=== PATIENT | male | born 1960 | race Caucasian/White ===

== ENCOUNTER 2017-12-07 15:10 | Emergency (ER) | payer MEDICAID, SELFPAY ==
[2017-12-07 15:11] VITALS: BP 118/90; PULSE 104; PULSE 105; RESP 26; TEMP 36.4; O2SAT 100; BMI 23.2
[2017-12-07 15:25] VITALS: O2SAT 100
--- NOTE | 2017-12-07 15:36 | EKG12_ITS ---
Test Reason : Blood Pressure : / mmHG Vent. Rate : 105 BPM Atrial Rate : 105 BPM P-R Int : 198 ms QRS Dur : 100 ms QT Int : 362 ms P-R-T Axes : 086 -60 105 degrees QTc Int : 478 ms Sinus tachycardia Left anterior fascicular block Septal infarct , age undetermined T wave abnormality, consider lateral ischemia Abnormal ECG Confirmed by PRETTY BARLOW, HIRA ([id number]), publications editor AMADOR EDMONDS ([id number] on 12/10/2017 2:58:57 PM Referred By: KG Confirmed By:HIRA OLSEN MD
--- NOTE | 2017-12-07 15:40 | RAD_ITS ---
STUDY: X-RAY CHEST REASON FOR EXAM: Male, 57 years old. Increasing shortness of breath and weakness. Recent discharge from hospital for pneumonia. Past medical history of atrial fibrillation, hypertension, myocardial infarction and COPD. TECHNIQUE: 1 view COMPARISON: Prior PA and lateral chest of October 17, 2016, portable chest of October 12, 2016 and September 25, 2016. FINDINGS: The lung crews are well-expanded without major consolidation, focal atelectasis or a substantial pleural effusion. Reduced pulmonary venous distention from the prior exam. Normal size heart. Normal mediastinum and alberto. Normal visualized pulmonary arteries. There is atherosclerotic calcification of the aortic arch with tortuosity. Normal visualized thoracic spine. Normal visualized ribs, clavicles, and shoulders. There is no demonstrated abnormality of the visualized soft tissue structures of the upper abdomen. RAD/Chest 1 View (Portable) IMPRESSION: Negative for consolidation, focal atelectasis or a substantial pleural effusion. Reduced cardiac size and venous congestion from the prior exam. Atherosclerotic changes of the thoracic aorta. Electronically Signed: Maria G Díaz MD at 16:12 EST , Service support ,
[2017-12-07 15:44] VITALS: O2SAT 100
--- NOTE | 2017-12-07 15:44 | ED.VISSUMM ---
- ER Visit Summary Date of Service: 12/07/17 Chief Complaint: Shortness of breath History of Present Illness: The patient is a 57 M significant past medical history of CAD with 10-15 cardiac stents prior [place] prior CHF ejection fraction of 15%, COPD normally on 3 L and a history of A. fib. Patient is from [place] and was just released from the hospital air within the last 2 weeks for CHF and pneumonia. He is supposed to get an upcoming defibrillator and has been wearing a LifeVest. Patient states he feels more short of breath. This is been coming the last several days. He denies any fevers. He denies any nausea or vomiting. No melena. He denies any chest pain. He has never had a DVT or PE. No new calf pain or leg swelling. He has chronic pedal edema. And has been increasing his Lasix recently. Physical Examination: Middle-aged male who smells heavily of tobacco. Vital signs are stable afebrile. Currently his pulse ox limb in the room without oxygen is 100%. He is in no distress. HEENT exam unremarkable. Neck nontender no JVD. No lymphadenopathy. Lungs coarse breath sounds bilaterally. Few scattered wheezes. No rales. No rhonchi. Heart regular rhythm rate about 105. No murmur. Abdomen is soft and nontender. Normal bowel sounds. No peritoneal signs. Moving all 4 extremities. He has trace bilateral ankle edema. No calf tenderness. No cords. Neurologically is awake and alert without focal deficits. Skin exam unremarkable. Back exam unremarkable. Test Results: CBC shows a white count of 6 an H&H of 9 and 33. His last hemoglobin here was 12 but that was sometime ago. He denies any melena. Electrolytes unremarkable normal BUN and creatinine and gap. Troponin is slightly elevated 0.09 but he is a history of a cardiomyopathy. His BNP is 807 consistent with mild failure. And his EKG sinus tachycardia rate of 105 with no acute signs of ischemia with T-wave inversion in lead V6. Currently have no old EKG available for comparison. Chest x-ray shows chronic changes with cardiomegaly and no significant acute processes of the mild vascular congestion read by myself the radiologist. Emergency Department Course and Treatment: Undergo a cardiac workup. To be treated with a DuoNeb aerosol Treatment Plan: Repeat exam patient is doing much better at 1850. His wheezing is resolved at the aerosols. I long discussion with the patient and his brother and [id number] at bedside. He absolutely does not want to be admitted. Currently on room air is 99-100%. Her a lot of social issues going on with his move from [place] to [place]. He is on [facility] Medicaid and that has been transferred over yet. Currently he needs a much of his meds refilled which are writing for many of them. There is also need to do a primary care physician in the area. He knows return to ER if worse and I gladly admit him. Disposition: Discharge Impression: Dyspnea secondary to exacerbation of COPD and CHF. Acute on chronic anemia. History of COPD History of the, [place], multiple cardiac stents, history of, history of cardiomyopathy. This note was generated with [employer] dictation software. It may contain incorrect words, spelling, and punctuation that were not noted in review of the chart prior to signing ED Disposition - Plan for ED Patient: Chief Complaint: Shortness of Breath Referrals: Care Physician,No Primary [Primary Care Provider] -
[2017-12-07 15:46] VITALS: PULSE 100; RESP 24
[2017-12-07] MEDS: Ipratropium/Albuterol Sulfate 3 ML AMPUL.NEB INHALATION (15:46)
--- NOTE | 2017-12-07 15:48 | ED.DCSUM_ITS ---
- ER Visit Summary Date of Service: 12/07/17 Chief Complaint: Shortness of breath History of Present Illness: The patient is a 57 M significant past medical history of CAD with 10-15 cardiac stents prior [place] prior CHF ejection fraction of 15%, COPD normally on 3 L and a history of A. fib. Patient is from [place] and was just released from the hospital air within the last 2 weeks for CHF and pneumonia. He is supposed to get an upcoming defibrillator and has been wearing a LifeVest. Patient states he feels more short of breath. This is been coming the last several days. He denies any fevers. He denies any nausea or vomiting. No melena. He denies any chest pain. He has never had a DVT or PE. No new calf pain or leg swelling. He has chronic pedal edema. And has been increasing his Lasix recently. Physical Examination: Middle-aged male who smells heavily of tobacco. Vital signs are stable afebrile. Currently his pulse ox limb in the room without oxygen is 100%. He is in no distress. HEENT exam unremarkable. Neck nontender no JVD. No lymphadenopathy. Lungs coarse breath sounds bilaterally. Few scattered wheezes. No rales. No rhonchi. Heart regular rhythm rate about 105. No murmur. Abdomen is soft and nontender. Normal bowel sounds. No peritoneal signs. Moving all 4 extremities. He has trace bilateral ankle edema. No calf tenderness. No cords. Neurologically is awake and alert without focal deficits. Skin exam unremarkable. Back exam unremarkable. Test Results: CBC shows a white count of 6 an H&H of 9 and 33. His last hemoglobin here was 12 but that was sometime ago. He denies any melena. Electrolytes unremarkable normal BUN and creatinine and gap. Troponin is slightly elevated 0.09 but he is a history of a cardiomyopathy. His BNP is 807 consistent with mild failure. And his EKG sinus tachycardia rate of 105 with no acute signs of ischemia with T-wave inversion in lead V6. Currently have no old EKG available for comparison. Chest x-ray shows chronic changes with cardiomegaly and no significant acute processes of the mild vascular congestion read by myself the radiologist. Emergency Department Course and Treatment: Undergo a cardiac workup. To be treated with a DuoNeb aerosol Treatment Plan: Repeat exam patient is doing much better at 1850. His wheezing is resolved at the aerosols. I long discussion with the patient and his brother and [id number] at bedside. He absolutely does not want to be admitted. Currently on room air is 99-100%. Her a lot of social issues going on with his move from [place] to [place]. He is on [facility] Medicaid and that has been transferred over yet. Currently he needs a much of his meds refilled which are writing for many of them. There is also need to do a primary care physician in the area. He knows return to ER if worse and I gladly admit him. Disposition: Discharge Impression: Dyspnea secondary to exacerbation of COPD and CHF. Acute on chronic anemia. History of COPD History of the, [place], multiple cardiac stents, history of, history of cardiomyopathy. This note was generated with [employer] dictation software. It may contain incorrect words, spelling, and punctuation that were not noted in review of the chart prior to signing ED Disposition - Plan for ED Patient: Chief Complaint: Shortness of Breath Referrals: Care Physician,No Primary [Primary Care Provider] -
--- NOTE | 2017-12-07 15:58 | ED.RN ---
pt from [place] unable to verify medications. does not have a list and family at bedside does not have list. pt just got into town on sunday
[2017-12-07 16:05] LABS: Absolute Lymphocyte Count 1.27 X10^3/ul (0.83-4.51); Absolute Neutrophil Count 3.8 X10^3/uL (2.0-7.7); Basophil# 0.04 X10^3/uL; Basophil% 0.7 % (0-1); Eosinophils% 3.3 % (0-5); Hematocrit 33.4 % (40-54); Hemoglobin 9.7 g/dl (13.0-16.5); Lymphocyte # 1.27 X10^3/ul (4.0); Lymphocyte % 21.2 % (19-41); Mean Corpuscular Hgb 21.7 pg (27.0-32.0); Mean Corpuscular Volume 74.6 fL (80-94); Mean Platelet Vol. 8.5 fl (6.2-12.0); Monocyte# 0.59 X10^3/uL; Monocyte% 9.9 % (0-10); Neutrophil # 3.83 X10^3/uL (2.7-7.7); Neutrophil % 64.1 % (47-70); POSITIVE COUNT NO; POSITIVE DIFFERENTIAL NO; Platelet Count 346 K/mm3 (150-450); RBC Distribution Width CV 20.1 % (11.6-14.6); RBC Distribution Width SD 54.9 fl (35.1-43.9); Red Blood Count 4.48 M/mm3 (4.6-6.2)
[2017-12-07 16:06] LABS: Differential Indicated SCAN CRITERIA MET; POSITIVE MORPHOLOGY YES
[2017-12-07 16:22] LABS: Anion Gap 6 (5-15); BUN 20 mg/dL (7-18); BUN/Creat Ratio 27.3 RATIO (10-20); Calcium,Total 8.3 mg/dL (8.5-10.1); Chloride 101 mmol/L (98-107); Creatinine, Serum 0.73 mg/dL (0.70-1.30); EST Glomerular Filtration Rate 116 mL/min (>60); Est Glom Filt Rate - Afr Amer 141 mL/min (>60); Estimated Creatinine Clearance 105.41 ml/min; Glucose 77 mg/dL (74-106); Potassium 5.1 mmol/L (3.5-5.1); Sodium Level 135 mmol/L (136-145)
[2017-12-07 16:25] LABS: Differential Comment SCANNED
[2017-12-07 16:33] LABS: BNP,B-Type NATRIURETIC PEPTIDE 807.7 pg/mL (0-100)
[2017-12-07 17:35] VITALS: BP 92/74; PULSE 108; RESP 20; O2SAT 98
--- NOTE | 2017-12-07 19:01 | ED.DEP ---
ED Disposition - Plan for ED Patient: Disposition: Home or Assisted Living Chief Complaint: Shortness of Breath Instructions: ED CHF General, ED COPD Flare Prescriptions: Albuterol Sulfate [Proventil Hfa] 6.7 gm IH Q2H PRN PRN #1 hfa.[email or web address] PRN Reason: Wheezing Potassium Chloride [K-Dur] 20 meq PO DAILY #30 tab Prednisone [Deltasone] 40 mg PO DAILY 10 Days tab Furosemide [Lasix] 40 mg PO BIDLX.TCU #60 tab Referrals: Ling Leal [NON-STAFF] - As soon as possible Additional Instructions: Has follow-up with primary care physician locally as soon as possible. Follow [facility] clinic across the street from the hospital in the clinic specifically set up with people financial need they may be of assistance. Also for free to call the hospital on Sunday and discuss with social services assistant any assistance he may be I will give you for getting your insurance transfer to getting her medications filled. Prednisone 40 mg a day for 10 days. Proventil inhaler 1-2 puffs every 2 hours as needed for wheezing. Lasix 40 mg twice a day. Return if feeling worse.
--- NOTE | 2017-12-07 19:06 | DCINST.ED_ITS ---
ED Disposition - Plan for ED Patient: Disposition: Home or Assisted Living Chief Complaint: Shortness of Breath Instructions: ED CHF General, ED COPD Flare Prescriptions: Albuterol Sulfate [Proventil Hfa] 6.7 gm IH Q2H PRN PRN #1 hfa.[email or web address] PRN Reason: Wheezing Potassium Chloride [K-Dur] 20 meq PO DAILY #30 tab Prednisone [Deltasone] 40 mg PO DAILY 10 Days tab Furosemide [Lasix] 40 mg PO BIDLX.TCU #60 tab Referrals: Ling Leal [NON-STAFF] - As soon as possible Additional Instructions: Has follow-up with primary care physician locally as soon as possible. Follow [facility] clinic across the street from the hospital in the clinic specifically set up with people financial need they may be of assistance. Also for free to call the hospital on Sunday and discuss with director of social work any assistance he may be I will give you for getting your insurance transfer to getting her medications filled. Prednisone 40 mg a day for 10 days. Proventil inhaler 1-2 puffs every 2 hours as needed for wheezing. Lasix 40 mg twice a day. Return if feeling worse.
[2017-12-07 19:14] VITALS: BP 116/86; PULSE 104; RESP 18; O2SAT 97
--- NOTE | 2017-12-07 20:37 | ED.RN ---
prior to international first officer verified with dr. day if oxygen was needed tonight, was unaware if pt could get d/t medical insurance. pt wanting to check tomorrow not tonight. dr. day aware
== END 2017-12-07 19:14 | disposition home or self-care (01) ==
PROVIDERS: Emergency Provider Emergency Medicine
DX: R06.00 Dyspnea, unspecified (principal); J44.1 Chronic obstructive pulmonary disease with (acute) exacerbation; I50.9 Heart failure, unspecified; D53.9 Nutritional anemia, unspecified; I25.2 Old myocardial infarction; I42.9 Cardiomyopathy, unspecified; I25.10 Atherosclerotic heart disease of native coronary artery without angina pectoris; I48.91 Unspecified atrial fibrillation; I10 Essential (primary) hypertension; Z95.5 Presence of coronary angioplasty implant and graft; Z87.01 Personal history of pneumonia (recurrent); F17.200 Nicotine dependence, unspecified, uncomplicated; Z79.82 Long term (current) use of aspirin; Z79.02 Long term (current) use of antithrombotics/antiplatelets; Z79.899 Other long term (current) drug therapy
CPT/HCPCS: 71045; 80048; 83880; 84484; 85025; 93005; 94640; 99284; A4216

== ENCOUNTER 2017-12-10 22:56 | Observation (INO) | payer MEDICAID, SELFPAY ==
[2017-12-10 22:57] VITALS: BP 158/95; PULSE 111; RESP 28; TEMP 36.5; O2SAT 100; BMI 26.4
--- NOTE | 2017-12-10 23:02 | EKG12_ITS ---
Test Reason : SHORTNESS OF BREATH Blood Pressure : / mmHG Vent. Rate : 112 BPM Atrial Rate : 112 BPM P-R Int : 182 ms QRS Dur : 100 ms QT Int : 356 ms P-R-T Axes : 075 -55 116 degrees QTc Int : 485 ms Sinus tachycardia Left axis deviation Septal infarct , age undetermined T wave abnormality, consider lateral ischemia Abnormal ECG Confirmed by PRETTY BARLOW, HIRA ([id number]), science editor AMADOR EDMODNS ([id number]) on 12/12/2017 3:36:16 PM Referred By: VASILE Confirmed By:HIRA OLSEN MD
--- NOTE | 2017-12-10 23:05 | RAD_ITS ---
STUDY: X-RAY CHEST REASON FOR EXAM: Male, 57 years old. Respiratory distress. TECHNIQUE: Single AP portable view of the chest. COMPARISON: 07 December 2017 FINDINGS: Chronic interstitial markings are present extending to the bases. No focal consolidation is evident. There is no demonstrated pleural abnormality. There is borderline cardiomegaly. Normal mediastinum and alberto. Normal visualized pulmonary arteries. There is atherosclerotic calcification of the aortic arch with tortuosity. Normal visualized thoracic spine. Normal visualized ribs, clavicles, and shoulders. There is no demonstrated abnormality of the visualized soft tissue structures of the upper abdomen. RAD/Chest 1 View (Portable) IMPRESSION: No evidence of focal consolidation or acute process. Electronically Signed: Noel Saha DO at 23:23 EDT , Service support ,
[2017-12-10 23:14] LABS: Absolute Lymphocyte Count 0.56 X10^3/ul (0.83-4.51); Absolute Neutrophil Count 7.2 X10^3/uL (2.0-7.7); Basophil# 0.04 X10^3/uL; Basophil% 0.5 % (0-1); Eosinophil# 0.02 X10^3/uL; Eosinophils% 0.2 % (0-5); Hematocrit 31.9 % (40-54); Hemoglobin 9.3 g/dl (13.0-16.5); Lymphocyte # 0.56 X10^3/ul (4.0); Lymphocyte % 6.9 % (19-41); Mean Corp Hgb Conc 29.2 g/gl (32-36); Mean Corpuscular Hgb 21.7 pg (27.0-32.0); Mean Corpuscular Volume 74.5 fL (80-94); Mean Platelet Vol. 8.4 fl (6.2-12.0); Monocyte# 0.32 X10^3/uL; Monocyte% 3.9 % (0-10); Neutrophil # 7.17 X10^3/uL (2.7-7.7); Platelet Count 371 K/mm3 (150-450); RBC Distribution Width SD 54.2 fl (35.1-43.9); Red Blood Count 4.28 M/mm3 (4.6-6.2); White Blood Count 8.2 K/mm3 (4.4-11.0)
[2017-12-10 23:16] LABS: International Normalized Ratio 1.2; Prothrombin Time (Protime)PT. 15.2 SECONDS (11.7-14.9)
[2017-12-10 23:18] LABS: Differential Indicated SCAN CRITERIA MET; POSITIVE COUNT NO; POSITIVE DIFFERENTIAL YES; POSITIVE MORPHOLOGY YES
[2017-12-10 23:25] LABS: Anion Gap 9 (5-15); BUN 17 mg/dL (7-18); BUN/Creat Ratio 26.9 RATIO (10-20); Calcium,Total 8.6 mg/dL (8.5-10.1); Chloride 105 mmol/L (98-107); Creatinine, Serum 0.63 mg/dL (0.70-1.30); EST Glomerular Filtration Rate 138 mL/min (>60); Est Glom Filt Rate - Afr Amer 167 mL/min (>60); Estimated Creatinine Clearance 134.46 ml/min; Glucose 117 mg/dL (74-106); Sodium Level 136 mmol/L (136-145)
[2017-12-10 23:30] LABS: Allen Test POS; Base Excess 2 mmol/L (-2 to +2); Bicarbonate 25.6 mmol/L (22-26); Blood Gas Specimen Type ART; EPAP 5; FI02 2317; IPAP 14; PO2 138 mmHG (75-100); RR 12; SITE R Radial; SO2 99 % (95-99); Time Given 2317; Total Carbon Dioxide 27 mmol/L; pCO2 32.7 mmHg (35-45)
[2017-12-10 23:36] LABS: Anisocytosis 2+; Differential Comment SCAN; Hypochromasia 1+; Microcytosis 1+; Polychromasia 1+
[2017-12-10] MEDS: Succinylcholine Chloride 200 MG/10 ML Vial 100 MG IV (23:37)
[2017-12-10] MEDS: Etomidate 20 MG/10 ML Vial IV (23:37)
[2017-12-10 23:47] LABS: BNP,B-Type NATRIURETIC PEPTIDE 1576.8 pg/mL (0-100)
[2017-12-10] MEDS: Propofol 10MG/Ml 1,000 MG/100 ML Bottle 2.585 MG CONT INF (23:47)
[2017-12-10 23:48] LABS: Lactic Acid 1.6 mmol/L (0.4-2.0)
[2017-12-10] MEDS: Midazolam 2 MG/2 ML Syringe IV (23:57)
[2017-12-11] VITALS (56 sets, daily range): BP systolic 91–150; BP diastolic 58–139; PULSE 80–118; RESP 13–33; TEMP 36.2–37.2; O2SAT 99–100; BMI 20.5
--- NOTE | 2017-12-11 00:01 | RAD_ITS ---
STUDY: X-RAY CHEST REASON FOR EXAM: Male, 57 years old. ET and OG tube placement TECHNIQUE: Single AP portable view of the chest. COMPARISON: 12/10 2017 chest x-ray FINDINGS: There is an endotracheal tube present through 0.5 cm above the zoraida and there is an NG tube present just past the gastroesophageal junction. The lungs are clear and expanded. There is no demonstrated pleural abnormality. There is mild cardiac enlargement. Normal mediastinum and alberto. Normal visualized pulmonary arteries. There is atherosclerotic tortuosity of the aortic arch and descending thoracic aorta. There are diffuse degenerative changes of the visualized thoracic spine. Normal visualized ribs, clavicles, and shoulders. There is no demonstrated abnormality of the visualized soft tissue structures of the upper abdomen. RAD/Chest 1 View (Portable) IMPRESSION: The NG tube is just past the gastroesophageal junction and could be advanced 5 to 10 cm. Endotracheal tube in satisfactory position. Cardiomegaly. Electronically Signed: Elizabeth Welsh MD at 1:01 EDT Tel , Service support ,
[2017-12-11] MEDS: Midazolam 2 MG/2 ML Syringe IV (00:15)
[2017-12-11] MEDS: Furosemide 40 MG/4 ML Vial IV ×3 (00:19→17:42)
[2017-12-11] MEDS: MethylPREDNISolone 125 MG/2 ML Vial IV (00:19)
--- NOTE | 2017-12-11 01:25 | PCM.HP.STD ---
Problem List (1) SOB (shortness of breath) Status: Acute (2) CHF (congestive heart failure) Status: Chronic Qualifiers: Heart failure type: unspecified (3) CAD (coronary artery disease) Status: Chronic (4) COPD (chronic obstructive pulmonary disease) Status: Acute Qualifiers: COPD type: COPD with acute exacerbation Qualified Code(s): J44.1 - Chronic obstructive pulmonary disease with (acute) exacerbation (5) Tobacco abuse Status: Chronic (6) Medical non-compliance Status: Chronic History of Present Illness Date of Admission: 12/11/17 Chief Complaint: shortness of breath The patient is a 57 year old male patient with a history of COPD, CHF, CAD and tobacco abuse who presents to the ER by squad. It is reported that his family member found him to be in respiratory distress. The patient had been seen in the ER three days ago and was to have home oxygen setup but apparently this did not happen. The patient is sedated and intubated and all history I have is from medical records. He was working hard to breath and becoming fatigued and the ER physician decided to intubate the patient. He will be admitted to the ICU for acute respiratory failure. Prior to intubation is was reported by nursing staff that the patient had been answering questions appropriately, although he was getting more tired. Past Medical History Past Medical History (Chronic Problems): Chronic Problems CHF (congestive heart failure) (Chronic) CAD (coronary artery disease) (Chronic) Tobacco abuse (Chronic) Medical non-compliance (Chronic) Ischemic cardiomyopathy (Chronic) Allergies No Known Allergies Allergy (Verified 12/10/17 23:03) Home Medications: Ambulatory Orders Medication Instructions Recorded Acetaminophen [Tylenol Tablet] 650 mg PO Q6H PRN PRN #0 tablet 09/26/16 Albuterol Aerosols [Ventolin 2.5 mg INHALATION Q2H PRN PRN #30 09/26/16 Aerosols] vial.neb. Albuterol Sulfate [Ventolin Hfa] 18 gm IH Q4H PRN PRN #1 hfa.aer.ad 09/26/16 Amlodipine [Norvasc] 5 mg PO DAILY #30 tablet 09/26/16 Aspirin [Aspirin, Baby] 81 mg PO DAILY@0800 #30 tab.chew 09/26/16 Atorvastatin Calcium [Lipitor] 80 mg PO QHS #30 tablet 12/27/16 Carvedilol [Coreg (Beta Fletcher)] 6.25 mg PO BID #60 tablet 09/26/16 Clopidogrel Bisulfate [Plavix] 75 mg PO DAILY #30 tablet 09/26/16 Furosemide [Lasix] 40 mg PO DAILY #30 tablet 09/26/16 Gabapentin [Neurontin] 600 mg PO DAILY #30 tablet 09/26/16 Isosorbide Mononitrate [Imdur] 60 mg PO BID #60 tablet 09/26/16 Losartan Potassium [Cozaar] 25 mg PO DAILY #30 tablet 09/26/16 Potassium Chloride [K-Dur] 20 meq PO DAILY #10 tablet 09/26/16 Levofloxacin [Levaquin] 750 mg PO DAILY@0600 #5 tablet 10/20/16 Albuterol Sulfate [Proventil Hfa] 6.7 gm IH Q2H PRN PRN #1 hfa.aer.ad 12/07/17 Furosemide [Lasix] 40 mg PO BIDLX.TCU #60 tab 12/07/17 Potassium Chloride [K-Dur] 20 meq PO DAILY #30 tab 12/07/17 Prednisone [Deltasone] 40 mg PO DAILY 10 Days tab 12/07/17 Surgical History: - - heart stents Smoking Status: Current every day smoker - *Family History Maternal History Items: Heart Disease Paternal History Items: Heart Disease Review of Systems Cardiovascular: Denies: Palpitations Respiratory: Reports: Shortness of breath at rest Gastrointestinal: Denies: Vomiting Unable to obtain accurate/complete ROS d/t: patient is sedated and intubated and unable to give a history VTE Information - Inpt Only VTE Present on Admission: No VTE Mechan Device Prophylaxis: None VTE Pharm Prophylaxis ordered?: Yes - Physical Exam General: - - sedated and intubated HEENT: Atraumatic, Normocephalic Neck: Supple Lungs: No rhonchi, No wheeze, No rales, Diminished Cardiovascular: Regular rate, Regular Rhythm, Normal S1, Normal S2, No murmurs Abdomen: Bowel Sounds Present, Soft Extremities: No edema Skin: No rashes Musculoskeletal: No Tenderness to Palpation of Joints or Extremities Vital Signs Temp Pulse Resp BP Pulse Ox 98.9 F 101 H 23 H 114/74 100 12/11/17 00:46 12/11/17 00:46 12/11/17 00:46 12/11/17 00:46 12/11/17 00:46 Oxygen Delivery Method Mechanical Ventilator Weight: 190 lb Body Mass Index (BMI) 26.4 Microbiology Past 72 Hours 12/11/17 00:54 Influenza Types A,B Direct FA (SHARON) - Final Mucosa - Nasopharyngeal Laboratory Tests Past 24 Hrs 12/10/17 12/10/17 12/10/17 23:00 23:00 23:00 WBC 8.2 RBC 4.28 L Hgb 9.3 L Hct 31.9 L MCV 74.5 L MCH 21.7 L MCHC 29.2 L RDW 20.0 H RDW Differential 54.2 H Plt Count 371 MPV 8.4 Immature Gran % (Auto) 0.500 Neut % (Auto) 88.0 H Lymph % (Auto) 6.9 L Stoddard % (Auto) 3.9 Eos % (Auto) 0.2 Baso % (Auto) 0.5 Absolute Neuts (auto) 7.2 Absolute Lymphs (auto) 0.56 L Total Counted Not Reportable Differential Comment SCAN Polychromasia 1+ Hypochromasia 1+ Anisocytosis 2+ Microcytosis 1+ PT 15.2 H INR 1.2 Specimen Type Sample Site pH Bicarbonate Actual POC Total CO2 Base Excess O2 Saturation O2 % ABG pCO2 ABG pO2 Alexis Test Respiration Rate O2 Delivery Device EPAP IPAP Blood Gas Notified Whom Blood Gas Notified Time Sodium 136 Potassium 5.0 Chloride 105 Carbon Dioxide 22.0 Anion Gap 9 BUN 17 Creatinine 0.63 L Estim Creat Clear Calc 134.46 Est GFR (MDRD) Af Amer 167 Est GFR (MDRD) Non-Af 138 BUN/Creatinine Ratio 26.9 H Glucose 117 H Lactic Acid Calcium 8.6 Troponin I 0.08 H B-Natriuretic Peptide 12/10/17 12/10/17 12/10/17 23:00 23:10 23:28 WBC RBC Hgb Hct MCV MCH MCHC RDW RDW Differential Plt Count MPV Immature Gran % (Auto) Neut % (Auto) Lymph % (Auto) Stoddard % (Auto) Eos % (Auto) Baso % (Auto) Absolute Neuts (auto) Absolute Lymphs (auto) Total Counted Differential Comment Polychromasia Hypochromasia Anisocytosis Microcytosis PT INR Specimen Type ART Sample Site R Radial pH 7.50 H Bicarbonate Actual 25.6 POC Total CO2 27 Base Excess 2 O2 Saturation 99 O2 % 2317 ABG pCO2 32.7 L ABG pO2 138 H Alexis Test POS Respiration Rate 12 O2 Delivery Device Bi / C PAP EPAP 5 IPAP 14 Blood Gas Notified Whom ED Blood Gas Notified Time 231 Sodium Potassium Chloride Carbon Dioxide Anion Gap BUN Creatinine Estim Creat Clear Calc Est GFR (MDRD) Af Amer Est GFR (MDRD) Non-Af BUN/Creatinine Ratio Glucose Lactic Acid 1.6 Calcium Troponin I B-Natriuretic Peptide 1576.8 H Assessment/Plan Acute Respiratory Failure Chronic Problems CHF (congestive heart failure) (Chronic) CAD (coronary artery disease) (Chronic) COPD (chronic obstructive pulmonary disease) (Chronic) Tobacco abuse (Chronic) Medical non-compliance (Chronic) Ischemic cardiomyopathy (Chronic) Plan - admit to ICU - Consult Dr Ahmadi for ICU management - CBC, BMP in am - solumedrol 40mg IV q 8hrs - cxr daily while on vent - IV normal saline at 100 cc/hr - LMWH for DVT prophylaxis Code Visit Inpatient E&M: 51307 Init Hosp L3
--- NOTE | 2017-12-11 02:06 | ED.VISSUMM ---
- ER Visit Summary Date of Service: 12/11/17 Chief Complaint: Shortness of breath History of Present Illness: The patient is a 57 M presenting by EMS for shortness of breath. EMS was called by his brother for respiratory distress. He is supposed to be on home O2 3 L. He states that his insurance has not kicked in he does not have an oxygen tank. He has a history of COPD, CHF, cardiomyopathy, A. fib. He is a smoker. He denies chest pain or fever. Physical Examination: Vitals are stable. Patient is afebrile. Alert moderate acute distress. HEENT exam is unremarkable. Neck is supple. Lungs are diminished bilaterally. Retractions and accessory muscle use. Heart is regular and tachycardic Abdomen is soft nontender nondistended. Extremities are unremarkable. Skin is warm and dry. No focal neurologic deficit. Remainder of exam is unremarkable. Emergency Department Course and Treatment: Patient on arrival was on CPAP per EMS. He was changed to BiPAP. He continues to have increased work of breathing and tachypnea. Chest x-ray shows no acute process. EKG sinus tachycardia rate of 112 with lateral T-wave inversion. CBC normal except hemoglobin 9.3. Chemistries unremarkable. Troponin is 0.08. BNP is 1576.8. Lactic acid is 1.6. Due to respiratory distress with no improvement with noninvasive ventilation, discussed intubation with the patient. He is agreeable with this plan. He was intubated using RSI. He was given succinylcholine and etomidate. 7.5 ET tube was placed through the cords using glidscope. Equal breath sounds bilaterally. Good color change. He was given Lasix IV and Solu-Medrol IV. Discussed with Dr. Ahmadi and Dr. Henry and patient will be admitted to ICU. Disposition: Admission Impression: Respiratory failure, CHF exacerbation, COPD exacerbation This note was generated with [employer] dictation software. It may contain incorrect words, spelling, and punctuation that were not noted in review of the chart prior to signing ED Disposition - Plan for ED Patient: Chief Complaint: Shortness of Breath
[2017-12-11] MEDS: Propofol 10MG/Ml 1,000 MG/100 ML Bottle 2.585 MG CONT INF ×4 (02:43→22:57)
--- NOTE | 2017-12-11 03:07 | ED.RN ---
pt brother called [facility] for pt. name is cheli. phone number is [phone].
--- NOTE | 2017-12-11 04:55 | CON.PCM_ITS ---
Reason for Consult Date of Consultation: 12/11/17 Reason for Consultation: Respiratory failure History of Present Illness: The patient is a 57-year-old male, with a history as outlined below, who presented to the emergency department on December 11 with complaints of shortness of breath. Per documentation, EMS was contacted after the patient was found to be in respiratory distress by his brother. The patient is reportedly prescribed home supplemental oxygen, but is currently noncompliant with its use due to a lack of insurance coverage. The patient was just evaluated in the emergency department on December 07 after presenting there with shortness of breath also. At that time, the patient was treated with aerosols and noted symptom improvement. It was recommended that he be admitted to the hospital. However, the patient refused. The patient was also hospitalized twice in October 2016 with breathing related issues. Surface echocardiogram completed in August 2016 revealed a mildly dilated LV with severe segmental systolic dysfunction and an ejection fraction of 15%. The patient did have evidence of a left to right interatrial shunt and a right ventricular systolic pressure estimated to be 39 mmHg. On presentation to the emergency department, the patient was noted to be afebrile, tachycardic and mildly hypertensive. He was tachypneic and requiring the use of noninvasive positive pressure ventilation. Initial laboratory evaluation revealed no evidence of a leukocytosis. INR was within normal limits. Chemistry profile was largely within normal limits. Serum lactate was normal. Troponin was mildly elevated to 0.08. BNP was elevated to 1576. MRSA screen was positive. Despite the implementation of BiPAP therapy, the patient remained in respiratory distress. Therefore, the decision was made to proceed with intubation. Plain film chest x-ray revealed no acute cardiopulmonary process. The patient did receive IV Lasix and IV Solu-Medrol while in the emergency department. He was subsequently admitted to the medical intensive care unit for ongoing management. Per the patient's brother, the patient has a history of ischemic cardiomyopathy and was following with a campaign consultant in [place], who has since retired. He has not been routinely followed by a campaign consultant recently. He has been traveling back and forth from [place] to [place], where his brother resides. His brother states that he was discharged from a hospital in [place] 10 days ago and then traveled here to [place], where he plans to stay indefinitely. The patient does have a reported history of tobacco abuse, questionable illicit drug use and a history of alcohol dependence. He has been inherently noncompliant previously. Past Medical History Past Medical History (Chronic Problems): Chronic Problems CHF (congestive heart failure) (Chronic) CAD (coronary artery disease) (Chronic) Tobacco abuse (Chronic) Medical non-compliance (Chronic) Ischemic cardiomyopathy (Chronic) Allergies No Known Allergies Allergy (Verified 12/10/17 23:03) Home Medications: Ambulatory Orders Medication Instructions Recorded Acetaminophen [Tylenol Tablet] 650 mg PO Q6H PRN PRN #0 tablet 09/26/16 Albuterol Aerosols [Ventolin 2.5 mg INHALATION Q2H PRN PRN #30 09/26/16 Aerosols] vial.neb. Albuterol Sulfate [Ventolin Hfa] 18 gm IH Q4H PRN PRN #1 hfa.[email or web address] 09/26/16 Amlodipine [Norvasc] 5 mg PO DAILY #30 tablet 09/26/16 Aspirin [Aspirin, Baby] 81 mg PO DAILY@0800 #30 tab.chew 09/26/16 Atorvastatin Calcium [Lipitor] 80 mg PO QHS #30 tablet 09/26/16 Carvedilol [Coreg (Beta Fletcher)] 6.25 mg PO BID #60 tablet 09/26/16 Clopidogrel Bisulfate [Plavix] 75 mg PO DAILY #30 tablet 09/26/16 Furosemide [Lasix] 40 mg PO DAILY #30 tablet 09/26/16 Gabapentin [Neurontin] 600 mg PO DAILY #30 tablet 09/26/16 Isosorbide Mononitrate [Imdur] 60 mg PO BID #60 tablet 09/26/16 Losartan Potassium [Cozaar] 25 mg PO DAILY #30 tablet 09/26/16 Potassium Chloride [K-Dur] 20 meq PO DAILY #10 tablet 09/26/16 Levofloxacin [Levaquin] 750 mg PO DAILY@0600 #5 tablet 10/20/16 Albuterol Sulfate [Proventil Hfa] 6.7 gm IH Q2H PRN PRN #1 hfa.aer.ad 12/07/17 Furosemide [Lasix] 40 mg PO BIDLX.TCU #60 tab 12/07/17 Potassium Chloride [K-Dur] 20 meq PO DAILY #30 tab 12/07/17 Prednisone [Deltasone] 40 mg PO DAILY 10 Days tab 12/07/17 Surgical History: - - heart stents Smoking Status: Current every day smoker - *Family History Maternal History Items: Heart Disease Paternal History Items: Heart Disease Review of Systems Unable to obtain accurate/complete ROS d/t: Due to current intubation and mechanical ventilation status Objective: The patient's most recent lab work, culture data and imaging studies have all been personally reviewed. Rapid influenza screen was negative. - Physical Exam General: - - Currently intubated, sedated and mechanically ventilated. Tolerating assist control mode mechanical ventilation. HEENT: Atraumatic, PERRLA, Normocephalic Oral: No Gingival or Mucosal Lesions/ Ulcerations, - - Endotracheal and OG tubes in place Neck: Supple, No Nodes, Trachea Midline Lungs: - - Mechanical breath sounds. Clear across anterior lung crews without wheezes, rales or rhonchi. Cardiovascular: Regular rate, Regular Rhythm, Normal S1, Normal S2, No murmurs, No rub noted, No Gallop Abdomen: Bowel Sounds Present, Soft, Non Tender, Non-Distended Extremities: No clubbing, No cyanosis, No edema Skin: No rashes, No breakdown Musculoskeletal: No Muscle Wasting Lymphatic: No Cervical, Supraclavicular, or Inguinal Adenopathy Neurological: - - Currently sedated with a RASS of -2. Moves all extremities spontaneously. Not following simple commands at this time. Vital Signs Temp Pulse Resp BP Pulse Ox 97.4 F L 96 20 H 128/85 H 100 12/11/17 04:43 12/11/17 04:43 12/11/17 04:43 12/11/17 04:43 12/11/17 04:43 Oxygen Delivery Method Mechanical Ventilator Weight: 146 lb 2.664 oz Body Mass Index (BMI) 20.5 Intake and Output for Last 24 Hours 12/09/17 12/10/17 12/11/17 23:59 23:59 23:59 Output Total 1900 / 1900 Balance -1900 / -1900 Laboratory Tests Past 24 Hrs 12/11/17 03:35 MRSA (PCR) Pending Labs (Last 48 Hours) 12/10/17 12/10/17 12/10/17 23:00 23:00 23:00 WBC 8.2 RBC 4.28 L Hgb 9.3 L Hct 31.9 L MCV 74.5 L MCH 21.7 L MCHC 29.2 L RDW 20.0 H RDW Differential 54.2 H Plt Count 371 MPV 8.4 Immature Gran % (Auto) 0.500 Neut % (Auto) 88.0 H Lymph % (Auto) 6.9 L Win[place] % (Auto) 3.9 Eos % (Auto) 0.2 Baso % (Auto) 0.5 Absolute Neuts (auto) 7.2 Absolute Lymphs (auto) 0.56 L Total Counted Not Reportable Differential Comment SCAN Polychromasia 1+ Hypochromasia 1+ Anisocytosis 2+ Microcytosis 1+ PT 15.2 H INR 1.2 Specimen Type Sample Site pH Bicarbonate Actual POC Total CO2 Base Excess O2 Saturation O2 % ABG pCO2 ABG pO2 Alexis Test Respiration Rate O2 Delivery Device Minute Volume Vent Mode Tidal Volume POC PEEP EPAP IPAP Blood Gas Notified Whom Blood Gas Notified Time Sodium 136 Potassium 5.0 Chloride 105 Carbon Dioxide 22.0 Anion Gap 9 BUN 17 Creatinine 0.63 L Estim Creat Clear Calc 134.46 Est GFR (MDRD) Af Amer 167 Est GFR (MDRD) Non-Af 138 BUN/Creatinine Ratio 26.9 H Glucose 117 H Lactic Acid Calcium 8.6 Magnesium Total Bilirubin AST ALT Alkaline Phosphatase Troponin I 0.08 H B-Natriuretic Peptide Total Protein Albumin MRSA (PCR) 12/10/17 12/10/17 12/10/17 23:00 23:10 23:28 WBC RBC Hgb Hct MCV MCH MCHC RDW RDW Differential Plt Count MPV Immature Gran % (Auto) Neut % (Auto) Lymph % (Auto) Win[place] % (Auto) Eos % (Auto) Baso % (Auto) Absolute Neuts (auto) Absolute Lymphs (auto) Total Counted Differential Comment Polychromasia Hypochromasia Anisocytosis Microcytosis PT INR Specimen Type ART Sample Site R Radial pH 7.50 H Bicarbonate Actual 25.6 POC Total CO2 27 Base Excess 2 O2 Saturation 99 O2 % 2317 ABG pCO2 32.7 L ABG pO2 138 H Alexis Test POS Respiration Rate 12 O2 Delivery Device Bi / C PAP Minute Volume Vent Mode Tidal Volume POC PEEP EPAP 5 IPAP 14 Blood Gas Notified Whom ED Blood Gas Notified Time 2317 Sodium Potassium Chloride Carbon Dioxide Anion Gap BUN Creatinine Estim Creat Clear Calc Est GFR (MDRD) Af Amer Est GFR (MDRD) Non-Af BUN/Creatinine Ratio Glucose Lactic Acid 1.6 Calcium Magnesium Total Bilirubin AST ALT Alkaline Phosphatase Troponin I B-Natriuretic Peptide 1576.8 H Total Protein Albumin MRSA (PCR) 12/11/17 12/11/17 12/11/17 03:35 05:50 05:50 WBC RBC Hgb Hct MCV MCH MCHC RDW RDW Differential Plt Count MPV Immature Gran % (Auto) Neut % (Auto) Lymph % (Auto) [place] % (Auto) Eos % (Auto) Baso % (Auto) Absolute Neuts (auto) Absolute Lymphs (auto) Total Counted Differential Comment Polychromasia Hypochromasia Anisocytosis Microcytosis PT INR Specimen Type Sample Site pH Bicarbonate Actual POC Total CO2 Base Excess O2 Saturation O2 % ABG pCO2 ABG pO2 Alexis Test Respiration Rate O2 Delivery Device Minute Volume Vent Mode Tidal Volume POC PEEP EPAP IPAP Blood Gas Notified Whom Blood Gas Notified Time Sodium Pending 139 Potassium Pending 4.2 Chloride Pending 103 Carbon Dioxide Pending 26.0 Anion Gap Pending 10 BUN Pending 21 H Creatinine Pending 0.61 L Estim Creat Clear Calc 122.27 Est GFR (MDRD) Af Amer Pending 173 Est GFR (MDRD) Non-Af Pending 143 BUN/Creatinine Ratio Pending 34.3 H Glucose Pending 143 H Lactic Acid Calcium Pending 8.5 Magnesium 2.1 Total Bilirubin Pending AST Pending ALT Pending Alkaline Phosphatase Pending Troponin I Pending B-Natriuretic Peptide Total Protein Pending Albumin Pending MRSA (PCR) POSITIVE H 12/11/17 12/11/17 05:50 06:11 WBC 6.3 RBC 4.17 L Hgb 9.2 L Hct 30.8 L MCV 73.9 L MCH 22.1 L MCHC 29.9 L RDW 20.1 H RDW Differential 52.6 H Plt Count 403 MPV 8.7 Immature Gran % (Auto) 0.500 Neut % (Auto) 91.6 H Lymph % (Auto) 6.7 L Win[place] % (Auto) 1.0 Eos % (Auto) 0.0 Baso % (Auto) 0.2 Absolute Neuts (auto) 5.8 Absolute Lymphs (auto) 0.42 L Total Counted Not Reportable Differential Comment SCAN Polychromasia 1+ Hypochromasia 1+ Anisocytosis 1+ Microcytosis 1+ PT INR Specimen Type ART Sample Site R Radial pH 7.46 H Bicarbonate Actual 28.5 H POC Total CO2 30 Base Excess 5 H O2 Saturation 100 H O2 % 40 ABG pCO2 40.3 ABG pO2 187 H Alxeis Test Respiration Rate 14 O2 Delivery Device Vent Minute Volume 10.00 Vent Mode A-C Tidal Volume 500 POC PEEP 5 EPAP IPAP Blood Gas Notified Whom HOSP Blood Gas Notified Time 605 Sodium Potassium Chloride Carbon Dioxide Anion Gap BUN Creatinine Estim Creat Clear Calc Est GFR (MDRD) Af Amer Est GFR (MDRD) Non-Af BUN/Creatinine Ratio Glucose Lactic Acid Calcium Magnesium Total Bilirubin AST ALT Alkaline Phosphatase Troponin I B-Natriuretic Peptide Total Protein Albumin MRSA (PCR) Microbiology 12/11/17 00:54 Mucosa - Nasopharyngeal Influenza Types A,B Direct FA (SHARON) - Final Clinical Impression(s) from Imaging Studies Chest X-Ray 12/10/17 23:05 IMPRESSION: No evidence of focal consolidation or acute process. Electronically Signed: Noel Saha DO at 23:23 EDT , Service support , Chest X-Ray 12/11/17 00:01 IMPRESSION: The NG tube is just past the gastroesophageal junction and could be advanced 5 to 10 cm. Endotracheal tube in satisfactory position. Cardiomegaly. Electronically Signed: Elizabeth Welsh MD at 1:01 EDT Tel , Service support , Assessment/Plan RECOMMENDATIONS: 1. Continue supportive measures with mechanical ventilation. Plan for daily. Spontaneous awakening and breathing trials. 2. Continue scheduled aerosol treatments and steroids. 3. Discontinue supplemental IV fluids 4. Restart home cardiac medications 5. Trend troponins and obtain echocardiogram. Cardiology consultation is pending. 6. Continue propofol and fentanyl for sedation. Goal RASS of -1 to 1. 7. Obtain sputum culture and respiratory viral panel. 8. Okay to start tube feeds today. 9. Continue appropriate ICU prophylaxis with Pepcid and Lovenox IMPRESSIONS: 1. Acute on chronic hypoxemic respiratory failure likely secondary to decompensated heart failure Continue current supportive measures with mechanical ventilation. Wean FiO2 to maintain oxygen saturations 88-92%. Plan to continue IV diuretics as ordered. Cardiology is following to assist with medical management. Plan for daily paired spontaneous awakening and breathing trials. Continue fentanyl and propofol for sedation. Goal RASS of -1 to 1. Okay to start tube feeds. Continue appropriate ICU prophylaxis. 2. Severe ischemic cardiomyopathy/troponin elevation As above, will continue diuretics, beta-fletcher and ARB. Will attempt to obtain outside cardiac medical records from [place]. Repeat echocardiogram is pending. Cardiology is following accordingly. 3. Questionable COPD of unknown severity/tobacco dependence This is a presumptive diagnosis, as there are no PFTs on file for review. We will plan to continue scheduled aerosol treatments as ordered, along with IV Solu-Medrol. The patient can likely be transitioned to prednisone beginning tomorrow. Outpatient pulmonary follow-up and PFTs are strongly recommended. Smoking cessation is strongly advisable. Nicotine replacement therapy can be offered to the patient while he is admitted to the hospital. 4. Microcytic anemia/history of alcohol abuse/suspected illicit drug use Complicates care, management, recovery and prognosis. Continue supportive measures as noted above. Iron studies are pending. Recommend physical therapy evaluation, once medically stabilized. TIME: 55 minutes of critical care time, independent of procedures, was spent addressing the patient's acute on chronic respiratory failure, decompensated heart failure, severe ischemic cardiomyopathy, troponin elevation, baseline COPD , review of all data and collaboration with the care team. ([id number]) Code Visit 9xxxx: [id number] Critical care first hour
[2017-12-11] MEDS: 0.9% Normal Saline 1,000 ML 100 ML IV (05:08)
[2017-12-11] MEDS: CHLORHEXIDINE GLUC 2% CLOTH 1 EACH TOWELETTE TOPICAL (05:09)
[2017-12-11 05:34] LABS: Probe Check PASS
[2017-12-11 05:35] LABS: M R Staph aureus DNA By PCR POSITIVE (Negative)
[2017-12-11 06:08] LABS: Absolute Lymphocyte Count 0.42 X10^3/ul (0.83-4.51); Absolute Neutrophil Count 5.8 X10^3/uL (2.0-7.7); Basophil# 0.01 X10^3/uL; Basophil% 0.2 % (0-1); Hematocrit 30.8 % (40-54); Hemoglobin 9.2 g/dl (13.0-16.5); Lymphocyte # 0.42 X10^3/ul (4.0); Lymphocyte % 6.7 % (19-41); Mean Corp Hgb Conc 29.9 g/gl (32-36); Mean Corpuscular Hgb 22.1 pg (27.0-32.0); Mean Corpuscular Volume 73.9 fL (80-94); Mean Platelet Vol. 8.7 fl (6.2-12.0); Monocyte# 0.06 X10^3/uL; Neutrophil # 5.77 X10^3/uL (2.7-7.7); Neutrophil % 91.6 % (47-70); Platelet Count 403 K/mm3 (150-450); RBC Distribution Width CV 20.1 % (11.6-14.6); RBC Distribution Width SD 52.6 fl (35.1-43.9); Red Blood Count 4.17 M/mm3 (4.6-6.2); White Blood Count 6.3 K/mm3 (4.4-11.0)
[2017-12-11 06:09] LABS: Differential Indicated SCAN CRITERIA MET; POSITIVE COUNT NO; POSITIVE DIFFERENTIAL YES; POSITIVE MORPHOLOGY YES
[2017-12-11 06:16] LABS: Base Excess 5 mmol/L (-2 to +2); Bicarbonate 28.5 mmol/L (22-26); Blood Gas Specimen Type ART; FI02 40; Mode A-C; O2 Delivery Device Vent; PEEP 5; PO2 187 mmHG (75-100); RR 14; SITE R Radial; SO2 100 % (95-99); Time Given 605; Total Carbon Dioxide 30 mmol/L; Vt 500; pCO2 40.3 mmHg (35-45); pH 7.46 (7.35-7.45)
[2017-12-11 06:17] LABS: Anion Gap 10 (5-15); BUN 21 mg/dL (7-18); BUN/Creat Ratio 34.3 RATIO (10-20); Calcium,Total 8.5 mg/dL (8.5-10.1); Chloride 103 mmol/L (98-107); Creatinine, Serum 0.61 mg/dL (0.70-1.30); EST Glomerular Filtration Rate 143 mL/min (>60); Est Glom Filt Rate - Afr Amer 173 mL/min (>60); Estimated Creatinine Clearance 122.27 ml/min; Glucose 143 mg/dL (74-106); Magnesium 2.1 mg/dL (1.6-2.6); Potassium 4.2 mmol/L (3.5-5.1); Sodium Level 139 mmol/L (136-145)
[2017-12-11 06:50] LABS: Anisocytosis 1+; Differential Comment SCAN; Hypochromasia 1+; Microcytosis 1+; Polychromasia 1+
[2017-12-11] MEDS: Albuterol 2.5 MG/3 ML VIAL.NEB. INHALATION (06:56)
--- NOTE | 2017-12-11 07:05 | PCM.PROGNOTE ---
Subjective: Patient is a 57-year-old male with a past medical history of COPD, congestive heart failure, coronary artery disease and ongoing tobacco abuse who presented to the emergency room at [facility] by squad on 12/11/2017 due to severe respiratory distress. Vital signs at presentation to the emergency room were temp 97.7, pulse rate 111, blood pressure 158/95, respiratory rate 28 and he was 100% saturated on BiPAP. The respiratory rate later increased and the patient was beginning to fatigue and was intubated and placed on mechanical ventilation. Significant lab included a normal white blood cell count of 8.2 with 88% neutrophils. Hemoglobin was 9.3 and the MCV was 74. Platelet count was within normal limits. BMP was unremarkable. BNP was increased at 1577. Troponin was 0.08. X-ray showed no pleural effusions or infiltrates but did show pulmonary vascular congestion. MRSA nasal swab was positive. He was admitted to the intensive care unit with a diagnosis of acute respiratory failure with hypoxemia. Dr. Ahmadi was consulted to participate in ICU management. He was started on high-dose intravenous steroids and aerosolized bronchodilators. Ventilator Day #1 TMAX: Afebrile since admission Vital signs: Current vital signs are temperature 97.9, pulse rate 97, blood pressure 130/85, respiratory rate 18 and he is 100% saturated on a 40% FiO2. Fluid balance: Fluid balance since admission is -2642. Urine output: 2850 Weight: 146 pounds All radiologic testing was reviewed: Postextubation film shows the ET tube to be in good position and there is increased cephalization/pulmonary vascular congestion. All labs were personally reviewed: Persistent microcytic anemia with a stable hemoglobin of 9.2. White blood cell count is again normal at 6.3. ABG on a 40%, AC, PEEP of 5 is pH 7.46, PCO2 40 and PO2 187. BUN is 21 with a creatinine of 0.61. Microbiology: Influenza swab was negative. Sputum for culture has not been collected. Respiratory panel is ordered. Review of progress notes and history and physicals from previous admissions shows reveals the patient to have a severe cardiomyopathy with a 10-15% ejection fraction. Apparently he has had multiple stents and was scheduled for CABG on 10/16/2016 in a hospital in [place]...he was in [place] at the time and so the CABG was not done. He has had a life vest in the past but when he came to the hospital in October of 2016 the batteries were . Batteries were ordered for him BUT, he left AMA before the batteries came in. He does not have a PCP. I spoke with his brother Angel. He has been going back and forth between [place] and [place] but, now states he is going to stay in [place]. He is . He just got back from [place] a week ago and had just gotten released from a hospital in [facility]. He did not have a life vest when he recently arrived from [place]. There is a hx of alcohol abuse and a suspected hx of Drug abuse per his brother Angel. He has not been drinking since he returned recently. He has no hx of mental illness. - Physical Exam General: - - Heavily sedated presently, remains on mechanical ventilation HEENT: Atraumatic, PERRLA, Normocephalic Neck: Supple, Negative Carotid Bruits, No Nodes, No Nuchal Rigidity, JVD, Bilateral Lungs: Clear to auscultation Cardiovascular: Regular rate, Regular Rhythm, Normal S1, Normal S2, No murmurs, No rub noted, No Gallop Abdomen: Bowel Sounds Present, Soft, Non-Distended, - - No guarding with palpation Extremities: No clubbing, No cyanosis, No edema, Diminished Peripheral Pulses, - - Bilateral femoral bruits. Pulses are more diminished on the R than the left Skin: No rashes, No breakdown Musculoskeletal: No Muscle Wasting Neurological: - - no facial asymmetry, moving all extremities, attempted to self extubate today Vital Signs Temp Pulse Resp BP Pulse Ox 97.9 F 97 18 130/85 H 100 12/11/17 06:04 12/11/17 06:04 12/11/17 06:04 12/11/17 06:04 12/11/17 06:04 Oxygen Delivery Method Mechanical Ventilator Weight: 146 lb 2.664 oz Body Mass Index (BMI) 20.5 Intake and Output for Last 24 Hours 12/09/17 12/10/17 12/11/17 23:59 23:59 23:59 Intake Total 208 / 208 Output Total 2850 / 2850 Balance -2642 / -2642 Laboratory Tests Past 24 Hrs 12/11/17 12/11/17 12/11/17 03:35 05:50 05:50 WBC RBC Hgb Hct MCV MCH MCHC RDW RDW Differential Plt Count MPV Immature Gran % (Auto) Neut % (Auto) Lymph % (Auto) Ware % (Auto) Eos % (Auto) Baso % (Auto) Absolute Neuts (auto) Absolute Lymphs (auto) Total Counted Differential Comment Polychromasia Hypochromasia Anisocytosis Microcytosis Specimen Type Sample Site pH Bicarbonate Actual POC Total CO2 Base Excess O2 Saturation O2 % ABG pCO2 ABG pO2 Respiration Rate O2 Delivery Device Minute Volume Vent Mode Tidal Volume POC PEEP Blood Gas Notified Whom Blood Gas Notified Time Sodium Pending 139 Potassium Pending 4.2 Chloride Pending 103 Carbon Dioxide Pending 26.0 Anion Gap Pending 10 BUN Pending 21 H Creatinine Pending 0.61 L Estim Creat Clear Calc 122.27 Est GFR (MDRD) Af Amer Pending 173 Est GFR (MDRD) Non-Af Pending 143 BUN/Creatinine Ratio Pending 34.3 H Glucose Pending 143 H Calcium Pending 8.5 Magnesium 2.1 Total Bilirubin Pending AST Pending ALT Pending Alkaline Phosphatase Pending Troponin I Pending Total Protein Pending Albumin Pending MRSA (PCR) POSITIVE H 12/11/17 12/11/17 05:50 06:11 WBC 6.3 RBC 4.17 L Hgb 9.2 L Hct 30.8 L MCV 73.9 L MCH 22.1 L MCHC 29.9 L RDW 20.1 H RDW Differential 52.6 H Plt Count 403 MPV 8.7 Immature Gran % (Auto) 0.500 Neut % (Auto) 91.6 H Lymph % (Auto) 6.7 L Ware % (Auto) 1.0 Eos % (Auto) 0.0 Baso % (Auto) 0.2 Absolute Neuts (auto) 5.8 Absolute Lymphs (auto) 0.42 L Total Counted Not Reportable Differential Comment SCAN Polychromasia 1+ Hypochromasia 1+ Anisocytosis 1+ Microcytosis 1+ Specimen Type ART Sample Site R Radial pH 7.46 H Bicarbonate Actual 28.5 H POC Total CO2 30 Base Excess 5 H O2 Saturation 100 H O2 % 40 ABG pCO2 40.3 ABG pO2 187 H Respiration Rate 14 O2 Delivery Device Vent Minute Volume 10.00 Vent Mode A-C Tidal Volume 500 POC PEEP 5 Blood Gas Notified Whom HOSP Blood Gas Notified Time 605 Sodium Potassium Chloride Carbon Dioxide Anion Gap BUN Creatinine Estim Creat Clear Calc Est GFR (MDRD) Af Amer Est GFR (MDRD) Non-Af BUN/Creatinine Ratio Glucose Calcium Magnesium Total Bilirubin AST ALT Alkaline Phosphatase Troponin I Total Protein Albumin MRSA (PCR) Assessment/Plan Impressions 1. acute respiratory failure with hypoxemia due to acute on chronic systolic CHF 2. acute on Chronic systolic CHF 3. severe CM with a 10-15% EF in the past 4. CAD with a hx of multiple stents. Was scheduled for a CABG in [place] on October of 2016 and he did not show up 5. External defibrillator in the past.......signed out AMA when we were waiting for new batteries to come in October 2016.....brother states he has not had a life vest since coming back to [place] 1 week ago 6. elevated troponin - not trending 7. COPD 8. Hx of heavy alcohol use and suspected Drug abuse 9. Microcytic anemia 10. ongoing tobacco dependence despite CAD, CHF, COPD and hypoxia 11. Hyperphosphatemia Iron studies Cardiology consult - Dr. Mak was notified by Dr. Ahmadi ECHO Brother is trying to get the name and the number of the hospital he was recently admitted to in [facility] Restart home meds -losartan, Coreg, aspirin, clopidogrel he has a microcytic anemia - may be losing blood from the GI tract......continue the BID H2B Start TF Obtain Records from [facility] in [facility] and [facility] in [place]. 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 Compliance with meds is questionable Recheck lab in the AM Continue diuresis - CXR today still shows PVC. IV fluids discontinued by Dr. Ahmadi. Lasix 40 mg BID IV Discussed findings and update his brother Angel Will need an ambulatory pulse ox on RA prior to DC. Considering adding Aldactone - will discuss with Dr. Mak Code Visit Procedures: [id number] Prolonged InPt Service; first hour
--- NOTE | 2017-12-11 07:09 | ECHOD_ITS ---
Reason For Study: CHF Procedure This was a 2D Doppler, Color Flow transthoracic echocardiogram. Exam performed portable in ICU/CCU. Left Ventricle Moderately dilated left ventricle. The estimated ejection fraction is 15-20 %. Stage 2 diastolic dysfunction. There is severe global hypokinesis of the left ventricle. Right Ventricle Mildly dilated right ventricle. Normal systolic function. Atria Normal left atrium. Normal right atrium. Normal atrial septum. Probable patent foramen ovale. Color flow evidence of L to R shunt. Mitral Valve The mitral valve is structurally normal. No prolapse or stenosis seen. Mild (1+) mitral valve insufficiency. Tricuspid Valve Normal tricuspid valve. Mild (1+) tricuspid valve insufficiency. Right ventricular systolic pressure estimated to be 43 mmHg. Mild pulmonary hypertension. Aortic Valve Normal aortic valve. Trisinus/trileaflet aortic valve. Pulmonic Valve Normal pulmonic valve. Great Vessels Normal aortic root. Normal arch. The inferior vena cava is dilated. No collapse of the inferior vena cava. Pericardium/Pleural No pericardial effusion. MMode/2D Measurements & Calculations LVIDd: 5.6 cm IVSd: 0.75 cm Ao root diam: 3.7 cm LVIDs: 4.8 cm LVPWd: 1.0 cm LA dimension: 3.9 cm RVDd: 3.9 cm FS: 14.9 % LAV(MOD-bp): 62.3 ml LA A4 area: 19.9 cm2 RA A4 area: 18.4 cm2 LAV(MOD-bp) Indexed: 34.1 ml/m2 LAV(MOD-sp2): 62.0 ml LAV(MOD-sp4): 60.4 ml Doppler Measurements & Calculations MV E max fany: 124.8 cm/sec Ao V2 max: 118.2 cm/sec LV V1 max: 80.2 cm/sec MV A max fany: 111.1 cm/sec Ao max P.6 mmHg LV V1 max P.6 mmHg MV E/A: 1.1 Interpretation Summary Moderately dilated left ventricle. The estimated ejection fraction is 15-20 %. There is severe global hypokinesis of the left ventricle. Stage 2 diastolic dysfunction. Mildly dilated right ventricle. Color flow evidence of L to R shunt. Mild (1+) mitral valve insufficiency. Mild (1+) tricuspid valve insufficiency. Right ventricular systolic pressure estimated to be 43 mmHg. Mild pulmonary hypertension. Compared to echo report dated 09/26/2016, no appreciable changes noted. Ordering Physician: Ada Paredes Performed By: Hayde Henriquez, WENDY, RVT
--- NOTE | 2017-12-11 07:09 | RAD_ITS ---
STUDY: X-RAY CHEST REASON FOR EXAM: Male, 57 years old. Shortness of breath. Acute respiratory failure. TECHNIQUE: Single AP portable view of the chest. COMPARISON: Comparison is made with prior study dated December 11, 2017 at 12:32 AM. FINDINGS: An endotracheal tube is in situ. The tip is at 2.6 cm proximal to the zoraida. A nasogastric tube is seen. The tip is below the left hemidiaphragm. EKG electrodes are seen. Minimal increased markings at the left lung base suggestive of early left basilar atelectasis. There is no demonstrated pleural abnormality. Normal size heart. Normal mediastinum and alberto. Normal visualized pulmonary arteries. There is atherosclerotic calcification of the aortic arch with tortuosity. Normal visualized thoracic spine. Normal visualized ribs, clavicles, and shoulders. There is no demonstrated abnormality of the visualized soft tissue structures of the upper abdomen. RAD/Chest 1 View (Portable) IMPRESSION: Mild increased markings at the left lung base suggesting atelectasis. Support tubes are in good position. Electronically Signed: Darrick Coreas MD at 11:05 EDT Tel [phone], Service support ,
--- NOTE | 2017-12-11 07:21 | PN_ITS ---
Subjective: Patient is a 57-year-old male with a past medical history of COPD, congestive heart failure, coronary artery disease and ongoing tobacco abuse who presented to the emergency room at [facility] by squad on 12/11/2017 due to severe respiratory distress. Vital signs at presentation to the emergency room were temp 97.7, pulse rate 111, blood pressure 158/95, respiratory rate 28 and he was 100% saturated on BiPAP. The respiratory rate later increased and the patient was beginning to fatigue and was intubated and placed on mechanical ventilation. Significant lab included a normal white blood cell count of 8.2 with 88% neutrophils. Hemoglobin was 9.3 and the MCV was 74. Platelet count was within normal limits. BMP was unremarkable. BNP was increased at 1577. Troponin was 0.08. X-ray showed no pleural effusions or infiltrates but did show pulmonary vascular congestion. MRSA nasal swab was positive. He was admitted to the intensive care unit with a diagnosis of acute respiratory failure with hypoxemia. Dr. Ahmadi was consulted to participate in ICU management. He was started on high-dose intravenous steroids and aerosolized bronchodilators. Ventilator Day #1 TMAX: Afebrile since admission Vital signs: Current vital signs are temperature 97.9, pulse rate 97, blood pressure 130/85, respiratory rate 18 and he is 100% saturated on a 40% FiO2. Fluid balance: Fluid balance since admission is -2642. Urine output: 2850 Weight: 146 pounds All radiologic testing was reviewed: Postextubation film shows the ET tube to be in good position and there is increased cephalization/pulmonary vascular congestion. All labs were personally reviewed: Persistent microcytic anemia with a stable hemoglobin of 9.2. White blood cell count is again normal at 6.3. ABG on a 40% , AC, PEEP of 5 is pH 7.46, PCO2 40 and PO2 187. BUN is 21 with a creatinine of 0.61. Microbiology: Influenza swab was negative. Sputum for culture has not been collected. Respiratory panel is ordered. Review of progress notes and history and physicals from previous admissions shows reveals the patient to have a severe cardiomyopathy with a 10-15% ejection fraction. Apparently he has had multiple stents and was scheduled for CABG on 10/16/2016 in a hospital in [place]...he was in [place] at the time and so the CABG was not done. He has had a life vest in the past but when he came to the hospital in October of 2016 the batteries were . Batteries were ordered for him BUT, he left AMA before the batteries came in. He does not have a PCP. I spoke with his brother Angel. He has been going back and forth between [place] and [place] but, now states he is going to stay in [place]. He is . He just got back from [place] a week ago and had just gotten released from a hospital in [facility]. He did not have a life vest when he recently arrived from [place]. There is a hx of alcohol abuse and a suspected hx of Drug abuse per his brother Angel. He has not been drinking since he returned recently. He has no hx of mental illness. - Physical Exam General: - - Heavily sedated presently, remains on mechanical ventilation HEENT: Atraumatic, PERRLA, Normocephalic Neck: Supple, Negative Carotid Bruits, No Nodes, No Nuchal Rigidity, JVD, Bilateral Lungs: Clear to auscultation Cardiovascular: Regular rate, Regular Rhythm, Normal S1, Normal S2, No murmurs, No rub noted, No Gallop Abdomen: Bowel Sounds Present, Soft, Non-Distended, - - No guarding with palpation Extremities: No clubbing, No cyanosis, No edema, Diminished Peripheral Pulses, - - Bilateral femoral bruits. Pulses are more diminished on the R than the left Skin: No rashes, No breakdown Musculoskeletal: No Muscle Wasting Neurological: - - no facial asymmetry, moving all extremities, attempted to self extubate today Vital Signs Temp Pulse Resp BP Pulse Ox 97.9 F 97 18 130/85 H 100 12/11/17 06:04 12/11/17 06:04 12/11/17 06:04 12/11/17 06:04 12/11/17 06:04 Oxygen Delivery Method Mechanical Ventilator Weight: 146 lb 2.664 oz Body Mass Index (BMI) 20.5 Intake and Output for Last 24 Hours 12/09/17 12/10/17 12/11/17 23:59 23:59 23:59 Intake Total 208 / 208 Output Total 2850 / 2850 Balance -2642 / -2642 Laboratory Tests Past 24 Hrs 12/11/17 12/11/17 12/11/17 03:35 05:50 05:50 WBC RBC Hgb Hct MCV MCH MCHC RDW RDW Differential Plt Count MPV Immature Gran % (Auto) Neut % (Auto) Lymph % (Auto) [place] % (Auto) Eos % (Auto) Baso % (Auto) Absolute Neuts (auto) Absolute Lymphs (auto) Total Counted Differential Comment Polychromasia Hypochromasia Anisocytosis Microcytosis Specimen Type Sample Site pH Bicarbonate Actual POC Total CO2 Base Excess O2 Saturation O2 % ABG pCO2 ABG pO2 Respiration Rate O2 Delivery Device Minute Volume Vent Mode Tidal Volume POC PEEP Blood Gas Notified Whom Blood Gas Notified Time Sodium Pending 139 Potassium Pending 4.2 Chloride Pending 103 Carbon Dioxide Pending 26.0 Anion Gap Pending 10 BUN Pending 21 H Creatinine Pending 0.61 L Estim Creat Clear Calc 122.27 Est GFR (MDRD) Af Amer Pending 173 Est GFR (MDRD) Non-Af Pending 143 BUN/Creatinine Ratio Pending 34.3 H Glucose Pending 143 H Calcium Pending 8.5 Magnesium 2.1 Total Bilirubin Pending AST Pending ALT Pending Alkaline Phosphatase Pending Troponin I Pending Total Protein Pending Albumin Pending MRSA (PCR) POSITIVE H 12/11/17 12/11/17 05:50 06:11 WBC 6.3 RBC 4.17 L Hgb 9.2 L Hct 30.8 L MCV 73.9 L MCH 22.1 L MCHC 29.9 L RDW 20.1 H RDW Differential 52.6 H Plt Count 403 MPV 8.7 Immature Gran % (Auto) 0.500 Neut % (Auto) 91.6 H Lymph % (Auto) 6.7 L [place] % (Auto) 1.0 Eos % (Auto) 0.0 Baso % (Auto) 0.2 Absolute Neuts (auto) 5.8 Absolute Lymphs (auto) 0.42 L Total Counted Not Reportable Differential Comment SCAN Polychromasia 1+ Hypochromasia 1+ Anisocytosis 1+ Microcytosis 1+ Specimen Type ART Sample Site R Radial pH 7.46 H Bicarbonate Actual 28.5 H POC Total CO2 30 Base Excess 5 H O2 Saturation 100 H O2 % 40 ABG pCO2 40.3 ABG pO2 187 H Respiration Rate 14 O2 Delivery Device Vent Minute Volume 10.00 Vent Mode A-C Tidal Volume 500 POC PEEP 5 Blood Gas Notified Whom HOSP Blood Gas Notified Time 605 Sodium Potassium Chloride Carbon Dioxide Anion Gap BUN Creatinine Estim Creat Clear Calc Est GFR (MDRD) Af Amer Est GFR (MDRD) Non-Af BUN/Creatinine Ratio Glucose Calcium Magnesium Total Bilirubin AST ALT Alkaline Phosphatase Troponin I Total Protein Albumin MRSA (PCR) Assessment/Plan Impressions 1. acute respiratory failure with hypoxemia due to acute on chronic systolic CHF 2. acute on Chronic systolic CHF 3. severe CM with a 10-15% EF in the past 4. CAD with a hx of multiple stents. Was scheduled for a CABG in [place] on October of 2016 and he did not show up 5. External defibrillator in the past.......signed out AMA when we were waiting for new batteries to come in October 2016.....brother states he has not had a life vest since coming back to [place] 1 week ago 6. elevated troponin - not trending 7. COPD 8. Hx of heavy alcohol use and suspected Drug abuse 9. Microcytic anemia 10. ongoing tobacco dependence despite CAD, CHF, COPD and hypoxia 11. Hyperphosphatemia Iron studies Cardiology consult - Dr. Mak was notified by Dr. Ahmadi ECHO Brother is trying to get the name and the number of the hospital he was recently admitted to in [facility] Restart home meds -losartan, Coreg, aspirin, clopidogrel he has a microcytic anemia - may be losing blood from the GI tract......continue the BID H2B Start TF Obtain Records from [facility] in [facility] and [facility] in [place]. 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 Compliance with meds is questionable Recheck lab in the AM Continue diuresis - CXR today still shows PVC. IV fluids discontinued by Dr. Ahmadi. Lasix 40 mg BID IV Discussed findings and update his brother Angel Will need an ambulatory pulse ox on RA prior to DC. Considering adding Aldactone - will discuss with Dr. Mak Code Visit Procedures: [id number] Prolonged InPt Service; first hour
[2017-12-11 07:32] LABS: Immature Platelet Fraction 0.9 % (1.0-7.9); RET-HE 21.3 pg (30-35); Reticulocyte Count 1.43 % (0.5-1.5)
[2017-12-11 07:40] LABS: Phosphorus 5.2 mg/dL (2.5-4.9)
[2017-12-11 07:44] LABS: Ferritin 46 ng/mL (26-388); Iron 27 ug/dL (65-175); Iron Binding Capacity,Total 439 ug/dL (250-450); PERCENT IRON SATURATION 6.2 % (15.0-55.0)
[2017-12-11 07:51] LABS: ALB/GLOB Ratio 0.7 RATIO (0.9-2.4); AST(SGOT) 30 U/L (15-37); Alanine Aminotransfer ALT/SGPT 32 U/L (16-61); Alkaline Phosphatase 92 U/L (45-117); Anion Gap 11 (5-15); BUN 20 mg/dL (7-18); Calcium,Total 8.6 mg/dL (8.5-10.1); Chloride 104 mmol/L (98-107); Creatinine, Serum 0.67 mg/dL (0.70-1.30); EST Glomerular Filtration Rate 130 mL/min (>60); Est Glom Filt Rate - Afr Amer 157 mL/min (>60); Estimated Creatinine Clearance 111.32 ml/min; Globulin 4.4 g/dL (2.2-4.2); Glucose 140 mg/dL (74-106); Potassium 4.2 mmol/L (3.5-5.1); Protein, Total 7.4 g/dL (6.4-8.2); Sodium Level 140 mmol/L (136-145)
--- NOTE | 2017-12-11 08:00 | NURSING ---
unable to assess cam d/t pt sedation
--- NOTE | 2017-12-11 08:30 | NURSING ---
echo in progress
--- NOTE | 2017-12-11 08:33 | EKG12_ITS ---
Test Reason : Blood Pressure : / mmHG Vent. Rate : 091 BPM Atrial Rate : 091 BPM P-R Int : 190 ms QRS Dur : 100 ms QT Int : 420 ms P-R-T Axes : 078 -57 242 degrees QTc Int : 516 ms Normal sinus rhythm Left anterior fascicular block ST & T wave abnormality, consider inferolateral ischemia Prolonged QT Abnormal ECG When compared with ECG of 07-DEC-2017 15:20, T wave inversion now evident in Inferior leads Nonspecific T wave abnormality now evident in Anterior leads Confirmed by ERON TIRADO ([id number]), digital editor AMADOR EDMONDS ([id number] on 12/17/2017 2:23:11 PM Referred By: Confirmed By:ERON TIRADO
[2017-12-11 08:51] LABS: Amphetamine Urine VISTA NEGATIVE (<1000 ng/mL); Barbiturate Urine VISTA NEGATIVE (< 200 ng/mL); Benzodiazepine Urine VISTA POSITIVE (< 200 ng/mL); Cocaine Urine VISTA NEGATIVE (< 300 ng/mL); Ecstacy Urine VISTA NEGATIVE (< 500 ng/mL); Methadone Urine VISTA NEGATIVE (< 300 ng/mL); PCP Urine VISTA NEGATIVE (< 25 ng/mL); THC Urine VISTA NEGATIVE (< 50 ng/mL); Vista UDS pH Range 7
--- NOTE | 2017-12-11 09:30 | NURSING ---
OET tube flores changed per Ping RT and this RN
--- NOTE | 2017-12-11 09:34 | CASEMGMT ---
SW participated in interdisciplinary rounds. Patient is self pay. He just moved here from [place]. He had Medicaid in [place], but has not switched it to [place] yet. Per physician who spoke with patient's brother, patient usually leaves the hospital AMA once he is better. SW will follow and assist with needs. Nicolasa GUILLAUME MSW
[2017-12-11] MEDS: Enoxaparin 40 MG/0.4 ML Syringe SC (10:02)
[2017-12-11] MEDS: Chlorhexidine 15 ML PO ×2 (10:02→22:55)
[2017-12-11] MEDS: Famotidine 20 MG Tablet GT ×2 (10:02→22:45)
[2017-12-11] MEDS: 0.9% NaCl Peripheral Flush Adult/Peds IV ×3 (10:03→22:44)
[2017-12-11] MEDS: Losartan Potassium 25 MG Tablet PO (10:07)
[2017-12-11] MEDS: Clopidogrel Bisulfate 75 MG Tablet PO (10:07)
[2017-12-11] MEDS: Carvedilol 3.125 MG TABLET PO ×2 (10:09→22:46)
[2017-12-11] MEDS: Ipratropium/Albuterol Sulfate 3 ML AMPUL.NEB INHALATION ×4 (10:53→22:44)
--- NOTE | 2017-12-11 11:09 | PCM.CONS.C ---
Problem List (1) Dyspnea Status: Acute (2) CHF (congestive heart failure) Status: Chronic Qualifiers: Heart failure type: unspecified (3) CAD (coronary artery disease) Status: Chronic Reason for Consult Date of Consultation: 12/11/17 Reason for Consultation: CHF, cardiomyopathy, respiratory distress, non-STEMI History of Present Illness: The patient is a 57 year old M, currently intubated, no family members available, recent medical records from [place] reviewed which indicate the patient has a history of what appears to be ischemic cardiomyopathy with an EF around 15-20%, COPD, hypertension, hypercholesterolemia, CHF and tobacco abuse. Patient was apparently found by family member in respiratory distress at home, EMS was called, and the patient was intubated emergently in the field. The patient had previously visited the emergency room on 12/07/17 with complaints of shortness of breath and a chest x-ray was performed which demonstrated a possible right-sided infiltrate. Home O2 was supposed to be set up and apparently did not take place. Patient's condition deteriorated requiring emergent intubation. Overnight the patient has been intubated, sedated on propofol and fentanyl drip, and had a mild troponin release of 0.08 on 3 sets. EKG demonstrated sinus tachycardia with evidence of lateral ST and T-wave changes, consistent with ischemia versus LVH with repolarization abnormality. A 2D echo was performed today which demonstrated severe LV dysfunction with an EF around 15-20%, unchanged from previous echo in 2016. Patient is currently stable. There are no previous catheterization reports here [facility]. [] Past Medical History Allergies/Adverse Reactions: Allergies No Known Allergies Allergy (Verified 12/10/17 23:03) Home Medications: Ambulatory Orders Medication Instructions Recorded Acetaminophen [Tylenol Tablet] 650 mg PO Q6H PRN PRN #0 tablet 09/26/16 Albuterol Aerosols [Ventolin 2.5 mg INHALATION Q2H PRN PRN #30 09/26/16 Aerosols] vial.neb. Albuterol Sulfate [Ventolin Hfa] 18 gm IH Q4H PRN PRN #1 hfa.aer.ad 09/26/16 Amlodipine [Norvasc] 5 mg PO DAILY #30 tablet 09/26/16 Aspirin [Aspirin, Baby] 81 mg PO DAILY@0800 #30 tab.chew 09/26/16 Atorvastatin Calcium [Lipitor] 80 mg PO QHS #30 tablet 09/26/16 Carvedilol [Coreg (Beta Fletcher)] 6.25 mg PO BID #60 tablet 09/26/16 Clopidogrel Bisulfate [Plavix] 75 mg PO DAILY #30 tablet 09/26/16 Furosemide [Lasix] 40 mg PO DAILY #30 tablet 09/26/16 Gabapentin [Neurontin] 600 mg PO DAILY #30 tablet 09/26/16 Isosorbide Mononitrate [Imdur] 60 mg PO BID #60 tablet 09/26/16 Losartan Potassium [Cozaar] 25 mg PO DAILY #30 tablet 09/26/16 Potassium Chloride [K-Dur] 20 meq PO DAILY #10 tablet 09/26/16 Levofloxacin [Levaquin] 750 mg PO DAILY@0600 #5 tablet 10/20/16 Albuterol Sulfate [Proventil Hfa] 6.7 gm IH Q2H PRN PRN #1 hfa.aer.ad 12/07/17 Furosemide [Lasix] 40 mg PO BIDLX.TCU #60 tab 12/07/17 Potassium Chloride [K-Dur] 20 meq PO DAILY #30 tab 12/07/17 Prednisone [Deltasone] 40 mg PO DAILY 10 Days tab 12/07/17 Past Medical History (Chronic Problems): Chronic Problems CHF (congestive heart failure) (Chronic) CAD (coronary artery disease) (Chronic) Tobacco abuse (Chronic) Medical non-compliance (Chronic) Ischemic cardiomyopathy (Chronic) Surgical History: - - heart stents - *Family History Maternal History Items: Heart Disease Paternal History Items: Heart Disease Smoking Status: Current every day smoker Review of Systems - Review of Systems General: Denies: Fever, Night Sweats, Fatigue Cardiovascular: Reports: Shortness of Breath, Shortness of Breath at Rest. Denies: Chest Discomfort, Orthopnea, PND, Peripheral Edema, Palpitations, Lightheadedness, Dizziness, Near Syncope, Syncope Respiratory: Denies: Cough, Sputum Production, Hemoptysis Gastrointestinal: Denies: Hematemesis, Hematochezia, Melena Genitourinary: Denies: Dysuria, Hematuria Skin: Denies: Rash Subjectve: Patient sedated, intubated, on fentanyl and propofol drips. No acute distress. Objective: Vital Signs Temp Pulse Resp BP Pulse Ox 97.9 F 91 18 129/94 H 100 12/11/17 07:00 03/13/18 09:15 12/11/17 09:15 12/11/17 07:00 12/11/17 10:00 Oxygen Delivery Method Mechanical Ventilator Weight: 146 lb 2.664 oz Body Mass Index (BMI) 20.5 Intake and Output for Last 24 Hours 12/09/17 12/10/17 12/11/17 23:59 23:59 23:59 Intake Total 323 / 323 Output Total 2850 / 2850 Balance -2527 / -2527 General: Awake, Alert, Oriented x 3 HEENT: PERRL, EOMI, Sclera Non Icteric Neck: Supple, Good ROM, No Lymph Node Enlargement Lungs: Clear to auscultation Cardiovascular: Regular Rhythm, Normal S1, Normal S2, No Murmurs, No Rubs, No Gallops Vascular: No Carotid Bruits, Normal Femoral Pulses, Normal Radial Pulses, Normal Dorsalis Pedal Pulse, Normal Posterior Tibial Pulses Abdomen: Bowel Sounds Present, Soft, Non Tender, No HSM, No Organomegaly Extremities: No Cyanosis, No Clubbing, No edema Neurological: No Focal Motor or Sensory Deficit 12/11/17 05:50: Sodium 140, Potassium 4.2, Chloride 104, Carbon Dioxide 25.0, Anion Gap 11, BUN 20 H, Creatinine 0.67 L, Est GFR (MDRD) Af Amer 157, Est GFR (MDRD) Non-Af 130, BUN/Creatinine Ratio 30.0 H, Glucose 140 H, Calcium 8.6, Total Bilirubin 0.70, Troponin I 0.08 H 12/11/17 05:50: Sodium 139, Potassium 4.2, Chloride 103, Carbon Dioxide 26.0, Anion Gap 10, BUN 21 H, Creatinine 0.61 L, Est GFR (MDRD) Af Amer 173, Est GFR (MDRD) Non-Af 143, BUN/Creatinine Ratio 34.3 H, Glucose 143 H, Calcium 8.5, Magnesium 2.1 12/11/17 05:50: WBC 6.3, RBC 4.17 L, Hgb 9.2 L, Hct 30.8 L, MCV 73.9 L, MCH 22.1 L, MCHC 29.9 L, RDW 20.1 H, RDW Differential 52.6 H, Plt Count 403, MPV 8.7, Immature Gran % (Auto) 0.500, Neut % (Auto) 91.6 H, Lymph % (Auto) 6.7 L, [place] % (Auto) 1.0, Eos % (Auto) 0.0, Baso % (Auto) 0.2, Absolute Neuts (auto) 5.8, Total Counted Not Reportable 12/11/17 05:50: Iron 27 L, TIBC 439, Iron Saturation 6.2 L, Ferritin 46 12/11/17 05:50: Phosphorus 5.2 H 12/11/17 06:11: pH 7.46 H, Bicarbonate Actual 28.5 H, POC Total CO2 30, Base Excess 5 H, O2 Saturation 100 H, ABG pCO2 40.3, ABG pO2 187 H 12/11/17 09:20: Troponin I 0.08 H Rhythm: Telemetry negative EKG: As above ECHO: As above Stress Test: Cardiac Cath: Pending PCI: CT Surgery: Holter monitor: EPS: PPM: CXR: Chest CT Scan: Assessment/Plan 1. Ischemic cardiomyopathy: The patient presumably has a history of ischemic cardiomyopathy but no specific medical records are in the chart at this time. There are no family members available to discuss, but he apparently has had a known severe LV dysfunction at least since August 2016 at which time he had an echocardiogram indicating his severe LV dysfunction. Do not see that he is ever had a heart catheterization at our hospital, and may have had this done down in [place]. At this point I would recommend judicious use of IV fluids, fluid restriction of 1500 cc per day, max concentration of all IV drips, and matching I's and O's on a daily basis. Patient's troponins have been relatively flat at 0.08?3 sets. His rhythm has remained stable. I would recommend that we attempt to acquire medical records from wherever his primary cardiac care is located to determine the severity of his cardiomyopathy, his last catheterization, and if he has had any stents in the past. Patient may require repeat catheterization to determine if he has had any deterioration of his coronary anatomy which may require either intervention or bypass surgery. I reviewed his chest x-ray which demonstrated a possible infiltrate versus edema over his right lung, no pleural effusions are noted, and appears to have responded from IV diuretic therapy. I agree with IV diuresis with Lasix 40 mg IV twice daily until the patient is reached his dry weight and his weaning parameters have improved to the point where he can be extubated. If efforts to wean the patient off the ventilator unsuccessful, he may require diagnostic coronary angiogram while he is intubated plus/minus intervention, and/or intruding balloon pump to assist with afterload reduction. At this point I would continue Coreg 3.125 mill grams p.o. twice daily, and losartan 25 mg p.o. daily for afterload reduction. 2. COPD: The patient also comes with a diagnosis of COPD which may be superimposed on his LV dysfunction and CHF. Dr. Ahmadi consulted. 3. Tobacco cessation: The patient is apparently an active smoker, and would recommend highly that he discontinue all tobacco products. 4. Thank you very much for the opportunity to precipitate the cardiac care of your patient. Consultation time took place between 1045 and 11:20 AM. Code Visit Inpatient E&M: 39477 Init Hosp L3
--- NOTE | 2017-12-11 11:19 | CON.PCM_ITS ---
Problem List (1) Dyspnea Status: Acute (2) CHF (congestive heart failure) Status: Chronic Qualifiers: Heart failure type: unspecified (3) CAD (coronary artery disease) Status: Chronic Reason for Consult Date of Consultation: 12/11/17 Reason for Consultation: CHF, cardiomyopathy, respiratory distress, non-STEMI History of Present Illness: The patient is a 57 year old M, currently intubated, no family members available , recent medical records from [place] reviewed which indicate the patient has a history of what appears to be ischemic cardiomyopathy with an EF around 15-20% , COPD, hypertension, hypercholesterolemia, CHF and tobacco abuse. Patient was apparently found by family member in respiratory distress at home, EMS was called, and the patient was intubated emergently in the field. The patient had previously visited the emergency room on 12/07/17 with complaints of shortness of breath and a chest x-ray was performed which demonstrated a possible right- sided infiltrate. Home O2 was supposed to be set up and apparently did not take place. Patient's condition deteriorated requiring emergent intubation. Overnight the patient has been intubated, sedated on propofol and fentanyl drip , and had a mild troponin release of 0.08 on 3 sets. EKG demonstrated sinus tachycardia with evidence of lateral ST and T-wave changes, consistent with ischemia versus LVH with repolarization abnormality. A 2D echo was performed today which demonstrated severe LV dysfunction with an EF around 15-20%, unchanged from previous echo in 2016. Patient is currently stable. There are no previous catheterization reports here [facility]. [] Past Medical History Allergies/Adverse Reactions: Allergies No Known Allergies Allergy (Verified 12/10/17 23:03) Home Medications: Ambulatory Orders Medication Instructions Recorded Acetaminophen [Tylenol Tablet] 650 mg PO Q6H PRN PRN #0 tablet 09/26/16 Albuterol Aerosols [Ventolin 2.5 mg INHALATION Q2H PRN PRN #30 09/26/16 Aerosols] vial.neb. Albuterol Sulfate [Ventolin Hfa] 18 gm IH Q4H PRN PRN #1 hfa.aer.ad 09/26/16 Amlodipine [Norvasc] 5 mg PO DAILY #30 tablet 09/26/16 Aspirin [Aspirin, Baby] 81 mg PO DAILY@0800 #30 tab.chew 09/26/16 Atorvastatin Calcium [Lipitor] 80 mg PO QHS #30 tablet 09/26/16 Carvedilol [Coreg (Beta Fletcher)] 6.25 mg PO BID #60 tablet 09/26/16 Clopidogrel Bisulfate [Plavix] 75 mg PO DAILY #30 tablet 09/26/16 Furosemide [Lasix] 40 mg PO DAILY #30 tablet 09/26/16 Gabapentin [Neurontin] 600 mg PO DAILY #30 tablet 09/26/16 Isosorbide Mononitrate [Imdur] 60 mg PO BID #60 tablet 09/26/16 Losartan Potassium [Cozaar] 25 mg PO DAILY #30 tablet 09/26/16 Potassium Chloride [K-Dur] 20 meq PO DAILY #10 tablet 09/26/16 Levofloxacin [Levaquin] 750 mg PO DAILY@0600 #5 tablet 10/20/16 Albuterol Sulfate [Proventil Hfa] 6.7 gm IH Q2H PRN PRN #1 hfa.aer.ad 12/07/17 Furosemide [Lasix] 40 mg PO BIDLX.TCU #60 tab 12/07/17 Potassium Chloride [K-Dur] 20 meq PO DAILY #30 tab 12/07/17 Prednisone [Deltasone] 40 mg PO DAILY 10 Days tab 12/07/17 Past Medical History (Chronic Problems): Chronic Problems CHF (congestive heart failure) (Chronic) CAD (coronary artery disease) (Chronic) Tobacco abuse (Chronic) Medical non-compliance (Chronic) Ischemic cardiomyopathy (Chronic) Surgical History: - - heart stents - *Family History Maternal History Items: Heart Disease Paternal History Items: Heart Disease Smoking Status: Current every day smoker Review of Systems - Review of Systems General: Denies: Fever, Night Sweats, Fatigue Cardiovascular: Reports: Shortness of Breath, Shortness of Breath at Rest. Denies: Chest Discomfort, Orthopnea, PND, Peripheral Edema, Palpitations, Lightheadedness, Dizziness, Near Syncope, Syncope Respiratory: Denies: Cough, Sputum Production, Hemoptysis Gastrointestinal: Denies: Hematemesis, Hematochezia, Melena Genitourinary: Denies: Dysuria, Hematuria Skin: Denies: Rash Subjectve: Patient sedated, intubated, on fentanyl and propofol drips. No acute distress. Objective: Vital Signs Temp Pulse Resp BP Pulse Ox 97.9 F 91 18 129/94 H 100 12/11/17 07:00 03/13/18 09:15 12/11/17 09:15 12/11/17 07:00 12/11/17 10:00 Oxygen Delivery Method Mechanical Ventilator Weight: 146 lb 2.664 oz Body Mass Index (BMI) 20.5 Intake and Output for Last 24 Hours 12/09/17 12/10/17 12/11/17 23:59 23:59 23:59 Intake Total 323 / 323 Output Total 2850 / 2850 Balance -2527 / -2527 General: Awake, Alert, Oriented x 3 HEENT: PERRL, EOMI, Sclera Non Icteric Neck: Supple, Good ROM, No Lymph Node Enlargement Lungs: Clear to auscultation Cardiovascular: Regular Rhythm, Normal S1, Normal S2, No Murmurs, No Rubs, No Gallops Vascular: No Carotid Bruits, Normal Femoral Pulses, Normal Radial Pulses, Normal Dorsalis Pedal Pulse, Normal Posterior Tibial Pulses Abdomen: Bowel Sounds Present, Soft, Non Tender, No HSM, No Organomegaly Extremities: No Cyanosis, No Clubbing, No edema Neurological: No Focal Motor or Sensory Deficit 12/11/17 05:50: Sodium 140, Potassium 4.2, Chloride 104, Carbon Dioxide 25.0, Anion Gap 11, BUN 20 H, Creatinine 0.67 L, Est GFR (MDRD) Af Amer 157, Est GFR ( MDRD) Non-Af 130, BUN/Creatinine Ratio 30.0 H, Glucose 140 H, Calcium 8.6, Total Bilirubin 0.70, Troponin I 0.08 H 12/11/17 05:50: Sodium 139, Potassium 4.2, Chloride 103, Carbon Dioxide 26.0, Anion Gap 10, BUN 21 H, Creatinine 0.61 L, Est GFR (MDRD) Af Amer 173, Est GFR ( MDRD) Non-Af 143, BUN/Creatinine Ratio 34.3 H, Glucose 143 H, Calcium 8.5, Magnesium 2.1 12/11/17 05:50: WBC 6.3, RBC 4.17 L, Hgb 9.2 L, Hct 30.8 L, MCV 73.9 L, MCH 22.1 L, MCHC 29.9 L, RDW 20.1 H, RDW Differential 52.6 H, Plt Count 403, MPV 8.7 , Immature Gran % (Auto) 0.500, Neut % (Auto) 91.6 H, Lymph % (Auto) 6.7 L, [place] % (Auto) 1.0, Eos % (Auto) 0.0, Baso % (Auto) 0.2, Absolute Neuts (auto) 5.8, Total Counted Not Reportable 12/11/17 05:50: Iron 27 L, TIBC 439, Iron Saturation 6.2 L, Ferritin 46 12/11/17 05:50: Phosphorus 5.2 H 12/11/17 06:11: pH 7.46 H, Bicarbonate Actual 28.5 H, POC Total CO2 30, Base Excess 5 H, O2 Saturation 100 H, ABG pCO2 40.3, ABG pO2 187 H 12/11/17 09:20: Troponin I 0.08 H Rhythm: Telemetry negative EKG: As above ECHO: As above Stress Test: Cardiac Cath: Pending PCI: CT Surgery: Holter monitor: EPS: PPM: CXR: Chest CT Scan: Assessment/Plan 1. Ischemic cardiomyopathy: The patient presumably has a history of ischemic cardiomyopathy but no specific medical records are in the chart at this time. There are no family members available to discuss, but he apparently has had a known severe LV dysfunction at least since August 2016 at which time he had an echocardiogram indicating his severe LV dysfunction. Do not see that he is ever had a heart catheterization at our hospital, and may have had this done down in [place]. At this point I would recommend judicious use of IV fluids, fluid restriction of 1500 cc per day, max concentration of all IV drips, and matching I's and O's on a daily basis. Patient's troponins have been relatively flat at 0.08?3 sets. His rhythm has remained stable. I would recommend that we attempt to acquire medical records from wherever his primary cardiac care is located to determine the severity of his cardiomyopathy , his last catheterization, and if he has had any stents in the past. Patient may require repeat catheterization to determine if he has had any deterioration of his coronary anatomy which may require either intervention or bypass surgery. I reviewed his chest x-ray which demonstrated a possible infiltrate versus edema over his right lung, no pleural effusions are noted, and appears to have responded from IV diuretic therapy. I agree with IV diuresis with Lasix 40 mg IV twice daily until the patient is reached his dry weight and his weaning parameters have improved to the point where he can be extubated. If efforts to wean the patient off the ventilator unsuccessful, he may require diagnostic coronary angiogram while he is intubated plus/minus intervention, and/or intruding balloon pump to assist with afterload reduction. At this point I would continue Coreg 3.125 mill grams p.o. twice daily, and losartan 25 mg p.o. daily for afterload reduction. 2. COPD: The patient also comes with a diagnosis of COPD which may be superimposed on his LV dysfunction and CHF. Dr. Ahmadi consulted. 3. Tobacco cessation: The patient is apparently an active smoker, and would recommend highly that he discontinue all tobacco products. 4. Thank you very much for the opportunity to precipitate the cardiac care of your patient. Consultation time took place between 1045 and 11:20 AM. Code Visit Inpatient E&M: 80253 Init Hosp L3
[2017-12-11] MEDS: Vital AF 1.2 Cal Liquid 1,000 ML 20 ML GT (12:45)
[2017-12-11] MEDS: QUEtiapine 25 MG Tablet PO ×2 (14:02→22:46)
[2017-12-11 16:41] LABS: Anion Gap 6 (5-15); BUN 22 mg/dL (7-18); BUN/Creat Ratio 38.9 RATIO (10-20); Calcium,Total 8.3 mg/dL (8.5-10.1); Chloride 106 mmol/L (98-107); Creatinine, Serum 0.56 mg/dL (0.70-1.30); EST Glomerular Filtration Rate 157 mL/min (>60); Est Glom Filt Rate - Afr Amer 190 mL/min (>60); Estimated Creatinine Clearance 133.19 ml/min; Glucose 119 mg/dL (74-106); Potassium 4.3 mmol/L (3.5-5.1); Sodium Level 141 mmol/L (136-145)
[2017-12-11] MEDS: Atorvastatin Calcium 80 MG Tablet PO (22:45)
[2017-12-12] VITALS (40 sets, daily range): BP systolic 87–140; BP diastolic 50–98; PULSE 82–112; RESP 14–27; TEMP 36.4–37.4; O2SAT 97–100
[2017-12-12] MEDS: Ipratropium/Albuterol Sulfate 3 ML AMPUL.NEB INHALATION ×6 (03:04→23:19)
[2017-12-12] MEDS: CHLORHEXIDINE GLUC 2% CLOTH 1 EACH TOWELETTE TOPICAL (04:08)
[2017-12-12] MEDS: 0.9% NaCl Peripheral Flush Adult/Peds IV ×5 (04:13→21:39)
[2017-12-12 04:38] LABS: Anion Gap 8 (5-15); BUN 27 mg/dL (7-18); BUN/Creat Ratio 39.8 RATIO (10-20); Calcium,Total 8.3 mg/dL (8.5-10.1); Chloride 103 mmol/L (98-107); Creatinine, Serum 0.68 mg/dL (0.70-1.30); EST Glomerular Filtration Rate 127 mL/min (>60); Est Glom Filt Rate - Afr Amer 154 mL/min (>60); Estimated Creatinine Clearance 109.69 ml/min; Glucose 127 mg/dL (74-106); Magnesium 2.3 mg/dL (1.6-2.6); Phosphorus 4.4 mg/dL (2.5-4.9); Potassium 4.3 mmol/L (3.5-5.1); Sodium Level 142 mmol/L (136-145)
[2017-12-12 04:52] LABS: Hematocrit 31.7 % (40-54); Hemoglobin 9.4 g/dl (13.0-16.5); Mean Corp Hgb Conc 29.7 g/gl (32-36); Mean Corpuscular Volume 74.2 fL (80-94); Mean Platelet Vol. 8.7 fl (6.2-12.0); Platelet Count 451 K/mm3 (150-450); RBC Distribution Width CV 20.4 % (11.6-14.6); RBC Distribution Width SD 53.5 fl (35.1-43.9); Red Blood Count 4.27 M/mm3 (4.6-6.2); White Blood Count 12.3 K/mm3 (4.4-11.0)
[2017-12-12 04:53] LABS: Scan Indicated on CBC? Y/N YES- FLAGS NOTED
--- NOTE | 2017-12-12 05:04 | NURSING ---
Tube feed placed on hold in anticipation of extubation this AM.
[2017-12-12 05:24] LABS: Differential Comment SCAN
--- NOTE | 2017-12-12 05:55 | RAD_ITS ---
STUDY: X-RAY CHEST REASON FOR EXAM: Male, 57 years old. Shortness of breath, intubated, patient could not hold still. TECHNIQUE: Single AP portable view of the chest. COMPARISON: 12/11/2017 FINDINGS: There are superimposed monitor leads. Endotracheal tube tip approximately 2.5 cm superior to the zoraida. Enteric tube tip over the gastric fundus, distal sidehole at the gastroesophageal junction. There are areas of hyperinflation. There is no focal parenchymal abnormality. Decrease of interstitial prominence seen on prior exam. There is no demonstrated pleural abnormality. There is borderline cardiomegaly. There are coronary artery calcifications. Normal mediastinum and alberto. Normal visualized pulmonary arteries. Normal visualized aortic arch and descending thoracic aorta. Age-appropriate thoracic spine. There are degenerative changes of the acromioclavicular joints. There is no demonstrated abnormality of the visualized soft tissue structures of the upper abdomen. RAD/Chest 1 View (Portable) IMPRESSION: Decrease of previous interstitial prominence likely superimposed component of COPD. There is borderline cardiac size. Other nonacute findings as outlined above. No pulmonary edema, congestive heart failure or confluent pneumonia. Electronically Signed: Ilsa Lobato MD at 6:15 EDT , Service support ,
--- NOTE | 2017-12-12 06:24 | PN_ITS ---
Subjective: The patient was seen and examined at the bedside this morning. Events from the last 24 hours have been reviewed. The patient is currently has a low-grade fever to 99.4?F. He is mildly tachycardic, but remains hemodynamically stable. He is currently on a CPAP trial with minimal FiO2 requirement. He did pass a spontaneous breathing trial, is alert and following commands appropriately. He does appear quite anxious, nonetheless. Previous sedation was discontinued and the patient was started on a low-dose of Precedex for anxiety. Objective: The patient's most recent lab work, culture data and imaging studies have all been personally reviewed. Both the respiratory viral panel and rapid influenza screens were negative. Sputum Gram stain revealed 4+ gram-positive cocci, 3+ gram-positive rods and 2+ gram-negative rods. Culture results are pending. Surface echocardiogram completed in August 2016 revealed a mildly dilated LV with severe segmental systolic dysfunction and an ejection fraction of 15%. The patient did have evidence of a left to right interatrial shunt and a right ventricular systolic pressure estimated to be 39 mmHg. Repeat surface echocardiogram completed December 11 revealed the presence of a moderately dilated LV with an ejection fraction of 15-20%. There is evidence of stage II diastolic dysfunction. There is again evidence of a [id number] shunt. Right ventricular systolic pressure was estimated to be 43 mmHg. General: Alert, Cooperative, - - Remains intubated. Currently on CPAP trial. HEENT: Atraumatic, PERRLA, Normocephalic Oral: Moist Mucosa, - - Endotracheal and OG tubes remain in place. Neck: Supple, No Nodes, Trachea Midline Lungs: No rhonchi, No wheeze, No rales, Diminished Cardiovascular: Normal S1, Normal S2, No murmurs, Tachycardic Abdomen: Bowel Sounds Present, Soft, Non Tender Extremities: No clubbing, No cyanosis, No edema Skin: No rashes, No breakdown Musculoskeletal: No Tenderness to Palpation of Joints or Extremities Lymphatic: No Cervical, Supraclavicular, or Inguinal Adenopathy Neurological: - - No focal neurological deficits. Moves all extremities spontaneously. Follows commands appropriately. Psych/Mental Status: Anxious Vital Signs Temp Pulse Resp BP Pulse Ox 99.4 F H 104 H 14 124/81 H 100 12/12/17 06:00 12/12/17 06:00 12/12/17 06:00 12/12/17 06:00 12/12/17 06:00 Oxygen Delivery Method Mechanical Ventilator Weight: 139 lb 5.314 oz Body Mass Index (BMI) 20.5 Intake and Output for Last 24 Hours 12/10/17 12/11/17 12/12/17 23:59 23:59 23:59 Intake Total 1997 574 / 574 Output Total 7025 / 7025 300 / 300 Balance -5027 / -5027 274 / 274 Labs (Last 48 Hours) 12/11/17 12/11/17 12/11/17 03:35 05:50 05:50 WBC RBC Hgb Hct MCV MCH MCHC RDW RDW Differential Plt Count MPV Immature Gran % (Auto) Neut % (Auto) Lymph % (Auto) Wilkinson % (Auto) Eos % (Auto) Baso % (Auto) Absolute Neuts (auto) Absolute Lymphs (auto) Total Counted Differential Comment Immature Plt Fraction Polychromasia Hypochromasia Anisocytosis Microcytosis Retic Count Immature Retic Fraction Retic Hgb Equivalent Specimen Type Sample Site pH Bicarbonate Actual POC Total CO2 Base Excess O2 Saturation O2 % ABG pCO2 ABG pO2 Respiration Rate O2 Delivery Device Minute Volume Vent Mode Tidal Volume POC PEEP Blood Gas Notified Whom Blood Gas Notified Time Sodium 140 139 Potassium 4.2 4.2 Chloride 104 103 Carbon Dioxide 25.0 26.0 Anion Gap 11 10 BUN 20 H 21 H Creatinine 0.67 L 0.61 L Estim Creat Clear Calc 111.32 122.27 Est GFR (MDRD) Af Amer 157 173 Est GFR (MDRD) Non-Af 130 143 BUN/Creatinine Ratio 30.0 H 34.3 H Glucose 140 H 143 H Calcium 8.6 8.5 Phosphorus Magnesium 2.1 Iron TIBC Iron Saturation Ferritin Total Bilirubin 0.70 AST 30 ALT 32 Alkaline Phosphatase 92 Troponin I 0.08 H Total Protein 7.4 Albumin 3.0 L Globulin 4.4 H Albumin/Globulin Ratio 0.7 L Urine Opiates Screen Urine Methadone Screen Ur Barbiturates Screen Ur Phencyclidine Scrn Ur Amphetamines Screen U Methamphetamin-MDMA U Benzodiazepines Scrn Urine Cocaine Screen U Cannabinoids Screen Ur Drug Screen Comment Ethyl Alcohol MRSA (PCR) POSITIVE H 12/11/17 12/11/17 12/11/17 05:50 05:50 05:50 WBC 6.3 RBC 4.17 L Hgb 9.2 L Hct 30.8 L MCV 73.9 L MCH 22.1 L MCHC 29.9 L RDW 20.1 H RDW Differential 52.6 H Plt Count 403 MPV 8.7 Immature Gran % (Auto) 0.500 Neut % (Auto) 91.6 H Lymph % (Auto) 6.7 L Wilkinson % (Auto) 1.0 Eos % (Auto) 0.0 Baso % (Auto) 0.2 Absolute Neuts (auto) 5.8 Absolute Lymphs (auto) 0.42 L Total Counted Not Reportable Differential Comment SCAN Immature Plt Fraction 0.9 L Polychromasia 1+ Hypochromasia 1+ Anisocytosis 1+ Microcytosis 1+ Retic Count 1.43 Immature Retic Fraction 20.80 H Retic Hgb Equivalent 21.3 L Specimen Type Sample Site pH Bicarbonate Actual POC Total CO2 Base Excess O2 Saturation O2 % ABG pCO2 ABG pO2 Respiration Rate O2 Delivery Device Minute Volume Vent Mode Tidal Volume POC PEEP Blood Gas Notified Whom Blood Gas Notified Time Sodium Potassium Chloride Carbon Dioxide Anion Gap BUN Creatinine Estim Creat Clear Calc Est GFR (MDRD) Af Amer Est GFR (MDRD) Non-Af BUN/Creatinine Ratio Glucose Calcium Phosphorus Magnesium Iron 27 L TIBC 439 Iron Saturation 6.2 L Ferritin 46 Total Bilirubin AST ALT Alkaline Phosphatase Troponin I Total Protein Albumin Globulin Albumin/Globulin Ratio Urine Opiates Screen Urine Methadone Screen Ur Barbiturates Screen Ur Phencyclidine Scrn Ur Amphetamines Screen U Methamphetamin-MDMA U Benzodiazepines Scrn Urine Cocaine Screen U Cannabinoids Screen Ur Drug Screen Comment Ethyl Alcohol MRSA (PCR) 12/11/17 12/11/17 12/11/17 05:50 06:11 08:35 WBC RBC Hgb Hct MCV MCH MCHC RDW RDW Differential Plt Count MPV Immature Gran % (Auto) Neut % (Auto) Lymph % (Auto) Wilkinson % (Auto) Eos % (Auto) Baso % (Auto) Absolute Neuts (auto) Absolute Lymphs (auto) Total Counted Differential Comment Immature Plt Fraction Polychromasia Hypochromasia Anisocytosis Microcytosis Retic Count Immature Retic Fraction Retic Hgb Equivalent Specimen Type ART Sample Site R Radial pH 7.46 H Bicarbonate Actual 28.5 H POC Total CO2 30 Base Excess 5 H O2 Saturation 100 H O2 % 40 ABG pCO2 40.3 ABG pO2 187 H Respiration Rate 14 O2 Delivery Device Vent Minute Volume 10.00 Vent Mode A-C Tidal Volume 500 POC PEEP 5 Blood Gas Notified Whom [facility] Blood Gas Notified Time 605 Sodium Potassium Chloride Carbon Dioxide Anion Gap BUN Creatinine Estim Creat Clear Calc Est GFR (MDRD) Af Amer Est GFR (MDRD) Non-Af BUN/Creatinine Ratio Glucose Calcium Phosphorus 5.2 H Magnesium Iron TIBC Iron Saturation Ferritin Total Bilirubin AST ALT Alkaline Phosphatase Troponin I Total Protein Albumin Globulin Albumin/Globulin Ratio Urine Opiates Screen NEGATIVE Urine Methadone Screen NEGATIVE Ur Barbiturates Screen NEGATIVE Ur Phencyclidine Scrn NEGATIVE Ur Amphetamines Screen NEGATIVE U Methamphetamin-MDMA NEGATIVE U Benzodiazepines Scrn POSITIVE H Urine Cocaine Screen NEGATIVE U Cannabinoids Screen NEGATIVE Ur Drug Screen Comment Ethyl Alcohol MRSA (PCR) 12/11/17 12/11/17 12/11/17 08:55 09:20 13:15 WBC RBC Hgb Hct MCV MCH MCHC RDW RDW Differential Plt Count MPV Immature Gran % (Auto) Neut % (Auto) Lymph % (Auto) Wilkinson % (Auto) Eos % (Auto) Baso % (Auto) Absolute Neuts (auto) Absolute Lymphs (auto) Total Counted Differential Comment Immature Plt Fraction Polychromasia Hypochromasia Anisocytosis Microcytosis Retic Count Immature Retic Fraction Retic Hgb Equivalent Specimen Type Sample Site pH Bicarbonate Actual POC Total CO2 Base Excess O2 Saturation O2 % ABG pCO2 ABG pO2 Respiration Rate O2 Delivery Device Minute Volume Vent Mode Tidal Volume POC PEEP Blood Gas Notified Whom Blood Gas Notified Time Sodium Potassium Chloride Carbon Dioxide Anion Gap BUN Creatinine Estim Creat Clear Calc Est GFR (MDRD) Af Amer Est GFR (MDRD) Non-Af BUN/Creatinine Ratio Glucose Calcium Phosphorus Magnesium Iron TIBC Iron Saturation Ferritin Total Bilirubin AST ALT Alkaline Phosphatase Troponin I 0.08 H 0.08 H Total Protein Albumin Globulin Albumin/Globulin Ratio Urine Opiates Screen Urine Methadone Screen Ur Barbiturates Screen Ur Phencyclidine Scrn Ur Amphetamines Screen U Methamphetamin-MDMA U Benzodiazepines Scrn Urine Cocaine Screen U Cannabinoids Screen Ur Drug Screen Comment Ethyl Alcohol 4.0 MRSA (PCR) 12/11/17 12/11/17 12/12/17 16:15 19:00 04:15 WBC 12.3 H RBC 4.27 L Hgb 9.4 L Hct 31.7 L MCV 74.2 L MCH 22.0 L MCHC 29.7 L RDW 20.4 H RDW Differential 53.5 H Plt Count 451 H MPV 8.7 Immature Gran % (Auto) Neut % (Auto) Lymph % (Auto) Wilkinson % (Auto) Eos % (Auto) Baso % (Auto) Absolute Neuts (auto) Absolute Lymphs (auto) Total Counted Differential Comment SCAN Immature Plt Fraction Polychromasia Hypochromasia Anisocytosis Microcytosis Retic Count Immature Retic Fraction Retic Hgb Equivalent Specimen Type Sample Site pH Bicarbonate Actual POC Total CO2 Base Excess O2 Saturation O2 % ABG pCO2 ABG pO2 Respiration Rate O2 Delivery Device Minute Volume Vent Mode Tidal Volume POC PEEP Blood Gas Notified Whom Blood Gas Notified Time Sodium 141 Potassium 4.3 Chloride 106 Carbon Dioxide 29.0 Anion Gap 6 BUN 22 H Creatinine 0.56 L Estim Creat Clear Calc 133.19 Est GFR (MDRD) Af Amer 190 Est GFR (MDRD) Non-Af 157 BUN/Creatinine Ratio 38.9 H Glucose 119 H Calcium 8.3 L Phosphorus Magnesium Iron TIBC Iron Saturation Ferritin Total Bilirubin AST ALT Alkaline Phosphatase Troponin I 0.09 H Total Protein Albumin Globulin Albumin/Globulin Ratio Urine Opiates Screen Urine Methadone Screen Ur Barbiturates Screen Ur Phencyclidine Scrn Ur Amphetamines Screen U Methamphetamin-MDMA U Benzodiazepines Scrn Urine Cocaine Screen U Cannabinoids Screen Ur Drug Screen Comment Ethyl Alcohol MRSA (PCR) 12/12/17 04:15 WBC RBC Hgb Hct MCV MCH MCHC RDW RDW Differential Plt Count MPV Immature Gran % (Auto) Neut % (Auto) Lymph % (Auto) Wilkinson % (Auto) Eos % (Auto) Baso % (Auto) Absolute Neuts (auto) Absolute Lymphs (auto) Total Counted Differential Comment Immature Plt Fraction Polychromasia Hypochromasia Anisocytosis Microcytosis Retic Count Immature Retic Fraction Retic Hgb Equivalent Specimen Type Sample Site pH Bicarbonate Actual POC Total CO2 Base Excess O2 Saturation O2 % ABG pCO2 ABG pO2 Respiration Rate O2 Delivery Device Minute Volume Vent Mode Tidal Volume POC PEEP Blood Gas Notified Whom Blood Gas Notified Time Sodium 142 Potassium 4.3 Chloride 103 Carbon Dioxide 31.0 Anion Gap 8 BUN 27 H Creatinine 0.68 L Estim Creat Clear Calc 109.69 Est GFR (MDRD) Af Amer 154 Est GFR (MDRD) Non-Af 127 BUN/Creatinine Ratio 39.8 H Glucose 127 H Calcium 8.3 L Phosphorus 4.4 Magnesium 2.3 Iron TIBC Iron Saturation Ferritin Total Bilirubin AST ALT Alkaline Phosphatase Troponin I Total Protein Albumin Globulin Albumin/Globulin Ratio Urine Opiates Screen Urine Methadone Screen Ur Barbiturates Screen Ur Phencyclidine Scrn Ur Amphetamines Screen U Methamphetamin-MDMA U Benzodiazepines Scrn Urine Cocaine Screen U Cannabinoids Screen Ur Drug Screen Comment Ethyl Alcohol MRSA (PCR) Microbiology 12/11/17 11:10 Sputum, Induced/Lukens Gram Stain - Final 12/11/17 07:25 Mucosa - Nose Respiratory Panel (PCR) - Final Clinical Impression(s) from Imaging Studies Chest X-Ray 12/10/17 23:05 IMPRESSION: No evidence of focal consolidation or acute process. Electronically Signed: Noel Saha DO at 23:23 EDT , Service support , Chest X-Ray 12/11/17 00:01 IMPRESSION: The NG tube is just past the gastroesophageal junction and could be advanced 5 to 10 cm. Endotracheal tube in satisfactory position. Cardiomegaly. Electronically Signed: Elizabeth Welsh MD at 1:01 EDT Tel , Service support , Chest X-Ray 12/11/17 07:09 IMPRESSION: Mild increased markings at the left lung base suggesting atelectasis. Support tubes are in good position. Electronically Signed: Darrick Coreas MD at 11:05 EDT Tel [phone], Service support , Chest X-Ray 12/12/17 05:55 IMPRESSION: Decrease of previous interstitial prominence likely superimposed component of COPD. There is borderline cardiac size. Other nonacute findings as outlined above. No pulmonary edema, congestive heart failure or confluent pneumonia. Electronically Signed: Ilsa Lobato MD at 6:15 EDT , Service support , Assessment/Plan RECOMMENDATIONS: 1. The patient is appropriate for a trial of extubation this morning. 2. Once extubated, wean supplemental oxygen as tolerated. Encourage incentive spirometer use. 3. Continue scheduled aerosol treatments and steroids. Prednisone can be started tomorrow. 4. Restart home cardiac medications. Cardiology is following. 5. Perform bedside swallow evaluation and advance diet accordingly. 6. Remove Linn catheter and mobilize patient as tolerated. IMPRESSIONS: 1. Acute on chronic hypoxemic respiratory failure likely secondary to decompensated heart failure The patient has responded well to the use of invasive mechanical ventilation and is currently a candidate to proceed with extubation. Once extubated, wean supplemental oxygen as tolerated. Continue diuretics as ordered. Encourage incentive spirometer use and mobilize patient as tolerated. We will plan to continue scheduled aerosol treatments with plans to transition from IV steroids to prednisone beginning tomorrow. 2. Severe ischemic cardiomyopathy/troponin elevation As above, will continue diuretics, beta-emani and ARB. Cardiology is following accordingly. Appreciate recommendations regarding medical management. 3. Questionable COPD of unknown severity/tobacco dependence This is a presumptive diagnosis, as there are no PFTs on file for review. We will plan to continue scheduled aerosol treatments as ordered, along with IV Solu-Medrol. Steroids can be transitioned to prednisone beginning tomorrow. Outpatient pulmonary follow-up and PFTs are strongly recommended. Smoking cessation is strongly advisable. Nicotine replacement therapy can be offered to the patient while he is admitted to the hospital. 4. Microcytic anemia/history of alcohol abuse/suspected illicit drug use Complicates care, management, recovery and prognosis. Continue supportive measures as noted above. Recommend physical therapy evaluation. TIME: 40 minutes of critical care time, independent of procedures, was spent addressing the patient's acute on chronic respiratory failure, decompensated heart failure, severe ischemic cardiomyopathy, troponin elevation, baseline COPD , review of all data and collaboration with the care team. ([id number]) Code Visit 9xxxx: [id number] Critical care first hour
--- NOTE | 2017-12-12 07:23 | PCM.PROGNOTE ---
Patient Problems: Active and Suspected Problems COPD exacerbation (Acute) Acute respiratory failure with hypoxemia (Acute) Elevated troponin (Acute) Iron deficiency anemia (Acute) NSVT (nonsustained ventricular tachycardia) (Acute) Acute bronchitis (Acute) Systolic CHF, acute on chronic (Acute) Subjective: Ventilator Day #2. Extubated 12/12 in the AM TMAX: has been Afebrile for the duration of his hospital stay Vital signs: He has ST today while on SBT. Blood pressures have ranged from 88/57 to 130/88. Fluid balance: -4753 since admission. Urine output: Urine output on 12/11/2017 was 7025. Weight: Weight today is 139 lbs. 5 oz., down from 146 pounds and 2.6 ounces on 12/11/2017. All radiologic testing was reviewed: Chest x-ray today shows good improvement in the pulmonary vascular congestion. There are no infiltrates. No pleural effusions. All labs were personally reviewed: Hemoglobin is stable at 9.4. Platelets are increased at 451,000 and the white blood cell count is 12.3 but he is on high-dose steroids. Iron studies showed a low serum iron at 27 with a elevated TIBC at 439 and low iron saturation at 6.2%. Ferritin was 46. Troponins are elevated but did not trend. The highest troponin was 0.09. Microbiology: Respiratory panel was negative. Sputum Gram stain shows 2+ white blood cells and the culture is pending. Telemetry - NSR, ST, PAC's and a few brief runs NSVT Objective: - Physical Exam General: Alert, No apparent distress, Well developed, Well nourished HEENT: Atraumatic, PERRLA, EOMI Neck: Supple, No JVD, Trachea Midline Lungs: Clear to auscultation Cardiovascular: Regular rate, Regular Rhythm, Normal S1, Normal S2, No Gallop Abdomen: Bowel Sounds Present, Soft, Non Tender, Non-Distended Extremities: No cyanosis, No edema Skin: No rashes, - - Warm and dry, no diaphoresis Musculoskeletal: No Muscle Wasting Neurological: Cranial nerves II-XII grossly intact, Neuro grossly intact Vital Signs Temp Pulse Resp BP Pulse Ox 99.4 F H 107 H 14 130/88 H 98 12/12/17 06:00 12/12/17 07:10 12/12/17 06:00 12/12/17 07:00 12/12/17 07:00 Oxygen Delivery Method Mechanical Ventilator Weight: 139 lb 5.314 oz Body Mass Index (BMI) 20.5 Intake and Output for Last 24 Hours 12/10/17 12/11/17 12/12/17 23:59 23:59 23:59 Intake Total 1997 574 / 574 Output Total 7025 / 7025 300 / 300 Balance -5027 / -5027 274 / 274 Microbiology Past 72 Hours 12/11/17 11:10 Gram Stain - Final Sputum, Induced/Lukens 12/11/17 07:25 Respiratory Panel (PCR) - Final Mucosa - Nose Laboratory Tests Past 24 Hrs 12/11/17 12/11/17 12/11/17 05:50 05:50 05:50 WBC RBC Hgb Hct MCV MCH MCHC RDW RDW Differential Plt Count MPV Differential Comment Immature Plt Fraction 0.9 L Retic Count 1.43 Immature Retic Fraction 20.80 H Retic Hgb Equivalent 21.3 L Sodium 140 Potassium 4.2 Chloride 104 Carbon Dioxide 25.0 Anion Gap 11 BUN 20 H Creatinine 0.67 L Estim Creat Clear Calc 111.32 Est GFR (MDRD) Af Amer 157 Est GFR (MDRD) Non-Af 130 BUN/Creatinine Ratio 30.0 H Glucose 140 H Calcium 8.6 Phosphorus Magnesium Iron 27 L TIBC 439 Iron Saturation 6.2 L Ferritin 46 Total Bilirubin 0.70 AST 30 ALT 32 Alkaline Phosphatase 92 Troponin I 0.08 H Total Protein 7.4 Albumin 3.0 L Globulin 4.4 H Albumin/Globulin Ratio 0.7 L Urine Opiates Screen Urine Methadone Screen Ur Barbiturates Screen Ur Phencyclidine Scrn Ur Amphetamines Screen U Methamphetamin-MDMA U Benzodiazepines Scrn Urine Cocaine Screen U Cannabinoids Screen Ur Drug Screen Comment Ethyl Alcohol 12/11/17 12/11/17 12/11/17 05:50 08:35 08:55 WBC RBC Hgb Hct MCV MCH MCHC RDW RDW Differential Plt Count MPV Differential Comment Immature Plt Fraction Retic Count Immature Retic Fraction Retic Hgb Equivalent Sodium Potassium Chloride Carbon Dioxide Anion Gap BUN Creatinine Estim Creat Clear Calc Est GFR (MDRD) Af Amer Est GFR (MDRD) Non-Af BUN/Creatinine Ratio Glucose Calcium Phosphorus 5.2 H Magnesium Iron TIBC Iron Saturation Ferritin Total Bilirubin AST ALT Alkaline Phosphatase Troponin I Total Protein Albumin Globulin Albumin/Globulin Ratio Urine Opiates Screen NEGATIVE Urine Methadone Screen NEGATIVE Ur Barbiturates Screen NEGATIVE Ur Phencyclidine Scrn NEGATIVE Ur Amphetamines Screen NEGATIVE U Methamphetamin-MDMA NEGATIVE U Benzodiazepines Scrn POSITIVE H Urine Cocaine Screen NEGATIVE U Cannabinoids Screen NEGATIVE Ur Drug Screen Comment Ethyl Alcohol 4.0 12/11/17 12/11/17 12/11/17 09:20 13:15 16:15 WBC RBC Hgb Hct MCV MCH MCHC RDW RDW Differential Plt Count MPV Differential Comment Immature Plt Fraction Retic Count Immature Retic Fraction Retic Hgb Equivalent Sodium 141 Potassium 4.3 Chloride 106 Carbon Dioxide 29.0 Anion Gap 6 BUN 22 H Creatinine 0.56 L Estim Creat Clear Calc 133.19 Est GFR (MDRD) Af Amer 190 Est GFR (MDRD) Non-Af 157 BUN/Creatinine Ratio 38.9 H Glucose 119 H Calcium 8.3 L Phosphorus Magnesium Iron TIBC Iron Saturation Ferritin Total Bilirubin AST ALT Alkaline Phosphatase Troponin I 0.08 H 0.08 H Total Protein Albumin Globulin Albumin/Globulin Ratio Urine Opiates Screen Urine Methadone Screen Ur Barbiturates Screen Ur Phencyclidine Scrn Ur Amphetamines Screen U Methamphetamin-MDMA U Benzodiazepines Scrn Urine Cocaine Screen U Cannabinoids Screen Ur Drug Screen Comment Ethyl Alcohol 12/11/17 12/12/17 12/12/17 19:00 04:15 04:15 WBC 12.3 H RBC 4.27 L Hgb 9.4 L Hct 31.7 L MCV 74.2 L MCH 22.0 L MCHC 29.7 L RDW 20.4 H RDW Differential 53.5 H Plt Count 451 H MPV 8.7 Differential Comment SCAN Immature Plt Fraction Retic Count Immature Retic Fraction Retic Hgb Equivalent Sodium 142 Potassium 4.3 Chloride 103 Carbon Dioxide 31.0 Anion Gap 8 BUN 27 H Creatinine 0.68 L Estim Creat Clear Calc 109.69 Est GFR (MDRD) Af Amer 154 Est GFR (MDRD) Non-Af 127 BUN/Creatinine Ratio 39.8 H Glucose 127 H Calcium 8.3 L Phosphorus 4.4 Magnesium 2.3 Iron TIBC Iron Saturation Ferritin Total Bilirubin AST ALT Alkaline Phosphatase Troponin I 0.09 H Total Protein Albumin Globulin Albumin/Globulin Ratio Urine Opiates Screen Urine Methadone Screen Ur Barbiturates Screen Ur Phencyclidine Scrn Ur Amphetamines Screen U Methamphetamin-MDMA U Benzodiazepines Scrn Urine Cocaine Screen U Cannabinoids Screen Ur Drug Screen Comment Ethyl Alcohol Assessment/Plan Active and Suspected Problems COPD exacerbation (Acute) Acute respiratory failure with hypoxemia (Acute) Elevated troponin (Acute) Iron deficiency anemia (Acute) NSVT (nonsustained ventricular tachycardia) (Acute) Acute bronchitis (Acute) Systolic CHF, acute on chronic (Acute) Impressions 1. acute respiratory failure with hypoxemia due to acute on chronic systolic CHF - extubated today 2. acute on Chronic systolic CHF 3. severe CM with a 10-15% EF in the past 4. CAD with a hx of multiple stents. Was scheduled for a CABG in [place] on October of 2016 and he did not show up 5. External defibrillator in the past.......signed out AMA when we were waiting for new batteries to come in October 2016.....brother states he has not had a life vest since coming back to [place] 1 week ago 6. elevated troponin - not trending 7. COPD 8. Hx of heavy alcohol use and suspected Drug abuse 9. Microcytic anemia - due to iron deficeincy 10. ongoing tobacco dependence despite CAD, CHF, COPD and hypoxia 11. Hyperphosphatemia 12. MRSA bronchitis...no evidence of PNA on the CXR Plan on cath on Sunday Maintain in the ICU tonight and if stable in the AM Start Vancomycin for MRSA acute bronchitis Recheck the lab in the AM Will need an AICD going forward....Does not know where the life vest is. He has a long hx of non-compliance......He may benefit from [facility] in the future after he gets insurance to help him organize his medications....I suspect he may have some mental Health problems Code Visit Inpatient E&M: 36198 Subs Hosp L3
--- NOTE | 2017-12-12 07:33 | PN_ITS ---
Patient Problems: Active and Suspected Problems COPD exacerbation (Acute) Acute respiratory failure with hypoxemia (Acute) Elevated troponin (Acute) Iron deficiency anemia (Acute) NSVT (nonsustained ventricular tachycardia) (Acute) Acute bronchitis (Acute) Systolic CHF, acute on chronic (Acute) Subjective: Ventilator Day #2. Extubated 12/12 in the AM TMAX: has been Afebrile for the duration of his hospital stay Vital signs: He has ST today while on SBT. Blood pressures have ranged from 88/ 57 to 130/88. Fluid balance: -4753 since admission. Urine output: Urine output on 12/11/2017 was 7025. Weight: Weight today is 139 lbs. 5 oz., down from 146 pounds and 2.6 ounces on . All radiologic testing was reviewed: Chest x-ray today shows good improvement in the pulmonary vascular congestion. There are no infiltrates. No pleural effusions. All labs were personally reviewed: Hemoglobin is stable at 9.4. Platelets are increased at 451,000 and the white blood cell count is 12.3 but he is on high- dose steroids. Iron studies showed a low serum iron at 27 with a elevated TIBC at 439 and low iron saturation at 6.2%. Ferritin was 46. Troponins are elevated but did not trend. The highest troponin was 0.09. Microbiology: Respiratory panel was negative. Sputum Gram stain shows 2+ white blood cells and the culture is pending. Telemetry - NSR, ST, PAC's and a few brief runs NSVT Objective: - Physical Exam General: Alert, No apparent distress, Well developed, Well nourished HEENT: Atraumatic, PERRLA, EOMI Neck: Supple, No JVD, Trachea Midline Lungs: Clear to auscultation Cardiovascular: Regular rate, Regular Rhythm, Normal S1, Normal S2, No Gallop Abdomen: Bowel Sounds Present, Soft, Non Tender, Non-Distended Extremities: No cyanosis, No edema Skin: No rashes, - - Warm and dry, no diaphoresis Musculoskeletal: No Muscle Wasting Neurological: Cranial nerves II-XII grossly intact, Neuro grossly intact Vital Signs Temp Pulse Resp BP Pulse Ox 99.4 F H 107 H 14 130/88 H 98 12/12/17 06:00 12/12/17 07:10 12/12/17 06:00 12/12/17 07:00 12/12/17 07:00 Oxygen Delivery Method Mechanical Ventilator Weight: 139 lb 5.314 oz Body Mass Index (BMI) 20.5 Intake and Output for Last 24 Hours 12/10/17 12/11/17 12/12/17 23:59 23:59 23:59 Intake Total 1997 574 / 574 Output Total 7025 / 7025 300 / 300 Balance -5027 / -5027 274 / 274 Microbiology Past 72 Hours 12/11/17 11:10 Gram Stain - Final Sputum, Induced/Lukens 12/11/17 07:25 Respiratory Panel (PCR) - Final Mucosa - Nose Laboratory Tests Past 24 Hrs 12/11/17 12/11/17 12/11/17 05:50 05:50 05:50 WBC RBC Hgb Hct MCV MCH MCHC RDW RDW Differential Plt Count MPV Differential Comment Immature Plt Fraction 0.9 L Retic Count 1.43 Immature Retic Fraction 20.80 H Retic Hgb Equivalent 21.3 L Sodium 140 Potassium 4.2 Chloride 104 Carbon Dioxide 25.0 Anion Gap 11 BUN 20 H Creatinine 0.67 L Estim Creat Clear Calc 111.32 Est GFR (MDRD) Af Amer 157 Est GFR (MDRD) Non-Af 130 BUN/Creatinine Ratio 30.0 H Glucose 140 H Calcium 8.6 Phosphorus Magnesium Iron 27 L TIBC 439 Iron Saturation 6.2 L Ferritin 46 Total Bilirubin 0.70 AST 30 ALT 32 Alkaline Phosphatase 92 Troponin I 0.08 H Total Protein 7.4 Albumin 3.0 L Globulin 4.4 H Albumin/Globulin Ratio 0.7 L Urine Opiates Screen Urine Methadone Screen Ur Barbiturates Screen Ur Phencyclidine Scrn Ur Amphetamines Screen U Methamphetamin-MDMA U Benzodiazepines Scrn Urine Cocaine Screen U Cannabinoids Screen Ur Drug Screen Comment Ethyl Alcohol 12/11/17 12/11/17 12/11/17 05:50 08:35 08:55 WBC RBC Hgb Hct MCV MCH MCHC RDW RDW Differential Plt Count MPV Differential Comment Immature Plt Fraction Retic Count Immature Retic Fraction Retic Hgb Equivalent Sodium Potassium Chloride Carbon Dioxide Anion Gap BUN Creatinine Estim Creat Clear Calc Est GFR (MDRD) Af Amer Est GFR (MDRD) Non-Af BUN/Creatinine Ratio Glucose Calcium Phosphorus 5.2 H Magnesium Iron TIBC Iron Saturation Ferritin Total Bilirubin AST ALT Alkaline Phosphatase Troponin I Total Protein Albumin Globulin Albumin/Globulin Ratio Urine Opiates Screen NEGATIVE Urine Methadone Screen NEGATIVE Ur Barbiturates Screen NEGATIVE Ur Phencyclidine Scrn NEGATIVE Ur Amphetamines Screen NEGATIVE U Methamphetamin-MDMA NEGATIVE U Benzodiazepines Scrn POSITIVE H Urine Cocaine Screen NEGATIVE U Cannabinoids Screen NEGATIVE Ur Drug Screen Comment Ethyl Alcohol 4.0 12/11/17 12/11/17 12/11/17 09:20 13:15 16:15 WBC RBC Hgb Hct MCV MCH MCHC RDW RDW Differential Plt Count MPV Differential Comment Immature Plt Fraction Retic Count Immature Retic Fraction Retic Hgb Equivalent Sodium 141 Potassium 4.3 Chloride 106 Carbon Dioxide 29.0 Anion Gap 6 BUN 22 H Creatinine 0.56 L Estim Creat Clear Calc 133.19 Est GFR (MDRD) Af Amer 190 Est GFR (MDRD) Non-Af 157 BUN/Creatinine Ratio 38.9 H Glucose 119 H Calcium 8.3 L Phosphorus Magnesium Iron TIBC Iron Saturation Ferritin Total Bilirubin AST ALT Alkaline Phosphatase Troponin I 0.08 H 0.08 H Total Protein Albumin Globulin Albumin/Globulin Ratio Urine Opiates Screen Urine Methadone Screen Ur Barbiturates Screen Ur Phencyclidine Scrn Ur Amphetamines Screen U Methamphetamin-MDMA U Benzodiazepines Scrn Urine Cocaine Screen U Cannabinoids Screen Ur Drug Screen Comment Ethyl Alcohol 12/11/17 12/12/17 12/12/17 19:00 04:15 04:15 WBC 12.3 H RBC 4.27 L Hgb 9.4 L Hct 31.7 L MCV 74.2 L MCH 22.0 L MCHC 29.7 L RDW 20.4 H RDW Differential 53.5 H Plt Count 451 H MPV 8.7 Differential Comment SCAN Immature Plt Fraction Retic Count Immature Retic Fraction Retic Hgb Equivalent Sodium 142 Potassium 4.3 Chloride 103 Carbon Dioxide 31.0 Anion Gap 8 BUN 27 H Creatinine 0.68 L Estim Creat Clear Calc 109.69 Est GFR (MDRD) Af Amer 154 Est GFR (MDRD) Non-Af 127 BUN/Creatinine Ratio 39.8 H Glucose 127 H Calcium 8.3 L Phosphorus 4.4 Magnesium 2.3 Iron TIBC Iron Saturation Ferritin Total Bilirubin AST ALT Alkaline Phosphatase Troponin I 0.09 H Total Protein Albumin Globulin Albumin/Globulin Ratio Urine Opiates Screen Urine Methadone Screen Ur Barbiturates Screen Ur Phencyclidine Scrn Ur Amphetamines Screen U Methamphetamin-MDMA U Benzodiazepines Scrn Urine Cocaine Screen U Cannabinoids Screen Ur Drug Screen Comment Ethyl Alcohol Assessment/Plan Active and Suspected Problems COPD exacerbation (Acute) Acute respiratory failure with hypoxemia (Acute) Elevated troponin (Acute) Iron deficiency anemia (Acute) NSVT (nonsustained ventricular tachycardia) (Acute) Acute bronchitis (Acute) Systolic CHF, acute on chronic (Acute) Impressions 1. acute respiratory failure with hypoxemia due to acute on chronic systolic CHF - extubated today 2. acute on Chronic systolic CHF 3. severe CM with a 10-15% EF in the past 4. CAD with a hx of multiple stents. Was scheduled for a CABG in [place] on October of 2016 and he did not show up 5. External defibrillator in the past.......signed out AMA when we were waiting for new batteries to come in October 2016.....brother states he has not had a life vest since coming back to [place] 1 week ago 6. elevated troponin - not trending 7. COPD 8. Hx of heavy alcohol use and suspected Drug abuse 9. Microcytic anemia - due to iron deficeincy 10. ongoing tobacco dependence despite CAD, CHF, COPD and hypoxia 11. Hyperphosphatemia 12. MRSA bronchitis...no evidence of PNA on the CXR Plan on cath on Sunday Maintain in the ICU tonight and if stable in the AM Start Vancomycin for MRSA acute bronchitis Recheck the lab in the AM Will need an AICD going forward....Does not know where the life vest is. He has a long hx of non-compliance......He may benefit from [facility] in the future after he gets insurance to help him organize his medications....I suspect he may have some mental Health problems Code Visit Inpatient E&M: 69822 Subs Hosp L3
[2017-12-12] MEDS: Aspirin 81 MG TAB.CHEW PO (10:25)
[2017-12-12] MEDS: Carvedilol 3.125 MG TABLET PO (10:25)
[2017-12-12] MEDS: Clopidogrel Bisulfate 75 MG Tablet PO (10:25)
[2017-12-12] MEDS: Enoxaparin 40 MG/0.4 ML Syringe SC (10:26)
[2017-12-12] MEDS: Losartan Potassium 25 MG Tablet PO (10:26)
[2017-12-12] MEDS: Furosemide 40 MG/4 ML Vial IV (10:26)
[2017-12-12] MEDS: Famotidine 20 MG Tablet GT ×2 (10:26→21:38)
--- NOTE | 2017-12-12 11:32 | CASEMGMT ---
Pt is now extubated. SW spoke w/our financial dept, someone will come to see him this afternoon. SW met w/pt in room, pt states is staying w/his brother Angel in [place], but plans to move to [place] permanently, pt is here from [place]. Pt agreeable to complete a Medicaid application. Pt states is normally independent with ADL's, does use a cane to ambulate. Pt has a walker also. Pt explained he cannot get his meds as his Medicaid in [place] does not transfer to [place]. SW gave pt resources on information for both [place] and [facility], including a list of resources for [place], [employer], [facility] assist, 211, [place], food pantries. Pt will need assist w/meds at discharge if he has not yet used the hospital program this year, as he will not be able to use [employer]. Pt states he cannot afford any of the meds, mentioned his pain med in particular. SW explained that the hospital program cannot help w/pain meds. Pt states if he can't get his pain meds, there is no point in getting any of them. Pt states he worked 14-15 hours per year for many years and how he has nothing. SW offered support. SW explained again we can use the hospital program for the other meds and perhaps he can pay for his pain meds. Pt states he might be able to do that, as long as the doctor writes the script for it. SW asked pt if he is truly going to stay here, pt states yes. The only person in [place] is his and they are not together anymore. SW asked pt about drinking, pt states no longer drinks, stopped after a health scare a few years ago. Pt declined any additional information on supportive counseling. SW will continue to follow for med assist at discharge. FRANCIA Vasquez, MOLDED GOODS INSPECTOR TRIMMER
--- NOTE | 2017-12-12 11:58 | PCM.PN.CARD ---
Subjectve: Patient doing remarkably well despite his severe LV dysfunction, extubated this morning and sitting up in a chair. The patient states that he had a left heart catheterization approximately 1 week ago in [place], the of the right radial approach, and reportedly all of his stents were open at that time. The old records that we have gotten so far do not indicate that he had a left heart catheterization as recently as a couple weeks ago, so we will attempt to find that report. We cannot located, the patient may require a repeat catheterization, to make sure his stents are open. Patient is diuresed approximately 5 L since admission. Patient admits to dietary and salt indiscretion at home prior to admission. He had no anginal symptoms consistent with previous coronary ischemia prior to admission, but rather mostly shortness of breath and dyspnea. Objective: Vital Signs Temp Pulse Resp BP Pulse Ox 99.3 F H 83 14 97/74 99 12/12/17 08:00 12/12/17 11:12 12/12/17 11:00 12/12/17 11:00 12/12/17 11:00 Oxygen Flow Rate (L/min) 2 Oxygen Delivery Method Nasal Cannula Weight: 139 lb 5.314 oz Body Mass Index (BMI) 20.5 Intake and Output for Last 24 Hours 12/10/17 12/11/17 12/12/17 23:59 23:59 23:59 Intake Total 1997 1398 / 1398 Output Total 7025 / 7025 1250 / 1250 Balance -5027 / -5027 148 / 148 General: Awake, Alert, Oriented x 3 HEENT: PERRL, EOMI, Sclera Non Icteric Neck: Supple, Good ROM, No Lymph Node Enlargement Lungs: Clear to auscultation Cardiovascular: Regular Rhythm, Normal S1, Normal S2, No Murmurs, No Rubs, No Gallops 12/11/17 13:15: Troponin I 0.08 H 12/11/17 16:15: Sodium 141, Potassium 4.3, Chloride 106, Carbon Dioxide 29.0, Anion Gap 6, BUN 22 H, Creatinine 0.56 L, Est GFR (MDRD) Af Amer 190, Est GFR (MDRD) Non-Af 157, BUN/Creatinine Ratio 38.9 H, Glucose 119 H, Calcium 8.3 L 12/11/17 19:00: Troponin I 0.09 H 12/12/17 04:15: WBC 12.3 H, RBC 4.27 L, Hgb 9.4 L, Hct 31.7 L, MCV 74.2 L, MCH 22.0 L, MCHC 29.7 L, RDW 20.4 H, RDW Differential 53.5 H, Plt Count 451 H, MPV 8.7 12/12/17 04:15: Sodium 142, Potassium 4.3, Chloride 103, Carbon Dioxide 31.0, Anion Gap 8, BUN 27 H, Creatinine 0.68 L, Est GFR (MDRD) Af Amer 154, Est GFR (MDRD) Non-Af 127, BUN/Creatinine Ratio 39.8 H, Glucose 127 H, Calcium 8.3 L, Phosphorus 4.4, Magnesium 2.3 Rhythm: EKG: ECHO: Stress Test: Cardiac Cath: PCI: CT Surgery: Holter monitor: EPS: PPM: CXR: Chest CT Scan: Assessment/Plan 1. Ischemic cardiomyopathy: The patient presumably has a history of ischemic cardiomyopathy,, the most recent catheterization that I can see on his old records occurred in September 22, 2015. At that time patient had patent stents to his LAD, left main was okay, patent distal left circumflex stent, and nonobstructive in-stent restenosis of his distal RCA stent. As best we can tell the patient did not have a repeat catheterization a week or so ago in [place], and reviewing his right radial area it is unclear as he had a art line and that artery during his intubation here at the hospital. At this point I would recommend judicious use of IV fluids, fluid restriction of 1500 cc per day, max concentration of all IV drips, and matching I's and O's on a daily basis. Patient's troponins have been relatively flat at 0.08?3 sets. His rhythm has remained stable. I believe the patient would benefit from repeat catheterization to ensure that his stents are open, particularly since he will require probably a LifeVest followed by an AICD for primary prophylaxis for sudden cardiac . I will have to check and see if the patient could remain in the area for him to undergo AICD placement by Dr. Kruger in 1 week's time. At this point I would recommend increasing his Coreg to 6.25 mill grams p.o. twice daily, and losartan 25 mg p.o. daily for afterload reduction. In addition recommend starting him on Lasix 40 mg p.o. twice daily and Aldactone 25 mg p.o. daily. He will require a BMP in 1 week's time to ensure that his potassium and sodium have remained within nominal limits. I have had a long and thorough discussion with the patient regarding his dietary and salt indiscretion, counseled him on avoiding recurrent CHF exacerbations with strict dietary measures. 2. COPD: The patient also comes with a diagnosis of COPD which may be superimposed on his LV dysfunction and CHF. Dr. Ahmadi consulted. 3. Tobacco cessation: The patient is apparently an active smoker, and would recommend highly that he discontinue all tobacco products. 4. Thank you very much for the opportunity to participate the cardiac care of your patient. Code Visit Inpatient E&M: 10864 Subs Hosp L2
--- NOTE | 2017-12-12 12:05 | PN.CARD_ITS ---
Subjectve: Patient doing remarkably well despite his severe LV dysfunction, extubated this morning and sitting up in a chair. The patient states that he had a left heart catheterization approximately 1 week ago in [place], the of the right radial approach, and reportedly all of his stents were open at that time. The old records that we have gotten so far do not indicate that he had a left heart catheterization as recently as a couple weeks ago, so we will attempt to find that report. We cannot located, the patient may require a repeat catheterization, to make sure his stents are open. Patient is diuresed approximately 5 L since admission. Patient admits to dietary and salt indiscretion at home prior to admission. He had no anginal symptoms consistent with previous coronary ischemia prior to admission, but rather mostly shortness of breath and dyspnea. Objective: Vital Signs Temp Pulse Resp BP Pulse Ox 99.3 F H 83 14 97/74 99 12/12/17 08:00 12/12/17 11:12 12/12/17 11:00 12/12/17 11:00 12/12/17 11:00 Oxygen Flow Rate (L/min) 2 Oxygen Delivery Method Nasal Cannula Weight: 139 lb 5.314 oz Body Mass Index (BMI) 20.5 Intake and Output for Last 24 Hours 12/10/17 12/11/17 12/12/17 23:59 23:59 23:59 Intake Total 1997 1398 / 1398 Output Total 7025 / 7025 1250 / 1250 Balance -5027 / -5027 148 / 148 General: Awake, Alert, Oriented x 3 HEENT: PERRL, EOMI, Sclera Non Icteric Neck: Supple, Good ROM, No Lymph Node Enlargement Lungs: Clear to auscultation Cardiovascular: Regular Rhythm, Normal S1, Normal S2, No Murmurs, No Rubs, No Gallops 12/11/17 13:15: Troponin I 0.08 H 12/11/17 16:15: Sodium 141, Potassium 4.3, Chloride 106, Carbon Dioxide 29.0, Anion Gap 6, BUN 22 H, Creatinine 0.56 L, Est GFR (MDRD) Af Amer 190, Est GFR ( MDRD) Non-Af 157, BUN/Creatinine Ratio 38.9 H, Glucose 119 H, Calcium 8.3 L 12/11/17 19:00: Troponin I 0.09 H 12/12/17 04:15: WBC 12.3 H, RBC 4.27 L, Hgb 9.4 L, Hct 31.7 L, MCV 74.2 L, MCH 22.0 L, MCHC 29.7 L, RDW 20.4 H, RDW Differential 53.5 H, Plt Count 451 H, MPV 8.7 12/12/17 04:15: Sodium 142, Potassium 4.3, Chloride 103, Carbon Dioxide 31.0, Anion Gap 8, BUN 27 H, Creatinine 0.68 L, Est GFR (MDRD) Af Amer 154, Est GFR ( MDRD) Non-Af 127, BUN/Creatinine Ratio 39.8 H, Glucose 127 H, Calcium 8.3 L, Phosphorus 4.4, Magnesium 2.3 Rhythm: EKG: ECHO: Stress Test: Cardiac Cath: PCI: CT Surgery: Holter monitor: EPS: PPM: CXR: Chest CT Scan: Assessment/Plan 1. Ischemic cardiomyopathy: The patient presumably has a history of ischemic cardiomyopathy,, the most recent catheterization that I can see on his old records occurred in September 22, 2015. At that time patient had patent stents to his LAD, left main was okay, patent distal left circumflex stent, and nonobstructive in-stent restenosis of his distal RCA stent. As best we can tell the patient did not have a repeat catheterization a week or so ago in [place], and reviewing his right radial area it is unclear as he had a art line and that artery during his intubation here at the hospital. At this point I would recommend judicious use of IV fluids, fluid restriction of 1500 cc per day, max concentration of all IV drips, and matching I's and O's on a daily basis. Patient's troponins have been relatively flat at 0.08?3 sets. His rhythm has remained stable. I believe the patient would benefit from repeat catheterization to ensure that his stents are open, particularly since he will require probably a LifeVest followed by an AICD for primary prophylaxis for sudden cardiac . I will have to check and see if the patient could remain in the area for him to undergo AICD placement by Dr. Kruger in 1 week's time. At this point I would recommend increasing his Coreg to 6.25 mill grams p.o. twice daily, and losartan 25 mg p.o. daily for afterload reduction. In addition recommend starting him on Lasix 40 mg p.o. twice daily and Aldactone 25 mg p.o. daily. He will require a BMP in 1 week's time to ensure that his potassium and sodium have remained within nominal limits. I have had a long and thorough discussion with the patient regarding his dietary and salt indiscretion, counseled him on avoiding recurrent CHF exacerbations with strict dietary measures. 2. COPD: The patient also comes with a diagnosis of COPD which may be superimposed on his LV dysfunction and CHF. Dr. Ahmadi consulted. 3. Tobacco cessation: The patient is apparently an active smoker, and would recommend highly that he discontinue all tobacco products. 4. Thank you very much for the opportunity to participate the cardiac care of your patient. Code Visit Inpatient E&M: 39546 Subs Hosp L2
--- NOTE | 2017-12-12 15:41 | NURSING ---
Lengthy discussion w/ pt and pt's brother Angel at this time regarding advanced directives and course of treatment. Pt requesting to have brother Angel delegated as Healthcare POA at this time. SHELIA Morgan made aware- having SW come to floor to discuss w/ pt.
--- NOTE | 2017-12-12 15:41 | PCM.RX.CS ---
Consult Type of Consult: New start Suspected Infection: Pneumonia Prior Doses of Antibiotics Received/Current Regimen: 1 GRAM GIVEN 12/12/17 AT 14:10 Labs: Sodium 142 mmol/L (136-145) 12/12/17 04:15 Potassium 4.3 mmol/L (3.5-5.1) 12/12/17 04:15 Chloride 103 mmol/L (98-107) 12/12/17 04:15 Carbon Dioxide 31.0 mmol/L (21.0-32.0) 12/12/17 04:15 Anion Gap 8 (5-15) 12/12/17 04:15 BUN 27 mg/dL (7-18) H 12/12/17 04:15 Creatinine 0.68 mg/dL (0.70-1.30) L 12/12/17 04:15 Est GFR (MDRD) Af Amer 154 mL/min (>60) 12/12/17 04:15 Est GFR (MDRD) Non-Af 127 mL/min (>60) 12/12/17 04:15 BUN/Creatinine Ratio 39.8 RATIO (10-20) H 12/12/17 04:15 Glucose 127 mg/dL (74-106) H 12/12/17 04:15 Microbiology: Microbiology 12/11/17 11:10 Sputum, Induced/Lukens Gram Stain - Final 12/11/17 11:10 Sputum, Induced/Lukens Respiratory Culture - Preliminary Staphylococcus aureus 12/11/17 07:25 Mucosa - Nose Respiratory Panel (PCR) - Final Weight used for dosin kg Estimated Creatinine Clearance: 110 ML/MIN Goal Trough: 15-20 mcg/mL Pharmacy Plan for Drug Dosing: Pharmacy Service will continue to monitor and adjust dosing as required. Will start 1 gram IV q12h with next dose 12/13/17 at 02:00. Follow-Up Labs: Trough Vancomycin Labs to be done on [date and time ordered]: ordered for 12/14/17 at 13:30
--- NOTE | 2017-12-12 16:16 | CASEMGMT ---
Social Work Consult for advanced care planning. This social insurance adviser discussing with patient and patient family advanced care planning and definitions. Patient wanting to complete living will and power of maintenance electrician for health care, documents completed. Power of maintenance electrician for health care and living will documented copied and placed on chart along with originals given to patient. Support given. Social Work to continue to follow. Abril MCCLAIN, FORMING PROCESS WORKER
[2017-12-12] MEDS: Furosemide 40 MG Tablet PO (17:34)
[2017-12-12] MEDS: Albuterol 2.5 MG/3 ML VIAL.NEB. INHALATION (21:21)
[2017-12-12] MEDS: Atorvastatin Calcium 80 MG Tablet PO (21:38)
[2017-12-12] MEDS: Gabapentin 600 MG Tablet PO (21:38)
[2017-12-12] MEDS: Carvedilol 6.25 MG Tablet PO (21:38)
[2017-12-13] VITALS (22 sets, daily range): BP systolic 95–137; BP diastolic 54–99; PULSE 84–103; RESP 12–25; TEMP 36.4–37.1; O2SAT 93–100
[2017-12-13] MEDS: 0.9% NaCl Peripheral Flush Adult/Peds IV ×3 (05:35→23:33)
[2017-12-13 06:03] LABS: Anion Gap 7 (5-15); BUN 32 mg/dL (7-18); BUN/Creat Ratio 50.2 RATIO (10-20); Calcium,Total 8.5 mg/dL (8.5-10.1); Chloride 100 mmol/L (98-107); Creatinine, Serum 0.64 mg/dL (0.70-1.30); EST Glomerular Filtration Rate 137 mL/min (>60); Est Glom Filt Rate - Afr Amer 165 mL/min (>60); Estimated Creatinine Clearance 111.09 ml/min; Glucose 125 mg/dL (74-106); Magnesium 2.2 mg/dL (1.6-2.6); Potassium 4.2 mmol/L (3.5-5.1); Sodium Level 137 mmol/L (136-145)
--- NOTE | 2017-12-13 07:23 | PCM.PN.INT ---
Subjective: The patient was seen and examined at the bedside this morning. Events from the last 24 hours have been reviewed. The patient is currently afebrile, hemodynamically stable and maintaining appropriate oxygen saturations on room air. No overnight events were noted by the nursing staff. The patient feels well without any significant complaints of shortness of breath, chest pain or cough. The patient is overall net -5.3 L for the admission. Objective: The patient's most recent lab work, culture data and imaging studies have all been personally reviewed. Both the respiratory viral panel and rapid influenza screens were negative. Sputum culture dated December 11 was positive for the presence of staph aureus. Surface echocardiogram completed in August 2016 revealed a mildly dilated LV with severe segmental systolic dysfunction and an ejection fraction of 15%. The patient did have evidence of a left to right interatrial shunt and a right ventricular systolic pressure estimated to be 39 mmHg. Repeat surface echocardiogram completed December 11 revealed the presence of a moderately dilated LV with an ejection fraction of 15-20%. There is evidence of stage II diastolic dysfunction. There is again evidence of a [id number] shunt. Right ventricular systolic pressure was estimated to be 43 mmHg. General: Alert, Cooperative, No apparent distress HEENT: Atraumatic, PERRLA, Normocephalic Oral: Moist Mucosa, No Gingival or Mucosal Lesions/ Ulcerations Neck: Supple, No Nodes, Trachea Midline Lungs: No rhonchi, No wheeze, No rales, Diminished Cardiovascular: Regular rate, Regular Rhythm, Normal S1, Normal S2, No murmurs Abdomen: Bowel Sounds Present, Soft, Non Tender, Non-Distended Extremities: No clubbing, No cyanosis, No edema Skin: No rashes, No breakdown Musculoskeletal: No Tenderness to Palpation of Joints or Extremities Lymphatic: No Cervical, Supraclavicular, or Inguinal Adenopathy Neurological: Neuro grossly intact Psych/Mental Status: Alert and oriented to time, place, person, mood and affect Vital Signs Temp Pulse Resp BP Pulse Ox 98.5 F 95 19 H 127/95 H 98 12/13/17 05:00 12/13/17 06:00 12/13/17 06:00 12/13/17 06:00 12/13/17 06:00 Oxygen Flow Rate (L/min) 2 Oxygen Delivery Method Room Air Weight: 139 lb 5.314 oz Body Mass Index (BMI) 20.5 Intake and Output for Last 24 Hours 12/11/17 12/12/17 12/13/17 23:59 23:59 23:59 Intake Total 1997 2468 / 2468 200 / 200 Output Total 7025 / 7025 2550 / 2550 400 / 400 Balance -5027 / -5027 -82 / -82 -200 / -200 Labs (Last 48 Hours) 12/11/17 12/11/17 12/11/17 05:50 05:50 05:50 WBC RBC Hgb Hct MCV MCH MCHC RDW RDW Differential Plt Count MPV Differential Comment Immature Plt Fraction 0.9 L Retic Count 1.43 Immature Retic Fraction 20.80 H Retic Hgb Equivalent 21.3 L Sodium 140 Potassium 4.2 Chloride 104 Carbon Dioxide 25.0 Anion Gap 11 BUN 20 H Creatinine 0.67 L Estim Creat Clear Calc 111.32 Est GFR (MDRD) Af Amer 157 Est GFR (MDRD) Non-Af 130 BUN/Creatinine Ratio 30.0 H Glucose 140 H Calcium 8.6 Phosphorus Magnesium Iron 27 L TIBC 439 Iron Saturation 6.2 L Ferritin 46 Total Bilirubin 0.70 AST 30 ALT 32 Alkaline Phosphatase 92 Troponin I 0.08 H Total Protein 7.4 Albumin 3.0 L Globulin 4.4 H Albumin/Globulin Ratio 0.7 L Urine Opiates Screen Urine Methadone Screen Ur Barbiturates Screen Ur Phencyclidine Scrn Ur Amphetamines Screen U Methamphetamin-MDMA U Benzodiazepines Scrn Urine Cocaine Screen U Cannabinoids Screen Ur Drug Screen Comment Ethyl Alcohol 12/11/17 12/11/17 12/11/17 05:50 08:35 08:55 WBC RBC Hgb Hct MCV MCH MCHC RDW RDW Differential Plt Count MPV Differential Comment Immature Plt Fraction Retic Count Immature Retic Fraction Retic Hgb Equivalent Sodium Potassium Chloride Carbon Dioxide Anion Gap BUN Creatinine Estim Creat Clear Calc Est GFR (MDRD) Af Amer Est GFR (MDRD) Non-Af BUN/Creatinine Ratio Glucose Calcium Phosphorus 5.2 H Magnesium Iron TIBC Iron Saturation Ferritin Total Bilirubin AST ALT Alkaline Phosphatase Troponin I Total Protein Albumin Globulin Albumin/Globulin Ratio Urine Opiates Screen NEGATIVE Urine Methadone Screen NEGATIVE Ur Barbiturates Screen NEGATIVE Ur Phencyclidine Scrn NEGATIVE Ur Amphetamines Screen NEGATIVE U Methamphetamin-MDMA NEGATIVE U Benzodiazepines Scrn POSITIVE H Urine Cocaine Screen NEGATIVE U Cannabinoids Screen NEGATIVE Ur Drug Screen Comment Ethyl Alcohol 4.0 12/11/17 12/11/17 12/11/17 09:20 13:15 16:15 WBC RBC Hgb Hct MCV MCH MCHC RDW RDW Differential Plt Count MPV Differential Comment Immature Plt Fraction Retic Count Immature Retic Fraction Retic Hgb Equivalent Sodium 141 Potassium 4.3 Chloride 106 Carbon Dioxide 29.0 Anion Gap 6 BUN 22 H Creatinine 0.56 L Estim Creat Clear Calc 133.19 Est GFR (MDRD) Af Amer 190 Est GFR (MDRD) Non-Af 157 BUN/Creatinine Ratio 38.9 H Glucose 119 H Calcium 8.3 L Phosphorus Magnesium Iron TIBC Iron Saturation Ferritin Total Bilirubin AST ALT Alkaline Phosphatase Troponin I 0.08 H 0.08 H Total Protein Albumin Globulin Albumin/Globulin Ratio Urine Opiates Screen Urine Methadone Screen Ur Barbiturates Screen Ur Phencyclidine Scrn Ur Amphetamines Screen U Methamphetamin-MDMA U Benzodiazepines Scrn Urine Cocaine Screen U Cannabinoids Screen Ur Drug Screen Comment Ethyl Alcohol 12/11/17 12/12/17 12/12/17 19:00 04:15 04:15 WBC 12.3 H RBC 4.27 L Hgb 9.4 L Hct 31.7 L MCV 74.2 L MCH 22.0 L MCHC 29.7 L RDW 20.4 H RDW Differential 53.5 H Plt Count 451 H MPV 8.7 Differential Comment SCAN Immature Plt Fraction Retic Count Immature Retic Fraction Retic Hgb Equivalent Sodium 142 Potassium 4.3 Chloride 103 Carbon Dioxide 31.0 Anion Gap 8 BUN 27 H Creatinine 0.68 L Estim Creat Clear Calc 109.69 Est GFR (MDRD) Af Amer 154 Est GFR (MDRD) Non-Af 127 BUN/Creatinine Ratio 39.8 H Glucose 127 H Calcium 8.3 L Phosphorus 4.4 Magnesium 2.3 Iron TIBC Iron Saturation Ferritin Total Bilirubin AST ALT Alkaline Phosphatase Troponin I 0.09 H Total Protein Albumin Globulin Albumin/Globulin Ratio Urine Opiates Screen Urine Methadone Screen Ur Barbiturates Screen Ur Phencyclidine Scrn Ur Amphetamines Screen U Methamphetamin-MDMA U Benzodiazepines Scrn Urine Cocaine Screen U Cannabinoids Screen Ur Drug Screen Comment Ethyl Alcohol 12/13/17 05:30 WBC RBC Hgb Hct MCV MCH MCHC RDW RDW Differential Plt Count MPV Differential Comment Immature Plt Fraction Retic Count Immature Retic Fraction Retic Hgb Equivalent Sodium 137 Potassium 4.2 Chloride 100 Carbon Dioxide 30.0 Anion Gap 7 BUN 32 H Creatinine 0.64 L Estim Creat Clear Calc 111.09 Est GFR (MDRD) Af Amer 165 Est GFR (MDRD) Non-Af 137 BUN/Creatinine Ratio 50.2 H Glucose 125 H Calcium 8.5 Phosphorus Magnesium 2.2 Iron TIBC Iron Saturation Ferritin Total Bilirubin AST ALT Alkaline Phosphatase Troponin I Total Protein Albumin Globulin Albumin/Globulin Ratio Urine Opiates Screen Urine Methadone Screen Ur Barbiturates Screen Ur Phencyclidine Scrn Ur Amphetamines Screen U Methamphetamin-MDMA U Benzodiazepines Scrn Urine Cocaine Screen U Cannabinoids Screen Ur Drug Screen Comment Ethyl Alcohol Microbiology 12/11/17 11:10 Sputum, Induced/Lukens Gram Stain - Final 12/11/17 11:10 Sputum, Induced/Lukens Respiratory Culture - Preliminary Staphylococcus aureus 12/11/17 07:25 Mucosa - Nose Respiratory Panel (PCR) - Final Clinical Impression(s) from Imaging Studies Chest X-Ray 12/10/17 23:05 IMPRESSION: No evidence of focal consolidation or acute process. Electronically Signed: Noel Saha DO at 23:23 EDT , Service support , Chest X-Ray 12/11/17 00:01 IMPRESSION: The NG tube is just past the gastroesophageal junction and could be advanced 5 to 10 cm. Endotracheal tube in satisfactory position. Cardiomegaly. Electronically Signed: Elizabeth Welsh MD at 1:01 EDT Tel , Service support , Chest X-Ray 12/11/17 07:09 IMPRESSION: Mild increased markings at the left lung base suggesting atelectasis. Support tubes are in good position. Electronically Signed: Darrick Coreas MD at 11:05 EDT Tel [phone], Service support , Chest X-Ray 12/12/17 05:55 IMPRESSION: Decrease of previous interstitial prominence likely superimposed component of COPD. There is borderline cardiac size. Other nonacute findings as outlined above. No pulmonary edema, congestive heart failure or confluent pneumonia. Electronically Signed: Ilsa Lobato MD at 6:15 EDT , Service support , Assessment/Plan RECOMMENDATIONS: 1. Continue vancomycin until sensitivities are available 2. Continue prednisone at 40 mg daily. Recommend completing a 5 day burst at 40 mg daily. 3. Continue scheduled aerosol treatments while awake 4. Continue current cardiac medication regimen 5. Encourage incentive spirometer use and mobilize patient as tolerated 6. Perform walking oximetry prior to consideration for discharge from the hospital. Outpatient pulmonary follow-up can be offered to the patient, if he remains in the area. IMPRESSIONS: 1. Acute on chronic hypoxemic respiratory failure likely secondary to decompensated heart failure, along with possible staph tracheobronchitis The patient has improved clinically following volume optimization and treatment for his underlying staphylococcal bronchitis. Continue aerosol treatments while awake. The patient is currently receiving 40 mg of prednisone daily, which I would recommend continuing for 5 days. Perform walking oximetry study prior to consideration for discharge from the hospital. Outpatient pulmonary follow-up can be offered, if the patient is agreeable to follow-up. 2. Severe ischemic cardiomyopathy/troponin elevation As above, will continue diuretics, beta-emani and ARB. Cardiology is following accordingly. Appreciate recommendations regarding medical management. 3. Questionable COPD of unknown severity/tobacco dependence This is a presumptive diagnosis, as there are no PFTs on file for review. We will plan to continue scheduled aerosol treatments while awake along with prednisone 40 mg daily by mouth. Outpatient pulmonary follow-up and PFTs are strongly recommended. Smoking cessation is strongly advisable. Nicotine replacement therapy can be offered to the patient while he is admitted to the hospital. 4. Microcytic anemia/history of alcohol abuse/suspected illicit drug use Complicates care, management, recovery and prognosis. Continue supportive measures as noted above. Recommend physical therapy evaluation. This note was generated with [employer] software. It may contain incorrect words, spelling, and punctuation that were not noted in checking the note before signing. DISPOSITION: The patient is medically stable for transfer out of the intensive care unit. Code Visit Inpatient E&M: 84581 Subs Hosp L3
--- NOTE | 2017-12-13 07:31 | PN_ITS ---
Subjective: The patient was seen and examined at the bedside this morning. Events from the last 24 hours have been reviewed. The patient is currently afebrile, hemodynamically stable and maintaining appropriate oxygen saturations on room air. No overnight events were noted by the nursing staff. The patient feels well without any significant complaints of shortness of breath, chest pain or cough. The patient is overall net -5.3 L for the admission. Objective: The patient's most recent lab work, culture data and imaging studies have all been personally reviewed. Both the respiratory viral panel and rapid influenza screens were negative. Sputum culture dated December 11 was positive for the presence of staph aureus. Surface echocardiogram completed in August 2016 revealed a mildly dilated LV with severe segmental systolic dysfunction and an ejection fraction of 15%. The patient did have evidence of a left to right interatrial shunt and a right ventricular systolic pressure estimated to be 39 mmHg. Repeat surface echocardiogram completed December 11 revealed the presence of a moderately dilated LV with an ejection fraction of 15-20%. There is evidence of stage II diastolic dysfunction. There is again evidence of a left- to-right shunt. Right ventricular systolic pressure was estimated to be 43 mmHg. General: Alert, Cooperative, No apparent distress HEENT: Atraumatic, PERRLA, Normocephalic Oral: Moist Mucosa, No Gingival or Mucosal Lesions/ Ulcerations Neck: Supple, No Nodes, Trachea Midline Lungs: No rhonchi, No wheeze, No rales, Diminished Cardiovascular: Regular rate, Regular Rhythm, Normal S1, Normal S2, No murmurs Abdomen: Bowel Sounds Present, Soft, Non Tender, Non-Distended Extremities: No clubbing, No cyanosis, No edema Skin: No rashes, No breakdown Musculoskeletal: No Tenderness to Palpation of Joints or Extremities Lymphatic: No Cervical, Supraclavicular, or Inguinal Adenopathy Neurological: Neuro grossly intact Psych/Mental Status: Alert and oriented to time, place, person, mood and affect Vital Signs Temp Pulse Resp BP Pulse Ox 98.5 F 95 19 H 127/95 H 98 12/13/17 05:00 12/13/17 06:00 12/13/17 06:00 12/13/17 06:00 12/13/17 06:00 Oxygen Flow Rate (L/min) 2 Oxygen Delivery Method Room Air Weight: 139 lb 5.314 oz Body Mass Index (BMI) 20.5 Intake and Output for Last 24 Hours 12/11/17 12/12/17 12/13/17 23:59 23:59 23:59 Intake Total 1997 2468 / 2468 200 / 200 Output Total 7025 / 7025 2550 / 2550 400 / 400 Balance -5027 / -5027 -82 / -82 -200 / -200 Labs (Last 48 Hours) 12/11/17 12/11/17 12/11/17 05:50 05:50 05:50 WBC RBC Hgb Hct MCV MCH MCHC RDW RDW Differential Plt Count MPV Differential Comment Immature Plt Fraction 0.9 L Retic Count 1.43 Immature Retic Fraction 20.80 H Retic Hgb Equivalent 21.3 L Sodium 140 Potassium 4.2 Chloride 104 Carbon Dioxide 25.0 Anion Gap 11 BUN 20 H Creatinine 0.67 L Estim Creat Clear Calc 111.32 Est GFR (MDRD) Af Amer 157 Est GFR (MDRD) Non-Af 130 BUN/Creatinine Ratio 30.0 H Glucose 140 H Calcium 8.6 Phosphorus Magnesium Iron 27 L TIBC 439 Iron Saturation 6.2 L Ferritin 46 Total Bilirubin 0.70 AST 30 ALT 32 Alkaline Phosphatase 92 Troponin I 0.08 H Total Protein 7.4 Albumin 3.0 L Globulin 4.4 H Albumin/Globulin Ratio 0.7 L Urine Opiates Screen Urine Methadone Screen Ur Barbiturates Screen Ur Phencyclidine Scrn Ur Amphetamines Screen U Methamphetamin-MDMA U Benzodiazepines Scrn Urine Cocaine Screen U Cannabinoids Screen Ur Drug Screen Comment Ethyl Alcohol 12/11/17 12/11/17 12/11/17 05:50 08:35 08:55 WBC RBC Hgb Hct MCV MCH MCHC RDW RDW Differential Plt Count MPV Differential Comment Immature Plt Fraction Retic Count Immature Retic Fraction Retic Hgb Equivalent Sodium Potassium Chloride Carbon Dioxide Anion Gap BUN Creatinine Estim Creat Clear Calc Est GFR (MDRD) Af Amer Est GFR (MDRD) Non-Af BUN/Creatinine Ratio Glucose Calcium Phosphorus 5.2 H Magnesium Iron TIBC Iron Saturation Ferritin Total Bilirubin AST ALT Alkaline Phosphatase Troponin I Total Protein Albumin Globulin Albumin/Globulin Ratio Urine Opiates Screen NEGATIVE Urine Methadone Screen NEGATIVE Ur Barbiturates Screen NEGATIVE Ur Phencyclidine Scrn NEGATIVE Ur Amphetamines Screen NEGATIVE U Methamphetamin-MDMA NEGATIVE U Benzodiazepines Scrn POSITIVE H Urine Cocaine Screen NEGATIVE U Cannabinoids Screen NEGATIVE Ur Drug Screen Comment Ethyl Alcohol 4.0 12/11/17 12/11/17 12/11/17 09:20 13:15 16:15 WBC RBC Hgb Hct MCV MCH MCHC RDW RDW Differential Plt Count MPV Differential Comment Immature Plt Fraction Retic Count Immature Retic Fraction Retic Hgb Equivalent Sodium 141 Potassium 4.3 Chloride 106 Carbon Dioxide 29.0 Anion Gap 6 BUN 22 H Creatinine 0.56 L Estim Creat Clear Calc 133.19 Est GFR (MDRD) Af Amer 190 Est GFR (MDRD) Non-Af 157 BUN/Creatinine Ratio 38.9 H Glucose 119 H Calcium 8.3 L Phosphorus Magnesium Iron TIBC Iron Saturation Ferritin Total Bilirubin AST ALT Alkaline Phosphatase Troponin I 0.08 H 0.08 H Total Protein Albumin Globulin Albumin/Globulin Ratio Urine Opiates Screen Urine Methadone Screen Ur Barbiturates Screen Ur Phencyclidine Scrn Ur Amphetamines Screen U Methamphetamin-MDMA U Benzodiazepines Scrn Urine Cocaine Screen U Cannabinoids Screen Ur Drug Screen Comment Ethyl Alcohol 12/11/17 12/12/17 12/12/17 19:00 04:15 04:15 WBC 12.3 H RBC 4.27 L Hgb 9.4 L Hct 31.7 L MCV 74.2 L MCH 22.0 L MCHC 29.7 L RDW 20.4 H RDW Differential 53.5 H Plt Count 451 H MPV 8.7 Differential Comment SCAN Immature Plt Fraction Retic Count Immature Retic Fraction Retic Hgb Equivalent Sodium 142 Potassium 4.3 Chloride 103 Carbon Dioxide 31.0 Anion Gap 8 BUN 27 H Creatinine 0.68 L Estim Creat Clear Calc 109.69 Est GFR (MDRD) Af Amer 154 Est GFR (MDRD) Non-Af 127 BUN/Creatinine Ratio 39.8 H Glucose 127 H Calcium 8.3 L Phosphorus 4.4 Magnesium 2.3 Iron TIBC Iron Saturation Ferritin Total Bilirubin AST ALT Alkaline Phosphatase Troponin I 0.09 H Total Protein Albumin Globulin Albumin/Globulin Ratio Urine Opiates Screen Urine Methadone Screen Ur Barbiturates Screen Ur Phencyclidine Scrn Ur Amphetamines Screen U Methamphetamin-MDMA U Benzodiazepines Scrn Urine Cocaine Screen U Cannabinoids Screen Ur Drug Screen Comment Ethyl Alcohol 12/13/17 05:30 WBC RBC Hgb Hct MCV MCH MCHC RDW RDW Differential Plt Count MPV Differential Comment Immature Plt Fraction Retic Count Immature Retic Fraction Retic Hgb Equivalent Sodium 137 Potassium 4.2 Chloride 100 Carbon Dioxide 30.0 Anion Gap 7 BUN 32 H Creatinine 0.64 L Estim Creat Clear Calc 111.09 Est GFR (MDRD) Af Amer 165 Est GFR (MDRD) Non-Af 137 BUN/Creatinine Ratio 50.2 H Glucose 125 H Calcium 8.5 Phosphorus Magnesium 2.2 Iron TIBC Iron Saturation Ferritin Total Bilirubin AST ALT Alkaline Phosphatase Troponin I Total Protein Albumin Globulin Albumin/Globulin Ratio Urine Opiates Screen Urine Methadone Screen Ur Barbiturates Screen Ur Phencyclidine Scrn Ur Amphetamines Screen U Methamphetamin-MDMA U Benzodiazepines Scrn Urine Cocaine Screen U Cannabinoids Screen Ur Drug Screen Comment Ethyl Alcohol Microbiology 12/11/17 11:10 Sputum, Induced/Lukens Gram Stain - Final 12/11/17 11:10 Sputum, Induced/Lukens Respiratory Culture - Preliminary Staphylococcus aureus 12/11/17 07:25 Mucosa - Nose Respiratory Panel (PCR) - Final Clinical Impression(s) from Imaging Studies Chest X-Ray 12/10/17 23:05 IMPRESSION: No evidence of focal consolidation or acute process. Electronically Signed: Noel Saha DO at 23:23 EDT , Service support , Chest X-Ray 12/11/17 00:01 IMPRESSION: The NG tube is just past the gastroesophageal junction and could be advanced 5 to 10 cm. Endotracheal tube in satisfactory position. Cardiomegaly. Electronically Signed: Elizabeth Welsh MD at 1:01 EDT Tel , Service support , Chest X-Ray 12/11/17 07:09 IMPRESSION: Mild increased markings at the left lung base suggesting atelectasis. Support tubes are in good position. Electronically Signed: Darrick Coreas MD at 11:05 EDT Tel [phone], Service support , Chest X-Ray 12/12/17 05:55 IMPRESSION: Decrease of previous interstitial prominence likely superimposed component of COPD. There is borderline cardiac size. Other nonacute findings as outlined above. No pulmonary edema, congestive heart failure or confluent pneumonia. Electronically Signed: Ilsa Lobato MD at 6:15 EDT , Service support , Assessment/Plan RECOMMENDATIONS: 1. Continue vancomycin until sensitivities are available 2. Continue prednisone at 40 mg daily. Recommend completing a 5 day burst at 40 mg daily. 3. Continue scheduled aerosol treatments while awake 4. Continue current cardiac medication regimen 5. Encourage incentive spirometer use and mobilize patient as tolerated 6. Perform walking oximetry prior to consideration for discharge from the hospital. Outpatient pulmonary follow-up can be offered to the patient, if he remains in the area. IMPRESSIONS: 1. Acute on chronic hypoxemic respiratory failure likely secondary to decompensated heart failure, along with possible staph tracheobronchitis The patient has improved clinically following volume optimization and treatment for his underlying staphylococcal bronchitis. Continue aerosol treatments while awake. The patient is currently receiving 40 mg of prednisone daily, which I would recommend continuing for 5 days. Perform walking oximetry study prior to consideration for discharge from the hospital. Outpatient pulmonary follow-up can be offered, if the patient is agreeable to follow-up. 2. Severe ischemic cardiomyopathy/troponin elevation As above, will continue diuretics, beta-emani and ARB. Cardiology is following accordingly. Appreciate recommendations regarding medical management. 3. Questionable COPD of unknown severity/tobacco dependence This is a presumptive diagnosis, as there are no PFTs on file for review. We will plan to continue scheduled aerosol treatments while awake along with prednisone 40 mg daily by mouth. Outpatient pulmonary follow-up and PFTs are strongly recommended. Smoking cessation is strongly advisable. Nicotine replacement therapy can be offered to the patient while he is admitted to the hospital. 4. Microcytic anemia/history of alcohol abuse/suspected illicit drug use Complicates care, management, recovery and prognosis. Continue supportive measures as noted above. Recommend physical therapy evaluation. This note was generated with [employer] software. It may contain incorrect words, spelling, and punctuation that were not noted in checking the note before signing. DISPOSITION: The patient is medically stable for transfer out of the intensive care unit. Code Visit Inpatient E&M: 94861 Subs Hosp L3
--- NOTE | 2017-12-13 08:13 | PCM.PROGNOTE ---
Subjective: Antibiotic Day #2 Ventilator Day #extubated on 12/12/2017 TMAX: 99.4 Vital signs: Blood pressure overnight ranged from 100/64-130 7/77. Coreg was increased to 6.25 mg p.o. twice daily by Dr. Mak. Spironolactone was also added to the drug regimen. Fluid balance: -5309 since admission Urine output: Output on 12/12/2017 was 2325. He has been transitioned to Lasix 40 mg p.o. twice daily. Weight: No weight has been recorded for today All labs were personally reviewed: Electrolytes are within normal limits. Creatinine is stable at 0.64 with a BUN of 32. Magnesium is 2.2 today. Microbiology: Sputum is growing 3+ MRSA - hospital acquired likely from recent admission to hospital in [place] Telemetry: NSR with occasional PVC's and i 5 beat run NSVT last night Objective: Chest pain, denies shortness of breath, denies palpitations, denies lightheadedness. He is sitting in a chair and has no complaints other than he does not like the fluid restriction. He understands after talking to Dr. Mak yesterday that without an AICD he will experience sudden cardiac at some point. - Physical Exam General: Alert, Oriented x3, Cooperative, No apparent distress HEENT: PERRLA Oral: Moist Mucosa Neck: Supple, No JVD, Trachea Midline Lungs: Clear to auscultation, No rhonchi, No wheeze, No rales Cardiovascular: Regular rate, Regular Rhythm, Normal S1, Normal S2 Abdomen: Bowel Sounds Present, Soft, Non Tender, Non-Distended Extremities: No clubbing, No cyanosis, No edema Skin: No rashes, No breakdown Musculoskeletal: No Muscle Wasting Neurological: Cranial nerves II-XII grossly intact, Neuro grossly intact Psych/Mental Status: Normal Affect, Appropriate Vital Signs Temp Pulse Resp BP Pulse Ox 98.5 F 95 19 H 127/95 H 98 12/13/17 05:00 12/13/17 06:00 12/13/17 06:00 12/13/17 06:00 12/13/17 06:00 Oxygen Flow Rate (L/min) 2 Oxygen Delivery Method Room Air Weight: 139 lb 5.314 oz Body Mass Index (BMI) 20.5 Intake and Output for Last 24 Hours 12/11/17 12/12/1718 23:59 23:59 23:59 Intake Total 1997 2468 / 2468 200 / 200 Output Total 7025 / 7025 2550 / 2550 400 / 400 Balance -5027 / -5027 -82 / -82 -200 / -200 Microbiology Past 72 Hours 12/11/17 11:10 Gram Stain - Final Sputum, Induced/Lukens Respiratory Culture - Preliminary Staphylococcus aureus 12/11/17 07:25 Respiratory Panel (PCR) - Final Mucosa - Nose Laboratory Tests Past 24 Hrs 12/13/17 05:30 Sodium 137 Potassium 4.2 Chloride 100 Carbon Dioxide 30.0 Anion Gap 7 BUN 32 H Creatinine 0.64 L Estim Creat Clear Calc 111.09 Est GFR (MDRD) Af Amer 165 Est GFR (MDRD) Non-Af 137 BUN/Creatinine Ratio 50.2 H Glucose 125 H Calcium 8.5 Magnesium 2.2 Assessment/Plan Impressions 1. acute respiratory failure with hypoxemia due to acute on chronic systolic CHF 2. acute on Chronic systolic CHF 3. severe CM with a 10-15% EF in the past 4. CAD with a hx of multiple stents. Was scheduled for a CABG in [place] on October of 2016 and he did not show up 5. External defibrillator in the past.......signed out AMA when we were waiting for new batteries to come in October 2016.....brother states he has not had a life vest since coming back to [place] 1 week ago 6. elevated troponin - not trending 7. COPD 8. Hx of heavy alcohol use and suspected Drug abuse 9. Microcytic anemia - due to iron deficeincy 10. ongoing tobacco dependence despite CAD, CHF, COPD and hypoxia 11. Hyperphosphatemia 12. S. Aureus bronchitis...no evidence of PNA on the CXR Check a hemoccult stool. Start an iron supplement continue Vanco. He has no insurance and so he will need to go to an SNF to complete 10 day course of Vanco Increase the Losartan for better after load reduction recheck a BMP and a CBC in the AM continue Prednisone and taper over the next 7-10 days [place] to PCU today. I reviewed Dr. Mak's note and he plans on a cath and AICD......if the patient will be in town for the next couple weeks. Would like to clear up the SA prior to any intervention. Will check Blood cultures today. Code Visit Inpatient E&M: 82052 Subs Hosp L3
[2017-12-13] MEDS: Aspirin 81 MG TAB.CHEW PO (08:35)
[2017-12-13] MEDS: Carvedilol 6.25 MG Tablet PO ×2 (08:36→21:09)
[2017-12-13] MEDS: Spironolactone 25 MG Tablet PO (08:36)
[2017-12-13] MEDS: Furosemide 40 MG Tablet PO ×2 (08:41→17:33)
[2017-12-13] MEDS: Enoxaparin 40 MG/0.4 ML Syringe SC (08:42)
[2017-12-13] MEDS: Clopidogrel Bisulfate 75 MG Tablet PO (08:42)
[2017-12-13] MEDS: Losartan Potassium 50 MG Tablet PO (09:34)
[2017-12-13] MEDS: Famotidine 20 MG Tablet PO ×2 (09:34→21:09)
--- NOTE | 2017-12-13 10:19 | NURSING ---
miah called to [facility] for transfer to room 102, transferred per chair with belongings
--- NOTE | 2017-12-13 12:24 | CASEMGMT ---
SW spoke w/pt in room in regard to discharge plan, as physician had stated pt needs SNF short term for IV antibiotics. SW asked pt about going to SNF for IV antibiotics. Pt adamantly refused to go to SNF, he states he would rather go home and . SW asked pt about hospice, pt refused hospice either. Pt states, you people are trying to kill me! SW attempted to explain to pt that it is this SW's understanding he needs a pacemaker and cannot get this until the infection clears up. Pt still adamant about not wanting to go to a care home, states he knows family member who have worked in nursing homes and people just go there and , nobody cares for them. SW attempted to speak w/pt about the importance of getting the antibiotics, and his fears of going to a care home. Pt just continued to state he would not go to a care home, he would go home and first. SW explained will speak w/physician about other options and see if perhaps he can come in to do IV's. Pt states he can do this, can drive himself. YASMEEN spoke w/physician, she states pt could go on oral Xyvox, and asked SW to look into cost. YASMEEN called retail pharmacy, tubed them the script, the generic is $43, the name brand is $2099, so they can fill it as generic. SW can use hospital assist to help pt w/cost. SW let physician know this, also asked her to write the other scripts for pt so we can get the meds for the pt tomorrow(as pt will not be discharged until Sunday), as pt will need to use hospital assist for all meds. She will do so. YASMEEN spoke w/pt again, let him know he will be able to go home on oral antibiotics, will be able to get these meds along with the other meds prescribed for him covered through the hospital assistance program. SW reminded pt that we cannot get him assist for pain meds or over the counter meds. Pt seems frustrated with not being able to get pain meds through the hospital assistance program, was going to try to find another way to get them covered. Pt asked SW to call his brother Angel to let him know what is going on. YASMEEN called our financial dept, they did fax in a Medicaid fidencio to [facility]. SW called pt's brother Angel to let him know the plan for pt, that pt will go home on oral antibiotics. Angel states understanding. Angel asked about pt being contagious and if he is getting a heart cath while here, YASMEEN does not know, asked CM to have pt's RN call brother. SW will continue to follow for assisting with medications to pt has them at discharge. FRANCIA Vasquez, APPAREL DESIGNER
--- NOTE | 2017-12-13 14:56 | EKG12_ITS ---
Test Reason : CP Blood Pressure : / mmHG Vent. Rate : 087 BPM Atrial Rate : 087 BPM P-R Int : 186 ms QRS Dur : 106 ms QT Int : 380 ms P-R-T Axes : 083 -46 186 degrees QTc Int : 457 ms Sinus rhythm with Premature supraventricular complexes Left anterior fascicular block Septal infarct , age undetermined ST & T wave abnormality, consider inferior ischemia ST & T wave abnormality, consider anterolateral ischemia Abnormal ECG When compared with ECG of 11-DEC-2017 08:19, MANUAL COMPARISON REQUIRED, DATA IS UNCONFIRMED Confirmed by ERON TIRADO ([id number]), associate entertainment editor AMADOR EDMONDS ([id number] on 12/17/2017 2:49:58 PM Referred By: Confirmed By:ERON TIRADO
--- NOTE | 2017-12-13 14:58 | NURSING ---
RN CALLED TO ROOM PATIENT YELLING OUT WITH CHEST PAIN, SHARP IN NATURE, BP 129/71, HR 101, 02 96% ON 2LNC. DR NIETO ON FLOOR STATES CAN GIVE NITRO.
--- NOTE | 2017-12-13 15:03 | NURSING ---
NITRO GIVEN SL AT THIS TIME 1505, PER DR NIETO. DR RATLIFF IN ROOM AT THIS TIME. WANTS PATIENT TO HAVE ANOTHER NITRO SL AT THIS TIME. BP 118/[address] RATLIFF LOOKED AT EKG AND IS GOING TO CALL DR TIRADO.
--- NOTE | 2017-12-13 15:15 | NURSING ---
PAIN CAME BACK, DR RATLIFF CALLED BACKED IN ROOM, GIVEN 3 NITRO AT 1515. BP 103/65, HR 90.
[2017-12-13] MEDS: [UNRECOGNIZED DRUG - OTHER] 3 MG IV (15:29)
--- NOTE | 2017-12-13 15:46 | CASEMGMT ---
Pt called SW, pt had some financial questions. SW went to see pt about an hour later, pt is with RN, pt states he is going back to ICU, states he is dying. RN states pt is having chest pain, they started medications, she called pt's brother Chi. SW asked pt if he would like SW to call Angel, pt would like SW to call his brother Angel. SW offered support to pt. SW called Angel, let him know pt is having chest pain and is going back to the ICU. YASMEEN will follow up tomorrow. FRANCIA Vasquez, BATHHOUSE ATTENDANT
--- NOTE | 2017-12-13 15:49 | NURSING ---
PATIENT STARTED ON NITRO DRIP AND BEING MOVED TO ICU. SPOKE TO BROTHER DON UPDATED ABOUT PLAN OF CARE.
--- NOTE | 2017-12-13 16:04 | PN.CARD_ITS ---
Subjectve: Patient continues to do well, sitting in a chair, no 24 hour events. Telemetry last night showed normal sinus rhythm/sinus tachycardia with 3 beats of nonsustained V. tach. As best we can tell the patient has not had a recent heart catheterization as we have exhausted multiple attempts to contact outside hospitals that he have provided to us as to where his catheterization took place. Objective: Vital Signs Temp Pulse Resp BP Pulse Ox 97.8 F 89 16 113/68 96 12/13/17 12:00 12/13/17 15:45 12/13/17 15:45 12/13/17 15:45 12/13/17 15:45 Oxygen Flow Rate (L/min) 2 Oxygen Delivery Method Nasal Cannula Weight: 139 lb 5.314 oz Body Mass Index (BMI) 20.5 Intake and Output for Last 24 Hours 12/11/17 12/12/17 12/13/17 23:59 23:59 23:59 Intake Total 1997 / 1997 2468 / 2468 550 / 550 Output Total 7025 / 7025 2550 / 2550 900 / 900 Balance -5027 / -5027 -82 / -82 -350 / -350 General: Awake, Alert, Oriented x 3 HEENT: PERRL, EOMI, Sclera Non Icteric Neck: Supple, Good ROM, No Lymph Node Enlargement Lungs: Clear to auscultation Cardiovascular: Regular Rhythm, Normal S1, Normal S2, No Murmurs, No Rubs, No Gallops Vascular: No Carotid Bruits, Normal Femoral Pulses, Normal Radial Pulses, Normal Dorsalis Pedal Pulse, Normal Posterior Tibial Pulses Abdomen: Bowel Sounds Present, Soft, Non Tender, No HSM, No Organomegaly Extremities: No Cyanosis, No Clubbing, No edema Neurological: No Focal Motor or Sensory Deficit 12/13/17 05:30: Sodium 137, Potassium 4.2, Chloride 100, Carbon Dioxide 30.0, Anion Gap 7, BUN 32 H, Creatinine 0.64 L, Est GFR (MDRD) Af Amer 165, Est GFR ( MDRD) Non-Af 137, BUN/Creatinine Ratio 50.2 H, Glucose 125 H, Calcium 8.5, Magnesium 2.2 Rhythm: EKG: ECHO: Stress Test: Cardiac Cath: Pending PCI: CT Surgery: Holter monitor: EPS: PPM: CXR: Chest CT Scan: Assessment/Plan 1. Ischemic cardiomyopathy: The patient presumably has a history of ischemic cardiomyopathy,, the most recent catheterization that I can see on his old records occurred in September 22, 2015. At that time patient had patent stents to his LAD, left main was okay, patent distal left circumflex stent, and nonobstructive in-stent restenosis of his distal RCA stent. As best we can tell the patient did not have a repeat catheterization a week or so ago in [place], and reviewing his right radial area it is unclear as he had a art line and that artery during his intubation here at the hospital. At this point I would recommend judicious use of IV fluids, fluid restriction of 1500 cc per day, max concentration of all IV drips, and matching I's and O's on a daily basis. Patient's troponins have been relatively flat at 0.08?3 sets. His rhythm has remained stable. I believe the patient would benefit from repeat catheterization to ensure that his stents are open, particularly since he will require probably a LifeVest followed by an AICD for primary prophylaxis for sudden cardiac . I will have to check and see if the patient could remain in the area for him to undergo AICD placement by Dr. Kruger in 1 week's time. We will make arrangements for the patient undergo a catheterization tomorrow morning. Continue baby aspirin and Plavix. At this point I would recommend increasing his Coreg to 6.25 mill grams p.o. twice daily, and losartan 25 mg p.o. daily for afterload reduction. In addition recommend starting him on Lasix 40 mg p.o. twice daily and Aldactone 25 mg p.o. daily. He will require a BMP in 1 week's time to ensure that his potassium and sodium have remained within nominal limits. I have had a long and thorough discussion with the patient regarding his dietary and salt indiscretion, counseled him on avoiding recurrent CHF exacerbations with strict dietary measures. 2. COPD: The patient also comes with a diagnosis of COPD which may be superimposed on his LV dysfunction and CHF. Dr. Ahmadi consulted. 3. Tobacco cessation: The patient is apparently an active smoker, and would recommend highly that he discontinue all tobacco products. 4. Thank you very much for the opportunity to participate the cardiac care of your patient. Code Visit Inpatient E&M: 76212 Subs Hosp L2
--- NOTE | 2017-12-13 17:12 | NURSING ---
no co chest pain voiced since transfer to icu ntg gtt continues, trop drawn , voices understanding of cardiac cath in am does not wish to see video since he has had previous caths
[2017-12-13] MEDS: Ascorbic Acid 500 MG Tablet PO (20:10)
[2017-12-13] MEDS: Ferrous Gluconate 325 MG Tablet PO (20:10)
[2017-12-13] MEDS: Gabapentin 600 MG Tablet PO (21:09)
[2017-12-13] MEDS: Atorvastatin Calcium 80 MG Tablet PO (21:09)
[2017-12-14] VITALS (20 sets, daily range): BP systolic 91–156; BP diastolic 56–99; PULSE 79–97; RESP 12–22; TEMP 36.7–37; O2SAT 94–100
[2017-12-14] MEDS: 0.9% NaCl Peripheral Flush Adult/Peds IV ×2 (01:07→06:09)
[2017-12-14] MEDS: CHLORHEXIDINE GLUC 2% CLOTH 1 EACH TOWELETTE TOPICAL (01:07)
[2017-12-14] MEDS: Albuterol 2.5 MG/3 ML VIAL.NEB. INHALATION (01:28)
[2017-12-14 05:20] LABS: Hematocrit 32.4 % (40-54); Hemoglobin 9.6 g/dl (13.0-16.5); Mean Corp Hgb Conc 29.6 g/gl (32-36); Mean Corpuscular Hgb 22.1 pg (27.0-32.0); Mean Corpuscular Volume 74.5 fL (80-94); Mean Platelet Vol. 8.3 fl (6.2-12.0); Platelet Count 509 K/mm3 (150-450); RBC Distribution Width CV 20.3 % (11.6-14.6); RBC Distribution Width SD 52.9 fl (35.1-43.9); Red Blood Count 4.35 M/mm3 (4.6-6.2); White Blood Count 11.4 K/mm3 (4.4-11.0)
[2017-12-14 05:21] LABS: Scan Indicated on CBC? Y/N YES- FLAGS NOTED
[2017-12-14 05:31] LABS: International Normalized Ratio 1.2; Partial Thromboplast Time 26.7 Seconds (24.1-36.2); Prothrombin Time (Protime)PT. 15.2 SECONDS (11.7-14.9)
[2017-12-14 05:40] LABS: Differential Comment SCANNED
[2017-12-14 05:41] LABS: Anion Gap 6 (5-15); BUN 34 mg/dL (7-18); BUN/Creat Ratio 56.2 RATIO (10-20); Calcium,Total 8.1 mg/dL (8.5-10.1); Chloride 102 mmol/L (98-107); EST Glomerular Filtration Rate 145 mL/min (>60); Est Glom Filt Rate - Afr Amer 176 mL/min (>60); Glucose 90 mg/dL (74-106); Potassium 3.9 mmol/L (3.5-5.1); Sodium Level 139 mmol/L (136-145)
--- NOTE | 2017-12-14 05:55 | EKG12_ITS ---
Test Reason : MORNING EKG Blood Pressure : / mmHG Vent. Rate : 091 BPM Atrial Rate : 091 BPM P-R Int : 182 ms QRS Dur : 102 ms QT Int : 394 ms P-R-T Axes : 080 -61 103 degrees QTc Int : 484 ms Sinus rhythm with Premature supraventricular complexes Left anterior fascicular block Septal infarct , age undetermined T wave abnormality, consider lateral ischemia Abnormal ECG Confirmed by ERON TIRADO ([id number]), society editor AMADOR EDMONDS ([id number]) on 12/17/2017 2:43:39 PM Referred By: EVY Confirmed By:ERON TIRADO
[2017-12-14] MEDS: Carvedilol 6.25 MG Tablet PO (06:09)
[2017-12-14] MEDS: Clopidogrel Bisulfate 75 MG Tablet PO (06:09)
[2017-12-14] MEDS: Losartan Potassium 50 MG Tablet PO (06:12)
[2017-12-14] MEDS: Aspirin 81 MG TAB.CHEW PO (06:12)
--- NOTE | 2017-12-14 06:44 | PN_ITS ---
Subjective: The patient was seen and examined at the bedside this morning. Events from the last 24 hours have been reviewed. The patient is currently afebrile, hemodynamically stable and maintaining appropriate oxygen saturations on room air. Patient was transferred out of the ICU yesterday to the PCU. Yesterday afternoon, he developed chest pain with EKG changes, for which she was started on a nitro drip and subsequently transferred back to the medical intensive care unit. There are plans to proceed with heart catheterization this morning. The patient is without current complaints of chest pain or dyspnea. Objective: The patient's most recent lab work, culture data and imaging studies have all been personally reviewed. Both the respiratory viral panel and rapid influenza screens were negative. Sputum culture dated December 11 was positive for the presence of staph aureus. Surface echocardiogram completed in August 2016 revealed a mildly dilated LV with severe segmental systolic dysfunction and an ejection fraction of 15%. The patient did have evidence of a left to right interatrial shunt and a right ventricular systolic pressure estimated to be 39 mmHg. Repeat surface echocardiogram completed December 11 revealed the presence of a moderately dilated LV with an ejection fraction of 15-20%. There is evidence of stage II diastolic dysfunction. There is again evidence of a left- to-right shunt. Right ventricular systolic pressure was estimated to be 43 mmHg. General: Alert, Cooperative, No apparent distress HEENT: Atraumatic, PERRLA, Normocephalic Oral: Moist Mucosa, No Gingival or Mucosal Lesions/ Ulcerations Neck: Supple, No Nodes, Trachea Midline Lungs: No rhonchi, No wheeze, No rales, Diminished Cardiovascular: Regular rate, Regular Rhythm, Normal S1, Normal S2, No murmurs, No rub noted, No Gallop Abdomen: Bowel Sounds Present, Soft, Non Tender Extremities: No clubbing, No cyanosis, No edema Skin: No rashes Musculoskeletal: No Tenderness to Palpation of Joints or Extremities Lymphatic: No Cervical, Supraclavicular, or Inguinal Adenopathy Neurological: Neuro grossly intact Psych/Mental Status: Normal Affect, Appropriate Vital Signs Temp Pulse Resp BP Pulse Ox 98.6 F 83 15 156/86 H 100 12/14/17 04:00 12/14/17 06:00 12/14/17 06:00 12/14/17 06:00 12/14/17 06:00 Oxygen Flow Rate (L/min) 2 Oxygen Delivery Method Room Air Weight: 144 lb 6.444 oz Body Mass Index (BMI) 20.5 Intake and Output for Last 24 Hours 12/12/17 12/13/17 12/14/17 23:59 23:59 23:59 Intake Total 2468 / 2468 1166 / 1166 351 / 351 Output Total 2550 / 2550 1200 / 1200 950 / 950 Balance -82 / -82 -34 / -34 -599 / -599 Labs (Last 48 Hours) 12/13/17 12/13/17 12/13/17 05:30 17:00 20:55 WBC RBC Hgb Hct MCV MCH MCHC RDW RDW Differential Plt Count MPV Differential Comment PT INR APTT Sodium 137 Potassium 4.2 Chloride 100 Carbon Dioxide 30.0 Anion Gap 7 BUN 32 H Creatinine 0.64 L Estim Creat Clear Calc 111.09 Est GFR (MDRD) Af Amer 165 Est GFR (MDRD) Non-Af 137 BUN/Creatinine Ratio 50.2 H Glucose 125 H Calcium 8.5 Magnesium 2.2 Troponin I 0.07 H 0.06 12/14/17 12/14/17 12/14/17 00:55 05:00 05:00 WBC 11.4 H RBC 4.35 L Hgb 9.6 L Hct 32.4 L MCV 74.5 L MCH 22.1 L MCHC 29.6 L RDW 20.3 H RDW Differential 52.9 H Plt Count 509 H MPV 8.3 Differential Comment SCANNED PT INR APTT Sodium 139 Potassium 3.9 Chloride 102 Carbon Dioxide 31.0 Anion Gap 6 BUN 34 H Creatinine 0.60 L Estim Creat Clear Calc 118.50 Est GFR (MDRD) Af Amer 176 Est GFR (MDRD) Non-Af 145 BUN/Creatinine Ratio 56.2 H Glucose 90 Calcium 8.1 L Magnesium Troponin I 0.07 H 12/14/17 12/14/17 05:00 05:00 WBC RBC Hgb Hct MCV MCH MCHC RDW RDW Differential Plt Count MPV Differential Comment PT 15.2 H INR 1.2 APTT 26.7 Sodium Potassium Chloride Carbon Dioxide Anion Gap BUN Creatinine Estim Creat Clear Calc Est GFR (MDRD) Af Amer Est GFR (MDRD) Non-Af BUN/Creatinine Ratio Glucose Calcium Magnesium Troponin I 0.07 H Microbiology 12/11/17 11:10 Sputum, Induced/Lukens Gram Stain - Final 12/11/17 11:10 Sputum, Induced/Lukens Respiratory Culture - Final Meth. resistant Staph. aureus Clinical Impression(s) from Imaging Studies Chest X-Ray 12/10/17 23:05 IMPRESSION: No evidence of focal consolidation or acute process. Electronically Signed: Noel Saha DO at 23:23 EDT , Service support , Chest X-Ray 12/11/17 00:01 IMPRESSION: The NG tube is just past the gastroesophageal junction and could be advanced 5 to 10 cm. Endotracheal tube in satisfactory position. Cardiomegaly. Electronically Signed: Elizabeth Welsh MD at 1:01 EDT Tel , Service support , Chest X-Ray 12/11/17 07:09 IMPRESSION: Mild increased markings at the left lung base suggesting atelectasis. Support tubes are in good position. Electronically Signed: Darrick Coreas MD at 11:05 EDT Tel [phone], Service support , Chest X-Ray 12/12/17 05:55 IMPRESSION: Decrease of previous interstitial prominence likely superimposed component of COPD. There is borderline cardiac size. Other nonacute findings as outlined above. No pulmonary edema, congestive heart failure or confluent pneumonia. Electronically Signed: Ilsa Lobato MD at 6:15 EDT , Service support , Assessment/Plan Active and Suspected Problems COPD exacerbation (Acute) Acute respiratory failure with hypoxemia (Acute) Elevated troponin (Acute) Iron deficiency anemia (Acute) NSVT (nonsustained ventricular tachycardia) (Acute) Acute bronchitis (Acute) Systolic CHF, acute on chronic (Acute) RECOMMENDATIONS: 1. Transition from vancomycin to Zyvox to complete treatment course 2. Continue prednisone at 40 mg daily. Recommend completing a 5 day burst at 40 mg daily. 3. Continue scheduled aerosol treatments while awake 4. Continue current cardiac medication regimen 5. Encourage incentive spirometer use and mobilize patient as tolerated 6. Perform walking oximetry prior to consideration for discharge from the hospital. Outpatient pulmonary follow-up can be offered to the patient, if he remains in the area. IMPRESSIONS: 1. Acute on chronic hypoxemic respiratory failure likely secondary to decompensated heart failure, along with staph tracheobronchitis The patient has improved clinically following volume optimization and treatment for his underlying staphylococcal bronchitis. Continue aerosol treatments while awake. The patient is currently receiving 40 mg of prednisone daily, which I would recommend continuing for 5 days. Vancomycin can be transitioned to Zyvox to complete outpatient treatment course. Perform walking oximetry study prior to consideration for discharge from the hospital. Outpatient pulmonary follow-up can be offered, if the patient is agreeable to follow-up. 2. Severe ischemic cardiomyopathy/NSTEMI As above, will continue diuretics, beta-emani and ARB. Cardiology is following accordingly. The patient did undergo left heart catheterization which again demonstrated severe global LV hypokinesis with an ejection fraction of 10-15%. There was evidence of nonobstructive coronary disease without a culprit lesion identified. 3. Questionable COPD of unknown severity/tobacco dependence This is a presumptive diagnosis, as there are no PFTs on file for review. We will plan to continue scheduled aerosol treatments while awake along with prednisone 40 mg daily by mouth. Outpatient pulmonary follow-up and PFTs are strongly recommended. Smoking cessation is strongly advisable. Nicotine replacement therapy can be offered to the patient while he is admitted to the hospital. 4. Microcytic anemia/history of alcohol abuse/suspected illicit drug use Complicates care, management, recovery and prognosis. Continue supportive measures as noted above. This note was generated with [employer] dictation software. It may contain incorrect words, spelling, and punctuation that were not noted in checking the note before signing. Given the lack of ongoing ICU needs, will sign off. Please call with any additional questions. Code Visit Inpatient E&M: 56240 Subs Hosp L2
--- NOTE | 2017-12-14 07:45 | CL.D_ITS ---
Patient Name: ANTHONY BARRON Study Date: 12/14/2017 Performing: Bradford Mak MD Ht: 70.86 inches 180 cm : 1960 Wt: 138.89 lbs 63 kg Age: 57 Gender: male BSA: 1.8 PROCEDURE(S) PERFORMED IL85-CVC/COR/LV CLINICAL PROFILE AND INDICATIONS INDICATIONS: Unstable Angina Stress/Imaging Stress/Image Study Performed: No Angina Classification Anginal Classification w/in 2 Weeks: CCS IV CAD Presentations: Non-STEMI. Symptom onset Date/Time: 12/11/2017 Time Not Available Comorbidities/Risk Factors: Current/Recent Smoker (< 1year) Hypertension Dyslipidemia Prior CHF Prior PCI Chronic Lung Disease CONCLUSIONS Depressed Left Ventricular systolic function - Severe Non obstructive coronary arteries RECOMMENDATIONS Stress/MPI in 2 weeks to eval inferior wall. IF inferior ischemia present, will bring back for PCI o f RCA. IF negative, will proceed with AICD with Dr Duong in 1 month. F/u with Dr Mak DESCRIPTION OF PROCEDURE The patient arrived to the procedure lab. The risks and benefits of the procedure as well as a full d escription of our services here and current unavailability of surgical backup were fully explained to the patient and/or their significant other prior to the catheterization. The Timeout was completed, verifying the correct patient and procedure. The patient's procedural site was prepped and draped in the usual fashion. Local anesthetic was given subcutaneously to right groin region with Lidocaine 2%. Using a modified Seldinger technique, arterial access was obtained via the right femoral artery, a 4 Fr sheath was inserted Left Coronary Artery selective angiography was performed in multiple views us ing a 4 Fr. JL5 catheter. Right Coronary Artery selective angiography was then performed in multiple views using a 4 Fr. 3DRC catheter. Left Ventriculography was performed in NIX projection using a 4 Fr . Pigtail catheter. LV to AO pullback pressures were then recorded.The arterial sheath was pulled and manual compression applied until hemostasis is achieved. CORONARY ANGIOGRAPHY DOMINANCE: Right Dominant LEFT HEART ASSESSMENT Left Ventricular Ejection Fraction: by LV Gram 10-15 % Global Hypokinesis - Severe Depressed Left Ventricular systolic function Normal Left Ventricular End Diastolic Pressure LEFT MAIN: Non-obstructive LEFT ANTERIOR DECENDING ARTERY: Previously placed stent is patent DIAGONAL 1: Ostial - Mild luminal irregularities less than 30% DIAGONAL 2: Proximal - Non-obstructive CIRCUMFLEX ARTERY: MID CIRC: Previously placed stent is patent RIGHT CORONARY ARTERY: MID RCA: Previously placed stent has instent 20 % restenosis with a new at distal edge of stent COMPLICATIONS No Complications PROCEDURE MEDICATIONS Versed 1 mg IV Oxygen: 2 L/min via nasal cannula Nitro glycerin 25mg / 250ml D5W @ 5 mcg/min discontinued 12/14/2017 07:24:22 SUMMARY OF HEMODYNAMIC DATA Time AIR REST ECG 07:12:50 AO 94/62 (76) SA 07:24:42 LV 104/0, 14 07:31:16 LV 98/1, 15 07:31:23 LVp 98/1, 16 07:31:32 AOp 98/56 (72) 07:31:38 Signed By Bradford Mak MD On 12/14/2017 07:44:52 Bradford Mak MD
--- NOTE | 2017-12-14 09:46 | PCM.DC ---
You will use the following diet at home:: Cardiac - no more then 2 grams of sodium, Fluid restricted (specify 2000 mls, 1500 mls) - Limit your fluid intake to 1,500 cc/daily Discharge Activity: - - Avoid exposure to any strong smells such as bleach, cleaning products, strong colognes or perfumes, paint fumes and smoke of any kind. Avoid sudden exposure to cold air because this can cause bronchospasm. You may want to cover your mouth when you go outside in the winter. Avoid exposure to anyone who is sick with a cough or sore throat. Lifting Restrictions: no more than 10 lbs Additional Activity Instructions:: work up to walking for 30 minutes a day. If you get tired, have shortness of breath or chest pain SIT DOWN. Call your doctor if your incision/area has: Continuous Slow Oozing, Sudden Increased Bleeding, Increased Pain/ Swelling, Increased Redness, Foul Smelling Discharge, Swelling at the incision site Call your doctor if you observe: Fever of 101 or Higher, Inability to urinate, Shortness of breath, Dizziness, Fainting spells, Swelling in the ankles, Chest pain Instructions: Fast-Acting Nitroglycerin Additional Instructions: 1. Weigh yourself EVERY morning after you urinate. Keep a record. If your weight goes up by more than 5 pounds in a week call Dr. Mak for instructions and CUT BACK ON SALT AND FLUIDS!!!! Allergies/Adverse Reactions: Allergies No Known Allergies Allergy (Verified 12/10/17 23:03) Medications to take at Discharge Acetaminophen [Tylenol Tablet] 650 mg PO Q6H PRN PRN #0 tablet 09/26/16 Albuterol Aerosols [Ventolin Aerosols] 2.5 mg INHALATION Q2H PRN PRN #30 vial.neb. 09/26/16 Albuterol Sulfate [Ventolin Hfa] 18 gm IH Q4H PRN PRN #1 hfa.aer.ad 09/26/16 Clopidogrel Bisulfate [Plavix] 75 mg PO DAILY #30 tablet 09/26/16 Potassium Chloride [K-Dur] 20 meq PO DAILY #30 tab 12/07/17 Prednisone [Deltasone] 40 mg PO DAILY 10 Days tab 12/07/17 Linezolid [Zyvox] 600 mg PO Q12H #12 tab 12/13/17 Albuterol Sulfate [Proventil Hfa] 6.7 gm IH Q2H PRN PRN #1 hfa.aer.ad 12/14/17 Ascorbic Acid [Vitamin C] 500 mg PO BIDCM #60 tab 12/14/17 Aspirin [Aspirin, Baby] 81 mg PO DAILY@0800 #30 tab.chew 12/14/17 Atorvastatin Calcium [Lipitor] 80 mg PO QHS #30 tab 12/14/17 Carvedilol [Coreg (Beta Fletcher)] 6.25 mg PO BID #60 tab 12/14/17 Clopidogrel Bisulfate [Plavix] 75 mg PO DAILY #30 tab 12/14/17 Ferrous Gluconate 325 mg PO BIDCM #60 tab 12/14/17 Furosemide [Lasix] 40 mg PO BID@1000,1800 #60 tab 12/14/17 Gabapentin [Neurontin] 600 mg PO DAILY #30 tab 12/14/17 Hydrocodone/Acetaminophen [Vicodin 5-300 mg Tablet] 1 tab PO Q4H PRN PRN 7 Days #20 tab 12/14/17 Isosorbide Mononitrate [Imdur] 60 mg PO BID #60 tab 12/14/17 Losartan Potassium [Cozaar] 50 mg PO DAILY #30 tab 12/14/17 Nitroglycerin [Nitrostat] 0.4 mg SUBLINGUAL Q5M PRN #1 bottle 12/14/17 Potassium Chloride [K-Dur] 20 meq PO DAILY #30 tab 12/14/17 Prednisone 40 mg PO DAILY #10 tab 12/14/17 Spironolactone [Aldactone] 25 mg PO DAILY #30 tab 12/14/17 The following prescriptions were given: Albuterol Sulfate [Proventil Hfa] 6.7 gm IH Q2H PRN PRN #1 hfa.aer.ad PRN Reason: Wheezing Hydrocodone/Acetaminophen [Vicodin 5-300 mg Tablet] 1 tab PO Q4H PRN PRN 7 Days #20 tab PRN Reason: pain in the joints Aspirin [Aspirin, Baby] 81 mg PO DAILY@0800 #30 tab.chew Atorvastatin Calcium [Lipitor] 80 mg PO QHS #30 tab Clopidogrel Bisulfate [Plavix] 75 mg PO DAILY #30 tab Furosemide [Lasix] 40 mg PO BID@1000,1800 #60 tab Gabapentin [Neurontin] 600 mg PO DAILY #30 tab Linezolid [Zyvox] 600 mg PO Q12H #12 tab Losartan Potassium [Cozaar] 50 mg PO DAILY #30 tab Nitroglycerin [Nitrostat] 0.4 mg SUBLINGUAL Q5M PRN #1 bottle PRN Reason: Cardiac/Chest Pain Potassium Chloride [K-Dur] 20 meq PO DAILY #30 tab Prednisone 40 mg PO DAILY #10 tab Spironolactone [Aldactone] 25 mg PO DAILY #30 tab Ascorbic Acid [Vitamin C] 500 mg PO BIDCM #60 tab Carvedilol [Coreg (Beta Fletcher)] 6.25 mg PO BID #60 tab Ferrous Gluconate 325 mg PO BIDCM #60 tab Isosorbide Mononitrate [Imdur] 60 mg PO BID #60 tab Primary Care Physician: Care Physician,No Primary [Primary Care Provider] - Please Follow Up With: Bradford Mak MD When: 1 week to set up appt with Dr. Kruger for AICD Please Follow Up With: Ramy Davis MD When: when he gets medicaid established Proposed Discharge Date: 12/14/17
[2017-12-14] MEDS: Spironolactone 25 MG Tablet PO (10:00)
[2017-12-14] MEDS: Famotidine 20 MG Tablet PO (10:01)
[2017-12-14] MEDS: Furosemide 40 MG Tablet PO (10:01)
--- NOTE | 2017-12-14 10:51 | CASEMGMT ---
Pt is ready for discharge today, pt is able to get most of his medications through the hospital assistance program, they will bring his meds to the room. SW let pt know this, explained that the 3 meds the hospital program cannot assist w/are iron, vitamin C, and aspirin. Pt states will fill these on his own. Pt is going to [place] at discharge so SW is not able to set up home care(no insurance) or [facility](they do not cover [place]). No further SW needs at this time, pt thanked SW for the assist. FRANCIA Vasquez, SENIOR CHEMIST
[2017-12-14 12:24] LABS: Hematocrit 35.5 % (40-54); Hemoglobin 10.5 g/dl (13.0-16.5); Mean Corp Hgb Conc 29.6 g/gl (32-36); Mean Corpuscular Hgb 21.9 pg (27.0-32.0); Mean Corpuscular Volume 74.1 fL (80-94); Mean Platelet Vol. 8.5 fl (6.2-12.0); Platelet Count 531 K/mm3 (150-450); RBC Distribution Width CV 20.5 % (11.6-14.6); RBC Distribution Width SD 54.4 fl (35.1-43.9); Red Blood Count 4.79 M/mm3 (4.6-6.2); Scan Indicated on CBC? Y/N YES- FLAGS NOTED; White Blood Count 9.3 K/mm3 (4.4-11.0)
[2017-12-14 12:50] LABS: CPK Total, Creatine Kinase 67 U/L (39-308)
--- NOTE | 2017-12-14 13:29 | PCM.HP.ID ---
Problem List (1) MRSA (methicillin resistant Staphylococcus aureus) infection Status: Acute Reason for Consult: (+) bcx Consulted by: Dr. Paredes History of Present Illness: The patient is a 57 year old M with ischemic cardiomyopathy who presented 12/11 from home via EMS with several days of progressive resp distress. He reports feeling like lungs were filling up with fluid. No fever, no sputum, no abd pain. Some chest pain. He was intubated by EMS, admitted to icu. Sputum cx with MRSA. Now on vanc. Was able to be extubated. Had cath done this AM. No new joint pain, no rash, no back pain. No prior h/o MRSA. Full ROS performed and neg except as noted above. - Medical History Past Medical History (Chronic Problems): Chronic Problems Systolic CHF, chronic (Chronic) CAD (coronary artery disease) (Chronic) COPD (chronic obstructive pulmonary disease) (Chronic) Tobacco abuse (Chronic) Medical non-compliance (Chronic) Ischemic cardiomyopathy (Chronic) Allergies/Adverse Reactions: Allergies No Known Allergies Allergy (Verified 12/10/17 23:03) Home Medications: Ambulatory Orders Medication Instructions Recorded Acetaminophen [Tylenol Tablet] 650 mg PO Q6H PRN PRN #0 tablet 09/26/16 Albuterol Aerosols [Ventolin 2.5 mg INHALATION Q2H PRN PRN #30 09/26/16 Aerosols] vial.neb. Albuterol Sulfate [Ventolin Hfa] 18 gm IH Q4H PRN PRN #1 hfa.aer.ad 09/26/16 Clopidogrel Bisulfate [Plavix] 75 mg PO DAILY #30 tablet 09/26/16 Potassium Chloride [K-Dur] 20 meq PO DAILY #30 tab 12/07/17 Prednisone [Deltasone] 40 mg PO DAILY 10 Days tab 12/07/17 Linezolid [Zyvox] 600 mg PO Q12H #12 tab 12/13/17 Albuterol Sulfate [Proventil Hfa] 6.7 gm IH Q2H PRN PRN #1 hfa.aer.ad 12/14/17 Ascorbic Acid [Vitamin C] 500 mg PO BIDCM #60 tab 12/14/17 Aspirin [Aspirin, Baby] 81 mg PO DAILY@0800 #30 tab.chew 12/14/17 Atorvastatin Calcium [Lipitor] 80 mg PO QHS #30 tab 12/14/17 Carvedilol [Coreg (Beta Fletcher)] 6.25 mg PO BID #60 tab 12/14/17 Clopidogrel Bisulfate [Plavix] 75 mg PO DAILY #30 tab 12/14/17 Ferrous Gluconate 325 mg PO BIDCM #60 tab 12/14/17 Furosemide [Lasix] 40 mg PO BID@1000,1800 #60 tab 12/14/17 Gabapentin [Neurontin] 600 mg PO DAILY #30 tab 12/14/17 Isosorbide Mononitrate [Imdur] 60 mg PO BID #60 tab 12/14/17 Losartan Potassium [Cozaar] 50 mg PO DAILY #30 tab 12/14/17 Nitroglycerin [Nitrostat] 0.4 mg SUBLINGUAL Q5M PRN #1 bottle 12/14/17 Potassium Chloride [K-Dur] 20 meq PO DAILY #30 tab 12/14/17 Prednisone 40 mg PO DAILY #10 tab 12/14/17 Spironolactone [Aldactone] 25 mg PO DAILY #30 tab 12/14/17 - Social History Tobacco Use: cigarettes SMOKING STATUS:: Current every day smoker Vital Signs Temp Pulse Resp BP Pulse Ox 98.1 F 87 18 122/86 H 100 12/14/17 12:00 12/14/17 12:00 12/14/17 12:00 12/14/17 12:00 12/14/17 12:00 Oxygen Flow Rate (L/min) 2 Oxygen Delivery Method Room Air Weight: 65.5 kg Body Mass Index (BMI) 20.5 Microbiology Past 72 Hours 12/13/17 09:45 Blood Culture - Preliminary Blood Culture (Wb) - Anticubital Right 12/11/17 11:10 Gram Stain - Final Sputum, Induced/[place] Respiratory Culture - Final Meth. resistant Staph. aureus 12/11/17 07:25 Respiratory Panel (PCR) - Final Mucosa - Nose Laboratory Tests Past 24 Hrs 12/13/17 12/13/17 12/14/17 17:00 20:55 00:55 WBC RBC Hgb Hct MCV MCH MCHC RDW RDW Differential Plt Count MPV Differential Comment PT INR APTT Sodium Potassium Chloride Carbon Dioxide Anion Gap BUN Creatinine Estim Creat Clear Calc Est GFR (MDRD) Af Amer Est GFR (MDRD) Non-Af BUN/Creatinine Ratio Glucose Calcium Total Creatine Kinase Troponin I 0.07 H 0.06 0.07 H 12/14/17 12/14/17 12/14/17 05:00 05:00 05:00 WBC 11.4 H RBC 4.35 L Hgb 9.6 L Hct 32.4 L MCV 74.5 L MCH 22.1 L MCHC 29.6 L RDW 20.3 H RDW Differential 52.9 H Plt Count 509 H MPV 8.3 Differential Comment SCANNED PT INR APTT Sodium 139 Potassium 3.9 Chloride 102 Carbon Dioxide 31.0 Anion Gap 6 BUN 34 H Creatinine 0.60 L Estim Creat Clear Calc 118.50 Est GFR (MDRD) Af Amer 176 Est GFR (MDRD) Non-Af 145 BUN/Creatinine Ratio 56.2 H Glucose 90 Calcium 8.1 L Total Creatine Kinase Troponin I 0.07 H 12/14/17 12/14/17 12/14/17 05:00 12:00 12:00 WBC 9.3 RBC 4.79 Hgb 10.5 L Hct 35.5 L MCV 74.1 L MCH 21.9 L MCHC 29.6 L RDW 20.5 H RDW Differential 54.4 H Plt Count 531 H MPV 8.5 Differential Comment PT 15.2 H INR 1.2 APTT 26.7 Sodium Potassium Chloride Carbon Dioxide Anion Gap BUN Creatinine Estim Creat Clear Calc Est GFR (MDRD) Af Amer Est GFR (MDRD) Non-Af BUN/Creatinine Ratio Glucose Calcium Total Creatine Kinase 67 Troponin I - Other Studies Radiology: [] reviewed Other Studies: [] Route of nutrition/ use of supplements: [] Nutritional Intake: [] IV Site: [] [place]inn Catheter: [] - Physical Exam General: Alert, Oriented x3, Cooperative, No apparent distress HEENT: Atraumatic, PERRLA, EOMI Neck: Supple, No Nodes Lungs: Clear to auscultation, Diminished Cardiovascular: Regular rate, Regular Rhythm Abdomen: Soft, Non Tender, Non-Distended Extremities: No edema Skin: No rashes IV Site: Peripheral, without redness Musculoskeletal: No Tenderness to Palpation of Joints or Extremities Neurological: Cranial nerves II-XII grossly intact - Assessment/Plan Antibiotics: [] Assessment/Plan: [] Active and Suspected Problems COPD exacerbation (Acute) Acute respiratory failure with hypoxemia (Acute) Elevated troponin (Acute) Iron deficiency anemia (Acute) NSVT (nonsustained ventricular tachycardia) (Acute) Acute bronchitis (Acute) Systolic CHF, acute on chronic (Acute) MRSA pneumonia - improving. Single Bcx now with [facility] in groups. PCR pending. Spoke with micro lab. If this is MRSA, he needs to remain in hospital and continue on iv vanc. If it is not staph aureus, ok for d/c home to complete course of linezolid. No sign of endocarditis on exam. Thank you, will follow, d/w Dr. Paredes.
--- NOTE | 2017-12-14 14:21 | CASEMGMT ---
All medications were brought to pt, including Zyvox. SW spoke w/physician in regard to pt, there is a culture still pending. Pt may be able to go home on Zyvox--and would then still be able to go home when discharged. However, he may still end up needing IV antibiotics. If pt needs IV antibiotics, SW will need to follow up on Sunday to see if pt would now be agreeable to detention placement. SW called [facility] in [place], spoke w/Terese in the detention dept. Pt's Medicaid application has not yet been scanned in. She states they do not issue pending numbers but once it is pending a potential detention can look it up in the system and see it is pending. Terese will let this SW know Sunday if the application is in and pending, she states to call her if SW does not hear back by the afternoon. SW will follow up w/pt on Sunday if he is still here. FRANCIA Vasquez, MACHINE GREASER
--- NOTE | 2017-12-14 15:47 | PCM.DC.SUM ---
Discharge Date and Diagnosis Date of Admission: 12/11/17 Date of Discharge: 12/14/17 - Primary Discharge Diagnosis Active and Suspected Problems MRSA (methicillin resistant Staphylococcus aureus) infection (Acute) - acute bronchitis COPD exacerbation (Acute) Acute respiratory failure with hypoxemia (Acute) - requiring intubation Elevated troponin (Acute) - did not trend Iron deficiency anemia (Acute) NSVT (nonsustained ventricular tachycardia) (Acute) Acute bronchitis (Acute) Systolic CHF, acute on chronic (Acute) - Secondary Discharge Diagnosis Chronic Problems Systolic CHF, chronic (Chronic) CAD (coronary artery disease) (Chronic) COPD (chronic obstructive pulmonary disease) (Chronic) Tobacco abuse (Chronic) Medical non-compliance (Chronic) with follow up, diet, medications and fluid restriction Ischemic cardiomyopathy (Chronic) - 10% EF Multiple cardiac stents in the past Hospital Course and Treatment Imaging Results: Clinical Impression(s) from Imaging Studies Chest X-Ray 12/10/17 23:05 IMPRESSION: No evidence of focal consolidation or acute process. Electronically Signed: Noel Saha DO at 23:23 EDT , Service support , Chest X-Ray 12/11/17 00:01 IMPRESSION: The NG tube is just past the gastroesophageal junction and could be advanced 5 to 10 cm. Endotracheal tube in satisfactory position. Cardiomegaly. Electronically Signed: Elizabeth Welsh MD at 1:01 EDT Tel , Service support , Chest X-Ray 12/11/17 07:09 IMPRESSION: Mild increased markings at the left lung base suggesting atelectasis. Support tubes are in good position. Electronically Signed: Darrick Coreas MD at 11:05 EDT Tel [phone], Service support , Chest X-Ray 12/12/17 05:55 IMPRESSION: Decrease of previous interstitial prominence likely superimposed component of COPD. There is borderline cardiac size. Other nonacute findings as outlined above. No pulmonary edema, congestive heart failure or confluent pneumonia. Electronically Signed: Ilsa Lobato MD at 6:15 EDT , Service support , Laboratory Results - last 24 hr 12/13/17 12/13/17 12/14/17 17:00 20:55 00:55 WBC RBC Hgb Hct MCV MCH MCHC RDW RDW Differential Plt Count MPV Differential Comment PT INR APTT Sodium Potassium Chloride Carbon Dioxide Anion Gap BUN Creatinine Estim Creat Clear Calc Est GFR (MDRD) Af Amer Est GFR (MDRD) Non-Af BUN/Creatinine Ratio Glucose Calcium Total Creatine Kinase Troponin I 0.07 H 0.06 0.07 H 12/14/17 12/14/17 12/14/17 05:00 05:00 05:00 WBC 11.4 H RBC 4.35 L Hgb 9.6 L Hct 32.4 L MCV 74.5 L MCH 22.1 L MCHC 29.6 L RDW 20.3 H RDW Differential 52.9 H Plt Count 509 H MPV 8.3 Differential Comment SCANNED PT INR APTT Sodium 139 Potassium 3.9 Chloride 102 Carbon Dioxide 31.0 Anion Gap 6 BUN 34 H Creatinine 0.60 L Estim Creat Clear Calc 118.50 Est GFR (MDRD) Af Amer 176 Est GFR (MDRD) Non-Af 145 BUN/Creatinine Ratio 56.2 H Glucose 90 Calcium 8.1 L Total Creatine Kinase Troponin I 0.07 H 12/14/17 12/14/17 12/14/17 05:00 12:00 12:00 WBC 9.3 RBC 4.79 Hgb 10.5 L Hct 35.5 L MCV 74.1 L MCH 21.9 L MCHC 29.6 L RDW 20.5 H RDW Differential 54.4 H Plt Count 531 H MPV 8.5 Differential Comment PT 15.2 H INR 1.2 APTT 26.7 Sodium Potassium Chloride Carbon Dioxide Anion Gap BUN Creatinine Estim Creat Clear Calc Est GFR (MDRD) Af Amer Est GFR (MDRD) Non-Af BUN/Creatinine Ratio Glucose Calcium Total Creatine Kinase 67 Troponin I Microbiology 12/13/17 09:45 Blood Culture (Wb) - Anticubital Right Bacteria Detection (PCR) - Final Staphylococcus epidermidis mecA Resistance Marker 12/13/17 09:45 Blood Culture (Wb) - Anticubital Right Blood Culture - Preliminary Staphylococcus epidermidis 12/11/17 11:10 Sputum, Induced/Lukens Gram Stain - Final 12/11/17 11:10 Sputum, Induced/Lukens Respiratory Culture - Final Meth. resistant Staph. aureus 12/11/17 07:25 Mucosa - Nose Respiratory Panel (PCR) - Final 12/11/17 00:54 Mucosa - Nasopharyngeal Influenza Types A,B Direct FA (SHARON) - Final Kia Mak-[facility] Dr. Fco Ahmadi-transfer car operator Dr. Morgan Cerda-infectious disease Operations: None Procedures: 2-D Echocardiogram, Cardiac catheterization Summary of Care Provided: Patient is a 57-year-old male with a past medical history of COPD, congestive heart failure, coronary artery disease, severe cardiomyopathy, former alcohol abuse and ongoing tobacco abuse who presented to the emergency room at [facility] by squad on 12/11/2017 due to severe respiratory distress. Vital signs at presentation to the emergency room were temp 97.7, pulse rate 111, blood pressure 158/95, respiratory rate 28 and he was 100% saturated on BiPAP. The respiratory rate later increased and the patient was beginning to fatigue so he was intubated and placed on mechanical ventilation. Significant lab included a normal white blood cell count of 8.2 with 88% neutrophils. Hemoglobin was 9.3 and the MCV was 74. Platelet count was within normal limits. BMP was unremarkable. BNP was increased at 1577. Troponin was 0.08. X-ray showed no pleural effusions or infiltrates but did show pulmonary vascular congestion. MRSA nasal swab was positive. He was admitted to the intensive care unit with a diagnosis of acute respiratory failure with hypoxemia secondary to acute on chronic systolic congestive heart failure and acute exacerbation of COPD. Dr. Ahmadi was consulted to participate in ICU management. He was started on high-dose intravenous steroids and aerosolized bronchodilators. He was diuresed with furosemide. After he diuresed 5 L the wheezing present at admission completely resolved. He was extubated on 12/12/2017. Serial cardiac enzymes revealed the troponin was not trending. He was seen in consultation by Dr. Bradford Mak from the [facility] who recommended a cardiac catheterization. There were no infiltrates on chest x-ray but the sputum Gram stain had white blood cells and the culture grew 3+ MRSA. He was treated with vancomycin. Cardiac catheterization was done on 12/14/17 and showed an ejection fraction of 10-15% with global hypokinesis. The left main was nonobstructed. The left anterior descending showed a previous stent that was patent. The diagonal 1 showed luminal irregularities with less than 30% stenosis. Circumflex artery showed previous stent to be patent. Diagonal #2 was nonobstructed. There was restenosis of a stent in the mid RCA that was estimated at 20%. 1 of 2 blood cultures grew staph epidermidis. Patient demanded to be discharged within a few hours after catheterization. He stated he would leave AGAINST MEDICAL ADVICE if necessary. He was given prescriptions for Zyvox 600 mg twice daily to complete a 10 day course of antibiotics for MRSA bronchitis. Since he had no insurance the hospital paid for 1 month of medications for this gentleman, please see the discharge instructions for complete list. He was instructed to follow-up with Dr. Bradford Mak in the office in 1 week to arrange AICD placement by Dr. Kruger at [facility]. The medications were filled in the OP pharmacy and given to the pt at [place]. He has been non-compliant with medications and follow up in the past and has had frequent hospital admissions, both in [place] and in [place]. I suspect he does not have the mental capacity to understand how significant the risk for sudden is in a patient with a 10-15% EF with no AICD and no Life vest who does not take his medications and does not follow up for ongoing cardiac care. If he gets insurance in the future he may be a good candidate for the Community Outreach program. This note was generated with [employer] dictation software. It may contain incorrect words, spelling, and punctuation that were not noted in checking the note before signing. Discharge Activity: - - Avoid exposure to any strong smells such as bleach, cleaning products, strong colognes or perfumes, paint fumes and smoke of any kind. Avoid sudden exposure to cold air because this can cause bronchospasm. You may want to cover your mouth when you go outside in the winter. Avoid exposure to anyone who is sick with a cough or sore throat. Additional Activity Instructions:: work up to walking for 30 minutes a day. If you get tired, have shortness of breath or chest pain SIT DOWN. Call your doctor if your incision/area has: Continuous Slow Oozing, Sudden Increased Bleeding, Increased Pain/ Swelling, Increased Redness, Foul Smelling Discharge, Swelling at the incision site Call your doctor if you observe: Fever of 101 or Higher, Inability to urinate, Shortness of breath, Dizziness, Fainting spells, Swelling in the ankles, Chest pain Home Medications: Medications to take at Discharge Acetaminophen [Tylenol Tablet] 650 mg PO Q6H PRN PRN #0 tablet 09/26/16 Albuterol Aerosols [Ventolin Aerosols] 2.5 mg INHALATION Q2H PRN PRN #30 vial.neb. 09/26/16 Albuterol Sulfate [Ventolin Hfa] 18 gm IH Q4H PRN PRN #1 hfa.aer.ad 09/26/16 Clopidogrel Bisulfate [Plavix] 75 mg PO DAILY #30 tablet 09/26/16 Potassium Chloride [K-Dur] 20 meq PO DAILY #30 tab 12/07/17 Linezolid [Zyvox] 600 mg PO Q12H #12 tab 12/13/17 Albuterol Sulfate [Proventil Hfa] 6.7 gm IH Q2H PRN PRN #1 hfa.aer.ad 12/14/17 Ascorbic Acid [Vitamin C] 500 mg PO BIDCM #60 tab 12/14/17 Aspirin [Aspirin, Baby] 81 mg PO DAILY@0800 #30 tab.chew 12/14/17 Atorvastatin Calcium [Lipitor] 80 mg PO QHS #30 tab 12/14/17 Carvedilol [Coreg (Beta Fletcher)] 6.25 mg PO BID #60 tab 12/14/17 Ferrous Gluconate 325 mg PO BIDCM #60 tab 12/14/17 Gabapentin [Neurontin] 600 mg PO DAILY #30 tab 12/14/17 Hydrocodone/Acetaminophen [Vicodin 5-300 mg Tablet] 1 tab PO Q4H PRN PRN 7 Days #20 tab 12/14/17 Nitroglycerin [Nitrostat] 0.4 mg SUBLINGUAL Q5M PRN #1 bottle 12/14/17 Prednisone 40 mg PO DAILY #10 tab 12/14/17 Furosemide [Lasix] 40 mg PO DAILY #30 tab 12/18/17 Isosorbide Mononitrate [Imdur] 30 mg PO DAILY #30 tab 12/18/17 Losartan Potassium [Cozaar] 25 mg PO DAILY #30 tab 12/18/17 Prednisone [Deltasone] 40 mg PO DAILY 10 Days tab 12/18/17 Following Prescrptions Were Given to Patient: Albuterol Sulfate [Proventil Hfa] 6.7 gm IH Q2H PRN PRN #1 hfa.aer.ad PRN Reason: Wheezing Hydrocodone/Acetaminophen [Vicodin 5-300 mg Tablet] 1 tab PO Q4H PRN PRN 7 Days #20 tab PRN Reason: pain in the joints Aspirin [Aspirin, Baby] 81 mg PO DAILY@0800 #30 tab.chew Atorvastatin Calcium [Lipitor] 80 mg PO QHS #30 tab Gabapentin [Neurontin] 600 mg PO DAILY #30 tab Linezolid [Zyvox] 600 mg PO Q12H #12 tab Nitroglycerin [Nitrostat] 0.4 mg SUBLINGUAL Q5M PRN #1 bottle PRN Reason: Cardiac/Chest Pain Prednisone 40 mg PO DAILY #10 tab Ascorbic Acid [Vitamin C] 500 mg PO BIDCM #60 tab Carvedilol [Coreg (Beta Fletcher)] 6.25 mg PO BID #60 tab Ferrous Gluconate 325 mg PO BIDCM #60 tab Primary Care Physician: Care Physician,No Primary [Primary Care Provider] - Please Follow Up With: Bradford Mak MD When: 1 week to set up appt with Dr. Kruger for AICD Please Follow Up With: Ramy Davis MD When: when he gets medicaid established Patient Instructions: Fast-Acting Nitroglycerin Disposition: Home Minutes spent on discharge:: 40 Patient Condition:: Guarded Medical Necessity - Tobacco Use Smoking Status: Current every day smoker Meaningful Use Info Meaningful Use Diagnoses (Choose all that apply): CHF - CHF YUE/ARB ordered at discharge?: Yes Documented LVEF (%): 10 Code Visit Inpatient E&M: 30832 Disch Hosp
--- NOTE | 2017-12-14 15:57 | DS.PCM_ITS ---
Discharge Date and Diagnosis Date of Admission: 12/11/17 Date of Discharge: 12/14/17 - Primary Discharge Diagnosis Active and Suspected Problems MRSA (methicillin resistant Staphylococcus aureus) infection (Acute) - acute bronchitis COPD exacerbation (Acute) Acute respiratory failure with hypoxemia (Acute) - requiring intubation Elevated troponin (Acute) - did not trend Iron deficiency anemia (Acute) NSVT (nonsustained ventricular tachycardia) (Acute) Acute bronchitis (Acute) Systolic CHF, acute on chronic (Acute) - Secondary Discharge Diagnosis Chronic Problems Systolic CHF, chronic (Chronic) CAD (coronary artery disease) (Chronic) COPD (chronic obstructive pulmonary disease) (Chronic) Tobacco abuse (Chronic) Medical non-compliance (Chronic) with follow up, diet, medications and fluid restriction Ischemic cardiomyopathy (Chronic) - 10% EF Multiple cardiac stents in the past Hospital Course and Treatment Imaging Results: Clinical Impression(s) from Imaging Studies Chest X-Ray 12/10/17 23:05 IMPRESSION: No evidence of focal consolidation or acute process. Electronically Signed: Noel Saha DO at 23:23 EDT , Service support , Chest X-Ray 12/11/17 00:01 IMPRESSION: The NG tube is just past the gastroesophageal junction and could be advanced 5 to 10 cm. Endotracheal tube in satisfactory position. Cardiomegaly. Electronically Signed: Elizabeth Welsh MD at 1:01 EDT Tel , Service support , Chest X-Ray 12/11/17 07:09 IMPRESSION: Mild increased markings at the left lung base suggesting atelectasis. Support tubes are in good position. Electronically Signed: Darrick Coreas MD at 11:05 EDT Tel [phone], Service support , Chest X-Ray 12/12/17 05:55 IMPRESSION: Decrease of previous interstitial prominence likely superimposed component of COPD. There is borderline cardiac size. Other nonacute findings as outlined above. No pulmonary edema, congestive heart failure or confluent pneumonia. Electronically Signed: Ilsa Lobato MD at 6:15 EDT , Service support , Laboratory Results - last 24 hr 12/13/17 12/13/17 12/14/17 17:00 20:55 00:55 WBC RBC Hgb Hct MCV MCH MCHC RDW RDW Differential Plt Count MPV Differential Comment PT INR APTT Sodium Potassium Chloride Carbon Dioxide Anion Gap BUN Creatinine Estim Creat Clear Calc Est GFR (MDRD) Af Amer Est GFR (MDRD) Non-Af BUN/Creatinine Ratio Glucose Calcium Total Creatine Kinase Troponin I 0.07 H 0.06 0.07 H 12/14/17 12/14/17 12/14/17 05:00 05:00 05:00 WBC 11.4 H RBC 4.35 L Hgb 9.6 L Hct 32.4 L MCV 74.5 L MCH 22.1 L MCHC 29.6 L RDW 20.3 H RDW Differential 52.9 H Plt Count 509 H MPV 8.3 Differential Comment SCANNED PT INR APTT Sodium 139 Potassium 3.9 Chloride 102 Carbon Dioxide 31.0 Anion Gap 6 BUN 34 H Creatinine 0.60 L Estim Creat Clear Calc 118.50 Est GFR (MDRD) Af Amer 176 Est GFR (MDRD) Non-Af 145 BUN/Creatinine Ratio 56.2 H Glucose 90 Calcium 8.1 L Total Creatine Kinase Troponin I 0.07 H 12/14/17 12/14/17 12/14/17 05:00 12:00 12:00 WBC 9.3 RBC 4.79 Hgb 10.5 L Hct 35.5 L MCV 74.1 L MCH 21.9 L MCHC 29.6 L RDW 20.5 H RDW Differential 54.4 H Plt Count 531 H MPV 8.5 Differential Comment PT 15.2 H INR 1.2 APTT 26.7 Sodium Potassium Chloride Carbon Dioxide Anion Gap BUN Creatinine Estim Creat Clear Calc Est GFR (MDRD) Af Amer Est GFR (MDRD) Non-Af BUN/Creatinine Ratio Glucose Calcium Total Creatine Kinase 67 Troponin I Microbiology 12/13/17 09:45 Blood Culture (Wb) - Anticubital Right Bacteria Detection ( PCR) - Final Staphylococcus epidermidis mecA Resistance Marker 12/13/17 09:45 Blood Culture (Wb) - Anticubital Right Blood Culture - Preliminary Staphylococcus epidermidis 12/11/17 11:10 Sputum, Induced/Lukens Gram Stain - Final 12/11/17 11:10 Sputum, Induced/Lukens Respiratory Culture - Final Meth. resistant Staph. aureus 12/11/17 07:25 Mucosa - Nose Respiratory Panel (PCR) - Final 12/11/17 00:54 Mucosa - Nasopharyngeal Influenza Types A,B Direct FA (SHARON) - Final Kia Mak[facility] Dr. 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 Mogran Cerda-infectious disease Operations: None Procedures: 2-D Echocardiogram, Cardiac catheterization Summary of Care Provided: Patient is a 57-year-old male with a past medical history of COPD, congestive heart failure, coronary artery disease, severe cardiomyopathy, former alcohol abuse and ongoing tobacco abuse who presented to the emergency room at [facility] by squad on 12/11/2017 due to severe respiratory distress. Vital signs at presentation to the emergency room were temp 97.7, pulse rate 111, blood pressure 158/95, respiratory rate 28 and he was 100% saturated on BiPAP. The respiratory rate later increased and the patient was beginning to fatigue so he was intubated and placed on mechanical ventilation. Significant lab included a normal white blood cell count of 8.2 with 88% neutrophils. Hemoglobin was 9.3 and the MCV was 74. Platelet count was within normal limits. BMP was unremarkable. BNP was increased at 1577. Troponin was 0.08. X-ray showed no pleural effusions or infiltrates but did show pulmonary vascular congestion. MRSA nasal swab was positive. He was admitted to the intensive care unit with a diagnosis of acute respiratory failure with hypoxemia secondary to acute on chronic systolic congestive heart failure and acute exacerbation of COPD. Dr. Ahmadi was consulted to participate in ICU management. He was started on high-dose intravenous steroids and aerosolized bronchodilators. He was diuresed with furosemide. After he diuresed 5 L the wheezing present at admission completely resolved. He was extubated on 12/12/2017. Serial cardiac enzymes revealed the troponin was not trending. He was seen in consultation by Dr. Bradford Mak from the [facility] who recommended a cardiac catheterization. There were no infiltrates on chest x-ray but the sputum Gram stain had white blood cells and the culture grew 3+ MRSA. He was treated with vancomycin. Cardiac catheterization was done on 12/14/17 and showed an ejection fraction of 10-15% with global hypokinesis. The left main was nonobstructed. The left anterior descending showed a previous stent that was patent. The diagonal 1 showed luminal irregularities with less than 30% stenosis. Circumflex artery showed previous stent to be patent. Diagonal #2 was nonobstructed. There was restenosis of a stent in the mid RCA that was estimated at 20%. 1 of 2 blood cultures grew staph epidermidis. Patient demanded to be discharged within a few hours after catheterization. He stated he would leave AGAINST MEDICAL ADVICE if necessary. He was given prescriptions for Zyvox 600 mg twice daily to complete a 10 day course of antibiotics for MRSA bronchitis. Since he had no insurance the hospital paid for 1 month of medications for this gentleman, please see the discharge instructions for complete list. He was instructed to follow-up with Dr. Bradford Mak in the office in 1 week to arrange AICD placement by Dr. Kruger at [facility]. The medications were filled in the OP pharmacy and given to the pt at [place]. He has been non-compliant with medications and follow up in the past and has had frequent hospital admissions, both in [place] and in [place]. I suspect he does not have the mental capacity to understand how significant the risk for sudden is in a patient with a 10-15% EF with no AICD and no Life vest who does not take his medications and does not follow up for ongoing cardiac care. If he gets insurance in the future he may be a good candidate for the Community Outreach program. This note was generated with [employer] dictation software. It may contain incorrect words, spelling, and punctuation that were not noted in checking the note before signing. Discharge Activity: - - Avoid exposure to any strong smells such as bleach, cleaning products, strong colognes or perfumes, paint fumes and smoke of any kind. Avoid sudden exposure to cold air because this can cause bronchospasm. You may want to cover your mouth when you go outside in the winter. Avoid exposure to anyone who is sick with a cough or sore throat. Additional Activity Instructions:: work up to walking for 30 minutes a day. If you get tired, have shortness of breath or chest pain SIT DOWN. Call your doctor if your incision/area has: Continuous Slow Oozing, Sudden Increased Bleeding, Increased Pain/ Swelling, Increased Redness, Foul Smelling Discharge, Swelling at the incision site Call your doctor if you observe: Fever of 101 or Higher, Inability to urinate, Shortness of breath, Dizziness, Fainting spells, Swelling in the ankles, Chest pain Home Medications: Medications to take at Discharge Acetaminophen [Tylenol Tablet] 650 mg PO Q6H PRN PRN #0 tablet 09/26/16 Albuterol Aerosols [Ventolin Aerosols] 2.5 mg INHALATION Q2H PRN PRN #30 vial.neb. 09/26/16 Albuterol Sulfate [Ventolin Hfa] 18 gm IH Q4H PRN PRN #1 hfa.aer.ad 09/26/16 Clopidogrel Bisulfate [Plavix] 75 mg PO DAILY #30 tablet 09/26/16 Potassium Chloride [K-Dur] 20 meq PO DAILY #30 tab 12/07/17 Linezolid [Zyvox] 600 mg PO Q12H #12 tab 12/13/17 Albuterol Sulfate [Proventil Hfa] 6.7 gm IH Q2H PRN PRN #1 hfa.aer.ad 12/14/17 Ascorbic Acid [Vitamin C] 500 mg PO BIDCM #60 tab 12/14/17 Aspirin [Aspirin, Baby] 81 mg PO DAILY@0800 #30 tab.chew 12/14/17 Atorvastatin Calcium [Lipitor] 80 mg PO QHS #30 tab 12/14/17 Carvedilol [Coreg (Beta Fletcher)] 6.25 mg PO BID #60 tab 12/14/17 Ferrous Gluconate 325 mg PO BIDCM #60 tab 12/14/17 Gabapentin [Neurontin] 600 mg PO DAILY #30 tab 12/14/17 Hydrocodone/Acetaminophen [Vicodin 5-300 mg Tablet] 1 tab PO Q4H PRN PRN 7 Days #20 tab 12/14/17 Nitroglycerin [Nitrostat] 0.4 mg SUBLINGUAL Q5M PRN #1 bottle 12/14/17 Prednisone 40 mg PO DAILY #10 tab 12/14/17 Furosemide [Lasix] 40 mg PO DAILY #30 tab 12/18/17 Isosorbide Mononitrate [Imdur] 30 mg PO DAILY #30 tab 12/18/17 Losartan Potassium [Cozaar] 25 mg PO DAILY #30 tab 12/18/17 Prednisone [Deltasone] 40 mg PO DAILY 10 Days tab 12/18/17 Following Prescrptions Were Given to Patient: Albuterol Sulfate [Proventil Hfa] 6.7 gm IH Q2H PRN PRN #1 hfa.aer.ad PRN Reason: Wheezing Hydrocodone/Acetaminophen [Vicodin 5-300 mg Tablet] 1 tab PO Q4H PRN PRN 7 Days #20 tab PRN Reason: pain in the joints Aspirin [Aspirin, Baby] 81 mg PO DAILY@0800 #30 tab.chew Atorvastatin Calcium [Lipitor] 80 mg PO QHS #30 tab Gabapentin [Neurontin] 600 mg PO DAILY #30 tab Linezolid [Zyvox] 600 mg PO Q12H #12 tab Nitroglycerin [Nitrostat] 0.4 mg SUBLINGUAL Q5M PRN #1 bottle PRN Reason: Cardiac/Chest Pain Prednisone 40 mg PO DAILY #10 tab Ascorbic Acid [Vitamin C] 500 mg PO BIDCM #60 tab Carvedilol [Coreg (Beta Fletcher)] 6.25 mg PO BID #60 tab Ferrous Gluconate 325 mg PO BIDCM #60 tab Primary Care Physician: Care Physician,No Primary [Primary Care Provider] - Please Follow Up With: Bradford Mak MD When: 1 week to set up appt with Dr. Kruger for AICD Please Follow Up With: Ramy Davis MD When: when he gets medicaid established Patient Instructions: Fast-Acting Nitroglycerin Disposition: Home Minutes spent on discharge:: 40 Patient Condition:: Guarded Medical Necessity - Tobacco Use Smoking Status: Current every day smoker Meaningful Use Info Meaningful Use Diagnoses (Choose all that apply): CHF - CHF YUE/ARB ordered at discharge?: Yes Documented LVEF (%): 10 Code Visit Inpatient E&M: 93676 Disch Hosp
--- NOTE | 2017-12-14 16:22 | CASEMGMT ---
Pt can go home on oral Zyvox, pt will go home today. FRANCIA Vasquez, EXPLOSIVE MAN
--- NOTE | 2017-12-16 23:58 | EKG12_ITS ---
Test Reason : DIZZINESS Blood Pressure : / mmHG Vent. Rate : 080 BPM Atrial Rate : 080 BPM P-R Int : 204 ms QRS Dur : 104 ms QT Int : 426 ms P-R-T Axes : 077 -52 142 degrees QTc Int : 491 ms Normal sinus rhythm Left anterior fascicular block Septal infarct , age undetermined T wave abnormality, consider anterolateral ischemia Abnormal ECG Confirmed by PRETTY BARLOW, HIRA ([id number]), story editor AMADOR EDMONDS ([id number] on 12/18/2017 3:28:07 PM Referred By: BURT Confirmed By:HIRA OLSEN MD
== END 2017-12-14 16:35 | disposition home or self-care (01) | DRG 208 ==
LOC: ED 23:19 → ICU 12-11 06:19 → PCU 09-10 14:37
PROVIDERS: Internal Medicine Cardiovascular Disease; Internal Medicine Critical Care Medicine; Admitting Provider Family Medicine; Emergency Provider Emergency Medicine; Visit Provider Internal Medicine
DX: J96.21 Acute and chronic respiratory failure with hypoxia (principal); I50.23 Acute on chronic systolic (congestive) heart failure; I25.10 Atherosclerotic heart disease of native coronary artery without angina pectoris; I25.2 Old myocardial infarction; J44.0 Chronic obstructive pulmonary disease with (acute) lower respiratory infection; J44.1 Chronic obstructive pulmonary disease with (acute) exacerbation; J20.8 Acute bronchitis due to other specified organisms; B95.62 Methicillin resistant Staphylococcus aureus infection as the cause of diseases classified elsewhere; I25.5 Ischemic cardiomyopathy; D50.9 Iron deficiency anemia, unspecified; I47.2 Ventricular tachycardia; F17.210 Nicotine dependence, cigarettes, uncomplicated; Z99.81 Dependence on supplemental oxygen; Z95.5 Presence of coronary angioplasty implant and graft; Z79.899 Other long term (current) drug therapy; Z79.02 Long term (current) use of antithrombotics/antiplatelets; Z23 Encounter for immunization; Z91.19 Patient's noncompliance with other medical treatment and regimen; Z79.82 Long term (current) use of aspirin; F41.9 Anxiety disorder, unspecified; R94.31 Abnormal electrocardiogram [ECG] [EKG]
CPT/HCPCS: 31500; 31720; 36600; 51702; 71045; 80048; 80053; 80307; 80320; 82550; 82728; 82803; 83540; 83550; 83605; 83735; 83880; 84100; 84484; 85025; 85027; 85045; 85610; 85730; 87040; 87070; 87077; 87149; 87186; 87205; 87633; 87641; 87804; 93005; 93306; 93458; 94003; 94640; 94660; 94799; 95831; 97110; 97116; 97162; 97166; 97530; 97802; 99152; 99153; 99218; 99251; 99285; J7030; A4216; C1769; C1894; G0378; G0463; G0480; J0330; J1940; Q9967

== ENCOUNTER 2017-12-16 23:06 | Observation (INO) | payer MEDICAID, SELFPAY ==
[2017-12-16 23:07] VITALS: BP 75/50; PULSE 80; RESP 22; TEMP 36.9; O2SAT 97; BMI 24.3
--- NOTE | 2017-12-16 23:47 | RAD_ITS ---
STUDY: X-RAY CHEST REASON FOR EXAM: Male, 57 years old. Chest pain. TECHNIQUE: Single AP portable view of the chest. COMPARISON: 12/12/2017. FINDINGS: The lungs are mildly hyper expanded. There are areas of mild chronic interstitial prominence with no demonstrated focal pulmonary infiltrate. there is no demonstrated pleural abnormality. There is mild cardiac enlargement. Normal mediastinum and alberto. Normal visualized pulmonary arteries. There is atherosclerotic calcification of the aortic arch with tortuosity. Normal visualized thoracic spine. There are degenerative changes of the acromioclavicular joints. There is no demonstrated abnormality of the visualized soft tissue structures of the upper abdomen. RAD/Chest 1 View (Portable) IMPRESSION: COPD. Mild cardiomegaly. No evidence for acute cardiopulmonary pathology. Electronically Signed: Trey Roman MD at 0:21 EDT , Service support ,
--- NOTE | 2017-12-16 23:47 | EKG12_ITS ---
Test Reason : CP Blood Pressure : / mmHG Vent. Rate : 085 BPM Atrial Rate : 085 BPM P-R Int : 182 ms QRS Dur : 100 ms QT Int : 398 ms P-R-T Axes : 082 -46 167 degrees QTc Int : 473 ms Normal sinus rhythm with sinus arrhythmia Left anterior fascicular block Septal infarct , age undetermined ST & T wave abnormality, consider anterolateral ischemia Abnormal ECG When compared with ECG of 13-DEC-2017 15:01, MANUAL COMPARISON REQUIRED, DATA IS UNCONFIRMED Confirmed by ERON TIRADO ([id number]), research editor AMADOR EDMONDS ([id number] on 12/17/2017 2:50:32 PM Referred By: EVY Confirmed By:ERON TIRADO
[2017-12-17] VITALS (14 sets, daily range): BP systolic 94–150; BP diastolic 54–87; PULSE 68–108; RESP 12–19; TEMP 36.6–37.4; O2SAT 97–100; BMI 23.0
[2017-12-17 00:30] LABS: Hematocrit 32.1 % (40-54); Hemoglobin 9.7 g/dl (13.0-16.5); Mean Corp Hgb Conc 30.2 g/gl (32-36); Mean Corpuscular Hgb 22.2 pg (27.0-32.0); Mean Corpuscular Volume 73.6 fL (80-94); Mean Platelet Vol. 8.5 fl (6.2-12.0); Platelet Count 483 K/mm3 (150-450); RBC Distribution Width CV 20.1 % (11.6-14.6); RBC Distribution Width SD 52.4 fl (35.1-43.9); Red Blood Count 4.36 M/mm3 (4.6-6.2); White Blood Count 12.7 K/mm3 (4.4-11.0)
[2017-12-17 00:39] LABS: POSITIVE COUNT YES; POSITIVE DIFFERENTIAL NO; POSITIVE MORPHOLOGY YES
[2017-12-17 00:40] LABS: Anion Gap 7 (5-15); BUN 31 mg/dL (7-18); BUN/Creat Ratio 34.8 RATIO (10-20); Chloride 99 mmol/L (98-107); Creatinine, Serum 0.89 mg/dL (0.70-1.30); EST Glomerular Filtration Rate 93 mL/min (>60); Est Glom Filt Rate - Afr Amer 112 mL/min (>60); Estimated Creatinine Clearance 86.46 ml/min; Glucose 93 mg/dL (74-106); Potassium 4.5 mmol/L (3.5-5.1); Sodium Level 137 mmol/L (136-145)
[2017-12-17 00:54] LABS: Lactic Acid 1.1 mmol/L (0.4-2.0)
[2017-12-17 01:03] LABS: Differential Indicated MANUAL DIFF
[2017-12-17 01:04] LABS: Scan Smear per Review Criteria MANUAL DIFF
[2017-12-17 01:08] LABS: Eosinophil 2 % (0-5); Lymphocyte 16 % (19-41); Metamyelocyte 3 % (0-1); Monocyte 7 % (0-10); Neutrophil-Segmented 72 % (47-70); Total Cells Counted 100 (MANUAL DIFF)
[2017-12-17 01:09] LABS: Hypochromasia 3+; Microcytosis 2+; Platelet Estimate ADEQUATE (ADEQ)
[2017-12-17 01:10] LABS: Absolute Lymphocyte Count 2.03 X10^3/ul (0.83-4.51); Absolute Neutrophil Count 9.1 X10^3/uL (2.0-7.7); Lymphocyte # 2.03 X10^3/ul (4.0); Neutrophil # 9.14 X10^3/uL (2.7-7.7); Ovalocyte 1+; Target Cells 2+
--- NOTE | 2017-12-17 01:14 | ED.VISSUMM ---
- ER Visit Summary Date of Service: 12/17/17 Chief Complaint: Blood pressure and near syncope History of Present Illness: The patient is a 57 M 3 of a known cardiomyopathy. He is an EF around 15%. Known CAD with 10-15 cardiac stents. Prior CHF. History of hypertension and chronic anemia. History of A. fib. Patient took his medications tonight about 2 hours prior to arrival felt lightheaded dizzy like he might pass out. He lives with family and they caught him and It from falling. He denies any headache, chest pain, abdominal pain. He denies any nausea vomiting or diarrhea. Denies any melena or fever. Physical Examination: Initial blood pressure 75/50 temperature 94 pulse ox 97% on room air no signs of hypoxia. He is in no distress. Other than his blood pressure being low. HEENT exam unremarkable neck nontender no lymphadenopathy. Heart regular rhythm. Abdomen is soft nontender. Lungs are clear to auscultation bilaterally. Extremities moves all 4. No edema. No deformities. Neurologically is awake and alert without focal motor deficits. Skin unremarkable. Test Results: CBC shows a chronic anemia of 9.7. No bands. White count 12.7. BMP unremarkable other than a BUN of 31 creatinine 0.8 consistent with mild dehydration. Normal gap. His troponin is elevated 0.08 he normally has a elevated troponin. Lactic acid is normal at 1.1. Chest x-ray shows mild cardiomegaly otherwise unremarkable no acute process read both by myself and the radiologist. EKG shows sinus rhythm a rate of 80 with inverted T waves V3 through V6 which is basically chronic from her prior EKG. Emergency Department Course and Treatment: Patient was treated with a liter of normal saline his blood pressure is much improved currently at 111/71. Treatment Plan: Due to his hypotension and near syncope with his known cardiomyopathy I have spoken to the hospitalist and she is done in the ER evaluating for admission. Disposition: Admission Impression: Near syncope Acute hypotension History of cardiomyopathy History of CAD with multiple cardiac stents. History of A. fib History of chronic anemia This note was generated with [employer] software. It may contain incorrect words, spelling, and punctuation that were not noted in review of the chart prior to signing ED Disposition - Plan for ED Patient: Chief Complaint: Dizziness Referrals: Care Physician,No Primary [Primary Care Provider] -
--- NOTE | 2017-12-17 02:07 | HP.PCM_ITS ---
Problem List (1) MRSA (methicillin resistant Staphylococcus aureus) infection Status: Acute Comment: Recent discharge 12/14/17 following treatment for acute on chronic systolic CHF exacerbation, acute COPD exacerbation with acute hypoxic respiratory failure and MRSA HCAP PNA. (2) COPD exacerbation Status: Acute Comment: Recent discharge 12/14/17 following treatment for acute on chronic systolic CHF exacerbation, acute COPD exacerbation with acute hypoxic respiratory failure and MRSA HCAP PNA. (3) Iron deficiency anemia Status: Chronic Qualifiers: Iron deficiency anemia type: unspecified iron deficiency Qualified Code(s) : D50.9 - Iron deficiency anemia, unspecified (4) Systolic CHF, chronic Status: Acute Comment: Recent discharge 12/14/17 following treatment for acute on chronic systolic CHF exacerbation, acute COPD exacerbation with acute hypoxic respiratory failure and MRSA HCAP PNA. (5) HCAP (healthcare-associated pneumonia) Status: Acute Comment: Recent discharge 12/14/17 following treatment for acute on chronic systolic CHF exacerbation, acute COPD exacerbation with acute hypoxic respiratory failure and MRSA HCAP PNA. (6) CAD (coronary artery disease) Status: Chronic Qualifiers: Coronary Disease-Associated Artery/Lesion type: unspecified vessel or lesion type [place] vs. transplanted heart: unspecified whether [place] or transplanted heart Associated angina: angina presence unspecified Qualified Code(s): I25.10 - Atherosclerotic heart disease of [place] coronary artery without angina pectoris (7) COPD (chronic obstructive pulmonary disease) Status: Chronic Qualifiers: COPD type: unspecified COPD Qualified Code(s): J44.9 - Chronic obstructive pulmonary disease, unspecified (8) Tobacco abuse Status: Chronic (9) Ischemic cardiomyopathy Status: Chronic (10) Hypotension Status: Acute Qualifiers: Hypotension type: hypotension due to drug Qualified Code(s): I95.2 - Hypotension due to drugs (11) Near syncope Status: Acute History of Present Illness Date of Admission: 12/17/17 Chief Complaint: Near Syncope, Hypotension The patient is a 57 y/o M w/ PMHx: Chronic COPD w/ Chronic Hypoxic Respiratory Failure (3L NC), HTN, HLD, CAD s/p PCI, Ischemic Cardiomyopathy (EF 10%), Chronic Systolic CHF, Tobacco use recently discharged 12/14/17 following treatment for acute hypoxic respiratory failure requiring intubation secondary to acute on chronic CHF exacerbation, acute on chronic COPD exacerbation and MRSA HCAP who now re-presents to the [facility] ED on 12/17/17 with onset the evening prior ~ 30 minutes prior to taking his blood pressure regimen, near syncopal sensation with lightheadedness, dizziness, debility after dinner. In the ED initial BP 75/50, IVF bolus administered per ED and follow-up VS T 98.4, HR 80s , BP 120/87, RR 18, 98% on RA, CBC w/ WBC 12.7, Hgb 9.7, Plts 483 with L shift, BMP not marked appearing LA 1.1, trop 0.08, EKG with SR without acute evidence of ischemia, CXR with chronic changes. Past Medical History Past Medical History (Chronic Problems): Chronic Problems Iron deficiency anemia (Chronic) CAD (coronary artery disease) (Chronic) COPD (chronic obstructive pulmonary disease) (Chronic) Tobacco abuse (Chronic) Medical non-compliance (Chronic) Ischemic cardiomyopathy (Chronic) Allergies No Known Allergies Allergy (Verified 12/16/17 23:10) Home Medications: Ambulatory Orders Medication Instructions Recorded Acetaminophen [Tylenol Tablet] 650 mg PO Q6H PRN PRN #0 tablet 09/26/16 Albuterol Aerosols [Ventolin 2.5 mg INHALATION Q2H PRN PRN #30 09/26/16 Aerosols] vial.neb. Albuterol Sulfate [Ventolin Hfa] 18 gm IH Q4H PRN PRN #1 hfa.aer.ad 09/26/16 Clopidogrel Bisulfate [Plavix] 75 mg PO DAILY #30 tablet 09/26/16 Potassium Chloride [K-Dur] 20 meq PO DAILY #30 tab 12/07/17 Prednisone [Deltasone] 40 mg PO DAILY 10 Days tab 12/07/17 Linezolid [Zyvox] 600 mg PO Q12H #12 tab 12/13/17 Albuterol Sulfate [Proventil Hfa] 6.7 gm IH Q2H PRN PRN #1 hfa.aer.ad 12/14/17 Ascorbic Acid [Vitamin C] 500 mg PO BIDCM #60 tab 12/14/17 Aspirin [Aspirin, Baby] 81 mg PO DAILY@0800 #30 tab.chew 12/14/17 Atorvastatin Calcium [Lipitor] 80 mg PO QHS #30 tab 12/14/17 Carvedilol [Coreg (Beta Fletcher)] 6.25 mg PO BID #60 tab 12/14/17 Ferrous Gluconate 325 mg PO BIDCM #60 tab 12/14/17 Furosemide [Lasix] 40 mg PO BID@1000,1800 #60 tab 12/14/17 Gabapentin [Neurontin] 600 mg PO DAILY #30 tab 12/14/17 Hydrocodone/Acetaminophen [Vicodin 1 tab PO Q4H PRN PRN 7 Days #20 tab 12/14/17 5-300 mg Tablet] Isosorbide Mononitrate [Imdur] 60 mg PO BID #60 tab 12/14/17 Losartan Potassium [Cozaar] 50 mg PO DAILY #30 tab 12/14/17 Nitroglycerin [Nitrostat] 0.4 mg SUBLINGUAL Q5M PRN #1 bottle 12/14/17 Prednisone 40 mg PO DAILY #10 tab 12/14/17 Spironolactone [Aldactone] 25 mg PO DAILY #30 tab 12/14/17 Surgical History: - - PCI x 10-11. Psychiatric History: No pertinent psych hx Lives: Alone Smoking Status: Current every day smoker - ~ 3 cig/day. Tobacco Use: Cigarettes Alcohol: None Drugs: None - *Family History Maternal History Items: Heart Disease Paternal History Items: Heart Disease Review of Systems Constitutional: Reports: Malaise, Weakness, Fatigue. Denies: Chills, Fever, Weight Change HEENT: Denies: Head Aches, Sinus Congestion, Sinus Drainage Cardiovascular: Reports: Heaviness, Syncope. Denies: Chest Pain, Palpitations Respiratory: Reports: Shortness of breath upon exertion. Denies: Cough, Shortness of breath at rest, Sputum production Gastrointestinal: Denies: Abdominal Pain, Nausea, Vomiting Genitourinary: Denies: Dysuria Musculoskeletal: Denies: Joint Pain, Joint Tenderness Skin: Denies: Rash, Wounds Neurological: Denies: Numbness, Tingling, Focal weakness Psychiatric: Denies: Anxiety, Depression, Homicidal Ideations, Suicidal Ideations Hematologic/ Lymphatic: Reports: Anemia. Denies: Easy Bruising, Easy Bleeding VTE Information - Inpt Only VTE Present on Admission: No VTE Mechan Device Prophylaxis: SCD's VTE Pharm Prophylaxis ordered?: Yes Patient Problems: Active and Suspected Problems Hypotension (Acute) Near syncope (Acute) Subjective: Seated upright in the ED bed, fatigued appearing, notes he is feeling better since IVFs. Objective: Physical Examination: General: awake, alert, oriented x 3 and cooperative, seated upright in the ED bed in no apparent distress. Skin: normal color, turgor, no icterus, cyanosis. HEENT: AT/NC, EOMI, PERRLA, dry MM, no carotid bruits or JVD noted. Lungs: Diminished BS, > BL bases, moderate effort, no wheezing. Heart: Regular rate and rhythm; no gallop, rub audible. Abdomen: soft, NTTP, ND, normal BS, no HSM. Extremities: no cyanosis, clubbing, or edema. Neurological: patient awake, alert, oriented x 3; cognitive function intact; pupils equally reactive to light and accomodation; cranial nerves II-XII grossly normal, moving all 4 extremities, no focal deficits, strength mildly globally decreased secondary to acute presentation. Psychiatric: affect appears normal, no acute evidence of depressive or anxiety feelings. - Physical Exam Vital Signs Temp Pulse Resp BP Pulse Ox 98.4 F 90 18 101/54 L 100 12/16/17 23:07 12/17/17 01:46 12/17/17 01:46 12/17/17 01:46 12/17/17 01:46 Oxygen Flow Rate (L/min) 3 Oxygen Delivery Method Room Air Weight: 160 lb 0.889 oz Body Mass Index (BMI) 24.3 Laboratory Tests Past 24 Hrs 12/16/17 12/16/17 12/17/17 23:10 23:10 00:08 WBC 12.7 H RBC 4.36 L Hgb 9.7 L Hct 32.1 L MCV 73.6 L MCH 22.2 L MCHC 30.2 L RDW 20.1 H RDW Differential 52.4 H Plt Count 483 H MPV 8.5 Immature Gran % (Auto) OPHTHALMIC MEDICAL TECHNICIAN Neut % (Auto) OPHTHALMIC MEDICAL TECHNICIAN Lymph % (Auto) OPHTHALMIC MEDICAL TECHNICIAN [place] % (Auto) OPHTHALMIC MEDICAL TECHNICIAN Eos % (Auto) OPHTHALMIC MEDICAL TECHNICIAN Baso % (Auto) OPHTHALMIC MEDICAL TECHNICIAN Absolute Neuts (auto) 9.1 H Absolute Lymphs (auto) 2.03 Total Counted 100 Neutrophils % (Manual) 72 H Lymphocytes % (Manual) 16 L Monocytes % (Manual) 7 Eosinophils % (Manual) 2 Metamyelocytes % 3 H Diff Path Review May foll Platelet Estimate ADEQUATE Hypochromasia 3+ Microcytosis 2+ Target Cells 2+ Ovalocytes 1+ Sodium 137 Potassium 4.5 Chloride 99 Carbon Dioxide 31.0 Anion Gap 7 BUN 31 H Creatinine 0.89 Estim Creat Clear Calc 86.46 Est GFR (MDRD) Af Amer 112 Est GFR (MDRD) Non-Af 93 BUN/Creatinine Ratio 34.8 H Glucose 93 Lactic Acid 1.1 Calcium 8.0 L Troponin I 0.08 H Assessment/Plan Active and Suspected Problems Hypotension (Acute) Near syncope (Acute) The patient is a 57 y/o M w/ PMHx: Chronic COPD w/ Chronic Hypoxic Respiratory Failure (3L NC), HTN, HLD, CAD s/p PCI, Ischemic Cardiomyopathy (EF 10%), Chronic Systolic CHF, Tobacco use recently discharged 12/14/17 following treatment for acute hypoxic respiratory failure requiring intubation secondary to acute on chronic CHF exacerbation, acute on chronic COPD exacerbation and MRSA HCAP who now re-presents to the [facility] ED on 12/17/17 with onset the evening prior ~ 30 minutes prior to taking his blood pressure regimen, near syncopal sensation with lightheadedness, dizziness, debility after dinner. (1) Near Syncopal Event w/ Hypotension: Suspected secondary to medications, occurred ~ 30 minutes following PM medication HTN regimen. EKG in ED w/ sinus rhythm without evidence of acute ischemia, CXR w/ no acute cardiopulmonary findings, initial trop normal. Will admit to PCU, place on a monitored bed to assure no acute myocardial infarction with serial cardiac enzymes and EKGs. Will maintain on fall precautions, obtain admission orthostatic and AM orthostatic VS, continue to gently hydrate, hold BP regimen with addition back as able. (2) CAD w/ Indeterminant Cardiac Enzymes (Appears Chronic): s/p notable PCI, 10- 11 per patient, following w/ Dr. Mak, maintain on asa, plavix, statin, BB with hold parameters. Will maintain on telemetry, cycle cardiac enzymes. (3) Recent MRSA HCAP: Maintain on contact precautions, continue recent discharge regimen linezolid, continue ATC duonebs, PRN albuterol, prednisone taper HOB, IS parameters. (4) Chronic COPD w/ Chronic Hypoxic Respiratory Failure w/ recent Exacerbation: Will maintain on home oxygen supplementation, continue ATC duonebs, PRN albuterol, prednisone taper HOB, IS parameters. (5) Chronic Systolic CHF, Ischemic Cardiomyopathy w/ Recent Exacerbation: CXR and examination without concern for decompensation, maintain on asa, plavix, statin, BB with hold parameters, given hypotension, holding lasix, isosorbide, losartan, spironolactone, add back regimen as able. (6) Hypertension: As noted, hypotensive upon presentation, improving, will hold regimen upon admission aside BB given NSVT history with hold parameters, add back regimen as able in AM with adjustments. (7) Hyperlipidemia: Maintain on home statin regimen. (8) Tobacco Abuse: Encouraged cessation, inpatient consultation per RT, NR if desired. (9) DVT Prophylaxis: SCDs, lovenox. Code Visit OBSV E&M: 83012 Initial observation care L3
[2017-12-17] MEDS: 0.9% Normal Saline 1,000 ML 75 ML IV ×2 (04:49→21:29)
[2017-12-17] MEDS: 0.9% Normal Saline 1,000 ML 999 ML IV (04:50)
[2017-12-17] MEDS: 0.9% NaCl Peripheral Flush Adult/Peds IV (04:50)
[2017-12-17 05:05] LABS: Hematocrit 32.3 % (40-54); Hemoglobin 9.7 g/dl (13.0-16.5); Mean Corpuscular Hgb 22.1 pg (27.0-32.0); Mean Corpuscular Volume 73.6 fL (80-94); Mean Platelet Vol. 8.3 fl (6.2-12.0); Platelet Count 493 K/mm3 (150-450); RBC Distribution Width CV 20.4 % (11.6-14.6); RBC Distribution Width SD 52.6 fl (35.1-43.9); Red Blood Count 4.39 M/mm3 (4.6-6.2); Scan Indicated on CBC? Y/N YES- FLAGS NOTED; White Blood Count 10.9 K/mm3 (4.4-11.0)
[2017-12-17 05:12] LABS: Anion Gap 8 (5-15); BUN 29 mg/dL (7-18); BUN/Creat Ratio 36.8 RATIO (10-20); Calcium,Total 8.1 mg/dL (8.5-10.1); Chloride 100 mmol/L (98-107); Creatinine, Serum 0.79 mg/dL (0.70-1.30); EST Glomerular Filtration Rate 107 mL/min (>60); Est Glom Filt Rate - Afr Amer 130 mL/min (>60); Estimated Creatinine Clearance 97.41 ml/min; Glucose 78 mg/dL (74-106); Potassium 4.5 mmol/L (3.5-5.1); Sodium Level 138 mmol/L (136-145)
[2017-12-17 05:28] LABS: Differential Comment SCANNED
[2017-12-17] MEDS: Ipratropium/Albuterol Sulfate 3 ML AMPUL.NEB INHALATION ×3 (06:46→19:42)
[2017-12-17] MEDS: Linezolid 600 MG Tablet PO ×2 (09:31→21:30)
[2017-12-17] MEDS: Aspirin 81 MG TAB.CHEW PO (09:32)
[2017-12-17] MEDS: Gabapentin 600 MG Tablet PO (09:32)
[2017-12-17] MEDS: Ferrous Gluconate 325 MG Tablet PO ×2 (09:33→17:33)
[2017-12-17] MEDS: Carvedilol 6.25 MG Tablet PO ×2 (09:35→21:29)
[2017-12-17] MEDS: Ascorbic Acid 500 MG Tablet PO ×2 (09:35→17:33)
[2017-12-17] MEDS: Clopidogrel Bisulfate 75 MG Tablet PO (09:36)
[2017-12-17] MEDS: Famotidine 20 MG Tablet PO ×2 (09:36→21:30)
[2017-12-17] MEDS: Enoxaparin 40 MG/0.4 ML Syringe SC (09:36)
[2017-12-17 12:50] LABS: Pathologist Review Reviewed
--- NOTE | 2017-12-17 14:02 | CASEMGMT ---
SW spoke w/pt, as pt is self pay. Pt familiar to this SW from admission last week. Pt plans to return home to his brother Angel's home at discharge. Pt wants to leave today, SW and RN encouraged pt to stay until tomorrow to get his medication adjusted. SW also asked pt about anxiety and depression. Pt states he does have anxiety, but does not think counseling will help. No further social service needs at this time, SW available should any needs arise. FRANCIA Vasquez, MOLD MAKER HELPER
--- NOTE | 2017-12-17 14:17 | CASEMGMT ---
Pt called SW and asked about pt's Medicaid. SW explained Medicaid is not yet active, SW encouraged pt to call Medicaid, pt states he has the number to call. SW also let pt know that as per financial, he did qualify for hospital assist for the last hospitalization. FRANCIA Vasquez, CONVERSION WORKER
[2017-12-17] MEDS: HYDROcodone Bitartrate/Apap 5/325 Tablet PO (21:31)
[2017-12-17] MEDS: Atorvastatin Calcium 80 MG Tablet PO (21:32)
[2017-12-18] VITALS (8 sets, daily range): BP systolic 125–146; BP diastolic 63–87; PULSE 95–100; RESP 16–22; TEMP 36.8; O2SAT 97–100
[2017-12-18] MEDS: HYDROcodone Bitartrate/Apap 5/325 Tablet PO (03:23)
[2017-12-18] MEDS: Losartan Potassium 25 MG Tablet PO (06:16)
[2017-12-18] MEDS: Furosemide 40 MG Tablet PO (06:16)
[2017-12-18] MEDS: Ipratropium/Albuterol Sulfate 3 ML AMPUL.NEB INHALATION (07:14)
[2017-12-18] MEDS: Aspirin 81 MG TAB.CHEW PO (07:54)
[2017-12-18] MEDS: Gabapentin 600 MG Tablet PO (07:55)
[2017-12-18] MEDS: Ferrous Gluconate 325 MG Tablet PO (07:55)
[2017-12-18] MEDS: Ascorbic Acid 500 MG Tablet PO (07:56)
[2017-12-18] MEDS: Carvedilol 6.25 MG Tablet PO (07:56)
[2017-12-18] MEDS: Famotidine 20 MG Tablet PO (07:57)
[2017-12-18] MEDS: Linezolid 600 MG Tablet PO (07:58)
[2017-12-18] MEDS: Clopidogrel Bisulfate 75 MG Tablet PO (07:58)
--- NOTE | 2017-12-18 09:06 | PCM.DC ---
- Discharge Diagnoses Current Active Problems: Current Active and Chronic Problems Hypotension (Acute) Near syncope (Acute) You will use the following diet at home:: Cardiac Your food should be the consistency of: Regular Discharge Activity: Return to Normal Activity Weight Bearing Status: Weight bearing as tolerated Call your doctor if you observe: Fever of 101 or Higher, Shortness of breath, Dizziness, Fainting spells, Chest pain, Increased palpitations (irregular heartbeat), Uncontrolled pain Allergies/Adverse Reactions: Allergies No Known Allergies Allergy (Verified 12/16/17 23:10) Medications to take at Discharge Acetaminophen [Tylenol Tablet] 650 mg PO Q6H PRN PRN #0 tablet 09/26/16 Albuterol Aerosols [Ventolin Aerosols] 2.5 mg INHALATION Q2H PRN PRN #30 vial.neb. 09/26/16 Albuterol Sulfate [Ventolin Hfa] 18 gm IH Q4H PRN PRN #1 hfa.aer.ad 09/26/16 Clopidogrel Bisulfate [Plavix] 75 mg PO DAILY #30 tablet 09/26/16 Potassium Chloride [K-Dur] 20 meq PO DAILY #30 tab 12/07/17 Linezolid [Zyvox] 600 mg PO Q12H #12 tab 12/13/17 Albuterol Sulfate [Proventil Hfa] 6.7 gm IH Q2H PRN PRN #1 hfa.aer.ad 12/14/17 Ascorbic Acid [Vitamin C] 500 mg PO BIDCM #60 tab 12/14/17 Aspirin [Aspirin, Baby] 81 mg PO DAILY@0800 #30 tab.chew 12/14/17 Atorvastatin Calcium [Lipitor] 80 mg PO QHS #30 tab 12/14/17 Carvedilol [Coreg (Beta Fletcher)] 6.25 mg PO BID #60 tab 12/14/17 Ferrous Gluconate 325 mg PO BIDCM #60 tab 12/14/17 Gabapentin [Neurontin] 600 mg PO DAILY #30 tab 12/14/17 Hydrocodone/Acetaminophen [Vicodin 5-300 mg Tablet] 1 tab PO Q4H PRN PRN 7 Days #20 tab 12/14/17 Nitroglycerin [Nitrostat] 0.4 mg SUBLINGUAL Q5M PRN #1 bottle 12/14/17 Prednisone 40 mg PO DAILY #10 tab 12/14/17 Furosemide [Lasix] 40 mg PO DAILY #30 tab 12/18/17 Isosorbide Mononitrate [Imdur] 30 mg PO DAILY #30 tab 12/18/17 Losartan Potassium [Cozaar] 25 mg PO DAILY #30 tab 12/18/17 Prednisone [Deltasone] 40 mg PO DAILY 10 Days tab 12/18/17 The following prescriptions were given: Furosemide [Lasix] 40 mg PO DAILY #30 tab Isosorbide Mononitrate [Imdur] 30 mg PO DAILY #30 tab Losartan Potassium [Cozaar] 25 mg PO DAILY #30 tab Primary Care Physician: Care Physician,No Primary [Primary Care Provider] - Please follow up with your Primary Care Physician in: 1 week.
--- NOTE | 2017-12-18 09:58 | NURSING ---
pt interupts this RN w/ I understand, my [id number] will have me all straight. any time medication education is attempted. This RN careful to explain which meds are to be given later today, and which ones to start tomorrow 12/19. also disc checking strength of meds he has at home as some will need to be cut in half. He cont to indicate understanding the entire time this RN is talking.
--- NOTE | 2017-12-18 15:29 | DS.PCM_ITS ---
Discharge Date and Diagnosis Date of Admission: 12/17/17 Date of Discharge: 12/18/17 - Primary Discharge Diagnosis #1 near syncopal episode. #2 hypertension, attributed to multiple antihypertensive medications that patient was started on recently. #3 indeterminate troponin, chronic. #4 recent history of MRSA healthcare associated pneumonia, continued on linezolid. - Secondary Discharge Diagnosis Chronic Problems Iron deficiency anemia (Chronic) CAD (coronary artery disease) (Chronic) COPD (chronic obstructive pulmonary disease) (Chronic) Tobacco abuse (Chronic) Medical non-compliance (Chronic) Ischemic cardiomyopathy (Chronic) Hospital Course and Treatment Imaging Results: Clinical Impression(s) from Imaging Studies Chest X-Ray 12/16/17 23:47 IMPRESSION: COPD. Mild cardiomegaly. No evidence for acute cardiopulmonary pathology. Electronically Signed: Trey Roman MD at 0:21 EDT , Service support , Operations: None Procedures: None Summary of Care Provided: Patient seen and examined on the day of discharge and appeared to be stable to be discharged home. He denies any more symptoms, no more dizziness or lightheadedness. Denied chest pain or shortness of breath. This morning, I received 1 dose of Lasix 40 mg and losartan 25 mg. Repeat orthostatic vitals this morning was unremarkable and patient was asymptomatic. - Physical Exam General: Alert, Oriented x3, Cooperative, No apparent distress. HEENT: Atraumatic, PERRLA, EOMI. Neck: Supple, No JVD, Negative Carotid Bruits, Trachea Midline, Thyroid Normal. Lungs: Decreased breath sounds bilateral, No rhonchi, No wheeze, No rales. Cardiovascular: Regular rate, Regular Rhythm, Normal S1, Normal S2, PMI Normal. Abdomen: Bowel Sounds Present, Soft, Non Tender, Non-Distended, No Hepato- splenomegaly. Extremities: No clubbing, No cyanosis, No edema Skin: No rashes, No breakdown Neurological: Neuro grossly intact Vital Signs are stable. Hospital course: The patient is a 57 year old M admitted because of near syncopal episode and hypotension. Patient was discharged from the hospital 2 days before this admission and he was admitted for acute respiratory failure that required intubation and mechanical ventilation which was secondary to acute and chronic CHF, COPD exacerbation and MRSA healthcare associated pneumonia. He was discharged on increased dose of Lasix, increased dose of losartan, discharged on isosorbide mononitrate 60 mg p.o. twice daily and also started on Aldactone. The patient came back 2 days after discharge because of near syncopal episode and hypotension. He was treated with IV fluids and those medications help. His blood pressure did improve. He was found to have indeterminate troponin which was same as the previous admission without any changes. Serial cardiac enzymes done and his troponin came down to normal. His EKG showed no acute ST elevation. On the day of discharge, Lasix and losartan was reintroduced and patient's blood pressure remained stable. His repeat orthostatic vitals today were normal. Patient discharged home in a stable medical condition, dose of Lasix decreased down from 40 mg p.o. twice daily down to 40 mg p.o. daily, dose of losartan decreased down from 50 mg p.o. daily down to 25 mg p.o. daily, isosorbide mononitrate was changed from 60 mg p.o. twice daily down to 30 mg p.o. in the evening, Aldactone discontinued, continued on linezolid for recent history of MRSA healthcare associated pneumonia, continued on prednisone that was discharged on during the last admission to complete 10 days of treatment, continued on other home medications without any changes, recommended to check blood pressure at least twice daily, follow-up with PCP in 1 week. Discharge Activity: Return to Normal Activity Weight Bearing Status: Weight bearing as tolerated Call your doctor if you observe: Fever of 101 or Higher, Shortness of breath, Dizziness, Fainting spells, Chest pain, Increased palpitations (irregular heartbeat), Uncontrolled pain Home Medications: Medications to take at Discharge Acetaminophen [Tylenol Tablet] 650 mg PO Q6H PRN PRN #0 tablet 09/26/16 Albuterol Aerosols [Ventolin Aerosols] 2.5 mg INHALATION Q2H PRN PRN #30 vial.neb. 09/26/16 Albuterol Sulfate [Ventolin Hfa] 18 gm IH Q4H PRN PRN #1 hfa.aer.ad 09/26/16 Clopidogrel Bisulfate [Plavix] 75 mg PO DAILY #30 tablet 09/26/16 Potassium Chloride [K-Dur] 20 meq PO DAILY #30 tab 12/07/17 Linezolid [Zyvox] 600 mg PO Q12H #12 tab 12/13/17 Albuterol Sulfate [Proventil Hfa] 6.7 gm IH Q2H PRN PRN #1 hfa.aer.ad 12/14/17 Ascorbic Acid [Vitamin C] 500 mg PO BIDCM #60 tab 12/14/17 Aspirin [Aspirin, Baby] 81 mg PO DAILY@0800 #30 tab.chew 12/14/17 Atorvastatin Calcium [Lipitor] 80 mg PO QHS #30 tab 12/14/17 Carvedilol [Coreg (Beta Fletcher)] 6.25 mg PO BID #60 tab 12/14/17 Ferrous Gluconate 325 mg PO BIDCM #60 tab 12/14/17 Gabapentin [Neurontin] 600 mg PO DAILY #30 tab 12/14/17 Hydrocodone/Acetaminophen [Vicodin 5-300 mg Tablet] 1 tab PO Q4H PRN PRN 7 Days #20 tab 12/14/17 Nitroglycerin [Nitrostat] 0.4 mg SUBLINGUAL Q5M PRN #1 bottle 12/14/17 Prednisone 40 mg PO DAILY #10 tab 12/14/17 Furosemide [Lasix] 40 mg PO DAILY #30 tab 12/18/17 Isosorbide Mononitrate [Imdur] 30 mg PO DAILY #30 tab 12/18/17 Losartan Potassium [Cozaar] 25 mg PO DAILY #30 tab 12/18/17 Prednisone [Deltasone] 40 mg PO DAILY 10 Days tab 12/18/17 Following Prescrptions Were Given to Patient: Furosemide [Lasix] 40 mg PO DAILY #30 tab Isosorbide Mononitrate [Imdur] 30 mg PO DAILY #30 tab Losartan Potassium [Cozaar] 25 mg PO DAILY #30 tab Primary Care Physician: Care Physician,No Primary [Primary Care Provider] - Please follow up with your Primary Care Physician in: 1 week. Disposition: Home Minutes spent on discharge:: 26 Patient Condition:: Stable Medical Necessity - Tobacco Use Smoking Status: Current every day smoker Tobacco Use: Cigarettes Meaningful Use Info Meaningful Use Diagnoses (Choose all that apply): None applicable Code Visit OBSV E&M: 35093 Observation care discharge
== END 2017-12-18 11:25 | disposition home or self-care (01) ==
LOC: ED 12-17 00:02 → ICU 12-17 02:49
PROVIDERS: Admitting Provider Family Medicine; Emergency Provider Emergency Medicine; Visit Provider Hospitalist
DX: R55 Syncope and collapse (principal); I25.10 Atherosclerotic heart disease of native coronary artery without angina pectoris; J44.9 Chronic obstructive pulmonary disease, unspecified; I11.0 Hypertensive heart disease with heart failure; I50.23 Acute on chronic systolic (congestive) heart failure; D50.9 Iron deficiency anemia, unspecified; I25.5 Ischemic cardiomyopathy; F17.210 Nicotine dependence, cigarettes, uncomplicated; J96.21 Acute and chronic respiratory failure with hypoxia; E78.5 Hyperlipidemia, unspecified; Z79.02 Long term (current) use of antithrombotics/antiplatelets; Z86.14 Personal history of Methicillin resistant Staphylococcus aureus infection; Z87.01 Personal history of pneumonia (recurrent); Z79.899 Other long term (current) drug therapy; Z79.82 Long term (current) use of aspirin; Z79.52 Long term (current) use of systemic steroids; Z91.19 Patient's noncompliance with other medical treatment and regimen; Z99.81 Dependence on supplemental oxygen; Z95.5 Presence of coronary angioplasty implant and graft
CPT/HCPCS: 71045; 80048; 83605; 83735; 84484; 85025; 85027; 93005; 94640; 96360; 96361; 96372; 99218; 99285; J7030; A4216; G0378

== ENCOUNTER → 2017-12-25 05:59 | Outpatient (CLI) | payer MEDICAID, SELFPAY ==
--- NOTE | 2017-12-25 16:29 | STRESSREP_ITS ---
Stress Test Report Pharmacologic myocardial perfusion stress test. 57-year-old man with a history of cardiomyopathy and coronary artery disease. Stress protocol: Resting EKG demonstrates sinus tachycardia with a rate of [address] -T wave changes noted. Resting blood pressure is 132/84 mmHg. 0.4 mg regadenoson was infused per usual protocol followed by Intravenous and flush injection. Continuous EKG monitoring was performed. Patient maintained sinus rhythm throughout the recording. The maximum heart rate attained was 190 bpm was 67% maximum predicted heart rate the maximum workload attained was 1 metabolic equivalent. At rest there were no ST or T-wave changes noted suggest ischemia nonspecific ST changes were noted. At peak infusion nonspecific ST-T wave changes were present. Resting blood pressure is 132/84 final blood pressure of 138/84. Myocardial perfusion protocol. 11.2 mCi of technetium 99m sestamibi was injected at rest. 0.4 mg regadenoson was infused per usual protocol. Peak infusion 32.5 mCi of technetium 99m sestamibi was injected stress images were obtained stress and rest images were reconstructed and compared in the short axis vertical long and horizontal long axis. Gated images were also obtained. Perfusion SPECT analysis: Review of the stress images demonstrated dilated cardiac silhouette size. There is a medium-sized defect noted involving the mid anterior wall to distal anterior wall and apex. There is also a small perfusion defect noted in the mid septum. The lateral wall and inferior wall appeared to be well perfused. This appears to be present on the stress and resting images to a similar extent. The above is suggestive of a previous mid to distal anterior wall infarct and apical infarct and mid septal infarct. No ischemia is noted. Gated SPECT analysis. The left ventricle is dilated the gated ejection fraction is 24% with segmental wall motion abnormalities involving the anterior apex. Conclusion: Cardiomyopathy. No ischemia present. Previous mid to distal anterior infarct Apical infarct Small septal infarct
== END ==
PROVIDERS: Visit Provider Internal Medicine Cardiovascular Disease
DX: I25.10 Atherosclerotic heart disease of native coronary artery without angina pectoris (principal); I25.5 Ischemic cardiomyopathy
CPT/HCPCS: 78452; 93017; A9500; A4216; J2785

== ENCOUNTER → 2018-01-04 14:36 | Outpatient (CLI) | payer MEDICAID, SELFPAY ==
[2018-01-04 14:47] LABS: Bacteria 0 SEEN /hpf (None Seen); Mucous, Urine 0 SEEN /hpf (<or=2+); Red Blood Cells-Urine 0 SEEN /hpf (0-5); Squamous Epithelial Cells - UA 0 SEEN /hpf (0-5); White Blood Cells 0 SEEN /hpf (0-5)
[2018-01-04 16:02] LABS: Color, Urine Yellow (Yellow); Glucose, Dipstick Normal (Normal); Ketone-Dipstick Negative (Negative); Leukocyte Esterase-Dipstick Negative /ul (Negative); Nitrite-Dipstick Negative (Negative); Occult Blood-Urine Negative /ul (Negative); Protein-Dipstick Negative (Negative); Urine Bilirubin Dipstick Negative (Negative); Urine Clarity Sl. Cloudy (Clear); Urine Urobilinogen Normal (Normal)
[2018-01-04 16:17] LABS: International Normalized Ratio 1.2; Prothrombin Time (Protime)PT. 15.2 SECONDS (11.7-14.9)
[2018-01-04 16:19] LABS: Amorphous Sediment 1+
[2018-01-04 16:27] LABS: Hematocrit 31.3 % (40-54); Hemoglobin 9.4 g/dl (13.0-16.5); Mean Corpuscular Hgb 22.8 pg (27.0-32.0); Mean Corpuscular Volume 75.8 fL (80-94); Mean Platelet Vol. 8.4 fl (6.2-12.0); Platelet Count 392 K/mm3 (150-450); RBC Distribution Width CV 20.9 % (11.6-14.6); RBC Distribution Width SD 54.9 fl (35.1-43.9); Red Blood Count 4.13 M/mm3 (4.6-6.2); Scan Indicated on CBC? Y/N YES- FLAGS NOTED
[2018-01-04 16:40] LABS: Anion Gap 8 (5-15); BUN 24 mg/dL (7-18); BUN/Creat Ratio 34.1 RATIO (10-20); Calcium,Total 8.7 mg/dL (8.5-10.1); Chloride 101 mmol/L (98-107); EST Glomerular Filtration Rate 122 mL/min (>60); Est Glom Filt Rate - Afr Amer 147 mL/min (>60); Glucose 73 mg/dL (74-106); Potassium 4.6 mmol/L (3.5-5.1); Sodium Level 138 mmol/L (136-145)
[2018-01-04 16:48] LABS: White Blood Count 8.2 K/mm3 (4.4-11.0)
== END ==
PROVIDERS: Visit Provider Internal Medicine Cardiovascular Disease
DX: I25.5 Ischemic cardiomyopathy (principal); I47.2 Ventricular tachycardia; R55 Syncope and collapse
CPT/HCPCS: 36415; 80048; 81001; 85027; 85610

== ENCOUNTER 2018-01-10 10:28 | Day surgery (SDC) | payer MEDICAID, SELFPAY ==
[2018-01-09 13:10] VITALS: BMI 23.8
[2018-01-10] VITALS (13 sets, daily range): BP systolic 120–141; BP diastolic 71–87; PULSE 86–105; RESP 16–18; TEMP 36.8–37.1; O2SAT 94–98
--- NOTE | 2018-01-10 13:28 | OP.PCM_ITS ---
Operative Report Date of Procedure: 01/10/18 Preoperative diagnosis implantation of [ Primary prevention ICD for nonischemic Cardiomyopathy with EF 20%] Postoperative diagnosis same as above After informed consent and IV antibiotics the patient was brought to the [facility] catheterization laboratory. The left side of the chest was prepped and draped in the usual sterile manner. The patient was sedated with intermittent boluses of IV Versed fentanyl and propofol as well as subcutaneous 1% lidocaine. An incision was made inferior to the clavicle to accommodate the size of the hardware device. The pocket was created using blunt and Bovie dissection. Hemostasis was obtained. Using the Seldinger technique the axillary vein was cannulated once and a guidewire was advanced under fluoroscopic guidance. Over the guidewire a sheath was advanced. Through this sheath, the electrode was positioned under fluoroscopic guidance into the right ventricle and was actively fixated. Once actively fixated, the lead was tested to check for proper sensing, capture threshold, impedance and to exclude diaphragmatic stimulation. Once the lead was implanted and all electrical parameters were confirmed to be functioning normally with appropriate values, the leads was then sutured to the pectoralis muscle with 2-0 silk on the Silastic collar ?2. The sponge and needle count were correct. Hemostasis was obtained. Antibiotic solution was used to flush the pocket. The new device was brought to the field. The lead was placed in the appropriate position of the header of the device and were secured by the setscrews and confirmed by the tug test. The device and the leads were then placed in the pocket. Pocket was closed with a deep layer of running 2-0 Vicryl, superficial layer of running 4-0 Vicryl and skin with Steri- Strips that were covered with a rolled 4 x 4's and Tegaderm. The patient left the lab with the device programmed to chronic parameters. There were no complications. The implanted device is a VVI ICD Alo7 Lead and device serial and model numbers are available in the chart documents provided by the device company customer response representative procedure summary.
[2018-01-10] MEDS: Cefazolin 2 GM in 0.9% Normal Saline 100 ML IV (13:57)
[2018-01-10] MEDS: Acetaminophen 325 MG Tablet PO ×2 (15:19→23:48)
[2018-01-10] MEDS: Acetaminophen/Codeine #3 Tablet 1 TABLET PO (19:37)
[2018-01-10] MEDS: Gabapentin 600 MG Tablet PO (21:29)
[2018-01-10] MEDS: Zolpidem Tartrate 5 MG Tablet PO (21:29)
[2018-01-11 03:45] VITALS: BP 157/97; PULSE 95; RESP 16; TEMP 36.8; O2SAT 98
[2018-01-11 04:09] VITALS: PULSE 86
--- NOTE | 2018-01-11 05:55 | RAD_ITS ---
STUDY: X-RAY CHEST REASON FOR EXAM: Male, 57 years old. Pacemaker insertion. TECHNIQUE: AP and lateral views of the chest. COMPARISON: Comparison is made with prior study dated December 17, 2017. FINDINGS: A left-sided unipolar pacemaker is seen. The tip is in the right ventricle. Mild elevation of the right hemidiaphragm. Increased linear markings at the lung bases slightly more pronounced on the right side suggests above. Bibasilar atelectasis. There is no demonstrated pleural abnormality. There is mild cardiac enlargement. Normal mediastinum and alberto. Normal visualized pulmonary arteries. There is atherosclerotic calcification of the aortic arch with tortuosity. Normal visualized thoracic spine. Normal visualized ribs, clavicles, and shoulders. There is no demonstrated abnormality of the visualized soft tissue structures of the upper abdomen. RAD/Chest PA and Lateral IMPRESSION: Status post left unipolar pacemaker insertion. Findings suggest a mild linear atelectasis at the lung bases. Electronically Signed: Darrick Coreas MD at 8:15 EDT Tel [phone], Service support ,
--- NOTE | 2018-01-11 06:00 | RAD_ITS ---
STUDY: X-RAY CHEST REASON FOR EXAM: Male, 57 years old. Pacemaker placement. TECHNIQUE: Single PA expiration view of the chest. COMPARISON: Comparison is made with prior examination done earlier today. FINDINGS: EKG lead projects are seen. Increased markings at the lung bases worse on the right side suggestive bibasilar atelectasis. There is no evidence of pneumothorax. The patient is status post left sided unipolar pacemaker placement. RAD/Chest 1 View IMPRESSION: No enhancing pneumothorax following placement of the left unipolar pacemaker. Electronically Signed: Darrick Coreas MD at 10:58 EDT Tel [phone], Service support ,
[2018-01-11] MEDS: Acetaminophen/Codeine #3 Tablet 1 TABLET PO (06:15)
[2018-01-11 06:54] VITALS: PULSE 91
[2018-01-11 07:02] LABS: Anion Gap 8 (5-15); BUN 18 mg/dL (7-18); BUN/Creat Ratio 28.6 RATIO (10-20); Calcium,Total 8.4 mg/dL (8.5-10.1); Chloride 106 mmol/L (98-107); Creatinine, Serum 0.63 mg/dL (0.70-1.30); EST Glomerular Filtration Rate 139 mL/min (>60); Est Glom Filt Rate - Afr Amer 168 mL/min (>60); Estimated Creatinine Clearance 122.14 ml/min; Glucose 93 mg/dL (74-106); Potassium 4.3 mmol/L (3.5-5.1); Sodium Level 140 mmol/L (136-145)
[2018-01-11 08:48] VITALS: BP 133/81; PULSE 94; RESP 16; TEMP 36.7; O2SAT 95
[2018-01-11 11:03] VITALS: PULSE 95
--- NOTE | 2018-01-11 11:24 | PCM.PACRNU ---
Pacer Nurse Hospital Visit Notes: Single Chamber ICD Evaluation: 1st day post ICD implant check completed at bedside PCU #[id number]. Interrogation shows no VT/VF episodes since implant. Left pectoral pocket/incision DSD intact w/o drainage or hematoma noted. Presenting rhythm shows NSR @ 97 bpm. 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 Battery longevity approx >8 yrs. Lead fcaajkmay=573 Ohms, R waves=21.2mV, vent. threshold=0.4V/0.4ms. No parameter changes made. Counters cleared. Wound care and left arm restriction instructions given to pt. Wound check appt scheduled for on 01/18/18 @ 2pm. Madai Vee RN - Pacer Check Procedure Procedures: 89834 ICD Eval Single
--- NOTE | 2018-01-11 11:50 | PN.CARD_ITS ---
Subjectve: Patient seen and examined, doing very well, no 24 hour events. Telemetry shows normal sinus rhythm with a 4 beat run of wide-complex tachycardia, self terminating. Chest x-ray shows no evidence of pneumothorax on the left side. Wound is clean/dry/intact, and interrogated by pacer nurse and operating properly. Objective: Vital Signs Temp Pulse Resp BP Pulse Ox 98.1 F 94 16 133/81 H 95 01/11/18 08:48 01/11/18 08:48 01/11/18 08:48 01/11/18 08:48 01/11/18 08:48 Oxygen Delivery Method Room Air Weight: 157 lb Body Mass Index (BMI) 23.8 Intake and Output for Last 24 Hours 01/09/18 01/10/18 01/11/18 23:59 23:59 23:59 Intake Total 360 / 360 360 / 360 Output Total 200 / 200 1875 / 1875 Balance 160 / 160 -1515 / -1515 General: Awake, Alert, Oriented x 3 HEENT: PERRL, EOMI, Sclera Non Icteric Neck: Supple, Good ROM, No Lymph Node Enlargement Lungs: Clear to auscultation Cardiovascular: Regular Rhythm, Normal S1, Normal S2, No Murmurs, No Rubs, No Gallops 01/11/18 06:30: Sodium 140, Potassium 4.3, Chloride 106, Carbon Dioxide 26.0, Anion Gap 8, BUN 18, Creatinine 0.63 L, Est GFR (MDRD) Af Amer 168, Est GFR ( MDRD) Non-Af 139, BUN/Creatinine Ratio 28.6 H, Glucose 93, Calcium 8.4 L Rhythm: EKG: ECHO: Stress Test: Cardiac Cath: PCI: CT Surgery: Holter monitor: EPS: PPM: CXR: Chest CT Scan: Medical Necessity - Tobacco Use Smoking Status: Current every day smoker Assessment/Plan 1. Non-ischemic cardiomyopathy: The patient is status post AICD therapy, for severe LV dysfunction and primary prophylaxis. Patient is doing very well this morning, lungs are clear bilaterally, chest x-ray is negative for pneumothorax, and wound is clean/dry/intact. Patient's 4 beat run of wide-complex tachycardia may be a result of the new implant, and is nonsustained. At this point I would recommend discharge the patient to home and to follow-up in our office as arranged. He will return to his usual medications. He will follow-up with me as scheduled. 2. Patient may be discharged home. Code Visit Inpatient E&M: 60330 Subs Hosp L2
[2018-01-11 12:10] VITALS: BP 141/75; PULSE 98; RESP 24; TEMP 36.7; O2SAT 97
--- NOTE | 2018-01-11 18:12 | NURSING ---
all patient care, medication administration, & charting by David Zuñiga, Student Nurse, done under the supervision of this RN.
== END 2018-01-11 13:24 | disposition home or self-care (01) ==
LOC: CLSP 10:32 → PCU 13:48
PROVIDERS: Internal Medicine Cardiovascular Disease; Visit Provider Internal Medicine Cardiovascular Disease
DX: I25.5 Ischemic cardiomyopathy (principal); I11.0 Hypertensive heart disease with heart failure; I50.23 Acute on chronic systolic (congestive) heart failure; D50.9 Iron deficiency anemia, unspecified; J44.9 Chronic obstructive pulmonary disease, unspecified; I25.10 Atherosclerotic heart disease of native coronary artery without angina pectoris; E78.00 Pure hypercholesterolemia, unspecified; F17.210 Nicotine dependence, cigarettes, uncomplicated; Z79.899 Other long term (current) drug therapy; Z79.82 Long term (current) use of aspirin; Z95.5 Presence of coronary angioplasty implant and graft; Z91.14 Patient's other noncompliance with medication regimen
CPT/HCPCS: 33249; 36415; 71045; 71046; 80048; 93641; 99152; 99153; J3010; J7030; J7050; A4216; C1894

== ENCOUNTER 2018-01-17 23:18 | Emergency (ER) | payer MEDICAID, SELFPAY ==
[2018-01-17 23:19] VITALS: BP 101/57; PULSE 87; RESP 21; TEMP 36.3; O2SAT 97; BMI 26.2
--- NOTE | 2018-01-17 23:35 | EKG12_ITS ---
Test Reason : Blood Pressure : / mmHG Vent. Rate : 087 BPM Atrial Rate : 087 BPM P-R Int : 198 ms QRS Dur : 098 ms QT Int : 400 ms P-R-T Axes : 079 -41 226 degrees QTc Int : 481 ms Normal sinus rhythm Left axis deviation Septal infarct , age undetermined ST & T wave abnormality, consider inferior ischemia ST & T wave abnormality, consider anterolateral ischemia Abnormal ECG Confirmed by ERICA BARLOW, SOFY ([id number]), food expeditor AMADOR EDMONDS ([id number]) on 01/21/2018 3:00:21 PM Referred By: Bradford Mak Confirmed By:SOFY MALDONADO MD
--- NOTE | 2018-01-17 23:38 | ED.DCSUM_ITS ---
- ER Visit Summary Date of Service: 01/17/18 Chief Complaint: [] Near syncope at home after taking blood pressure medicines History of Present Illness: The patient is a 57 M [] history of having a implantable defibrillator placed 1 week ago he was doing fine today he sat down had dinner took his blood pressure medicines this evening and then he felt very dizzy near syncope per medics were called his blood pressure was 70 he was given fluid and improved to 110 arrival to the emergency department about 105. He has no complaints of head neck chest or abdominal pain however he does report the pacemaker insertion site is still slightly sore he has had no fever no cough no anginal chest pain of any kind. He is eating and drinking well. His pacemaker did not fire, his insertion was unremarkable. He is having no vomiting fever or diarrhea, he believes he may have had an NC about 1 year ago he seen by Dr. Mak Physical Examination: [] His current blood pressure is 88 over palp is resting comfortably bed with no complaints his heart rate is 80 afebrile his pacer pocket is slightly tender but there is no signs of drainage or warmth or infection his HEENT exam is unremarkable his lungs are clear his heart tones are unremarkable abdomen soft nontender he is awake alert moving all 4 extremities he has no complaints of delays in the bed. His EKG shows a sinus rhythm there is diffuse T-wave abnormalities in the lateral and anterior leads are present on previous EKG Test Results: [] Emergency Department Course and Treatment: [] He is absolutely sure he was not sick until he took his blood pressure medicines as above he states he feels fine right now he is not dizzy having no symptoms right IV fluids screening labs EKG discuss case with box toe stitcher Did have a nuclear cardiac stress test that showed no ischemia in November 2017 Studies are all generally unremarkable his hemoglobin is 10.5 it is actually improvement, he has a chronic troponin of 0.08 that is not new his EKG shows no new changes on reevaluation after liter of fluid his blood pressure is 120/80 I stood him he walked around the bed he felt fine he discussed inpatient versus outpatient management he does not wish to be admitted he indicates he has an appointment to see Dr. Mak tomorrow morning, we spoke with Dr. Cardozo on- call for cardiology discussed with him in detail no further instructions Treatment Plan: [] Disposition: [] Stable home patient declined admission Impression: [] Hypotension after taking blood pressure medicine, recent implantation of cardiac defibrillator This note was generated with [employer] dictation software. It may contain incorrect words, spelling, and punctuation that were not noted in review of the chart prior to signing ED Disposition - Plan for ED Patient: Chief Complaint: Syncope Referrals: [facility] Doctor,Out of [NON-STAFF] -
--- NOTE | 2018-01-17 23:40 | RAD_ITS ---
XR Chest 1 View INDICATION: NEAR SYNCOPAL EPISODE AT HOME COMPARISON: January 11, 2018 TECHNIQUE: Portable chest x-ray FINDINGS: Cardiac pacemaker/AICD is in stable position with battery pack over the left chest. Heart size remains mildly enlarged. Mild bibasilar atelectasis are seen, lungs are otherwise clear. Osseous structures are grossly unremarkable. RAD/Chest 1 View (Portable) IMPRESSION: Mild bibasilar atelectasis, lungs are otherwise clear. Cardiac pacemaker/AICD in place. at 0025 Reported and signed by: Heide Murphy MD Electronically Signed: Heide Murphy MD at 0:23 EDT Tel , Service support ,
[2018-01-17] MEDS: 0.9% Normal Saline 1,000 ML 1000 ML IV (23:43)
[2018-01-17] MEDS: Aspirin 81 MG TAB.CHEW 324 MG PO (23:48)
[2018-01-18 00:05] LABS: Absolute Lymphocyte Count 1.78 X10^3/ul (0.83-4.51); Absolute Neutrophil Count 6.2 X10^3/uL (2.0-7.7); Basophil# 0.06 X10^3/uL; Basophil% 0.6 % (0-1); Eosinophil# 0.24 X10^3/uL; Eosinophils% 2.5 % (0-5); Hematocrit 33.9 % (40-54); Hemoglobin 10.5 g/dl (13.0-16.5); Lymphocyte # 1.78 X10^3/ul (4.0); Lymphocyte % 18.7 % (19-41); Mean Corpuscular Hgb 23.9 pg (27.0-32.0); Mean Platelet Vol. 8.8 fl (6.2-12.0); Monocyte% 12.6 % (0-10); Neutrophil # 6.15 X10^3/uL (2.7-7.7); Neutrophil % 64.8 % (47-70); Platelet Count 236 K/mm3 (150-450); RBC Distribution Width CV 23.4 % (11.6-14.6); RBC Distribution Width SD 64.5 fl (35.1-43.9); White Blood Count 9.5 K/mm3 (4.4-11.0)
[2018-01-18 00:08] LABS: Differential Indicated SCAN CRITERIA MET; POSITIVE COUNT NO; POSITIVE DIFFERENTIAL NO; POSITIVE MORPHOLOGY YES
[2018-01-18 00:10] LABS: Anion Gap 6 (5-15); BUN 29 mg/dL (7-18); BUN/Creat Ratio 26.9 RATIO (10-20); Calcium,Total 8.9 mg/dL (8.5-10.1); Chloride 102 mmol/L (98-107); Creatinine, Serum 1.08 mg/dL (0.70-1.30); EST Glomerular Filtration Rate 74 mL/min (>60); Est Glom Filt Rate - Afr Amer 90 mL/min (>60); Estimated Creatinine Clearance 71.25 ml/min; Glucose 72 mg/dL (74-106); Potassium 4.5 mmol/L (3.5-5.1); Sodium Level 137 mmol/L (136-145)
[2018-01-18 00:19] VITALS: BP 119/63; PULSE 94; RESP 14; O2SAT 97
[2018-01-18 00:32] LABS: BNP,B-Type NATRIURETIC PEPTIDE 182.2 pg/mL (0-100)
[2018-01-18 00:33] LABS: Anisocytosis 2+; Differential Comment SCANNED; Hypochromasia 1+; Ovalocyte 1+
--- NOTE | 2018-01-18 00:42 | DCINST.ED_ITS ---
ED Disposition - Plan for ED Patient: Chief Complaint: Syncope Instructions: ED Hypotension Orthostatic Referrals: [facility] Doctor,Out of [NON-STAFF] - Bradford Mak MD [STAFF PHYSICIAN] -
[2018-01-18 01:16] VITALS: BP 121/70; PULSE 84; RESP 16; O2SAT 96
--- NOTE | 2018-01-18 01:23 | ED.RN ---
called [employer] per patient request. ETA 1.5 hr
== END 2018-01-18 02:45 | disposition home or self-care (01) ==
PROVIDERS: Emergency Provider Emergency Medicine; Family Provider Nurse Practitioner Family; PCP Nurse Practitioner Family
DX: I95.2 Hypotension due to drugs (principal); T50.905A Adverse effect of unspecified drugs, medicaments and biological substances, initial encounter; Y92.9 Unspecified place or not applicable; Z95.810 Presence of automatic (implantable) cardiac defibrillator; I25.10 Atherosclerotic heart disease of native coronary artery without angina pectoris; I10 Essential (primary) hypertension; Z79.82 Long term (current) use of aspirin; Z79.899 Other long term (current) drug therapy
CPT/HCPCS: 71045; 80048; 83880; 84484; 85025; 93005; 99285; J7030; A4216

== ENCOUNTER 2018-03-23 21:05 | Emergency (ER) | payer MEDICARE, SELFPAY ==
[2018-03-23 21:07] VITALS: BP 82/62; PULSE 77; RESP 14; TEMP 36.4; O2SAT 99; BMI 24.3
--- NOTE | 2018-03-23 21:14 | RAD_ITS ---
STUDY: X-RAY CHEST REASON FOR EXAM: Male, 57 years old. Central chest pain. Shortness of breath weakness and dizziness. History of recent pacemaker insertion one month ago. TECHNIQUE: Single AP portable view of the chest. COMPARISON: January 17, 2018. FINDINGS: The lungs are well expanded. There is persistent density at the right lung base thought to be chronic. There is no demonstrated pleural abnormality. The heart is normal size. Stable cardiac pacemaker. Normal mediastinum and alberto. Normal visualized pulmonary arteries. There is atherosclerotic calcification of the aortic arch with tortuosity. No visualized osseous changes. There is degenerative osteoarthritis of the bilateral shoulders. There is no demonstrated abnormality of the visualized soft tissue structures of the upper abdomen. RAD/Chest 1 View (Portable) IMPRESSION: No major interval change. Electronically Signed: Vic Looney DO at 21:43 EDT Tel [phone], Service support ,
--- NOTE | 2018-03-23 21:14 | EKG12_ITS ---
Test Reason : CP/SOB Blood Pressure : / mmHG Vent. Rate : 065 BPM Atrial Rate : 065 BPM P-R Int : 218 ms QRS Dur : 112 ms QT Int : 474 ms P-R-T Axes : 082 -55 211 degrees QTc Int : 492 ms Sinus rhythm with 1st degree A-V block Left anterior fascicular block ST & T wave abnormality, consider lateral ischemia Prolonged QT Abnormal ECG Confirmed by PRETTY BARLOW, HIRA ([id number]), editorial cartoonist TEZ PETERSON ([id number]) on 03/26/2018 10:04:35 AM Referred By: DR BELLO Confirmed By:HIRA OLSEN MD
[2018-03-23 21:16] VITALS: BP 101/65; PULSE 61; RESP 22; O2SAT 100
[2018-03-23 21:25] LABS: Absolute Lymphocyte Count 2.37 X10^3/ul (0.83-4.51); Absolute Neutrophil Count 4.5 X10^3/uL (2.0-7.7); Basophil# 0.03 X10^3/uL; Basophil% 0.4 % (0-1); Eosinophil# 0.24 X10^3/uL; Hematocrit 40.7 % (40-54); Hemoglobin 13.4 g/dl (13.0-16.5); Lymphocyte # 2.37 X10^3/ul (4.0); Lymphocyte % 29.7 % (19-41); Mean Corp Hgb Conc 32.9 g/gl (32-36); Mean Corpuscular Hgb 27.3 pg (27.0-32.0); Mean Corpuscular Volume 83.1 fL (80-94); Mean Platelet Vol. 8.3 fl (6.2-12.0); Monocyte# 0.84 X10^3/uL; Monocyte% 10.5 % (0-10); Neutrophil # 4.49 X10^3/uL (2.7-7.7); Neutrophil % 56.3 % (47-70); POSITIVE COUNT NO; POSITIVE DIFFERENTIAL NO; POSITIVE MORPHOLOGY NO; Platelet Count 161 K/mm3 (150-450); RBC Distribution Width CV 18.8 % (11.6-14.6); RBC Distribution Width SD 57.6 fl (35.1-43.9)
[2018-03-23 21:39] LABS: Anion Gap 10 (5-15); BUN 6 mg/dL (7-18); BUN/Creat Ratio 9.7 RATIO (10-20); Calcium,Total 8.3 mg/dL (8.5-10.1); Chloride 103 mmol/L (98-107); Creatinine, Serum 0.62 mg/dL (0.70-1.30); EST Glomerular Filtration Rate 141 mL/min (>60); Est Glom Filt Rate - Afr Amer 171 mL/min (>60); Estimated Creatinine Clearance 124.11 ml/min; Glucose 88 mg/dL (74-106); Potassium 3.7 mmol/L (3.5-5.1); Sodium Level 136 mmol/L (136-145)
[2018-03-23 21:46] VITALS: PULSE 56; RESP 20
[2018-03-23] MEDS: Ipratropium/Albuterol Sulfate 3 ML AMPUL.NEB INHALATION (21:46)
[2018-03-23 22:29] LABS: BNP,B-Type NATRIURETIC PEPTIDE 412.4 pg/mL (0-100)
[2018-03-23 22:45] VITALS: BP 140/83; PULSE 90; RESP 16; O2SAT 100
--- NOTE | 2018-03-23 23:31 | DCINST.ED_ITS ---
ED Disposition - Plan for ED Patient: Chief Complaint: Chest Pain Instructions: ED Chest Pain Atypical Unkn Cause Referrals: eBrna Oquendo, DANA-C [Primary Care Provider] -
--- NOTE | 2018-03-23 23:31 | ED.DCSUM_ITS ---
- ER Visit Summary Date of Service: 03/23/18 Chief Complaint: Chest pain History of Present Illness: The patient is a 57 M with chest pain for an hour. This started when he believes his defibrillator fired. He had been drinking this evening and he was watching TV. He felt some shortness of breath with it. He has a history of nonischemic cardiomyopathy. He had a defibrillator placed about 2 months ago. Physical Examination: Afebrile and vital signs unremarkable. The patient is alert and oriented. No acute distress. Heart regular rate and rhythm. Lungs clear throughout. Abdomen soft. Skin unremarkable. Calves soft and supple. Pulses strong and equal. Test Results: KG showed sinus rhythm with nonspecific ST and T-wave changes. He had these documented on prior EKGs. There is no acute infarction pattern. CBC and BMP unremarkable. Troponin normal. BNP 400. Chest x-ray showed no acute abnormalities. Emergency Department Course and Treatment: Patient was placed on a monitor. He was treated with aspirin and a dose of fentanyl while awaiting results. Defibrillator was interrogated. I did speak with the tach. There was no firing or dysrhythmia detected. Patient was reevaluated after his results were back. He had no further issues. He felt better. No pain. No shortness of breath. I spoke with Dr. Mak. No further recommendations. He said of the workup and vital signs were unremarkable, he can follow-up as needed. Patient will be discharged. Treatment Plan: As above Disposition: Discharged Impression: 1. Chest pain unclear etiology This note was generated with [employer] dictation software. It may contain incorrect words, spelling, and punctuation that were not noted in review of the chart prior to signing ED Disposition - Plan for ED Patient: Chief Complaint: Chest Pain Referrals: Berna Oquendo, DANA-C [Primary Care Provider] -
--- NOTE | 2018-03-23 23:31 | ED.DEP ---
ED Disposition - Plan for ED Patient: Chief Complaint: Chest Pain Instructions: ED Chest Pain Atypical Unkn Cause Referrals: Berna Oquendo, DANA-C [Primary Care Provider] -
[2018-03-23 23:38] VITALS: BP 137/99; PULSE 84; RESP 16; O2SAT 99
== END 2018-03-23 23:42 | disposition home or self-care (01) ==
LOC: ED 21:28
PROVIDERS: Emergency Provider Emergency Medicine; Family Provider Nurse Practitioner Family; PCP Nurse Practitioner Family
DX: R07.9 Chest pain, unspecified (principal); I42.8 Other cardiomyopathies; I50.9 Heart failure, unspecified; J44.9 Chronic obstructive pulmonary disease, unspecified; Z95.810 Presence of automatic (implantable) cardiac defibrillator; Z79.82 Long term (current) use of aspirin; Z79.899 Other long term (current) drug therapy; Z72.0 Tobacco use
CPT/HCPCS: 71045; 80048; 83880; 84484; 85025; 93005; 94640; 96360; 99285; J7030; J7040

== ENCOUNTER 2018-06-16 13:20 | Emergency (ER) | payer MEDICARE, SELFPAY ==
[2018-06-16 13:20] VITALS: BP 103/52; PULSE 80; RESP 20; TEMP 36.6; O2SAT 94; BMI 22.7
--- NOTE | 2018-06-16 13:23 | EKG12_ITS ---
Test Reason : Blood Pressure : / mmHG Vent. Rate : 091 BPM Atrial Rate : 091 BPM P-R Int : 192 ms QRS Dur : 102 ms QT Int : 418 ms P-R-T Axes : 086 -36 115 degrees QTc Int : 514 ms Normal sinus rhythm Right atrial enlargement Left axis deviation Voltage criteria for left ventricular hypertrophy ST & T wave abnormality, consider anterolateral ischemia Prolonged QT Abnormal ECG Confirmed by ERICA BARLOW, SOFY ([id number]), magazine editor AMADOR EDMONDS ([id number] on 06/19/2018 2:35:59 PM Referred By: ACE Confirmed By:SOFY MALDONADO MD
--- NOTE | 2018-06-16 13:23 | RAD_ITS ---
STUDY: X-RAY CHEST REASON FOR EXAM: Male, 57 years old. Chest pain G TECHNIQUE: Single AP portable view of the chest. X2 COMPARISON: March 23, 2018 chest x-ray FINDINGS: There is a left-sided defibrillator. The lungs are clear and expanded. There is no demonstrated pleural abnormality. There is borderline cardiomegaly. Normal mediastinum and alberto. Normal visualized pulmonary arteries. Normal visualized aortic arch and descending thoracic aorta. Normal visualized thoracic spine. Normal visualized ribs, clavicles, and shoulders. There is no demonstrated abnormality of the visualized soft tissue structures of the upper abdomen. RAD/Chest 1 View (Portable) IMPRESSION: Stable chest no visualized focal infiltrate. Electronically Signed: Elizabeth Welsh MD at 14:34 EDT Tel , Service support ,
[2018-06-16 13:40] VITALS: O2SAT 95
[2018-06-16 13:51] LABS: Absolute Lymphocyte Count 1.53 X10^3/ul (0.83-4.51); Absolute Neutrophil Count 5.2 X10^3/uL (2.0-7.7); Basophil# 0.04 X10^3/uL; Basophil% 0.5 % (0-1); Eosinophil# 0.23 X10^3/uL; Hematocrit 42.7 % (40-54); Hemoglobin 13.9 g/dl (13.0-16.5); Lymphocyte # 1.53 X10^3/ul (4.0); Lymphocyte % 19.9 % (19-41); Mean Corp Hgb Conc 32.6 g/gl (32-36); Mean Corpuscular Volume 89.1 fL (80-94); Mean Platelet Vol. 8.5 fl (6.2-12.0); Monocyte# 0.72 X10^3/uL; Monocyte% 9.4 % (0-10); Neutrophil # 5.17 X10^3/uL (2.7-7.7); Neutrophil % 67.1 % (47-70); Platelet Count 177 K/mm3 (150-450); RBC Distribution Width CV 14.6 % (11.6-14.6); RBC Distribution Width SD 47.4 fl (35.1-43.9); Red Blood Count 4.79 M/mm3 (4.6-6.2); White Blood Count 7.7 K/mm3 (4.4-11.0)
[2018-06-16 13:58] LABS: POSITIVE COUNT NO; POSITIVE DIFFERENTIAL NO; POSITIVE MORPHOLOGY NO
[2018-06-16 14:07] LABS: Anion Gap 12 (5-15); BUN 13 mg/dL (7-18); BUN/Creat Ratio 15.1 RATIO (10-20); Calcium,Total 8.5 mg/dL (8.5-10.1); Chloride 104 mmol/L (98-107); Creatinine, Serum 0.86 mg/dL (0.70-1.30); EST Glomerular Filtration Rate 96 mL/min (>60); Est Glom Filt Rate - Afr Amer 116 mL/min (>60); Estimated Creatinine Clearance 88.82 ml/min; Glucose 128 mg/dL (74-106); Potassium 3.4 mmol/L (3.5-5.1); Sodium Level 141 mmol/L (136-145)
[2018-06-16 14:23] VITALS: BP 131/77; PULSE 89; RESP 18; O2SAT 98
[2018-06-16 15:43] VITALS: BP 144/89; PULSE 84; RESP 16; O2SAT 96
--- NOTE | 2018-06-16 16:21 | ED.VISSUMM ---
- ER Visit Summary Date of Service: 06/16/18 Chief Complaint: Midsternal chest tightness with radiation to the left shoulder and arm associated with nausea, dyspnea and diaphoresis History of Present Illness: The patient is a 57 M who has history of ischemic cardiomyopathy with EF of 10-15% who had a pacemaker and automatic internal cardiac defibrillator placed this past December presents with chest tightness with aforementioned associated symptoms that occurred while standing at [employer]. He received aspirin and nitroglycerin by squad. He reported improvement of his discomfort. He denies fever, chills night sweats. He denies any URI symptoms. He denies history of PE or DVT. He denies vomiting or diarrhea. He denies hematemesis, melena hematochezia. He denies symptoms of claudication. He denies any neurologic symptoms. Physical Examination: Patient looks older than age. Head is atraumatic normocephalic. Pupils are equal round reactive. Extraocular muscles are intact. TMs are pearly white with landmarks noted. Nares patent with no drainage. Posterior pharynx without erythema or exudate. Uvula is midline. There is no dysphonia or dysphasia. Trachea is midline. There is no stridor with auscultation of the neck. Heart is regular without murmur, gallop or rub. S1 and S2 are normal. Lungs are clear to auscultation with good movement of air bilaterally. Abdomen is soft nontender bowel sounds are present normal per there is no asymmetry, swelling, discoloration, leg vein distention, palpable cords or tenderness along the distribution of the deep venous system. PT and DP pulses are palpable. Neuro exam is nonfocal. Test Results: EKG reveals sinus rhythm with decreased anterior force, left anterior fascicular block right atrial enlargement secondary to cor pulmonale and a new flipped T wave in V3 which may be secondary to lead placement. RI interval is normal. QRS duration is slightly prolonged. QT is prolonged. EKG was compared to EKG obtained March 23, 2018. Chest x-ray reveals chronic changes. CBC normal glucose 128. Troponin 0 0.042. He has had prior elevated troponin levels. Repeat troponin 0 0.36 with a delta of -0.06 Emergency Department Course and Treatment: Cardiac workup was undertaken. Need to evaluate cardiac versus GI versus pulmonary etiology. He received aspirin and nitro prior to arrival. He did not receive additional doses of nitro because of hypotension. Treatment Plan: Case was a soft Dr. Covarrubias. He requested a photo of prior EKG and today's EKG. Plan is 3-hour troponin/delta. If normal to discharge to home if positive to admit. Dr. Covarrubias requested to be notified if he is admitted or discharged. Disposition: Discharged to home with outpatient follow-up this week Impression: Precordial chest pain History of ischemic cardiomyopathy History of CHF This note was generated with [employer] dictation software. It may contain incorrect words, spelling, and punctuation that were not noted in review of the chart prior to signing ED Disposition - Plan for ED Patient: Disposition: Home or Assisted Living Chief Complaint: Chest Pain Instructions: ED Chest Pain Atypical Unkn Cause Referrals: Berna Oquendo, [facility] [Primary Care Provider] - Additional Instructions: Call Dr. Dhruv Mak's office tomorrow for appointment to be seen within the next 2-3 days.
[2018-06-16 16:25] VITALS: BP 147/96; PULSE 98; RESP 16; O2SAT 97
--- NOTE | 2018-06-16 16:27 | ED.DCSUM_ITS ---
- ER Visit Summary Date of Service: 06/16/18 Chief Complaint: Midsternal chest tightness with radiation to the left shoulder and arm associated with nausea, dyspnea and diaphoresis History of Present Illness: The patient is a 57 M who has history of ischemic cardiomyopathy with EF of 10-15% who had a pacemaker and automatic internal cardiac defibrillator placed this past December presents with chest tightness with aforementioned associated symptoms that occurred while standing at [employer]. He received aspirin and nitroglycerin by squad. He reported improvement of his discomfort. He denies fever, chills night sweats. He denies any URI symptoms. He denies history of PE or DVT. He denies vomiting or diarrhea. He denies hematemesis, melena hematochezia. He denies symptoms of claudication. He denies any neurologic symptoms. Physical Examination: Patient looks older than age. Head is atraumatic normocephalic. Pupils are equal round reactive. Extraocular muscles are intact. TMs are pearly white with landmarks noted. Nares patent with no drainage. Posterior pharynx without erythema or exudate. Uvula is midline. There is no dysphonia or dysphasia. Trachea is midline. There is no stridor with auscultation of the neck. Heart is regular without murmur, gallop or rub. S1 and S2 are normal. Lungs are clear to auscultation with good movement of air bilaterally. Abdomen is soft nontender bowel sounds are present normal per there is no asymmetry, swelling, discoloration, leg vein distention, palpable cords or tenderness along the distribution of the deep venous system. PT and DP pulses are palpable. Neuro exam is nonfocal. Test Results: EKG reveals sinus rhythm with decreased anterior force, left anterior fascicular block right atrial enlargement secondary to cor pulmonale and a new flipped T wave in V3 which may be secondary to lead placement. NC interval is normal. QRS duration is slightly prolonged. QT is prolonged. EKG was compared to EKG obtained March 23, 2018. Chest x-ray reveals chronic changes. CBC normal glucose 128. Troponin 0 0.042. He has had prior elevated troponin levels. Repeat troponin 0 0.36 with a delta of -0.06 Emergency Department Course and Treatment: Cardiac workup was undertaken. Need to evaluate cardiac versus GI versus pulmonary etiology. He received aspirin and nitro prior to arrival. He did not receive additional doses of nitro because of hypotension. Treatment Plan: Case was a soft Dr. Covarrubias. He requested a photo of prior EKG and today's EKG. Plan is 3-hour troponin/delta. If normal to discharge to home if positive to admit. Dr. Covarrubias requested to be notified if he is admitted or discharged. Disposition: Discharged to home with outpatient follow-up this week Impression: Precordial chest pain History of ischemic cardiomyopathy History of CHF This note was generated with [employer] dictation software. It may contain incorrect words, spelling, and punctuation that were not noted in review of the chart prior to signing ED Disposition - Plan for ED Patient: Disposition: Home or Assisted Living Chief Complaint: Chest Pain Instructions: ED Chest Pain Atypical Unkn Cause Referrals: Berna Oquendo, [employer]-C [Primary Care Provider] - Additional Instructions: Call Dr. Dhruv Mak's office tomorrow for appointment to be seen within the next 2-3 days.
[2018-06-16 17:06] VITALS: BP 169/91; PULSE 91; PULSE 94; RESP 16; O2SAT 97
== END 2018-06-16 17:11 | disposition home or self-care (01) ==
PROVIDERS: Emergency Provider Emergency Medicine; Family Provider Nurse Practitioner Family; PCP Nurse Practitioner Family
DX: R07.89 Other chest pain (principal); I25.5 Ischemic cardiomyopathy; I50.9 Heart failure, unspecified; I44.4 Left anterior fascicular block; I25.10 Atherosclerotic heart disease of native coronary artery without angina pectoris; I25.2 Old myocardial infarction; J44.9 Chronic obstructive pulmonary disease, unspecified; Z95.810 Presence of automatic (implantable) cardiac defibrillator; Z79.82 Long term (current) use of aspirin; Z79.899 Other long term (current) drug therapy
CPT/HCPCS: 71045; 80048; 84484; 85025; 93005; 99284; J7030; A4216

== ENCOUNTER 2018-07-20 10:39 | Emergency (ER) | payer MEDICARE, SELFPAY ==
[2018-07-20 10:39] VITALS: BP 147/90; PULSE 96; RESP 15; TEMP 36.8; O2SAT 98; BMI 22.8
--- NOTE | 2018-07-20 10:50 | EKG12_ITS ---
Test Reason : CP Blood Pressure : / mmHG Vent. Rate : 093 BPM Atrial Rate : 093 BPM P-R Int : 204 ms QRS Dur : 096 ms QT Int : 394 ms P-R-T Axes : 083 -38 128 degrees QTc Int : 489 ms Normal sinus rhythm Biatrial enlargement Left axis deviation Septal infarct , age undetermined ST & T wave abnormality, consider lateral ischemia Abnormal ECG Confirmed by ERICA BARLOW, SOFY ([id number]), deputy editor in chief TEZ PETERSON ([id number]) on 07/23/2018 11:08:21 AM Referred By: ACE Confirmed By:SOFY MALDONADO MD
--- NOTE | 2018-07-20 10:51 | RAD_ITS ---
STUDY: X-RAY CHEST REASON FOR EXAM: Male, 57 years old. Productive cough TECHNIQUE: PA and lateral views of the chest. # of Images: 2 COMPARISON: 06/16/2018 FINDINGS: There is hyperinflation of the lungs consistent with chronic obstructive lung disease (COPD). No acute airspace disease. Questionable mild on the right lower lobe measuring 1.4 x 1 cm. Stable left chest wall pacing device There is mild cardiac enlargement. Normal mediastinum and alberto. Normal visualized pulmonary arteries. Normal visualized aortic arch and descending thoracic aorta. Normal visualized thoracic spine. Normal visualized ribs, clavicles, and shoulders. There is no demonstrated abnormality of the visualized soft tissue structures of the upper abdomen. RAD/Chest PA and Lateral IMPRESSION: No acute cardiopulmonary disease. Questionable right lower lobe nodule. Nonemergent chest CT is recommended to further evaluate Electronically Signed: Clark Pacheco DO at 11:32 EDT Tel , Service support ,
[2018-07-20 10:59] VITALS: PULSE 98; RESP 26
[2018-07-20] MEDS: Albuterol 2.5 MG/3 ML VIAL.NEB. INHALATION (10:59)
[2018-07-20] MEDS: Ipratropium/Albuterol Sulfate 3 ML AMPUL.NEB INHALATION (10:59)
--- NOTE | 2018-07-20 11:08 | ED.DCSUM_ITS ---
- ER Visit Summary Date of Service: 07/20/18 Chief Complaint: Shortness of breath History of Present Illness: The patient is a 57 M who has multiple medical problems presents with shortness of breath, dyspnea on exertion and productive cough of yellow colored sputum. Patient states he normally has clear to white colored sputum. He does have history of COPD. He presently smokes 2-3 cigarettes a day. 5 years ago he smoked 2+ packs per day. He has history of coronary disease with ischemic cardiomyopathy and placement of a automatic internal cardiac defibrillator 3-4 months ago. He denies fever, chills night sweats. He denies weight gain or weight loss. He denies ocular, visual auditory symptoms. He denies nasal congestion or postnasal drip. He denies sore throat. He denies chest discomfort. He denies orthopnea or PND. He denies abdominal pain, vomiting, diarrhea or constipation. He denies leg pain, swelling or discoloration. He denied all other questions. Please read written note for complete detail Physical Examination: Vitals noted and blood pressure is 147/90. He is not hypoxic nor is he febrile. Head is atraumatic normocephalic. Pupils are equal round reactive. Extraocular muscles are intact. TMs are pearly white with landmarks noted. Nares patent with no drainage. Posterior pharynx without erythema or exudate. Uvula is midline. There is no dysphonia or dysphasia. Trachea is midline. There is no stridor with auscultation of the neck. Heart is regular without murmur, gallop or rub. Lungs reveal wheezing bilaterally with increased x-ray phase and diminished breath sounds bilaterally. Abdomen is scaphoid nontender bowel sounds are present normal. There is no asymmetry, swelling, discoloration, leg vein distention, palpable cords or tenderness along the distribution of the deep venous system. Neuro exam is nonfocal. Test Results: EKG is abnormal. Mechanism sinus with a ventricular rate of 93. ID interval is prolonged and consistent with first-degree AV block. There is evidence of cor pulmonale and decreased anterior force. There are ST-T wave changes lateral leads. This is unchanged from June 16, 2018. And there is exactly similar to EKG dated March 23, 2018. Two-view chest x-ray reveals chronic pulmonary changes. Cardiac silhouette is normal. Defibrillator noted. No evidence of pneumothorax, CHF or effusion. CBC is unremarkable. Basic medical panel is remarkable for glucose of 179. Emergency Department Course and Treatment: To evaluate patient's dyspnea with history of COPD and coronary disease EKG was obtained to evaluate for acute ischemia. Chest x-ray to evaluate for pneumonia, pneumothorax or heart failure since there is a history of both systolic and diastolic congestive heart failure. With history of anemia and he appears pale will obtain CBC since this may be a cause of his shortness of breath as well. He was treated with DuoNeb and albuterol for his bilateral expiratory wheezing. Treatment Plan: Patient was reassessed at 1225. He is no longer wheezing. He is not tachypnic. He states he still feels ill. He was instructed to stop smoking. He was discharged with prescription for prednisone and doxycycline. Disposition: Discharged to home in improved and stable Impression: 1. Acute exacerbation of COPD with bronchospasm 2. Exacerbation of chronic bronchitis 3. History of ischemic cardiomyopathy 4. Hyperglycemia This note was generated with [employer] dictation software. It may contain incorrect words, spelling, and punctuation that were not noted in review of the chart prior to signing ED Disposition - Plan for ED Patient: Disposition: Home or Assisted Living Chief Complaint: Shortness of Breath Instructions: ED COPD Flare, ED Hyperglycemia New Susp Diabetes Prescriptions: Prednisone [Deltasone] 40 mg PO DAILY #10 tab Doxycycline Monohydrate 100 mg PO BID #14 cap Referrals: Berna Oquendo, DANA-C [Primary Care Provider] - 1 Week
[2018-07-20 11:18] LABS: Absolute Lymphocyte Count 0.89 X10^3/ul (0.83-4.51); Absolute Neutrophil Count 5.8 X10^3/uL (2.0-7.7); Basophil# 0.04 X10^3/uL; Basophil% 0.5 % (0-1); Eosinophil# 0.12 X10^3/uL; Eosinophils% 1.6 % (0-5); Hematocrit 41.8 % (40-54); Hemoglobin 13.8 g/dl (13.0-16.5); Lymphocyte # 0.89 X10^3/ul (4.0); Lymphocyte % 12.1 % (19-41); Mean Corpuscular Hgb 30.1 pg (27.0-32.0); Mean Corpuscular Volume 91.3 fL (80-94); Mean Platelet Vol. 9.1 fl (6.2-12.0); Monocyte# 0.49 X10^3/uL; Monocyte% 6.7 % (0-10); Neutrophil % 78.8 % (47-70); POSITIVE COUNT NO; POSITIVE DIFFERENTIAL NO; POSITIVE MORPHOLOGY NO; Platelet Count 186 K/mm3 (150-450); RBC Distribution Width CV 14.5 % (11.6-14.6); RBC Distribution Width SD 47.7 fl (35.1-43.9); Red Blood Count 4.58 M/mm3 (4.6-6.2); White Blood Count 7.4 K/mm3 (4.4-11.0)
[2018-07-20 11:28] LABS: Anion Gap 8 (5-15); BUN 13 mg/dL (7-18); BUN/Creat Ratio 15.9 RATIO (10-20); Calcium,Total 8.4 mg/dL (8.5-10.1); Chloride 101 mmol/L (98-107); Creatinine, Serum 0.82 mg/dL (0.70-1.30); EST Glomerular Filtration Rate 102 mL/min (>60); Est Glom Filt Rate - Afr Amer 124 mL/min (>60); Estimated Creatinine Clearance 93.57 ml/min; Glucose 179 mg/dL (74-106); Potassium 4.3 mmol/L (3.5-5.1); Sodium Level 136 mmol/L (136-145)
[2018-07-20 11:57] VITALS: BP 122/82; PULSE 99; RESP 25; O2SAT 99
[2018-07-20 12:32] VITALS: BP 151/87; PULSE 91; RESP 18; O2SAT 99
[2018-07-20 12:57] VITALS: BP 151/92; PULSE 91; RESP 18; O2SAT 99
--- NOTE | 2018-07-22 12:27 | CM.ED ---
ED CALLBACK: Follow-up call placed to patient with no answer. Voicemail left with return contact information.
== END 2018-07-20 12:58 | disposition home or self-care (01) ==
PROVIDERS: Emergency Provider Emergency Medicine; Family Provider Nurse Practitioner Family; PCP Nurse Practitioner Family
DX: J44.1 Chronic obstructive pulmonary disease with (acute) exacerbation (principal); J98.01 Acute bronchospasm; J42 Unspecified chronic bronchitis; I25.5 Ischemic cardiomyopathy; R73.9 Hyperglycemia, unspecified; I25.10 Atherosclerotic heart disease of native coronary artery without angina pectoris; I50.9 Heart failure, unspecified; I47.2 Ventricular tachycardia; Z95.810 Presence of automatic (implantable) cardiac defibrillator; Z79.82 Long term (current) use of aspirin; Z79.899 Other long term (current) drug therapy; F17.210 Nicotine dependence, cigarettes, uncomplicated
CPT/HCPCS: 71046; 80048; 85025; 93005; 94640; 99284; A4216

== ENCOUNTER 2018-07-28 20:00 | Emergency (ER) | payer MEDICARE, SELFPAY ==
[2018-07-28 20:01] VITALS: BP 116/69; PULSE 88; RESP 15; TEMP 36.3; O2SAT 97; BMI 22.9
--- NOTE | 2018-07-28 21:10 | ED.DCSUM_ITS ---
- ER Visit Summary Date of Service: 07/28/18 Chief Complaint: Spider bite History of Present Illness: The patient is a 57 M presenting secondary to a spider bite. Patient reports that since yesterday he has noticed a spreading area on his right inner thigh that is painful. Patient believes that potential ly he was bitten by a black . Patient did not see anything bite him. He is states that he had a fever yesterday of 103. Patient is not a diabetic but does have a history of coronary artery disease. Physical Examination: Vital signs within normal limits and the patient's afebrile. Examination of the patient's lower extremity shows evidence of a 1 cm eschar with some surrounding erythema. No evidence of subcutaneous emphysema, lymphangitic streaking. Test Results: None indicated Emergency Department Course and Treatment: Patient presented for evaluation secondary to a skin infection of the right thigh. Wound was cleaned with alcohol, and then was anesthetized using a field block. The eschar was lifted away from the skin, and the underlying area was irrigated. There is no evidence of tunneling. Wound was dressed with a dry sterile dressing. Patient will be placed on a course of doxycycline. He will follow-up with primary care. Disposition: Discharge Impression: 1. Right thigh eschar 2. Incision and drainage This note was generated with [employer] dictation software. It may contain incorrect words, spelling, and punctuation that were not noted in review of the chart prior to signing ED Disposition - Plan for ED Patient: Disposition: Home or Assisted Living Chief Complaint: Abscess Diagnosis: Abscess of right thigh Instructions: ED Abscess IandD Prescriptions: Doxycycline Monohydrate 100 mg PO BID #14 cap Referrals: Berna Oquendo NP-C [Primary Care Provider] - 3-5 Days
[2018-07-28] MEDS: Doxycycline 100 MG CAPSULE PO (21:20)
== END 2018-07-28 21:26 | disposition home or self-care (01) ==
PROVIDERS: Emergency Provider Emergency Medicine; Family Provider Nurse Practitioner Family; PCP Nurse Practitioner Family
DX: L02.415 Cutaneous abscess of right lower limb (principal); R23.4 Changes in skin texture; I25.10 Atherosclerotic heart disease of native coronary artery without angina pectoris; I10 Essential (primary) hypertension; E78.00 Pure hypercholesterolemia, unspecified; Z95.810 Presence of automatic (implantable) cardiac defibrillator; Z79.82 Long term (current) use of aspirin; Z79.899 Other long term (current) drug therapy; Z72.0 Tobacco use
CPT/HCPCS: 99283

== ENCOUNTER 2018-08-03 16:55 | Observation (INO) | payer MEDICARE, SELFPAY ==
[2018-08-03] VITALS (8 sets, daily range): BP systolic 118–138; BP diastolic 76–96; PULSE 80–103; RESP 16–25; TEMP 36.8; O2SAT 97–100; BMI 24.6; BMI 22.6
--- NOTE | 2018-08-03 17:18 | EKG12_ITS ---
Test Reason : CP Blood Pressure : / mmHG Vent. Rate : 102 BPM Atrial Rate : 102 BPM P-R Int : 208 ms QRS Dur : 098 ms QT Int : 368 ms P-R-T Axes : 077 -47 135 degrees QTc Int : 479 ms Sinus tachycardia Possible Left atrial enlargement Left axis deviation Septal infarct , age undetermined ST & T wave abnormality, consider lateral ischemia Abnormal ECG Confirmed by HIRA OLSEN MD ([id number]), movie editor AMADOR EDMONDS ([id number]) on 08/05/2018 3:43:42 PM Referred By: VASILE Confirmed By:HIRA OLSEN MD
--- NOTE | 2018-08-03 17:18 | RAD_ITS ---
STUDY: X-RAY CHEST REASON FOR EXAM: Male, 57 years old. Shortness of breath. TECHNIQUE: Single frontal view of the chest. COMPARISON: July 20, 2018 FINDINGS: The lungs are mildly hyperexpanded and unchanged. The nodule mentioned on the prior report is not identified. There is no demonstrated pleural abnormality. There is stable cardiomegaly. There is a stable single lead cardiac pacer. Normal mediastinum and alberto. Normal visualized pulmonary arteries. There is atherosclerotic calcification of the aortic arch with tortuosity. Normal visualized thoracic spine. Normal visualized ribs, clavicles, and shoulders. There is no demonstrated abnormality of the visualized soft tissue structures of the upper abdomen. RAD/Chest 1 View (Portable) IMPRESSION: Stable cardiomegaly with hyperexpansion. No new or acute pathology. Electronically Signed: Orlin Appiah MD at 17:44 EDT , Service support ,
--- NOTE | 2018-08-03 17:21 | ED.VISSUMM ---
- ER Visit Summary Date of Service: 08/03/18 Chief Complaint: Shortness of breath, chest pain History of Present Illness: The patient is a 57 M presenting with shortness of breath, chest pain. He states he has been short of breath for a few hours. Chest pain started just prior to arrival. He has had a productive cough. He has a history of COPD, cardiomyopathy, ICD. He is not on home O2. He is a smoker. Physical Examination: Vitals are stable. Patient is afebrile. Alert no acute distress. HEENT exam is unremarkable. Neck is supple. Lungs are diminished bilaterally. Heart is regular and tachycardic. Abdomen is soft nontender nondistended. Extremities are unremarkable. Skin is warm and dry. No focal neurologic deficit. Remainder of exam is unremarkable. Emergency Department Course and Treatment: Patient was given aspirin on arrival. He is given morphine, Zofran IV. He was given albuterol, Atrovent aerosols. EKG is sinus rate of [address] depression and T wave inversion, unchanged from previous. CBC shows white count 13.0, hemoglobin 12.1. Chemistry shows sodium 129. Troponin 0.036. D-dimer is 0.73. Chest x-ray shows cardiomegaly, no acute process. CTA chest shows no PE, moderate to severe COPD. Patient continues to complain of difficulty breathing. He was given Solu-Medrol IV. He states he feels lightheaded and was near syncopal with standing. Will discuss with the hospitalist. Disposition: Observation Impression: COPD exacerbation, chest pain This note was generated with [employer] dictation software. It may contain incorrect words, spelling, and punctuation that were not noted in review of the chart prior to signing ED Disposition - Plan for ED Patient: Chief Complaint: Chest Pain Referrals: Berna Oquendo, DANA-C [Primary Care Provider] -
[2018-08-03] MEDS: Ipratropium/Albuterol Sulfate 3 ML AMPUL.NEB INHALATION (17:24)
[2018-08-03] MEDS: Albuterol 2.5 MG/3 ML VIAL.NEB. INHALATION ×2 (17:25)
[2018-08-03 17:33] LABS: Absolute Lymphocyte Count 0.76 X10^3/ul (0.83-4.51); Absolute Neutrophil Count 11.1 X10^3/uL (2.0-7.7); Basophil# 0.02 X10^3/uL; Basophil% 0.2 % (0-1); Eosinophil# 0.03 X10^3/uL; Eosinophils% 0.2 % (0-5); Hematocrit 37.4 % (40-54); Hemoglobin 12.1 g/dl (13.0-16.5); Lymphocyte # 0.76 X10^3/ul (4.0); Lymphocyte % 5.9 % (19-41); Mean Corp Hgb Conc 32.4 g/gl (32-36); Mean Corpuscular Hgb 28.9 pg (27.0-32.0); Mean Corpuscular Volume 89.5 fL (80-94); Mean Platelet Vol. 8.8 fl (6.2-12.0); Monocyte# 1.08 X10^3/uL; Monocyte% 8.3 % (0-10); Neutrophil # 11.07 X10^3/uL (2.7-7.7); Neutrophil % 85.3 % (47-70); Platelet Count 265 K/mm3 (150-450); RBC Distribution Width CV 14.1 % (11.6-14.6); Red Blood Count 4.18 M/mm3 (4.6-6.2)
[2018-08-03 17:36] LABS: POSITIVE COUNT NO; POSITIVE DIFFERENTIAL NO; POSITIVE MORPHOLOGY NO
[2018-08-03] MEDS: Morphine 4 MG/ML Syringe IV (17:36)
[2018-08-03] MEDS: Ondansetron 4 MG/2 ML Vial IV (17:36)
[2018-08-03 17:46] LABS: D-Dimer Quantitative (DVT/PE) 0.73 FEU/ug/m (0.27-0.49)
[2018-08-03 17:50] LABS: Anion Gap 10 (5-15); BUN 14 mg/dL (7-18); BUN/Creat Ratio 16.4 RATIO (10-20); Calcium,Total 8.2 mg/dL (8.5-10.1); Chloride 94 mmol/L (98-107); Creatinine, Serum 0.85 mg/dL (0.70-1.30); EST Glomerular Filtration Rate 97 mL/min (>60); Est Glom Filt Rate - Afr Amer 118 mL/min (>60); Estimated Creatinine Clearance 90.53 ml/min; Glucose 100 mg/dL (74-106); Potassium 3.8 mmol/L (3.5-5.1); Sodium Level 129 mmol/L (136-145)
--- NOTE | 2018-08-03 17:55 | CT_ITS ---
STUDY: CTA CHEST REASON FOR EXAM: Male, 57 years old. Short of breath and chest pain. Elevated d-dimer. RADIATION DOSAGE (If Supplied By Facility): CTDIvol = ( 8.23 ) mGy, DLP = ( 231.23 ) mGycm TECHNIQUE: The examination was performed with the intravenous administration of 100ML ml of Isovue 370 contrast material. Post-processing of the angiographic images was performed, with multiplanar reformation and 3D reconstruction. Individualized dose optimization techniques were used for this CT. COMPARISON: None. FINDINGS: Normal enhancement of the main pulmonary artery and right and left pulmonary arteries. Normal enhancement of the bilateral peripheral pulmonary arteries. There is no demonstrated pulmonary embolism. There is atherosclerotic calcification of the aortic arch with tortuosity. There is no demonstrated aortic dissection. There is mild cardiomegaly. There are calcifications of the coronary arteries. Normal mediastinum. Normal hilar regions. Normal visualized trachea and bronchi. The lungs are hyper expanded, with flattening of the hemidiaphragms. There are moderately increased diffuse interstitial parenchymal markings. Findings especially prominent in the lower lung crews. No focal infiltrates. Normal pleura. There are no pleural effusions. Normal chest wall structures. Normal osseous structures. Normal visualized upper abdomen. CT/CTA Chest W/WO Contrast IMPRESSION: No evidence for PE. Moderate to severe fibrotic COPD. Electronically Signed: Osmar Reardon MD at 19:59 EDT , Service support ,
--- NOTE | 2018-08-03 20:25 | PCM.HP.STD ---
Problem List (1) COPD exacerbation Status: Acute Comment: Recent discharge 12/14/17 following treatment for acute on chronic systolic CHF exacerbation, acute COPD exacerbation with acute hypoxic respiratory failure and MRSA HCAP PNA. History of Present Illness Date of Admission: 08/03/18 Chief Complaint: Shortness of breath The patient is a 57 year old M with a significant history of tobacco abuse; COPD, ischemic cardiomyopathy, CAD status post stent; ICD who presents with progressively worsening shortness of breath that started a day before his admission. His shortness of breath occurs at rest and it increases with exertion. Associated with his symptoms is wheezing and productive cough of thick yellow sputum. Patient reports that he is supposed to use continuous home oxygen at 3 L but he intermittently does that. He also complains of constant mild to moderate chest pain that started 2 days ago but was it severe a day before his admission. His chest pain is substernal. At the time of evaluation patient complained that his chest pain was radiating to his left side where his pacemaker is. He described his chest pain as sharp. He reported that he felt numbness on the right side of his body yesterday which made him unable to walk. His chest pain increases with exertion and there is no alleviating factors. He reports drinking about 6 packs daily. He reports that recently he split with his . Past Medical History Past Medical History (Chronic Problems): Chronic Problems (Last Reviewed 08/03/18 @ 21:34 by Marcus Mi MD) ICD (implantable cardioverter-defibrillator) in place (Chronic) Iron deficiency anemia (Chronic) COPD (chronic obstructive pulmonary disease) (Chronic) Tobacco abuse (Chronic) Medical non-compliance (Chronic) Ischemic cardiomyopathy (Chronic) Medical History: Medical History (Last Reviewed 08/03/18 @ 21:34 by Marcus Mi MD) Atherosclerosis of coronary artery of [place] heart without angina pectoris (Acute) I25.10 LEFT HEART ASSESSMENT Left Ventricular Ejection Fraction: by LV Gram 10-15 % Global Hypokinesis - Severe Depressed Left Ventricular systolic function Normal Left Ventricular End Diastolic Pressure LEFT MAIN: Non-obstructive LEFT ANTERIOR DECENDING ARTERY: Previously placed stent is patent DIAGONAL 1: Ostial - Mild luminal irregularities less than 30% DIAGONAL 2: Proximal - Non-obstructive CIRCUMFLEX ARTERY: MID CIRC: Previously placed stent is patent RIGHT CORONARY ARTERY: MID RCA: Previously placed stent has instent 20 % restenosis with a new at distal edge of stent COPD exacerbation (Acute) J44.1 Recent discharge 12/14/17 following treatment for acute on chronic systolic CHF exacerbation, acute COPD exacerbation with acute hypoxic respiratory failure and MRSA HCAP PNA. Acute respiratory failure with hypoxemia (Acute) J96.01 Iron deficiency anemia (Chronic) D50.9 NSVT (nonsustained ventricular tachycardia) (Acute) I47.2 COPD (chronic obstructive pulmonary disease) (Chronic) J44.9 Tobacco abuse (Chronic) Z72.0 Medical non-compliance (Chronic) Z91.19 Ischemic cardiomyopathy (Chronic) I25.5 Acute on chronic systolic (congestive) heart failure I50.23 Restless leg syndrome G25.81 Acute bronchitis (Resolved) J20.9 HCAP (healthcare-associated pneumonia) (Resolved) J18.9 Recent discharge 12/14/17 following treatment for acute on chronic systolic CHF exacerbation, acute COPD exacerbation with acute hypoxic respiratory failure and MRSA HCAP PNA. Hypotension (Resolved) I95.9 MRSA (methicillin resistant Staphylococcus aureus) infection (Resolved) A49.02 Recent discharge 12/14/17 following treatment for acute on chronic systolic CHF exacerbation, acute COPD exacerbation with acute hypoxic respiratory failure and MRSA HCAP PNA. Near syncope (Resolved) R55 Elevated troponin (Inactive) R74.8 Allergies No Known Allergies Allergy (Verified 07/28/18 20:01) Home Medications: Ambulatory Orders Medication Instructions Recorded Albuterol Aerosols [Ventolin 2.5 mg INHALATION Q2H PRN PRN #30 09/26/16 Aerosols] vial.neb. Albuterol Sulfate [Ventolin Hfa] 18 gm IH Q4H PRN PRN #1 hfa.aer.ad 09/26/16 Gabapentin [Neurontin] 600 mg PO DAILY #30 tab 12/14/17 Nitroglycerin [Nitrostat] 0.4 mg SUBLINGUAL Q5M PRN #1 bottle 12/14/17 aspirin 81 mg chewable tablet 81 mg PO DAILY@0800 #30 tab.chew 01/11/18 atorvastatin 80 mg tablet 80 mg PO QHS #30 tab 01/11/18 carvedilol 6.25 mg tablet 6.25 mg PO BID #60 tab 01/11/18 clopidogrel 75 mg tablet 75 mg PO DAILY #30 tab 01/11/18 furosemide 40 mg tablet 40 mg PO DAILY #30 tab 01/11/18 isosorbide mononitrate ER 30 mg 30 mg PO DAILY #30 tab 01/11/18 tablet,extended release 24 hr losartan 25 mg tablet 25 mg PO DAILY #30 tab 01/11/18 potassium chloride ER 20 mEq 20 meq PO DAILY #30 tab 01/11/18 tablet,extended release(part/cryst) ascorbic acid (vitamin C) 500 mg 500 mg PO BIDCM #60 tab 01/15/18 tablet ferrous gluconate 324 mg (37.5 mg 325 mg PO BIDCM #60 tab 01/15/18 iron) tablet Doxycycline Monohydrate 100 mg PO BID #14 cap 07/20/18 Prednisone [Deltasone] 40 mg PO DAILY #10 tab 07/20/18 Doxycycline Monohydrate 100 mg PO BID #14 cap 07/28/18 Surgical History: Surgical History (Last Reviewed 08/03/18 @ 21:34 by Marcus Mi MD) ICD (implantable cardioverter-defibrillator) in place (Chronic) Z95.810 History of coronary artery stent placement (Resolved) Z95.5 PCI-RCA and CX History of coronary artery stent placement Z95.5 [id number] and Cx History of left heart catheterization Onset Date: ~12/14/17 Z98.890 CORONARY ANGIOGRAPHY DOMINANCE: Right Dominant LEFT HEART ASSESSMENT Left Ventricular Ejection Fraction: by LV Gram 10-15 % Global Hypokinesis - Severe Depressed Left Ventricular systolic function Normal Left Ventricular End Diastolic Pressure LEFT MAIN: Non-obstructive LEFT ANTERIOR DECENDING ARTERY: Previously placed stent is patent DIAGONAL 1: Ostial - Mild luminal irregularities less than 30% DIAGONAL 2: Proximal - Non-obstructive CIRCUMFLEX ARTERY: MID CIRC: Previously placed stent is patent RIGHT CORONARY ARTERY: MID RCA: Previously placed stent has instent 20 % restenosis with a new at distal edge of stent Surgical History: - - PCI x 10-11. Psychiatric History: No pertinent psych hx Lives: Alone Smoking Status: Current every day smoker Tobacco Use: Cigarettes Alcohol: Heavy - *Family History Maternal Family History: Family History (Last Reviewed 08/03/18 @ 21:34 by Marcus Mi MD) Father CAD (coronary artery disease) Heart disease Mother CAD (coronary artery disease) Heart disease Aunt Cancer Brother Heart disease Hypertension History Items: Heart Disease Paternal Family History: Family History (Last Reviewed 08/03/18 @ 21:34 by Marcus Mi MD) Father CAD (coronary artery disease) Heart disease Mother CAD (coronary artery disease) Heart disease Aunt Cancer Brother Heart disease Hypertension History Items: Heart Disease Review of Systems Constitutional: Denies: Chills, Fever, Weight Change HEENT: Denies: Head Aches, Sinus Congestion, Sinus Drainage Cardiovascular: Reports: Chest Pain. Denies: Palpitations Respiratory: Reports: Cough, Shortness of breath at rest, Shortness of breath upon exertion, Sputum production Gastrointestinal: Denies: Abdominal Pain, Nausea, Vomiting Genitourinary: Denies: Dysuria Musculoskeletal: Reports: Leg Pain - Right leg. Denies: Joint Pain, Joint Tenderness Skin: Denies: Rash, Wounds Neurological: Denies: Numbness, Tingling, Focal weakness Psychiatric: Denies: Anxiety, Depression, Homicidal Ideations, Suicidal Ideations Hematologic/ Lymphatic: Denies: Easy Bruising, Easy Bleeding VTE Information - Inpt Only VTE Present on Admission: No VTE Mechan Device Prophylaxis: None VTE Pharm Prophylaxis ordered?: Yes - Physical Exam General: Alert, Oriented x3, Cooperative HEENT: Atraumatic, PERRLA, EOMI, Normocephalic Neck: Supple, No JVD, Negative Carotid Bruits Lungs: Diminished, Tachypneic, Using Accessory Muscles, - - Coughing profusely on examination. Cardiovascular: Regular rate Abdomen: Bowel Sounds Present, Soft, Non Tender Extremities: No edema, Capillary Refill Less than 3 Seconds, Tenderness - Right leg Skin: No rashes, No breakdown Musculoskeletal: No Muscle Wasting Neurological: Cranial nerves II-XII grossly intact Psych/Mental Status: Normal Affect, Appropriate Vital Signs Temp Pulse Resp BP Pulse Ox 98.2 F 89 16 123/80 H 99 08/03/18 16:56 08/03/18 20:12 08/03/18 20:12 08/03/18 20:12 08/03/18 20:12 Oxygen Flow Rate (L/min) 2 Oxygen Delivery Method Nasal Cannula Weight: 73.5 kg Body Mass Index (BMI) 24.6 Laboratory Tests Past 24 Hrs 08/03/18 08/03/18 08/03/18 17:00 17:00 17:00 WBC 13.0 H RBC 4.18 L Hgb 12.1 L Hct 37.4 L MCV 89.5 MCH 28.9 MCHC 32.4 RDW 14.1 RDW Differential 46.0 H Plt Count 265 MPV 8.8 Immature Gran % (Auto) 0.100 Neut % (Auto) 85.3 H Lymph % (Auto) 5.9 L [place] % (Auto) 8.3 Eos % (Auto) 0.2 Baso % (Auto) 0.2 Absolute Neuts (auto) 11.1 H Absolute Lymphs (auto) 0.76 L Total Counted Not Reportable D-Dimer Quant (PE/DVT) 0.73 H* Sodium 129 L Potassium 3.8 Chloride 94 L Carbon Dioxide 25.0 Anion Gap 10 BUN 14 Creatinine 0.85 Estim Creat Clear Calc 90.53 Est GFR (MDRD) Af Amer 118 Est GFR (MDRD) Non-Af 97 BUN/Creatinine Ratio 16.4 Glucose 100 Calcium 8.2 L Troponin I 0.036 Assessment/Plan All Active Problems (Last Reviewed 08/03/18 @ 21:34 by Marcus Mi MD) History of coronary artery stent placement (Resolved) Atherosclerosis of coronary artery of [place] heart without angina pectoris (Acute) COPD exacerbation (Acute) Acute respiratory failure with hypoxemia (Acute) NSVT (nonsustained ventricular tachycardia) (Acute) Acute bronchitis (Resolved) HCAP (healthcare-associated pneumonia) (Resolved) Hypotension (Resolved) MRSA (methicillin resistant Staphylococcus aureus) infection (Resolved) Near syncope (Resolved) The patient is a 57 year old M with a significant history of tobacco abuse; alcoholic abuse; moderate to severe COPD; ischemic cardiomyopathy status post ICD, CAD status post stent; ICD who presents with progressively worsening shortness of breath; and chest pain consistent with likely COPD exacerbation. Acute COPD exacerbation Received Solumedrol 125mg at ED. Solu-Medrol 40mg IV every 8 hours. Receive DuoNeb at emergency department; scheduled DuoNeb. As needed albuterol. Mucinex ordered. Incentive spirometer and chest physiotherapy. Oxygen as needed Azithromycin ordered. Counseled to quit smoking. Chest pain Review of old records showed that on 12/14/2017 patient had a cardiac catheterization with Dr. Mak. The cardiac catheterization showed severe depressed left ventricular systolic function; and nonobstructive coronary arteries. At that time recommendation was stress/myocardial perfusion imaging in 2 weeks to evaluate inferior wall; and if inferior ischemia presents the plan was to bring patient back for PCI of RCA. And if negative patient will proceed with ICD. On 12/25/2017 patient had a stress test. . Stress test showed that patient had dilated left ventricle with ejection fraction 24% with segmental wall motion abnormalities involving the anterior apex. . The stress test conclusion was :cardiomyopathy Patient received ICD on 01/10/2018. Admit to a monitored bed on PCU CXR independently reviewed confirms confirms stable cardiomegaly with hyperinflation of lungs EKG independently reviewed confirms T wave inversions in lead V1, V2, V4, V5 and V6; but this was unchanged from EKG in July 2018. Received aspirin 324 mg at emergency department. Dual antiplatelet therapy of aspirin 81 mg daily and Plavix was continued. SL NTG 0.4 mg prn as needed for chest pain Troponin at emergency department was negative. We will cycle troponins. Stat EKG as needed for chest pain No stress test to at this time. His chest pain could be due to his COPD exacerbation. If concerns exist recommend to discuss with cardiology. We will continue Lipitor; Imdur; losartan and carvedilol. Alcohol abuse Patient placed on stroke protocol with thiamine, folic acid and multivitamins. Ativan as needed Noted to have hyponatremia that may be due to beer griselda Counseled. Hyponatremia Sodium on admission was 129L. Likely due to beer potomania Counseled to quit drinking. Trend BMP Hypochloremia Chloride on admission was 94L See hyponatremia above. Tobacco abuse Counselled. Refused nicotine patch. Inpatient consult smoking cessation. Right leg pain. Patient complained of left leg pain. He had elevated d-dimer with a CTA unremarkable for PE. Duplex ultrasound of legs ordered to rule out DVT. Ischemic cardiomyopathy ICD in place Continue Lasix with potassium. losartan and carvedilol continued. Miscellaneous: Case management for placement after discharge. DVT prophylaxis Subcutaneous Lovenox ordered. Code Visit OBSV E&M: 50635 Initial observation care L3
[2018-08-03] MEDS: MethylPREDNISolone 125 MG/2 ML Vial IV (20:45)
--- NOTE | 2018-08-03 21:18 | EKG12_ITS ---
Test Reason : ADM EKG Blood Pressure : / mmHG Vent. Rate : 088 BPM Atrial Rate : 088 BPM P-R Int : 208 ms QRS Dur : 102 ms QT Int : 424 ms P-R-T Axes : 080 -44 121 degrees QTc Int : 513 ms Normal sinus rhythm Possible Left atrial enlargement Left axis deviation Septal infarct , age undetermined ST & T wave abnormality, consider lateral ischemia Prolonged QT Abnormal ECG Confirmed by PRETTY BARLOW, HIRA ([id number]), assignment editor AMADOR EDMONDS ([id number]) on 08/08/2018 4:06:38 PM Referred By: ARTEMIO Confirmed By:HIRA OLSEN MD
[2018-08-03] MEDS: Carvedilol 6.25 MG Tablet PO (21:56)
[2018-08-03] MEDS: Atorvastatin Calcium 80 MG Tablet PO (21:56)
[2018-08-03] MEDS: guaiFENesin 1,200 MG Tablet 1200 MG PO (21:56)
[2018-08-03] MEDS: 0.9% NaCl Peripheral Flush Adult/Peds IV (22:00)
[2018-08-03 22:24] LABS: Alcohol, Blood (Medical)-Serum < 3.0 mg/dL
[2018-08-04] VITALS (22 sets, daily range): BP systolic 108–138; BP diastolic 53–74; PULSE 74–100; RESP 12–22; TEMP 36.4–36.7; O2SAT 94–98
[2018-08-04] MEDS: Ipratropium/Albuterol Sulfate 3 ML AMPUL.NEB INHALATION ×6 (01:14→23:28)
--- NOTE | 2018-08-04 01:20 | NURSING ---
Patient stated the last time he was here that his dentures went missing. They were not present on admission. Present on admission: Wallet - had $503 dollars and patient refused to lock in safe. It is in the beside table which the patient was aware of and asked for it to be there. He also had an unscratched lotto ticket. A liquefier. A wad of papers with phone numbers. A half a pack of cigarettes. Educated on quitting. Declined. He had a liquefier. He also had some change. All of which were put in a patient bag in the closet. With his pants, socks, shirt, shoes, and coat. Pt did not have glasses or dentures on admission.
[2018-08-04 03:26] LABS: Absolute Lymphocyte Count 0.34 X10^3/ul (0.83-4.51); Absolute Neutrophil Count 9.9 X10^3/uL (2.0-7.7); Basophil# 0.01 X10^3/uL; Basophil% 0.1 % (0-1); Hematocrit 37.7 % (40-54); Hemoglobin 12.6 g/dl (13.0-16.5); Lymphocyte # 0.34 X10^3/ul (4.0); Lymphocyte % 3.3 % (19-41); Mean Corp Hgb Conc 33.4 g/gl (32-36); Mean Corpuscular Hgb 30.4 pg (27.0-32.0); Mean Corpuscular Volume 90.8 fL (80-94); Mean Platelet Vol. 9.1 fl (6.2-12.0); Monocyte# 0.11 X10^3/uL; Monocyte% 1.1 % (0-10); Neutrophil # 9.89 X10^3/uL (2.7-7.7); Neutrophil % 95.3 % (47-70); Platelet Count 275 K/mm3 (150-450); RBC Distribution Width CV 14.6 % (11.6-14.6); RBC Distribution Width SD 47.1 fl (35.1-43.9); Red Blood Count 4.15 M/mm3 (4.6-6.2); White Blood Count 10.4 K/mm3 (4.4-11.0)
[2018-08-04 03:27] LABS: Differential Indicated SCAN CRITERIA MET; POSITIVE COUNT NO; POSITIVE DIFFERENTIAL YES; POSITIVE MORPHOLOGY NO
[2018-08-04 04:21] LABS: Anion Gap 7 (5-15); BUN 14 mg/dL (7-18); BUN/Creat Ratio 17.4 RATIO (10-20); Calcium,Total 8.5 mg/dL (8.5-10.1); Chloride 101 mmol/L (98-107); Creatinine, Serum 0.81 mg/dL (0.70-1.30); EST Glomerular Filtration Rate 104 mL/min (>60); Est Glom Filt Rate - Afr Amer 126 mL/min (>60); Estimated Creatinine Clearance 93.61 ml/min; Glucose 145 mg/dL (74-106); Potassium 4.4 mmol/L (3.5-5.1); Sodium Level 135 mmol/L (136-145)
[2018-08-04] MEDS: 0.9% NaCl Peripheral Flush Adult/Peds IV ×2 (05:07→21:23)
--- NOTE | 2018-08-04 07:29 | PCM.PN.HOSP ---
Subjective: Patient was seen and examined. Denies any worsening SOB, chest pain, or feve Vitals/I&O's: Vital Signs Temp Pulse Resp BP Pulse Ox 97.5 F L 80 16 117/73 98 08/04/18 05:07 08/04/18 07:06 08/04/18 05:07 08/04/18 05:07 08/04/18 05:07 Oxygen Flow Rate (L/min) 2 Oxygen Delivery Method Room Air Weight: 67.4 kg Body Mass Index (BMI) 22.6 Intake and Output for Last 24 Hours 08/02/18 08/03/18 08/04/18 23:59 23:59 22:59 Intake Total 651 / 651 Output Total 0 / 0 Balance 651 / 651 General: Alert, Oriented x3, Cooperative, No apparent distress, - - in mild respiratory dstress HEENT: Atraumatic, PERRLA, EOMI, Normocephalic Neck: Supple, No JVD, Negative Carotid Bruits Lungs: Diminished Cardiovascular: Regular rate, Regular Rhythm, Normal S1, Normal S2, No murmurs Abdomen: Bowel Sounds Present, Soft, Non Tender, Non-Distended, No Hepato-splenomegaly Extremities: No edema Skin: No rashes, No breakdown Musculoskeletal: No Tenderness to Palpation of Joints or Extremities Lymphatic: No Cervical, Supraclavicular, or Inguinal Adenopathy Neurological: Cranial nerves II-XII grossly intact, Neuro grossly intact Psych/Mental Status: Normal Affect, Appropriate Laboratory Results 08/03/18 17:00: WBC 13.0 H, RBC 4.18 L, Hgb 12.1 L, Hct 37.4 L, MCV 89.5, MCH 28.9, MCHC 32.4, RDW 14.1, RDW Differential 46.0 H, Plt Count 265, MPV 8.8, Immature Gran % (Auto) 0.100, Neut % (Auto) 85.3 H, Lymph % (Auto) 5.9 L, [place] % (Auto) 8.3, Eos % (Auto) 0.2, Baso % (Auto) 0.2, Absolute Neuts (auto) 11.1 H, Absolute Lymphs (auto) 0.76 L, Total Counted Not Reportable 08/03/18 17:00: D-Dimer Quant (PE/DVT) 0.73 H* 08/03/18 17:00: Sodium 129 L, Potassium 3.8, Chloride 94 L, Carbon Dioxide 25.0, Anion Gap 10, BUN 14, Creatinine 0.85, Estim Creat Clear Calc 90.53, Est GFR (MDRD) Af Amer 118, Est GFR (MDRD) Non-Af 97, BUN/Creatinine Ratio 16.4, Glucose 100, Calcium 8.2 L, Troponin I 0.036 08/03/18 21:30: Ethyl Alcohol < 3.0 08/03/18 21:30: Troponin I 0.032 08/04/18 00:48: Troponin I 0.028 08/04/18 02:46: WBC 10.4, RBC 4.15 L, Hgb 12.6 L, Hct 37.7 L, MCV 90.8, MCH 30.4, MCHC 33.4, RDW 14.6, RDW Differential 47.1 H, Plt Count 275, MPV 9.1, Immature Gran % (Auto) 0.200, Neut % (Auto) 95.3 H, Lymph % (Auto) 3.3 L, [place] % (Auto) 1.1, Eos % (Auto) 0.0, Baso % (Auto) 0.1, Absolute Neuts (auto) 9.9 H, Absolute Lymphs (auto) 0.34 L, Total Counted Not Reportable 08/04/18 02:46: Sodium 135 L, Potassium 4.4, Chloride 101, Carbon Dioxide 27.0, Anion Gap 7, BUN 14, Creatinine 0.81, Estim Creat Clear Calc 93.61, Est GFR (MDRD) Af Amer 126, Est GFR (MDRD) Non-Af 104, BUN/Creatinine Ratio 17.4, Glucose 145 H, Calcium 8.5 08/04/18 02:46: Troponin I 0.022 Current Medications Acetaminophen (Tylenol) 650 mg PO Q6H PRN PRN PRN Reason: Mild Pain (scale 0-3)/T>100.7 Albuterol Sulfate (Ventolin Aerosols) 2.5 mg INHALATION Q2H PRN PRN PRN Reason: SHORTNESS OF BREATH Albuterol/Ipratropium (Duoneb) 3 ml INHALATION Q4H.RT SHELL Last Admin: 08/04/18 04:00 Dose: Not Given Aspirin (Aspirin, Baby) 81 mg PO DAILY@0800 [facility] Atorvastatin Calcium (Lipitor) 80 mg PO QHS [facility] Last Admin: 08/03/18 21:56 Dose: 80 mg Bisacodyl (Dulcolax) 5 mg PO DAILY PRN PRN PRN Reason: Constipation Carvedilol (Coreg) 6.25 mg PO BID [facility] Last Admin: 08/03/18 21:56 Dose: 6.25 mg Clopidogrel Bisulfate (Plavix) 75 mg PO DAILY [facility] Enoxaparin Sodium (Lovenox) 40 mg SC DAILY@1000 [facility] Ferrous [facility]conate ([facility]ous [facility]conate) [facility] Folic Acid (Folic Acid) 1 mg PO DAILY@0800 [facility] Stop: 08/06/18 08:01 Furosemide (Lasix) 40 mg PO DAILY [facility] Guaifenesin (Mucinex) 1,200 mg PO BID [facility] Last Admin: 08/03/18 21:56 Dose: 1,200 mg Azithromycin 500 mg/ Dextrose 255 mls @ 250 mls/hr IV Q24@2200 [facility] Stop: 08/05/18 23:02 Last Admin: 08/03/18 21:56 Dose: 250 mls/hr Isosorbide Mononitrate (Imdur) 30 mg PO DAILY@1900 [facility] Lorazepam (Ativan) 2 mg PO Q2H PRN PRN; Protocol PRN Reason: CIWA score > 8 but <15 Lorazepam (Ativan) 2 mg PO UD PRN; Protocol PRN Reason: CIWA score >/=15. Lorazepam (Ativan) 2 mg IV Q2H PRN PRN; Protocol PRN Reason: CIWA score > 8 but <15 Lorazepam (Ativan) 2 mg IV UD PRN; Protocol PRN Reason: CIWA score >/=15. Losartan Potassium (Cozaar) 25 mg PO DAILY [facility] Magnesium Hydroxide (Milk Of Magnesia) 30 ml PO DAILY PRN PRN Reason: Constipation Methylprednisolone (Solu-Medrol) 40 mg IV Q8 [facility] Last Admin: 08/04/18 05:07 Dose: 40 mg Multivitamins/Minerals (Multivitamin With Minerals) [facility] Nitroglycerin (Nitrostat) 0.4 mg SUBLINGUAL Q5M PRN PRN Reason: CHEST PAIN Nutritional Formula (Lactose Free) (Ensure Enlive) 120 ml PO 4X/DAY [facility] Last Admin: 11/03/18 22:02 Dose: 120 ml Ondansetron HCl (Zofran) 4 mg IV Q8H PRN PRN PRN Reason: Nausea Potassium Chloride (K-Dur) 20 meq PO DAILYCM [facility] Sodium Chloride () 5 - 30 ml IV UD PRN PRN Reason: SALINE FLUSH Last Admin: 08/04/18 05:07 Dose: 10 ml Thiamine HCl (Vitamin B1) 100 mg PO BIDCM [facility] Stop: 08/06/18 17:01 Medical Necessity - Tobacco Use Smoking Status: Current every day smoker Tobacco Use: Cigarettes Assessment/Plan All Active Problems (Last Reviewed 08/03/18 @ 21:34 by Marcus Mi MD) History of coronary artery stent placement (Resolved) Atherosclerosis of coronary artery of [place] heart without angina pectoris (Acute) COPD exacerbation (Acute) Acute respiratory failure with hypoxemia (Acute) NSVT (nonsustained ventricular tachycardia) (Acute) Acute bronchitis (Resolved) HCAP (healthcare-associated pneumonia) (Resolved) Hypotension (Resolved) MRSA (methicillin resistant Staphylococcus aureus) infection (Resolved) Near syncope (Resolved) 57 year old M with past medical history of nicotine dependency, alcoholic abuse, moderate to severe COPD, CAD status post stent, ICD admitted with progressive shortness of breath. 1. Acute respiratory insufficency secondary to acute COPD exacerbation, resolved, will still encourage incentive spirometer 2. Acute COPD exacerbation, improving on Solumedrol, breathing treatments, Azithromycin. 3. Polysubstance use - nicotine, alcohol use dependency, continue on withdrawal protocols. 4. Hyponatremia, improved, labs in am 5. CAD s/p stents, ICD 6. DVT PPx- Lovenox SC. Code Visit Inpatient E&M: 51807 Subs Hosp L2
--- NOTE | 2018-08-04 07:56 | CPS ---
Pt. refused teaching on IS and PEP device, said he was to SOB to do these devices at the moment. Breathing Tx was given. Will ask will encourage pt. to do exercises with next tx.
[2018-08-04] MEDS: Ferrous Gluconate 324 MG Tablet PO ×2 (08:53→16:06)
[2018-08-04] MEDS: Clopidogrel Bisulfate 75 MG Tablet PO (08:53)
[2018-08-04] MEDS: Carvedilol 6.25 MG Tablet PO ×2 (08:53→21:23)
[2018-08-04] MEDS: Aspirin 81 MG TAB.CHEW PO (08:53)
[2018-08-04] MEDS: Folic Acid 1 MG Tablet PO (08:53)
[2018-08-04] MEDS: Multivitamins,Ther W-Minerals Tablet 1 TABLET PO (08:53)
[2018-08-04] MEDS: Furosemide 40 MG Tablet PO (08:53)
[2018-08-04] MEDS: Thiamine Hydrochloride 100 MG Tablet PO ×2 (08:53→16:06)
[2018-08-04] MEDS: Losartan Potassium 25 MG Tablet PO (08:53)
[2018-08-04] MEDS: guaiFENesin 1,200 MG Tablet 1200 MG PO ×2 (08:54→21:24)
--- NOTE | 2018-08-04 13:21 | CPS ---
Stopped in pts. room @ 13:20 and offered training on breathing device exercise (PEP, IS). Pt. declined instruction again. Pt. aware of the benefits of doing the exercises. Will try to encourage pt. to do exercises with @1500 tx.
[2018-08-04] MEDS: Isosorbide Mononitrate 30 MG Tablet PO (16:06)
--- NOTE | 2018-08-04 17:07 | CPS ---
Did IS teaching with pt. Pt. understands education on device and performed 4 breaths on IS with good effort. Did 2 more breaths and pt. reported have being agitated to exercise. Coughing was shown and pt. reported being SOB. D/Cing IS due to pt. agitation and refuse to do exercise after event.
[2018-08-04] MEDS: Atorvastatin Calcium 80 MG Tablet PO (21:23)
[2018-08-05 03:00] VITALS: BP 116/62; PULSE 85; PULSE 90; RESP 14; TEMP 36.1; O2SAT 98
[2018-08-05] MEDS: 0.9% NaCl Peripheral Flush Adult/Peds IV (05:25)
[2018-08-05 06:32] LABS: Anion Gap 8 (5-15); BUN 18 mg/dL (7-18); BUN/Creat Ratio 24.8 RATIO (10-20); Chloride 103 mmol/L (98-107); Creatinine, Serum 0.72 mg/dL (0.70-1.30); EST Glomerular Filtration Rate 118 mL/min (>60); Est Glom Filt Rate - Afr Amer 142 mL/min (>60); Estimated Creatinine Clearance 105.31 ml/min; Glucose 199 mg/dL (74-106); Potassium 4.2 mmol/L (3.5-5.1); Sodium Level 137 mmol/L (136-145)
[2018-08-05 06:50] LABS: Absolute Lymphocyte Count 0.58 X10^3/ul (0.83-4.51); Absolute Neutrophil Count 13.3 X10^3/uL (2.0-7.7); Hematocrit 32.7 % (40-54); Hemoglobin 10.5 g/dl (13.0-16.5); Lymphocyte # 0.58 X10^3/ul (4.0); Lymphocyte % 4.1 % (19-41); Mean Corp Hgb Conc 32.1 g/gl (32-36); Mean Corpuscular Hgb 29.7 pg (27.0-32.0); Mean Corpuscular Volume 92.6 fL (80-94); Monocyte# 0.39 X10^3/uL; Monocyte% 2.7 % (0-10); Neutrophil % 93.1 % (47-70); Platelet Count 251 K/mm3 (150-450); RBC Distribution Width CV 14.9 % (11.6-14.6); RBC Distribution Width SD 49.9 fl (35.1-43.9); Red Blood Count 3.53 M/mm3 (4.6-6.2); White Blood Count 14.3 K/mm3 (4.4-11.0)
[2018-08-05 06:55] LABS: Differential Indicated SCAN CRITERIA MET; POSITIVE COUNT NO; POSITIVE DIFFERENTIAL YES; POSITIVE MORPHOLOGY NO
[2018-08-05 07:03] LABS: Differential Comment SCANNED
[2018-08-05 07:21] VITALS: PULSE 102
[2018-08-05] MEDS: Folic Acid 1 MG Tablet PO (08:18)
[2018-08-05] MEDS: Aspirin 81 MG TAB.CHEW PO (08:18)
[2018-08-05] MEDS: Ferrous Gluconate 324 MG Tablet PO (08:18)
[2018-08-05] MEDS: Losartan Potassium 25 MG Tablet PO (08:19)
[2018-08-05] MEDS: Multivitamins,Ther W-Minerals Tablet 1 TABLET PO (08:19)
[2018-08-05] MEDS: Furosemide 40 MG Tablet PO (08:19)
[2018-08-05] MEDS: Carvedilol 6.25 MG Tablet PO (08:19)
[2018-08-05] MEDS: Thiamine Hydrochloride 100 MG Tablet PO (08:19)
[2018-08-05] MEDS: Clopidogrel Bisulfate 75 MG Tablet PO (08:20)
[2018-08-05] MEDS: guaiFENesin 1,200 MG Tablet 1200 MG PO (08:20)
[2018-08-05 08:25] VITALS: BP 148/67; PULSE 98; RESP 18; TEMP 36.6; O2SAT 98
--- NOTE | 2018-08-05 09:24 | DCINST_ITS ---
You will use the following diet at home:: No restrictions Your food should be the consistency of: Regular Your liquids should be the consistency of: Regular/Thin Discharge Activity: Return to Normal Activity Weight Bearing Status: Full weight bearing Additional Instructions: DO NOT SMOKE Allergies/Adverse Reactions: Allergies No Known Allergies Allergy (Verified 07/28/18 20:01) Medications to take at Discharge Gabapentin [Neurontin] 600 mg PO DAILY #30 tab 12/14/17 Nitroglycerin [Nitrostat] 0.4 mg SUBLINGUAL Q5M PRN #1 bottle 12/14/17 aspirin 81 mg chewable tablet 81 mg PO DAILY@0800 #30 tab.chew 01/11/18 atorvastatin 80 mg tablet 80 mg PO QHS #30 tab 01/11/18 carvedilol 6.25 mg tablet 6.25 mg PO BID #60 tab 01/11/18 clopidogrel 75 mg tablet 75 mg PO DAILY #30 tab 01/11/18 furosemide 40 mg tablet 40 mg PO DAILY #30 tab 01/11/18 isosorbide mononitrate ER 30 mg tablet,extended release 24 hr 30 mg PO DAILY #30 tab 01/11/18 losartan 25 mg tablet 25 mg PO DAILY #30 tab 01/11/18 potassium chloride ER 20 mEq tablet,extended release(part/cryst) 20 meq PO DAILY #30 tab 01/11/18 ferrous gluconate 324 mg (37.5 mg iron) tablet 325 mg PO BIDCM #60 tab 01/15/18 Acetaminophen [Tylenol Tablet] 650 mg PO Q6H PRN PRN tablet 08/05/18 Albuterol Sulfate [Ventolin Hfa] 18 gm IH [id number] PRN #1 hfa.aer.ad 08/05/18 Azithromycin [Zithromax] 250 mg PO DAILY #14 tablet 08/05/18 Prednisone 10 mg PO UD #30 tab 08/05/18 The following prescriptions were given: Azithromycin [Zithromax] 250 mg PO DAILY #14 tablet Prednisone 10 mg PO UD #30 tab Albuterol Sulfate [Ventolin Hfa] 18 gm IH [id number] PRN #1 hfa.aer.ad PRN Reason: Sob &/Or Wheezing Primary Care Physician: Berna Oquendo NP-C [Primary Care Provider] - Please follow up with your Primary Care Physician in: IN ONE WEEK Test Results: Test results from this visit will be discussed in further detail at your follow- up appointment, if applicable.
--- NOTE | 2018-08-07 09:53 | DS.PCM_ITS ---
Discharge Date and Diagnosis Date of Admission: 08/03/18 Date of Discharge: 08/05/18 - Primary Discharge Diagnosis #1 acute exacerbation of COPD #2 nonischemic cardiomyopathy #3 hyponatremia-etiology unknown #4 pulmonary fibrosis #5 iron deficiency anemia - Secondary Discharge Diagnosis Chronic Problems (Last Reviewed 08/03/18 @ 21:34 by Marcus Mi MD) ICD (implantable cardioverter-defibrillator) in place (Chronic) Iron deficiency anemia (Chronic) COPD (chronic obstructive pulmonary disease) (Chronic) Tobacco abuse (Chronic) Medical non-compliance (Chronic) Ischemic cardiomyopathy (Chronic) Hospital Course and Treatment Operations: None Summary of Care Provided: The patient is a 57 year old M who was seen in the emergency room at [facility] with a chief complaint of shortness of breath along with precordial chest pain. Workup in the emergency room included labs which showed an elevated d-dimer, troponin was 0.036, sodium was low at 129, hemoglobin was 12.1. Patient had a CT of the chest which showed no PE but moderate to severe fibrotic COPD. Room air pulse ox was not obtained. Patient was placed into observation status on PCU for exacerbation of COPD, he was given IV Solu-Medrol and aerosol treatments, his oxygen was weaned off. Patient's sodium was monitored and was normal at the time of discharge. Troponins were cycled and remained negative. On 08/05/18, patient was seen and examined: On examination he appeared in good health and spirits. Vital signs as documented. Skin warm and dry and without overt rashes. Neck without JVD. Lungs-breath sounds are distant bilaterally, no rales rhonchi or wheezes. Heart exam notable for regular rhythm, normal sounds and absence of murmurs, rubs or gallops. Abdomen unremarkable and without evidence of organomegaly, masses, or abdominal aortic enlargement. Extremities nonedematous. Patient was felt to be in stable condition for discharge home. - Physical Exam Vital Signs Temp Pulse Resp BP Pulse Ox 97.9 F 98 18 148/67 H 98 08/05/18 08:25 08/05/18 08:25 08/05/18 08:25 08/05/18 08:25 08/05/18 08:25 Oxygen Flow Rate (L/min) 2 Oxygen Delivery Method Nasal Cannula Weight: 67.4 kg Body Mass Index (BMI) 22.6 Intake and Output for Last 24 Hours 08/05/18 08/06/18 08/07/18 23:59 23:59 23:59 Intake Total 1201 / 1201 Balance 1201 / 1201 Discharge Activity: Return to Normal Activity Weight Bearing Status: Full weight bearing Home Medications: Medications to take at Discharge Gabapentin [Neurontin] 600 mg PO DAILY #30 tab 12/14/17 Nitroglycerin [Nitrostat] 0.4 mg SUBLINGUAL Q5M PRN #1 bottle 12/14/17 aspirin 81 mg chewable tablet 81 mg PO DAILY@0800 #30 tab.chew 01/11/18 atorvastatin 80 mg tablet 80 mg PO QHS #30 tab 01/11/18 carvedilol 6.25 mg tablet 6.25 mg PO BID #60 tab 01/11/18 clopidogrel 75 mg tablet 75 mg PO DAILY #30 tab 01/11/18 furosemide 40 mg tablet 40 mg PO DAILY #30 tab 01/11/18 isosorbide mononitrate ER 30 mg tablet,extended release 24 hr 30 mg PO DAILY #30 tab 01/11/18 losartan 25 mg tablet 25 mg PO DAILY #30 tab 01/11/18 potassium chloride ER 20 mEq tablet,extended release(part/cryst) 20 meq PO DAILY #30 tab 01/11/18 ferrous gluconate 324 mg (37.5 mg iron) tablet 325 mg PO BIDCM #60 tab 01/15/18 Acetaminophen [Tylenol Tablet] 650 mg PO Q6H PRN PRN tablet 08/05/18 Albuterol Sulfate [Ventolin Hfa] 18 gm IH [id number] PRN #1 hfa.aer.ad 08/05/18 Azithromycin [Zithromax] 250 mg PO DAILY #14 tablet 08/05/18 Prednisone 10 mg PO UD #30 tab 08/05/18 Following Prescrptions Were Given to Patient: Azithromycin [Zithromax] 250 mg PO DAILY #14 tablet Prednisone 10 mg PO UD #30 tab Albuterol Sulfate [Ventolin Hfa] 18 gm IH [id number] PRN #1 hfa.aer.ad PRN Reason: Sob &/Or Wheezing Primary Care Physician: Berna Oquendo NP-C [Primary Care Provider] - Please follow up with your Primary Care Physician in: IN ONE WEEK Please Follow Up With: Berna Oquendo NP-C Disposition: Home Minutes spent on discharge:: 28 Patient Condition:: Stable Medical Necessity - Tobacco Use Smoking Status: Current every day smoker Tobacco Use: Cigarettes Meaningful Use Info Meaningful Use Diagnoses (Choose all that apply): None applicable Code Visit OBSV E&M: 14633 Observation care discharge
== END 2018-08-05 09:23 | disposition home or self-care (01) ==
LOC: ED 17:42 → PCU 20:59
PROVIDERS: Internal Medicine; Admitting Provider Hospitalist; Emergency Provider Emergency Medicine; Family Provider Nurse Practitioner Family; PCP Nurse Practitioner Family; Visit Provider Internal Medicine
DX: J44.1 Chronic obstructive pulmonary disease with (acute) exacerbation (principal); I42.9 Cardiomyopathy, unspecified; E87.1 Hypo-osmolality and hyponatremia; J84.10 Pulmonary fibrosis, unspecified; D50.9 Iron deficiency anemia, unspecified; I25.10 Atherosclerotic heart disease of native coronary artery without angina pectoris; Z95.810 Presence of automatic (implantable) cardiac defibrillator; Z95.5 Presence of coronary angioplasty implant and graft; Z86.14 Personal history of Methicillin resistant Staphylococcus aureus infection; I50.22 Chronic systolic (congestive) heart failure; R20.0 Anesthesia of skin; Z99.81 Dependence on supplemental oxygen; Z91.19 Patient's noncompliance with other medical treatment and regimen; Z79.899 Other long term (current) drug therapy; Z79.02 Long term (current) use of antithrombotics/antiplatelets; F17.210 Nicotine dependence, cigarettes, uncomplicated; F10.10 Alcohol abuse, uncomplicated
CPT/HCPCS: 36415; 71045; 71275; 80048; 80320; 84484; 85025; 85379; 93005; 94640; 94667; 96365; 96366; 96375; 96376; 97167; 97802; 99218; 99251; 99285; 99406; J7030; J7040; Q9967; A4216; G0378; G0463; G0480; J2405

== ENCOUNTER 2018-08-15 01:57 | Observation (INO) | payer MEDICARE, SELFPAY ==
[2018-08-15] VITALS (20 sets, daily range): BP systolic 111–166; BP diastolic 66–107; PULSE 89–110; RESP 11–40; TEMP 36.4–37.1; O2SAT 96–100; BMI 25.2; BMI 23.9
--- NOTE | 2018-08-15 02:05 | EKG12_ITS ---
Test Reason : SOB Blood Pressure : / mmHG Vent. Rate : 097 BPM Atrial Rate : 097 BPM P-R Int : 198 ms QRS Dur : 100 ms QT Int : 378 ms P-R-T Axes : 085 -56 097 degrees QTc Int : 480 ms Normal sinus rhythm Possible Left atrial enlargement Left anterior fascicular block Septal infarct , age undetermined ST & T wave abnormality, consider lateral ischemia Abnormal ECG Confirmed by PRETTY BARLOW, HIRA ([id number]), food editor AMADOR EDMONDS ([id number]) on 08/16/2018 3:44:32 PM Referred By: DR KAMARA Confirmed By:HIRA OLSEN MD
--- NOTE | 2018-08-15 02:05 | RAD_ITS ---
STUDY: X-RAY CHEST REASON FOR EXAM: Male, 57 years old. Increased shortness of breath. History of COPD. TECHNIQUE: 2 AP portable chest were obtained. COMPARISON: CTA chest 08/03/2018. FINDINGS: There is chronic interstitial prominence in the lungs, most prominent in the lung bases. There is no demonstrated acute pulmonary infiltrate. There is no demonstrated pleural abnormality. There is mild cardiac enlargement. There is a ventricular pacemaker. Normal mediastinum and alberto. Normal visualized pulmonary arteries. There is atherosclerotic calcification of the aortic arch with tortuosity. There are multilevel degenerative changes of the visualized thoracic spine. Normal visualized ribs, clavicles, and shoulders. There is no demonstrated abnormality of the visualized soft tissue structures of the upper abdomen. RAD/Chest 1 View (Portable) IMPRESSION: Chronic interstitial changes. Mild cardiomegaly. Pacemaker. No evidence for acute cardiopulmonary pathology. Electronically Signed: Trey Roman MD at 2:59 EST , Service support ,
--- NOTE | 2018-08-15 02:06 | ED.VISSUMM ---
- ER Visit Summary Date of Service: 08/15/18 Chief Complaint: Shortness of breath History of Present Illness: The patient is a 57 M with 2-3 hours of significant shortness of breath brought in by paramedics. No recent fever or chills. He has a cough which is chronic. He has COPD and continues to smoke. He has an extensive cardiac history. Physical Examination: Initially he is on a CPAP machine appears in respiratory distress but able to speak. Slightly dry mucous membranes, no obvious facial deformity No C-spine tenderness supple neck. Regular rate and rhythm without any obvious murmurs Patient has diminished breath sounds with wheezing, he has tachypneic able to speak in 3-4 word sentences. Abdomen soft and nontender no guarding or rebound Moves all extremities without any difficulty or pain. Skin does not show any obvious rashes or lesions, no trauma. Alert oriented ?3 with no gross focal deficit Emergency Department Course and Treatment: Patient was given nebulizers, steroids. His x-rays unremarkable there is no evidence of pneumonia. He has a chronic cough which has not changed, thus I do not believe he meets criteria for antibiotics. He has a chronic troponin leak and his natruretic peptide was elevated, however this is chronic also. His lungs and his physical exam did not support fluid overload status. I will admit him to the hospital for COPD management. Disposition: Admit in guarded condition Impression: COPD exacerbation This note was generated with [employer] dictation software. It may contain incorrect words, spelling, and punctuation that were not noted in review of the chart prior to signing ED Disposition - Plan for ED Patient: Chief Complaint: Shortness of Breath Referrals: Berna Oquendo, DANA-C [Primary Care Provider] -
[2018-08-15] MEDS: MethylPREDNISolone 125 MG/2 ML Vial IV (02:11)
[2018-08-15] MEDS: Albuterol 2.5 MG/3 ML VIAL.NEB. INHALATION (02:13)
[2018-08-15] MEDS: Ipratropium/Albuterol Sulfate 3 ML AMPUL.NEB INHALATION ×6 (02:14→22:46)
[2018-08-15 02:21] LABS: Absolute Lymphocyte Count 1.31 X10^3/ul (0.83-4.51); Absolute Neutrophil Count 4.9 X10^3/uL (2.0-7.7); Basophil# 0.07 X10^3/uL; Eosinophil# 0.06 X10^3/uL; Eosinophils% 0.9 % (0-5); Hematocrit 36.2 % (40-54); Hemoglobin 11.5 g/dl (13.0-16.5); Lymphocyte # 1.31 X10^3/ul (4.0); Mean Corp Hgb Conc 31.8 g/gl (32-36); Mean Corpuscular Hgb 29.4 pg (27.0-32.0); Mean Corpuscular Volume 92.6 fL (80-94); Mean Platelet Vol. 9.3 fl (6.2-12.0); Monocyte# 0.59 X10^3/uL; Monocyte% 8.5 % (0-10); Neutrophil # 4.86 X10^3/uL (2.7-7.7); Neutrophil % 70.3 % (47-70); Platelet Count 196 K/mm3 (150-450); RBC Distribution Width CV 14.7 % (11.6-14.6); RBC Distribution Width SD 49.1 fl (35.1-43.9); Red Blood Count 3.91 M/mm3 (4.6-6.2); White Blood Count 6.9 K/mm3 (4.4-11.0)
[2018-08-15 02:31] LABS: Allen Test POS; Base Excess -2 mmol/L (-2 to +2); Bicarbonate 21.9 mmol/L (22-26); Blood Gas Specimen Type ART; O2 Delivery Device NRB Mask; PO2 205 mmHG (75-100); SITE R Radial; SO2 100 % (95-99); Time Given 218; Total Carbon Dioxide 23 mmol/L; pCO2 32.2 mmHg (35-45); pH 7.44 (7.35-7.45)
[2018-08-15 02:34] LABS: Anion Gap 7 (5-15); BUN 14 mg/dL (7-18); BUN/Creat Ratio 16.8 RATIO (10-20); Chloride 98 mmol/L (98-107); Creatinine, Serum 0.83 mg/dL (0.70-1.30); EST Glomerular Filtration Rate 100 mL/min (>60); Est Glom Filt Rate - Afr Amer 121 mL/min (>60); Estimated Creatinine Clearance 92.71 ml/min; Glucose 88 mg/dL (74-106); Potassium 4.7 mmol/L (3.5-5.1); Sodium Level 130 mmol/L (136-145)
[2018-08-15 02:46] LABS: BNP,B-Type NATRIURETIC PEPTIDE 1428.8 pg/mL (0-100)
--- NOTE | 2018-08-15 03:14 | NURSING ---
PATIENT IS SLEEPING SOUNDLY AND SNORING CURRENTLY. BREATHING EASILY O2 SATS AT 100% ON 4L.
[2018-08-15 03:49] LABS: POSITIVE COUNT NO; POSITIVE DIFFERENTIAL NO; POSITIVE MORPHOLOGY NO
--- NOTE | 2018-08-15 04:27 | PCM.HP.STD ---
Problem List (1) COPD exacerbation Status: Acute Comment: Recent discharge 12/14/17 following treatment for acute on chronic systolic CHF exacerbation, acute COPD exacerbation with acute hypoxic respiratory failure and MRSA HCAP PNA. History of Present Illness Date of Admission: 08/15/18 Chief Complaint: shortness of breath The patient is a 57 year old M with a significant history of tobacco abuse; COPD with home oxygen use, ischemic cardiomyopathy, CAD status post stent; ICD who presents with progressively worsening shortness of breath that started two prior to presentation. Associated with his symptoms is wheezing and productive cough of thick yellow sputum; and wheezing. The emergency department patient was initially on CPAP and he was transitioned to nonrebreather mask and then to nasal cannula oxygen. He received Solu-Medrol and breathing treatments at the emergency department. Past Medical History Past Medical History (Chronic Problems): Chronic Problems (Last Updated 08/07/18 @ 09:53 by Julián Armenta DO) Non-ischemic cardiomyopathy (Chronic) ICD (implantable cardioverter-defibrillator) in place (Chronic) Iron deficiency anemia (Chronic) COPD (chronic obstructive pulmonary disease) (Chronic) Tobacco abuse (Chronic) Medical non-compliance (Chronic) Medical History: Medical History (Last Reviewed 08/15/18 @ 05:19 by Marcus Mi MD) Non-ischemic cardiomyopathy (Chronic) I42.8 Atherosclerosis of coronary artery of [place] heart without angina pectoris (Acute) I25.10 LEFT HEART ASSESSMENT Left Ventricular Ejection Fraction: by LV Gram 10-15 % Global Hypokinesis - Severe Depressed Left Ventricular systolic function Normal Left Ventricular End Diastolic Pressure LEFT MAIN: Non-obstructive LEFT ANTERIOR DECENDING ARTERY: Previously placed stent is patent DIAGONAL 1: Ostial - Mild luminal irregularities less than 30% DIAGONAL 2: Proximal - Non-obstructive CIRCUMFLEX ARTERY: MID CIRC: Previously placed stent is patent RIGHT CORONARY ARTERY: MID RCA: Previously placed stent has instent 20 % restenosis with a new at distal edge of stent COPD exacerbation (Acute) J44.1 Recent discharge 12/14/17 following treatment for acute on chronic systolic CHF exacerbation, acute COPD exacerbation with acute hypoxic respiratory failure and MRSA HCAP PNA. Acute respiratory failure with hypoxemia (Acute) J96.01 Iron deficiency anemia (Chronic) D50.9 NSVT (nonsustained ventricular tachycardia) (Acute) I47.2 COPD (chronic obstructive pulmonary disease) (Chronic) J44.9 Tobacco abuse (Chronic) Z72.0 Medical non-compliance (Chronic) Z91.19 Ischemic cardiomyopathy (Resolved) I25.5 Acute on chronic systolic (congestive) heart failure I50.23 Restless leg syndrome G25.81 Acute bronchitis (Resolved) J20.9 HCAP (healthcare-associated pneumonia) (Resolved) J18.9 Recent discharge 12/14/17 following treatment for acute on chronic systolic CHF exacerbation, acute COPD exacerbation with acute hypoxic respiratory failure and MRSA HCAP PNA. Hypotension (Resolved) I95.9 MRSA (methicillin resistant Staphylococcus aureus) infection (Resolved) A49.02 Recent discharge 12/14/17 following treatment for acute on chronic systolic CHF exacerbation, acute COPD exacerbation with acute hypoxic respiratory failure and MRSA HCAP PNA. Near syncope (Resolved) R55 Elevated troponin (Inactive) R74.8 Allergies No Known Allergies Allergy (Verified 07/28/18 20:01) Home Medications: Ambulatory Orders Medication Instructions Recorded Gabapentin [Neurontin] 600 mg PO DAILY #30 tab 12/14/17 Nitroglycerin [Nitrostat] 0.4 mg SUBLINGUAL Q5M PRN #1 bottle 12/14/17 aspirin 81 mg chewable tablet 81 mg PO DAILY@0800 #30 tab.chew 01/11/18 atorvastatin 80 mg tablet 80 mg PO QHS #30 tab 01/11/18 carvedilol 6.25 mg tablet 6.25 mg PO BID #60 tab 01/11/18 clopidogrel 75 mg tablet 75 mg PO DAILY #30 tab 01/11/18 furosemide 40 mg tablet 40 mg PO DAILY #30 tab 01/11/18 isosorbide mononitrate ER 30 mg 30 mg PO DAILY #30 tab 01/11/18 tablet,extended release 24 hr losartan 25 mg tablet 25 mg PO DAILY #30 tab 01/11/18 potassium chloride ER 20 mEq 20 meq PO DAILY #30 tab 01/11/18 tablet,extended release(part/cryst) ferrous gluconate 324 mg (37.5 mg 325 mg PO BIDCM #60 tab 01/15/18 iron) tablet Acetaminophen [Tylenol Tablet] 650 mg PO Q6H PRN PRN tablet 08/05/18 Albuterol Sulfate [Ventolin Hfa] 18 gm IH [id number] PRN #1 08/05/18 hfa.aer.ad Azithromycin [Zithromax] 250 mg PO DAILY #14 tablet 08/05/18 Prednisone 10 mg PO UD #30 tab 08/05/18 Surgical History: Surgical History (Last Reviewed 08/15/18 @ 05:19 by Marcus Mi MD) ICD (implantable cardioverter-defibrillator) in place (Chronic) Z95.810 History of coronary artery stent placement (Resolved) Z95.5 PCI-RCA and CX History of coronary artery stent placement Z95.5 [id number] and Cx History of left heart catheterization Onset Date: ~12/14/17 Z98.890 CORONARY ANGIOGRAPHY DOMINANCE: Right Dominant LEFT HEART ASSESSMENT Left Ventricular Ejection Fraction: by LV Gram 10-15 % Global Hypokinesis - Severe Depressed Left Ventricular systolic function Normal Left Ventricular End Diastolic Pressure LEFT MAIN: Non-obstructive LEFT ANTERIOR DECENDING ARTERY: Previously placed stent is patent DIAGONAL 1: Ostial - Mild luminal irregularities less than 30% DIAGONAL 2: Proximal - Non-obstructive CIRCUMFLEX ARTERY: MID CIRC: Previously placed stent is patent RIGHT CORONARY ARTERY: MID RCA: Previously placed stent has instent 20 % restenosis with a new at distal edge of stent Surgical History: - - PCI x 10-11. Psychiatric History: No pertinent psych hx Smoking Status: Current every day smoker Alcohol: Occasional - *Family History Maternal Family History: Family History (Last Reviewed 08/15/18 @ 05:19 by Marcus Mi MD) Father CAD (coronary artery disease) Heart disease Mother CAD (coronary artery disease) Heart disease Aunt Cancer Brother Heart disease Hypertension History Items: Heart Disease Paternal Family History: Family History (Last Reviewed 08/15/18 @ 05:19 by Marcus Mi MD) Father CAD (coronary artery disease) Heart disease Mother CAD (coronary artery disease) Heart disease Aunt Cancer Brother Heart disease Hypertension History Items: Heart Disease Review of Systems Constitutional: Denies: Chills, Fever, Weight Change HEENT: Denies: Head Aches, Sinus Congestion, Sinus Drainage Cardiovascular: Denies: Chest Pain, Palpitations Respiratory: Reports: Cough, Shortness of Breath, Sputum production Gastrointestinal: Denies: Abdominal Pain, Nausea, Vomiting Genitourinary: Denies: Dysuria Musculoskeletal: Denies: Joint Pain, Joint Tenderness Skin: Denies: Rash, Wounds Neurological: Denies: Numbness, Tingling, Focal weakness Psychiatric: Denies: Anxiety, Depression, Homicidal Ideations, Suicidal Ideations Hematologic/ Lymphatic: Denies: Easy Bruising, Easy Bleeding VTE Information - Inpt Only VTE Present on Admission: No VTE Mechan Device Prophylaxis: None VTE Pharm Prophylaxis ordered?: Yes - Physical Exam General: Alert, Oriented x3, Cooperative HEENT: Atraumatic, PERRLA, EOMI, Normocephalic Neck: Supple, No JVD, Negative Carotid Bruits Lungs: Normal air movement, Rhonchi, Tachypneic, Using Accessory Muscles, - - Talking in short sentences because of shortness of breath. Cardiovascular: Regular rate, No murmurs Abdomen: Bowel Sounds Present, Soft, Non Tender Extremities: No edema, Capillary Refill Less than 3 Seconds Skin: No rashes, No breakdown Musculoskeletal: No Tenderness to Palpation of Joints or Extremities Neurological: Cranial nerves II-XII grossly intact Psych/Mental Status: Anxious Vital Signs Temp Pulse Resp BP Pulse Ox 98.4 F 100 11 L 155/99 H 100 08/15/18 01:59 08/15/18 03:10 08/15/18 03:10 08/15/18 03:10 08/15/18 03:10 Oxygen Flow Rate (L/min) 4 Oxygen Delivery Method Nasal Cannula Weight: 75.1 kg Body Mass Index (BMI) 25.2 Laboratory Tests Past 24 Hrs 08/15/18 08/15/18 08/15/18 02:04 02:04 02:04 WBC 6.9 RBC 3.91 L Hgb 11.5 L Hct 36.2 L MCV 92.6 MCH 29.4 MCHC 31.8 L RDW 14.7 H RDW Differential 49.1 H Plt Count 196 MPV 9.3 Immature Gran % (Auto) 0.300 Neut % (Auto) 70.3 H Lymph % (Auto) 19.0 [place] % (Auto) 8.5 Eos % (Auto) 0.9 Baso % (Auto) 1.0 Absolute Neuts (auto) 4.9 Absolute Lymphs (auto) 1.31 Total Counted Not Reportable Specimen Type Sample Site pH Bicarbonate Actual POC Total CO2 Base Excess O2 Saturation ABG pCO2 ABG pO2 Alexis Test O2 Delivery Device Liter Flow Blood Gas Notified Whom Blood Gas Notified Time Sodium 130 L Potassium 4.7 Chloride 98 Carbon Dioxide 25.0 Anion Gap 7 BUN 14 Creatinine 0.83 Estim Creat Clear Calc 92.71 Est GFR (MDRD) Af Amer 121 Est GFR (MDRD) Non-Af 100 BUN/Creatinine Ratio 16.8 Glucose 88 Calcium 8.0 L Troponin I 0.052 H B-Natriuretic Peptide 1428.8 H 08/15/18 02:26 WBC RBC Hgb Hct MCV MCH MCHC RDW RDW Differential Plt Count MPV Immature Gran % (Auto) Neut % (Auto) Lymph % (Auto) [place] % (Auto) Eos % (Auto) Baso % (Auto) Absolute Neuts (auto) Absolute Lymphs (auto) Total Counted Specimen Type ART Sample Site R Radial pH 7.44 Bicarbonate Actual 21.9 L POC Total CO2 23 Base Excess -2 O2 Saturation 100 H ABG pCO2 32.2 L ABG pO2 205 H Alexis Test POS O2 Delivery Device NRB Mask Liter Flow 12.0 Blood Gas Notified Whom ED MD Blood Gas Notified Time 218 Sodium Potassium Chloride Carbon Dioxide Anion Gap BUN Creatinine Estim Creat Clear Calc Est GFR (MDRD) Af Amer Est GFR (MDRD) Non-Af BUN/Creatinine Ratio Glucose Calcium Troponin I B-Natriuretic Peptide Assessment/Plan All Active Problems (Last Updated 08/07/18 @ 09:53 by Julián Armenta DO) History of coronary artery stent placement (Resolved) Atherosclerosis of coronary artery of [place] heart without angina pectoris (Acute) COPD exacerbation (Acute) Acute respiratory failure with hypoxemia (Acute) NSVT (nonsustained ventricular tachycardia) (Acute) Ischemic cardiomyopathy (Resolved) Acute bronchitis (Resolved) HCAP (healthcare-associated pneumonia) (Resolved) Hypotension (Resolved) MRSA (methicillin resistant Staphylococcus aureus) infection (Resolved) Near syncope (Resolved) The patient is a 57 year old M with a significant history of tobacco abuse; COPD with home oxygen use, ischemic cardiomyopathy, CAD status post stent; ICD who presents with progressively worsening shortness of breath consistent with likely COPD patient. Acute COPD exacerbation Patient received Solu-Medrol 125 mg in the emergency department Solu-Medrol 40 mg every 8 hours ordered. DuoNeb scheduled Albuterol as needed Scheduled Mucinex. Azithromycin ordered. Incentive spirometer and chest physiotherapy ordered. Elevated troponin Likely due to demand ischemia from COPD exacerbation Trend troponin. Telemetry monitoring. Ischemic cardiomyopathy Noted to have elevated BNP of 1428.8. Chest x-ray does not show congestion. ICD in place Continue home Lasix with potassium. Dual antiplatelet therapy of aspirin and Plavix continued. Losartan; Imdur and carvedilol continued. Tobacco abuse Counselled. Refused nicotine patch. Inpatient consult smoking cessation. Hyponatremia Mild Likely due to diuretic use. Hypocalcemia Calcium of 8.0 Abnormal level ordered. DVT prophylaxis Subcutaneous Lovenox ordered. Code Visit Inpatient E&M: 70152 Init Hosp L3
--- NOTE | 2018-08-15 05:26 | NURSING ---
PATIENT SLEEPING SOUNDLY CURRENTLY. WE ARE AWAITING FOR THE FLOOR TO BE READY FOR THE PATIENT.
--- NOTE | 2018-08-15 05:31 | NURSING ---
PER OLI PATIENT DID NOT REQUIRE ANOTHER BREATHING TREATMENT. SHE LET DR. KAMARA KNOW AND HE WAS OK WITH THIS.
--- NOTE | 2018-08-15 06:04 | NURSING ---
PT STATES HE DOES NOT KNOW HIS HOME MEDICATIONS.
--- NOTE | 2018-08-15 06:09 | NURSING ---
PT RESTING IN BED. FREQUENTLY FALLING ASLEEP. LOUD SNORING AND MOUTH-BREATHING NOTED WHILE PT IS SLEEPING.
[2018-08-15 06:10] LABS: Albumin, Serum 3.5 g/dL (3.2-5.0)
--- NOTE | 2018-08-15 06:41 | NURSING ---
LAB NOTIFIED THAT PT'S 0551 TROPONIN DOES NOT APPEAR RECEIVED. MARQUIS WILL CHECK W/PHLEB THAT JOANNE THE TEST.
--- NOTE | 2018-08-15 10:11 | PCM.PN.HOSP ---
Patient Problems: Active and Suspected Problems (Last Reviewed 08/15/18 @ 05:19 by Marcus Mi MD) Elevated troponin (Acute) Subjective: Still short of breath. Feels like he is being smothered. Vitals/I&O's: Vital Signs Temp Pulse Resp BP Pulse Ox 36.7 C 102 H 25 H 152/92 H 97 08/15/18 06:58 08/15/18 07:35 08/15/18 07:24 08/15/18 06:58 08/15/18 07:24 Oxygen Flow Rate (L/min) 2 Oxygen Delivery Method Room Air Weight: 71.35 kg Body Mass Index (BMI) 23.9 General: Alert, Cooperative, No apparent distress HEENT: Atraumatic, Normocephalic Oral: Moist Mucosa, No Gingival or Mucosal Lesions/ Ulcerations Neck: No Nodes, Thyroid Normal Size and Texture Lungs: No rhonchi, No wheeze, Diminished Cardiovascular: Regular rate, Regular Rhythm, Normal S1, Normal S2, No murmurs Abdomen: Bowel Sounds Present, Soft, Non Tender, Non-Distended, No Hepato-splenomegaly Extremities: No edema, No Calf Tenderness Skin: No rashes, No breakdown Psych/Mental Status: Flat Affect Laboratory Results 08/15/18 02:04: WBC 6.9, RBC 3.91 L, Hgb 11.5 L, Hct 36.2 L, MCV 92.6, MCH 29.4, MCHC 31.8 L, RDW 14.7 H, RDW Differential 49.1 H, Plt Count 196, MPV 9.3, Immature Gran % (Auto) 0.300, Neut % (Auto) 70.3 H, Lymph % (Auto) 19.0, [place] % (Auto) 8.5, Eos % (Auto) 0.9, Baso % (Auto) 1.0, Absolute Neuts (auto) 4.9, Absolute Lymphs (auto) 1.31, Total Counted Not Reportable 08/15/18 02:04: Sodium 130 L, Potassium 4.7, Chloride 98, Carbon Dioxide 25.0, Anion Gap 7, BUN 14, Creatinine 0.83, Estim Creat Clear Calc 92.71, Est GFR (MDRD) Af Amer 121, Est GFR (MDRD) Non-Af 100, BUN/Creatinine Ratio 16.8, Glucose 88, Calcium 8.0 L, Troponin I 0.052 H 08/15/18 02:04: B-Natriuretic Peptide 1428.8 H 08/15/18 02:04: Albumin 3.5 08/15/18 02:26: Specimen Type ART, Sample Site R Radial, pH 7.44, Bicarbonate Actual 21.9 L, POC Total CO2 23, Base Excess -2, O2 Saturation 100 H, ABG pCO2 32.2 L, ABG pO2 205 H, Alexis Test POS, O2 Delivery Device NRB Mask, Liter Flow 12.0, Blood Gas Notified Whom ED , Blood Gas Notified Time 218 08/15/18 06:00: Troponin I 0.045 08/15/18 09:00: Troponin I 0.038 Current Medications Albuterol Sulfate (Ventolin Aerosols) 2.5 mg INHALATION Q2H PRN PRN PRN Reason: SHORTNESS OF BREATH Albuterol/Ipratropium (Duoneb) 3 ml INHALATION Q4H.RT [facility] Last Admin: 08/15/18 07:24 Dose: 3 ml Aspirin (Aspirin, Baby) 81 mg PO DAILY@0800 [facility] Atorvastatin Calcium (Lipitor) 80 mg PO QHS [facility] Carvedilol (Coreg) 6.25 mg PO BID [facility] Clopidogrel Bisulfate (Plavix) 75 mg PO DAILY [facility] Enoxaparin Sodium (Lovenox) 40 mg SC DAILY@1000 [facility] Furosemide (Lasix) 40 mg PO DAILY [facility] Guaifenesin (Mucinex) 1,200 mg PO BID [facility] Azithromycin 500 mg/ Dextrose 255 mls @ 250 mls/hr IV Q24 SHELL Stop: 08/17/18 11:02 Last Admin: 08/15/18 06:52 Dose: 250 mls/hr Isosorbide Mononitrate (Imdur) 30 mg PO DAILY@1900 [facility] Losartan Potassium (Cozaar) 25 mg PO DAILY [facility] Magnesium Hydroxide (Milk Of Magnesia) 30 ml PO DAILY PRN PRN PRN Reason: Constipation Methylprednisolone (Solu-Medrol) 40 mg IV Q8 [facility] Ondansetron HCl (Zofran) 4 mg IV Q8H PRN PRN PRN Reason: Nausea Potassium Chloride (K-Dur) 20 meq PO DAILYCM [facility] Sodium Chloride () 5 - 30 ml IV UD PRN PRN Reason: SALINE FLUSH Medical Necessity - Tobacco Use Smoking Status: Current every day smoker Assessment/Plan All Active Problems (Last Reviewed 08/15/18 @ 05:19 by Marcus Mi MD) Elevated troponin (Acute) COPD exacerbation (Acute) Acute bronchitis (Resolved) HCAP (healthcare-associated pneumonia) (Resolved) Hypotension (Resolved) MRSA (methicillin resistant Staphylococcus aureus) infection (Resolved) Near syncope (Resolved) 1. AECOPD still short of breath 97% on RA ABG cw hyperventilation decrease steroids maybe complicated by anxiety 2. Elevated troponins stress test 12/25/17 was negative [facility] 12/14/17 was unremarkable likely troponin leak due to demand in a patient with cardiomyopathy with EF 10-15% no additional work up 3. Ischemic cardiomyopathy EF 10-15% from [facility] on 12/14/17 s/p AICD on 01/10/18 BNP elevated but no clinical nor radiographic CHF. on Lasix and losartan 4. CAD: continue ASA, plavix, HIS continue Coreg 5. DVT proph: LMWH 6. Disposition: given his medical complexity and recent admission and high likelihood of readmission, will decrease steroids today and observe. If doing well on the , then could be discharged then. Code Visit Procedures: Other Procedure - See Report - Non billable rounding.
--- NOTE | 2018-08-15 10:23 | PN_ITS ---
Patient Problems: Active and Suspected Problems (Last Reviewed 08/15/18 @ 05:19 by Marcus Mi MD) Elevated troponin (Acute) Subjective: Still short of breath. Feels like he is being smothered. Vitals/I&O's: Vital Signs Temp Pulse Resp BP Pulse Ox 36.7 C 102 H 25 H 152/92 H 97 08/15/18 06:58 08/15/18 07:35 08/15/18 07:24 08/15/18 06:58 08/15/18 07:24 Oxygen Flow Rate (L/min) 2 Oxygen Delivery Method Room Air Weight: 71.35 kg Body Mass Index (BMI) 23.9 General: Alert, Cooperative, No apparent distress HEENT: Atraumatic, Normocephalic Oral: Moist Mucosa, No Gingival or Mucosal Lesions/ Ulcerations Neck: No Nodes, Thyroid Normal Size and Texture Lungs: No rhonchi, No wheeze, Diminished Cardiovascular: Regular rate, Regular Rhythm, Normal S1, Normal S2, No murmurs Abdomen: Bowel Sounds Present, Soft, Non Tender, Non-Distended, No Hepato- splenomegaly Extremities: No edema, No Calf Tenderness Skin: No rashes, No breakdown Psych/Mental Status: Flat Affect Laboratory Results 08/15/18 02:04: WBC 6.9, RBC 3.91 L, Hgb 11.5 L, Hct 36.2 L, MCV 92.6, MCH 29.4, MCHC 31.8 L, RDW 14.7 H, RDW Differential 49.1 H, Plt Count 196, MPV 9.3, Immature Gran % (Auto) 0.300, Neut % (Auto) 70.3 H, Lymph % (Auto) 19.0, [place] % (Auto) 8.5, Eos % (Auto) 0.9, Baso % (Auto) 1.0, Absolute Neuts (auto) 4.9, Absolute Lymphs (auto) 1.31, Total Counted Not Reportable 08/15/18 02:04: Sodium 130 L, Potassium 4.7, Chloride 98, Carbon Dioxide 25.0, Anion Gap 7, BUN 14, Creatinine 0.83, Estim Creat Clear Calc 92.71, Est GFR (MDRD) Af Amer 121, Est GFR (MDRD) Non-Af 100, BUN/Creatinine Ratio 16.8, Glucose 88, Calcium 8.0 L, Troponin I 0.052 H 08/15/18 02:04: B-Natriuretic Peptide 1428.8 H 08/15/18 02:04: Albumin 3.5 08/15/18 02:26: Specimen Type ART, Sample Site R Radial, pH 7.44, Bicarbonate Actual 21.9 L, POC Total CO2 23, Base Excess -2, O2 Saturation 100 H, ABG pCO2 32.2 L, ABG pO2 205 H, Alexis Test POS, O2 Delivery Device NRB Mask, Liter Flow 12.0, Blood Gas Notified Whom ED , Blood Gas Notified Time 218 08/15/18 06:00: Troponin I 0.045 08/15/18 09:00: Troponin I 0.038 Current Medications Albuterol Sulfate (Ventolin Aerosols) 2.5 mg INHALATION Q2H PRN PRN PRN Reason: SHORTNESS OF BREATH Albuterol/Ipratropium (Duoneb) 3 ml INHALATION Q4H.RT [facility] Last Admin: 08/15/18 07:24 Dose: 3 ml Aspirin (Aspirin, Baby) 81 mg PO DAILY@0800 [facility] Atorvastatin Calcium (Lipitor) 80 mg PO QHS [facility] Carvedilol (Coreg) 6.25 mg PO BID [facility] Clopidogrel Bisulfate (Plavix) 75 mg PO DAILY [facility] Enoxaparin Sodium (Lovenox) 40 mg SC DAILY@1000 [facility] Furosemide (Lasix) 40 mg PO DAILY [facility] Guaifenesin (Mucinex) 1,200 mg PO BID [facility] Azithromycin 500 mg/ Dextrose 255 mls @ 250 mls/hr IV Q24 SHELL Stop: 08/17/18 11:02 Last Admin: 08/15/18 06:52 Dose: 250 mls/hr Isosorbide Mononitrate (Imdur) 30 mg PO DAILY@1900 [facility] Losartan Potassium (Cozaar) 25 mg PO DAILY [facility] Magnesium Hydroxide (Milk Of Magnesia) 30 ml PO DAILY PRN PRN PRN Reason: Constipation Methylprednisolone (Solu-Medrol) 40 mg IV Q8 [facility] Ondansetron HCl (Zofran) 4 mg IV Q8H PRN PRN PRN Reason: Nausea Potassium Chloride (K-Dur) 20 meq PO DAILYCM [facility] Sodium Chloride () 5 - 30 ml IV UD PRN PRN Reason: SALINE FLUSH Medical Necessity - Tobacco Use Smoking Status: Current every day smoker Assessment/Plan All Active Problems (Last Reviewed 08/15/18 @ 05:19 by Marcus Mi MD) Elevated troponin (Acute) COPD exacerbation (Acute) Acute bronchitis (Resolved) HCAP (healthcare-associated pneumonia) (Resolved) Hypotension (Resolved) MRSA (methicillin resistant Staphylococcus aureus) infection (Resolved) Near syncope (Resolved) 1. AECOPD * still short of breath * 97% on RA * ABG cw hyperventilation * decrease steroids * maybe complicated by anxiety 2. Elevated troponins * stress test 12/25/17 was negative * [facility] 12/14/17 was unremarkable * likely troponin leak due to demand in a patient with cardiomyopathy with EF 10-15% * no additional work up 3. Ischemic cardiomyopathy * EF 10-15% from [facility] on 12/14/17 * s/p AICD on 01/10/18 * BNP elevated but no clinical nor radiographic CHF. * on Lasix and losartan 4. CAD: * continue ASA, plavix, HIS * continue Coreg 5. DVT proph: LMWH 6. Disposition: * given his medical complexity and recent admission and high likelihood of readmission, will decrease steroids today and observe. If doing well on the , then could be discharged then. Code Visit Procedures: Other Procedure - See Report - Non billable rounding.
[2018-08-15] MEDS: Aspirin 81 MG TAB.CHEW PO (10:51)
[2018-08-15] MEDS: Carvedilol 6.25 MG Tablet PO ×2 (10:52→22:12)
[2018-08-15] MEDS: Furosemide 40 MG Tablet PO (10:52)
[2018-08-15] MEDS: Losartan Potassium 25 MG Tablet PO (10:52)
[2018-08-15] MEDS: Enoxaparin 40 MG/0.4 ML Syringe SC (10:53)
[2018-08-15] MEDS: guaiFENesin 1,200 MG Tablet 1200 MG PO ×2 (10:53→22:12)
[2018-08-15] MEDS: Clopidogrel Bisulfate 75 MG Tablet PO (10:53)
--- NOTE | 2018-08-15 11:06 | NURSING ---
Pt assisted to restroom. unsteady on feet. Assisted back to bed but pt refused to lay down and wanted to sit at the bedside. bed exit placed.
[2018-08-15] MEDS: 0.9% NaCl Peripheral Flush Adult/Peds IV ×2 (13:44→22:11)
--- NOTE | 2018-08-15 14:55 | CASEMGMT ---
GILL BASS INITIAL ASSESSMENT D/C PLAN: Home. Monitor for Oxygen home-going needs. Face to Face with patient for initial transition planning/care coordination assessment. GILL BASS introduced self and role at [facility]. Pt agreeable to assessment, but then seemed irritable when GILL BASS asked questions, answering with very brief statements and would not elaborate on information unless more detailed questions were asked. Care providers, pharmacy, and demographics verified. Pt stated does not have a phone any more. Asked pt how someone would contact him if they needed to reach him and he stated, well I guess they'd have to come visit me. Pt stated if he needed help or to reach someone that he would go to a neighbors to use their phone. PCP: Berna Oquendo NP. GILL BASS inquired of pt if he made follow-up appt since being discharged from [facility] on 08-05-18. Pt stated, No. GILL BASS inquired of reason why he did not go to appt and he stated b/c he did not have transportation. Specialists: No Preferred Pharmacy: [facility] Insurance: [facility] [place] Prescription Benefit: Yes Living Will/HPOA: Has both LW and HCPOA who is his brother, Angel Jung. Copies of both found in e-chart LNOK: Brother Living Arrangements: Pt states that his niece lives with him in a one-story apt. States 4-5 steps to enter. Denies problems navigating stairs. Transportation: States he drives and that he does have a car. GILL BASS asked him about stating he did not have transportation for follow-up appt w/Berna Oquendo d/t lack of transportation and pt stated, I just bought a car on Sunday. DME: States he has a nebulizer but that he does not have home oxygen. GILL BASS asked pt if he has ever used oxygen in the past and he stated he has not used any oxygen in the home since [id number] States when he did use it that he was on 3L/M. States if he would need oxygen on discharge that he would prefer to get it through [facility]. Pt will need home oxygen testing completed prior to discharge. RNLynette, made aware to put in hand-off. Home oxygen qualification intervention added to worklist. HHC/SNF: Pt states he used HHC in the past when he lived in [place] but does not want HHC on discharge from Hospital. States has never been to a SNF. Discussed CCN with patient and he stated he is not interested in and does not want CCN. Pt wishes to return home and does not want any HHC or CCN. Pt states that he does still smoke and that he does not want any information on smoking cessation. CM to follow for any further discharge planning needs that may arise. Lyle ESPINOZAN RN CM
--- NOTE | 2018-08-15 17:13 | NURSING ---
CALLED [facility] TO OBTAIN MED LIST. PHARMACY STATED PT HAD NOT FILLED ANYTHING WITH THEM SINCE DECEMBER AND WAS PROBABLY NOT TAKING THOSE MEDS ANYMORE.
[2018-08-15] MEDS: Ondansetron 4 MG/2 ML Vial IV (17:30)
[2018-08-15] MEDS: Isosorbide Mononitrate 30 MG Tablet PO (17:32)
[2018-08-15] MEDS: Atorvastatin Calcium 80 MG Tablet PO (22:11)
[2018-08-16] VITALS (9 sets, daily range): BP systolic 133–135; BP diastolic 85–89; PULSE 88–96; RESP 20; TEMP 36.1–37.1; O2SAT 94–100
[2018-08-16] MEDS: Ipratropium/Albuterol Sulfate 3 ML AMPUL.NEB INHALATION ×2 (04:28→07:28)
[2018-08-16 06:26] LABS: Anion Gap 8 (5-15); BUN 23 mg/dL (7-18); BUN/Creat Ratio 26.4 RATIO (10-20); Calcium,Total 8.1 mg/dL (8.5-10.1); Chloride 102 mmol/L (98-107); Creatinine, Serum 0.87 mg/dL (0.70-1.30); EST Glomerular Filtration Rate 95 mL/min (>60); Est Glom Filt Rate - Afr Amer 115 mL/min (>60); Estimated Creatinine Clearance 88.45 ml/min; Glucose 132 mg/dL (74-106); Potassium 5.2 mmol/L (3.5-5.1); Sodium Level 138 mmol/L (136-145)
[2018-08-16] MEDS: 0.9% NaCl Peripheral Flush Adult/Peds IV (06:44)
--- NOTE | 2018-08-16 07:43 | CPS ---
Pt. refused teaching on PEP device. Discussed advantages with patient of exercise. Pt. still refused doing acapella.
[2018-08-16] MEDS: Enoxaparin 40 MG/0.4 ML Syringe SC (08:07)
[2018-08-16] MEDS: Losartan Potassium 25 MG Tablet PO (08:07)
[2018-08-16] MEDS: guaiFENesin 1,200 MG Tablet 1200 MG PO (08:07)
[2018-08-16] MEDS: Aspirin 81 MG TAB.CHEW PO (08:08)
[2018-08-16] MEDS: Carvedilol 6.25 MG Tablet PO (08:08)
[2018-08-16] MEDS: Furosemide 40 MG Tablet PO (08:08)
[2018-08-16] MEDS: Clopidogrel Bisulfate 75 MG Tablet PO (08:08)
--- NOTE | 2018-08-16 09:50 | PCM.DC ---
- Discharge Diagnoses Current Active Problems: Current Active and Chronic Problems (Last Updated 08/15/18 @ 10:13 by Justin Zamarripa DO) Elevated troponin (Acute) You will use the following diet at home:: Cardiac, Fluid restricted (specify 2000 mls, 1500 mls) - 1500 cc day Your food should be the consistency of: Regular Your liquids should be the consistency of: Regular/Thin Discharge Activity: Return to Normal Activity Call your doctor if you observe: Fever of 101 or Higher, Shortness of breath, Swelling in the ankles Allergies/Adverse Reactions: Allergies No Known Allergies Allergy (Verified 07/28/18 20:01) Medications to take at Discharge Gabapentin [Neurontin] 600 mg PO DAILY #30 tab 12/14/17 Nitroglycerin [Nitrostat] 0.4 mg SUBLINGUAL Q5M PRN #1 bottle 12/14/17 aspirin 81 mg chewable tablet 81 mg PO DAILY@0800 #30 tab.chew 01/11/18 atorvastatin 80 mg tablet 80 mg PO QHS #30 tab 01/11/18 carvedilol 6.25 mg tablet 6.25 mg PO BID #60 tab 01/11/18 clopidogrel 75 mg tablet 75 mg PO DAILY #30 tab 01/11/18 furosemide 40 mg tablet 40 mg PO DAILY #30 tab 01/11/18 isosorbide mononitrate ER 30 mg tablet,extended release 24 hr 30 mg PO DAILY #30 tab 01/11/18 losartan 25 mg tablet 25 mg PO DAILY #30 tab 01/11/18 potassium chloride ER 20 mEq tablet,extended release(part/cryst) 20 meq PO DAILY #30 tab 01/11/18 ferrous gluconate 324 mg (37.5 mg iron) tablet 325 mg PO BIDCM #60 tab 01/15/18 Acetaminophen [Tylenol Tablet] 650 mg PO Q6H PRN PRN tablet 08/05/18 Albuterol Sulfate [Ventolin Hfa] 18 gm IH [id number] PRN #1 hfa.aer.ad 08/05/18 Guaifenesin [Mucinex] 1,200 mg PO BID #10 tablet 08/16/18 Prednisone 10 mg PO UD #30 tablet 08/16/18 The following prescriptions were given: Prednisone 10 mg PO UD #30 tablet Guaifenesin [Mucinex] 1,200 mg PO BID #10 tablet Primary Care Physician: Jere,Berna, [employer] [Primary Care Provider] - Within 2 Weeks Test Results: Test results from this visit will be discussed in further detail at your follow-up appointment, if applicable. Please Follow Up With: Fco Ahmadi DO When: 1-2 months. Please Follow Up With: Bradford Mak MD When: next scheduled appointment. Proposed Discharge Date: 08/16/18
--- NOTE | 2018-08-16 09:53 | DCINST_ITS ---
- Discharge Diagnoses Current Active Problems: Current Active and Chronic Problems (Last Updated 08/15/18 @ 10:13 by Justin Zamarripa DO) Elevated troponin (Acute) You will use the following diet at home:: Cardiac, Fluid restricted (specify 2000 mls, 1500 mls) - 1500 cc day Your food should be the consistency of: Regular Your liquids should be the consistency of: Regular/Thin Discharge Activity: Return to Normal Activity Call your doctor if you observe: Fever of 101 or Higher, Shortness of breath, Swelling in the ankles Allergies/Adverse Reactions: Allergies No Known Allergies Allergy (Verified 07/28/18 20:01) Medications to take at Discharge Gabapentin [Neurontin] 600 mg PO DAILY #30 tab 12/14/17 Nitroglycerin [Nitrostat] 0.4 mg SUBLINGUAL Q5M PRN #1 bottle 12/14/17 aspirin 81 mg chewable tablet 81 mg PO DAILY@0800 #30 tab.chew 01/11/18 atorvastatin 80 mg tablet 80 mg PO QHS #30 tab 01/11/18 carvedilol 6.25 mg tablet 6.25 mg PO BID #60 tab 01/11/18 clopidogrel 75 mg tablet 75 mg PO DAILY #30 tab 01/11/18 furosemide 40 mg tablet 40 mg PO DAILY #30 tab 01/11/18 isosorbide mononitrate ER 30 mg tablet,extended release 24 hr 30 mg PO DAILY #30 tab 01/11/18 losartan 25 mg tablet 25 mg PO DAILY #30 tab 01/11/18 potassium chloride ER 20 mEq tablet,extended release(part/cryst) 20 meq PO DAILY #30 tab 01/11/18 ferrous gluconate 324 mg (37.5 mg iron) tablet 325 mg PO BIDCM #60 tab 01/15/18 Acetaminophen [Tylenol Tablet] 650 mg PO Q6H PRN PRN tablet 08/05/18 Albuterol Sulfate [Ventolin Hfa] 18 gm IH [id number] PRN #1 hfa.aer.ad 08/05/18 Guaifenesin [Mucinex] 1,200 mg PO BID #10 tablet 08/16/18 Prednisone 10 mg PO UD #30 tablet 08/16/18 The following prescriptions were given: Prednisone 10 mg PO UD #30 tablet Guaifenesin [Mucinex] 1,200 mg PO BID #10 tablet Primary Care Physician: Jere,Berna, [employer] [Primary Care Provider] - Within 2 Weeks Test Results: Test results from this visit will be discussed in further detail at your follow- up appointment, if applicable. Please Follow Up With: Fco Ahmadi DO When: 1-2 months. Please Follow Up With: Bradford Mak MD When: next scheduled appointment. Proposed Discharge Date: 08/16/18
--- NOTE | 2018-08-16 09:53 | PCM.DC.SUM ---
Discharge Date and Diagnosis - Problem List Patient Problems: Active and Suspected Problems (Last Updated 08/15/18 @ 10:13 by Justin Zamarripa DO) COPD exacerbation (Acute) Recent discharge 12/14/17 following treatment for acute on chronic systolic CHF exacerbation, acute COPD exacerbation with acute hypoxic respiratory failure and MRSA HCAP PNA. Date of Admission: 08/15/18 Date of Discharge: 08/16/18 - Primary Discharge Diagnosis Active and Suspected Problems (Last Updated 08/15/18 @ 10:13 by Justin Zamarripa DO) Elevated troponin (Acute) - Secondary Discharge Diagnosis Chronic Problems (Last Updated 08/15/18 @ 10:13 by Justin Zamarripa DO) COPD with acute exacerbation (Chronic) Non-ischemic cardiomyopathy (Chronic) ICD (implantable cardioverter-defibrillator) in place (Chronic) History of coronary artery stent placement (Chronic) PCI-RCA and CX Atherosclerosis of coronary artery of [place] heart without angina pectoris (Chronic) LEFT HEART ASSESSMENT Left Ventricular Ejection Fraction: by LV Gram 10-15 % Global Hypokinesis - Severe Depressed Left Ventricular systolic function Normal Left Ventricular End Diastolic Pressure LEFT MAIN: Non-obstructive LEFT ANTERIOR DECENDING ARTERY: Previously placed stent is patent DIAGONAL 1: Ostial - Mild luminal irregularities less than 30% DIAGONAL 2: Proximal - Non-obstructive CIRCUMFLEX ARTERY: MID CIRC: Previously placed stent is patent RIGHT CORONARY ARTERY: MID RCA: Previously placed stent has instent 20 % restenosis with a new at distal edge of stent Iron deficiency anemia (Chronic) COPD (chronic obstructive pulmonary disease) (Chronic) Tobacco abuse (Chronic) Medical non-compliance (Chronic) Ischemic cardiomyopathy (Chronic) Hospital Course and Treatment Imaging Results: Clinical Impression(s) from Imaging Studies Chest X-Ray 08/15/18 02:05 IMPRESSION: Chronic interstitial changes. Mild cardiomegaly. Pacemaker. No evidence for acute cardiopulmonary pathology. Electronically Signed: Trey Roman MD at 2:59 EST , Service support , Operations: None Procedures: None Summary of Care Provided: The patient is a 57 year old M presents with shortness of breath. Patient's ABG was, if anything was more concerned with hyperventilation. Patient was diagnosed with acute exacerbation of COPD but may be compounded by patient's underlying Neto disorder. Patient was started on steroids and patient did well was there. Patient will be discharged home today in stable condition. Patient be on a prednisone taper. Patient was just discharged about a week prior. Patient was ambulated in the hallway and I was 90% on room air, so patient will not require oxygen upon discharge. 1. AECOPD improved 97% on RA ABG cw hyperventilation decrease steroids maybe complicated by anxiety 2. Elevated troponins stress test 12/25/17 was negative [facility] 12/14/17 was unremarkable likely troponin leak due to demand in a patient with cardiomyopathy with EF 10-15% no additional work up 3. Ischemic cardiomyopathy EF 10-15% from [facility] on 12/14/17 s/p AICD on 01/10/18 BNP elevated but no clinical nor radiographic CHF. on Lasix and losartan 4. CAD: continue ASA, plavix, HIS continue Coreg[] Patient Problems: Active and Suspected Problems (Last Updated 08/15/18 @ 10:13 by Justin Zamarripa DO) COPD exacerbation (Acute) Recent discharge 12/14/17 following treatment for acute on chronic systolic CHF exacerbation, acute COPD exacerbation with acute hypoxic respiratory failure and MRSA HCAP PNA. - Physical Exam General: Alert, No apparent distress Neck: No Nodes, Thyroid Normal Size and Texture Lungs: Clear to auscultation, Diminished Cardiovascular: Regular rate, Regular Rhythm, Normal S1, Normal S2 Abdomen: Bowel Sounds Present, Soft, Non Tender, Non-Distended Vital Signs Temp Pulse Resp BP Pulse Ox 36.1 C L 88 20 H 135/85 H 100 08/16/18 08:10 08/16/18 08:10 08/16/18 08:10 08/16/18 08:10 08/16/18 09:23 Oxygen Flow Rate (L/min) 2 Oxygen Delivery Method Room Air Weight: 71.35 kg Body Mass Index (BMI) 23.9 Intake and Output for Last 24 Hours 08/14/18 08/15/18 08/16/18 23:59 23:59 23:59 Intake Total 735 / 735 680 / 680 Balance 735 / 735 680 / 680 Laboratory Tests Past 24 Hrs 08/16/18 05:30 Sodium 138 Potassium 5.2 H Chloride 102 Carbon Dioxide 28.0 Anion Gap 8 BUN 23 H Creatinine 0.87 Estim Creat Clear Calc 88.45 Est GFR (MDRD) Af Amer 115 Est GFR (MDRD) Non-Af 95 BUN/Creatinine Ratio 26.4 H Glucose 132 H Calcium 8.1 L Discharge Diet: Low fat/ Low Cholesterol, 6 Cup Fluid Restriction, 2000 mg Sodium Diet Discharge Activity: Return to Normal Activity Call your doctor if you observe: Fever of 101 or Higher, Shortness of breath, Swelling in the ankles Home Medications: Medications to take at Discharge Gabapentin [Neurontin] 600 mg PO DAILY #30 tab 12/14/17 Nitroglycerin [Nitrostat] 0.4 mg SUBLINGUAL Q5M PRN #1 bottle 12/14/17 aspirin 81 mg chewable tablet 81 mg PO DAILY@0800 #30 tab.chew 01/11/18 atorvastatin 80 mg tablet 80 mg PO QHS #30 tab 01/11/18 carvedilol 6.25 mg tablet 6.25 mg PO BID #60 tab 01/11/18 clopidogrel 75 mg tablet 75 mg PO DAILY #30 tab 01/11/18 furosemide 40 mg tablet 40 mg PO DAILY #30 tab 01/11/18 isosorbide mononitrate ER 30 mg tablet,extended release 24 hr 30 mg PO DAILY #30 tab 01/11/18 losartan 25 mg tablet 25 mg PO DAILY #30 tab 01/11/18 potassium chloride ER 20 mEq tablet,extended release(part/cryst) 20 meq PO DAILY #30 tab 01/11/18 ferrous gluconate 324 mg (37.5 mg iron) tablet 325 mg PO BIDCM #60 tab 01/15/18 Acetaminophen [Tylenol Tablet] 650 mg PO Q6H PRN PRN tablet 08/05/18 Albuterol Sulfate [Ventolin Hfa] 18 gm IH [id number] PRN #1 hfa.aer.ad 08/05/18 Guaifenesin [Mucinex] 1,200 mg PO BID #10 tablet 08/16/18 Prednisone 10 mg PO UD #30 tablet 08/16/18 Following Prescrptions Were Given to Patient: Prednisone 10 mg PO UD #30 tablet Guaifenesin [Mucinex] 1,200 mg PO BID #10 tablet Primary Care Physician: Berna Oquendo, DANA-C [Primary Care Provider] - Within 2 Weeks Please Follow Up With: Fco Ahmadi DO When: 1-2 months. Please Follow Up With: Bradford Mak MD When: next scheduled appointment. Disposition: Home Minutes spent on discharge:: 33 Patient Condition:: Fair Medical Necessity - Tobacco Use Smoking Status: Current every day smoker Tobacco Use: Cigarettes Meaningful Use Info Meaningful Use Diagnoses (Choose all that apply): CHF - CHF YUE/ARB ordered at discharge?: Yes Documented LVEF (%): 15 Code Visit Inpatient E&M: 07197 Disch Hosp
--- NOTE | 2018-08-16 09:57 | DS.PCM_ITS ---
Discharge Date and Diagnosis - Problem List Patient Problems: Active and Suspected Problems (Last Updated 08/15/18 @ 10:13 by Justin Zamarripa DO) COPD exacerbation (Acute) Recent discharge 12/14/17 following treatment for acute on chronic systolic CHF exacerbation, acute COPD exacerbation with acute hypoxic respiratory failure and MRSA HCAP PNA. Date of Admission: 08/15/18 Date of Discharge: 08/16/18 - Primary Discharge Diagnosis Active and Suspected Problems (Last Updated 08/15/18 @ 10:13 by Justin Zamarripa DO) Elevated troponin (Acute) - Secondary Discharge Diagnosis Chronic Problems (Last Updated 08/15/18 @ 10:13 by Justin Zamarripa DO) COPD with acute exacerbation (Chronic) Non-ischemic cardiomyopathy (Chronic) ICD (implantable cardioverter-defibrillator) in place (Chronic) History of coronary artery stent placement (Chronic) PCI-RCA and CX Atherosclerosis of coronary artery of [place] heart without angina pectoris (Chronic) LEFT HEART ASSESSMENT Left Ventricular Ejection Fraction: by LV Gram 10-15 % Global Hypokinesis - Severe Depressed Left Ventricular systolic function Normal Left Ventricular End Diastolic Pressure LEFT MAIN: Non-obstructive LEFT ANTERIOR DECENDING ARTERY: Previously placed stent is patent DIAGONAL 1: Ostial - Mild luminal irregularities less than 30% DIAGONAL 2: Proximal - Non-obstructive CIRCUMFLEX ARTERY: MID CIRC: Previously placed stent is patent RIGHT CORONARY ARTERY: MID RCA: Previously placed stent has instent 20 % restenosis with a new at distal edge of stent Iron deficiency anemia (Chronic) COPD (chronic obstructive pulmonary disease) (Chronic) Tobacco abuse (Chronic) Medical non-compliance (Chronic) Ischemic cardiomyopathy (Chronic) Hospital Course and Treatment Imaging Results: Clinical Impression(s) from Imaging Studies Chest X-Ray 08/15/18 02:05 IMPRESSION: Chronic interstitial changes. Mild cardiomegaly. Pacemaker. No evidence for acute cardiopulmonary pathology. Electronically Signed: Trey Roman MD at 2:59 EST , Service support , Operations: None Procedures: None Summary of Care Provided: The patient is a 57 year old M presents with shortness of breath. Patient's ABG was, if anything was more concerned with hyperventilation. Patient was diagnosed with acute exacerbation of COPD but may be compounded by patient's underlying Neto disorder. Patient was started on steroids and patient did well was there. Patient will be discharged home today in stable condition. Patient be on a prednisone taper. Patient was just discharged about a week prior. Patient was ambulated in the hallway and I was 90% on room air, so patient will not require oxygen upon discharge. 1. AECOPD * improved * 97% on RA * ABG cw hyperventilation * decrease steroids * maybe complicated by anxiety 2. Elevated troponins * stress test 12/25/17 was negative * [facility] 12/14/17 was unremarkable * likely troponin leak due to demand in a patient with cardiomyopathy with EF 10-15% * no additional work up 3. Ischemic cardiomyopathy * EF 10-15% from [facility] on 12/14/17 * s/p AICD on 01/10/18 * BNP elevated but no clinical nor radiographic CHF. * on Lasix and losartan 4. CAD: * continue ASA, plavix, HIS * continue Coreg[] Patient Problems: Active and Suspected Problems (Last Updated 08/15/18 @ 10:13 by Justin Zamarripa DO) COPD exacerbation (Acute) Recent discharge 12/14/17 following treatment for acute on chronic systolic CHF exacerbation, acute COPD exacerbation with acute hypoxic respiratory failure and MRSA HCAP PNA. - Physical Exam General: Alert, No apparent distress Neck: No Nodes, Thyroid Normal Size and Texture Lungs: Clear to auscultation, Diminished Cardiovascular: Regular rate, Regular Rhythm, Normal S1, Normal S2 Abdomen: Bowel Sounds Present, Soft, Non Tender, Non-Distended Vital Signs Temp Pulse Resp BP Pulse Ox 36.1 C L 88 20 H 135/85 H 100 08/16/18 08:10 08/16/18 08:10 08/16/18 08:10 08/16/18 08:10 08/16/18 09:23 Oxygen Flow Rate (L/min) 2 Oxygen Delivery Method Room Air Weight: 71.35 kg Body Mass Index (BMI) 23.9 Intake and Output for Last 24 Hours 08/14/18 08/15/18 08/16/18 23:59 23:59 23:59 Intake Total 735 / 735 680 / 680 Balance 735 / 735 680 / 680 Laboratory Tests Past 24 Hrs 08/16/18 05:30 Sodium 138 Potassium 5.2 H Chloride 102 Carbon Dioxide 28.0 Anion Gap 8 BUN 23 H Creatinine 0.87 Estim Creat Clear Calc 88.45 Est GFR (MDRD) Af Amer 115 Est GFR (MDRD) Non-Af 95 BUN/Creatinine Ratio 26.4 H Glucose 132 H Calcium 8.1 L Discharge Diet: Low fat/ Low Cholesterol, 6 Cup Fluid Restriction, 2000 mg Sodium Diet Discharge Activity: Return to Normal Activity Call your doctor if you observe: Fever of 101 or Higher, Shortness of breath, Swelling in the ankles Home Medications: Medications to take at Discharge Gabapentin [Neurontin] 600 mg PO DAILY #30 tab 12/14/17 Nitroglycerin [Nitrostat] 0.4 mg SUBLINGUAL Q5M PRN #1 bottle 12/14/17 aspirin 81 mg chewable tablet 81 mg PO DAILY@0800 #30 tab.chew 01/11/18 atorvastatin 80 mg tablet 80 mg PO QHS #30 tab 01/11/18 carvedilol 6.25 mg tablet 6.25 mg PO BID #60 tab 01/11/18 clopidogrel 75 mg tablet 75 mg PO DAILY #30 tab 01/11/18 furosemide 40 mg tablet 40 mg PO DAILY #30 tab 01/11/18 isosorbide mononitrate ER 30 mg tablet,extended release 24 hr 30 mg PO DAILY #30 tab 01/11/18 losartan 25 mg tablet 25 mg PO DAILY #30 tab 01/11/18 potassium chloride ER 20 mEq tablet,extended release(part/cryst) 20 meq PO DAILY #30 tab 01/11/18 ferrous gluconate 324 mg (37.5 mg iron) tablet 325 mg PO BIDCM #60 tab 01/15/18 Acetaminophen [Tylenol Tablet] 650 mg PO Q6H PRN PRN tablet 08/05/18 Albuterol Sulfate [Ventolin Hfa] 18 gm IH [id number] PRN #1 hfa.aer.ad 08/05/18 Guaifenesin [Mucinex] 1,200 mg PO BID #10 tablet 08/16/18 Prednisone 10 mg PO UD #30 tablet 08/16/18 Following Prescrptions Were Given to Patient: Prednisone 10 mg PO UD #30 tablet Guaifenesin [Mucinex] 1,200 mg PO BID #10 tablet Primary Care Physician: Berna Oquendo NP-C [Primary Care Provider] - Within 2 Weeks Please Follow Up With: Fco Ahmadi DO When: 1-2 months. Please Follow Up With: Bradford Mak MD When: next scheduled appointment. Disposition: Home Minutes spent on discharge:: 33 Patient Condition:: Fair Medical Necessity - Tobacco Use Smoking Status: Current every day smoker Tobacco Use: Cigarettes Meaningful Use Info Meaningful Use Diagnoses (Choose all that apply): CHF - CHF YUE/ARB ordered at discharge?: Yes Documented LVEF (%): 15 Code Visit Inpatient E&M: 19530 Disch Hosp
== END 2018-08-16 10:59 | disposition home or self-care (01) ==
LOC: ED 03:13 → MS3 05:34
PROVIDERS: Admitting Provider Hospitalist; Emergency Provider Emergency Medicine; Family Provider Nurse Practitioner Family; PCP Nurse Practitioner Family
DX: J44.0 Chronic obstructive pulmonary disease with (acute) lower respiratory infection (principal); I25.10 Atherosclerotic heart disease of native coronary artery without angina pectoris; I25.5 Ischemic cardiomyopathy; D50.9 Iron deficiency anemia, unspecified; I50.22 Chronic systolic (congestive) heart failure; E87.1 Hypo-osmolality and hyponatremia; J96.01 Acute respiratory failure with hypoxia; E83.51 Hypocalcemia; Z95.810 Presence of automatic (implantable) cardiac defibrillator; Z79.899 Other long term (current) drug therapy; Z79.82 Long term (current) use of aspirin; Z79.02 Long term (current) use of antithrombotics/antiplatelets; Z99.81 Dependence on supplemental oxygen; Z91.14 Patient's other noncompliance with medication regimen; F17.210 Nicotine dependence, cigarettes, uncomplicated
CPT/HCPCS: 36415; 36600; 71045; 80048; 82040; 82803; 83880; 84484; 85025; 93005; 94640; 96365; 96372; 96375; 96376; 97161; 97165; 99218; 99251; 99285; A4216; G0378; G0463; J2405

== ENCOUNTER 2018-08-18 12:47 | Emergency (ER) | payer MEDICARE, SELFPAY ==
[2018-08-15 05:54] VITALS: BMI 23.9
[2018-08-18 12:48] VITALS: BP 131/84; PULSE 95; RESP 24; TEMP 36.9; O2SAT 99; BMI 22.8
[2018-08-18 12:55] VITALS: BP 145/103; PULSE 99; RESP 28; O2SAT 96; O2SAT 98
--- NOTE | 2018-08-18 13:16 | EKG12_ITS ---
Test Reason : SOB Blood Pressure : / mmHG Vent. Rate : 095 BPM Atrial Rate : 095 BPM P-R Int : 190 ms QRS Dur : 098 ms QT Int : 394 ms P-R-T Axes : 086 -60 108 degrees QTc Int : 495 ms Normal sinus rhythm Possible Left atrial enlargement Left anterior fascicular block Septal infarct , age undetermined T wave abnormality, consider lateral ischemia Abnormal ECG Confirmed by PRETTY BARLOW, HIRA ([id number]), editor & co founder AMADOR EDMONDS ([id number] on 08/21/2018 1:02:26 PM Referred By: KG Confirmed By:HIRA OLSEN MD
[2018-08-18 13:25] VITALS: O2SAT 100
--- NOTE | 2018-08-18 13:25 | ED.DCSUM_ITS ---
- ER Visit Summary Date of Service: 08/18/18 Chief Complaint: Shortness of breath History of Present Illness: The patient is a 57 M recently hospitalized and discharged. Patient states his been short of breath for days. With wheezing. Dark productive sputum. No hemoptysis. No chest pain. No history of DVT or PE. He does have an extensive history of COPD with prior AL, CHF and cardiac stents. He has a pacemaker defibrillator. He denies any significant weight gain or swelling to his legs. Physical Examination: Middle-aged male. No acute distress. He is 99% on 2 L. H EENT exam unremarkable. Neck nontender no JVD. Lungs prolonged expiratory phase with a few scattered wheezes. No rales or rhonchi. Equal symmetrical. Dry cough. Heart regular rate and rhythm no murmur. Abdomen is soft nontender. Patient is moving all 4 extremities. They are neurovascularly intact. He has trace equal symmetrical edema both lower extremities. Calves are nontender without cords. Neurologically is awake alert with no focal motor deficits. Test Results: CBC shows a white count 8. Hemoglobin 12.3. Electrolytes unremarkable. Normal creatinine and gap. Troponin normal. BNP is elevated 3141 but he has no significant signs of failure. Chest x-ray shows chronic changes with a left-sided defibrillator but no acute process. Read both by myself and the radiologist. EKG is a sinus rhythm rate of 95 inverted T waves in V5 and V6 but completely unchanged from prior EKG from 08/15/2018. Emergency Department Course and Treatment: Male with a history of COPD and cardiac disease with recent admission. Complaining of shortness of breath. He will be given both albuterol and DuoNeb aerosols. Repeat exam at 1555 patient is doing well. I went over all test results with him. He is comfortable being discharged to home. Treatment Plan: Continue on his current medications. Follow-up with his primary care provider. Disposition: Discharge Impression: Acute dyspnea Acute exacerbation of COPD This note was generated with [employer] dictation software. It may contain incorrect words, spelling, and punctuation that were not noted in review of the chart prior to signing ED Disposition - Plan for ED Patient: Chief Complaint: Shortness of Breath Referrals: Berna Oquendo NP-C [Primary Care Provider] -
[2018-08-18 13:28] VITALS: PULSE 95; RESP 18; O2SAT 99
[2018-08-18] MEDS: Ipratropium/Albuterol Sulfate 3 ML AMPUL.NEB INHALATION (13:28)
[2018-08-18] MEDS: Albuterol 2.5 MG/3 ML VIAL.NEB. INHALATION ×2 (13:28)
--- NOTE | 2018-08-18 13:38 | ED.RN ---
pt arrives to the department complaining of sob. hx of copd. pt is 100% on room and posterior lung crews are clear to auscultation. pt states he is out of breathing tx at home. when asked who is prescribing medications he states a dr in the [facility]. he has multiple areas of adhesive from prior bandages on bilateral forearms and a bandage still placed overtop old location for a prior iv start. when asked how often he shower he stated daily. i recommeded the use of alcohol to remove the adhesive. pt states he is able to care for himself at home. dr Day made aware. pt has been to ed 5 times in the last month for same complaint. pt apperance is concerning for self care deficit. dr day was in ag[place]. case management consult placed. larry nunez rn.
[2018-08-18 13:46] LABS: Absolute Lymphocyte Count 1.15 X10^3/ul (0.83-4.51); Absolute Neutrophil Count 6.4 X10^3/uL (2.0-7.7); Basophil# 0.01 X10^3/uL; Basophil% 0.1 % (0-1); Eosinophil# 0.04 X10^3/uL; Eosinophils% 0.5 % (0-5); Hematocrit 38.4 % (40-54); Hemoglobin 12.3 g/dl (13.0-16.5); Lymphocyte # 1.15 X10^3/ul (4.0); Lymphocyte % 14.1 % (19-41); Mean Corpuscular Hgb 29.3 pg (27.0-32.0); Mean Corpuscular Volume 91.4 fL (80-94); Monocyte# 0.55 X10^3/uL; Monocyte% 6.8 % (0-10); Neutrophil # 6.37 X10^3/uL (2.7-7.7); Neutrophil % 78.3 % (47-70); Platelet Count 209 K/mm3 (150-450); RBC Distribution Width CV 14.8 % (11.6-14.6); White Blood Count 8.1 K/mm3 (4.4-11.0)
[2018-08-18 13:47] LABS: POSITIVE COUNT NO; POSITIVE DIFFERENTIAL NO; POSITIVE MORPHOLOGY NO
--- NOTE | 2018-08-18 13:54 | RAD_ITS ---
STUDY: X-RAY CHEST REASON FOR EXAM: Male, 57 years old. Shortness of breath TECHNIQUE: Frontal and lateral views of the chest COMPARISON: 08/15/2018 FINDINGS: The lungs are clear. There are no pleural effusions. There is no pneumothorax. The heart is enlarged, but stable in size. Again noted is a pacemaker. The visualized osseous structures are within normal limits. RAD/Chest PA and Lateral IMPRESSION: No acute thoracic pathology. Electronically Signed: Edgar Jackman, at 14:26 EST Tel , Service support ,
[2018-08-18 14:02] LABS: Anion Gap 7 (5-15); BUN 20 mg/dL (7-18); BUN/Creat Ratio 25.2 RATIO (10-20); Calcium,Total 8.3 mg/dL (8.5-10.1); Chloride 102 mmol/L (98-107); EST Glomerular Filtration Rate 106 mL/min (>60); Est Glom Filt Rate - Afr Amer 128 mL/min (>60); Estimated Creatinine Clearance 95.68 ml/min; Glucose 101 mg/dL (74-106); Potassium 4.4 mmol/L (3.5-5.1); Sodium Level 136 mmol/L (136-145)
[2018-08-18 14:11] LABS: BNP,B-Type NATRIURETIC PEPTIDE 3141.2 pg/mL (0-100)
[2018-08-18 14:53] VITALS: BP 162/101; PULSE 96; RESP 14; O2SAT 98
--- NOTE | 2018-08-18 16:02 | ED.DEP ---
ED Disposition - Plan for ED Patient: Disposition: Home or Assisted Living Chief Complaint: Shortness of Breath Instructions: ED COPD Flare Referrals: Berna Oquendo NP-C [Primary Care Provider] - As Needed Additional Instructions: Continue your current medications.
[2018-08-18 16:11] VITALS: BP 132/87; PULSE 93; RESP 14; O2SAT 100
--- NOTE | 2018-08-19 09:15 | CM.ED ---
Social Work Note Referral from Elva Seay RN for frequent visits and concerns with ability to care for self. Upon review of chart pt was recently hospitalized on [facility], and discharge home. There is no contact information. Will review pt's chart for a potential care plan as well as watch for visits to see if pt would be agreeable to a palliative care consult. SW to continue to follow and assist. Aline Matthew SERVICE COORDINATOR, AUNDREA
== END 2018-08-18 16:12 | disposition home or self-care (01) ==
PROVIDERS: Emergency Provider Emergency Medicine; Family Provider Nurse Practitioner Family; PCP Nurse Practitioner Family
DX: J44.1 Chronic obstructive pulmonary disease with (acute) exacerbation (principal); R06.00 Dyspnea, unspecified; I25.2 Old myocardial infarction; I50.9 Heart failure, unspecified; Z95.5 Presence of coronary angioplasty implant and graft; Z95.810 Presence of automatic (implantable) cardiac defibrillator; Z79.82 Long term (current) use of aspirin; Z79.899 Other long term (current) drug therapy; F17.200 Nicotine dependence, unspecified, uncomplicated
CPT/HCPCS: 71046; 80048; 83880; 84484; 85025; 93005; 94640; 99284

== ENCOUNTER 2018-08-20 22:49 | Emergency (ER) | payer MEDICARE, SELFPAY ==
[2018-08-20 22:50] VITALS: BP 138/83; PULSE 103; RESP 24; TEMP 36.7; O2SAT 99; BMI 24.5
[2018-08-20 23:15] VITALS: O2SAT 100
--- NOTE | 2018-08-20 23:33 | RAD_ITS ---
STUDY: X-RAY CHEST REASON FOR EXAM: Male, 57 years old. Shortness of breath and weakness. TECHNIQUE: PA and lateral views of the chest. COMPARISON: August 18, 2018. FINDINGS: Left-sided intercardiac pacemaker is present. Cardiac monitoring leads are present. There is hyperinflation of the lungs consistent with chronic obstructive lung disease (COPD). There is perihilar interstitial thickening. There is suggestion for a patchy right basilar airspace consolidation and/or atelectasis. There is suggestion for right-sided perihilar airspace disease. There is no demonstrated pleural abnormality. There is mild cardiac enlargement. Normal mediastinum and alberto. There is prominence of the pulmonary hilar arteries without peripheral pulmonary vascular congestion. There is atherosclerotic calcification of the aortic arch with tortuosity. There is demineralization of the osseous structures. There is straightening of the normal thoracic kyphosis with multilevel spondylosis. Normal visualized ribs, clavicles, and shoulders. There is no demonstrated abnormality of the visualized soft tissue structures of the upper abdomen. RAD/Chest PA and Lateral IMPRESSION: Increasing right basilar and perihilar airspace disease possibly representing pneumonia. Electronically Signed: Sarah Sarabia MD at 0:38 EST , Service support ,
--- NOTE | 2018-08-20 23:33 | EKG12_ITS ---
Test Reason : Blood Pressure : / mmHG Vent. Rate : 098 BPM Atrial Rate : 098 BPM P-R Int : 196 ms QRS Dur : 096 ms QT Int : 374 ms P-R-T Axes : 075 -62 097 degrees QTc Int : 477 ms Normal sinus rhythm Possible Left atrial enlargement Left axis deviation Septal infarct , age undetermined Abnormal ECG Confirmed by PRETTY BARLOW, HIRA ([id number]), proposal editor AMADOR EDMONDS ([id number]) on 08/23/2018 1:22:57 PM Referred By: VASILE Confirmed By:HIRA OLSEN MD
[2018-08-20] MEDS: LORazepam 2 MG/ML Syringe 0.5 MG IV (23:40)
[2018-08-20 23:41] VITALS: O2SAT 99
[2018-08-21 00:06] LABS: BUN 24 mg/dL (7-18); EST Glomerular Filtration Rate 105 mL/min (>60); Estimated Creatinine Clearance 96.19 ml/min; Glucose 90 mg/dL (74-106)
[2018-08-21 00:07] LABS: Anion Gap 5 (5-15); Calcium,Total 8.2 mg/dL (8.5-10.1); Chloride 106 mmol/L (98-107); Est Glom Filt Rate - Afr Amer 127 mL/min (>60); Potassium 4.6 mmol/L (3.5-5.1); Sodium Level 136 mmol/L (136-145)
--- NOTE | 2018-08-21 00:11 | ED.RN ---
family left phone number to call if patient needs anything [phone]
[2018-08-21 00:13] LABS: Absolute Lymphocyte Count 1.19 X10^3/ul (0.83-4.51); Absolute Neutrophil Count 5.5 X10^3/uL (2.0-7.7); Basophil# 0.06 X10^3/uL; Basophil% 0.8 % (0-1); Eosinophil# 0.21 X10^3/uL; Eosinophils% 2.8 % (0-5); Hemoglobin 11.5 g/dl (13.0-16.5); Lymphocyte # 1.19 X10^3/ul (4.0); Lymphocyte % 15.8 % (19-41); Mean Corp Hgb Conc 31.9 g/gl (32-36); Mean Corpuscular Hgb 29.5 pg (27.0-32.0); Mean Corpuscular Volume 92.3 fL (80-94); Monocyte# 0.56 X10^3/uL; Monocyte% 7.5 % (0-10); Neutrophil # 5.48 X10^3/uL (2.7-7.7); POSITIVE COUNT NO; POSITIVE DIFFERENTIAL NO; POSITIVE MORPHOLOGY NO; Platelet Count 160 K/mm3 (150-450); RBC Distribution Width CV 14.9 % (11.6-14.6); RBC Distribution Width SD 49.6 fl (35.1-43.9); White Blood Count 7.5 K/mm3 (4.4-11.0)
[2018-08-21] MEDS: DiphenhydrAMINE 50 MG/ML Syringe 25 MG IV (00:44)
--- NOTE | 2018-08-21 00:50 | CT_ITS ---
STUDY: CTA CHEST REASON FOR EXAM: Male, 57 years old. Shortness of breath and weakness. RADIATION DOSAGE (If Supplied By Facility): CTDIvol = ( 10.01 ) mGy, DLP = ( 365.57 ) mGycm TECHNIQUE: The examination was performed with the intravenous administration of 100 ml of Isovue 370 contrast material. Post-processing of the angiographic images was performed, with multiplanar reformation and 3D reconstruction. Individualized dose optimization techniques were used for this CT. COMPARISON: None. FINDINGS: Patient has a left-sided intracardiac pacemaker. Normal enhancement of the main pulmonary artery and right and left pulmonary arteries. Normal enhancement of the bilateral peripheral pulmonary arteries. There is no demonstrated pulmonary embolism. There is prominence of the main pulmonary arteries without peripheral pulmonary vascular congestion. There is atherosclerotic calcification of the aortic arch with tortuosity. There is no demonstrated aortic dissection. There is cardiomegaly. There are calcifications of the coronary arteries. There are prominent prevascular lymph nodes. There appear to be enlarged precarinal and pretracheal lymph nodes. There appears to be a right-sided hilar lymphadenopathy. There are also prominent left-sided hilar lymph nodes. Normal visualized trachea and bronchi. The lungs are hyper expanded, with flattening of the hemidiaphragms. There are patchy lucencies visible throughout both upper lobes that probably represent centrilobular emphysema. The lungs otherwise appear to be clear. There is mild prominence of bronchovascular markings. Normal pleura. Normal chest wall structures. The bones appear osteopenic. There is multilevel thoracic spondylosis. Normal visualized upper abdomen. CT/CTA Chest W/WO Contrast IMPRESSION: 1. No CTA demonstrated pulmonary embolism or arterial dissection. 2. Cardiomegaly and sequela of coronary artery vascular disease. 3. Nonspecific mediastinal and hilar lymphadenopathy. Electronically Signed: Sarah Sarabia MD at 2:31 EST , Service support ,
[2018-08-21 00:57] VITALS: BP 143/90; PULSE 84; RESP 24; O2SAT 99
--- NOTE | 2018-08-21 02:02 | ED.RN ---
PT STATES I AM WALKING OUT OF HERE. THIS RN UPDATED PATIENT ON PLAN OF CARE AND HE STATES YOU ALL HAVEN'T DONE SHIT. I WILL BE BACK IN THE MORNING TO TALK TO THE CLINICAL RESEARCH TECHNICIAN. PT GIVEN AMA PAPERWORK AND RISKS WERE EXPLAINED. PT RETAINED COPY OF PAPERWORK FOR HIS FILES. PATIENT'S FRIEND RUCHI CALLED FOR A RIDE BY STAFF. IV D/C'D AND INTACT. PT AMBULATED OUT OF ROOM
[2018-08-21 02:09] VITALS: BP 144/110; PULSE 99; RESP 30; O2SAT 96
--- NOTE | 2018-08-21 02:46 | ED.DCSUM_ITS ---
- ER Visit Summary Date of Service: 08/21/18 Chief Complaint: Shortness of breath History of Present Illness: The patient is a 57 M who presents the emergency department shortness of breath. He states this is been present for the past 5-7 days since he was in the hospital. He was admitted overnight for COPD exacerbation/anxiety. He tells me that that was the second time this month he was admitted. It began a month he had a CT Altagracia of the chest as well. He is a smoker with history of COPD nonischemic cardiomyopathy has an ICD in place and has had cardiac heart catheterization with stent. He states that he has had some chest tightness. Though he tells me none of this has changed since his last hospitalization. The patient is requesting a fan and is very upset that we do not have a fan readily available for him. He states that he is very hot. We advised that perhaps he should remove his stocking hat and coat and that might help him not to be so hot. Physical Examination: Afebrile vital signs show slight tachycardia and tachypnea. He is 98 per sent on nasal cannula and 96 on room air. Gen: Well-nourished well-developed Head: Normocephalic atraumatic Eyes: Perrl EOMI ENT: TMs clear no rhinorrhea moist mucous membranes Neck: Supple no lymphadenopathy no JVD nontender CVS: Regular rate and tachycardic rhythm no murmurs normal S1-S2 Respiratory: Tachypneic but lung sounds are clear bilaterally chest nontender Abdomen: Soft nontender nondistended normal bowel sounds no masses Back: Nontender Extremity: Nontender no edema Skin: Normal color no rash Neuro: alert orientated ?3 CN II-XII intact normal strength sensation reflexes gait cerebellar Psych: Irritable and anxious Test Results: EKG shows a sinus rhythm at a rate of 98. White count 7.5 hemoglobin 11.5. Troponin 0 0.04. Chest x-ray showed chronic changes and possible developing infiltrate. CT Altagracia of the chest was obtained. This was negative for pulmonary embolism or for infiltrate. Emergency Department Course and Treatment: Patient received Ativan and Benadryl. He also received breathing treatment. He states that nobody is doing anything to help him and that nobody has evaluated him. He wishes to leave AMA. The patient appears to have the capacity to do so. The patient appears to be able to make a choice and communicate that choice. He understands risk benefits and alternatives. He understands the problem he is having treatment options risk of treatments and what will happen if he chooses no treatments. He can make logical rational decisions. Patient is a and O x3 not in the in all 3 drugs. 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 Impression: 1. Dyspnea 2. Left AMA This note was generated with [employer] dictation software. It may contain incorrect words, spelling, and punctuation that were not noted in review of the chart prior to signing ED Disposition - Plan for ED Patient: Disposition: Against Medical Advice Chief Complaint: Shortness of Breath Referrals: Berna Oquendo, DANA-C [Primary Care Provider] -
== END 2018-08-21 02:10 | disposition left against medical advice (07) ==
PROVIDERS: Emergency Provider Emergency Medicine; Family Provider Nurse Practitioner Family; PCP Nurse Practitioner Family
DX: R06.00 Dyspnea, unspecified (principal); Z53.21 Procedure and treatment not carried out due to patient leaving prior to being seen by health care provider; R07.89 Other chest pain; I25.10 Atherosclerotic heart disease of native coronary artery without angina pectoris; I50.9 Heart failure, unspecified; J44.9 Chronic obstructive pulmonary disease, unspecified; I42.8 Other cardiomyopathies; Z95.810 Presence of automatic (implantable) cardiac defibrillator; Z79.82 Long term (current) use of aspirin; Z79.899 Other long term (current) drug therapy; F17.200 Nicotine dependence, unspecified, uncomplicated
CPT/HCPCS: 71046; 71275; 80048; 84484; 85025; 93005; 96374; 96375; 99285; Q9967; A4216

== ENCOUNTER 2018-08-27 04:14 | Inpatient (IN) | payer MEDICARE, SELFPAY ==
[2018-08-27] VITALS (18 sets, daily range): BP systolic 119–167; BP diastolic 75–126; PULSE 60–108; RESP 12–32; TEMP 36.2–36.8; O2SAT 94–100; BMI 25.5; BMI 22.1; BMI 22.2
--- NOTE | 2018-08-27 04:17 | ED.RN ---
RN CALLED FOR EKG, PULLED OLD EKGS FOR
--- NOTE | 2018-08-27 04:32 | EKG12_ITS ---
Test Reason : SOB Blood Pressure : / mmHG Vent. Rate : 100 BPM Atrial Rate : 100 BPM P-R Int : 192 ms QRS Dur : 112 ms QT Int : 388 ms P-R-T Axes : 081 -66 119 degrees QTc Int : 500 ms Normal sinus rhythm Possible Left atrial enlargement Left anterior fascicular block Septal infarct (cited on or before 20-JUL-2018) ST & T wave abnormality, consider lateral ischemia Prolonged QT Abnormal ECG Confirmed by PRETTY BARLOW, HIRA ([id number]), editor sound TEZ PETERSON ([id number]) on 08/30/2018 2:22:29 PM Referred By: BETTY Confirmed By:HIRA OLSEN MD
--- NOTE | 2018-08-27 04:32 | RAD_ITS ---
STUDY: X-RAY CHEST REASON FOR EXAM: Male, 57 years old. Chronic SOB TECHNIQUE: Single frontal view of the chest. COMPARISON: 08/20/2018 FINDINGS: Single chamber defibrillator on the left. Chronic interstitial lung changes without superimposed acute alveolar disease. There is no demonstrated pleural abnormality. Stable cardiomediastinal silhouette. Normal mediastinum and alberto. Normal visualized pulmonary arteries. Normal visualized aortic arch and descending thoracic aorta. Normal visualized thoracic spine. Normal visualized ribs, clavicles, and shoulders. There is no demonstrated abnormality of the visualized soft tissue structures of the upper abdomen. RAD/Chest 1 View (Portable) IMPRESSION: Chronic interstitial lung changes without superimposed acute alveolar disease. Electronically Signed: Irwin Sykes MD at 5:57 EST Tel , Service support ,
[2018-08-27] MEDS: LORazepam 2 MG/ML Syringe 1 MG IV (04:40)
[2018-08-27 05:03] LABS: Anion Gap 12 (5-15); BUN 24 mg/dL (7-18); BUN/Creat Ratio 32.1 RATIO (10-20); Calcium,Total 8.2 mg/dL (8.5-10.1); Chloride 105 mmol/L (98-107); Creatinine, Serum 0.75 mg/dL (0.70-1.30); EST Glomerular Filtration Rate 113 mL/min (>60); Est Glom Filt Rate - Afr Amer 137 mL/min (>60); Glucose 101 mg/dL (74-106); Potassium 4.2 mmol/L (3.5-5.1); Sodium Level 138 mmol/L (136-145)
[2018-08-27 05:05] LABS: Absolute Lymphocyte Count 1.26 X10^3/ul (0.83-4.51); Absolute Neutrophil Count 5.7 X10^3/uL (2.0-7.7); Basophil# 0.04 X10^3/uL; Basophil% 0.5 % (0-1); Eosinophil# 0.18 X10^3/uL; Eosinophils% 2.4 % (0-5); Hematocrit 36.7 % (40-54); Hemoglobin 11.8 g/dl (13.0-16.5); Lymphocyte # 1.26 X10^3/ul (4.0); Lymphocyte % 16.7 % (19-41); Mean Corp Hgb Conc 32.2 g/gl (32-36); Mean Corpuscular Hgb 29.1 pg (27.0-32.0); Mean Corpuscular Volume 90.6 fL (80-94); Mean Platelet Vol. 9.3 fl (6.2-12.0); Monocyte# 0.36 X10^3/uL; Monocyte% 4.8 % (0-10); Neutrophil # 5.69 X10^3/uL (2.7-7.7); Neutrophil % 75.3 % (47-70); Platelet Count 125 K/mm3 (150-450); RBC Distribution Width CV 16.1 % (11.6-14.6); RBC Distribution Width SD 52.2 fl (35.1-43.9); Red Blood Count 4.05 M/mm3 (4.6-6.2); White Blood Count 7.6 K/mm3 (4.4-11.0)
[2018-08-27 05:08] LABS: Differential Indicated SCAN CRITERIA MET; POSITIVE COUNT YES; POSITIVE DIFFERENTIAL NO; POSITIVE MORPHOLOGY NO
[2018-08-27 05:20] LABS: Allen Test POS; Base Excess 0 mmol/L (-2 to +2); Bicarbonate 24.6 mmol/L (22-26); Blood Gas Specimen Type ART; EPAP 8; FI02 40; IPAP 18; PO2 198 mmHG (75-100); RR 12; SITE R Radial; SO2 100 % (95-99); Total Carbon Dioxide 26 mmol/L; pCO2 36.6 mmHg (35-45); pH 7.44 (7.35-7.45)
--- NOTE | 2018-08-27 05:26 | CPS ---
PT TAKEN OFF BIPAP -LEFT ON ROOM AIR-SAT 97% HR 98 RR 17-NO RESP DISTRESS NOTED AT THIS TIME-
[2018-08-27 05:36] LABS: BNP,B-Type NATRIURETIC PEPTIDE 2275.2 pg/mL (0-100)
[2018-08-27] MEDS: Furosemide 40 MG/4 ML Vial IV ×2 (06:41→18:06)
--- NOTE | 2018-08-27 06:45 | ED.DCSUM_ITS ---
- ER Visit Summary Date of Service: 08/27/18 Chief Complaint: Shortness of breath History of Present Illness: The patient is a 57 M who presents with shortness of breath. He states he has been increasingly short of breath over the past 2 weeks. This is severe. He has had 2 hospital admissions and several ER visits. He states that tonight he developed a fever of 101 and nausea with vomiting. He states he feels like he cannot breathe. He does complain of productive cough. Physical Examination: Afebrile hypertensive with blood pressure 145/110 pulse ox 100% on BiPAP respiratory rate 22 Patient is tachypneic with increased work of breathing but I do not appreciate rales rhonchi or wheezing Abdomen soft Patient does have mild pitting lower extremity edema Alert Test Results: EKG shows normal sinus rhythm at a rate of 100 with T wave inversions in V5 V6 1 and aVL. Labs notable for hemoglobin 11.8. Troponin 0 0.046. ABG is normal. Chest x-ray shows chronic changes without acute alveolar disease. Emergency Department Course and Treatment: Patient was given Ativan here. He was able to wean wean down off of BiPAP and eventually back to room air. He will maintain normal oxygen saturations but does occasionally desaturate but will quickly return to 97-100%. His beta natruretic peptide was significantly elevated. Although this is similar to the levels that he has been having during his recent multiple visits for shortness of breath it is significantly higher than what it was over the summer. Given indeterminate troponin and EKG changes I do feel he needs to be admitted for further evaluation. I do believe there is a component of just of heart failure exacerbation as well. He was given IV Lasix. He will be admitted. Treatment Plan: [] Disposition: Admit Impression: CHF exacerbation EKG changes This note was generated with [employer] dictation software. It may contain incorrect words, spelling, and punctuation that were not noted in review of the chart prior to signing ED Disposition - Plan for ED Patient: Chief Complaint: Shortness of Breath Referrals: Berna Oquendo, DANA-C [Primary Care Provider] -
[2018-08-27] MEDS: Ondansetron 4 MG/2 ML Vial IV (07:12)
[2018-08-27] MEDS: Enoxaparin 40 MG/0.4 ML Syringe SC (11:00)
--- NOTE | 2018-08-27 12:25 | CASEMGMT ---
[facility] Face to Face with patient for initial transition planning/care coordination assessment. RN SHELIA introduced self and role at [facility]. Patient lying in bed, alert and oriented. Patient willing to participate in assessment and is able to answer all questions appropriately. Care providers, pharmacy, and demographics verified. Patient wishes to discharge home, denies need for home health at this time. Patient states he has no further needs or concerns at this time. CM to follow for discharge planning needs that may arise. PCP: Jere SATELLITE COMMUNICATIONS ENGINEER Specialists: Obdulio, Sandwich Peddler Preferred Pharmacy: [facility] Insurance: [employer] Prescription Benefit: [employer] Living Will/HPOA: Yes, brother Angel Peralta LNOK: Brother, Niece Living Arrangements: Patient lives with Niece in 2 story house with bed and bath on 1st floor. Transportation: Self/Niece DME/HHC: Patient declines having DME. Patient states that he needs a walker and oxygen at home. Patient currently not on oxygen and RN SHELIA explained that patient would need to be tested to see if he qualifies. Patient adamant that he will have oxygen at home. Disposition Plan: Patient to discharge home with family support and follow-up plans in place. Will monitor for home oxygen. So SCHMITT, RN, CM
[2018-08-27] MEDS: Ipratropium/Albuterol Sulfate 3 ML AMPUL.NEB INHALATION ×2 (12:56→20:42)
[2018-08-27] MEDS: diazePAM 2 MG Tablet PO (15:47)
[2018-08-27 16:11] LABS: Magnesium 1.7 mg/dL (1.6-2.6)
[2018-08-27] MEDS: 0.9% NaCl Peripheral Flush Adult/Peds IV (18:06)
--- NOTE | 2018-08-27 18:43 | PCM.HP.STD ---
Problem List (1) Non-ischemic cardiomyopathy Status: Chronic (2) ICD (implantable cardioverter-defibrillator) in place Status: Chronic (3) History of coronary artery stent placement Status: Chronic Comment: PCI-RCA and CX (4) Iron deficiency anemia Status: Chronic Qualifiers: (5) COPD (chronic obstructive pulmonary disease) Status: Chronic Qualifiers: (6) Tobacco abuse Status: Chronic (7) Medical non-compliance Status: Chronic (8) SOB (shortness of breath) Status: Acute History of Present Illness Date of Admission: 08/27/18 Chief Complaint: SOB The patient is a 57 year old M with a medical history as below who presents with a few days of worsening SOB. He states that he has a very bad heart and that he takes his medications regularly. He was recently in the hospital with a COPD exacerbation and he feels that he has never recovered from that. He was given a script for prednisone on discharge which he never filled. He has also been coughing which has been non-productive. He presented to the ER on BiPAP and was able to be weaned when given ativan. He was found to have an indeterminate troponin and his EKG had T wave inversion in V5 and V6 which weren't present on 08/20, but they were present on 08/18. His troponin elevation was at his baseline and lower than when he had his cath in november. He was given a dose IV lasix in the ER. He denies fevers, chills, lightheadedness or dizziness. Past Medical History Past Medical History (Chronic Problems): Chronic Problems (Last Updated 08/16/18 @ 09:53 by Justin Zamarripa DO) COPD with acute exacerbation (Chronic) Non-ischemic cardiomyopathy (Chronic) ICD (implantable cardioverter-defibrillator) in place (Chronic) History of coronary artery stent placement (Chronic) PCI-RCA and CX Atherosclerosis of coronary artery of [place] heart without angina pectoris (Chronic) LEFT HEART ASSESSMENT Left Ventricular Ejection Fraction: by LV Gram 10-15 % Global Hypokinesis - Severe Depressed Left Ventricular systolic function Normal Left Ventricular End Diastolic Pressure LEFT MAIN: Non-obstructive LEFT ANTERIOR DECENDING ARTERY: Previously placed stent is patent DIAGONAL 1: Ostial - Mild luminal irregularities less than 30% DIAGONAL 2: Proximal - Non-obstructive CIRCUMFLEX ARTERY: MID CIRC: Previously placed stent is patent RIGHT CORONARY ARTERY: MID RCA: Previously placed stent has instent 20 % restenosis with a new at distal edge of stent Iron deficiency anemia (Chronic) COPD (chronic obstructive pulmonary disease) (Chronic) Tobacco abuse (Chronic) Medical non-compliance (Chronic) Ischemic cardiomyopathy (Chronic) Medical History: Medical History (Last Updated 08/16/18 @ 09:53 by Justin Zamarripa DO) Non-ischemic cardiomyopathy (Chronic) I42.8 Atherosclerosis of coronary artery of [place] heart without angina pectoris (Chronic) I25.10 LEFT HEART ASSESSMENT Left Ventricular Ejection Fraction: by LV Gram 10-15 % Global Hypokinesis - Severe Depressed Left Ventricular systolic function Normal Left Ventricular End Diastolic Pressure LEFT MAIN: Non-obstructive LEFT ANTERIOR DECENDING ARTERY: Previously placed stent is patent DIAGONAL 1: Ostial - Mild luminal irregularities less than 30% DIAGONAL 2: Proximal - Non-obstructive CIRCUMFLEX ARTERY: MID CIRC: Previously placed stent is patent RIGHT CORONARY ARTERY: MID RCA: Previously placed stent has instent 20 % restenosis with a new at distal edge of stent COPD exacerbation (Acute) J44.1 Recent discharge 12/14/17 following treatment for acute on chronic systolic CHF exacerbation, acute COPD exacerbation with acute hypoxic respiratory failure and MRSA HCAP PNA. Acute respiratory failure with hypoxemia (Inactive) J96.01 Iron deficiency anemia (Chronic) D50.9 NSVT (nonsustained ventricular tachycardia) (Inactive) I47.2 COPD (chronic obstructive pulmonary disease) (Chronic) J44.9 Tobacco abuse (Chronic) Z72.0 Medical non-compliance (Chronic) Z91.19 Ischemic cardiomyopathy (Chronic) I25.5 Acute on chronic systolic (congestive) heart failure I50.23 Restless leg syndrome G25.81 Acute bronchitis (Resolved) J20.9 HCAP (healthcare-associated pneumonia) (Resolved) J18.9 Recent discharge 12/14/17 following treatment for acute on chronic systolic CHF exacerbation, acute COPD exacerbation with acute hypoxic respiratory failure and MRSA HCAP PNA. Hypotension (Resolved) I95.9 MRSA (methicillin resistant Staphylococcus aureus) infection (Resolved) A49.02 Recent discharge 12/14/17 following treatment for acute on chronic systolic CHF exacerbation, acute COPD exacerbation with acute hypoxic respiratory failure and MRSA HCAP PNA. Near syncope (Resolved) R55 Elevated troponin (Inactive) R74.8 Allergies No Known Allergies Allergy (Verified 08/27/18 04:20) Home Medications: Ambulatory Orders Medication Instructions Recorded Nitroglycerin [Nitrostat] 0.4 mg SUBLINGUAL Q5M PRN #1 bottle 12/14/17 aspirin 81 mg chewable tablet 81 mg PO DAILY@0800 #30 tab.chew 01/11/18 atorvastatin 80 mg tablet 80 mg PO QHS #30 tab 01/11/18 carvedilol 6.25 mg tablet 6.25 mg PO BID #60 tab 01/11/18 clopidogrel 75 mg tablet 75 mg PO DAILY #30 tab 01/11/18 furosemide 40 mg tablet 40 mg PO DAILY #30 tab 01/11/18 isosorbide mononitrate ER 30 mg 30 mg PO DAILY #30 tab 01/11/18 tablet,extended release 24 hr losartan 25 mg tablet 25 mg PO DAILY #30 tab 01/11/18 potassium chloride ER 20 mEq 20 meq PO DAILY #30 tab 01/11/18 tablet,extended release(part/cryst) ferrous gluconate 324 mg (37.5 mg 325 mg PO BIDCM #60 tab 01/15/18 iron) tablet Acetaminophen [Tylenol Tablet] 650 mg PO Q6H PRN PRN tablet 08/05/18 Albuterol Sulfate [Ventolin Hfa] 18 gm IH [id number] PRN #1 08/05/18 [id number] Ascorbic Acid [Vitamin C] 500 mg PO BIDCM 08/27/18 Gabapentin [Neurontin] 600 mg PO QHS 08/27/18 Guaifenesin [Mucinex] 1,200 mg PO BID 08/27/18 Prednisone 10 mg PO UD 08/27/18 Surgical History: Surgical History (Last Updated 08/15/18 @ 10:13 by Justin Zamarripa DO) ICD (implantable cardioverter-defibrillator) in place (Chronic) Z95.810 History of coronary artery stent placement (Chronic) Z95.5 PCI-RCA and CX History of coronary artery stent placement Z95.5 [id number] and Cx History of left heart catheterization Onset Date: ~12/14/17 Z98.890 CORONARY ANGIOGRAPHY DOMINANCE: Right Dominant LEFT HEART ASSESSMENT Left Ventricular Ejection Fraction: by LV Gram 10-15 % Global Hypokinesis - Severe Depressed Left Ventricular systolic function Normal Left Ventricular End Diastolic Pressure LEFT MAIN: Non-obstructive LEFT ANTERIOR DECENDING ARTERY: Previously placed stent is patent DIAGONAL 1: Ostial - Mild luminal irregularities less than 30% DIAGONAL 2: Proximal - Non-obstructive CIRCUMFLEX ARTERY: MID CIRC: Previously placed stent is patent RIGHT CORONARY ARTERY: MID RCA: Previously placed stent has instent 20 % restenosis with a new at distal edge of stent Surgical History: - - PCI x 10-11. Psychiatric History: No pertinent psych hx Smoking Status: Current some day smoker - *Family History Maternal Family History: Family History (Last Reviewed 08/15/18 @ 05:19 by Marcus Mi MD) Father CAD (coronary artery disease) Heart disease Mother CAD (coronary artery disease) Heart disease Aunt Cancer Brother Heart disease Hypertension History Items: Heart Disease Paternal Family History: Family History (Last Reviewed 08/15/18 @ 05:19 by Marcus Mi MD) Father CAD (coronary artery disease) Heart disease Mother CAD (coronary artery disease) Heart disease Aunt Cancer Brother Heart disease Hypertension History Items: Heart Disease Review of Systems Constitutional: Denies: Chills, Fever, Weight Change HEENT: Denies: Head Aches, Sinus Congestion, Sinus Drainage Cardiovascular: Denies: Chest Pain, Palpitations Respiratory: Reports: Cough, Shortness of Breath, Shortness of breath upon exertion. Denies: Shortness of breath at rest, Sputum production Gastrointestinal: Denies: Abdominal Pain, Nausea, Vomiting Genitourinary: Denies: Dysuria Musculoskeletal: Denies: Joint Pain, Joint Tenderness Skin: Denies: Rash, Wounds Neurological: Denies: Numbness, Tingling, Focal weakness Psychiatric: Denies: Anxiety, Depression, Homicidal Ideations, Suicidal Ideations Hematologic/ Lymphatic: Denies: Easy Bruising, Easy Bleeding VTE Information - Inpt Only VTE Present on Admission: No Patient Problems: Active and Suspected Problems (Last Updated 08/16/18 @ 09:53 by Justin Zamarripa DO) SOB (shortness of breath) (Acute) - Physical Exam General: Alert, Oriented x3, Cooperative, No apparent distress HEENT: Atraumatic, PERRLA, EOMI, Normocephalic Oral: Moist Mucosa Neck: Supple, No JVD Lungs: Normal air movement, No rhonchi, No wheeze, Diminished, Rales Cardiovascular: Regular rate, Regular Rhythm, Normal S1, Normal S2, No murmurs Abdomen: Soft, Non Tender, Non-Distended, No Hepato-splenomegaly Extremities: No edema, Capillary Refill Less than 3 Seconds Skin: No rashes, No breakdown Neurological: Neuro grossly intact, Sensory exam intact to light touch and pain Psych/Mental Status: Normal Affect, Appropriate Vital Signs Temp Pulse Resp BP Pulse Ox 98 F 90 16 120/100 H 99 08/27/18 18:00 08/27/18 18:00 08/27/18 18:00 08/27/18 18:00 08/27/18 18:00 Oxygen Flow Rate (L/min) 2 Oxygen Delivery Method Room Air Weight: 146 lb 2.664 oz Body Mass Index (BMI) 22.1 Intake and Output for Last 24 Hours 08/25/18 08/26/18 08/27/18 23:59 23:59 23:59 Intake Total 240 / 240 Output Total 800 / 800 Balance -560 / -560 Microbiology Past 72 Hours 08/27/18 04:55 Influenza Types A,B Direct FA (SHARON) - Final Mucosa - Nasopharyngeal Laboratory Tests Past 24 Hrs 08/27/18 08/27/18 08/27/18 04:18 04:18 04:18 WBC 7.6 RBC 4.05 L Hgb 11.8 L Hct 36.7 L MCV 90.6 MCH 29.1 MCHC 32.2 RDW 16.1 H RDW Differential 52.2 H Plt Count 125 L MPV 9.3 Immature Gran % (Auto) 0.300 Neut % (Auto) 75.3 H Lymph % (Auto) 16.[address] [place] % (Auto) 4.8 Eos % (Auto) 2.4 Baso % (Auto) 0.5 Absolute Neuts (auto) 5.7 Absolute Lymphs (auto) 1.26 Total Counted Not Reportable Differential Comment Specimen Type Sample Site pH Bicarbonate Actual POC Total CO2 Base Excess O2 Saturation O2 % ABG pCO2 ABG pO2 Alexis Test Respiration Rate O2 Delivery Device EPAP IPAP Blood Gas Notified Whom Sodium 138 Potassium 4.2 Chloride 105 Carbon Dioxide 21.0 Anion Gap 12 BUN 24 H Creatinine 0.75 Estim Creat Clear Calc 102.60 Est GFR (MDRD) Af Amer 137 Est GFR (MDRD) Non-Af 113 BUN/Creatinine Ratio 32.1 H Glucose 101 Calcium 8.2 L Magnesium Troponin I 0.046 H B-Natriuretic Peptide 2275.2 H Urine Opiates Screen Urine Methadone Screen Ur Barbiturates Screen Ur Phencyclidine Scrn Ur Amphetamines Screen U Methamphetamin-MDMA U Benzodiazepines Scrn Urine Cocaine Screen U Cannabinoids Screen Ur Drug Screen Comment 08/27/18 08/27/18 08/27/18 04:18 05:17 18:34 WBC RBC Hgb Hct MCV MCH MCHC RDW RDW Differential Plt Count MPV Immature Gran % (Auto) Neut % (Auto) Lymph % (Auto) [place] % (Auto) Eos % (Auto) Baso % (Auto) Absolute Neuts (auto) Absolute Lymphs (auto) Total Counted Differential Comment Specimen Type ART Sample Site R Radial pH 7.44 Bicarbonate Actual 24.6 POC Total CO2 26 Base Excess 0 O2 Saturation 100 H O2 % 40 ABG pCO2 36.6 ABG pO2 198 H Alexis Test POS Respiration Rate 12 O2 Delivery Device Bi / C PAP EPAP 8 IPAP 18 Blood Gas Notified Whom ED Sodium Potassium Chloride Carbon Dioxide Anion Gap BUN Creatinine Estim Creat Clear Calc Est GFR (MDRD) Af Amer Est GFR (MDRD) Non-Af BUN/Creatinine Ratio Glucose Calcium Magnesium 1.7 Troponin I B-Natriuretic Peptide Urine Opiates Screen Pending Urine Methadone Screen Pending Ur Barbiturates Screen Pending Ur Phencyclidine Scrn Pending Ur Amphetamines Screen Pending U Methamphetamin-MDMA Pending U Benzodiazepines Scrn Pending Urine Cocaine Screen Pending U Cannabinoids Screen Pending Ur Drug Screen Comment Assessment/Plan All Active Problems (Last Updated 08/16/18 @ 09:53 by Justin Zamarripa DO) SOB (shortness of breath) (Acute) Elevated troponin (Resolved) COPD exacerbation (Acute) Acute bronchitis (Resolved) HCAP (healthcare-associated pneumonia) (Resolved) Hypotension (Resolved) MRSA (methicillin resistant Staphylococcus aureus) infection (Resolved) Near syncope (Resolved) 1. Acute on chronic systolic CHF/Acute hypoxic respiratory failure/HLD - He had a cath in november which showed normal coronary arteries on the left but his RCA stent had a 20% re-instent stenosis - His EF was 15-20% - We called the pharmacy that stated he hadnt picked up his meds since March - I will restart him on all of his medications that he should be on given his systolic dysfunction and monitor - No echo repeat as he had a cath less than a year ago - Repeat troponin - No chest pain to think he has worsening RCA stenosis since he has not been taking his ASA and plavix, will resume the antiplatelets - C/w his statin - LAsix 40 mg IV BID - We will need to investigate if he uses another pharmacy 2. Iron deficiency anemia - H/H is at baseline at 11.8 - continue with replacement 3. COPD - I dont think he has an acute exacerbation at the moment - Will provide duoneb DVT: Lovenox Diet: Cardiac Code Visit Inpatient E&M: 00997 Init Hosp L3
[2018-08-27 20:13] LABS: Amphetamine Urine VISTA POSITIVE (<1000 ng/mL); Barbiturate Urine VISTA NEGATIVE (< 200 ng/mL); Benzodiazepine Urine VISTA NEGATIVE (< 200 ng/mL); Cocaine Urine VISTA NEGATIVE (< 300 ng/mL); Ecstacy Urine VISTA NEGATIVE (< 500 ng/mL); Methadone Urine VISTA NEGATIVE (< 300 ng/mL); PCP Urine VISTA NEGATIVE (< 25 ng/mL); THC Urine VISTA NEGATIVE (< 50 ng/mL); Vista UDS pH Range 6
[2018-08-27] MEDS: Atorvastatin Calcium 80 MG Tablet PO (21:33)
[2018-08-27] MEDS: Carvedilol 6.25 MG Tablet PO (21:33)
[2018-08-27] MEDS: Gabapentin 600 MG Tablet PO (21:34)
[2018-08-27] MEDS: Acetaminophen 325 MG Tablet 650 MG PO (22:02)
[2018-08-28] VITALS (10 sets, daily range): BP systolic 99–119; BP diastolic 64–74; PULSE 73–82; RESP 14–18; TEMP 36.3–36.6; O2SAT 93–99
[2018-08-28 06:16] LABS: Absolute Lymphocyte Count 0.91 X10^3/ul (0.83-4.51); Absolute Neutrophil Count 4.1 X10^3/uL (2.0-7.7); Basophil# 0.03 X10^3/uL; Basophil% 0.5 % (0-1); Eosinophil# 0.17 X10^3/uL; Hemoglobin 12.4 g/dl (13.0-16.5); Lymphocyte # 0.91 X10^3/ul (4.0); Lymphocyte % 16.2 % (19-41); Mean Corpuscular Hgb 28.8 pg (27.0-32.0); Mean Corpuscular Volume 92.8 fL (80-94); Mean Platelet Vol. 9.7 fl (6.2-12.0); Monocyte# 0.39 X10^3/uL; Neutrophil % 73.1 % (47-70); Platelet Count 144 K/mm3 (150-450); RBC Distribution Width CV 16.1 % (11.6-14.6); RBC Distribution Width SD 54.1 fl (35.1-43.9); Red Blood Count 4.31 M/mm3 (4.6-6.2); White Blood Count 5.6 K/mm3 (4.4-11.0)
[2018-08-28 06:26] LABS: POSITIVE COUNT NO; POSITIVE DIFFERENTIAL NO; POSITIVE MORPHOLOGY NO
[2018-08-28 06:27] LABS: Anion Gap 5 (5-15); BUN 28 mg/dL (7-18); BUN/Creat Ratio 26.2 RATIO (10-20); Chloride 103 mmol/L (98-107); Creatinine, Serum 1.07 mg/dL (0.70-1.30); EST Glomerular Filtration Rate 75 mL/min (>60); Est Glom Filt Rate - Afr Amer 91 mL/min (>60); Estimated Creatinine Clearance 69.71 ml/min; Glucose 90 mg/dL (74-106); Potassium 4.7 mmol/L (3.5-5.1); Sodium Level 137 mmol/L (136-145)
[2018-08-28] MEDS: Ferrous Gluconate 324 MG Tablet PO ×2 (07:55→16:06)
[2018-08-28] MEDS: Ascorbic Acid 500 MG Tablet PO ×2 (07:55→16:05)
[2018-08-28] MEDS: Carvedilol 6.25 MG Tablet PO (07:55)
[2018-08-28] MEDS: Aspirin 81 MG TAB.CHEW PO (07:55)
[2018-08-28] MEDS: Losartan Potassium 25 MG Tablet PO (07:56)
[2018-08-28] MEDS: Furosemide 40 MG/4 ML Vial IV ×2 (07:56→16:06)
[2018-08-28] MEDS: Enoxaparin 40 MG/0.4 ML Syringe SC (07:56)
[2018-08-28] MEDS: Clopidogrel Bisulfate 75 MG Tablet PO (07:56)
[2018-08-28] MEDS: 0.9% NaCl Peripheral Flush Adult/Peds IV ×2 (08:02→16:06)
--- NOTE | 2018-08-28 14:32 | PCM.PN.HOSP ---
Patient Problems: Active and Suspected Problems (Last Updated 08/16/18 @ 09:53 by Justin Zamarripa DO) SOB (shortness of breath) (Acute) Subjective: Breathing ok while on O2, does not feel as SOB as he did yesterday Vitals/I&O's: Vital Signs Temp Pulse Resp BP Pulse Ox 97.6 F L 82 18 119/64 93 08/28/18 13:45 08/28/18 13:45 08/28/18 13:45 08/28/18 13:45 08/28/18 14:12 Oxygen Flow Rate (L/min) 2 Oxygen Delivery Method Room Air Weight: 143 lb 8.335 oz Body Mass Index (BMI) 22.1 Intake and Output for Last 24 Hours 08/26/18 08/27/18 08/28/18 23:59 23:59 23:59 Intake Total 1041.2 / 1041.2 1280 / 1280 Output Total 1400 / 1400 700 / 700 Balance -358.8 / -358.8 580 / 580 General: Alert, Oriented x3, Cooperative, No apparent distress HEENT: Atraumatic, PERRLA, EOMI, Normocephalic Oral: Moist Mucosa Neck: Supple, No JVD Lungs: Normal air movement, No rhonchi, No wheeze, Diminished, Rales Cardiovascular: Regular rate, Regular Rhythm, Normal S1, Normal S2, No murmurs Abdomen: Soft, Non Tender, Non-Distended, No Hepato-splenomegaly Extremities: No edema, Capillary Refill Less than 3 Seconds Skin: No rashes, No breakdown Neurological: Neuro grossly intact, Sensory exam intact to light touch and pain Psych/Mental Status: Normal Affect, Appropriate Microbiology Past 72 Hours 08/27/18 04:55 Mucosa - Nasopharyngeal Influenza Types A,B Direct FA (SHARON) - Final Laboratory Results 08/27/18 04:18: Magnesium 1.7 08/27/18 18:34: Urine Opiates Screen NEGATIVE, Urine Methadone Screen NEGATIVE, Ur Barbiturates Screen NEGATIVE, Ur Phencyclidine Scrn NEGATIVE, Ur Amphetamines Screen POSITIVE H, U Methamphetamin-MDMA NEGATIVE, U Benzodiazepines Scrn NEGATIVE, Urine Cocaine Screen NEGATIVE, U Cannabinoids Screen NEGATIVE, Ur Drug Screen Comment 08/27/18 20:10: Troponin I 0.032 11/28/18 05:18: WBC 5.6, RBC 4.31 L, Hgb 12.4 L, Hct 40.0, MCV 92.8, MCH 28.8, MCHC 31.0 L, RDW 16.1 H, RDW Differential 54.1 H, Plt Count 144 L, MPV 9.7, Immature Gran % (Auto) 0.200, Neut % (Auto) 73.1 H, Lymph % (Auto) 16.2 L, [place] % (Auto) 7.0, Eos % (Auto) 3.0, Baso % (Auto) 0.5, Absolute Neuts (auto) 4.1, Absolute Lymphs (auto) 0.91, Total Counted Not Reportable 08/28/18 05:18: Sodium 137, Potassium 4.7, Chloride 103, Carbon Dioxide 29.0, Anion Gap 5, BUN 28 H, Creatinine 1.07, Estim Creat Clear Calc 69.71, Est GFR (MDRD) Af Amer 91, Est GFR (MDRD) Non-Af 75, BUN/Creatinine Ratio 26.2 H, Glucose 90, Calcium 8.0 L Current Medications Acetaminophen (Tylenol) 650 mg PO Q6H PRN PRN PRN Reason: Mild Pain (scale 0-3)/T>100.7 Last Admin: 08/27/18 22:02 Dose: 650 mg Albuterol/Ipratropium (Duoneb) 3 ml INHALATION Q6HWA.RT [facility] Last Admin: 08/28/18 13:10 Dose: Not Given [facility] C) [facility] Last Admin: 08/28/18 07:55 Dose: 500 mg Aspirin (Aspirin, Baby) 81 mg PO DAILY@0800 [facility] Last Admin: 08/28/18 07:55 Dose: 81 mg Atorvastatin Calcium (Lipitor) 80 mg PO QHS [facility] Last Admin: 08/27/18 21:33 Dose: 80 mg Carvedilol (Coreg) 6.25 mg PO BID [facility] Last Admin: 08/28/18 07:55 Dose: 6.25 mg Clopidogrel Bisulfate (Plavix) 75 mg PO DAILY [facility] Last Admin: 08/28/18 07:56 Dose: 75 mg Enoxaparin Sodium (Lovenox) 40 mg SC DAILY@1000 [facility] Last Admin: 08/28/18 07:56 Dose: 40 mg Ferrous Gluconate (Ferrous Gluconate) 324 mg PO BIDCM [facility] Last Admin: 08/28/18 07:55 Dose: 324 mg Furosemide (Lasix) 40 mg IV BID@1000,1800 [facility] Last Admin: 08/28/18 07:56 Dose: 40 mg Gabapentin (Neurontin) 600 mg PO QHS [facility] Last Admin: 08/27/18 21:34 Dose: 600 mg Isosorbide Mononitrate (Imdur) 30 mg PO DAILY@1900 [facility] Losartan Potassium (Cozaar) 25 mg PO DAILY [facility] Last Admin: 08/28/18 07:56 Dose: 25 mg Magnesium Hydroxide (Milk Of Magnesia) 30 ml PO DAILY PRN PRN PRN Reason: Constipation Nitroglycerin (Nitrostat) 0.4 mg SUBLINGUAL Q5M PRN PRN Reason: CARDIAC/CHEST PAIN Sodium Chloride () 5 - 30 ml IV UD PRN PRN Reason: SALINE FLUSH Last Admin: 08/28/18 08:02 Dose: 10 ml Medical Necessity - Tobacco Use Smoking Status: Current some day smoker Assessment/Plan All Active Problems (Last Updated 08/16/18 @ 09:53 by Justin Zamarripa DO) SOB (shortness of breath) (Acute) Elevated troponin (Resolved) COPD exacerbation (Acute) Acute bronchitis (Resolved) HCAP (healthcare-associated pneumonia) (Resolved) Hypotension (Resolved) MRSA (methicillin resistant Staphylococcus aureus) infection (Resolved) Near syncope (Resolved) 1. Acute on chronic systolic CHF/Acute hypoxic respiratory failure/HLD - He had a cath in november which showed normal coronary arteries on the left but his RCA stent had a 20% re-instent stenosis - His EF was 15-20% - We called the pharmacy that stated he hadnt picked up his meds since March - I will restart him on all of his medications that he should be on given his systolic dysfunction and monitor - No echo repeat as he had a cath less than a year ago - Repeat troponin 0.032 - No chest pain to think he has worsening RCA stenosis since he has not been taking his ASA and plavix, will resume the antiplatelets - C/w his statin - LAsix 40 mg IV BID 2. Iron deficiency anemia - H/H is at baseline at 12.4 - continue with replacement 3. COPD - I dont think he has an acute exacerbation at the moment - Will provide duonebs while here DVT: Lovenox Diet: Cardiac Code Visit Inpatient E&M: 27735 Subs Hosp L2
--- NOTE | 2018-08-28 14:36 | PN_ITS ---
Patient Problems: Active and Suspected Problems (Last Updated 08/16/18 @ 09:53 by Justin Zamarripa DO) SOB (shortness of breath) (Acute) Subjective: Breathing ok while on O2, does not feel as SOB as he did yesterday Vitals/I&O's: Vital Signs Temp Pulse Resp BP Pulse Ox 97.6 F L 82 18 119/64 93 08/28/18 13:45 08/28/18 13:45 08/28/18 13:45 08/28/18 13:45 08/28/18 14:12 Oxygen Flow Rate (L/min) 2 Oxygen Delivery Method Room Air Weight: 143 lb 8.335 oz Body Mass Index (BMI) 22.1 Intake and Output for Last 24 Hours 08/26/18 08/27/18 08/28/18 23:59 23:59 23:59 Intake Total 1041.2 / 1041.2 1280 / 1280 Output Total 1400 / 1400 700 / 700 Balance -358.8 / -358.8 580 / 580 General: Alert, Oriented x3, Cooperative, No apparent distress HEENT: Atraumatic, PERRLA, EOMI, Normocephalic Oral: Moist Mucosa Neck: Supple, No JVD Lungs: Normal air movement, No rhonchi, No wheeze, Diminished, Rales Cardiovascular: Regular rate, Regular Rhythm, Normal S1, Normal S2, No murmurs Abdomen: Soft, Non Tender, Non-Distended, No Hepato-splenomegaly Extremities: No edema, Capillary Refill Less than 3 Seconds Skin: No rashes, No breakdown Neurological: Neuro grossly intact, Sensory exam intact to light touch and pain Psych/Mental Status: Normal Affect, Appropriate Microbiology Past 72 Hours 08/27/18 04:55 Mucosa - Nasopharyngeal Influenza Types A,B Direct FA (SHARON) - Final Laboratory Results 08/27/18 04:18: Magnesium 1.7 08/27/18 18:34: Urine Opiates Screen NEGATIVE, Urine Methadone Screen NEGATIVE, Ur Barbiturates Screen NEGATIVE, Ur Phencyclidine Scrn NEGATIVE, Ur Amphetamines Screen POSITIVE H, U Methamphetamin-MDMA NEGATIVE, U Benzodiazepines Scrn NEGATIVE, Urine Cocaine Screen NEGATIVE, U Cannabinoids Screen NEGATIVE, Ur Drug Screen Comment 08/27/18 20:10: Troponin I 0.032 11/28/18 05:18: WBC 5.6, RBC 4.31 L, Hgb 12.4 L, Hct 40.0, MCV 92.8, MCH 28.8, MCHC 31.0 L, RDW 16.1 H, RDW Differential 54.1 H, Plt Count 144 L, MPV 9.7, Immature Gran % (Auto) 0.200, Neut % (Auto) 73.1 H, Lymph % (Auto) 16.2 L, [place] % (Auto) 7.0, Eos % (Auto) 3.0, Baso % (Auto) 0.5, Absolute Neuts (auto) 4.1, Absolute Lymphs (auto) 0.91, Total Counted Not Reportable 08/28/18 05:18: Sodium 137, Potassium 4.7, Chloride 103, Carbon Dioxide 29.0, Anion Gap 5, BUN 28 H, Creatinine 1.07, Estim Creat Clear Calc 69.71, Est GFR (MDRD) Af Amer 91, Est GFR (MDRD) Non-Af 75, BUN/Creatinine Ratio 26.2 H, Glucose 90, Calcium 8.0 L Current Medications Acetaminophen (Tylenol) 650 mg PO Q6H PRN PRN PRN Reason: Mild Pain (scale 0-3)/T>100.7 Last Admin: 08/27/18 22:02 Dose: 650 mg Albuterol/Ipratropium (Duoneb) 3 ml INHALATION Q6HWA.RT [facility] Last Admin: 08/28/18 13:10 Dose: Not Given [facility] Last Admin: 08/28/18 07:55 Dose: 500 mg Aspirin (Aspirin, Baby) 81 mg PO DAILY@0800 [facility] Last Admin: 08/28/18 07:55 Dose: 81 mg Atorvastatin Calcium (Lipitor) 80 mg PO QHS [facility] Last Admin: 08/27/18 21:33 Dose: 80 mg Carvedilol (Coreg) 6.25 mg PO BID [facility] Last Admin: 08/28/18 07:55 Dose: 6.25 mg Clopidogrel Bisulfate (Plavix) 75 mg PO DAILY [facility] Last Admin: 08/28/18 07:56 Dose: 75 mg Enoxaparin Sodium (Lovenox) 40 mg SC DAILY@1000 [facility] Last Admin: 08/28/18 07:56 Dose: 40 mg Ferrous Gluconate (Ferrous Gluconate) 324 mg PO BIDCM [facility] Last Admin: 08/28/18 07:55 Dose: 324 mg Furosemide (Lasix) 40 mg IV BID@1000,1800 [facility] Last Admin: 08/28/18 07:56 Dose: 40 mg Gabapentin (Neurontin) 600 mg PO QHS [facility] Last Admin: 08/27/18 21:34 Dose: 600 mg Isosorbide Mononitrate (Imdur) 30 mg PO DAILY@1900 [facility] Losartan Potassium (Cozaar) 25 mg PO DAILY [facility] Last Admin: 08/28/18 07:56 Dose: 25 mg Magnesium Hydroxide (Milk Of Magnesia) 30 ml PO DAILY PRN PRN PRN Reason: Constipation Nitroglycerin (Nitrostat) 0.4 mg SUBLINGUAL Q5M PRN PRN Reason: CARDIAC/CHEST PAIN Sodium Chloride () 5 - 30 ml IV UD PRN PRN Reason: SALINE FLUSH Last Admin: 08/28/18 08:02 Dose: 10 ml Medical Necessity - Tobacco Use Smoking Status: Current some day smoker Assessment/Plan All Active Problems (Last Updated 08/16/18 @ 09:53 by Justin Zamarripa DO) SOB (shortness of breath) (Acute) Elevated troponin (Resolved) COPD exacerbation (Acute) Acute bronchitis (Resolved) HCAP (healthcare-associated pneumonia) (Resolved) Hypotension (Resolved) MRSA (methicillin resistant Staphylococcus aureus) infection (Resolved) Near syncope (Resolved) 1. Acute on chronic systolic CHF/Acute hypoxic respiratory failure/HLD - He had a cath in november which showed normal coronary arteries on the left but his RCA stent had a 20% re-instent stenosis - His EF was 15-20% - We called the pharmacy that stated he hadnt picked up his meds since March - I will restart him on all of his medications that he should be on given his systolic dysfunction and monitor - No echo repeat as he had a cath less than a year ago - Repeat troponin 0.032 - No chest pain to think he has worsening RCA stenosis since he has not been taking his ASA and plavix, will resume the antiplatelets - C/w his statin - LAsix 40 mg IV BID 2. Iron deficiency anemia - H/H is at baseline at 12.4 - continue with replacement 3. COPD - I dont think he has an acute exacerbation at the moment - Will provide duonebs while here DVT: Lovenox Diet: Cardiac Code Visit Inpatient E&M: 00146 Subs Hosp L2
--- NOTE | 2018-08-28 16:24 | CASEMGMT ---
GILL BASS NOTE: Pt stating he needs a walker @ home and oxygen. Pt states has no preference of DME company. *Script obtained for walker and faxed to [facility]. Walker has been delivered to room for pt to take home with him on discharge. *Home O2 qualification testing completed. See Documentation. Pt does not qualify for O2 per insurance requirements for it to be covered by insurance. Pt made aware. Pt adamant that he needs the oxygen, stating, I have to wear it all the time and if I don't have it when I go home I'm going to end up just coming back in here to the hospital. Pt states he feels much better when the oxygen is on and if he does not have it on, he feels short of breath. *Call placed to [place] @ [facility] [employer]. *Per Lima, cost of oxygen with insurance coverage for a concentrator and 3 month supply of up to 12 portable tanks is $146.70, as long as pt picks up the tanks @ the office. *[facility] states if pt wants the tanks delivered to his home, then the cost for delivery is $15/tank. GILL BASS made pt aware of all of the above. Pt states he would be agreeable to paying for the oxygen out-of pocket. Dr Willson made aware that pt not qualifying for oxygen per insurance requirements for them to pay for it, but that pt is requesting oxygen and that he is willing to pay [id number]. Script obtained from Dr Willson and given to pt. Pt stated he will go to [facility] [employer]'s office and pick it up. Provided pt with [employer] [facility] [employer]'s address and phone number. *Call placed to Tameka CORTEZ's office. Informed them pt is not qualifying for oxygen this hospitalization per insurance requirements. They stated they can test pt when he comes in for his next appt for oxygen and see if he may qualify at that time. Pt advised to make follow-up appt with Tameka Oquendo after he is discharged and discuss with her his request for oxygen and to see if they can do oxygen requirement testing at that time to see if he may qualify per insurance requirements for coverage. Pt voiced understanding and voices appreciation of GILL BASS getting script for oxygen. Pt denies needs or other concerns at this time. Lyle SCHMITT RN, CM
--- NOTE | 2018-08-28 16:35 | DCINST_ITS ---
- Discharge Diagnoses Current Active Problems: Current Active and Chronic Problems (Last Updated 08/16/18 @ 09:53 by Justin Zamarripa DO) SOB (shortness of breath) (Acute) You will use the following diet at home:: Cardiac, Fluid restricted (specify 2000 mls, 1500 mls) - 1800 Your food should be the consistency of: Regular Your liquids should be the consistency of: Regular/Thin Discharge Activity: No Restrictions Call your doctor if you observe: Shortness of breath, Dizziness, Swelling in the ankles, Chest pain Allergies/Adverse Reactions: Allergies No Known Allergies Allergy (Verified 08/27/18 04:20) Medications to take at Discharge Nitroglycerin [Nitrostat] 0.4 mg SUBLINGUAL Q5M PRN #1 bottle 12/14/17 aspirin 81 mg chewable tablet 81 mg PO DAILY@0800 #30 tab.chew 01/11/18 atorvastatin 80 mg tablet 80 mg PO QHS #30 tab 01/11/18 carvedilol 6.25 mg tablet 6.25 mg PO BID #60 tab 01/11/18 clopidogrel 75 mg tablet 75 mg PO DAILY #30 tab 01/11/18 furosemide 40 mg tablet 40 mg PO DAILY #30 tab 01/11/18 isosorbide mononitrate ER 30 mg tablet,extended release 24 hr 30 mg PO DAILY #30 tab 01/11/18 losartan 25 mg tablet 25 mg PO DAILY #30 tab 01/11/18 potassium chloride ER 20 mEq tablet,extended release(part/cryst) 20 meq PO DAILY #30 tab 01/11/18 ferrous gluconate 324 mg (37.5 mg iron) tablet 325 mg PO BIDCM #60 tab 01/15/18 Acetaminophen [Tylenol Tablet] 650 mg PO Q6H PRN PRN tablet 08/05/18 Albuterol Sulfate [Ventolin Hfa] 18 gm IH [id number] PRN #1 hfa.[id number] 08/05/18 Ascorbic Acid [Vitamin C] 500 mg PO BIDCM 08/27/18 Gabapentin [Neurontin] 600 mg PO QHS 08/27/18 Primary Care Physician: Berna Oquendo NP-C [Primary Care Provider] - Please follow up with your Primary Care Physician in: in 3-5 days Test Results: Test results from this visit will be discussed in further detail at your follow- up appointment, if applicable. Please Follow Up With: Bradford Mak MD When: In 4-6 weeks
--- NOTE | 2018-08-28 16:35 | PCM.DC.SUM ---
Discharge Date and Diagnosis - Problem List Patient Problems: Active and Suspected Problems (Last Updated 08/16/18 @ 09:53 by Justin Zamarripa DO) SOB (shortness of breath) (Acute) Date of Admission: 08/27/18 Date of Discharge: 08/28/18 - Primary Discharge Diagnosis Active and Suspected Problems (Last Updated 08/16/18 @ 09:53 by Justin Zamarripa DO) SOB (shortness of breath) (Acute) - Secondary Discharge Diagnosis Chronic Problems (Last Updated 08/16/18 @ 09:53 by Justin Zamarripa DO) COPD with acute exacerbation (Chronic) Non-ischemic cardiomyopathy (Chronic) ICD (implantable cardioverter-defibrillator) in place (Chronic) History of coronary artery stent placement (Chronic) PCI-RCA and CX Atherosclerosis of coronary artery of [place] heart without angina pectoris (Chronic) LEFT HEART ASSESSMENT Left Ventricular Ejection Fraction: by LV Gram 10-15 % Global Hypokinesis - Severe Depressed Left Ventricular systolic function Normal Left Ventricular End Diastolic Pressure LEFT MAIN: Non-obstructive LEFT ANTERIOR DECENDING ARTERY: Previously placed stent is patent DIAGONAL 1: Ostial - Mild luminal irregularities less than 30% DIAGONAL 2: Proximal - Non-obstructive CIRCUMFLEX ARTERY: MID CIRC: Previously placed stent is patent RIGHT CORONARY ARTERY: MID RCA: Previously placed stent has instent 20 % restenosis with a new at distal edge of stent Iron deficiency anemia (Chronic) COPD (chronic obstructive pulmonary disease) (Chronic) Tobacco abuse (Chronic) Medical non-compliance (Chronic) Ischemic cardiomyopathy (Chronic) Hospital Course and Treatment Imaging Results: CXR: IMPRESSION: Chronic interstitial lung changes without superimposed acute alveolar disease. Consults: None Operations: None Procedures: None Summary of Care Provided: HPI: The patient is a 57 year old M with a medical history as below who presents with a few days of worsening SOB. He states that he has a very bad heart and that he takes his medications regularly. He was recently in the hospital with a COPD exacerbation and he feels that he has never recovered from that. He was given a script for prednisone on discharge which he never filled. He has also been coughing which has been non-productive. He presented to the ER on BiPAP and was able to be weaned when given ativan. He was found to have an indeterminate troponin and his EKG had T wave inversion in V5 and V6 which weren't present on 08/20, but they were present on 08/18. His troponin elevation was at his baseline and lower than when he had his cath in november. He was given a dose IV lasix in the ER. He denies fevers, chills, lightheadedness or dizziness. Hospital Course: 1. Acute on chronic systolic CHF/Acute hypoxic respiratory failure/HLD - He presented with significant SOB after thanks. He states that he ate well. He was given more aggressive diuresis with IV lasix BID and he improved significantly. He was still feeling nervous about going home without oxygen, he had an ambulatory pulse ox, however he did not meet the requirements for home O2 so he decided to pay for it out of pocket. There is significant concern about medication compliance since his pharmacy states that he has not picked up his medication since March. He states that he still has many bottles of medications and that he taking them appropriately. Will discharge today on his home medications with his home oxygen. He is to follow-up with his PCP and his project management consultant. No further cardiac imaging was obtained since he had an echo and a cardiac cath in november of this year. 2. His other medical diagnoses were evaluated and his home prescripetions were continued where appropriate Patient Problems: Active and Suspected Problems (Last Updated 08/16/18 @ 09:53 by Justin Zamarripa DO) SOB (shortness of breath) (Acute) - Physical Exam Vital Signs Temp Pulse Resp BP Pulse Ox 97.6 F L 82 18 119/64 93 08/28/18 13:45 08/28/18 13:45 08/28/18 13:45 08/28/18 13:45 08/28/18 14:12 Oxygen Flow Rate (L/min) 2 Oxygen Delivery Method Room Air Weight: 143 lb 8.335 oz Body Mass Index (BMI) 22.1 Intake and Output for Last 24 Hours 08/26/18 08/27/18 08/28/18 23:59 23:59 23:59 Intake Total 1041.2 / 1041.2 1280 / 1280 Output Total 1400 / 1400 700 / 700 Balance -358.8 / -358.8 580 / 580 Microbiology Past 72 Hours 08/27/18 04:55 Influenza Types A,B Direct FA (SHARON) - Final Mucosa - Nasopharyngeal Laboratory Tests Past 24 Hrs 08/27/18 08/27/18 08/28/18 18:34 20:10 05:18 WBC 5.6 RBC 4.31 L Hgb 12.4 L Hct 40.0 MCV 92.8 MCH 28.8 MCHC 31.0 L RDW 16.1 H RDW Differential 54.1 H Plt Count 144 L MPV 9.7 Immature Gran % (Auto) 0.200 Neut % (Auto) 73.1 H Lymph % (Auto) 16.2 L [place] % (Auto) 7.0 Eos % (Auto) 3.0 Baso % (Auto) 0.5 Absolute Neuts (auto) 4.1 Absolute Lymphs (auto) 0.91 Total Counted Not Reportable Sodium Potassium Chloride Carbon Dioxide Anion Gap BUN Creatinine Estim Creat Clear Calc Est GFR (MDRD) Af Amer Est GFR (MDRD) Non-Af BUN/Creatinine Ratio Glucose Calcium Troponin I 0.032 Urine Opiates Screen NEGATIVE Urine Methadone Screen NEGATIVE Ur Barbiturates Screen NEGATIVE Ur Phencyclidine Scrn NEGATIVE Ur Amphetamines Screen POSITIVE H U Methamphetamin-MDMA NEGATIVE U Benzodiazepines Scrn NEGATIVE Urine Cocaine Screen NEGATIVE U Cannabinoids Screen NEGATIVE Ur Drug Screen Comment 08/28/18 05:18 WBC RBC Hgb Hct MCV MCH MCHC RDW RDW Differential Plt Count MPV Immature Gran % (Auto) Neut % (Auto) Lymph % (Auto) [place] % (Auto) Eos % (Auto) Baso % (Auto) Absolute Neuts (auto) Absolute Lymphs (auto) Total Counted Sodium 137 Potassium 4.7 Chloride 103 Carbon Dioxide 29.0 Anion Gap 5 BUN 28 H Creatinine 1.07 Estim Creat Clear Calc 69.71 Est GFR (MDRD) Af Amer 91 Est GFR (MDRD) Non-Af 75 BUN/Creatinine Ratio 26.2 H Glucose 90 Calcium 8.0 L Troponin I Urine Opiates Screen Urine Methadone Screen Ur Barbiturates Screen Ur Phencyclidine Scrn Ur Amphetamines Screen U Methamphetamin-MDMA U Benzodiazepines Scrn Urine Cocaine Screen U Cannabinoids Screen Ur Drug Screen Comment Discharge Activity: No Restrictions Call your doctor if you observe: Shortness of breath, Dizziness, Swelling in the ankles, Chest pain Home Medications: Medications to take at Discharge Nitroglycerin [Nitrostat] 0.4 mg SUBLINGUAL Q5M PRN #1 bottle 12/14/17 aspirin 81 mg chewable tablet 81 mg PO DAILY@0800 #30 tab.chew 01/11/18 atorvastatin 80 mg tablet 80 mg PO QHS #30 tab 01/11/18 carvedilol 6.25 mg tablet 6.25 mg PO BID #60 tab 01/11/18 clopidogrel 75 mg tablet 75 mg PO DAILY #30 tab 01/11/18 furosemide 40 mg tablet 40 mg PO DAILY #30 tab 01/11/18 isosorbide mononitrate ER 30 mg tablet,extended release 24 hr 30 mg PO DAILY #30 tab 01/11/18 losartan 25 mg tablet 25 mg PO DAILY #30 tab 01/11/18 potassium chloride ER 20 mEq tablet,extended release(part/cryst) 20 meq PO DAILY #30 tab 01/11/18 ferrous gluconate 324 mg (37.5 mg iron) tablet 325 mg PO BIDCM #60 tab 01/15/18 Acetaminophen [Tylenol Tablet] 650 mg PO Q6H PRN PRN tablet 08/05/18 Albuterol Sulfate [Ventolin Hfa] 18 gm IH [id number] PRN #1 hfa.aer.ad 08/05/18 Ascorbic Acid [Vitamin C] 500 mg PO BIDCM 08/27/18 Gabapentin [Neurontin] 600 mg PO QHS 08/27/18 Primary Care Physician: Berna Oquendo NP-C [Primary Care Provider] - Please follow up with your Primary Care Physician in: in 3-5 days Please Follow Up With: Bradford Mak MD When: In 4-6 weeks Disposition: Home Minutes spent on discharge:: 35 Patient Condition:: Good Medical Necessity - Tobacco Use Smoking Status: Current some day smoker Meaningful Use Info Meaningful Use Diagnoses (Choose all that apply): None applicable Code Visit Inpatient E&M: 77308 Disch Hosp
--- NOTE | 2018-08-29 17:42 | CASEMGMT ---
RN CM Discharge Follow-up Phone Call: AMY: Odilia Strata: 4 Call Date: 08/29/18 Discharge Date: 08/28/18 Time of Call: Duration: ? Admitting Diagnosis: A/C sys CHF This RN CM was unable to contact pt via telephone for discharge follow-up. Demographics note that pt does not have a phone. Basil Canchola RN
--- OUTSIDE RECORDS SUMMARY | 2018-10-08 19:11 | XMS RPT_ITS ---
:1960 Author Organization OHIP Support Name Relationship Address Phone D Unavailable Unavailable Unavailable ANGEL VASQUEZ (POA) Unavailable [address] + [place] [address] D Unavailable Unavailable Unavailable ANGEL VASQUEZ (POA) Unavailable [address] + [place] [address] D Unavailable Unavailable Unavailable ANGEL VASQUEZ (POA) Unavailable [address] + [place] [address] D Unavailable Unavailable Unavailable ANGEL VASQUEZ (POA) Unavailable [address] + [place] [address] Kaitlyn Oquendo Unavailable Unavailable + Karel Jung Unavailable Unavailable + Angel Jung Unavailable Unavailable + D Unavailable Unavailable Unavailable ANGEL VASQUEZ (POA) Unavailable [address] + [place] [address] D Unavailable Unavailable Unavailable ANGEL VASQUEZ (POA) Unavailable [address] + [place] [address] D Unavailable Unavailable Unavailable ANGEL VASQUEZ (POA) Unavailable [address] + [place] [address] D Unavailable Unavailable Unavailable ANGEL VASQUEZ (POA) Unavailable [address] + [place] [address] D Unavailable Unavailable Unavailable ANGEL VASQUEZ (POA) Unavailable [address] + [place] [address] D Unavailable Unavailable Unavailable ANGEL VASQUEZ (POA) Unavailable [address] + [place] [address] D Unavailable Unavailable Unavailable VAN DYNE, ANGEL (POA) Unavailable [address] + [place] [address] D Unavailable Unavailable Unavailable VAN DYNE, ANGEL (POA) Unavailable [address] + [place] [address] D Unavailable Unavailable Unavailable VAN DYNE, ANGEL (POA) Unavailable [address] + [place] [address] D Unavailable Unavailable Unavailable VAN DYNE, ANGEL (POA) Unavailable [address] + [place] [address] D Unavailable Unavailable Unavailable VAN DYNE, ANGEL (POA) Unavailable [address] + [place] [address] D Unavailable Unavailable Unavailable VAN DYNE, ANGEL (POA) Unavailable [address] + [place] [address] D Unavailable Unavailable Unavailable VAN DYNE, ANGEL (POA) Unavailable [address] + [place] [address] D Unavailable Unavailable Unavailable VANDYNE, ANGEL (POA) Unavailable [address] + [place] [address] D Unavailable Unavailable Unavailable VAN DYNE, ANGEL (POA) Unavailable [address] + [place] [address] D Unavailable Unavailable Unavailable VAN DYNE, ANGEL (POA) Unavailable [address] + [place] [address] D Unavailable Unavailable Unavailable VAN DYNE, ANGEL (POA) Unavailable [address] + [place] [address] D Unavailable Unavailable Unavailable VAN DYNE, ANGEL (POA) Unavailable [address] + [place] [address] D Unavailable Unavailable Unavailable VAN DYNE, ANGEL (POA) Unavailable [address] + [place] [address] D Unavailable Unavailable Unavailable VAN DYNE, ANGEL (POA) Unavailable [address] + [place] [address] D Unavailable Unavailable Unavailable VAN DYNE, ANGEL (POA) Unavailable [address] + [place] [address] D Unavailable Unavailable Unavailable D Unavailable Unavailable Unavailable VAN DYNE, ANGEL (POA) Unavailable [address] + [place] [address] D Unavailable Unavailable Unavailable JERE, DON Unavailable [address] + [place] [address] VAN DYNE, ANGEL (POA) Unavailable [address] + [place] [address] D Unavailable Unavailable Unavailable JERE, DON Unavailable [address] + [place] [address] VAN DYNE, ANGEL (POA) Unavailable [address] + [place] [address] D Unavailable Unavailable Unavailable VAN DYNE, ANGEL (POA) Unavailable [address] + [place] [address] D Unavailable Unavailable Unavailable JERE, DON Unavailable [address] + [place] [address] VAN DYNE, ANGEL (POA) Unavailable [address] + [place] [address] D Unavailable Unavailable Unavailable JERE, DON Unavailable [address] + [place] [address] VAN DYNE, ANGEL (POA) Unavailable [address] + [place] [address] D Unavailable Unavailable Unavailable JERE, DON Unavailable [address] + [place] [address] VAN DYNE, ANGEL (POA) Unavailable [address] + [place] [address] D Unavailable Unavailable Unavailable JERE, DON Unavailable [address] + [place] [address] VAN DYNE, ANGEL (POA) Unavailable [address] + [place] [address] D Unavailable Unavailable Unavailable JERE, DON Unavailable [address] + [place] [address] VAN DYNE, ANGEL (POA) Unavailable [address] + [place] [address] D Unavailable Unavailable Unavailable VAN DYNE, ANGEL (POA) Unavailable [address] + [place] [address] D Unavailable Unavailable Unavailable JERE, DON Unavailable [address] + [place] [address] VAN DYNE, ANGEL (POA) Unavailable [address] + [place] [address] D Unavailable Unavailable Unavailable JERE, DON Unavailable [address] + [place] [address] VAN DYNE, ANGEL (POA) Unavailable [address] + [place] [address] D Unavailable Unavailable Unavailable JERE, DON Unavailable [address] + [place] [address] VAN DYNE, ANGEL (POA) Unavailable [address] + [place] [address] D Unavailable Unavailable Unavailable JERE, DON Unavailable [address] + [place] [address] VAN DYNE, ANGEL (POA) Unavailable [address] + [place] [address] D Unavailable Unavailable Unavailable VAN DYNE, ANGEL (POA) Unavailable [address] + [place] [address] D Unavailable Unavailable Unavailable JERE, DON Unavailable [address] + [place] [address] VAN DYNE, ANGEL (POA) Unavailable [address] + [place] [address] D Unavailable Unavailable Unavailable D Unavailable Unavailable Unavailable VANDYNE, ANGEL (POA) Unavailable [address] + [place] [address] D Unavailable Unavailable Unavailable JERE, DON Unavailable [address] + [place] [address] VAN DYNE, ANGEL (POA) Unavailable [address] + [place] [address] D Unavailable Unavailable Unavailable JERE, DON Unavailable [address] + [place] [address] VAN DYNE, ANGEL (POA) Unavailable [address] + [place] [address] D Unavailable Unavailable Unavailable JERE, DON Unavailable [address] + [place] [address] VAN DYNE, ANGEL (POA) Unavailable [address] + [place] [address] D Unavailable Unavailable Unavailable JERE, DON Unavailable [address] + [place] [address] VAN DYNE, ANGEL (POA) Unavailable [address] + [place] [address] D Unavailable Unavailable Unavailable JERE, DON Unavailable [address] + [place] [address] VAN DYNE, ANGEL (POA) Unavailable [address] + [place] [address] D Unavailable Unavailable Unavailable JERE, DON Unavailable [address] + [place] [address] VAN DYNE, ANGEL (POA) Unavailable [address] + [place] [address] D Unavailable Unavailable Unavailable JERE, DON Unavailable [address] + [place] [address] VAN DYNE, ANGEL (POA) Unavailable [address] + [place] [address] D Unavailable Unavailable Unavailable JERE, DON Unavailable [address] + [place] [address] VAN DYNE, ANGEL (POA) Unavailable [address] + [place] [address] D Unavailable Unavailable Unavailable JERE, DON Unavailable [address] + [place] [address] VAN DYNE, ANGEL (POA) Unavailable [address] + [place] [address] D Unavailable Unavailable Unavailable JERE, DON Unavailable [address] + [place] [address] VAN DYNE, ANGEL (POA) Unavailable [address] + [place] [address] D Unavailable Unavailable Unavailable NILO OQUENDO Unavailable [address] + [place] [address] ANGEL JUNG (POA) Unavailable [address] + [place] [address] Care Team Providers Name Role Phone PROVIDER, UNKNOWN Referring Unavailable No, PCP Primary Care Unavailable Kingsley Steel . Attending Unavailable Primay Care Physicia, No Primary Care Unavailable Lewis Molina Attending Unavailable Primay Care Physicia, No Primary Care Unavailable Henry, Lionel Admitting Unavailable Fco Ahmadi D.O. Consulting Unavailable Sementi, Ada Attending Unavailable Bradford Tirado Consulting Unavailable Morgan Cerda Consulting Unavailable Henry, Lionel Attending Unavailable Primay Care Physicia, No Primary Care Unavailable Henry, Lionel Admitting Unavailable Bradford Tirado Attending Unavailable Primay Care Physicia, No Primary Care Unavailable Fco Ahmadi D.O. Consulting Unavailable Bradford Tirado Consulting Unavailable Sementi, Ada Consulting Unavailable Henry, Lionel Admitting Unavailable Fco Ahmadi D.O. Attending Unavailable Primay Care Physicia, No Primary Care Unavailable Fco Ahmadi D.O. Consulting Unavailable Bradford Tirado Consulting Unavailable Sementi, Ada Consulting Unavailable Henry, Lionel Admitting Unavailable Fco Galdino D.O. Attending Unavailable Primay Care Physicia, No Primary Care Unavailable Fco Ahmadi D.O. Consulting Unavailable Bradford Tirado Consulting Unavailable Sementi, Ada Consulting Unavailable Henry, Lionel Admitting Unavailable Bradford Tirado Attending Unavailable Primay Care Physicia, No Primary Care Unavailable Fco Ahmadi D.O. Consulting Unavailable Bradford Tirado Consulting Unavailable Sementi, Ada Consulting Unavailable Henry, Lionel Admitting Unavailable Sementi, Ada Attending Unavailable Primay Care Physicia, No Primary Care Unavailable Fco Ahmadi D.O. Consulting Unavailable Bradford Tirado Consulting Unavailable Sementi, Ada Consulting Unavailable Henry, Lionel Admitting Unavailable Fco Ahmadi D.O. Attending Unavailable Primay Care Physicia, No Primary Care Unavailable Fco Ahmadi D.O. Consulting Unavailable Bradford Tirado Consulting Unavailable Sementi, Ada Consulting Unavailable Henry, Lionel Admitting Unavailable Bradford Tirado Attending Unavailable Primay Care Physicia, No Primary Care Unavailable Fco Brown, D.O. Consulting Unavailable Bradford Tirado Consulting Unavailable Sementi, Ada Consulting Unavailable Henry, Lionel Admitting Unavailable Fco Ahmadi D.O. Attending Unavailable Primay Care Physicia, No Primary Care Unavailable Fco Ahmadi D.O. Consulting Unavailable Bradford Tirado Consulting Unavailable Sementi, Ada Consulting Unavailable Henry, Lionel Admitting Unavailable Sementi, Ada Attending Unavailable Primay Care Physicia, No Primary Care Unavailable Fco Ahmadi D.O. Consulting Unavailable Brandon Tiradoel Consulting Unavailable Sementi, Ada Consulting Unavailable Primay Care Physicia, No Primary Care Unavailable White, Vaishali Admitting Unavailable Ashelfah, Ghasem Attending Unavailable White, Vaishali Admitting Unavailable White, Vaishali Attending Unavailable Primay Care Physicia, No Primary Care Unavailable White, Vaishali Consulting Unavailable Henry, Lionel Admitting Unavailable Sementi, Ada Attending Unavailable Primay Care Physicia, No Primary Care Unavailable Fco Ahmadi D.O. Consulting Unavailable Bradford Tirado Consulting Unavailable Morgan Cerda Consulting Unavailable Sementi, Ada Consulting Unavailable White, Vaishali Admitting Unavailable Ashelfah, Ghasem Attending Unavailable Primay Care Physicia, No Primary Care Unavailable Ashelfah, Ghasem Consulting Unavailable Bradford Tirado Attending Unavailable Primay Care Physicia, No Referring Unavailable Primay Care Physicia, No Primary Care Unavailable Bradford Tirado Attending Unavailable Bradford Tirado Referring Unavailable Primay Care Physicia, No Primary Care Unavailable Bradford Tirado Attending Unavailable Bradford Tirado Referring Unavailable Primay Care Physicia, No Primary Care Unavailable Анна Vee Attending Unavailable Primay Care Physicia, No Referring Unavailable Bradford Tirado Attending Unavailable Bradford Tirado Referring Unavailable Primay Care Physicia, No Primary Care Unavailable Damien Duong Attending Unavailable Bradford Tirado Referring Unavailable Primay Care Physicia, No Primary Care Unavailable Bradford Tirado Consulting Unavailable Bradford Tirado Attending Unavailable Bradford Tirado Referring Unavailable Primay Care Physicia, No Primary Care Unavailable Bradford Tirado Consulting Unavailable [place] Attending Unavailable Berna Oquendo NEWSPAPER COLUMNIST-C Primary Care Unavailable Bradford Tirado Attending Unavailable Primay Care Physicia, No Referring Unavailable Martin Covarrubias Attending Unavailable Bradford Tirado Attending Unavailable Semenmahi, Ada Referring Unavailable Bradford Tirado Attending Unavailable Berna Oquendo NEWSPAPER COLUMNIST-C Referring Unavailable Jere, Berna NEWSPAPER COLUMNIST-C Primary Care Unavailable Bradford Tirado Attending Unavailable Анна Vee Attending Unavailable Jere, Berna NEWSPAPER COLUMNIST-C Referring Unavailable Jere, Berna NEWSPAPER COLUMNIST-C Primary Care Unavailable Jere, Berna NEWSPAPER COLUMNIST-C Primary Care Unavailable Bradford Kidd Attending Unavailable Primay Care Physicia, No Referring Unavailable Jere, Berna NEWSPAPER COLUMNIST-C Primary Care Unavailable Mehdi Bello Attending Unavailable Jere, Berna NEWSPAPER COLUMNIST-C Primary Care Unavailable Mehdi Bello Attending Unavailable Jere, Berna NEWSPAPER COLUMNIST-C Primary Care Unavailable Anthony Boswell Attending Unavailable Jere, Berna NEWSPAPER COLUMNIST-C Primary Care Unavailable Agyepong, Marcus Admitting Unavailable Julián Armenta Attending Unavailable Agyepong, Marcus Admitting Unavailable AgyepongMarcus Attending Unavailable Jere, Berna NEWSPAPER COLUMNIST-C Primary Care Unavailable Agyepong, Marcus Consulting Unavailable Agyepong, Marcus Admitting Unavailable Paintsil, Woodbury Attending Unavailable Jere, Berna NEWSPAPER COLUMNIST-C Primary Care Unavailable Paintsil, [place] Consulting Unavailable Agyedevong, Marcus Admitting Unavailable Julián Armenta Attending Unavailable Jere, Berna NEWSPAPER COLUMNIST-C Primary Care Unavailable Julián Armenta Consulting Unavailable Jere, Berna NEWSPAPER COLUMNIST-C Primary Care Unavailable Agyepong, Marcus Admitting Unavailable Justin Zamarripa Attending Unavailable Agyepong, Marcus Admitting Unavailable AgyepongMarcus Attending Unavailable Jere, Berna NEWSPAPER COLUMNIST-C Primary Care Unavailable Agyepong, Marcus Consulting Unavailable Agyepong, Marcus Admitting Unavailable Justin Zamarripa Attending Unavailable Jere, Berna NEWSPAPER COLUMNIST-C Primary Care Unavailable Justin Zamarripa Consulting Unavailable Jere, Berna NEWSPAPER COLUMNIST-C Primary Care Unavailable Lewis Molina Attending Unavailable Martin Covarrubias Attending Unavailable Agyepong, Marcus Referring Unavailable Jere, Berna NEWSPAPER COLUMNIST-C Primary Care Unavailable Bradford Moreau Attending Unavailable Jere, Berna NEWSPAPER COLUMNIST-C Primary Care Unavailable Dell Willson Admitting Unavailable Dell Willson Attending Unavailable Dell Willson Admitting Unavailable Dell Willson Attending Unavailable Jere, Berna NEWSPAPER COLUMNIST-C Primary Care Unavailable Dell Willson Consulting Unavailable Dell Willson Admitting Unavailable Dell Willson Attending Unavailable Jere, Berna NEWSPAPER COLUMNIST-C Primary Care Unavailable Kotsonis, Dell F Consulting Unavailable Jere, Berna NEWSPAPER COLUMNIST-C Primary Care Unavailable DERICK DILLARD Attending Unavailable Berna Oquendo NEWSPAPER COLUMNIST-C Primary Care Unavailable Kathi, Julián Admitting Unavailable Terkaren, Julián Attending Unavailable Terkaren, Julián Admitting Unavailable JEREMIE Aguilar Attending Unavailable Jere, Berna NEWSPAPER COLUMNIST-C Primary Care Unavailable Terkaren, Julián Consulting Unavailable Kathi, Julián Admitting Unavailable Aline Carolina NP-C Attending Unavailable Jere, Berna NEWSPAPER COLUMNIST-C Primary Care Unavailable Terkaren, Julián Consulting Unavailable Bradford Tirado Attending Unavailable Berna Oquendo NEWSPAPER COLUMNIST-C Referring Unavailable PROBLEMS PROBLEMS DATE TYPE CONDITION / CODE ATTENDING STATUS SOURCE Admitting Concussion w loss of [facility], [facility] Diagnosis consciousness of unsp [place] . System duration, init / Repository S06.0X9A(ICD-10) Admitting Heart failure, [facility] Diagnosis unspecified / [facility] . System I50.9(ICD-10) Repository Admitting Chronic obstructive [facility], [facility] Diagnosis pulmonary disease, [facility] . System unspecified / Repository J44.9(ICD-10) Admitting Presence of cardiac [facility], [facility] Diagnosis and vascular implant [facility] . System and graft, unsp / Repository Z95.9(ICD-10) Admitting Family hx of ischem [facility], [facility] Diagnosis heart dis and oth dis [facility] . System of the circ sys / Repository Z82.49(ICD-10) Admitting Nicotine dependence, [facility], [facility] Diagnosis cigarettes, [facility] . System uncomplicated / Repository F17.210(ICD-10) Admitting Prsnl hx of TIA (TIA), [facility], [facility] Diagnosis and cereb infrc w/o [place] . System resid deficits / Repository Z86.73(ICD-10) Admitting Dorsalgia, unspecified [facility], [facility] Diagnosis / M54.9(ICD-10) [facility] . System Repository Unknown I50.23 - Acute on Paultsannalises [facility] chronic systolic [facility] (congestive[facility] heart Hospital failure / Repository I50.23(ICD-10) Unknown R94.31 - Abnormal MarciMartin cleaning [facility] electrocardiogram Community [ECG] [EKG] / Hospital R94.31(ICD-10) Repository Unknown R07.89 - Other chest Bello, Mehdi [facility] pain / R07.89(ICD-10) [facility] Repository Unknown I25.10 - Bradford Tirado [facility] Atherosclerotic heart [facility] disease [facility] coronary artery Repository without angina pectoris / I25.10(ICD-10) Unknown I25.5 - Ischemic Bradford Tirado [facility] cardiomyopathy / Community I25.5(ICD-10) Hospital Repository Unknown I95.9 - Hypotension, Bradford Tirado [facility] unspecified / Community I95.9(ICD-10) Hospital Repository Unknown R55 - Syncope and Ashelfah, Active [facility] collapse / R55(ICD-10) [facility] Repository Unknown I47.2 - Ventricular Bradford Tirado [facility] tachycardia / Community I47.2(ICD-10) Hospital Repository Unknown J96.00 - Acute Sementi, [facility] respiratory failure, [facility] unspecified whether Hospital with hypoxia or Repository hypercapnia / J96.00(ICD-10) Unknown M25.50 - Pain in Sementi, [facility] unspecified joint / [facility] M25.50(ICD-10) Hospital Repository Unknown R06.00 - Dyspnea, Molina, [facility] unspecified / [facility] R06.00(ICD-10) Hospital Repository PROCEDURES PROCEDURES No Procedure Records FoundRESULTS RESULTS 12 LEAD ELECTROCARDIOGRAM Observed: 09/09/2018 Status: F Source: [place] 1:51 PM [facility] REPOSITORY [facility] Cardiovascular Services [address] [place] [address] 12 Lead EKG 09/07/18 0528 MR#: [id number] Acct: [id number] Name: ANTHONY VASQUEZ Rep #: [id number] : 1960 57 From: Martin Covarrubias MD Attending Dr: Julián Armenta DO Status: DIS IN Ordering Dr: Gina Grove MD Date: 09/07/18 Location: [facility] Sex: M C Admitted: 09/07/18 Test Reason : SOB Blood Pressure : / mmHG Vent. Rate : 100 BPM Atrial Rate : 100 BPM P-R Int : 200 ms QRS Dur : 100 ms QT Int : 386 ms P-R-T Axes : 085 -64 110 degrees QTc Int : 497 ms Normal sinus rhythm Possible Left atrial enlargement Left axis deviation Septal infarct , age undetermined ST AND T wave abnormality, consider lateral ischemia Abnormal ECG Confirmed by MARTIN COVARRUBIAS MD ([id number]), video effects editor HEIDE EDMONDS ([id number]) on 09/09/2018 1:50:57 PM Referred By: MARIFER Confirmed By:MARTIN COVARRUBIAS MD 09/09/18 1351 Date Martin Covarrubias MD CC: NEWSPAPER COLUMNIST-C Berna Oquendo; Gina Grove MD; Julián Armenta DO Signed DISCHARGE SUMMARY Observed: 09/08/2018 Status: F Source: [place] 6:22 PM [facility] Medical Records Department [address] [place] [id number] Discharge Summary 09/08/18 1031 MR#: [id number] Acct: [id number] Name: ANTHONY VASQUEZ Rep #: [id number] : 1960 57 From: Aline CHAO PCP: JEREMIE Amanda Status: DIS IN Y [id number] ADDENDUM by Julián Armenta DO on 09/08/18 at 1822 Code Visit Patient was seen and examined independently of Aline Carolina today, he is currently on room air and has no complaints of any shortness of breath. On 09/08/18, patient was seen and examined: Physical exam: On examination he appeared in good health and spirits. Vital signs as documented. Skin warm and dry and without overt rashes. Neck without JVD. Lungs-breath sounds are distant bilaterally, no expiratory wheezes rales or rhonchi are noted. Heart exam notable for regular rhythm, normal sounds and absence of murmurs, rubs or gallops. Abdomen unremarkable and without evidence of organomegaly, masses, or abdominal aortic enlargement. Extremities nonedematous. Patient was felt to be stable for discharge on 09/08/18. I have reviewed Aline Ge's discharge summary including her assessments and medical plan of care and endorse it. Inpatient E AND M: [id number] Disch Hosp 09/08/18 1822 <Electronically signed by Julián Armenta DO> Date Julián Armenta DO cc: JEREMIE Oquendo; NEWSPAPER COLUMNISTKassidyC Aline Carolina; Julián Armenta DO * Signed Discharge Date and Diagnosis Date of Admission: 09/07/18 Date of Discharge: 09/08/18 - Primary Discharge Diagnosis 1. Acute hypoxic respiratory insufficiency secondary to acute on chronic systolic CHF and probable gram-negative HCAP 2. Acute on chronic systolic CHF/ischemic cardiomyopathy 3. Right-sided probable gram-negative HCAP 4. Chronic COPD/pulmonary fibrosis 5. CAD status post PCI, chronically abnormal troponin 6. Hypertension 7. Iron deficiency anemia 8. Tobacco dependence - Secondary Discharge Diagnosis Chronic Problems (Last Updated 08/16/18 @ 09:53 by Justin Zamarripa DO) Elevated troponin (Chronic) ICD (implantable cardioverter-defibrillator) in place (Chronic) History of coronary artery stent placement (Chronic) PCI-RCA and CX Atherosclerosis of coronary artery of [place] heart without angina pectoris (Chronic) LEFT HEART ASSESSMENT Left Ventricular Ejection Fraction: by LV Gram 10-15 % Global Hypokinesis - Severe Depressed Left Ventricular systolic function Normal Left Ventricular End Diastolic Pressure LEFT MAIN: Non-obstructive LEFT ANTERIOR DECENDING ARTERY: Previously placed stent is patent DIAGONAL 1: Ostial - Mild luminal irregularities less than 30% DIAGONAL 2: Proximal - Non-obstructive CIRCUMFLEX ARTERY: MID CIRC: Previously placed stent is patent RIGHT CORONARY ARTERY: MID RCA: Previously placed stent has instent 20 % restenosis with a new at distal edge of stent Iron deficiency anemia (Chronic) COPD (chronic obstructive pulmonary disease) (Chronic) Tobacco abuse (Chronic) Medical non-compliance (Chronic) Ischemic cardiomyopathy (Chronic) Hospital Course and Treatment Imaging Results: Diagnostic Data Chest X-Ray 09/08/18 05:55 IMPRESSION: COPD and mild cardiomegaly. Electronically Signed: Sarah Edmonds MD at 6:48 EST , Service support , Operations: None Procedures: None Summary of Care Provided: The patient is a 57 year old M admitted 09/07/2018 due to shortness of breath. 1. Acute hypoxic respiratory insufficiency secondary to acute on chronic systolic CHF and probable HCAP-oxygen stable on room air at time of discharge. Ambulatory pulse ox completed and patient remained 95% with ambulation. 2. Acute on chronic systolic CHF/ischemic cardiomyopathy-status post ICD. Chest x-ray on admission with mild pulmonary congestion. BNP 2671. Patient received IV Lasix. Repeat chest x-ray this a.m. showed COPD and mild cardiomegaly. Echocardiogram November 2017 with EF 15-20%, stage II diastolic dysfunction, mild mitral valve insufficiency, mild tricuspid valve insufficiency, RVSP estimated to be 43 mmHg. Patient's home Lasix regimen increased to 40 mg twice daily. Patient has follow-up with Dr. Tirado tomorrow, 09/09/2018. Follow-up with primary care physician 1 week. 3. Right-sided probable gram-negative HCAP-chest x-ray with right-sided infiltrate. Afebrile. No leukocytosis. Started on oral Levaquin. Blood cultures drawn in ER, pending. History of MRSA HCAP. Discharged on Levaquin 750 mg for 7 days at discharge. 4. Chronic COPD/pulmonary fibrosis-no acute exacerbation. Continue home inhaler regimen. Patient has been recommended to follow-up with pulmonary medicine in the past. Follow-up with Dr. Ahmadi in 2-3 weeks. 5. CAD status post stents, chronically abnormal troponin-follows with Dr. Tirado. Continue aspirin, statin, carvedilol, Plavix, isosorbide. 6. Hypertension-stable. Continue home carvedilol, isosorbide, losartan. 7. Iron deficiency anemia-stable, continue iron supplementation. 8. Tobacco dependence-encourage smoking cessation. Nicotine replacement patch. 9. Noncompliance-daughter reports patient does not take his medications as prescribed. Possibly contributing to exacerbation of CHF. General: Alert, Oriented x3, Cooperative HEENT: Atraumatic, PERRLA, EOMI, Normocephalic Neck: Supple, No JVD, Negative Carotid Bruits Lungs: Diminished, few scattered crackles Cardiovascular: Regular rate, Regular Rhythm, Normal S1, Normal S2, No murmurs Abdomen: Bowel Sounds Present, Soft, Non Tender, Non-Distended Extremities: No clubbing, No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 Normal 1 K 4.7 LAB L501.5900 98-107 mmol/L Normal CL 103 LAB L501.6100 21.0-3 mmol/L Normal 2.0 CO2 29.0 LAB L501.6200 5-15 Normal GAP 5 Performed By: #### L500.2500 #### [facility] [address] [place], [address] TROPONIN-I Collected: 08/27/2018 Status: F Source: JI 8:10 PM [facility] REPOSITORY TYPE CODE TESTS RESULT OUT OF RANGE REFERENCE UNITS LAB L501.4010 <0.045 ng/mL Normal 0.032 TROPONIN-I Result Comment: TROPONIN-I EXPECTED VALUES <0.045 Negative 0.045 - 0.590 Consistent with Cardiac Damage > OR = 0.600 Critical Value Not every elevated troponin is indicative of MO. These values should be used with clinical judgement in examining the patient's clinical picture for diagnosis. To establish a diagnosis of MO versus myocardial injury, there must be a demonstrated rise and/or fall in the troponin values, in addition to ischemic symptoms, EKG changes, new regional wall motion abnormality, and/or angiographical evidence. PLEASE NOTE: REFERENCE RANGES EDITED 18 Performed By: #### L501.4010 #### [facility] [address] [place], [address] HISTORY AND PHYSICAL Observed: 08/27/2018 Status: F Source: [place] EXAM 7:17 PM [facility] REPOSITORY [facility] Medical Records Department [address] [facility] [address] [place] [address] History and Physical 08/27/18 1843 MR#: [id number] Acct: [id number] Name: ANTHONY VASQUEZ Rep #: [id number] : 1960 57 From: Dell Willson MD PCP: JEREMIE Amanda Status: ADM IN Y Location: [place] [id number] Problem List (1) Non-ischemic cardiomyopathy Status: Chronic (2) ICD (implantable cardioverter-defibrillator) in place Status: Chronic (3) History of coronary artery stent placement Status: Chronic Comment: PCI-RCA and CX (4) Iron deficiency anemia Status: Chronic Qualifiers: (5) COPD (chronic obstructive pulmonary disease) Status: Chronic Qualifiers: (6) Tobacco abuse Status: Chronic (7) Medical non-compliance Status: Chronic (8) SOB (shortness of breath) Status: Acute History of Present Illness Date of Admission: 08/27/18 Chief Complaint: SOB The patient is a 57 year old M with a medical history as below who presents with a few days of worsening SOB. He states that he has a very bad heart and that he takes his medications regularly. He was recently in the hospital with a COPD exacerbation and he feels that he has never recovered from that. He was given a script for prednisone on discharge which he never filled. He has also been coughing which has been non-productive. He presented to the ER on BiPAP and was able to be weaned when given ativan. He was found to have an indeterminate troponin and his EKG had T wave inversion in V5 and V6 which weren't present on 08/20, but they were present on 08/18. His troponin elevation was at his baseline and lower than when he had his cath in november. He was given a dose IV lasix in the ER. He denies fevers, chills, lightheadedness or dizziness. Past Medical History Past Medical History (Chronic Problems): Chronic Problems (Last Updated 08/16/18 @ 09:53 by Justin Zamarripa DO) COPD with acute exacerbation (Chronic) Non-ischemic cardiomyopathy (Chronic) ICD (implantable cardioverter-defibrillator) in place (Chronic) History of coronary artery stent placement (Chronic) PCI-RCA and CX Atherosclerosis of coronary artery of [place] heart without angina pectoris (Chronic) LEFT HEART ASSESSMENT Left Ventricular Ejection Fraction: by LV Gram 10-15 % Global Hypokinesis - Severe Depressed Left Ventricular systolic function Normal Left Ventricular End Diastolic Pressure LEFT MAIN: Non-obstructive LEFT ANTERIOR DECENDING ARTERY: Previously placed stent is patent DIAGONAL 1: Ostial - Mild luminal irregularities less than 30% DIAGONAL 2: Proximal - Non-obstructive CIRCUMFLEX ARTERY: MID CIRC: Previously placed stent is patent RIGHT CORONARY ARTERY: MID RCA: Previously placed stent has instent 20 % restenosis with a new at distal edge of stent Iron deficiency anemia (Chronic) COPD (chronic obstructive pulmonary disease) (Chronic) Tobacco abuse (Chronic) Medical non-compliance (Chronic) Ischemic cardiomyopathy (Chronic) Medical History: Medical History (Last Updated 08/16/18 @ 09:53 by Justin Zamarripa DO) Non-ischemic cardiomyopathy (Chronic) I42.8 Atherosclerosis of coronary artery of [place] heart without angina pectoris (Chronic) I25.10 LEFT HEART ASSESSMENT Left Ventricular Ejection Fraction: by LV Gram 10-15 % Global Hypokinesis - Severe Depressed Left Ventricular systolic function Normal Left Ventricular End Diastolic Pressure LEFT MAIN: Non-obstructive LEFT ANTERIOR DECENDING ARTERY: Previously placed stent is patent DIAGONAL 1: Ostial - Mild luminal irregularities less than 30% DIAGONAL 2: Proximal - Non-obstructive CIRCUMFLEX ARTERY: MID CIRC: Previously placed stent is patent RIGHT CORONARY ARTERY: MID RCA: Previously placed stent has instent 20 % restenosis with a new at distal edge of stent COPD exacerbation (Acute) J44.1 Recent discharge 12/14/17 following treatment for acute on chronic systolic CHF exacerbation, acute COPD exacerbation with acute hypoxic respiratory failure and MRSA HCAP PNA. Acute respiratory failure with hypoxemia (Inactive) J96.01 Iron deficiency anemia (Chronic) D50.9 NSVT (nonsustained ventricular tachycardia) (Inactive) I47.2 COPD (chronic obstructive pulmonary disease) (Chronic) J44.9 Tobacco abuse (Chronic) Z72.0 Medical non-compliance (Chronic) Z91.19 Ischemic cardiomyopathy (Chronic) I25.5 Acute on chronic systolic (congestive) heart failure I50.23 Restless leg syndrome G25.81 Acute bronchitis (Resolved) J20.9 HCAP (healthcare-associated pneumonia) (Resolved) J18.9 Recent discharge 12/14/17 following treatment for acute on chronic systolic CHF exacerbation, acute COPD exacerbation with acute hypoxic respiratory failure and MRSA HCAP PNA. Hypotension (Resolved) I95.9 MRSA (methicillin resistant Staphylococcus aureus) infection (Resolved) A49.02 Recent discharge 12/14/17 following treatment for acute on chronic systolic CHF exacerbation, acute COPD exacerbation with acute hypoxic respiratory failure and MRSA HCAP PNA. Near syncope (Resolved) R55 Elevated troponin (Inactive) R74.8 Allergies No Known Allergies Allergy (Verified 08/27/18 04:20) Home Medications: Ambulatory Orders Medication Instructions Recorded Nitroglycerin [Nitrostat] 0.4 mg SUBLINGUAL Q5M PRN #1 bottle 12/14/17 Surgical History: Surgical History (Last Updated 08/15/18 @ 10:13 by Justin Zamarripa DO) ICD (implantable cardioverter-defibrillator) in place (Chronic) Z95.810 History of coronary artery stent placement (Chronic) Z95.5 PCI-RCA and CX History of coronary artery stent placement Z95.5 TUT-Bpzqa-WGA and Cx History of left heart catheterization Onset Date: 12/14/17 Z98.890 CORONARY ANGIOGRAPHY DOMINANCE: Right Dominant LEFT HEART ASSESSMENT Left Ventricular Ejection Fraction: by LV Gram 10-15 % Global Hypokinesis - Severe Depressed Left Ventricular systolic function Normal Left Ventricular End Diastolic Pressure LEFT MAIN: Non-obstructive LEFT ANTERIOR DECENDING ARTERY: Previously placed stent is patent DIAGONAL 1: Ostial - Mild luminal irregularities less than 30% DIAGONAL 2: Proximal - Non-obstructive CIRCUMFLEX ARTERY: MID CIRC: Previously placed stent is patent RIGHT CORONARY ARTERY: MID RCA: Previously placed stent has instent 20 % restenosis with a new at distal edge of stent Surgical History: - - PCI x 10-11. Psychiatric History: No pertinent psych hx Smoking Status: Current some day smoker - *Family History Maternal Family History: Family History (Last Reviewed 08/15/18 @ 05:19 by Marcus Mi MD) Father CAD (coronary artery disease) Heart disease Mother CAD (coronary artery disease) Heart disease Aunt Cancer Brother Heart disease Hypertension History Items: Heart Disease Paternal Family History: Family History (Last Reviewed 08/15/18 @ 05:19 by Marcus Mi MD) Father CAD (coronary artery disease) Heart disease Mother CAD (coronary artery disease) Heart disease Aunt Cancer Brother Heart disease Hypertension History Items: Heart Disease Review of Systems Constitutional: Denies: Chills, Fever, Weight Change HEENT: Denies: Head Aches, Sinus Congestion, Sinus Drainage Cardiovascular: Denies: Chest Pain, Palpitations Respiratory: Reports: Cough, Shortness of Breath, Shortness of breath upon exertion. Denies: Shortness of breath at rest, Sputum production Gastrointestinal: Denies: Abdominal Pain, Nausea, Vomiting Genitourinary: Denies: Dysuria Musculoskeletal: Denies: Joint Pain, Joint Tenderness Skin: Denies: Rash, Wounds Neurological: Denies: Numbness, Tingling, Focal weakness Psychiatric: Denies: Anxiety, Depression, Homicidal Ideations, Suicidal Ideations Hematologic/ Lymphatic: Denies: Easy Bruising, Easy Bleeding VTE Information - Inpt Only VTE Present on Admission: No Patient Problems: Active and Suspected Problems (Last Updated 08/16/18 @ 09:53 by Justin Zamarripa DO) SOB (shortness of breath) (Acute) - Physical Exam General: Alert, Oriented x3, Cooperative, No apparent distress HEENT: Atraumatic, PERRLA, EOMI, Normocephalic Oral: Moist Mucosa Neck: Supple, No JVD Lungs: Normal air movement, No rhonchi, No wheeze, Diminished, Rales Cardiovascular: Regular rate, Regular Rhythm, Normal S1, Normal S2, No murmurs Abdomen: Soft, Non Tender, Non-Distended, No Hepato-splenomegaly Extremities: No edema, Capillary Refill Less than 3 Seconds Skin: No rashes, No breakdown Neurological: Neuro grossly intact, Sensory exam intact to light touch and pain Psych/Mental Status: Normal Affect, Appropriate Vital Signs Temp Pulse Resp BP Pulse Ox 98 F 90 16 120/100 H 99 08/27/18 18:00 08/27/18 18:00 08/27/18 18:00 08/27/18 18:00 08/27/18 18:00 Oxygen Flow Rate (L/min) 2 Oxygen Delivery Method Room Air Weight: 146 lb 2.664 oz Body Mass Index (BMI) 22.1 Intake and Output for Last 24 Hours Intake Total 240 / 240 Output Total 800 / 800 Balance -560 / -560 Microbiology Past 72 Hours 08/27/18 04:55 Influenza Types A,B Direct FA (SHARON) - Final Mucosa - Nasopharyngeal Laboratory Tests Past 24 Hrs WBC RBC Hgb Hct MCV MCH MCHC RDW RDW Differential Plt Count MPV Immature Gran % (Auto) Assessment/Plan All Active Problems (Last Updated 08/16/18 @ 09:53 by Justin Zamarripa DO) SOB (shortness of breath) (Acute) Elevated troponin (Resolved) COPD exacerbation (Acute) Acute bronchitis (Resolved) HCAP (healthcare-associated pneumonia) (Resolved) Hypotension (Resolved) MRSA (methicillin resistant Staphylococcus aureus) infection (Resolved) Near syncope (Resolved) 1. Acute on chronic systolic CHF/Acute hypoxic respiratory failure/HLD - He had a cath in november which showed normal coronary arteries on the left but his RCA stent had a 20% re-instent stenosis - His EF was 15-20% - We called the pharmacy that stated he hadnt picked up his meds since March - I will restart him on all of his medications that he should be on given his systolic dysfunction and monitor - No echo repeat as he had a cath less than a year ago - Repeat troponin - No chest pain to think he has worsening RCA stenosis since he has not been taking his ASA and plavix, will resume the antiplatelets - C/w his statin - LAsix 40 mg IV BID - We will need to investigate if he uses another pharmacy 2. Iron deficiency anemia - H/H is at baseline at 11.8 - continue with replacement 3. COPD - I dont think he has an acute exacerbation at the moment - Will provide duoneb DVT: Lovenox Diet: Cardiac Code Visit Inpatient E AND M: [id number] Init Hosp L3 08/27/187 <Electronically signed by Dell Willson MD> Date Dell Willson MD Cosigner Signature: Date (if applicable) CC: JEREMIE Oquendo; Dell Willson MD Signed URINE DRUG SCREEN Collected: 08/27/2018 Status: F Source: JI (VISTA) 6:34 PM [facility] REPOSITORY TYPE CODE TESTS RESULT OUT OF RANGE REFERENCE UNITS LAB L505.0075 TO BE Normal CONFIRMED Result Comment: CONFIRMATORY TESTING FOR ALL POSITIVE URINE DRUG SCREEN RESULTS WILL ONLY BE SENT OUT UPON PHYSICIAN ORDER. VISTA Urine Drug Screen methods provide only preliminary analytical test results. A more specific alternate chemical method must be used in order to obtain a confirmed analytical result. Gas chromatography/mass spectrometery (GC/MS) is the preferred confirmatory method. Clinical consideration and professional judgement should be applied to any drug of abuse test result, particularly when preliminary positive results are used. URINE TCA TESTING MUST BE ORDERED SEPARATELY. USE TEST MNEMONIC: [facility] LAB L505.5005 VISTA UDS PH 6 Normal LAB L505.5015 <1000 High ng/mL AMPHETAMINES POSITIVE LAB L505.5025 < 200 ng/mL BARBITIURATES Normal NEGATIVE LAB L505.5035 < 200 ng/mL BENZODIAZIPINE Normal NEGATIVE LAB L505.5045 < 300 ng/mL COCAINE Normal NEGATIVE LAB L505.5055 < 500 ng/mL ECSTACY Normal NEGATIVE LAB L505.5065 < 300 ng/mL METHADONE Normal NEGATIVE LAB L505.5075 < 300 ng/mL OPIATES Normal NEGATIVE LAB L505.5085 < 25 ng/mL PCP Normal NEGATIVE LAB L505.5095 < 50 ng/mL THC Normal NEGATIVE Performed By: #### L505.5000 #### [facility] [address] [place], [address] EMERGENCY DEPARTMENT Observed: 08/27/2018 Status: F Source: [place] SUMMARY 6:47 AM [facility] REPOSITORY [facility] Medical Records Department [address] [place] [address] Emergency Department Summary 08/27/18 0643 MR#: [id number] Acct: [id number] Name: ANTHONY VASQUEZ Rep #: [id number] : 1960 57 From: Ross Reynaga MD PCP: JEREMIE Amanda Status: REG ER - ER Visit Summary Date of Service: 08/27/18 Chief Complaint: Shortness of breath History of Present Illness: The patient is a 57 M who presents with shortness of breath. He states he has been increasingly short of breath over the past 2 weeks. This is severe. He has had 2 hospital admissions and several ER visits. He states that tonight he developed a fever of 101 and nausea with vomiting. He states he feels like he cannot breathe. He does complain of productive cough. Physical Examination: Afebrile hypertensive with blood pressure 145/110 pulse ox 100% on BiPAP respiratory rate 22 Patient is tachypneic with increased work of breathing but I do not appreciate rales rhonchi or wheezing Abdomen soft Patient does have mild pitting lower extremity edema Alert Test Results: EKG shows normal sinus rhythm at a rate of 100 with T wave inversions in V5 V6 1 and aVL. Labs notable for hemoglobin 11.8. Troponin 0 0.046. ABG is normal. Chest x-ray shows chronic changes without acute alveolar disease. Emergency Department Course and Treatment: Patient was given Ativan here. He was able to wean wean down off of BiPAP and eventually back to room air. He will maintain normal oxygen saturations but does occasionally desaturate but will quickly return to 97-100%. His beta natruretic peptide was significantly elevated. Although this is similar to the levels that he has been having during his recent multiple visits for shortness of breath it is significantly higher than what it was over the summer. Given indeterminate troponin and EKG changes I do feel he needs to be admitted for further evaluation. I do believe there is a component of just of heart failure exacerbation as well. He was given IV Lasix. He will be admitted. Treatment Plan: [] Disposition: Admit Impression: CHF exacerbation EKG changes This note was generated with [employer] dictation software. It may contain incorrect words, spelling, and punctuation that were not noted in review of the chart prior to signing ED Disposition - Plan for ED Patient: Chief Complaint: Shortness of Breath Referrals: Berna Oquendo, JEREMIE [Primary Care Provider] - What to do if you have Problems For any increased pain, shortness of breath, bleeding, nausea or vomiting, chest pain, or any unexpected problems, contact your Primary Care Provider. Call [facility] ([phone]) or report to the closest Emergency Room. Call 911 if necessary. 08/27/18 0647 <Electronically signed by Ross Reynaga MD> Date Ross Reynaga MD Cosigner Signature (If Indicated): Date CC: JEREMIE Oquendo BLOOD GASES BY CPS Collected: 08/27/2018 Status: F Source: JI 5:17 AM [facility] REPOSITORY TYPE CODE TESTS RESULT OUT OF RANGE REFERENCE UNITS LAB L9000.9990 Normal BLD GAS TYPE ART LAB L9001.1000 Normal SITE R Radial LAB L9001.1010 Normal JORGE TEST POS LAB L9001.1050 O2 Normal Delivery Dev Bi / C PAP LAB L9001.1070 RR Normal 12 LAB L9001.1074 Normal FI02 40 LAB L9001.1088 Normal IPAP 18 LAB L9001.1090 Normal EPAP 8 LAB L9001.1104 Normal Results To ED LAB L9001.1110 7.35-7.45 pH Normal - I-STAT 7.44 LAB L9001.1210 35-45 mmHg Normal pCO2 - ISTAT 36.6 LAB L9001.1310 75-100 mmHG High PO2 I-STAT 198 LAB L9001.2300 22-26 mmol/L Normal HCO3 ISTAT 24.6 LAB L9001.2400 -2 to +2 mmol/L BE Normal ISTAT 0 LAB L9001.2415 mmol/L Normal TOTAL CO2 26 ISTAT LAB L9001.2425 95-99 % High SO2 ISTAT 100 Performed By: #### L9000.0800 #### [facility] Point of Care [address] [place] [address] Observed: 08/27/2018 Status: F Source: [place] INFLUENZA A+B (RAPID 4:55 AM [facility] LINDA) REPOSITORY Order Date: 08/27/18 FLU A/B Rapid Negative test results should be confirmed by culture. Order Rapid Viral Culture for Influenzae A+B ([id number]) if clinically indicated. Influenza Ag, Direct Presumptive NEGATIVE for Influenza A/B Antigen (See Note) Performed By: #### M101.0101 #### [facility] [address] [place], [address] CHEST 1 VIEW Observed: 08/27/2018 Status: F Source: [place] (PORTABLE) 4:33 AM [facility] REPOSITORY [facility] Imaging Services [address] [place] [address] Chest 1 View (Portable) MR#: [id number] Acct: [id number] Name: ANTHONY VASQUEZ Rep #: [id number] : 1960 M 57 From: Irwin Sykes MD PCP: JEREMIE Amanda Status: REG ER Study: Chest 1 View (Portable) Date of Exam: 08/27/18 Exam# [id number] Ordering Dr: Ross Reynaga MD STUDY: X-RAY CHEST REASON FOR EXAM: Male, 57 years old. Chronic SOB TECHNIQUE: Single frontal view of the chest. COMPARISON: 08/20/2018 FINDINGS: Single chamber defibrillator on the left. Chronic interstitial lung changes without superimposed acute alveolar disease. There is no demonstrated pleural abnormality. Stable cardiomediastinal silhouette. Normal mediastinum and alberto. Normal visualized pulmonary arteries. Normal visualized aortic arch and descending thoracic aorta. Normal visualized thoracic spine. Normal visualized ribs, clavicles, and shoulders. There is no demonstrated abnormality of the visualized soft tissue structures of the upper abdomen. RAD/Chest 1 View (Portable) IMPRESSION: Chronic interstitial lung changes without superimposed acute alveolar disease. Electronically Signed: Irwin Sykes MD at 5:57 EST Tel , Service support , CC: JEREMIE Oquendo; Ross Reynaga MD Entry Level Software Engineer: Signed BASIC METABOLIC Collected: 08/27/2018 Status: F Source: JI PROFILE (BMP) 4:18 AM [facility] REPOSITORY TYPE CODE TESTS RESULT OUT OF RANGE REFERENCE UNITS LAB L501.0100 74-106 mg/dL Normal GLU 101 Result Comment: Fasting Glucose result from 100 to 125 mg/dL suggests IMPAIRED HOMEOSTASIS per A.D.A. criteria. Please note revised GLUCOSE reference range effective 2017. LAB L501.1000 7-18 mg/dL High BUN 24 LAB L501.1100 0.70-1.30 mg/dL Normal CREAT,SERUM 0.75 Result Comment: The validity of the calculated GFR AND GFRAA in patients over 70 years has not been determined. Clinical correlation is essential. LAB L501.1110 >60 mL/min Normal EST GFR 113 Result Comment: Non- GFR Calc LAB L501.1115 >60 mL/min Normal EST GFR - AA 137 Result Comment: GFR Calc LAB L501.1255 ml/min Normal Estimated CRCL 102.60 LAB L501.1300 10-20 RATIO High BUN/CRE 32.1 LAB L501.2200 8.5-10 mg/dL Low .1 CA 8.2 LAB L501.5300 136-14 mmol/L 5 NA Normal 138 LAB L501.5600 3.5-5. mmol/L 1 K Normal 4.2 LAB L501.5900 98-107 mmol/L CL Normal 105 LAB L501.6100 21.0-3 mmol/L 2.0 CO2 Normal 21.0 LAB L501.6200 5-15 GAP Normal 12 Performed By: #### L500.2500, L501.4010 #### [facility] [address] [place], [address] TROPONIN-I Collected: 08/27/2018 Status: F Source: [place] 4:18 AM [facility] REPOSITORY TYPE CODE TESTS RESULT OUT OF RANGE REFERENCE UNITS LAB L501.4010 <0.045 ng/mL High 0.046 TROPONIN-I Result Comment: TROPONIN-I EXPECTED VALUES <0.045 Negative 0.045 - 0.590 Consistent with Cardiac Damage > OR = 0.600 Critical Value Not every elevated troponin is indicative of [place]. These values should be used with clinical judgement in examining the patient's clinical picture for diagnosis. To establish a diagnosis of MO versus myocardial injury, there must be a demonstrated rise and/or fall in the troponin values, in addition to ischemic symptoms, EKG changes, new regional wall motion abnormality, and/or angiographical evidence. PLEASE NOTE: REFERENCE RANGES EDITED 18 Performed By: #### L500.2500, L501.4010 #### [facility] [address] [place], [address] CBC W/DIFF, AUTOMATED Collected: 08/27/2018 Status: F Source: [place] 4:18 AM [facility] REPOSITORY TYPE CODE TESTS RESULT OUT OF RANGE REFERENCE UNITS LAB L100.1000 4.4-11.0 K/mm3 Normal WBC 7.6 LAB L100.1200 4.6-6.2 M/mm3 Low RBC 4.05 LAB L100.1300 13.0-16.5 g/dl Low HGB 11.8 LAB L100.1400 40-54 % Low HCT 36.7 LAB L100.1500 80-94 fL Normal MCV 90.6 LAB L100.1600 27.0-32.0 pg Normal MCH 29.1 LAB L100.1700 32-36 g/gl Normal MCHC 32.2 LAB L100.1810 11.6-14.6 % High RDW CV 16.1 LAB L100.1820 35.1-43.9 fl High RDW SD 52.2 LAB L100.1900 150-450 K/mm3 Low PLT 125 LAB L100.2000 6.2-12.0 fl Normal MPV 9.3 LAB L100.2100 47-70 % High NEUT% 75.3 LAB L100.2200 19-41 % Low LY% 16.7 LAB L100.2300 0-10 % Normal MONO% 4.8 LAB L100.2400 0-5 % Normal EO% 2.4 LAB L100.2500 0-1 % Normal BASO% 0.5 LAB L100.2550 0.0-0.9 % Normal IM GRAN % 0.300 Result Comment: IG% - Immature Granulocytes (promyelocytes, myelocytes and metamyelocytes) > 1% indicates that a LEFT SHIFT is Present. LAB L100.2620 2.0-7.7 X10 3/uL Normal Absolute Neut 5.7 LAB L100.2720 0.83-4.51 X10 3/ul Normal Absolute Lymph 1.26 LAB L100.4500 SMEAR Normal COMMENT Result Comment: FEW PLATELET CLUMPS SEEN Performed By: #### L100.0100 #### [facility] [address] [place], [address] BNP,B-TYPE NATRIURETIC Collected: 08/27/2018 Status: F Source: [place] 4:18 AM [facility] REPOSITORY TYPE CODE TESTS RESULT OUT OF RANGE REFERENCE UNITS LAB L503.6620 0-100 pg/mL High B-TYPE 2275.2 HENRY PEP Performed By: #### L503.6620 #### [facility] [address] [place], [address] MAGNESIUM Collected: 08/27/2018 Status: F Source: JI 4:18 AM [facility] REPOSITORY TYPE CODE TESTS RESULT OUT OF RANGE REFERENCE UNITS LAB L501.5200 1.6-2.6 mg/dL Normal MG 1.7 Performed By: #### L501.5200 #### [facility] [address] [place], [address] EMERGENCY DEPARTMENT Observed: 08/21/2018 Status: F Source: JI SUMMARY 6:51 AM [facility] REPOSITORY [facility] Medical Records Department [address] [place] [address] Emergency Department Summary 08/21/18 0242 MR#: [id number] Acct: [id number] Name: ANTHONY VASQUEZ Rep #: [id number] : 1960 57 From: Bradford Moreau DO PCP: JEREMIE Amanda Status: DEP ER - ER Visit Summary Date of Service: 08/21/18 Chief Complaint: Shortness of breath History of Present Illness: The patient is a 57 M who presents the emergency department shortness of breath. He states this is been present for the past 5-7 days since he was in the hospital. He was admitted overnight for COPD exacerbation/anxiety. He tells me that that was the second time this month he was admitted. It began a month he had a CT Altagracia of the chest as well. He is a smoker with history of COPD nonischemic cardiomyopathy has an ICD in place and has had cardiac heart catheterization with stent. He states that he has had some chest tightness. Though he tells me none of this has changed since his last hospitalization. The patient is requesting a fan and is very upset that we do not have a fan readily available for him. He states that he is very hot. We advised that perhaps he should remove his stocking hat and coat and that might help him not to be so hot. Physical Examination: Afebrile vital signs show slight tachycardia and tachypnea. He is 98 per sent on nasal cannula and 96 on room air. Gen: Well-nourished well-developed Head: Normocephalic atraumatic Eyes: Perrl EOMI ENT: TMs clear no rhinorrhea moist mucous membranes Neck: Supple no lymphadenopathy no JVD nontender CVS: Regular rate and tachycardic rhythm no murmurs normal S1-S2 Respiratory: Tachypneic but lung sounds are clear bilaterally chest nontender Abdomen: Soft nontender nondistended normal bowel sounds no masses Back: Nontender Extremity: Nontender no edema Skin: Normal color no rash Neuro: alert orientated 3 CN II-XII intact normal strength sensation reflexes gait cerebellar Psych: Irritable and anxious Test Results: EKG shows a sinus rhythm at a rate of 98. White count 7.5 hemoglobin 11.5. Troponin 0 0.04. Chest x-ray showed chronic changes and possible developing infiltrate. CT Altagracia of the chest was obtained. This was negative for pulmonary embolism or for infiltrate. Emergency Department Course and Treatment: Patient received Ativan and Benadryl. He also received breathing treatment. He states that nobody is doing anything to help him and that nobody has evaluated him. He wishes to leave AMA. The patient appears to have the capacity to do so. The patient appears to be able to make a choice and communicate that choice. He understands risk benefits and alternatives. He understands the problem he is having treatment options risk of treatments and what will happen if he chooses no treatments. He can make logical rational decisions. Patient is a and O x3 not in the in all 3 drugs. He has his own power of county attorney. Impression: 1. Dyspnea 2. Left AMA This note was generated with Sentrinsic dictation software. It may contain incorrect words, spelling, and punctuation that were not noted in review of the chart prior to signing ED Disposition - Plan for ED Patient: Disposition: Against Medical Advice Chief Complaint: Shortness of Breath Referrals: Berna Oquendo, [facility] [Primary Care Provider] - What to do if you have Problems For any increased pain, shortness of breath, bleeding, nausea or vomiting, chest pain, or any unexpected problems, contact your Primary Care Provider. Call [facility] ([phone]) or report to the closest Emergency Room. Call 911 if necessary. 08/21/18 0651 <Electronically signed by Bradford Moreau DO> Date Bradford Moreau DO Cosigner Signature (If Indicated): Date CC: JEREMIE Oquendo CTA CHEST W/WO Observed: 08/21/2018 Status: F Source: JI CONTRAST 12:50 AM [facility] REPOSITORY [facility] Imaging Services [address] [place] [address] [place] [address] CTA Chest W/WO Contrast MR#: [id number] Acct: [id number] Name: ANTHONY VASQUEZ Rep #: [id number] : 1960 M 57 From: Sarah Edmonds MD PCP: JEREMIE Amanda Status: DEP ER Study: CTA Chest W/WO Contrast Date of Exam: 08/21/18 Exam# [id number] Ordering Dr: Bradford Moreau DO STUDY: CTA CHEST REASON FOR EXAM: Male, 57 years old. Shortness of breath and weakness. RADIATION DOSAGE (If Supplied By Facility): CTDIvol = ( 10.01 ) mGy, DLP = ( 365.57 ) mGycm TECHNIQUE: The examination was performed with the intravenous administration of 100 ml of Isovue 370 contrast material. Post-processing of the angiographic images was performed, with multiplanar reformation and 3D reconstruction. Individualized dose optimization techniques were used for this CT. COMPARISON: None. FINDINGS: Patient has a left-sided intracardiac pacemaker. Normal enhancement of the main pulmonary artery and right and left pulmonary arteries. Normal enhancement of the bilateral peripheral pulmonary arteries. There is no demonstrated pulmonary embolism. There is prominence of the main pulmonary arteries without peripheral pulmonary vascular congestion. There is atherosclerotic calcification of the aortic arch with tortuosity. There is no demonstrated aortic dissection. There is cardiomegaly. There are calcifications of the coronary arteries. There are prominent prevascular lymph nodes. There appear to be enlarged precarinal and pretracheal lymph nodes. There appears to be a right-sided hilar lymphadenopathy. There are also prominent left-sided hilar lymph nodes. Normal visualized trachea and bronchi. The lungs are hyper expanded, with flattening of the hemidiaphragms. There are patchy lucencies visible throughout both upper lobes that probably represent centrilobular emphysema. The lungs otherwise appear to be clear. There is mild prominence of bronchovascular markings. Normal pleura. Normal chest wall structures. The bones appear osteopenic. There is multilevel thoracic spondylosis. Normal visualized upper abdomen. CT/CTA Chest W/WO Contrast IMPRESSION: 1. No CTA demonstrated pulmonary embolism or arterial dissection. 2. Cardiomegaly and sequela of coronary artery vascular disease. 3. Nonspecific mediastinal and hilar lymphadenopathy. Electronically Signed: Sarah Edmonds MD at 2:31 EST , Service support , CC: JEREMIE Oquendo; Bradford Moreau DO Entry Level Software Engineer: Signed BASIC METABOLIC Collected: 08/20/2018 Status: F Source: JI PROFILE (BMP) 11:43 PM [facility] REPOSITORY TYPE CODE TESTS RESULT OUT OF RANGE REFERENCE UNITS LAB L501.0100 74-106 mg/dL Normal GLU 90 Result Comment: Please note revised GLUCOSE reference range effective 2017. LAB L501.1000 7-18 mg/dL High BUN 24 LAB L501.1100 0.70-1.30 mg/dL Normal CREAT,SERUM 0.80 Result Comment: The validity of the calculated GFR AND GFRAA in patients over 70 years has not been determined. Clinical correlation is essential. LAB L501.1110 >60 mL/min Normal EST GFR 105 Result Comment: Non- GFR Calc LAB L501.1115 >60 mL/min Normal EST GFR - AA 127 Result Comment: GFR Calc LAB L501.1255 ml/min Normal Estimated CRCL 96.19 LAB L501.1300 10-20 RATIO High BUN/CRE 30.0 LAB L501.2200 8.5-10 mg/dL Low .1 CA 8.2 LAB L501.5300 136-14 mmol/L Normal 5 NA 136 LAB L501.5600 3.5-5. mmol/L Normal 1 K 4.6 LAB L501.5900 98-107 mmol/L Normal CL 106 LAB L501.6100 21.0-3 mmol/L Normal 2.0 CO2 25.0 LAB L501.6200 5-15 Normal GAP 5 Performed By: #### L500.2500, L501.4010 #### [facility] [address] [place], [address] TROPONIN-I Collected: 08/20/2018 Status: F Source: JI 11:43 PM [facility] REPOSITORY TYPE CODE TESTS RESULT OUT OF RANGE REFERENCE UNITS LAB L501.4010 <0.045 ng/mL Normal 0.045 TROPONIN-I Result Comment: TROPONIN-I EXPECTED VALUES <0.045 Negative 0.045 - 0.590 Consistent with Cardiac Damage > OR = 0.600 Critical Value Not every elevated troponin is indicative of MO. These values should be used with clinical judgement in examining the patient's clinical picture for diagnosis. To establish a diagnosis of MO versus myocardial injury, there must be a demonstrated rise and/or fall in the troponin values, in addition to ischemic symptoms, EKG changes, new regional wall motion abnormality, and/or angiographical evidence. PLEASE NOTE: REFERENCE RANGES EDITED 18 Performed By: #### L500.2500, L501.4010 #### [facility] [address] [place], [address] CBC W/DIFF, AUTOMATED Collected: 08/20/2018 Status: F Source: [place] 11[facility] TYPE CODE TESTS RESULT OUT OF RANGE REFERENCE UNITS LAB L100.1000 4.4-11.0 K/mm3 Normal WBC 7.5 LAB L100.1200 4.6-6.2 M/mm3 Low RBC 3.90 LAB L100.1300 13.0-16.5 g/dl Low HGB 11.5 LAB L100.1400 40-54 % Low HCT 36.0 LAB L100.1500 80-94 fL Normal MCV 92.3 LAB L100.1600 27.0-32.0 pg Normal MCH 29.5 LAB L100.1700 32-36 g/gl Low MCHC 31.9 LAB L100.1810 11.6-14.6 % High RDW CV 14.9 LAB L100.1820 35.1-43.9 fl High RDW SD 49.6 LAB L100.1900 150-450 K/mm3 Normal PLT 160 LAB L100.2000 6.2-12.0 fl Normal MPV 10.0 LAB L100.2100 47-70 % High NEUT% 73.0 LAB L100.2200 19-41 % Low LY% 15.8 LAB L100.2300 0-10 % Normal MONO% 7.5 LAB L100.2400 0-5 % Normal EO% 2.8 LAB L100.2500 0-1 % Normal BASO% 0.8 LAB L100.2550 0.0-0.9 % Normal IM GRAN % 0.100 Result Comment: IG% - Immature Granulocytes (promyelocytes, myelocytes and metamyelocytes) > 1% indicates that a LEFT SHIFT is Present. LAB L100.2620 2.0-7.7 X10 3/uL Normal Absolute Neut 5.5 LAB L100.2720 0.83-4.51 X10 3/ul Normal Absolute Lymph 1.19 Performed By: #### L100.0100 #### [facility] [address] [place], [address] CHEST PA AND LATERAL Observed: 08/20/2018 Status: F Source: [place] 11:33 PM [facility] REPOSITORY [facility] Imaging Services [address] [place] [address] Chest PA and Lateral MR#: [id number] Acct: [id number] Name: ANTHONY VASQUEZ Raffi Rep #: [id number] : 1960 M 57 From: Sarah Edmonds MD PCP: JEREMIE Amanda Status: REG ER Study: Chest PA and Lateral Date of Exam: 08/20/18 Exam# [id number] Ordering Dr: Bradford Moreau DO STUDY: X-RAY CHEST REASON FOR EXAM: Male, 57 years old. Shortness of breath and weakness. TECHNIQUE: PA and lateral views of the chest. COMPARISON: August 18, 2018. FINDINGS: Left-sided intercardiac pacemaker is present. Cardiac monitoring leads are present. There is hyperinflation of the lungs consistent with chronic obstructive lung disease (COPD). There is perihilar interstitial thickening. There is suggestion for a patchy right basilar airspace consolidation and/or atelectasis. There is suggestion for right-sided perihilar airspace disease. There is no demonstrated pleural abnormality. There is mild cardiac enlargement. Normal mediastinum and alberto. There is prominence of the pulmonary hilar arteries without peripheral pulmonary vascular congestion. There is atherosclerotic calcification of the aortic arch with tortuosity. There is demineralization of the osseous structures. There is straightening of the normal thoracic kyphosis with multilevel spondylosis. Normal visualized ribs, clavicles, and shoulders. There is no demonstrated abnormality of the visualized soft tissue structures of the upper abdomen. RAD/Chest PA and Lateral IMPRESSION: Increasing right basilar and perihilar airspace disease possibly representing pneumonia. Electronically Signed: Sarah Edmonds MD at 0:38 EST , Service support , CC: JEREMIE Oquendo; Bradford Moreau DO Entry Level Software Engineer: Signed DISCHARGE INSTRUCTION Observed: 08/18/2018 Status: F Source: [place] 4:07 PM [facility] REPOSITORY [facility] Medical Records Department [address] [place] [address] Discharge Instruction 08/18/18 160 MR#: [id number] Acct: [id number] Name: ANTHONY VASQUEZ Rep #: [id number] : 1960 57 From: Lewis Molina MD PCP: JEREMIE Amanda Status: REG ER ED Disposition - Plan for ED Patient: Disposition: Home or Assisted Living Chief Complaint: Shortness of Breath Instructions: ED COPD Flare Referrals: Berna Oquendo NP-C [Primary Care Provider] - As Needed Additional Instructions: Continue your current medications. What to do if you have Problems For any increased pain, shortness of breath, bleeding, nausea or vomiting, chest pain, or any unexpected problems, contact your Primary Care Provider. Call [facility] ([phone]) or report to the closest Emergency Room. Call 911 if necessary. 08/18/181606 <Electronically signed by Lewis Molina MD> Date Lewis Molina MD Cosigner Signature (If Indicated): Date CC: JEREMIE Oquendo EMERGENCY DEPARTMENT Observed: 08/18/2018 Status: F Source: JI SUMMARY 4:07 PM [facility] REPOSITORY [facility] Medical Records Department [address] [place] [address] Emergency Department Summary 08/18/18 1321 MR#: [id number] Acct: [id number] Name: ANTHONY VASQUEZ Rep #: [id number] : 1960 57 From: Lewis Molina MD PCP: JEREMIE Amanda Status: REG ER - ER Visit Summary Date of Service: 08/18/18 Chief Complaint: Shortness of breath History of Present Illness: The patient is a 57 M recently hospitalized and discharged. Patient states his been short of breath for days. With wheezing. Dark productive sputum. No hemoptysis. No chest pain. No history of DVT or PE. He does have an extensive history of COPD with prior MO, CHF and cardiac stents. He has a pacemaker defibrillator. He denies any significant weight gain or swelling to his legs. Physical Examination: Middle-aged male. No acute distress. He is 99% on 2 L. H EENT exam unremarkable. Neck nontender no JVD. Lungs prolonged expiratory phase with a few scattered wheezes. No rales or rhonchi. Equal symmetrical. Dry cough. Heart regular rate and rhythm no murmur. Abdomen is soft nontender. Patient is moving all 4 extremities. They are neurovascularly intact. He has trace equal symmetrical edema both lower extremities. Calves are nontender without cords. Neurologically is awake alert with no focal motor deficits. Test Results: CBC shows a white count 8. Hemoglobin 12.3. Electrolytes unremarkable. Normal creatinine and gap. Troponin normal. BNP is elevated 3141 but he has no significant signs of failure. Chest x-ray shows chronic changes with a left-sided defibrillator but no acute process. Read both by myself and the radiologist. EKG is a sinus rhythm rate of 95 inverted T waves in V5 and V6 but completely unchanged from prior EKG from 08/15/2018. Emergency Department Course and Treatment: Male with a history of COPD and cardiac disease with recent admission. Complaining of shortness of breath. He will be given both albuterol and DuoNeb aerosols. Repeat exam at 1555 patient is doing well. I went over all test results with him. He is comfortable being discharged to home. Treatment Plan: Continue on his current medications. Follow- up with his primary care provider. Disposition: Discharge Impression: Acute dyspnea Acute exacerbation of COPD This note was generated with Sentrinsic dictation software. It may contain incorrect words, spelling, and punctuation that were not noted in review of the chart prior to signing ED Disposition - Plan for ED Patient: Chief Complaint: Shortness of Breath Referrals: Berna Oquendo, JEREMIE [Primary Care Provider] - What to do if you have Problems For any increased pain, shortness of breath, bleeding, nausea or vomiting, chest pain, or any unexpected problems, contact your Primary Care Provider. Call [facility] ([phone]) or report to the closest Emergency Room. Call 911 if necessary. 08/18/18 1607 <Electronically signed by Lewis Molina MD> Date Lewis Molina MD Cosigner Signature (If Indicated): Date CC: NEWSPAPER COLUMNIST-C Berna Oquendo CBC W/DIFF, AUTOMATED Collected: 08/18/2018 Status: F Source: JI 1:34 PM [facility] REPOSITORY TYPE CODE TESTS RESULT OUT OF RANGE REFERENCE UNITS LAB L100.1000 4.4-11.0 K/mm3 Normal WBC 8.1 LAB L100.1200 4.6-6.2 M/mm3 Low RBC 4.20 LAB L100.1300 13.0-16.5 g/dl Low HGB 12.3 LAB L100.1400 40-54 % Low HCT 38.4 LAB L100.1500 80-94 fL Normal MCV 91.4 LAB L100.1600 27.0-32.0 pg Normal MCH 29.3 LAB L100.1700 32-36 g/gl Normal MCHC 32.0 LAB L100.1810 11.6-14.6 % High RDW CV 14.8 LAB L100.1820 35.1-43.9 fl High RDW SD 49.0 LAB L100.1900 150-450 K/mm3 Normal PLT 209 LAB L100.2000 6.2-12.0 fl Normal MPV 9.0 LAB L100.2100 47-70 % High NEUT% 78.3 LAB L100.2200 19-41 % Low LY% 14.1 LAB L100.2300 0-10 % Normal MONO% 6.8 LAB L100.2400 0-5 % Normal EO% 0.5 LAB L100.2500 0-1 % Normal BASO% 0.1 LAB L100.2550 0.0-0.9 % Normal IM GRAN % 0.200 Result Comment: IG% - Immature Granulocytes (promyelocytes, myelocytes and metamyelocytes) > 1% indicates that a LEFT SHIFT is Present. LAB L100.2620 2.0-7.7 X10 3/uL Normal Absolute Neut 6.4 LAB L100.2720 0.83-4.51 X10 3/ul Normal Absolute Lymph 1.15 Performed By: #### L100.0100 #### [facility] [address] [place], [place], [address] BASIC METABOLIC Collected: 08/18/2018 Status: F Source: [place] PROFILE ([facility]) 1:34 PM [facility] REPOSITORY TYPE CODE TESTS RESULT OUT OF RANGE REFERENCE UNITS LAB L501.0100 74-106 mg/dL Normal GLU 101 Result Comment: Fasting Glucose result from 100 to 125 mg/dL suggests IMPAIRED HOMEOSTASIS per A.D.A. criteria. Please note revised GLUCOSE reference range effective 2017. LAB L501.1000 7-18 mg/dL High BUN 20 LAB L501.1100 0.70-1.30 mg/dL Normal CREAT,SERUM 0.80 Result Comment: The validity of the calculated GFR AND GFRAA in patients over 70 years has not been determined. Clinical correlation is essential. LAB L501.1110 >60 mL/min Normal EST GFR 106 Result Comment: Non- GFR Calc LAB L501.1115 >60 mL/min Normal EST GFR - AA 128 Result Comment: GFR Calc LAB L501.1255 ml/min Normal Estimated CRCL 95.68 LAB L501.1300 10-20 RATIO High BUN/CRE 25.2 LAB L501.2200 8.5-10 mg/dL Low .1 CA 8.3 LAB L501.5300 136-14 mmol/L Normal 5 NA 136 LAB L501.5600 3.5-5. mmol/L Normal 1 K 4.4 LAB L501.5900 98-107 mmol/L Normal CL 102 LAB L501.6100 21.0-3 mmol/L Normal 2.0 CO2 27.0 LAB L501.6200 5-15 Normal GAP 7 Performed By: #### L500.2500, L501.4010 #### [facility] [address] [place], [place], [id number] TROPONIN-I Collected: 08/18/2018 Status: F Source: [place] 1:34 PM [facility] REPOSITORY TYPE CODE TESTS RESULT OUT OF RANGE REFERENCE UNITS LAB L501.4010 <0.045 ng/mL Normal 0.033 TROPONIN-I Result Comment: TROPONIN-I EXPECTED VALUES <0.045 Negative 0.045 - 0.590 Consistent with Cardiac Damage > OR = 0.600 Critical Value Not every elevated troponin is indicative of MO. These values should be used with clinical judgement in examining the patient's clinical picture for diagnosis. To establish a diagnosis of MO versus myocardial injury, there must be a demonstrated rise and/or fall in the troponin values, in addition to ischemic symptoms, EKG changes, new regional wall motion abnormality, and/or angiographical evidence. PLEASE NOTE: REFERENCE RANGES EDITED 18 Performed By: #### L500.2500, L501.4010 #### [facility] [address] [place], [place], [id number] BNP,B-TYPE NATRIURETIC Collected: 08/18/2018 Status: F Source: [place] 1:34 PM [facility] REPOSITORY TYPE CODE TESTS RESULT OUT OF RANGE REFERENCE UNITS LAB L503.6620 0-100 pg/mL High B-TYPE 3141.2 HENRY PEP Performed By: #### L503.6620 #### [facility] [address], [address] CHEST PA AND LATERAL Observed: 08/18/2018 Status: F Source: JI 1:18 PM [facility] REPOSITORY [facility] Imaging Services [address] [place] [address] Chest PA and Lateral MR#: [id number] Acct: [id number] Name: ANTHONY VASQUEZ Rep #: [id number] : 1960 M 57 From: Edgar Jackman MD PCP: JEREMIE Amanda Status: REG ER Study: Chest PA and Lateral Date of Exam: 08/18/18 Exam# [id number] Ordering Dr: Lewis Molina MD STUDY: X-RAY CHEST REASON FOR EXAM: Male, 57 years old. Shortness of breath TECHNIQUE: Frontal and lateral views of the chest COMPARISON: 08/15/2018 FINDINGS: The lungs are clear. There are no pleural effusions. There is no pneumothorax. The heart is enlarged, but stable in size. Again noted is a pacemaker. The visualized osseous structures are within normal limits. RAD/Chest PA and Lateral IMPRESSION: No acute thoracic pathology. Electronically Signed: Edgar Jackman, at 14:26 EST Tel , Service support , CC: JEREMIE Oquendo; Lewis Molina MD Entry Level Software Engineer: Signed DISCHARGE SUMMARY Observed: 08/16/2018 Status: F Source: JI 9:57 AM [facility] REPOSITORY [facility] Medical Records Department [address] [place] [address] Discharge Summary 08/16/18 0953 MR#: [id number] Acct: [id number] Name: ANTHONY VASQUEZ Rep #: [id number] : 1960 57 From: Justin Zamarripa DO PCP: JEREMIE Amanda Status: ADM IN Y Location: MS3 [id number] ADDENDUM by Justin Zamarripa DO on 08/16/18 at 0957 Code Visit OBSV E AND M: [id number] Observation care discharge - disregard the 239. 08/16/18 0957 <Electronically signed by Justin Zamarripa DO> Date Justin Zamarripa DO cc: NEWSPAPER COLUMNIST-C Berna Oquendo; Justin Zamarripa DO * Signed Discharge Date and Diagnosis - Problem List Patient Problems: Active and Suspected Problems (Last Updated 08/15/18 @ 10:13 by Justin Zamarripa DO) COPD exacerbation (Acute) Recent discharge 12/14/17 following treatment for acute on chronic systolic CHF exacerbation, acute COPD exacerbation with acute hypoxic respiratory failure and MRSA HCAP PNA. Date of Admission: 08/15/18 Date of Discharge: 08/16/18 - Primary Discharge Diagnosis Active and Suspected Problems (Last Updated 08/15/18 @ 10:13 by Justin Zamarripa DO) Elevated troponin (Acute) - Secondary Discharge Diagnosis Chronic Problems (Last Updated 08/15/18 @ 10:13 by Justin Zamarripa DO) COPD with acute exacerbation (Chronic) Non-ischemic cardiomyopathy (Chronic) ICD (implantable cardioverter-defibrillator) in place (Chronic) History of coronary artery stent placement (Chronic) PCI-RCA and CX Atherosclerosis of coronary artery of [place] heart without angina pectoris (Chronic) LEFT HEART ASSESSMENT Left Ventricular Ejection Fraction: by LV Gram 10-15 % Global Hypokinesis - Severe Depressed Left Ventricular systolic function Normal Left Ventricular End Diastolic Pressure LEFT MAIN: Non-obstructive LEFT ANTERIOR DECENDING ARTERY: Previously placed stent is patent DIAGONAL 1: Ostial - Mild luminal irregularities less than 30% DIAGONAL 2: Proximal - Non-obstructive CIRCUMFLEX ARTERY: MID CIRC: Previously placed stent is patent RIGHT CORONARY ARTERY: MID RCA: Previously placed stent has instent 20 % restenosis with a new at distal edge of stent Iron deficiency anemia (Chronic) COPD (chronic obstructive pulmonary disease) (Chronic) Tobacco abuse (Chronic) Medical non-compliance (Chronic) Ischemic cardiomyopathy (Chronic) Hospital Course and Treatment Imaging Results: Clinical Impression(s) from Imaging Studies Chest X-Ray 08/15/18 02:05 IMPRESSION: Chronic interstitial changes. Mild cardiomegaly. Pacemaker. No evidence for acute cardiopulmonary pathology. Electronically Signed: Trey Roman MD at 2:59 EST , Service support , Operations: None Procedures: None Summary of Care Provided: The patient is a 57 year old M presents with shortness of breath. Patient's ABG was, if anything was more concerned with hyperventilation. Patient was diagnosed with acute exacerbation of COPD but may be compounded by patient's underlying Neto disorder. Patient was started on steroids and patient did well was there. Patient will be discharged home today in stable condition. Patient be on a prednisone taper. Patient was just discharged about a week prior. Patient was ambulated in the hallway and I was 90% on room air, so patient will not require oxygen upon discharge. 1. AECOPD * improved * 97% on RA * ABG cw hyperventilation * decrease steroids * maybe complicated by anxiety 2. Elevated troponins * stress test 12/25/17 was negative * [facility] 12/14/17 was unremarkable * likely troponin leak due to demand in a patient with cardiomyopathy with EF 10-15% * no additional work up 3. Ischemic cardiomyopathy * EF 10-15% from [facility] on 12/14/17 * s/p AICD on 01/10/18 * BNP elevated but no clinical nor radiographic CHF. * on Lasix and losartan 4. CAD: * continue ASA, plavix, HIS * continue Coreg[] Patient Problems: Active and Suspected Problems (Last Updated 08/15/18 @ 10:13 by Justin Zamarripa DO) COPD exacerbation (Acute) Recent discharge 12/14/17 following treatment for acute on chronic systolic CHF exacerbation, acute COPD exacerbation with acute hypoxic respiratory failure and MRSA HCAP PNA. - Physical Exam General: Alert, No apparent distress Neck: No Nodes, Thyroid Normal Size and Texture Lungs: Clear to auscultation, Diminished Cardiovascular: Regular rate, Regular Rhythm, Normal S1, Normal S2 Abdomen: Bowel Sounds Present, Soft, Non Tender, Non-Distended Vital Signs Temp Pulse Resp BP Pulse Ox 36.1 C L 88 20 H 135/85 H 100 08/16/18 08:10 08/16/18 08:10 08/16/18 08:10 08/16/18 08:10 08/16/18 09:23 Oxygen Flow Rate (L/min) 2 Oxygen Delivery Method Room Air Weight: 71.35 kg Body Mass Index (BMI) 23.9 Intake and Output for Last 24 Hours Intake Total 735 / 735 680 / 680 Balance 735 / 735 680 / 680 Laboratory Tests Past 24 Hrs Sodium 138 Potassium 5.2 H Chloride 102 Carbon Dioxide 28.0 Anion Gap 8 Discharge Diet: Low fat/ Low Cholesterol, 6 Cup Fluid Restriction, 2000 mg Sodium Diet Discharge Activity: Return to Normal Activity Call your doctor if you observe: Fever of 101 or Higher, Shortness of breath, Swelling in the ankles Home Medications: Medications to take at Discharge Gabapentin [Neurontin] 600 mg PO DAILY #30 tab 12/14/17 Nitroglycerin [Nitrostat] 0.4 mg SUBLINGUAL Q5M PRN #1 bottle 12/14/17 aspirin 81 mg chewable tablet 81 mg PO DAILY@0800 #30 tab.chew 01/11/18 atorvastatin 80 mg tablet 80 mg PO QHS #30 tab 01/11/18 carvedilol 6.25 mg tablet 6.25 mg PO BID #60 tab 01/11/18 clopidogrel 75 mg tablet 75 mg PO DAILY #30 tab 01/11/18 furosemide 40 mg tablet 40 mg PO DAILY #30 tab 01/11/18 isosorbide mononitrate ER 30 mg tablet,extended release 24 hr 30 mg PO DAILY #30 tab 01/11/18 losartan 25 mg tablet 25 mg PO DAILY #30 tab 01/11/18 potassium chloride ER 20 mEq tablet,extended release(part/cryst) 20 meq PO DAILY #30 tab 01/11/18 ferrous gluconate 324 mg (37.5 mg iron) tablet 325 mg PO BIDCM #60 tab 01/15/18 Acetaminophen [Tylenol Tablet] 650 mg PO Q6H PRN PRN tablet 08/05/18 Albuterol Sulfate [Ventolin Hfa] 18 gm IH [id number] PRN #1 hfa.aer.ad 08/05/18 Guaifenesin [Mucinex] 1,200 mg PO BID #10 tablet 08/16/18 Prednisone 10 mg PO UD #30 tablet 08/16/18 Following Prescrptions Were Given to Patient: Prednisone 10 mg PO UD #30 tablet Guaifenesin [Mucinex] 1,200 mg PO BID #10 tablet Primary Care Physician: Berna Oquendo NP-C [Primary Care Provider] - Within 2 Weeks Please Follow Up With: Fco Ahmadi DO When: 1-2 months. Please Follow Up With: Bradford Tirado MD When: next scheduled appointment. Disposition: Home Minutes spent on discharge:: 33 Patient Condition:: Fair Medical Necessity - Tobacco Use Smoking Status: Current every day smoker Tobacco Use: Cigarettes Meaningful Use Info Meaningful Use Diagnoses (Choose all that apply): CHF - CHF YUE/ARB ordered at discharge?: Yes Documented LVEF (%): 15 Code Visit Inpatient E AND M: 25301 Disch Hosp 08/16/18 0957 <Electronically signed by Justin Zamarripa DO> Date Justin Zamarripa DO Cosigner Signature (if applicable): Date CC: JEREMIE Oquendo; Justin Zamarripa DO Signed DISCHARGE INSTRUCTION Observed: 08/16/2018 Status: F Source: [place] 9:53 AM [facility] REPOSITORY [facility] Medical Records Department [address] [place] [id number] Instructions for Home/Discharge Instructions 08/16/18 0950 MR#: [id number] Acct: [id number] Name: ANTHONY VASQUEZ Rep #: [id number] : 1960 57 From: Justin Zamarripa DO PCP: JEREMIE Amanda Status: ADM IN - Discharge Diagnoses Current Active Problems: Current Active and Chronic Problems (Last Updated 08/15/18 @ 10:13 by Justin Zamarripa DO) Elevated troponin (Acute) You will use the following diet at home:: Cardiac, Fluid restricted (specify 2000 mls, 1500 mls) - 1500 cc day Your food should be the consistency of: Regular Your liquids should be the consistency of: Regular/Thin Discharge Activity: Return to Normal Activity Call your doctor if you observe: Fever of 101 or Higher, Shortness of breath, Swelling in the ankles Allergies/Adverse Reactions: Allergies No Known Allergies Allergy (Verified 07/28/18 20:01) Medications to take at Discharge Gabapentin [Neurontin] 600 mg PO DAILY #30 tab 12/14/17 Nitroglycerin [Nitrostat] 0.4 mg SUBLINGUAL Q5M PRN #1 bottle 12/14/17 aspirin 81 mg chewable tablet 81 mg PO DAILY@0800 #30 tab.chew 01/11/18 atorvastatin 80 mg tablet 80 mg PO QHS #30 tab 01/11/18 carvedilol 6.25 mg tablet 6.25 mg PO BID #60 tab 01/11/18 clopidogrel 75 mg tablet 75 mg PO DAILY #30 tab 01/11/18 furosemide 40 mg tablet 40 mg PO DAILY #30 tab 01/11/18 isosorbide mononitrate ER 30 mg tablet,extended release 24 hr 30 mg PO DAILY #30 tab 01/11/18 losartan 25 mg tablet 25 mg PO DAILY #30 tab 01/11/18 potassium chloride ER 20 mEq tablet,extended release(part/cryst) 20 meq PO DAILY #30 tab 01/11/18 ferrous gluconate 324 mg (37.5 mg iron) tablet 325 mg PO BIDCM #60 tab 01/15/18 Acetaminophen [Tylenol Tablet] 650 mg PO Q6H PRN PRN tablet 08/05/18 Albuterol Sulfate [Ventolin Hfa] 18 gm IH [id number] PRN #1 hfa.aer.ad 08/05/18 Guaifenesin [Mucinex] 1,200 mg PO BID #10 tablet 08/16/18 Prednisone 10 mg PO UD #30 tablet 08/16/18 The following prescriptions were given: Prednisone 10 mg PO UD #30 tablet Guaifenesin [Mucinex] 1,200 mg PO BID #10 tablet Primary Care Physician: Berna Oquendo NP-C [Primary Care Provider] - Within 2 Weeks Test Results: Test results from this visit will be discussed in further detail at your follow-up appointment, if applicable. Please Follow Up With: Fco Ahmadi DO When: 1-2 months. Please Follow Up With: Bradford Tirado MD When: next scheduled appointment. Proposed Discharge Date: 08/16/18 08/16/18 0953 <Electronically signed by Justin Zamarripa DO> Date Justin Dallin CAMPOS CC: JEREMIE Oquendo BASIC METABOLIC Collected: 08/16/2018 Status: F Source: [place] PROFILE (BMP) 5:30 AM [facility] REPOSITORY TYPE CODE TESTS RESULT OUT OF RANGE REFERENCE UNITS LAB L501.0100 74-106 mg/dL High GLU 132 Result Comment: Fasting Glucose result greater than or equal to 126 mg/dL suggests DIABETES MELLITUS per A.D.A. criteria. Please note revised GLUCOSE reference range effective 2017. LAB L501.1000 7-18 mg/dL High BUN 23 LAB L501.1100 0.70-1.30 mg/dL Normal CREAT,SERUM 0.87 Result Comment: The validity of the calculated GFR AND GFRAA in patients over 70 years has not been determined. Clinical correlation is essential. LAB L501.1110 >60 mL/min Normal EST GFR 95 Result Comment: Non- GFR Calc LAB L501.1115 >60 mL/min Normal EST GFR - AA 115 Result Comment: GFR Calc LAB L501.1255 ml/min Normal Estimated CRCL 88.45 LAB L501.1300 10-20 RATIO High BUN/CRE 26.4 LAB L501.2200 8.5-10 mg/dL Low .1 CA 8.1 LAB L501.5300 136-14 mmol/L Normal 5 NA 138 LAB L501.5600 3.5-5. mmol/L High 1 K 5.2 LAB L501.5900 98-107 mmol/L Normal CL 102 LAB L501.6100 21.0-3 mmol/L Normal 2.0 CO2 28.0 LAB L501.6200 5-15 Normal GAP 8 Performed By: #### L500.2500 #### [facility] [address] [place], [address] TROPONIN-I Collected: 08/15/2018 Status: F Source: [place] 9:00 AM [facility] REPOSITORY Order Comment: 'TROP' Serial specimen #1, #2 or #3: 2 TYPE CODE TESTS RESULT OUT OF RANGE REFERENCE UNITS LAB L501.4010 <0.045 ng/mL Normal 0.038 TROPONIN-I Result Comment: TROPONIN-I EXPECTED VALUES <0.045 Negative 0.045 - 0.590 Consistent with Cardiac Damage > OR = 0.600 Critical Value Not every elevated troponin is indicative of MO. These values should be used with clinical judgement in examining the patient's clinical picture for diagnosis. To establish a diagnosis of MO versus myocardial injury, there must be a demonstrated rise and/or fall in the troponin values, in addition to ischemic symptoms, EKG changes, new regional wall motion abnormality, and/or angiographical evidence. PLEASE NOTE: REFERENCE RANGES EDITED 18 Performed By: #### L501.4010 #### [facility] [address] [place], [place], [address] TROPONIN-I Collected: 08/15/2018 Status: F Source: [place] 6:00 AM [facility] REPOSITORY Order Comment: 'TROP' Serial specimen #1, #2 or #3: 1 TYPE CODE TESTS RESULT OUT OF RANGE REFERENCE UNITS LAB L501.4010 <0.045 ng/mL Normal 0.045 TROPONIN-I Result Comment: TROPONIN-I EXPECTED VALUES <0.045 Negative 0.045 - 0.590 Consistent with Cardiac Damage > OR = 0.600 Critical Value Not every elevated troponin is indicative of MO. These values should be used with clinical judgement in examining the patient's clinical picture for diagnosis. To establish a diagnosis of MO versus myocardial injury, there must be a demonstrated rise and/or fall in the troponin values, in addition to ischemic symptoms, EKG changes, new regional wall motion abnormality, and/or angiographical evidence. PLEASE NOTE: REFERENCE RANGES EDITED 18 Performed By: #### L501.4010 #### [facility] [address] [place], [place], [address] HISTORY AND PHYSICAL Observed: 08/15/2018 Status: F Source: [place] EXAM 5:24 AM [facility] REPOSITORY [facility] Medical Records Department [address] [place] [address] History and Physical 08/15/18 0427 MR#: [id number] Acct: [id number] Name: ANTHONY VASQUEZ Rep #: [id number] : 1960 57 From: Marcus Mi MD PCP: JEREMIE Amanda Status: ADM IN Y Location: [place] [address] Problem List (1) COPD exacerbation Status: Acute Comment: Recent discharge 12/14/17 following treatment for acute on chronic systolic CHF exacerbation, acute COPD exacerbation with acute hypoxic respiratory failure and MRSA HCAP PNA. History of Present Illness Date of Admission: 08/15/18 Chief Complaint: shortness of breath The patient is a 57 year old M with a significant history of tobacco abuse; COPD with home oxygen use, ischemic cardiomyopathy, CAD status post stent; ICD who presents with progressively worsening shortness of breath that started two prior to presentation. Associated with his symptoms is wheezing and productive cough of thick yellow sputum; and wheezing. The emergency department patient was initially on CPAP and he was transitioned to nonrebreather mask and then to nasal cannula oxygen. He received Solu-Medrol and breathing treatments at the emergency department. Past Medical History Past Medical History (Chronic Problems): Chronic Problems (Last Updated 08/07/18 @ 09:53 by Julián Armenta DO) Non-ischemic cardiomyopathy (Chronic) ICD (implantable cardioverter-defibrillator) in place (Chronic) Iron deficiency anemia (Chronic) COPD (chronic obstructive pulmonary disease) (Chronic) Tobacco abuse (Chronic) Medical non-compliance (Chronic) Medical History: Medical History (Last Reviewed 08/15/18 @ 05:19 by Marcus Mi MD) Non-ischemic cardiomyopathy (Chronic) I42.8 Atherosclerosis of coronary artery of [place] heart without angina pectoris (Acute) I25.10 LEFT HEART ASSESSMENT Left Ventricular Ejection Fraction: by LV Gram 10-15 % Global Hypokinesis - Severe Depressed Left Ventricular systolic function Normal Left Ventricular End Diastolic Pressure LEFT MAIN: Non-obstructive LEFT ANTERIOR DECENDING ARTERY: Previously placed stent is patent DIAGONAL 1: Ostial - Mild luminal irregularities less than 30% DIAGONAL 2: Proximal - Non-obstructive CIRCUMFLEX ARTERY: MID CIRC: Previously placed stent is patent RIGHT CORONARY ARTERY: MID RCA: Previously placed stent has instent 20 % restenosis with a new at distal edge of stent COPD exacerbation (Acute) J44.1 Recent discharge 3/16/18 following treatment for acute on chronic systolic CHF exacerbation, acute COPD exacerbation with acute hypoxic respiratory failure and MRSA HCAP PNA. Acute respiratory failure with hypoxemia (Acute) J96.01 Iron deficiency anemia (Chronic) D50.9 NSVT (nonsustained ventricular tachycardia) (Acute) I47.2 COPD (chronic obstructive pulmonary disease) (Chronic) J44.9 Tobacco abuse (Chronic) Z72.0 Medical non-compliance (Chronic) Z91.19 Ischemic cardiomyopathy (Resolved) I25.5 Acute on chronic systolic (congestive) heart failure I50.23 Restless leg syndrome G25.81 Acute bronchitis (Resolved) J20.9 HCAP (healthcare-associated pneumonia) (Resolved) J18.9 Recent discharge 12/14/17 following treatment for acute on chronic systolic CHF exacerbation, acute COPD exacerbation with acute hypoxic respiratory failure and MRSA HCAP PNA. Hypotension (Resolved) I95.9 MRSA (methicillin resistant Staphylococcus aureus) infection (Resolved) A49.02 Recent discharge 12/14/17 following treatment for acute on chronic systolic CHF exacerbation, acute COPD exacerbation with acute hypoxic respiratory failure and MRSA HCAP PNA. Near syncope (Resolved) R55 Elevated troponin (Inactive) R74.8 Allergies No Known Allergies Allergy (Verified 07/28/18 20:01) Home Medications: Ambulatory Orders Medication Instructions Recorded Gabapentin [Neurontin] 600 mg PO DAILY #30 tab 12/14/17 Surgical History: Surgical History (Last Reviewed 08/15/18 @ 05:19 by Marcus Mi MD) ICD (implantable cardioverter-defibrillator) in place (Chronic) Z95.810 History of coronary artery stent placement (Resolved) Z95.5 PCI-RCA and CX History of coronary artery stent placement Z95.5 YER-[id number]-UIR and Cx History of left heart catheterization Onset Date: 12/14/17 Z98.890 CORONARY ANGIOGRAPHY DOMINANCE: Right Dominant LEFT HEART ASSESSMENT Left Ventricular Ejection Fraction: by LV Gram 10-15 % Global Hypokinesis - Severe Depressed Left Ventricular systolic function Normal Left Ventricular End Diastolic Pressure LEFT MAIN: Non-obstructive LEFT ANTERIOR DECENDING ARTERY: Previously placed stent is patent DIAGONAL 1: Ostial - Mild luminal irregularities less than 30% DIAGONAL 2: Proximal - Non-obstructive CIRCUMFLEX ARTERY: MID CIRC: Previously placed stent is patent RIGHT CORONARY ARTERY: MID RCA: Previously placed stent has instent 20 % restenosis with a new at distal edge of stent Surgical History: - - PCI x 10-11. Psychiatric History: No pertinent psych hx Smoking Status: Current every day smoker Alcohol: Occasional - *Family History Maternal Family History: Family History (Last Reviewed 08/15/18 @ 05:19 by Marcus Mi MD) Father CAD (coronary artery disease) Heart disease Mother CAD (coronary artery disease) Heart disease Aunt Cancer Brother Heart disease Hypertension History Items: Heart Disease Paternal Family History: Family History (Last Reviewed 08/15/18 @ 05:19 by Marcus Mi MD) Father CAD (coronary artery disease) Heart disease Mother CAD (coronary artery disease) Heart disease Aunt Cancer Brother Heart disease Hypertension History Items: Heart Disease Review of Systems Constitutional: Denies: Chills, Fever, Weight Change HEENT: Denies: Head Aches, Sinus Congestion, Sinus Drainage Cardiovascular: Denies: Chest Pain, Palpitations Respiratory: Reports: Cough, Shortness of Breath, Sputum production Gastrointestinal: Denies: Abdominal Pain, Nausea, Vomiting Genitourinary: Denies: Dysuria Musculoskeletal: Denies: Joint Pain, Joint Tenderness Skin: Denies: Rash, Wounds Neurological: Denies: Numbness, Tingling, Focal weakness Psychiatric: Denies: Anxiety, Depression, Homicidal Ideations, Suicidal Ideations Hematologic/ Lymphatic: Denies: Easy Bruising, Easy Bleeding VTE Information - Inpt Only VTE Present on Admission: No VTE Mechan Device Prophylaxis: None VTE Pharm Prophylaxis ordered?: Yes - Physical Exam General: Alert, Oriented x3, Cooperative HEENT: Atraumatic, PERRLA, EOMI, Normocephalic Neck: Supple, No JVD, Negative Carotid Bruits Lungs: Normal air movement, Rhonchi, Tachypneic, Using Accessory Muscles, - - Talking in short sentences because of shortness of breath. Cardiovascular: Regular rate, No murmurs Abdomen: Bowel Sounds Present, Soft, Non Tender Extremities: No edema, Capillary Refill Less than 3 Seconds Skin: No rashes, No breakdown Musculoskeletal: No Tenderness to Palpation of Joints or Extremities Neurological: Cranial nerves II-XII grossly intact Psych/Mental Status: Anxious Vital Signs Temp Pulse Resp BP Pulse Ox 98.4 F 100 11 L 155/99 H 100 08/15/18 01:59 08/15/18 03:10 08/15/18 03:10 08/15/18 03:10 08/15/18 03:10 Oxygen Flow Rate (L/min) 4 Oxygen Delivery Method Nasal Cannula Weight: 75.1 kg Body Mass Index (BMI) 25.2 Laboratory Tests Past 24 Hrs WBC 6.9 RBC 3.91 L Hgb 11.5 L Hct 36.2 L WBC RBC Hgb Hct MCV MCH Assessment/Plan All Active Problems (Last Updated 08/07/18 @ 09:53 by Julián Armenta DO) History of coronary artery stent placement (Resolved) Atherosclerosis of coronary artery of [place] heart without angina pectoris (Acute) COPD exacerbation (Acute) Acute respiratory failure with hypoxemia (Acute) NSVT (nonsustained ventricular tachycardia) (Acute) Ischemic cardiomyopathy (Resolved) Acute bronchitis (Resolved) HCAP (healthcare-associated pneumonia) (Resolved) Hypotension (Resolved) MRSA (methicillin resistant Staphylococcus aureus) infection (Resolved) Near syncope (Resolved) The patient is a 57 year old M with a significant history of tobacco abuse; COPD with home oxygen use, ischemic cardiomyopathy, CAD status post stent; ICD who presents with progressively worsening shortness of breath consistent with likely COPD patient. Acute COPD exacerbation Patient received Solu-Medrol 125 mg in the emergency department Solu-Medrol 40 mg every 8 hours ordered. DuoNeb scheduled Albuterol as needed Scheduled Mucinex. Azithromycin ordered. Incentive spirometer and chest physiotherapy ordered. Elevated troponin Likely due to demand ischemia from COPD exacerbation Trend troponin. Telemetry monitoring. Ischemic cardiomyopathy Noted to have elevated BNP of 1428.8. Chest x-ray does not show congestion. ICD in place Continue home Lasix with potassium. Dual antiplatelet therapy of aspirin and Plavix continued. Losartan; Imdur and carvedilol continued. Tobacco abuse Counselled. Refused nicotine patch. Inpatient consult smoking cessation. Hyponatremia Mild Likely due to diuretic use. Hypocalcemia Calcium of 8.0 Abnormal level ordered. DVT prophylaxis Subcutaneous Lovenox ordered. Code Visit Inpatient E AND M: 44303 Init Hosp L3 08/15/18 0524 <Electronically signed by Marcus Mi MD> Date Marcus Mi MD Cosigner Signature: Date (if applicable) CC: JEREMIE Oquendo; Marcus Mi MD Signed EMERGENCY DEPARTMENT Observed: 08/15/2018 Status: F Source: [place] SUMMARY 4:59 AM [facility] REPOSITORY [facility] Medical Records Department [address] [place] [address] Emergency Department Summary 08/15/18 0206 MR#: [id number] Acct: [id number] Name: ANTHONY VASQUEZ Rep #: [id number] : 1960 57 From: Lionel Kaur MD PCP: JEREMIE Amanda Status: REG ER - ER Visit Summary Date of Service: 08/15/18 Chief Complaint: Shortness of breath History of Present Illness: The patient is a 57 M with 2-3 hours of significant shortness of breath brought in by paramedics. No recent fever or chills. He has a cough which is chronic. He has COPD and continues to smoke. He has an extensive cardiac history. Physical Examination: Initially he is on a CPAP machine appears in respiratory distress but able to speak. Slightly dry mucous membranes, no obvious facial deformity No C-spine tenderness supple neck. Regular rate and rhythm without any obvious murmurs Patient has diminished breath sounds with wheezing, he has tachypneic able to speak in 3-4 word sentences. Abdomen soft and nontender no guarding or rebound Moves all extremities without any difficulty or pain. Skin does not show any obvious rashes or lesions, no trauma. Alert oriented 3 with no gross focal deficit Emergency Department Course and Treatment: Patient was given nebulizers, steroids. His x-rays unremarkable there is no evidence of pneumonia. He has a chronic cough which has not changed, thus I do not believe he meets criteria for antibiotics. He has a chronic troponin leak and his natruretic peptide was elevated, however this is chronic also. His lungs and his physical exam did not support fluid overload status. I will admit him to the hospital for COPD management. Disposition: Admit in guarded condition Impression: COPD exacerbation This note was generated with [employer] software. It may contain incorrect words, spelling, and punctuation that were not noted in review of the chart prior to signing ED Disposition - Plan for ED Patient: Chief Complaint: Shortness of Breath Referrals: Berna Oquendo, JEREMIE [Primary Care Provider] - What to do if you have Problems For any increased pain, shortness of breath, bleeding, nausea or vomiting, chest pain, or any unexpected problems, contact your Primary Care Provider. Call [facility] ([phone]) or report to the closest Emergency Room. Call 911 if necessary. 08/15/18 0459 <Electronically signed by Lionel Kaur MD> Date Lionel Kaur MD Cosigner Signature (If Indicated): Date CC: JEREMIE Oquendo BLOOD GASES BY CPS Collected: 08/15/2018 Status: F Source: [place] 2:26 AM [facility] REPOSITORY TYPE CODE TESTS RESULT OUT OF RANGE REFERENCE UNITS LAB L9000.9990 Normal BLD GAS TYPE ART LAB L9001.1000 Normal SITE R Radial LAB L9001.1010 Normal JORGE TEST POS LAB L9001.1050 O2 Normal Delivery Dev NRB Mask LAB L9001.1055 /min Normal LPM 12.0 LAB L9001.1104 Normal Results To ED LAB L9001.1105 Normal Time Given 218 LAB L9001.1110 7.35-7.45 pH Normal - I-STAT 7.44 LAB L9001.1210 35-45 mmHg Low pCO2 - ISTAT 32.2 LAB L9001.1310 75-100 mmHG High PO2 I-STAT 205 LAB L9001.2300 22-26 mmol/L Low HCO3 ISTAT 21.9 LAB L9001.2400 -2 to +2 mmol/L BE Normal ISTAT -2 LAB L9001.2415 mmol/L Normal TOTAL CO2 23 ISTAT LAB L9001.2425 95-99 % High SO2 ISTAT 100 Performed By: #### L9000.0800 #### [facility] Point of Care [address] [place] [address] CHEST 1 VIEW Observed: 08/15/2018 Status: F Source: [place] (PORTABLE) 2:07 AM [facility] Imaging Services [address] [place] [address] Chest 1 View (Portable) MR#: [id number] Acct: [id number] Name: ANTHONY VASQUEZ Rep #: [id number] : 1960 M 57 From: Trey Roman MD PCP: JEREMIE Amanda Status: REG ER Study: Chest 1 View (Portable) Date of Exam: 08/15/18 Exam# [id number] Ordering Dr: Lionel Kaur MD STUDY: X-RAY CHEST REASON FOR EXAM: Male, 57 years old. Increased shortness of breath. History of COPD. TECHNIQUE: 2 AP portable chest were obtained. COMPARISON: CTA chest 08/03/2018. FINDINGS: There is chronic interstitial prominence in the lungs, most prominent in the lung bases. There is no demonstrated acute pulmonary infiltrate. There is no demonstrated pleural abnormality. There is mild cardiac enlargement. There is a ventricular pacemaker. Normal mediastinum and alberto. Normal visualized pulmonary arteries. There is atherosclerotic calcification of the aortic arch with tortuosity. There are multilevel degenerative changes of the visualized thoracic spine. Normal visualized ribs, clavicles, and shoulders. There is no demonstrated abnormality of the visualized soft tissue structures of the upper abdomen. RAD/Chest 1 View (Portable) IMPRESSION: Chronic interstitial changes. Mild cardiomegaly. Pacemaker. No evidence for acute cardiopulmonary pathology. Electronically Signed: Trey Roman MD at 2:59 EST , Service support , CC: JEREMIE Oquendo; Lionel Kaur MD Entry Level Software Engineer: Signed BASIC METABOLIC Collected: 08/15/2018 Status: F Source: [place] PRO[place] (BMP) 2:04 AM [facility] REPOS[facility] TYPE CODE TESTS RESULT OUT OF RANGE REFERENCE UNITS LAB L501.0100 74-106 mg/dL Normal GLU 88 Result Comment: Please note revised GLUCOSE reference range effective 2017. LAB L501.1000 7-18 mg/dL Normal BUN 14 LAB L501.1100 0.70-1.30 mg/dL Normal CREAT,SERUM 0.83 Result Comment: The validity of the calculated GFR AND GFRAA in patients over 70 years has not been determined. Clinical correlation is essential. LAB L501.1110 >60 mL/min Normal EST GFR 100 Result Comment: Non- GFR Calc LAB L501.1115 >60 mL/min Normal EST GFR - AA 121 Result Comment: GFR Calc LAB L501.1255 ml/min Normal Estimated CRCL 92.71 LAB L501.1300 10-20 RATIO Normal BUN/CRE 16.8 LAB L501.2200 8.5-10 mg/dL Low .1 CA 8.0 LAB L501.5300 136-14 mmol/L Low 5 NA 130 LAB L501.5600 3.5-5. mmol/L Normal 1 K 4.7 Result Comment: Slight Hemolysis, Result may be falsely increased. LAB L501.5900 98-107 mmol/L Normal CL 98 LAB L501.6100 21.0-32.0 mmol/L Normal CO2 25.0 LAB L501.6200 5-15 Normal GAP 7 Performed By: #### L500.2500, L501.4010 #### [facility] [address] [place], [address] TROPONIN-I Collected: 08/15/2018 Status: F Source: [place] 2:04 AM [facility] TYPE CODE TESTS RESULT OUT OF RANGE REFERENCE UNITS LAB L501.4010 <0.045 ng/mL High 0.052 TROPONIN-I Result Comment: TROPONIN-I EXPECTED VALUES <0.045 Negative 0.045 - 0.590 Consistent with Cardiac Damage > OR = 0.600 Critical Value Not every elevated troponin is indicative of MO. These values should be used with clinical judgement in examining the patient's clinical picture for diagnosis. To establish a diagnosis of MO versus myocardial injury, there must be a demonstrated rise and/or fall in the troponin values, in addition to ischemic symptoms, EKG changes, new regional wall motion abnormality, and/or angiographical evidence. PLEASE NOTE: REFERENCE RANGES EDITED 18 Performed By: #### L500.2500, L501.4010 #### [facility] [address], [address] BNP,B-TYPE NATRIURETIC Collected: 08/15/2018 Status: F Source: [place] PEPT[place] 2:04 AM [facility] TYPE CODE TESTS RESULT OUT OF RANGE REFERENCE UNITS LAB L503.6620 0-100 pg/mL High B-TYPE 1428.8 HENRY PEP Performed By: #### L503.6620 #### [facility] [address] [place], [address] CBC W/DIFF, AUTOMATED Collected: 08/15/2018 Status: F Source: [place] 2:04 AM [facility] TYPE CODE TESTS RESULT OUT OF RANGE REFERENCE UNITS LAB L100.1000 4.4-11.0 K/mm3 Normal WBC 6.9 LAB L100.1200 4.6-6.2 M/mm3 Low RBC 3.91 LAB L100.1300 13.0-16.5 g/dl Low HGB 11.5 LAB L100.1400 40-54 % Low HCT 36.2 LAB L100.1500 80-94 fL Normal MCV 92.6 LAB L100.1600 27.0-32.0 pg Normal MCH 29.4 LAB L100.1700 32-36 g/gl Low MCHC 31.8 LAB L100.1810 11.6-14.6 % High RDW CV 14.7 LAB L100.1820 35.1-43.9 fl High RDW SD 49.1 LAB L100.1900 150-450 K/mm3 Normal PLT 196 LAB L100.2000 6.2-12.0 fl Normal MPV 9.3 LAB L100.2100 47-70 % High NEUT% 70.3 LAB L100.2200 19-41 % Normal LY% 19.0 LAB L100.2300 0-10 % Normal MONO% 8.5 LAB L100.2400 0-5 % Normal EO% 0.9 LAB L100.2500 0-1 % Normal BASO% 1.0 LAB L100.2550 0.0-0.9 % Normal IM GRAN % 0.300 Result Comment: IG% - Immature Granulocytes (promyelocytes, myelocytes and metamyelocytes) > 1% indicates that a LEFT SHIFT is Present. LAB L100.2620 2.0-7.7 X10 3/uL Normal Absolute Neut 4.9 LAB L100.2720 0.83-4.51 X10 3/ul Normal Absolute Lymph 1.31 Performed By: #### L100.0100 #### [facility] [address] [place], [address] ALBUMIN, SERUM Collected: 08/15/2018 Status: F Source: [place] 2:04 AM [facility] TYPE CODE TESTS RESULT OUT OF RANGE REFERENCE UNITS LAB L501.1800 3.2-5.0 g/dL Normal ALB 3.5 Performed By: #### L501.1800 #### [facility] [address] [place], [address] 12 LEAD ELECTROCARDIOGRAM Observed: 08/08/2018 Status: F Source: [place] 4:06 PM [facility] Cardiovascular Services [address] [place] [address] 12 Lead EKG 08/03/18 2134 MR#: [id number] Acct: [id number] Name: ANTHONY VASQUEZ Rep #: [id number] : 1960 57 From: Martin Covarrubias MD Attending Dr: Julián Armenta DO Status: DIS KEITH Ordering Dr: Marcus Mi MD Date: 08/03/18 Location: [facility] Sex: M C Admitted: 08/03/18 Test Reason : ADM EKG Blood Pressure : / mmHG Vent. Rate : 088 BPM Atrial Rate : 088 BPM P-R Int : 208 ms QRS Dur : 102 ms QT Int : 424 ms P-R-T Axes : 080 -44 121 degrees QTc Int : 513 ms Normal sinus rhythm Possible Left atrial enlargement Left axis deviation Septal infarct , age undetermined ST AND T wave abnormality, consider lateral ischemia Prolonged QT Abnormal ECG Confirmed by MARTIN COVARRUBIAS MD ([id number]), video effects editor HEIDE EDMONDS ([id number]) on 08/08/2018 4:06:38 PM Referred By: ARTEMIO Confirmed By:MARTIN COVARRUBIAS MD 08/08/18 1606 Date Martin Covarrubias MD CC: NEWSPAPER COLUMNIST-C Berna Oquendo; Marcus Mi MD; Julián Armenta DO Signed DISCHARGE SUMMARY Observed: 08/07/2018 Status: F Source: [place] 9:58 AM [facility] Medical Records Department [address] [place] [address] [place] [address] Discharge Summary 08/07/18 0947 MR#: [id number] Acct: [id number] Name: ANTHONY AVSQUEZ Raffi Rep #: [id number] : 1960 57 From: Julián Armenta DO PCP: JEREMIE Amanda Status: DIS KEITH Y Location: [place] [address] Discharge Date and Diagnosis Date of Admission: 08/03/18 Date of Discharge: 08/05/18 - Primary Discharge Diagnosis #1 acute exacerbation of COPD #2 nonischemic cardiomyopathy #3 hyponatremia-etiology unknown #4 pulmonary fibrosis #5 iron deficiency anemia - Secondary Discharge Diagnosis Chronic Problems (Last Reviewed 08/03/18 @ 21:34 by Marcus Mi MD) ICD (implantable cardioverter-defibrillator) in place (Chronic) Iron deficiency anemia (Chronic) COPD (chronic obstructive pulmonary disease) (Chronic) Tobacco abuse (Chronic) Medical non-compliance (Chronic) Ischemic cardiomyopathy (Chronic) Hospital Course and Treatment Operations: None Summary of Care Provided: The patient is a 57 year old M who was seen in the emergency room at [facility] with a chief complaint of shortness of breath along with precordial chest pain. Workup in the emergency room included labs which showed an elevated d-dimer, troponin was 0.036, sodium was low at 129, hemoglobin was 12.1. Patient had a CT of the chest which showed no PE but moderate to severe fibrotic COPD. Room air pulse ox was not obtained. Patient was placed into observation status on PCU for exacerbation of COPD, he was given IV Solu-Medrol and aerosol treatments, his oxygen was weaned off. Patient's sodium was monitored and was normal at the time of discharge. Troponins were cycled and remained negative. On 08/05/18, patient was seen and examined: On examination he appeared in good health and spirits. Vital signs as documented. Skin warm and dry and without overt rashes. Neck without JVD. Lungs-breath sounds are distant bilaterally, no rales rhonchi or wheezes. Heart exam notable for regular rhythm, normal sounds and absence of murmurs, rubs or gallops. Abdomen unremarkable and without evidence of organomegaly, masses, or abdominal aortic enlargement. Extremities nonedematous. Patient was felt to be in stable condition for discharge home. - Physical Exam Vital Signs Temp Pulse Resp BP Pulse Ox 97.9 F 98 18 148/67 H 98 08/05/18 08:25 08/05/18 08:25 08/05/18 08:25 08/05/18 08:25 08/05/18 08:25 Oxygen Flow Rate (L/min) 2 Oxygen Delivery Method Nasal Cannula Weight: 67.4 kg Body Mass Index (BMI) 22.6 Intake and Output for Last 24 Hours Intake Total 1201 / 1201 Balance 1201 / 1201 Discharge Activity: Return to Normal Activity Weight Bearing Status: Full weight bearing Home Medications: Medications to take at Discharge Gabapentin [Neurontin] 600 mg PO DAILY #30 tab 12/14/17 Nitroglycerin [Nitrostat] 0.4 mg SUBLINGUAL Q5M PRN #1 bottle 12/14/17 aspirin 81 mg chewable tablet 81 mg PO DAILY@0800 #30 tab.chew 01/11/18 atorvastatin 80 mg tablet 80 mg PO QHS #30 tab 01/11/18 carvedilol 6.25 mg tablet 6.25 mg PO BID #60 tab 01/11/18 clopidogrel 75 mg tablet 75 mg PO DAILY #30 tab 01/11/18 furosemide 40 mg tablet 40 mg PO DAILY #30 tab 01/11/18 isosorbide mononitrate ER 30 mg tablet,extended release 24 hr 30 mg PO DAILY #30 tab 01/11/18 losartan 25 mg tablet 25 mg PO DAILY #30 tab 01/11/18 potassium chloride ER 20 mEq tablet,extended release(part/cryst) 20 meq PO DAILY #30 tab 01/11/18 ferrous gluconate 324 mg (37.5 mg iron) tablet 325 mg PO BIDCM #60 tab 01/15/18 Acetaminophen [Tylenol Tablet] 650 mg PO Q6H PRN PRN tablet 08/05/18 Albuterol Sulfate [Ventolin Hfa] 18 gm IH [id number] PRN #1 hfa.aer.ad 08/05/18 Azithromycin [Zithromax] 250 mg PO DAILY #14 tablet 08/05/18 Prednisone 10 mg PO UD #30 tab 08/05/18 Following Prescrptions Were Given to Patient: Azithromycin [Zithromax] 250 mg PO DAILY #14 tablet Prednisone 10 mg PO UD #30 tab Albuterol Sulfate [Ventolin Hfa] 18 gm IH [id number] PRN #1 hfa.aer.ad PRN Reason: Sob AND /Or Wheezing Primary Care Physician: Berna Oquendo NP-C [Primary Care Provider] - Please follow up with your Primary Care Physician in: IN ONE WEEK Please Follow Up With: Berna Oquendo NP-C Disposition: Home Minutes spent on discharge:: 28 Patient Condition:: Stable Medical Necessity - Tobacco Use Smoking Status: Current every day smoker Tobacco Use: Cigarettes Meaningful Use Info Meaningful Use Diagnoses (Choose all that apply): None applicable Code Visit OBSV E AND M: 43877 Observation care discharge 08/07/18 0958 <Electronically signed by Julián Armenta DO> Date Julián Armenta DO Cosigner Signature (if applicable): Date CC: JEREMIE Armenta DO Signed 12 LEAD ELECTROCARDIOGRAM Observed: 08/05/2018 Status: F Source: [place] 3:44 PM [facility] Cardiovascular Services [address] [place] [address] 12 Lead EKG 08/03/18 1657 MR#: [id number] Acct: [id number] Name: ANTHONY VASQUEZ Rep #: [id number] : 1960 57 From: Martin Covarrubias MD Attending Dr: Julián Armenta DO Status: DIS KEITH Ordering Dr: Dana Stewart MD Date: 08/03/18 Location: [facility] Sex: M C Admitted: 08/03/18 Test Reason : CP Blood Pressure : / mmHG Vent. Rate : 102 BPM Atrial Rate : 102 BPM P-R Int : 208 ms QRS Dur : 098 ms QT Int : 368 ms P-R-T Axes : 077 -47 135 degrees QTc Int : 479 ms Sinus tachycardia Possible Left atrial enlargement Left axis deviation Septal infarct , age undetermined ST AND T wave abnormality, consider lateral ischemia Abnormal ECG Confirmed by MARCI BARLOW, MARTIN ([id number]), video effects editor HEIDE EDMONDS ([id number]) on 08/05/2018 3:43:42 PM Referred By: VASILE Confirmed By:MARTIN COVARRUBIAS MD 08/05/18 1543 Date Martin Covarrubias MD CC: JEREMIE Oquendo; Dana Stewart MD; Julián Armenta DO Signed DISCHARGE INSTRUCTION Observed: 08/05/2018 Status: F Source: [place] 9:24 AM [facility] Medical Records Department [address] [place] [address] Instructions for Home/Discharge Instructions 08/05/18 09 MR#: [id number] Acct: [id number] Name: ANTHONY VASQUEZ Rep #: [id number] : 1960 57 From: Julián Armenta DO PCP: JEREMIE Amanda Status: ADM KEITH You will use the following diet at home:: No restrictions Your food should be the consistency of: Regular Your liquids should be the consistency of: Regular/Thin Discharge Activity: Return to Normal Activity Weight Bearing Status: Full weight bearing Additional Instructions: DO NOT SMOKE Allergies/Adverse Reactions: Allergies No Known Allergies Allergy (Verified 07/28/18 20:01) Medications to take at Discharge Gabapentin [Neurontin] 600 mg PO DAILY #30 tab 12/14/17 Nitroglycerin [Nitrostat] 0.4 mg SUBLINGUAL Q5M PRN #1 bottle 12/14/17 aspirin 81 mg chewable tablet 81 mg PO DAILY@0800 #30 tab.chew 01/11/18 atorvastatin 80 mg tablet 80 mg PO QHS #30 tab 01/11/18 carvedilol 6.25 mg tablet 6.25 mg PO BID #60 tab 01/11/18 clopidogrel 75 mg tablet 75 mg PO DAILY #30 tab 01/11/18 furosemide 40 mg tablet 40 mg PO DAILY #30 tab 01/11/18 isosorbide mononitrate ER 30 mg tablet,extended release 24 hr 30 mg PO DAILY #30 tab 01/11/18 losartan 25 mg tablet 25 mg PO DAILY #30 tab 01/11/18 potassium chloride ER 20 mEq tablet,extended release(part/cryst) 20 meq PO DAILY #30 tab 01/11/18 ferrous gluconate 324 mg (37.5 mg iron) tablet 325 mg PO BIDCM #60 tab 01/15/18 Acetaminophen [Tylenol Tablet] 650 mg PO Q6H PRN PRN tablet 08/05/18 Albuterol Sulfate [Ventolin Hfa] 18 gm IH [id number] PRN #1 hfa.aer.ad 08/05/18 Azithromycin [Zithromax] 250 mg PO DAILY #14 tablet 08/05/18 Prednisone 10 mg PO UD #30 tab 08/05/18 The following prescriptions were given: Azithromycin [Zithromax] 250 mg PO DAILY #14 tablet Prednisone 10 mg PO UD #30 tab Albuterol Sulfate [Ventolin Hfa] 18 gm IH [id number] PRN #1 hfa.aer.ad PRN Reason: Sob AND /Or Wheezing Primary Care Physician: Berna Oquendo NP-C [Primary Care Provider] - Please follow up with your Primary Care Physician in: IN ONE WEEK Test Results: Test results from this visit will be discussed in further detail at your follow-up appointment, if applicable. 08/05/18 0924 <Electronically signed by Julián Armenta DO> Date Julián Armenta DO CC: NEWSPAPER COLUMNIST-C Berna Oquendo BASIC METABOLIC Collected: 08/05/2018 Status: F Source: [place] PROFILE ([facility]) 5:40 AM [facility] REPOSIT[facility] TYPE CODE TESTS RESULT OUT OF RANGE REFERENCE UNITS LAB L501.0100 74-106 mg/dL High GLU 199 Result Comment: Fasting Glucose result greater than or equal to 126 mg/dL suggests DIABETES MELLITUS per A.D.A. criteria. Please note revised GLUCOSE reference range effective 2017. LAB L501.1000 7-18 mg/dL Normal BUN 18 LAB L501.1100 0.70-1.30 mg/dL Normal CREAT,SERUM 0.72 Result Comment: The validity of the calculated GFR AND GFRAA in patients over 70 years has not been determined. Clinical correlation is essential. LAB L501.1110 >60 mL/min Normal EST GFR 118 Result Comment: Non- GFR Calc LAB L501.1115 >60 mL/min Normal EST GFR - AA 142 Result Comment: GFR Calc LAB L501.1255 ml/min Normal Estimated CRCL 105.31 LAB L501.1300 10-20 RATIO High BUN/CRE 24.8 LAB L501.2200 8.5-10 mg/dL Low .1 CA 8.0 LAB L501.5300 136-14 mmol/L 5 NA Normal 137 LAB L501.5600 3.5-5. mmol/L 1 K Normal 4.2 LAB L501.5900 98-107 mmol/L CL Normal 103 LAB L501.6100 21.0-3 mmol/L 2.0 CO2 Normal 26.0 LAB L501.6200 5-15 GAP Normal 8 Performed By: #### L500.2500 #### [facility] [address] [place], [place], [id number] CBC W/DIFF, AUTOMATED Collected: 08/05/2018 Status: F Source: [place] 5:40 AM [facility] REPOS[facility] TYPE CODE TESTS RESULT OUT OF RANGE REFERENCE UNITS LAB L100.1000 4.4-11.0 K/mm3 High WBC 14.3 LAB L100.1200 4.6-6.2 M/mm3 Low RBC 3.53 LAB L100.1300 13.0-16.5 g/dl Low HGB 10.5 LAB L100.1400 40-54 % Low HCT 32.7 LAB L100.1500 80-94 fL Normal MCV 92.6 LAB L100.1600 27.0-32.0 pg Normal MCH 29.7 LAB L100.1700 32-36 g/gl Normal MCHC 32.1 LAB L100.1810 11.6-14.6 % High RDW CV 14.9 LAB L100.1820 35.1-43.9 fl High RDW SD 49.9 LAB L100.1900 150-450 K/mm3 Normal PLT 251 LAB L100.2000 6.2-12.0 fl Normal MPV 9.0 LAB L100.2100 47-70 % High NEUT% 93.1 LAB L100.2200 19-41 % Low LY% 4.1 LAB L100.2300 0-10 % Normal MONO% 2.7 LAB L100.2400 0-5 % Normal EO% 0.0 LAB L100.2500 0-1 % Normal BASO% 0.0 LAB L100.2550 0.0-0.9 % Normal IM GRAN % 0.100 Result Comment: IG% - Immature Granulocytes (promyelocytes, myelocytes and metamyelocytes) > 1% indicates that a LEFT SHIFT is Present. LAB L100.2620 2.0-7.7 X10 3/uL High Absolute Neut 13.3 LAB L100.2720 0.83-4.51 X10 3/ul Low Absolute Lymph 0.58 LAB L100.4500 Normal SMEAR COMMENT SCANNED Result Comment: LYMPHOPENIA NOTED Performed By: #### L100.0100 #### [facility] [address] [place], [address] TROPONIN-I Collected: 08/04/2018 Status: F Source: [place] 2:46 AM [facility] REPOSITORY Order Comment: 'TROP' Serial specimen #1, #2 or #3: 3 TYPE CODE TESTS RESULT OUT OF RANGE REFERENCE UNITS LAB L501.4010 <0.045 ng/mL Normal 0.022 TROPONIN-I Result Comment: TROPONIN-I EXPECTED VALUES <0.045 Negative 0.045 - 0.590 Consistent with Cardiac Damage > OR = 0.600 Critical Value Not every elevated troponin is indicative of MO. These values should be used with clinical judgement in examining the patient's clinical picture for diagnosis. To establish a diagnosis of MO versus myocardial injury, there must be a demonstrated rise and/or fall in the troponin values, in addition to ischemic symptoms, EKG changes, new regional wall motion abnormality, and/or angiographical evidence. PLEASE NOTE: REFERENCE RANGES EDITED 18 Performed By: #### L501.4010 #### [facility] [place], [address] CBC W/DIFF, AUTOMATED Collected: 08/04/2018 Status: F Source: [place] 2:46 AM [facility] REPOS[facility] TYPE CODE TESTS RESULT OUT OF RANGE REFERENCE UNITS LAB L100.1000 4.4-11.0 K/mm3 Normal WBC 10.4 LAB L100.1200 4.6-6.2 M/mm3 Low RBC 4.15 LAB L100.1300 13.0-16.5 g/dl Low HGB 12.6 LAB L100.1400 40-54 % Low HCT 37.7 LAB L100.1500 80-94 fL Normal MCV 90.8 LAB L100.1600 27.0-32.0 pg Normal MCH 30.4 LAB L100.1700 32-36 g/gl Normal MCHC 33.4 LAB L100.1810 11.6-14.6 % Normal RDW CV 14.6 LAB L100.1820 35.1-43.9 fl High RDW SD 47.1 LAB L100.1900 150-450 K/mm3 Normal PLT 275 LAB L100.2000 6.2-12.0 fl Normal MPV 9.1 LAB L100.2100 47-70 % High NEUT% 95.3 LAB L100.2200 19-41 % Low LY% 3.3 LAB L100.2300 0-10 % Normal MONO% 1.1 LAB L100.2400 0-5 % Normal EO% 0.0 LAB L100.2500 0-1 % Normal BASO% 0.1 LAB L100.2550 0.0-0.9 % Normal IM GRAN % 0.200 Result Comment: IG% - Immature Granulocytes (promyelocytes, myelocytes and metamyelocytes) > 1% indicates that a LEFT SHIFT is Present. LAB L100.2620 2.0-7.7 X10 3/uL High Absolute Neut 9.9 LAB L100.2720 0.83-4.51 X10 3/ul Low Absolute Lymph 0.34 Performed By: #### L100.0100 #### [facility] [address] [place], [address] BASIC METABOLIC Collected: 08/04/2018 Status: F Source: [place] PROFILE (BMP) 2:46 AM [facility] REPOS[facility] TYPE CODE TESTS RESULT OUT OF RANGE REFERENCE UNITS LAB L501.0100 74-106 mg/dL High GLU 145 Result Comment: Fasting Glucose result greater than or equal to 126 mg/dL suggests DIABETES MELLITUS per A.D.A. criteria. Please note revised GLUCOSE reference range effective 2017. LAB L501.1000 7-18 mg/dL Normal BUN 14 LAB L501.1100 0.70-1.30 mg/dL Normal CREAT,SERUM 0.81 Result Comment: The validity of the calculated GFR AND GFRAA in patients over 70 years has not been determined. Clinical correlation is essential. LAB L501.1110 >60 mL/min Normal EST GFR 104 Result Comment: Non- GFR Calc LAB L501.1115 >60 mL/min Normal EST GFR - AA 126 Result Comment: GFR Calc LAB L501.1255 ml/min Normal Estimated CRCL 93.61 LAB L501.1300 10-20 RATIO Normal BUN/CRE 17.4 LAB L501.2200 8.5-10 mg/dL Normal .1 CA 8.5 LAB L501.5300 136-14 mmol/L Low 5 NA 135 LAB L501.5600 3.5-5. mmol/L Normal 1 K 4.4 LAB L501.5900 98-107 mmol/L Normal CL 101 LAB L501.6100 21.0-3 mmol/L Normal 2.0 CO2 27.0 LAB L501.6200 5-15 Normal GAP 7 Performed By: #### L500.2500 #### [facility] [address] [place], [address] HISTORY AND PHYSICAL Observed: 08/03/2018 Status: F Source: [place] EXAM 9:50 PM [facility] RE[facility]IT[facility] Medical Records Department [address] [place] [address] History and Physical 08/03/182024 MR#: [id number] Acct: [id number] Name: ANTHONY VASQUEZ Rep #: [id number] : 1960 57 From: Marcus Mi MD PCP: JEREMIE Amanda Status: ADM KEITH Y Location: [place] [address] Problem List (1) COPD exacerbation Status: Acute Comment: Recent discharge 12/14/17 following treatment for acute on chronic systolic CHF exacerbation, acute COPD exacerbation with acute hypoxic respiratory failure and MRSA HCAP PNA. History of Present Illness Date of Admission: 08/03/18 Chief Complaint: Shortness of breath The patient is a 57 year old M with a significant history of tobacco abuse; COPD, ischemic cardiomyopathy, CAD status post stent; ICD who presents with progressively worsening shortness of breath that started a day before his admission. His shortness of breath occurs at rest and it increases with exertion. Associated with his symptoms is wheezing and productive cough of thick yellow sputum. Patient reports that he is supposed to use continuous home oxygen at 3 L but he intermittently does that. He also complains of constant mild to moderate chest pain that started 2 days ago but was it severe a day before his admission. His chest pain is substernal. At the time of evaluation patient complained that his chest pain was radiating to his left side where his pacemaker is. He described his chest pain as sharp. He reported that he felt numbness on the right side of his body yesterday which made him unable to walk. His chest pain increases with exertion and there is no alleviating factors. He reports drinking about 6 packs daily. He reports that recently he split with his . Past Medical History Past Medical History (Chronic Problems): Chronic Problems (Last Reviewed 08/03/18 @ 21:34 by Marcus Mi MD) ICD (implantable cardioverter-defibrillator) in place (Chronic) Iron deficiency anemia (Chronic) COPD (chronic obstructive pulmonary disease) (Chronic) Tobacco abuse (Chronic) Medical non-compliance (Chronic) Ischemic cardiomyopathy (Chronic) Medical History: Medical History (Last Reviewed 08/03/18 @ 21:34 by Marcus Mi MD) Atherosclerosis of coronary artery of [place] heart without angina pectoris (Acute) I25.10 LEFT HEART ASSESSMENT Left Ventricular Ejection Fraction: by LV Gram 10-15 % Global Hypokinesis - Severe Depressed Left Ventricular systolic function Normal Left Ventricular End Diastolic Pressure LEFT MAIN: Non-obstructive LEFT ANTERIOR DECENDING ARTERY: Previously placed stent is patent DIAGONAL 1: Ostial - Mild luminal irregularities less than 30% DIAGONAL 2: Proximal - Non-obstructive CIRCUMFLEX ARTERY: MID CIRC: Previously placed stent is patent RIGHT CORONARY ARTERY: MID RCA: Previously placed stent has instent 20 % restenosis with a new at distal edge of stent COPD exacerbation (Acute) J44.1 Recent discharge 12/14/17 following treatment for acute on chronic systolic CHF exacerbation, acute COPD exacerbation with acute hypoxic respiratory failure and MRSA HCAP PNA. Acute respiratory failure with hypoxemia (Acute) J96.01 Iron deficiency anemia (Chronic) D50.9 NSVT (nonsustained ventricular tachycardia) (Acute) I47.2 COPD (chronic obstructive pulmonary disease) (Chronic) J44.9 Tobacco abuse (Chronic) Z72.0 Medical non-compliance (Chronic) Z91.19 Ischemic cardiomyopathy (Chronic) I25.5 Acute on chronic systolic (congestive) heart failure I50.23 Restless leg syndrome G25.81 Acute bronchitis (Resolved) J20.9 HCAP (healthcare-associated pneumonia) (Resolved) J18.9 Recent discharge 12/14/17 following treatment for acute on chronic systolic CHF exacerbation, acute COPD exacerbation with acute hypoxic respiratory failure and MRSA HCAP PNA. Hypotension (Resolved) I95.9 MRSA (methicillin resistant Staphylococcus aureus) infection (Resolved) A49.02 Recent discharge 12/14/17 following treatment for acute on chronic systolic CHF exacerbation, acute COPD exacerbation with acute hypoxic respiratory failure and MRSA HCAP PNA. Near syncope (Resolved) R55 Elevated troponin (Inactive) R74.8 Allergies No Known Allergies Allergy (Verified 07/28/18 20:01) Home Medications: Ambulatory Orders Medication Instructions Recorded Albuterol Aerosols [Ventolin 2.5 mg INHALATION Q2H PRN PRN #30 09/26/16 Surgical History: Surgical History (Last Reviewed 08/03/18 @ 21:34 by Marcus Mi MD) ICD (implantable cardioverter-defibrillator) in place (Chronic) Z95.810 History of coronary artery stent placement (Resolved) Z95.5 PCI-RCA and CX History of coronary artery stent placement Z95.5 XRT-Yognj-RAC and Cx History of left heart catheterization Onset Date: 12/14/17 Z98.890 CORONARY ANGIOGRAPHY DOMINANCE: Right Dominant LEFT HEART ASSESSMENT Left Ventricular Ejection Fraction: by LV Gram 10-15 % Global Hypokinesis - Severe Depressed Left Ventricular systolic function Normal Left Ventricular End Diastolic Pressure LEFT MAIN: Non-obstructive LEFT ANTERIOR DECENDING ARTERY: Previously placed stent is patent DIAGONAL 1: Ostial - Mild luminal irregularities less than 30% DIAGONAL 2: Proximal - Non-obstructive CIRCUMFLEX ARTERY: MID CIRC: Previously placed stent is patent RIGHT CORONARY ARTERY: MID RCA: Previously placed stent has instent 20 % restenosis with a new at distal edge of stent Surgical History: - - PCI x 10-11. Psychiatric History: No pertinent psych hx Lives: Alone Smoking Status: Current every day smoker Tobacco Use: Cigarettes Alcohol: Heavy - *Family History Maternal Family History: Family History (Last Reviewed 08/03/18 @ 21:34 by Marcus Mi MD) Father CAD (coronary artery disease) Heart disease Mother CAD (coronary artery disease) Heart disease Aunt Cancer Brother Heart disease Hypertension History Items: Heart Disease Paternal Family History: Family History (Last Reviewed 08/03/18 @ 21:34 by Marcus Mi MD) Father CAD (coronary artery disease) Heart disease Mother CAD (coronary artery disease) Heart disease Aunt Cancer Brother Heart disease Hypertension History Items: Heart Disease Review of Systems Constitutional: Denies: Chills, Fever, Weight Change HEENT: Denies: Head Aches, Sinus Congestion, Sinus Drainage Cardiovascular: Reports: Chest Pain. Denies: Palpitations Respiratory: Reports: Cough, Shortness of breath at rest, Shortness of breath upon exertion, Sputum production Gastrointestinal: Denies: Abdominal Pain, Nausea, Vomiting Genitourinary: Denies: Dysuria Musculoskeletal: Reports: Leg Pain - Right leg. Denies: Joint Pain, Joint Tenderness Skin: Denies: Rash, Wounds Neurological: Denies: Numbness, Tingling, Focal weakness Psychiatric: Denies: Anxiety, Depression, Homicidal Ideations, Suicidal Ideations Hematologic/ Lymphatic: Denies: Easy Bruising, Easy Bleeding VTE Information - Inpt Only VTE Present on Admission: No VTE Mechan Device Prophylaxis: None VTE Pharm Prophylaxis ordered?: Yes - Physical Exam General: Alert, Oriented x3, Cooperative HEENT: Atraumatic, PERRLA, EOMI, Normocephalic Neck: Supple, No JVD, Negative Carotid Bruits Lungs: Diminished, Tachypneic, Using Accessory Muscles, - - Coughing profusely on examination. Cardiovascular: Regular rate Abdomen: Bowel Sounds Present, Soft, Non Tender Extremities: No edema, Capillary Refill Less than 3 Seconds, Tenderness - Right leg Skin: No rashes, No breakdown Musculoskeletal: No Muscle Wasting Neurological: Cranial nerves II-XII grossly intact Psych/Mental Status: Normal Affect, Appropriate Vital Signs Temp Pulse Resp BP Pulse Ox 98.2 F 89 16 123/80 H 99 08/03/18 16:56 08/03/18 20:12 08/03/18 20:12 08/03/18 20:12 08/03/18 20:12 Oxygen Flow Rate (L/min) 2 Oxygen Delivery Method Nasal Cannula Weight: 73.5 kg Body Mass Index (BMI) 24.6 Laboratory Tests Past 24 Hrs Assessment/Plan All Active Problems (Last Reviewed 08/03/18 @ 21:34 by Marcus Mi MD) History of coronary artery stent placement (Resolved) Atherosclerosis of coronary artery of [place] heart without angina pectoris (Acute) COPD exacerbation (Acute) Acute respiratory failure with hypoxemia (Acute) NSVT (nonsustained ventricular tachycardia) (Acute) Acute bronchitis (Resolved) HCAP (healthcare-associated pneumonia) (Resolved) Hypotension (Resolved) MRSA (methicillin resistant Staphylococcus aureus) infection (Resolved) Near syncope (Resolved) The patient is a 57 year old M with a significant history of tobacco abuse; alcoholic abuse; moderate to severe COPD; ischemic cardiomyopathy status post ICD, CAD status post stent; ICD who presents with progressively worsening shortness of breath; and chest pain consistent with likely COPD exacerbation. Acute COPD exacerbation Received Solumedrol 125mg at ED. Solu-Medrol 40mg IV every 8 hours. Receive DuoNeb at emergency department; scheduled DuoNeb. As needed albuterol. Mucinex ordered. Incentive spirometer and chest physiotherapy. Oxygen as needed Azithromycin ordered. Counseled to quit smoking. Chest pain Review of old records showed that on 12/14/2017 patient had a cardiac catheterization with Dr. Tirado. The cardiac catheterization showed severe depressed left ventricular systolic function; and nonobstructive coronary arteries. At that time recommendation was stress/myocardial perfusion imaging in 2 weeks to evaluate inferior wall; and if inferior ischemia presents the plan was to bring patient back for PCI of RCA. And if negative patient will proceed with ICD. On 12/25/2017 patient had a stress test. . Stress test showed that patient had dilated left ventricle with ejection fraction 24% with segmental wall motion abnormalities involving the anterior apex. . The stress test conclusion was :cardiomyopathy Patient received ICD on 01/10/2018. Admit to a monitored bed on PCU CXR independently reviewed confirms confirms stable cardiomegaly with hyperinflation of lungs EKG independently reviewed confirms T wave inversions in lead V1, V2, V4, V5 and V6; but this was unchanged from EKG in July 2018. Received aspirin 324 mg at emergency department. Dual antiplatelet therapy of aspirin 81 mg daily and Plavix was continued. SL NTG 0.4 mg prn as needed for chest pain Troponin at emergency department was negative. We will cycle troponins. Stat EKG as needed for chest pain No stress test to at this time. His chest pain could be due to his COPD exacerbation. If concerns exist recommend to discuss with cardiology. We will continue Lipitor; Imdur; losartan and carvedilol. Alcohol abuse Patient placed on stroke protocol with thiamine, folic acid and multivitamins. Ativan as needed Noted to have hyponatremia that may be due to beer griselda Counseled. Hyponatremia Sodium on admission was 129L. Likely due to beer potomania Counseled to quit drinking. Trend BMP Hypochloremia Chloride on admission was 94L See hyponatremia above. Tobacco abuse Counselled. Refused nicotine patch. Inpatient consult smoking cessation. Right leg pain. Patient complained of left leg pain. He had elevated d-dimer with a CTA unremarkable for PE. Duplex ultrasound of legs ordered to rule out DVT. Ischemic cardiomyopathy ICD in place Continue Lasix with potassium. losartan and carvedilol continued. Miscellaneous: Case management for placement after discharge. DVT prophylaxis Subcutaneous Lovenox ordered. Code Visit OBSV E AND M: 23724 Initial observation care L3 08/03/18 6944 <Electronically signed by Marcus Mi MD> Date Marcus Mi MD Cosigner Signature: Date (if applicable) CC: NEWSPAPER COLUMNIST-C Berna Oquendo; Marcus Mi MD Signed ALCOHOL, BLOOD Collected: 08/03/2018 Status: F Source: [place] (MEDICAL)-SERUM 9:30 PM [facility] REPOSITORY TYPE CODE TESTS RESULT OUT OF RANGE REFERENCE UNITS LAB L501.9100 mg/dL Normal SERUM < 3.0 ETOH Result Comment: The serum:whole blood ethanol ratio is approximately 1.14 and varies slightly with hematocrit. Medical Alcohol reference interval and critical value in non-tolerant individuals; 50 - 100 Impairment 100 Intoxication 100 - 250 Severe Poisoning 250 - 400 Deep/possible fatal coma Performed By: #### L501.9100 #### [facility] [address] [place], [address] EMERGENCY DEPARTMENT Observed: 08/03/2018 Status: F Source: [place] SUMMARY 8:42 PM [facility] REPOSITORY [facility] Medical Records Department [address] [place] [address] Emergency Department Summary 08/03/18 1721 MR#: [id number] Acct: [id number] Name: ANTHONY VASQUEZ Rep #: [id number] : 1960 57 From: Dana Stewart MD PCP: JEREMIE Amanda Status: REG ER - ER Visit Summary Date of Service: 08/03/18 Chief Complaint: Shortness of breath, chest pain History of Present Illness: The patient is a 57 M presenting with shortness of breath, chest pain. He states he has been short of breath for a few hours. Chest pain started just prior to arrival. He has had a productive cough. He has a history of COPD, cardiomyopathy, ICD. He is not on home O2. He is a smoker. Physical Examination: Vitals are stable. Patient is afebrile. Alert no acute distress. HEENT exam is unremarkable. Neck is supple. Lungs are diminished bilaterally. Heart is regular and tachycardic. Abdomen is soft nontender nondistended. Extremities are unremarkable. Skin is warm and dry. No focal neurologic deficit. Remainder of exam is unremarkable. Emergency Department Course and Treatment: Patient was given aspirin on arrival. He is given morphine, Zofran IV. He was given albuterol, Atrovent aerosols. EKG is sinus rate of [address] depression and T wave inversion, unchanged from previous. CBC shows white count 13.0, hemoglobin 12.1. Chemistry shows sodium 129. Troponin 0.036. D-dimer is 0.73. Chest x-ray shows cardiomegaly, no acute process. CTA chest shows no PE, moderate to severe COPD. Patient continues to complain of difficulty breathing. He was given Solu-Medrol IV. He states he feels lightheaded and was near syncopal with standing. Will discuss with the hospitalist. Disposition: Observation Impression: COPD exacerbation, chest pain This note was generated with Sentrinsic dictation software. It may contain incorrect words, spelling, and punctuation that were not noted in review of the chart prior to signing ED Disposition - Plan for ED Patient: Chief Complaint: Chest Pain Referrals: Berna Oquendo, DANA-Seferino [Primary Care Provider] - What to do if you have Problems For any increased pain, shortness of breath, bleeding, nausea or vomiting, chest pain, or any unexpected problems, contact your Primary Care Provider. Call [facility] ([phone]) or report to the closest Emergency Room. Call 911 if necessary. 08/03/182041 <Electronically signed by Dana Stewart MD> Date Dana Stewart MD Cosigner Signature (If Indicated): Date CC: JEREMIE Oquendo CTA CHEST W/WO Observed: 08/03/2018 Status: F Source: JI CONTRAST 5:56 PM [facility] REPOSITORY [facility] Imaging Services [address] [place] [address] CTA Chest W/WO Contrast MR#: [id number] Acct: [id number] Name: ANTHONY VASQUEZ Rep #: [id number] : 1960 M 57 From: Osmar Reardon MD PCP: JEREMIE Amanda Status: REG ER Study: CTA Chest W/WO Contrast Date of Exam: 08/03/18 Exam# [id number] Ordering Dr: Dana Stewart MD STUDY: CTA CHEST REASON FOR EXAM: Male, 57 years old. Short of breath and chest pain. Elevated d-dimer. RADIATION DOSAGE (If Supplied By Facility): CTDIvol = ( 8.23 ) mGy, DLP = ( 231.23 ) mGycm TECHNIQUE: The examination was performed with the intravenous administration of 100ML ml of Isovue 370 contrast material. Post-processing of the angiographic images was performed, with multiplanar reformation and 3D reconstruction. Individualized dose optimization techniques were used for this CT. COMPARISON: None. FINDINGS: Normal enhancement of the main pulmonary artery and right and left pulmonary arteries. Normal enhancement of the bilateral peripheral pulmonary arteries. There is no demonstrated pulmonary embolism. There is atherosclerotic calcification of the aortic arch with tortuosity. There is no demonstrated aortic dissection. There is mild cardiomegaly. There are calcifications of the coronary arteries. Normal mediastinum. Normal hilar regions. Normal visualized trachea and bronchi. The lungs are hyper expanded, with flattening of the hemidiaphragms. There are moderately increased diffuse interstitial parenchymal markings. Findings especially prominent in the lower lung crews. No focal infiltrates. Normal pleura. There are no pleural effusions. Normal chest wall structures. Normal osseous structures. Normal visualized upper abdomen. CT/CTA Chest W/WO Contrast IMPRESSION: No evidence for PE. Moderate to severe fibrotic COPD. Electronically Signed: Osmar Reardon MD at 19:59 EDT , Service support , CC: JEREMIE Oquendo; Dana Stewart MD Entry Level Software Engineer: Signed CHEST 1 VIEW Observed: 08/03/2018 Status: F Source: [place]I (PORTABLE) 5:20 PM [facility] REPOSITORY [facility] Imaging Services [address] [place] [address] Chest 1 View (Portable) MR#: [id number] Acct: [id number] Name: ANTHONY VASQUEZ Rep #: [id number] : 1960 M 57 From: Orlin Appiah MD PCP: JEREMIE Amanda Status: REG ER Study: Chest 1 View (Portable) Date of Exam: 08/03/18 Exam# [id number] Ordering Dr: Dana Stewart MD STUDY: X-RAY CHEST REASON FOR EXAM: Male, 57 years old. Shortness of breath. TECHNIQUE: Single frontal view of the chest. COMPARISON: July 20, 2018 FINDINGS: The lungs are mildly hyperexpanded and unchanged. The nodule mentioned on the prior report is not identified. There is no demonstrated pleural abnormality. There is stable cardiomegaly. There is a stable single lead cardiac pacer. Normal mediastinum and alberto. Normal visualized pulmonary arteries. There is atherosclerotic calcification of the aortic arch with tortuosity. Normal visualized thoracic spine. Normal visualized ribs, clavicles, and shoulders. There is no demonstrated abnormality of the visualized soft tissue structures of the upper abdomen. RAD/Chest 1 View (Portable) IMPRESSION: Stable cardiomegaly with hyperexpansion. No new or acute pathology. Electronically Signed: Orlin Appiah MD at 17:44 EDT , Service support , CC: JEREMIE Oquendo; Dana Stewart MD Entry Level Software Engineer: Signed CBC W/DIFF, AUTOMATED Collected: 08/03/2018 Status: F Source: JI 5:00 PM [facility] REPOSITORY TYPE CODE TESTS RESULT OUT OF RANGE REFERENCE UNITS LAB L100.1000 4.4-11.0 K/mm3 High WBC 13.0 LAB L100.1200 4.6-6.2 M/mm3 Low RBC 4.18 LAB L100.1300 13.0-16.5 g/dl Low HGB 12.1 LAB L100.1400 40-54 % Low HCT 37.4 LAB L100.1500 80-94 fL Normal MCV 89.5 LAB L100.1600 27.0-32.0 pg Normal MCH 28.9 LAB L100.1700 32-36 g/gl Normal MCHC 32.4 LAB L100.1810 11.6-14.6 % Normal RDW CV 14.1 LAB L100.1820 35.1-43.9 fl High RDW SD 46.0 LAB L100.1900 150-450 K/mm3 Normal PLT 265 LAB L100.2000 6.2-12.0 fl Normal MPV 8.8 LAB L100.2100 47-70 % High NEUT% 85.3 LAB L100.2200 19-41 % Low LY% 5.9 LAB L100.2300 0-10 % Normal MONO% 8.3 LAB L100.2400 0-5 % Normal EO% 0.2 LAB L100.2500 0-1 % Normal BASO% 0.2 LAB L100.2550 0.0-0.9 % Normal IM GRAN % 0.100 Result Comment: IG% - Immature Granulocytes (promyelocytes, myelocytes and metamyelocytes) > 1% indicates that a LEFT SHIFT is Present. LAB L100.2620 2.0-7.7 X10 3/uL High Absolute Neut 11.1 LAB L100.2720 0.83-4.51 X10 3/ul Low Absolute Lymph 0.76 Performed By: #### L100.0100 #### [facility] [address] [place], [place], [address] D-DIMER QUANTITATIVE Collected: 08/03/2018 Status: F Source: [place] (DVT/PE) 5:00 PM [facility] REPOSITORY TYPE CODE TESTS RESULT OUT OF RANGE REFERENCE UNITS LAB L300.8000 0.27-0.49 FEU/ug/m High alert D-DIMER 0.73 QUANT Result Comment: D-Dimer ELEVATED (>0.49): Additional studies and clinical assessments are indicated to conclude diagnosis of: Deep Vein Thrombosis (DVT) or Pulmonary Embolism (PE) CRITICAL VALUE VERIFIED. CALLED TO ZORANCLAIRE 08/03/18 1746 Alesha Ch. RESULTS READ BACK BY SAME . Performed By: #### L300.8000 #### [facility] [address] [place], [place], [address] BASIC METABOLIC Collected: 08/03/2018 Status: F Source: [place] PROFILE (BMP) 5:00 PM [facility] REPOSITORY TYPE CODE TESTS RESULT OUT OF RANGE REFERENCE UNITS LAB L501.0100 74-106 mg/dL Normal GLU 100 Result Comment: Fasting Glucose result from 100 to 125 mg/dL suggests IMPAIRED HOMEOSTASIS per A.D.A. criteria. Please note revised GLUCOSE reference range effective 2017. LAB L501.1000 7-18 mg/dL Normal BUN 14 LAB L501.1100 0.70-1.30 mg/dL Normal CREAT,SERUM 0.85 Result Comment: The validity of the calculated GFR AND GFRAA in patients over 70 years has not been determined. Clinical correlation is essential. LAB L501.1110 >60 mL/min Normal EST GFR 97 Result Comment: Non- GFR Calc LAB L501.1115 >60 mL/min Normal EST GFR - AA 118 Result Comment: GFR Calc LAB L501.1255 ml/min Normal Estimated CRCL 90.53 LAB L501.1300 10-20 RATIO Normal BUN/CRE 16.4 LAB L501.2200 8.5-10 mg/dL Low .1 CA 8.2 LAB L501.5300 136-14 mmol/L Low 5 NA 129 LAB L501.5600 3.5-5. mmol/L Normal 1 K 3.8 LAB L501.5900 98-107 mmol/L Low CL 94 LAB L501.6100 21.0-3 mmol/L Normal 2.0 CO2 25.0 LAB L501.6200 5-15 Normal GAP 10 Performed By: #### L500.2500, L501.4010 #### [facility] [address] [place], [place], [id number] TROPONIN-I Collected: 08/03/2018 Status: F Source: [place] 5:00 PM [facility] REPOSITORY TYPE CODE TESTS RESULT OUT OF RANGE REFERENCE UNITS LAB L501.4010 <0.045 ng/mL Normal 0.036 TROPONIN-I Result Comment: TROPONIN-I EXPECTED VALUES <0.045 Negative 0.045 - 0.590 Consistent with Cardiac Damage > OR = 0.600 Critical Value Not every elevated troponin is indicative of MO. These values should be used with clinical judgement in examining the patient's clinical picture for diagnosis. To establish a diagnosis of MO versus myocardial injury, there must be a demonstrated rise and/or fall in the troponin values, in addition to ischemic symptoms, EKG changes, new regional wall motion abnormality, and/or angiographical evidence. PLEASE NOTE: REFERENCE RANGES EDITED 18 Performed By: #### L500.2500, L501.4010 #### [facility] [address] [place], [address] EMERGENCY DEPARTMENT Observed: 07/28/2018 Status: F Source: [place] SUMMARY 11:54 PM [facility] REPOSITORY [facility] Medical Records Department [address] [place] [address] Emergency Department Summary 07/28/18 2109 MR#: [id number] Acct: [id number] Name: ANTHONY VASQUEZ Rep #: [id number] : 1960 57 From: Anthony Boswell MD PCP: JEREMIE Amanda Status: DEP ER - ER Visit Summary Date of Service: 07/28/18 Chief Complaint: Spider bite History of Present Illness: The patient is a 57 M presenting secondary to a spider bite. Patient reports that since yesterday he has noticed a spreading area on his right inner thigh that is painful. Patient believes that potentially he was bitten by a black . Patient did not see anything bite him. He is states that he had a fever yesterday of 103. Patient is not a diabetic but does have a history of coronary artery disease. Physical Examination: Vital signs within normal limits and the patient's afebrile. Examination of the patient's lower extremity shows evidence of a 1 cm eschar with some surrounding erythema. No evidence of subcutaneous emphysema, lymphangitic streaking. Test Results: None indicated Emergency Department Course and Treatment: Patient presented for evaluation secondary to a skin infection of the right thigh. Wound was cleaned with alcohol, and then was anesthetized using a field block. The eschar was lifted away from the skin, and the underlying area was irrigated. There is no evidence of tunneling. Wound was dressed with a dry sterile dressing. Patient will be placed on a course of doxycycline. He will follow-up with primary care. Disposition: Discharge Impression: 1. Right thigh eschar 2. Incision and drainage This note was generated with Sentrinsic dictation software. It may contain incorrect words, spelling, and punctuation that were not noted in review of the chart prior to signing ED Disposition - Plan for ED Patient: Disposition: Home or Assisted Living Chief Complaint: Abscess Diagnosis: Abscess of right thigh Instructions: ED Abscess IandD Prescriptions: Doxycycline Monohydrate 100 mg PO BID #14 cap Referrals: Berna Oquendo NP-C [Primary Care Provider] - 3-5 Days What to do if you have Problems For any increased pain, shortness of breath, bleeding, nausea or vomiting, chest pain, or any unexpected problems, contact your Primary Care Provider. Call [facility] ([phone]) or report to the closest Emergency Room. Call 911 if necessary. 07/28/18 3264 <Electronically signed by Anthony Boswell MD> Date Anthony Boswell MD Cosigner Signature (If Indicated): Date CC: JEREMIE Oquendo 12 LEAD ELECTROCARDIOGRAM Observed: 07/23/2018 Status: F Source: JI 11:08 AM [facility] REPOSITORY [facility] Cardiovascular Services [address] [place] [address] 12 Lead EKG 07/20/18 1046 MR#: [id number] Acct: [id number] Name: ANTHONY VASQUEZ Rep #: [id number] : 1960 57 From: Lionel Eason MD Attending Dr: Status: DEP ER Ordering Dr: Mehdi Bello MD Date: 07/20/18 Location: ED Sex: M C Admitted: Test Reason : CP Blood Pressure : / mmHG Vent. Rate : 093 BPM Atrial Rate : 093 BPM P-R Int : 204 ms QRS Dur : 096 ms QT Int : 394 ms P-R-T Axes : 083 -38 128 degrees QTc Int : 489 ms Normal sinus rhythm Biatrial enlargement Left axis deviation Septal infarct , age undetermined ST AND T wave abnormality, consider lateral ischemia Abnormal ECG Confirmed by ERICA BARLOW, LIONEL ([id number]), video effects editor TEZ PETERSON ([id number]) on 07/23/2018 11:08:21 AM Referred By: ACE Confirmed By:LIONEL EASON MD 07/23/18 1108 Date Lionel Eason MD CC: NEWSPAPER COLUMNIST-Seferino Oquendo; Mehdi Bello MD Signed EMERGENCY DEPARTMENT Observed: 07/20/2018 Status: F Source: [place] SUMMARY 12:43 PM [facility] REPOSITORY [facility] Medical Records Department [address] [place] [address] Emergency Department Summary 07/20/18 1105 MR#: [id number] Acct: [id number] Name: ANTHONY VASQUEZ Rep #: [id number] : 1960 57 From: Mehdi Bello MD PCP: JEREMIE Amanda Status: REG ER - ER Visit Summary Date of Service: 07/20/18 Chief Complaint: Shortness of breath History of Present Illness: The patient is a 57 M who has multiple medical problems presents with shortness of breath, dyspnea on exertion and productive cough of yellow colored sputum. Patient states he normally has clear to white colored sputum. He does have history of COPD. He presently smokes 2-3 cigarettes a day. 5 years ago he smoked 2+ packs per day. He has history of coronary disease with ischemic cardiomyopathy and placement of a automatic internal cardiac defibrillator 3-4 months ago. He denies fever, chills night sweats. He denies weight gain or weight loss. He denies ocular, visual auditory symptoms. He denies nasal congestion or postnasal drip. He denies sore throat. He denies chest discomfort. He denies orthopnea or PND. He denies abdominal pain, vomiting, diarrhea or constipation. He denies leg pain, swelling or discoloration. He denied all other questions. Please read written note for complete detail Physical Examination: Vitals noted and blood pressure is 147/90. He is not hypoxic nor is he febrile. Head is atraumatic normocephalic. Pupils are equal round reactive. Extraocular muscles are intact. TMs are pearly white with landmarks noted. Nares patent with no drainage. Posterior pharynx without erythema or exudate. Uvula is midline. There is no dysphonia or dysphasia. Trachea is midline. There is no stridor with auscultation of the neck. Heart is regular without murmur, gallop or rub. Lungs reveal wheezing bilaterally with increased x-ray phase and diminished breath sounds bilaterally. Abdomen is scaphoid nontender bowel sounds are present normal. There is no asymmetry, swelling, discoloration, leg vein distention, palpable cords or tenderness along the distribution of the deep venous system. Neuro exam is nonfocal. Test Results: EKG is abnormal. Mechanism sinus with a ventricular rate of 93. DE interval is prolonged and consistent with first-degree AV block. There is evidence of cor pulmonale and decreased anterior force. There are ST-T wave changes lateral leads. This is unchanged from June 16, 2018. And there is exactly similar to EKG dated March 23, 2018. Two-view chest x-ray reveals chronic pulmonary changes. Cardiac silhouette is normal. Defibrillator noted. No evidence of pneumothorax, CHF or effusion. CBC is unremarkable. Basic medical panel is remarkable for glucose of 179. Emergency Department Course and Treatment: To evaluate patient's dyspnea with history of COPD and coronary disease EKG was obtained to evaluate for acute ischemia. Chest x-ray to evaluate for pneumonia, pneumothorax or heart failure since there is a history of both systolic and diastolic congestive heart failure. With history of anemia and he appears pale will obtain CBC since this may be a cause of his shortness of breath as well. He was treated with DuoNeb and albuterol for his bilateral expiratory wheezing. Treatment Plan: Patient was reassessed at 1225. He is no longer wheezing. He is not tachypnic. He states he still feels ill. He was instructed to stop smoking. He was discharged with prescription for prednisone and doxycycline. Disposition: Discharged to home in improved and stable Impression: 1. Acute exacerbation of COPD with bronchospasm 2. Exacerbation of chronic bronchitis 3. History of ischemic cardiomyopathy 4. Hyperglycemia This note was generated with Sentrinsic dictation software. It may contain incorrect words, spelling, and punctuation that were not noted in review of the chart prior to signing ED Disposition - Plan for ED Patient: Disposition: Home or Assisted Living Chief Complaint: Shortness of Breath Instructions: ED COPD Flare, ED Hyperglycemia New Susp Diabetes Prescriptions: Prednisone [Deltasone] 40 mg PO DAILY #10 tab Doxycycline Monohydrate 100 mg PO BID #14 cap Referrals: Berna Oquendo NP-C [Primary Care Provider] - 1 Week What to do if you have Problems For any increased pain, shortness of breath, bleeding, nausea or vomiting, chest pain, or any unexpected problems, contact your Primary Care Provider. Call [facility] ([phone]) or report to the closest Emergency Room. Call 911 if necessary. 07/20/18 1243 <Electronically signed by Mehdi Bello MD> Date Mehdi Bello MD Cosigner Signature (If Indicated): Date CC: NEWSPAPER COLUMNIST-C Berna Oquendo CHEST PA AND LATERAL Observed: 07/20/2018 Status: F Source: [place] 10:54 AM [facility] Imaging Services [address] [place] [address] Chest PA and Lateral MR#: [id number] Acct: [id number] Name: ANTHONY VASQUEZ Raffi Rep #: [id number] : 1960 M 57 From: Clark Pacheco DO PCP: JEREMIE Amanda Status: REG ER Study: Chest PA and Lateral Date of Exam: 07/20/18 Exam# [id number] Ordering Dr: Mehdi Bello MD STUDY: X-RAY CHEST REASON FOR EXAM: Male, 57 years old. Productive cough TECHNIQUE: PA and lateral views of the chest. # of Images: 2 COMPARISON: 06/16/2018 FINDINGS: There is hyperinflation of the lungs consistent with chronic obstructive lung disease (COPD). No acute airspace disease. Questionable mild on the right lower lobe measuring 1.4 x 1 cm. Stable left chest wall pacing device There is mild cardiac enlargement. Normal mediastinum and alberto. Normal visualized pulmonary arteries. Normal visualized aortic arch and descending thoracic aorta. Normal visualized thoracic spine. Normal visualized ribs, clavicles, and shoulders. There is no demonstrated abnormality of the visualized soft tissue structures of the upper abdomen. RAD/Chest PA and Lateral IMPRESSION: No acute cardiopulmonary disease. Questionable right lower lobe nodule. Nonemergent chest CT is recommended to further evaluate Electronically Signed: Clark Pacheco DO at 11:32 EDT Tel , Service support , CC: JEREMIE Oquendo; Mehdi Bello MD Entry Level Software Engineer: Signed CBC W/DIFF, AUTOMATED Collected: 07/20/2018 Status: F Source: [place] 10:48 AM [facility] REPOS[facility] TYPE CODE TESTS RESULT OUT OF RANGE REFERENCE UNITS LAB L100.1000 4.4-11.0 K/mm3 Normal WBC 7.4 LAB L100.1200 4.6-6.2 M/mm3 Low RBC 4.58 LAB L100.1300 13.0-16.5 g/dl Normal HGB 13.8 LAB L100.1400 40-54 % Normal HCT 41.8 LAB L100.1500 80-94 fL Normal MCV 91.3 LAB L100.1600 27.0-32.0 pg Normal MCH 30.1 LAB L100.1700 32-36 g/gl Normal MCHC 33.0 LAB L100.1810 11.6-14.6 % Normal RDW CV 14.5 LAB L100.1820 35.1-43.9 fl High RDW SD 47.7 LAB L100.1900 150-450 K/mm3 Normal PLT 186 LAB L100.2000 6.2-12.0 fl Normal MPV 9.1 LAB L100.2100 47-70 % High NEUT% 78.8 LAB L100.2200 19-41 % Low LY% 12.1 LAB L100.2300 0-10 % Normal MONO% 6.7 LAB L100.2400 0-5 % Normal EO% 1.6 LAB L100.2500 0-1 % Normal BASO% 0.5 LAB L100.2550 0.0-0.9 % Normal IM GRAN % 0.300 Result Comment: IG% - Immature Granulocytes (promyelocytes, myelocytes and metamyelocytes) > 1% indicates that a LEFT SHIFT is Present. LAB L100.2620 2.0-7.7 X10 3/uL Normal Absolute Neut 5.8 LAB L100.2720 0.83-4.51 X10 3/ul Normal Absolute Lymph 0.89 Performed By: #### L100.0100 #### [facility] [address] [place], [address] BASIC METABOLIC Collected: 07/20/2018 Status: F Source: [place] PROFILE ([facility]) 10:48 AM [facility] TYPE CODE TESTS RESULT OUT OF RANGE REFERENCE UNITS LAB L501.0100 74-106 mg/dL High GLU 179 Result Comment: Fasting Glucose result greater than or equal to 126 mg/dL suggests DIABETES MELLITUS per A.D.A. criteria. Please note revised GLUCOSE reference range effective 2017. LAB L501.1000 7-18 mg/dL Normal BUN 13 LAB L501.1100 0.70-1.30 mg/dL Normal CREAT,SERUM 0.82 Result Comment: The validity of the calculated GFR AND GFRAA in patients over 70 years has not been determined. Clinical correlation is essential. LAB L501.1110 >60 mL/min Normal EST GFR 102 Result Comment: Non- GFR Calc LAB L501.1115 >60 mL/min Normal EST GFR - AA 124 Result Comment: GFR Calc LAB L501.1255 ml/min Normal Estimated CRCL 93.57 LAB L501.1300 10-20 RATIO Normal BUN/CRE 15.9 LAB L501.2200 8.5-10 mg/dL Low .1 CA 8.4 LAB L501.5300 136-14 mmol/L Normal 5 NA 136 LAB L501.5600 3.5-5. mmol/L Normal 1 K 4.3 LAB L501.5900 98-107 mmol/L Normal CL 101 LAB L501.6100 21.0-3 mmol/L Normal 2.0 CO2 27.0 LAB L501.6200 5-15 Normal GAP 8 Performed By: #### L500.2500 #### [facility] [address] [place], [address] 12 LEAD ELECTROCARDIOGRAM Observed: 06/19/2018 Status: F Source: [place] 2:36 PM [facility] Cardiovascular Services [address] [place] [address] 12 Lead EKG 06/16/18 1327 MR#: [id number] Acct: [id number] Name: ANTHONY VASQUEZ Rep #: [id number] : 1960 57 From: Lionel Eason MD Attending Dr: Status: DEP ER Ordering Dr: Mehdi Bello MD Date: 06/16/18 Location: ED Sex: M C Admitted: Test Reason : Blood Pressure : / mmHG Vent. Rate : 091 BPM Atrial Rate : 091 BPM P-R Int : 192 ms QRS Dur : 102 ms QT Int : 418 ms P-R-T Axes : 086 -36 115 degrees QTc Int : 514 ms Normal sinus rhythm Right atrial enlargement Left axis deviation Voltage criteria for left ventricular hypertrophy ST AND T wave abnormality, consider anterolateral ischemia Prolonged QT Abnormal ECG Confirmed by ERICA BARLOW, LIONEL ([id number]), video effects editor HEIDE EDMONDS ([id number]) on 06/19/2018 2:35:59 PM Referred By: ACE Confirmed By:LIONEL EASON MD 06/19/18 1436 Date Lionel Eason MD CC: JEREMIE Oquendo; Mehdi Bello MD Signed EMERGENCY DEPARTMENT Observed: 06/16/2018 Status: F Source: [place] SUMMARY 5:05 PM [facility] Medical Records Department [address] [place] [address] Emergency Department Summary 06/16/18 1621 MR#: [id number] Acct: [id number] Name: ANTHONY VASQUEZ Rep #: [id number] : 1960 57 From: Mehdi Bello MD PCP: JEREMIE Amanda Status: REG ER - ER Visit Summary Date of Service: 06/16/18 Chief Complaint: Midsternal chest tightness with radiation to the left shoulder and arm associated with nausea, dyspnea and diaphoresis History of Present Illness: The patient is a 57 M who has history of ischemic cardiomyopathy with EF of 10-15% who had a pacemaker and automatic internal cardiac defibrillator placed this past December presents with chest tightness with aforementioned associated symptoms that occurred while standing at [employer]. He received aspirin and nitroglycerin by squad. He reported improvement of his discomfort. He denies fever, chills night sweats. He denies any URI symptoms. He denies history of PE or DVT. He denies vomiting or diarrhea. He denies hematemesis, melena hematochezia. He denies symptoms of claudication. He denies any neurologic symptoms. Physical Examination: Patient looks older than age. Head is atraumatic normocephalic. Pupils are equal round reactive. Extraocular muscles are intact. TMs are pearly white with landmarks noted. Nares patent with no drainage. Posterior pharynx without erythema or exudate. Uvula is midline. There is no dysphonia or dysphasia. Trachea is midline. There is no stridor with auscultation of the neck. Heart is regular without murmur, gallop or rub. S1 and S2 are normal. Lungs are clear to auscultation with good movement of air bilaterally. Abdomen is soft nontender bowel sounds are present normal per there is no asymmetry, swelling, discoloration, leg vein distention, palpable cords or tenderness along the distribution of the deep venous system. PT and DP pulses are palpable. Neuro exam is nonfocal. Test Results: EKG reveals sinus rhythm with decreased anterior force, left anterior fascicular block right atrial enlargement secondary to cor pulmonale and a new flipped T wave in V3 which may be secondary to lead placement. DE interval is normal. QRS duration is slightly prolonged. QT is prolonged. EKG was compared to EKG obtained March 23, 2018. Chest x-ray reveals chronic changes. CBC normal glucose 128. Troponin 0 0.042. He has had prior elevated troponin levels. Repeat troponin 0 0.36 with a delta of -0.06 Emergency Department Course and Treatment: Cardiac workup was undertaken. Need to evaluate cardiac versus GI versus pulmonary etiology. He received aspirin and nitro prior to arrival. He did not receive additional doses of nitro because of hypotension. Treatment Plan: Case was a soft Dr. Covarrubias. He requested a photo of prior EKG and today's EKG. Plan is 3-hour troponin/delta. If normal to discharge to home if positive to admit. Dr. Covarrubias requested to be notified if he is admitted or discharged. Disposition: Discharged to home with outpatient follow-up this week Impression: Precordial chest pain History of ischemic cardiomyopathy History of CHF This note was generated with Sentrinsic dictation software. It may contain incorrect words, spelling, and punctuation that were not noted in review of the chart prior to signing ED Disposition - Plan for ED Patient: Disposition: Home or Assisted Living Chief Complaint: Chest Pain Instructions: ED Chest Pain Atypical Unkn Cause Referrals: Berna Oquendo NP-C [Primary Care Provider] - Additional Instructions: Call Dr. Dhruv Tirado's office tomorrow for appointment to be seen within the next 2-3 days. What to do if you have Problems For any increased pain, shortness of breath, bleeding, nausea or vomiting, chest pain, or any unexpected problems, contact your Primary Care Provider. Call [facility] ([phone]) or report to the closest Emergency Room. Call 911 if necessary. 06/16/18 7857 <Electronically signed by Mehdi Bello MD> Date Mehdi Bello MD Cosigner Signature (If Indicated): Date CC: JEREMIE Oquendo; Bradford Tirado MD TROPONIN-I Collected: 06/16/2018 Status: F Source: [place] 4:25 PM [facility] RE[facility] Order Comment: 'TROP' Serial specimen #1, #2 or #3: 2 TYPE CODE TESTS RESULT OUT OF RANGE REFERENCE UNITS LAB L501.4010 <0.045 ng/mL Normal 0.036 TROPONIN-I Result Comment: TROPONIN-I EXPECTED VALUES <0.045 Negative 0.045 - 0.590 Consistent with Cardiac Damage > OR = 0.600 Critical Value Not every elevated troponin is indicative of MO. These values should be used with clinical judgement in examining the patient's clinical picture for diagnosis. To establish a diagnosis of MO versus myocardial injury, there must be a demonstrated rise and/or fall in the troponin values, in addition to ischemic symptoms, EKG changes, new regional wall motion abnormality, and/or angiographical evidence. PLEASE NOTE: REFERENCE RANGES EDITED 18 Performed By: #### L501.4010 #### [facility] [place], [address] CBC W/DIFF, AUTOMATED Collected: 06/16/2018 Status: F Source: [place] 1:30 PM [facility] TYPE CODE TESTS RESULT OUT OF RANGE REFERENCE UNITS LAB L100.1000 4.4-11.0 K/mm3 Normal WBC 7.7 LAB L100.1200 4.6-6.2 M/mm3 Normal RBC 4.79 LAB L100.1300 13.0-16.5 g/dl Normal HGB 13.9 LAB L100.1400 40-54 % Normal HCT 42.7 LAB L100.1500 80-94 fL Normal MCV 89.1 LAB L100.1600 27.0-32.0 pg Normal MCH 29.0 LAB L100.1700 32-36 g/gl Normal MCHC 32.6 LAB L100.1810 11.6-14.6 % Normal RDW CV 14.6 LAB L100.1820 35.1-43.9 fl High RDW SD 47.4 LAB L100.1900 150-450 K/mm3 Normal PLT 177 LAB L100.2000 6.2-12.0 fl Normal MPV 8.5 LAB L100.2100 47-70 % Normal NEUT% 67.1 LAB L100.2200 19-41 % Normal LY% 19.9 LAB L100.2300 0-10 % Normal MONO% 9.4 LAB L100.2400 0-5 % Normal EO% 3.0 LAB L100.2500 0-1 % Normal BASO% 0.5 LAB L100.2550 0.0-0.9 % Normal IM GRAN % 0.100 Result Comment: IG% - Immature Granulocytes (promyelocytes, myelocytes and metamyelocytes) > 1% indicates that a LEFT SHIFT is Present. LAB L100.2620 2.0-7.7 X10 3/uL Normal Absolute Neut 5.2 LAB L100.2720 0.83-4.51 X10 3/ul Normal Absolute Lymph 1.53 Performed By: #### L100.0100 #### [facility] [address] [place], [address] BASIC METABOLIC Collected: 06/16/2018 Status: F Source: [place] PROFILE ([facility]) 1:30 PM [facility] TYPE CODE TESTS RESULT OUT OF RANGE REFERENCE UNITS LAB L501.0100 74-106 mg/dL High GLU 128 Result Comment: Fasting Glucose result greater than or equal to 126 mg/dL suggests DIABETES MELLITUS per A.D.A. criteria. Please note revised GLUCOSE reference range effective 2017. LAB L501.1000 7-18 mg/dL Normal BUN 13 LAB L501.1100 0.70-1.30 mg/dL Normal CREAT,SERUM 0.86 Result Comment: The validity of the calculated GFR AND GFRAA in patients over 70 years has not been determined. Clinical correlation is essential. LAB L501.1110 >60 mL/min Normal EST GFR 96 Result Comment: Non- GFR Calc LAB L501.1115 >60 mL/min Normal EST GFR - AA 116 Result Comment: GFR Calc LAB L501.1255 ml/min Normal Estimated CRCL 88.82 LAB L501.1300 10-20 RATIO Normal BUN/CRE 15.1 LAB L501.2200 8.5-10 mg/dL Normal .1 CA 8.5 LAB L501.5300 136-14 mmol/L Normal 5 NA 141 LAB L501.5600 3.5-5. mmol/L Low 1 K 3.4 LAB L501.5900 98-107 mmol/L Normal CL 104 LAB L501.6100 21.0-3 mmol/L Normal 2.0 CO2 25.0 LAB L501.6200 5-15 Normal GAP 12 Performed By: #### L500.2500, L501.4010 #### [facility] [address] [place], [address] TROPONIN-I Collected: 06/16/2018 Status: F Source: [place] 1:30 PM [facility] TYPE CODE TESTS RESULT OUT OF RANGE REFERENCE UNITS LAB L501.4010 <0.045 ng/mL Normal 0.042 TROPONIN-I Result Comment: TROPONIN-I EXPECTED VALUES <0.045 Negative 0.045 - 0.590 Consistent with Cardiac Damage > OR = 0.600 Critical Value Not every elevated troponin is indicative of MO. These values should be used with clinical judgement in examining the patient's clinical picture for diagnosis. To establish a diagnosis of MO versus myocardial injury, there must be a demonstrated rise and/or fall in the troponin values, in addition to ischemic symptoms, EKG changes, new regional wall motion abnormality, and/or angiographical evidence. PLEASE NOTE: REFERENCE RANGES EDITED 18 Performed By: #### L500.2500, L501.4010 #### [facility] [address] [place], [address] CHEST 1 VIEW Observed: 06/16/2018 Status: F Source: [place] (PORTABLE) 1:24 PM [facility] Imaging Services [address] [place] [address] Chest 1 View (Portable) MR#: [id number] Acct: [id number] Name: ANTHONY VASQUEZ Rep #: [id number] : 1960 M 57 From: Elizabeth Welsh MD PCP: JEREMIE Amanda Status: REG ER Study: Chest 1 View (Portable) Date of Exam: 06/16/18 Exam# [id number] Ordering Dr: Mehdi Bello MD STUDY: X-RAY CHEST REASON FOR EXAM: Male, 57 years old. Chest pain G TECHNIQUE: Single AP portable view of the chest. X2 COMPARISON: March 23, 2018 chest x-ray FINDINGS: There is a left-sided defibrillator. The lungs are clear and expanded. There is no demonstrated pleural abnormality. There is borderline cardiomegaly. Normal mediastinum and alberto. Normal visualized pulmonary arteries. Normal visualized aortic arch and descending thoracic aorta. Normal visualized thoracic spine. Normal visualized ribs, clavicles, and shoulders. There is no demonstrated abnormality of the visualized soft tissue structures of the upper abdomen. RAD/Chest 1 View (Portable) IMPRESSION: Stable chest no visualized focal infiltrate. Electronically Signed: Elizabeth Welsh MD at 14:34 EDT Tel , Service support , CC: JEREMIE Oquendo; Mehdi Bello MD Entry Level Software Engineer: Signed 12 LEAD ELECTROCARDIOGRAM Observed: 03/26/2018 Status: F Source: [place] 10:05 AM [facility] Cardiovascular Services [address] [place] [address] 12 Lead EKG 03/23/182111 MR#: [id number] Acct: [id number] Name: ANTHONY JUNG Rep #: [id number] : 1960 57 From: Martin Covarrubias MD Attending Dr: Status: DEP ER Ordering Dr: Bradford Kidd MD Date: 03/23/18 Location: ED Sex: M C Admitted: Test Reason : CP/SOB Blood Pressure : / mmHG Vent. Rate : 065 BPM Atrial Rate : 065 BPM P-R Int : 218 ms QRS Dur : 112 ms QT Int : 474 ms P-R-T Axes : 082 -55 211 degrees QTc Int : 492 ms Sinus rhythm with 1st degree A-V block Left anterior fascicular block ST AND T wave abnormality, consider lateral ischemia Prolonged QT Abnormal ECG Confirmed by MARTIN COVARRUBIAS MD ([id number]), video effects editor TEZ PETERSON ([id number]) on 03/26/2018 10:04:35 AM Referred By: DR BELLO Confirmed By:MARTIN COVARRUBIAS MD 03/26/18 1004 Date Martin Covarrubias MD CC: NEWSPAPER COLUMNISTKadeem Oquendo; Bradford Kidd MD Signed EMERGENCY DEPARTMENT Observed: 03/24/2018 Status: F Source: [place] SUMMARY 12:26 AM [facility] Medical Records Department [address] [facility] [place] [address] Emergency Department Summary 03/23/18 2326 MR#: [id number] Acct: [id number] Name: ANTHONY JUNG Rep #: [id number] : 1960 57 From: Bradford Kidd MD PCP: JEREMIE Amanda Status: DEP ER - ER Visit Summary Date of Service: 03/23/18 Chief Complaint: Chest pain History of Present Illness: The patient is a 57 M with chest pain for an hour. This started when he believes his defibrillator fired. He had been drinking this evening and he was watching TV. He felt some shortness of breath with it. He has a history of nonischemic cardiomyopathy. He had a defibrillator placed about 2 months ago. Physical Examination: Afebrile and vital signs unremarkable. The patient is alert and oriented. No acute distress. Heart regular rate and rhythm. Lungs clear throughout. Abdomen soft. Skin unremarkable. Calves soft and supple. Pulses strong and equal. Test Results: KG showed sinus rhythm with nonspecific ST and T-wave changes. He had these documented on prior EKGs. There is no acute infarction pattern. CBC and BMP unremarkable. Troponin normal. BNP 400. Chest x-ray showed no acute abnormalities. Emergency Department Course and Treatment: Patient was placed on a monitor. He was treated with aspirin and a dose of fentanyl while awaiting results. Defibrillator was interrogated. I did speak with the tach. There was no firing or dysrhythmia detected. Patient was reevaluated after his results were back. He had no further issues. He felt better. No pain. No shortness of breath. I spoke with Dr. Tirado. No further recommendations. He said of the workup and vital signs were unremarkable, he can follow-up as needed. Patient will be discharged. Treatment Plan: As above Disposition: Discharged Impression: 1. Chest pain unclear etiology This note was generated with Sentrinsic dictation software. It may contain incorrect words, spelling, and punctuation that were not noted in review of the chart prior to signing ED Disposition - Plan for ED Patient: Chief Complaint: Chest Pain Referrals: Berna Oquendo NP-C [Primary Care Provider] - What to do if you have Problems For any increased pain, shortness of breath, bleeding, nausea or vomiting, chest pain, or any unexpected problems, contact your Primary Care Provider. Call [facility] ([phone]) or report to the closest Emergency Room. Call 911 if necessary. 03/24/18 0026 <Electronically signed by Bradford Kidd MD> Date Bradford Kidd MD Cosigner Signature (If Indicated): Date CC: JEREMIE Oquendo DISCHARGE INSTRUCTION Observed: 03/24/2018 Status: F Source: [place] 12:26 AM [facility] Medical Records Department [address] [place] [address] Discharge Instruction 03/23/18 2331 MR#: [id number] Acct: [id number] Name: ANTHONY JUNG Rep #: [id number] : 1960 57 From: Bradford Kidd MD PCP: JEREMIE Amanda Status: [facility] ER ED Disposition - Plan for ED Patient: Chief Complaint: Chest Pain Instructions: ED Chest Pain Atypical Unkn Cause Referrals: Berna Oquendo NP-C [Primary Care Provider] - What to do if you have Problems For any increased pain, shortness of breath, bleeding, nausea or vomiting, chest pain, or any unexpected problems, contact your Primary Care Provider. Call [facility] ([phone]) or report to the closest Emergency Room. Call 911 if necessary. 03/24/18 0026 <Electronically signed by Bradford Kidd MD> Date Bradford Kidd MD Cosigner Signature (If Indicated): Date CC: JEREMIE Oquendo CHEST 1 VIEW Observed: 03/23/2018 Status: F Source: [place] (PORTABLE) 9:15 PM [facility] RE[facility] Imaging Services [address] [place] [id number] Chest 1 View (Portable) MR#: [id number] Acct: [id number] Name: ANTHONY JUNG Rep #: [id number] : 1960 M 57 From: Vic Looney DO PCP: JEREMIE Amanda Status: REG ER Study: Chest 1 View (Portable) Date of Exam: 03/23/18 Exam# [id number] Ordering Dr: Bradford Kidd MD STUDY: X-RAY CHEST REASON FOR EXAM: Male, 57 years old. Central chest pain. Shortness of breath weakness and dizziness. History of recent pacemaker insertion one month ago. TECHNIQUE: Single AP portable view of the chest. COMPARISON: January 17, 2018. FINDINGS: The lungs are well expanded. There is persistent density at the right lung base thought to be chronic. There is no demonstrated pleural abnormality. The heart is normal size. Stable cardiac pacemaker. Normal mediastinum and alberto. Normal visualized pulmonary arteries. There is atherosclerotic calcification of the aortic arch with tortuosity. No visualized osseous changes. There is degenerative osteoarthritis of the bilateral shoulders. There is no demonstrated abnormality of the visualized soft tissue structures of the upper abdomen. RAD/Chest 1 View (Portable) IMPRESSION: No major interval change. Electronically Signed: Vic LooneyDO at 21:43 EDT Tel [phone], Service support , CC: JEREMIE Oquendo; Bradford Kidd MD Entry Level Software Engineer: Signed CBC W/DIFF, AUTOMATED Collected: 03/23/2018 Status: F Source: [place] 9:12 PM [facility] TYPE CODE TESTS RESULT OUT OF RANGE REFERENCE UNITS LAB L100.1000 4.4-11.0 K/mm3 Normal WBC 8.0 LAB L100.1200 4.6-6.2 M/mm3 Normal RBC 4.90 LAB L100.1300 13.0-16.5 g/dl Normal HGB 13.4 LAB L100.1400 40-54 % Normal HCT 40.7 LAB L100.1500 80-94 fL Normal MCV 83.1 LAB L100.1600 27.0-32.0 pg Normal MCH 27.3 LAB L100.1700 32-36 g/gl Normal MCHC 32.9 LAB L100.1810 11.6-14.6 % High RDW CV 18.8 LAB L100.1820 35.1-43.9 fl High RDW SD 57.6 LAB L100.1900 150-450 K/mm3 Normal PLT 161 LAB L100.2000 6.2-12.0 fl Normal MPV 8.3 LAB L100.2100 47-70 % Normal NEUT% 56.3 LAB L100.2200 19-41 % Normal LY% 29.7 LAB L100.2300 0-10 % High MONO% 10.5 LAB L100.2400 0-5 % Normal EO% 3.0 LAB L100.2500 0-1 % Normal BASO% 0.4 LAB L100.2550 0.0-0.9 % Normal IM GRAN % 0.100 Result Comment: IG% - Immature Granulocytes (promyelocytes, myelocytes and metamyelocytes) > 1% indicates that a LEFT SHIFT is Present. LAB L100.2620 2.0-7.7 X10 3/uL Normal Absolute Neut 4.5 LAB L100.2720 0.83-4.51 X10 3/ul Normal Absolute Lymph 2.37 Performed By: #### L100.0100, L500.2500, L501.4010 #### [facility] [address] [place], [place], [id number] BASIC METABOLIC Collected: 03/23/2018 Status: F Source: [place] PROFILE (BMP) 9:12 PM [facility] TYPE CODE TESTS RESULT OUT OF RANGE REFERENCE UNITS LAB L501.0100 74-106 mg/dL Normal GLU 88 Result Comment: Please note revised GLUCOSE reference range effective 2017. LAB L501.1000 7-18 mg/dL Low BUN 6 LAB L501.1100 0.70-1.30 mg/dL Low CREAT,SERUM 0.62 Result Comment: The validity of the calculated GFR AND GFRAA in patients over 70 years has not been determined. Clinical correlation is essential. LAB L501.1110 >60 mL/min Normal EST GFR 141 Result Comment: Non- GFR Calc LAB L501.1115 >60 mL/min Normal EST GFR - AA 171 Result Comment: GFR Calc LAB L501.1255 ml/min Normal Estimated CRCL 124.11 LAB L501.1300 10-20 RATIO Low BUN/CRE 9.7 LAB L501.2200 8.5-10 mg/dL Low .1 CA 8.3 LAB L501.5300 136-14 mmol/L 5 NA Normal 136 LAB L501.5600 3.5-5. mmol/L 1 K Normal 3.7 LAB L501.5900 98-107 mmol/L CL Normal 103 LAB L501.6100 21.0-3 mmol/L 2.0 CO2 Normal 23.0 LAB L501.6200 5-15 GAP Normal 10 Performed By: #### L100.0100, L500.2500, L501.4010 #### [facility] [address] [place], [address] TROPONIN-I Collected: 03/23/2018 Status: F Source: [place] 9:12 PM [facility] TYPE CODE TESTS RESULT OUT OF RANGE REFERENCE UNITS LAB L501.4010 <0.045 ng/mL Normal 0.029 TROPONIN-I Result Comment: TROPONIN-I EXPECTED VALUES <0.045 Negative 0.045 - 0.590 Consistent with Cardiac Damage > OR = 0.600 Critical Value Not every elevated troponin is indicative of MO. These values should be used with clinical judgement in examining the patient's clinical picture for diagnosis. To establish a diagnosis of MO versus myocardial injury, there must be a demonstrated rise and/or fall in the troponin values, in addition to ischemic symptoms, EKG changes, new regional wall motion abnormality, and/or angiographical evidence. PLEASE NOTE: REFERENCE RANGES EDITED 18 Performed By: #### L100.0100, L500.2500, L501.4010 #### [facility] [address] [place], [address] BNP,B-TYPE NATRIURETIC Collected: 03/23/2018 Status: F Source: [place] PEPTIDE 9:12 PM [facility] REPOS[facility] TYPE CODE TESTS RESULT OUT OF RANGE REFERENCE UNITS LAB L503.6620 0-100 pg/mL High B-TYPE 412.4 HENRY PEP Performed By: #### L503.6620 #### [facility] [address] [place], [address] PACEMAKER CHECK Observed: 03/01/2018 Status: F Source: [place] 12:22 PM [facility] RE[facility] [address] [place] [address] Pacemaker Check Date of Service: 02/27/18 1345 MR#: [id number] Acct: [id number] Name: ANTHONY JUNG Raffi Rep #: [id number] : 1960 From: Анна Vee Age/Sex: 57/M Location: [facility] Status: Signed Comments Summary Comments: Single Chamber ICD Evaluation: 6 wk post ICD implant check completed. Interrogation shows no VT/VF episodes since implant. Left pectoral pocket/incision w/o s/s of infection or erosion. Pt offers no cardiac complaints. Presenting rhythm shows NSR @ 98 bpm. CALF SKINNER=0%. Battery longevity approx 12 yrs. Lead impedance, sensing and pace/sense threshold remain stable. Decreased RV amplitude with adequate safety margin to preserve battery longevity. Pt instructed that he no longer has any left arm restrictions. Counters cleared. Next remote f/u appt scheduled for in 3 mos. Device Device Date Interviewed: 02/27/18 Follow-up Location: in office Interview Reason: scheduled follow up Neuropsychology Division Chief: Unype Name: Inogen EL ICD DF4-VR Model: D140 Serial #: [id number] Implant Date: 01/10/18 Year(s): 0 Implant Physician: Dr. Damien Duong/[facility] Patient Characteristics Patient Substrate: Ischemic cardiomyopathy Ejection fraction %: 15 to 19 By: Echo Implant DFT: no DFT testing performed Underlying rhythm: Sinus rhythm Pacemaker Dependent: No Device Characteristics Device: Single Chamber Type: Implantable defibrillator Remote Follow-Up: Latitude Device Physical Exam Yes Incision well healed, No hematoma, Tense hematoma and No drainage Leads Lead #1 Neuropsychology Division Chief Lead 1: Unype Model Lead 1: 0292 Serial# Lead 1: [id number] Date Implanted Lead 1: 01/10/18 Position Lead 1: RV Diagnostics Pacing % RV Pacin Arrhythmias VF Episodes: 0 Fast VT Episodes: 0 Slow VT Episodes: 0 Non-Sust Episodes: 0 Measurements Battery Charge Time (Sec): 9.4 Predicted Remaining Longevity (months or years): 12 years RV Measurements Signal Amplitude (mV): 25 Impedance (Ohms): 608 Threshold Voltage: 0.7 @ PW(ms): 0.4 Shock Impedance (Ohms): 73 Tachy Settings VF on ms 220(bpm) 8 sec FVT on ms 180(bpm) 12 sec VT ms (bpm) Monitor Monitor Only ms (bpm) VF Therapies VF Therapy Status On On On On On On Energy 29 41 41 41 41 41 Pathway ATP: During charging on FVT Therapies FVT Therapy Status On On On On On On VT Therapies FVT Therapy Status Off Off Off Off Off Off Comments: Yobani Settings Yobani Settings Pacemaker Mode VVI Lower Rate Limit (bpm) 40 Hysteresis Rate (bpm) Max Track Rate (bpm) Max Sensor Rate (bpm) Max AV Delay (msec) Max PV Delay (msec) Max PVARP (msec) Output/Sensing V/PW (ms) 2.0/0.4 Sensitivity RA RV LV Comments: Billing Codes ICD Device Billing: ICD Dev Prog Eval, Single Assessment AND Plan Problems 1. ICD (implantable cardioverter-defibrillator) in place Z95.810 2. Near syncope R55 3. Ischemic cardiomyopathy I25.5 4. NSVT (nonsustained ventricular tachycardia) I47.2 02/27/18 1634 <Electronically signed by Анна Vee > Date Анна Vee 03/01/18 1222<Electronically signed by Bradford Tirado MD> Cosigner Signature: Date (if applicable) Bradford Tirado MD CC: PACEMAKER CHECK Observed: 01/26/2018 Status: F Source: [place] 11:34 AM [facility] REPOS[facility] [place] [address] Pacemaker Check Date of Service: 01/18/18 1540 MR#: [id number] Acct: [id number] Name: ANTHONY JUNG Rep #: [id number] : 1960 From: Bradford Tirado MD Age/Sex: 57/M Location: [facility] Status: Signed Comments Summary Comments: Wound Check: 1 wk s/p ICD implant wound check completed. Left pectoral pocket/incision open to air with steri-strips intact. Steri- strips loose so removed. Incision well approximated w/o drainage or redness noted. No hematoma noted. Pt afebrile T=98.7 degrees F temporally. Left arm restrictions reinforced for 4 more wks. Pt enrolled in Latitude remote site at implant awaiting for delivery of transmitter. 6 wk post implant device check scheduled. Device Device Date Interviewed: 01/18/18 Follow-up Location: in office Interview Reason: scheduled follow up Neuropsychology Division Chief: [place] [employer] Scientific Name: Inogen EL ICD DF4-VR Model: D140 Serial #: [id number] Implant Date: 01/10/18 Year(s): 0 Implant Physician: Dr. Damien Duong/[facility] Patient Characteristics Patient Substrate: Ischemic cardiomyopathy Ejection fraction %: 15 to 19 By: Echo Implant DFT: no DFT testing performed Underlying rhythm: Sinus rhythm Pacemaker Dependent: No Device Characteristics Device: Single Chamber Type: Implantable defibrillator Remote Follow-Up: Latitude Device Physical Exam Yes Steri-strips intact, No hematoma, No drainage and Pocket not tender Leads Lead #1 Neuropsychology Division Chief Lead 1: Unype Model Lead 1: 0292 Serial# Lead 1: [id number] Date Implanted Lead 1: 01/10/18 Position Lead 1: RV Tachy Settings VF on ms 220(bpm) 8 sec FVT on ms 180(bpm) 12 sec VT ms (bpm) Monitor Monitor Only ms (bpm) VF Therapies VF Therapy Status On On On On On On Energy 29 41 41 41 41 41 Pathway ATP: During charging on FVT Therapies FVT Therapy Status On On On On On On VT Therapies FVT Therapy Status Off Off Off Off Off Off Comments: Yobani Settings Yobani Settings Pacemaker Mode VVI Lower Rate Limit (bpm) 40 Hysteresis Rate (bpm) Max Track Rate (bpm) Max Sensor Rate (bpm) Max AV Delay (msec) Max PV Delay (msec) Max PVARP (msec) Output/Sensing V/PW (ms) 3.5/0.4 Sensitivity RA RV LV Comments: Assessment AND Plan Problems 1. ICD (implantable cardioverter-defibrillator) in place Z95.810 2. Ischemic cardiomyopathy I25.5 3. NSVT (nonsustained ventricular tachycardia) I47.2 4. Near syncope R55 01/26/18 1134 <Electronically signed by Bradford Tirado MD> Date Bradford Tirado MD 01/18/18 1651<Electronically signed by Анна Vee > Sandra Signature: Date (if applicable) Анна Vee CC: OFFICE VISIT REPORT Observed: 01/23/2018 Status: F Source: JI 5:[address] [place] [address] OFFICE VISIT Date of Service: 01/23/18 MR#: [id number] Acct: [id number] Patient: ANTHONY JUNG Rep #: [id number] : 1960 Provider: Bradford Tirado MD Age/Sex: 57/M Location: [facility] Status: Signed Intake Intake Visit Reasons: bp ck per HD Chief Complaint: Routine follow-up for ischemic cardiomyopathy Allergies No Known Allergies Allergy (Verified 01/17/18 23:24) Medications Acetaminophen [Tylenol Tablet] 650 mg PO Q6H PRN PRN #0 tab 09/26/16 [Rx Confirmed 01/23/18] Albuterol Aerosols [Ventolin Aerosols] 2.5 mg INHALATION Q2H PRN PRN #30 vial.neb. 09/26/16 [Rx Confirmed 01/23/18] Albuterol Sulfate [Ventolin Hfa] 18 gm IH Q4H PRN PRN #1 hfa.aer.ad 09/26/16 [Rx Confirmed 01/23/18] Gabapentin [Neurontin] 600 mg PO DAILY #30 tab 12/14/17 [Rx Confirmed 01/23/18] Nitroglycerin [Nitrostat] 0.4 mg SUBLINGUAL Q5M PRN #1 bottle 12/14/17 [Rx Confirmed 01/23/18] aspirin 81 mg chewable tablet 81 mg PO DAILY@0800 #30 tab.chew 01/11/18 [Rx Confirmed 01/23/18] atorvastatin 80 mg tablet 80 mg PO QHS #30 tab 01/11/18 [Rx Confirmed 01/23/18] carvedilol 6.25 mg tablet 6.25 mg PO BID #60 tab 01/11/18 [Rx Confirmed 01/23/18] clopidogrel 75 mg tablet 75 mg PO DAILY #30 tab 01/11/18 [Rx Confirmed 01/23/18] furosemide 40 mg tablet 40 mg PO DAILY #30 tab 01/11/18 [Rx Confirmed 01/23/18] isosorbide mononitrate ER 30 mg tablet,extended release 24 hr 30 mg PO DAILY #30 tab 01/11/18 [Rx Confirmed 01/23/18] losartan 25 mg tablet 25 mg PO DAILY #30 tab 01/11/18 [Rx Confirmed 01/23/18] potassium chloride ER 20 mEq tablet,extended release(part/cryst) 20 meq PO DAILY #30 tab 01/11/18 [Rx Confirmed 01/23/18] ascorbic acid (vitamin C) 500 mg tablet 500 mg PO BIDCM #60 tab 01/15/18 [Rx Confirmed 01/23/18] ferrous gluconate 324 mg (37.5 mg iron) tablet 325 mg PO BIDCM #60 tab 01/15/18 [Rx Confirmed 01/23/18] Nursing Note Pt is here today for a bp check and cuff correlation d/t fluctuations in bp 177/74 and 53/37. Pt denies SOB, chest discomfort, edema. Pt states he notices the dizziness at night when taking isosorbide. Our cuff: 128/80, 84 Pt cuff: 168/147, HR 57 Reviewed the following with Dr. Eason and pt is to take isosorbide in the morning not evening, pt instructed to call out office in one week with an update on symptoms. 01/23/18 4832 <Electronically signed by Lionel Eason MD> Date Lionel Eason MD Cosigner Signature: Date (if applicable) CC: Angelo Garcia 12 LEAD ELECTROCARDIOGRAM Observed: 01/21/2018 Status: F Source: JI 3:00 PM [facility] REPOSITORY [facility] Cardiovascular Services [address] [place] [address] 12 Lead EKG 01/17/18 2331 MR#: [id number] Acct: [id number] Name: ANTHONY JUNG Rep #: [id number] : 1960 57 From: Lionel Eason MD Attending Dr: Status: DEP ER Ordering Dr: El Bustillos MD Date: 01/17/18 Location: ED Sex: M C Admitted: Test Reason : Blood Pressure : / mmHG Vent. Rate : 087 BPM Atrial Rate : 087 BPM P-R Int : 198 ms QRS Dur : 098 ms QT Int : 400 ms P-R-T Axes : 079 -41 226 degrees QTc Int : 481 ms Normal sinus rhythm Left axis deviation Septal infarct , age undetermined ST AND T wave abnormality, consider inferior ischemia ST AND T wave abnormality, consider anterolateral ischemia Abnormal ECG Confirmed by ERICA BARLOW, LIONEL ([id number]), video effects editor HEIDE EDMONDS ([id number]) on 01/21/2018 3:00:21 PM Referred By: Bradford Tirado Confirmed By:LIONEL EASON MD 01/21/18 1500 Date Lionel Eason MD CC: Berna Oquendo; MD Candace Bustillos Signed EMERGENCY DEPARTMENT Observed: 01/18/2018 Status: F Source: [place] SUMMARY 12:54 AM [facility] Medical Records Department [address] [place] [id number] Emergency Department Summary 01/17/18 2336 MR#: [id number] Acct: [id number] Name: ANTHONY JUNG Rep #: [id number] : 1960 57 From: El Bustillos MD PCP: Berna Oquendo Status: REG ER - ER Visit Summary Date of Service: 01/17/18 Chief Complaint: [] Near syncope at home after taking blood pressure medicines History of Present Illness: The patient is a 57 M [] history of having a implantable defibrillator placed 1 week ago he was doing fine today he sat down had dinner took his blood pressure medicines this evening and then he felt very dizzy near syncope per medics were called his blood pressure was 70 he was given fluid and improved to 110 arrival to the emergency department about 105. He has no complaints of head neck chest or abdominal pain however he does report the pacemaker insertion site is still slightly sore he has had no fever no cough no anginal chest pain of any kind. He is eating and drinking well. His pacemaker did not fire, his insertion was unremarkable. He is having no vomiting fever or diarrhea, he believes he may have had an MO about 1 year ago he seen by Dr. Tirado Physical Examination: [] His current blood pressure is 88 over palp is resting comfortably bed with no complaints his heart rate is 80 afebrile his pacer pocket is slightly tender but there is no signs of drainage or warmth or infection his HEENT exam is unremarkable his lungs are clear his heart tones are unremarkable abdomen soft nontender he is awake alert moving all 4 extremities he has no complaints of delays in the bed. His EKG shows a sinus rhythm there is diffuse T-wave abnormalities in the lateral and anterior leads are present on previous EKG Test Results: [] Emergency Department Course and Treatment: [] He is absolutely sure he was not sick until he took his blood pressure medicines as above he states he feels fine right now he is not dizzy having no symptoms right IV fluids screening labs EKG discuss case with music coordinator Did have a nuclear cardiac stress test that showed no ischemia in November 2017 Studies are all generally unremarkable his hemoglobin is 10.5 it is actually improvement, he has a chronic troponin of 0.08 that is not new his EKG shows no new changes on reevaluation after liter of fluid his blood pressure is 120/80 I stood him he walked around the bed he felt fine he discussed inpatient versus outpatient management he does not wish to be admitted he indicates he has an appointment to see Dr. Tirado tomorrow morning, we spoke with Dr. Cardozo on-call for cardiology discussed with him in detail no further instructions Treatment Plan: [] Disposition: [] Stable home patient declined admission Impression: [] Hypotension after taking blood pressure medicine, recent implantation of cardiac defibrillator This note was generated with [employer] dictation software. It may contain incorrect words, spelling, and punctuation that were not noted in review of the chart prior to signing ED Disposition - Plan for ED Patient: Chief Complaint: Syncope Referrals: Town Doctor,Out of [NON-STAFF] - What to do if you have Problems For any increased pain, shortness of breath, bleeding, nausea or vomiting, chest pain, or any unexpected problems, contact your Primary Care Provider. Call [facility] ([phone]) or report to the closest Emergency Room. Call 911 if necessary. 01/18/18 0054 <Electronically signed by El Bustillos MD> Date El Bustillos MD Cosigner Signature (If Indicated): Date CC: Berna Oquendo DISCHARGE INSTRUCTION Observed: 01/18/2018 Status: F Source: JI 12:42 AM [facility] REPOSIT[facility] Medical Records Department [address] [place] [address] Discharge Instruction 01/18/1840 MR#: [id number] Acct: [id number] Name: ANTHONY JUNG Rep #: [id number] : 1960 57 From: El Bustillos MD PCP: Berna Oquendo Status: REG ER ED Disposition - Plan for ED Patient: Chief Complaint: Syncope Instructions: ED Hypotension Orthostatic Referrals: [facility] Doctor,Out of [NON-STAFF] - Bradford Tirado MD [STAFF PHYSICIAN] - What to do if you have Problems For any increased pain, shortness of breath, bleeding, nausea or vomiting, chest pain, or any unexpected problems, contact your Primary Care Provider. Call [facility] ([phone]) or report to the closest Emergency Room. Call 911 if necessary. 01/18/1841 <Electronically signed by El Bustillos MD> Date El Flores Signature (If Indicated): Date CC: Berna Oquendo CHEST 1 VIEW Observed: 01/17/2018 Status: F Source: JI (PORTABLE) 11:36 PM [facility] Imaging Services [address] [place] [address] Chest 1 View (Portable) MR#: [id number] Acct: [id number] Name: ANTHONY JUNG Rep #: [id number] : 1960 M 57 From: Heide Murphy MD PCP: OUT OF TOWN DOCTOR Status: PRE ER Study: Chest 1 View (Portable) Date of Exam: 01/17/18 Exam# [id number] Ordering Dr: El Bustillos MD XR Chest 1 View INDICATION: NEAR SYNCOPAL EPISODE AT HOME COMPARISON: January 11, 2018 TECHNIQUE: Portable chest x-ray FINDINGS: Cardiac pacemaker/AICD is in stable position with battery pack over the left chest. Heart size remains mildly enlarged. Mild bibasilar atelectasis are seen, lungs are otherwise clear. Osseous structures are grossly unremarkable. RAD/Chest 1 View (Portable) IMPRESSION: Mild bibasilar atelectasis, lungs are otherwise clear. Cardiac pacemaker/AICD in place. at 0025 Reported and signed by: Heide Murphy MD Electronically Signed: Heide Murphy MD at 0:23 EDT Tel , Service support , CC: MD Candace Bustillos; OUT OF TOWN DOCTOR Entry Level Software Engineer: Signed CBC W/DIFF, AUTOMATED Collected: 01/17/2018 Status: F Source: [place] 11:30 PM [facility] REPOS[facility] TYPE CODE TESTS RESULT OUT OF RANGE REFERENCE UNITS LAB L100.1000 4.4-11.0 K/mm3 Normal WBC 9.5 LAB L100.1200 4.6-6.2 M/mm3 Low RBC 4.40 LAB L100.1300 13.0-16.5 g/dl Low HGB 10.5 LAB L100.1400 40-54 % Low HCT 33.9 LAB L100.1500 80-94 fL Low MCV 77.0 LAB L100.1600 27.0-32.0 pg Low MCH 23.9 LAB L100.1700 32-36 g/gl Low MCHC 31.0 LAB L100.1810 11.6-14.6 % High RDW CV 23.4 LAB L100.1820 35.1-43.9 fl High RDW SD 64.5 LAB L100.1900 150-450 K/mm3 Normal PLT 236 LAB L100.2000 6.2-12.0 fl Normal MPV 8.8 LAB L100.2100 47-70 % Normal NEUT% 64.8 LAB L100.2200 19-41 % Low LY% 18.7 LAB L100.2300 0-10 % High MONO% 12.6 LAB L100.2400 0-5 % Normal EO% 2.5 LAB L100.2500 0-1 % Normal BASO% 0.6 LAB L100.2550 0.0-0.9 % Normal IM GRAN % 0.800 Result Comment: IG% - Immature Granulocytes (promyelocytes, myelocytes and metamyelocytes) > 1% indicates that a LEFT SHIFT is Present. LAB L100.2620 2.0-7.7 X10 3/uL Absolute Neut Normal 6.2 LAB L100.2720 0.83-4.51 X10 3/ul Absolute Lymph Normal 1.78 LAB L100.4500 SMEAR COMMENT Normal SCANNED LAB L100.7300 ANISO Normal 2+ LAB L100.7600 HYPOCHROMASIA Normal 1+ LAB L100.8200 OVALOCYTE Normal 1+ Performed By: #### L100.0100 #### [facility] [address] [place], [place], [address] BASIC METABOLIC Collected: 01/17/2018 Status: F Source: [place] PROFILE (BMP) 11:30 PM [facility] REPOSITORY Order Comment: 'TROP' Serial specimen #1, #2, #3, or #4: 1 TYPE CODE TESTS RESULT OUT OF RANGE REFERENCE UNITS LAB L501.0100 74-106 mg/dL Low GLU 72 Result Comment: Please note revised GLUCOSE reference range effective 2017. LAB L501.1000 7-18 mg/dL High BUN 29 LAB L501.1100 0.70-1.30 mg/dL Normal CREAT,SERUM 1.08 Result Comment: The validity of the calculated GFR AND GFRAA in patients over 70 years has not been determined. Clinical correlation is essential. LAB L501.1110 >60 mL/min Normal EST GFR 74 Result Comment: Non- GFR Calc LAB L501.1115 >60 mL/min Normal EST GFR - AA 90 Result Comment: GFR Calc LAB L501.1255 ml/min Normal Estimated CRCL 71.25 LAB L501.1300 10-20 RATIO High BUN/CRE 26.9 LAB L501.2200 8.5-10 mg/dL Normal .1 CA 8.9 LAB L501.5300 136-14 mmol/L Normal 5 NA 137 LAB L501.5600 3.5-5. mmol/L Normal 1 K 4.5 LAB L501.5900 98-107 mmol/L Normal CL 102 LAB L501.6100 21.0-3 mmol/L Normal 2.0 CO2 29.0 LAB L501.6200 5-15 Normal GAP 6 Performed By: #### L500.2500, L501.4010 #### [facility] [address] [place], [place], [address] TROPONIN-I Collected: 01/17/2018 Status: F Source: [place] 11:30 PM [facility] REPOS[facility] Order Comment: 'TROP' Serial specimen #1, #2, #3, or #4: 1 TYPE CODE TESTS RESULT OUT OF RANGE REFERENCE UNITS LAB L501.4010 <0.06 ng/mL High 0.08 TROPONIN-I Result Comment: TROPONIN-I EXPECTED VALUES <0.05 NEGATIVE 0.06 - 0.59 AT RISK OF MO > OR = 0.60 SUGGEST MO Performed By: #### L500.2500, L501.4010 #### [facility] [address] [place], [place], [id number] BNP,B-TYPE NATRIURETIC Collected: 01/17/2018 Status: F Source: [place] PEPTIDE 11:30 PM [facility] REPOSIT[facility] TYPE CODE TESTS RESULT OUT OF RANGE REFERENCE UNITS LAB L503.6620 0-100 pg/mL High B-TYPE 182.2 HENRY PEP Performed By: #### L503.6620 #### [facility] [address] [place], [address] CHEST 1 VIEW Observed: 01/11/2018 Status: F Source: JI 7:10 AM [facility] REPOSIT[facility] Imaging Services [address] [address] Chest 1 View MR#: [id number] Acct: [id number] Name: ANTHONY JUNG Rep #: [id number] : 1960 M 57 From: Darrick Coreas MD PCP: Care Physician, No Primary Status: [facility] Study: Chest 1 View Date of Exam: 01/11/18 Exam# [id number] Ordering Dr: Bradford Tirado MD STUDY: X-RAY CHEST REASON FOR EXAM: Male, 57 years old. Pacemaker placement. TECHNIQUE: Single PA expiration view of the chest. COMPARISON: Comparison is made with prior examination done earlier today. FINDINGS: EKG lead projects are seen. Increased markings at the lung bases worse on the right side suggestive bibasilar atelectasis. There is no evidence of pneumothorax. The patient is status post left sided unipolar pacemaker placement. RAD/Chest 1 View IMPRESSION: No enhancing pneumothorax following placement of the left unipolar pacemaker. Electronically Signed: Darrick Coreas MD at 10:58 EDT Tel [phone], Service support , CC: No Primary Care Physician; Bradford Tirado MD Entry Level Software Engineer: Signed BASIC METABOLIC Collected: 01/11/2018 Status: F Source: JI PROFILE (BMP) 6:30 AM [facility] REPOS[facility] TYPE CODE TESTS RESULT OUT OF RANGE REFERENCE UNITS LAB L501.0100 74-106 mg/dL Normal GLU 93 Result Comment: Please note revised GLUCOSE reference range effective 2017. LAB L501.1000 7-18 mg/dL Normal BUN 18 LAB L501.1100 0.70-1.30 mg/dL Low CREAT,SERUM 0.63 Result Comment: The validity of the calculated GFR AND GFRAA in patients over 70 years has not been determined. Clinical correlation is essential. LAB L501.1110 >60 mL/min Normal EST GFR 139 Result Comment: Non- GFR Calc LAB L501.1115 >60 mL/min Normal EST GFR - AA 168 Result Comment: GFR Calc LAB L501.1255 ml/min Normal Estimated CRCL 122.14 LAB L501.1300 10-20 RATIO High BUN/CRE 28.6 LAB L501.2200 8.5-10 mg/dL Low .1 CA 8.4 LAB L501.5300 136-14 mmol/L 5 NA Normal 140 LAB L501.5600 3.5-5. mmol/L 1 K Normal 4.3 LAB L501.5900 98-107 mmol/L CL Normal 106 LAB L501.6100 21.0-3 mmol/L 2.0 CO2 Normal 26.0 LAB L501.6200 5-15 GAP Normal 8 Performed By: #### L500.2500 #### [facility] [address] [place], [address] CHEST PA AND LATERAL Observed: 01/11/2018 Status: F Source: [place] 12:01 AM [facility]POS[facility] Imaging Services [address] [place] [address] Chest PA and Lateral MR#: [id number] Acct: [id number] Name: ANTHONY JUNG Rep #: [id number] : 1960 M 57 From: Darrick Coreas MD PCP: Care Physician, No Primary Status: [facility] [place] Study: Chest PA and Lateral Date of Exam: 01/11/18 Exam# [id number] Ordering Dr: Damien Duong MD STUDY: X-RAY CHEST REASON FOR EXAM: Male, 57 years old. Pacemaker insertion. TECHNIQUE: AP and lateral views of the chest. COMPARISON: Comparison is made with prior study dated December 17, 2017. FINDINGS: A left-sided unipolar pacemaker is seen. The tip is in the right ventricle. Mild elevation of the right hemidiaphragm. Increased linear markings at the lung bases slightly more pronounced on the right side suggests above. Bibasilar atelectasis. There is no demonstrated pleural abnormality. There is mild cardiac enlargement. Normal mediastinum and alberto. Normal visualized pulmonary arteries. There is atherosclerotic calcification of the aortic arch with tortuosity. Normal visualized thoracic spine. Normal visualized ribs, clavicles, and shoulders. There is no demonstrated abnormality of the visualized soft tissue structures of the upper abdomen. RAD/Chest PA and Lateral IMPRESSION: Status post left unipolar pacemaker insertion. Findings suggest a mild linear atelectasis at the lung bases. Electronically Signed: Darrikc Coreas MD at 8:15 EDT Tel [phone], Service support , CC: No Primary Care Physician; Damien Duong MD Entry Level Software Engineer: Signed OPERATIVE REPORT Observed: 01/10/2018 Status: F Source: [place] 1:28 PM [facility] Medical Records Department [address] [place] [address] Operative Report 01/10/18 1326 MR#: [id number] Acct: [id number] Name: WAYNE GAMBLESeunANTHONY Raffi Rep #: [id number] : 1960 57 From: Damien Duong MD PCP: Care Physician, No Primary Status: [facility] Y Location: [facility] Operative Report Date of Procedure: 01/10/18 Preoperative diagnosis implantation of [ Primary prevention ICD for nonischemic Cardiomyopathy with EF 20%] Postoperative diagnosis same as above After informed consent and IV antibiotics the patient was brought to the [facility]ization laboratory. The left side of the chest was prepped and draped in the usual sterile manner. The patient was sedated with intermittent boluses of IV Versed fentanyl and propofol as well as subcutaneous 1% lidocaine. An incision was made inferior to the clavicle to accommodate the size of the hardware device. The pocket was created using blunt and Bovie dissection. Hemostasis was obtained. Using the Seldinger technique the axillary vein was cannulated once and a guidewire was advanced under fluoroscopic guidance. Over the guidewire a sheath was advanced. Through this sheath, the electrode was positioned under fluoroscopic guidance into the right ventricle and was actively fixated. Once actively fixated, the lead was tested to check for proper sensing, capture threshold, impedance and to exclude diaphragmatic stimulation. Once the lead was implanted and all electrical parameters were confirmed to be functioning normally with appropriate values, the leads was then sutured to the pectoralis muscle with 2-0 silk on the Silastic collar 2. The sponge and needle count were correct. Hemostasis was obtained. Antibiotic solution was used to flush the pocket. The new device was brought to the field. The lead was placed in the appropriate position of the header of the device and were secured by the setscrews and confirmed by the tug test. The device and the leads were then placed in the pocket. Pocket was closed with a deep layer of running 2-0 Vicryl, superficial layer of running 4-0 Vicryl and skin with Steri-Strips that were covered with a rolled 4 x 4's and Tegaderm. The patient left the lab with the device programmed to chronic parameters. There were no complications. The implanted device is a VVI ICD [employer] Lead and device serial and model numbers are available in the chart documents provided by the device company insurance account representative procedure summary. 01/10/18 1328 <Electronically signed by Damien Duong MD> Date Damien Duong MD CC: No Primary Care Physician; Bradford Tirado MD; Damien Duong MD Signed PACEMAKER CHECK Observed: 01/09/2018 Status: F Source: [place] 3:23 PM [facility] REPOS[facility] [address] [place] [address] Pacemaker Check Date of Service: 01/04/18 1512 MR#: [id number] Acct: [id number] Name: ANTHONY JUNG Rep #: [id number] : 1960 From: Анна Vee Age/Sex: 57/M Location: [facility] Status: Signed Comments Summary Comments: ICD implant teaching, written and verbal, instructions given to patient and brother, Angel, All questions answere, Device Device Date Interviewed: 01/04/18 Follow-up Location: in office Patient Characteristics Ejection fraction %: 15 to 19 By: Echo Assessment AND Plan Orders Orders: 01/04/18 1527 <Electronically signed by Анна Vee > Date Анна Vee 01/09/18 1523<Electronically signed by Bradford Tirado MD> Cosigner Signature: Date (if applicable) Bradford Tirado MD CC: URINALYSIS, COMPLETE Collected: 01/04/2018 Status: F Source: [place]I 2:46 PM [facility] RE[facility] Order Comment: Comments: clean catch Comments: clean catch How was Urine Obtained? [facility] TO SPECIFY TYPE CODE TESTS RESULT OUT OF RANGE REFERENCE UNITS LAB L400.3000 Yellow COLOR Normal Yellow LAB L400.3050 Clear Normal CLARITY Sl. Cloudy LAB L400.3200 Normal mg/dl Normal GLUCOSE, UR Normal LAB L400.3300 Negative mg/dL Normal BILIRUBIN URINE Negative LAB L400.3400 Negative mg/dl Normal KETONE UR Negative LAB L400.3465 1.002-1.030 Normal SP.GR. DIPSTX 1.020 LAB L400.3550 5.0 - 8.0 pH UR Normal 6.0 LAB L400.3600 Negative mg/dl PROT Normal DIPSTX Negative LAB L400.3700 Normal mg/dl Normal UROBILI Normal LAB L400.3750 Negative Normal NITRITE UR Negative LAB L400.3780 Negative /ul Normal OCCULT BLOOD-UR Negative LAB L400.3800 Negative /ul LEUK Normal ESTERASE Negative LAB L400.4050 0-5 /hpf WBC 0 Normal SEEN LAB L400.4100 0-5 /hpf 0 Normal RBC-UA SEEN LAB L400.4150 0-5 /hpf SQUAM 0 Normal EPI SEEN LAB L400.4300 None Seen /hpf 0 Normal BACTERIA SEEN LAB L400.4350 <or=2+ /hpf 0 Normal MUCUS, URINE SEEN LAB L400.4900 1+ Normal AMORPHOUS Performed By: #### L400.0001, L300.3900, L500.2500 #### [facility] [address] [place], [address] PROTHROMBIN TIME W/INR Collected: 01/04/2018 Status: F Source: [place] 2:46 PM [facility] TYPE CODE TESTS RESULT OUT OF RANGE REFERENCE UNITS LAB L300.4150 11.7-14.9 SECONDS High PROTIME 15.2 LAB L300.4200 Normal INR 1.2 Performed By: #### L400.0001, L300.3900, L500.2500 #### [facility] [address] [facility] [place], [address] BASIC METABOLIC Collected: 01/04/2018 Status: F Source: [place] PROFILE (BMP) 2:46 PM [facility] Order Comment: Comments: clean catch TYPE CODE TESTS RESULT OUT OF RANGE REFERENCE UNITS LAB L501.0100 74-106 mg/dL Low GLU 73 Result Comment: Please note revised GLUCOSE reference range effective 2017. LAB L501.1000 7-18 mg/dL High BUN 24 LAB L501.1100 0.70-1.30 mg/dL Normal CREAT,SERUM 0.70 Result Comment: The validity of the calculated GFR AND GFRAA in patients over 70 years has not been determined. Clinical correlation is essential. LAB L501.1110 >60 mL/min Normal EST GFR 122 Result Comment: Non- GFR Calc LAB L501.1115 >60 mL/min Normal EST GFR - AA 147 Result Comment: GFR Calc LAB L501.1300 10-20 RATIO High BUN/CRE 34.1 LAB L501.2200 8.5-10.1 mg/dL CA Normal 8.7 LAB L501.5300 136-145 mmol/L NA Normal 138 LAB L501.5600 3.5-5.1 mmol/L K Normal 4.6 LAB L501.5900 98-107 mmol/L CL Normal 101 LAB L501.6100 21.0-32.0 mmol/L Normal CO2 29.0 LAB L501.6200 5-15 Normal GAP 8 Performed By: #### L400.0001, L300.3900, L500.2500 #### [facility] [address] [place], [address] CBC-COMPLETE BLOOD CNT Collected: 01/04/2018 Status: C Source: [place] NO DIFF 2:46 PM [facility] TYPE CODE TESTS RESULT OUT OF RANGE REFERENCE UNITS LAB L100.1000 4.4-11.0 K/mm3 Normal WBC 8.2 Result Comment: ANISOCYTOSIS=1+ MICROCYTOSIS=1+ HYPOCHROMASIA= RARE LAB L100.1200 4.6-6.2 M/mm3 Low RBC 4.13 LAB L100.1300 13.0-16.5 g/dl Low HGB 9.4 LAB L100.1400 40-54 % Low HCT 31.3 LAB L100.1500 80-94 fL Low MCV 75.8 LAB L100.1600 27.0-32.0 pg Low MCH 22.8 LAB L100.1700 32-36 g/gl Low MCHC 30.0 LAB L100.1810 11.6-14.6 % High RDW 20.9 CV LAB L100.1820 35.1-43.9 fl High RDW 54.9 SD LAB L100.1900 150-450 K/mm3 Normal PLT 392 LAB L100.2000 6.2-12.0 fl Normal MPV 8.4 Performed By: #### L100.0500 #### [facility] [address] [place], [address] STRESS REPORT Observed: 12/25/2017 Status: F Source: [place] 4:29 PM [facility]IT[facility] Cardiovascular Services [address] [place] [address] MR#: [id number] Acct: [id number] Name: WAYNE GAMBLESeunANTHONY Rep #: [id number] : 1960 57 From: Martin Covarrubias MD Primary Care: Care Physician, No Primary Status: REG CLI Ordering Dr: Kurt: Ludin Gentile Stress Test Report Pharmacologic myocardial perfusion stress test. 57-year-old man with a history of cardiomyopathy and coronary artery disease. Stress protocol: Resting EKG demonstrates sinus tachycardia with a rate of [address]-T wave changes noted. Resting blood pressure is 132/84 mmHg. 0.4 mg regadenoson was infused per usual protocol followed by Intravenous and flush injection. Continuous EKG monitoring was performed. Patient maintained sinus rhythm throughout the recording. The maximum heart rate attained was 190 bpm was 67% maximum predicted heart rate the maximum workload attained was 1 metabolic equivalent. At rest there were no ST or T-wave changes noted suggest ischemia nonspecific ST changes were noted. At peak infusion nonspecific ST-T wave changes were present. Resting blood pressure is 132/84 final blood pressure of 138/84. Myocardial perfusion protocol. 11.2 mCi of technetium 99m sestamibi was injected at rest. 0.4 mg regadenoson was infused per usual protocol. Peak infusion 32.5 mCi of technetium 99m sestamibi was injected stress images were obtained stress and rest images were reconstructed and compared in the short axis vertical long and horizontal long axis. Gated images were also obtained. Perfusion SPECT analysis: Review of the stress images demonstrated dilated cardiac silhouette size. There is a medium-sized defect noted involving the mid anterior wall to distal anterior wall and apex. There is also a small perfusion defect noted in the mid septum. The lateral wall and inferior wall appeared to be well perfused. This appears to be present on the stress and resting images to a similar extent. The above is suggestive of a previous mid to distal anterior wall infarct and apical infarct and mid septal infarct. No ischemia is noted. Gated SPECT analysis. The left ventricle is dilated the gated ejection fraction is 24% with segmental wall motion abnormalities involving the anterior apex. Conclusion: Cardiomyopathy. No ischemia present. Previous mid to distal anterior infarct Apical infarct Small septal infarct 12/25/179 <Electronically signed by Martin Covarrubias MD> Date Martin Covarrubias MD CC: No Primary Care Physician; Bradford Tirado MD Date Dictated: 12/25/17 162 Date Transcribed: 12/25/171621 Entry Level Software Engineer: [place] Signed CARDIOLOGY VISIT Observed: 12/20/2017 Status: F Source: [place] REPORT 1:36 PM [facility] RE[facility] [address] [place] [address] OFFICE VISIT Date of Service: 12/20/17 MR#: [id number] Acct: [id number] Name: ANTHONY JUNG Rep #: [id number] : 1960 Provider: Bradford Tirado MD Age/Sex: 57/M Location: [facility] Status: Signed HPI HPI Chief Complaint: Routine follow-up for ischemic cardiomyopathy Details: ANTHONY JUNG, is a 57 nondiabetic with a history of hypertension, hypercholesterolemia, coronary artery disease and ischemic cardiomyopathy with an ejection fraction between 15-20%, COPD, and ongoing tobacco abuse. The patient was admitted to [facility] with respiratory distress requiring emergent intubation. He was intubated for approximately 24 hours, and an echocardiogram demonstrated severe LV dysfunction. Patient was eventually extubated, underwent repeat left heart catheterization by myself, which demonstrated widely patent stents, and a questionable disease in his right coronary artery. Patient was discharged home and then returned with lightheadedness and dizziness, his medicines were adjusted and he is here in follow-up. The patient denies any chest pain, angina, shortness of breath or dyspnea on exertion. He does complain of mild positional lightheadedness and dizziness. He is continuing to smoke, but reports he is compliant with his medications. In our office today's blood pressure is 82/50, and pulse is 96 and regular. His physical exam demonstrates clear lungs but distant breath sounds bilaterally, regular rate and rhythm, normal S1/S2, no edema is noted. Intake Vital Signs12/20/17 Height 5 ft 8 in Intake Visit Reasons: s/p [facility] Allergies No Known Allergies Allergy (Verified 12/16/17 23:10) Medications Acetaminophen [Tylenol Tablet] 650 mg PO Q6H PRN PRN #0 tab 09/26/16 [Rx Confirmed 12/20/17] Albuterol Aerosols [Ventolin Aerosols] 2.5 mg INHALATION Q2H PRN PRN #30 vial.neb. 09/26/16 [Rx Confirmed 12/20/17] Albuterol Sulfate [Ventolin Hfa] 18 gm IH Q4H PRN PRN #1 hfa.aer.ad 09/26/16 [Rx Confirmed 12/20/17] Clopidogrel Bisulfate [Plavix] 75 mg PO DAILY #30 tab 09/26/16 [Rx Confirmed 12/20/17] Potassium Chloride [K-Dur] 20 meq PO DAILY #30 tab 12/07/17 [Rx Confirmed 12/20/17] Linezolid [Zyvox] 600 mg PO Q12H #12 tab 12/13/17 [Rx Confirmed 12/20/17] Ascorbic Acid [Vitamin C] 500 mg PO BIDCM #60 tab 12/14/17 [Rx Confirmed 12/20/17] Aspirin [Aspirin, Baby] 81 mg PO DAILY@0800 #30 tab.chew 12/14/17 [Rx Confirmed 12/20/17] Atorvastatin Calcium [Lipitor] 80 mg PO QHS #30 tab 12/14/17 [Rx Confirmed 12/20/17] Carvedilol [Coreg (Beta Emani)] 6.25 mg PO BID #60 tab 12/14/17 [Rx Confirmed 12/20/17] Ferrous Gluconate 325 mg PO BIDCM #60 tab 12/14/17 [Rx Confirmed 12/20/17] Gabapentin [Neurontin] 600 mg PO DAILY #30 tab 12/14/17 [Rx Confirmed 12/20/17] Hydrocodone/Acetaminophen [Vicodin 5-300 mg Tablet] 1 tab PO Q4H PRN PRN 7 Days #20 tab 12/14/17 [Rx Confirmed 12/20/17] Nitroglycerin [Nitrostat] 0.4 mg SUBLINGUAL Q5M PRN #1 bottle 12/14/17 [Rx Confirmed 12/20/17] Prednisone 40 mg PO DAILY #10 tab 12/14/17 [Rx Confirmed 12/20/17] Furosemide [Lasix] 40 mg PO DAILY #30 tab 12/18/17 [Rx Confirmed 12/20/17] Isosorbide Mononitrate [Imdur] 30 mg PO DAILY #30 tab 12/18/17 [Rx Confirmed 12/20/17] Losartan Potassium [Cozaar] 25 mg PO DAILY #30 tab 12/18/17 [Rx Confirmed 12/20/17] PFSH Medical History Atherosclerosis of coronary artery of [place] heart without angina pectoris (Acute) Iron deficiency anemia (Chronic) NSVT (nonsustained ventricular tachycardia) (Acute) COPD (chronic obstructive pulmonary disease) (Chronic) Tobacco abuse (Chronic) Medical non-compliance (Chronic) Ischemic cardiomyopathy (Chronic) Acute on chronic systolic (congestive) heart failure (Acute) Surgical History History of coronary artery stent placement (Acute) History of left heart catheterization (Acute 12/14/17) Family History Father CAD (coronary artery disease) Mother CAD (coronary artery disease) Social History Smoking Status: Current every day smoker ROS Const Const: Positive for fatigue, weakness and weight gain; negative for headache(s), body ache, fever(s), chills, difficulty sleeping, increased appetite, weight loss, daytime sleepiness, night sweats, frequent falls, excessive sweating, poor appetite or anorexia Eyes Eyes: Negative for loss of peripheral vision, transient loss of vision or blurry vision ENT ENT: Positive for balance problems; negative for headache(s), dizziness or Nosebleed/epistaxis Cardio Chest Pain: No Edema: None Muscle aches with walking: None Resp Respiratory: Positive for SOB with activity, SOB at rest, SOB orthopnea\SOB lying down and other (Diminished T/O); negative for Cough, pain on inspiration, chest congestion, Coughing up blood/hemoptysis, snoring, stridor, wheezing, crackles or paroxysmal nocturnal dyspnea GI GI: Negative nausea or heartburn : Negative for hematuria Musc Musc: Positive for joint pain (RLE ankle pain. States he fell on the ice.) and balance problems; negative for muscle aches/ myalgia or muscle weakness Skin Skin: Negative non-healing lesions, unusual bruising or rash Neuro Neuro: Positive for weakness, lightheadedness and lack of coordination; negative for blurry vision, headache(s), dizziness or frequent falls Filiebrto Hematologic/Lymphatic: Negative for easy bruising Endo Endo: Positive for fatigue; negative for excessive sweating Psych Psych: Negative for anxiety or depression Allergy Allergy/Immunology: Negative for hives, Negative for rash Cardiology Exam Const Appearance: cooperative, healthy appearing and no acute distress Nutritional Appearance: well nourished Orientation: alert, oriented x3 and oriented to person Head Head: normal to inspection, atraumatic and normocephalic Nose: external nose normal Face and Sinus: face symmetric Mouth: oral mucosae normal Eyes General: appearance normal, both eyes and all related structures Eyelids: eyelids normal Conjunctivae: conjunctivae normal Pupils: PERRL and normal by confrontation EOM: EOM intact bilaterally Neck Neck: normal visual inspection and full ROM Carotids: normal carotid upstroke Chest Chest inspection: normal inspection of the chest Auscultation: Bilateral: Clear to Auscultation Cardio Palpation: normal PMI Rate: regular rate Rhythm: regular rhythm Heart sounds: S1 normal and S2 normal GI GI: normal to inspection, no hepatosplenomegaly and bowel sounds present Neuro General: alert, oriented x3, awake, CN's II-XI intact bilaterally and moves all extremities Skin Skin: no rashes or lesions noted Extremities Pulses: Normal: Right Femoral Pulse, Left Femoral Pulse, Right Dorsalis Pedis Pulse, Left Dorsalis Pedis Pulse, Right Posterior Tibial Pulse, Left Posterior Tibial Pulse, Right Radial Pulse, Left Radial Pulse Lower Extremity Edema: None: Bilateral Psych Psychological: normal affect Assessment AND Plan 1. Ischemic cardiomyopathy I25.5 Plan 1. Ischemic cardiomyopathy: The patient underwent elective left heart catheterization which demonstrated widely patent stents but a questionable area in the right coronary artery. Given his ischemic cardiomyopathy, and need for cardiac rehab to assess whether his LV function improves prior to AICD placement, I recommend that he undergo a walking nuclear stress test to evaluate for inferior ischemia. If this is grossly abnormal for ischemia, I would recommend returning to the [facility] for elective PCI of the right coronary artery territory. If it is negative he will then be admitted into cardiac rehab where he will reside for 3 months at which time we will repeat his echocardiogram to determine if his LV function has improved. If his EF is still less than 35%, I would recommend a AICD placement. In the meantime he will have his LifeVest replaced until we can reevaluate his LV function. In addition he will continue his baby aspirin, Coreg, Plavix, we will decrease his losartan to 12.5 mg p.o. twice daily, and continue his Imdur 30 mg a day as well as his Lasix. Orders Orders: 2. Atherosclerosis of coronary artery of [place] heart without angina pectoris I25.10 CORONARY ANGIOGRAPHY DOMINANCE: Right Dominant LEFT HEART ASSESSMENT Left Ventricular Ejection Fraction: by LV Gram 10-15 % Global Hypokinesis - Severe Depressed Left Ventricular systolic function Normal Left Ventricular End Diastolic Pressure LEFT MAIN: Non-obstructive LEFT ANTERIOR DECENDING ARTERY: Previously placed stent is patent DIAGONAL 1: Ostial - Mild luminal irregularities less than 30% DIAGONAL 2: Proximal - Non-obstructive CIRCUMFLEX ARTERY: MID CIRC: Previously placed stent is patent RIGHT CORONARY ARTERY: MID RCA: Previously placed stent has instent 20 % restenosis with a new at distal edge of stent Plan 2. Coronary artery disease: No exertional anginal symptoms at this time. The patient had a slight non-STEMI during his event, and is a questionable lesion in his right coronary artery which needs to be evaluated with a stress test in the near future. Continue baby aspirin, Plavix and Coreg. 3. Hyperlipidemia: Recommend repeat lipid profile after cardiac rehab is been completed. Continue Lipitor. 4. Return office in 3 month This note was generated using a voice recognition system and there may be incorrect words, spelling or punctuation that were not noted when reviewing the office note prior to saving. Orders Orders: Plan Detail Other Orders Orders: Follow Up +3m (Obdulio) Coding Level of Care Code Off vis,est,level 3 Diagnoses Ischemic cardiomyopathy I25.5 Atherosclerosis of coronary artery of [place] heart without angina pectoris I25.10 Coding Level of Care Code Off vis,est,level 3 Diagnoses Ischemic cardiomyopathy I25.5 Atherosclerosis of coronary artery of [place] heart without angina pectoris I25.10 12/20/17 1336 <Electronically signed by Bradford Tirado MD> Date Bradford Tirado MD Cosigner Signature: Date (if applicable) CC: DISCHARGE SUMMARY Observed: 12/18/2017 Status: F Source: JI 3:29 PM [facility] Medical Records Department [address] [place] [address] Discharge Summary 12/18/17 1519 MR#: [id number] Acct: [id number] Name: ANTHONY JUNG Rep #: [id number] : 1960 57 From: Mary Michel MD PCP: Care Physician, No Primary Status: DIS KEITH Y Location: ICU ICU05-1 Discharge Date and Diagnosis Date of Admission: 12/17/17 Date of Discharge: 12/18/17 - Primary Discharge Diagnosis #1 near syncopal episode. #2 hypertension, attributed to multiple antihypertensive medications that patient was started on recently. #3 indeterminate troponin, chronic. #4 recent history of MRSA healthcare associated pneumonia, continued on linezolid. - Secondary Discharge Diagnosis Chronic Problems Iron deficiency anemia (Chronic) CAD (coronary artery disease) (Chronic) COPD (chronic obstructive pulmonary disease) (Chronic) Tobacco abuse (Chronic) Medical non-compliance (Chronic) Ischemic cardiomyopathy (Chronic) Hospital Course and Treatment Imaging Results: Clinical Impression(s) from Imaging Studies Chest X-Ray 12/16/17 23:47 IMPRESSION: COPD. Mild cardiomegaly. No evidence for acute cardiopulmonary pathology. Electronically Signed: Trey Roman MD at 0:21 EDT , Service support , Operations: None Procedures: None Summary of Care Provided: Patient seen and examined on the day of discharge and appeared to be stable to be discharged home. He denies any more symptoms, no more dizziness or lightheadedness. Denied chest pain or shortness of breath. This morning, I received 1 dose of Lasix 40 mg and losartan 25 mg. Repeat orthostatic vitals this morning was unremarkable and patient was asymptomatic. - Physical Exam General: Alert, Oriented x3, Cooperative, No apparent distress. HEENT: Atraumatic, PERRLA, EOMI. Neck: Supple, No JVD, Negative Carotid Bruits, Trachea Midline, Thyroid Normal. Lungs: Decreased breath sounds bilateral, No rhonchi, No wheeze, No rales. Cardiovascular: Regular rate, Regular Rhythm, Normal S1, Normal S2, PMI Normal. Abdomen: Bowel Sounds Present, Soft, Non Tender, Non-Distended, No Hepato-splenomegaly. Extremities: No clubbing, No cyanosis, No edema Skin: No rashes, No breakdown Neurological: Neuro grossly intact Vital Signs are stable. Hospital course: The patient is a 57 year old M admitted because of near syncopal episode and hypotension. Patient was discharged from the hospital 2 days before this admission and he was admitted for acute respiratory failure that required intubation and mechanical ventilation which was secondary to acute and chronic CHF, COPD exacerbation and MRSA healthcare associated pneumonia. He was discharged on increased dose of Lasix, increased dose of losartan, discharged on isosorbide mononitrate 60 mg p.o. twice daily and also started on Aldactone. The patient came back 2 days after discharge because of near syncopal episode and hypotension. He was treated with IV fluids and those medications help. His blood pressure did improve. He was found to have indeterminate troponin which was same as the previous admission without any changes. Serial cardiac enzymes done and his troponin came down to normal. His EKG showed no acute ST elevation. On the day of discharge, Lasix and losartan was reintroduced and patient's blood pressure remained stable. His repeat orthostatic vitals today were normal. Patient discharged home in a stable medical condition, dose of Lasix decreased down from 40 mg p.o. twice daily down to 40 mg p.o. daily, dose of losartan decreased down from 50 mg p.o. daily down to 25 mg p.o. daily, isosorbide mononitrate was changed from 60 mg p.o. twice daily down to 30 mg p.o. in the evening, Aldactone discontinued, continued on linezolid for recent history of MRSA healthcare associated pneumonia, continued on prednisone that was discharged on during the last admission to complete 10 days of treatment, continued on other home medications without any changes, recommended to check blood pressure at least twice daily, follow-up with PCP in 1 week. Discharge Activity: Return to Normal Activity Weight Bearing Status: Weight bearing as tolerated Call your doctor if you observe: Fever of 101 or Higher, Shortness of breath, Dizziness, Fainting spells, Chest pain, Increased palpitations (irregular heartbeat), Uncontrolled pain Home Medications: Medications to take at Discharge Acetaminophen [Tylenol Tablet] 650 mg PO Q6H PRN PRN #0 tablet 09/26/16 Albuterol Aerosols [Ventolin Aerosols] 2.5 mg INHALATION Q2H PRN PRN #30 vial.neb. 09/26/16 Albuterol Sulfate [Ventolin Hfa] 18 gm IH Q4H PRN PRN #1 hfa.aer.ad 09/26/16 Clopidogrel Bisulfate [Plavix] 75 mg PO DAILY #30 tablet 09/26/16 Potassium Chloride [K-Dur] 20 meq PO DAILY #30 tab 12/07/17 Linezolid [Zyvox] 600 mg PO Q12H #12 tab 12/13/17 Albuterol Sulfate [Proventil Hfa] 6.7 gm IH Q2H PRN PRN #1 hfa.aer.ad 12/14/17 Ascorbic Acid [Vitamin C] 500 mg PO BIDCM #60 tab 12/14/17 Aspirin [Aspirin, Baby] 81 mg PO DAILY@0800 #30 tab.chew 12/14/17 Atorvastatin Calcium [Lipitor] 80 mg PO QHS #30 tab 12/14/17 Carvedilol [Coreg (Beta Emani)] 6.25 mg PO BID #60 tab 12/14/17 Ferrous Gluconate 325 mg PO BIDCM #60 tab 12/14/17 Gabapentin [Neurontin] 600 mg PO DAILY #30 tab 12/14/17 Hydrocodone/Acetaminophen [Vicodin 5-300 mg Tablet] 1 tab PO Q4H PRN PRN 7 Days #20 tab 12/14/17 Nitroglycerin [Nitrostat] 0.4 mg SUBLINGUAL Q5M PRN #1 bottle 12/14/17 Prednisone 40 mg PO DAILY #10 tab 12/14/17 Furosemide [Lasix] 40 mg PO DAILY #30 tab 12/18/17 Isosorbide Mononitrate [Imdur] 30 mg PO DAILY #30 tab 12/18/17 Losartan Potassium [Cozaar] 25 mg PO DAILY #30 tab 12/18/17 Prednisone [Deltasone] 40 mg PO DAILY 10 Days tab 12/18/17 Following Prescrptions Were Given to Patient: Furosemide [Lasix] 40 mg PO DAILY #30 tab Isosorbide Mononitrate [Imdur] 30 mg PO DAILY #30 tab Losartan Potassium [Cozaar] 25 mg PO DAILY #30 tab Primary Care Physician: Care Physician,No Primary [Primary Care Provider] - Please follow up with your Primary Care Physician in: 1 week. Disposition: Home Minutes spent on discharge:: 26 Patient Condition:: Stable Medical Necessity - Tobacco Use Smoking Status: Current every day smoker Tobacco Use: Cigarettes Meaningful Use Info Meaningful Use Diagnoses (Choose all that apply): None applicable Code Visit OBSV E AND M: 02135 Observation care discharge 12/18/17 5699 <Electronically signed by Mary Michel MD> Date Mary Michel MD Cosigner Signature (if applicable): Date CC: No Primary Care Physician; Mary Michel; PCP Signed 12 LEAD ELECTROCARDIOGRAM Observed: 12/18/2017 Status: F Source: [place]I 3:28 PM [facility] Cardiovascular Services [address] [place] [address] [place] [address] 12 Lead EKG 12/16/17 2358 MR#: [id number] Acct: [id number] Name: ANTHONY JUNG Rep #: [id number] : 1960 57 From: Martin Covarrubias MD Attending Dr: Ada Paredes Status: DIS IN Ordering Dr: Lewis Molina MD Date: 12/16/17 Location: ICU Sex: M C Admitted: 12/11/17 Test Reason : DIZZINESS Blood Pressure : / mmHG Vent. Rate : 080 BPM Atrial Rate : 080 BPM P-R Int : 204 ms QRS Dur : 104 ms QT Int : 426 ms P-R-T Axes : 077 -52 142 degrees QTc Int : 491 ms Normal sinus rhythm Left anterior fascicular block Septal infarct , age undetermined T wave abnormality, consider anterolateral ischemia Abnormal ECG Confirmed by MARTIN COVARRUBIAS MD ([id number]), video effects editor HEIDE EDMONDS ([id number]) on 12/18/2017 3:28:07 PM Referred By: JW Confirmed By:MARTIN COVARRUBIAS MD 12/18/17 1528 Date Martin Covarrubias MD CC: No Primary Care Physician; Lewis Molina MD Signed DISCHARGE SUMMARY Observed: 12/18/2017 Status: F Source: JI 1:58 PM [facility] Medical Records Department [address] [place] [address] Discharge Summary 12/14/17 1547 MR#: [id number] Acct: [id number] Name: ANTHONY JUNG Rep #: [id number] : 1960 57 From: Ludin Paredes DO PCP: Care Physician, No Primary Status: DIS IN Y Location: ICU ICU06-1 Discharge Date and Diagnosis Date of Admission: 12/11/17 Date of Discharge: 12/14/17 - Primary Discharge Diagnosis Active and Suspected Problems MRSA (methicillin resistant Staphylococcus aureus) infection (Acute) - acute bronchitis COPD exacerbation (Acute) Acute respiratory failure with hypoxemia (Acute) - requiring intubation Elevated troponin (Acute) - did not trend Iron deficiency anemia (Acute) NSVT (nonsustained ventricular tachycardia) (Acute) Acute bronchitis (Acute) Systolic CHF, acute on chronic (Acute) - Secondary Discharge Diagnosis Chronic Problems Systolic CHF, chronic (Chronic) CAD (coronary artery disease) (Chronic) COPD (chronic obstructive pulmonary disease) (Chronic) Tobacco abuse (Chronic) Medical non-compliance (Chronic) with follow up, diet, medications and fluid restriction Ischemic cardiomyopathy (Chronic) - 10% EF Multiple cardiac stents in the past Hospital Course and Treatment Imaging Results: Clinical Impression(s) from Imaging Studies Chest X-Ray 12/10/17 23:05 IMPRESSION: No evidence of focal consolidation or acute process. Electronically Signed: Noel Saha DO at 23:23 EDT , Service support , Chest X-Ray 12/11/17 00:01 IMPRESSION: The NG tube is just past the gastroesophageal junction and could be advanced 5 to 10 cm. Endotracheal tube in satisfactory position. Cardiomegaly. Electronically Signed: Elizabeth Welsh MD at 1:01 EDT Tel , Service support , Chest X-Ray 12/11/17 07:09 IMPRESSION: Mild increased markings at the left lung base suggesting atelectasis. Support tubes are in good position. Electronically Signed: Darrick Coreas MD at 11:05 EDT Tel [phone], Service support , Chest X-Ray 12/12/17 05:55 IMPRESSION: Decrease of previous interstitial prominence likely superimposed component of COPD. There is borderline cardiac size. Other nonacute findings as outlined above. No pulmonary edema, congestive heart failure or confluent pneumonia. Electronically Signed: Ilsa Lobato MD at 6:15 EDT , Service support , Laboratory Results - last 24 hr WBC RBC Hgb Hct MCV MCH MCHC RDW WBC 9.3 RBC 4.79 Hgb 10.5 L Hct 35.5 L MCV 74.1 L MCH 21.9 L MCHC 29.6 L RDW 20.5 H RDW Differential 54.4 H Microbiology 12/13/17 09:45 Blood Culture (Wb) - Anticubital Right Bacteria Detection (PCR) - Final Staphylococcus epidermidis mecA Resistance Marker 12/13/17 09:45 Blood Culture (Wb) - Anticubital Right Blood Culture - Preliminary Staphylococcus epidermidis 12/11/17 11:10 Sputum, Induced/Lukens Gram Stain - Final 12/11/17 11:10 Sputum, Induced/Lukens Respiratory Culture - Final Meth. resistant Staph. aureus 12/11/17 07:25 Mucosa - Nose Respiratory Panel (PCR) - Final 12/11/17 00:54 Mucosa - Nasopharyngeal Influenza Types A,B Direct FA (SHARON) - Final Annual [facility] Dr. 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 Morgan Cerda-infectious disease Operations: None Procedures: 2-D Echocardiogram, Cardiac catheterization Summary of Care Provided: Patient is a 57-year-old male with a past medical history of COPD, congestive heart failure, coronary artery disease, severe cardiomyopathy, former alcohol abuse and ongoing tobacco abuse who presented to the emergency room at [facility] by squad on 12/11/2017 due to severe respiratory distress. Vital signs at presentation to the emergency room were temp 97.7, pulse rate 111, blood pressure 158/95, respiratory rate 28 and he was 100% saturated on BiPAP. The respiratory rate later increased and the patient was beginning to fatigue so he was intubated and placed on mechanical ventilation. Significant lab included a normal white blood cell count of 8.2 with 88% neutrophils. Hemoglobin was 9.3 and the MCV was 74. Platelet count was within normal limits. BMP was unremarkable. BNP was increased at 1577. Troponin was 0.08. X-ray showed no pleural effusions or infiltrates but did show pulmonary vascular congestion. MRSA nasal swab was positive. He was admitted to the intensive care unit with a diagnosis of acute respiratory failure with hypoxemia secondary to acute on chronic systolic congestive heart failure and acute exacerbation of COPD. Dr. Ahmadi was consulted to participate in ICU management. He was started on high-dose intravenous steroids and aerosolized bronchodilators. He was diuresed with furosemide. After he diuresed 5 L the wheezing present at admission completely resolved. He was extubated on 12/12/2017. Serial cardiac enzymes revealed the troponin was not trending. He was seen in consultation by Dr. Bradford Tirado from the [facility] who recommended a cardiac catheterization. There were no infiltrates on chest x-ray but the sputum Gram stain had white blood cells and the culture grew 3+ MRSA. He was treated with vancomycin. Cardiac catheterization was done on 12/14/17 and showed an ejection fraction of 10-15% with global hypokinesis. The left main was nonobstructed. The left anterior descending showed a previous stent that was patent. The diagonal 1 showed luminal irregularities with less than 30% stenosis. Circumflex artery showed previous stent to be patent. Diagonal #2 was nonobstructed. There was restenosis of a stent in the mid RCA that was estimated at 20%. 1 of 2 blood cultures grew staph epidermidis. Patient demanded to be discharged within a few hours after catheterization. He stated he would leave AGAINST MEDICAL ADVICE if necessary. He was given prescriptions for Zyvox 600 mg twice daily to complete a 10 day course of antibiotics for MRSA bronchitis. Since he had no insurance the hospital paid for 1 month of medications for this gentleman, please see the discharge instructions for complete list. He was instructed to follow-up with Dr. Bradford Tirado in the office in 1 week to arrange AICD placement by Dr. Kruger at [facility]. The medications were filled in the [facility] pharmacy and given to the pt at [facility]. He has been non-compliant with medications and follow up in the past and has had frequent hospital admissions, both in [place] and in [place]. I suspect he does not have the mental capacity to understand how significant the risk for sudden is in a patient with a 10-15% EF with no AICD and no Life vest who does not take his medications and does not follow up for ongoing cardiac care. If he gets insurance in the future he may be a good candidate for the Community Outreach program. This note was generated with [employer] dictation software. It may contain incorrect words, spelling, and punctuation that were not noted in checking the note before signing. Discharge Activity: - - Avoid exposure to any strong smells such as bleach, cleaning products, strong colognes or perfumes, paint fumes and smoke of any kind. Avoid sudden exposure to cold air because this can cause bronchospasm. You may want to cover your mouth when you go outside in the winter. Avoid exposure to anyone who is sick with a cough or sore throat. Additional Activity Instructions:: work up to walking for 30 minutes a day. If you get tired, have shortness of breath or chest pain SIT DOWN. Call your doctor if your incision/area has: Continuous Slow Oozing, Sudden Increased Bleeding, Increased Pain/ Swelling, Increased Redness, Foul Smelling Discharge, Swelling at the incision site Call your doctor if you observe: Fever of 101 or Higher, Inability to urinate, Shortness of breath, Dizziness, Fainting spells, Swelling in the ankles, Chest pain Home Medications: Medications to take at Discharge Acetaminophen [Tylenol Tablet] 650 mg PO Q6H PRN PRN #0 tablet 09/26/16 Albuterol Aerosols [Ventolin Aerosols] 2.5 mg INHALATION Q2H PRN PRN #30 vial.neb. 09/26/16 Albuterol Sulfate [Ventolin Hfa] 18 gm IH Q4H PRN PRN #1 hfa.aer.ad 09/26/16 Clopidogrel Bisulfate [Plavix] 75 mg PO DAILY #30 tablet 09/26/16 Potassium Chloride [K-Dur] 20 meq PO DAILY #30 tab 12/07/17 Linezolid [Zyvox] 600 mg PO Q12H #12 tab 12/13/17 Albuterol Sulfate [Proventil Hfa] 6.7 gm IH Q2H PRN PRN #1 hfa.aer.ad 12/14/17 Ascorbic Acid [Vitamin C] 500 mg PO BIDCM #60 tab 12/14/17 Aspirin [Aspirin, Baby] 81 mg PO DAILY@0800 #30 tab.chew 12/14/17 Atorvastatin Calcium [Lipitor] 80 mg PO QHS #30 tab 12/14/17 Carvedilol [Coreg (Beta Emani)] 6.25 mg PO BID #60 tab 12/14/17 Ferrous Gluconate 325 mg PO BIDCM #60 tab 12/14/17 Gabapentin [Neurontin] 600 mg PO DAILY #30 tab 12/14/17 Hydrocodone/Acetaminophen [Vicodin 5-300 mg Tablet] 1 tab PO Q4H PRN PRN 7 Days #20 tab 12/14/17 Nitroglycerin [Nitrostat] 0.4 mg SUBLINGUAL Q5M PRN #1 bottle 12/14/17 Prednisone 40 mg PO DAILY #10 tab 12/14/17 Furosemide [Lasix] 40 mg PO DAILY #30 tab 12/18/17 Isosorbide Mononitrate [Imdur] 30 mg PO DAILY #30 tab 12/18/17 Losartan Potassium [Cozaar] 25 mg PO DAILY #30 tab 12/18/17 Prednisone [Deltasone] 40 mg PO DAILY 10 Days tab 12/18/17 Following Prescrptions Were Given to Patient: Albuterol Sulfate [Proventil Hfa] 6.7 gm IH Q2H PRN PRN #1 hfa.aer.ad PRN Reason: Wheezing Hydrocodone/Acetaminophen [Vicodin 5-300 mg Tablet] 1 tab PO Q4H PRN PRN 7 Days #20 tab PRN Reason: pain in the joints Aspirin [Aspirin, Baby] 81 mg PO DAILY@0800 #30 tab.chew Atorvastatin Calcium [Lipitor] 80 mg PO QHS #30 tab Gabapentin [Neurontin] 600 mg PO DAILY #30 tab Linezolid [Zyvox] 600 mg PO Q12H #12 tab Nitroglycerin [Nitrostat] 0.4 mg SUBLINGUAL Q5M PRN #1 bottle PRN Reason: Cardiac/Chest Pain Prednisone 40 mg PO DAILY #10 tab Ascorbic Acid [Vitamin C] 500 mg PO BIDCM #60 tab Carvedilol [Coreg (Beta Emani)] 6.25 mg PO BID #60 tab Ferrous Gluconate 325 mg PO BIDCM #60 tab Primary Care Physician: Care Physician,No Primary [Primary Care Provider] - Please Follow Up With: Bradford Tirado MD When: 1 week to set up appt with Dr. Kruger for AICD Please Follow Up With: Ramy Davis MD When: when he gets medicaid established Patient Instructions: Fast-Acting Nitroglycerin Disposition: Home Minutes spent on discharge:: 40 Patient Condition:: Guarded Medical Necessity - Tobacco Use Smoking Status: Current every day smoker Meaningful Use Info Meaningful Use Diagnoses (Choose all that apply): CHF - CHF YUE/ARB ordered at discharge?: Yes Documented LVEF (%): 10 Code Visit Inpatient E AND M: 77728 Disch Hosp 12/18/17 1358 <Electronically signed by Ludin Paredes DO> Date Ludin Paredes DO Cosigner Signature (if applicable): Date CC: No Primary Care Physician; Ada Paredes; Bradford Tirado MD Signed DISCHARGE INSTRUCTION Observed: 12/18/2017 Status: F Source: [place] 9:07 AM [facility] Medical Records Department [address] [place] [address] Instructions for Home/Discharge Instructions 12/18/17 0906 MR#: [id number] Acct: [id number] Name: WAYNE GAMBLESeunANTHONY Raffi Rep #: [id number] : 1960 57 From: Mary Michel MD PCP: Care Physician, No Primary Status: ADM KEITH - Discharge Diagnoses Current Active Problems: Current Active and Chronic Problems Hypotension (Acute) Near syncope (Acute) You will use the following diet at home:: Cardiac Your food should be the consistency of: Regular Discharge Activity: Return to Normal Activity Weight Bearing Status: Weight bearing as tolerated Call your doctor if you observe: Fever of 101 or Higher, Shortness of breath, Dizziness, Fainting spells, Chest pain, Increased palpitations (irregular heartbeat), Uncontrolled pain Allergies/Adverse Reactions: Allergies No Known Allergies Allergy (Verified 12/16/17 23:10) Medications to take at Discharge Acetaminophen [Tylenol Tablet] 650 mg PO Q6H PRN PRN #0 tablet 09/26/16 Albuterol Aerosols [Ventolin Aerosols] 2.5 mg INHALATION Q2H PRN PRN #30 vial.neb. 09/26/16 Albuterol Sulfate [Ventolin Hfa] 18 gm IH Q4H PRN PRN #1 hfa.aer.ad 09/26/16 Clopidogrel Bisulfate [Plavix] 75 mg PO DAILY #30 tablet 09/26/16 Potassium Chloride [K-Dur] 20 meq PO DAILY #30 tab 12/07/17 Linezolid [Zyvox] 600 mg PO Q12H #12 tab 12/13/17 Albuterol Sulfate [Proventil Hfa] 6.7 gm IH Q2H PRN PRN #1 hfa.aer.ad 12/14/17 Ascorbic Acid [Vitamin C] 500 mg PO BIDCM #60 tab 12/14/17 Aspirin [Aspirin, Baby] 81 mg PO DAILY@0800 #30 tab.chew 12/14/17 Atorvastatin Calcium [Lipitor] 80 mg PO QHS #30 tab 12/14/17 Carvedilol [Coreg (Beta Emani)] 6.25 mg PO BID #60 tab 12/14/17 Ferrous Gluconate 325 mg PO BIDCM #60 tab 12/14/17 Gabapentin [Neurontin] 600 mg PO DAILY #30 tab 12/14/17 Hydrocodone/Acetaminophen [Vicodin 5-300 mg Tablet] 1 tab PO Q4H PRN PRN 7 Days #20 tab 12/14/17 Nitroglycerin [Nitrostat] 0.4 mg SUBLINGUAL Q5M PRN #1 bottle 12/14/17 Prednisone 40 mg PO DAILY #10 tab 12/14/17 Furosemide [Lasix] 40 mg PO DAILY #30 tab 12/18/17 Isosorbide Mononitrate [Imdur] 30 mg PO DAILY #30 tab 12/18/17 Losartan Potassium [Cozaar] 25 mg PO DAILY #30 tab 12/18/17 Prednisone [Deltasone] 40 mg PO DAILY 10 Days tab 12/18/17 The following prescriptions were given: Furosemide [Lasix] 40 mg PO DAILY #30 tab Isosorbide Mononitrate [Imdur] 30 mg PO DAILY #30 tab Losartan Potassium [Cozaar] 25 mg PO DAILY #30 tab Primary Care Physician: Care Physician,No Primary [Primary Care Provider] - Please follow up with your Primary Care Physician in: 1 week. 12/18/17 0907 <Electronically signed by Mary Michel MD> Date Mary Michel MD CC: No Primary Care Physician TROPONIN-I Collected: 12/17/2017 Status: F Source: [place] 5:55 PM [facility] RE[facility] Order Comment: 'TROP' Serial specimen #1, #2, #3, or #4: 4 TYPE CODE TESTS RESULT OUT OF RANGE REFERENCE UNITS LAB L501.4010 <0.06 ng/mL Normal 0.05 TROPONIN-I Result Comment: TROPONIN-I EXPECTED VALUES <0.05 NEGATIVE 0.06 - 0.59 AT RISK OF MO > OR = 0.60 SUGGEST MO Performed By: #### L501.4010 #### [facility] [address] [place], [address] 12 LEAD ELECTROCARDIOGRAM Observed: 12/17/2017 Status: F Source: [place] 2:51 PM [facility] Cardiovascular Services [address] [place] [address] 12 Lead EKG 12/13/17 1517 MR#: [id number] Acct: [id number] Name: ANTHONY JUNG Rep #: [id number] : 1960 57 From: Bradford Tirado MD Attending Dr: Mary Michel Status: ADM KEITH Ordering Dr: Lewis Molina MD Date: 12/16/17 Location: ICU Sex: M C Admitted: 12/17/17 Test Reason : CP Blood Pressure : / mmHG Vent. Rate : 085 BPM Atrial Rate : 085 BPM P-R Int : 182 ms QRS Dur : 100 ms QT Int : 398 ms P-R-T Axes : 082 -46 167 degrees QTc Int : 473 ms Normal sinus rhythm with sinus arrhythmia Left anterior fascicular block Septal infarct , age undetermined ST AND T wave abnormality, consider anterolateral ischemia Abnormal ECG When compared with ECG of 13-DEC-2017 15:01, MANUAL COMPARISON REQUIRED, DATA IS UNCONFIRMED Confirmed by BRADFORD TIRADO ([id number]), video effects editor HEIDE EDMONDS ([id number]) on 12/17/2017 2:50:32 PM Referred By: EVY Confirmed By:BRADFORD TIRADO 12/17/17 1450 Date Bradford Tirado MD CC: No Primary Care Physician; Lewis Molina MD Signed 12 LEAD ELECTROCARDIOGRAM Observed: 12/17/2017 Status: F Source: [place] 2:50 PM [facility] Cardiovascular Services [address] [place] [address] 12 Lead EKG 12/13/17 1501 MR#: [id number] Acct: [id number] Name: ANTHONY JUNG Rep #: [id number] : 1960 57 From: Bradford Tirado MD Attending Dr: Ada Paredes Status: DIS IN Ordering Dr: Ludin Paredes DO Date: 12/13/17 Location: ICU Sex: M C Admitted: 12/11/17 Test Reason : CP Blood Pressure : / mmHG Vent. Rate : 087 BPM Atrial Rate : 087 BPM P-R Int : 186 ms QRS Dur : 106 ms QT Int : 380 ms P-R-T Axes : 083 -46 186 degrees QTc Int : 457 ms Sinus rhythm with Premature supraventricular complexes Left anterior fascicular block Septal infarct , age undetermined ST AND T wave abnormality, consider inferior ischemia ST AND T wave abnormality, consider anterolateral ischemia Abnormal ECG When compared with ECG of 11-DEC-2017 08:19, MANUAL COMPARISON REQUIRED, DATA IS UNCONFIRMED Confirmed by BRADFORD TIRADO ([id number]), video effects editor HEIDE EDMONDS ([id number]) on 12/17/2017 2:49:58 PM Referred By: Confirmed By:BRADFORD TIRADO 12/17/17 1450 Date Bradford Tirado MD CC: No Primary Care Physician; Ada Paredes Signed 12 LEAD ELECTROCARDIOGRAM Observed: 12/17/2017 Status: F Source: JI 2:44 PM [facility] REPOSITORY [facility] Cardiovascular Services [address] [place] [address] 12 Lead EKG 12/14/17 0601 MR#: [id number] Acct: [id number] Name: ANTHONY JUNG W Rep #: [id number] : 1960 57 From: Bradford Tirado MD Attending Dr: Ada Paredes Status: DIS IN Ordering Dr: Bradford Tirado MD Date: 12/14/17 Location: ICU Sex: M C Admitted: 12/11/17 Test Reason : MORNING EKG Blood Pressure : / mmHG Vent. Rate : 091 BPM Atrial Rate : 091 BPM P-R Int : 182 ms QRS Dur : 102 ms QT Int : 394 ms P-R-T Axes : 080 -61 103 degrees QTc Int : 484 ms Sinus rhythm with Premature supraventricular complexes Left anterior fascicular block Septal infarct , age undetermined T wave abnormality, consider lateral ischemia Abnormal ECG Confirmed by BRADFORD TIRADO ([id number]), video effects editor HEIDE EDMONDS ([id number]) on 12/17/2017 2:43:39 PM Referred By: EVY Confirmed By:BRADFORD TIRADO 12/17/17 1443 Date Bradford Tirado MD CC: No Primary Care Physician; Bradford Tirado MD Signed 12 LEAD ELECTROCARDIOGRAM Observed: 12/17/2017 Status: F Source: JI 2:23 PM [facility] REPOSITORY [facility] Cardiovascular Services [address] [place] [address] 12 Lead EKG 12/11/17 0819 MR#: [id number] Acct: [id number] Name: ANTHONY JUNG Rep #: [id number] : 1960 57 From: Bradford Tirado MD Attending Dr: Ada Paredes Status: DIS IN Ordering Dr: Ludin Paredes DO Date: 12/11/17 Location: ICU Sex: Ludin Gentile Admitted: 12/11/17 Test Reason : Blood Pressure : / mmHG Vent. Rate : 091 BPM Atrial Rate : 091 BPM P-R Int : 190 ms QRS Dur : 100 ms QT Int : 420 ms P-R-T Axes : 078 -57 242 degrees QTc Int : 516 ms Normal sinus rhythm Left anterior fascicular block ST AND T wave abnormality, consider inferolateral ischemia Prolonged QT Abnormal ECG When compared with ECG of 07-DEC-2017 15:20, T wave inversion now evident in Inferior leads Nonspecific T wave abnormality now evident in Anterior leads Confirmed by BRADFORD TIRADO ([id number]), video effects editor HEIDE EDMONDS ([id number]) on 12/17/2017 2:23:11 PM Referred By: Confirmed By:BRADFORD TIRADO 12/17/17 1423 Date Bradford Tirado MD CC: No Primary Care Physician; Ada Paredes Signed TROPONIN-I Collected: 12/17/2017 Status: F Source: [place] 8:00 AM [facility] REPOSITORY Order Comment: 'TROP' Serial specimen #1, #2, #3, or #4: 2 TYPE CODE TESTS RESULT OUT OF RANGE REFERENCE UNITS LAB L501.4010 <0.06 ng/mL High 0.07 TROPONIN-I Result Comment: TROPONIN-I EXPECTED VALUES <0.05 NEGATIVE 0.06 - 0.59 AT RISK OF MO > OR = 0.60 SUGGEST MO Performed By: #### L501.4010 #### [facility] [address] [facility] [place], [address] EMERGENCY DEPARTMENT Observed: 12/17/2017 Status: F Source: [place] SUMMARY 7:00 AM [facility] REPOSITORY [facility] Medical Records Department [address] [facility] [place] [address] Emergency Department Summary 12/17/17 0114 MR#: [id number] Acct: [id number] Name: ANTHONY JUNG Rep #: [id number] : 1960 57 From: Lewis Molina MD PCP: Care Physician, No Primary Status: ADM KEITH - ER Visit Summary Date of Service: 12/17/17 Chief Complaint: Blood pressure and near syncope History of Present Illness: The patient is a 57 M 3 of a known cardiomyopathy. He is an EF around 15%. Known CAD with 10-15 cardiac stents. Prior CHF. History of hypertension and chronic anemia. History of A. fib. Patient took his medications tonight about 2 hours prior to arrival felt lightheaded dizzy like he might pass out. He lives with family and they caught him and It from falling. He denies any headache, chest pain, abdominal pain. He denies any nausea vomiting or diarrhea. Denies any melena or fever. Physical Examination: Initial blood pressure 75/50 temperature 94 pulse ox 97% on room air no signs of hypoxia. He is in no distress. Other than his blood pressure being low. HEENT exam unremarkable neck nontender no lymphadenopathy. Heart regular rhythm. Abdomen is soft nontender. Lungs are clear to auscultation bilaterally. Extremities moves all 4. No edema. No deformities. Neurologically is awake and alert without focal motor deficits. Skin unremarkable. Test Results: CBC shows a chronic anemia of 9.7. No bands. White count 12.7. BMP unremarkable other than a BUN of 31 creatinine 0.8 consistent with mild dehydration. Normal gap. His troponin is elevated 0.08 he normally has a elevated troponin. Lactic acid is normal at 1.1. Chest x-ray shows mild cardiomegaly otherwise unremarkable no acute process read both by myself and the radiologist. EKG shows sinus rhythm a rate of 80 with inverted T waves V3 through V6 which is basically chronic from her prior EKG. Emergency Department Course and Treatment: Patient was treated with a liter of normal saline his blood pressure is much improved currently at 111/71. Treatment Plan: Due to his hypotension and near syncope with his known cardiomyopathy I have spoken to the hospitalist and she is done in the ER evaluating for admission. Disposition: Admission Impression: Near syncope Acute hypotension History of cardiomyopathy History of CAD with multiple cardiac stents. History of A. fib History of chronic anemia This note was generated with [employer] software. It may contain incorrect words, spelling, and punctuation that were not noted in review of the chart prior to signing ED Disposition - Plan for ED Patient: Chief Complaint: Dizziness Referrals: Care Physician,No Primary [Primary Care Provider] - What to do if you have Problems For any increased pain, shortness of breath, bleeding, nausea or vomiting, chest pain, or any unexpected problems, contact your Primary Care Provider. Call [facility] ([phone]) or report to the closest Emergency Room. Call 911 if necessary. 12/17/17 0700 <Electronically signed by Lewis Molina MD> Date Lewis Molina MD Cosigner Signature (If Indicated): Date CC: No Primary Care Physician CBC-COMPLETE BLOOD CNT Collected: 12/17/2017 Status: F Source: [place] NO DIFF 4:37 AM [facility] REPOSITORY TYPE CODE TESTS RESULT OUT OF RANGE REFERENCE UNITS LAB L100.1000 4.4-11.0 K/mm3 Normal WBC 10.9 LAB L100.1200 4.6-6.2 M/mm3 Low RBC 4.39 LAB L100.1300 13.0-16.5 g/dl Low HGB 9.7 LAB L100.1400 40-54 % Low HCT 32.3 LAB L100.1500 80-94 fL Low MCV 73.6 LAB L100.1600 27.0-32.0 pg Low MCH 22.1 LAB L100.1700 32-36 g/gl Low MCHC 30.0 LAB L100.1810 11.6-14.6 % High RDW CV 20.4 LAB L100.1820 35.1-43.9 fl High RDW SD 52.6 LAB L100.1900 150-450 K/mm3 High PLT 493 LAB L100.2000 6.2-12.0 fl Normal MPV 8.3 Performed By: #### L100.0500, L100.4500 #### [facility] [address] [place], [address] DIFFERENTIAL COMMENT Collected: 12/17/2017 Status: F Source: JI 4:37 AM [facility] REPOSITORY TYPE CODE TESTS RESULT OUT OF RANGE REFERENCE UNITS LAB L100.4500 Normal SMEAR COMMENT SCANNED Result Comment: 3+ ANISOCYTOSIS 2+ OVALOCYTOSIS 2+ TARGET CELLS 2+ MICROCYTOSIS Performed By: #### L100.0500, L100.4500 #### [facility] [address] [place], [address] BASIC METABOLIC Collected: 12/17/2017 Status: F Source: [place]I PROFILE (BMP) 4:37 AM [facility] REPOSITORY TYPE CODE TESTS RESULT OUT OF RANGE REFERENCE UNITS LAB L501.0100 74-106 mg/dL Normal GLU 78 Result Comment: Please note revised GLUCOSE reference range effective 2017. LAB L501.1000 7-18 mg/dL High BUN 29 LAB L501.1100 0.70-1.30 mg/dL Normal CREAT,SERUM 0.79 Result Comment: The validity of the calculated GFR AND GFRAA in patients over 70 years has not been determined. Clinical correlation is essential. LAB L501.1110 >60 mL/min Normal EST GFR 107 Result Comment: Non- GFR Calc LAB L501.1115 >60 mL/min Normal EST GFR - AA 130 Result Comment: GFR Calc LAB L501.1255 ml/min Normal Estimated CRCL 97.41 LAB L501.1300 10-20 RATIO High BUN/CRE 36.8 LAB L501.2200 8.5-10 mg/dL Low .1 CA 8.1 LAB L501.5300 136-14 mmol/L Normal 5 NA 138 LAB L501.5600 3.5-5. mmol/L Normal 1 K 4.5 LAB L501.5900 98-107 mmol/L Normal CL 100 LAB L501.6100 21.0-3 mmol/L Normal 2.0 CO2 30.0 LAB L501.6200 5-15 Normal GAP 8 Performed By: #### L500.2500, L501.5200 #### [facility] [address] [place], [address] MAGNESIUM Collected: 12/17/2017 Status: F Source: [place]I 4:37 AM [facility] REPOSITORY TYPE CODE TESTS RESULT OUT OF RANGE REFERENCE UNITS LAB L501.5200 1.6-2.6 mg/dL Normal MG 2.0 Result Comment: Please note revised Magnesium reference range effective 2017. Performed By: #### L500.2500, L501.5200 #### [facility] [address] [facility] [place], [address] HISTORY AND PHYSICAL Observed: 12/17/2017 Status: F Source: [place] EXAM 3:18 AM [facility] REPOSITORY [facility] Medical Records Department [address] [facility] [place] [address] History and Physical 12/17/17 0207 MR#: [id number] Acct: [id number] Name: ANTHONY JUNG Rep #: [id number] : 1960 57 From: Vaishali Cr PCP: Care Physician, No Primary Status: ADM [facility] (1) MRSA (methicillin resistant Staphylococcus aureus) infection Status: Acute Comment: Recent discharge 12/14/17 following treatment for acute on chronic systolic CHF exacerbation, acute COPD exacerbation with acute hypoxic respiratory failure and MRSA HCAP PNA. (2) COPD exacerbation Status: Acute Comment: Recent discharge 12/14/17 following treatment for acute on chronic systolic CHF exacerbation, acute COPD exacerbation with acute hypoxic respiratory failure and MRSA HCAP PNA. (3) Iron deficiency anemia Status: Chronic Qualifiers: Iron deficiency anemia type: unspecified iron deficiency Qualified Code(s): D50.9 - Iron deficiency anemia, unspecified (4) Systolic CHF, chronic Status: Acute Comment: Recent discharge 12/14/17 following treatment for acute on chronic systolic CHF exacerbation, acute COPD exacerbation with acute hypoxic respiratory failure and MRSA HCAP PNA. (5) HCAP (healthcare-associated pneumonia) Status: Acute Comment: Recent discharge 12/14/17 following treatment for acute on chronic systolic CHF exacerbation, acute COPD exacerbation with acute hypoxic respiratory failure and MRSA HCAP PNA. (6) CAD (coronary artery disease) Status: Chronic Qualifiers: Coronary Disease-Associated Artery/Lesion type: unspecified vessel or lesion type [place] vs. transplanted heart: unspecified whether [place] or transplanted heart Associated angina: angina presence unspecified Qualified Code(s): I25.10 - Atherosclerotic heart disease of [place] coronary artery without angina pectoris (7) COPD (chronic obstructive pulmonary disease) Status: Chronic Qualifiers: COPD type: unspecified COPD Qualified Code(s): J44.9 - Chronic obstructive pulmonary disease, unspecified (8) Tobacco abuse Status: Chronic (9) Ischemic cardiomyopathy Status: Chronic (10) Hypotension Status: Acute Qualifiers: Hypotension type: hypotension due to drug Qualified Code(s): I95.2 - Hypotension due to drugs (11) Near syncope Status: Acute History of Present Illness Date of Admission: 12/17/17 Chief Complaint: Near Syncope, Hypotension The patient is a 57 y/o M w/ PMHx: Chronic COPD w/ Chronic Hypoxic Respiratory Failure (3L NC), HTN, HLD, CAD s/p PCI, Ischemic Cardiomyopathy (EF 10%), Chronic Systolic CHF, Tobacco use recently discharged 12/14/17 following treatment for acute hypoxic respiratory failure requiring intubation secondary to acute on chronic CHF exacerbation, acute on chronic COPD exacerbation and MRSA HCAP who now re-presents to the [facility] ED on 12/17/17 with onset the evening prior 30 minutes prior to taking his blood pressure regimen, near syncopal sensation with lightheadedness, dizziness, debility after dinner. In the ED initial BP 75/50, IVF bolus administered per ED and follow-up VS T 98.4, HR 80s, BP 120/87, RR 18, 98% on RA, CBC w/ WBC 12.7, Hgb 9.7, Plts 483 with L shift, BMP not marked appearing LA 1.1, trop 0.08, EKG with SR without acute evidence of ischemia, CXR with chronic changes. Past Medical History Past Medical History (Chronic Problems): Chronic Problems Iron deficiency anemia (Chronic) CAD (coronary artery disease) (Chronic) COPD (chronic obstructive pulmonary disease) (Chronic) Tobacco abuse (Chronic) Medical non-compliance (Chronic) Ischemic cardiomyopathy (Chronic) Allergies No Known Allergies Allergy (Verified 12/16/17 23:10) Home Medications: Ambulatory Orders Medication Instructions Recorded Acetaminophen [Tylenol Tablet] 650 mg PO Q6H PRN PRN #0 tablet 09/26/16 Surgical History: - - PCI x 10-11. Psychiatric History: No pertinent psych hx Lives: Alone Smoking Status: Current every day smoker - 3 cig/day. Tobacco Use: Cigarettes Alcohol: None Drugs: None - *Family History Maternal History Items: Heart Disease Paternal History Items: Heart Disease Review of Systems Constitutional: Reports: Malaise, Weakness, Fatigue. Denies: Chills, Fever, Weight Change HEENT: Denies: Head Aches, Sinus Congestion, Sinus Drainage Cardiovascular: Reports: Heaviness, Syncope. Denies: Chest Pain, Palpitations Respiratory: Reports: Shortness of breath upon exertion. Denies: Cough, Shortness of breath at rest, Sputum production Gastrointestinal: Denies: Abdominal Pain, Nausea, Vomiting Genitourinary: Denies: Dysuria Musculoskeletal: Denies: Joint Pain, Joint Tenderness Skin: Denies: Rash, Wounds Neurological: Denies: Numbness, Tingling, Focal weakness Psychiatric: Denies: Anxiety, Depression, Homicidal Ideations, Suicidal Ideations Hematologic/ Lymphatic: Reports: Anemia. Denies: Easy Bruising, Easy Bleeding VTE Information - Inpt Only VTE Present on Admission: No VTE Mechan Device Prophylaxis: SCD's VTE Pharm Prophylaxis ordered?: Yes Patient Problems: Active and Suspected Problems Hypotension (Acute) Near syncope (Acute) Subjective: Seated upright in the ED bed, fatigued appearing, notes he is feeling better since IVFs. Objective: Physical Examination: General: awake, alert, oriented x 3 and cooperative, seated upright in the ED bed in no apparent distress. Skin: normal color, turgor, no icterus, cyanosis. HEENT: AT/NC, EOMI, PERRLA, dry MM, no carotid bruits or JVD noted. Lungs: Diminished BS, > BL bases, moderate effort, no wheezing. Heart: Regular rate and rhythm; no gallop, rub audible. Abdomen: soft, NTTP, ND, normal BS, no HSM. Extremities: no cyanosis, clubbing, or edema. Neurological: patient awake, alert, oriented x 3; cognitive function intact; pupils equally reactive to light and accomodation; cranial nerves II-XII grossly normal, moving all 4 extremities, no focal deficits, strength mildly globally decreased secondary to acute presentation. Psychiatric: affect appears normal, no acute evidence of depressive or anxiety feelings. - Physical Exam Vital Signs Temp Pulse Resp BP Pulse Ox 98.4 F 90 18 101/54 L 100 12/16/17 23:07 12/17/17 01:46 12/17/17 01:46 12/17/17 01:46 12/17/17 01:46 Oxygen Flow Rate (L/min) 3 Oxygen Delivery Method Room Air Weight: 160 lb 0.889 oz Body Mass Index (BMI) 24.3 Laboratory Tests Past 24 Hrs WBC 12.7 H RBC 4.36 L Hgb 9.7 L Hct 32.1 L Assessment/Plan Active and Suspected Problems Hypotension (Acute) Near syncope (Acute) The patient is a 57 y/o M w/ PMHx: Chronic COPD w/ Chronic Hypoxic Respiratory Failure (3L NC), HTN, HLD, CAD s/p PCI, Ischemic Cardiomyopathy (EF 10%), Chronic Systolic CHF, Tobacco use recently discharged 12/14/17 following treatment for acute hypoxic respiratory failure requiring intubation secondary to acute on chronic CHF exacerbation, acute on chronic COPD exacerbation and MRSA HCAP who now re-presents to the [facility] ED on 12/17/17 with onset the evening prior 30 minutes prior to taking his blood pressure regimen, near syncopal sensation with lightheadedness, dizziness, debility after dinner. (1) Near Syncopal Event w/ Hypotension: Suspected secondary to medications, occurred 30 minutes following PM medication HTN regimen. EKG in ED w/ sinus rhythm without evidence of acute ischemia, CXR w/ no acute cardiopulmonary findings, initial trop normal. Will admit to PCU, place on a monitored bed to assure no acute myocardial infarction with serial cardiac enzymes and EKGs. Will maintain on fall precautions, obtain admission orthostatic and AM orthostatic VS, continue to gently hydrate, hold BP regimen with addition back as able. (2) CAD w/ Indeterminant Cardiac Enzymes (Appears Chronic): s/p notable PCI, 10-11 per patient, following w/ Dr. Tirado, maintain on asa, plavix, statin, BB with hold parameters. Will maintain on telemetry, cycle cardiac enzymes. (3) Recent MRSA HCAP: Maintain on contact precautions, continue recent discharge regimen linezolid, continue ATC duonebs, PRN albuterol, prednisone taper HOB, IS parameters. (4) Chronic COPD w/ Chronic Hypoxic Respiratory Failure w/ recent Exacerbation: Will maintain on home oxygen supplementation, continue ATC duonebs, PRN albuterol, prednisone taper HOB, IS parameters. (5) Chronic Systolic CHF, Ischemic Cardiomyopathy w/ Recent Exacerbation: CXR and examination without concern for decompensation, maintain on asa, plavix, statin, BB with hold parameters, given hypotension, holding lasix, isosorbide, losartan, spironolactone, add back regimen as able. (6) Hypertension: As noted, hypotensive upon presentation, improving, will hold regimen upon admission aside BB given NSVT history with hold parameters, add back regimen as able in AM with adjustments. (7) Hyperlipidemia: Maintain on home statin regimen. (8) Tobacco Abuse: Encouraged cessation, inpatient consultation per RT, NR if desired. (9) DVT Prophylaxis: SCDs, lovenox. Code Visit OBSV E AND M: [id number] Initial observation care L3 12/17/17317 <Electronically signed by Vaishali Cr > Date Vaishali Cr Cosigner Signature: Date (if applicable) CC: No Primary Care Physician; Vaishali Cr Signed LACTIC ACID Collected: 12/17/2017 Status: F Source: [place] 12:08 AM [facility] REPOSITORY Order Comment: Yes/No query for Sepsis Lactate Rule Y TYPE CODE TESTS RESULT OUT OF RANGE REFERENCE UNITS LAB L503.6005 0.4-2.0 mmol/L Normal LACTIC ACID 1.1 Performed By: #### L503.6005 #### [facility] [address] [facility] [place], [address] CHEST 1 VIEW Observed: 12/16/2017 Status: F Source: [place] (PORTABLE) 11:49 PM [facility] REPOSITORY [facility] Imaging Services [address] [place] [address] Chest 1 View (Portable) MR#: [id number] Acct: [id number] Name: ANTHONY JUNG Rep #: [id number] : 1960 M 57 From: Trey oRman MD PCP: Care Physician, No Primary Status: REG ER Study: Chest 1 View (Portable) Date of Exam: 12/16/17 Exam# [id number] Ordering Dr: Lewis Molina MD STUDY: X-RAY CHEST REASON FOR EXAM: Male, 57 years old. Chest pain. TECHNIQUE: Single AP portable view of the chest. COMPARISON: 12/12/2017. FINDINGS: The lungs are mildly hyper expanded. There are areas of mild chronic interstitial prominence with no demonstrated focal pulmonary infiltrate. there is no demonstrated pleural abnormality. There is mild cardiac enlargement. Normal mediastinum and alberto. Normal visualized pulmonary arteries. There is atherosclerotic calcification of the aortic arch with tortuosity. Normal visualized thoracic spine. There are degenerative changes of the acromioclavicular joints. There is no demonstrated abnormality of the visualized soft tissue structures of the upper abdomen. RAD/Chest 1 View (Portable) IMPRESSION: COPD. Mild cardiomegaly. No evidence for acute cardiopulmonary pathology. Electronically Signed: Trey Roman MD at 0:21 EDT , Service support , CC: No Primary Care Physician; Lewis Molina MD Entry Level Software Engineer: Signed CBC W/DIFF, AUTOMATED Collected: 12/16/2017 Status: C Source: [place]I 11:10 PM [facility] REPOSITORY TYPE CODE TESTS RESULT OUT OF RANGE REFERENCE UNITS LAB L100.1000 4.4-11.0 K/mm3 High WBC 12.7 LAB L100.1200 4.6-6.2 M/mm3 Low RBC 4.36 LAB L100.1300 13.0-16.5 g/dl Low HGB 9.7 LAB L100.1400 40-54 % Low HCT 32.1 LAB L100.1500 80-94 fL Low MCV 73.6 LAB L100.1600 27.0-32.0 pg Low MCH 22.2 LAB L100.1700 32-36 g/gl Low MCHC 30.2 LAB L100.1810 11.6-14.6 % High RDW CV 20.1 LAB L100.1820 35.1-43.9 fl High RDW SD 52.4 LAB L100.1900 150-450 K/mm3 High PLT 483 LAB L100.2000 6.2-12.0 fl Normal MPV 8.5 LAB L100.2620 2.0-7.7 X10 3/uL High Absolute Neut 9.1 Result Comment: AMENDED REPORT 12/17/17102 Absolute Neut previously reported as: 8.5 H X10^3/uL LAB L100.2720 0.83-4.51 X10 3/ul Normal Absolute Lymph 2.03 Result Comment: AMENDED REPORT 12/17/17102 Absolute Lymph previously reported as: 1.80 X10^3/ul LAB L100.3100 MANUAL DIFF CELLS COUNTED Normal 100 LAB L100.3200 47-70 % High SEGS 72 LAB L100.3400 0-1 % High META 3 LAB L100.3800 19-41 % Low LYMPH 16 LAB L100.3900 0-10 % MONOCYTE 7 Normal LAB L100.4000 0-5 % EOS 2 Normal LAB L100.5500 ADEQ PLT EST Normal ADEQUATE LAB L100.7600 HYPOCHROMASIA 3+ Normal LAB L100.7700 MICROCYTES 2+ Normal LAB L100.8200 OVALOCYTE 1+ Normal LAB L100.8600 TARGET CELLS 2+ Normal LAB L100.9900 PATH REV Normal Reviewed Result Comment: Neutrophilic leukocytosis with left shift. Thrombocytosis. Microcytic anemia. Clinical correlation necessary. Chema Carvajal M.D. 12/17/17 Pathologist comment added AMENDED REPORT 12/17/17 1249 PATH REV previously reported as: January Performed By: #### L100.0100 #### [facility] [address] [place], [address] BASIC METABOLIC Collected: 12/16/2017 Status: F Source: JI PROFILE ([facility]) 11:10 PM [facility] REPOSITORY Order Comment: 'TROP' Serial specimen #1, #2, #3, or #4: 1 TYPE CODE TESTS RESULT OUT OF RANGE REFERENCE UNITS LAB L501.0100 74-106 mg/dL Normal GLU 93 Result Comment: Please note revised GLUCOSE reference range effective 2017. LAB L501.1000 7-18 mg/dL High BUN 31 LAB L501.1100 0.70-1.30 mg/dL Normal CREAT,SERUM 0.89 Result Comment: The validity of the calculated GFR AND GFRAA in patients over 70 years has not been determined. Clinical correlation is essential. LAB L501.1110 >60 mL/min Normal EST GFR 93 Result Comment: Non- GFR Calc LAB L501.1115 >60 mL/min Normal EST GFR - AA 112 Result Comment: GFR Calc LAB L501.1255 ml/min Normal Estimated CRCL 86.46 LAB L501.1300 10-20 RATIO High BUN/CRE 34.8 LAB L501.2200 8.5-10 mg/dL Low .1 CA 8.0 LAB L501.5300 136-14 mmol/L Normal 5 NA 137 LAB L501.5600 3.5-5. mmol/L Normal 1 K 4.5 LAB L501.5900 98-107 mmol/L Normal CL 99 LAB L501.6100 21.0-3 mmol/L Normal 2.0 CO2 31.0 LAB L501.6200 5-15 Normal GAP 7 Performed By: #### L500.2500, L501.4010 #### [facility] [address] [facility] [place], [place], [address] TROPONIN-I Collected: 12/16/2017 Status: F Source: [place] 11:10 PM [facility] REPOSITORY Order Comment: 'TROP' Serial specimen #1, #2, #3, or #4: 1 TYPE CODE TESTS RESULT OUT OF RANGE REFERENCE UNITS LAB L501.4010 <0.06 ng/mL High 0.08 TROPONIN-I Result Comment: TROPONIN-I EXPECTED VALUES <0.05 NEGATIVE 0.06 - 0.59 AT RISK OF MO > OR = 0.60 SUGGEST MO Performed By: #### L500.2500, L501.4010 #### [facility] [address] [place], [place], [address] DISCHARGE INSTRUCTION Observed: 12/14/2017 Status: F Source: JI 3:47 PM [facility] REPOSITORY [facility] Medical Records Department [address] [place] [address] Instructions for Home/Discharge Instructions 12/14/17 0946 MR#: [id number] Acct: [id number] Name: ANTHONY JUNG Rep #: [id number] : 1960 57 From: Ludin Paredes DO PCP: Care Physician, No Primary Status: ADM IN You will use the following diet at home:: Cardiac - no more then 2 grams of sodium, Fluid restricted (specify 2000 mls, 1500 mls) - Limit your fluid intake to 1,500 cc/daily Discharge Activity: - - Avoid exposure to any strong smells such as bleach, cleaning products, strong colognes or perfumes, paint fumes and smoke of any kind. Avoid sudden exposure to cold air because this can cause bronchospasm. You may want to cover your mouth when you go outside in the winter. Avoid exposure to anyone who is sick with a cough or sore throat. Lifting Restrictions: no more than 10 lbs Additional Activity Instructions:: work up to walking for 30 minutes a day. If you get tired, have shortness of breath or chest pain SIT DOWN. Call your doctor if your incision/area has: Continuous Slow Oozing, Sudden Increased Bleeding, Increased Pain/ Swelling, Increased Redness, Foul Smelling Discharge, Swelling at the incision site Call your doctor if you observe: Fever of 101 or Higher, Inability to urinate, Shortness of breath, Dizziness, Fainting spells, Swelling in the ankles, Chest pain Instructions: Fast-Acting Nitroglycerin Additional Instructions: 1. Weigh yourself EVERY morning after you urinate. Keep a record. If your weight goes up by more than 5 pounds in a week call Dr. Tirado for instructions and CUT BACK ON SALT AND FLUIDS!!!! Allergies/Adverse Reactions: Allergies No Known Allergies Allergy (Verified 12/10/17 23:03) Medications to take at Discharge Acetaminophen [Tylenol Tablet] 650 mg PO Q6H PRN PRN #0 tablet 09/26/16 Albuterol Aerosols [Ventolin Aerosols] 2.5 mg INHALATION Q2H PRN PRN #30 vial.neb. 09/26/16 Albuterol Sulfate [Ventolin Hfa] 18 gm IH Q4H PRN PRN #1 hfa.aer.ad 09/26/16 Clopidogrel Bisulfate [Plavix] 75 mg PO DAILY #30 tablet 09/26/16 Potassium Chloride [K-Dur] 20 meq PO DAILY #30 tab 12/07/17 Prednisone [Deltasone] 40 mg PO DAILY 10 Days tab 12/07/17 Linezolid [Zyvox] 600 mg PO Q12H #12 tab 12/13/17 Albuterol Sulfate [Proventil Hfa] 6.7 gm IH Q2H PRN PRN #1 hfa.aer.ad 12/14/17 Ascorbic Acid [Vitamin C] 500 mg PO BIDCM #60 tab 12/14/17 Aspirin [Aspirin, Baby] 81 mg PO DAILY@0800 #30 tab.chew 12/14/17 Atorvastatin Calcium [Lipitor] 80 mg PO QHS #30 tab 12/14/17 Carvedilol [Coreg (Beta Emani)] 6.25 mg PO BID #60 tab 12/14/17 Clopidogrel Bisulfate [Plavix] 75 mg PO DAILY #30 tab 12/14/17 Ferrous Gluconate 325 mg PO BIDCM #60 tab 12/14/17 Furosemide [Lasix] 40 mg PO BID@1000,1800 #60 tab 12/14/17 Gabapentin [Neurontin] 600 mg PO DAILY #30 tab 12/14/17 Hydrocodone/Acetaminophen [Vicodin 5-300 mg Tablet] 1 tab PO Q4H PRN PRN 7 Days #20 tab 12/14/17 Isosorbide Mononitrate [Imdur] 60 mg PO BID #60 tab 12/14/17 Losartan Potassium [Cozaar] 50 mg PO DAILY #30 tab 12/14/17 Nitroglycerin [Nitrostat] 0.4 mg SUBLINGUAL Q5M PRN #1 bottle 12/14/17 Potassium Chloride [K-Dur] 20 meq PO DAILY #30 tab 12/14/17 Prednisone 40 mg PO DAILY #10 tab 12/14/17 Spironolactone [Aldactone] 25 mg PO DAILY #30 tab 12/14/17 The following prescriptions were given: Albuterol Sulfate [Proventil Hfa] 6.7 gm IH Q2H PRN PRN #1 hfa.aer.ad PRN Reason: Wheezing Hydrocodone/Acetaminophen [Vicodin 5-300 mg Tablet] 1 tab PO Q4H PRN PRN 7 Days #20 tab PRN Reason: pain in the joints Aspirin [Aspirin, Baby] 81 mg PO DAILY@0800 #30 tab.chew Atorvastatin Calcium [Lipitor] 80 mg PO QHS #30 tab Clopidogrel Bisulfate [Plavix] 75 mg PO DAILY #30 tab Furosemide [Lasix] 40 mg PO BID@1000,1800 #60 tab Gabapentin [Neurontin] 600 mg PO DAILY #30 tab Linezolid [Zyvox] 600 mg PO Q12H #12 tab Losartan Potassium [Cozaar] 50 mg PO DAILY #30 tab Nitroglycerin [Nitrostat] 0.4 mg SUBLINGUAL Q5M PRN #1 bottle PRN Reason: Cardiac/Chest Pain Potassium Chloride [K-Dur] 20 meq PO DAILY #30 tab Prednisone 40 mg PO DAILY #10 tab Spironolactone [Aldactone] 25 mg PO DAILY #30 tab Ascorbic Acid [Vitamin C] 500 mg PO BIDCM #60 tab Carvedilol [Coreg (Beta Emani)] 6.25 mg PO BID #60 tab Ferrous Gluconate 325 mg PO BIDCM #60 tab Isosorbide Mononitrate [Imdur] 60 mg PO BID #60 tab Primary Care Physician: Care Physician,No Primary [Primary Care Provider] - Please Follow Up With: Bradford Tirado MD When: 1 week to set up appt with Dr. Kruger for AICD Please Follow Up With: Ramy Davis MD When: when he gets medicaid established Proposed Discharge Date: 12/14/17 12/14/17 1547 <Electronically signed by Ludin Paredes DO> Date Ludin Paredes DO CC: No Primary Care Physician; Bradford Tirado MD; Fco Ahmadi D.O.; Ramy Davis MD CONSULTATION Observed: 12/14/2017 Status: F Source: JI 1:34 PM [facility] REPOSITORY [facility] Medical Records Department [address] [place] [address] [place] [address] Consultation 12/14/17 1329 MR#: [id number] Acct: [id number] Name: ANTHONY JUNG Rep #: [id number] : 1960 57 From: Morgan Cerda MD PCP: Care Physician, No Primary Status: ADM IN Y Location: ICU ICU06-1 Problem List (1) MRSA (methicillin resistant Staphylococcus aureus) infection Status: Acute Reason for Consult: (+) bcx Consulted by: Dr. Paredes History of Present Illness: The patient is a 57 year old M with ischemic cardiomyopathy who presented 12/11 from home via EMS with several days of progressive resp distress. He reports feeling like lungs were filling up with fluid. No fever, no sputum, no abd pain. Some chest pain. He was intubated by EMS, admitted to icu. Sputum cx with MRSA. Now on vanc. Was able to be extubated. Had cath done this AM. No new joint pain, no rash, no back pain. No prior h/o MRSA. Full ROS performed and neg except as noted above. - Medical History Past Medical History (Chronic Problems): Chronic Problems Systolic CHF, chronic (Chronic) CAD (coronary artery disease) (Chronic) COPD (chronic obstructive pulmonary disease) (Chronic) Tobacco abuse (Chronic) Medical non-compliance (Chronic) Ischemic cardiomyopathy (Chronic) Allergies/Adverse Reactions: Allergies No Known Allergies Allergy (Verified 12/10/17 23:03) Home Medications: Ambulatory Orders Medication Instructions Recorded Acetaminophen [Tylenol Tablet] 650 mg PO Q6H PRN PRN #0 tablet 09/26/16 - Social History Tobacco Use: cigarettes SMOKING STATUS:: Current every day smoker Vital Signs Temp Pulse Resp BP Pulse Ox 98.1 F 87 18 122/86 H 100 12/14/17 12:00 12/14/17 12:00 12/14/17 12:00 12/14/17 12:00 12/14/17 12:00 Oxygen Flow Rate (L/min) 2 Oxygen Delivery Method Room Air Weight: 65.5 kg Body Mass Index (BMI) 20.5 Microbiology Past 72 Hours 12/13/17 09:45 Blood Culture - Preliminary Blood Culture (Wb) - Anticubital Right Laboratory Tests Past 24 Hrs WBC RBC Hgb Hct MCV MCH MCHC RDW WBC 9.3 RBC 4.79 Hgb 10.5 L Hct 35.5 L MCV 74.1 L MCH 21.9 L MCHC 29.6 L RDW 20.5 H RDW Differential 54.4 H - Other Studies Radiology: [] reviewed Other Studies: [] Route of nutrition/ use of supplements: [] Nutritional Intake: [] IV Site: [] Linn Catheter: [] - Physical Exam General: Alert, Oriented x3, Cooperative, No apparent distress HEENT: Atraumatic, PERRLA, EOMI Neck: Supple, No Nodes Lungs: Clear to auscultation, Diminished Cardiovascular: Regular rate, Regular Rhythm Abdomen: Soft, Non Tender, Non-Distended Extremities: No edema Skin: No rashes IV Site: Peripheral, without redness Musculoskeletal: No Tenderness to Palpation of Joints or Extremities Neurological: Cranial nerves II-XII grossly intact - Assessment/Plan Antibiotics: [] Assessment/Plan: [] Active and Suspected Problems COPD exacerbation (Acute) Acute respiratory failure with hypoxemia (Acute) Elevated troponin (Acute) Iron deficiency anemia (Acute) NSVT (nonsustained ventricular tachycardia) (Acute) Acute bronchitis (Acute) Systolic CHF, acute on chronic (Acute) MRSA pneumonia - improving. Single Bcx now with GPC in groups. PCR pending. Spoke with micro lab. If this is MRSA, he needs to remain in hospital and continue on iv vanc. If it is not staph aureus, ok for d/c home to complete course of linezolid. No sign of endocarditis on exam. Thank you, will follow, d/w Dr. Paredes. 12/14/17 1334 <Electronically signed by Morgan Cerda MD> Date Morgan Cerda MD Cosigner Signature (if applicable): Date CC: No Primary Care Physician; Bradford Tirado MD; Fco Ahmadi D.O. Signed CBC-COMPLETE BLOOD CNT Collected: 12/14/2017 Status: F Source: JI NO DIFF 12:00 PM [facility] REPOSITORY TYPE CODE TESTS RESULT OUT OF RANGE REFERENCE UNITS LAB L100.1000 4.4-11.0 K/mm3 Normal WBC 9.3 LAB L100.1200 4.6-6.2 M/mm3 Normal RBC 4.79 LAB L100.1300 13.0-16.5 g/dl Low HGB 10.5 LAB L100.1400 40-54 % Low HCT 35.5 LAB L100.1500 80-94 fL Low MCV 74.1 LAB L100.1600 27.0-32.0 pg Low MCH 21.9 LAB L100.1700 32-36 g/gl Low MCHC 29.6 LAB L100.1810 11.6-14.6 % High RDW CV 20.5 LAB L100.1820 35.1-43.9 fl High RDW SD 54.4 LAB L100.1900 150-450 K/mm3 High PLT 531 LAB L100.2000 6.2-12.0 fl Normal MPV 8.5 Performed By: #### L100.0500, L100.4500 #### [facility] [address], [address] DIFFERENTIAL COMMENT Collected: 12/14/2017 Status: C Source: [place] 12:00 PM [facility] REPOSITORY TYPE CODE TESTS RESULT OUT OF RANGE REFERENCE UNITS LAB L100.4500 Normal SMEAR COMMENT Result Comment: 2+ ANISOCYTOSIS 1+ TARGET CELLS 1+ OVALOCYTES RARE SCHISTOCYTE PALTELETS APPEAR SLIGHTLY ELEVATED AMENDED REPORT 12/14/17 1250 SMEAR COMMENT previously reported as: 2+ ANISOCYTOSIS 1+ TARGET CELLS 1+ OVALOCYTES RARE SCHISTOCYTE Performed By: #### L100.0500, L100.4500 #### [facility] [address] [place], [address] CPK TOTAL, CREATINE Collected: 12/14/2017 Status: F Source: [place] KINASE 12:00 PM [facility] REPOSITORY TYPE CODE TESTS RESULT OUT OF RANGE REFERENCE UNITS LAB L501.3620 39-308 U/L Normal CPK TOTAL 67 Result Comment: Moderate Hemolysis, Result may be falsely increased. Performed By: #### L501.3620 #### [facility] [address] [place], [address] Observed: 12/14/2017 Status: F Source: JI CULTURE, BLOOD (WB) 12:00 PM [facility] REPOSITORY BC No growth in 5 days. Performed By: #### M200.1000 #### [facility] [address] [place], [address] TROPONIN-I Collected: 12/14/2017 Status: F Source: JI 5:00 AM [facility] REPOSITORY Order Comment: 'TROP' Serial specimen #1, #2, #3, or #4: 4 TYPE CODE TESTS RESULT OUT OF RANGE REFERENCE UNITS LAB L501.4010 <0.06 ng/mL High 0.07 TROPONIN-I Result Comment: TROPONIN-I EXPECTED VALUES <0.05 NEGATIVE 0.06 - 0.59 AT RISK OF MO > OR = 0.60 SUGGEST MO Performed By: #### L501.4010 #### [facility] [address] [place], [place], [address] CBC-COMPLETE BLOOD CNT Collected: 12/14/2017 Status: F Source: JI NO DIFF 5:00 AM [facility] REPOSITORY TYPE CODE TESTS RESULT OUT OF RANGE REFERENCE UNITS LAB L100.1000 4.4-11.0 K/mm3 High WBC 11.4 LAB L100.1200 4.6-6.2 M/mm3 Low RBC 4.35 LAB L100.1300 13.0-16.5 g/dl Low HGB 9.6 LAB L100.1400 40-54 % Low HCT 32.4 LAB L100.1500 80-94 fL Low MCV 74.5 LAB L100.1600 27.0-32.0 pg Low MCH 22.1 LAB L100.1700 32-36 g/gl Low MCHC 29.6 LAB L100.1810 11.6-14.6 % High RDW CV 20.3 LAB L100.1820 35.1-43.9 fl High RDW SD 52.9 LAB L100.1900 150-450 K/mm3 High PLT 509 LAB L100.2000 6.2-12.0 fl Normal MPV 8.3 Performed By: #### L100.0500, L100.4500 #### [facility] [address] [place], [address] DIFFERENTIAL COMMENT Collected: 12/14/2017 Status: F Source: JI 5:00 AM [facility] REPOSITORY TYPE CODE TESTS RESULT OUT OF RANGE REFERENCE UNITS LAB L100.4500 Normal SMEAR COMMENT SCANNED Result Comment: 1+ ANISOCYTOSIS Performed By: #### L100.0500, L100.4500 #### [facility] [address] [place], [address] PROTHROMBIN TIME W/INR Collected: 12/14/2017 Status: F Source: JI 5:00 AM [facility] REPOSITORY TYPE CODE TESTS RESULT OUT OF RANGE REFERENCE UNITS LAB L300.4150 11.7-14.9 SECONDS High PROTIME 15.2 LAB L300.4200 Normal INR 1.2 Performed By: #### L300.3900, L300.4310 #### [facility] [address] [place], [address] PARTIAL THROMBOPLAST Collected: 12/14/2017 Status: F Source: JI TIME 5:00 AM [facility] REPOSITORY TYPE CODE TESTS RESULT OUT OF RANGE REFERENCE UNITS LAB L300.4310 24.1-36.2 Seconds Normal PTT 26.7 Performed By: #### L300.3900, L300.4310 #### [facility] [address] [place], [address] BASIC METABOLIC Collected: 12/14/2017 Status: F Source: JI PROFILE (BMP) 5:00 AM [facility] REPOSITORY TYPE CODE TESTS RESULT OUT OF RANGE REFERENCE UNITS LAB L501.0100 74-106 mg/dL Normal GLU 90 Result Comment: Please note revised GLUCOSE reference range effective 2017. LAB L501.1000 7-18 mg/dL High BUN 34 LAB L501.1100 0.70-1.30 mg/dL Low CREAT,SERUM 0.60 Result Comment: The validity of the calculated GFR AND GFRAA in patients over 70 years has not been determined. Clinical correlation is essential. LAB L501.1110 >60 mL/min Normal EST GFR 145 Result Comment: Non- GFR Calc LAB L501.1115 >60 mL/min Normal EST GFR - AA 176 Result Comment: GFR Calc LAB L501.1255 ml/min Normal Estimated CRCL 118.50 LAB L501.1300 10-20 RATIO High BUN/CRE 56.2 LAB L501.2200 8.5-10 mg/dL Low .1 CA 8.1 LAB L501.5300 136-14 mmol/L 5 NA Normal 139 LAB L501.5600 3.5-5. mmol/L 1 K Normal 3.9 LAB L501.5900 98-107 mmol/L CL Normal 102 LAB L501.6100 21.0-3 mmol/L 2.0 CO2 Normal 31.0 LAB L501.6200 5-15 GAP Normal 6 Performed By: #### L500.2500 #### [facility] [address] [place], [place], [address] TROPONIN-I Collected: 12/13/2017 Status: F Source: [place] 5:00 PM [facility] REPOSITORY Order Comment: 'TROP' Serial specimen #1, #2, #3, or #4: 1 TYPE CODE TESTS RESULT OUT OF RANGE REFERENCE UNITS LAB L501.4010 <0.06 ng/mL High 0.07 TROPONIN-I Result Comment: TROPONIN-I EXPECTED VALUES <0.05 NEGATIVE 0.06 - 0.59 AT RISK OF MO > OR = 0.60 SUGGEST MO Performed By: #### L501.4010 #### [facility] [address] [place], [place], [address] Observed: 12/13/2017 Status: F Source: JI CULTURE, BLOOD (WB) 9:50 AM [facility] REPOSITORY Has pt arrived? Y BC No growth in 5 days. Performed By: #### M200.1000 #### [facility] [address] [place], [place], [address] Observed: 12/13/2017 Status: F Source: JI CULTURE, BLOOD (WB) 9:45 AM [facility] REPOSITORY Has pt arrived? Y BC AEROBIC BOTTLE GRAM STAIN: GRAM POSTIVE COCCI IN CLUSTERS RESULTS CALLED TO MAURILIO Howard/ICU 12/14/17 Yann Cornell. REPORT READ BACK BY SAME . Possible skin contamination, further Identification and sensitivity will be performed only by physician's request. ORGANISM 1: Staphylococcus epidermidis Amount Growth Growth Performed By: #### M200.1000, M100.636 #### [facility] [address] [place], [address] Observed: 12/13/2017 Status: C Source: JI BC GPC ID 9:45 AM [facility] REPOSITORY Has pt arrived? Y BC GPC ID Staphylococcus sp. Staphylococcus epidermidis Enterococcus sp. Not Detected Streptococcus spp. Not Detected Listeria spp Not Detected José Luis/vanB Not Detected mecA mecA Resistance Marker Detected NAAT METHOD Testing was performed using nucleic acid amplification ORGANISM 1: Staphylococcus epidermidis ORGANISM 2: mecA Resistance Marker Performed By: #### M200.1000, M100.636 #### [facility] [address] [place], [address] BASIC METABOLIC Collected: 12/13/2017 Status: F Source: JI PROFILE (BMP) 5:30 AM [facility] REPOSITORY TYPE CODE TESTS RESULT OUT OF RANGE REFERENCE UNITS LAB L501.0100 74-106 mg/dL High GLU 125 Result Comment: Fasting Glucose result from 100 to 125 mg/dL suggests IMPAIRED HOMEOSTASIS per A.D.A. criteria. Please note revised GLUCOSE reference range effective 2017. LAB L501.1000 7-18 mg/dL High BUN 32 LAB L501.1100 0.70-1.30 mg/dL Low CREAT,SERUM 0.64 Result Comment: The validity of the calculated GFR AND GFRAA in patients over 70 years has not been determined. Clinical correlation is essential. LAB L501.1110 >60 mL/min Normal EST GFR 137 Result Comment: Non- GFR Calc LAB L501.1115 >60 mL/min Normal EST GFR - AA 165 Result Comment: GFR Calc LAB L501.1255 ml/min Normal Estimated CRCL 111.09 LAB L501.1300 10-20 RATIO High BUN/CRE 50.2 LAB L501.2200 8.5-10 mg/dL .1 CA Normal 8.5 LAB L501.5300 136-14 mmol/L 5 NA Normal 137 LAB L501.5600 3.5-5. mmol/L 1 K Normal 4.2 LAB L501.5900 98-107 mmol/L CL Normal 100 LAB L501.6100 21.0-3 mmol/L 2.0 CO2 Normal 30.0 LAB L501.6200 5-15 GAP Normal 7 Performed By: #### L500.2500, L501.5200 #### [facility] [address] [place], [address] MAGNESIUM Collected: 12/13/2017 Status: F Source: [place] 5:30 AM [facility] REPOSITORY TYPE CODE TESTS RESULT OUT OF RANGE REFERENCE UNITS LAB L501.5200 1.6-2.6 mg/dL Normal MG 2.2 Result Comment: Please note revised Magnesium reference range effective 2017. Performed By: #### L500.2500, L501.5200 #### [facility] [address] [place], [address] 12 LEAD ELECTROCARDIOGRAM Observed: 12/12/2017 Status: F Source: [place] 3:36 PM [facility] REPOSITORY [facility] Cardiovascular Services [address] [place] [address] 12 Lead EKG 12/10/17 2308 MR#: [id number] Acct: [id number] Name: ANTHONY JUNG Rep #: [id number] : 1960 57 From: Martin Covarrubias MD Attending Dr: Ada Paredes Status: ADM IN Ordering Dr: Dana Stewart MD Date: 12/10/17 Location: ICU Sex: M C Admitted: 12/11/17 Test Reason : SHORTNESS OF BREATH Blood Pressure : / mmHG Vent. Rate : 112 BPM Atrial Rate : 112 BPM P-R Int : 182 ms QRS Dur : 100 ms QT Int : 356 ms P-R-T Axes : 075 -55 116 degrees QTc Int : 485 ms Sinus tachycardia Left axis deviation Septal infarct , age undetermined T wave abnormality, consider lateral ischemia Abnormal ECG Confirmed by MARTIN COVARRUBIAS MD ([id number]), video effects editor HEIDE EDMONDS ([id number]) on 12/12/2017 3:36:16 PM Referred By: VASILE Confirmed By:MARTIN COVARRUBIAS MD 12/12/17 5684 Date Martin Covarrubias MD CC: No Primary Care Physician; Dana Stewart MD Signed CONSULTATION Observed: 12/12/2017 Status: F Source: [place] 8:15 AM [facility] REPOSITORY [facility] Medical Records Department [address] [place] [address] Consultation 12/11/17 0455 MR#: [id number] Acct: [id number] Name: ANTHONY JUNG Rep #: [id number] : 1960 57 From: Fco Ahmadi DO PCP: Care Physician, No Primary Status: ADM IN Y Location: ICU ICU06-1 Reason for Consult Date of Consultation: 12/11/17 Reason for Consultation: Respiratory failure History of Present Illness: The patient is a 57-year-old male, with a history as outlined below, who presented to the emergency department on December 11 with complaints of shortness of breath. Per documentation, EMS was contacted after the patient was found to be in respiratory distress by his brother. The patient is reportedly prescribed home supplemental oxygen, but is currently noncompliant with its use due to a lack of insurance coverage. The patient was just evaluated in the emergency department on December 07 after presenting there with shortness of breath also. At that time, the patient was treated with aerosols and noted symptom improvement. It was recommended that he be admitted to the hospital. However, the patient refused. The patient was also hospitalized twice in October 2016 with breathing related issues. Surface echocardiogram completed in August 2016 revealed a mildly dilated LV with severe segmental systolic dysfunction and an ejection fraction of 15%. The patient did have evidence of a left to right interatrial shunt and a right ventricular systolic pressure estimated to be 39 mmHg. On presentation to the emergency department, the patient was noted to be afebrile, tachycardic and mildly hypertensive. He was tachypneic and requiring the use of noninvasive positive pressure ventilation. Initial laboratory evaluation revealed no evidence of a leukocytosis. INR was within normal limits. Chemistry profile was largely within normal limits. Serum lactate was normal. Troponin was mildly elevated to 0.08. BNP was elevated to 1576. MRSA screen was positive. Despite the implementation of BiPAP therapy, the patient remained in respiratory distress. Therefore, the decision was made to proceed with intubation. Plain film chest x-ray revealed no acute cardiopulmonary process. The patient did receive IV Lasix and IV Solu-Medrol while in the emergency department. He was subsequently admitted to the medical intensive care unit for ongoing management. Per the patient's brother, the patient has a history of ischemic cardiomyopathy and was following with a music coordinator in [place], who has since retired. He has not been routinely followed by a music coordinator recently. He has been traveling back and forth from [place] to [place], where his brother resides. His brother states that he was discharged from a hospital in [place] 10 days ago and then traveled here to [place], where he plans to stay indefinitely. The patient does have a reported history of tobacco abuse, questionable illicit drug use and a history of alcohol dependence. He has been inherently noncompliant previously. Past Medical History Past Medical History (Chronic Problems): Chronic Problems CHF (congestive heart failure) (Chronic) CAD (coronary artery disease) (Chronic) Tobacco abuse (Chronic) Medical non-compliance (Chronic) Ischemic cardiomyopathy (Chronic) Allergies No Known Allergies Allergy (Verified 12/10/17 23:03) Home Medications: Ambulatory Orders Medication Instructions Recorded Acetaminophen [Tylenol Tablet] 650 mg PO Q6H PRN PRN #0 tablet 09/26/16 Surgical History: - - heart stents Smoking Status: Current every day smoker - *Family History Maternal History Items: Heart Disease Paternal History Items: Heart Disease Review of Systems Unable to obtain accurate/complete ROS d/t: Due to current intubation and mechanical ventilation status Objective: The patient's most recent lab work, culture data and imaging studies have all been personally reviewed. Rapid influenza screen was negative. - Physical Exam General: - - Currently intubated, sedated and mechanically ventilated. Tolerating assist control mode mechanical ventilation. HEENT: Atraumatic, PERRLA, Normocephalic Oral: No Gingival or Mucosal Lesions/ Ulcerations, - - Endotracheal and OG tubes in place Neck: Supple, No Nodes, Trachea Midline Lungs: - - Mechanical breath sounds. Clear across anterior lung crews without wheezes, rales or rhonchi. Cardiovascular: Regular rate, Regular Rhythm, Normal S1, Normal S2, No murmurs, No rub noted, No Gallop Abdomen: Bowel Sounds Present, Soft, Non Tender, Non-Distended Extremities: No clubbing, No cyanosis, No edema Skin: No rashes, No breakdown Musculoskeletal: No Muscle Wasting Lymphatic: No Cervical, Supraclavicular, or Inguinal Adenopathy Neurological: - - Currently sedated with a RASS of -2. Moves all extremities spontaneously. Not following simple commands at this time. Vital Signs Temp Pulse Resp BP Pulse Ox 97.4 F L 96 20 H 128/85 H 100 12/11/17 04:43 12/11/17 04:43 12/11/17 04:43 12/11/17 04:43 12/11/17 04:43 Oxygen Delivery Method Mechanical Ventilator Weight: 146 lb 2.664 oz Body Mass Index (BMI) 20.5 Intake and Output for Last 24 Hours Output Total 1900 / 1900 Balance -1900 / -1900 Laboratory Tests Past 24 Hrs MRSA (PCR) Pending Labs (Last 48 Hours) WBC 8.2 RBC 4.28 L Hgb 9.3 L WBC RBC Hgb Hct MCV MCH MCHC RDW RDW Differential Plt Count MPV Immature Gran % (Auto) WBC RBC Hgb Hct MCV MCH Microbiology 12/11/17 00:54 Mucosa - Nasopharyngeal Influenza Types A,B Direct FA ([facility]) - Final Clinical Impression(s) from Imaging Studies Chest X-Ray 12/10/17 23:05 IMPRESSION: No evidence of focal consolidation or acute process. Electronically Signed: Noel Saha DO at 23:23 EDT , Service support , Chest X-Ray 12/11/17 00:01 IMPRESSION: The NG tube is just past the gastroesophageal junction and could be advanced 5 to 10 cm. Endotracheal tube in satisfactory position. Cardiomegaly. Electronically Signed: Elizabeth Welsh MD at 1:01 EDT Tel , Service support , Assessment/Plan RECOMMENDATIONS: 1. Continue supportive measures with mechanical ventilation. Plan for daily. Spontaneous awakening and breathing trials. 2. Continue scheduled aerosol treatments and steroids. 3. Discontinue supplemental IV fluids 4. Restart home cardiac medications 5. Trend troponins and obtain echocardiogram. Cardiology consultation is pending. 6. Continue propofol and fentanyl for sedation. Goal RASS of -1 to 1. 7. Obtain sputum culture and respiratory viral panel. 8. Okay to start tube feeds today. 9. Continue appropriate ICU prophylaxis with Pepcid and Lovenox IMPRESSIONS: 1. Acute on chronic hypoxemic respiratory failure likely secondary to decompensated heart failure Continue current supportive measures with mechanical ventilation. Wean FiO2 to maintain oxygen saturations 88-92%. Plan to continue IV diuretics as ordered. Cardiology is following to assist with medical management. Plan for daily paired spontaneous awakening and breathing trials. Continue fentanyl and propofol for sedation. Goal RASS of -1 to 1. Okay to start tube feeds. Continue appropriate ICU prophylaxis. 2. Severe ischemic cardiomyopathy/troponin elevation As above, will continue diuretics, beta-emani and ARB. Will attempt to obtain outside cardiac medical records from [place]. Repeat echocardiogram is pending. Cardiology is following accordingly. 3. Questionable COPD of unknown severity/tobacco dependence This is a presumptive diagnosis, as there are no PFTs on file for review. We will plan to continue scheduled aerosol treatments as ordered, along with IV Solu-Medrol. The patient can likely be transitioned to prednisone beginning tomorrow. Outpatient pulmonary follow-up and PFTs are strongly recommended. Smoking cessation is strongly advisable. Nicotine replacement therapy can be offered to the patient while he is admitted to the hospital. 4. Microcytic anemia/history of alcohol abuse/suspected illicit drug use Complicates care, management, recovery and prognosis. Continue supportive measures as noted above. Iron studies are pending. Recommend physical therapy evaluation, once medically stabilized. TIME: 55 minutes of critical care time, independent of procedures, was spent addressing the patient's acute on chronic respiratory failure, decompensated heart failure, severe ischemic cardiomyopathy, troponin elevation, baseline COPD, review of all data and collaboration with the care team. ([id number]) Code Visit 9xxxx: [id number] Critical care first hour 12/12/17 0815 <Electronically signed by Fco Ahmadi DO> Date Fco Ahmadi DO Cosigner Signature (if applicable): Date CC: No Primary Care Physician; Bradford Tirado MD; Fco Ahmadi D.O. Signed BASIC METABOLIC Collected: 12/12/2017 Status: F Source: [place] PROFILE (BMP) 4:15 AM [facility] REPOSIT[facility] TYPE CODE TESTS RESULT OUT OF RANGE REFERENCE UNITS LAB L501.0100 74-106 mg/dL High GLU 127 Result Comment: Fasting Glucose result greater than or equal to 126 mg/dL suggests DIABETES MELLITUS per A.D.A. criteria. Please note revised GLUCOSE reference range effective 2017. LAB L501.1000 7-18 mg/dL High BUN 27 LAB L501.1100 0.70-1.30 mg/dL Low CREAT,SERUM 0.68 Result Comment: The validity of the calculated GFR AND GFRAA in patients over 70 years has not been determined. Clinical correlation is essential. LAB L501.1110 >60 mL/min Normal EST GFR 127 Result Comment: Non- GFR Calc LAB L501.1115 >60 mL/min Normal EST GFR - AA 154 Result Comment: GFR Calc LAB L501.1255 ml/min Normal Estimated CRCL 109.69 LAB L501.1300 10-20 RATIO High BUN/CRE 39.8 LAB L501.2200 8.5-10 mg/dL Low .1 CA 8.3 LAB L501.5300 136-14 mmol/L 5 NA Normal 142 LAB L501.5600 3.5-5. mmol/L 1 K Normal 4.3 LAB L501.5900 98-107 mmol/L CL Normal 103 LAB L501.6100 21.0-3 mmol/L 2.0 CO2 Normal 31.0 LAB L501.6200 5-15 GAP Normal 8 Performed By: #### L500.2500, L501.2300, L501.5200 #### [facility] [address] [place], [address] PHOSPHORUS Collected: 12/12/2017 Status: F Source: JI 4:15 AM [facility] REPOSITORY TYPE CODE TESTS RESULT OUT OF RANGE REFERENCE UNITS LAB L501.2300 2.5-4.9 mg/dL Normal PHOS 4.4 Performed By: #### L500.2500, L501.2300, L501.5200 #### [facility] [address] [place], [address] MAGNESIUM Collected: 12/12/2017 Status: F Source: JI 4:15 AM [facility] REPOSITORY TYPE CODE TESTS RESULT OUT OF RANGE REFERENCE UNITS LAB L501.5200 1.6-2.6 mg/dL Normal MG 2.3 Result Comment: Please note revised Magnesium reference range effective 2017. Performed By: #### L500.2500, L501.2300, L501.5200 #### [facility] [address] [facility] [place], [place], [id number] CBC-COMPLETE BLOOD CNT Collected: 12/12/2017 Status: F Source: JI NO DIFF 4:15 AM [facility] REPOSITORY TYPE CODE TESTS RESULT OUT OF RANGE REFERENCE UNITS LAB L100.1000 4.4-11.0 K/mm3 High WBC 12.3 LAB L100.1200 4.6-6.2 M/mm3 Low RBC 4.27 LAB L100.1300 13.0-16.5 g/dl Low HGB 9.4 LAB L100.1400 40-54 % Low HCT 31.7 LAB L100.1500 80-94 fL Low MCV 74.2 LAB L100.1600 27.0-32.0 pg Low MCH 22.0 LAB L100.1700 32-36 g/gl Low MCHC 29.7 LAB L100.1810 11.6-14.6 % High RDW CV 20.4 LAB L100.1820 35.1-43.9 fl High RDW SD 53.5 LAB L100.1900 150-450 K/mm3 High PLT 451 LAB L100.2000 6.2-12.0 fl Normal MPV 8.7 Performed By: #### L100.0500, L100.4500 #### [facility] [address] [place], [place], [id number] DIFFERENTIAL COMMENT Collected: 12/12/2017 Status: F Source: [place] 4:15 AM [facility] REPOSITORY TYPE CODE TESTS RESULT OUT OF RANGE REFERENCE UNITS LAB L100.4500 Normal SMEAR COMMENT SCAN Result Comment: ANISOCYTOSIS 2+ HYPOCHROMIA 1+ POLYCHROMASIA 1+ MICROCYTOSIS 1+ Performed By: #### L100.0500, L100.4500 #### [facility] [address] [place], [address] CHEST 1 VIEW Observed: 12/12/2017 Status: F Source: [place] (PORTABLE) 12:01 AM [facility] REPOSITORY [facility] Imaging Services [address] [place] [address] Chest 1 View (Portable) MR#: [id number] Acct: [id number] Name: ANTHONY JUNG Rep #: [id number] : 1960 M 57 From: Ilsa Lobato MD PCP: Care Physician, No Primary Status: ADM IN Study: Chest 1 View (Portable) Date of Exam: 12/12/17 Exam# [id number] Ordering Dr: Ludin Paredes DO STUDY: X-RAY CHEST REASON FOR EXAM: Male, 57 years old. Shortness of breath, intubated, patient could not hold still. TECHNIQUE: Single AP portable view of the chest. COMPARISON: 12/11/2017 FINDINGS: There are superimposed monitor leads. Endotracheal tube tip approximately 2.5 cm superior to the zoraida. Enteric tube tip over the gastric fundus, distal sidehole at the gastroesophageal junction. There are areas of hyperinflation. There is no focal parenchymal abnormality. Decrease of interstitial prominence seen on prior exam. There is no demonstrated pleural abnormality. There is borderline cardiomegaly. There are coronary artery calcifications. Normal mediastinum and alberto. Normal visualized pulmonary arteries. Normal visualized aortic arch and descending thoracic aorta. Age-appropriate thoracic spine. There are degenerative changes of the acromioclavicular joints. There is no demonstrated abnormality of the visualized soft tissue structures of the upper abdomen. RAD/Chest 1 View (Portable) IMPRESSION: Decrease of previous interstitial prominence likely superimposed component of COPD. There is borderline cardiac size. Other nonacute findings as outlined above. No pulmonary edema, congestive heart failure or confluent pneumonia. Electronically Signed: Ilsa Lobato MD at 6:15 EDT , Service support , CC: No Primary Care Physician; Ada Paredes Entry Level Software Engineer: Signed TROPONIN-I Collected: 12/11/2017 Status: F Source: [place] 7:00 PM [facility] REPOSITORY Order Comment: 'TROP' Serial specimen #1, #2, #3, or #4: 4 TYPE CODE TESTS RESULT OUT OF RANGE REFERENCE UNITS LAB L501.4010 <0.06 ng/mL High 0.09 TROPONIN-I Result Comment: TROPONIN-I EXPECTED VALUES <0.05 NEGATIVE 0.06 - 0.59 AT RISK OF MO > OR = 0.60 SUGGEST MO Performed By: #### L501.4010 #### [facility] [address] [place], [place], [address] BASIC METABOLIC Collected: 12/11/2017 Status: F Source: [place] PROFILE (BMP) 4:15 PM [facility] REPOSITORY TYPE CODE TESTS RESULT OUT OF RANGE REFERENCE UNITS LAB L501.0100 74-106 mg/dL High GLU 119 Result Comment: Fasting Glucose result from 100 to 125 mg/dL suggests IMPAIRED HOMEOSTASIS per A.D.A. criteria. Please note revised GLUCOSE reference range effective 2017. LAB L501.1000 7-18 mg/dL High BUN 22 LAB L501.1100 0.70-1.30 mg/dL Low CREAT,SERUM 0.56 Result Comment: The validity of the calculated GFR AND GFRAA in patients over 70 years has not been determined. Clinical correlation is essential. LAB L501.1110 >60 mL/min Normal EST GFR 157 Result Comment: Non- GFR Calc LAB L501.1115 >60 mL/min Normal EST GFR - AA 190 Result Comment: GFR Calc LAB L501.1255 ml/min Normal Estimated CRCL 133.19 LAB L501.1300 10-20 RATIO High BUN/CRE 38.9 LAB L501.2200 8.5-10 mg/dL Low .1 CA 8.3 LAB L501.5300 136-14 mmol/L 5 NA Normal 141 LAB L501.5600 3.5-5. mmol/L 1 K Normal 4.3 LAB L501.5900 98-107 mmol/L CL Normal 106 LAB L501.6100 21.0-3 mmol/L 2.0 CO2 Normal 29.0 LAB L501.6200 5-15 GAP Normal 6 Performed By: #### L500.2500 #### [facility] [address] [place], [address] TROPONIN-I Collected: 12/11/2017 Status: F Source: [place] 1:15 PM [facility] REPOSITORY Order Comment: 'TROP' Serial specimen #1, #2, #3, or #4: 3 TYPE CODE TESTS RESULT OUT OF RANGE REFERENCE UNITS LAB L501.4010 <0.06 ng/mL High 0.08 TROPONIN-I Result Comment: TROPONIN-I EXPECTED VALUES <0.05 NEGATIVE 0.06 - 0.59 AT RISK OF MO > OR = 0.60 SUGGEST MO Performed By: #### L501.4010 #### [facility] [address] [place], [address] CONSULTATION Observed: 12/11/2017 Status: F Source: [place] 11:19 AM [facility] REPOSITORY [facility] Medical Records Department [address] [place] [address] Consultation 12/11/17 1109 MR#: [id number] Acct: [id number] Name: WAYNE GAMBLEANTHONY Kohli Raffi Rep #: [id number] : 1960 57 From: Bradford Tirado MD PCP: Care Physician, No Primary Status: ADM IN Y Location: ICU ICU06-1 Problem List (1) Dyspnea Status: Acute (2) CHF (congestive heart failure) Status: Chronic Qualifiers: Heart failure type: unspecified (3) CAD (coronary artery disease) Status: Chronic Reason for Consult Date of Consultation: 12/11/17 Reason for Consultation: CHF, cardiomyopathy, respiratory distress, non-STEMI History of Present Illness: The patient is a 57 year old M, currently intubated, no family members available, recent medical records from [place] reviewed which indicate the patient has a history of what appears to be ischemic cardiomyopathy with an EF around 15-20%, COPD, hypertension, hypercholesterolemia, CHF and tobacco abuse. Patient was apparently found by family member in respiratory distress at home, EMS was called, and the patient was intubated emergently in the field. The patient had previously visited the emergency room on 12/07/17 with complaints of shortness of breath and a chest x-ray was performed which demonstrated a possible right-sided infiltrate. Home O2 was supposed to be set up and apparently did not take place. Patient's condition deteriorated requiring emergent intubation. Overnight the patient has been intubated, sedated on propofol and fentanyl drip, and had a mild troponin release of 0.08 on 3 sets. EKG demonstrated sinus tachycardia with evidence of lateral ST and T-wave changes, consistent with ischemia versus LVH with repolarization abnormality. A 2D echo was performed today which demonstrated severe LV dysfunction with an EF around 15-20%, unchanged from previous echo in 2016. Patient is currently stable. There are no previous catheterization reports here [facility]. [] Past Medical History Allergies/Adverse Reactions: Allergies No Known Allergies Allergy (Verified 12/10/17 23:03) Home Medications: Ambulatory Orders Medication Instructions Recorded Acetaminophen [Tylenol Tablet] 650 mg PO Q6H PRN PRN #0 tablet 09/26/16 Past Medical History (Chronic Problems): Chronic Problems CHF (congestive heart failure) (Chronic) CAD (coronary artery disease) (Chronic) Tobacco abuse (Chronic) Medical non-compliance (Chronic) Ischemic cardiomyopathy (Chronic) Surgical History: - - heart stents - *Family History Maternal History Items: Heart Disease Paternal History Items: Heart Disease Smoking Status: Current every day smoker Review of Systems - Review of Systems General: Denies: Fever, Night Sweats, Fatigue Cardiovascular: Reports: Shortness of Breath, Shortness of Breath at Rest. Denies: Chest Discomfort, Orthopnea, PND, Peripheral Edema, Palpitations, Lightheadedness, Dizziness, Near Syncope, Syncope Respiratory: Denies: Cough, Sputum Production, Hemoptysis Gastrointestinal: Denies: Hematemesis, Hematochezia, Melena Genitourinary: Denies: Dysuria, Hematuria Skin: Denies: Rash Subjectve: Patient sedated, intubated, on fentanyl and propofol drips. No acute distress. Objective: Vital Signs Temp Pulse Resp BP Pulse Ox 97.9 F 91 18 129/94 H 100 12/11/17 07:00 12/11/17 09:15 12/11/17 09:15 12/11/17 07:00 12/11/17 10:00 Oxygen Delivery Method Mechanical Ventilator Weight: 146 lb 2.664 oz Body Mass Index (BMI) 20.5 Intake and Output for Last 24 Hours Intake Total 323 / 323 Output Total 2850 / 2850 Balance -2527 / -2527 General: Awake, Alert, Oriented x 3 HEENT: PERRL, EOMI, Sclera Non Icteric Neck: Supple, Good ROM, No Lymph Node Enlargement Lungs: Clear to auscultation Cardiovascular: Regular Rhythm, Normal S1, Normal S2, No Murmurs, No Rubs, No Gallops Vascular: No Carotid Bruits, Normal Femoral Pulses, Normal Radial Pulses, Normal Dorsalis Pedal Pulse, Normal Posterior Tibial Pulses Abdomen: Bowel Sounds Present, Soft, Non Tender, No HSM, No Organomegaly Extremities: No Cyanosis, No Clubbing, No edema Neurological: No Focal Motor or Sensory Deficit 12/11/17 05:50: Sodium 140, Potassium 4.2, Chloride 104, Carbon Dioxide 25.0, Anion Gap 11, BUN 20 H, Creatinine 0.67 L, Est GFR (MDRD) Af Amer 157, Est GFR (MDRD) Non-Af 130, BUN/Creatinine Ratio 30.0 H, Glucose 140 H, Calcium 8.6, Total Bilirubin 0.70, Troponin I 0.08 H 12/11/17 05:50: Sodium 139, Potassium 4.2, Chloride 103, Carbon Dioxide 26.0, Anion Gap 10, BUN 21 H, Creatinine 0.61 L, Est GFR (MDRD) Af Amer 173, Est GFR (MDRD) Non-Af 143, BUN/Creatinine Ratio 34.3 H, Glucose 143 H, Calcium 8.5, Magnesium 2.1 12/11/17 05:50: WBC 6.3, RBC 4.17 L, Hgb 9.2 L, Hct 30.8 L, MCV 73.9 L, MCH 22.1 L, MCHC 29.9 L, RDW 20.1 H, RDW Differential 52.6 H, Plt Count 403, MPV 8.7, Immature Gran % (Auto) 0.500, Neut % (Auto) 91.6 H, Lymph % (Auto) 6.7 L, [place] % (Auto) 1.0, Eos % (Auto) 0.0, Baso % (Auto) 0.2, Absolute Neuts (auto) 5.8, Total Counted Not Reportable 12/11/17 05:50: Iron 27 L, TIBC 439, Iron Saturation 6.2 L, Ferritin 46 12/11/17 05:50: Phosphorus 5.2 H 12/11/17 06:11: pH 7.46 H, Bicarbonate Actual 28.5 H, POC Total CO2 30, Base Excess 5 H, O2 Saturation 100 H, ABG pCO2 40.3, ABG pO2 187 H 12/11/17 09:20: Troponin I 0.08 H Rhythm: Telemetry negative EKG: As above ECHO: As above Stress Test: Cardiac Cath: Pending PCI: CT Surgery: Holter monitor: EPS: PPM: CXR: Chest CT Scan: Assessment/Plan 1. Ischemic cardiomyopathy: The patient presumably has a history of ischemic cardiomyopathy but no specific medical records are in the chart at this time. There are no family members available to discuss, but he apparently has had a known severe LV dysfunction at least since August 2016 at which time he had an echocardiogram indicating his severe LV dysfunction. Do not see that he is ever had a heart catheterization at our hospital, and may have had this done down in [place]. At this point I would recommend judicious use of IV fluids, fluid restriction of 1500 cc per day, max concentration of all IV drips, and matching I's and O's on a daily basis. Patient's troponins have been relatively flat at 0.08 3 sets. His rhythm has remained stable. I would recommend that we attempt to acquire medical records from wherever his primary cardiac care is located to determine the severity of his cardiomyopathy, his last catheterization, and if he has had any stents in the past. Patient may require repeat catheterization to determine if he has had any deterioration of his coronary anatomy which may require either intervention or bypass surgery. I reviewed his chest x-ray which demonstrated a possible infiltrate versus edema over his right lung, no pleural effusions are noted, and appears to have responded from IV diuretic therapy. I agree with IV diuresis with Lasix 40 mg IV twice daily until the patient is reached his dry weight and his weaning parameters have improved to the point where he can be extubated. If efforts to wean the patient off the ventilator unsuccessful, he may require diagnostic coronary angiogram while he is intubated plus/minus intervention, and/or intruding balloon pump to assist with afterload reduction. At this point I would continue Coreg 3.125 mill grams p.o. twice daily, and losartan 25 mg p.o. daily for afterload reduction. 2. COPD: The patient also comes with a diagnosis of COPD which may be superimposed on his LV dysfunction and CHF. Dr. Ahmadi consulted. 3. Tobacco cessation: The patient is apparently an active smoker, and would recommend highly that he discontinue all tobacco products. 4. Thank you very much for the opportunity to precipitate the cardiac care of your patient. Consultation time took place between 1045 and 11:20 AM. Code Visit Inpatient E AND M: [id number] Init Hosp 12/11/17 1119 <Electronically signed by Bradford Tirado MD> Date Bradford Tirado MD Cosigner Signature (if applicable): Date CC: No Primary Care Physician; Bradford Tirado MD; Fco Ahmadi D.O. Signed Observed: 12/11/2017 Status: F Source: JI CULTURE, SPUTUM 11:10 AM [facility] REPOSITORY Gram Stain Acceptable Specimen? Yes (<25 Epithelial cells per/lpf) Gram Stain 4+ Gram positive cocci 3+ Gram positive rods 2+ Gram negative rods 2+ White Blood Cells No Epithelial cells Resp. Culture NO NORMAL SUSY ISOLATED RESULTS CALLED TO Nathalie ANTONIO 12/13/17 0843 Carmen Hunt. REPORT READ BACK BY MAURILIO. ORGANISM 1: Meth. resistant Staph. aureus Amount Growth 3+ Meth. resistant Staph. aureus: REACTION Benzylpenicillin NF >=0.5 R Cefoxitin *NF + Clindamycin $$ >=8 R Inducable Clindamycin Resistan - Erythromycin $ >=8 R Gentamicin $ <=0.5 S Levofloxacin $ >=8 R Linezolid $$$$ 1 S Oxacillin NF >=4 R Tigecycline $$$$ <=0.12 S Rifampin $$ <=0.5 S Tetracycline NF >=16 R Trimethoprim/Sulfametho $ <=10 S Vancomycin $ 1 S (NF) indicates non-formulary drug at [facility]. Approval by Infectious Disease Specialist required before non-formulary drugs may be ordered and/or dispensed. * CLSI guidelines does not recommend testing of cephalosporins. This interpretation is deduced from Beta-lactam/penicillin results. Performed By: #### M100.0800 #### [facility] [address] [facility] [place], [address] ECHOCARDIOGRAM COMPLETE Observed: 12/11/2017 Status: F Source: [place] 10:14 AM [facility] REPOSITORY [facility] Cardiovascular Services [address] [place] [address] Echo Complete 12/11/17 0721 MR#: [id number] Acct: [id number] Name: ANTHONY JUNG Raffi Rep #: [id number] : 1960 57 From: Bradford Tirado MD Attending Dr: Ada Paredes Status: ADM IN Ordering Dr: Ludin Paredes. DO Date: 12/11/17 Location: ICU Sex: M C Admitted: 12/11/17 Reason For Study: CHF Procedure This was a 2D Doppler, Color Flow transthoracic echocardiogram. Exam performed portable in ICU/CCU. Left Ventricle Moderately dilated left ventricle. The estimated ejection fraction is 15-20 %. Stage 2 diastolic dysfunction. There is severe global hypokinesis of the left ventricle. Right Ventricle Mildly dilated right ventricle. Normal systolic function. Atria Normal left atrium. Normal right atrium. Normal atrial septum. Probable patent foramen ovale. Color flow evidence of L to R shunt. Mitral Valve The mitral valve is structurally normal. No prolapse or stenosis seen. Mild (1+) mitral valve insufficiency. Tricuspid Valve Normal tricuspid valve. Mild (1+) tricuspid valve insufficiency. Right ventricular systolic pressure estimated to be 43 mmHg. Mild pulmonary hypertension. Aortic Valve Normal aortic valve. Trisinus/trileaflet aortic valve. Pulmonic Valve Normal pulmonic valve. Great Vessels Normal aortic root. Normal arch. The inferior vena cava is dilated. No collapse of the inferior vena cava. Pericardium/Pleural No pericardial effusion. MMode/2D Measurements AND Calculations LVIDd: 5.6 cm IVSd: 0.75 cm Ao root diam: 3.7 cm LVIDs: 4.8 cm LVPWd: 1.0 cm LA dimension: 3.9 cm RVDd: 3.9 cm FS: 14.9 % LAV(MOD-bp): 62.3 ml LA A4 area: 19.9 cm2 RA A4 area: 18.4 cm2 LAV(MOD-bp) Indexed: 34.1 ml/m2 LAV(MOD-sp2): 62.0 ml LAV(MOD-sp4): 60.4 ml Doppler Measurements AND Calculations MV E max fany: 124.8 cm/sec Ao V2 max: 118.2 cm/sec LV V1 max: 80.2 cm/sec MV A max fany: 111.1 cm/sec Ao max P.6 mmHg LV V1 max P.6 mmHg MV E/A: 1.1 Interpretation Summary Moderately dilated left ventricle. The estimated ejection fraction is 15-20 %. There is severe global hypokinesis of the left ventricle. Stage 2 diastolic dysfunction. Mildly dilated right ventricle. Color flow evidence of L to R shunt. Mild (1+) mitral valve insufficiency. Mild (1+) tricuspid valve insufficiency. Right ventricular systolic pressure estimated to be 43 mmHg. Mild pulmonary hypertension. Compared to echo report dated 09/26/2016, no appreciable changes noted. Ordering Physician: Ada Paredes Performed By: Hayde Henriquez, WENDY, RVT 12/11/17 1014 Date Bradford Tirado MD CC: No Primary Care Physician; Ada Paredes Date Dictated: 12/11/17720 Date Transcribed: 12/11/17 1014 Entry Level Software Engineer: Signed ALCOHOL, BLOOD Collected: 12/11/2017 Status: F Source: [place] (MEDICAL)-SERUM 8:55 AM [facility] REPOSITORY TYPE CODE TESTS RESULT OUT OF RANGE REFERENCE UNITS LAB L501.9100 mg/dL Normal SERUM 4.0 ETOH Result Comment: The serum:whole blood ethanol ratio is approximately 1.14 and varies slightly with hematocrit. Medical Alcohol reference interval and critical value in non-tolerant individuals; 50 - 100 Impairment 100 Intoxication 100 - 250 Severe Poisoning 250 - 400 Deep/possible fatal coma Performed By: #### L505.5000, L501.9100 #### [facility] [address] [place], [address] URINE DRUG SCREEN Collected: 12/11/2017 Status: F Source: JI (VISTA) 8:35 AM [facility] REPOSITORY TYPE CODE TESTS RESULT OUT OF RANGE REFERENCE UNITS LAB L505.0075 TO BE Normal CONFIRMED Result Comment: CONFIRMATORY TESTING FOR ALL POSITIVE URINE DRUG SCREEN RESULTS WILL ONLY BE SENT OUT UPON PHYSICIAN ORDER. VISTA Urine Drug Screen methods provide only preliminary analytical test results. A more specific alternate chemical method must be used in order to obtain a confirmed analytical result. Gas chromatography/mass spectrometery (GC/MS) is the preferred confirmatory method. Clinical consideration and professional judgement should be applied to any drug of abuse test result, particularly when preliminary positive results are used. URINE TCA TESTING MUST BE ORDERED SEPARATELY. USE TEST MNEMONIC: [facility] LAB L505.5005 VISTA UDS PH 7 Normal LAB L505.5015 <1000 ng/mL AMPHETAMINES Normal NEGATIVE LAB L505.5025 < 200 ng/mL BARBITIURATES Normal NEGATIVE LAB L505.5035 < 200 High ng/mL BENZODIAZIPINE POSITIVE LAB L505.5045 < 300 ng/mL COCAINE Normal NEGATIVE LAB L505.5055 < 500 ng/mL ECSTACY Normal NEGATIVE LAB L505.5065 < 300 ng/mL METHADONE Normal NEGATIVE LAB L505.5075 < 300 ng/mL OPIATES Normal NEGATIVE LAB L505.5085 < 25 ng/mL PCP Normal NEGATIVE LAB L505.5095 < 50 ng/mL THC Normal NEGATIVE Performed By: #### L505.5000, L501.9100 #### [facility] [facility] [place], [place], [address] Observed: 12/11/2017 Status: F Source: [place] RESPIRATORY PANEL 7:25 AM [facility] MOLECULAR REPOSITORY RP PANEL ADENOVIRUS Not Detected HUMAN METAPHNEUMO Not Detected INFLUENZA A Not Detected INFLUENZA A (SUBTYPE H1) Not Detected INFLUENZA A (SUBTYPE H3) Not Detected INFLUENZA B Not Detected PARAINFLUENZA 1 Not Detected PARAINFLUENZA 2 Not Detected PARAINFLUENZA 3 Not Detected PARAINFLUENZA 4 Not Detected RHINOVIRUS Not Detected RSV A Not Detected RSV B Not Detected NAAT METHOD Testing was performed using nucleic acid amplification Performed By: #### M100.638 #### [facility] [address] [place] [address], [id number] CHEST 1 VIEW Observed: 12/11/2017 Status: F Source: [place] (PORTABLE) 7:10 AM [facility] REPOSITORY [facility] Imaging Services [address] [place] [address] Chest 1 View (Portable) MR#: [id number] Acct: [id number] Name: ANTHONY JUNG Rep #: [id number] : 1960 M 57 From: Darrick Coreas MD PCP: Care Physician, No Primary Status: ADM IN Study: Chest 1 View (Portable) Date of Exam: 12/11/17 Exam# [id number] Ordering Dr: Fco Ahmadi DO STUDY: X-RAY CHEST REASON FOR EXAM: Male, 57 years old. Shortness of breath. Acute respiratory failure. TECHNIQUE: Single AP portable view of the chest. COMPARISON: Comparison is made with prior study dated December 11, 2017 at 12:32 AM. FINDINGS: An endotracheal tube is in situ. The tip is at 2.6 cm proximal to the zoraida. A nasogastric tube is seen. The tip is below the left hemidiaphragm. EKG electrodes are seen. Minimal increased markings at the left lung base suggestive of early left basilar atelectasis. There is no demonstrated pleural abnormality. Normal size heart. Normal mediastinum and alberto. Normal visualized pulmonary arteries. There is atherosclerotic calcification of the aortic arch with tortuosity. Normal visualized thoracic spine. Normal visualized ribs, clavicles, and shoulders. There is no demonstrated abnormality of the visualized soft tissue structures of the upper abdomen. RAD/Chest 1 View (Portable) IMPRESSION: Mild increased markings at the left lung base suggesting atelectasis. Support tubes are in good position. Electronically Signed: Darrick Coreas MD at 11:05 EDT Tel [phone], Service support , CC: No Primary Care Physician; Fco Ahmadi D.O. Entry Level Software Engineer: Signed BLOOD GASES BY CPS Collected: 12/11/2017 Status: F Source: JI 6:11 AM [facility] REPOSITORY TYPE CODE TESTS RESULT OUT OF RANGE REFERENCE UNITS LAB L9000.9990 Normal BLD GAS TYPE ART LAB L9001.1000 Normal SITE R Radial LAB L9001.1048 Normal Mode A-C LAB L9001.1050 O2 Normal Delivery Dev Vent LAB L9001.1060 MV Normal 10.00 LAB L9001.1065 Vt Normal 500 LAB L9001.1070 RR Normal 14 LAB L9001.1074 Normal FI02 40 LAB L9001.1076 Normal PEEP 5 LAB L9001.1104 Normal Results To HOSP LAB L9001.1105 Normal Time Given 605 LAB L9001.1110 7.35-7.45 High pH - I-STAT 7.46 LAB L9001.1210 35-45 mmHg Normal pCO2 - ISTAT 40.3 LAB L9001.1310 75-100 mmHG High PO2 I-STAT 187 LAB L9001.2300 22-26 mmol/L High HCO3 ISTAT 28.5 LAB L9001.2400 -2 to +2 mmol/L High BE ISTAT 5 LAB L9001.2415 mmol/L Normal TOTAL CO2 30 ISTAT LAB L9001.2425 95-99 % High SO2 ISTAT 100 Performed By: #### L9000.0800 #### [facility] Point of Care [address] [place], [place] [address] CBC W/DIFF, AUTOMATED Collected: 12/11/2017 Status: F Source: JI 5:50 AM [facility] REPOSITORY Order Comment: Order Date: 12/11/17 TYPE CODE TESTS RESULT OUT OF RANGE REFERENCE UNITS LAB L100.1000 4.4-11.0 K/mm3 Normal WBC 6.3 LAB L100.1200 4.6-6.2 M/mm3 Low RBC 4.17 LAB L100.1300 13.0-16.5 g/dl Low HGB 9.2 LAB L100.1400 40-54 % Low HCT 30.8 LAB L100.1500 80-94 fL Low MCV 73.9 LAB L100.1600 27.0-32.0 pg Low MCH 22.1 LAB L100.1700 32-36 g/gl Low MCHC 29.9 LAB L100.1810 11.6-14.6 % High RDW CV 20.1 LAB L100.1820 35.1-43.9 fl High RDW SD 52.6 LAB L100.1900 150-450 K/mm3 Normal PLT 403 LAB L100.2000 6.2-12.0 fl Normal MPV 8.7 LAB L100.2100 47-70 % High NEUT% 91.6 LAB L100.2200 19-41 % Low LY% 6.7 LAB L100.2300 0-10 % Normal MONO% 1.0 LAB L100.2400 0-5 % Normal EO% 0.0 LAB L100.2500 0-1 % Normal BASO% 0.2 LAB L100.2550 0.0-0.9 % Normal IM GRAN % 0.500 Result Comment: IG% - Immature Granulocytes (promyelocytes, myelocytes and metamyelocytes) > 1% indicates that a LEFT SHIFT is Present. LAB L100.2620 2.0-7.7 X10 3/uL Absolute Neut Normal 5.8 LAB L100.2720 0.83-4.51 X10 3/ul Low Absolute Lymph 0.42 LAB L100.4500 SMEAR COMMENT Normal SCAN LAB L100.7300 ANISO Normal 1+ LAB L100.7500 POLYCHROMASIA Normal 1+ LAB L100.7600 HYPOCHROMASIA Normal 1+ LAB L100.7700 MICROCYTES Normal 1+ Performed By: #### L100.0100 #### [facility] [address] [place], [address] BASIC METABOLIC Collected: 12/11/2017 Status: F Source: [place] PROFILE ([facility]) 5:50 AM [facility] REPOSITORY Order Comment: Order Date: 12/11/17 TYPE CODE TESTS RESULT OUT OF RANGE REFERENCE UNITS LAB L501.0100 74-106 mg/dL High GLU 143 Result Comment: Fasting Glucose result greater than or equal to 126 mg/dL suggests DIABETES MELLITUS per A.D.A. criteria. Please note revised GLUCOSE reference range effective 2017. LAB L501.1000 7-18 mg/dL High BUN 21 LAB L501.1100 0.70-1.30 mg/dL Low CREAT,SERUM 0.61 Result Comment: The validity of the calculated GFR AND GFRAA in patients over 70 years has not been determined. Clinical correlation is essential. LAB L501.1110 >60 mL/min Normal EST GFR 143 Result Comment: Non- GFR Calc LAB L501.1115 >60 mL/min Normal EST GFR - AA 173 Result Comment: GFR Calc LAB L501.1255 ml/min Normal Estimated CRCL 122.27 LAB L501.1300 10-20 RATIO High BUN/CRE 34.3 LAB L501.2200 8.5-10 mg/dL .1 CA Normal 8.5 LAB L501.5300 136-14 mmol/L 5 NA Normal 139 LAB L501.5600 3.5-5. mmol/L 1 K Normal 4.2 LAB L501.5900 98-107 mmol/L CL Normal 103 LAB L501.6100 21.0-3 mmol/L 2.0 CO2 Normal 26.0 LAB L501.6200 5-15 GAP Normal 10 Performed By: #### L500.2500, L501.5200 #### [facility] [address] [place], [address] MAGNESIUM Collected: 12/11/2017 Status: F Source: [place] 5:50 AM [facility] REPOSITORY Order Comment: Order Date: 12/11/17 TYPE CODE TESTS RESULT OUT OF RANGE REFERENCE UNITS LAB L501.5200 1.6-2.6 mg/dL Normal MG 2.1 Result Comment: Please note revised Magnesium reference range effective 2017. Performed By: #### L500.2500, L501.5200 #### [facility] [address] [place], [address] PHOSPHORUS Collected: 12/11/2017 Status: F Source: [place] 5:50 AM [facility] REPOSITORY TYPE CODE TESTS RESULT OUT OF RANGE REFERENCE UNITS LAB L501.2300 2.5-4.9 mg/dL High PHOS 5.2 Performed By: #### L501.2300 #### [facility] [address] [place], [address] RETIC PANEL Collected: 12/11/2017 Status: F Source: [place] 5:50 AM [facility] REPOSITORY TYPE CODE TESTS RESULT OUT OF RANGE REFERENCE UNITS LAB L101.0000 0.5-1.5 % Normal RETIC 1.43 LAB L101.0060 3.00-15.90 % High IM RET FRACTION 20.80 LAB L101.0090 30-35 pg Low RET-HE 21.3 LAB L101.0110 1.0-7.9 % Low IPF 0.9 Result Comment: Low PLT + Low IPF suggest a bone marrow production disorder Low PLT + high IPF suggests peripheral destruction (e.g.ITP, TTP, HIT, DIC, autoimmune) or bone marrow recovery Trending of serial IPF measurements is recommended when evaluating for bone marrow respones Value above normal range indicates an increase in RBC cellular response from bone marrow. Performed By: #### L100.9950 #### [facility] [address] [place], [address] IRON+IRON BINDING Collected: 12/11/2017 Status: F Source: [facility] 5:50 AM [facility] REPOSITORY TYPE CODE TESTS RESULT OUT OF RANGE REFERENCE UNITS LAB L503.6075 250-450 ug/dL TIBC Normal 439 LAB L503.6150 65-175 ug/dL Low IRON 27 LAB L503.6250 15.0-55.0 % Low IRON SATURATION 6.2 Performed By: #### L503.6030, L503.6550 #### [facility] [address] [place], [place], [address] FERRITIN Collected: 12/11/2017 Status: F Source: [place] 5:50 AM [facility] REPOSITORY TYPE CODE TESTS RESULT OUT OF RANGE REFERENCE UNITS LAB L503.6550 26-388 ng/mL Normal FERRITIN 46 Performed By: #### L503.6030, L503.6550 #### [facility] [address] [place], [place], [address] COMPREHENSIVE METABOLIC Collected: 12/11/2017 Status: F Source: [facility] 5:50 AM [facility] REPOSITORY Order Comment: 'TROP' Serial specimen #1, #2, #3, or #4: 1 TYPE CODE TESTS RESULT OUT OF RANGE REFERENCE UNITS LAB L501.0100 74-106 mg/dL High GLU 140 Result Comment: Fasting Glucose result greater than or equal to 126 mg/dL suggests DIABETES MELLITUS per A.D.A. criteria. Please note revised GLUCOSE reference range effective 2017. LAB L501.1000 7-18 mg/dL High BUN 20 LAB L501.1100 0.70-1.30 mg/dL Low CREAT,SERUM 0.67 Result Comment: The validity of the calculated GFR AND GFRAA in patients over 70 years has not been determined. Clinical correlation is essential. LAB L501.1110 >60 mL/min Normal EST GFR 130 Result Comment: Non- GFR Calc LAB L501.1115 >60 mL/min Normal EST GFR - AA 157 Result Comment: GFR Calc LAB L501.1255 ml/min Normal Estimated CRCL 111.32 LAB L501.1300 10-20 RATIO High BUN/CRE 30.0 LAB L501.1500 6.4-8. g/dL 2 T PROT Normal 7.4 LAB L501.1800 3.2-5. g/dL Low 0 ALB 3.0 LAB L501.1950 2.2-4. g/dL High 2 GLOB 4.4 LAB L501.2000 0.9-2. RATIO Low 4 A/G 0.7 LAB L501.2200 8.5-10 mg/dL .1 CA Normal 8.6 LAB L501.4100 15-37 U/L AST Normal 30 LAB L501.4305 45-117 U/L ALK P Normal 92 LAB L501.4405 16-61 U/L ALT Normal 32 Result Comment: Please note revised ALT reference range effective 2017. LAB L501.4600 0.20-1.00 mg/dL Normal T BILI 0.70 LAB L501.5300 136-145 mmol/L Normal NA 140 LAB L501.5600 3.5-5.1 mmol/L Normal K 4.2 LAB L501.5900 98-107 mmol/L Normal CL 104 LAB L501.6100 21.0-32.0 mmol/L Normal CO2 25.0 LAB L501.6200 5-15 Normal GAP 11 Performed By: #### L500.4050, L501.4010 #### [facility] [address] [facility] [place], [address] TROPONIN-I Collected: 12/11/2017 Status: F Source: [place] 5:50 AM [facility] REPOSITORY Order Comment: 'TROP' Serial specimen #1, #2, #3, or #4: 1 TYPE CODE TESTS RESULT OUT OF RANGE REFERENCE UNITS LAB L501.4010 <0.06 ng/mL High 0.08 TROPONIN-I Result Comment: TROPONIN-I EXPECTED VALUES <0.05 NEGATIVE 0.06 - 0.59 AT RISK OF MO > OR = 0.60 SUGGEST MO Performed By: #### L500.4050, L501.4010 #### [facility] [address] [facility] [place], [address] M R STAPH AUREUS Collected: 12/11/2017 Status: F Source: JI DNA BY PCR 3:35 AM [facility] REPOSITORY TYPE CODE TESTS RESULT OUT OF REFERENCE UNITS RANGE LAB L8200.1100 Negative High MRSA POSITIVE RESULT Result Comment: CRITICAL VALUE VERIFIED. CALLED TO MONTSERRAT BAUMAN 12/11/17 0534 Nette Stevens. RESULTS READ BACK BY SAME . Performed By: #### L8200.1000 #### [facility] [address] [place], [address] EMERGENCY DEPARTMENT Observed: 12/11/2017 Status: F Source: [place] SUMMARY 2:11 AM [facility] REPOSITORY [facility] Medical Records Department [address] [place] [address] Emergency Department Summary 12/11/17 0206 MR#: [id number] Acct: [id number] Name: ANTHONY JUNG Rep #: [id number] : 1960 57 From: Dana Stewart MD PCP: Care Physician, No Primary Status: ADM IN - ER Visit Summary Date of Service: 12/11/17 Chief Complaint: Shortness of breath History of Present Illness: The patient is a 57 M presenting by EMS for shortness of breath. EMS was called by his brother for respiratory distress. He is supposed to be on home O2 3 L. He states that his insurance has not kicked in he does not have an oxygen tank. He has a history of COPD, CHF, cardiomyopathy, A. fib. He is a smoker. He denies chest pain or fever. Physical Examination: Vitals are stable. Patient is afebrile. Alert moderate acute distress. HEENT exam is unremarkable. Neck is supple. Lungs are diminished bilaterally. Retractions and accessory muscle use. Heart is regular and tachycardic Abdomen is soft nontender nondistended. Extremities are unremarkable. Skin is warm and dry. No focal neurologic deficit. Remainder of exam is unremarkable. Emergency Department Course and Treatment: Patient on arrival was on CPAP per EMS. He was changed to BiPAP. He continues to have increased work of breathing and tachypnea. Chest x-ray shows no acute process. EKG sinus tachycardia rate of 112 with lateral T-wave inversion. CBC normal except hemoglobin 9.3. Chemistries unremarkable. Troponin is 0.08. BNP is 1576.8. Lactic acid is 1.6. Due to respiratory distress with no improvement with noninvasive ventilation, discussed intubation with the patient. He is agreeable with this plan. He was intubated using RSI. He was given succinylcholine and etomidate. 7.5 ET tube was placed through the cords using glidscope. Equal breath sounds bilaterally. Good color change. He was given Lasix IV and Solu-Medrol IV. Discussed with Dr. Ahmadi and Dr. Henry and patient will be admitted to ICU. Disposition: Admission Impression: Respiratory failure, CHF exacerbation, COPD exacerbation This note was generated with [employer] dictation software. It may contain incorrect words, spelling, and punctuation that were not noted in review of the chart prior to signing ED Disposition - Plan for ED Patient: Chief Complaint: Shortness of Breath What to do if you have Problems For any increased pain, shortness of breath, bleeding, nausea or vomiting, chest pain, or any unexpected problems, contact your Primary Care Provider. Call [facility] ([phone]) or report to the closest Emergency Room. Call 911 if necessary. 12/11/17 0211 <Electronically signed by Dana Stewart MD> Date Dana Stewart MD Cosigner Signature (If Indicated): Date CC: No Primary Care Physician HISTORY AND PHYSICAL Observed: 12/11/2017 Status: F Source: [place] EXAM 1:34 AM [facility] REPOSITORY [facility] Medical Records Department [address] [place] [address] History and Physical 12/11/17 0125 MR#: [id number] Acct: [id number] Name: WAYNE GAMBLEANTHONY Kohli Raffi Rep #: [id number] : 1960 57 From: Lionel Henry MD PCP: Care Physician, No Primary Status: REG ER Y Location: ED Problem List (1) SOB (shortness of breath) Status: Acute (2) CHF (congestive heart failure) Status: Chronic Qualifiers: Heart failure type: unspecified (3) CAD (coronary artery disease) Status: Chronic (4) COPD (chronic obstructive pulmonary disease) Status: Acute Qualifiers: COPD type: COPD with acute exacerbation Qualified Code(s): J44.1 - Chronic obstructive pulmonary disease with (acute) exacerbation (5) Tobacco abuse Status: Chronic (6) Medical non-compliance Status: Chronic History of Present Illness Date of Admission: 12/11/17 Chief Complaint: shortness of breath The patient is a 57 year old male patient with a history of COPD, CHF, CAD and tobacco abuse who presents to the ER by squad. It is reported that his family member found him to be in respiratory distress. The patient had been seen in the ER three days ago and was to have home oxygen setup but apparently this did not happen. The patient is sedated and intubated and all history I have is from medical records. He was working hard to breath and becoming fatigued and the ER physician decided to intubate the patient. He will be admitted to the ICU for acute respiratory failure. Prior to intubation is was reported by nursing staff that the patient had been answering questions appropriately, although he was getting more tired. Past Medical History Past Medical History (Chronic Problems): Chronic Problems CHF (congestive heart failure) (Chronic) CAD (coronary artery disease) (Chronic) Tobacco abuse (Chronic) Medical non-compliance (Chronic) Ischemic cardiomyopathy (Chronic) Allergies No Known Allergies Allergy (Verified 12/10/17 23:03) Home Medications: Ambulatory Orders Medication Instructions Recorded Acetaminophen [Tylenol Tablet] 650 mg PO Q6H PRN PRN #0 tablet 09/26/16 Surgical History: - - heart stents Smoking Status: Current every day smoker - *Family History Maternal History Items: Heart Disease Paternal History Items: Heart Disease Review of Systems Cardiovascular: Denies: Palpitations Respiratory: Reports: Shortness of breath at rest Gastrointestinal: Denies: Vomiting Unable to obtain accurate/complete ROS d/t: patient is sedated and intubated and unable to give a history VTE Information - Inpt Only VTE Present on Admission: No VTE Mechan Device Prophylaxis: None VTE Pharm Prophylaxis ordered?: Yes - Physical Exam General: - - sedated and intubated HEENT: Atraumatic, Normocephalic Neck: Supple Lungs: No rhonchi, No wheeze, No rales, Diminished Cardiovascular: Regular rate, Regular Rhythm, Normal S1, Normal S2, No murmurs Abdomen: Bowel Sounds Present, Soft Extremities: No edema Skin: No rashes Musculoskeletal: No Tenderness to Palpation of Joints or Extremities Vital Signs Temp Pulse Resp BP Pulse Ox 98.9 F 101 H 23 H 114/74 100 12/11/17 00:46 12/11/17 00:46 12/11/17 00:46 12/11/17 00:46 12/11/17 00:46 Oxygen Delivery Method Mechanical Ventilator Weight: 190 lb Body Mass Index (BMI) 26.4 Microbiology Past 72 Hours 12/11/17 00:54 Influenza Types A,B Direct FA (SHARON) - Final Mucosa - Nasopharyngeal Laboratory Tests Past 24 Hrs WBC 8.2 RBC 4.28 L Hgb 9.3 L Hct 31.9 L WBC RBC Hgb Hct MCV MCH MCHC RDW RDW Differential Plt Count MPV Immature Gran % (Auto) Assessment/Plan Acute Respiratory Failure Chronic Problems CHF (congestive heart failure) (Chronic) CAD (coronary artery disease) (Chronic) COPD (chronic obstructive pulmonary disease) (Chronic) Tobacco abuse (Chronic) Medical non-compliance (Chronic) Ischemic cardiomyopathy (Chronic) Plan - admit to ICU - Consult Dr Ahmadi for ICU management - CBC, BMP in am - solumedrol 40mg IV q 8hrs - cxr daily while on vent - IV normal saline at 100 cc/hr - LMWH for DVT prophylaxis Code Visit Inpatient E AND M: 23310 Init Hosp L3 12/11/17 0134 <Electronically signed by Lionel Henry MD> Date Lionel Henry MD Cosigner Signature: Date (if applicable) CC: No Primary Care Physician; Lionel Henry MD Signed Observed: 12/11/2017 Status: F Source: [place] INFLUENZA A+B (RAPID 12:54 AM [facility]) REPOSITORY FLU A/B Rapid Negative test results should be confirmed by culture. Order Rapid Viral Culture for Influenzae A+B (307694) if clinically indicated. Influenza Ag, Direct Presumptive NEGATIVE for Influenza A/B Antigen (See Note) Performed By: #### M101.0101 #### [facility] [address] [place], [address] CHEST 1 VIEW Observed: 12/10/2017 Status: F Source: [place]I (PORTABLE) 11:56 PM [facility] REPOSITORY [facility] Imaging Services [address] [place] [address] Chest 1 View (Portable) MR#: [id number] Acct: [id number] Name: ANTHONY JUNG Raffi Rep #: [id number] : 1960 M 57 From: Elizabeth Welsh MD PCP: Care Physician, No Primary Status: REG ER Study: Chest 1 View (Portable) Date of Exam: 12/11/17 Exam# [id number] Ordering Dr: Dana Stewart MD STUDY: X-RAY CHEST REASON FOR EXAM: Male, 57 years old. ET and OG tube placement TECHNIQUE: Single AP portable view of the chest. COMPARISON: 12/10 2017 chest x-ray FINDINGS: There is an endotracheal tube present through 0.5 cm above the zoraida and there is an NG tube present just past the gastroesophageal junction. The lungs are clear and expanded. There is no demonstrated pleural abnormality. There is mild cardiac enlargement. Normal mediastinum and alberto. Normal visualized pulmonary arteries. There is atherosclerotic tortuosity of the aortic arch and descending thoracic aorta. There are diffuse degenerative changes of the visualized thoracic spine. Normal visualized ribs, clavicles, and shoulders. There is no demonstrated abnormality of the visualized soft tissue structures of the upper abdomen. RAD/Chest 1 View (Portable) IMPRESSION: The NG tube is just past the gastroesophageal junction and could be advanced 5 to 10 cm. Endotracheal tube in satisfactory position. Cardiomegaly. Electronically Signed: Elizabeth Welsh MD at 1:01 EDT Tel , Service support , CC: No Primary Care Physician; Dana Stewart MD Entry Level Software Engineer: Signed BLOOD GASES BY CPS Collected: 12/10/2017 Status: F Source: [place] 11:28 PM [facility] REPOSITORY TYPE CODE TESTS RESULT OUT OF RANGE REFERENCE UNITS LAB L9000.9990 Normal BLD GAS TYPE ART LAB L9001.1000 Normal SITE R Radial LAB L9001.1010 Normal JORGE TEST POS LAB L9001.1050 O2 Normal Delivery Dev Bi / C PAP LAB L9001.1070 RR Normal 12 LAB L9001.1074 Normal FI02 2317 LAB L9001.1088 Normal IPAP 14 LAB L9001.1090 Normal EPAP 5 LAB L9001.1104 Normal Results To ED LAB L9001.1105 Normal Time Given 2317 LAB L9001.1110 7.35-7.45 High pH - I-STAT 7.50 LAB L9001.1210 35-45 mmHg Low pCO2 - ISTAT 32.7 LAB L9001.1310 75-100 mmHG High PO2 I-STAT 138 LAB L9001.2300 22-26 mmol/L Normal HCO3 ISTAT 25.6 LAB L9001.2400 -2 to +2 mmol/L BE Normal ISTAT 2 LAB L9001.2415 mmol/L Normal TOTAL CO2 27 ISTAT LAB L9001.2425 95-99 % Normal SO2 ISTAT 99 Performed By: #### L9000.0800 #### [facility] Point of Care [address] [facility] [place] [address] LACTIC ACID Collected: 12/10/2017 Status: F Source: [place] 11:10 PM [facility] REPOSITORY Order Comment: Yes/No query for Sepsis Lactate Rule Y TYPE CODE TESTS RESULT OUT OF RANGE REFERENCE UNITS LAB L503.6005 0.4-2.0 mmol/L Normal LACTIC ACID 1.6 Performed By: #### L503.6005 #### [facility] [address] [place], [address] CHEST 1 VIEW Observed: 12/10/2017 Status: F Source: JI (PORTABLE) 11:03 PM [facility] REPOSITORY [facility] Imaging Services [address] [address] Chest 1 View (Portable) MR#: [id number] Acct: [id number] Name: ANTHONY JUNG Rep #: [id number] : 1960 M 57 From: Noel Saha DO PCP: Care Physician, No Primary Status: REG ER Study: Chest 1 View (Portable) Date of Exam: 12/10/17 Exam# [id number] Ordering Dr: Dana Stewart MD STUDY: X-RAY CHEST REASON FOR EXAM: Male, 57 years old. Respiratory distress. TECHNIQUE: Single AP portable view of the chest. COMPARISON: 07 December 2017 FINDINGS: Chronic interstitial markings are present extending to the bases. No focal consolidation is evident. There is no demonstrated pleural abnormality. There is borderline cardiomegaly. Normal mediastinum and alberto. Normal visualized pulmonary arteries. There is atherosclerotic calcification of the aortic arch with tortuosity. Normal visualized thoracic spine. Normal visualized ribs, clavicles, and shoulders. There is no demonstrated abnormality of the visualized soft tissue structures of the upper abdomen. RAD/Chest 1 View (Portable) IMPRESSION: No evidence of focal consolidation or acute process. Electronically Signed: Noel Saha DO at 23:23 EDT , Service support , CC: No Primary Care Physician; Dana Stewart MD Entry Level Software Engineer: Signed PROTHROMBIN TIME W/INR Collected: 12/10/2017 Status: F Source: [place] 11:00 PM [facility] REPOSITORY TYPE CODE TESTS RESULT OUT OF RANGE REFERENCE UNITS LAB L300.4150 11.7-14.9 SECONDS High PROTIME 15.2 LAB L300.4200 Normal INR 1.2 Performed By: #### L300.3900 #### [facility] [address] [place], [place], [address] CBC W/DIFF, AUTOMATED Collected: 12/10/2017 Status: F Source: JI 11:00 PM [facility] REPOSITORY TYPE CODE TESTS RESULT OUT OF RANGE REFERENCE UNITS LAB L100.1000 4.4-11.0 K/mm3 Normal WBC 8.2 LAB L100.1200 4.6-6.2 M/mm3 Low RBC 4.28 LAB L100.1300 13.0-16.5 g/dl Low HGB 9.3 LAB L100.1400 40-54 % Low HCT 31.9 LAB L100.1500 80-94 fL Low MCV 74.5 LAB L100.1600 27.0-32.0 pg Low MCH 21.7 LAB L100.1700 32-36 g/gl Low MCHC 29.2 LAB L100.1810 11.6-14.6 % High RDW CV 20.0 LAB L100.1820 35.1-43.9 fl High RDW SD 54.2 LAB L100.1900 150-450 K/mm3 Normal PLT 371 LAB L100.2000 6.2-12.0 fl Normal MPV 8.4 LAB L100.2100 47-70 % High NEUT% 88.0 LAB L100.2200 19-41 % Low LY% 6.9 LAB L100.2300 0-10 % Normal MONO% 3.9 LAB L100.2400 0-5 % Normal EO% 0.2 LAB L100.2500 0-1 % Normal BASO% 0.5 LAB L100.2550 0.0-0.9 % Normal IM GRAN % 0.500 Result Comment: IG% - Immature Granulocytes (promyelocytes, myelocytes and metamyelocytes) > 1% indicates that a LEFT SHIFT is Present. LAB L100.2620 2.0-7.7 X10 3/uL Absolute Neut Normal 7.2 LAB L100.2720 0.83-4.51 X10 3/ul Low Absolute Lymph 0.56 LAB L100.4500 SMEAR COMMENT Normal SCAN LAB L100.7300 ANISO Normal 2+ LAB L100.7500 POLYCHROMASIA Normal 1+ LAB L100.7600 HYPOCHROMASIA Normal 1+ LAB L100.7700 MICROCYTES Normal 1+ Performed By: #### L100.0100 #### [facility] [address] [place], [address] BASIC METABOLIC Collected: 12/10/2017 Status: F Source: JI PROFILE (BMP) 11:00 PM [facility] REPOSITORY Order Comment: 'TROP' Serial specimen #1, #2, #3, or #4: 1 TYPE CODE TESTS RESULT OUT OF RANGE REFERENCE UNITS LAB L501.0100 74-106 mg/dL High GLU 117 Result Comment: Fasting Glucose result from 100 to 125 mg/dL suggests IMPAIRED HOMEOSTASIS per A.D.A. criteria. Please note revised GLUCOSE reference range effective 2017. LAB L501.1000 7-18 mg/dL Normal BUN 17 LAB L501.1100 0.70-1.30 mg/dL Low CREAT,SERUM 0.63 Result Comment: The validity of the calculated GFR AND GFRAA in patients over 70 years has not been determined. Clinical correlation is essential. LAB L501.1110 >60 mL/min Normal EST GFR 138 Result Comment: Non- GFR Calc LAB L501.1115 >60 mL/min Normal EST GFR - AA 167 Result Comment: GFR Calc LAB L501.1255 ml/min Normal Estimated CRCL 134.46 LAB L501.1300 10-20 RATIO High BUN/CRE 26.9 LAB L501.2200 8.5-10 mg/dL .1 CA Normal 8.6 LAB L501.5300 136-14 mmol/L 5 NA Normal 136 LAB L501.5600 3.5-5. mmol/L 1 K Normal 5.0 LAB L501.5900 98-107 mmol/L CL Normal 105 LAB L501.6100 21.0-3 mmol/L 2.0 CO2 Normal 22.0 LAB L501.6200 5-15 GAP Normal 9 Performed By: #### L500.2500, L501.4010 #### [facility] [address] [place], [address] TROPONIN-I Collected: 12/10/2017 Status: F Source: JI 11:00 PM [facility] REPOSITORY Order Comment: 'TROP' Serial specimen #1, #2, #3, or #4: 1 TYPE CODE TESTS RESULT OUT OF RANGE REFERENCE UNITS LAB L501.4010 <0.06 ng/mL High 0.08 TROPONIN-I Result Comment: TROPONIN-I EXPECTED VALUES <0.05 NEGATIVE 0.06 - 0.59 AT RISK OF MO > OR = 0.60 SUGGEST MO Performed By: #### L500.2500, L501.4010 #### [facility] [address] [place], [address] BNP,B-TYPE NATRIURETIC Collected: 12/10/2017 Status: F Source: JI PEPTIDE 11:00 PM [facility] REPOSITORY TYPE CODE TESTS RESULT OUT OF RANGE REFERENCE UNITS LAB L503.6620 0-100 pg/mL High B-TYPE 1576.8 HENRY PEP Performed By: #### L503.6620 #### [facility] [address] [place], [address] 12 LEAD ELECTROCARDIOGRAM Observed: 12/10/2017 Status: F Source: JI 2:59 PM [facility] REPOSITORY [facility] Cardiovascular Services [address] [place] [address] 12 Lead EKG 12/07/17 1520 MR#: [id number] Acct: [id number] Name: ANTHONY JUNG Rep #: [id number] : 1960 57 From: Martin Covarrubias MD Attending Dr: Status: DEP ER Ordering Dr: Lewis Molina MD Date: 12/07/17 Location: ED Sex: M C Admitted: Test Reason : Blood Pressure : / mmHG Vent. Rate : 105 BPM Atrial Rate : 105 BPM P-R Int : 198 ms QRS Dur : 100 ms QT Int : 362 ms P-R-T Axes : 086 -60 105 degrees QTc Int : 478 ms Sinus tachycardia Left anterior fascicular block Septal infarct , age undetermined T wave abnormality, consider lateral ischemia Abnormal ECG Confirmed by MARTIN COVARRUBIAS MD ([id number]), video effects editor HEIDE EDMONDS ([id number]) on 12/10/2017 2:58:57 PM Referred By: KG Confirmed By:MARTIN COVARRUBIAS MD 12/10/17 1459 Date Martin Covarrubias MD CC: No Primary Care Physician; Lewis Molina MD Signed DISCHARGE INSTRUCTION Observed: 12/07/2017 Status: F Source: JI 11:50 PM [facility] REPOSITORY [facility] Medical Records Department [address] [place] [address] Discharge Instruction 12/07/17 1901 MR#: [id number] Acct: [id number] Name: ANTHONY JUNG Rep #: [id number] : 1960 57 From: Lewis Molina MD PCP: Care Physician, No Primary Status: DEP ER ED Disposition - Plan for ED Patient: Disposition: Home or Assisted Living Chief Complaint: Shortness of Breath Instructions: ED CHF General, ED COPD Flare Prescriptions: Albuterol Sulfate [Proventil Hfa] 6.7 gm IH Q2H PRN PRN #1 hfa.aer.ad PRN Reason: Wheezing Potassium Chloride [K-Dur] 20 meq PO DAILY #30 tab Prednisone [Deltasone] 40 mg PO DAILY 10 Days tab Furosemide [Lasix] 40 mg PO BIDLX.TCU #60 tab Referrals: Ling Leal [NON-STAFF] - As soon as possible Additional Instructions: Has follow-up with primary care physician locally as soon as possible. Follow [facility] clinic across the street from the hospital in the clinic specifically set up with people financial need they may be of assistance. Also for free to call the hospital on Sunday and discuss with social insurance analyst any assistance he may be I will give you for getting your insurance transfer to getting her medications filled. Prednisone 40 mg a day for 10 days. Proventil inhaler 1-2 puffs every 2 hours as needed for wheezing. Lasix 40 mg twice a day. Return if feeling worse. What to do if you have Problems For any increased pain, shortness of breath, bleeding, nausea or vomiting, chest pain, or any unexpected problems, contact your Primary Care Provider. Call [facility] ([phone]) or report to the closest Emergency Room. Call 911 if necessary. 12/07/17 2350 <Electronically signed by Lewis Molina MD> Date Lewis Molina MD Cosigner Signature (If Indicated): Date CC: No Primary Care Physician EMERGENCY DEPARTMENT Observed: 12/07/2017 Status: F Source: [place] SUMMARY 11:49 PM [facility] REPOSITORY [facility] Medical Records Department [address] [place] [address] Emergency Department Summary 12/07/17 1544 MR#: [id number] Acct: [id number] Name: ANTHONY JUNG Rep #: [id number] : 1960 57 From: Lewis Molina MD PCP: Care Physician, No Primary Status: DEP ER - ER Visit Summary Date of Service: 12/07/17 Chief Complaint: Shortness of breath History of Present Illness: The patient is a 57 M significant past medical history of CAD with 10-15 cardiac stents prior MO prior CHF ejection fraction of 15%, COPD normally on 3 L and a history of A. fib. Patient is from [place] and was just released from the hospital air within the last 2 weeks for CHF and pneumonia. He is supposed to get an upcoming defibrillator and has been wearing a LifeVest. Patient states he feels more short of breath. This is been coming the last several days. He denies any fevers. He denies any nausea or vomiting. No melena. He denies any chest pain. He has never had a DVT or PE. No new calf pain or leg swelling. He has chronic pedal edema. And has been increasing his Lasix recently. Physical Examination: Middle-aged male who smells heavily of tobacco. Vital signs are stable afebrile. Currently his pulse ox limb in the room without oxygen is 100%. He is in no distress. HEENT exam unremarkable. Neck nontender no JVD. No lymphadenopathy. Lungs coarse breath sounds bilaterally. Few scattered wheezes. No rales. No rhonchi. Heart regular rhythm rate about 105. No murmur. Abdomen is soft and nontender. Normal bowel sounds. No peritoneal signs. Moving all 4 extremities. He has trace bilateral ankle edema. No calf tenderness. No cords. Neurologically is awake and alert without focal deficits. Skin exam unremarkable. Back exam unremarkable. Test Results: CBC shows a white count of 6 an H AND H of 9 and 33. His last hemoglobin here was 12 but that was sometime ago. He denies any melena. Electrolytes unremarkable normal BUN and creatinine and gap. Troponin is slightly elevated 0.09 but he is a history of a cardiomyopathy. His BNP is 807 consistent with mild failure. And his EKG sinus tachycardia rate of 105 with no acute signs of ischemia with T-wave inversion in lead V6. Currently have no old EKG available for comparison. Chest x-ray shows chronic changes with cardiomegaly and no significant acute processes of the mild vascular congestion read by myself the radiologist. Emergency Department Course and Treatment: Undergo a cardiac workup. To be treated with a DuoNeb aerosol Treatment Plan: Repeat exam patient is doing much better at 1850. His wheezing is resolved at the aerosols. I long discussion with the patient and his brother and [id number] at bedside. He absolutely does not want to be admitted. Currently on room air is 99-100%. Her a lot of social issues going on with his move from [place] to [place]. He is on [facility] Medicaid and that has been transferred over yet. Currently he needs a much of his meds refilled which are writing for many of them. There is also need to do a primary care physician in the area. He knows return to ER if worse and I gladly admit him. Disposition: Discharge Impression: Dyspnea secondary to exacerbation of COPD and CHF. Acute on chronic anemia. History of COPD History of the, MO, multiple cardiac stents, history of, history of cardiomyopathy. This note was generated with [employer] dictation software. It may contain incorrect words, spelling, and punctuation that were not noted in review of the chart prior to signing ED Disposition - Plan for ED Patient: Chief Complaint: Shortness of Breath Referrals: Care Physician,No Primary [Primary Care Provider] - What to do if you have Problems For any increased pain, shortness of breath, bleeding, nausea or vomiting, chest pain, or any unexpected problems, contact your Primary Care Provider. Call [facility] ([phone]) or report to the closest Emergency Room. Call 911 if necessary. 12/07/17 9419 <Electronically signed by Lewis Molina MD> Date Lewis Molina MD Cosigner Signature (If Indicated): Date CC: No Primary Care Physician CBC W/DIFF, AUTOMATED Collected: 12/07/2017 Status: F Source: JI 3:50 PM [facility] REPOSITORY TYPE CODE TESTS RESULT OUT OF RANGE REFERENCE UNITS LAB L100.1000 4.4-11.0 K/mm3 Normal WBC 6.0 LAB L100.1200 4.6-6.2 M/mm3 Low RBC 4.48 LAB L100.1300 13.0-16.5 g/dl Low HGB 9.7 LAB L100.1400 40-54 % Low HCT 33.4 LAB L100.1500 80-94 fL Low MCV 74.6 LAB L100.1600 27.0-32.0 pg Low MCH 21.7 LAB L100.1700 32-36 g/gl Low MCHC 29.0 LAB L100.1810 11.6-14.6 % High RDW CV 20.1 LAB L100.1820 35.1-43.9 fl High RDW SD 54.9 LAB L100.1900 150-450 K/mm3 Normal PLT 346 LAB L100.2000 6.2-12.0 fl Normal MPV 8.5 LAB L100.2100 47-70 % Normal NEUT% 64.1 LAB L100.2200 19-41 % Normal LY% 21.2 LAB L100.2300 0-10 % Normal MONO% 9.9 LAB L100.2400 0-5 % Normal EO% 3.3 LAB L100.2500 0-1 % Normal BASO% 0.7 LAB L100.2550 0.0-0.9 % Normal IM GRAN % 0.800 Result Comment: IG% - Immature Granulocytes (promyelocytes, myelocytes and metamyelocytes) > 1% indicates that a LEFT SHIFT is Present. LAB L100.2620 2.0-7.7 X10 3/uL Normal Absolute Neut 3.8 LAB L100.2720 0.83-4.51 X10 3/ul Normal Absolute Lymph 1.27 LAB L100.4500 Normal SMEAR COMMENT SCANNED Result Comment: 1+ ANISOCYTOSIS Performed By: #### L100.0100 #### [facility] [address] [place], [address] BASIC METABOLIC Collected: 12/07/2017 Status: F Source: [place] PROFILE (BMP) 3:50 PM [facility] REPOSITORY Order Comment: 'TROP' Serial specimen #1, #2, #3, or #4: 1 TYPE CODE TESTS RESULT OUT OF RANGE REFERENCE UNITS LAB L501.0100 74-106 mg/dL Normal GLU 77 Result Comment: Please note revised GLUCOSE reference range effective 2017. LAB L501.1000 7-18 mg/dL High BUN 20 LAB L501.1100 0.70-1.30 mg/dL Normal CREAT,SERUM 0.73 Result Comment: The validity of the calculated GFR AND GFRAA in patients over 70 years has not been determined. Clinical correlation is essential. LAB L501.1110 >60 mL/min Normal EST GFR 116 Result Comment: Non- GFR Calc LAB L501.1115 >60 mL/min Normal EST GFR - AA 141 Result Comment: GFR Calc LAB L501.1255 ml/min Normal Estimated CRCL 105.41 LAB L501.1300 10-20 RATIO High BUN/CRE 27.3 LAB L501.2200 8.5-10 mg/dL Low .1 CA 8.3 LAB L501.5300 136-14 mmol/L Low 5 NA 135 LAB L501.5600 3.5-5. mmol/L 1 K Normal 5.1 Result Comment: Slight Hemolysis, Result may be falsely increased. LAB L501.5900 98-107 mmol/L Normal CL 101 LAB L501.6100 21.0-32.0 mmol/L Normal CO2 28.0 LAB L501.6200 5-15 Normal 6 GAP Performed By: #### L500.2500, L501.4010 #### [facility] [address] [facility] [place], [address] TROPONIN-I Collected: 12/07/2017 Status: F Source: JI 3:50 PM [facility] REPOSITORY Order Comment: 'TROP' Serial specimen #1, #2, #3, or #4: 1 TYPE CODE TESTS RESULT OUT OF RANGE REFERENCE UNITS LAB L501.4010 <0.06 ng/mL High 0.09 TROPONIN-I Result Comment: TROPONIN-I EXPECTED VALUES <0.05 NEGATIVE 0.06 - 0.59 AT RISK OF MO > OR = 0.60 SUGGEST MO Performed By: #### L500.2500, L501.4010 #### [facility] [address] [place], [address] BNP,B-TYPE NATRIURETIC Collected: 12/07/2017 Status: F Source: [place] PEPTIDE 3:50 PM [facility] REPOSITORY TYPE CODE TESTS RESULT OUT OF RANGE REFERENCE UNITS LAB L503.6620 0-100 pg/mL High B-TYPE 807.7 HENRY PEP Performed By: #### L503.6620 #### [facility] [address] [place], [address] CHEST 1 VIEW Observed: 12/07/2017 Status: F Source: JI (PORTABLE) 3:38 PM [facility] REPOSITORY [facility] Imaging Services [address] [place] [address] Chest 1 View (Portable) MR#: [id number] Acct: [id number] Name: ANTHONY JUNG Raffi Rep #: [id number] : 1960 M 57 From: Maria G Díaz MD PCP: Care Physician, No Primary Status: REG ER Study: Chest 1 View (Portable) Date of Exam: 12/07/17 Exam# [id number] Ordering Dr: Lewis Molina MD STUDY: X-RAY CHEST REASON FOR EXAM: Male, 57 years old. Increasing shortness of breath and weakness. Recent discharge from hospital for pneumonia. Past medical history of atrial fibrillation, hypertension, myocardial infarction and COPD. TECHNIQUE: 1 view COMPARISON: Prior PA and lateral chest of October 17, 2016, portable chest of October 12, 2016 and September 25, 2016. FINDINGS: The lung crews are well-expanded without major consolidation, focal atelectasis or a substantial pleural effusion. Reduced pulmonary venous distention from the prior exam. Normal size heart. Normal mediastinum and alberto. Normal visualized pulmonary arteries. There is atherosclerotic calcification of the aortic arch with tortuosity. Normal visualized thoracic spine. Normal visualized ribs, clavicles, and shoulders. There is no demonstrated abnormality of the visualized soft tissue structures of the upper abdomen. RAD/Chest 1 View (Portable) IMPRESSION: Negative for consolidation, focal atelectasis or a substantial pleural effusion. Reduced cardiac size and venous congestion from the prior exam. Atherosclerotic changes of the thoracic aorta. Electronically Signed: Maria G Díaz MD at 16:12 EST , Service support , CC: No Primary Care Physician; Lewis Molina MD Entry Level Software Engineer: Signed ALLERGIES ALLERGIES DATE TYPE / CODE NAME / CODE REACTION SEVERITY SOURCE 09/09/2018 Drug No Known Unknown [facility] Allergy/4160 Allergies/F00 [facility] [address](SNOMED 8231194(RXNOR Repository CT) M) ENCOUNTERS ENCOUNTERS ADMIT/DISCHARGE ACCOUNT NUMBER ADMITTING ENCOUNTER LOCATION SOURCE CLASS 09/09/2018 [id number] Ambulatory BMSBuilding: [place] BMS.[facility] Repository 09/07/2018/09/08/20 [id number] Kathi, Inpatient [place] 18 Julián Encounter [facility] ding:Yulisa Repository : [id number]: 1 09/07/2018 [id number] Kathi Ambulatory BMSBuilding: [place] Julián BMS.[facility] Repository 09/07/2018 [id number] Kathi Ambulatory BMSBuilding: Ji Julián BMS.[facility] Repository 08/31/2018 [id number] Emergency [address] [place] [address] ERRoom: System [id number]: Repository [id number] 08/31/2018/08/31/20 [id number] Emergency [address] ding:ED Repository 08/27/2018/08/28/20 [id number] Anamika, Inpatient [place] [address] [facility] ding:PCURoom Repository : [id number]: 1 08/27/2018 [id number] Kotsonis, Ambulatory BMSBuilding: Ji Dell F BMS.[facility] Repository 08/27/2018 [id number] Kotsonis, Ambulatory BMSBuilding: Ji Dell F BMS.[facility] Repository 08/20/2018/08/21/20 [id number] Emergency [address] ding:ED Repository 08/18/2018/08/18/20 [id number] Emergency [address] ding:ED Repository 08/15/2018/08/16/20 [id number] Agyepong, Ambulatory [address] ding:QD0Meuq Repository : AK466Zes: 1 08/15/2018 [id number] Agyepong, Ambulatory BMSBuilding: Ji Marcus BMS.[facility] Repository 08/15/2018 [id number] Agyepong, Ambulatory BMSBuilding: Ji Marcus BMS.[facility] Repository 08/03/2018/08/05/20 [id number] Agyepong, Ambulatory [place] Ji [address] [place] [address] ding:PCURoom Repository : [id number]: 1 08/03/2018 [id number] Agyepong, Ambulatory BMSBuilding: Ji Marcus BMS.[facility] Repository 08/03/2018 [id number] Agyepong, Ambulatory BMSBuilding: [place] Marcus BMS.[facility] Repository 08/03/2018 [id number] Agyepong, Ambulatory BMSBuilding: Ji Marcus BMS.[facility] Repository 08/03/2018 [id number] Ambulatory BMSBuilding: Ji [facility] Repository 07/28/2018/07/28/20 [id number] Emergency [address] ding:ED Repository 07/20/2018/07/20/20 [id number] Emergency [address] ding:ED Repository 06/16/2018/06/16/20 [id number] Emergency [address] ding:ED Repository 05/09/2018 [id number] Ambulatory BMSBuilding: Ji BMS.[facility] Repository 03/23/2018/03/23/20 [id number] Emergency [address] ding:ED Repository 02/27/2018/02/28/20 [id number] Ambulatory BMSBuilding: [place] 18 BMS.[facility] Repository 01/23/2018/01/24/20 [id number] Ambulatory BMSBuilding: Ji 18 BMS.[facility] Repository 01/18/2018/01/19/20 [id number] Ambulatory BMSBuilding: Ji 18 BMS.[facility] Repository 01/17/2018/01/19/20 [id number] Emergency [address] ding:ED Repository 01/11/2018 [id number] Ambulatory BMSBuilding: [place] BMS.CF.[facility] Repository 01/11/2018 [id number] Ambulatory BMSBuilding: [place] [facility] Repository 01/10/2018/01/12/20 [id number] Ambulatory [address] ding:CLSPRoo Repository m: [id number] 01/10/2018 [id number] Ambulatory BMSBuilding: [place] BMS.[facility] Repository 01/04/2018 [id number] Ambulatory General acute hospital ding:LAB Repository 01/04/2018/01/05/20 [id number] Ambulatory BMSBuilding: [place] 18 BMS.[facility] Repository 12/25/2017 [id number] Ambulatory General acute hospital ding:[facility] Repository 12/25/2017 [id number] Ambulatory BMSBuilding: [place] [facility] Repository 12/20/2017/12/21/19 [id number] Ambulatory BMSBuilding: [place] 18 BMS.[facility] Repository 12/17/2017/12/19/19 [id number] White, Ambulatory [place] [address] ding:ICURoom Repository : [id number]: 1 12/17/2017 [id number] White, Ambulatory BMSBuilding: Ji Vaishali BMS.[facility] Repository 12/17/2017 [id number] White, Ambulatory BMSBuilding: [place] Vaishali BMS.[facility] Repository 12/13/2017/12/15/19 [id number] Ambulatory BMSBuilding: [place] 18 [facility] Repository 12/11/2017 [id number] Ambulatory BMSBuilding: Ji BMS.[facility] Repository 12/11/2017/12/15/19 [id number] Henry, Ambulatory [address] ding:ICURoom Repository : [id number]: 1 12/11/2017 [id number] Henry, Ambulatory BMSBuilding: [place] Lionel BMS.[facility] Repository 12/11/2017 [id number] Henry, Ambulatory BMSBuilding: [place] Lionel BMS.[facility] Repository 12/11/2017 [id number] Henry, Ambulatory BMSBuilding: [place] Lionel BMS.[facility] Repository 12/11/2017 [id number] Henry, Ambulatory BMSBuilding: [place] Lionel BMS..[facility] Repository 12/11/2017 [id number] Henry, Ambulatory BMSBuilding: [place] Lionel BMS.[facility] Repository 12/11/2017 [id number] Henry, Ambulatory BMSBuilding: Ji Lionel BMS.[facility] Repository 12/11/2017 [id number] Henry, Ambulatory BMSBuilding: [place] Lionel BMS..[facility] Repository 12/11/2017 [id number] Henry, Ambulatory BMSBuilding: [place] [facility] 12/11/2017 [id number] Henry, Ambulatory BMSBuilding: Ji Lionel BMS.[facility] Repository 12/11/2017 [id number] Henry, Ambulatory BMSBuilding: Ji Flowers BMS.[facility] Repository 12/07/2017/12/08/19 [id number] Emergency [place] 18 [facility] ding:ED Repository PAYERS PAYERS ENCOUNTER GUARANTOR PAYER SUBSCRIBER SOURCE 09/09/2018 ANTHONY Nugent Primary Insurance:BERNADINE [id number] E MEDICARE SENIOR VANDYNEDOB[facility]: [id number] [id number] Repository [address]Wkh: NO Date:8047-27-27QC BOX PHONE () [address]LUKBMDZ, [place] [address]NR: 09/09/2018 Secondary ATNHONY Workman Insurance:MEDICAIDPolicy VANDYNEDOB: Community Number: [id number] [id number] Repository Date:2018-09-05 09/09/2018 Tertiary Insurance:SELF NOT GIVENUNK [place] PAY INSURANCEPolicy Community Number: Effective Hospital Date:2018-09-05 Repository 09/07/2018 ANTHONY Nugent Primary Insurance:BERNADINE Workman [id number] E MEDICARE SENIOR VANDYNEDOB: [facility] Number: [id number], [place] [id number] Repository [address]Teo: NO Date:5738-69-76UE BOX PHONE () 322056KWNAHPI, [place] [address]RK: 09/07/2018 Secondary ANTHONY Workman Insurance:MEDICAIDPolicy VANDYNEDOB: Community Number: [id number] Hospital [id number] Repository Date:2018-09-07 09/07/2018 Tertiary Insurance:SELF NOT GIVENUNK [place] PAY INSURANCEPolicy Community Number: Effective Hospital Date:2018-09-07 Repository 09/07/2018 ANTHONY Nugent Primary Insurance:BERNADINE [id number] E MEDICARE SENIOR VANDYNEDOB: [facility] ADVANTAPolicy Number: [id number] [place], [place] [id number] Repository [address]Lzp: NO Date:4249-28-07CZ BOX PHONE ) [id number], [place] [address]FC: 09/07/2018 Secondary ANTHONY Workman Insurance:MEDICAIDPolicy VANDYNEDOB: Community Number: [id number] [facility] [id number] Repository Date:2018-09-07 09/07/2018 Tertiary Insurance:SELF NOT GIVENUNK [place] PAY INSURANCEPolicy Community Number: Effective Hospital Date:2018-09-07 Repository 09/07/2018 ANTHONY Nugent Primary Insurance:ANTHEM ANTHONY [id number] E MEDICARE SENIOR VANDYNEDOB: [facility] Number: [id number] [place] [id number] Repository [address]Vai: NO Date:3019-25-18DN BOX PHONE () 397509TQPDAJY, [place] [address]NG: 09/07/2018 Secondary ANTHONY Workman Insurance:MEDICAIDPolicy VANDYNEDOB: Community Number: [id number] Hospital [id number] Repository Date:2018-09-07 09/07/2018 Tertiary Insurance:SELF NOT GIVENUNK [place] PAY INSURANCEPolicy Community Number: Effective Hospital Date:2018-09-07 Repository 08/31/2018 Anthony Wayne Count Includes [facility] DyneDOB: Insurance:Commercial DyneDOB: System E Insurance [id number] [facility] Medicine[facility], [place] Number: Effective Date: 00334Ciz: () 08/31/2018 Secondary [facility] Insurance:[place] Blue DyneDOB: [facility] [place] [facility] [id number] Repository Number: Effective Date: 08/31/2018 ANTHONY Nugent Primary Insurance:ANTHEM ANTHONY [id number] E MEDICARE SENIOR VANDYNEDOB: [facility] Number: [id number] [place] [id number] Repository 35054Fjf: NO Date:0483-01-71FS BOX PHONE () 823821CZFNEUY, [place] [address]UX: 08/31/2018 Secondary ANTHONY Babcockoster Insurance:MEDICAIDPolicy VANDYNEDOB: Community Number: [id number] Hospital [id number] Repository Date:2018-08-31 08/31/2018 Tertiary Insurance:SELF NOT GIVENUNK Ji PAY INSURANCEPolicy Community Number: Effective Hospital Date:2018-08-31 Repository 08/27/2018 ANTHONY Nugent Primary Insurance:BERNADINE Workman [id number] E MEDICARE SENIOR VANDYNEDOB: Community BRAUN ADVANTAPolicy [place]: [id number] [place] [id number] Repository 156[address]Tip: NO Date:7586-75-02XH BOX PHONE () 324099ZKFGELR, [place] [address]VK: 08/27/2018 Secondary Insurance:SELF NOT GIVENUNK Ji PAY INSURANCEPolicy Community Number: Effective Hospital Date:2018-08-27 Repository 08/27/2018 ANTHONY Nugent Primary Insurance:BERNADINE Workman [id number] E MEDICARE SENIOR VANDYNEDOB: [facility] Number: [id number] [place] [id number] Repository 04[address]Asd: NO Date:5674-20-32UR BOX PHONE () 296073RGKRRAR, [place] [address]HZ: 08/27/2018 Secondary Insurance:SELF NOT GIVENUNK [place] PAY INSURANCEPolicy Community Number: Effective Hospital Date:2018-08-27 Repository 08/27/2018 ANTHONY Nugent Primary Insurance:BERNADINE Workman [id number] E MEDICARE SENIOR VANDYNEDOB: [facility] BRAUN ADVANTAPolicy Number: [id number] City[place] [id number] Repository 71668Zpq: NO Date:0397-96-27BA BOX PHONE () 710415MQLZAIB, [place] [address]TQ: 08/27/2018 Secondary ANTHONY Babcockoster Insurance:MEDICAIDPolicy VANDYNEDOB: Community Number: [id number] Hospital [id number] Repository Date:2018-08-27 08/27/2018 Tertiary Insurance:SELF NOT GIVENUNK Ji PAY INSURANCEPolicy Community Number: Effective Hospital Date:2018-08-27 Repository 08/20/2018 ANTHONY Nugent Primary Insurance:BERNADINE Workman [id number] HIGH MEDICARE SENIOR VANDYNEDOB: [place] ADVANTAPolicy Number: [id number] Hospital 77893Nno: NO [id number] Repository PHONE () Date:5969-69-53WK [address] [place] [address] 21775WD: 08/20/2018 Secondary Insurance:SELF NOT GIVENUNK Ji PAY INSURANCEPolicy Community Number: Effective Hospital Date:2018-08-20 Repository 08/18/2018 ANTHONY Nugent Primary Insurance:BERNADINE Workman [id number] HIGH MEDICARE SENIOR VANDYNEDOB: [place] ADVANTAPolicy Number: [id number] Hospital 36624Nlu: NO [id number] Repository PHONE (HP) Date:0489-15-09UJ [address] [place] [address] 40175VR: 08/18/2018 Secondary Insurance:SELF NOT GIVENUNK Ji PAY INSURANCEPolicy Community Number: Effective Hospital Date:2018-08-18 Repository 08/15/2018 ANTHONY Nugent Primary Insurance:BERNADINE Babcockoster [id number] HIGH MEDICARE SENIOR VANDYNEDOB: [place] ADVANTAPolicy Number: [id number] Hospital 90685Pkl: NO [id number] Repository PHONE (HP) Date:5580-85-32DA [address] [place] [address] 67771TL: 08/15/2018 Secondary Insurance:SELF NOT GIVENUNK Ji PAY INSURANCEPolicy Community Number: Effective Hospital Date:2018-08-15 Repository 08/15/2018 ANTHONY Nugent Primary Insurance:BERNADINE Workman [id number] HIGH MEDICARE SENIOR VANDYNEDOB: [place] ADVANTAPolicy Number: [id number] Hospital 10786Fxl: NO [id number] Repository PHONE (HP) Date:1633-23-87HP [address] [place] [address] 72946RW: 08/15/2018 Secondary Insurance:SELF NOT GIVENUNK [place] PAY INSURANCEPolicy Community Number: Effective Hospital Date:2018-08-15 Repository 08/15/2018 ANTHONY Nugent Primary Insurance:BERNADINE Babcockoster [id number] HIGH MEDICARE SENIOR VANDYNEDOB: [place] ADVANTAPolicy Number: [id number] Hospital 13486Knl: (330) [id number] Repository [phone] () Date:4533-22-55HI [address] [place] [address] 22043ZG: 08/15/2018 Secondary Insurance:SELF NOT GIVENUNK Ji PAY INSURANCEPolicy Community Number: Effective Hospital Date:2018-08-15 Repository 08/03/2018 ANTHONY Nugent Primary Insurance:BERNADINE Workman [id number] E MEDICARE SENIOR VANDYNEDOB: [facility] BRAUN ADVANTAPolicy Number: [id number] [place] [id number] Repository 17714Kzq: (330) Date:0409-30-22MF [phone] () [address] [place] [address] 74491RU: 08/03/2018 Secondary Insurance:SELF NOT GIVENUNK [place] PAY INSURANCEPolicy Community Number: Effective Hospital Date:2018-08-03 Repository 08/03/2018 ANTHONY Nugent Primary Insurance:BERNADINE Babcockoster [id number] E MEDICARE SENIOR VANDYNEDOB: [facility] ADVANTAPolicy Number: [id number] City, [place] [id number] Repository 92189Avk: (330) Date:3415-00-27EZ [phone] () [address] [place] [address] 28449BH: 08/03/2018 Secondary Insurance:SELF NOT GIVENUNK [place] PAY INSURANCEPolicy Community Number: Effective Hospital Date:2018-08-03 Repository 08/03/2018 ANTHONY Nugent Primary Insurance:BERNADINE Babcockoster [id number] E MEDICARE SENIOR VANDYNEDOB: [facility] ADVANTAPolicy Number: [id number] [place] [id number] Repository 55102Kte: (330) Date:0606-84-60ZB [phone] () [address] [place] [address] 15283ZS: 08/03/2018 Secondary Insurance:SELF NOT GIVENUNK Ji PAY INSURANCEPolicy Community Number: Effective Hospital Date:2018-08-03 Repository 08/03/2018 ANTHONY Nugent Primary Insurance:BERNADINE Babcockoster [id number] E MEDICARE SENIOR VANDYNEDOB: [facility] ADVANTMountain [facility] Medical Centericy Number: [id number] City, [place] [id number] Repository 47571Lbo: (330) Date:2696-08-66FA [phone] () [address]POOYUGK[address] [place] [address] 31310ET: 08/03/2018 Secondary Insurance:SELF NOT GIVENUNK [place] PAY INSURANCEPolicy Community Number: Effective Hospital Date:2018-08-03 Repository 08/03/2018 ANTHONY Nugent Primary Insurance:BERNADINE Workman [id number] HIGH MEDICARE SENIOR VANDYNEDOB: [place] ADVANTAPolicy Number: [id number] Hospital 12231Iir: NO [id number] Repository PHONE (HP) Date:5807-10-15SN [address] [place] [address] 37918CS: 08/03/2018 Secondary Insurance:SELF NOT GIVENUNK [place] PAY INSURANCEPolicy Community Number: Effective Hospital Date:2018-08-03 Repository 07/28/2018 ANTHONY Nugent Primary Insurance:BERNADINE Babcockoster [id number] E MEDICARE SENIOR VANDYNEDOB: [facility] ADVANTAPolicy Number: [id number] [place], [place] [id number] Repository 72346Mrr: (330) Date:8741-61-20FX [phone] () [address]16021LFCOEUM, [place] [address]HR: 07/28/2018 Secondary Insurance:SELF NOT GIVENUNK [place] PAY INSURANCEPolicy Community Number: Effective Hospital Date:2018-07-28 Repository 07/20/2018 ANTHONY Nugent Primary Insurance:ANTHEM ANTHONY Workman [id number] E MEDICARE SENIOR VANDYNEDOB: [facility] ADVANTAPoly Number: [id number] [id number] Repository 45707Rsj: (330) Date:6969-28-80SD [phone] () 183877JLBQYPS, [place] [address]VI: 07/20/2018 Secondary Insurance:SELF NOT GIVENUNK Ji PAY INSURANCEPolicy Community Number: Effective Hospital Date:2018-07-20 Repository 06/16/2018 ANTHONY Nugent Primary ANTHONY Workman [id number] E Insurance:MEDICARE PART A VANDYNEDOB: [facility] Number: [id number] City, [place] [id number] Repository 45656Wng: (330) Date:2018-06-16 [phone] () 06/16/2018 Secondary ANTHONY Workman Insurance:MEDICAIDPolicy VANDYNEDOB: Community Number: [id number] Hospital [id number] Repository Date:2018-06-16 06/16/2018 Tertiary Insurance:SELF NOT GIVENUNK Ji PAY INSURANCEPolicy Community Number: Effective Hospital Date:2018-06-16 Repository 05/09/2018 ANTHONY Nugent VAN Primary ANTHONY Nugent VAN Ji [id number] Insurance:CARESOURCEPolic DYNEDOB: [facility] Number: [id number] Hospital [facility] [id number] [place] [address]Akr: / Date:2017-12-17 O [address] () 3764ATTN: [place] [address]QR: 05/09/2018 Secondary Insurance:SELF NOT GIVENUNK [place] PAY INSURANCEPolicy Community Number: Effective Hospital Date:2018-01-03 Repository 03/23/2018 ANTHONY Savage Insurance:AETNA ANTHONY Magdaleno [id number] MCRPolicy Number: DYNEDOB: [facility] [address] [id number], Date:3900-64-36LD BOX Repository [place] [address]Iae: / [id number] GORDO MURRY () [address]OZ: 03/23/2018 Secondary Insurance:SELF NOT GIVENUNK [place] PAY INSURANCEPolicy Community Number: Effective Hospital Date:2018-03-23 Repository 02/27/2018 ANTHONY Magdaleno [id number] Insurance:CARESOURCEPolic DYNEDOB: [facility] [place] [place] y Number: [id number], [id number] Repository [place] [address]Xcf: Date:2018-01-18P [address]ATTN: CLAIMS () [place] [address]UP: 02/27/2018 Secondary Insurance:SELF NOT GIVENUNK [place] PAY INSURANCEPolicy Community Number: Effective Hospital Date:2018-02-27 Repository 01/23/2018 ANTHONY Magdaleno [id number] Insurance:CARESOURCEPolic DYNEDOB: [facility] [place], [place] y Number: [id number], [id number] Repository [place] [address]Ivy: Date:2018-01-23P [address]ATTN: CLAIMS () [place] [address]JF: 01/23/2018 Secondary Insurance:SELF NOT GIVENUNK Ji PAY INSURANCEPolicy Community Number: Effective Hospital Date:2018-01-23 Repository 01/18/2018 ANTHONY Magdaleno [id number] Insurance:CARESOURCEPolic DYNEDOB: [facility] [place], [place] y Number: [id number] [id number] [place]ository [place] [address]Kaj: Date:2017-12-17 [address]ATTN: CLAIMS (HP) [place] [address]TS: 01/18/2018 Secondary Insurance:SELF NOT GIVENUNK [place] PAY INSURANCEPolicy Community Number: Effective Hospital Date:2018-01-18 Repository 01/17/2018 ANTHONY Magdaleno [id number] TR Insurance:CARESOURCEPolic DYNEDOB: [address], y Number: [id number] Regional Medical Center [address]Hpz: [id number] Repository Date:2018-01-17 [address] (PE) 9830ATTN: [place] [address]VY: 01/17/2018 Secondary Insurance:SELF NOT GIVENUNK Ji PAY INSURANCEPolicy Community Number: Effective Hospital Date:2018-01-17 Repository 01/11/2018 ANTHONY Magdaleno [id number] TR Insurance:CARESOURCEPolic DYNEDOB: [address], y Number: [id number] Regional Medical Center [address]Yrp: [id number] Repository Date:2018-01-03 [address]OX (DJ) 1875ATTN: [place] [address]ZC: 01/11/2018 Secondary Insurance:SELF NOT GIVENUNK Ji PAY INSURANCEPolicy Community Number: Effective Hospital Date:2018-01-11 Repository 01/11/2018 ANTHONY Magdaleno [id number] Insurance:CARESOURCEPolic DYNEDOB: [facility] [place], [place] y Number: [id number], [id number] [place]ository [place] [address]Xxt: Date:2018-01-03 [address]ATTN: CLAIMS (HP) [place] [address]PK: 01/11/2018 Secondary Insurance:SELF NOT GIVENUNK [place] PAY INSURANCEPolicy Community Number: Effective Hospital Date:2018-01-11 Repository 01/10/2018 ANTHONY Magdaleno [id number] TR Insurance:CARESOURCEPolic DYNEDOB: Community [address] [place] [address], y Number: [id number] Regional Medical Center [address]Sdb: [id number] Repository Date:2018-01-03 [address] () 4715ATTN: [place] [address]OS: 01/10/2018 Secondary Insurance:SELF NOT GIVENUNK [place] PAY INSURANCEPolicy Community Number: Effective Hospital Date:2018-01-03 Repository 01/10/2018 ANTHONY Magdaleno [id number] TR Insurance:CARESOURCEPolic DYNEDOB: Community [address] [place] [address], y Number: [id number] Regional Medical Center 15163Qsr: [id number] Repository Date:2018-01-03P [address] BOX (HP) 0300ATTN: [place] [address]KS: 01/10/2018 Secondary Insurance:SELF NOT GIVENUNK Ji PAY INSURANCEPolicy Community Number: Effective Hospital Date:2018-01-10 Repository 01/04/2018 ANTHONY Magdaleno [id number] TR Insurance:CARESOURCEPolic DYNEDOB: Community [address] [place] [address], y Number: [id number] Regional Medical Center [address]Lof: [id number] Repository Date:2018-01-04P O BOX (HP) 0313ATTN: [place] [address]JZ: 01/04/2018 Secondary Insurance:SELF NOT GIVENUNK [place] PAY INSURANCEPolicy Community Number: Effective Hospital Date:2018-01-04 Repository 01/04/2018 ANTHONY Magdaleno [id number] TR Insurance:CARESOURCEPolic DYNEDOB: Community [address] [place] [address], y Number: [id number] Regional Medical Center [address]Mxg: [id number] Repository Date:2018-01-04P [address]OX (DZ) 4331ATTN: [place] [address]HZ: 01/04/2018 Secondary Insurance:SELF NOT GIVENUNK Ji PAY INSURANCEPolicy Community Number: Effective Hospital Date:2018-01-04 Repository 12/25/2017 ANTHONY Magdaleno [id number] TR Insurance:CARESOURCEPolic DYNEDOB: Community [address] [place] [address], y Number: [id number] Regional Medical Center [address]Cai: [id number] Repository Date:2017-12-20P O BOX (HP) 9422ATTN: CLAIMS [facility] [place] [address]FG: 12/25/2017 Secondary Insurance:SELF NOT GIVENUNK Ji PAY INSURANCEPolicy Community Number: Effective Hospital Date:2017-12-20 Repository 12/25/2017 ANTHONY Magdaleno [id number] Insurance:CARESOURCEPolic DYNEDOB: [facility] [place], [place] y Number: [id number], [id number] [place]ository [place] [address]Cce: Date:2017-12-20P [address]ATTN: CLAIMS (HP) [place] [address]VH: 12/25/2017 Secondary Insurance:SELF NOT GIVENUNK Ji PAY INSURANCEPolicy Community Number: Effective Hospital Date:2017-12-25 Repository 12/20/2017 ANTHONY Magdaleno [id number] TR Insurance:CARESOURCEPolic DYNEDOB: [address], y Number: [id number] Regional Medical Center [address]Zqv: [id number] Repository Date:2017-12-17P O BOX (FN) 0665ATTN: [place] [address]QB: 12/20/2017 Secondary Insurance:SELF NOT GIVENUNK [place] PAY INSURANCEPolicy Community Number: Effective Hospital Date:2017-12-20 Repository 12/17/2017 ANTHONY Magdaleno [id number] TR Insurance:CARESOURCEPolic DYNEDOB: Community [address] [place] [address], y Number: [id number] Regional Medical Center [address]Ujq: [id number] Repository Date:2017-12-16P O BOX (HP) 6734ATTN: [place] [address]YV: 12/17/2017 Secondary Insurance:SELF NOT GIVENUNK Ji PAY INSURANCEPolicy Community Number: Effective Hospital Date:2017-12-16 Repository 12/17/2017 ANTHONY Magdaleno [id number] TR Insurance:CARESOURCEPolic DYNEDOB: [address], y Number: [id number] Regional Medical Center [address]Ypm: [id number] Repository Date:2017-12-17P O BOX (HP) 5847ATTN: [place] [address]DA: 12/17/2017 Secondary Insurance:SELF NOT GIVENUNK Ji PAY INSURANCEPolicy Community Number: Effective Hospital Date:2017-12-17 Repository 12/17/2017 ANTHONY Magdaleno [id number] TR Insurance:CARESOURCEPolic DYNEDOB: [address], y Number: [id number] Regional Medical Center [address]Clh: [id number] Repository Date:2017-12-17P O BOX (HP) 3341ATTN: [place] [address]CL: 12/17/2017 Secondary Insurance:SELF NOT GIVENUNK [place] PAY INSURANCEPolicy Community Number: Effective Hospital Date:2017-12-17 Repository 12/13/2017 ANTHONY Magdaleno [id number] Insurance:CARESOURCEPolic DYNEDOB: [facility] [place], [place] y Number: [id number], [id number] Repository [place] [address]Iyu: Date:2017-12-10 [address]ATTN: CLAIMS () [place] [address]ZD: 12/13/2017 Secondary Insurance:SELF NOT GIVENUNK [place] PAY INSURANCEPolicy Community Number: Effective Hospital Date:2017-12-13 Repository 12/11/2017 ANTHONY Magdaleno [id number] TR Insurance:CARESOURCEPolic DYNEDOB: Community [address] [place] [address], y Number: [id number] Regional Medical Center [address]Fpd: [id number] Repository Date:2017-12-17 [address]OX (IR) 3957ATTN: [place] [address]MV: 12/11/2017 Secondary Insurance:SELF NOT GIVENUNK [place] PAY INSURANCEPolicy Community Number: Effective Hospital Date:2017-12-11 Repository 12/11/2017 ANTHONY Workman [id number] E Insurance:CARESOURCEPolic VANDYNEDOB: Community JOPPA y Number: [id number] City[place] [id number] Repository [address]Qsg: NO Date:2017-12-10 O BOX PHONE ) 5800ATTN: [place] [address]ZQ: 12/11/2017 Secondary Insurance:SELF NOT GIVENUNK Ji PAY INSURANCEPolicy Community Number: Effective Hospital Date:2017-12-10 Repository 12/11/2017 ANTHONY Magdaleno [id number] TR Insurance:CARESOURCEPolic DYNEDOB: Community [address] [place] [address], y Number: [id number] Regional Medical Center [address]Mks: [id number] Repository Date:2017-12-17 O BOX (GN) 4556ATTN: [place] [address]QU: 12/11/2017 Secondary Insurance:SELF NOT GIVENUNK [place] PAY INSURANCEPolicy Community Number: Effective Hospital Date:2017-12-11 Repository 12/11/2017 ANTHONY Magdaleno [id number] TR Insurance:CARESOURCEPolic DYNEDOB: Community [address] [place] [address], y Number: [id number] Regional Medical Center [address]Rio: [id number] Repository Date:2017-12-17 O [address] () 9345ATTN: [place] [address]AH: 12/11/2017 Secondary Insurance:SELF NOT GIVENUNK [place] PAY INSURANCEPolicy Community Number: Effective Hospital Date:2017-12-11 Repository 12/11/2017 ANTHONY Magdaleno [id number] TR Insurance:CARESOURCEPolic DYNEDOB: Community [address] [place] [address], y Number: [id number] Regional Medical Center [address]Aae: [id number] Repository Date:2017-12-17 O [address] () 2523ATTN: [place] [address]SM: 12/11/2017 Secondary Insurance:SELF NOT GIVENUNK Ji PAY INSURANCEPolicy Community Number: Effective Hospital Date:2017-12-11 Repository 12/11/2017 ANTHONY Magdaleno [id number] TR Insurance:CARESOURCEPolic DYNEDOB: Community [address] [place] [address], y Number: [id number] Regional Medical Center [address]307Mha: [id number] Repository Date:2017-12-17 [address] () 1472ATTN: [place] [address]UO: 12/11/2017 Secondary Insurance:SELF NOT GIVENUNK [place] PAY INSURANCEPolicy Community Number: Effective Hospital Date:2017-12-11 Repository 12/11/2017 ANTHONY Magdaleno [id number] TR Insurance:CARESOURCEPolic DYNEDOB: Community [address] [place] [address], y Number: [id number] Regional Medical Center 51939Noj: [id number] Repository Date:2017-12-17 [address] (HP) 8089ATTN: [place] [address]NL: 12/11/2017 Secondary Insurance:SELF NOT GIVENUNK Ji PAY INSURANCEPolicy Community Number: Effective Hospital Date:2017-12-11 Repository 12/11/2017 ANTHONY Magdaleno [id number] TR Insurance:CARESOURCEPolic DYNEDOB: Community [address] [place] [address], y Number: [id number] Regional Medical Center [address]Xko: [id number] Repository Date:2017-12-17P O BOX (HP) 0733ATTN: [place] [address]UK: 12/11/2017 Secondary Insurance:SELF NOT GIVENUNK Ji PAY INSURANCEPolicy Community Number: Effective Hospital Date:2017-12-11 Repository 12/11/2017 ANTHONY Magdaleno [id number] TR Insurance:CARESOURCEPolic DYNEDOB: Community [address] [place] [address], y Number: [id number] Regional Medical Center 17[address]Itk: [id number] Repository Date:2017-12-17 [address] (HP) 2216ATTN: [place] [address]HZ: 12/11/2017 Secondary Insurance:SELF NOT GIVENUNK [place] PAY INSURANCEPolicy Community Number: Effective Hospital Date:2017-12-11 Repository 12/11/2017 ANTHONY Magdaleno [id number] TR Insurance:CARESOURCEPolic DYNEDOB: Community [address] [place] [address], y Number: [id number] Regional Medical Center [address]6836Teq: [id number] Repository Date:2017-12-17P [address]OX (HP) 7203ATTN: [place] [address]WC: 12/11/2017 Secondary Insurance:SELF NOT GIVENUNK [place] PAY INSURANCEPolicy Community Number: Effective Hospital Date:2017-12-11 Repository 12/11/2017 ANTHONY Magdaleno [id number] TR Insurance:CARESOURCEPolic DYNEDOB: Community [address] [place] [address], y Number: [id number] Regional Medical Center [address]Qwq: [id number] Repository Date:2017-12-17P [address]OX (HP) 5376ATTN: [place] [address]BX: 12/11/2017 Secondary Insurance:SELF NOT GIVENUNK Ji PAY INSURANCEPolicy Community Number: Effective Hospital Date:2017-12-11 Repository 12/11/2017 ANTHONY Magdaleno [id number] TR Insurance:CARESOURCEPolic DYNEDOB: Community [address] [place] [address], y Number: [id number] Regional Medical Center [address]Bam: [id number] Repository Date:2017-12-17P [address] () 0930ATTN: [place] [address]CM: 12/11/2017 Secondary Insurance:SELF NOT GIVENUNK Ji PAY INSURANCEPolicy Community Number: Effective Hospital Date:2017-12-11 Repository 12/07/2017 ANTHONY Magdaleno [id number] TR Insurance:CARESOURCEPolic DYNEDOB: Community [address] [place] [address], y Number: [id number] Regional Medical Center [address]Qvx: [id number] Repository Date:2017-12-07P [address] () 8736ATTN: [place] [address]EC: 12/07/2017 Secondary Insurance:SELF NOT GIVENUNK [place] PAY INSURANCEPolicy Community Number: Effective Hospital Date:2017-12-07 Repository
== END 2018-08-28 17:39 | disposition home or self-care (01) | DRG 291 ==
LOC: ED 05:44 → PCU 07:46
PROVIDERS: Admitting Provider Family Medicine; Emergency Provider Emergency Medicine; Family Provider Nurse Practitioner Family; PCP Nurse Practitioner Family; Visit Provider Family Medicine
DX: I50.23 Acute on chronic systolic (congestive) heart failure (principal); J96.01 Acute respiratory failure with hypoxia; E78.5 Hyperlipidemia, unspecified; I25.10 Atherosclerotic heart disease of native coronary artery without angina pectoris; D50.9 Iron deficiency anemia, unspecified; Z95.810 Presence of automatic (implantable) cardiac defibrillator; J44.9 Chronic obstructive pulmonary disease, unspecified; F17.200 Nicotine dependence, unspecified, uncomplicated; Z95.5 Presence of coronary angioplasty implant and graft
CPT/HCPCS: 36415; 36600; 71045; 80048; 80307; 82803; 83735; 83880; 84484; 85025; 87804; 93005; 94002; 94640; 97162; 97166; 99285; 99406; A4216; J1940; J2405

== ENCOUNTER 2018-08-31 03:43 | Emergency (ER) | payer MEDICARE, MEDICAID, SELFPAY ==
[2018-08-27 08:27] VITALS: BMI 22.1
[2018-08-31 03:44] VITALS: BP 127/87; PULSE 98; RESP 24; TEMP 36.4; O2SAT 100; BMI 21.6
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
[2018-08-31] MEDS: Morphine 4 MG/ML Syringe IV (04:09)
[2018-08-31] MEDS: 0.9% Normal Saline 1,000 ML 999 ML IV (04:09)
[2018-08-31 04:16] VITALS: BP 124/89; PULSE 96; RESP 24; O2SAT 98
[2018-08-31 04:16] LABS: Absolute Lymphocyte Count 1.25 X10^3/ul (0.83-4.51); Absolute Neutrophil Count 3.9 X10^3/uL (2.0-7.7); Basophil# 0.02 X10^3/uL; Basophil% 0.3 % (0-1); Eosinophil# 0.24 X10^3/uL; Hemoglobin 12.3 g/dl (13.0-16.5); Lymphocyte # 1.25 X10^3/ul (4.0); Lymphocyte % 20.9 % (19-41); Mean Corp Hgb Conc 31.5 g/gl (32-36); Mean Corpuscular Hgb 28.9 pg (27.0-32.0); Mean Corpuscular Volume 91.8 fL (80-94); Mean Platelet Vol. 8.8 fl (6.2-12.0); Monocyte# 0.61 X10^3/uL; Monocyte% 10.2 % (0-10); Neutrophil # 3.86 X10^3/uL (2.7-7.7); Neutrophil % 64.4 % (47-70); Platelet Count 191 K/mm3 (150-450); RBC Distribution Width SD 53.1 fl (35.1-43.9); Red Blood Count 4.25 M/mm3 (4.6-6.2)
[2018-08-31 04:19] LABS: POSITIVE COUNT NO; POSITIVE DIFFERENTIAL NO; POSITIVE MORPHOLOGY NO
[2018-08-31 04:20] LABS: International Normalized Ratio 1.2; Prothrombin Time (Protime)PT. 14.7 SECONDS (11.7-14.9)
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
[2018-08-31 04:29] LABS: ALB/GLOB Ratio 0.9 RATIO (0.9-2.4); AST(SGOT) 24 U/L (15-37); Alanine Aminotransfer ALT/SGPT 36 U/L (16-61); Albumin, Serum 3.4 g/dL (3.2-5.0); Alkaline Phosphatase 110 U/L (45-117); Anion Gap 8 (5-15); BUN 20 mg/dL (7-18); BUN/Creat Ratio 24.5 RATIO (10-20); Calcium,Total 8.6 mg/dL (8.5-10.1); Chloride 101 mmol/L (98-107); Creatinine, Serum 0.82 mg/dL (0.70-1.30); EST Glomerular Filtration Rate 103 mL/min (>60); Est Glom Filt Rate - Afr Amer 124 mL/min (>60); Estimated Creatinine Clearance 88.35 ml/min; Globulin 3.8 g/dL (2.2-4.2); Glucose 89 mg/dL (74-106); Potassium 4.6 mmol/L (3.5-5.1); Protein, Total 7.2 g/dL (6.4-8.2); Sodium Level 137 mmol/L (136-145)
[2018-08-31] MEDS: fentaNYL 100 MCG/2 ML Ampul 50 MCG IV (05:13)
[2018-08-31 05:15] VITALS: BP 146/99; PULSE 96; RESP 18; O2SAT 100
[2018-08-31 05:34] VITALS: BP 149/101; PULSE 90; RESP 16; O2SAT 96
--- OUTSIDE RECORDS SUMMARY | 2018-10-25 18:13 | XMS RPT_ITS ---
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 there must be a demonstrated rise and/or fall in the troponin values, in addition to ischemic symptoms, EKG changes, new regional wall motion abnormality, and/or angiographical evidence. PLEASE NOTE: REFERENCE RANGES EDITED 18 Performed By: #### L500.2500, L501.4010 #### [facility] [address] [place], [address] CBC W/DIFF, AUTOMATED Collected: 08/20/2018 Status: F Source: [place] 11:43 [facility] REPOSITORY TYPE CODE TESTS RESULT OUT [...] Lymph 1.19 Performed By: #### L100.0100 #### [facility] [address] [place], [address] CHEST PA AND LATERAL Observed: 08/20/2018 Status: F Source: [place] 11:33 PM [facility] [place] [facility] Imaging Services [address] [place] [address] Chest PA and Lateral MR#: [id number] Acct: [id number] Name: ANTHONY VASQUEZ Raffi Rep #: [id number] : 1960 M 57 From: Sarah Edmonds MD PCP: JEREMIE Amanda Status: REG ER Study: Chest PA and Lateral Date of Exam: 08/20/18 Exam# [id number] Ordering Dr: Bradford Moreau DO STUDY: X-RAY [...] , CC: JEREMIE Oquendo; Bradford Moreau DO Cosmetology Educator: Signed DISCHARGE INSTRUCTION Observed: 08/18/2018 Status: F Source: [place] 4:07 PM [facility] [place] [facility] Medical Records Department [address] [place] [address] Discharge Instruction 08/18/18 160 MR#: [id number] Acct: [id number] Name: ANTHONY VASQUEZ Rep #: [id number] : 1960 57 From: Lewis Molina MD [...] problems, contact your Primary Care Provider. Call [facility] ([phone]) or report to the closest Emergency Room. Call 911 if necessary. 08/18/181606 <Electronically signed by Lewis Molina MD> Date Lewis Molina MD Cosigner Signature (If Indicated): Date CC: JEREMIE Oquendo EMERGENCY DEPARTMENT Observed: 08/18/2018 Status: F Source: JI SUMMARY 4:07 PM [facility] [place] [facility] Medical Records Department [address] [place] [address] Emergency Department Summary 08/18/18 1321 MR#: [id number] Acct: [id number] Name: ANTHONY VASQUEZ Rep #: [id number] : 1960 57 From: Lewis Molina MD [...] an extensive history of COPD with prior NE, CHF and cardiac stents. He has a [...] of COPD This note was generated with [employer] dictation software. It may contain incorrect words, [...] problems, contact your Primary Care Provider. Call [facility] ([phone]) or report to the closest Emergency Room. Call 911 if necessary. 08/18/18 1607 <Electronically signed by Lewis Molina MD> Date Lewis Molina MD Cosigner Signature (If Indicated): Date CC: INORGANIC CHEMICAL TECHNICIAN-C Berna Oquendo CBC W/DIFF, AUTOMATED Collected: 08/18/2018 Status: F Source: JI 1:34 PM [facility] [place] TYPE CODE TESTS RESULT OUT OF [...] Lymph 1.15 Performed By: #### L100.0100 #### [facility] [address] [place], [place], [address] BASIC METABOLIC Collected: 08/18/2018 Status: F Source: [place] PROFILE ([facility]) 1:34 PM [facility] [place] TYPE CODE TESTS RESULT OUT OF [...] 7 Performed By: #### L500.2500, L501.4010 #### [facility] [address] [facility] [place], [place], [address] TROPONIN-I Collected: 08/18/2018 Status: F Source: [place] 1:34 PM [facility] [place] TYPE CODE TESTS RESULT OUT OF RANGE REFERENCE UNITS LAB L501.4010 <0.045 ng/mL Normal 0.033 TROPONIN-I Result Comment: TROPONIN-I EXPECTED VALUES <0.045 Negative 0.045 - 0.590 Consistent with Cardiac Damage > OR = 0.600 Critical Value Not every elevated troponin is indicative of NE. These values should be used with clinical judgement in examining the patient's clinical picture for diagnosis. To establish a diagnosis of NE versus myocardial injury, there must be a demonstrated rise and/or fall in the troponin values, in addition to ischemic symptoms, EKG changes, new regional wall motion abnormality, and/or angiographical evidence. PLEASE NOTE: REFERENCE RANGES EDITED 18 Performed By: #### L500.2500, L501.4010 #### [facility] [address] [place], [place], [address] BNP,B-TYPE NATRIURETIC Collected: 08/18/2018 Status: F Source: [place] PEPTIDE 1:34 PM [facility] [place] TYPE CODE TESTS RESULT OUT OF RANGE REFERENCE UNITS LAB L503.6620 0-100 pg/mL High B-TYPE 3141.2 HENRY PEP Performed By: #### L503.6620 #### [facility] [address] [place], [address] CHEST PA AND LATERAL Observed: 08/18/2018 Status: F Source: JI 1:18 PM [facility] [place] Imaging Services [address] [place] [address] Chest PA and Lateral MR#: [id number] Acct: [id number] Name: ANTHONY VASQUEZ Rep #: [id number] : 1960 M 57 From: Edgar Jackman MD PCP: JEREMIE Amanda Status: REG ER Study: Chest PA and Lateral Date of Exam: 08/18/18 Exam# [id number] Ordering Dr: Lewis Molina MD STUDY: X-RAY [...] , CC: JEREMIE Oquendo; Lewis Molina MD Cosmetology Educator: Signed DISCHARGE SUMMARY Observed: 08/16/2018 Status: F Source: JI 9:57 AM [facility] [place] [facility] Medical Records Department [address] [place] [address] Discharge Summary 08/16/18 0953 MR#: [id number] Acct: [id number] Name: ANTHONY VASQUEZ Rep #: [id number] : 1960 57 From: Justin Zamarripa DO PCP: JEREMIE Amanda Status: ADM IN Y Location: MS3 [id number] ADDENDUM by Justin Zamarripa DO on 08/16/18 at 0957 Code Visit OBSV E AND M: 78158 Observation care discharge - disregard the 239. 08/16/18 0957 <Electronically signed by Justin Zamarripa DO> Date Justin Zamarripa DO cc: INORGANIC CHEMICAL TECHNICIAN-C Berna Oquendo; Justin Zamarripa DO * Signed [...] and CX Atherosclerosis of coronary artery of ambler heart without angina pectoris (Chronic) LEFT HEART [...] * stress test 12/25/17 was negative * [facility] 12/14/17 was unremarkable * likely troponin leak due to demand in a patient with cardiomyopathy with EF 10-15% * no additional work up 3. Ischemic cardiomyopathy * EF 10-15% from [facility] on 12/14/17 * s/p AICD on 01/10/18 [...] Albuterol Sulfate [Ventolin Hfa] 18 gm IH [id number] PRN #1 hfa.aer.ad 08/05/18 Guaifenesin [Mucinex] 1,200 [...] 15 Code Visit Inpatient E AND M: 11153 Disch Hosp 08/16/18 0957 <Electronically signed by Justin Zamarripa DO> Date Justin Zamarripa DO Cosigner Signature (if applicable): Date CC: JEREMIE Oquendo; Justin Zamarripa DO Signed DISCHARGE INSTRUCTION Observed: 08/16/2018 Status: F Source: [place] 9:53 AM [facility] [place] [facility] Medical Records Department [address] [place] [address] Instructions for Home/Discharge Instructions 08/16/18 0950 MR#: [id number] Acct: [id number] Name: ANTHONY VASQUEZ Rep #: [id number] : 1960 57 From: Justin Zamarripa DO [...] Albuterol Sulfate [Ventolin Hfa] 18 gm IH [id number] PRN #1 hfa.aer.ad 08/05/18 Guaifenesin [Mucinex] 1,200 [...] signed by Justin Zamarripa DO> Date Justin Dallni CAMPOS CC: JEREMIE Oquendo BASIC METABOLIC Collected: 08/16/2018 Status: F Source: [place] PRO[place] (BMP) 5:30 AM [facility] [place] TYPE CODE TESTS RESULT OUT OF [...] GAP 8 Performed By: #### L500.2500 #### [facility] [address] [place], [address] TROPONIN-I Collected: 08/15/2018 Status: F Source: JI 9:00 AM [facility] [place] Order Comment: 'TROP' Serial specimen #1, #2 or #3: 2 TYPE CODE TESTS RESULT OUT OF RANGE REFERENCE UNITS LAB L501.4010 <0.045 ng/mL Normal 0.038 TROPONIN-I Result Comment: TROPONIN-I EXPECTED VALUES <0.045 Negative 0.045 - 0.590 Consistent with Cardiac Damage > OR = 0.600 Critical Value Not every elevated troponin is indicative of NE. These values should be used with clinical judgement in examining the patient's clinical picture for diagnosis. To establish a diagnosis of NE versus myocardial injury, there must be a demonstrated rise and/or fall in the troponin values, in addition to ischemic symptoms, EKG changes, new regional wall motion abnormality, and/or angiographical evidence. PLEASE NOTE: REFERENCE RANGES EDITED 18 Performed By: #### L501.4010 #### [facility] [address] [facility] [place], [place], [address] TROPONIN-I Collected: 08/15/2018 Status: F Source: [place] 6:00 AM [facility] [place] Order Comment: 'TROP' Serial specimen #1, #2 or #3: 1 TYPE CODE TESTS RESULT OUT OF RANGE REFERENCE UNITS LAB L501.4010 <0.045 ng/mL Normal 0.045 TROPONIN-I Result Comment: TROPONIN-I EXPECTED VALUES <0.045 Negative 0.045 - 0.590 Consistent with Cardiac Damage > OR = 0.600 Critical Value Not every elevated troponin is indicative of NE. These values should be used with clinical judgement in examining the patient's clinical picture for diagnosis. To establish a diagnosis of NE versus myocardial injury, there must be a demonstrated rise and/or fall in the troponin values, in addition to ischemic symptoms, EKG changes, new regional wall motion abnormality, and/or angiographical evidence. PLEASE NOTE: REFERENCE RANGES EDITED 18 Performed By: #### L501.4010 #### [facility] [address] [place], [place], [address] HISTORY AND PHYSICAL Observed: 08/15/2018 Status: F Source: [place] EXAM 5:24 AM [facility] [place] Medical Records Department [address] [place] [address] History and Physical 08/15/18 0427 MR#: [id number] Acct: [id number] Name: ANTHONY VASQUEZ Rep #: [id number] : 1960 57 From: Marcus Mi MD PCP: JEREMIE Amanda Status: ADM IN Y Location: [place] [address] Problem List (1) COPD exacerbation Status: Acute [...] (Chronic) I42.8 Atherosclerosis of coronary artery of ambler heart without angina pectoris (Acute) I25.10 LEFT [...] History of coronary artery stent placement Z95.5 JKO-Dvhth-RIT and Cx History of left heart catheterization [...] placement (Resolved) Atherosclerosis of coronary artery of ambler heart without angina pectoris (Acute) COPD exacerbation [...] ordered. Code Visit Inpatient E AND M: 62509 Init Hosp L3 08/15/18 0524 <Electronically signed by Marcus iM MD> Date Marcus Mi MD Cosigner Signature: Date (if applicable) CC: JEREMIE Oquendo; Marcus Mi MD Signed EMERGENCY DEPARTMENT Observed: 08/15/2018 Status: F Source: [place] SUMMARY 4:59 AM [facility] [place] [facility] Medical Records Department [address] [place] [address] Emergency Department Summary 08/15/18 0206 MR#: [id number] Acct: [id number] Name: ANTHONY VASQUEZ Rep #: [id number] : 1960 57 From: Lionel Kaur MD [...] COPD exacerbation This note was generated with [employer] software. It may contain incorrect words, spelling, [...] your Primary Care Provider. Call [facility] ([phone]) or report to the closest Emergency Room. Call 911 if necessary. 08/15/18 0459 <Electronically signed by Lionel Kaur MD> Date Lionel Kaur MD Cosigner Signature (If Indicated): Date CC: JEREMIE Oquendo BLOOD GASES BY CPS Collected: 08/15/2018 Status: F Source: JI 2:26 AM [facility] [place] TYPE CODE TESTS RESULT OUT OF [...] ISTAT 100 Performed By: #### L9000.0800 #### [facility] Point of Care [address] [place] [address] CHEST 1 VIEW Observed: 08/15/2018 Status: F Source: [place] (PORTABLE) 2:07 AM [facility] [place] [facility] Imaging Services [address] [place] [address] Chest 1 View (Portable) MR#: [id number] Acct: [id number] Name: ANTHONY VASQUEZ Rep #: [id number] : 1960 M 57 From: Trey Roman MD PCP: JEREMIE Amanda Status: REG ER Study: Chest 1 View (Portable) Date of Exam: 08/15/18 Exam# [id number] Ordering Dr: Lionel Kaur MD STUDY: X-RAY [...] , CC: JEREMIE Oquendo; Lionel Kaur MD Cosmetology Educator: Signed BASIC METABOLIC Collected: 08/15/2018 Status: F Source: JI PROFILE (BMP) 2:04 AM [facility] [place] TYPE CODE TESTS RESULT OUT OF [...] 7 Performed By: #### L500.2500, L501.4010 #### [facility] [address] [place], [address] TROPONIN-I Collected: 08/15/2018 Status: F Source: JI 2:04 AM [facility] [place] TYPE CODE TESTS RESULT OUT OF RANGE REFERENCE UNITS LAB L501.4010 <0.045 ng/mL High 0.052 TROPONIN-I Result Comment: TROPONIN-I EXPECTED VALUES <0.045 Negative 0.045 - 0.590 Consistent with Cardiac Damage > OR = 0.600 Critical Value Not every elevated troponin is indicative of NE. These values should be used with clinical judgement in examining the patient's clinical picture for diagnosis. To establish a diagnosis of NE versus myocardial injury, there must be a demonstrated rise and/or fall in the troponin values, in addition to ischemic symptoms, EKG changes, new regional wall motion abnormality, and/or angiographical evidence. PLEASE NOTE: REFERENCE RANGES EDITED 18 Performed By: #### L500.2500, L501.4010 #### [facility] [address] [place], [address] BNP,B-TYPE NATRIURETIC Collected: 08/15/2018 Status: F Source: [place] PEPTIDE 2:04 AM [facility] [place] TYPE CODE TESTS RESULT OUT OF RANGE REFERENCE UNITS LAB L503.6620 0-100 pg/mL High B-TYPE 1428.8 HENRY PEP Performed By: #### L503.6620 #### [facility] [address] [facility] [place], [address] CBC W/DIFF, AUTOMATED Collected: 08/15/2018 Status: F Source: [place] 2:04 AM [facility] [place] TYPE CODE TESTS RESULT OUT OF [...] Lymph 1.31 Performed By: #### L100.0100 #### [facility] [address] [place], [address] ALBUMIN, SERUM Collected: 08/15/2018 Status: F Source: [place] 2:04 AM [facility] [place] TYPE CODE TESTS RESULT OUT OF RANGE REFERENCE UNITS LAB L501.1800 3.2-5.0 g/dL Normal ALB 3.5 Performed By: #### L501.1800 #### [facility] [address] [place], [address] 12 LEAD ELECTROCARDIOGRAM Observed: 08/08/2018 Status: F Source: [place] 4:06 PM [facility] [place] [facility] Cardiovascular Services [address] [place] [address] 12 Lead EKG 08/03/18 2134 MR#: [id number] Acct: [id number] Name: ANTHONY VASQUEZ Rep #: [id number] : 1960 57 From: Martin Covarrubias MD Attending Dr: Julián Armenta DO Status: DIS KEITH Ordering Dr: Marcus Mi MD Date: 08/03/18 Location: [facility] Sex: M C Admitted: 08/03/18 Test Reason [...] ECG Confirmed by MARTIN COVARRUBIAS MD ([id number]), editor index HEIDE EDMONDS (54) on 08/08/2018 4:06:38 PM Referred By: ARTEMIO Confirmed By:MARTIN COVARRUBIAS MD 08/08/18 1606 Date Martin Covarrubias MD CC: INORGANIC CHEMICAL TECHNICIAN-C Berna Oquendo; Marcus Mi MD; Julián Armenta DO Signed DISCHARGE SUMMARY Observed: 08/07/2018 Status: F Source: [place] 9:58 AM [facility] [place] [facility] Medical Records Department [address] [place] [address] [place] [address] Discharge Summary 08/07/18 0947 MR#: [id number] Acct: [id number] Name: ANTHONY VASQUEZ Raffi Rep #: [id number] : 1960 57 From: Julián Armenta DO PCP: JEREMIE Amanda Status: DIS KEITH Y Location: [place] [address] Discharge Date and Diagnosis Date of Admission: [...] was seen in the emergency room at [facility] with a chief complaint of shortness of [...] Albuterol Sulfate [Ventolin Hfa] 18 gm IH [id number] PRN #1 hfa.aer.ad 08/05/18 Azithromycin [Zithromax] 250 mg PO DAILY #14 tablet 08/05/18 Prednisone 10 mg PO UD #30 tab 08/05/18 Following Prescrptions Were Given to Patient: Azithromycin [Zithromax] 250 mg PO DAILY #14 tablet Prednisone 10 mg PO UD #30 tab Albuterol Sulfate [Ventolin Hfa] 18 gm IH [id number] PRN #1 hfa.aer.ad PRN Reason: Sob AND [...] applicable Code Visit OBSV E AND M: 06170 Observation care discharge 08/07/18 0958 <Electronically signed by Julián Armenta DO> Date Julián Armetna DO Cosigner Signature (if applicable): Date CC: JEREMIE Armenta DO Signed 12 LEAD ELECTROCARDIOGRAM Observed: 08/05/2018 Status: F Source: JI 3:44 PM [facility] [place] [facility] Cardiovascular Services [address] [place] [address] 12 Lead EKG 08/03/18 1657 MR#: [id number] Acct: [id number] Name: ANTHONY VASQUEZ Rep #: [id number] : 1960 57 From: Martin Covarrubias MD Attending Dr: Julián Armenta DO Status: DIS KEITH Ordering Dr: Dana Stewart MD Date: 08/03/18 Location: [facility] Sex: M C Admitted: 08/03/18 Test Reason [...] ECG Confirmed by MARCI BARLOW, MARTIN ([id number]), editor index HEIDE EDMONDS (56) on 08/05/2018 3:43:42 PM Referred By: VASILE Confirmed By:MARTIN COVARRUBIAS MD 08/05/18 1543 Date Martin Covarrubias MD CC: JEREMIE Oquendo; Dana Stewart MD; Julián Armenta DO Signed DISCHARGE INSTRUCTION Observed: 08/05/2018 Status: F Source: [place] 9:24 AM [facility] [place] [facility] Medical Records Department [address] [place] [address] Instructions for Home/Discharge Instructions 08/05/18 09 MR#: [id number] Acct: [id number] Name: ANTHONY VASQUEZ Rep #: [id number] : 1960 57 From: Julián Armenta DO [...] Albuterol Sulfate [Ventolin Hfa] 18 gm IH [id number] PRN #1 hfa.aer.ad 08/05/18 Azithromycin [Zithromax] 250 mg PO DAILY #14 tablet 08/05/18 Prednisone 10 mg PO UD #30 tab 08/05/18 The following prescriptions were given: Azithromycin [Zithromax] 250 mg PO DAILY #14 tablet Prednisone 10 mg PO UD #30 tab Albuterol Sulfate [Ventolin Hfa] 18 gm IH [id number] PRN #1 [id number] PRN Reason: Sob AND /Or Wheezing Primary Care Physician: Berna Oquendo NP-C [Primary Care Provider] - Please follow up with your Primary Care Physician in: IN ONE WEEK Test Results: Test results from this visit will be discussed in further detail at your follow-up appointment, if applicable. 08/05/18 0924 <Electronically signed by Julián Armenta DO> Date Julián Armenta DO CC: INORGANIC CHEMICAL TECHNICIAN-C Berna Oquendo BASIC METABOLIC Collected: 08/05/2018 Status: F Source: [place] ([facility]) 5:40 AM [facility] [place] TYPE CODE TESTS RESULT OUT OF [...] Normal 8 Performed By: #### L500.2500 #### [facility] [address] [place], [place], [id number] CBC W/DIFF, AUTOMATED Collected: 08/05/2018 Status: F Source: [place] 5:40 AM [facility] [place] TYPE CODE TESTS RESULT OUT OF [...] LYMPHOPENIA NOTED Performed By: #### L100.0100 #### [facility] [address] [place], [address] TROPONIN-I Collected: 08/04/2018 Status: F Source: [place] 2:46 AM [facility] [place] Order Comment: 'TROP' Serial specimen #1, #2 or #3: 3 TYPE CODE TESTS RESULT OUT OF RANGE REFERENCE UNITS LAB L501.4010 <0.045 ng/mL Normal 0.022 TROPONIN-I Result Comment: TROPONIN-I EXPECTED VALUES <0.045 Negative 0.045 - 0.590 Consistent with Cardiac Damage > OR = 0.600 Critical Value Not every elevated troponin is indicative of NE. These values should be used with clinical judgement in examining the patient's clinical picture for diagnosis. To establish a diagnosis of NE versus myocardial injury, there must be a demonstrated rise and/or fall in the troponin values, in addition to ischemic symptoms, EKG changes, new regional wall motion abnormality, and/or angiographical evidence. PLEASE NOTE: REFERENCE RANGES EDITED 18 Performed By: #### L501.4010 #### [facility] [place], [address] CBC W/DIFF, AUTOMATED Collected: 08/04/2018 Status: F Source: [place] 2:46 AM [facility] [place] TYPE CODE TESTS RESULT OUT OF [...] Lymph 0.34 Performed By: #### L100.0100 #### [facility] [address] [facility] [place], [address] BASIC METABOLIC Collected: 08/04/2018 Status: F Source: [place] (BMP) 2:46 AM [facility] [place] TYPE CODE TESTS RESULT OUT OF [...] GAP 7 Performed By: #### L500.2500 #### [facility] [address] [facility] [place], [address] HISTORY AND PHYSICAL Observed: 08/03/2018 Status: F Source: [place]AM 9:50 PM [facility] [place] [facility] Medical Records Department [address] [place] [address] History and Physical 08/03/182024 MR#: [id number] Acct: [id number] Name: ANTHONY VASQUEZ Rep #: [id number] : 1960 57 From: Marcus Mi MD PCP: JEREMIE Amanda Status: ADM KEITH Y Location: [place] [address] Problem List (1) COPD exacerbation Status: Acute [...] Mi MD) Atherosclerosis of coronary artery of ambler heart without angina pectoris (Acute) I25.10 LEFT [...] History of coronary artery stent placement Z95.5 YHU-Tripu-WUG and Cx History of left heart catheterization [...] placement (Resolved) Atherosclerosis of coronary artery of ambler heart without angina pectoris (Acute) COPD exacerbation [...] ordered. Code Visit OBSV E AND M: 84197 Initial observation care L3 08/03/18 5500 <Electronically signed by Marcus Mi MD> Date Marcus Mi MD Cosigner Signature: Date (if applicable) CC: INORGANIC CHEMICAL TECHNICIAN-C Berna Oquendo; Marcus Mi MD Signed ALCOHOL, BLOOD Collected: 08/03/2018 Status: F Source: [place] (MEDICAL)-SERUM 9:30 PM [facility] [place] TYPE CODE TESTS RESULT OUT OF [...] fatal coma Performed By: #### L501.9100 #### [facility] [address] [facility] [place], [address] EMERGENCY DEPARTMENT Observed: 08/03/2018 Status: F Source: [place] SUMMARY 8:42 PM [facility] [place] [facility] Medical Records Department [address] [facility] [place] [address] Emergency Department Summary 08/03/18 1721 MR#: [id number] Acct: [id number] Name: ANTHONY VASQUEZ Rep #: [id number] : 1960 57 From: Dana Stewart MD [...] chest pain This note was generated with [employer] dictation software. It may contain incorrect words, [...] your Primary Care Provider. Call [facility] ([phone]) or report to the closest Emergency Room. Call 911 if necessary. 08/03/182041 <Electronically signed by Dana Stewart MD> Date Dana Stewart MD Cosigner Signature (If Indicated): Date CC: JEREMIE Oquendo CTA CHEST W/WO Observed: 08/03/2018 Status: F Source: [place] CONTRAST 5:56 PM [facility] [place] [facility] Imaging Services [address] [place] [address] CTA Chest W/WO Contrast MR#: [id number] Acct: [id number] Name: ANTHONY VASQUEZ Rep #: [id number] : 1960 M 57 From: Osmar Reardon MD PCP: JEREMIE Amanda Status: REG ER Study: CTA Chest W/WO Contrast Date of Exam: 08/03/18 Exam# [id number] Ordering Dr: Dana Stewart MD STUDY: CTA [...] , CC: JEREMIE Oquendo; Dana Stewart MD Cosmetology Educator: Signed CHEST 1 VIEW Observed: 08/03/2018 Status: F Source: [place] (PORTABLE) 5:20 PM [facility] REPOSITORY [facility] Imaging Services [address] [place] [address] Chest 1 View (Portable) MR#: [id number] Acct: [id number] Name: ANTHONY VASQUEZ Rep #: [id number] : 1960 M 57 From: Orlin Appiah MD PCP: JEREMIE Amanda Status: REG ER Study: Chest 1 View (Portable) Date of Exam: 08/03/18 Exam# [id number] Ordering Dr: Dana Stewart MD STUDY: X-RAY [...] , CC: JEREMIE Oquendo; Dana Stewart MD Cosmetology Educator: Signed CBC W/DIFF, AUTOMATED Collected: 08/03/2018 Status: F Source: [place] 5:00 PM [facility] [place] TYPE CODE TESTS RESULT OUT OF [...] Lymph 0.76 Performed By: #### L100.0100 #### [facility] [address] [place], [place], [address] D-DIMER QUANTITATIVE Collected: 08/03/2018 Status: F Source: [place] (DVT/PE) 5:00 PM [facility] [place] TYPE CODE TESTS RESULT OUT OF [...] SAME . Performed By: #### L300.8000 #### [facility] [address] [place], [place], [address] BASIC METABOLIC Collected: 08/03/2018 Status: F Source: [place] (BMP) 5:00 PM [facility] [place] TYPE CODE TESTS RESULT OUT OF [...] 10 Performed By: #### L500.2500, L501.4010 #### [facility] [address] [facility] [address] [place], [place], [address] TROPONIN-I Collected: 08/03/2018 Status: F Source: [place] 5:00 PM [facility] [place] TYPE CODE TESTS RESULT OUT OF RANGE REFERENCE UNITS LAB L501.4010 <0.045 ng/mL Normal 0.036 TROPONIN-I Result Comment: TROPONIN-I EXPECTED VALUES <0.045 Negative 0.045 - 0.590 Consistent with Cardiac Damage > OR = 0.600 Critical Value Not every elevated troponin is indicative of NE. These values should be used with clinical judgement in examining the patient's clinical picture for diagnosis. To establish a diagnosis of NE versus myocardial injury, there must be a demonstrated rise and/or fall in the troponin values, in addition to ischemic symptoms, EKG changes, new regional wall motion abnormality, and/or angiographical evidence. PLEASE NOTE: REFERENCE RANGES EDITED 18 Performed By: #### L500.2500, L501.4010 #### [facility] [address] [facility] [place], [address] EMERGENCY DEPARTMENT Observed: 07/28/2018 Status: F Source: [place] SUMMARY 11:54 PM [facility] [place] [facility] Medical Records Department [address] [facility] [place] [address] Emergency Department Summary 07/28/18 2109 MR#: [id number] Acct: [id number] Name: ANTHONY VASQUEZ Rep #: [id number] : 1960 57 From: Anthony Boswell MD [...] and drainage This note was generated with Field [employer] dictation software. It may contain incorrect words, [...] problems, contact your Primary Care Provider. Call [facility] ([phone]) or report to the closest Emergency Room. Call 911 if necessary. 07/28/18 2708 <Electronically signed by Anthony Boswell MD> Date Anthony Boswell MD Cosigner Signature (If Indicated): Date CC: JEREMIE Oquendo 12 LEAD ELECTROCARDIOGRAM Observed: 07/23/2018 Status: F Source: [place] 11:08 AM [facility] [place] [facility] Cardiovascular Services [address] [place] [address] 12 Lead EKG 07/20/18 1046 MR#: [id number] Acct: [id number] Name: ANTHONY VASQUEZ Rep #: [id number] : 1960 57 From: Lionel Eason MD [...] Abnormal ECG Confirmed by ERICA BARLOW, LIONEL ([id number]), editor index TEZ PETERSON ([id number]) on 07/23/2018 11:08:21 AM Referred By: ACE Confirmed By:LIONEL EASON MD 07/23/18 1108 Date Lionel Eason MD CC: INORGANIC CHEMICAL TECHNICIAN-Seferino Oquendo; Mehdi Bello MD Signed EMERGENCY DEPARTMENT Observed: 07/20/2018 Status: F Source: [place] SUMMARY 12:43 PM [facility] [place] [facility] Medical Records Department [address] [place] [address] Emergency Department Summary 07/20/18 1105 MR#: [id number] Acct: [id number] Name: ANTHONY VASQUEZ Rep #: [id number] : 1960 57 From: Mehdi Bello MD [...] sinus with a ventricular rate of 93. DC interval is prolonged and consistent with first-degree [...] 4. Hyperglycemia This note was generated with [employer] dictation software. It may contain incorrect words, [...] problems, contact your Primary Care Provider. Call [facility] ([phone]) or report to the closest Emergency Room. Call 911 if necessary. 07/20/18 1243 <Electronically signed by Mehdi Bello MD> Date Mehdi Bello MD Cosigner Signature (If Indicated): Date CC: INORGANIC CHEMICAL TECHNICIAN-C Berna Oquendo CHEST PA AND LATERAL Observed: 07/20/2018 Status: F Source: [place] 10:54 AM [facility] [place] [facility] Imaging Services [address] [place] [address] Chest PA and Lateral MR#: [id number] Acct: [id number] Name: ANTHONY VASQUEZ Raffi Rep #: [id number] : 1960 M 57 From: Clark Pacheco DO PCP: JEREMIE Amanda Status: REG ER Study: Chest PA and Lateral Date of Exam: 07/20/18 Exam# [id number] Ordering Dr: Mehdi Bello MD STUDY: X-RAY [...] , CC: JEREMIE Oquendo; Mehdi Bello MD Cosmetology Educator: Signed CBC W/DIFF, AUTOMATED Collected: 07/20/2018 Status: F Source: [place] 10:48 AM [facility] [place] TYPE CODE TESTS RESULT OUT OF [...] Lymph 0.89 Performed By: #### L100.0100 #### [facility] [address] [place], [address] BASIC METABOLIC Collected: 07/20/2018 Status: F Source: [place] ([facility]) 10:48 AM [facility] [place] TYPE CODE TESTS RESULT OUT OF [...] GAP 8 Performed By: #### L500.2500 #### [facility] [address] [place], [address] 12 LEAD ELECTROCARDIOGRAM Observed: 06/19/2018 Status: F Source: [place] 2:36 PM [facility] [place] [facility] Cardiovascular Services [address] [place] [address] 12 Lead EKG 06/16/18 1327 MR#: [id number] Acct: [id number] Name: ANTHONY VASQUEZ Rep #: [id number] : 1960 57 From: Lionel Eason MD [...] Abnormal ECG Confirmed by ERICA BARLOW, LIONEL ([id number]), editor index HEIDE EDMONDS ([id number]) on 06/19/2018 2:35:59 PM Referred By: ACE Confirmed By:LIONEL EASON MD 06/19/18 1436 Date Lionel Eason MD CC: JEREMIE Oquendo; Mehdi Bello MD Signed EMERGENCY DEPARTMENT Observed: 06/16/2018 Status: F Source: [place] SUMMARY 5:05 PM [facility] [place] [facility] Medical Records Department [address] [place] [address] Emergency Department Summary 06/16/18 1621 MR#: [id number] Acct: [id number] Name: ANTHONY VASQUEZ Rep #: [id number] : 1960 57 From: Mehdi Bello MD [...] associated symptoms that occurred while standing at scientology. He received aspirin and nitroglycerin by squad. [...] which may be secondary to lead placement. DC interval is normal. QRS duration is slightly [...] of CHF This note was generated with [employer] dictation software. It may contain incorrect words, [...] your Primary Care Provider. Call [facility] ([phone]) or report to the closest Emergency Room. Call 911 if necessary. 06/16/18 4968 <Electronically signed by Mehdi Bello MD> Date Mehdi Bello MD Cosigner Signature (If Indicated): Date CC: JEREMIE Oquendo; Bradford Tirado MD TROPONIN-I Collected: 06/16/2018 Status: F Source: [place] 4:25 PM [facility] [place] Order Comment: 'TROP' Serial specimen #1, #2 or #3: 2 TYPE CODE TESTS RESULT OUT OF RANGE REFERENCE UNITS LAB L501.4010 <0.045 ng/mL Normal 0.036 TROPONIN-I Result Comment: TROPONIN-I EXPECTED VALUES <0.045 Negative 0.045 - 0.590 Consistent with Cardiac Damage > OR = 0.600 Critical Value Not every elevated troponin is indicative of NE. These values should be used with clinical judgement in examining the patient's clinical picture for diagnosis. To establish a diagnosis of NE versus myocardial injury, there must be a demonstrated rise and/or fall in the troponin values, in addition to ischemic symptoms, EKG changes, new regional wall motion abnormality, and/or angiographical evidence. PLEASE NOTE: REFERENCE RANGES EDITED 18 Performed By: #### L501.4010 #### [facility] [place], [address] CBC W/DIFF, AUTOMATED Collected: 06/16/2018 Status: F Source: [place] 1:30 PM [facility] [place] TYPE CODE TESTS RESULT OUT OF [...] Lymph 1.53 Performed By: #### L100.0100 #### [facility] [address] [place], [address] BASIC METABOLIC Collected: 06/16/2018 Status: F Source: [place] PROFILE (BMP) 1:30 PM [facility] [place] TYPE CODE TESTS RESULT OUT OF [...] 12 Performed By: #### L500.2500, L501.4010 #### [facility] [address] [place], [address] TROPONIN-I Collected: 06/16/2018 Status: F Source: [place] 1:30 PM [facility] [place] TYPE CODE TESTS RESULT OUT OF RANGE REFERENCE UNITS LAB L501.4010 <0.045 ng/mL Normal 0.042 TROPONIN-I Result Comment: TROPONIN-I EXPECTED VALUES <0.045 Negative 0.045 - 0.590 Consistent with Cardiac Damage > OR = 0.600 Critical Value Not every elevated troponin is indicative of NE. These values should be used with clinical judgement in examining the patient's clinical picture for diagnosis. To establish a diagnosis of NE versus myocardial injury, there must be a demonstrated rise and/or fall in the troponin values, in addition to ischemic symptoms, EKG changes, new regional wall motion abnormality, and/or angiographical evidence. PLEASE NOTE: REFERENCE RANGES EDITED 18 Performed By: #### L500.2500, L501.4010 #### [facility] [address] [place], [address] CHEST 1 VIEW Observed: 06/16/2018 Status: F Source: [place] (PORTABLE) 1:24 PM [facility] [place] [facility] Imaging Services [address] [place] [address] Chest 1 View (Portable) MR#: [id number] Acct: [id number] Name: ANTHONY VASQUEZ Rep #: [id number] : 1960 M 57 From: Elizabeth Welsh MD PCP: JEREMIE Amanda Status: REG ER Study: Chest 1 View (Portable) Date of Exam: 06/16/18 Exam# [id number] Ordering Dr: Mehdi Bello MD STUDY: X-RAY [...] , CC: JEREMIE Oquendo; Mehdi Bello MD Cosmetology Educator: Signed 12 LEAD ELECTROCARDIOGRAM Observed: 03/26/2018 Status: F Source: [place] 10:05 AM [facility] [place] [facility] Cardiovascular Services [address] [place] [address] 12 Lead EKG 03/23/182111 MR#: [id number] Acct: [id number] Name: ANTHONY JUNG Rep #: [id number] : 1960 57 From: Martin Covarrubias MD [...] ECG Confirmed by MARTIN COVARRUBIAS MD ([id number]), editor index TEZ PETERSON (87) on 03/26/2018 10:04:35 AM Referred By: DR BELLO Confirmed By:MARTIN COVARRUBIAS MD 03/26/18 1004 Date Martin Covarrubias MD CC: INORGANIC CHEMICAL TECHNICIANKadeem Oquendo; Bradford Kidd MD Signed EMERGENCY DEPARTMENT Observed: 03/24/2018 Status: F Source: [place] SUMMARY 12:26 AM [facility] [place] [facility] Medical Records Department [address] [facility] [place] [place] [address] Emergency Department Summary 03/23/18 2326 MR#: [id number] Acct: [id number] Name: ANTHONY JUNG Rep #: [id number] : 1960 57 From: Bradford Kidd MD [...] unclear etiology This note was generated with [employer] dictation software. It may contain incorrect words, [...] problems, contact your Primary Care Provider. Call [facility] ([phone]) or report to the closest Emergency Room. Call 911 if necessary. 03/24/18 0026 <Electronically signed by Bradford Kidd MD> Date Bradford Kidd MD Cosigner Signature (If Indicated): Date CC: JEREMIE Oquendo DISCHARGE INSTRUCTION Observed: 03/24/2018 Status: F Source: JI 12:26 AM [facility] Medical Records Department [address] [place] [address] Discharge Instruction 03/23/18 2331 MR#: [id number] Acct: [id number] Name: ANTHONY JUNG Rep #: [id number] : 1960 57 From: Bradford Kidd MD PCP: JEREMIE Amanda Status: [facility] ER ED Disposition - Plan for ED Patient: Chief Complaint: Chest Pain Instructions: ED Chest Pain Atypical Unkn Cause Referrals: Berna Oquendo NP-C [Primary Care Provider] - What to do if you have Problems For any increased pain, shortness of breath, bleeding, nausea or vomiting, chest pain, or any unexpected problems, contact your Primary Care Provider. Call [facility] ([phone]) or report to the closest Emergency Room. Call 911 if necessary. 03/24/18 0026 <Electronically signed by Bradford Kidd MD> Date Bradford Kidd MD Cosigner Signature (If Indicated): Date CC: JEREMIE Oquendo CHEST 1 VIEW Observed: 03/23/2018 Status: F Source: [place] (PORTABLE) 9:15 PM [facility] [place] Imaging Services [address] [place] [address] Chest 1 View (Portable) MR#: [id number] Acct: [id number] Name: ANTHONY JUNG Rep #: [id number] : 1960 M 57 From: Vic Looney DO PCP: JEREMIE Amanda Status: REG ER Study: Chest 1 View (Portable) Date of Exam: 03/23/18 Exam# [id number] Ordering Dr: Bradford Kidd MD STUDY: X-RAY [...] Signed: Vic LooneyDO at 21:43 EDT Tel [phone], Service support , CC: JEREMIE Oquendo; Bradford Kidd MD Cosmetology Educator: Signed CBC W/DIFF, AUTOMATED Collected: 03/23/2018 Status: F Source: JI 9:12 PM [facility] [place] TYPE CODE TESTS RESULT OUT OF [...] Performed By: #### L100.0100, L500.2500, L501.4010 #### [facility] [address] [place], [place], [address] BASIC METABOLIC Collected: 03/23/2018 Status: F Source: [place] PROFILE (BMP) 9:12 PM [facility] [place] TYPE CODE TESTS RESULT OUT OF [...] Performed By: #### L100.0100, L500.2500, L501.4010 #### [facility] [address] [place], [address] TROPONIN-I Collected: 03/23/2018 Status: F Source: JI 9:12 PM [facility] [place] TYPE CODE TESTS RESULT OUT OF RANGE REFERENCE UNITS LAB L501.4010 <0.045 ng/mL Normal 0.029 TROPONIN-I Result Comment: TROPONIN-I EXPECTED VALUES <0.045 Negative 0.045 - 0.590 Consistent with Cardiac Damage > OR = 0.600 Critical Value Not every elevated troponin is indicative of NE. These values should be used with clinical judgement in examining the patient's clinical picture for diagnosis. To establish a diagnosis of NE versus myocardial injury, there must be a demonstrated rise and/or fall in the troponin values, in addition to ischemic symptoms, EKG changes, new regional wall motion abnormality, and/or angiographical evidence. PLEASE NOTE: REFERENCE RANGES EDITED 18 Performed By: #### L100.0100, L500.2500, L501.4010 #### [facility] [address] [place], [address] BNP,B-TYPE NATRIURETIC Collected: 03/23/2018 Status: F Source: [place] PE[place] 9:12 PM [facility] [place] TYPE CODE TESTS RESULT OUT OF RANGE REFERENCE UNITS LAB L503.6620 0-100 pg/mL High B-TYPE 412.4 HENRY PEP Performed By: #### L503.6620 #### [facility] [address] [place], [address] PACEMAKER CHECK Observed: 03/01/2018 Status: F Source: JI 12:22 PM [facility] [place] [facility] [address] [place] [address] Pacemaker Check Date of Service: 02/27/18 1345 MR#: [id number] Acct: [id number] Name: ANTHONY JNUG Raffi Rep #: [id number] : 1960 From: Анна Vee Age/Sex: 57/M Location: [facility] Status: Signed Comments Summary Comments: Single Chamber ICD Evaluation: 6 wk post ICD implant check completed. Interrogation shows no VT/VF episodes since implant. Left pectoral pocket/incision w/o s/s of infection or erosion. Pt offers no cardiac complaints. Presenting rhythm shows NSR @ 98 bpm. STOCK MIXER=0%. Battery longevity approx 12 yrs. Lead impedance, sensing and pace/sense threshold remain stable. Decreased RV amplitude with adequate safety margin to preserve battery longevity. Pt instructed that he no longer has any left arm restrictions. Counters cleared. Next remote f/u appt scheduled for in 3 mos. Device Device Date Interviewed: 02/27/18 Follow-up Location: in office Interview Reason: scheduled follow up Pcb Design Engineer: [employer] Name: Inogen EL ICD DF4-VR Model: D140 Serial #: [id number] Implant Date: 01/10/18 Year(s): 0 Implant Physician: Dr. Damien Duogn/[facility] Patient Characteristics Patient Substrate: Ischemic cardiomyopathy Ejection fraction %: 15 to 19 By: Echo Implant DFT: no DFT testing performed Underlying rhythm: Sinus rhythm Pacemaker Dependent: No Device Characteristics Device: Single Chamber Type: Implantable defibrillator Remote Follow-Up: Latitude Device Physical Exam Yes Incision well healed, No hematoma, Tense hematoma and No drainage Leads Lead #1 Pcb Design Engineer Lead 1: [employer] Model Lead 1: 0292 Serial# Lead 1: [id number] Date Implanted Lead 1: 01/10/18 Position Lead [...] PACEMAKER CHECK Observed: 01/26/2018 Status: F Source: [place] 11:34 AM [facility] [place] [facility] [facility] [place] [address] Pacemaker Check Date of Service: 01/18/18 1540 MR#: [id number] Acct: [id number] Name: ANTHONY JUNG Rep #: [id number] : 1960 From: Bradford Tirado MD Age/Sex: 57/M Location: [facility] Status: Signed Comments Summary Comments: Wound Check: [...] in office Interview Reason: scheduled follow up Pcb Design Engineer: [employer] Name: Inogen EL ICD DF4-VR Model: D140 Serial #: [id number] Implant Date: 01/10/18 Year(s): 0 Implant Physician: Dr. Damien Duong/[facility] Patient Characteristics Patient Substrate: Ischemic cardiomyopathy Ejection fraction %: 15 to 19 By: Echo Implant DFT: no DFT testing performed Underlying rhythm: Sinus rhythm Pacemaker Dependent: No Device Characteristics Device: Single Chamber Type: Implantable defibrillator Remote Follow-Up: Latitude Device Physical Exam Yes Steri-strips intact, No hematoma, No drainage and Pocket not tender Leads Lead #1 Pcb Design Engineer Lead 1: [employer] Model Lead 1: 0292 Serial# Lead 1: [id number] Date Implanted Lead 1: 01/10/18 Position Lead [...] 01/23/2018 Status: F Source: [place]I 5:[address] [place] [address] OFFICE VISIT Date of Service: 01/23/18 MR#: [id number] Acct: [id number] Patient: ANTHONY JUNG Rep #: [id number] : 1960 Provider: Bradford Tirado MD Age/Sex: 57/M Location: [facility] Status: Signed Intake Intake Visit Reasons: [...] week with an update on symptoms. 01/23/18 4334 <Electronically signed by Lionel Eason MD> Date Lionel Eason MD Cosigner Signature: Date (if applicable) CC: Angelo Garcia 12 LEAD ELECTROCARDIOGRAM Observed: 01/21/2018 Status: F Source: [place] 3:00 PM [facility] Cardiovascular Services [address] [place] [address] 12 Lead EKG 01/17/18 2331 MR#: [id number] Acct: [id number] Name: ANTHONY JUNG Rep #: [id number] : 1960 57 From: Lionel Eason MD [...] Abnormal ECG Confirmed by ERICA BARLOW, LIONEL ([id number]), editor index HEIDE EDMONDS ([id number]) on 01/21/2018 3:00:21 PM Referred By: Bradford iTrado Confirmed By:LIONEL EASON MD 01/21/18 1500 Date Lionel Eason MD CC: Berna Oquendo; MD Candace Bustillos Signed EMERGENCY DEPARTMENT Observed: 01/18/2018 Status: F Source: [place] SUMMARY 12:54 AM [facility] Medical Records Department [address] [place] [address] Emergency Department Summary 01/17/18 2336 MR#: [id number] Acct: [id number] Name: ANTHONY JUNG Rep #: [id number] : 1960 57 From: El Bustillos MD [...] he believes he may have had an NE about 1 year ago he seen by [...] fluids screening labs EKG discuss case with timber watchman Did have a nuclear cardiac stress test [...] cardiac defibrillator This note was generated with [employer] D[employer] dictation software. It may contain incorrect words, [...] your Primary Care Provider. Call [facility] ([phone]) or report to the closest Emergency Room. Call 911 if necessary. 01/18/18 0054 <Electronically signed by El Bustillos MD> Date El Bustillos MD Cosigner Signature (If Indicated): Date CC: Berna Oquendo DISCHARGE INSTRUCTION Observed: 01/18/2018 Status: F Source: [place]I 12:42 AM [facility] [place] [facility] Medical Records Department [address] [place] [address] Discharge Instruction 01/18/1840 MR#: [id number] Acct: [id number] Name: ANTHONY JUNG Rep #: [id number] : 1960 57 From: El Bustillos MD PCP: Berna Oquendo Status: REG ER ED Disposition - Plan for ED Patient: Chief Complaint: Syncope Instructions: ED Hypotension Orthostatic Referrals: [facility] Doctor,Out of [NON-STAFF] - Bradford Tirado MD [STAFF PHYSICIAN] - What to do if you have Problems For any increased pain, shortness of breath, bleeding, nausea or vomiting, chest pain, or any unexpected problems, contact your Primary Care Provider. Call [facility] ([phone]) or report to the closest Emergency Room. Call 911 if necessary. 01/18/1841 <Electronically signed by El Bustillos MD> Date El Flores Signature (If Indicated): Date CC: Berna Oquendo CHEST 1 VIEW Observed: 01/17/2018 Status: F Source: [facility]I (PORTABLE) 11:36 PM [facility] Imaging Services [address] [place] [address] Chest 1 View (Portable) MR#: [id number] Acct: [id number] Name: ANTHONY JUNG Rep #: [id number] : 1960 M 57 From: Heide Murphy MD PCP: OUT OF TOWN DOCTOR Status: PRE ER Study: Chest 1 View (Portable) Date of Exam: 01/17/18 Exam# [id number] Ordering Dr: El Bustillos MD XR Chest [...] MD Candace Bustillos; OUT OF TOWN DOCTOR Cosmetology Educator: Signed CBC W/DIFF, AUTOMATED Collected: 01/17/2018 Status: F Source: [place] 11:30 PM [facility] [place] [facility] TYPE CODE TESTS RESULT OUT OF [...] Normal 1+ Performed By: #### L100.0100 #### [facility] Laboratory [address] [place], [place], [address] BASIC METABOLIC Collected: 01/17/2018 Status: F Source: [place] PROFILE (BMP) 11:30 PM [facility] [place] [facility] Order Comment: 'TROP' Serial specimen #1, [...] 6 Performed By: #### L500.2500, L501.4010 #### [facility] [address] [place], [place], [address] TROPONIN-I Collected: 01/17/2018 Status: F Source: [place] 11:30 PM [facility] [place] [facility] Order Comment: 'TROP' Serial specimen #1, #2, #3, or #4: 1 TYPE CODE TESTS RESULT OUT OF RANGE REFERENCE UNITS LAB L501.4010 <0.06 ng/mL High 0.08 TROPONIN-I Result Comment: TROPONIN-I EXPECTED VALUES <0.05 NEGATIVE 0.06 - 0.59 AT RISK OF NE > OR = 0.60 SUGGEST NE Performed By: #### L500.2500, L501.4010 #### [facility] Laboratory [address] [place], [place], [address] BNP,B-TYPE NATRIURETIC Collected: 01/17/2018 Status: F Source: [place] PEPTIDE 11:30 PM [facility] [place] [facility] TYPE CODE TESTS RESULT OUT OF RANGE REFERENCE UNITS LAB L503.6620 0-100 pg/mL High B-TYPE 182.2 HENRY PEP Performed By: #### L503.6620 #### [facility] Laboratory [address] [place], [address] CHEST 1 VIEW Observed: 01/11/2018 Status: F Source: [place]I 7:10 AM [facility] [place] [facility] Imaging Services [address] [address] Chest 1 View MR#: [id number] Acct: [id number] Name: ANTHONY JUNG Rep #: [id number] : 1960 M 57 From: Darrick Coreas MD PCP: Care Physician, No Primary Status: REG [facility] Study: Chest 1 View Date of Exam: 01/11/18 Exam# [id number] Ordering Dr: Bradford Tirado MD STUDY: X-RAY [...] Darrick Coreas MD at 10:58 EDT Tel [phone], Service support , CC: No Primary Care Physician; Bradford Tirado MD Cosmetology Educator: Signed BASIC METABOLIC Collected: 01/11/2018 Status: F Source: [place] PROFILE (BMP) 6:30 AM [facility] [place] [facility] TYPE CODE TESTS RESULT OUT OF [...] Normal 8 Performed By: #### L500.2500 #### [facility] [address] [facility] [place], [address] CHEST PA AND LATERAL Observed: 01/11/2018 Status: F Source: [place] 12:01 AM [facility] [place] [facility] Imaging Services [address] [place] [address] Chest PA and Lateral MR#: [id number] Acct: [id number] Name: ANTHONY JUNG Rep #: [id number] : 1960 M 57 From: Darrick Coreas MD PCP: Care Physician, No Primary Status: REG [facility] Study: Chest PA and Lateral Date of Exam: 01/11/18 Exam# [id number] Ordering Dr: Damien Duong MD STUDY: X-RAY [...] atelectasis at the lung bases. Electronically Signed: Darrick Coreas MD at 8:15 EDT Tel [phone], Service support , CC: No Primary Care Physician; Damien Duong MD Cosmetology Educator: Signed OPERATIVE REPORT Observed: 01/10/2018 Status: F Source: [place] 1:28 PM [facility] [place] [facility] Medical Records Department [address] [place] [address] Operative Report 01/10/18 1326 MR#: [id number] Acct: [id number] Name: WAYNE GAMBLESeunANTHONY Raffi Rep #: [id number] : 1960 57 From: Damien Duong MD PCP: Care Physician, No Primary Status: REG [facility] Y Location: [facility] Operative Report Date of Procedure: 01/10/18 Preoperative diagnosis implantation of [ Primary prevention ICD for nonischemic Cardiomyopathy with EF 20%] Postoperative diagnosis same as above After informed consent and IV antibiotics the patient was brought to the [facility] catheterization laboratory. The left side of the [...] The implanted device is a VVI ICD [employer] Lead and device serial and model numbers are available in the chart documents provided by the device company traveling representative procedure summary. 01/10/18 1328 <Electronically signed by Damien Duong MD> Date Damien Duong MD CC: No Primary Care Physician; Bradford Tirado MD; Damien Duong MD Signed PACEMAKER CHECK Observed: 01/09/2018 Status: F Source: [place] 3:23 PM [facility] [place] [facility] [address] [place] [address] Pacemaker Check Date of Service: 01/04/18 1512 MR#: [id number] Acct: [id number] Name: ANTHONY JUNG Rep #: [id number] : 1960 From: Анна Vee Age/Sex: 57/M Location: [facility] Status: Signed Comments Summary Comments: ICD implant [...] 01/04/2018 Status: F Source: JI 2:46 PM [facility] [place] [facility] Order Comment: Comments: clean catch Comments: clean catch How was Urine Obtained? SYNTHETIC FILAMENT EXTRUDER TO SPECIFY TYPE CODE TESTS RESULT OUT [...] Performed By: #### L400.0001, L300.3900, L500.2500 #### [facility] [address] [place], [address] PROTHROMBIN TIME W/INR Collected: 01/04/2018 Status: F Source: [place] 2:46 PM [facility] [place] TYPE CODE TESTS RESULT OUT OF RANGE REFERENCE UNITS LAB L300.4150 11.7-14.9 SECONDS High PROTIME 15.2 LAB L300.4200 Normal INR 1.2 Performed By: #### L400.0001, L300.3900, L500.2500 #### [facility] [address] [facility] [place], [address] BASIC METABOLIC Collected: 01/04/2018 Status: F Source: [place] PROFILE (BMP) 2:46 PM [facility] [place] [facility] Order Comment: Comments: clean catch TYPE [...] Performed By: #### L400.0001, L300.3900, L500.2500 #### [facility] [address] [place], [address] CBC-COMPLETE BLOOD CNT Collected: 01/04/2018 Status: C Source: [place] NO DIFF 2:46 PM [facility] [place] [facility] TYPE CODE TESTS RESULT OUT OF [...] MPV 8.4 Performed By: #### L100.0500 #### [facility] [address] [place], [address] STRESS REPORT Observed: 12/25/2017 Status: F Source: [place] 4:29 PM [facility] [place] [facility] Cardiovascular Services [address] [place] [address] MR#: [id number] Acct: [id number] Name: WAYNE GAMBLESeunANTHONY Rep #: [id number] : 1960 57 From: Martin Covarrubias MD [...] Date Dictated: 12/25/17 162 Date Transcribed: 12/25/171621 Cosmetology Educator: [place] Signed CARDIOLOGY VISIT Observed: 12/20/2017 Status: F Source: [place] REPORT 1:36 PM [facility] [place] [facility] [address] [place] [address] OFFICE VISIT Date of Service: 12/20/17 MR#: [id number] Acct: [id number] Name: ANTHONY JUNG Rep #: [id number] : 1960 Provider: Bradford Tirado MD Age/Sex: 57/M Location: [facility] Status: Signed HPI HPI Chief Complaint: Routine follow-up for ischemic cardiomyopathy Details: ANTHONY JUNG, is a 57 nondiabetic with a history of hypertension, hypercholesterolemia, coronary artery disease and ischemic cardiomyopathy with an ejection fraction between 15-20%, COPD, and ongoing tobacco abuse. The patient was admitted to [facility] with respiratory distress requiring emergent intubation. He [...] 8 in Intake Visit Reasons: s/p [facility] ICU Allergies No Known Allergies Allergy (Verified [...] Medical History Atherosclerosis of coronary artery of ambler heart without angina pectoris (Acute) Iron deficiency [...] blurry vision, headache(s), dizziness or frequent falls Filiberto Hematologic/Lymphatic: Negative for easy bruising Endo Endo: [...] ischemia, I would recommend returning to the Mechanism Inspector for elective PCI of the right coronary [...] Orders: 2. Atherosclerosis of coronary artery of ambler heart without angina pectoris I25.10 CORONARY ANGIOGRAPHY [...] cardiomyopathy I25.5 Atherosclerosis of coronary artery of ambler heart without angina pectoris I25.10 Coding Level of Care Code Off vis,est,level 3 Diagnoses Ischemic cardiomyopathy I25.5 Atherosclerosis of coronary artery of ambler heart without angina pectoris I25.10 12/20/17 1336 <Electronically signed by Bradford Tirado MD> Date Bradford Tirado MD Cosigner Signature: Date (if applicable) CC: DISCHARGE SUMMARY Observed: 12/18/2017 Status: F Source: JI 3:29 PM [facility] [place] [facility] Medical Records Department [address] [place] [address] Discharge Summary 12/18/17 1519 MR#: [id number] Acct: [id number] Name: ANTHONY JUNG Rep #: [id number] : 1960 57 From: Mary Michel MD [...] evidence for acute cardiopulmonary pathology. Electronically Signed: Tery Roman MD at 0:21 EDT , Service [...] applicable Code Visit OBSV E AND M: 86227 Observation care discharge 12/18/17 0489 <Electronically signed by Mary Michel MD> Date Mary Michel MD Cosigner Signature (if applicable): Date CC: No Primary Care Physician; Mary Michel; PCP Signed 12 LEAD ELECTROCARDIOGRAM Observed: 12/18/2017 Status: F Source: JI 3:28 PM [facility] [place] [facility] Cardiovascular Services [address] [place] [address] [place] [address] 12 Lead EKG 12/16/17 2358 MR#: [id number] Acct: [id number] Name: ANTHONY JUNG Rep #: [id number] : 1960 57 From: Martin Covarrubias MD [...] ECG Confirmed by MARTIN COVARRUBIAS MD ([id number]), editor index HEIDE EDMONDS (54) on 12/18/2017 3:28:07 PM Referred By: JW Confirmed By:MARTIN COVARRUBIAS MD 12/18/17 1528 Date Martin Covarrubias MD CC: No Primary Care Physician; Lewis Molina MD Signed DISCHARGE SUMMARY Observed: 12/18/2017 Status: F Source: JI 1:58 PM [facility] [place] [facility] Medical Records Department [address] [place] [address] Discharge Summary 12/14/17 1547 MR#: [id number] Acct: [id number] Name: ANTHONY JUNG Rep #: [id number] : 1960 57 From: Ludin Paredes DO [...] Darrick Coreas MD at 11:05 EDT Tel [phone], Service support , Chest X-Ray 12/12/17 05:55 [...] A,B Direct FA (SHARON) - Final Annual [facility] Dr. Fco Ahmadi-technical sales representatives Dr. Morgan Cerda-infectious disease Operations: None Procedures: 2-D Echocardiogram, Cardiac catheterization Summary of Care Provided: Patient is a 57-year-old male with a past medical history of COPD, congestive heart failure, coronary artery disease, severe cardiomyopathy, former alcohol abuse and ongoing tobacco abuse who presented to the emergency room at [facility] by squad on 12/11/2017 due to severe [...] consultation by Dr. Bradford Tirado from the [facility] who recommended a cardiac catheterization. [...] pharmacy and given to the pt at [place]. He has been non-compliant with medications and follow up in the past and has had frequent hospital admissions, both in [place] and in [place]. I suspect he does not have the [...] Outreach program. This note was generated with [employer] dictation software. It may contain incorrect words, [...] 10 Code Visit Inpatient E AND M: 70317 Disch Hosp 12/18/17 1358 <Electronically signed by Ludin Paredes DO> Date Ludin Paredes DO Cosigner Signature (if applicable): Date CC: No Primary Care Physician; Ada Paredes; Bradford Tirado MD Signed DISCHARGE INSTRUCTION Observed: 12/18/2017 Status: F Source: [place] 9:07 AM [facility] [place] [facility] Medical Records Department [address] [place] [address] Instructions for Home/Discharge Instructions 12/18/17 0906 MR#: [id number] Acct: [id number] Name: WAYNE GAMBLESeunANTHONY Raffi Rep #: [id number] : 1960 57 From: Mary Michel MD [...] Physician TROPONIN-I Collected: 12/17/2017 Status: F Source: [place] 5:55 PM [facility] [place] [facility] Order Comment: 'TROP' Serial specimen #1, #2, #3, or #4: 4 TYPE CODE TESTS RESULT OUT OF RANGE REFERENCE UNITS LAB L501.4010 <0.06 ng/mL Normal 0.05 TROPONIN-I Result Comment: TROPONIN-I EXPECTED VALUES <0.05 NEGATIVE 0.06 - 0.59 AT RISK OF NE > OR = 0.60 SUGGEST NE Performed By: #### L501.4010 #### [facility] Laboratory [address] [facility] [place], [address] 12 LEAD ELECTROCARDIOGRAM Observed: 12/17/2017 Status: F Source: [place] 2:51 PM [facility] [place] [facility] Cardiovascular Services [address] [place] [address] 12 Lead EKG 12/13/17 1517 MR#: [id number] Acct: [id number] Name: ANTHONY JUNG Rep #: [id number] : 1960 57 From: Bradford Tirado MD [...] IS UNCONFIRMED Confirmed by BRADFORD TIRADO ([id number]), editor index HEIDE EDMONDS (54) on 12/17/2017 2:50:32 PM Referred By: EVY Confirmed By:BRADFORD TIRADO 12/17/17 1450 Date Bradford Tirado MD CC: No Primary Care Physician; Lewis Molina MD Signed 12 LEAD ELECTROCARDIOGRAM Observed: 12/17/2017 Status: F Source: [place] 2:50 PM [facility] [place] [facility] Cardiovascular Services [address] [place] [address] 12 Lead EKG 12/13/17 1501 MR#: [id number] Acct: [id number] Name: ANTHONY JUNG Rep #: [id number] : 1960 57 From: Bradford Tirado MD [...] IS UNCONFIRMED Confirmed by BRADFORD TIRADO ([id number]), editor index HEIDE EDMONDS (54) on 12/17/2017 2:49:58 PM Referred By: Confirmed By:BRADFORD TIRADO 12/17/17 1450 Date Bradford Tirado MD CC: No Primary Care Physician; Ada Paredes Signed 12 LEAD ELECTROCARDIOGRAM Observed: 12/17/2017 Status: F Source: [place] 2:44 PM [facility] REPOSIT[facility] Cardiovascular Services [address] [place] [address] 12 Lead EKG 12/14/17 0601 MR#: [id number] Acct: [id number] Name: ANTHONY JUNG W Rep #: [id number] : 1960 57 From: Bradford Tirado MD [...] Abnormal ECG Confirmed by BRADFORD TIRADO ([id number]), editor index HEIDE EDMONDS (54) on 12/17/2017 2:43:39 PM Referred By: EVY Confirmed By:BRADFORD TIRADO 12/17/17 1443 Date Bradford Tirado MD CC: No Primary Care Physician; Bradford Tirado MD Signed 12 LEAD ELECTROCARDIOGRAM Observed: 12/17/2017 Status: F Source: [place] 2:23 PM [facility] REPOS[facility] Cardiovascular Services [address] [place] [address] 12 Lead EKG 12/11/17 0819 MR#: [id number] Acct: [id number] Name: ANTHONY JUNG Rep #: [id number] : 1960 57 From: Bradford Tirado MD [...] Anterior leads Confirmed by BRADFORD TIRADO ([id number]), editor index HEIDE EDMONDS (54) on 12/17/2017 2:23:11 PM Referred By: Confirmed By:BRADFORD TIRADO 12/17/17 1423 Date Bradford Tirado MD CC: No Primary Care Physician; Ada Paredes Signed TROPONIN-I Collected: 12/17/2017 Status: F Source: [place] 8:00 AM [facility] [place] [facility] Order Comment: 'TROP' Serial specimen #1, #2, #3, or #4: 2 TYPE CODE TESTS RESULT OUT OF RANGE REFERENCE UNITS LAB L501.4010 <0.06 ng/mL High 0.07 TROPONIN-I Result Comment: TROPONIN-I EXPECTED VALUES <0.05 NEGATIVE 0.06 - 0.59 AT RISK OF NE > OR = 0.60 SUGGEST NE Performed By: #### L501.4010 #### [facility] Laboratory [address] [facility] [place], [address] EMERGENCY DEPARTMENT Observed: 12/17/2017 Status: F Source: [place] SUMMARY 7:00 AM [facility] [place] Medical Records Department [address] [facility] [place] [place] [address] Emergency Department Summary 12/17/17 0114 MR#: [id number] Acct: [id number] Name: ANTHONY JUNG Rep #: [id number] : 1960 57 From: Lewis Molina MD [...] chronic anemia This note was generated with [employer] software. It may contain incorrect words, spelling, [...] your Primary Care Provider. Call [facility] ([phone]) or report to the closest Emergency Room. Call 911 if necessary. 12/17/17 0700 <Electronically signed by Lewis Molina MD> Date Lewis Molina MD Cosigner Signature (If Indicated): Date CC: No Primary Care Physician CBC-COMPLETE BLOOD CNT Collected: 12/17/2017 Status: F Source: [place] NO DIFF 4:37 AM [facility] [place] TYPE CODE TESTS RESULT OUT OF [...] 8.3 Performed By: #### L100.0500, L100.4500 #### [facility] Laboratory [address] [place], [address] DIFFERENTIAL COMMENT Collected: 12/17/2017 Status: F Source: [place] 4:37 AM [facility] [place] TYPE CODE TESTS RESULT OUT OF RANGE REFERENCE UNITS LAB L100.4500 Normal SMEAR COMMENT SCANNED Result Comment: 3+ ANISOCYTOSIS 2+ OVALOCYTOSIS 2+ TARGET CELLS 2+ MICROCYTOSIS Performed By: #### L100.0500, L100.4500 #### [facility] Laboratory [address] [place], [address] BASIC METABOLIC Collected: 12/17/2017 Status: F Source: [place] PROFILE (BMP) 4:37 AM [facility] [place] TYPE CODE TESTS RESULT OUT OF [...] 8 Performed By: #### L500.2500, L501.5200 #### [facility] [address] [place], [address] MAGNESIUM Collected: 12/17/2017 Status: F Source: [place] 4:37 AM [facility] [place] TYPE CODE TESTS RESULT OUT OF RANGE REFERENCE UNITS LAB L501.5200 1.6-2.6 mg/dL Normal MG 2.0 Result Comment: Please note revised Magnesium reference range effective 2017. Performed By: #### L500.2500, L501.5200 #### [facility] [address] [facility] [place], [address] HISTORY AND PHYSICAL Observed: 12/17/2017 Status: F Source: [place] EXAM 3:18 AM [facility] [place] [facility] Medical Records Department [address] [facility] [place] [address] History and Physical 12/17/17 0207 MR#: [id number] Acct: [id number] Name: ANTHONY JUNG Rep #: [id number] : 1960 57 From: Vaishali Cr PCP: Care Physician, No Primary Status: ADM KEITH [facility] [place] Problem List (1) MRSA (methicillin resistant Staphylococcus [...] Artery/Lesion type: unspecified vessel or lesion type [place] vs. transplanted heart: unspecified whether ambler or transplanted heart Associated angina: angina presence unspecified Qualified Code(s): I25.10 - Atherosclerotic heart disease of ambler coronary artery without angina pectoris (7) COPD [...] HCAP who now re-presents to the [facility] ED on 12/17/17 with onset the evening [...] HCAP who now re-presents to the [facility] ED on 12/17/17 with onset the evening [...] lovenox. Code Visit OBSV E AND M: 27957 Initial observation care L3 12/17/17317 <Electronically signed by Vaishali Cr > Date Vaishali Cr Cosigner Signature: Date (if applicable) CC: No Primary Care Physician; Vaishali Cr Signed LACTIC ACID Collected: 12/17/2017 Status: F Source: [place] 12:08 AM [facility] [place] Order Comment: Yes/No query for Sepsis Lactate Rule Y TYPE CODE TESTS RESULT OUT OF RANGE REFERENCE UNITS LAB L503.6005 0.4-2.0 mmol/L Normal LACTIC ACID 1.1 Performed By: #### L503.6005 #### [facility] [address] [facility] [place], [address] CHEST 1 VIEW Observed: 12/16/2017 Status: F Source: [place] (PORTABLE) 11:49 PM [facility] [place] [facility] Imaging Services [address] [place] [address] Chest 1 View (Portable) MR#: [id number] Acct: [id number] Name: ANTHONY JUNG Rep #: [id number] : 1960 M 57 From: Trey Roman MD PCP: Care Physician, No Primary Status: REG ER Study: Chest 1 View (Portable) Date of Exam: 12/16/17 Exam# [id number] Ordering Dr: Lewis Molina MD STUDY: X-RAY [...] No Primary Care Physician; Lewis Molina MD Cosmetology Educator: Signed CBC W/DIFF, AUTOMATED Collected: 12/16/2017 Status: C Source: [place] 11:10 PM [facility] [place] [facility] TYPE CODE TESTS RESULT OUT OF [...] as: January Performed By: #### L100.0100 #### [facility] [address] [place], [address] BASIC METABOLIC Collected: 12/16/2017 Status: F Source: JI PROFILE ([facility]) 11:10 PM [facility] [place] [facility] Order Comment: 'TROP' Serial specimen #1, [...] 7 Performed By: #### L500.2500, L501.4010 #### [facility] [address] [facility]. [place], [place], [address] TROPONIN-I Collected: 12/16/2017 Status: F Source: [place] 11:10 PM [facility] [place] [facility] Order Comment: 'TROP' Serial specimen #1, #2, #3, or #4: 1 TYPE CODE TESTS RESULT OUT OF RANGE REFERENCE UNITS LAB L501.4010 <0.06 ng/mL High 0.08 TROPONIN-I Result Comment: TROPONIN-I EXPECTED VALUES <0.05 NEGATIVE 0.06 - 0.59 AT RISK OF NE > OR = 0.60 SUGGEST NE Performed By: #### L500.2500, L501.4010 #### [facility] [address] [place], [place], [address] DISCHARGE INSTRUCTION Observed: 12/14/2017 Status: F Source: JI 3:47 PM [facility] [place] [facility] Medical Records Department [address] [place] [address] Instructions for Home/Discharge Instructions 12/14/17 0946 MR#: [id number] Acct: [id number] Name: ANTHONY JUNG Rep #: [id number] : 1960 57 From: Ludin Paredes DO [...] 12/14/2017 Status: F Source: JI 1:34 PM [facility] [place] [facility] Medical Records Department [address] [place] [address] [place] [address] Consultation 12/14/17 1329 MR#: [id number] Acct: [id number] Name: ANTHONY JUNG Rep #: [id number] : 1960 57 From: Morgan Cerda MD [...] F Source: JI NO DIFF 12:00 PM [facility] [place] [facility] TYPE CODE TESTS RESULT OUT OF [...] 8.5 Performed By: #### L100.0500, L100.4500 #### [facility] [address] [place], [address] DIFFERENTIAL COMMENT Collected: 12/14/2017 Status: C Source: [place] 12:00 PM [facility] [place] [facility] TYPE CODE TESTS RESULT OUT OF RANGE REFERENCE UNITS LAB L100.4500 Normal SMEAR COMMENT Result Comment: 2+ ANISOCYTOSIS 1+ TARGET CELLS 1+ OVALOCYTES RARE SCHISTOCYTE PALTELETS APPEAR SLIGHTLY ELEVATED AMENDED REPORT 12/14/17 1250 SMEAR COMMENT previously reported as: 2+ ANISOCYTOSIS 1+ TARGET CELLS 1+ OVALOCYTES RARE SCHISTOCYTE Performed By: #### L100.0500, L100.4500 #### [facility] [address] [place], [address] CPK TOTAL, CREATINE Collected: 12/14/2017 Status: F Source: [place] KINASE 12:00 PM [facility] [place] [facility] TYPE CODE TESTS RESULT OUT OF RANGE REFERENCE UNITS LAB L501.3620 39-308 U/L Normal CPK TOTAL 67 Result Comment: Moderate Hemolysis, Result may be falsely increased. Performed By: #### L501.3620 #### [facility] [address] [place] [place], [address] Observed: 12/14/2017 Status: F Source: [place]I CULTURE, BLOOD (WB) 12:00 PM [facility] [place] [facility] BC No growth in 5 days. Performed By: #### M200.1000 #### [facility] [address] [place], [address] TROPONIN-I Collected: 12/14/2017 Status: F Source: JI 5:00 AM [facility] [place] [facility] Order Comment: 'TROP' Serial specimen #1, #2, #3, or #4: 4 TYPE CODE TESTS RESULT OUT OF RANGE REFERENCE UNITS LAB L501.4010 <0.06 ng/mL High 0.07 TROPONIN-I Result Comment: TROPONIN-I EXPECTED VALUES <0.05 NEGATIVE 0.06 - 0.59 AT RISK OF NE > OR = 0.60 SUGGEST NE Performed By: #### L501.4010 #### [facility] [address] [place], [place], [address] CBC-COMPLETE BLOOD CNT Collected: 12/14/2017 Status: F Source: JI NO DIFF 5:00 AM [facility] [place] [facility] TYPE CODE TESTS RESULT OUT OF [...] 8.3 Performed By: #### L100.0500, L100.4500 #### [facility] [address] [place], [address] DIFFERENTIAL COMMENT Collected: 12/14/2017 Status: F Source: JI 5:00 AM [facility] [place] [facility] TYPE CODE TESTS RESULT OUT OF RANGE REFERENCE UNITS LAB L100.4500 Normal SMEAR COMMENT SCANNED Result Comment: 1+ ANISOCYTOSIS Performed By: #### L100.0500, L100.4500 #### [facility] [address] [place], [address] PROTHROMBIN TIME W/INR Collected: 12/14/2017 Status: F Source: JI 5:00 AM [facility] [place] [facility] TYPE CODE TESTS RESULT OUT OF RANGE REFERENCE UNITS LAB L300.4150 11.7-14.9 SECONDS High PROTIME 15.2 LAB L300.4200 Normal INR 1.2 Performed By: #### L300.3900, L300.4310 #### [facility] [address] [place], [address] PARTIAL THROMBOPLAST Collected: 12/14/2017 Status: F Source: JI TIME 5:00 AM [facility] [place] [facility] TYPE CODE TESTS RESULT OUT OF RANGE REFERENCE UNITS LAB L300.4310 24.1-36.2 Seconds Normal PTT 26.7 Performed By: #### L300.3900, L300.4310 #### [facility] [address] [place], [address] BASIC METABOLIC Collected: 12/14/2017 Status: F Source: [place]I PROFILE (BMP) 5:00 AM [facility] [place] [facility] TYPE CODE TESTS RESULT OUT OF [...] Normal 6 Performed By: #### L500.2500 #### [facility] [address] [facility] [place], [place], [address] TROPONIN-I Collected: 12/13/2017 Status: F Source: [place] 5:00 PM [facility] [place] [facility] Order Comment: 'TROP' Serial specimen #1, #2, #3, or #4: 1 TYPE CODE TESTS RESULT OUT OF RANGE REFERENCE UNITS LAB L501.4010 <0.06 ng/mL High 0.07 TROPONIN-I Result Comment: TROPONIN-I EXPECTED VALUES <0.05 NEGATIVE 0.06 - 0.59 AT RISK OF NE > OR = 0.60 SUGGEST NE Performed By: #### L501.4010 #### [facility] [address] [place], [place], [address] Observed: 12/13/2017 Status: F Source: JI CULTURE, BLOOD (WB) 9:50 AM [facility] [place] [facility] Has pt arrived? Y BC No growth in 5 days. Performed By: #### M200.1000 #### [facility] [address] [facility] [place], [place], [address] Observed: 12/13/2017 Status: F Source: [place]I CULTURE, BLOOD (WB) 9:45 AM [facility] [place] [facility] Has pt arrived? Y BC AEROBIC BOTTLE GRAM STAIN: GRAM POSTIVE COCCI IN CLUSTERS RESULTS CALLED TO MAURILIO Howard/ICU 12/14/17 Yann Cornell. REPORT READ BACK BY SAME . Possible skin contamination, further Identification and sensitivity will be performed only by physician's request. ORGANISM 1: Staphylococcus epidermidis Amount Growth Growth Performed By: #### M200.1000, M100.636 #### [facility] [address] [place], [address] Observed: 12/13/2017 Status: C Source: JI BC GPC ID 9:45 AM [facility] [place] [facility] Has pt arrived? Y BC GPC ID Staphylococcus sp. Staphylococcus epidermidis Enterococcus sp. Not Detected Streptococcus spp. Not Detected Listeria spp Not Detected José Luis/vanB Not Detected mecA mecA Resistance Marker Detected NAAT METHOD Testing was performed using nucleic acid amplification ORGANISM 1: Staphylococcus epidermidis ORGANISM 2: mecA Resistance Marker Performed By: #### M200.1000, M100.636 #### [facility] [address] [place], [address] BASIC METABOLIC Collected: 12/13/2017 Status: F Source: [place]I PROFILE (BMP) 5:30 AM [facility] [place] [facility] TYPE CODE TESTS RESULT OUT OF [...] 7 Performed By: #### L500.2500, L501.5200 #### [facility] [address] [facility] [place], [address] MAGNESIUM Collected: 12/13/2017 Status: F Source: [place] 5:30 AM [facility] [place] [facility] TYPE CODE TESTS RESULT OUT OF RANGE REFERENCE UNITS LAB L501.5200 1.6-2.6 mg/dL Normal MG 2.2 Result Comment: Please note revised Magnesium reference range effective 2017. Performed By: #### L500.2500, L501.5200 #### [facility] [address] [facility] [place], [address] 12 LEAD ELECTROCARDIOGRAM Observed: 12/12/2017 Status: F Source: [place] 3:36 PM [facility] [place] [facility] Cardiovascular Services [address] [place] [address] 12 Lead EKG 12/10/17 2308 MR#: [id number] Acct: [id number] Name: ANTHONY JUNG Rep #: [id number] : 1960 57 From: Martin Covarrubias MD [...] ECG Confirmed by MARTIN COVARRUBIAS MD ([id number]), editor index HEIDE EDMONDS ([id number]) on 12/12/2017 3:36:16 PM Referred By: VASILE Confirmed By:MARTIN COVARRUBIAS MD 12/12/17 8437 Date Martin Covarrubias MD CC: No Primary Care Physician; Dana Stewart MD Signed CONSULTATION Observed: 12/12/2017 Status: F Source: [place] 8:15 AM [facility] [place] [facility] Medical Records Department [address] [place] [address] Consultation 12/11/17 0455 MR#: [id number] Acct: [id number] Name: ANTHONY JUNG Rep #: [id number] : 1960 57 From: Fco Ahmadi DO [...] ischemic cardiomyopathy and was following with a timber watchman in [place], who has since retired. He has not been routinely followed by a timber watchman recently. He has been traveling back and forth from [place] to [place], where his brother resides. His brother states that he was discharged from a hospital in [place] 10 days ago and then traveled here to [place], where he plans to stay indefinitely. The [...] - Nasopharyngeal Influenza Types A,B Direct FA ([facility]) - Final Clinical Impression(s) from Imaging [...] to obtain outside cardiac medical records from [place]. Repeat echocardiogram is pending. Cardiology is following [...] data and collaboration with the care team. ([id number]) Code Visit 9xxxx: [id number] Critical care first hour 12/12/17 0815 <Electronically signed by Fco Ahmadi DO> Date Fco Ahmadi DO Cosigner Signature (if applicable): Date CC: No Primary Care Physician; Bradford Tirado MD; Fco Ahmadi D.O. Signed BASIC METABOLIC Collected: 12/12/2017 Status: F Source: [place] PROFILE (BMP) 4:15 AM [facility] [place] [facility] TYPE CODE TESTS RESULT OUT OF [...] Performed By: #### L500.2500, L501.2300, L501.5200 #### [facility] [address] [place], [address] PHOSPHORUS Collected: 12/12/2017 Status: F Source: JI 4:15 AM [facility] [place] [facility] TYPE CODE TESTS RESULT OUT OF RANGE REFERENCE UNITS LAB L501.2300 2.5-4.9 mg/dL Normal PHOS 4.4 Performed By: #### L500.2500, L501.2300, L501.5200 #### [facility] [address] [place], [address] MAGNESIUM Collected: 12/12/2017 Status: F Source: JI 4:15 AM [facility] [place] [facility] TYPE CODE TESTS RESULT OUT OF RANGE REFERENCE UNITS LAB L501.5200 1.6-2.6 mg/dL Normal MG 2.3 Result Comment: Please note revised Magnesium reference range effective 2017. Performed By: #### L500.2500, L501.2300, L501.5200 #### [facility] [address] [facility] [place], [place], [address] CBC-COMPLETE BLOOD CNT Collected: 12/12/2017 Status: F Source: JI NO DIFF 4:15 AM [facility] [place] [facility] TYPE CODE TESTS RESULT OUT OF [...] 8.7 Performed By: #### L100.0500, L100.4500 #### [facility] [address] [place], [place], [address] DIFFERENTIAL COMMENT Collected: 12/12/2017 Status: F Source: [place] 4:15 AM [facility] [place] [facility] TYPE CODE TESTS RESULT OUT OF RANGE REFERENCE UNITS LAB L100.4500 Normal SMEAR COMMENT SCAN Result Comment: ANISOCYTOSIS 2+ HYPOCHROMIA 1+ POLYCHROMASIA 1+ MICROCYTOSIS 1+ Performed By: #### L100.0500, L100.4500 #### [facility] [address] [place], [address] CHEST 1 VIEW Observed: 12/12/2017 Status: F Source: [place] (PORTABLE) 12:01 AM [facility] [place] [facility] Imaging Services [address] [place] [address] Chest 1 View (Portable) MR#: [id number] Acct: [id number] Name: ANTHONY JUNG Rep #: [id number] : 1960 M 57 From: Ilsa Lobato MD PCP: Care Physician, No Primary Status: ADM IN Study: Chest 1 View (Portable) Date of Exam: 12/12/17 Exam# [id number] Ordering Dr: Ludin Paredes DO STUDY: X-RAY [...] CC: No Primary Care Physician; Ada Paredes Cosmetology Educator: Signed TROPONIN-I Collected: 12/11/2017 Status: F Source: [place] 7:00 PM [facility] [place] [facility] Order Comment: 'TROP' Serial specimen #1, #2, #3, or #4: 4 TYPE CODE TESTS RESULT OUT OF RANGE REFERENCE UNITS LAB L501.4010 <0.06 ng/mL High 0.09 TROPONIN-I Result Comment: TROPONIN-I EXPECTED VALUES <0.05 NEGATIVE 0.06 - 0.59 AT RISK OF NE > OR = 0.60 SUGGEST NE Performed By: #### L501.4010 #### [facility] [address] [place], [place], [address] BASIC METABOLIC Collected: 12/11/2017 Status: F Source: [place] PROFILE (BMP) 4:15 PM [facility] [place] [facility] TYPE CODE TESTS RESULT OUT OF [...] Normal 6 Performed By: #### L500.2500 #### [facility] [address] [place], [address] TROPONIN-I Collected: 12/11/2017 Status: F Source: [place] 1:15 PM [facility] [place] [facility] Order Comment: 'TROP' Serial specimen #1, #2, #3, or #4: 3 TYPE CODE TESTS RESULT OUT OF RANGE REFERENCE UNITS LAB L501.4010 <0.06 ng/mL High 0.08 TROPONIN-I Result Comment: TROPONIN-I EXPECTED VALUES <0.05 NEGATIVE 0.06 - 0.59 AT RISK OF NE > OR = 0.60 SUGGEST NE Performed By: #### L501.4010 #### [facility] [address] [place], [address] CONSULTATION Observed: 12/11/2017 Status: F Source: [place] 11:19 AM [facility] [place] [facility] Medical Records Department [address] [place] [address] Consultation 12/11/17 1109 MR#: [id number] Acct: [id number] Name: WAYNE GAMBLEANTHONY Kohli Raffi Rep #: [id number] : 1960 57 From: Bradford Tirado MD [...] family members available, recent medical records from [place] reviewed which indicate the patient has a [...] There are no previous catheterization reports here [facility]. [] Past Medical History Allergies/Adverse Reactions: [...] 91.6 H, Lymph % (Auto) 6.7 L, [place] % (Auto) 1.0, Eos % (Auto) 0.0, [...] may have had this done down in [place]. At this point I would recommend judicious [...] AM. Code Visit Inpatient E AND M: [id number] Init Hosp 12/11/17 1119 <Electronically signed by Bradford Tirado MD> Date Bradford Tirado MD Cosigner Signature (if applicable): Date CC: No Primary Care Physician; Bradford Tirado MD; Fco Ahmadi D.O. Signed Observed: 12/11/2017 Status: F Source: JI CULTURE, SPUTUM 11:10 AM [facility] [place] [facility] Gram Stain Acceptable Specimen? Yes (<25 [...] 1 S (NF) indicates non-formulary drug at [facility]. Approval by Infectious Disease Specialist required before non-formulary drugs may be ordered and/or dispensed. * CLSI guidelines does not recommend testing of cephalosporins. This interpretation is deduced from Beta-lactam/penicillin results. Performed By: #### M100.0800 #### [facility] [address] [facility] [place], [address] ECHOCARDIOGRAM COMPLETE Observed: 12/11/2017 Status: F Source: [place] 10:14 AM [facility] [place] [facility] Cardiovascular Services [address] [place] [address] Echo Complete 12/11/17 0721 MR#: [id number] Acct: [id number] Name: ANTHONY JUNG Raffi Rep #: [id number] : 1960 57 From: Bradford Tirado MD [...] Date Dictated: 12/11/17720 Date Transcribed: 12/11/17 1014 Cosmetology Educator: Signed ALCOHOL, BLOOD Collected: 12/11/2017 Status: F Source: [place] (MEDICAL)-SERUM 8:55 AM [facility] [place] [facility] TYPE CODE TESTS RESULT OUT OF [...] coma Performed By: #### L505.5000, L501.9100 #### [facility] [address] [place], [address] URINE DRUG SCREEN Collected: 12/11/2017 Status: F Source: JI (VISTA) 8:35 AM [facility] [place] [facility] TYPE CODE TESTS RESULT OUT OF [...] NEGATIVE Performed By: #### L505.5000, L501.9100 #### [facility] [place], [place], [address] Observed: 12/11/2017 Status: F Source: [place] RESPIRATORY PANEL 7:25 AM [facility] [place] [facility] RP PANEL ADENOVIRUS Not Detected [...] acid amplification Performed By: #### M100.638 #### [facility] [address] [place] [address], [id number] CHEST 1 VIEW Observed: 12/11/2017 Status: F Source: [place] (PORTABLE) 7:10 AM [facility] [place] [facility] Imaging Services [address] [place] [address] Chest 1 View (Portable) MR#: [id number] Acct: [id number] Name: ANTHONY JUNG Rep #: [id number] : 1960 M 57 From: Darrick Coreas MD PCP: Care Physician, No Primary Status: ADM IN Study: Chest 1 View (Portable) Date of Exam: 12/11/17 Exam# [id number] Ordering Dr: Fco Ahmadi DO STUDY: X-RAY [...] Darrick Coreas MD at 11:05 EDT Tel [phone], Service support , CC: No Primary Care Physician; Fco Ahmadi D.O. Cosmetology Educator: Signed BLOOD GASES BY CPS Collected: 12/11/2017 Status: F Source: JI 6:11 AM [facility] [place] [facility] TYPE CODE TESTS RESULT OUT OF [...] ISTAT 100 Performed By: #### L9000.0800 #### [facility] Point of Care [address] [place], [place] [address] CBC W/DIFF, AUTOMATED Collected: 12/11/2017 Status: F Source: JI 5:50 AM [facility] [place] [facility] Order Comment: Order Date: 12/11/17 TYPE [...] Normal 1+ Performed By: #### L100.0100 #### [facility] [address] [place], [address] BASIC METABOLIC Collected: 12/11/2017 Status: F Source: [place] PROFILE ([facility]) 5:50 AM [facility] [place] [facility] Order Comment: Order Date: 12/11/17 TYPE [...] 10 Performed By: #### L500.2500, L501.5200 #### [facility] [address] [place], [address] MAGNESIUM Collected: 12/11/2017 Status: F Source: [place] 5:50 AM [facility] [place] [facility] Order Comment: Order Date: 12/11/17 TYPE CODE TESTS RESULT OUT OF RANGE REFERENCE UNITS LAB L501.5200 1.6-2.6 mg/dL Normal MG 2.1 Result Comment: Please note revised Magnesium reference range effective 2017. Performed By: #### L500.2500, L501.5200 #### [facility] [address] [place], [address] PHOSPHORUS Collected: 12/11/2017 Status: F Source: [place] 5:50 AM [facility] [place] [facility] TYPE CODE TESTS RESULT OUT OF RANGE REFERENCE UNITS LAB L501.2300 2.5-4.9 mg/dL High PHOS 5.2 Performed By: #### L501.2300 #### [facility] [address] [place], [address] RETIC PANEL Collected: 12/11/2017 Status: F Source: [place] 5:50 AM [facility] [place] [facility] TYPE CODE TESTS RESULT OUT OF [...] bone marrow. Performed By: #### L100.9950 #### [facility] [address] [place], [address] IRON+IRON BINDING Collected: 12/11/2017 Status: F Source: [facility] 5:50 AM [facility] [place] [facility] TYPE CODE TESTS RESULT OUT OF RANGE REFERENCE UNITS LAB L503.6075 250-450 ug/dL TIBC Normal 439 LAB L503.6150 65-175 ug/dL Low IRON 27 LAB L503.6250 15.0-55.0 % Low IRON SATURATION 6.2 Performed By: #### L503.6030, L503.6550 #### [facility] [address] [place], [place], [address] FERRITIN Collected: 12/11/2017 Status: F Source: [place] 5:50 AM [facility] [place] [facility] TYPE CODE TESTS RESULT OUT OF RANGE REFERENCE UNITS LAB L503.6550 26-388 ng/mL Normal FERRITIN 46 Performed By: #### L503.6030, L503.6550 #### [facility] [address] [place], [place], [address] COMPREHENSIVE METABOLIC Collected: 12/11/2017 Status: F Source: [facility] 5:50 AM [facility] [place] [facility] Order Comment: 'TROP' Serial specimen #1, [...] 11 Performed By: #### L500.4050, L501.4010 #### [facility] [address] [facility] [place], [address] TROPONIN-I Collected: 12/11/2017 Status: F Source: [place] 5:50 AM [facility] [place] [facility] Order Comment: 'TROP' Serial specimen #1, #2, #3, or #4: 1 TYPE CODE TESTS RESULT OUT OF RANGE REFERENCE UNITS LAB L501.4010 <0.06 ng/mL High 0.08 TROPONIN-I Result Comment: TROPONIN-I EXPECTED VALUES <0.05 NEGATIVE 0.06 - 0.59 AT RISK OF NE > OR = 0.60 SUGGEST NE Performed By: #### L500.4050, L501.4010 #### [facility] [address] [facility] [place], [address] M R STAPH AUREUS Collected: 12/11/2017 Status: F Source: JI DNA BY PCR 3:35 AM [facility] [place] [facility] TYPE CODE TESTS RESULT OUT OF REFERENCE UNITS RANGE LAB L8200.1100 Negative High MRSA POSITIVE RESULT Result Comment: CRITICAL VALUE VERIFIED. CALLED TO MONTSERRAT BAUMAN 12/11/17 0534 Nette Stevens. RESULTS READ BACK BY SAME . Performed By: #### L8200.1000 #### [facility] [address] [place], [address] EMERGENCY DEPARTMENT Observed: 12/11/2017 Status: F Source: [place] SUMMARY 2:11 AM [facility] [place] [facility] Medical Records Department [address] [place] [address] Emergency Department Summary 12/11/17 0206 MR#: [id number] Acct: [id number] Name: ANTHONY JUNG Rep #: [id number] : 1960 57 From: Dana Stewart MD [...] COPD exacerbation This note was generated with Field Dailies dictation software. It may contain incorrect words, [...] problems, contact your Primary Care Provider. Call [facility] ([phone]) or report to the closest Emergency Room. Call 911 if necessary. 12/11/17 0211 <Electronically signed by Dana Stewart MD> Date Dana Stewart MD Cosigner Signature (If Indicated): Date CC: No Primary Care Physician HISTORY AND PHYSICAL Observed: 12/11/2017 Status: F Source: [place]AM 1:34 AM [facility] [place] [facility] Medical Records Department [address] [place] [address] History and Physical 12/11/17 0125 MR#: [id number] Acct: [id number] Name: WAYNE GAMBLEANTHONY Kohli Raffi Rep #: [id number] : 1960 57 From: Lionel Henry MD [...] prophylaxis Code Visit Inpatient E AND M: 19170 Init Hosp L3 12/11/17 0134 <Electronically signed by Lionel Henry MD> Date Lionel Henry MD Cosigner Signature: Date (if applicable) CC: No Primary Care Physician; Lionel Henry MD Signed Observed: 12/11/2017 Status: F Source: JI INFLUENZA A+B (RAPID 12:54 AM [facility] [place] REPOSITORY FLU A/B Rapid Negative test results should be confirmed by culture. Order Rapid Viral Culture for Influenzae A+B (213410) if clinically indicated. Influenza Ag, Direct Presumptive NEGATIVE for Influenza A/B Antigen (See Note) Performed By: #### M101.0101 #### [facility] [address] [place], [address] CHEST 1 VIEW Observed: 12/10/2017 Status: F Source: JI (PORTABLE) 11:56 PM [facility] [place] [facility] Imaging Services [address] [place] [address] Chest 1 View (Portable) MR#: [id number] Acct: [id number] Name: ANTHONY JUNG Raffi Rep #: [id number] : 1960 M 57 From: Elizabeth Welsh MD PCP: Care Physician, No Primary Status: REG ER Study: Chest 1 View (Portable) Date of Exam: 12/11/17 Exam# [id number] Ordering Dr: Dana Stewart MD STUDY: X-RAY [...] No Primary Care Physician; Dana Stewart MD Cosmetology Educator: Signed BLOOD GASES BY CPS Collected: 12/10/2017 Status: F Source: [place] 11:28 PM [facility] [place] TYPE CODE TESTS RESULT OUT OF [...] ISTAT 99 Performed By: #### L9000.0800 #### [facility] Point of Care [address] [facility] [place] [address] LACTIC ACID Collected: 12/10/2017 Status: F Source: [place] 11:10 PM [facility] [place] Order Comment: Yes/No query for Sepsis Lactate Rule Y TYPE CODE TESTS RESULT OUT OF RANGE REFERENCE UNITS LAB L503.6005 0.4-2.0 mmol/L Normal LACTIC ACID 1.6 Performed By: #### L503.6005 #### [facility] [address] [place], [address] CHEST 1 VIEW Observed: 12/10/2017 Status: F Source: JI (PORTABLE) 11:03 PM [facility] HOSPITAL REPOSITORY [facility] Imaging Services [address] [address] Chest 1 View (Portable) MR#: [id number] Acct: [id number] Name: ANTHONY JUNG Rep #: [id number] : 1960 M 57 From: Noel Saha DO PCP: Care Physician, No Primary Status: REG ER Study: Chest 1 View (Portable) Date of Exam: 12/10/17 Exam# [id number] Ordering Dr: Dana Stewart MD STUDY: X-RAY [...] focal consolidation or acute process. Electronically Signed: Nole Saha DO at 23:23 EDT , Service support , CC: No Primary Care Physician; Dana Stewart MD Cosmetology Educator: Signed PROTHROMBIN TIME W/INR Collected: 12/10/2017 Status: F Source: [place] 11:00 PM [facility] [place] TYPE CODE TESTS RESULT OUT OF RANGE REFERENCE UNITS LAB L300.4150 11.7-14.9 SECONDS High PROTIME 15.2 LAB L300.4200 Normal INR 1.2 Performed By: #### L300.3900 #### [facility] [address] [place], [place], [address] CBC W/DIFF, AUTOMATED Collected: 12/10/2017 Status: F Source: JI 11:00 PM [facility] [place] TYPE CODE TESTS RESULT OUT OF [...] Normal 1+ Performed By: #### L100.0100 #### [facility] [address] [place], [address] BASIC METABOLIC Collected: 12/10/2017 Status: F Source: JI PROFILE (BMP) 11:00 PM [facility] [place] Order Comment: 'TROP' Serial specimen #1, [...] 9 Performed By: #### L500.2500, L501.4010 #### [facility] [address] [place], [address] TROPONIN-I Collected: 12/10/2017 Status: F Source: JI 11:00 PM [facility] [place] Order Comment: 'TROP' Serial specimen #1, #2, #3, or #4: 1 TYPE CODE TESTS RESULT OUT OF RANGE REFERENCE UNITS LAB L501.4010 <0.06 ng/mL High 0.08 TROPONIN-I Result Comment: TROPONIN-I EXPECTED VALUES <0.05 NEGATIVE 0.06 - 0.59 AT RISK OF NE > OR = 0.60 SUGGEST NE Performed By: #### L500.2500, L501.4010 #### [facility] [address] [place], [address] BNP,B-TYPE NATRIURETIC Collected: 12/10/2017 Status: F Source: JI PEPTIDE 11:00 PM [facility] [place] TYPE CODE TESTS RESULT OUT OF RANGE REFERENCE UNITS LAB L503.6620 0-100 pg/mL High B-TYPE 1576.8 HENRY PEP Performed By: #### L503.6620 #### [facility] [address] [place], [address] 12 LEAD ELECTROCARDIOGRAM Observed: 12/10/2017 Status: F Source: JI 2:59 PM [facility] [place] [facility] Cardiovascular Services [address] [place] [address] 12 Lead EKG 12/07/17 1520 MR#: [id number] Acct: [id number] Name: ANTHONY JUNG Rep #: [id number] : 1960 57 From: Martin Covarrubias MD [...] ECG Confirmed by MARTIN COVARRUBIAS MD ([id number]), editor index HEIDE EDMONDS ([id number]) on 12/10/2017 2:58:57 PM Referred By: KG Confirmed By:MARTIN COVARRUBIAS MD 12/10/17 1459 Date Martin Covarrubias MD CC: No Primary Care Physician; Lewis Molina MD Signed DISCHARGE INSTRUCTION Observed: 12/07/2017 Status: F Source: JI 11:50 PM [facility] [place] [facility] Medical Records Department [address] [place] [address] Discharge Instruction 12/07/17 1901 MR#: [id number] Acct: [id number] Name: ANTHONY JUNG Rep #: [id number] : 1960 57 From: Lewis Molina MD [...] physician locally as soon as possible. Follow [facility] clinic across the street from the hospital in the clinic specifically set up with people financial need they may be of assistance. Also for free to call the hospital on Sunday and discuss with psych social worker any assistance he may be I will [...] your Primary Care Provider. Call [facility] ([phone]) or report to the closest Emergency Room. Call 911 if necessary. 12/07/17 2350 <Electronically signed by Lewis Molina MD> Date Lewis Molina MD Cosigner Signature (If Indicated): Date CC: No Primary Care Physician EMERGENCY DEPARTMENT Observed: 12/07/2017 Status: F Source: [place] SUMMARY 11:49 PM [facility] [place] [facility] Medical Records Department [address] [place] [address] Emergency Department Summary 12/07/17 1544 MR#: [id number] Acct: [id number] Name: ANTHONY JUNG Rep #: [id number] : 1960 57 From: Lewis Molina MD PCP: Care Physician, No Primary Status: DEP ER - ER Visit Summary Date of Service: 12/07/17 Chief Complaint: Shortness of breath History of Present Illness: The patient is a 57 M significant past medical history of CAD with 10-15 cardiac stents prior NE prior CHF ejection fraction of 15%, COPD normally on 3 L and a history of A. fib. Patient is from [place] and was just released from the hospital [...] with the patient and his brother and [id number]-[id number]-kyf at bedside. He absolutely does not want to be admitted. Currently on room air is 99-100%. Her a lot of social issues going on with his move from [place] to [place]. He is on [facility] Medicaid and that has been transferred [...] anemia. History of COPD History of the, NE, multiple cardiac stents, history of, history of cardiomyopathy. This note was generated with Field Dailies dictation software. It may contain incorrect words, [...] your Primary Care Provider. Call [facility] ([phone]) or report to the closest Emergency Room. Call 911 if necessary. 12/07/17 8981 <Electronically signed by Lewis Molina MD> Date Lewsi Molina MD Cosigner Signature (If Indicated): Date CC: No Primary Care Physician CBC W/DIFF, AUTOMATED Collected: 12/07/2017 Status: F Source: JI 3:50 PM [facility] [place] TYPE CODE TESTS RESULT OUT OF [...] 1+ ANISOCYTOSIS Performed By: #### L100.0100 #### [facility] [address] [place], [address] BASIC METABOLIC Collected: 12/07/2017 Status: F Source: [place] PROFILE (BMP) 3:50 PM [facility] [place] Order Comment: 'TROP' Serial specimen #1, [...] GAP Performed By: #### L500.2500, L501.4010 #### [facility] [address] [facility] [place], [address] TROPONIN-I Collected: 12/07/2017 Status: F Source: JI 3:50 PM [facility] [place] Order Comment: 'TROP' Serial specimen #1, #2, #3, or #4: 1 TYPE CODE TESTS RESULT OUT OF RANGE REFERENCE UNITS LAB L501.4010 <0.06 ng/mL High 0.09 TROPONIN-I Result Comment: TROPONIN-I EXPECTED VALUES <0.05 NEGATIVE 0.06 - 0.59 AT RISK OF NE > OR = 0.60 SUGGEST NE Performed By: #### L500.2500, L501.4010 #### [facility] [address] [place], [address] BNP,B-TYPE NATRIURETIC Collected: 12/07/2017 Status: F Source: [place] PEPTIDE 3:50 PM [facility] [place] TYPE CODE TESTS RESULT OUT OF RANGE REFERENCE UNITS LAB L503.6620 0-100 pg/mL High B-TYPE 807.7 HENRY PEP Performed By: #### L503.6620 #### [facility] [address] [place], [address] CHEST 1 VIEW Observed: 12/07/2017 Status: F Source: JI (PORTABLE) 3:38 PM [facility] [place] [facility] Imaging Services [address] [place] [address] Chest 1 View (Portable) MR#: [id number] Acct: [id number] Name: ANTHONY JUNG Raffi Rep #: [id number] : 1960 M 57 From: Maria G Díaz MD PCP: Care Physician, No Primary Status: REG ER Study: Chest 1 View (Portable) Date of Exam: 12/07/17 Exam# [id number] Ordering Dr: Lewis Molina MD STUDY: X-RAY [...] No Primary Care Physician; Lewis Molina MD Cosmetology Educator: Signed ALLERGIES ALLERGIES DATE TYPE / CODE NAME / CODE REACTION SEVERITY SOURCE 09/09/2018 Drug No Known Unknown [facility] Allergy/4160 Allergies/F00 [facility] [address]89(SNOMED 6297736(RXNOR Repository CT) M) ENCOUNTERS ENCOUNTERS ADMIT/DISCHARGE ACCOUNT NUMBER ADMITTING ENCOUNTER LOCATION SOURCE CLASS 09/09/2018 [id number] [facility] Repository 09/07/2018/09/08/20 [id number] Kathi, [facility]patient [facility] [address] [facility] ding:Yulisa Repository : [id number]: 1 09/07/2018 [id number] Kathi Ambulatory [facility]: [facility] Julián BMS.[facility] Repository 09/07/2018 [id number] Kathi Ambulatory BMSBuilding: Ji Julián BMS.[facility] Repository 08/31/2018 [id number] Emergency [address] [place] [address] ERRoom: System [id number]: Repository [id number] 08/31/2018/08/31/20 [id number] Emergency [address] ding:ED Repository 08/27/2018/08/28/20 [id number] Anamika, Inpatient [facility] [address] [facility] ding:PCURoom Repository : VGA339Cew: 1 08/27/2018 [id number] Kotsonis, Ambulatory BMSBuilding: Ji Dell F BMS.[facility] Repository 08/27/2018 [id number] Kotsonis, Ambulatory BMSBuilding: Ji Dell F BMS.[facility] Repository 08/20/2018/08/21/20 [id number] Emergency [address] ding:ED Repository 08/18/2018/08/18/20 [id number] Emergency [address] ding:ED Repository 08/15/2018/08/16/20 [id number] Agyepong, Ambulatory [address] ding:MO7Czea Repository : WP349Xjv: 1 08/15/2018 [id number] Agyepong, Ambulatory BMSBuilding: Ji Marcus BMS.[facility] Repository 08/15/2018 [id number] Agyepong, Ambulatory BMSBuilding: Ji Marcus BMS.[facility] Repository 08/03/2018/08/05/20 [id number] Agyepong, Ambulatory [facility] Ji [address] [place] [address] ding:PCURoom Repository : OAL214Igq: 1 08/03/2018 [id number] Agyepong, Ambulatory BMSBuilding: Ji Marcus BMS.[facility] Repository 08/03/2018 [id number] Agyepong, Ambulatory [facility]Building: [facility] Marcus BMS.[facility] Repository 08/03/2018 [id number] Agyepong, Ambulatory BMSBuilding: Ji Marcus BMS.[facility] Repository 08/03/2018 [id number] Ambulatory BMSBuilding: Ji [facility] Repository 07/28/2018/07/28/20 [id number] Emergency [address] ding:ED Repository 07/20/2018/07/20/20 [id number] Emergency [address] ding:ED Repository 06/16/2018/06/16/20 [id number] Emergency [address] ding:ED Repository 05/09/2018 [id number] Ambulatory BMSBuilding: Ji BMS.[facility] Repository 03/23/2018/03/23/20 [id number] Emergency [address] ding:ED Repository 02/27/2018/02/28/20 [id number] Ambulatory BMSBuilding: [facility] 18 BMS.[facility] Repository 01/23/2018/01/24/20 [id number] Ambulatory BMSBuilding: Ji 18 BMS.[facility] Repository 01/18/2018/01/19/20 [id number] Ambulatory BMSBuilding: Ji 18 BMS.[facility] Repository 01/17/2018/01/19/20 [id number] Emergency [address] ding:ED Repository 01/11/2018 [id number] Ambulatory BMSBuilding: [facility] BMS.CF.[facility] Repository 01/11/2018 [id number] Ambulatory B[facility]Building: [facility] Repository 01/10/2018/01/12/20 [id number] Ambulatory [address] ding:CLSPRoo Repository m: [id number] 01/10/2018 [id number] Ambulatory BMSBuilding: [facility] Repository 01/04/2018 [id number] [facility] ding:LAB Repository 01/04/2018/01/05/20 [id number] Ambulatory BMSBuilding: [facility] 18 BMS.[facility] Repository 12/25/2017 [id number] [facility] ding:CVS Repository 12/25/2017 [id number] Ambulatory BMSBuilding: [facility] Repository 12/20/2017/12/21/19 [id number] Ambulatory BMSBuilding: [facility] 18 BMS.[facility] Repository 12/17/2017/12/19/19 [id number] White, Ambulatory [facility] [address] ding:ICURoom Repository : HUP70Nas: 1 12/17/2017 [id number] White, Ambulatory BMSBuilding: Ji Vaishali BMS.[facility] Repository 12/17/2017 [id number] White, Ambulatory [facility]Building: [facility] Vaishali BMS.[facility] Repository 12/13/2017/12/15/19 [id number] Ambulatory B[facility]Building: [facility] 18 [facility] Repository 12/11/2017 [id number] Ambulatory BMSBuilding: Ji BMS.[facility] Repository 12/11/2017/12/15/19 [id number] Ehnry, Ambulatory [address] ding:ICURoom Repository : HRR87Hvt: 1 12/11/2017 [id number] Henry, Ambulatory B[facility]Building: [facility] Lionel BMS.[facility] Repository 12/11/2017 [id number] Henry, Ambulatory B[facility]Building: [facility] Lionel BMS.[facility] Repository 12/11/2017 [id number] Henry, Ambulatory B[facility]Building: [facility] Lionel BMS.[facility] Repository 12/11/2017 [id number] Henry, Ambulatory BMSBuilding: [facility] Lionel BMS..[facility] Repository 12/11/2017 [id number] Henry, Ambulatory B[facility]Building: [facility] Lionel BMS.[facility] Repository 12/11/2017 [id number] Henry, Ambulatory BMSBuilding: Ji Lionel BMS.[facility] Repository 12/11/2017 [id number] Henry, Ambulatory BMSBuilding: [facility] Lionel BMS..[facility] Repository 12/11/2017 [id number] Henry, Ambulatory B[facility]Building: [facility]el [facility] Repository 12/11/2017 [id number] Henry, Ambulatory BMSBuilding: Ji Lionel BMS.[facility] Repository 12/11/2017 [id number] Henry, Ambulatory BMSBuilding: Ji [place] BMS.[facility] Repository 12/07/2017/12/08/19 [id number] Emergency [facility] [address] [facility] ding:ED Repository PAYERS PAYERS ENCOUNTER GUARANTOR PAYER SUBSCRIBER SOURCE 09/09/2018 ANTHONY Nugent Primary Insurance:BERNADINE [id number] E MEDICARE SENIOR VANDYNEDOB: [facility] [place]: [id number] [id number] Repository 367[address]Ypu: NO Date:7804-58-44VN BOX PHONE () 816705NNISHRN, [place] [address]TI: 09/09/2018 Secondary ANTHONY Workman Insurance:MEDICAIDPolicy VANDYNEDOB: Community Number: [id number] Hospital [id number] Repository Date:2018-09-05 09/09/2018 Tertiary Insurance:SELF NOT GIVENUNK [facility] PAY INSURANCEPolicy Community Number: Effective Hospital Date:2018-09-05 Repository 09/07/2018 ANTHONY Nugent Primary Insurance:BERNADINE Workman [id number] E MEDICARE SENIOR VANDYNEDOB: [facility] Number: [id number], [place] [id number] Repository [address]Sap: NO Date:6624-62-51ZN BOX PHONE () 761843MHDVVJY, [place] [address]TA: 09/07/2018 Secondary ANTHONY Workman Insurance:MEDICAIDPolicy VANDYNEDOB: Community Number: [id number] Hospital [id number] Repository Date:2018-09-07 09/07/2018 Tertiary Insurance:SELF NOT GIVENUNK [facility] PAY INSURANCEPolicy Community Number: Effective Hospital Date:2018-09-07 Repository 09/07/2018 ANTHONY Nugent Primary Insurance:BERNADINE [id number] E MEDICARE SENIOR VANDYNEDOB: [facility] ADVANTAPolicy Number: [id number], [place] [id number] Repository [address]20[address]Lmq: NO Date:5053-97-87MG BOX PHONE ) [id number], [place] [address]TX: 09/07/2018 Secondary ANTHONY Workman Insurance:MEDICAIDPolicy VANDYNEDOB: Community Number: [id number] Hospital [id number] Repository Date:2018-09-07 09/07/2018 Tertiary Insurance:SELF NOT GIVENUNK [facility] PAY INSURANCEPolicy Community Number: Effective Hospital Date:2018-09-07 Repository 09/07/2018 ANTHONY Nugent Primary Insurance:ANTHEM ANTHONY [id number] E MEDICARE SENIOR VANDYNEDOB: [facility] Number: [id number], [place] [id number] Repository [address]Iqf: NO Date:2789-60-81QQ BOX PHONE () 543784KMJMLQY, [place] [address]KP: 09/07/2018 Secondary ANTHONY Workman Insurance:MEDICAIDPolicy VANDYNEDOB: Community Number: [id number] Hospital [id number] Repository Date:2018-09-07 09/07/2018 Tertiary Insurance:SELF NOT GIVENUNK [facility] PAY INSURANCEPolicy Community Number: Effective Hospital Date:2018-09-07 Repository 08/31/2018 Anthony Wayne [facility] DyneDOB: Insurance:Commercial DyneDOB: System E Insurance [id number] [facility] Number: Effective Date: [address]Tyg: () 08/31/2018 Secondary [employer] [facility] Insurance:[place] DyneDOB: System [place] [facility] [id number] Repository Number: Effective Date: 08/31/2018 ANTHONY Nugent Primary Insurance:ANTHEM ANTHONY [id number] E MEDICARE SENIOR VANDYNEDOB: [facility] Number: [id number], [place] [id number] Repository 10[address]Bol: NO Date:6517-78-67TG BOX PHONE () 699738PNEPQPT, [place] [address]DQ: 08/31/2018 Secondary ANTHONY Babcockoster Insurance:MEDICAIDPolicy VANDYNEDOB: Community Number: [id number] Hospital [id number] Repository Date:2018-08-31 08/31/2018 Tertiary Insurance:SELF NOT GIVENUNK Ji PAY INSURANCEPolicy Community Number: Effective Hospital Date:2018-08-31 Repository 08/27/2018 ANTHONY Nugent Primary Insurance:BERNADINE Workman [id number] E MEDICARE SENIOR VANDYNEDOB: Community BRAUN ADVANTAPolicy Number: [id number], [place] [id number] Repository [address]Uvw: NO Date:3457-39-38DN BOX PHONE () 831515CNWZZCP, [place] [address]GX: 08/27/2018 Secondary Insurance:SELF NOT GIVENUNK Ji PAY INSURANCEPolicy Community Number: Effective Hospital Date:2018-08-27 Repository 08/27/2018 ANTHONY Nugent Primary Insurance:BERNADINE Workman [id number] E MEDICARE SENIOR VANDYNEDOB: [facility] Number: [id number], [place] [id number] Repository [address]Bxc: NO Date:4770-76-08ZI BOX PHONE () [id number], [place] [address]DH: 08/27/2018 Secondary Insurance:SELF NOT GIVENUNK [facility] PAY INSURANCEPolicy Community Number: Effective Hospital Date:2018-08-27 Repository 08/27/2018 ANTHONY Nugent Primary Insurance:BERNADINE 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 [id number] E MEDICARE SENIOR VANDYNEDOB: [facility] BRAUN ADVANTAPolicy Number: [id number], [place] [id number] Repository 875[address]Pro: NO Date:2223-89-69LD BOX PHONE () [id number], [place] [address]HS: 08/27/2018 Secondary ANTHONY Babcockoster Insurance:MEDICAIDPolicy VANDYNEDOB: Community Number: [id number] Hospital [id number] Repository Date:2018-08-27 08/27/2018 Tertiary Insurance:SELF NOT GIVENUNK Ji PAY INSURANCEPolicy Community Number: Effective Hospital Date:2018-08-27 Repository 08/20/2018 ANTHONY Nugent Primary Insurance:BERNADINE Workman [id number] HIGH MEDICARE SENIOR VANDYNEDOB: [place] ADVANTAPolicy Number: [id number] Hospital [address]56[address]Ked: NO [id number] Repository PHONE () Date:9438-78-60LY [address] [place] [address]LC: 08/20/2018 Secondary Insurance:SELF NOT GIVENUNK Ji PAY INSURANCEPolicy Community Number: Effective Hospital Date:2018-08-20 Repository 08/18/2018 ANTHONY Nugent Primary Insurance:BERNADINE Workman [id number] HIGH MEDICARE SENIOR VANDYNEDOB: [place] ADVANTAPolicy Number: [id number] Hospital [address]Hxj: NO [id number] Repository PHONE (HP) Date:3553-44-31DP [address] [place] [address]EH: 08/18/2018 Secondary Insurance:SELF NOT GIVENUNK Ji PAY INSURANCEPolicy Community Number: Effective Hospital Date:2018-08-18 Repository 08/15/2018 ANTHONY Nugent Primary Insurance:BERNADINE Babcockoster [id number] HIGH MEDICARE SENIOR VANDYNEDOB: [place] ADVANTAPolicy Number: [id number] Hospital [address]Grr: NO [id number] Repository PHONE (HP) Date:2257-88-83KL [address] [place] [address] 19[address]IN: 08/15/2018 Secondary Insurance:SELF NOT GIVENUNK Ji PAY INSURANCEPolicy Community Number: Effective Hospital Date:2018-08-15 Repository 08/15/2018 ANTHONY Nugent Primary Insurance:BERNADINE Workman [id number] HIGH MEDICARE SENIOR VANDYNEDOB: [place] ADVANTAPolicy Number: [id number] Hospital [address]Eoi: NO [id number] Repository PHONE (HP) Date:2476-12-52FV [address] [place] [address]LD: 08/15/2018 Secondary Insurance:SELF NOT GIVENUNK [facility] PAY INSURANCEPolicy Community Number: Effective Hospital Date:2018-08-15 Repository 08/15/2018 ANTHONY Nugent Primary Insurance:BERNADINE Babcockoster [id number] HIGH MEDICARE SENIOR VANDYNEDOB: [place] ADVANTAPolicy Number: [id number] Hospital 18[address]Qws: (330) [id number] Repository [phone] () Date:8517-84-02XH [address] [place] [address] 00499AA: 08/15/2018 Secondary Insurance:SELF NOT GIVENUNK Ji PAY INSURANCEPolicy Community Number: Effective Hospital Date:2018-08-15 Repository 08/03/2018 ANTHONY Nugent Primary Insurance:BERNADINE Workman [id number] E MEDICARE SENIOR VANDYNEDOB: [facility] BRAUN ADVANTAPolicy [place]: [id number] [id number] Repository 464[address]Vns: (330) Date:7266-51-81UJ [phone] () [address] [place] [address] 36124PY: 08/03/2018 Secondary Insurance:SELF NOT GIVENUNK [facility] PAY INSURANCEPolicy Community Number: Effective Hospital Date:2018-08-03 Repository 08/03/2018 ANTHONY Nugent Primary Insurance:BERNADINE Babcockoster [id number] E MEDICARE SENIOR VANDYNEDOB: [facility] ADVANTAPolicy Number: [id number] [id number] Repository 61195Ans: (330) Date:2758-64-16VF [phone] () [address] [place] [address] 06989VG: 08/03/2018 Secondary Insurance:SELF NOT GIVENUNK [facility] PAY INSURANCEPolicy Community Number: Effective Hospital Date:2018-08-03 Repository 08/03/2018 ANTHONY Nugent Primary Insurance:BERNADINE Babcockoster [id number] E MEDICARE SENIOR VANDYNEDOB: [facility] ADVANTAPolicy Number: [id number] [id number] Repository 67372Mfk: (330) Date:6338-00-44JW [phone] () [address] [place] [address] 95567EO: 08/03/2018 Secondary Insurance:SELF NOT GIVENUNK Ji PAY INSURANCEPolicy Community Number: Effective Hospital Date:2018-08-03 Repository 08/03/2018 ANTHONY Nugent Primary Insurance:BERNADINE Babcockoster [id number] E MEDICARE SENIOR VANDYNEDOB: [facility] Number: [id number] [id number] Repository 485[address]Hcm: (330) Date:7409-00-56SG [phone] () [id number] [place] [address] 07906JX: 08/03/2018 Secondary Insurance:SELF NOT GIVENUNK [facility] PAY INSURANCEPolicy Community Number: Effective Hospital Date:2018-08-03 Repository 08/03/2018 ANTHONY Nugent Primary Insurance:BERNADINE Workman [id number] HIGH MEDICARE SENIOR VANDYNEDOB: [place] ADVANTAPolicy Number: [id number] Hospital 68741Yse: NO [id number] Repository PHONE (HP) Date:9907-35-76VY [id number] [place] [address] 05236KM: 08/03/2018 Secondary Insurance:SELF NOT GIVENUNK [facility] PAY INSURANCEPolicy Community Number: Effective Hospital Date:2018-08-03 Repository 07/28/2018 ANTHONY Nugent Primary Insurance:BERNADINE Babcockoster [id number] E MEDICARE SENIOR VANDYNEDOB: [facility] ADVANTAPolicy Number: [id number], [place] [id number] Repository 41038Dlx: (330) Date:6866-43-37BU [phone] () 6765[address]ENSJAAG, [place] [address]BU: 07/28/2018 Secondary Insurance:SELF NOT GIVENUNK [facility] PAY INSURANCEPolicy Community Number: Effective Hospital Date:2018-07-28 Repository 07/20/2018 ANTHONY Nugent Primary Insurance:ANTHEM ANTHONY Workman [id number] E MEDICARE SENIOR VANDYNEDOB: [facility] ADVANTAPoly Number: [id number], [place] [id number] Repository 18764Kro: (330) Date:9702-44-16EI [phone] () 399[address]NHTYSBS, [place] [address]XT: 07/20/2018 Secondary Insurance:SELF NOT GIVENUNK Ji PAY INSURANCEPolicy Community Number: Effective Hospital Date:2018-07-20 Repository 06/16/2018 ANTHONY Nugent Primary ANTHONY Workman [id number] E Insurance:MEDICARE PART A VANDYNEDOB: [employer] [facility] Number: [id number], [place] [id number] Repository 24413Gin: (330) Date:2018-06-16 [phone] () 06/16/2018 Secondary ANTHONY Workman Insurance:MEDICAIDPolicy VANDYNEDOB: Community Number: [id number] Hospital [id number] Repository Date:2018-06-16 06/16/2018 Tertiary Insurance:SELF NOT GIVENUNK Ji PAY INSURANCEPolicy Community Number: Effective Hospital Date:2018-06-16 Repository 05/09/2018 ANTHONY Nugent VAN Primary ANTHONY Nugent VAN Ji [id number] Insurance:CARESOURCEPolic DYNEDOB: [facility] Number: [id number] [facility] [id number] [place] [address]Xpg: / Date:2017-12-17 [address] () 7167ATTN: [place] [address]OH: 05/09/2018 Secondary Insurance:SELF NOT GIVENUNK [facility] PAY INSURANCEPolicy Community Number: Effective Hospital Date:2018-01-03 Repository 03/23/2018 ANTHONY Savage Insurance:AETNA ANTHONY Magdaleno [id number] MCRPolicy Number: DYNEDOB: [facility] [id number] [id number], Date:7372-28-50GB BOX Repository [place] [address]Naq: / [id number] GORDO MURRY () [address]IB: 03/23/2018 Secondary Insurance:SELF NOT GIVENUNK [facility] PAY INSURANCEPolicy Community Number: Effective Hospital Date:2018-03-23 Repository 02/27/2018 ANTHONY Magdaleno [id number] Insurance:CARESOURCEPolic DYNEDOB: [facility] y Number: [id number], [id number] [place]ository [place] [address]Zzy: Date:2018-01-18P [address]ATTN: CLAIMS () [place] [address]IZ: 02/27/2018 Secondary Insurance:SELF NOT GIVENUNK [facility] PAY INSURANCEPolicy Community Number: Effective Hospital Date:2018-02-27 Repository 01/23/2018 ANTHONY Magdaleno [id number] Insurance:CARESOURCEPolic DYNEDOB: [facility] y Number: [id number], [id number] Repository [place] [address]Sck: Date:2018-01-23P [address]ATTN: CLAIMS () [place] [address]TT: 01/23/2018 Secondary Insurance:SELF NOT GIVENUNK Ji PAY INSURANCEPolicy Community Number: Effective Hospital Date:2018-01-23 Repository 01/18/2018 ANTHONY Magdaleno [id number] Insurance:CARESOURCEPolic DYNEDOB: [facility] y Number: [id number] [id number] Repository [place] [address]Roo: Date:2017-12-17 [address]ATTN: CLAIMS (HP) [place] [address]RC: 01/18/2018 Secondary Insurance:SELF NOT GIVENUNK [facility] PAY INSURANCEPolicy Community Number: Effective Hospital Date:2018-01-18 Repository 01/17/2018 ANTHONY Magdaleno [id number] TR Insurance:CARESOURCEPolic DYNEDOB: [address], y Number: [id number]-[facility] [address]Baq: [id number] Repository Date:2018-01-17 [address] BOX (RI) 2930ATTN: [place] [address]IU: 01/17/2018 Secondary Insurance:SELF NOT GIVENUNK Ji PAY INSURANCEPolicy Community Number: Effective Hospital Date:2018-01-17 Repository 01/11/2018 ANTHONY Magdaleno [id number] TR Insurance:CARESOURCEPolic DYNEDOB: [address], y Number: [id number]-[facility] [address]Yoh: [id number] Repository Date:2018-01-03 [address]OX (AN) 6894ATTN: [place] [address]YD: 01/11/2018 Secondary Insurance:SELF NOT GIVENUNK Ji PAY INSURANCEPolicy Community Number: Effective Hospital Date:2018-01-11 Repository 01/11/2018 ANTHONY Magdaleno [id number] Insurance:CARESOURCEPolic DYNEDOB: [facility] y Number: [id number], [id number] Repository [place] [address]Ict: Date:2018-01-03 [address]ATTN: CLAIMS (HP) [place] [address]WI: 01/11/2018 Secondary Insurance:SELF NOT GIVENUNK [facility] PAY INSURANCEPolicy Community Number: Effective Hospital Date:2018-01-11 Repository 01/10/2018 ANTHONY Magdaleno [id number] TR Insurance:CARESOURCEPolic DYNEDOB: Community [address] [place] [address], y Number: [id number]-[facility] [address]Zwt: [id number] Repository Date:2018-01-03 [address] () 8812ATTN: [place] [address]YV: 01/10/2018 Secondary Insurance:SELF NOT GIVENUNK [facility] PAY INSURANCEPolicy Community Number: Effective Hospital Date:2018-01-03 Repository 01/10/2018 ANTHONY Magdaleno [id number] TR Insurance:CARESOURCEPolic DYNEDOB: Community [address] [place] [address], y Number: [id number]-Lea [facility] [address]Emr: [id number] Repository Date:2018-01-03P [address] BOX (HP) 7615ATTN: [place] [address]QW: 01/10/2018 Secondary Insurance:SELF NOT GIVENUNK Ji PAY INSURANCEPolicy Community Number: Effective Hospital Date:2018-01-10 Repository 01/04/2018 ANTHONY Magdaleno [id number] TR Insurance:CARESOURCEPolic DYNEDOB: Community [address] [place] [address], y Number: [id number]-[facility] [address]Set: [id number] Repository Date:2018-01-04P [address] BOX (HP) 2417ATTN: [place] [address]CJ: 01/04/2018 Secondary Insurance:SELF NOT GIVENUNK [facility] PAY INSURANCEPolicy Community Number: Effective Hospital Date:2018-01-04 Repository 01/04/2018 ANTHONY Magdaleno [id number] TR Insurance:CARESOURCEPolic DYNEDOB: Community [address] [place] [address], y Number: [id number]-[facility] [address]Xib: [id number] Repository Date:2018-01-04P [address] BOX (HW) 2074ATTN: [place] [address]CG: 01/04/2018 Secondary Insurance:SELF NOT GIVENUNK Ji PAY INSURANCEPolicy Community Number: Effective Hospital Date:2018-01-04 Repository 12/25/2017 ANTHONY Magdaleno [id number] TR Insurance:CARESOURCEPolic DYNEDOB: Community [address] [place] [address], y Number: [id number]-Lea [facility] Hospital [address]Xbj: [id number] Repository Date:2017-12-20P O BOX (HP) 0599ATTN: CLAIMS [facility] [place] [address]BV: 12/25/2017 Secondary Insurance:SELF NOT GIVENUNK Ji PAY INSURANCEPolicy Community Number: Effective Hospital Date:2017-12-20 Repository 12/25/2017 ANTHONY Magdaleno [id number] Insurance:CARESOURCEPolic DYNEDOB: [facility] y Number: [id number], [id number] [place] [address]Ggp: Date:2017-12-20P [address]ATTN: CLAIMS (HP) [place] [address]QR: 12/25/2017 Secondary Insurance:SELF NOT GIVENUNK Ji PAY INSURANCEPolicy Community Number: Effective Hospital Date:2017-12-25 Repository 12/20/2017 ANTHONY Magdaleno [id number] TR Insurance:CARESOURCEPolic DYNEDOB: [address], y Number: [id number]-Lea General Hospital [address]Vsl: [id number] Repository Date:2017-12-17P O BOX (CR) 9518ATTN: [place] [address]XH: 12/20/2017 Secondary Insurance:SELF NOT GIVENUNK [facility] PAY INSURANCEPolicy Community Number: Effective Hospital Date:2017-12-20 Repository 12/17/2017 ANTHONY Magdaleno [id number] TR Insurance:CARESOURCEPolic DYNEDOB: Community [address] [place] [address], y Number: [id number]-Lea [facility] Hospital [address]Xty: [id number] Repository Date:2017-12-16P O BOX (HP) 9372ATTN: [place] [address]LT: 12/17/2017 Secondary Insurance:SELF NOT GIVENUNK Ji PAY INSURANCEPolicy Community Number: Effective Hospital Date:2017-12-16 Repository 12/17/2017 ANTHONY Magdaleno [id number] TR Insurance:CARESOURCEPolic DYNEDOB: [address], y Number: [id number]-Lea [facility] Hospital [address]Uoq: [id number] Repository Date:2017-12-17P O BOX (HP) 7017ATTN: [place] [address]TU: 12/17/2017 Secondary Insurance:SELF NOT GIVENUNK Ji PAY INSURANCEPolicy Community Number: Effective Hospital Date:2017-12-17 Repository 12/17/2017 ANTHONY Magdaleno [id number] TR Insurance:CARESOURCEPolic DYNEDOB: [address], y Number: [id number]-Lea General Hospital [address]Hap: [id number] Repository Date:2017-12-17P O BOX (HP) 8223ATTN: [place] [address]DI: 12/17/2017 Secondary Insurance:SELF NOT GIVENUNK [facility] PAY INSURANCEPolicy Community Number: Effective Hospital Date:2017-12-17 Repository 12/13/2017 ANTHONY Magdaleno [id number] Insurance:CARESOURCEPolic DYNEDOB: [facility] y Number: [id number], [id number] Repository [place] [address]Eut: Date:2017-12-10 [address]ATTN: CLAIMS () [place] [address]PC: 12/13/2017 Secondary Insurance:SELF NOT GIVENUNK [facility] PAY INSURANCEPolicy Community Number: Effective Hospital Date:2017-12-13 Repository 12/11/2017 ANTHONY Magdaleno [id number] TR Insurance:CARESOURCEPolic DYNEDOB: Community [address] [place] [address], y Number: [id number]-[facility] [address]Vgi: [id number] Repository Date:2017-12-17 O BOX (JN) 0945ATTN: [place] [address]MA: 12/11/2017 Secondary Insurance:SELF NOT GIVENUNK [facility] PAY INSURANCEPolicy Community Number: Effective Hospital Date:2017-12-11 Repository 12/11/2017 ANTHONY Workman [id number] E Insurance:CARESOURCEPolic VANDYNEDOB: Community [employer]STR[employer]ER y Number: [id number], [place] [id number] Repository [address]Opg: NO Date:2017-12-10 O BOX PHONE ) 7769ATTN: [place] [address]BB: 12/11/2017 Secondary Insurance:SELF NOT GIVENUNK Ji PAY INSURANCEPolicy Community Number: Effective Hospital Date:2017-12-10 Repository 12/11/2017 ANTHONY Magdaleno [id number] TR Insurance:CARESOURCEPolic DYNEDOB: Community [address] [place] [address], y Number: [id number]-Lea [facility] Hospital [address]Vcr: [id number] Repository Date:2017-12-17 O BOX (HC) 9032ATTN: [place] [address]VT: 12/11/2017 Secondary Insurance:SELF NOT GIVENUNK [facility] PAY INSURANCEPolicy Community Number: Effective Hospital Date:2017-12-11 Repository 12/11/2017 ANTHONY Magdaleno [id number] TR Insurance:CARESOURCEPolic DYNEDOB: Community [address] [place] [address], y Number: [id number]-Lea [facility] Hospital [address]Aew: [id number] Repository Date:2017-12-17 O BOX () 1203ATTN: [place] [address]BZ: 12/11/2017 Secondary Insurance:SELF NOT GIVENUNK [facility] PAY INSURANCEPolicy Community Number: Effective Hospital Date:2017-12-11 Repository 12/11/2017 ANTHONY Magdaleno [id number] TR Insurance:CARESOURCEPolic DYNEDOB: Community [address] [place] [address], y Number: [id number]-[facility] [address]Wwd: [id number] Repository Date:2017-12-17 O BOX () 2092ATTN: [place] [address]FZ: 12/11/2017 Secondary Insurance:SELF NOT GIVENUNK Ji PAY INSURANCEPolicy Community Number: Effective Hospital Date:2017-12-11 Repository 12/11/2017 ANTHONY Magdaleno [id number] TR Insurance:CARESOURCEPolic DYNEDOB: Community [address] [place] [address], y Number: [id number]-Lea [facility] Hospital [address]Ngp: [id number] Repository Date:2017-12-17 O BOX () 9061ATTN: [place] [address]YM: 12/11/2017 Secondary Insurance:SELF NOT GIVENUNK [facility] PAY INSURANCEPolicy Community Number: Effective Hospital Date:2017-12-11 Repository 12/11/2017 ANTHONY Magdaleno [id number] TR Insurance:CARESOURCEPolic DYNEDOB: Community [address] [place] [address], y Number: [id number]-Lea [facility] Hospital [address]86[address]Mvy: [id number] Repository Date:2017-12-17 O BOX (HP) 5717ATTN: [place] [address]NC: 12/11/2017 Secondary Insurance:SELF NOT GIVENUNK Ji PAY INSURANCEPolicy Community Number: Effective Hospital Date:2017-12-11 Repository 12/11/2017 ANTHONY Magdaleno [id number] TR Insurance:CARESOURCEPolic DYNEDOB: Community [address] [place] [address], y Number: [id number]-Lea [facility] Hospital [address]Vfx: [id number] Repository Date:2017-12-17P O BOX (HP) 3098ATTN: [place] [address]KQ: 12/11/2017 Secondary Insurance:SELF NOT GIVENUNK Ji PAY INSURANCEPolicy Community Number: Effective Hospital Date:2017-12-11 Repository 12/11/2017 ANTHONY Magdaleno [id number] TR Insurance:CARESOURCEPolic DYNEDOB: Community [address] [place] [address], y Number: [id number]-Lea [facility] Hospital [address]Ftm: [id number] Repository Date:2017-12-17 O BOX (HP) 0362ATTN: [place] [address]UZ: 12/11/2017 Secondary Insurance:SELF NOT GIVENUNK [facility] PAY INSURANCEPolicy Community Number: Effective Hospital Date:2017-12-11 Repository 12/11/2017 ANTHONY Magdaleno [id number] TR Insurance:CARESOURCEPolic DYNEDOB: Community [address] [place] [address], y Number: [id number]-Lea General Hospital [address]Dzz: [id number] Repository Date:2017-12-17P O BOX (HP) 6058ATTN: [place] [address]WV: 12/11/2017 Secondary Insurance:SELF NOT GIVENUNK [facility] PAY INSURANCEPolicy Community Number: Effective Hospital Date:2017-12-11 Repository 12/11/2017 ANTHONY Magdaleno [id number] TR Insurance:CARESOURCEPolic DYNEDOB: Community [address] [place] [address], y Number: [id number]-[facility]a [facility] [address]Vow: [id number] Repository Date:2017-12-17P O BOX (HP) 4189ATTN: [place] [address]EV: 12/11/2017 Secondary Insurance:SELF NOT GIVENUNK Ji PAY INSURANCEPolicy Community Number: Effective Hospital Date:2017-12-11 Repository 12/11/2017 ANTHONY Magdaleno [id number] TR Insurance:CARESOURCEPolic DYNEDOB: Community [address] [place] [address], y Number: [id number]-Lea General Hospital [address]Ugh: [id number] Repository Date:2017-12-17P O BOX () 0398ATTN: [place] [address]OY: 12/11/2017 Secondary Insurance:SELF NOT GIVENUNK Ji PAY INSURANCEPolicy Community Number: Effective Hospital Date:2017-12-11 Repository 12/07/2017 ANTHONY Magdaleno [id number] TR Insurance:CARESOURCEPolic DYNEDOB: Community [address] [place] [address], y Number: [id number]-[facility]a [facility] [address]Gqw: [id number] Repository Date:2017-12-07P O BOX () 9294ATTN: [place] [address]FI: 12/07/2017 Secondary Insurance:SELF NOT GIVENUNK [facility] PAY INSURANCEPolicy Community Number: Effective Hospital Date:2017-12-07 Repository
== END 2018-08-31 05:53 | disposition short-term general hospital (02) ==
PROVIDERS: Emergency Provider Emergency Medicine; Family Provider Nurse Practitioner Family; PCP Nurse Practitioner Family
DX: S06.9X9A Unspecified intracranial injury with loss of consciousness of unspecified duration, initial encounter (principal); S29.9XXA Unspecified injury of thorax, initial encounter; S49.91XA Unspecified injury of right shoulder and upper arm, initial encounter; S49.92XA Unspecified injury of left shoulder and upper arm, initial encounter; S19.9XXA Unspecified injury of neck, initial encounter; S80.811A Abrasion, right lower leg, initial encounter; S30.1XXA Contusion of abdominal wall, initial encounter; R40.2410 Glasgow coma scale score 13-15, unspecified time; V47.5XXA Car driver injured in collision with fixed or stationary object in traffic accident, initial encounter; Y93.9 Activity, unspecified; Y92.9 Unspecified place or not applicable; J32.9 Chronic sinusitis, unspecified; I51.7 Cardiomegaly; I25.10 Atherosclerotic heart disease of native coronary artery without angina pectoris; J44.9 Chronic obstructive pulmonary disease, unspecified; D50.9 Iron deficiency anemia, unspecified; I25.5 Ischemic cardiomyopathy; I47.2 Ventricular tachycardia; Z95.5 Presence of coronary angioplasty implant and graft; Z95.810 Presence of automatic (implantable) cardiac defibrillator; Z79.82 Long term (current) use of aspirin; Z79.899 Other long term (current) drug therapy; F17.200 Nicotine dependence, unspecified, uncomplicated
CPT/HCPCS: 70450; 71045; 72125; 72170; 80053; 80320; 84484; 85025; 85610; 85730; 96361; 96374; 96375; 99285; J7030; A4216; G0480

== ENCOUNTER 2018-09-07 05:06 | Inpatient (IN) | payer MEDICARE, MEDICAID, SELFPAY ==
[2018-09-07] VITALS (17 sets, daily range): BP systolic 124–148; BP diastolic 79–101; PULSE 81–104; RESP 18–27; TEMP 36.3–36.8; O2SAT 95–100; BMI 22.0; BMI 23.3; BMI 23.4
--- NOTE | 2018-09-07 05:19 | EKG12_ITS ---
Test Reason : SOB Blood Pressure : / mmHG Vent. Rate : 100 BPM Atrial Rate : 100 BPM P-R Int : 200 ms QRS Dur : 100 ms QT Int : 386 ms P-R-T Axes : 085 -64 110 degrees QTc Int : 497 ms Normal sinus rhythm Possible Left atrial enlargement Left axis deviation Septal infarct , age undetermined ST & T wave abnormality, consider lateral ischemia Abnormal ECG Confirmed by HIRA OLSEN MD ([id number]), news video editor AMADOR EDMONDS ([id number]) on 09/09/2018 1:50:57 PM Referred By: MARIFER Confirmed By:HIRA OLSEN MD
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
[2018-09-07 05:33] LABS: Absolute Lymphocyte Count 1.18 X10^3/ul (0.83-4.51); Absolute Neutrophil Count 3.9 X10^3/uL (2.0-7.7); Basophil# 0.05 X10^3/uL; Basophil% 0.9 % (0-1); Eosinophil# 0.08 X10^3/uL; Eosinophils% 1.5 % (0-5); Hematocrit 35.6 % (40-54); Hemoglobin 11.6 g/dl (13.0-16.5); Lymphocyte # 1.18 X10^3/ul (4.0); Lymphocyte % 21.6 % (19-41); Mean Corp Hgb Conc 32.6 g/gl (32-36); Mean Corpuscular Hgb 29.8 pg (27.0-32.0); Mean Corpuscular Volume 91.5 fL (80-94); Mean Platelet Vol. 9.3 fl (6.2-12.0); Monocyte# 0.27 X10^3/uL; Monocyte% 4.9 % (0-10); Neutrophil # 3.87 X10^3/uL (2.7-7.7); Neutrophil % 70.9 % (47-70); Platelet Count 211 K/mm3 (150-450); RBC Distribution Width CV 15.1 % (11.6-14.6); RBC Distribution Width SD 49.6 fl (35.1-43.9); Red Blood Count 3.89 M/mm3 (4.6-6.2); White Blood Count 5.5 K/mm3 (4.4-11.0)
[2018-09-07] MEDS: Ipratropium/Albuterol Sulfate 3 ML AMPUL.NEB INHALATION ×3 (05:33→19:57)
[2018-09-07] MEDS: Albuterol 2.5 MG/3 ML VIAL.NEB. INHALATION ×3 (05:33→05:43)
[2018-09-07 05:34] LABS: POSITIVE COUNT NO; POSITIVE DIFFERENTIAL NO; POSITIVE MORPHOLOGY NO
[2018-09-07 05:50] LABS: Anion Gap 10 (5-15); BUN 19 mg/dL (7-18); BUN/Creat Ratio 22.2 RATIO (10-20); Calcium,Total 8.5 mg/dL (8.5-10.1); Chloride 104 mmol/L (98-107); Creatinine, Serum 0.85 mg/dL (0.70-1.30); EST Glomerular Filtration Rate 97 mL/min (>60); Est Glom Filt Rate - Afr Amer 118 mL/min (>60); Estimated Creatinine Clearance 87.05 ml/min; Glucose 85 mg/dL (74-106); Potassium 4.5 mmol/L (3.5-5.1); Sodium Level 138 mmol/L (136-145)
--- NOTE | 2018-09-07 05:58 | CPS ---
patient refused 3rd albuterol about 3/4 done.
[2018-09-07 06:00] LABS: BNP,B-Type NATRIURETIC PEPTIDE 2671.9 pg/mL (0-100)
--- NOTE | 2018-09-07 06:07 | RAD_ITS ---
STUDY: X-RAY CHEST REASON FOR EXAM: Male, 57 years old. Shortness of breath. TECHNIQUE: PA and lateral views of the chest. COMPARISON: August 31, 2018 FINDINGS: Patient has a left-sided intracardiac pacemaker. There is hyperinflation of the lungs consistent with chronic obstructive lung disease (COPD). There is suggestion for heterogeneous right-sided airspace consolidation and atelectasis possibly representing pneumonia. There is no demonstrated pleural abnormality. There is mild cardiac enlargement. Normal mediastinum and alberto. There is prominence of the pulmonary hilar arteries without peripheral pulmonary vascular congestion. Normal visualized aortic arch and descending thoracic aorta. There is demineralization of the osseous structures. Normal visualized ribs, clavicles, and shoulders. There is no demonstrated abnormality of the visualized soft tissue structures of the upper abdomen. RAD/Chest PA and Lateral IMPRESSION: 1. Cardiomegaly, COPD and mild pulmonary congestion. 2. Heterogeneous right-sided airspace consolidation possibly representing pneumonia. Electronically Signed: Sarah Sarabia MD at 6:30 EST , Service support ,
[2018-09-07] MEDS: MethylPREDNISolone 125 MG/2 ML Vial IV (06:17)
[2018-09-07] MEDS: levoFLOXacin IV 750 MG/150 ML BAG 100 MG IV (07:07)
[2018-09-07] MEDS: Ferrous Gluconate 324 MG Tablet PO ×2 (09:22→18:18)
[2018-09-07] MEDS: Aspirin 81 MG TAB.CHEW PO (09:22)
[2018-09-07] MEDS: Losartan Potassium 25 MG Tablet PO (09:23)
[2018-09-07] MEDS: Clopidogrel Bisulfate 75 MG Tablet PO (09:23)
[2018-09-07] MEDS: Carvedilol 6.25 MG Tablet PO ×2 (09:23→21:04)
--- NOTE | 2018-09-07 11:23 | PCM.HP.STD ---
Problem List (1) Elevated troponin Status: Chronic (2) ICD (implantable cardioverter-defibrillator) in place Status: Chronic (3) History of coronary artery stent placement Status: Chronic Comment: PCI-RCA and CX (4) Atherosclerosis of coronary artery of [place] heart without angina pectoris Status: Chronic Comment: LEFT HEART ASSESSMENT Left Ventricular Ejection Fraction: by LV Gram 10-15 % Global Hypokinesis - Severe Depressed Left Ventricular systolic function Normal Left Ventricular End Diastolic Pressure LEFT MAIN: Non-obstructive LEFT ANTERIOR DECENDING ARTERY: Previously placed stent is patent DIAGONAL 1: Ostial - Mild luminal irregularities less than 30% DIAGONAL 2: Proximal - Non-obstructive CIRCUMFLEX ARTERY: MID CIRC: Previously placed stent is patent RIGHT CORONARY ARTERY: MID RCA: Previously placed stent has instent 20 % restenosis with a new at distal edge of stent (5) COPD exacerbation Status: Resolved Comment: Recent discharge 12/14/17 following treatment for acute on chronic systolic CHF exacerbation, acute COPD exacerbation with acute hypoxic respiratory failure and MRSA HCAP PNA. (6) Acute respiratory failure with hypoxemia Status: Acute (7) Iron deficiency anemia Status: Chronic Qualifiers: (8) NSVT (nonsustained ventricular tachycardia) Status: Resolved (9) COPD (chronic obstructive pulmonary disease) Status: Chronic Qualifiers: (10) Tobacco abuse Status: Chronic (11) Medical non-compliance Status: Chronic (12) Ischemic cardiomyopathy Status: Chronic History of Present Illness Date of Admission: 09/07/18 Chief Complaint: Shortness of breath. The patient is a 57 year old M who presents emergency room due to increased shortness of breath. Patient states this is been ongoing for a few weeks. He reports associated cough with yellow/green sputum. Denies fever, chills. Daughter at bedside states patient has had recurrent admissions and continues to smoke heavily. Daughter reports patient is noncompliant with medications. Patient states he feels like he needs oxygen to go home with. He has not qualified for oxygen during previous admissions. He has a past medical history of CAD status post PCI, ischemic cardiomyopathy/chronic systolic CHF, COPD, status post ICD, iron deficiency anemia, tobacco dependence. Patient follows with Dr. Mak, Cardiology and Dr. Ahmadi, Pulmonary Medicine. Past Medical History Past Medical History (Chronic Problems): Chronic Problems (Last Updated 08/16/18 @ 09:53 by Justin Zamarripa DO) Elevated troponin (Chronic) ICD (implantable cardioverter-defibrillator) in place (Chronic) History of coronary artery stent placement (Chronic) PCI-RCA and CX Atherosclerosis of coronary artery of [place] heart without angina pectoris (Chronic) LEFT HEART ASSESSMENT Left Ventricular Ejection Fraction: by LV Gram 10-15 % Global Hypokinesis - Severe Depressed Left Ventricular systolic function Normal Left Ventricular End Diastolic Pressure LEFT MAIN: Non-obstructive LEFT ANTERIOR DECENDING ARTERY: Previously placed stent is patent DIAGONAL 1: Ostial - Mild luminal irregularities less than 30% DIAGONAL 2: Proximal - Non-obstructive CIRCUMFLEX ARTERY: MID CIRC: Previously placed stent is patent RIGHT CORONARY ARTERY: MID RCA: Previously placed stent has instent 20 % restenosis with a new at distal edge of stent Iron deficiency anemia (Chronic) COPD (chronic obstructive pulmonary disease) (Chronic) Tobacco abuse (Chronic) Medical non-compliance (Chronic) Ischemic cardiomyopathy (Chronic) Medical History: Medical History (Last Updated 08/16/18 @ 09:53 by Justin Zamarripa DO) Atherosclerosis of coronary artery of [place] without angina pectoris (Chronic) I25.10 LEFT HEART ASSESSMENT Left Ventricular Ejection Fraction: by LV Gram 10-15 % Global Hypokinesis - Severe Depressed Left Ventricular systolic function Normal Left Ventricular End Diastolic Pressure LEFT MAIN: Non-obstructive LEFT ANTERIOR DECENDING ARTERY: Previously placed stent is patent DIAGONAL 1: Ostial - Mild luminal irregularities less than 30% DIAGONAL 2: Proximal - Non-obstructive CIRCUMFLEX ARTERY: MID CIRC: Previously placed stent is patent RIGHT CORONARY ARTERY: MID RCA: Previously placed stent has instent 20 % restenosis with a new at distal edge of stent Acute respiratory failure with hypoxemia (Acute) J96.01 Iron deficiency anemia (Chronic) D50.9 COPD (chronic obstructive pulmonary disease) (Chronic) J44.9 Tobacco abuse (Chronic) Z72.0 Medical non-compliance (Chronic) Z91.19 Ischemic cardiomyopathy (Chronic) I25.5 Acute on chronic systolic (congestive) heart failure I50.23 Restless leg syndrome G25.81 Acute bronchitis (Resolved) J20.9 COPD exacerbation (Resolved) J44.1 Recent discharge 12/14/17 following treatment for acute on chronic systolic CHF exacerbation, acute COPD exacerbation with acute hypoxic respiratory failure and MRSA HCAP PNA. HCAP (healthcare-associated pneumonia) (Resolved) J18.9 Recent discharge 12/14/17 following treatment for acute on chronic systolic CHF exacerbation, acute COPD exacerbation with acute hypoxic respiratory failure and MRSA HCAP PNA. Hypotension (Resolved) I95.9 MRSA (methicillin resistant Staphylococcus aureus) infection (Resolved) A49.02 Recent discharge 12/14/17 following treatment for acute on chronic systolic CHF exacerbation, acute COPD exacerbation with acute hypoxic respiratory failure and MRSA HCAP PNA. NSVT (nonsustained ventricular tachycardia) (Resolved) I47.2 Near syncope (Resolved) R55 Elevated troponin (Inactive) R74.8 Allergies No Known Allergies Allergy (Verified 08/27/18 04:20) Home Medications: Ambulatory Orders Medication Instructions Recorded Nitroglycerin [Nitrostat] 0.4 mg SUBLINGUAL Q5M PRN #1 bottle 12/14/17 aspirin 81 mg chewable tablet 81 mg PO DAILY@0800 #30 tab.chew 01/11/18 atorvastatin 80 mg tablet 80 mg PO QHS #30 tab 01/11/18 carvedilol 6.25 mg tablet 6.25 mg PO BID #60 tab 01/11/18 clopidogrel 75 mg tablet 75 mg PO DAILY #30 tab 01/11/18 furosemide 40 mg tablet 40 mg PO DAILY #30 tab 01/11/18 isosorbide mononitrate ER 30 mg 30 mg PO DAILY #30 tab 01/11/18 tablet,extended release 24 hr losartan 25 mg tablet 25 mg PO DAILY #30 tab 01/11/18 potassium chloride ER 20 mEq 20 meq PO DAILY #30 tab 01/11/18 tablet,extended release(part/cryst) ferrous gluconate 324 mg (37.5 mg 325 mg PO BIDCM #60 tab 01/15/18 iron) tablet Acetaminophen [Tylenol Tablet] 650 mg PO Q6H PRN PRN tablet 08/05/18 Albuterol Sulfate [Ventolin Hfa] 18 gm IH [id number] PRN #1 08/05/18 [id number] Ascorbic Acid [Vitamin C] 500 mg PO BIDCM 08/27/18 Gabapentin [Neurontin] 600 mg PO QHS 08/27/18 Surgical History: Surgical History (Last Reviewed 09/07/18 @ 12:56 by Aline Carolina NP-C) ICD (implantable cardioverter-defibrillator) in place (Chronic) Z95.810 History of coronary artery stent placement (Chronic) Z95.5 PCI-RCA and CX History of coronary artery stent placement Z95.5 [id number] and Cx History of left heart catheterization Onset Date: ~12/14/17 Z98.890 CORONARY ANGIOGRAPHY DOMINANCE: Right Dominant LEFT HEART ASSESSMENT Left Ventricular Ejection Fraction: by LV Gram 10-15 % Global Hypokinesis - Severe Depressed Left Ventricular systolic function Normal Left Ventricular End Diastolic Pressure LEFT MAIN: Non-obstructive LEFT ANTERIOR DECENDING ARTERY: Previously placed stent is patent DIAGONAL 1: Ostial - Mild luminal irregularities less than 30% DIAGONAL 2: Proximal - Non-obstructive CIRCUMFLEX ARTERY: MID CIRC: Previously placed stent is patent RIGHT CORONARY ARTERY: MID RCA: Previously placed stent has instent 20 % restenosis with a new at distal edge of stent Surgical History: - - PCI x 10-11. Psychiatric History: No pertinent psych hx Lives: With Family Smoking Status: Current every day smoker Alcohol: None Drugs: None - *Family History Maternal Family History: Family History (Last Reviewed 09/07/18 @ 12:58 by JEREMIE Aguilar) Father CAD (coronary artery disease) Heart disease Mother CAD (coronary artery disease) Heart disease Aunt Cancer Brother Heart disease Hypertension History Items: Heart Disease Paternal Family History: Family History (Last Reviewed 09/07/18 @ 12:58 by JEREMIE Aguilar) Father CAD (coronary artery disease) Heart disease Mother CAD (coronary artery disease) Heart disease Aunt Cancer Brother Heart disease Hypertension History Items: Heart Disease Review of Systems Constitutional: Denies: Chills, Fever, Weight Change HEENT: Denies: Head Aches, Sinus Congestion, Sinus Drainage Cardiovascular: Denies: Chest Pain, Edema, Light Headedness, Palpitations, Syncope Respiratory: Reports: Cough, Shortness of Breath, Sputum production Gastrointestinal: Denies: Abdominal Pain, Nausea, Vomiting Genitourinary: Denies: Dysuria Musculoskeletal: Denies: Joint Pain, Joint Tenderness Skin: Reports: - - Chronic skin changes bilateral lower extremities. Denies: Rash, Wounds Neurological: Denies: Numbness, Tingling, Focal weakness Psychiatric: Denies: Anxiety, Depression, Homicidal Ideations, Suicidal Ideations Hematologic/ Lymphatic: Denies: Easy Bruising, Easy Bleeding VTE Information - Inpt Only VTE Present on Admission: No VTE Mechan Device Prophylaxis: None VTE Pharm Prophylaxis ordered?: Yes - Physical Exam General: Alert, Oriented x3, Cooperative HEENT: Atraumatic, PERRLA, EOMI, Normocephalic Neck: Supple, No JVD, Negative Carotid Bruits Lungs: Clear to auscultation, Diminished Cardiovascular: Regular rate, Regular Rhythm, Normal S1, Normal S2, No murmurs Abdomen: Bowel Sounds Present, Soft, Non Tender, Non-Distended Extremities: No clubbing, No cyanosis, No edema, Capillary Refill Less than 3 Seconds Skin: No rashes, No breakdown, - - Chronic skin changes bilateral lower extremities Musculoskeletal: No Tenderness to Palpation of Joints or Extremities Neurological: Cranial nerves II-XII grossly intact, Neuro grossly intact Psych/Mental Status: Flat Affect Vital Signs Temp Pulse Resp BP Pulse Ox 97.8 F 99 20 H 143/93 H 100 09/07/18 07:58 09/07/18 08:12 09/07/18 07:58 09/07/18 07:58 09/07/18 07:58 Oxygen Flow Rate (L/min) 2 Oxygen Delivery Method Nasal Cannula Weight: 153 lb 10.595 oz Body Mass Index (BMI) 23.3 Laboratory Tests Past 24 Hrs 09/07/18 09/07/18 09/07/18 05:25 05:25 05:25 WBC 5.5 RBC 3.89 L Hgb 11.6 L Hct 35.6 L MCV 91.5 MCH 29.8 MCHC 32.6 RDW 15.1 H RDW Differential 49.6 H Plt Count 211 MPV 9.3 Immature Gran % (Auto) 0.200 Neut % (Auto) 70.9 H Lymph % (Auto) 21.6 [place] % (Auto) 4.9 Eos % (Auto) 1.5 Baso % (Auto) 0.9 Absolute Neuts (auto) 3.9 Absolute Lymphs (auto) 1.18 Total Counted Not Reportable Sodium 138 Potassium 4.5 Chloride 104 Carbon Dioxide 24.0 Anion Gap 10 BUN 19 H Creatinine 0.85 Estim Creat Clear Calc 87.05 Est GFR (MDRD) Af Amer 118 Est GFR (MDRD) Non-Af 97 BUN/Creatinine Ratio 22.2 H Glucose 85 Calcium 8.5 Troponin I 0.049 H B-Natriuretic Peptide 2671.9 H Assessment/Plan All Active Problems (Last Updated 08/16/18 @ 09:53 by Justin Zamarripa DO) Acute respiratory failure with hypoxemia (Acute) Acute bronchitis (Resolved) COPD exacerbation (Resolved) HCAP (healthcare-associated pneumonia) (Resolved) Hypotension (Resolved) MRSA (methicillin resistant Staphylococcus aureus) infection (Resolved) NSVT (nonsustained ventricular tachycardia) (Resolved) Near syncope (Resolved) 1. Acute hypoxic respiratory insufficiency secondary to acute on chronic systolic CHF and probable HCAP-continue supplement oxygen to maintain O2 sat above 90%. Walking pulse ox prior to discharge. 2. Acute on chronic systolic CHF/ischemic cardiomyopathy-status post ICD. Chest x-ray on admission with mild pulmonary congestion. BNP 2671. IV Lasix. Strict I&O. Daily weight. Repeat chest x-ray in a.m. Echocardiogram November 2017 with EF 15-20%, stage II diastolic dysfunction, mild mitral valve insufficiency, mild tricuspid valve insufficiency, RVSP estimated to be 43 mmHg. 3. Probable right-sided HCAP-chest x-ray with right-sided infiltrate. Afebrile. No leukocytosis. Started on oral Levaquin. Blood cultures drawn in ER. Send sputum for culture. History of MRSA HCAP. Albuterol DuoNeb aerosols. Mucinex. 4. Chronic COPD/pulmonary fibrosis-no acute exacerbation. Albuterol and DuoNeb aerosols. 5. CAD status post stents, chronically abnormal troponin-follows with Dr. Mak. Continue aspirin, statin, carvedilol, Plavix, isosorbide. 6. Hypertension-stable. Continue home carvedilol, isosorbide, losartan. 7. Iron deficiency anemia-stable, continue iron supplementation. 8. Tobacco dependence-encourage smoking cessation. Nicotine replacement patch. 9. Noncompliance-daughter reports patient does not take his medications as prescribed. Possibly contributing to exacerbation of CHF. DVT prophylaxis-heparin subcu This patient was seen by JEREMIE Aguilar under the supervision of Dr. Armenta.
[2018-09-07] MEDS: Furosemide 20 MG/2 ML VIAL IV ×2 (12:42→21:04)
--- NOTE | 2018-09-07 13:59 | CASEMGMT ---
CRISTAL/JUWAN in echart, SW printed and placed in paper chart. FRANCIA Vasquez, TELEGRAPH AND TELETYPE OPERATOR
--- NOTE | 2018-09-07 16:11 | CM.UR ---
GILL BASS Face to Face with patient for initial transition planning/care coordination assessment. GILL BASS introduced self and role at [facility]. Patient sitting up in bed, alert and oriented. Patient willing to participate in assessment and is able to answer all questions appropriately. Care providers, pharmacy, and demographics verified. Patient wishes to discharge home. Denies any changes in home environment. He got his walker at discharge last time. He was given RX for oxygen and I asked if he picked it up. States he can't afford to pay for it. He remains adamant that he wants home oxygen. States he came here from [place] and there--he got oxygen without any problems. States he was on it 24 hours per day. States that his cdl a driver there told him that just because it was getting to his finger doesn't mean it was getting to his lungs. I instructed on how a pulse ox works and how the body ensures vital organs get oxygen first. However he just got angry and said he doesn't care and doesn't trust pulse ox. States his friend had one that said 97% and she was within 4 hours. Reinforced how oxygen qualification works. Also instructed on co2 retention and how you can get too much oxygen. He didn't want to hear it. also asked if he is going to get a local cdl a driver and he states no. CM to follow for discharge planning needs that may arise. PCP: Jere SONG LYRICIST Specialists: Obdulio Training Consultant Preferred Pharmacy: [facility] Insurance: [employer] M[employer] Prescription Benefit: [facility] Living Will/HPOA: Yes, brother Angel Peralta LNOK: Brother, Niece Living Arrangements: Patient lives with Niece in 2 story house with bed and bath on 1st floor. Transportation: Self/Niece DME/HHC: Walker. Disposition Plan: Patient to discharge home with family support and follow-up plans in place. Will monitor for home oxygen. Cory Delong RN, CCM.
[2018-09-07] MEDS: Isosorbide Mononitrate 30 MG Tablet PO (18:18)
[2018-09-07] MEDS: guaiFENesin 1,200 MG Tablet 1200 MG PO (21:04)
[2018-09-07] MEDS: Atorvastatin Calcium 80 MG Tablet PO (21:04)
[2018-09-07] MEDS: 0.9% NaCl Peripheral Flush Adult/Peds IV (21:04)
[2018-09-07] MEDS: Heparin Injection (Vial) 5,000 UNIT/ML VIAL 5000 UNIT SC (21:05)
[2018-09-07] MEDS: Gabapentin 600 MG Tablet PO (21:08)
[2018-09-08] VITALS (9 sets, daily range): BP systolic 114–133; BP diastolic 67–89; PULSE 85–99; RESP 16–20; TEMP 36.5–36.8; O2SAT 95–98
[2018-09-08] MEDS: levoFLOXacin 750 MG Tablet PO (05:22)
[2018-09-08] MEDS: 0.9% NaCl Peripheral Flush Adult/Peds IV (05:22)
[2018-09-08] MEDS: Furosemide 20 MG/2 ML VIAL IV (05:22)
--- NOTE | 2018-09-08 05:55 | RAD_ITS ---
STUDY: X-RAY CHEST REASON FOR EXAM: Male, 57 years old. Pneumonia. TECHNIQUE: PA and lateral views of the chest. COMPARISON: September 07, 2018. FINDINGS: Patient has left-sided intercardiac pacemaker. Cardiac monitoring leads are present. There is hyperinflation of the lungs consistent with chronic obstructive lung disease (COPD). There is no demonstrated pleural abnormality. There is mild cardiac enlargement. Normal mediastinum and alberto. Normal visualized pulmonary arteries. There is atherosclerotic calcification of the aortic arch with tortuosity. Normal visualized thoracic spine. Normal visualized ribs, clavicles, and shoulders. There is no demonstrated abnormality of the visualized soft tissue structures of the upper abdomen. RAD/Chest PA and Lateral IMPRESSION: COPD and mild cardiomegaly. Electronically Signed: Sarah Sarabia MD at 6:48 EST , Service support ,
[2018-09-08 06:25] LABS: Anion Gap 9 (5-15); BUN 22 mg/dL (7-18); BUN/Creat Ratio 26.2 RATIO (10-20); Calcium,Total 8.2 mg/dL (8.5-10.1); Chloride 104 mmol/L (98-107); Creatinine, Serum 0.84 mg/dL (0.70-1.30); EST Glomerular Filtration Rate 99 mL/min (>60); Est Glom Filt Rate - Afr Amer 120 mL/min (>60); Estimated Creatinine Clearance 91.61 ml/min; Glucose 120 mg/dL (74-106); Sodium Level 138 mmol/L (136-145)
[2018-09-08] MEDS: Budesonide Respules 0.5 MG/2 ML AMPUL.NEB. INHALATION (07:06)
[2018-09-08] MEDS: Ipratropium/Albuterol Sulfate 3 ML AMPUL.NEB INHALATION (07:07)
[2018-09-08] MEDS: Ferrous Gluconate 324 MG Tablet PO (08:41)
[2018-09-08] MEDS: Aspirin 81 MG TAB.CHEW PO (08:41)
[2018-09-08] MEDS: Carvedilol 6.25 MG Tablet PO (09:13)
[2018-09-08] MEDS: Losartan Potassium 25 MG Tablet PO (09:13)
[2018-09-08] MEDS: Clopidogrel Bisulfate 75 MG Tablet PO (09:13)
[2018-09-08] MEDS: guaiFENesin 1,200 MG Tablet 1200 MG PO (09:13)
--- NOTE | 2018-09-08 10:28 | PCM.DC ---
You will use the following diet at home:: Cardiac Call your doctor if you observe: Shortness of breath, Dizziness, Fainting spells, Chest pain Allergies/Adverse Reactions: Allergies No Known Allergies Allergy (Verified 08/27/18 04:20) Medications to take at Discharge Nitroglycerin [Nitrostat] 0.4 mg SUBLINGUAL Q5M PRN #1 bottle 12/14/17 aspirin 81 mg chewable tablet 81 mg PO DAILY@0800 #30 tab.chew 01/11/18 atorvastatin 80 mg tablet 80 mg PO QHS #30 tab 01/11/18 carvedilol 6.25 mg tablet 6.25 mg PO BID #60 tab 01/11/18 clopidogrel 75 mg tablet 75 mg PO DAILY #30 tab 01/11/18 isosorbide mononitrate ER 30 mg tablet,extended release 24 hr 30 mg PO DAILY #30 tab 01/11/18 losartan 25 mg tablet 25 mg PO DAILY #30 tab 01/11/18 potassium chloride ER 20 mEq tablet,extended release(part/cryst) 20 meq PO DAILY #30 tab 01/11/18 ferrous gluconate 324 mg (37.5 mg iron) tablet 325 mg PO BIDCM #60 tab 01/15/18 Acetaminophen [Tylenol Tablet] 650 mg PO Q6H PRN PRN tablet 08/05/18 Albuterol Sulfate [Ventolin Hfa] 18 gm IH [id number] PRN #1 hfa.aer.ad 08/05/18 Ascorbic Acid [Vitamin C] 500 mg PO BIDCM 08/27/18 Gabapentin [Neurontin] 600 mg PO QHS 08/27/18 Furosemide [Lasix] 40 mg PO BID #60 tab 09/08/18 Nicotine [Nicoderm] 14 mg TRANSDERM. DAILY #14 patch 09/08/18 levoFLOXacin tablet [Levaquin tablet] 750 mg PO DAILY@0600 #7 tablet 09/08/18 The following prescriptions were given: levoFLOXacin tablet [Levaquin tablet] 750 mg PO DAILY@0600 #7 tablet Nicotine [Nicoderm] 14 mg TRANSDERM. DAILY #14 patch Furosemide [Lasix] 40 mg PO BID #60 tab Primary Care Physician: Berna Oquendo NP-C [Primary Care Provider] - Please follow up with your Primary Care Physician in: 1 Week Test Results: Test results from this visit will be discussed in further detail at your follow-up appointment, if applicable. Please Follow Up With: Bradford Mak MD When: As scheduled, tomorrow 09/09/18. Please Follow Up With: Fco Ahmadi DO - May see SECURITY INCIDENT HANDLER When: 2-3 Weeks Proposed Discharge Date: 09/08/18
--- NOTE | 2018-09-08 10:31 | DCINST_ITS ---
You will use the following diet at home:: Cardiac Call your doctor if you observe: Shortness of breath, Dizziness, Fainting spells, Chest pain Allergies/Adverse Reactions: Allergies No Known Allergies Allergy (Verified 08/27/18 04:20) Medications to take at Discharge Nitroglycerin [Nitrostat] 0.4 mg SUBLINGUAL Q5M PRN #1 bottle 12/14/17 aspirin 81 mg chewable tablet 81 mg PO DAILY@0800 #30 tab.chew 01/11/18 atorvastatin 80 mg tablet 80 mg PO QHS #30 tab 01/11/18 carvedilol 6.25 mg tablet 6.25 mg PO BID #60 tab 01/11/18 clopidogrel 75 mg tablet 75 mg PO DAILY #30 tab 01/11/18 isosorbide mononitrate ER 30 mg tablet,extended release 24 hr 30 mg PO DAILY #30 tab 01/11/18 losartan 25 mg tablet 25 mg PO DAILY #30 tab 01/11/18 potassium chloride ER 20 mEq tablet,extended release(part/cryst) 20 meq PO DAILY #30 tab 01/11/18 ferrous gluconate 324 mg (37.5 mg iron) tablet 325 mg PO BIDCM #60 tab 01/15/18 Acetaminophen [Tylenol Tablet] 650 mg PO Q6H PRN PRN tablet 08/05/18 Albuterol Sulfate [Ventolin Hfa] 18 gm IH [id number] PRN #1 hfa.aer.ad 08/05/18 Ascorbic Acid [Vitamin C] 500 mg PO BIDCM 08/27/18 Gabapentin [Neurontin] 600 mg PO QHS 08/27/18 Furosemide [Lasix] 40 mg PO BID #60 tab 09/08/18 Nicotine [Nicoderm] 14 mg TRANSDERM. DAILY #14 patch 09/08/18 levoFLOXacin tablet [Levaquin tablet] 750 mg PO DAILY@0600 #7 tablet 09/08/18 The following prescriptions were given: levoFLOXacin tablet [Levaquin tablet] 750 mg PO DAILY@0600 #7 tablet Nicotine [Nicoderm] 14 mg TRANSDERM. DAILY #14 patch Furosemide [Lasix] 40 mg PO BID #60 tab Primary Care Physician: Berna Oquendo NP-C [Primary Care Provider] - Please follow up with your Primary Care Physician in: 1 Week Test Results: Test results from this visit will be discussed in further detail at your follow- up appointment, if applicable. Please Follow Up With: Bradford Mak MD When: As scheduled, tomorrow 09/09/18. Please Follow Up With: Fco Ahmadi DO - May see SALES EFFECTIVENESS MANAGER When: 2-3 Weeks Proposed Discharge Date: 09/08/18
--- NOTE | 2018-09-08 10:39 | DS.PCM_ITS ---
Discharge Date and Diagnosis Date of Admission: 09/07/18 Date of Discharge: 09/08/18 - Primary Discharge Diagnosis 1. Acute hypoxic respiratory insufficiency secondary to acute on chronic systolic CHF and probable gram-negative HCAP 2. Acute on chronic systolic CHF/ischemic cardiomyopathy 3. Right-sided probable gram-negative HCAP 4. Chronic COPD/pulmonary fibrosis 5. CAD status post PCI, chronically abnormal troponin 6. Hypertension 7. Iron deficiency anemia 8. Tobacco dependence - Secondary Discharge Diagnosis Chronic Problems (Last Updated 08/16/18 @ 09:53 by Justin Zamarripa DO) Elevated troponin (Chronic) ICD (implantable cardioverter-defibrillator) in place (Chronic) History of coronary artery stent placement (Chronic) PCI-RCA and CX Atherosclerosis of coronary artery of [place] heart without angina pectoris (Chronic) LEFT HEART ASSESSMENT Left Ventricular Ejection Fraction: by LV Gram 10-15 % Global Hypokinesis - Severe Depressed Left Ventricular systolic function Normal Left Ventricular End Diastolic Pressure LEFT MAIN: Non-obstructive LEFT ANTERIOR DECENDING ARTERY: Previously placed stent is patent DIAGONAL 1: Ostial - Mild luminal irregularities less than 30% DIAGONAL 2: Proximal - Non-obstructive CIRCUMFLEX ARTERY: MID CIRC: Previously placed stent is patent RIGHT CORONARY ARTERY: MID RCA: Previously placed stent has instent 20 % restenosis with a new at distal edge of stent Iron deficiency anemia (Chronic) COPD (chronic obstructive pulmonary disease) (Chronic) Tobacco abuse (Chronic) Medical non-compliance (Chronic) Ischemic cardiomyopathy (Chronic) Hospital Course and Treatment Imaging Results: Diagnostic Data Chest X-Ray 09/08/18 05:55 IMPRESSION: COPD and mild cardiomegaly. Electronically Signed: Sarah Sarabia MD at 6:48 EST , Service support , Operations: None Procedures: None Summary of Care Provided: The patient is a 57 year old M admitted 09/07/2018 due to shortness of breath. 1. Acute hypoxic respiratory insufficiency secondary to acute on chronic systolic CHF and probable HCAP-oxygen stable on room air at time of discharge. Ambulatory pulse ox completed and patient remained 95% with ambulation. 2. Acute on chronic systolic CHF/ischemic cardiomyopathy-status post ICD. Chest x-ray on admission with mild pulmonary congestion. BNP 2671. Patient received IV Lasix. Repeat chest x-ray this a.m. showed COPD and mild cardiomegaly. Echocardiogram November 2017 with EF 15-20%, stage II diastolic dysfunction, mild mitral valve insufficiency, mild tricuspid valve insufficiency, RVSP estimated to be 43 mmHg. Patient's home Lasix regimen increased to 40 mg twice daily. Patient has follow-up with Dr. Mak tomorrow, 09/09/2018. Follow-up with primary care physician 1 week. 3. Right-sided probable gram-negative HCAP-chest x-ray with right-sided infiltrate. Afebrile. No leukocytosis. Started on oral Levaquin. Blood cultures drawn in ER, pending. History of MRSA HCAP. Discharged on Levaquin 750 mg for 7 days at discharge. 4. Chronic COPD/pulmonary fibrosis-no acute exacerbation. Continue home inhaler regimen. Patient has been recommended to follow-up with pulmonary medicine in the past. Follow-up with Dr. Ahmadi in 2-3 weeks. 5. CAD status post stents, chronically abnormal troponin-follows with Dr. Mak. Continue aspirin, statin, carvedilol, Plavix, isosorbide. 6. Hypertension-stable. Continue home carvedilol, isosorbide, losartan. 7. Iron deficiency anemia-stable, continue iron supplementation. 8. Tobacco dependence-encourage smoking cessation. Nicotine replacement patch. 9. Noncompliance-daughter reports patient does not take his medications as prescribed. Possibly contributing to exacerbation of CHF. General: Alert, Oriented x3, Cooperative HEENT: Atraumatic, PERRLA, EOMI, Normocephalic Neck: Supple, No JVD, Negative Carotid Bruits Lungs: Diminished, few scattered crackles Cardiovascular: Regular rate, Regular Rhythm, Normal S1, Normal S2, No murmurs Abdomen: Bowel Sounds Present, Soft, Non Tender, Non-Distended Extremities: No clubbing, No cyanosis, No edema, Capillary Refill Less than 3 Seconds Skin: No rashes, No breakdown, - - Chronic skin changes bilateral lower extremities Musculoskeletal: No Tenderness to Palpation of Joints or Extremities Neurological: Cranial nerves II-XII grossly intact, Neuro grossly intact Psych/Mental Status: Flat Affect Patient seen and examined prior to discharge. Physical assessment as noted above. Patient is stable for discharge with follow up recommendations as noted above. This patient was seen by JEREMIE Aguilar under the supervision of Dr. Armenta. - Physical Exam Vital Signs Temp Pulse Resp BP Pulse Ox 97.7 F L 89 16 131/85 H 95 09/08/18 08:44 09/08/18 08:44 09/08/18 08:44 09/08/18 08:44 09/08/18 08:58 Oxygen Flow Rate (L/min) 3 Oxygen Delivery Method Room Air Weight: 153 lb 10.595 oz Body Mass Index (BMI) 23.3 Intake and Output for Last 24 Hours 09/06/18 09/07/18 09/08/18 23:59 23:59 23:59 Intake Total 1420 / 1420 460 / 460 Balance 1420 / 1420 460 / 460 Laboratory Tests Past 24 Hrs 09/07/18 09/08/18 16:07 06:00 Sodium 138 Potassium 4.0 Chloride 104 Carbon Dioxide 25.0 Anion Gap 9 BUN 22 H Creatinine 0.84 Estim Creat Clear Calc 91.61 Est GFR (MDRD) Af Amer 120 Est GFR (MDRD) Non-Af 99 BUN/Creatinine Ratio 26.2 H Glucose 120 H Calcium 8.2 L Troponin I 0.030 Discharge Diet: Low fat/ Low Cholesterol Call your doctor if you observe: Shortness of breath, Dizziness, Fainting spells, Chest pain Home Medications: Medications to take at Discharge Nitroglycerin [Nitrostat] 0.4 mg SUBLINGUAL Q5M PRN #1 bottle 12/14/17 aspirin 81 mg chewable tablet 81 mg PO DAILY@0800 #30 tab.chew 01/11/18 atorvastatin 80 mg tablet 80 mg PO QHS #30 tab 01/11/18 carvedilol 6.25 mg tablet 6.25 mg PO BID #60 tab 01/11/18 clopidogrel 75 mg tablet 75 mg PO DAILY #30 tab 01/11/18 isosorbide mononitrate ER 30 mg tablet,extended release 24 hr 30 mg PO DAILY #30 tab 01/11/18 losartan 25 mg tablet 25 mg PO DAILY #30 tab 01/11/18 potassium chloride ER 20 mEq tablet,extended release(part/cryst) 20 meq PO DAILY #30 tab 01/11/18 ferrous gluconate 324 mg (37.5 mg iron) tablet 325 mg PO BIDCM #60 tab 01/15/18 Acetaminophen [Tylenol Tablet] 650 mg PO Q6H PRN PRN tablet 08/05/18 Albuterol Sulfate [Ventolin Hfa] 18 gm IH [id number] PRN #1 hfa.aer.ad 08/05/18 Ascorbic Acid [Vitamin C] 500 mg PO BIDCM 08/27/18 Gabapentin [Neurontin] 600 mg PO QHS 08/27/18 Furosemide [Lasix] 40 mg PO BID #60 tab 09/08/18 Nicotine [Nicoderm] 14 mg TRANSDERM. DAILY #14 patch 09/08/18 levoFLOXacin tablet [Levaquin tablet] 750 mg PO DAILY@0600 #7 tablet 09/08/18 Following Prescrptions Were Given to Patient: levoFLOXacin tablet [Levaquin tablet] 750 mg PO DAILY@0600 #7 tablet Nicotine [Nicoderm] 14 mg TRANSDERM. DAILY #14 patch Furosemide [Lasix] 40 mg PO BID #60 tab Primary Care Physician: Berna Oquendo NP-C [Primary Care Provider] - Please follow up with your Primary Care Physician in: 1 Week Please Follow Up With: Bradford Mak MD When: As scheduled, tomorrow 09/09/18. Please Follow Up With: Fco Ahmadi DO - May see TACKING STITCH REMOVER When: 2-3 Weeks Disposition: Home Minutes spent on discharge:: 35 Patient Condition:: Stable Medical Necessity - Tobacco Use Smoking Status: Current every day smoker Meaningful Use Info Meaningful Use Diagnoses (Choose all that apply): CHF - CHF YUE/ARB ordered at discharge?: Yes Documented LVEF (%): 15
--- NOTE | 2018-09-09 16:00 | CASEMGMT ---
RN CM Discharge F/U Phone Call LACE: 13 Strata: 4 Discharge date: 09/08/18 Pt does not have phone number listed so this RN CM is unable to complete f/u phone call at this time. SStaten RN CM Admission dx: HCAP, CHF exac
== END 2018-09-08 13:45 | disposition home or self-care (01) | DRG 177 ==
LOC: ED 06:05 → PCU 07:03
PROVIDERS: Admitting Provider Internal Medicine; Emergency Provider Emergency Medicine; Family Provider Nurse Practitioner Family; PCP Nurse Practitioner Family; Visit Provider Internal Medicine
DX: J15.6 Pneumonia due to other Gram-negative bacteria (principal); I50.23 Acute on chronic systolic (congestive) heart failure; I11.0 Hypertensive heart disease with heart failure; I25.10 Atherosclerotic heart disease of native coronary artery without angina pectoris; D50.9 Iron deficiency anemia, unspecified; I25.5 Ischemic cardiomyopathy; J84.10 Pulmonary fibrosis, unspecified; J44.9 Chronic obstructive pulmonary disease, unspecified; R06.89 Other abnormalities of breathing; Y95 Nosocomial condition; F17.200 Nicotine dependence, unspecified, uncomplicated; Z95.810 Presence of automatic (implantable) cardiac defibrillator; Z86.14 Personal history of Methicillin resistant Staphylococcus aureus infection; Z95.5 Presence of coronary angioplasty implant and graft; Z79.02 Long term (current) use of antithrombotics/antiplatelets; R09.02 Hypoxemia; Z91.19 Patient's noncompliance with other medical treatment and regimen
CPT/HCPCS: 36415; 71046; 80048; 83880; 84484; 85025; 87040; 93005; 94640; 99251; 99285; 99406; J7040; A4216; G0463; J1940

== ENCOUNTER 2018-09-26 19:22 | Inpatient (IN) | payer MEDICARE, MEDICAID, SELFPAY ==
[2018-09-07 07:58] VITALS: BMI 23.3
[2018-09-26] VITALS (11 sets, daily range): BP systolic 131–147; BP diastolic 80–112; PULSE 102–116; RESP 17–36; TEMP 36.6–37.2; O2SAT 95–100; BMI 22.0; BMI 23.7
--- NOTE | 2018-09-26 19:33 | EKG12_ITS ---
Test Reason : Blood Pressure : / mmHG Vent. Rate : 101 BPM Atrial Rate : 101 BPM P-R Int : 188 ms QRS Dur : 102 ms QT Int : 388 ms P-R-T Axes : 087 -60 102 degrees QTc Int : 503 ms Sinus tachycardia Left atrial enlargement Left anterior fascicular block Poor R wave progression Septal infarct , age undetermined Nonspecific T wave abnormality Abnormal ECG Confirmed by ERICA BARLOW, SOFY ([id number]), editor trade journal AMADOR EDMONDS ([id number]) on 09/30/2018 1:25:02 PM Referred By: KENDRA Confirmed By:SOFY MALDONADO MD
--- NOTE | 2018-09-26 19:35 | RAD_ITS ---
STUDY: X-RAY CHEST REASON FOR EXAM: Male, 58 years old. Cough and shortness of breath today. TECHNIQUE: Single AP portable view of the chest. COMPARISON: September 08, 2018. FINDINGS: The lungs are well expanded. There is vague infiltrate in the right lower lobe not seen on the earlier study. There is no demonstrated pleural abnormality. Stable cardiomegaly. Stable cardiac pacemaker. Normal mediastinum and alberto. Normal visualized pulmonary arteries. Normal visualized aortic arch and descending thoracic aorta. No visualized osseous changes. There is no demonstrated abnormality of the visualized soft tissue structures of the upper abdomen. RAD/Chest 1 View (Portable) IMPRESSION: Left and minimal right basilar infiltrate without other major interval change. Electronically Signed: Vci Looney DO at 22:24 EST Tel [phone], Service support ,
[2018-09-26] MEDS: Ipratropium/Albuterol Sulfate 3 ML AMPUL.NEB INHALATION (19:40)
--- NOTE | 2018-09-26 20:01 | ED.RN ---
PT BROTHER NOTIFIED BY THIS RN PER PT REQUEST.
[2018-09-26 20:05] LABS: Absolute Lymphocyte Count 1.46 X10^3/ul (0.83-4.51); Absolute Neutrophil Count 6.1 X10^3/uL (2.0-7.7); Basophil# 0.04 X10^3/uL; Basophil% 0.5 % (0-1); Eosinophil# 0.04 X10^3/uL; Eosinophils% 0.5 % (0-5); Hemoglobin 12.4 g/dl (13.0-16.5); Lymphocyte # 1.46 X10^3/ul (4.0); Mean Corp Hgb Conc 31.8 g/gl (32-36); Mean Corpuscular Hgb 27.9 pg (27.0-32.0); Mean Corpuscular Volume 87.8 fL (80-94); Mean Platelet Vol. 9.2 fl (6.2-12.0); Monocyte# 0.49 X10^3/uL; Neutrophil # 6.08 X10^3/uL (2.7-7.7); Neutrophil % 74.8 % (47-70); Platelet Count 231 K/mm3 (150-450); RBC Distribution Width CV 15.1 % (11.6-14.6); RBC Distribution Width SD 48.6 fl (35.1-43.9); Red Blood Count 4.44 M/mm3 (4.6-6.2); White Blood Count 8.1 K/mm3 (4.4-11.0)
[2018-09-26] MEDS: 0.9% Normal Saline 1,000 ML 150 ML IV (20:07)
[2018-09-26 20:08] LABS: POSITIVE COUNT NO; POSITIVE DIFFERENTIAL NO; POSITIVE MORPHOLOGY NO
[2018-09-26 20:11] LABS: Anion Gap 9 (5-15); BUN 17 mg/dL (7-18); BUN/Creat Ratio 17.5 RATIO (10-20); Calcium,Total 8.6 mg/dL (8.5-10.1); Chloride 104 mmol/L (98-107); Creatinine, Serum 0.97 mg/dL (0.70-1.30); EST Glomerular Filtration Rate 84 mL/min (>60); Est Glom Filt Rate - Afr Amer 101 mL/min (>60); Estimated Creatinine Clearance 75.34 ml/min; Glucose 81 mg/dL (74-106); Potassium 5.1 mmol/L (3.5-5.1); Sodium Level 137 mmol/L (136-145)
[2018-09-26] MEDS: LORazepam 2 MG/ML Syringe 1 MG IV ×2 (20:12→23:00)
[2018-09-26 20:29] LABS: D-Dimer Quantitative (DVT/PE) 1.28 FEU/ug/m (0.27-0.49)
[2018-09-26 20:32] LABS: Lactic Acid 2.7 mmol/L (0.4-2.0)
--- NOTE | 2018-09-26 20:32 | CT_ITS ---
STUDY: CTA CHEST REASON FOR EXAM: Male, 58 years old. Dyspnea. RADIATION DOSAGE (If Supplied By Facility): CTDIvol = ( 16.56 ) mGy, DLP = ( 517.68 ) mGycm TECHNIQUE: The examination was performed with the intravenous administration of 75ML ml of Isovue 370 contrast material. Post-processing of the angiographic images was performed, with multiplanar reformation and 3D reconstruction. Individualized dose optimization techniques were used for this CT. COMPARISON: August 21, 2018 FINDINGS: There are bilateral groundglass opacities. Motion artifact degrades anatomic detail. Normal enhancement of the main pulmonary artery and right and left pulmonary arteries. Normal enhancement of the bilateral peripheral pulmonary arteries. There is no demonstrated pulmonary embolism. There is atherosclerotic calcification of the aortic arch and descending thoracic aorta. There is no demonstrated aortic dissection. There are calcifications of the coronary arteries. There is cardiomegaly present. There are stable enlarged mediastinal and hilar lymph nodes. Normal visualized trachea and bronchi. Normal chest wall structures. Normal osseous structures. The limited images of the upper abdomen demonstrate peripheral calcifications of the abdominal aorta. CT/CTA Chest W/WO Contrast IMPRESSION: No demonstrated pulmonary embolism or arterial dissection. Bilateral groundglass opacities a nonspecific finding may be secondary to underlying edema. Atherosclerosis. Cardiomegaly. Stable enlarged mediastinal and hilar lymph nodes Electronically Signed: Sandra Craft MD at 22:05 EST Tel , Service support ,
--- NOTE | 2018-09-26 20:33 | ED.RN ---
lab called with critical lab results. D dimer 1.[address] Green made aware. no new orders at this time.
--- NOTE | 2018-09-26 21:01 | ED.RN ---
THIS RN CALLED TO PHARMACY FOR PT ANTIBIOTICS.
[2018-09-26] MEDS: Ceftriaxone 1 GM/50 ML BAG IV (21:31)
--- NOTE | 2018-09-26 22:07 | ED.VISSUMM ---
- ER Visit Summary Date of Service: 09/26/18 Chief Complaint: [Shortness of breath] History of Present Illness: The patient is a 58 M [presents the emergency department complaint shortness of breath started earlier this morning. Patient states he gradually began feeling more more short of breath. Patient has had a cough. Patient complains of sputum production that started yellow. Patient complains of pain in his chest but only with cough. Patient states that he is supposed to be on oxygen at home but insurance will not cover it because he has not qualified with a low enough oxygen saturation. Patient had fever up to 102 at home. Patient does have a history of COPD and ischemic cardiomyopathy. Patient has a history of coronary artery disease. Patient has a defibrillator. He denies recent travel or surgery. He denies any hemoptysis.] Physical Examination: [HEENT-PERRLA, EOMI. Cranial nerves II through XII grossly intact. TMs clear. Mucous membranes moist. No adenopathy. Cardiovascular-regular rate and rhythm without murmur or ectopy Lungs-aeration bilaterally. Patient has some faint expiratory wheezes noted. No accessory muscle use or retractions noted. Patient is tachypneic. Patient has some mild conversational dyspnea. Abdomen-normoactive bowel sounds, soft, nontender, no rebound or rigidity, no peritoneal signs. Extremities-intact ?4, normal range of motion, normal pulses, atraumatic] Test Results: [EKG obtained arrival shows sinus rhythm with a ventricular rate of [address] changes noted with compared with prior EKG from September 07, 2018 no new changes noted. CBC with differential obtained showed a white blood cell count of 8.1, hemoglobin 12, hematocrit 39, platelets 231. Chemistries unremarkable. Troponin was 0.07 BNP was 2850. D-dimer is 1.28. Influenza screen was negative and lactate was elevated 2.7. CTA of the chest showed no evidence for PE or dissection. He did have some groundglass opacities which may be due to some pulmonary edema.] Emergency Department Course and Treatment: [Patient on arrival received a DuoNeb aerosol. Patient was given Solu-Medrol 125 mill grams IV. Patient started on Ceftin and Zithromax. Patient continues to complain of feeling dyspneic. I did give him a milligram of Ativan at his request to help him relax.] Treatment Plan: [Admit] Disposition: [Admit] Impression: [COPD exacerbation Dyspnea] This note was generated with [employer] dictation software. It may contain incorrect words, spelling, and punctuation that were not noted in review of the chart prior to signing ED Disposition - Plan for ED Patient: Chief Complaint: Shortness of Breath Referrals: Berna Oquendo, TRUSS PULLER HELPER-C [Primary Care Provider] -
[2018-09-26] MEDS: MethylPREDNISolone 125 MG/2 ML Vial IV (22:11)
--- NOTE | 2018-09-26 22:21 | PCM.HP.STD ---
Problem List (1) COPD with acute exacerbation Status: Chronic (2) Septic shock Status: Acute History of Present Illness Date of Admission: 09/26/18 Chief Complaint: shortness of breath The patient is a 57 year old M with a significant history of tobacco abuse; COPD with home oxygen use, ischemic cardiomyopathy, CAD status post stent; ICD who presents with progressively worsening shortness of breath that started a day prior to his presentation. His shortness of breath is present at rest but it increases with mild exertion. Associated with her symptoms is productive cough of thick yellow and greenish sputum. The patient reports that the day before his admission his temperature was 103 F. At emergency department patient had tachypnea with respiratory rate as high as 33. His heart rate was elevated up to 109. He was afebrile with no leukocytosis or bandemia. Lactic acid was elevated as 2.7 and initially. His and was elevated at 0.07 and his BNP was elevated at 2850.8. Past Medical History Past Medical History (Chronic Problems): Chronic Problems (Last Reviewed 09/27/18 @ 02:25 by Marcus Mi MD) COPD with acute exacerbation (Chronic) Elevated troponin (Chronic) ICD (implantable cardioverter-defibrillator) in place (Chronic) History of coronary artery stent placement (Chronic) PCI-RCA and CX Atherosclerosis of coronary artery of [place] heart without angina pectoris (Chronic) LEFT HEART ASSESSMENT Left Ventricular Ejection Fraction: by LV Gram 10-15 % Global Hypokinesis - Severe Depressed Left Ventricular systolic function Normal Left Ventricular End Diastolic Pressure LEFT MAIN: Non-obstructive LEFT ANTERIOR DECENDING ARTERY: Previously placed stent is patent DIAGONAL 1: Ostial - Mild luminal irregularities less than 30% DIAGONAL 2: Proximal - Non-obstructive CIRCUMFLEX ARTERY: MID CIRC: Previously placed stent is patent RIGHT CORONARY ARTERY: MID RCA: Previously placed stent has instent 20 % restenosis with a new at distal edge of stent Iron deficiency anemia (Chronic) COPD (chronic obstructive pulmonary disease) (Chronic) Tobacco abuse (Chronic) Medical non-compliance (Chronic) Ischemic cardiomyopathy (Chronic) Medical History: Medical History (Last Reviewed 09/27/18 @ 02:25 by Marcus Mi MD) Atherosclerosis of coronary artery of [place] heart without angina pectoris (Chronic) I25.10 LEFT HEART ASSESSMENT Left Ventricular Ejection Fraction: by LV Gram 10-15 % Global Hypokinesis - Severe Depressed Left Ventricular systolic function Normal Left Ventricular End Diastolic Pressure LEFT MAIN: Non-obstructive LEFT ANTERIOR DECENDING ARTERY: Previously placed stent is patent DIAGONAL 1: Ostial - Mild luminal irregularities less than 30% DIAGONAL 2: Proximal - Non-obstructive CIRCUMFLEX ARTERY: MID CIRC: Previously placed stent is patent RIGHT CORONARY ARTERY: MID RCA: Previously placed stent has instent 20 % restenosis with a new at distal edge of stent Acute respiratory failure with hypoxemia (Acute) J96.01 Iron deficiency anemia (Chronic) D50.9 COPD (chronic obstructive pulmonary disease) (Chronic) J44.9 Tobacco abuse (Chronic) Z72.0 Medical non-compliance (Chronic) Z91.19 Ischemic cardiomyopathy (Chronic) I25.5 Acute on chronic systolic (congestive) heart failure I50.23 Restless leg syndrome G25.81 Acute bronchitis (Resolved) J20.9 COPD exacerbation (Resolved) J44.1 Recent discharge 12/14/17 following treatment for acute on chronic systolic CHF exacerbation, acute COPD exacerbation with acute hypoxic respiratory failure and MRSA HCAP PNA. HCAP (healthcare-associated pneumonia) (Resolved) J18.9 Recent discharge 12/14/17 following treatment for acute on chronic systolic CHF exacerbation, acute COPD exacerbation with acute hypoxic respiratory failure and MRSA HCAP PNA. Hypotension (Resolved) I95.9 MRSA (methicillin resistant Staphylococcus aureus) infection (Resolved) A49.02 Recent discharge 12/14/17 following treatment for acute on chronic systolic CHF exacerbation, acute COPD exacerbation with acute hypoxic respiratory failure and MRSA HCAP PNA. NSVT (nonsustained ventricular tachycardia) (Resolved) I47.2 Near syncope (Resolved) R55 Elevated troponin (Inactive) R74.8 Allergies No Known Allergies Allergy (Verified 09/26/18 19:22) Home Medications: Ambulatory Orders Medication Instructions Recorded RX: Nitroglycerin [Nitrostat] 0.4 mg SUBLINGUAL Q5M PRN #1 bottle 12/14/17 aspirin 81 mg chewable tablet 81 mg PO DAILY@0800 #30 tab.chew 01/11/18 atorvastatin 80 mg tablet 80 mg PO QHS #30 tab 01/11/18 carvedilol 6.25 mg tablet 6.25 mg PO BID #60 tab 01/11/18 clopidogrel 75 mg tablet 75 mg PO DAILY #30 tab 01/11/18 isosorbide mononitrate ER 30 mg 30 mg PO DAILY #30 tab 01/11/18 tablet,extended release 24 hr losartan 25 mg tablet 25 mg PO DAILY #30 tab 01/11/18 potassium chloride ER 20 mEq 20 meq PO DAILY #30 tab 01/11/18 tablet,extended release(part/cryst) ferrous gluconate 324 mg (37.5 mg 325 mg PO BIDCM #60 tab 01/15/18 iron) tablet RX: Acetaminophen [Tylenol Tablet] 650 mg PO Q6H PRN PRN tablet 08/05/18 RX: Albuterol Sulfate [Ventolin 18 gm IH [id number] PRN #1 08/05/18 Hfa] [id number] RX: Ascorbic Acid [Vitamin C] 500 mg PO BIDCM 08/27/18 RX: Gabapentin [Neurontin] 600 mg PO QHS 08/27/18 RX: Furosemide [Lasix] 40 mg PO BID #60 tab 09/08/18 RX: Nicotine [Nicoderm] 14 mg TRANSDERM. DAILY #14 patch 09/08/18 RX: levoFLOXacin tablet [Levaquin 750 mg PO DAILY@0600 #7 tablet 09/08/18 tablet] Surgical History: Surgical History (Last Reviewed 09/27/18 @ 02:25 by Marcus Mi MD) ICD (implantable cardioverter-defibrillator) in place (Chronic) Z95.810 History of coronary artery stent placement (Chronic) Z95.5 PCI-RCA and CX History of coronary artery stent placement Z95.5 IOB-Lugpr-ROP and Cx History of left heart catheterization Onset Date: 12/14/17 Z98.890 CORONARY ANGIOGRAPHY DOMINANCE: Right Dominant LEFT HEART ASSESSMENT Left Ventricular Ejection Fraction: by LV Gram 10-15 % Global Hypokinesis - Severe Depressed Left Ventricular systolic function Normal Left Ventricular End Diastolic Pressure LEFT MAIN: Non-obstructive LEFT ANTERIOR DECENDING ARTERY: Previously placed stent is patent DIAGONAL 1: Ostial - Mild luminal irregularities less than 30% DIAGONAL 2: Proximal - Non-obstructive CIRCUMFLEX ARTERY: MID CIRC: Previously placed stent is patent RIGHT CORONARY ARTERY: MID RCA: Previously placed stent has instent 20 % restenosis with a new at distal edge of stent Surgical History: - - PCI x 10-11. Psychiatric History: No pertinent psych hx Smoking Status: Current every day smoker Tobacco Use: Cigarettes Alcohol: None - *Family History Maternal Family History: Family History (Last Reviewed 09/27/18 @ 02:26 by Marcus Mi MD) Father CAD (coronary artery disease) Heart disease Mother CAD (coronary artery disease) Heart disease Aunt Cancer Brother Heart disease Hypertension History Items: Heart Disease Paternal Family History: Family History (Last Reviewed 09/27/18 @ 02:26 by Marcus Mi MD) Father CAD (coronary artery disease) Heart disease Mother CAD (coronary artery disease) Heart disease Aunt Cancer Brother Heart disease Hypertension History Items: Heart Disease Review of Systems Constitutional: Reports: Fever. Denies: Chills, Weight Change HEENT: Denies: Head Aches, Sinus Congestion, Sinus Drainage Cardiovascular: Denies: Chest Pain, Palpitations Respiratory: Reports: Cough, Shortness of Breath, Sputum production Gastrointestinal: Denies: Abdominal Pain, Nausea, Vomiting Genitourinary: Denies: Dysuria Musculoskeletal: Denies: Joint Pain, Joint Tenderness Skin: Denies: Rash, Wounds Neurological: Denies: Numbness, Tingling, Focal weakness Psychiatric: Denies: Anxiety, Depression, Homicidal Ideations, Suicidal Ideations Hematologic/ Lymphatic: Denies: Easy Bruising, Easy Bleeding VTE Information - Inpt Only VTE Present on Admission: No VTE Mechan Device Prophylaxis: None VTE Pharm Prophylaxis ordered?: Yes Patient Problems: Active and Suspected Problems (Last Reviewed 09/27/18 @ 02:25 by Marcus Mi MD) Septic shock (Acute) Septic shock (Acute) - Physical Exam General: Alert, Oriented x3, Cooperative HEENT: Atraumatic, PERRLA, EOMI, Normocephalic Neck: Supple, No JVD, Negative Carotid Bruits Lungs: Clear to auscultation, Diminished - mildly, Tachypneic Cardiovascular: No murmurs, Tachycardic Abdomen: Bowel Sounds Present, Soft, Non Tender Extremities: No edema, Capillary Refill Less than 3 Seconds Skin: No rashes, No breakdown Musculoskeletal: No Tenderness to Palpation of Joints or Extremities Neurological: Neuro grossly intact Psych/Mental Status: Anxious Vital Signs Temp Pulse Resp BP Pulse Ox 99.0 F 103 H 17 146/94 H 99 09/26/18 22:00 09/26/18 22:00 09/26/18 22:00 09/26/18 22:00 09/26/18 22:00 Oxygen Flow Rate (L/min) 2 Oxygen Delivery Method Nasal Cannula Weight: 65.771 kg Body Mass Index (BMI) 22.0 Microbiology Past 72 Hours 09/26/18 19:50 Influenza Types A,B Direct FA (SHARON) - Final Mucosa - Nasopharyngeal Laboratory Tests Past 24 Hrs 09/26/18 09/26/18 09/26/18 18:40 19:30 19:30 WBC 8.1 RBC 4.44 L Hgb 12.4 L Hct 39.0 L MCV 87.8 MCH 27.9 MCHC 31.8 L RDW 15.1 H RDW Differential 48.6 H Plt Count 231 MPV 9.2 Immature Gran % (Auto) 0.200 Neut % (Auto) 74.8 H Lymph % (Auto) 18.0 L [place] % (Auto) 6.0 Eos % (Auto) 0.5 Baso % (Auto) 0.5 Absolute Neuts (auto) 6.1 Absolute Lymphs (auto) 1.46 Total Counted Not Reportable D-Dimer Quant (PE/DVT) 1.28 H* Sodium Potassium Chloride Carbon Dioxide Anion Gap BUN Creatinine Estim Creat Clear Calc Est GFR (MDRD) Af Amer Est GFR (MDRD) Non-Af BUN/Creatinine Ratio Glucose Lactic Acid 2.7 H Calcium Troponin I B-Natriuretic Peptide 09/26/18 09/26/18 19:30 19:30 WBC RBC Hgb Hct MCV MCH MCHC RDW RDW Differential Plt Count MPV Immature Gran % (Auto) Neut % (Auto) Lymph % (Auto) [place] % (Auto) Eos % (Auto) Baso % (Auto) Absolute Neuts (auto) Absolute Lymphs (auto) Total Counted D-Dimer Quant (PE/DVT) Sodium 137 Potassium 5.1 Chloride 104 Carbon Dioxide 24.0 Anion Gap 9 BUN 17 Creatinine 0.97 Estim Creat Clear Calc 75.34 Est GFR (MDRD) Af Amer 101 Est GFR (MDRD) Non-Af 84 BUN/Creatinine Ratio 17.5 Glucose 81 Lactic Acid Calcium 8.6 Troponin I 0.070 H B-Natriuretic Peptide 2850.8 H Assessment/Plan All Active Problems (Last Reviewed 09/27/18 @ 02:25 by Marcus Mi MD) Septic shock (Acute) Septic shock (Acute) Acute respiratory failure with hypoxemia (Acute) Acute bronchitis (Resolved) COPD exacerbation (Resolved) HCAP (healthcare-associated pneumonia) (Resolved) Hypotension (Resolved) MRSA (methicillin resistant Staphylococcus aureus) infection (Resolved) NSVT (nonsustained ventricular tachycardia) (Resolved) Near syncope (Resolved) The patient is a 57 year old M with a significant history of tobacco abuse; COPD with home oxygen use, ischemic cardiomyopathy, CAD status post stent; ICD who presents with progressively worsening shortness of breath; reported fever and found to have tachycardia and tachypnea; as well as severely elevated BNP; mildly elevated troponin; and severely elevated lactic acid for which reason he met criteria for septic shock. Septic shock The etiology of the patient's acute respiratory distress could be from plain acute COPD exacerbation; and probable septic shock. He met criteria for Sirs in that he had tachycardia and tachypnea. And he reports a temperature of 103 Fahrenheit a day before his admission although he was afebrile at the hospital. And because his lactic acid is more than 4 he meets criteria for septic shock. However his chest x-ray showed only left and minimal right basilar infiltrate without other major interval change. Because his d-dimer was elevated a CTPA was done. CTPA was remarkable for bilateral groundglass opacity, which radiologist characterized as a nonspecific finding which may be secondary to underlying edema. At this point will assume that patient has septic shock from pneumonia and will follow septic shock protocol. Patient have history of ischemic cardiomyopathy and on this admission his BNP was 2850.8 which is concerning. Although his BNP has been elevated in the past, he has also had a BNP as low as 4012.4 in March of this year. Indeed at home he is on 40 mg Lasix p.o. twice daily. In any case we will give him a bolus of 30 mL's per kilogram IV normal saline and monitor patient closely. If he develops any ava pulmonary edema his IV fluids will be stopped and he will receive intravenous IV Lasix. This was discussed with nursing staff. At emergency department patient received ceftriaxone and azithromycin. Will continue ceftriaxone and azithromycin. Blood cultures are pending. Sputum culture ordered. DuoNeb scheduled. Albuterol as needed. Legionella antigen and streptococcus pneumonia antigen ordered. Patient was originally on nasal cannula but because of respiratory distress he was transitioned onto BiPAP. Influenza screen was negative. Comprehensive respiratory panel ordered. Patient received IV Solu-Medrol at emergency department. We will continue IV Solu-Medrol for septic shock secondary to pneumonia and for COPD exacerbation. Mucinex ordered. MRSA screen ordered. Trend lactic acid Patient was originally admitted to the progressive care unit but because of worsening respiratory distress and increasing lactic acid he was transferred to the intensive care unit. Will consult manpower development advisor to optimize management. Acute COPD exacerbation. Steroids, breathing treatments; BiPAP as above. Ischemic cardiomyopathy Aspirin; Plavix, and coreg continued. Hypertension On admission his blood pressure was not within goal. Imdur and Coreg continued. Trend blood pressures and adjust blood pressure medication as necessary. Tobacco abuse He reports smoking less than a pack a day. Nicotine patch 14 mg daily ordered. Elevated troponin Likely due to demand ischemia from acute COPD exacerbation and probable septic shock. Patient has no chest pain at this time. Trend troponin. Chronic anemia Iron supplements continued. DVT prophylaxis Lovenox ordered. Code Visit Inpatient E&M: 38487 Init Hosp L3
[2018-09-26 23:25] LABS: Allen Test POS; Base Excess -14 mmol/L (-2 to +2); Bicarbonate 9.4 mmol/L (22-26); Blood Gas Specimen Type ART; O2 Delivery Device Nasal Can; PO2 113 mmHG (75-100); SITE R Radial; SO2 99 % (95-99); Total Carbon Dioxide 10 mmol/L; pCO2 12.4 mmHg (35-45); pH 7.49 (7.35-7.45)
[2018-09-26 23:48] LABS: Reflex Lactate? Y
[2018-09-27] VITALS (41 sets, daily range): BP systolic 116–156; BP diastolic 79–108; PULSE 85–101; RESP 12–29; TEMP 36.1–37.3; O2SAT 95–100
[2018-09-27 00:57] LABS: Lactic Acid 7.5 mmol/L (0.4-2.0)
[2018-09-27] MEDS: 0.9% Normal Saline 1,000 ML 999 ML IV ×3 (01:24→05:06)
--- NOTE | 2018-09-27 01:31 | NURSING ---
report given to David [employer], via telephone. per RN, patient okay to be sent to ICU floor.
--- NOTE | 2018-09-27 01:45 | NURSING ---
pt arrived to ICU from PCU at 0143
[2018-09-27] MEDS: Ipratropium/Albuterol Sulfate 3 ML AMPUL.NEB INHALATION ×5 (02:19→23:05)
[2018-09-27 02:26] LABS: Mucous, Urine 0 SEEN /hpf (<or=2+); Red Blood Cells-Urine 0 SEEN /hpf (0-5)
[2018-09-27 02:37] LABS: Color, Urine Yellow (Yellow); Glucose, Dipstick Normal (Normal); Ketone-Dipstick 5 mg/dl (Negative); Leukocyte Esterase-Dipstick 25 /ul (Negative); Nitrite-Dipstick Negative (Negative); Occult Blood-Urine 10 /ul (Negative); Protein-Dipstick 100 mg/dl (Negative); Specific Gravity, Urine 1.025 (1.002-1.030); Urine Clarity Clear (Clear); Urine Urobilinogen 4 mg/dl (Normal)
[2018-09-27 02:42] LABS: Urine Bilirubin Dipstick 1 mg/dL (Negative)
--- NOTE | 2018-09-27 02:43 | ECHOD_ITS ---
Reason For Study: Dyspnea/SOB Procedure This was a 2D Doppler, Color Flow transthoracic echocardiogram. The exam was of adequate technical quality. Exam performed portable in ICU/CCU. Left Ventricle Moderately dilated left ventricle. Severe segmental systolic dysfunction (see wall motion). The estimated ejection fraction is 15 %. Diastolic function is indeterminate. Anterio-Basal: Severely hypokinetic. Lateral-Basal: Severely Hypokinetic. Posterior-Basal: Severely hypokinetic. Infero- Basal: Severely Hypokinetic. Basal inferoseptal: Severely Hypokinetic. Basal anteroseptal: Severely Hypokinetic. Mid-Anterior : Akinetic. Mid-Lateral : Severely Hypokinetic. Mid-Posterior: Severely Hypokinetic. Mid-Inferior: Akinetic. Mid-inferoseptal : Severly Hypokinetic. Mid-anteroseptal : Severely Hypokinetic. Anterior [place] : Akinetic. Inferior [place] : Akinetic. Lateral [place] : Severely Hypokinetic. Septal [place] : Severely Hypokinetic. Right Ventricle Mildly dilated right ventricle. ICD or pacer leads identified within the right ventricle. Mild global right ventricular systolic dysfunction. Atria The left atrium is mildly enlarged. The right atrium is mildly enlarged. ICD or pacer leads identified within the right atrium. Color flow doppler cannot exclude a small left to right interatrial shunt c/w a small ASD. Negative agitated saline contrast study for an intertarial shunt. Mitral Valve There is no mitral annular calcification. Moderate diffuse mitral valve thickening. Mild papillary muscle dysfunction of the mitral valve. Moderate (2+) eccentric mitral valve insufficiency. Tricuspid Valve Normal tricuspid valve. Moderate (2+) tricuspid valve insufficiency. Right ventricular systolic pressure estimated to be 65 mmHg. Aortic Valve Trisinus/trileaflet aortic valve. Mild diffuse aortic valve thickening. Mild focal aortic valve calcification. Aortic sclerosis, no stenosis. Pulmonic Valve The pulmonic valve is not well visualized. Mild (1+) pulmonic valve insufficiency. Great Vessels Normal sized aortic root. Pericardium/Pleural No pericardial effusion. Medication Performed a rapid injection of agitated mix of 9 cc saline and 1cc air to assess for atrial septal defect. MMode/2D Measurements & Calculations LVIDd: 5.7 cm IVSd: 0.82 cm Ao root diam: 3.8 cm LVIDs: 5.3 cm LVPWd: 1.2 cm LA dimension: 4.2 cm FS: 5.6 % LAV(MOD-bp): 97.0 ml LVAd ap4: 46.7 cm2 SV(MOD-sp4): 30.7 ml LAV(MOD-bp) Indexed: 52.9 ml/m2 EDV(MOD-sp4): 183.0 ml LAV(MOD-sp2): 90.1 ml EDV(sp4-el): 182.5 ml LAV(MOD-sp4): 90.4 ml LVAs ap4: 42.3 cm2 ESV(MOD-sp4): 152.3 ml ESV(sp4-el): 154.0 ml EF(MOD-sp4): 16.8 % EF(sp4-el): 15.6 % SV(sp4-el): 28.5 ml LA A4 area: 24.0 cm2 RA A4 area: 23.6 cm2 Time Measurements MV dec time: 0.10 sec Doppler Measurements & Calculations MV E max fany: 114.3 cm/sec Ao V2 max: 95.8 cm/sec LV V1 max: 83.1 cm/sec MV A max fany: 30.9 cm/sec Ao max P.7 mmHg LV V1 max P.8 mmHg MV E/A: 3.7 Ao V2 mean: 57.9 cm/sec LV V1 mean P.1 mmHg Ao mean P.6 mmHg LV V1 mean: 47.3 cm/sec Ao V2 VTI: 15.7 cm LV V1 VTI: 12.6 cm MR max fany: 475.8 cm/sec PA V2 max: 72.5 cm/sec TR max fany: 351.8 cm/sec MR max P.6 mmHg TR max P.5 mmHg MR mean fany: 339.7 cm/sec MR mean P.1 mmHg MR VTI: 161.7 cm Interpretation Summary Moderately dilated left ventricle. Severe segmental systolic dysfunction (see wall motion). The estimated ejection fraction is 15 %. Mildly dilated right ventricle. Mild global right ventricular systolic dysfunction. The left atrium is mildly enlarged. The right atrium is mildly enlarged. Moderate diffuse mitral valve thickening. Mild papillary muscle dysfunction of the mitral valve. Moderate (2+) eccentric mitral valve insufficiency. Moderate (2+) tricuspid valve insufficiency. Aortic sclerosis, no stenosis. Mild (1+) pulmonic valve insufficiency. Right ventricular systolic pressure estimated to be 65 mmHg. Diastolic function is indeterminate. ICD or pacer leads identified within the right atrium ICD or pacer leads identified within the right ventricle. Color flow doppler cannot exclude a small left to right interatrial shunt c/w a small ASD. Negative agitated saline contrast study for an intertarial shunt. Ordering Physician: Marcus Mi Referring Physician: Berna Oquendo Performed By: Guillermo Alcantara RCS
[2018-09-27 02:44] LABS: Squamous Epithelial Cells - UA 0-5 SEEN /hpf (0-5)
[2018-09-27 02:45] LABS: Bacteria RARE /hpf (None Seen); White Blood Cells 0-5 SEEN /hpf (0-5)
[2018-09-27 02:56] LABS: Allen Test POS; Base Excess -6 mmol/L (-2 to +2); Bicarbonate 18.9 mmol/L (22-26); Blood Gas Specimen Type ART; EPAP 5; FI02 30; IPAP 10; PO2 154 mmHG (75-100); RR 12; SITE R Radial; SO2 99 % (95-99); Time Given 246; Total Carbon Dioxide 20 mmol/L; pCO2 31.6 mmHg (35-45); pH 7.39 (7.35-7.45)
--- NOTE | 2018-09-27 02:58 | PCM.PN.BLA ---
Progress Note Septic shock follow-up note Nursing staff reported that patient is confused and occasionally pulling his BiPAP; moreover nursing staff reported crackles on lung examination. Upon examination patient was sleeping and had BiPAP on. Respiratory rate 16-22;Lung sounds were clear to auscultate. Heart sounds S1-S2 present.heart rate 90. Extremities: Palpable pulses 2 out of 4; capillary return less than 3 seconds. Patient could follow commands of squeezing hands and wiggling fingers. Assessment and Plan Septic shock Patient had no rales at the time of my examination this was confirmed by respiratory therapist. Continue IV fluid bolus previously ordered. Repeat lactic acid and troponin are pending. Blood cultures are pending. Continue broad-spectrum antibiotics of ceftriaxone and azithromycin.
[2018-09-27 03:43] LABS: Lactic Acid 3.2 mmol/L (0.4-2.0)
[2018-09-27 04:57] LABS: Absolute Lymphocyte Count 0.28 X10^3/ul (0.83-4.51); Absolute Neutrophil Count 7.9 X10^3/uL (2.0-7.7); Basophil# 0.01 X10^3/uL; Basophil% 0.1 % (0-1); Hematocrit 37.3 % (40-54); Hemoglobin 12.1 g/dl (13.0-16.5); Lymphocyte # 0.28 X10^3/ul (4.0); Lymphocyte % 3.4 % (19-41); Mean Corp Hgb Conc 32.4 g/gl (32-36); Mean Corpuscular Hgb 28.6 pg (27.0-32.0); Mean Corpuscular Volume 88.2 fL (80-94); Mean Platelet Vol. 9.2 fl (6.2-12.0); Monocyte# 0.12 X10^3/uL; Monocyte% 1.4 % (0-10); Neutrophil # 7.86 X10^3/uL (2.7-7.7); Neutrophil % 94.7 % (47-70); Platelet Count 223 K/mm3 (150-450); RBC Distribution Width CV 15.1 % (11.6-14.6); RBC Distribution Width SD 47.9 fl (35.1-43.9); Red Blood Count 4.23 M/mm3 (4.6-6.2); White Blood Count 8.3 K/mm3 (4.4-11.0)
[2018-09-27 04:59] LABS: POSITIVE COUNT NO; POSITIVE DIFFERENTIAL YES; POSITIVE MORPHOLOGY NO
[2018-09-27 05:00] LABS: Differential Indicated SCAN CRITERIA MET
[2018-09-27 05:15] LABS: Anion Gap 14 (5-15); BUN 19 mg/dL (7-18); Chloride 106 mmol/L (98-107); Creatinine, Serum 0.95 mg/dL (0.70-1.30); EST Glomerular Filtration Rate 86 mL/min (>60); Est Glom Filt Rate - Afr Amer 104 mL/min (>60); Glucose 111 mg/dL (74-106); Magnesium 1.8 mg/dL (1.6-2.6); Phosphorus 3.3 mg/dL (2.5-4.9); Potassium 4.3 mmol/L (3.5-5.1); Sodium Level 140 mmol/L (136-145)
[2018-09-27 07:04] LABS: Reflex Lactate? Y
--- NOTE | 2018-09-27 07:49 | CON.PCM_ITS ---
Problem List (1) COPD with acute exacerbation Status: Chronic (2) Elevated troponin Status: Chronic (3) ICD (implantable cardioverter-defibrillator) in place Status: Chronic (4) History of coronary artery stent placement Status: Chronic Comment: PCI-RCA and CX (5) Atherosclerosis of coronary artery of [place] heart without angina pectoris Status: Chronic Comment: LEFT HEART ASSESSMENT Left Ventricular Ejection Fraction: by LV Gram 10-15 % Global Hypokinesis - Severe Depressed Left Ventricular systolic function Normal Left Ventricular End Diastolic Pressure LEFT MAIN: Non-obstructive LEFT ANTERIOR DECENDING ARTERY: Previously placed stent is patent DIAGONAL 1: Ostial - Mild luminal irregularities less than 30% DIAGONAL 2: Proximal - Non-obstructive CIRCUMFLEX ARTERY: MID CIRC: Previously placed stent is patent RIGHT CORONARY ARTERY: MID RCA: Previously placed stent has instent 20 % restenosis with a new at distal edge of stent (6) Acute respiratory failure with hypoxemia Status: Acute (7) Tobacco abuse Status: Chronic (8) Medical non-compliance Status: Chronic (9) Ischemic cardiomyopathy Status: Chronic Reason for Consult Date of Consultation: 09/27/18 Reason for Consultation: Acute hypoxic respiratory failure History of Present Illness: The patient is a 58 year old M with past medical history listed below, who presented to [facility] on 09/26/2018 secondary to progressive shortness of breath and cough. Patient states he had developed yellow sputum and chest pain associated with cough. Patient is supposed to be on oxygen, but states that his insurance would not cover it because of saturations not low enough. Patient reportedly did have a fever to 102 ?F at home. On presentation to the emergency room, patient was noted to have tachycardia and an elevated BNP at 2850. Influenza screen was negative and initial lactate was elevated at 2.7. CTA of the chest showed scattered emphysematous changes, groundglass opacities and hilar lymphadenopathy. Patient was given duo nebs, Solu-Medrol, antibiotics and 2 doses of Ativan. Patient's repeat lactate was over 4, so patient was given a fluid bolus for reported septic shock. Patient's Lasix was held and he was placed in the intensive care unit on BiPAP therapy. On arrival to the intensive care unit, patient has been confused. Patient has been tolerating BiPAP therapy, but is not able to provide much additional information at this time. Review of the medical record shows the patient has presented to the ER or been admitted 10 times in the last 3 months. Patient's last echocardiogram was completed in November 2017 showing an EF of 15-20% with stage II diastolic dysfunction and severe global hypokinesis of the left ventricle. Patient was also noted to have a patent foramen ovale and pulmonary artery systolic pressures of 43 mmHg. This was grossly unchanged compared to 2016. Patient does not currently have a pulmonary function test on file and has missed [address] Ahmadi in the pulmonary office in March. Patient is reportedly only on albuterol at home. Patient does take Lasix at baseline. Patient is unable to provide a review of systems at this time. Past Medical History Past Medical History (Chronic Problems): Chronic Problems (Last Reviewed 09/27/18 @ 02:25 by Marcus Mi MD) COPD with acute exacerbation (Chronic) Elevated troponin (Chronic) ICD (implantable cardioverter-defibrillator) in place (Chronic) History of coronary artery stent placement (Chronic) PCI-RCA and CX Atherosclerosis of coronary artery of [place] heart without angina pectoris (Chronic) LEFT HEART ASSESSMENT Left Ventricular Ejection Fraction: by LV Gram 10-15 % Global Hypokinesis - Severe Depressed Left Ventricular systolic function Normal Left Ventricular End Diastolic Pressure LEFT MAIN: Non-obstructive LEFT ANTERIOR DECENDING ARTERY: Previously placed stent is patent DIAGONAL 1: Ostial - Mild luminal irregularities less than 30% DIAGONAL 2: Proximal - Non-obstructive CIRCUMFLEX ARTERY: MID CIRC: Previously placed stent is patent RIGHT CORONARY ARTERY: MID RCA: Previously placed stent has instent 20 % restenosis with a new at distal edge of stent Iron deficiency anemia (Chronic) COPD (chronic obstructive pulmonary disease) (Chronic) Tobacco abuse (Chronic) Medical non-compliance (Chronic) Ischemic cardiomyopathy (Chronic) Medical History: Medical History (Last Reviewed 09/27/18 @ 02:25 by Marcus Mi MD) Atherosclerosis of coronary artery of [place] heart without angina pectoris (Chronic) I25.10 LEFT HEART ASSESSMENT Left Ventricular Ejection Fraction: by LV Gram 10-15 % Global Hypokinesis - Severe Depressed Left Ventricular systolic function Normal Left Ventricular End Diastolic Pressure LEFT MAIN: Non-obstructive LEFT ANTERIOR DECENDING ARTERY: Previously placed stent is patent DIAGONAL 1: Ostial - Mild luminal irregularities less than 30% DIAGONAL 2: Proximal - Non-obstructive CIRCUMFLEX ARTERY: MID CIRC: Previously placed stent is patent RIGHT CORONARY ARTERY: MID RCA: Previously placed stent has instent 20 % restenosis with a new at distal edge of stent Acute respiratory failure with hypoxemia (Acute) J96.01 Iron deficiency anemia (Chronic) D50.9 COPD (chronic obstructive pulmonary disease) (Chronic) J44.9 Tobacco abuse (Chronic) Z72.0 Medical non-compliance (Chronic) Z91.19 Ischemic cardiomyopathy (Chronic) I25.5 Acute on chronic systolic (congestive) heart failure I50.23 Restless leg syndrome G25.81 Acute bronchitis (Resolved) J20.9 COPD exacerbation (Resolved) J44.1 Recent discharge 12/14/17 following treatment for acute on chronic systolic CHF exacerbation, acute COPD exacerbation with acute hypoxic respiratory failure and MRSA HCAP PNA. HCAP (healthcare-associated pneumonia) (Resolved) J18.9 Recent discharge 12/14/17 following treatment for acute on chronic systolic CHF exacerbation, acute COPD exacerbation with acute hypoxic respiratory failure and MRSA HCAP PNA. Hypotension (Resolved) I95.9 MRSA (methicillin resistant Staphylococcus aureus) infection (Resolved) A49.02 Recent discharge 12/14/17 following treatment for acute on chronic systolic CHF exacerbation, acute COPD exacerbation with acute hypoxic respiratory failure and MRSA HCAP PNA. NSVT (nonsustained ventricular tachycardia) (Resolved) I47.2 Near syncope (Resolved) R55 Elevated troponin (Inactive) R74.8 Allergies No Known Allergies Allergy (Verified 09/26/18 19:22) Home Medications: Ambulatory Orders Medication Instructions Recorded Nitroglycerin [Nitrostat] 0.4 mg SUBLINGUAL Q5M PRN #1 bottle 12/14/17 aspirin 81 mg chewable tablet 81 mg PO DAILY@0800 #30 tab.chew 01/11/18 atorvastatin 80 mg tablet 80 mg PO QHS #30 tab 01/11/18 carvedilol 6.25 mg tablet 6.25 mg PO BID #60 tab 01/11/18 clopidogrel 75 mg tablet 75 mg PO DAILY #30 tab 01/11/18 isosorbide mononitrate ER 30 mg 30 mg PO DAILY #30 tab 01/11/18 tablet,extended release 24 hr losartan 25 mg tablet 25 mg PO DAILY #30 tab 01/11/18 potassium chloride ER 20 mEq 20 meq PO DAILY #30 tab 01/11/18 tablet,extended release(part/cryst) ferrous gluconate 324 mg (37.5 mg 325 mg PO BIDCM #60 tab 01/15/18 iron) tablet Acetaminophen [Tylenol Tablet] 650 mg PO Q6H PRN PRN tablet 08/05/18 Albuterol Sulfate [Ventolin Hfa] 18 gm IH [id number] PRN #1 08/05/18 [id number] Ascorbic Acid [Vitamin C] 500 mg PO BIDCM 08/27/18 Gabapentin [Neurontin] 600 mg PO QHS 08/27/18 Furosemide [Lasix] 40 mg PO BID #60 tab 09/08/18 Nicotine [Nicoderm] 14 mg TRANSDERM. DAILY #14 patch 09/08/18 levoFLOXacin tablet [Levaquin 750 mg PO DAILY@0600 #7 tablet 09/08/18 tablet] Surgical History: Surgical History (Last Reviewed 09/27/18 @ 02:25 by Marcus Mi MD) ICD (implantable cardioverter-defibrillator) in place (Chronic) Z95.810 History of coronary artery stent placement (Chronic) Z95.5 PCI-RCA and CX History of coronary artery stent placement Z95.5 [id number] and Cx History of left heart catheterization Onset Date: 12/14/17 Z98.890 CORONARY ANGIOGRAPHY DOMINANCE: Right Dominant LEFT HEART ASSESSMENT Left Ventricular Ejection Fraction: by LV Gram 10-15 % Global Hypokinesis - Severe Depressed Left Ventricular systolic function Normal Left Ventricular End Diastolic Pressure LEFT MAIN: Non-obstructive LEFT ANTERIOR DECENDING ARTERY: Previously placed stent is patent DIAGONAL 1: Ostial - Mild luminal irregularities less than 30% DIAGONAL 2: Proximal - Non-obstructive CIRCUMFLEX ARTERY: MID CIRC: Previously placed stent is patent RIGHT CORONARY ARTERY: MID RCA: Previously placed stent has instent 20 % restenosis with a new at distal edge of stent Surgical History: - - PCI x 10-11. Psychiatric History: No pertinent psych hx Smoking Status: Current every day smoker Tobacco Use: Cigarettes Alcohol: None - *Family History Maternal Family History: Family History (Last Reviewed 09/27/18 @ 02:26 by Marcus Mi MD) Father CAD (coronary artery disease) Heart disease Mother CAD (coronary artery disease) Heart disease Aunt Cancer Brother Heart disease Hypertension History Items: Heart Disease Paternal Family History: Family History (Last Reviewed 09/27/18 @ 02:26 by Marcus Mi MD) Father CAD (coronary artery disease) Heart disease Mother CAD (coronary artery disease) Heart disease Aunt Cancer Brother Heart disease Hypertension History Items: Heart Disease Review of Systems Unable to obtain accurate/complete ROS d/t: Current mental status Patient Problems: Active and Suspected Problems (Last Reviewed 09/27/18 @ 02:25 by Marcus Mi MD) Septic shock (Acute) Septic shock (Acute) Objective: See HPI for review of past history - Physical Exam General: - - RASS -2. Good BiPAP synchrony. Appears older than stated age. HEENT: Atraumatic, PERRLA, EOMI, Normocephalic, - - Slight scleral injection without icterus Oral: No Gingival or Mucosal Lesions/ Ulcerations, Dry Mucosa Neck: Supple, No Nodes, Trachea Midline, JVD, Right Lungs: No rhonchi, No wheeze, No rales, Diminished, - - Symmetric expansion. No dullness to percussion. Cardiovascular: Normal S1, Normal S2, No murmurs, No rub noted, No Gallop, Tachycardic Abdomen: Bowel Sounds Present, Soft, Non Tender, Non-Distended Extremities: No cyanosis, No edema, Capillary Refill Less than 3 Seconds, Clubbing Skin: No rashes, No breakdown, - - Multiple tattoos noted Musculoskeletal: No Tenderness to Palpation of Joints or Extremities Lymphatic: No Cervical, Supraclavicular, or Inguinal Adenopathy Neurological: Cranial nerves II-XII grossly intact, Neuro grossly intact Psych/Mental Status: Appropriate, Flat Affect Vital Signs Temp Pulse Resp BP Pulse Ox 36.8 C 96 19 H 152/102 H 100 09/27/18 04:00 09/27/18 07:00 09/27/18 07:00 09/27/18 07:00 09/27/18 07:00 Oxygen Flow Rate (L/min) 4.5 Oxygen Delivery Method Bi-pap Weight: 69.5 kg Body Mass Index (BMI) 23.7 Intake and Output for Last 24 Hours 09/25/18 09/26/18 09/27/18 23:59 23:59 23:59 Intake Total 305 / 305 1697 / 1697 Output Total 250 / 250 Balance 305 / 305 1447 / 1447 Microbiology Past 72 Hours 09/27/18 02:10 Streptococcus pneumoniae Antigen (M - Final Urine Catheter - [place] 09/27/18 02:10 Legionella Antigen - Final Urine Catheter - [place] 09/26/18 19:50 Influenza Types A,B Direct FA (SHARON) - Final Mucosa - Nasopharyngeal Laboratory Tests Past 24 Hrs 09/26/18 09/26/18 09/26/18 18:40 19:30 19:30 WBC 8.1 RBC 4.44 L Hgb 12.4 L Hct 39.0 L MCV 87.8 MCH 27.9 MCHC 31.8 L RDW 15.1 H RDW Differential 48.6 H Plt Count 231 MPV 9.2 Immature Gran % (Auto) 0.200 Neut % (Auto) 74.8 H Lymph % (Auto) 18.0 L [place] % (Auto) 6.0 Eos % (Auto) 0.5 Baso % (Auto) 0.5 Absolute Neuts (auto) 6.1 Absolute Lymphs (auto) 1.46 Total Counted Not Reportable D-Dimer Quant (PE/DVT) 1.28 H* Specimen Type Sample Site pH Bicarbonate Actual POC Total CO2 Base Excess O2 Saturation O2 % ABG pCO2 ABG pO2 Alexis Test Respiration Rate O2 Delivery Device Liter Flow EPAP IPAP Blood Gas Notified Whom Blood Gas Notified Time Sodium Potassium Chloride Carbon Dioxide Anion Gap BUN Creatinine Estim Creat Clear Calc Est GFR (MDRD) Af Amer Est GFR (MDRD) Non-Af BUN/Creatinine Ratio Glucose Lactic Acid 2.7 H Calcium Phosphorus Magnesium Troponin I B-Natriuretic Peptide Urine Color Urine Clarity Urine pH Ur Specific [place] Urine Protein Urine Glucose (UA) Urine Ketones Urine Occult Blood Urine Nitrite Urine Bilirubin Urine Urobilinogen Ur Leukocyte Esterase Urine RBC Urine WBC Ur Squamous Epith Cells Urine Bacteria Urine Mucus 09/26/18 09/26/18 09/26/18 19:30 19:30 23:16 WBC RBC Hgb Hct MCV MCH MCHC RDW RDW Differential Plt Count MPV Immature Gran % (Auto) Neut % (Auto) Lymph % (Auto) [place] % (Auto) Eos % (Auto) Baso % (Auto) Absolute Neuts (auto) Absolute Lymphs (auto) Total Counted D-Dimer Quant (PE/DVT) Specimen Type ART Sample Site R Radial pH 7.49 H Bicarbonate Actual 9.4 L POC Total CO2 10 Base Excess -14 L O2 Saturation 99 O2 % ABG pCO2 12.4 L* ABG pO2 113 H Alexis Test POS Respiration Rate O2 Delivery Device Nasal Can Liter Flow 3.0 EPAP IPAP Blood Gas Notified Whom ED MD Blood Gas Notified Time Sodium 137 Potassium 5.1 Chloride 104 Carbon Dioxide 24.0 Anion Gap 9 BUN 17 Creatinine 0.97 Estim Creat Clear Calc 75.34 Est GFR (MDRD) Af Amer 101 Est GFR (MDRD) Non-Af 84 BUN/Creatinine Ratio 17.5 Glucose 81 Lactic Acid Calcium 8.6 Phosphorus Magnesium Troponin I 0.070 H B-Natriuretic Peptide 2850.8 H Urine Color Urine Clarity Urine pH Ur Specific [place] Urine Protein Urine Glucose (UA) Urine Ketones Urine Occult Blood Urine Nitrite Urine Bilirubin Urine Urobilinogen Ur Leukocyte Esterase Urine RBC Urine WBC Ur Squamous Epith Cells Urine Bacteria Urine Mucus 09/27/18 09/27/18 09/27/18 00:18 00:18 02:10 WBC RBC Hgb Hct MCV MCH MCHC RDW RDW Differential Plt Count MPV Immature Gran % (Auto) Neut % (Auto) Lymph % (Auto) [place] % (Auto) Eos % (Auto) Baso % (Auto) Absolute Neuts (auto) Absolute Lymphs (auto) Total Counted D-Dimer Quant (PE/DVT) Specimen Type Sample Site pH Bicarbonate Actual POC Total CO2 Base Excess O2 Saturation O2 % ABG pCO2 ABG pO2 Alexis Test Respiration Rate O2 Delivery Device Liter Flow EPAP IPAP Blood Gas Notified Whom Blood Gas Notified Time Sodium Potassium Chloride Carbon Dioxide Anion Gap BUN Creatinine Estim Creat Clear Calc Est GFR (MDRD) Af Amer Est GFR (MDRD) Non-Af BUN/Creatinine Ratio Glucose Lactic Acid 7.5 H* Calcium Phosphorus Magnesium Troponin I 0.070 H B-Natriuretic Peptide Urine Color Yellow Urine Clarity Clear Urine pH 5.0 Ur Specific [place] 1.025 Urine Protein 100 H Urine Glucose (UA) Normal Urine Ketones 5 H Urine Occult Blood 10 H Urine Nitrite Negative Urine Bilirubin 1 H Urine Urobilinogen 4 H Ur Leukocyte Esterase 25 H Urine RBC 0 SEEN Urine WBC 0-5 SEEN Ur Squamous Epith Cells 0-5 SEEN Urine Bacteria RARE Urine Mucus 0 SEEN 09/27/18 09/27/18 09/27/18 02:51 03:00 03:00 WBC RBC Hgb Hct MCV MCH MCHC RDW RDW Differential Plt Count MPV Immature Gran % (Auto) Neut % (Auto) Lymph % (Auto) [place] % (Auto) Eos % (Auto) Baso % (Auto) Absolute Neuts (auto) Absolute Lymphs (auto) Total Counted D-Dimer Quant (PE/DVT) Specimen Type ART Sample Site R Radial pH 7.39 Bicarbonate Actual 18.9 L POC Total CO2 20 Base Excess -6 L O2 Saturation 99 O2 % 30 ABG pCO2 31.6 L ABG pO2 154 H Alexis Test POS Respiration Rate 12 O2 Delivery Device Bi / C PAP Liter Flow EPAP 5 IPAP 10 [address] Whom [facility] Blood Gas Notified Time 246 Sodium Potassium Chloride Carbon Dioxide Anion Gap BUN Creatinine Estim Creat Clear Calc Est GFR (MDRD) Af Amer Est GFR (MDRD) Non-Af BUN/Creatinine Ratio Glucose Lactic Acid 3.2 H Calcium Phosphorus Magnesium Troponin I 0.067 H B-Natriuretic Peptide Urine Color Urine Clarity Urine pH Ur Specific [place] Urine Protein Urine Glucose (UA) Urine Ketones Urine Occult Blood Urine Nitrite Urine Bilirubin Urine Urobilinogen Ur Leukocyte Esterase Urine RBC Urine WBC Ur Squamous Epith Cells Urine Bacteria Urine Mucus 09/27/18 09/27/18 04:45 04:45 WBC 8.3 RBC 4.23 L Hgb 12.1 L Hct 37.3 L MCV 88.2 MCH 28.6 MCHC 32.4 RDW 15.1 H RDW Differential 47.9 H Plt Count 223 MPV 9.2 Immature Gran % (Auto) 0.400 Neut % (Auto) 94.7 H Lymph % (Auto) 3.4 L [place] % (Auto) 1.4 Eos % (Auto) 0.0 Baso % (Auto) 0.1 Absolute Neuts (auto) 7.9 H Absolute Lymphs (auto) 0.28 L Total Counted Not Reportable D-Dimer Quant (PE/DVT) Specimen Type Sample Site pH Bicarbonate Actual POC Total CO2 Base Excess O2 Saturation O2 % ABG pCO2 ABG pO2 Alexis Test Respiration Rate O2 Delivery Device Liter Flow EPAP IPAP Blood Gas Notified Whom Blood Gas Notified Time Sodium 140 Potassium 4.3 Chloride 106 Carbon Dioxide 20.0 L Anion Gap 14 BUN 19 H Creatinine 0.95 Estim Creat Clear Calc 80.00 Est GFR (MDRD) Af Amer 104 Est GFR (MDRD) Non-Af 86 BUN/Creatinine Ratio 20.0 Glucose 111 H Lactic Acid Calcium 8.0 L Phosphorus 3.3 Magnesium 1.8 Troponin I 0.063 H B-Natriuretic Peptide Urine Color Urine Clarity Urine pH Ur Specific [place] Urine Protein Urine Glucose (UA) Urine Ketones Urine Occult Blood Urine Nitrite Urine Bilirubin Urine Urobilinogen Ur Leukocyte Esterase Urine RBC Urine WBC Ur Squamous Epith Cells Urine Bacteria Urine Mucus Clinical Impression(s) from Imaging Studies Chest X-Ray 09/26/18 19:35 IMPRESSION: Left and minimal right basilar infiltrate without other major interval change. Electronically Signed: Vic Looney DO at 22:24 EST Tel [phone], Service support , Chest CTA 09/26/18 20:32 IMPRESSION: No demonstrated pulmonary embolism or arterial dissection. Bilateral groundglass opacities a nonspecific finding may be secondary to underlying edema. Atherosclerosis. Cardiomegaly. Stable enlarged mediastinal and hilar lymph nodes Electronically Signed: Sandra Craft MD at 22:05 EST Tel , Service support , Assessment/Plan Active and Suspected Problems (Last Reviewed 09/27/18 @ 02:25 by Marcus Mi MD) Septic shock (Acute) Septic shock (Acute) RECOMMENDATIONS: 1. Continue empiric antibiotics, steroids and bronchodilators 2. BiPAP breaks as tolerated 3. Okay to reinitiate Lasix therapy if able to take p.o. 4. Wean oxygen as tolerated 5. Continue to cycle troponins 6. Bedside swallow eval 7. Avoid benzodiazepines. Delirium protocol. IMPRESSIONS: 1. Acute hypoxic respiratory failure Unclear etiology at this time. Patient's initial ABG did show a PO2 of 118 on 3 L nasal cannula oxygen, but significant tachypnea was also noted. Patient was placed on BiPAP therapy with improvement in overall status. Differential diagnosis would include an acute exacerbation of COPD, acute on chronic congestive systolic heart failure or cor pulmonale. Patient does have significant emphysematous changes on CT scan of the chest indicating likely advanced disease. Patient has not had pulmonary function test for quantification and clarification of lung function. Will attempt BiPAP breaks. Patient may become progressively worse without lack of positive pressure. Await viral panel as this may be secondary to RSV or parainfluenza virus. 2. Elevated lactate Patient was significant elevation of lactates on presentation. Patient was significantly hypoxic and this may account for elevated lactate. Empiric antibiotics would be appropriate until further information is available. Patient was never documented as hypotensive, but did receive 30 cc/kg IV bolus. Patient's blood pressure has been stable at this time and lactate is improving. Okay to discontinue serial lactates. She may require IV Lasix for optimization. Electrolyte repletion as indicated. 3. Hypertension/possible acute on chronic systolic congestive heart failure/coronary artery disease/history of ICD Patient's blood pressure is adequate at this time. Patient is tachycardic and can likely be reinitiated on baseline cardiac medications. Defer to hospitalist on whether etiology should be involved. 4. Tobacco abuse/chronic anemia/history of noncompliance/delirium-metabolic encephalopathy Complicates care, management, recovery and prognosis. Patient did receive Ativan downstairs in the ER which may account for patient's current confusion. We will continue to avoid benzodiazepines if possible. ABG did not show significant CO2 retention to account for patient's current metabolic encephalopathy. We will continue to monitor closely. Delirium protocol. TIME: 32 minutes of critical care time spent addressing patient's acute respiratory failure, possible CHF, delirium, review of all data and collaboration with care team (6 AM to 8 AM) Code Visit 9xxxx: [id number] Critical care first hour
[2018-09-27 08:54] LABS: Lactic Acid 2.1 mmol/L (0.4-2.0)
[2018-09-27 10:25] LABS: M R Staph aureus DNA By PCR POSITIVE (Negative); Probe Check PASS
[2018-09-27] MEDS: Enoxaparin 40 MG/0.4 ML Syringe SC (10:30)
[2018-09-27] MEDS: Ceftriaxone 1 GM/50 ML BAG IV ×2 (10:36→21:07)
[2018-09-27] MEDS: Losartan Potassium 25 MG Tablet PO (12:27)
[2018-09-27] MEDS: Ascorbic Acid 500 MG Tablet PO (12:27)
[2018-09-27] MEDS: guaiFENesin 1,200 MG Tablet 1200 MG PO (12:27)
[2018-09-27] MEDS: Aspirin 81 MG TAB.CHEW PO (12:27)
[2018-09-27] MEDS: Ferrous Gluconate 324 MG Tablet PO (12:27)
[2018-09-27] MEDS: Clopidogrel Bisulfate 75 MG Tablet PO (12:27)
[2018-09-27] MEDS: Carvedilol 6.25 MG Tablet PO ×2 (13:59→21:07)
[2018-09-27] MEDS: 0.9% NaCl Peripheral Flush Adult/Peds IV ×2 (14:02→17:34)
--- NOTE | 2018-09-27 14:05 | CASEMGMT ---
Addendum entered by Myles Ku 09/27/18 18:02: 1600: Call placed to [facility]. They are in network with [facility] and they do come to [place]. Referral packet faxed to them. Spoke with Dr Uriarte who states anticipates pt will not be discharged over the weekend, as he just needed to go back on BIPAP. Another call placed to [facility] and they were made aware discharge not anticipated this weekend. CM to follow up with [facility] on Sunday. Original Note: RN SHELIA ASSESSMENT Re-admission note: Has had 2 admissions this past month. Admitted 08/27 for Acute on Chronic CHF, acute resp failure. Discharged home 08/28. Requested Oxygen on discharge but did not qualify per [facility] criteria. Denied other needs on discharge and was to F/U with [employer] and traveling engineer. Re-admitted 09/07 for Acute hypoxic resp insuff secondary to acute on chronic CHF. Per report, daughter states pt is non-compliant with taking prescribed medications. Discharged home on 09/08. Again, did not qualify for home oxygen. Stated wanted to pay for oxygen out of pocket and script sent home with pt. Denied other needs on discharge and was to f/u with Dr Mak the following day, PCP in 1 week, and Dr Ahmadi in 2-3 weeks. RN CM to room to talk with pt. Pt states he is wanting to move back to [place] where most of his family is. He states he has 2 brothers in [facility], [place], and [place], who is his POA, but states both of them are not well themselves and not able to help him very much. Discussed HHC with pt. He states is agreeable to HHC on discharge, stating, that would be a good idea. Pt states has no preference of HHC agency. Pt states he would be agreeable to nurse and therapy if needed. PT/OT evals pending. Pt states he did not follow up with any of his physicians after last admission, stating he did not have any transportation. Provided [facility] transportation information/contact number. Pt voiced appreciation. Pt states he still wants home Oxygen. Informed him Home oxygen testing can be completed again prior to discharge to determine if he qualifies. CM to follow for further discharge planning needs that may arise. Lyle SCHMITT RN CM
--- NOTE | 2018-09-27 16:41 | PCM.PROGNOTE ---
Patient Problems: Active and Suspected Problems (Last Reviewed 09/27/18 @ 02:25 by Marcus Mi MD) Septic shock (Acute) Septic shock (Acute) Subjective: Patient was seen and examined today in ICU, he is intermittently receiving BiPAP, vital signs appear stable at this time, patient is afebrile. Patient's white blood cell count today was 8.3, I talked briefly to pulmonary medicine about his care today, it does not appear that the patient's lactic acid elevation was indicative of sepsis at this time, he remains on Rocephin and Zithromax at this time however. Echocardiogram was obtained today which showed an EF of 15%, this is in line with previous echocardiograms that the patient has had at this facility. - Physical Exam General: Alert, Cooperative, No apparent distress, Well developed, Confused HEENT: Atraumatic, PERRLA, EOMI, Normocephalic Oral: Moist Mucosa Neck: Supple, No JVD, Negative Carotid Bruits, No Nuchal Rigidity, Trachea Midline, Thyroid Normal Size and Texture Lungs: Clear to auscultation, Diminished Cardiovascular: Regular rate, Regular Rhythm, Normal S1, Normal S2, No murmurs, No Ectopic Activity, PMI Normal, No rub noted Abdomen: Bowel Sounds Present, Soft, Non Tender, Non-Distended, No hernias noted Extremities: No clubbing, No cyanosis, Capillary Refill Less than 3 Seconds Skin: No rashes, No breakdown Musculoskeletal: No Tenderness to Palpation of Joints or Extremities Neurological: Cranial nerves II-XII grossly intact, Neuro grossly intact, Sensory exam intact to light touch and pain Psych/Mental Status: Flat Affect, - - Patient was alert but confused Vital Signs Temp Pulse Resp BP Pulse Ox 98.0 F 95 22 H 121/84 H 100 09/27/18 16:00 09/27/18 16:00 09/27/18 16:00 09/27/18 16:00 09/27/18 16:00 Oxygen Flow Rate (L/min) 2 Oxygen Delivery Method Bi-pap Weight: 69.5 kg Body Mass Index (BMI) 23.7 Intake and Output for Last 24 Hours 09/25/18 09/26/18 09/27/18 23:59 23:59 23:59 Intake Total 305 / 305 1812 / 1812 Output Total 700 / 700 Balance 305 / 305 1112 / 1112 Microbiology Past 72 Hours 09/26/18 19:50 Respiratory Panel (PCR) - Final Mucosa - Nasopharyngeal 09/27/18 02:10 Streptococcus pneumoniae Antigen (M - Final Urine Catheter - [place] 09/27/18 02:10 Legionella Antigen - Final Urine Catheter - [place] 09/26/18 19:50 Influenza Types A,B Direct FA (SHARON) - Final Mucosa - Nasopharyngeal Laboratory Tests Past 24 Hrs 09/26/18 09/26/18 09/26/18 18:40 19:30 19:30 WBC 8.1 RBC 4.44 L Hgb 12.4 L Hct 39.0 L MCV 87.8 MCH 27.9 MCHC 31.8 L RDW 15.1 H RDW Differential 48.6 H Plt Count 231 MPV 9.2 Immature Gran % (Auto) 0.200 Neut % (Auto) 74.8 H Lymph % (Auto) 18.0 L [place] % (Auto) 6.0 Eos % (Auto) 0.5 Baso % (Auto) 0.5 Absolute Neuts (auto) 6.1 Absolute Lymphs (auto) 1.46 Total Counted Not Reportable D-Dimer Quant (PE/DVT) 1.28 H* Specimen Type Sample Site pH Bicarbonate Actual POC Total CO2 Base Excess O2 Saturation O2 % ABG pCO2 ABG pO2 Alexis Test Respiration Rate O2 Delivery Device Liter Flow EPAP IPAP Blood Gas Notified Whom Blood Gas Notified Time Sodium Potassium Chloride Carbon Dioxide Anion Gap BUN Creatinine Estim Creat Clear Calc Est GFR (MDRD) Af Amer Est GFR (MDRD) Non-Af BUN/Creatinine Ratio Glucose Lactic Acid 2.7 H Calcium Phosphorus Magnesium Troponin I B-Natriuretic Peptide Urine Color Urine Clarity Urine pH Ur Specific [place] Urine Protein Urine Glucose (UA) Urine Ketones Urine Occult Blood Urine Nitrite Urine Bilirubin Urine Urobilinogen Ur Leukocyte Esterase Urine RBC Urine WBC Ur Squamous Epith Cells Urine Bacteria Urine Mucus MRSA (PCR) 09/26/18 09/26/18 09/26/18 19:30 19:30 23:16 WBC RBC Hgb Hct MCV MCH MCHC RDW RDW Differential Plt Count MPV Immature Gran % (Auto) Neut % (Auto) Lymph % (Auto) [place] % (Auto) Eos % (Auto) Baso % (Auto) Absolute Neuts (auto) Absolute Lymphs (auto) Total Counted D-Dimer Quant (PE/DVT) Specimen Type ART Sample Site R Radial pH 7.49 H Bicarbonate Actual 9.4 L POC Total CO2 10 Base Excess -14 L O2 Saturation 99 O2 % ABG pCO2 12.4 L* ABG pO2 113 H Alexis Test POS Respiration Rate O2 Delivery Device Nasal Can Liter Flow 3.0 EPAP IPAP Blood Gas Notified Whom ED MD Blood Gas Notified Time Sodium 137 Potassium 5.1 Chloride 104 Carbon Dioxide 24.0 Anion Gap 9 BUN 17 Creatinine 0.97 Estim Creat Clear Calc 75.34 Est GFR (MDRD) Af Amer 101 Est GFR (MDRD) Non-Af 84 BUN/Creatinine Ratio 17.5 Glucose 81 Lactic Acid Calcium 8.6 Phosphorus Magnesium Troponin I 0.070 H B-Natriuretic Peptide 2850.8 H Urine Color Urine Clarity Urine pH Ur Specific [place] Urine Protein Urine Glucose (UA) Urine Ketones Urine Occult Blood Urine Nitrite Urine Bilirubin Urine Urobilinogen Ur Leukocyte Esterase Urine RBC Urine WBC Ur Squamous Epith Cells Urine Bacteria Urine Mucus MRSA (PCR) 09/27/18 09/27/18 09/27/18 00:18 00:18 02:10 WBC RBC Hgb Hct MCV MCH MCHC RDW RDW Differential Plt Count MPV Immature Gran % (Auto) Neut % (Auto) Lymph % (Auto) [place] % (Auto) Eos % (Auto) Baso % (Auto) Absolute Neuts (auto) Absolute Lymphs (auto) Total Counted D-Dimer Quant (PE/DVT) Specimen Type Sample Site pH Bicarbonate Actual POC Total CO2 Base Excess O2 Saturation O2 % ABG pCO2 ABG pO2 Alexis Test Respiration Rate O2 Delivery Device Liter Flow EPAP IPAP Blood Gas Notified Whom Blood Gas Notified Time Sodium Potassium Chloride Carbon Dioxide Anion Gap BUN Creatinine Estim Creat Clear Calc Est GFR (MDRD) Af Amer Est GFR (MDRD) Non-Af BUN/Creatinine Ratio Glucose Lactic Acid 7.5 H* Calcium Phosphorus Magnesium Troponin I 0.070 H B-Natriuretic Peptide Urine Color Yellow Urine Clarity Clear Urine pH 5.0 Ur Specific [place] 1.025 Urine Protein 100 H Urine Glucose (UA) Normal Urine Ketones 5 H Urine Occult Blood 10 H Urine Nitrite Negative Urine Bilirubin 1 H Urine Urobilinogen 4 H Ur Leukocyte Esterase 25 H Urine RBC 0 SEEN Urine WBC 0-5 SEEN Ur Squamous Epith Cells 0-5 SEEN Urine Bacteria RARE Urine Mucus 0 SEEN MRSA (PCR) 09/27/18 09/27/18 09/27/18 02:51 03:00 03:00 WBC RBC Hgb Hct MCV MCH MCHC RDW RDW Differential Plt Count MPV Immature Gran % (Auto) Neut % (Auto) Lymph % (Auto) [place] % (Auto) Eos % (Auto) Baso % (Auto) Absolute Neuts (auto) Absolute Lymphs (auto) Total Counted D-Dimer Quant (PE/DVT) Specimen Type ART Sample Site R Radial pH 7.39 Bicarbonate Actual 18.9 L POC Total CO2 20 Base Excess -6 L O2 Saturation 99 O2 % 30 ABG pCO2 31.6 L ABG pO2 154 H Alexis Test POS Respiration Rate 12 O2 Delivery Device Bi / C PAP Liter Flow EPAP 5 IPAP 10 Blood Gas Notified Whom [facility] Blood Gas Notified Time 246 Sodium Potassium Chloride Carbon Dioxide Anion Gap BUN Creatinine Estim Creat Clear Calc Est GFR (MDRD) Af Amer Est GFR (MDRD) Non-Af BUN/Creatinine Ratio Glucose Lactic Acid 3.2 H Calcium Phosphorus Magnesium Troponin I 0.067 H B-Natriuretic Peptide Urine Color Urine Clarity Urine pH Ur Specific [place] Urine Protein Urine Glucose (UA) Urine Ketones Urine Occult Blood Urine Nitrite Urine Bilirubin Urine Urobilinogen Ur Leukocyte Esterase Urine RBC Urine WBC Ur Squamous Epith Cells Urine Bacteria Urine Mucus MRSA (PCR) 09/27/18 09/27/18 09/27/18 04:45 04:45 08:15 WBC 8.3 RBC 4.23 L Hgb 12.1 L Hct 37.3 L MCV 88.2 MCH 28.6 MCHC 32.4 RDW 15.1 H RDW Differential 47.9 H Plt Count 223 MPV 9.2 Immature Gran % (Auto) 0.400 Neut % (Auto) 94.7 H Lymph % (Auto) 3.4 L [place] % (Auto) 1.4 Eos % (Auto) 0.0 Baso % (Auto) 0.1 Absolute Neuts (auto) 7.9 H Absolute Lymphs (auto) 0.28 L Total Counted Not Reportable D-Dimer Quant (PE/DVT) Specimen Type Sample Site pH Bicarbonate Actual POC Total CO2 Base Excess O2 Saturation O2 % ABG pCO2 ABG pO2 Alexis Test Respiration Rate O2 Delivery Device Liter Flow EPAP IPAP Blood Gas Notified Whom Blood Gas Notified Time Sodium 140 Potassium 4.3 Chloride 106 Carbon Dioxide 20.0 L Anion Gap 14 BUN 19 H Creatinine 0.95 Estim Creat Clear Calc 80.00 Est GFR (MDRD) Af Amer 104 Est GFR (MDRD) Non-Af 86 BUN/Creatinine Ratio 20.0 Glucose 111 H Lactic Acid 2.1 H Calcium 8.0 L Phosphorus 3.3 Magnesium 1.8 Troponin I 0.063 H B-Natriuretic Peptide Urine Color Urine Clarity Urine pH Ur Specific [place] Urine Protein Urine Glucose (UA) Urine Ketones Urine Occult Blood Urine Nitrite Urine Bilirubin Urine Urobilinogen Ur Leukocyte Esterase Urine RBC Urine WBC Ur Squamous Epith Cells Urine Bacteria Urine Mucus MRSA (PCR) 09/27/18 08:40 WBC RBC Hgb Hct MCV MCH MCHC RDW RDW Differential Plt Count MPV Immature Gran % (Auto) Neut % (Auto) Lymph % (Auto) [place] % (Auto) Eos % (Auto) Baso % (Auto) Absolute Neuts (auto) Absolute Lymphs (auto) Total Counted D-Dimer Quant (PE/DVT) Specimen Type Sample Site pH Bicarbonate Actual POC Total CO2 Base Excess O2 Saturation O2 % ABG pCO2 ABG pO2 Alexis Test Respiration Rate O2 Delivery Device Liter Flow EPAP IPAP Blood Gas Notified Whom Blood Gas Notified Time Sodium Potassium Chloride Carbon Dioxide Anion Gap BUN Creatinine Estim Creat Clear Calc Est GFR (MDRD) Af Amer Est GFR (MDRD) Non-Af BUN/Creatinine Ratio Glucose Lactic Acid Calcium Phosphorus Magnesium Troponin I B-Natriuretic Peptide Urine Color Urine Clarity Urine pH Ur Specific [place] Urine Protein Urine Glucose (UA) Urine Ketones Urine Occult Blood Urine Nitrite Urine Bilirubin Urine Urobilinogen Ur Leukocyte Esterase Urine RBC Urine WBC Ur Squamous Epith Cells Urine Bacteria Urine Mucus MRSA (PCR) POSITIVE H Medical Necessity - Tobacco Use Smoking Status: Current every day smoker Tobacco Use: Cigarettes Assessment/Plan All Active Problems (Last Reviewed 09/27/18 @ 02:25 by Marcus Mi MD) Septic shock (Acute) Septic shock (Acute) Acute respiratory failure with hypoxemia (Acute) Acute bronchitis (Resolved) COPD exacerbation (Resolved) HCAP (healthcare-associated pneumonia) (Resolved) Hypotension (Resolved) MRSA (methicillin resistant Staphylococcus aureus) infection (Resolved) NSVT (nonsustained ventricular tachycardia) (Resolved) Near syncope (Resolved) #1 acute hypoxic respiratory failure-most probably at this time from acute on chronic systolic congestive heart failure, less likely at this point to be pneumonia-I discussed his care with pulmonary medicine, we will leave the patient on antibiotics at this time for another 24 hours and reassess whether he needs these antibiotics. In the meantime we will start IV Lasix and I have stopped some of the patient's p.o. medications which I do not believe he needs at this time and question whether he even takes them at home. Patient has been in multiple times this year for respiratory failure and congestive heart failure, I believe he is noncompliant with treatment. #2 elevated lactic acid-secondary to acute hypoxic respiratory failure, less likely to be secondary to septic shock #3 severe ischemic cardiomyopathy-EF 15% #4 pulmonary hypertension #5 noncompliance with medical regimen #6 hypertension #7 acute encephalopathy secondary to acute hypoxic respiratory failure and multiple medical problems, patient does not appear to be safe for p.o. intake at this time, he will be reassessed tomorrow #8 probable acute on chronic systolic congestive heart failure-again patient will be placed on IV Lasix at this time Code Visit Inpatient E&M: 17099 Subs Hosp L2
[2018-09-27] MEDS: Furosemide 20 MG/2 ML VIAL IV (17:34)
--- NOTE | 2018-09-27 19:35 | NURSING ---
Pt agitated and threatening to leave AMA. Dr. Mi paged and updated on situation. Dr. Mi came to see pt at bedside and Made patient aware he would allow him to have nectar thick liquids if he agreed to stay in the hospital until speech therapy sees him tomorrow. Pt agrees to stay for now. Will continue to monitor this shift.
--- NOTE | 2018-09-27 19:48 | PCM.PN.BLA ---
Progress Note Nursing staff reported that earlier on in the day patient was seen coughing with eating for which reason he was placed on n.p.o. status for speech to evaluate and make recommendations. Nursing staff reported that patient's alleged that he would leave the Hospital if he is not allowed to have anything to eat or drink. Patient was seen and examined. Patient reported that ever since he has been here he has not been allowed to have anything to eat or drink. He reports that he coughs chronically. Discussed with patient that he will be placed on thickened liquids from now on awaiting speech to eval. Patient will be placed on nectar thick liquids. Discussed with nursing staff.
[2018-09-27] MEDS: Atorvastatin Calcium 80 MG Tablet PO (21:07)
[2018-09-28] VITALS (31 sets, daily range): BP systolic 100–124; BP diastolic 61–87; PULSE 77–95; RESP 10–24; TEMP 36.2–36.6; O2SAT 94–100
[2018-09-28] MEDS: Ipratropium/Albuterol Sulfate 3 ML AMPUL.NEB INHALATION ×6 (02:20→23:37)
[2018-09-28 05:19] LABS: Absolute Neutrophil Count 8.1 X10^3/uL (2.0-7.7); Hematocrit 36.1 % (40-54); Hemoglobin 11.4 g/dl (13.0-16.5); Lymphocyte % 4.6 % (19-41); Mean Corp Hgb Conc 31.6 g/gl (32-36); Mean Corpuscular Hgb 27.4 pg (27.0-32.0); Mean Corpuscular Volume 86.8 fL (80-94); Mean Platelet Vol. 9.4 fl (6.2-12.0); Monocyte# 0.16 X10^3/uL; Monocyte% 1.9 % (0-10); Neutrophil # 8.07 X10^3/uL (2.7-7.7); Neutrophil % 93.4 % (47-70); Platelet Count 212 K/mm3 (150-450); RBC Distribution Width SD 47.3 fl (35.1-43.9); Red Blood Count 4.16 M/mm3 (4.6-6.2); White Blood Count 8.6 K/mm3 (4.4-11.0)
[2018-09-28 05:20] LABS: Differential Indicated SCAN CRITERIA MET; POSITIVE COUNT NO; POSITIVE DIFFERENTIAL YES; POSITIVE MORPHOLOGY NO
[2018-09-28 05:23] LABS: Anion Gap 10 (5-15); BUN 24 mg/dL (7-18); BUN/Creat Ratio 32.2 RATIO (10-20); Calcium,Total 7.6 mg/dL (8.5-10.1); Chloride 105 mmol/L (98-107); Creatinine, Serum 0.74 mg/dL (0.70-1.30); EST Glomerular Filtration Rate 114 mL/min (>60); Est Glom Filt Rate - Afr Amer 138 mL/min (>60); Glucose 150 mg/dL (74-106); Potassium 4.1 mmol/L (3.5-5.1); Sodium Level 139 mmol/L (136-145)
[2018-09-28 06:03] LABS: Anisocytosis 1+; Differential Comment SCANNED; Platelet Estimate ADEQUATE (ADEQ); Poikilocytosis RARE
--- NOTE | 2018-09-28 07:46 | PN_ITS ---
Subjective: Patient is much improved compared to yesterday. Patient has not required BiPAP therapy overnight and is tolerating room air. There was some concern for aspiration yesterday with thin liquids, so patient was made n.p.o. pending speech evaluation. Patient became upset overnight, so was given a modified diet. Patient is irritated with a modified diet this morning and is discussing the potential of leaving AMA. Patient is denying any chest pain at this time. General: Alert, Oriented x3, No apparent distress, Non-Cooperative, - - Appears much older than stated age. No conversational dyspnea appreciated. HEENT: Atraumatic, PERRLA, EOMI, Normocephalic, - - Slight scleral injection Oral: Moist Mucosa, No Gingival or Mucosal Lesions/ Ulcerations, - - Poor dentition Neck: Supple, No JVD, No Nodes, Trachea Midline Lungs: No rhonchi, No rales, Diminished, Wheezes, - - Symmetric expansion. No dullness to percussion. Cardiovascular: Regular rate, Regular Rhythm, Normal S1, Normal S2, Murmur, No rub noted, No Gallop Abdomen: Bowel Sounds Present, Soft, Non Tender, Non-Distended Extremities: No cyanosis, No edema, Capillary Refill Less than 3 Seconds, Clubbing Skin: No rashes, No breakdown Musculoskeletal: No Tenderness to Palpation of Joints or Extremities Lymphatic: No Cervical, Supraclavicular, or Inguinal Adenopathy Neurological: Cranial nerves II-XII grossly intact, Neuro grossly intact, Motor Exam 5/5 strength throughout Psych/Mental Status: Anxious, Impulsive, Restless Vital Signs Temp Pulse Resp BP Pulse Ox 36.4 C L 80 15 114/82 H 99 09/28/18 06:00 09/28/18 07:00 09/28/18 07:00 09/28/18 07:00 09/28/18 07:00 Oxygen Flow Rate (L/min) 2 Oxygen Delivery Method Room Air Weight: 71.3 kg Body Mass Index (BMI) 23.7 Intake and Output for Last 24 Hours 09/26/18 09/27/18 09/28/18 23:59 23:59 23:59 Intake Total 305 / 305 1932 / 1932 1513 / 1513 Output Total 1200 / 1200 400 / 400 Balance 305 / 305 732 / 732 1113 / 1113 Labs (Last 48 Hours) 09/26/18 09/26/18 09/26/18 18:40 19:30 19:30 WBC 8.1 RBC 4.44 L Hgb 12.4 L Hct 39.0 L MCV 87.8 MCH 27.9 MCHC 31.8 L RDW 15.1 H RDW Differential 48.6 H Plt Count 231 MPV 9.2 Immature Gran % (Auto) 0.200 Neut % (Auto) 74.8 H Lymph % (Auto) 18.0 L [place] % (Auto) 6.0 Eos % (Auto) 0.5 Baso % (Auto) 0.5 Absolute Neuts (auto) 6.1 Absolute Lymphs (auto) 1.46 Total Counted Not Reportable Differential Comment Platelet Estimate Poikilocytosis Anisocytosis D-Dimer Quant (PE/DVT) 1.28 H* Specimen Type Sample Site pH Bicarbonate Actual POC Total CO2 Base Excess O2 Saturation O2 % ABG pCO2 ABG pO2 Alexis Test Respiration Rate O2 Delivery Device Liter Flow EPAP IPAP Blood Gas Notified Whom Blood Gas Notified Time Sodium Potassium Chloride Carbon Dioxide Anion Gap BUN Creatinine Estim Creat Clear Calc Est GFR (MDRD) Af Amer Est GFR (MDRD) Non-Af BUN/Creatinine Ratio Glucose Lactic Acid 2.7 H Calcium Phosphorus Magnesium Troponin I B-Natriuretic Peptide Urine Color Urine Clarity Urine pH Ur Specific [place] Urine Protein Urine Glucose (UA) Urine Ketones Urine Occult Blood Urine Nitrite Urine Bilirubin Urine Urobilinogen Ur Leukocyte Esterase Urine RBC Urine WBC Ur Squamous Epith Cells Urine Bacteria Urine Mucus MRSA (PCR) 09/26/18 09/26/18 09/26/18 19:30 19:30 23:16 WBC RBC Hgb Hct MCV MCH MCHC RDW RDW Differential Plt Count MPV Immature Gran % (Auto) Neut % (Auto) Lymph % (Auto) [place] % (Auto) Eos % (Auto) Baso % (Auto) Absolute Neuts (auto) Absolute Lymphs (auto) Total Counted Differential Comment Platelet Estimate Poikilocytosis Anisocytosis D-Dimer Quant (PE/DVT) Specimen Type ART Sample Site R Radial pH 7.49 H Bicarbonate Actual 9.4 L POC Total CO2 10 Base Excess -14 L O2 Saturation 99 O2 % ABG pCO2 12.4 L* ABG pO2 113 H Alexis Test POS Respiration Rate O2 Delivery Device Nasal Can Liter Flow 3.0 EPAP IPAP Blood Gas Notified Whom ED MD Blood Gas Notified Time Sodium 137 Potassium 5.1 Chloride 104 Carbon Dioxide 24.0 Anion Gap 9 BUN 17 Creatinine 0.97 Estim Creat Clear Calc 75.34 Est GFR (MDRD) Af Amer 101 Est GFR (MDRD) Non-Af 84 BUN/Creatinine Ratio 17.5 Glucose 81 Lactic Acid Calcium 8.6 Phosphorus Magnesium Troponin I 0.070 H B-Natriuretic Peptide 2850.8 H Urine Color Urine Clarity Urine pH Ur Specific [place] Urine Protein Urine Glucose (UA) Urine Ketones Urine Occult Blood Urine Nitrite Urine Bilirubin Urine Urobilinogen Ur Leukocyte Esterase Urine RBC Urine WBC Ur Squamous Epith Cells Urine Bacteria Urine Mucus MRSA (PCR) 09/27/18 09/27/18 09/27/18 00:18 00:18 02:10 WBC RBC Hgb Hct MCV MCH MCHC RDW RDW Differential Plt Count MPV Immature Gran % (Auto) Neut % (Auto) Lymph % (Auto) [place] % (Auto) Eos % (Auto) Baso % (Auto) Absolute Neuts (auto) Absolute Lymphs (auto) Total Counted Differential Comment Platelet Estimate Poikilocytosis Anisocytosis D-Dimer Quant (PE/DVT) Specimen Type Sample Site pH Bicarbonate Actual POC Total CO2 Base Excess O2 Saturation O2 % ABG pCO2 ABG pO2 Alexis Test Respiration Rate O2 Delivery Device Liter Flow EPA IPAP Blood Gas Notified Whom Blood Gas Notified Time Sodium Potassium Chloride Carbon Dioxide Anion Gap BUN Creatinine Estim Creat Clear Calc Est GFR (MDRD) Af Amer Est GFR (MDRD) Non-Af BUN/Creatinine Ratio Glucose Lactic Acid 7.5 H* Calcium Phosphorus Magnesium Troponin I 0.070 H B-Natriuretic Peptide Urine Color Yellow Urine Clarity Clear Urine pH 5.0 Ur Specific [place] 1.025 Urine Protein 100 H Urine Glucose (UA) Normal Urine Ketones 5 H Urine Occult Blood 10 H Urine Nitrite Negative Urine Bilirubin 1 H Urine Urobilinogen 4 H Ur Leukocyte Esterase 25 H Urine RBC 0 SEEN Urine WBC 0-5 SEEN Ur Squamous Epith Cells 0-5 SEEN Urine Bacteria RARE Urine Mucus 0 SEEN MRSA (PCR) 09/27/18 09/27/18 09/27/18 02:51 03:00 03:00 WBC RBC Hgb Hct MCV MCH MCHC RDW RDW Differential Plt Count MPV Immature Gran % (Auto) Neut % (Auto) Lymph % (Auto) [place] % (Auto) Eos % (Auto) Baso % (Auto) Absolute Neuts (auto) Absolute Lymphs (auto) Total Counted Differential Comment Platelet Estimate Poikilocytosis Anisocytosis D-Dimer Quant (PE/DVT) Specimen Type ART Sample Site R Radial pH 7.39 Bicarbonate Actual 18.9 L POC Total CO2 20 Base Excess -6 L O2 Saturation 99 O2 % 30 ABG pCO2 31.6 L ABG pO2 154 H Alexis Test POS Respiration Rate 12 O2 Delivery Device Bi / C PAP Liter Flow EPAP 5 IPAP 10 Blood Gas Notified Whom [facility] Blood Gas Notified Time 246 Sodium Potassium Chloride Carbon Dioxide Anion Gap BUN Creatinine Estim Creat Clear Calc Est GFR (MDRD) Af Amer Est GFR (MDRD) Non-Af BUN/Creatinine Ratio Glucose Lactic Acid 3.2 H Calcium Phosphorus Magnesium Troponin I 0.067 H B-Natriuretic Peptide Urine Color Urine Clarity Urine pH Ur Specific [place] Urine Protein Urine Glucose (UA) Urine Ketones Urine Occult Blood Urine Nitrite Urine Bilirubin Urine Urobilinogen Ur Leukocyte Esterase Urine RBC Urine WBC Ur Squamous Epith Cells Urine Bacteria Urine Mucus MRSA (PCR) 09/27/18 09/27/18 09/27/18 04:45 04:45 08:15 WBC 8.3 RBC 4.23 L Hgb 12.1 L Hct 37.3 L MCV 88.2 MCH 28.6 MCHC 32.4 RDW 15.1 H RDW Differential 47.9 H Plt Count 223 MPV 9.2 Immature Gran % (Auto) 0.400 Neut % (Auto) 94.7 H Lymph % (Auto) 3.4 L [place] % (Auto) 1.4 Eos % (Auto) 0.0 Baso % (Auto) 0.1 Absolute Neuts (auto) 7.9 H Absolute Lymphs (auto) 0.28 L Total Counted Not Reportable Differential Comment Platelet Estimate Poikilocytosis Anisocytosis D-Dimer Quant (PE/DVT) Specimen Type Sample Site pH Bicarbonate Actual POC Total CO2 Base Excess O2 Saturation O2 % ABG pCO2 ABG pO2 Alexis Test Respiration Rate O2 Delivery Device Liter Flow EPAP IPAP Blood Gas Notified Whom Blood Gas Notified Time Sodium 140 Potassium 4.3 Chloride 106 Carbon Dioxide 20.0 L Anion Gap 14 BUN 19 H Creatinine 0.95 Estim Creat Clear Calc 80.00 Est GFR (MDRD) Af Amer 104 Est GFR (MDRD) Non-Af 86 BUN/Creatinine Ratio 20.0 Glucose 111 H Lactic Acid 2.1 H Calcium 8.0 L Phosphorus 3.3 Magnesium 1.8 Troponin I 0.063 H B-Natriuretic Peptide Urine Color Urine Clarity Urine pH Ur Specific [place] Urine Protein Urine Glucose (UA) Urine Ketones Urine Occult Blood Urine Nitrite Urine Bilirubin Urine Urobilinogen Ur Leukocyte Esterase Urine RBC Urine WBC Ur Squamous Epith Cells Urine Bacteria Urine Mucus MRSA (PCR) 09/27/18 09/28/18 09/28/18 08:40 05:00 05:00 WBC 8.6 RBC 4.16 L Hgb 11.4 L Hct 36.1 L MCV 86.8 MCH 27.4 MCHC 31.6 L RDW 15.0 H RDW Differential 47.3 H Plt Count 212 MPV 9.4 Immature Gran % (Auto) 0.100 Neut % (Auto) 93.4 H Lymph % (Auto) 4.6 L [place] % (Auto) 1.9 Eos % (Auto) 0.0 Baso % (Auto) 0.0 Absolute Neuts (auto) 8.1 H Absolute Lymphs (auto) 0.40 L Total Counted Not Reportable Differential Comment SCANNED Platelet Estimate ADEQUATE Poikilocytosis RARE Anisocytosis 1+ D-Dimer Quant (PE/DVT) Specimen Type Sample Site pH Bicarbonate Actual POC Total CO2 Base Excess O2 Saturation O2 % ABG pCO2 ABG pO2 Alexis Test Respiration Rate O2 Delivery Device Liter Flow EPAP IPAP Blood Gas Notified Whom Blood Gas Notified Time Sodium 139 Potassium 4.1 Chloride 105 Carbon Dioxide 24.0 Anion Gap 10 BUN 24 H Creatinine 0.74 Estim Creat Clear Calc 102.70 Est GFR (MDRD) Af Amer 138 Est GFR (MDRD) Non-Af 114 BUN/Creatinine Ratio 32.2 H Glucose 150 H Lactic Acid Calcium 7.6 L Phosphorus Magnesium Troponin I B-Natriuretic Peptide Urine Color Urine Clarity Urine pH Ur Specific [place] Urine Protein Urine Glucose (UA) Urine Ketones Urine Occult Blood Urine Nitrite Urine Bilirubin Urine Urobilinogen Ur Leukocyte Esterase Urine RBC Urine WBC Ur Squamous Epith Cells Urine Bacteria Urine Mucus MRSA (PCR) POSITIVE H Microbiology 09/26/18 19:50 Mucosa - Nasopharyngeal Respiratory Panel (PCR) - Final 09/27/18 02:10 Urine Catheter - [place] Streptococcus pneumoniae Antigen (M - Final 09/27/18 02:10 Urine Catheter - [place] Legionella Antigen - Final 09/26/18 19:50 Mucosa - Nasopharyngeal Influenza Types A,B Direct FA (SHARON) - Final Medical Necessity - Tobacco Use Smoking Status: Current every day smoker Tobacco Use: Cigarettes Assessment/Plan All Active Problems (Last Reviewed 09/27/18 @ 02:25 by Marcus Mi MD) Septic shock (Acute) Septic shock (Acute) Acute respiratory failure with hypoxemia (Acute) Acute bronchitis (Resolved) COPD exacerbation (Resolved) HCAP (healthcare-associated pneumonia) (Resolved) Hypotension (Resolved) MRSA (methicillin resistant Staphylococcus aureus) infection (Resolved) NSVT (nonsustained ventricular tachycardia) (Resolved) Near syncope (Resolved) RECOMMENDATIONS: 1. Discontinue antibiotics and steroids. Will continue bronchodilators 2. BiPAP for rescue 3. Okay to reinitiate Lasix therapy if able to take p.o. 4. Wean oxygen as tolerated 5. Bedside swallow eval 6. Avoid benzodiazepines. Delirium protocol. IMPRESSIONS: 1. Acute hypoxic respiratory failure Unclear etiology at this time. Patient's initial ABG did show a PO2 of 118 on 3 L nasal cannula oxygen, but significant tachypnea was also noted. Patient was placed on BiPAP therapy with improvement in overall status. Patient was significant improvement in respiratory status over the course of 24 hours. This would favor acute on chronic systolic congestive heart failure as an etiology. Patient does not have any significant leukocytosis despite the use of steroids and has had no fever. Will discontinue IV steroids and antibiotics. Initiate patient on Pulmicort therapy. There was a question of aspiration raised yesterday, but this may have been secondary to depressed mental status. Speech therapy has been consulted for recommendations. 2. Elevated lactate Patient was significant elevation of lactates on presentation. Patient was significantly hypoxic and this may account for elevated lactate. Empiric antibiotics would be appropriate until further information is available. Patient's blood pressure has remained stable. IV Lasix was initiated overnight with improvement in status. 3. Hypertension/possible acute on chronic systolic congestive heart failure/coronary artery disease/history of ICD Patient's blood pressure is adequate at this time. Patient is tachycardic and can likely be reinitiated on baseline cardiac medications. Defer to hospitalist on whether cardiology should be involved. 4. Tobacco abuse/chronic anemia/history of noncompliance/delirium-metabolic encephalopathy Complicates care, management, recovery and prognosis. Patient's mental status is much improved at this time. Patient has had multiple presentations with leaving AMA over the last 3 months. This is likely complicating his long- term prognosis. Code Visit Inpatient E&M: 69524 Subs Hosp L3
[2018-09-28] MEDS: Aspirin 81 MG TAB.CHEW PO (09:12)
[2018-09-28] MEDS: Clopidogrel Bisulfate 75 MG Tablet PO (09:12)
[2018-09-28] MEDS: Losartan Potassium 25 MG Tablet PO (09:12)
[2018-09-28] MEDS: Furosemide 20 MG/2 ML VIAL IV ×2 (09:12→17:11)
[2018-09-28] MEDS: Carvedilol 6.25 MG Tablet PO ×2 (09:12→21:47)
[2018-09-28] MEDS: Budesonide Respules 0.5 MG/2 ML AMPUL.NEB. INHALATION (10:31)
[2018-09-28] MEDS: 0.9% NaCl Peripheral Flush Adult/Peds IV (17:11)
--- NOTE | 2018-09-28 19:04 | PCM.PROGNOTE ---
Patient Problems: Active and Suspected Problems (Last Reviewed 09/27/18 @ 02:25 by Marcus Mi MD) Septic shock (Acute) Septic shock (Acute) Subjective: Patient was seen and examined today, according to pulmonary medicine's notes today the patient's antibiotics were stopped, it appears that the patient's respiratory failure was probably due to decompensated congestive heart failure. Patient is alert today, he appears stable for transfer to PCU. - Physical Exam General: Alert, Oriented x3, Cooperative, No apparent distress, Well developed HEENT: Atraumatic, PERRLA, EOMI, Normocephalic Oral: Moist Mucosa Neck: Supple, Trachea Midline, Thyroid Normal Size and Texture Lungs: No wheeze, No rales, Diminished, Rhonchi - Scattered rhonchi bilaterally Cardiovascular: Regular rate, Regular Rhythm, Normal S1, Normal S2, No murmurs, No Ectopic Activity Abdomen: Bowel Sounds Present, Soft, Non Tender, Non-Distended Extremities: No edema, Capillary Refill Less than 3 Seconds Skin: No rashes, No breakdown Musculoskeletal: No Tenderness to Palpation of Joints or Extremities Neurological: Cranial nerves II-XII grossly intact, Neuro grossly intact, Sensory exam intact to light touch and pain Psych/Mental Status: Normal Affect, Appropriate, Alert and oriented to time, place, person, mood and affect Vital Signs Temp Pulse Resp BP Pulse Ox 97.7 F L 79 18 103/61 97 09/28/18 14:00 09/28/18 15:27 09/28/18 15:27 09/28/18 14:00 09/28/18 14:00 Oxygen Flow Rate (L/min) 2 Oxygen Delivery Method Nasal Cannula Weight: 71.3 kg Body Mass Index (BMI) 23.7 Intake and Output for Last 24 Hours 09/26/18 09/27/18 09/28/18 23:59 23:59 23:59 Intake Total 305 / 305 1932 / 1932 2518 / 2518 Output Total 1200 / 1200 1200 / 1200 Balance 305 / 305 732 / 732 1318 / 1318 Microbiology Past 72 Hours 09/27/18 02:10 Urine Culture - Final Urine, Clean Catch Mixed Gram Positive Organisms 09/26/18 19:50 Respiratory Panel (PCR) - Final Mucosa - Nasopharyngeal 09/27/18 02:10 Streptococcus pneumoniae Antigen (M - Final Urine Catheter - [place] 09/27/18 02:10 Legionella Antigen - Final Urine Catheter - [place] 09/26/18 19:50 Influenza Types A,B Direct FA (SHARON) - Final Mucosa - Nasopharyngeal Laboratory Tests Past 24 Hrs 09/28/18 09/28/18 05:00 05:00 WBC 8.6 RBC 4.16 L Hgb 11.4 L Hct 36.1 L MCV 86.8 MCH 27.4 MCHC 31.6 L RDW 15.0 H RDW Differential 47.3 H Plt Count 212 MPV 9.4 Immature Gran % (Auto) 0.100 Neut % (Auto) 93.4 H Lymph % (Auto) 4.6 L [place] % (Auto) 1.9 Eos % (Auto) 0.0 Baso % (Auto) 0.0 Absolute Neuts (auto) 8.1 H Absolute Lymphs (auto) 0.40 L Total Counted Not Reportable Differential Comment SCANNED Platelet Estimate ADEQUATE Poikilocytosis RARE Anisocytosis 1+ Sodium 139 Potassium 4.1 Chloride 105 Carbon Dioxide 24.0 Anion Gap 10 BUN 24 H Creatinine 0.74 Estim Creat Clear Calc 102.70 Est GFR (MDRD) Af Amer 138 Est GFR (MDRD) Non-Af 114 BUN/Creatinine Ratio 32.2 H Glucose 150 H Calcium 7.6 L Medical Necessity - Tobacco Use Smoking Status: Current every day smoker Tobacco Use: Cigarettes Assessment/Plan All Active Problems (Last Reviewed 09/27/18 @ 02:25 by Marcus Mi MD) Septic shock (Acute) Septic shock (Acute) Acute respiratory failure with hypoxemia (Acute) Acute bronchitis (Resolved) COPD exacerbation (Resolved) HCAP (healthcare-associated pneumonia) (Resolved) Hypotension (Resolved) MRSA (methicillin resistant Staphylococcus aureus) infection (Resolved) NSVT (nonsustained ventricular tachycardia) (Resolved) Near syncope (Resolved) #1 acute hypoxic respiratory failure-most probably at this time from acute on chronic systolic congestive heart failure, less likely at this point to be pneumonia-patient will be transferred to PCU, I will continue IV Lasix and repeat the patient's chest x-ray tomorrow morning #2 elevated lactic acid-secondary to acute hypoxic respiratory failure, less likely to be secondary to septic shock #3 severe ischemic cardiomyopathy-EF 15% #4 pulmonary hypertension #5 noncompliance with medical regimen #6 hypertension #7 acute encephalopathy secondary to acute hypoxic respiratory failure and multiple medical problems, patient is more alert today and appears safe for oral intake #8 probable acute on chronic systolic congestive heart failure-again patient will remain on IV Lasix at this time I have doubts that the patient is fully compliant with his home medications, he has been admitted several times to the hospital this year. Code Visit Inpatient E&M: [id number] Subs Hosp L2
[2018-09-28] MEDS: Isosorbide Mononitrate 30 MG Tablet PO (20:08)
[2018-09-28] MEDS: Atorvastatin Calcium 80 MG Tablet PO (21:47)
[2018-09-28] MEDS: Ondansetron 4 MG/2 ML Vial IV (21:51)
[2018-09-28] MEDS: MELATONIN 10 MG TABLET 5 MG PO (22:56)
[2018-09-29] VITALS (10 sets, daily range): BP systolic 115–138; BP diastolic 74–84; PULSE 75–88; RESP 16–18; TEMP 36.3–36.4; O2SAT 95–100
--- NOTE | 2018-09-29 06:25 | RAD_ITS ---
STUDY: X-RAY CHEST REASON FOR EXAM: Male, 58 years old. Shortness of breath TECHNIQUE: PA and lateral views of the chest. COMPARISON: September 26, 2018 chest x-ray FINDINGS: There is a left-sided pacer defibrillator. The lung markings are relatively stable when compared to prior study. There are minimal increased linear densities in the lung bases suggesting fibrotic change. There is no demonstrated pleural abnormality. There is a left cardiac border stent. Normal mediastinum and alberto. Normal visualized pulmonary arteries. There is atherosclerotic calcification of the aortic arch with tortuosity. There are diffuse degenerative changes of the visualized thoracic spine. Normal visualized ribs, clavicles, and shoulders. There is no demonstrated abnormality of the visualized soft tissue structures of the upper abdomen. RAD/Chest PA and Lateral IMPRESSION: Stable chest no evidence of acute focal infiltrate. Electronically Signed: Elizabeth Welsh MD at 9:03 EST Tel , Service support ,
[2018-09-29 06:48] LABS: Absolute Neutrophil Count 11.5 X10^3/uL (2.0-7.7); Eosinophils% 0.8 % (0-5); Hematocrit 35.4 % (40-54); Hemoglobin 11.1 g/dl (13.0-16.5); Lymphocyte % 4.8 % (19-41); Mean Corp Hgb Conc 31.4 g/gl (32-36); Mean Corpuscular Hgb 27.7 pg (27.0-32.0); Mean Corpuscular Volume 88.3 fL (80-94); Mean Platelet Vol. 9.6 fl (6.2-12.0); Monocyte# 0.39 X10^3/uL; Monocyte% 3.1 % (0-10); Neutrophil % 91.2 % (47-70); Platelet Count 236 K/mm3 (150-450); RBC Distribution Width CV 15.1 % (11.6-14.6); RBC Distribution Width SD 48.4 fl (35.1-43.9); Red Blood Count 4.01 M/mm3 (4.6-6.2); White Blood Count 12.6 K/mm3 (4.4-11.0)
[2018-09-29 06:54] LABS: Differential Indicated SCAN CRITERIA MET; POSITIVE COUNT NO; POSITIVE DIFFERENTIAL YES; POSITIVE MORPHOLOGY NO
[2018-09-29 07:05] LABS: Anion Gap 11 (5-15); BUN 33 mg/dL (7-18); BUN/Creat Ratio 36.9 RATIO (10-20); Calcium,Total 7.5 mg/dL (8.5-10.1); Chloride 103 mmol/L (98-107); Creatinine, Serum 0.89 mg/dL (0.70-1.30); EST Glomerular Filtration Rate 92 mL/min (>60); Est Glom Filt Rate - Afr Amer 112 mL/min (>60); Estimated Creatinine Clearance 85.39 ml/min; Glucose 144 mg/dL (74-106); Potassium 4.6 mmol/L (3.5-5.1); Sodium Level 137 mmol/L (136-145)
[2018-09-29] MEDS: Ipratropium/Albuterol Sulfate 3 ML AMPUL.NEB INHALATION ×2 (07:05→10:55)
[2018-09-29] MEDS: Budesonide Respules 0.5 MG/2 ML AMPUL.NEB. INHALATION (07:05)
[2018-09-29 07:08] LABS: Differential Comment SCANNED
[2018-09-29 10:25] LABS: Bedside Glucose 206 mg/dL (70-110)
--- NOTE | 2018-09-29 10:59 | PN_ITS ---
Patient Problems: Active and Suspected Problems (Last Reviewed 09/27/18 @ 02:25 by Marcus Mi MD) Septic shock (Acute) Septic shock (Acute) Subjective: Patient transferred out of the intensive care unit yesterday. Patient subjectively improved compared to previous. Still requiring minimal nasal cannula oxygen to maintain saturations while sleeping. Patient feels he is approaching his baseline. Objective: Chest x-ray was personally reviewed and shows no acute infiltrate or pleural effusions - Physical Exam General: Alert, Oriented x3, Cooperative, No apparent distress, - - Appears older than stated age. Speaking in full sentences HEENT: Atraumatic, PERRLA, EOMI, Normocephalic, - - No scleral icterus or injection noted Oral: Moist Mucosa, No Gingival or Mucosal Lesions/ Ulcerations Neck: Supple, No JVD, No Nodes, Trachea Midline Lungs: No rhonchi, No wheeze, No rales, Diminished, - - Symmetric expansion. No dullness to percussion. Cardiovascular: Normal S1, Normal S2, Irregular Rate, Murmur, No rub noted, No Gallop Abdomen: Bowel Sounds Present, Soft, Non Tender, Non-Distended Extremities: No cyanosis, Capillary Refill Less than 3 Seconds, Clubbing Skin: - - No significant change compared to previous Musculoskeletal: No Tenderness to Palpation of Joints or Extremities Lymphatic: No Cervical, Supraclavicular, or Inguinal Adenopathy Neurological: Cranial nerves II-XII grossly intact, Neuro grossly intact, Motor Exam 5/5 strength throughout Psych/Mental Status: Alert and oriented to time, place, person, mood and affect Vital Signs Temp Pulse Resp BP Pulse Ox 36.3 C L 84 18 115/75 100 09/29/18 09:43 09/29/18 09:43 09/29/18 09:43 09/29/18 09:43 09/29/18 10:25 Oxygen Flow Rate (L/min) 2 Oxygen Delivery Method Room Air Weight: 73.6 kg Body Mass Index (BMI) 23.7 Intake and Output for Last 24 Hours 09/27/18 09/28/18 09/29/18 23:59 23:59 23:59 Intake Total 1932 / 1932 3118 / 3118 240 / 240 Output Total 1200 / 1200 1650 / 1650 Balance 732 / 732 1468 / 1468 240 / 240 Microbiology Past 72 Hours 12/27/18 19:35 Blood Culture - Preliminary Blood Culture (Wb) #2 - No Site/Description Given No growth in 48 hours. 09/26/18 19:40 Blood Culture - Preliminary Blood Culture (Wb) - Anticubital Right No growth in 48 hours. 09/27/18 02:10 Urine Culture - Final Urine, Clean Catch Mixed Gram Positive Organisms 09/26/18 19:50 Respiratory Panel (PCR) - Final Mucosa - Nasopharyngeal 09/27/18 02:10 Streptococcus pneumoniae Antigen (M - Final Urine Catheter - [place] 09/27/18 02:10 Legionella Antigen - Final Urine Catheter - [place] 09/26/18 19:50 Influenza Types A,B Direct FA (SHARON) - Final Mucosa - Nasopharyngeal Laboratory Tests Past 24 Hrs 09/29/18 09/29/18 05:10 05:10 WBC 12.6 H RBC 4.01 L Hgb 11.1 L Hct 35.4 L MCV 88.3 MCH 27.7 MCHC 31.4 L RDW 15.1 H RDW Differential 48.4 H Plt Count 236 MPV 9.6 Immature Gran % (Auto) 0.100 Neut % (Auto) 91.2 H Lymph % (Auto) 4.8 L [place] % (Auto) 3.1 Eos % (Auto) 0.8 Baso % (Auto) 0.0 Absolute Neuts (auto) 11.5 H Absolute Lymphs (auto) 0.60 L Total Counted Not Reportable Differential Comment SCANNED Sodium 137 Potassium 4.6 Chloride 103 Carbon Dioxide 23.0 Anion Gap 11 BUN 33 H Creatinine 0.89 Estim Creat Clear Calc 85.39 Est GFR (MDRD) Af Amer 112 Est GFR (MDRD) Non-Af 92 BUN/Creatinine Ratio 36.9 H Glucose 144 H Calcium 7.5 L POC Glucose 09/29/18 10:20 POC Glucose 206 H Clinical Impression(s) from Imaging Studies Chest X-Ray 09/29/18 06:25 IMPRESSION: Stable chest no evidence of acute focal infiltrate. Electronically Signed: Elizabeth Welsh MD at 9:03 EST Tel , Service support , Medical Necessity - Tobacco Use Smoking Status: Current every day smoker Tobacco Use: Cigarettes Assessment/Plan All Active Problems (Last Reviewed 09/27/18 @ 02:25 by Marcus Mi MD) Septic shock (Acute) Septic shock (Acute) Acute respiratory failure with hypoxemia (Acute) Acute bronchitis (Resolved) COPD exacerbation (Resolved) HCAP (healthcare-associated pneumonia) (Resolved) Hypotension (Resolved) MRSA (methicillin resistant Staphylococcus aureus) infection (Resolved) NSVT (nonsustained ventricular tachycardia) (Resolved) Near syncope (Resolved) RECOMMENDATIONS: 1. Discontinue antibiotics and steroids. Will continue bronchodilators and Pulmicort 2. BiPAP for rescue 3. Okay to reinitiate Lasix therapy by mouth from my perspective 4. Wean oxygen as tolerated 5. Avoid benzodiazepines. Delirium protocol. IMPRESSIONS: 1. Acute hypoxic respiratory failure Unclear etiology at this time. Patient's initial ABG did show a PO2 of 118 on 3 L nasal cannula oxygen, but significant tachypnea was also noted. Patient was placed on BiPAP therapy with improvement in overall status. Patient was significant improvement in respiratory status over the course of 24 hours. This would favor acute on chronic systolic congestive heart failure as an etiology. Patient appears to be tolerating cessation of antibiotics and steroids well. Patient is back on a full diet and tolerating well. 2. Elevated lactate Patient was significant elevation of lactates on presentation. Patient was significantly hypoxic and this may account for elevated lactate. Empiric antibiotics would be appropriate until further information is available. Patient's blood pressure has remained stable. Patient can likely be reinitiated on Lasix at previous home dosage. 3. Hypertension/possible acute on chronic systolic congestive heart failure/coronary artery disease/history of ICD Patient's blood pressure is adequate at this time. Patient is tachycardic and can likely be reinitiated on baseline cardiac medications. Defer to hospitalist on whether cardiology should be involved. Stressed the importance of a low-salt diet, but patient appears to be pre-contemplative. 4. Tobacco abuse/chronic anemia/history of noncompliance/delirium-metabolic encephalopathy Complicates care, management, recovery and prognosis. Patient's mental status is much improved at this time. Patient has had multiple presentations with leaving AMA over the last 3 months. This is likely complicating his long- term prognosis. Code Visit Inpatient E&M: 35394 Subs Hosp L2
--- NOTE | 2018-09-29 11:59 | PCM.DC ---
- Discharge Diagnoses Current Active Problems: Current Active and Chronic Problems (Last Reviewed 09/27/18 @ 02:25 by Marcus Mi MD) Septic shock (Acute) Septic shock (Acute) COPD with acute exacerbation (Chronic) You will use the following diet at home:: No restrictions Your food should be the consistency of: Regular Your liquids should be the consistency of: Regular/Thin Discharge Activity: Return to Normal Activity Weight Bearing Status: Full weight bearing Allergies/Adverse Reactions: Allergies No Known Allergies Allergy (Verified 09/26/18 19:22) Medications to take at Discharge Nitroglycerin [Nitrostat] 0.4 mg SUBLINGUAL Q5M PRN #1 bottle 12/14/17 aspirin 81 mg chewable tablet 81 mg PO DAILY@0800 #30 tab.chew 01/11/18 atorvastatin 80 mg tablet 80 mg PO QHS #30 tab 01/11/18 carvedilol 6.25 mg tablet 6.25 mg PO BID #60 tab 01/11/18 clopidogrel 75 mg tablet 75 mg PO DAILY #30 tab 01/11/18 isosorbide mononitrate ER 30 mg tablet,extended release 24 hr 30 mg PO DAILY #30 tab 01/11/18 losartan 25 mg tablet 25 mg PO DAILY #30 tab 01/11/18 potassium chloride ER 20 mEq tablet,extended release(part/cryst) 20 meq PO DAILY #30 tab 01/11/18 ferrous gluconate 324 mg (37.5 mg iron) tablet 325 mg PO BIDCM #60 tab 01/15/18 Acetaminophen [Tylenol Tablet] 650 mg PO Q6H PRN PRN tablet 08/05/18 Gabapentin [Neurontin] 600 mg PO QHS 08/27/18 Furosemide [Lasix] 40 mg PO BID #60 tab 09/08/18 Nicotine [Nicoderm] 14 mg TRANSDERM. DAILY #14 patch 09/08/18 Acetaminophen [Tylenol Tablet] 650 mg PO Q6H PRN PRN tablet 09/29/18 Albuterol Inhaler [Ventolin Hfa (SP)] 2 puff INHALATION Q6H PRN PRN #1 inhaler 09/29/18 The following prescriptions were given: Albuterol Inhaler [Ventolin Hfa (SP)] 2 puff INHALATION Q6H PRN PRN #1 inhaler PRN Reason: Shortness Of Breath Primary Care Physician: Jere,Berna, SCALE OPERATOR-C [Primary Care Provider] - Please follow up with your Primary Care Physician in: in 2 weeks Test Results: Test results from this visit will be discussed in further detail at your follow-up appointment, if applicable. Please Follow Up With: Bradford Mak MD When: at next visit
--- NOTE | 2018-09-30 10:25 | CASEMGMT ---
GILL BASS NOTE: Call placed to [facility]. GILL BASS was informed by HENNYA, that pt was approved for [facility] and that start of care was approved for 09-28-18. They were made aware pt was not discharged until yesterday 09/29/18. They are aware pt does not have a phone, but his brother/POA, Angel, does have a phone number listed and is on demographic sheet. [facility] stated they would try to contact Angel to get in touch with pt so they can begin HHC services. Discharge instructions faxed to JANEEN @ . Fax confirmation received that faxed info went through successfully. Lyle SCHMITT RN, CM
--- NOTE | 2018-09-30 17:59 | PCM.DC.SUM ---
Discharge Date and Diagnosis Date of Admission: 09/26/18 Date of Discharge: 09/29/18 - Primary Discharge Diagnosis 1 acute hypoxic respiratory failure-secondary to acute on chronic systolic congestive heart failure #2 elevated lactic acid-secondary to acute hypoxic respiratory failure #3 severe ischemic cardiomyopathy-EF 15% #4 pulmonary hypertension #5 noncompliance with medical regimen #6 hypertension #7 acute metabolic encephalopathy secondary to acute hypoxic respiratory failure and multiple medical problems #8 acute on chronic systolic congestive heart failure #9 coronary artery disease #10 chronic obstructive pulmonary disease - Secondary Discharge Diagnosis Chronic Problems (Last Reviewed 09/27/18 @ 02:25 by Marcus Mi MD) COPD with acute exacerbation (Chronic) Elevated troponin (Chronic) ICD (implantable cardioverter-defibrillator) in place (Chronic) History of coronary artery stent placement (Chronic) PCI-RCA and CX Atherosclerosis of coronary artery of [place] heart without angina pectoris (Chronic) LEFT HEART ASSESSMENT Left Ventricular Ejection Fraction: by LV Gram 10-15 % Global Hypokinesis - Severe Depressed Left Ventricular systolic function Normal Left Ventricular End Diastolic Pressure LEFT MAIN: Non-obstructive LEFT ANTERIOR DECENDING ARTERY: Previously placed stent is patent DIAGONAL 1: Ostial - Mild luminal irregularities less than 30% DIAGONAL 2: Proximal - Non-obstructive CIRCUMFLEX ARTERY: MID CIRC: Previously placed stent is patent RIGHT CORONARY ARTERY: MID RCA: Previously placed stent has instent 20 % restenosis with a new at distal edge of stent Iron deficiency anemia (Chronic) COPD (chronic obstructive pulmonary disease) (Chronic) Tobacco abuse (Chronic) Medical non-compliance (Chronic) Ischemic cardiomyopathy (Chronic) Hospital Course and Treatment Operations: None Procedures: 2-D Echocardiogram Summary of Care Provided: The patient is a 58 year old M seen in the emergency room at [facility] with a chief complaint of shortness of breath. Patient also complained of a cough with some yellow sputum production. Evaluation in the emergency room included a CBC which showed a normal white blood cell count, chemistries were unremarkable, beta natruretic peptide was elevated at 2850, lactic acid was elevated at 2.7, CT of the chest showed no evidence for PE or dissection but showed some groundglass opacities which could be secondary to pulmonary edema. Patient received a DuoNeb aerosol on arrival and was given IV Solu-Medrol, patient was placed on IV antibiotics and and was admitted initially to the progressive care unit but was transferred to ICU secondary to worsening respiratory distress and increasing lactic acid levels. Patient's lactic acid level on repeat was 7.5 and he was felt to be in septic shock, he was transferred to ICU and seen in consultation by pulmonary medicine. Initially patient was kept on IV antibiotics due to concerns of pneumonia, echocardiogram was obtained which showed an EF of 15% and a pulmonary artery pressure 43 mm. This was unchanged from an echocardiogram performed in 2016. The patient's elevated lactic acid was felt to be secondary to hypoxia and not septic shock, patient's condition stabilized in the ICU and it was felt that the patient's pulmonary infiltrates were secondary to acute on chronic systolic congestive heart failure. Patient was subsequently moved out of the ICU to PCU where IV Lasix was continued. It was felt that the patient was noncompliant with his medical care including his medicine usage at home. On 09/29/18, patient was seen and examined: On examination he appeared in good health and spirits. Vital signs as documented. Skin warm and dry and without overt rashes. Neck without JVD. Lungs clear. Heart exam notable for regular rhythm, normal sounds and absence of murmurs, rubs or gallops. Abdomen unremarkable and without evidence of organomegaly, masses, or abdominal aortic enlargement. Extremities nonedematous. Neuro: Cranial nerves II through XII are grossly intact, no focal motor deficits were noted. Psych: Patient was alert and oriented x3, he was not depressed or anxious. On 09/29/18, patient appear to be medically stable for discharge home. Patient did not meet criteria for oxygen at home at the time of discharge. - Physical Exam Vital Signs Temp Pulse Resp BP Pulse Ox 97.5 F L 88 17 125/79 H 95 09/29/18 14:49 09/29/18 14:49 09/29/18 14:49 09/29/18 14:49 09/29/18 14:49 Oxygen Flow Rate (L/min) 2 Oxygen Delivery Method Room Air Weight: 73.6 kg Body Mass Index (BMI) 23.7 Intake and Output for Last 24 Hours 09/28/18 09/29/18 09/30/18 23:59 23:59 23:59 Intake Total 3118 / 3118 1200 / 1200 Output Total 1650 / 1650 Balance 1468 / 1468 1200 / 1200 Microbiology Past 72 Hours 09/26/18 19:35 Blood Culture - Preliminary Blood Culture (Wb) #2 - No Site/Description Given No growth in 48 hours. 09/26/18 19:40 Blood Culture - Preliminary Blood Culture (Wb) - Anticubital Right No growth in 48 hours. 09/27/18 02:10 Urine Culture - Final Urine, Clean Catch Mixed Gram Positive Organisms Discharge Activity: Return to Normal Activity Weight Bearing Status: Full weight bearing Home Medications: Medications to take at Discharge Nitroglycerin [Nitrostat] 0.4 mg SUBLINGUAL Q5M PRN #1 bottle 12/14/17 aspirin 81 mg chewable tablet 81 mg PO DAILY@0800 #30 tab.chew 01/11/18 atorvastatin 80 mg tablet 80 mg PO QHS #30 tab 01/11/18 carvedilol 6.25 mg tablet 6.25 mg PO BID #60 tab 01/11/18 clopidogrel 75 mg tablet 75 mg PO DAILY #30 tab 01/11/18 isosorbide mononitrate ER 30 mg tablet,extended release 24 hr 30 mg PO DAILY #30 tab 01/11/18 losartan 25 mg tablet 25 mg PO DAILY #30 tab 01/11/18 potassium chloride ER 20 mEq tablet,extended release(part/cryst) 20 meq PO DAILY #30 tab 01/11/18 ferrous gluconate 324 mg (37.5 mg iron) tablet 325 mg PO BIDCM #60 tab 01/15/18 Acetaminophen [Tylenol Tablet] 650 mg PO Q6H PRN PRN tablet 08/05/18 Gabapentin [Neurontin] 600 mg PO QHS 08/27/18 Furosemide [Lasix] 40 mg PO BID #60 tab 09/08/18 Nicotine [Nicoderm] 14 mg TRANSDERM. DAILY #14 patch 09/08/18 Acetaminophen [Tylenol Tablet] 650 mg PO Q6H PRN PRN tablet 09/29/18 Albuterol Inhaler [Ventolin Hfa (SP)] 2 puff INHALATION Q6H PRN PRN #1 inhaler 09/29/18 Following Prescrptions Were Given to Patient: Albuterol Inhaler [Ventolin Hfa (SP)] 2 puff INHALATION Q6H PRN PRN #1 inhaler PRN Reason: Shortness Of Breath Primary Care Physician: Berna Oquendo NP-C [Primary Care Provider] - Please follow up with your Primary Care Physician in: in 2 weeks Please Follow Up With: Bradford Mak MD When: at next visit Disposition: Home Minutes spent on discharge:: 32 Patient Condition:: Stable Medical Necessity - Tobacco Use Smoking Status: Current every day smoker Tobacco Use: Cigarettes Meaningful Use Info Meaningful Use Diagnoses (Choose all that apply): CHF - CHF YUE/ARB ordered at discharge?: Yes Documented LVEF (%): 15 Code Visit Inpatient E&M: 61334 Disch Hosp
--- NOTE | 2018-10-03 12:39 | CASEMGMT ---
GILL BASS NOTE: Call received from Radha @ [facility]. She states that pt's RUBBER WORKER, Berna Oquendo, says that she has not seen pt since December d/t his frequent cancellations of appts with her and so she is not agreeable to follow pt for HHC and also d/t his non-compliance. Radha inquired if hospitalist would follow pt for HHC and she was informed that [facility] hospitalists do not follow pt's in the community once they are discharged. Radha states they will not be able to see pt for HHC d/t no physician to follow/give orders for care. Lyle SCHMITT RN CM
== END 2018-09-29 15:30 | disposition home or self-care (01) | DRG 291 ==
LOC: ED 19:56 → PCU 23:08 → ICU 09-27 01:24 → PCU 09-28 13:08
PROVIDERS: Internal Medicine Critical Care Medicine; Admitting Provider Hospitalist; Emergency Provider Emergency Medicine; Family Provider Nurse Practitioner Family; PCP Nurse Practitioner Family; Visit Provider Internal Medicine
DX: I11.0 Hypertensive heart disease with heart failure (principal); J96.01 Acute respiratory failure with hypoxia; G93.41 Metabolic encephalopathy; Q21.1 Atrial septal defect; I50.23 Acute on chronic systolic (congestive) heart failure; I27.20 Pulmonary hypertension, unspecified; I25.5 Ischemic cardiomyopathy; Z91.19 Patient's noncompliance with other medical treatment and regimen; I25.10 Atherosclerotic heart disease of native coronary artery without angina pectoris; F17.210 Nicotine dependence, cigarettes, uncomplicated; D50.9 Iron deficiency anemia, unspecified; J44.9 Chronic obstructive pulmonary disease, unspecified; Z95.5 Presence of coronary angioplasty implant and graft; Z95.810 Presence of automatic (implantable) cardiac defibrillator
CPT/HCPCS: 36415; 36600; 71045; 71046; 71275; 80048; 81001; 82803; 82962; 83605; 83735; 83880; 84100; 84484; 85025; 85379; 87040; 87086; 87088; 87449; 87633; 87641; 87804; 92526; 93005; 93306; 94002; 94003; 94640; 94667; 94668; 97161; 97165; 99251; 99285; J7030; Q9967; A4216; G0463; J1940; J2405

== ENCOUNTER 2018-10-14 12:12 | Emergency (ER) | payer MEDICARE, SELFPAY ==
[2018-09-26 23:38] VITALS: BMI 23.7
[2018-10-14] VITALS (10 sets, daily range): BP systolic 125–148; BP diastolic 89–101; PULSE 82–100; RESP 16–34; TEMP 35.7–36.8; O2SAT 96–100; BMI 22.0
--- NOTE | 2018-10-14 12:45 | EKG12_ITS ---
Test Reason : SOB Blood Pressure : / mmHG Vent. Rate : 093 BPM Atrial Rate : 093 BPM P-R Int : 216 ms QRS Dur : 100 ms QT Int : 386 ms P-R-T Axes : 082 -57 108 degrees QTc Int : 479 ms Sinus rhythm with 1st degree A-V block Possible Left atrial enlargement Left axis deviation Septal infarct , age undetermined Abnormal ECG Confirmed by PRETTY BARLOW, HIRA ([id number]), medical transcription editor AMADOR EDMONDS ([id number]) on 10/15/2018 5:22:10 PM Referred By: LIBRA Confirmed By:HIRA OLSEN MD
[2018-10-14 13:01] LABS: Bacteria 0 SEEN /hpf (None Seen); Mucous, Urine 0 SEEN /hpf (<or=2+); Red Blood Cells-Urine 0 SEEN /hpf (0-5); White Blood Cells 0 SEEN /hpf (0-5)
[2018-10-14] MEDS: 0.9% Normal Saline 1,000 ML 150 ML IV (13:01)
[2018-10-14 13:02] LABS: Absolute Lymphocyte Count 1.13 X10^3/ul (0.83-4.51); Absolute Neutrophil Count 4.8 X10^3/uL (2.0-7.7); Basophil# 0.05 X10^3/uL; Basophil% 0.8 % (0-1); Eosinophil# 0.09 X10^3/uL; Eosinophils% 1.4 % (0-5); Hematocrit 41.6 % (40-54); Hemoglobin 12.9 g/dl (13.0-16.5); Lymphocyte # 1.13 X10^3/ul (4.0); Lymphocyte % 17.2 % (19-41); Mean Corpuscular Hgb 26.9 pg (27.0-32.0); Mean Corpuscular Volume 86.7 fL (80-94); Mean Platelet Vol. 9.1 fl (6.2-12.0); Monocyte% 7.6 % (0-10); Neutrophil # 4.76 X10^3/uL (2.7-7.7); Neutrophil % 72.4 % (47-70); Platelet Count 185 K/mm3 (150-450); RBC Distribution Width CV 15.7 % (11.6-14.6); RBC Distribution Width SD 49.8 fl (35.1-43.9); White Blood Count 6.6 K/mm3 (4.4-11.0)
[2018-10-14 13:03] LABS: Color, Urine Straw (Yellow); Glucose, Dipstick Normal (Normal); Ketone-Dipstick Negative (Negative); Leukocyte Esterase-Dipstick Negative /ul (Negative); Nitrite-Dipstick Negative (Negative); Occult Blood-Urine Negative /ul (Negative); Protein-Dipstick Negative (Negative); Urine Bilirubin Dipstick Negative (Negative); Urine Clarity Clear (Clear); Urine Urobilinogen Normal (Normal)
[2018-10-14 13:03] LABS: POSITIVE COUNT NO; POSITIVE DIFFERENTIAL NO; POSITIVE MORPHOLOGY NO
[2018-10-14 13:07] LABS: International Normalized Ratio 1.2; Partial Thromboplast Time 27.2 Seconds (24.1-36.2); Prothrombin Time (Protime)PT. 15.1 SECONDS (11.7-14.9)
[2018-10-14 13:10] LABS: Allen Test POS; Base Excess 0 mmol/L (-2 to +2); Bicarbonate 22.7 mmol/L (22-26); Blood Gas Specimen Type ART; O2 Delivery Device Room Air; PO2 99 mmHG (75-100); SITE R Radial; SO2 98 % (95-99); Time Given 1305; Total Carbon Dioxide 24 mmol/L; pCO2 28.1 mmHg (35-45); pH 7.52 (7.35-7.45)
--- NOTE | 2018-10-14 13:10 | RAD_ITS ---
STUDY: X-RAY CHEST REASON FOR EXAM: Male, 58 years old. Dyspnea. TECHNIQUE: Single AP portable view of the chest. COMPARISON: Comparison is made with prior study dated September 29, 2018. FINDINGS: EKG electrodes are seen. The lungs are clear and expanded. There is no demonstrated pleural abnormality. There is mild cardiac enlargement. Left-sided ICD. Normal mediastinum and alberto. Normal visualized pulmonary arteries. There is atherosclerotic calcification of the aortic arch with tortuosity. There are degenerative changes of the visualized thoracic spine. Normal visualized ribs, clavicles, and shoulders. There is no demonstrated abnormality of the visualized soft tissue structures of the upper abdomen. RAD/Chest 1 View (Portable) IMPRESSION: Mild cardiomegaly. No acute abnormality is seen. Electronically Signed: Darrick Coreas MD at 13:33 EST Tel [phone], Service support ,
[2018-10-14 13:15] LABS: Squamous Epithelial Cells - UA 0-5 SEEN /hpf (0-5)
[2018-10-14 13:19] LABS: ALB/GLOB Ratio 0.8 RATIO (0.9-2.4); AST(SGOT) 33 U/L (15-37); Alanine Aminotransfer ALT/SGPT 43 U/L (16-61); Albumin, Serum 3.2 g/dL (3.2-5.0); Alkaline Phosphatase 129 U/L (45-117); Anion Gap 8 (5-15); BUN 23 mg/dL (7-18); BUN/Creat Ratio 25.7 RATIO (10-20); Calcium,Total 8.3 mg/dL (8.5-10.1); Chloride 102 mmol/L (98-107); EST Glomerular Filtration Rate 92 mL/min (>60); Est Glom Filt Rate - Afr Amer 111 mL/min (>60); Globulin 3.8 g/dL (2.2-4.2); Glucose 80 mg/dL (74-106); Lipase 230 U/L (73-393); Potassium 4.4 mmol/L (3.5-5.1); Sodium Level 137 mmol/L (136-145)
[2018-10-14 13:22] LABS: Lactic Acid 1.2 mmol/L (0.4-2.0)
--- NOTE | 2018-10-14 13:25 | CT_ITS ---
STUDY: CT BRAIN WITHOUT CONTRAST REASON FOR EXAM: Male, 58 years old. Altered level of consciousness. RADIATION DOSAGE (If Supplied By Facility): CTDIvol = ( 44.99 ) mGy, DLP = ( 796.11 ) mGycm TECHNIQUE: Transaxial CT imaging of the brain was performed without administration of intravenous contrast material. Individualized dose optimization techniques were used for this CT. COMPARISON: Comparison is made with prior examination dated August 31, 2018. FINDINGS: Normal soft tissue structures. Normal calvarium. There is mild cerebral atrophy with widening of the extra-axial spaces and ventricular dilatation. There are areas of decreased attenuation within the white matter tracts of the supratentorial brain, consistent with microvascular disease changes. There is evidence of right lacunar infarct. This is unchanged. Small lacunar infarct in the left insular cortex of the temporal lobe. Normal brainstem. Normal cerebellum. There is evidence of a cavum septum pellucid. There is no intracranial hemorrhage. There are no findings of an acute ischemic infarction. Atherosclerotic calcification of the cavernous portion of the internal carotid arteries bilaterally. Partial opacification of the ethmoid sinuses and right maxillary sinus. The right maxillary sinus is hypoplastic CT/Brain/Head without Contrast IMPRESSION: Chronic involutional changes of the brain. Stable examination. Electronically Signed: Darrick Coreas MD at 14:18 EST Tel [phone], Service support ,
[2018-10-14 13:43] LABS: BNP,B-Type NATRIURETIC PEPTIDE 2626.9 pg/mL (0-100)
[2018-10-14 14:03] LABS: Amphetamine Urine VISTA POSITIVE (<1000 ng/mL); Barbiturate Urine VISTA NEGATIVE (< 200 ng/mL); Benzodiazepine Urine VISTA NEGATIVE (< 200 ng/mL); Cocaine Urine VISTA NEGATIVE (< 300 ng/mL); Ecstacy Urine VISTA NEGATIVE (< 500 ng/mL); Methadone Urine VISTA NEGATIVE (< 300 ng/mL); PCP Urine VISTA NEGATIVE (< 25 ng/mL); THC Urine VISTA NEGATIVE (< 50 ng/mL); Vista UDS pH Range 6
--- NOTE | 2018-10-14 14:06 | CT_ITS ---
STUDY: CTA CHEST REASON FOR EXAM: Male, 58 years old. Acute shortness of breath RADIATION DOSAGE (If Supplied By Facility): CTDIvol = ( 9.22 ) mGy, DLP = ( 280.48 ) mGycm TECHNIQUE: The examination was performed with the intravenous administration of 100ML ml of Isovue 370 contrast material. Post-processing of the angiographic images was performed, with multiplanar reformation and 3D reconstruction. Individualized dose optimization techniques were used for this CT. COMPARISON: 09/26/2018 FINDINGS: Normal enhancement of the main pulmonary artery and right and left pulmonary arteries. Normal enhancement of the bilateral peripheral pulmonary arteries. There is no demonstrated pulmonary embolism. There is atherosclerotic calcification of the aortic arch with tortuosity. There is no demonstrated aortic dissection. Normal heart and pericardium. There are calcifications of the coronary arteries. Normal mediastinum. Normal hilar regions. There is peribronchial thickening. The lungs are well expanded. Chronic interstitial changes in both lung crews, no superimposed acute pulmonary process. Emphysematous blebs noted in the upper lobes. Normal pleura. Normal chest wall structures. There are degenerative changes of thoracic spine. Normal visualized upper abdomen. CT/CTA Chest W/WO Contrast IMPRESSION: No demonstrated PE, or thoracic aortic aneurysm or dissection Hyperexpanded lungs with bleb formation in the upper lobes, and evidence of chronic bronchitis but no organized infiltrate or effusion Calcified coronary vessels Degenerative bony changes Electronically Signed: Ez Pineda MD at 15:10 EST , Service support ,
--- NOTE | 2018-10-14 16:33 | NURSING ---
DR RICHARD SMYTH
--- NOTE | 2018-10-14 16:52 | ED.VISSUMM ---
- ER Visit Summary Date of Service: 10/14/18 Chief Complaint: Dyspnea History of Present Illness: The patient is a 58 M who presents with shortness of breath. Patient states that this is episodic. He notes a cough. He states he feels very sleepy. He was recently admitted at the end of August and has had several hospitalizations over the past year for dyspnea. They are usually multifactorial. He has COPD. He has an ischemic cardiomyopathy with ejection fraction of 15%. He is noted to be noncompliant with medicines. 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 A friend of his called and wished to speak with me stating that 1 of his episodes the other day he thought perhaps the patient was having withdrawal so I offered him some meth but the patient declined stating that he already had it in his system. Patient states that he is extremely short of breath right now and needs oxygen. Physical Examination: Afebrile noted signs are stable 88% on room air respiratory rate is noted to be fast at 26. Gen: Well-nourished well-developed disheveled patient appears to fall asleep easily. When he falls asleep he is no longer tachypneic Head: Normocephalic atraumatic Eyes: Perrl EOMI ENT: TMs clear no rhinorrhea moist mucous membranes Neck: Supple no lymphadenopathy no JVD nontender CVS: Regular rate rhythm no murmurs normal S1-S2 Respiratory: Tachypneic clear to auscultation bilaterally chest nontender Abdomen: Soft nontender nondistended normal bowel sounds no masses Back: Nontender Extremity: Nontender no edema Skin: Normal color no rash Neuro: alert orientated ?3 CN II-XII intact normal strength sensation reflexes gait cerebellar Psych: Anxious Test Results: ABG is normal with a PaO2 of 99 PCO2 of 28.1. Troponin 0 0.06 which appears to be more of a chronic finding for him. Natruretic peptide is elevated at 2600. His chest x-ray shows no overt failure and CT Altagracia of the chest to him straits no PE no dissection and no pleural effusions infiltrate. CT the brain was obtained which was negative. Emergency Department Course and Treatment: The patient falls asleep and is not tachypneic this would at least suggest that this may not be physiologic. The patient got relief his symptoms with 1 L nasal cannula. He has been resting comfortably in the bed. We ambulated him and he is 100% on room air and can briskly walked in the hallway. I do question how much of this is anxiety related. I am going to write for Vistaril as I do not think a benzodiazepine is a good choice given his drug abuse history. Also write for an albuterol MDI as family states he does not have any inhaler even though he has had that written for him. He is to follow-up with his doctors. Impression: 1. Dyspnea 2. Anxiety This note was generated with [employer] dictation software. It may contain incorrect words, spelling, and punctuation that were not noted in review of the chart prior to signing ED Disposition - Plan for ED Patient: Disposition: Home or Assisted Living Chief Complaint: Shortness of Breath Instructions: ED Dyspnea Shortness of Breath Prescriptions: Albuterol Inhaler [Ventolin Hfa] 2 puff INHALATION Q4H PRN PRN #1 inhaler PRN Reason: Wheezing hydrOXYzine pamoate capsule [Vistaril] 25 mg PO TID PRN PRN #30 cap PRN Reason: Anxiety Referrals: Berna Oquendo, DANA-C [Primary Care Provider] - As soon as possible
== END 2018-10-14 17:07 | disposition home or self-care (01) ==
PROVIDERS: Emergency Provider Emergency Medicine; Family Provider Nurse Practitioner Family; PCP Nurse Practitioner Family
DX: I50.9 Heart failure, unspecified (principal); R06.00 Dyspnea, unspecified; F41.9 Anxiety disorder, unspecified; J44.9 Chronic obstructive pulmonary disease, unspecified; I25.5 Ischemic cardiomyopathy; Z91.14 Patient's other noncompliance with medication regimen; I25.10 Atherosclerotic heart disease of native coronary artery without angina pectoris; G25.81 Restless legs syndrome; F15.20 Other stimulant dependence, uncomplicated; Z95.810 Presence of automatic (implantable) cardiac defibrillator; Z79.82 Long term (current) use of aspirin; Z79.899 Other long term (current) drug therapy; Z72.0 Tobacco use
CPT/HCPCS: 36600; 70450; 71045; 71275; 80053; 80307; 80320; 81001; 82140; 82803; 83605; 83690; 83880; 84484; 85025; 85610; 85730; 93005; 96360; 96361; 99284; J7030; Q9967; A4216; G0480

== ENCOUNTER 2018-10-25 11:57 | Emergency (ER) | payer MEDICARE, SELFPAY ==
[2018-10-17 15:49] VITALS: BMI 22.8
[2018-10-25 11:57] VITALS: BP 113/97; PULSE 97; RESP 20; TEMP 36.5; O2SAT 97; BMI 25.1
--- NOTE | 2018-10-25 12:06 | EKG12_ITS ---
Test Reason : REPEAT EKG Blood Pressure : / mmHG Vent. Rate : 098 BPM Atrial Rate : 098 BPM P-R Int : 196 ms QRS Dur : 106 ms QT Int : 394 ms P-R-T Axes : 080 -58 104 degrees QTc Int : 503 ms Normal sinus rhythm Possible Left atrial enlargement Left axis deviation ST & T wave abnormality, consider lateral ischemia Prolonged QT Poor R wave progression Abnormal ECG Confirmed by ERICA BARLOW, SOFY ([id number]), video news editor AMADOR EDMONDS ([id number] on 10/29/2018 3:34:07 PM Referred By: KG Confirmed By:SOFY MALDONADO MD
--- NOTE | 2018-10-25 12:10 | RAD_ITS ---
STUDY: X-RAY CHEST REASON FOR EXAM: Male, 58 years old. Chest pain this morning TECHNIQUE: Single AP portable view of the chest. COMPARISON: 10/14/2018 FINDINGS: There is hyperinflation of the lungs consistent with chronic obstructive lung disease (COPD). Lungs are clear. There is no demonstrated pleural abnormality. There is mild cardiac enlargement. Stable left chest wall pacing device Normal mediastinum and alberto. Normal visualized pulmonary arteries. Normal visualized aortic arch and descending thoracic aorta. Normal visualized thoracic spine. Normal visualized ribs, clavicles, and shoulders. There is no demonstrated abnormality of the visualized soft tissue structures of the upper abdomen. RAD/Chest 1 View (Portable) IMPRESSION: COPD. Lungs are clear. Electronically Signed: Clark Pacheco DO at 12:47 EST Tel , Service support ,
--- NOTE | 2018-10-25 12:16 | ED.VISSUMM ---
- ER Visit Summary Date of Service: 10/25/18 Chief Complaint: Chest pain History of Present Illness: The patient is a 58 M 3 of CAD, MD, hypertension and COPD. He has 8 prior cardiac stents and a pacemaker defibrillator. Patient states he was admitted about 3 weeks ago for chest pain. He denies any history of DVT or PE. No calf or leg pain or swelling. No hemoptysis. Pain is not pleuritic. Squad gave him nitroglycerin x1 which completely resolved his pain. Currently is pain-free. Physical Examination: Middle-aged male. Currently no acute distress. Vital signs are stable. He is afebrile. His pulse ox is 97% room air no signs of hypoxia. Initial blood pressure 113/97. No distress. H EENT exam unremarkable. Neck nontender. No lymphadenopathy. Lungs clear to auscultation bilaterally. Heart regular rate and rhythm rate about 95 no murmur. Chest wall nontender. No ecchymosis or bruising. No subcu air nor crepitance. Abdomen soft nontender normal bowel sounds no peritoneal signs. Extremities moves all 4. Calves nontender without edema or cords. Equal symmetrical radial pulses. Neurologically is awake alert with no focal motor deficits. Test Results: 12. Electrolytes unremarkable creatinine 0.7 and gap of 9. Troponin indeterminate range of 0.067. Patient had multiple indeterminate troponins and abnormal troponins before. Chest x-ray chronic changes but no acute process read both by myself and radiologist. Initial EKG sinus rhythm rate of [address] depression in V3 through V6. Seen on prior EKGs. No ST elevation. No acute MD. Emergency Department Course and Treatment: Undergo cardiac workup. I asked the patient if he was doing methamphetamines he states now his niece said that and that is not accurate. Repeat exam patient is doing well at 13: 58 PM. Currently he is symptom-free. I explained to him his abnormal troponin this may or may not be his baseline. He does not want to wait any longer and does not drawn or done. He understands the risks. He did allow us to do a second EKG at 1359 and again shows sinus rhythm with subtle ST depression T wave inversion in leads V4, 5 6. Similar to her prior EKG. No ST elevation. And no change from the first. Patient states within the last month he was hospitalized and had a negative stress test. He does not want any further workup or admitted at this time and wants to leave. Treatment Plan: Follow-up with his primary care provider Tameka Oquendo and his labor union business representative Dr. Dhruv Mak. Disposition: Discharge Impression: Acute chest pain of uncertain etiology Patient refusing further evaluation and testing and also admission. History of CAD, MD, pacemaker defibrillator and multiple cardiac stents This note was generated with [employer] dictation software. It may contain incorrect words, spelling, and punctuation that were not noted in review of the chart prior to signing ED Disposition - Plan for ED Patient: Chief Complaint: Chest Pain Referrals: Berna Oquendo, SPECIAL EDUCATION TUTOR-C [Primary Care Provider] -
--- NOTE | 2018-10-25 12:19 | ED.DCSUM_ITS ---
- ER Visit Summary Date of Service: 10/25/18 Chief Complaint: Chest pain History of Present Illness: The patient is a 58 M 3 of CAD, [place], hypertension and COPD. He has 8 prior cardiac stents and a pacemaker defibrillator. Patient states he was admitted about 3 weeks ago for chest pain. He denies any history of DVT or PE. No calf or leg pain or swelling. No hemoptysis. Pain is not pleuritic. Squad gave him nitroglycerin x1 which completely resolved his pain. Currently is pain-free. Physical Examination: Middle-aged male. Currently no acute distress. Vital signs are stable. He is afebrile. His pulse ox is 97% room air no signs of hypoxia. Initial blood pressure 113/97. No distress. H EENT exam unremarkable. Neck nontender. No lymphadenopathy. Lungs clear to auscultation bilaterally. Heart regular rate and rhythm rate about 95 no murmur. Chest wall nontender. No ecchymosis or bruising. No subcu air nor crepitance. Abdomen soft nontender normal bowel sounds no peritoneal signs. Extremities moves all 4. Calves nontender without edema or cords. Equal symmetrical radial pulses. Neurologically is awake alert with no focal motor deficits. Test Results: 12. Electrolytes unremarkable creatinine 0.7 and gap of 9. Troponin indeterminate range of 0.067. Patient had multiple indeterminate troponins and abnormal troponins before. Chest x-ray chronic changes but no acute process read both by myself and radiologist. Initial EKG sinus rhythm rate of [address] depression in V3 through V6. Seen on prior EKGs. No ST elevation. No acute IN. Emergency Department Course and Treatment: Undergo cardiac workup. I asked the patient if he was doing methamphetamines he states now his niece said that and that is not accurate. Repeat exam patient is doing well at 13: 58 PM. Currently he is symptom- free. I explained to him his abnormal troponin this may or may not be his baseline. He does not want to wait any longer and does not drawn or done. He understands the risks. He did allow us to do a second EKG at 1359 and again shows sinus rhythm with subtle ST depression T wave inversion in leads V4, 5 6. Similar to her prior EKG. No ST elevation. And no change from the first. Patient states within the last month he was hospitalized and had a negative stress test. He does not want any further workup or admitted at this time and wants to leave. Treatment Plan: Follow-up with his primary care provider Tameka Oquendo and his community arts officer Dr. Dhruv Mak. Disposition: Discharge Impression: Acute chest pain of uncertain etiology Patient refusing further evaluation and testing and also admission. History of CAD, [place], pacemaker defibrillator and multiple cardiac stents This note was generated with [employer] dictation software. It may contain incorrect words, spelling, and punctuation that were not noted in review of the chart prior to signing ED Disposition - Plan for ED Patient: Chief Complaint: Chest Pain Referrals: Berna Oquendo, MERCERIZER MACHINE OPERATOR-C [Primary Care Provider] -
[2018-10-25 12:21] VITALS: O2SAT 98
[2018-10-25 12:33] LABS: Anion Gap 9 (5-15); BUN 24 mg/dL (7-18); BUN/Creat Ratio 31.2 RATIO (10-20); Calcium,Total 8.7 mg/dL (8.5-10.1); Chloride 101 mmol/L (98-107); Creatinine, Serum 0.77 mg/dL (0.70-1.30); EST Glomerular Filtration Rate 110 mL/min (>60); Est Glom Filt Rate - Afr Amer 133 mL/min (>60); Glucose 97 mg/dL (74-106); Potassium 4.7 mmol/L (3.5-5.1); Sodium Level 136 mmol/L (136-145)
[2018-10-25 12:38] LABS: Absolute Lymphocyte Count 1.46 X10^3/ul (0.83-4.51); Basophil# 0.04 X10^3/uL; Basophil% 0.5 % (0-1); Eosinophil# 0.11 X10^3/uL; Eosinophils% 1.3 % (0-5); Hematocrit 38.7 % (40-54); Hemoglobin 12.1 g/dl (13.0-16.5); Lymphocyte # 1.46 X10^3/ul (4.0); Lymphocyte % 17.5 % (19-41); Mean Corp Hgb Conc 31.3 g/gl (32-36); Mean Corpuscular Hgb 26.9 pg (27.0-32.0); Mean Platelet Vol. 9.1 fl (6.2-12.0); Monocyte# 0.72 X10^3/uL; Monocyte% 8.6 % (0-10); Neutrophil # 5.98 X10^3/uL (2.7-7.7); Neutrophil % 71.6 % (47-70); POSITIVE COUNT NO; POSITIVE DIFFERENTIAL NO; POSITIVE MORPHOLOGY NO; Platelet Count 194 K/mm3 (150-450); RBC Distribution Width CV 17.1 % (11.6-14.6); RBC Distribution Width SD 53.2 fl (35.1-43.9); White Blood Count 8.4 K/mm3 (4.4-11.0)
[2018-10-25 12:59] VITALS: PULSE 92; O2SAT 100
[2018-10-25 13:00] VITALS: PULSE 96; O2SAT 96
--- NOTE | 2018-10-25 13:51 | EKG12_ITS ---
Test Reason : CHEST PAIN Blood Pressure : / mmHG Vent. Rate : 096 BPM Atrial Rate : 096 BPM P-R Int : 198 ms QRS Dur : 104 ms QT Int : 402 ms P-R-T Axes : 083 -63 107 degrees QTc Int : 507 ms Normal sinus rhythm Possible Left atrial enlargement Left axis deviation ST & T wave abnormality, consider lateral ischemia Prolonged QT Poor R wave progression Abnormal ECG Confirmed by ERICA BARLOW, SOFY ([id number]), features editor AMADOR EDMONDS ([id number]) on 10/29/2018 3:36:02 PM Referred By: GEMA Confirmed By:SOFY MALDONADO MD
--- NOTE | 2018-10-25 14:02 | ED.DEP ---
ED Disposition - Plan for ED Patient: Disposition: Home or Assisted Living Chief Complaint: Chest Pain Instructions: ED Chest Pain Atypical Unkn Cause Referrals: Berna Oquendo NP-Seferino [Primary Care Provider] - As soon as possible Bradford Mak MD [STAFF PHYSICIAN] - As soon as possible Additional Instructions: Follow-up with your primary care provider and Dr. Dhruv Mak your scrubber system attendant. Continue your current medications and return if doing worse.
[2018-10-25 14:08] VITALS: BP 115/78; PULSE 64; RESP 18; O2SAT 99
--- NOTE | 2018-10-25 14:10 | ED.RN ---
INFORMED PT OF SECOND TROPONIN LEVEL. PT REFUSES. I'M NOT WAITING ANOTHER FUCKING HOUR FOR ANOTHER BLOOD TEST. I WANT TO GO HOME. INFORMED DR SAUL.
== END 2018-10-25 14:11 | disposition home or self-care (01) ==
PROVIDERS: Emergency Provider Emergency Medicine; Family Provider Nurse Practitioner Family; PCP Nurse Practitioner Family
DX: R07.9 Chest pain, unspecified (principal); Z53.20 Procedure and treatment not carried out because of patient's decision for unspecified reasons; I25.10 Atherosclerotic heart disease of native coronary artery without angina pectoris; I25.2 Old myocardial infarction; I10 Essential (primary) hypertension; J44.9 Chronic obstructive pulmonary disease, unspecified; Z95.810 Presence of automatic (implantable) cardiac defibrillator; Z79.82 Long term (current) use of aspirin; Z79.899 Other long term (current) drug therapy; F17.200 Nicotine dependence, unspecified, uncomplicated
CPT/HCPCS: 71045; 80048; 84484; 85025; 93005; 99285; J7030; A4216

== ENCOUNTER 2018-11-22 00:35 | Emergency (ER) | payer MEDICARE, SELFPAY ==
[2018-11-22] VITALS (11 sets, daily range): BP systolic 123–144; BP diastolic 90–102; PULSE 89–102; RESP 20–38; TEMP 36.6–36.7; O2SAT 95–100; BMI 25.1
--- NOTE | 2018-11-22 00:56 | RAD_ITS ---
STUDY: X-RAY CHEST REASON FOR EXAM: Male, 58 years old. Cough TECHNIQUE: Frontal view COMPARISON: 10/25/2018 FINDINGS: There is unipolar pacemaker in the mid and the RIGHT atrium. Lungs are expanded. There are mild fibrotic changes at the lung bases. There is NO pleural effusion or pneumothorax. Heart is slightly enlarged. Normal mediastinum and alberto. Normal visualized pulmonary arteries. Normal visualized aortic arch and descending thoracic aorta. Normal visualized thoracic spine. Normal visualized ribs, clavicles, and shoulders. There is no demonstrated abnormality of the visualized soft tissue structures of the upper abdomen. RAD/Chest 1 View (Portable) IMPRESSION: There is unipolar pacemaker in the mid and the RIGHT atrium. Lungs are expanded. There are mild fibrotic changes at the lung bases. There is NO pleural effusion or pneumothorax. Heart is slightly enlarged. Electronically Signed: Win Bryson MD at 3:09 EST , Service support ,
--- NOTE | 2018-11-22 00:56 | EKG12_ITS ---
Test Reason : Blood Pressure : / mmHG Vent. Rate : 098 BPM Atrial Rate : 098 BPM P-R Int : 204 ms QRS Dur : 110 ms QT Int : 388 ms P-R-T Axes : 079 -68 106 degrees QTc Int : 495 ms Normal sinus rhythm Possible Left atrial enlargement Left axis deviation Incomplete right bundle branch block Septal infarct , age undetermined T wave abnormality, consider lateral ischemia Abnormal ECG Confirmed by ERICA BARLOW, SOFY ([id number]), editor school photograph TEZ PETERSON (87) on 11/25/2018 5:20:01 PM Referred By: ILIANA Confirmed By:SOFY MALDONADO MD
[2018-11-22] MEDS: Albuterol 2.5 MG/3 ML VIAL.NEB. INHALATION ×2 (01:13)
[2018-11-22] MEDS: Ipratropium/Albuterol Sulfate 3 ML AMPUL.NEB INHALATION (01:13)
[2018-11-22] MEDS: MethylPREDNISolone 125 MG/2 ML Vial 60 MG IV (01:29)
[2018-11-22 01:31] LABS: Absolute Neutrophil Count 7.2 X10^3/uL (2.0-7.7); Basophil# 0.03 X10^3/uL; Basophil% 0.4 % (0-1); Eosinophil# 0.06 X10^3/uL; Eosinophils% 0.7 % (0-5); Hematocrit 43.8 % (40-54); Hemoglobin 13.5 g/dl (13.0-16.5); Lymphocyte % 7.1 % (19-41); Mean Corp Hgb Conc 30.8 g/gl (32-36); Mean Corpuscular Volume 87.6 fL (80-94); Mean Platelet Vol. 9.9 fl (6.2-12.0); Monocyte# 0.59 X10^3/uL; Monocyte% 6.9 % (0-10); Neutrophil # 7.19 X10^3/uL (2.7-7.7); Neutrophil % 84.7 % (47-70); Platelet Count 207 K/mm3 (150-450); RBC Distribution Width CV 19.1 % (11.6-14.6); RBC Distribution Width SD 60.5 fl (35.1-43.9); White Blood Count 8.5 K/mm3 (4.4-11.0)
[2018-11-22 01:32] LABS: Differential Indicated SCAN CRITERIA MET; POSITIVE COUNT NO; POSITIVE DIFFERENTIAL YES; POSITIVE MORPHOLOGY NO
[2018-11-22 01:33] LABS: Anion Gap 9 (5-15); BUN 18 mg/dL (7-18); BUN/Creat Ratio 20.3 RATIO (10-20); Calcium,Total 8.3 mg/dL (8.5-10.1); Chloride 106 mmol/L (98-107); Creatinine, Serum 0.89 mg/dL (0.70-1.30); EST Glomerular Filtration Rate 93 mL/min (>60); Est Glom Filt Rate - Afr Amer 112 mL/min (>60); Estimated Creatinine Clearance 85.39 ml/min; Glucose 74 mg/dL (74-106); Potassium 4.2 mmol/L (3.5-5.1); Sodium Level 138 mmol/L (136-145)
[2018-11-22 02:16] LABS: Differential Comment SCANNED
--- NOTE | 2018-11-22 03:33 | ED.DCSUM_ITS ---
- ER Visit Summary Date of Service: 11/22/18 Chief Complaint: [COPD exacerbation] History of Present Illness: The patient is a 58 M with a history of COPD presenting with what he describes as his typical COPD flareup. Symptoms have been present for 2-3 days. He believes it was triggered by an upper respiratory infection. He has had a slight increase in sputum production (clear) but no fever, chills, or body aches. He is supposed to be on home oxygen and was on it for many years however states that he has not had it for the past 4 months since [place] He states this is because his insurance would not cover it because his oxygen levels were not low enough. He denies recent travel or immobilization. He denies chest pain or diaphoresis. He reports that he has been hospitalized multiple times for COPD. Physical Examination: Vitals are within normal limits except for slight tachypnea. He is not in distress. He does have wheezing in all lung crews but is still moving air well. He has no tenderness along the lower extremity venous system, palpable cords, or other evidence of DVT. Test Results: Chest x-ray is negative for infiltrate. CBC and chemistries essentially at baseline. Troponin is indeterminate at 0.07 but he denies chest pain, diaphoresis, and his EKG is unchanged from prior. Additionally, he has a chronic indeterminate troponin and is nearly always around 0.07. He states that this does not feel at all like his previous cardiac issues. He is certain that this is his COPD. He was given IV Solu-Medrol and breathing treatments and will be observed. Emergency Department Course and Treatment: He was given duo nebs and albuterol as well as IV Solu-Medrol. On reexamination, he is feeling completely back to normal. He is breathing easily. Lungs are clear. He has no clinical evidence of DVT. EKG is unchanged from baseline. His troponin is indeterminate but he adamantly denies any chest pain at this time and he is chronically indeterminate. He also states that he had a negative stress test just a few short months ago. He ambulated with a pulse oximeter on here on room air and his pulse ox was between 98 and 99%. He is not tachycardic. He feels well and wants to go home. He states that he does not feel like he needs to be hospitalized. Because he has had a change in sputum production, I will treat him with doxycycline. He was also prescribed prednisone. He will follow closely with his doctor and return here if worse. Treatment Plan: Oral doxycycline and prednisone Disposition: Home stable Impression: Initial encounter acute COPD exacerbation secondary to lower respiratory tract infection This note was generated with [employer] dictation software. It may contain incorrect words, spelling, and punctuation that were not noted in review of the chart prior to signing ED Disposition - Plan for ED Patient: Diagnosis: COPD (chronic obstructive pulmonary disease) Instructions: ED COPD Flare Prescriptions: Prednisone [Deltasone] 40 mg PO DAILY #10 tablet Doxycycline 100 mg PO BID #20 capsule Referrals: Berna Oquendo, DANA-C [Primary Care Provider] - 1 Day for another exam
== END 2018-11-22 06:10 | disposition home or self-care (01) ==
PROVIDERS: Emergency Provider Emergency Medicine; Family Provider Nurse Practitioner Family; PCP Nurse Practitioner Family
DX: J44.0 Chronic obstructive pulmonary disease with (acute) lower respiratory infection (principal); J44.1 Chronic obstructive pulmonary disease with (acute) exacerbation; Z99.81 Dependence on supplemental oxygen; Z72.0 Tobacco use; I50.9 Heart failure, unspecified; Z79.899 Other long term (current) drug therapy; Z79.82 Long term (current) use of aspirin; Z79.02 Long term (current) use of antithrombotics/antiplatelets
CPT/HCPCS: 71045; 80048; 84484; 85025; 93005; 94640; 96374; 99285; A4216

== ENCOUNTER 2018-11-23 11:32 | Inpatient (IN) | payer MEDICARE, MEDICAID, SELFPAY ==
[2018-11-22 00:36] VITALS: BMI 25.1
[2018-11-23] VITALS (18 sets, daily range): BP systolic 122–154; BP diastolic 77–110; PULSE 90–121; RESP 12–42; TEMP 36.3–37.4; O2SAT 94–100; BMI 22.8; BMI 22.1; BMI 22.2
--- NOTE | 2018-11-23 11:35 | EKG12_ITS ---
Test Reason : SOB Blood Pressure : / mmHG Vent. Rate : 119 BPM Atrial Rate : 119 BPM P-R Int : 178 ms QRS Dur : 094 ms QT Int : 302 ms P-R-T Axes : 090 -75 101 degrees QTc Int : 424 ms Sinus tachycardia Possible Left atrial enlargement Left axis deviation ST & T wave abnormality, consider lateral ischemia Abnormal ECG Confirmed by PRETTY BARLOW, HIRA ([id number]), editorial project manager TEZ PETERSON ([id number]) on 11/26/2018 4:50:54 PM Referred By: BRADLEY Confirmed By:HIRA OLSEN MD
[2018-11-23] MEDS: MethylPREDNISolone 125 MG/2 ML Vial IV (11:49)
--- NOTE | 2018-11-23 11:51 | ED.VISSUMM ---
- ER Visit Summary Date of Service: 11/23/18 Chief Complaint: Shortness of breath History of Present Illness: The patient is a 58 M with significant history of COPD and congestive heart failure presents to the emergency department shortness of breath. Patient was actually seen here yesterday early in the morning. At that time, he was diagnosed with a COPD exacerbation. He states that shortness of breath got worse overnight throughout the morning. He feels like he can breathe. He felt like he was not getting any air. On squad arrival, the patient was in the low 80s. He was tachypneic and felt very anxious. He states that he is been having some intermittent chest pain. He denies any fevers or chills. He said scant productive cough. He states his been compliant with his medications. Physical Examination: Vital signs reviewed General: Well-nourished, well-developed Head: Normocephalic, atraumatic Eyes: Pupils equal and reactive, extraocular muscles intact Neck, supple, no lymphadenopathy Heart: Regular tachycardic rate and rhythm Respiratory: Moderate respiratory distress with diminished air movement throughout Abdomen: Soft, nontender, nondistended, no peritoneal signs Back: Nontender Extremities: Nontender, no edema, no cords Skin: Slightly mottled extremities no rash Neuro: Alert and oriented, no focal or lateralizing deficits Test Results: [] Emergency Department Course and Treatment: Patient was tachycardic and tachypneic on arrival. Squad did report that his pulse ox was in the 80s. The patient was immediately placed on BiPAP. He was given nebulized breathing treatments. He states he cannot tolerate BiPAP because of the pressure. He was transitioned to nasal cannula with end-tidal CO2 monitoring. The patient remained with saturations greater than 95. I did obtain an ABG. The patient does seem to have mostly a primary respiratory alkalosis. Screening labs are relatively unremarkable. There is a leukocytosis of 15,000 but was also just recently started on prednisone for a COPD flare. Cardiac enzymes are indeterminate, which does appear to be the patient's baseline. The patient would have bouts where he would be tachypneic and his CO2 would drop into the 16th, and then he would become apneic until his CO2 would return. I did discuss his presentation with Dr. Uriarte. At this time, we are going to hold on intubation because this seems to be compensation for some underlying acidosis. The patient has a lactate of 5. I did send him for a CTA of his chest. There is no pulmonary embolus, but he does have pneumonitis and pneumonia. Patient was given IV fluids. He is more comfortable at this time. I do feel that he is going require admission. The patient was discussed with the hospitalist. Treatment Plan: [] Disposition: [] Impression: Admission 1. Dyspnea 2. Lactic acidosis 3. COPD exacerbation 4. CHF exacerbation This note was generated with [employer] dictation software. It may contain incorrect words, spelling, and punctuation that were not noted in review of the chart prior to signing ED Disposition - Plan for ED Patient: Disposition: Acute Care [facility]
--- NOTE | 2018-11-23 11:55 | RAD_ITS ---
STUDY: X-RAY CHEST REASON FOR EXAM: Male, 58 years old. Shortness of breath, tachypnea TECHNIQUE: AP COMPARISON: Previous day FINDINGS: EKG leads project over the chest. Cardiac conduction device is stable. Coarsened interstitial lung markings in the lung bases but no airspace consolidation. There is no demonstrated pleural abnormality. There is mild cardiac enlargement. Coronary artery stents noted. Normal mediastinum and alberto. Normal visualized pulmonary arteries. Normal visualized aortic arch and descending thoracic aorta. No acute bony process. There is no demonstrated abnormality of the visualized soft tissue structures of the upper abdomen. RAD/Chest 1 View (Portable) IMPRESSION: Stable, nonacute portable x-ray examination of the chest. Electronically Signed: Archie Bermudez MD at 12:27 EST , Service support ,
[2018-11-23 12:00] LABS: Absolute Lymphocyte Count 0.79 X10^3/ul (0.83-4.51); Absolute Neutrophil Count 13.1 X10^3/uL (2.0-7.7); Basophil# 0.01 X10^3/uL; Basophil% 0.1 % (0-1); Eosinophil# 0.01 X10^3/uL; Eosinophils% 0.1 % (0-5); Hematocrit 43.9 % (40-54); Hemoglobin 13.3 g/dl (13.0-16.5); Lymphocyte # 0.79 X10^3/ul (4.0); Lymphocyte % 5.2 % (19-41); Mean Corp Hgb Conc 30.3 g/gl (32-36); Mean Corpuscular Hgb 27.2 pg (27.0-32.0); Mean Corpuscular Volume 89.8 fL (80-94); Mean Platelet Vol. 9.8 fl (6.2-12.0); Monocyte# 1.15 X10^3/uL; Monocyte% 7.6 % (0-10); Neutrophil # 13.12 X10^3/uL (2.7-7.7); Neutrophil % 86.7 % (47-70); POSITIVE COUNT NO; POSITIVE DIFFERENTIAL NO; POSITIVE MORPHOLOGY NO; Platelet Count 216 K/mm3 (150-450); RBC Distribution Width CV 19.6 % (11.6-14.6); RBC Distribution Width SD 61.9 fl (35.1-43.9); Red Blood Count 4.89 M/mm3 (4.6-6.2); White Blood Count 15.1 K/mm3 (4.4-11.0)
[2018-11-23] MEDS: Ipratropium/Albuterol Sulfate 3 ML AMPUL.NEB INHALATION ×2 (12:00→18:59)
[2018-11-23] MEDS: Albuterol 2.5 MG/3 ML VIAL.NEB. INHALATION (12:00)
--- NOTE | 2018-11-23 12:00 | ED.RN ---
PT NOT TOLERATING BIPAP. REQUESTING TO BE INTUBATED. PT FIGHTING BIPAP WITH HIS BREATHING HYPERVENTILATIONS. BIPAP REMOVED PLACED ON CAPNOGRAPHY. ATIVAN GIVEN FOR ANXIETY. RESPIRATORY AT BEDSIDE FOR ABD. PT IS HAVING 5 SEC APENIC SPELLS.
[2018-11-23] MEDS: LORazepam 2 MG/ML Syringe 1 MG IV (12:04)
--- NOTE | 2018-11-23 12:08 | ED.RN ---
PT COLOR IMPROVED. NO LONGER CYANOTIC. SATS 89-98% WHEN DROP WHEN STOPS BREATHIG FOR 5 SECOND INTERVALS.
[2018-11-23 12:14] LABS: BUN 19 mg/dL (7-18); Creatinine, Serum 0.96 mg/dL (0.70-1.30); Estimated Creatinine Clearance 90.74 ml/min; Glucose 148 mg/dL (74-106)
[2018-11-23 12:15] LABS: Anion Gap 9 (5-15); BUN/Creat Ratio 19.8 RATIO (10-20); Calcium,Total 8.5 mg/dL (8.5-10.1); Chloride 105 mmol/L (98-107); EST Glomerular Filtration Rate 85 mL/min (>60); Est Glom Filt Rate - Afr Amer 103 mL/min (>60); Potassium 5.5 mmol/L (3.5-5.1); Sodium Level 137 mmol/L (136-145)
[2018-11-23 12:20] LABS: Base Excess -7 mmol/L (-2 to +2); Bicarbonate 16.4 mmol/L (22-26); Blood Gas Specimen Type ART; O2 Delivery Device Room Air; PO2 68 mmHG (75-100); SITE R Radial; SO2 96 % (95-99); Time Given 1245; Total Carbon Dioxide 17 mmol/L; pCO2 20.3 mmHg (35-45); pH 7.52 (7.35-7.45)
--- NOTE | 2018-11-23 12:22 | ED.RN ---
LACTIC 5.0 PER CALL FROM LAB. AND PRIMARY RN AWARE.
--- NOTE | 2018-11-23 12:23 | CT_ITS ---
STUDY: CTA CHEST REASON FOR EXAM: Male, 58 years old. Chest pain and shortness of breath with tachycardia, anxiety and hyperventilation, leukocytosis RADIATION DOSAGE (If Supplied By Facility): CTDIvol = ( 13.37 ) mGy, DLP = ( 645.54 ) mGycm TECHNIQUE: The examination was performed with the intravenous administration of 75mL ml of Isovue 370 contrast material. Post-processing of the angiographic images was performed, with multiplanar reformation and 3D reconstruction. Quality of the exam is diminished by patient motion throughout the exam. Individualized dose optimization techniques were used for this CT. COMPARISON: 10/14/2018 FINDINGS: Normal enhancement of the main pulmonary artery and right and left pulmonary arteries. There is limited enhancement/assessment of the bilateral peripheral pulmonary arteries, due to patient motion. No obvious pulmonary embolus demonstrated. There is atherosclerotic calcification of the aortic arch with tortuosity. There is no demonstrated aortic dissection. Heart remains enlarged. Single-chamber cardiac conduction device identified with tip extending to the right ventricle. Coronary artery calcifications are present. Normal mediastinum. Normal hilar regions. Moderate centrilobular emphysema throughout multiple pulmonary lobes. There is localized airspace consolidation involving the upper portion of the left lower lobe (image 176 of series 2). A small focal nodular infiltrate in the right upper lobe is evident on image 171. Mild ill-defined reticular and groundglass opacities in the bilateral lower lobes on image 87 more conspicuous since the prior study could represent additional areas of pneumonitis. Normal chest wall structures. There are degenerative changes of thoracic spine. Normal visualized upper abdomen. CT/CTA Chest W/WO Contrast IMPRESSION: 1. Limited by motion. No demonstrated central or obvious segmental pulmonary embolism. 2. Interval (since 10/14/2018) development of bilateral lower lobe and right upper lobe infiltrate suggesting pneumonia/pneumonitis. No cavitating process demonstrated. 3. Centrilobular emphysema. Electronically Signed: Archie Bermudez MD at 13:31 EST , Service support ,
--- NOTE | 2018-11-23 12:56 | ED.RN ---
DISCUSSED NEED FOR URINE SAMPLE. PT REFUSING CATHETER AT THIS TIME. UNABLE TO URINATE.
[2018-11-23 13:12] LABS: Salicylate < 1.7 mg/dL (2.8-20.0)
[2018-11-23] MEDS: 0.9% Normal Saline 1,000 ML 999 ML IV (13:18)
[2018-11-23] MEDS: levoFLOXacin IV 500 MG/100 ML BAG 100 MG IV (13:34)
[2018-11-23 13:42] LABS: Bacteria 0 SEEN /hpf (None Seen); Mucous, Urine 0 SEEN /hpf (<or=2+); Red Blood Cells-Urine 0 SEEN /hpf (0-5); Squamous Epithelial Cells - UA 0 SEEN /hpf (0-5); White Blood Cells 0 SEEN /hpf (0-5)
[2018-11-23 13:44] LABS: Color, Urine Yellow (Yellow); Glucose, Dipstick Normal (Normal); Ketone-Dipstick Negative (Negative); Leukocyte Esterase-Dipstick Negative /ul (Negative); Nitrite-Dipstick Negative (Negative); Occult Blood-Urine 10 /ul (Negative); Protein-Dipstick 100 mg/dl (Negative); Specific Gravity, Urine 1.015 (1.002-1.030); Urine Bilirubin Dipstick Negative (Negative); Urine Clarity Clear (Clear); Urine Urobilinogen 1 mg/dl (Normal)
[2018-11-23 14:22] LABS: Amphetamine Urine VISTA POSITIVE (<1000 ng/mL); Barbiturate Urine VISTA NEGATIVE (< 200 ng/mL); Benzodiazepine Urine VISTA NEGATIVE (< 200 ng/mL); Cocaine Urine VISTA NEGATIVE (< 300 ng/mL); Ecstacy Urine VISTA NEGATIVE (< 500 ng/mL); Methadone Urine VISTA NEGATIVE (< 300 ng/mL); PCP Urine VISTA NEGATIVE (< 25 ng/mL); THC Urine VISTA NEGATIVE (< 50 ng/mL); Vista UDS pH Range 5
--- NOTE | 2018-11-23 14:34 | HP.PCM_ITS ---
Addendum entered and electronically signed by XIAO Zafar 11/23/18 14:58: Code Visit Addendum: presumed sepsis 2/2 HCAP (leukocytosis, infiltrates, tachycardia, tachypnea), lactate presumed elevated 2/2 respiratory insufficiency and not infection. Original Note: Problem List (1) Severe sepsis Status: Acute (2) Systolic CHF Status: Acute (3) COPD with acute exacerbation Status: Acute (4) ICD (implantable cardioverter-defibrillator) in place Status: Chronic (5) Iron deficiency anemia Status: Chronic Qualifiers: (6) COPD (chronic obstructive pulmonary disease) Status: Chronic Qualifiers: (7) Tobacco abuse Status: Chronic (8) Medical non-compliance Status: Chronic (9) Ischemic cardiomyopathy Status: Chronic History of Present Illness Date of Admission: 11/23/18 Chief Complaint: SOB The patient is a 58 year old M with pmhx of COPD, emphysema, systolic CHF, ischemic CM, htn, pulmonary htn, ongoing nicotine abuse, CAD, ICD and PM in place, polysubstance abuse (alcohol, meth) who presented to the ER with c/o SOB. He came to the ER yesterday and was sent home with Doxy and Prednisone. He came back today and was very SOB and anxious. He was breathing rapidly and had an ABG demonstrating alkylosis. He was placed on bipap but did not tolerate this. He is now resting comfortable on no O2 with sats up to 98%. He was given ativan and is now very lethargic and difficult to rouse. Tox screen shows amphetamines. Lactic acid is markedly elevated at 5.0. BNP 2218. He has an elevated WBC count however this was negative yesterday and he has been on steroids. His CTA shows pna, pneumonitis, and emphysema. [] Past Medical History Past Medical History (Chronic Problems): Chronic Problems (Last Reviewed 09/27/18 @ 02:25 by Marcus Mi MD) Elevated troponin (Chronic) ICD (implantable cardioverter-defibrillator) in place (Chronic) History of coronary artery stent placement (Chronic) PCI-RCA and CX Atherosclerosis of coronary artery of [place] heart without angina pectoris (Chronic) LEFT HEART ASSESSMENT Left Ventricular Ejection Fraction: by LV Gram 10-15 % Global Hypokinesis - Severe Depressed Left Ventricular systolic function Normal Left Ventricular End Diastolic Pressure LEFT MAIN: Non-obstructive LEFT ANTERIOR DECENDING ARTERY: Previously placed stent is patent DIAGONAL 1: Ostial - Mild luminal irregularities less than 30% DIAGONAL 2: Proximal - Non-obstructive CIRCUMFLEX ARTERY: MID CIRC: Previously placed stent is patent RIGHT CORONARY ARTERY: MID RCA: Previously placed stent has instent 20 % restenosis with a new at distal edge of stent Iron deficiency anemia (Chronic) COPD (chronic obstructive pulmonary disease) (Chronic) Tobacco abuse (Chronic) Medical non-compliance (Chronic) Ischemic cardiomyopathy (Chronic) Medical History: Medical History (Last Reviewed 09/27/18 @ 02:25 by Marcus Mi MD) Atherosclerosis of coronary artery of [place] heart without angina pectoris (Chronic) I25.10 LEFT HEART ASSESSMENT Left Ventricular Ejection Fraction: by LV Gram 10-15 % Global Hypokinesis - Severe Depressed Left Ventricular systolic function Normal Left Ventricular End Diastolic Pressure LEFT MAIN: Non-obstructive LEFT ANTERIOR DECENDING ARTERY: Previously placed stent is patent DIAGONAL 1: Ostial - Mild luminal irregularities less than 30% DIAGONAL 2: Proximal - Non-obstructive CIRCUMFLEX ARTERY: MID CIRC: Previously placed stent is patent RIGHT CORONARY ARTERY: MID RCA: Previously placed stent has instent 20 % restenosis with a new at distal edge of stent Acute respiratory failure with hypoxemia (Acute) J96.01 Iron deficiency anemia (Chronic) D50.9 COPD (chronic obstructive pulmonary disease) (Chronic) J44.9 Tobacco abuse (Chronic) Z72.0 Medical non-compliance (Chronic) Z91.19 Ischemic cardiomyopathy (Chronic) I25.5 Acute on chronic systolic (congestive) heart failure I50.23 Restless leg syndrome G25.81 Acute bronchitis (Resolved) J20.9 COPD exacerbation (Resolved) J44.1 Recent discharge 12/14/17 following treatment for acute on chronic systolic CHF exacerbation, acute COPD exacerbation with acute hypoxic respiratory fail ure and MRSA HCAP PNA. HCAP (healthcare-associated pneumonia) (Resolved) J18.9 Recent discharge 12/14/17 following treatment for acute on chronic systolic CHF exacerbation, acute COPD exacerbation with acute hypoxic respiratory failure and MRSA HCAP PNA. Hypotension (Resolved) I95.9 MRSA (methicillin resistant Staphylococcus aureus) infection (Resolved) A49.02 Recent discharge 12/14/17 following treatment for acute on chronic systolic CHF exacerbation, acute COPD exacerbation with acute hypoxic respiratory failure and MRSA HCAP PNA. NSVT (nonsustained ventricular tachycardia) (Resolved) I47.2 Near syncope (Resolved) R55 Elevated troponin (Inactive) R74.8 Allergies No Known Allergies Allergy (Verified 11/23/18 11:39) Home Medications: Ambulatory Orders Medication Instructions Recorded Nitroglycerin [Nitrostat] 0.4 mg SUBLINGUAL Q5M PRN #1 bottle 12/14/17 ferrous gluconate 324 mg (37.5 mg 325 mg PO BIDCM #60 tab 01/15/18 iron) tablet Gabapentin [Neurontin] 600 mg PO QHS 08/27/18 Albuterol Inhaler [Ventolin Hfa] 2 puff INHALATION Q4H PRN PRN #1 10/14/18 inhaler aspirin 81 mg tablet,delayed 81 mg PO DAILY #90 tab 10/17/18 release atorvastatin 80 mg tablet 80 mg PO QHS #90 tab 10/17/18 carvedilol 6.25 mg tablet 6.25 mg PO BID #90 tab 10/17/18 clopidogrel 75 mg tablet 75 mg PO DAILY #90 tab 10/17/18 furosemide 40 mg tablet 40 mg PO BID #180 tab 10/17/18 hydroxyzine pamoate 25 mg capsule 25 mg PO TID PRN PRN #30 cap 10/17/18 isosorbide mononitrate ER 30 mg 30 mg PO DAILY #90 tab 10/17/18 tablet,extended release 24 hr losartan 25 mg tablet 25 mg PO DAILY #90 tab 10/17/18 potassium chloride ER 20 mEq 20 meq PO DAILY #90 tab 10/17/18 tablet,extended release(part/cryst) prednisone 10 mg tablet 1 tab PO DAILY 12 Days #30 tab 10/17/18 Surgical History: Surgical History (Last Reviewed 09/27/18 @ 02:25 by Marcus Mi MD) ICD (implantable cardioverter-defibrillator) in place (Chronic) Z95.810 History of coronary artery stent placement (Chronic) Z95.5 PCI-RCA and CX History of coronary artery stent placement Z95.5 [id number] and Cx History of left heart catheterization Onset Date: 12/14/17 Z98.890 CORONARY ANGIOGRAPHY DOMINANCE: Right Dominant LEFT HEART ASSESSMENT Left Ventricular Ejection Fraction: by LV Gram 10-15 % Global Hypokinesis - Severe Depressed Left Ventricular systolic function Normal Left Ventricular End Diastolic Pressure LEFT MAIN: Non-obstructive LEFT ANTERIOR DECENDING ARTERY: Previously placed stent is patent DIAGONAL 1: Ostial - Mild luminal irregularities less than 30% DIAGONAL 2: Proximal - Non-obstructive CIRCUMFLEX ARTERY: MID CIRC: Previously placed stent is patent RIGHT CORONARY ARTERY: MID RCA: Previously placed stent has instent 20 % restenosis with a new at distal edge of stent Surgical History: - - PCI x 10-11. Psychiatric History: No pertinent psych hx Smoking Status: Current every day smoker - *Family History Maternal Family History: Family History (Last Reviewed 09/27/18 @ 02:26 by Marcus Mi MD) Father CAD (coronary artery disease) Heart disease Mother CAD (coronary artery disease) Heart disease Aunt Cancer Brother Heart disease Hypertension History Items: Heart Disease Paternal Family History: Family History (Last Reviewed 09/27/18 @ 02:26 by Marcus Mi MD) Father CAD (coronary artery disease) Heart disease Mother CAD (coronary artery disease) Heart disease Aunt Cancer Brother Heart disease Hypertension History Items: Heart Disease Review of Systems Unable to obtain accurate/complete ROS d/t: patient lethargic 2/2 ativan administration VTE Information - Inpt Only VTE Present on Admission: No VTE Mechan Device Prophylaxis: None VTE Pharm Prophylaxis ordered?: Yes Patient Problems: Active and Suspected Problems (Last Reviewed 09/27/18 @ 02:25 by Marcus Mi MD) Severe sepsis (Acute) Systolic CHF (Acute) - Physical Exam General: Lethargic HEENT: Atraumatic, PERRLA, EOMI, Normocephalic Neck: Supple, No JVD, Negative Carotid Bruits Lungs: Diminished Cardiovascular: Regular rate, No murmurs Abdomen: Bowel Sounds Present, Soft, Non Tender Extremities: No edema, Capillary Refill Less than 3 Seconds Skin: - - chronic vascular changes BL LE Musculoskeletal: No Tenderness to Palpation of Joints or Extremities Neurological: Cranial nerves II-XII grossly intact Psych/Mental Status: - - lethargic Vital Signs Temp Pulse Resp BP Pulse Ox 97.4 F L 116 H 24 H 143/110 H 95 11/23/18 13:16 11/23/18 13:16 11/23/18 13:16 11/23/18 13:16 11/23/18 13:16 Oxygen Delivery Method Room Air Weight: 172 lb 13.478 oz Body Mass Index (BMI) 22.8 Laboratory Tests Past 24 Hrs 11/23/18 11/23/18 11/23/18 11:45 11:45 11:45 WBC 15.1 H RBC 4.89 Hgb 13.3 Hct 43.9 MCV 89.8 MCH 27.2 MCHC 30.3 L RDW 19.6 H RDW Differential 61.9 H Plt Count 216 MPV 9.8 Immature Gran % (Auto) 0.300 Neut % (Auto) 86.7 H Lymph % (Auto) 5.2 L [place] % (Auto) 7.6 Eos % (Auto) 0.1 Baso % (Auto) 0.1 Absolute Neuts (auto) 13.1 H Absolute Lymphs (auto) 0.79 L Total Counted Not Reportable Specimen Type Sample Site pH Bicarbonate Actual POC Total CO2 Base Excess O2 Saturation ABG pCO2 ABG pO2 Alexis Test O2 Delivery Device Blood Gas Notified Whom Blood Gas Notified Time Sodium 137 Potassium 5.5 H Chloride 105 Carbon Dioxide 23.0 Anion Gap 9 BUN 19 H Creatinine 0.96 Estim Creat Clear Calc 90.74 Est GFR (MDRD) Af Amer 103 Est GFR (MDRD) Non-Af 85 BUN/Creatinine Ratio 19.8 Glucose 148 H Lactic Acid 5.0 H* Calcium 8.5 Troponin I 0.069 H B-Natriuretic Peptide Urine Color Urine Clarity Urine pH Ur Specific [place] Urine Protein Urine Glucose (UA) Urine Ketones Urine Occult Blood Urine Nitrite Urine Bilirubin Urine Urobilinogen Ur Leukocyte Esterase Urine RBC Urine WBC Ur Squamous Epith Cells Urine Bacteria Urine Mucus Salicylates Urine Opiates Screen Urine Methadone Screen Ur Barbiturates Screen Ur Phencyclidine Scrn Ur Amphetamines Screen U Methamphetamin-MDMA U Benzodiazepines Scrn Urine Cocaine Screen U Cannabinoids Screen Ur Drug Screen Comment Acetone Level 11/23/18 11/23/18 11/23/18 11:45 11:45 11:45 WBC RBC Hgb Hct MCV MCH MCHC RDW RDW Differential Plt Count MPV Immature Gran % (Auto) Neut % (Auto) Lymph % (Auto) [place] % (Auto) Eos % (Auto) Baso % (Auto) Absolute Neuts (auto) Absolute Lymphs (auto) Total Counted Specimen Type Sample Site pH Bicarbonate Actual POC Total CO2 Base Excess O2 Saturation ABG pCO2 ABG pO2 Alexis Test O2 Delivery Device Blood Gas Notified Whom Blood Gas Notified Time Sodium Potassium Chloride Carbon Dioxide Anion Gap BUN Creatinine Estim Creat Clear Calc Est GFR (MDRD) Af Amer Est GFR (MDRD) Non-Af BUN/Creatinine Ratio Glucose Lactic Acid Calcium Troponin I B-Natriuretic Peptide 2218.0 H Urine Color Urine Clarity Urine pH Ur Specific [place] Urine Protein Urine Glucose (UA) Urine Ketones Urine Occult Blood Urine Nitrite Urine Bilirubin Urine Urobilinogen Ur Leukocyte Esterase Urine RBC Urine WBC Ur Squamous Epith Cells Urine Bacteria Urine Mucus Salicylates < 1.7 L Urine Opiates Screen Urine Methadone Screen Ur Barbiturates Screen Ur Phencyclidine Scrn Ur Amphetamines Screen U Methamphetamin-MDMA U Benzodiazepines Scrn Urine Cocaine Screen U Cannabinoids Screen Ur Drug Screen Comment Acetone Level NEGATIVE 11/23/18 11/23/18 11/23/18 12:15 13:40 13:40 WBC RBC Hgb Hct MCV MCH MCHC RDW RDW Differential Plt Count MPV Immature Gran % (Auto) Neut % (Auto) Lymph % (Auto) [place] % (Auto) Eos % (Auto) Baso % (Auto) Absolute Neuts (auto) Absolute Lymphs (auto) Total Counted Specimen Type ART Sample Site R Radial pH 7.52 H Bicarbonate Actual 16.4 L POC Total CO2 17 Base Excess -7 L O2 Saturation 96 ABG pCO2 20.3 L ABG pO2 68 L Alexis Test NA O2 Delivery Device Room Air Blood Gas Notified Whom ED Blood Gas Notified Time 1245 Sodium Potassium Chloride Carbon Dioxide Anion Gap BUN Creatinine Estim Creat Clear Calc Est GFR (MDRD) Af Amer Est GFR (MDRD) Non-Af BUN/Creatinine Ratio Glucose Lactic Acid Calcium Troponin I B-Natriuretic Peptide Urine Color Yellow Urine Clarity Clear Urine pH 5.0 Ur Specific [place] 1.015 Urine Protein 100 H Urine Glucose (UA) Normal Urine Ketones Negative Urine Occult Blood 10 H Urine Nitrite Negative Urine Bilirubin Negative Urine Urobilinogen 1 H Ur Leukocyte Esterase Negative Urine RBC 0 SEEN Urine WBC 0 SEEN Ur Squamous Epith Cells 0 SEEN Urine Bacteria 0 SEEN Urine Mucus 0 SEEN Salicylates Urine Opiates Screen NEGATIVE Urine Methadone Screen NEGATIVE Ur Barbiturates Screen NEGATIVE Ur Phencyclidine Scrn NEGATIVE Ur Amphetamines Screen POSITIVE H U Methamphetamin-MDMA NEGATIVE U Benzodiazepines Scrn NEGATIVE Urine Cocaine Screen NEGATIVE U Cannabinoids Screen NEGATIVE Ur Drug Screen Comment Acetone Level Assessment/Plan All Active Problems (Last Reviewed 09/27/18 @ 02:25 by Marcus Mi MD) Septic shock (Acute) Severe sepsis (Acute) Systolic CHF (Acute) Septic shock (Acute) COPD with acute exacerbation (Acute) Acute respiratory failure with hypoxemia (Acute) Acute bronchitis (Resolved) COPD exacerbation (Resolved) HCAP (healthcare-associated pneumonia) (Resolved) Hypotension (Resolved) MRSA (methicillin resistant Staphylococcus aureus) infection (Resolved) NSVT (nonsustained ventricular tachycardia) (Resolved) Near syncope (Resolved) 1. Acute respiratory failure, possible etiologies include BL pna vs acute on chronic systolic CHF exacerbation, acute COPD exacerbation - complicated by pulmonary htn and ischemic CM (has AICD/PM) - He will be treated empirically for COPD/CHF/HCAP (recently admitted). Patient initially required bipap however he did not tolerate this. He was anxious and given ativan, he was likely hyperventilating as he was tachypneic and alkalotic. He was given steroids and levaquin. CTA shows possible BL infiltrates in the bases. BNP was markedly elevated at 2200+ and troponin was indeterminate. No LE edema. Lungs are severely diminished. ER physician reporting wheezing on presentation, which is now not audible. He is now off O2 and satting well. Leukocytosis likely 2/2 home steroids. He continues to smoke. -IV lasix, I/O, daily weights, already on ARB and BB. -IV solumedrol, duonebs, IS -IV Vanc/Zosyn (hx mrsa - add nasal mrsa swab) -Blood/sputum cultures. -Pulm c/s -correct hyperkalemia 2. Lactic acidosis - recheck x1 - given IV fluids in er. Likely 2/2 respiratory failure and not septic shock. 3. CAD - asa/statin/plavix/coreg/arb/imdur 4. Polysubstance abuse - tox screen showing amphetamines. Reported hx of nicotine/meth/alcohol abuse 5. Anxiety - very ansioux at admission and received ativan as he was h yperventilating. Continue as needed, also on home atarax. Use cautiously with respiratory issues as above. 6. Iron def anemia - on po iron. Hgb normal. DVT ppx: lovenox DC planning: PTOT evals This patient was seen by Scott Neumann PA-C under the supervision of Doctor Kathi.
[2018-11-23 15:52] LABS: Reflex Lactate? Y
[2018-11-23 16:37] LABS: Lactic Acid 1.5 mmol/L (0.4-2.0)
[2018-11-23] MEDS: 0.9% NaCl Peripheral Flush Adult/Peds IV ×3 (17:43→23:00)
[2018-11-23] MEDS: Furosemide 100 MG/10 ML Vial 80 MG IV (17:43)
[2018-11-23 18:37] LABS: M R Staph aureus DNA By PCR POSITIVE (Negative); Probe Check PASS
--- NOTE | 2018-11-23 20:45 | PCM.RX.CS ---
Consult Pharmacy has been consulted to manage selected antiobiotic: Vancomycin Type of Consult: New start Suspected Infection: Pneumonia Prior Doses of Antibiotics Received/Current Regimen: Medications Vancomycin HCl 2,000 mg/ (Sodium Chloride) 540 mls @ 250 mls/hr IV X1 ONE Stop: 11/23/18 23:09 Loading dose ordered x1 for 11/23/18 2100 Vancomycin 1500mg IV q12h to start 11/24/18 0900 with a goal trough of 15-20 mg/L Labs: Sodium 137 mmol/L (136-145) 11/23/18 11:45 Potassium 5.5 mmol/L (3.5-5.1) H 11/23/18 11:45 Chloride 105 mmol/L (98-107) 11/23/18 11:45 Carbon Dioxide 23.0 mmol/L (21.0-32.0) 11/23/18 11:45 Anion Gap 9 (5-15) 11/23/18 11:45 BUN 19 mg/dL (7-18) H 11/23/18 11:45 Creatinine 0.96 mg/dL (0.70-1.30) 11/23/18 11:45 Est GFR (MDRD) Af Amer 103 mL/min (>60) 11/23/18 11:45 Est GFR (MDRD) Non-Af 85 mL/min (>60) 11/23/18 11:45 BUN/Creatinine Ratio 19.8 RATIO (10-20) 11/23/18 11:45 Glucose 148 mg/dL (74-106) H 11/23/18 11:45 Microbiology: Microbiology 11/23/18 13:40 Urine, Clean Catch Streptococcus pneumoniae Antigen (M - Final 11/23/18 13:40 Urine, Clean Catch Legionella Antigen - Final Weight used for dosin kg Estimated Creatinine Clearance: 90.74 Goal Trough: 15-20 mcg/mL Pharmacy Plan for Drug Dosing: Pharmacy Service will continue to monitor and adjust dosing as required. Follow-Up Labs: Trough Vancomycin Labs to be done on [date and time ordered]: 11/25/18 0830 before 4th dose
[2018-11-23] MEDS: Carvedilol 6.25 MG Tablet PO (21:48)
[2018-11-23] MEDS: Heparin Injection (Vial) 5,000 UNIT/ML VIAL 5000 UNIT SC (21:48)
[2018-11-23] MEDS: Atorvastatin Calcium 80 MG Tablet PO (21:48)
[2018-11-23] MEDS: Ferrous Gluconate 324 MG Tablet PO (21:48)
[2018-11-23] MEDS: Gabapentin 600 MG Tablet PO (21:54)
[2018-11-23] MEDS: Furosemide 40 MG/4 ML Vial IV (23:00)
[2018-11-24] VITALS (17 sets, daily range): BP systolic 123–134; BP diastolic 65–93; PULSE 83–96; RESP 16–18; TEMP 36.6–37.1; O2SAT 92–97
[2018-11-24] MEDS: MELATONIN 3 MG TABLET PO ×2 (00:15→21:11)
[2018-11-24] MEDS: Furosemide 40 MG/4 ML Vial IV ×2 (06:11→13:44)
[2018-11-24] MEDS: Heparin Injection (Vial) 5,000 UNIT/ML VIAL 5000 UNIT SC ×2 (06:11→13:44)
[2018-11-24] MEDS: Ipratropium/Albuterol Sulfate 3 ML AMPUL.NEB INHALATION ×3 (06:45→19:00)
[2018-11-24 07:09] LABS: Absolute Lymphocyte Count 0.44 X10^3/ul (0.83-4.51); Absolute Neutrophil Count 9.1 X10^3/uL (2.0-7.7); Eosinophil# 0.01 X10^3/uL; Eosinophils% 0.1 % (0-5); Hematocrit 40.9 % (40-54); Hemoglobin 12.8 g/dl (13.0-16.5); Lymphocyte # 0.44 X10^3/ul (4.0); Lymphocyte % 4.3 % (19-41); Mean Corp Hgb Conc 31.3 g/gl (32-36); Mean Corpuscular Hgb 27.1 pg (27.0-32.0); Mean Corpuscular Volume 86.7 fL (80-94); Mean Platelet Vol. 9.6 fl (6.2-12.0); Monocyte% 5.9 % (0-10); Neutrophil # 9.13 X10^3/uL (2.7-7.7); Neutrophil % 89.5 % (47-70); Platelet Count 184 K/mm3 (150-450); RBC Distribution Width CV 19.6 % (11.6-14.6); RBC Distribution Width SD 60.4 fl (35.1-43.9); Red Blood Count 4.72 M/mm3 (4.6-6.2); White Blood Count 10.2 K/mm3 (4.4-11.0)
[2018-11-24 07:10] LABS: Differential Indicated SCAN CRITERIA MET; POSITIVE COUNT NO; POSITIVE DIFFERENTIAL YES; POSITIVE MORPHOLOGY NO
[2018-11-24 07:14] LABS: International Normalized Ratio 1.4; Prothrombin Time (Protime)PT. 17.2 SECONDS (11.7-14.9)
[2018-11-24 07:37] LABS: Anion Gap 12 (5-15); BUN 17 mg/dL (7-18); BUN/Creat Ratio 24.2 RATIO (10-20); Calcium,Total 7.8 mg/dL (8.5-10.1); Chloride 99 mmol/L (98-107); EST Glomerular Filtration Rate 122 mL/min (>60); Est Glom Filt Rate - Afr Amer 147 mL/min (>60); Estimated Creatinine Clearance 110.79 ml/min; Glucose 127 mg/dL (74-106); Magnesium 1.5 mg/dL (1.6-2.6); Sodium Level 138 mmol/L (136-145)
[2018-11-24] MEDS: Isosorbide Mononitrate 30 MG Tablet PO (08:06)
[2018-11-24] MEDS: Aspirin E.C. 81 MG Tablet PO (08:06)
[2018-11-24] MEDS: Carvedilol 6.25 MG Tablet PO ×2 (08:06→21:09)
[2018-11-24] MEDS: Clopidogrel Bisulfate 75 MG Tablet PO (08:06)
[2018-11-24] MEDS: Losartan Potassium 25 MG Tablet PO (08:06)
[2018-11-24] MEDS: Ferrous Gluconate 324 MG Tablet PO ×2 (08:06→16:18)
--- NOTE | 2018-11-24 10:10 | PCM.CONS.GEN ---
Problem List (1) Systolic CHF Status: Acute Qualifiers: Heart failure chronicity: acute on chronic Qualified Code(s): I50.23 - Acute on chronic systolic (congestive) heart failure (2) ICD (implantable cardioverter-defibrillator) in place Status: Chronic (3) History of coronary artery stent placement Status: Chronic Comment: PCI-RCA and CX (4) Atherosclerosis of coronary artery of [place] heart without angina pectoris Status: Chronic Qualifiers: Coronary Disease-Associated Artery/Lesion type: [place] artery Qualified Code(s): I25.10 - Atherosclerotic heart disease of [place] coronary artery without angina pectoris Comment: LEFT HEART ASSESSMENT Left Ventricular Ejection Fraction: by LV Gram 10-15 % Global Hypokinesis - Severe Depressed Left Ventricular systolic function Normal Left Ventricular End Diastolic Pressure LEFT MAIN: Non-obstructive LEFT ANTERIOR DECENDING ARTERY: Previously placed stent is patent DIAGONAL 1: Ostial - Mild luminal irregularities less than 30% DIAGONAL 2: Proximal - Non-obstructive CIRCUMFLEX ARTERY: MID CIRC: Previously placed stent is patent RIGHT CORONARY ARTERY: MID RCA: Previously placed stent has instent 20 % restenosis with a new at distal edge of stent (5) Iron deficiency anemia Status: Chronic Qualifiers: (6) COPD (chronic obstructive pulmonary disease) Status: Chronic Qualifiers: (7) Tobacco abuse Status: Chronic (8) Medical non-compliance Status: Chronic (9) Ischemic cardiomyopathy Status: Chronic Reason for Consult Date of Consultation: 11/24/18 Reason for Consultation: Tachypnea History of Present Illness: The patient is a 58 year old M, with past medical history listed below, who presented to [facility] on 11/23/2018 secondary to progressive shortness of breath. Patient was seen in the emergency room on the day prior to this presentation and diagnosed with a COPD exacerbation. Patient states that his breathing continued to get worse, so he came back for evaluation. On squad arrival, patient was noted to be in the low 80s for saturation and was very tachypneic and anxious. An ABG was obtained showing a respiratory alkalosis and I was contacted for evaluation in the emergency room. It was determined the patient would not need to be intubated and patient was admitted to the PCU for evaluation. While in the PCU, patient did receive significant diuretic therapy resulting in a 5 L diuresis. Patient states he feels significantly improved from his presentation. Patient is no longer having Kussmaul respirations, but states he still feels short of breath. Patient estimates that he is proximally at 60% of his baseline. Patient states he still has some dyspnea on exertion. Patient denies any current chest pain, abdominal pain, nausea or vomiting. Patient does report a review of systems previously and states that he was compliant with diuretic therapy, low-salt diet and his nebulizers as ordered. Patient has missed multiple visits with Dr. Ahmadi in our office in the past. Patient carries a diagnosis of COPD and extensive smoking history, but is never had pulmonary function test for quantification and clarification of lung function. Patient reports he does not use supplemental oxygen at baseline, but does have a nebulizer. Patient denies any exposures in the past such as asbestos or tuberculosis. Patient is not aware of any flu exposure. Review of systems otherwise negative x10 systems. Past Medical History Past Medical History (Chronic Problems): Chronic Problems (Last Updated 11/23/18 @ 18:10 by Julián Armenta DO) Elevated troponin (Chronic) ICD (implantable cardioverter-defibrillator) in place (Chronic) History of coronary artery stent placement (Chronic) PCI-RCA and CX Atherosclerosis of coronary artery of [place] heart without angina pectoris (Chronic) LEFT HEART ASSESSMENT Left Ventricular Ejection Fraction: by LV Gram 10-15 % Global Hypokinesis - Severe Depressed Left Ventricular systolic function Normal Left Ventricular End Diastolic Pressure LEFT MAIN: Non-obstructive LEFT ANTERIOR DECENDING ARTERY: Previously placed stent is patent DIAGONAL 1: Ostial - Mild luminal irregularities less than 30% DIAGONAL 2: Proximal - Non-obstructive CIRCUMFLEX ARTERY: MID CIRC: Previously placed stent is patent RIGHT CORONARY ARTERY: MID RCA: Previously placed stent has instent 20 % restenosis with a new at distal edge of stent Iron deficiency anemia (Chronic) COPD (chronic obstructive pulmonary disease) (Chronic) Tobacco abuse (Chronic) Medical non-compliance (Chronic) Ischemic cardiomyopathy (Chronic) Medical History: Medical History (Last Updated 11/23/18 @ 18:10 by Julián Armenta DO) Atherosclerosis of coronary artery of [place] heart without angina pectoris (Chronic) I25.10 LEFT HEART ASSESSMENT Left Ventricular Ejection Fraction: by LV Gram 10-15 % Global Hypokinesis - Severe Depressed Left Ventricular systolic function Normal Left Ventricular End Diastolic Pressure LEFT MAIN: Non-obstructive LEFT ANTERIOR DECENDING ARTERY: Previously placed stent is patent DIAGONAL 1: Ostial - Mild luminal irregularities less than 30% DIAGONAL 2: Proximal - Non-obstructive CIRCUMFLEX ARTERY: MID CIRC: Previously placed stent is patent RIGHT CORONARY ARTERY: MID RCA: Previously placed stent has instent 20 % restenosis with a new at distal edge of stent Acute respiratory failure with hypoxemia (Resolved) J96.01 Iron deficiency anemia (Chronic) D50.9 COPD (chronic obstructive pulmonary disease) (Chronic) J44.9 Tobacco abuse (Chronic) Z72.0 Medical non-compliance (Chronic) Z91.19 Ischemic cardiomyopathy (Chronic) I25.5 Acute on chronic systolic (congestive) heart failure I50.23 Restless leg syndrome G25.81 Acute bronchitis (Resolved) J20.9 COPD exacerbation (Resolved) J44.1 Recent discharge 12/14/17 following treatment for acute on chronic systolic CHF exacerbation, acute COPD exacerbation with acute hypoxic respiratory failure and MRSA HCAP PNA. HCAP (healthcare-associated pneumonia) (Resolved) J18.9 Recent discharge 12/14/17 following treatment for acute on chronic systolic CHF exacerbation, acute COPD exacerbation with acute hypoxic respiratory failure and MRSA HCAP PNA. Hypotension (Resolved) I95.9 MRSA (methicillin resistant Staphylococcus aureus) infection (Resolved) A49.02 Recent discharge 12/14/17 following treatment for acute on chronic systolic CHF exacerbation, acute COPD exacerbation with acute hypoxic respiratory failure and MRSA HCAP PNA. NSVT (nonsustained ventricular tachycardia) (Resolved) I47.2 Near syncope (Resolved) R55 Elevated troponin (Inactive) R74.8 Allergies No Known Allergies Allergy (Verified 11/23/18 11:39) Home Medications: Ambulatory Orders Medication Instructions Recorded Nitroglycerin [Nitrostat] 0.4 mg SUBLINGUAL Q5M PRN #1 bottle 12/14/17 ferrous gluconate 324 mg (37.5 mg 325 mg PO BIDCM #60 tab 01/15/18 iron) tablet Gabapentin [Neurontin] 600 mg PO QHS 08/27/18 Albuterol Inhaler [Ventolin Hfa] 2 puff INHALATION Q4H PRN PRN #1 10/14/18 inhaler aspirin 81 mg tablet,delayed 81 mg PO DAILY #90 tab 10/17/18 release atorvastatin 80 mg tablet 80 mg PO QHS #90 tab 10/17/18 carvedilol 6.25 mg tablet 6.25 mg PO BID #90 tab 01/17/19 clopidogrel 75 mg tablet 75 mg PO DAILY #90 tab 10/17/18 furosemide 40 mg tablet 40 mg PO BID #180 tab 10/17/18 hydroxyzine pamoate 25 mg capsule 25 mg PO TID PRN PRN #30 cap 10/17/18 isosorbide mononitrate ER 30 mg 30 mg PO DAILY #90 tab 10/17/18 tablet,extended release 24 hr losartan 25 mg tablet 25 mg PO DAILY #90 tab 10/17/18 potassium chloride ER 20 mEq 20 meq PO DAILY #90 tab 10/17/18 tablet,extended release(part/cryst) prednisone 10 mg tablet 1 tab PO DAILY 12 Days #30 tab 10/17/18 Surgical History: Surgical History (Last Reviewed 09/27/18 @ 02:25 by Marcus Mi MD) ICD (implantable cardioverter-defibrillator) in place (Chronic) Z95.810 History of coronary artery stent placement (Chronic) Z95.5 PCI-RCA and CX History of coronary artery stent placement Z95.5 [id number] and Cx History of left heart catheterization Onset Date: 12/14/17 Z98.890 CORONARY ANGIOGRAPHY DOMINANCE: Right Dominant LEFT HEART ASSESSMENT Left Ventricular Ejection Fraction: by LV Gram 10-15 % Global Hypokinesis - Severe Depressed Left Ventricular systolic function Normal Left Ventricular End Diastolic Pressure LEFT MAIN: Non-obstructive LEFT ANTERIOR DECENDING ARTERY: Previously placed stent is patent DIAGONAL 1: Ostial - Mild luminal irregularities less than 30% DIAGONAL 2: Proximal - Non-obstructive CIRCUMFLEX ARTERY: MID CIRC: Previously placed stent is patent RIGHT CORONARY ARTERY: MID RCA: Previously placed stent has instent 20 % restenosis with a new at distal edge of stent Surgical History: - - PCI x 10-11. Psychiatric History: No pertinent psych hx Smoking Status: Current every day smoker - *Family History Maternal Family History: Family History (Last Reviewed 09/27/18 @ 02:26 by Marcus Mi MD) Father CAD (coronary artery disease) Heart disease Mother CAD (coronary artery disease) Heart disease Aunt Cancer Brother Heart disease Hypertension History Items: Heart Disease Paternal Family History: Family History (Last Reviewed 09/27/18 @ 02:26 by Marcus Mi MD) Father CAD (coronary artery disease) Heart disease Mother CAD (coronary artery disease) Heart disease Aunt Cancer Brother Heart disease Hypertension History Items: Heart Disease Review of Systems Comment: See HPI Patient Problems: Active and Suspected Problems (Last Updated 11/23/18 @ 18:10 by Julián Armenta DO) Acute respiratory failure with hypoxia (Acute) Severe sepsis (Acute) Systolic CHF (Acute) Objective: CT scan of the chest was personally reviewed and shows no PE, significant emphysematous changes and bilateral groundglass opacities. There is no pulmonary function test to review. Last echocardiogram completed at the end of 2018 showed an EF of 15% with a small ASD and significant valvular abnormalities. - Physical Exam General: Alert, Oriented x3, Cooperative, No apparent distress, - - Mild conversational dyspnea. Appears much older than stated age. HEENT: Atraumatic, PERRLA, EOMI, Normocephalic, - - Scleral injection without icterus Oral: Moist Mucosa, No Gingival or Mucosal Lesions/ Ulcerations Neck: Supple, No Nodes, Trachea Midline, JVD, Right Lungs: No rhonchi, Diminished, Rales, Wheezes, - - Symmetric expansion. Cardiovascular: Regular rate, Regular Rhythm, Normal S1, Normal S2, Murmur, No rub noted, No Gallop Abdomen: Bowel Sounds Present, Soft, Non Tender, Non-Distended Extremities: No cyanosis, Capillary Refill Less than 3 Seconds, Clubbing, Edema Skin: No rashes, No breakdown Musculoskeletal: No Tenderness to Palpation of Joints or Extremities Lymphatic: No Cervical, Supraclavicular, or Inguinal Adenopathy Neurological: Cranial nerves II-XII grossly intact, Neuro grossly intact, Motor Exam 5/5 strength throughout Psych/Mental Status: Alert and oriented to time, place, person, mood and affect Vital Signs Temp Pulse Resp BP Pulse Ox 36.6 C 92 18 134/93 H 97 11/24/18 07:57 11/24/18 07:57 11/24/18 07:57 11/24/18 07:57 11/24/18 08:00 Oxygen Flow Rate (L/min) 2 Oxygen Delivery Method Nasal Cannula Weight: 69.8 kg Body Mass Index (BMI) 22.1 Intake and Output for Last 24 Hours 11/22/18 11/23/18 11/24/18 23:59 23:59 23:59 Intake Total 340 / 340 1639 / 1639 Output Total 375 / 375 7510 / 7510 Balance -35 / -35 -5871 / -5871 Microbiology Past 72 Hours 11/23/18 13:40 Streptococcus pneumoniae Antigen (M - Final Urine, Clean Catch 11/23/18 13:40 Legionella Antigen - Final Urine, Clean Catch Laboratory Tests Past 24 Hrs 11/23/18 11/23/18 11/23/18 11:45 11:45 11:45 WBC 15.1 H RBC 4.89 Hgb 13.3 Hct 43.9 MCV 89.8 MCH 27.2 MCHC 30.3 L RDW 19.6 H RDW Differential 61.9 H Plt Count 216 MPV 9.8 Immature Gran % (Auto) 0.300 Neut % (Auto) 86.7 H Lymph % (Auto) 5.2 L [place] % (Auto) 7.6 Eos % (Auto) 0.1 Baso % (Auto) 0.1 Absolute Neuts (auto) 13.1 H Absolute Lymphs (auto) 0.79 L Total Counted Not Reportable PT INR Specimen Type Sample Site pH Bicarbonate Actual POC Total CO2 Base Excess O2 Saturation ABG pCO2 ABG pO2 Alexis Test O2 Delivery Device Blood Gas Notified Whom Blood Gas Notified Time Sodium 137 Potassium 5.5 H Chloride 105 Carbon Dioxide 23.0 Anion Gap 9 BUN 19 H Creatinine 0.96 Estim Creat Clear Calc 90.74 Est GFR (MDRD) Af Amer 103 Est GFR (MDRD) Non-Af 85 BUN/Creatinine Ratio 19.8 Glucose 148 H Lactic Acid 5.0 H* Calcium 8.5 Magnesium Troponin I 0.069 H B-Natriuretic Peptide Urine Color Urine Clarity Urine pH Ur Specific [place] Urine Protein Urine Glucose (UA) Urine Ketones Urine Occult Blood Urine Nitrite Urine Bilirubin Urine Urobilinogen Ur Leukocyte Esterase Urine RBC Urine WBC Ur Squamous Epith Cells Urine Bacteria Urine Mucus Salicylates Urine Opiates Screen Urine Methadone Screen Ur Barbiturates Screen Ur Phencyclidine Scrn Ur Amphetamines Screen U Methamphetamin-MDMA U Benzodiazepines Scrn Urine Cocaine Screen U Cannabinoids Screen Ur Drug Screen Comment Acetone Level MRSA (PCR) 11/23/18 11/23/18 11/23/18 11:45 11:45 11:45 WBC RBC Hgb Hct MCV MCH MCHC RDW RDW Differential Plt Count MPV Immature Gran % (Auto) Neut % (Auto) Lymph % (Auto) [place] % (Auto) Eos % (Auto) Baso % (Auto) Absolute Neuts (auto) Absolute Lymphs (auto) Total Counted PT INR Specimen Type Sample Site pH Bicarbonate Actual POC Total CO2 Base Excess O2 Saturation ABG pCO2 ABG pO2 Alexis Test O2 Delivery Device Blood Gas Notified Whom Blood Gas Notified Time Sodium Potassium Chloride Carbon Dioxide Anion Gap BUN Creatinine Estim Creat Clear Calc Est GFR (MDRD) Af Amer Est GFR (MDRD) Non-Af BUN/Creatinine Ratio Glucose Lactic Acid Calcium Magnesium Troponin I B-Natriuretic Peptide 2218.0 H Urine Color Urine Clarity Urine pH Ur Specific [place] Urine Protein Urine Glucose (UA) Urine Ketones Urine Occult Blood Urine Nitrite Urine Bilirubin Urine Urobilinogen Ur Leukocyte Esterase Urine RBC Urine WBC Ur Squamous Epith Cells Urine Bacteria Urine Mucus Salicylates < 1.7 L Urine Opiates Screen Urine Methadone Screen Ur Barbiturates Screen Ur Phencyclidine Scrn Ur Amphetamines Screen U Methamphetamin-MDMA U Benzodiazepines Scrn Urine Cocaine Screen U Cannabinoids Screen Ur Drug Screen Comment Acetone Level NEGATIVE MRSA (PCR) 11/23/18 11/23/18 11/23/18 12:15 13:40 13:40 WBC RBC Hgb Hct MCV MCH MCHC RDW RDW Differential Plt Count MPV Immature Gran % (Auto) Neut % (Auto) Lymph % (Auto) [place] % (Auto) Eos % (Auto) Baso % (Auto) Absolute Neuts (auto) Absolute Lymphs (auto) Total Counted PT INR Specimen Type ART Sample Site R Radial pH 7.52 H Bicarbonate Actual 16.4 L POC Total CO2 17 Base Excess -7 L O2 Saturation 96 ABG pCO2 20.3 L ABG pO2 68 L Alexis Test NA O2 Delivery Device Room Air Blood Gas Notified Whom ED Blood Gas Notified Time 1245 Sodium Potassium Chloride Carbon Dioxide Anion Gap BUN Creatinine Estim Creat Clear Calc Est GFR (MDRD) Af Amer Est GFR (MDRD) Non-Af BUN/Creatinine Ratio Glucose Lactic Acid Calcium Magnesium Troponin I B-Natriuretic Peptide Urine Color Yellow Urine Clarity Clear Urine pH 5.0 Ur Specific [place] 1.015 Urine Protein 100 H Urine Glucose (UA) Normal Urine Ketones Negative Urine Occult Blood 10 H Urine Nitrite Negative Urine Bilirubin Negative Urine Urobilinogen 1 H Ur Leukocyte Esterase Negative Urine RBC 0 SEEN Urine WBC 0 SEEN Ur Squamous Epith Cells 0 SEEN Urine Bacteria 0 SEEN Urine Mucus 0 SEEN Salicylates Urine Opiates Screen NEGATIVE Urine Methadone Screen NEGATIVE Ur Barbiturates Screen NEGATIVE Ur Phencyclidine Scrn NEGATIVE Ur Amphetamines Screen POSITIVE H U Methamphetamin-MDMA NEGATIVE U Benzodiazepines Scrn NEGATIVE Urine Cocaine Screen NEGATIVE U Cannabinoids Screen NEGATIVE Ur Drug Screen Comment Acetone Level MRSA (PCR) 11/23/18 11/23/18 11/24/18 16:04 17:08 06:19 WBC RBC Hgb Hct MCV MCH MCHC RDW RDW Differential Plt Count MPV Immature Gran % (Auto) Neut % (Auto) Lymph % (Auto) [place] % (Auto) Eos % (Auto) Baso % (Auto) Absolute Neuts (auto) Absolute Lymphs (auto) Total Counted PT 17.2 H INR 1.4 Specimen Type Sample Site pH Bicarbonate Actual POC Total CO2 Base Excess O2 Saturation ABG pCO2 ABG pO2 Alexis Test O2 Delivery Device Blood Gas Notified Whom Blood Gas Notified Time Sodium Potassium Chloride Carbon Dioxide Anion Gap BUN Creatinine Estim Creat Clear Calc Est GFR (MDRD) Af Amer Est GFR (MDRD) Non-Af BUN/Creatinine Ratio Glucose Lactic Acid 1.5 Calcium Magnesium Troponin I B-Natriuretic Peptide Urine Color Urine Clarity Urine pH Ur Specific [place] Urine Protein Urine Glucose (UA) Urine Ketones Urine Occult Blood Urine Nitrite Urine Bilirubin Urine Urobilinogen Ur Leukocyte Esterase Urine RBC Urine WBC Ur Squamous Epith Cells Urine Bacteria Urine Mucus Salicylates Urine Opiates Screen Urine Methadone Screen Ur Barbiturates Screen Ur Phencyclidine Scrn Ur Amphetamines Screen U Methamphetamin-MDMA U Benzodiazepines Scrn Urine Cocaine Screen U Cannabinoids Screen Ur Drug Screen Comment Acetone Level MRSA (PCR) POSITIVE H 11/24/18 11/24/18 11/24/18 06:19 06:19 06:19 WBC 10.2 RBC 4.72 Hgb 12.8 L Hct 40.9 MCV 86.7 MCH 27.1 MCHC 31.3 L RDW 19.6 H RDW Differential 60.4 H Plt Count 184 MPV 9.6 Immature Gran % (Auto) 0.200 Neut % (Auto) 89.5 H Lymph % (Auto) 4.3 L [place] % (Auto) 5.9 Eos % (Auto) 0.1 Baso % (Auto) 0.0 Absolute Neuts (auto) 9.1 H Absolute Lymphs (auto) 0.44 L Total Counted Not Reportable PT INR Specimen Type Sample Site pH Bicarbonate Actual POC Total CO2 Base Excess O2 Saturation ABG pCO2 ABG pO2 Alexis Test O2 Delivery Device Blood Gas Notified Whom Blood Gas Notified Time Sodium 138 Potassium 4.0 Chloride 99 Carbon Dioxide 27.0 Anion Gap 12 BUN 17 Creatinine 0.70 Estim Creat Clear Calc 110.79 Est GFR (MDRD) Af Amer 147 Est GFR (MDRD) Non-Af 122 BUN/Creatinine Ratio 24.2 H Glucose 127 H Lactic Acid Calcium 7.8 L Magnesium 1.5 L Cancelled Troponin I B-Natriuretic Peptide Urine Color Urine Clarity Urine pH Ur Specific [place] Urine Protein Urine Glucose (UA) Urine Ketones Urine Occult Blood Urine Nitrite Urine Bilirubin Urine Urobilinogen Ur Leukocyte Esterase Urine RBC Urine WBC Ur Squamous Epith Cells Urine Bacteria Urine Mucus Salicylates Urine Opiates Screen Urine Methadone Screen Ur Barbiturates Screen Ur Phencyclidine Scrn Ur Amphetamines Screen U Methamphetamin-MDMA U Benzodiazepines Scrn Urine Cocaine Screen U Cannabinoids Screen Ur Drug Screen Comment Acetone Level MRSA (PCR) Clinical Impression(s) from Imaging Studies Chest X-Ray 11/23/18 11:55 IMPRESSION: Stable, nonacute portable x-ray examination of the chest. Electronically Signed: Archie Bermudez MD at 12:27 EST , Service support , Chest CTA 11/23/18 12:23 IMPRESSION: 1. Limited by motion. No demonstrated central or obvious segmental pulmonary embolism. 2. Interval (since 10/14/2018) development of bilateral lower lobe and right upper lobe infiltrate suggesting pneumonia/pneumonitis. No cavitating process demonstrated. 3. Centrilobular emphysema. Electronically Signed: Archie Bermudez MD at 13:31 EST , Service support , Assessment/Plan All Active Problems (Last Updated 11/23/18 @ 18:10 by Julián Armenta DO) Acute respiratory failure with hypoxia (Acute) Septic shock (Resolved) Severe sepsis (Acute) Systolic CHF (Acute) Septic shock (Ruled-out) COPD with acute exacerbation (Resolved) Acute respiratory failure with hypoxemia (Resolved) Acute bronchitis (Resolved) COPD exacerbation (Resolved) HCAP (healthcare-associated pneumonia) (Resolved) Hypotension (Resolved) MRSA (methicillin resistant Staphylococcus aureus) infection (Resolved) NSVT (nonsustained ventricular tachycardia) (Resolved) Near syncope (Resolved) RECOMMENDATIONS: 1. Continue diuresis as patient tolerates 2. Discontinue antibiotics 3. Wean supplemental oxygen as tolerated 4. Encourage incentive spirometer, continue bronchodilators 5. Outpatient complete pulmonary function test IMPRESSIONS: 1. Acute hypoxic respiratory failure secondary to acute on chronic systolic congestive heart failure Patient's tachypnea on presentation is consistent with Max-Fofana respiration. Patient with a respiratory alkalosis significantly elevated lactate. Clinical suspicion is that there is no infectious process at this time. Patient's leukocytosis is back to its baseline. Patient is not reporting any productive cough at this time. Continue with diuresis as patient tolerates. 2. Elevated lactate Patient was significant elevation of lactates on presentation. Patient was significantly hypoxic and this may account for elevated lactate. That being said, patient is not reporting any productive cough or infectious etiologies this time. Groundglass opacities may be consistent with congestive heart failure. Okay to discontinue antibiotics from my perspective. Lactate has normalized with control of hypoxemia. 3. Hypertension/possible acute on chronic systolic congestive heart failure/coronary artery disease/history of ICD Patient's blood pressure is adequate at this time. Patient is tachycardic and can likely be reinitiated on baseline cardiac medications. Defer to hospitalist on whether cardiology should be involved. Stressed the importance of a low-salt diet, but patient appears to be pre-contemplative. 4. Tobacco abuse/chronic anemia/history of noncompliance/delirium-metabolic encephalopathy/reported COPD Complicates care, management, recovery and prognosis. Patient has had multiple presentations with leaving AMA over the last 3 months. This is likely complicating his long-term prognosis. Patient likely has an element of COPD given radiologic findings, but this will need to be verified with outpatient workup. Code Visit Inpatient E&M: [id number] Init Hosp L3
--- NOTE | 2018-11-24 10:15 | CON.PCM_ITS ---
Problem List (1) Systolic CHF Status: Acute Qualifiers: Heart failure chronicity: acute on chronic Qualified Code(s): I50.23 - Acute on chronic systolic (congestive) heart failure (2) ICD (implantable cardioverter-defibrillator) in place Status: Chronic (3) History of coronary artery stent placement Status: Chronic Comment: PCI-RCA and CX (4) Atherosclerosis of coronary artery of [place] heart without angina pectoris Status: Chronic Qualifiers: Coronary Disease-Associated Artery/Lesion type: [place] artery Qualified Code(s): I25.10 - Atherosclerotic heart disease of [place] coronary artery without angina pectoris Comment: LEFT HEART ASSESSMENT Left Ventricular Ejection Fraction: by LV Gram 10-15 % Global Hypokinesis - Severe Depressed Left Ventricular systolic function Normal Left Ventricular End Diastolic Pressure LEFT MAIN: Non-obstructive LEFT ANTERIOR DECENDING ARTERY: Previously placed stent is patent DIAGONAL 1: Ostial - Mild luminal irregularities less than 30% DIAGONAL 2: Proximal - Non-obstructive CIRCUMFLEX ARTERY: MID CIRC: Previously placed stent is patent RIGHT CORONARY ARTERY: MID RCA: Previously placed stent has instent 20 % restenosis with a new at distal edge of stent (5) Iron deficiency anemia Status: Chronic Qualifiers: (6) COPD (chronic obstructive pulmonary disease) Status: Chronic Qualifiers: (7) Tobacco abuse Status: Chronic (8) Medical non-compliance Status: Chronic (9) Ischemic cardiomyopathy Status: Chronic Reason for Consult Date of Consultation: 11/24/18 Reason for Consultation: Tachypnea History of Present Illness: The patient is a 58 year old M, with past medical history listed below, who presented to [facility] on 11/23/2018 secondary to progressive shortness of breath. Patient was seen in the emergency room on the day prior to this presentation and diagnosed with a COPD exacerbation. Patient states that his breathing continued to get worse, so he came back for evaluation. On squad arrival, patient was noted to be in the low 80s for saturation and was very tachypneic and anxious. An ABG was obtained showing a respiratory alkalosis and I was contacted for evaluation in the emergency room. It was determined the patient would not need to be intubated and patient was admitted to the PCU for evaluation. While in the PCU, patient did receive significant diuretic therapy resulting in a 5 L diuresis. Patient states he feels significantly improved from his presentation. Patient is no longer having K[place]maul respirations, but states he still feels short of breath. Patient estimates that he is proximally at 60% of his baseline. Patient states he still has some dyspnea on exertion. Patient denies any current chest pain, abdominal pain, nausea or vomiting. Patient does report a review of systems previously and states that he was compliant with diuretic therapy, low-salt diet and his nebulizers as ordered. Patient has missed multiple visits with Dr. Ahmadi in our office in the past. Patient carries a diagnosis of COPD and extensive smoking history, but is never had pulmonary function test for quantification and clarification of lung function. Patient reports he does not use supplemental oxygen at baseline, but does have a nebulizer. Patient denies any exposures in the past such as asbe stos or tuberculosis. Patient is not aware of any flu exposure. Review of systems otherwise negative x10 systems. Past Medical History Past Medical History (Chronic Problems): Chronic Problems (Last Updated 11/23/18 @ 18:10 by Julián Armenta DO) Elevated troponin (Chronic) ICD (implantable cardioverter-defibrillator) in place (Chronic) History of coronary artery stent placement (Chronic) PCI-RCA and CX Atherosclerosis of coronary artery of [place] heart without angina pectoris (Chronic) LEFT HEART ASSESSMENT Left Ventricular Ejection Fraction: by LV Gram 10-15 % Global Hypokinesis - Severe Depressed Left Ventricular systolic function Normal Left Ventricular End Diastolic Pressure LEFT MAIN: Non-obstructive LEFT ANTERIOR DECENDING ARTERY: Previously placed stent is patent DIAGONAL 1: Ostial - Mild luminal irregularities less than 30% DIAGONAL 2: Proximal - Non-obstructive CIRCUMFLEX ARTERY: MID CIRC: Previously placed stent is patent RIGHT CORONARY ARTERY: MID RCA: Previously placed stent has instent 20 % restenosis with a new at distal edge of stent Iron deficiency anemia (Chronic) COPD (chronic obstructive pulmonary disease) (Chronic) Tobacco abuse (Chronic) Medical non-compliance (Chronic) Ischemic cardiomyopathy (Chronic) Medical History: Medical History (Last Updated 11/23/18 @ 18:10 by Julián Armenta DO) Atherosclerosis of coronary artery of [place] heart without angina pectoris (Chronic) I25.10 LEFT HEART ASSESSMENT Left Ventricular Ejection Fraction: by LV Gram 10-15 % Global Hypokinesis - Severe Depressed Left Ventricular systolic function Normal Left Ventricular End Diastolic Pressure LEFT MAIN: Non-obstructive LEFT ANTERIOR DECENDING ARTERY: Previously placed stent is patent DIAGONAL 1: Ostial - Mild luminal irregularities less than 30% DIAGONAL 2: Proximal - Non-obstructive CIRCUMFLEX ARTERY: MID CIRC: Previously placed stent is patent RIGHT CORONARY ARTERY: MID RCA: Previously placed stent has instent 20 % restenosis with a new at distal edge of stent Acute respiratory failure with hypoxemia (Resolved) J96.01 Iron deficiency anemia (Chronic) D50.9 COPD (chronic obstructive pulmonary disease) (Chronic) J44.9 Tobacco abuse (Chronic) Z72.0 Medical non-compliance (Chronic) Z91.19 Ischemic cardiomyopathy (Chronic) I25.5 Acute on chronic systolic (congestive) heart failure I50.23 Restless leg syndrome G25.81 Acute bronchitis (Resolved) J20.9 COPD exacerbation (Resolved) J44.1 Recent discharge 12/14/17 following treatment for acute on chronic systolic CHF exacerbation, acute COPD exacerbation with acute hypoxic respiratory failure and MRSA HCAP PNA. HCAP (healthcare-associated pneumonia) (Resolved) J18.9 Recent discharge 12/14/17 following treatment for acute on chronic systolic CHF exacerbation, acute COPD exacerbation with acute hypoxic respiratory failure and MRSA HCAP PNA. Hypotension (Resolved) I95.9 MRSA (methicillin resistant Staphylococcus aureus) infection (Resolved) A49.02 Recent discharge 12/14/17 following treatment for acute on chronic systolic CHF exacerbation, acute COPD exacerbation with acute hypoxic respiratory failure and MRSA HCAP PNA. NSVT (nonsustained ventricular tachycardia) (Resolved) I47.2 Near syncope (Resolved) R55 Elevated troponin (Inactive) R74.8 Allergies No Known Allergies Allergy (Verified 11/23/18 11:39) Home Medications: Ambulatory Orders Medication Instructions Recorded Nitroglycerin [Nitrostat] 0.4 mg SUBLINGUAL Q5M PRN #1 bottle 12/14/17 ferrous gluconate 324 mg (37.5 mg 325 mg PO BIDCM #60 tab 01/15/18 iron) tablet Gabapentin [Neurontin] 600 mg PO QHS 08/27/18 Albuterol Inhaler [Ventolin Hfa] 2 puff INHALATION Q4H PRN PRN #1 10/14/18 inhaler aspirin 81 mg tablet,delayed 81 mg PO DAILY #90 tab 10/17/18 release atorvastatin 80 mg tablet 80 mg PO QHS #90 tab 10/17/18 carvedilol 6.25 mg tablet 6.25 mg PO BID #90 tab 10/17/18 clopidogrel 75 mg tablet 75 mg PO DAILY #90 tab 10/17/18 furosemide 40 mg tablet 40 mg PO BID #180 tab 10/17/18 hydroxyzine pamoate 25 mg capsule 25 mg PO TID PRN PRN #30 cap 10/17/18 isosorbide mononitrate ER 30 mg 30 mg PO DAILY #90 tab 10/17/18 tablet,extended release 24 hr losartan 25 mg tablet 25 mg PO DAILY #90 tab 10/17/18 potassium chloride ER 20 mEq 20 meq PO DAILY #90 tab 10/17/18 tablet,extended release(part/cryst) prednisone 10 mg tablet 1 tab PO DAILY 12 Days #30 tab 10/17/18 Surgical History: Surgical History (Last Reviewed 09/27/18 @ 02:25 by Marcus Mi MD) ICD (implantable cardioverter-defibrillator) in place (Chronic) Z95.810 History of coronary artery stent placement (Chronic) Z95.5 PCI-RCA and CX History of coronary artery stent placement Z95.5 [id number]-[id number] and Cx History of left heart catheterization Onset Date: 12/14/17 Z98.890 CORONARY ANGIOGRAPHY DOMINANCE: Right Dominant LEFT HEART ASSESSMENT Left Ventricular Ejection Fraction: by LV Gram 10-15 % Global Hypokinesis - Severe Depressed Left Ventricular systolic function Normal Left Ventricular End Diastolic Pressure LEFT MAIN: Non-obstructive LEFT ANTERIOR DECENDING ARTERY: Previously placed stent is patent DIAGONAL 1: Ostial - Mild luminal irregularities less than 30% DIAGONAL 2: Proximal - Non-obstructive CIRCUMFLEX ARTERY: MID CIRC: Previously placed stent is patent RIGHT CORONARY ARTERY: MID RCA: Previously placed stent has instent 20 % restenosis with a new at distal edge of stent Surgical History: - - PCI x 10-11. Psychiatric History: No pertinent psych hx Smoking Status: Current every day smoker - *Family History Maternal Family History: Family History (Last Reviewed 09/27/18 @ 02:26 by Marcus Mi MD) Father CAD (coronary artery disease) Heart disease Mother CAD (coronary artery disease) Heart disease Aunt Cancer Brother Heart disease Hypertension History Items: Heart Disease Paternal Family History: Family History (Last Reviewed 09/27/18 @ 02:26 by Marcus Mi MD) Father CAD (coronary artery disease) Heart disease Mother CAD (coronary artery disease) Heart disease Aunt Cancer Brother Heart disease Hypertension History Items: Heart Disease Review of Systems Comment: See HPI Patient Problems: Active and Suspected Problems (Last Updated 11/23/18 @ 18:10 by Julián Armenta DO) Acute respiratory failure with hypoxia (Acute) Severe sepsis (Acute) Systolic CHF (Acute) Objective: CT scan of the chest was personally reviewed and shows no PE, significant em physematous changes and bilateral groundglass opacities. There is no pulmonary function test to review. Last echocardiogram completed at the end of 2018 showed an EF of 15% with a small ASD and significant valvular abnormalities. - Physical Exam General: Alert, Oriented x3, Cooperative, No apparent distress, - - Mild conversational dyspnea. Appears much older than stated age. HEENT: Atraumatic, PERRLA, EOMI, Normocephalic, - - Scleral injection without icterus Oral: Moist Mucosa, No Gingival or Mucosal Lesions/ Ulcerations Neck: Supple, No Nodes, Trachea Midline, JVD, Right Lungs: No rhonchi, Diminished, Rales, Wheezes, - - Symmetric expansion. Cardiovascular: Regular rate, Regular Rhythm, Normal S1, Normal S2, Murmur, No rub noted, No Gallop Abdomen: Bowel Sounds Present, Soft, Non Tender, Non-Distended Extremities: No cyanosis, Capillary Refill Less than 3 Seconds, Clubbing, Edema Skin: No rashes, No breakdown Musculoskeletal: No Tenderness to Palpation of Joints or Extremities Lymphatic: No Cervical, Supraclavicular, or Inguinal Adenopathy Neurological: Cranial nerves II-XII grossly intact, Neuro grossly intact, Motor Exam 5/5 strength throughout Psych/Mental Status: Alert and oriented to time, place, person, mood and affect Vital Signs Temp Pulse Resp BP Pulse Ox 36.6 C 92 18 134/93 H 97 11/24/18 07:57 11/24/18 07:57 11/24/18 07:57 11/24/18 07:57 11/24/18 08:00 Oxygen Flow Rate (L/min) 2 Oxygen Delivery Method Nasal Cannula Weight: 69.8 kg Body Mass Index (BMI) 22.1 Intake and Output for Last 24 Hours 11/22/18 11/23/18 11/24/18 23:59 23:59 23:59 Intake Total 340 / 340 1639 / 1639 Output Total 375 / 375 7510 / 7510 Balance -35 / -35 -5871 / -5871 Microbiology Past 72 Hours 11/23/18 13:40 Streptococcus pneumoniae Antigen (M - Final Urine, Clean Catch 11/23/18 13:40 Legionella Antigen - Final Urine, Clean Catch Laboratory Tests Past 24 Hrs 11/23/18 11/23/18 11/23/18 11:45 11:45 11:45 WBC 15.1 H RBC 4.89 Hgb 13.3 Hct 43.9 MCV 89.8 MCH 27.2 MCHC 30.3 L RDW 19.6 H RDW Differential 61.9 H Plt Count 216 MPV 9.8 Immature Gran % (Auto) 0.300 Neut % (Auto) 86.7 H Lymph % (Auto) 5.2 L [place] % (Auto) 7.6 Eos % (Auto) 0.1 Baso % (Auto) 0.1 Absolute Neuts (auto) 13.1 H Absolute Lymphs (auto) 0.79 L Total Counted Not Reportable PT INR Specimen Type Sample Site pH Bicarbonate Actual POC Total CO2 Base Excess O2 Saturation ABG pCO2 ABG pO2 Alexis Test O2 Delivery Device Blood Gas Notified Whom Blood Gas Notified Time Sodium 137 Potassium 5.5 H Chloride 105 Carbon Dioxide 23.0 Anion Gap 9 BUN 19 H Creatinine 0.96 Estim Creat Clear Calc 90.74 Est GFR (MDRD) Af Amer 103 Est GFR (MDRD) Non-Af 85 BUN/Creatinine Ratio 19.8 Glucose 148 H Lactic Acid 5.0 H* Calcium 8.5 Magnesium Troponin I 0.069 H B-Natriuretic Peptide Urine Color Urine Clarity Urine pH Ur Specific [place] Urine Protein Urine Glucose (UA) Urine Ketones Urine Occult Blood Urine Nitrite Urine Bilirubin Urine Urobilinogen Ur Leukocyte Esterase Urine RBC Urine WBC Ur Squamous Epith Cells Urine Bacteria Urine Mucus Salicylates Urine Opiates Screen Urine Methadone Screen Ur Barbiturates Screen Ur Phencyclidine Scrn Ur Amphetamines Screen U Methamphetamin-MDMA U Benzodiazepines Scrn Urine Cocaine Screen U Cannabinoids Screen Ur Drug Screen Comment Acetone Level MRSA (PCR) 11/23/18 11/23/18 11/23/18 11:45 11:45 11:45 WBC RBC Hgb Hct MCV MCH MCHC RDW RDW Differential Plt Count MPV Immature Gran % (Auto) Neut % (Auto) Lymph % (Auto) Woodson % (Auto) Eos % (Auto) Baso % (Auto) Absolute Neuts (auto) Absolute Lymphs (auto) Total Counted PT INR Specimen Type Sample Site pH Bicarbonate Actual POC Total CO2 Base Excess O2 Saturation ABG pCO2 ABG pO2 Alexis Test O2 Delivery Device Blood Gas Notified Whom Blood Gas Notified Time Sodium Potassium Chloride Carbon Dioxide Anion Gap BUN Creatinine Estim Creat Clear Calc Est GFR (MDRD) Af Amer Est GFR (MDRD) Non-Af BUN/Creatinine Ratio Glucose Lactic Acid Calcium Magnesium Troponin I B-Natriuretic Peptide 2218.0 H Urine Color Urine Clarity Urine pH Ur Specific [place] Urine Protein Urine Glucose (UA) Urine Ketones Urine Occult Blood Urine Nitrite Urine Bilirubin Urine Urobilinogen Ur Leukocyte Esterase Urine RBC Urine WBC Ur Squamous Epith Cells Urine Bacteria Urine Mucus Salicylates < 1.7 L Urine Opiates Screen Urine Methadone Screen Ur Barbiturates Screen Ur Phencyclidine Scrn Ur Amphetamines Screen U Methamphetamin-MDMA U Benzodiazepines Scrn Urine Cocaine Screen U Cannabinoids Screen Ur Drug Screen Comment Acetone Level NEGATIVE MRSA (PCR) 11/23/18 11/23/18 11/23/18 12:15 13:40 13:40 WBC RBC Hgb Hct MCV MCH MCHC RDW RDW Differential Plt Count MPV Immature Gran % (Auto) Neut % (Auto) Lymph % (Auto) Woodson % (Auto) Eos % (Auto) Baso % (Auto) Absolute Neuts (auto) Absolute Lymphs (auto) Total Counted PT INR Specimen Type ART Sample Site R Radial pH 7.52 H Bicarbonate Actual 16.4 L POC Total CO2 17 Base Excess -7 L O2 Saturation 96 ABG pCO2 20.3 L ABG pO2 68 L Alexis Test NA O2 Delivery Device Room Air Blood Gas Notified Whom ED Blood Gas Notified Time 1245 Sodium Potassium Chloride Carbon Dioxide Anion Gap BUN Creatinine Estim Creat Clear Calc Est GFR (MDRD) Af Amer Est GFR (MDRD) Non-Af BUN/Creatinine Ratio Glucose Lactic Acid Calcium Magnesium Troponin I B-Natriuretic Peptide Urine Color Yellow Urine Clarity Clear Urine pH 5.0 Ur Specific [place] 1.015 Urine Protein 100 H Urine Glucose (UA) Normal Urine Ketones Negative Urine Occult Blood 10 H Urine Nitrite Negative Urine Bilirubin Negative Urine Urobilinogen 1 H Ur Leukocyte Esterase Negative Urine RBC 0 SEEN Urine WBC 0 SEEN Ur Squamous Epith Cells 0 SEEN Urine Bacteria 0 SEEN Urine Mucus 0 SEEN Salicylates Urine Opiates Screen NEGATIVE Urine Methadone Screen NEGATIVE Ur Barbiturates Screen NEGATIVE Ur Phencyclidine Scrn NEGATIVE Ur Amphetamines Screen POSITIVE H U Methamphetamin-MDMA NEGATIVE U Benzodiazepines Scrn NEGATIVE Urine Cocaine Screen NEGATIVE U Cannabinoids Screen NEGATIVE Ur Drug Screen Comment Acetone Level MRSA (PCR) 11/23/18 11/23/18 11/24/18 16:04 17:08 06:19 WBC RBC Hgb Hct MCV MCH MCHC RDW RDW Differential Plt Count MPV Immature Gran % (Auto) Neut % (Auto) Lymph % (Auto) [place]son % (Auto) Eos % (Auto) Baso % (Auto) Absolute Neuts (auto) Absolute Lymphs (auto) Total Counted PT 17.2 H INR 1.4 Specimen Type Sample Site pH Bicarbonate Actual POC Total CO2 Base Excess O2 Saturation ABG pCO2 ABG pO2 Alexis Test O2 Delivery Device Blood Gas Notified Whom Blood Gas Notified Time Sodium Potassium Chloride Carbon Dioxide Anion Gap BUN Creatinine Estim Creat Clear Calc Est GFR (MDRD) Af Amer Est GFR (MDRD) Non-Af BUN/Creatinine Ratio Glucose Lactic Acid 1.5 Calcium Magnesium Troponin I B-Natriuretic Peptide Urine Color Urine Clarity Urine pH Ur Specific [place] Urine Protein Urine Glucose (UA) Urine Ketones Urine Occult Blood Urine Nitrite Urine Bilirubin Urine Urobilinogen Ur Leukocyte Esterase Urine RBC Urine WBC Ur Squamous Epith Cells Urine Bacteria Urine Mucus Salicylates Urine Opiates Screen Urine Methadone Screen Ur Barbiturates Screen Ur Phencyclidine Scrn Ur Amphetamines Screen U Methamphetamin-MDMA U Benzodiazepines Scrn Urine Cocaine Screen U Cannabinoids Screen Ur Drug Screen Comment Acetone Level MRSA (PCR) POSITIVE H 11/24/18 11/24/18 11/24/18 06:19 06:19 06:19 WBC 10.2 RBC 4.72 Hgb 12.8 L Hct 40.9 MCV 86.7 MCH 27.1 MCHC 31.3 L RDW 19.6 H RDW Differential 60.4 H Plt Count 184 MPV 9.6 Immature Gran % (Auto) 0.200 Neut % (Auto) 89.5 H Lymph % (Auto) 4.3 L [place] % (Auto) 5.9 Eos % (Auto) 0.1 Baso % (Auto) 0.0 Absolute Neuts (auto) 9.1 H Absolute Lymphs (auto) 0.44 L Total Counted Not Reportable PT INR Specimen Type Sample Site pH Bicarbonate Actual POC Total CO2 Base Excess O2 Saturation ABG pCO2 ABG pO2 Alexis Test O2 Delivery Device Blood Gas Notified Whom Blood Gas Notified Time Sodium 138 Potassium 4.0 Chloride 99 Carbon Dioxide 27.0 Anion Gap 12 BUN 17 Creatinine 0.70 Estim Creat Clear Calc 110.79 Est GFR (MDRD) Af Amer 147 Est GFR (MDRD) Non-Af 122 BUN/Creatinine Ratio 24.2 H Glucose 127 H Lactic Acid Calcium 7.8 L Magnesium 1.5 L Cancelled Troponin I B-Natriuretic Peptide Urine Color Urine Clarity Urine pH Ur Specific [place] Urine Protein Urine Glucose (UA) Urine Ketones Urine Occult Blood Urine Nitrite Urine Bilirubin Urine Urobilinogen Ur Leukocyte Esterase Urine RBC Urine WBC Ur Squamous Epith Cells Urine Bacteria Urine Mucus Salicylates Urine Opiates Screen Urine Methadone Screen Ur Barbiturates Screen Ur Phencyclidine Scrn Ur Amphetamines Screen U Methamphetamin-MDMA U Benzodiazepines Scrn Urine Cocaine Screen U Cannabinoids Screen Ur Drug Screen Comment Acetone Level MRSA (PCR) Clinical Impression(s) from Imaging Studies Chest X-Ray 11/23/18 11:55 IMPRESSION: Stable, nonacute portable x-ray examination of the chest. Electronically Signed: Archie Bermudez MD at 12:27 EST , Service support , Chest CTA 11/23/18 12:23 IMPRESSION: 1. Limited by motion. No demonstrated central or obvious segmental pulmonary embolism. 2. Interval (since 10/14/2018) development of bilateral lower lobe and right upper lobe infiltrate suggesting pneumonia/pneumonitis. No cavitating process demonstrated. 3. Centrilobular emphysema. Electronically Signed: Archie Bermudez MD at 13:31 EST , Service support , Assessment/Plan All Active Problems (Last Updated 11/23/18 @ 18:10 by Julián Armenta DO) Acute respiratory failure with hypoxia (Acute) Septic shock (Resolved) Severe sepsis (Acute) Systolic CHF (Acute) Septic shock (Ruled-out) COPD with acute exacerbation (Resolved) Acute respiratory failure with hypoxemia (Resolved) Acute bronchitis (Resolved) COPD exacerbation (Resolved) HCAP (healthcare-associated pneumonia) (Resolved) Hypotension (Resolved) MRSA (methicillin resistant Staphylococcus aureus) infection (Resolved) NSVT (nonsustained ventricular tachycardia) (Resolved) Near syncope (Resolved) RECOMMENDATIONS: 1. Continue diuresis as patient tolerates 2. Discontinue antibiotics 3. Wean supplemental oxygen as tolerated 4. Encourage incentive spirometer, continue bronchodilators 5. Outpatient complete pulmonary function test IMPRESSIONS: 1. Acute hypoxic respiratory failure secondary to acute on chronic systolic congestive heart failure Patient's tachypnea on presentation is consistent with Max-Fofana respiration. Patient with a respiratory alkalosis significantly elevated lactate. Clinical suspicion is that there is no infectious process at this time. Patient's leukocytosis is back to its baseline. Patient is not reporting any productive cough at this time. Continue with diuresis as patient tolerates. 2. Elevated lactate Patient was significant elevation of lactates on presentation. Patient was significantly hypoxic and this may account for elevated lactate. That being said, patient is not reporting any productive cough or infectious etiologies this time. Groundglass opacities may be consistent with congestive heart failure. Okay to discontinue antibiotics from my perspective. Lactate has normalized with control of hypoxemia. 3. Hypertension/possible acute on chronic systolic congestive heart failure/coronary artery disease/history of ICD Patient's blood pressure is adequate at this time. Patient is tachycardic and can likely be reinitiated on baseline cardiac medications. Defer to hospitalist on whether cardiology should be involved. Stressed the importance of a low-salt diet, but patient appears to be pre-contemplative. 4. Tobacco abuse/chronic anemia/history of noncompliance/delirium-metabolic encephalopathy/reported COPD Complicates care, management, recovery and prognosis. Patient has had multiple presentations with leaving AMA over the last 3 months. This is likely complicating his long-term prognosis. Patient likely has an element of COPD given radiologic findings, but this will need to be verified with outpatient workup. Code Visit Inpatient E&M: [id number] Init Hosp L3
--- NOTE | 2018-11-24 13:52 | PCM.PROGNOTE ---
Patient Problems: Active and Suspected Problems (Last Updated 11/23/18 @ 18:10 by Julián Armenta DO) Acute respiratory failure with hypoxia (Acute) Severe sepsis (Acute) Systolic CHF (Acute) Subjective: Pt still somewhat lethargic and very weak today. His breathing has significantly improved. No further cough. No fever/chills. Still some mild SOB. - Physical Exam General: Alert, Oriented x3, Cooperative HEENT: Atraumatic, PERRLA, EOMI, Normocephalic Neck: Supple, No JVD, Negative Carotid Bruits Lungs: Diminished Cardiovascular: Regular rate, No murmurs Abdomen: Bowel Sounds Present, Soft, Non Tender Extremities: No edema, Capillary Refill Less than 3 Seconds Skin: No rashes, No breakdown Musculoskeletal: No Tenderness to Palpation of Joints or Extremities Neurological: Cranial nerves II-XII grossly intact Psych/Mental Status: Normal Affect, Appropriate, Alert and oriented to time, place, person, mood and affect Vital Signs Temp Pulse Resp BP Pulse Ox 97.9 F 89 16 134/93 H 95 11/24/18 07:57 11/24/18 13:14 11/24/18 13:14 11/24/18 07:57 11/24/18 10:14 Oxygen Flow Rate (L/min) [ 0 AMBULATING on Room Air] Oxygen Flow Rate (L/min) [At 0 REST on Room Air] Oxygen Flow Rate (L/min) 2 Oxygen Delivery Method Nasal Cannula Weight: 153 lb 14.122 oz Body Mass Index (BMI) 22.1 Intake and Output for Last 24 Hours 11/22/18 11/23/18 11/24/18 23:59 23:59 23:59 Intake Total 340 / 340 1639 / 1639 Output Total 375 / 375 7510 / 7510 Balance -35 / -35 -5871 / -5871 Microbiology Past 72 Hours 11/23/18 13:40 Streptococcus pneumoniae Antigen (M - Final Urine, Clean Catch 11/23/18 13:40 Legionella Antigen - Final Urine, Clean Catch Laboratory Tests Past 24 Hrs 11/23/18 11/23/18 11/23/18 13:40 13:40 16:04 WBC RBC Hgb Hct MCV MCH MCHC RDW RDW Differential Plt Count MPV Immature Gran % (Auto) Neut % (Auto) Lymph % (Auto) [place] % (Auto) Eos % (Auto) Baso % (Auto) Absolute Neuts (auto) Absolute Lymphs (auto) Total Counted PT INR Sodium Potassium Chloride Carbon Dioxide Anion Gap BUN Creatinine Estim Creat Clear Calc Est GFR (MDRD) Af Amer Est GFR (MDRD) Non-Af BUN/Creatinine Ratio Glucose Lactic Acid 1.5 Calcium Magnesium Urine RBC 0 SEEN Urine WBC 0 SEEN Ur Squamous Epith Cells 0 SEEN Urine Bacteria 0 SEEN Urine Mucus 0 SEEN Urine Opiates Screen NEGATIVE Urine Methadone Screen NEGATIVE Ur Barbiturates Screen NEGATIVE Ur Phencyclidine Scrn NEGATIVE Ur Amphetamines Screen POSITIVE H U Methamphetamin-MDMA NEGATIVE U Benzodiazepines Scrn NEGATIVE Urine Cocaine Screen NEGATIVE U Cannabinoids Screen NEGATIVE MRSA (PCR) 11/23/18 11/24/18 11/24/18 17:08 06:19 06:19 WBC RBC Hgb Hct MCV MCH MCHC RDW RDW Differential Plt Count MPV Immature Gran % (Auto) Neut % (Auto) Lymph % (Auto) [place] % (Auto) Eos % (Auto) Baso % (Auto) Absolute Neuts (auto) Absolute Lymphs (auto) Total Counted PT 17.2 H INR 1.4 Sodium 138 Potassium 4.0 Chloride 99 Carbon Dioxide 27.0 Anion Gap 12 BUN 17 Creatinine 0.70 Estim Creat Clear Calc 110.79 Est GFR (MDRD) Af Amer 147 Est GFR (MDRD) Non-Af 122 BUN/Creatinine Ratio 24.2 H Glucose 127 H Lactic Acid Calcium 7.8 L Magnesium 1.5 L Urine RBC Urine WBC Ur Squamous Epith Cells Urine Bacteria Urine Mucus Urine Opiates Screen Urine Methadone Screen Ur Barbiturates Screen Ur Phencyclidine Scrn Ur Amphetamines Screen U Methamphetamin-MDMA U Benzodiazepines Scrn Urine Cocaine Screen U Cannabinoids Screen MRSA (PCR) POSITIVE H 11/24/18 11/24/18 06:19 06:19 WBC 10.2 RBC 4.72 Hgb 12.8 L Hct 40.9 MCV 86.7 MCH 27.1 MCHC 31.3 L RDW 19.6 H RDW Differential 60.4 H Plt Count 184 MPV 9.6 Immature Gran % (Auto) 0.200 Neut % (Auto) 89.5 H Lymph % (Auto) 4.3 L [place] % (Auto) 5.9 Eos % (Auto) 0.1 Baso % (Auto) 0.0 Absolute Neuts (auto) 9.1 H Absolute Lymphs (auto) 0.44 L Total Counted Not Reportable PT INR Sodium Potassium Chloride Carbon Dioxide Anion Gap BUN Creatinine Estim Creat Clear Calc Est GFR (MDRD) Af Amer Est GFR (MDRD) Non-Af BUN/Creatinine Ratio Glucose Lactic Acid Calcium Magnesium Cancelled Urine RBC Urine WBC Ur Squamous Epith Cells Urine Bacteria Urine Mucus Urine Opiates Screen Urine Methadone Screen Ur Barbiturates Screen Ur Phencyclidine Scrn Ur Amphetamines Screen U Methamphetamin-MDMA U Benzodiazepines Scrn Urine Cocaine Screen U Cannabinoids Screen MRSA (PCR) Medical Necessity - Tobacco Use Smoking Status: Current every day smoker Assessment/Plan All Active Problems (Last Updated 11/23/18 @ 18:10 by Julián Armenta, ) Acute respiratory failure with hypoxia (Acute) Septic shock (Resolved) Severe sepsis (Acute) Systolic CHF (Acute) Septic shock (Ruled-out) COPD with acute exacerbation (Resolved) Acute respiratory failure with hypoxemia (Resolved) Acute bronchitis (Resolved) COPD exacerbation (Resolved) HCAP (healthcare-associated pneumonia) (Resolved) Hypotension (Resolved) MRSA (methicillin resistant Staphylococcus aureus) infection (Resolved) NSVT (nonsustained ventricular tachycardia) (Resolved) Near syncope (Resolved) 1. Acute respiratory failure 2/2 systolic CHF exacerbation complicated by ischemic cardiomyopathy and pulmonary hypertension - acute respiratory failure resolved:weaned off oxygen. COPD Exac and Pna ruled out. DC steroids & IV abx. Continue lasix, aerosols. EF 15%. AICD in place. Diuresed about 6 liters so far. -Pulmonology following. -Hyperkalemia resolved 2. Lactic acidosis -resolved, secondary to initial hypoxia. 3. CAD - asa/statin/plavix/coreg/arb/imdur 4. Polysubstance abuse - tox screen showing amphetamines. Reported hx of nicotine/meth/alcohol abuse. Patient stated that he is positive for amphetamines because somebody gave him Adderall. 5. Anxiety -PRN anxiolytics. 6. Iron def anemia - on po iron. Hgb normal. 7. COPD-not acute exacerbation-continue aerosols. CTA demonstrates emphysema. 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 DVT ppx: lovenox DC planning: PTOT evals This patient was seen by Scott Nemuann PA-C under the supervision of Doctor Armenta.
[2018-11-24] MEDS: Acetaminophen 325 MG Tablet 650 MG PO ×2 (16:18→21:02)
[2018-11-24] MEDS: Magnesium Sulfate 4gm/100mL 4 GM/100 ML IV.SOLN. IV (19:52)
[2018-11-24] MEDS: 0.9% NaCl Peripheral Flush Adult/Peds IV (19:53)
[2018-11-24] MEDS: Atorvastatin Calcium 80 MG Tablet PO (21:09)
[2018-11-24] MEDS: Gabapentin 600 MG Tablet PO (21:09)
[2018-11-25] VITALS (16 sets, daily range): BP systolic 107–136; BP diastolic 64–85; PULSE 83–101; RESP 16–20; TEMP 36.4–36.6; O2SAT 94–99
[2018-11-25 05:45] LABS: Anion Gap 10 (5-15); BUN 27 mg/dL (7-18); BUN/Creat Ratio 36.7 RATIO (10-20); Calcium,Total 8.1 mg/dL (8.5-10.1); Chloride 97 mmol/L (98-107); Creatinine, Serum 0.74 mg/dL (0.70-1.30); EST Glomerular Filtration Rate 116 mL/min (>60); Est Glom Filt Rate - Afr Amer 140 mL/min (>60); Glucose 117 mg/dL (74-106); Magnesium 2.5 mg/dL (1.6-2.6); Sodium Level 136 mmol/L (136-145)
[2018-11-25] MEDS: Ipratropium/Albuterol Sulfate 3 ML AMPUL.NEB INHALATION ×3 (06:45→19:13)
[2018-11-25] MEDS: Ferrous Gluconate 324 MG Tablet PO ×2 (08:42→17:12)
[2018-11-25] MEDS: Aspirin E.C. 81 MG Tablet PO (08:43)
[2018-11-25] MEDS: Carvedilol 6.25 MG Tablet PO ×2 (08:43→22:15)
[2018-11-25] MEDS: Clopidogrel Bisulfate 75 MG Tablet PO (08:43)
[2018-11-25] MEDS: Losartan Potassium 25 MG Tablet PO (08:43)
[2018-11-25] MEDS: Isosorbide Mononitrate 30 MG Tablet PO (08:43)
[2018-11-25] MEDS: Furosemide 40 MG Tablet PO ×2 (08:47→17:12)
[2018-11-25 09:10] LABS: Vancomycin, Trough Level 2.9 ug/mL (5.0-15.0)
--- NOTE | 2018-11-25 13:35 | CASEMGMT ---
[facility] assessment: Face to Face with patient for initial transition planning/care coordination assessment. RN SHELIA introduced self and role at [facility], pt voices understanding and consents to assessment at this time. Pt is sitting up in bed in no distress at this time. Pt is A/Ox4 at this time and answers questions appropriately at this time. Pt seems annoyed with this RN SHELIA asking questions at this time. Care providers, pharmacy, and demographics verified at this time. PCP: Tameka Oquendo Specialists: [facility] cardio; pt states never f/u with ward Ahmadi Preferred Pharmacy: [facility] Insurance: [employer] Prescription Benefit: [facility], pt states concerns with covering co-pays for meds and states 'that is why I am like this because I can't pay for my meds.' Taylor ARANA aware, voices understanding. Living Will/HPOA: Pt states has LW/HPOA and his brother, Angel Cronin, is HPOA. AD's are on file at [facility] at this time. LNOK: Angel Cronin, brother Living Arrangements: Pt states is living with a friend in mobile home and states just moved there so he does not know the address yet. Pt states no concerns at home at this time. Pt is independent with ADL's. Transportation: Pt states friends/family drive but does states concerns with getting to appointments at times. Taylor ARANA aware, voices understanding. DME/HHC: Pt states has a walker and nebulizer and states no need for any further DME at this time. Pt states has had HHC in [place] in the past and states has never been to SNF and 'will never go.' Pt states no concerns with going home at time of discharge. Pt states is disabled. Pt states quit smoking 1 week ago and very seldomly drinks ETOH. Pt states no further concerns/needs at this time. CM to follow for any further discharge planning/needs. Advised pt to ask for CM if any further questions/concerns/needs arise, voices understanding. Plan[place]
--- NOTE | 2018-11-25 13:52 | PN_ITS ---
<Scott Neumann - Last Filed: 11/25/18 13:49> Patient Problems: Active and Suspected Problems (Last Updated 11/23/18 @ 18:10 by Julián Armenta DO) Acute respiratory failure with hypoxia (Acute) Severe sepsis (Acute) Systolic CHF (Acute) Subjective: Pt remains weak, somewhat SOB with exertion. No cough, fevers, chills, LE edema. Plan is home tomorrow. PT OT to eval today. He remains somewhat agitated. We discussed the importance of compliance with lasix therapy at home given his hx of noncompliance domcumented throughout the EMR. - Physical Exam General: Alert, Oriented x3, Cooperative HEENT: Atraumatic, PERRLA, EOMI, Normocephalic Neck: Supple, No JVD, Negative Carotid Bruits Lungs: Diminished Cardiovascular: Regular rate, No murmurs Abdomen: Bowel Sounds Present, Soft, Non Tender Extremities: No edema, Capillary Refill Less than 3 Seconds Skin: No rashes, No breakdown Musculoskeletal: No Tenderness to Palpation of Joints or Extremities Neurological: Cranial nerves II-XII grossly intact Psych/Mental Status: Normal Affect, Appropriate, Alert and oriented to time, place, person, mood and affect Vital Signs Temp Pulse Resp BP Pulse Ox 97.6 F L 86 18 111/67 94 11/25/18 13:36 11/25/18 13:36 11/25/18 13:36 11/25/18 13:36 11/25/18 13:36 Oxygen Flow Rate (L/min) [ 0 AMBULATING on Room Air] Oxygen Flow Rate (L/min) [At 0 REST on Room Air] Oxygen Flow Rate (L/min) 2 Oxygen Delivery Method Room Air Weight: 153 lb 7.068 oz Body Mass Index (BMI) 22.1 Intake and Output for Last 24 Hours 11/23/18 11/24/18 11/25/18 23:59 23:59 23:59 Intake Total 340 / 340 2809 / 2809 220 / 220 Output Total 375 / 375 9735 / 9735 1250 / 1250 Balance -35 / -35 -6926 / -6926 -1030 / -1030 Microbiology Past 72 Hours 11/23/18 13:40 Streptococcus pneumoniae Antigen (M - Final Urine, Clean Catch 11/23/18 13:40 Legionella Antigen - Final Urine, Clean Catch Laboratory Tests Past 24 Hrs 11/25/18 11/25/18 05:10 08:20 Sodium 136 Potassium 4.0 Chloride 97 L Carbon Dioxide 29.0 Anion Gap 10 BUN 27 H Creatinine 0.74 Estim Creat Clear Calc 104.80 Est GFR (MDRD) Af Amer 140 Est GFR (MDRD) Non-Af 116 BUN/Creatinine Ratio 36.7 H Glucose 117 H Calcium 8.1 L Magnesium 2.5 Vancomycin Trough 2.9 L Medical Necessity - Tobacco Use Smoking Status: Current every day smoker Assessment/Plan All Active Problems (Last Updated 11/23/18 @ 18:10 by Julián Armenta DO) Acute respiratory failure with hypoxia (Acute) Septic shock (Resolved) Severe sepsis (Acute) Systolic CHF (Acute) Septic shock (Ruled-out) COPD with acute exacerbation (Resolved) Acute respiratory failure with hypoxemia (Resolved) Acute bronchitis (Resolved) COPD exacerbation (Resolved) HCAP (healthcare-associated pneumonia) (Resolved) Hypotension (Resolved) MRSA (methicillin resistant Staphylococcus aureus) infection (Resolved) NSVT (nonsustained ventricular tachycardia) (Resolved) Near syncope (Resolved) 1. Acute respiratory failure 2/2 systolic CHF exacerbation complicated by ischemic cardiomyopathy and pulmonary hypertension - acute respiratory failure resolved:weaned off oxygen. COPD Exac and Pna ruled out. DC steroids & IV abx. Continue lasix, aerosols. EF 15%. AICD in place. Diuresed about 8 liters so far. Weight down 167 to 153 -Transition to PO lasix -Pulmonology following. -mag repleted yesterday 2. Lactic acidosis -resolved, secondary to initial hypoxia. 3. CAD - asa/statin/plavix/coreg/arb/imdur 4. Polysubstance abuse - tox screen showing amphetamines. Reported hx of nicotine/meth/alcohol abuse. Patient stated that he is positive for amphetamines because somebody gave him Adderall. 5. Anxiety -PRN anxiolytics. 6. Iron def anemia - on po iron. Hgb normal. 7. COPD-not acute exacerbation-continue aerosols. CTA demonstrates emphysema. 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 DVT ppx: lovenox DC planning: PTOT evals, likely DC home tomorrow. This patient was seen by Scott Neumann PA-C under the supervision of Doctor Solorzano. <Jian Solozrano - Last Filed: 11/25/18 14:22> - Physical Exam Vital Signs Temp Pulse Resp BP Pulse Ox 97.6 F L 86 18 111/67 94 11/25/18 13:36 11/25/18 13:36 11/25/18 13:36 11/25/18 13:36 11/25/18 13:36 Oxygen Flow Rate (L/min) [ 0 AMBULATING on Room Air] Oxygen Flow Rate (L/min) [At 0 REST on Room Air] Oxygen Flow Rate (L/min) 2 Oxygen Delivery Method Room Air Weight: 69.6 kg Body Mass Index (BMI) 22.1 Intake and Output for Last 24 Hours 11/23/18 11/24/18 11/25/18 23:59 23:59 23:59 Intake Total 340 / 340 2809 / 2809 220 / 220 Output Total 375 / 375 9735 / 9735 1250 / 1250 Balance -35 / -35 -6926 / -6926 -1030 / -1030 Microbiology Past 72 Hours 11/23/18 13:40 Streptococcus pneumoniae Antigen (M - Final Urine, Clean Catch 11/23/18 13:40 Legionella Antigen - Final Urine, Clean Catch Laboratory Tests Past 24 Hrs 11/25/18 11/25/18 05:10 08:20 Sodium 136 Potassium 4.0 Chloride 97 L Carbon Dioxide 29.0 Anion Gap 10 BUN 27 H Creatinine 0.74 Estim Creat Clear Calc 104.80 Est GFR (MDRD) Af Amer 140 Est GFR (MDRD) Non-Af 116 BUN/Creatinine Ratio 36.7 H Glucose 117 H Calcium 8.1 L Magnesium 2.5 Vancomycin Trough 2.9 L Assessment/Plan This patient was seen in conjunction with Scott Neumann PA-C . I have independently interviewed and examined the patient and reviewed pertinent historical, laboratory, and other data. Please refer to Scott Neumann PA-C note for details of this patient's presentation, findings, and recommendations. I have reviewed Scott Neumann PA-C note and concur with documented findings. In brief, patient is a-year-old male admitted with progressive shortness of breath and assessment of acute hypoxic respiratory failure secondary to CHF exacerbation made admitted to a monitored bed for subsequent management Physical Examination: GENERAL: Dyspneic at rest HEENT: Atraumatic; EYES; Anicteric, NECK; supple, normal thyroid, RESPIRATORY: Diminished to auscultation bilaterally, CARDIOVASCULAR: Regular S1 S2, GI: soft, non-tender, normoactive bowel sounds, : No Renal angle tenderness; NEURO: Awake; no lateralizing signs. PSYCH; Normal affect Assessment: 1. Acute hypoxic respiratory failure secondary to CHF 2. Acute on chronic systolic heart failure with EF of 15% 3. CAD 4. Ischemic cardiomyopathy with an ejection fraction of 50% 5. Polysubstance abuse 6. COPD not in exacerbation 7. Anxiety disorder 8. Anemia secondary to anemia of chronic disorder Recommendations: 1. I have discussed the results of my overview and impressions with the patient 2. Options for management were reviewed Code Visit Inpatient E&M: 01845 Subs Hosp L2
--- NOTE | 2018-11-25 14:47 | PCM.PROGNOTE ---
Patient Problems: Active and Suspected Problems (Last Updated 11/23/18 @ 18:10 by Julián Armenta DO) Acute respiratory failure with hypoxia (Acute) Severe sepsis (Acute) Systolic CHF (Acute) Subjective: The patient was seen and examined at the bedside this morning. Events from the last 24 hours have been reviewed. The patient is currently afebrile, hemodynamically stable and maintaining appropriate oxygen saturations on room air. Objective: The patient's most recent lab work, culture data and imaging studies have all been personally reviewed. Strep and urine Legionella antigens were both negative. Blood cultures have been unrevealing to date. - Physical Exam General: Alert, Cooperative, No apparent distress HEENT: Atraumatic, PERRLA, Normocephalic Oral: No Gingival or Mucosal Lesions/ Ulcerations Neck: Supple, No Nodes, Trachea Midline Lungs: No rhonchi, No wheeze, No rales, Diminished Cardiovascular: Regular rate, Regular Rhythm, Normal S1, Normal S2, Murmur Abdomen: Bowel Sounds Present, Soft, Non Tender Extremities: No cyanosis, Clubbing, Edema Skin: No breakdown Musculoskeletal: No Tenderness to Palpation of Joints or Extremities Lymphatic: No Cervical, Supraclavicular, or Inguinal Adenopathy Neurological: Cranial nerves II-XII grossly intact, Neuro grossly intact Psych/Mental Status: Normal Affect, Appropriate Vital Signs Temp Pulse Resp BP Pulse Ox 36.4 C L 86 18 111/67 94 11/25/18 13:36 11/25/18 13:36 11/25/18 13:36 11/25/18 13:36 11/25/18 13:36 Oxygen Flow Rate (L/min) [ 0 AMBULATING on Room Air] Oxygen Flow Rate (L/min) [At 0 REST on Room Air] Oxygen Flow Rate (L/min) 2 Oxygen Delivery Method Room Air Weight: 153 lb 7.068 oz Body Mass Index (BMI) 22.1 Intake and Output for Last 24 Hours 11/23/18 11/24/18 11/25/18 23:59 23:59 23:59 Intake Total 340 / 340 2809 / 2809 220 / 220 Output Total 375 / 375 9735 / 9735 1250 / 1250 Balance -35 / -35 -6926 / -6926 -1030 / -1030 Microbiology Past 72 Hours 11/23/18 13:40 Streptococcus pneumoniae Antigen (M - Final Urine, Clean Catch 11/23/18 13:40 Legionella Antigen - Final Urine, Clean Catch Laboratory Tests Past 24 Hrs 11/25/18 11/25/18 05:10 08:20 Sodium 136 Potassium 4.0 Chloride 97 L Carbon Dioxide 29.0 Anion Gap 10 BUN 27 H Creatinine 0.74 Estim Creat Clear Calc 104.80 Est GFR (MDRD) Af Amer 140 Est GFR (MDRD) Non-Af 116 BUN/Creatinine Ratio 36.7 H Glucose 117 H Calcium 8.1 L Magnesium 2.5 Vancomycin Trough 2.9 L Clinical Impression(s) from Imaging Studies Chest X-Ray 11/23/18 11:55 IMPRESSION: Stable, nonacute portable x-ray examination of the chest. Electronically Signed: Archie Bermudez MD at 12:27 EST , Service support , Chest CTA 11/23/18 12:23 IMPRESSION: 1. Limited by motion. No demonstrated central or obvious segmental pulmonary embolism. 2. Interval (since 10/14/2018) development of bilateral lower lobe and right upper lobe infiltrate suggesting pneumonia/pneumonitis. No cavitating process demonstrated. 3. Centrilobular emphysema. Electronically Signed: Archie Bermudez MD at 13:31 EST , Service support , Medical Necessity - Tobacco Use Smoking Status: Current every day smoker Assessment/Plan All Active Problems (Last Updated 11/23/18 @ 18:10 by Julián Armenta DO) Acute respiratory failure with hypoxia (Acute) Septic shock (Resolved) Severe sepsis (Acute) Systolic CHF (Acute) Septic shock (Ruled-out) COPD with acute exacerbation (Resolved) Acute respiratory failure with hypoxemia (Resolved) Acute bronchitis (Resolved) COPD exacerbation (Resolved) HCAP (healthcare-associated pneumonia) (Resolved) Hypotension (Resolved) MRSA (methicillin resistant Staphylococcus aureus) infection (Resolved) NSVT (nonsustained ventricular tachycardia) (Resolved) Near syncope (Resolved) RECOMMENDATIONS: 1. Continue diuretic therapy as tolerated. 2. Encourage incentive spirometer use and mobilize patient as tolerated. Physical therapy to evaluate patient. 3. Outpatient pulmonary follow-up. Will sign off at this time. Please call with any questions. IMPRESSIONS: 1. Acute hypoxic respiratory failure secondary to acute on chronic systolic congestive heart failure The patient's tachypnea on presentation is consistent with Max-Fofana respiration. Low clinical index of suspicion for underlying pulmonary infectious process. Continue with diuresis as tolerated. 2. Hypertension/possible acute on chronic systolic congestive heart failure/coronary artery disease/history of ICD Continue current medical management. 3. Tobacco abuse/chronic anemia/history of noncompliance/delirium-metabolic encephalopathy/reported COPD Complicates care, management, recovery and prognosis. Patient has had multiple presentations with leaving AMA over the last 3 months. This is likely complicating his long-term prognosis. Patient likely has an element of COPD given radiologic findings, but this will need to be verified with outpatient workup. This note was generated with [employer] dictation software. It may contain incorrect words, spelling, and punctuation that were not noted in checking the note before signing. Code Visit Inpatient E&M: 00268 Subs Hosp L2
--- NOTE | 2018-11-25 14:51 | PN_ITS ---
Patient Problems: Active and Suspected Problems (Last Updated 11/23/18 @ 18:10 by Julián Armenta DO) Acute respiratory failure with hypoxia (Acute) Severe sepsis (Acute) Systolic CHF (Acute) Subjective: The patient was seen and examined at the bedside this morning. Events from the last 24 hours have been reviewed. The patient is currently afebrile, hemodynamically stable and maintaining appropriate oxygen saturations on room air. Objective: The patient's most recent lab work, culture data and imaging studies have all been personally reviewed. Strep and urine Legionella antigens were both negative. Blood cultures have been unrevealing to date. - Physical Exam General: Alert, Cooperative, No apparent distress HEENT: Atraumatic, PERRLA, Normocephalic Oral: No Gingival or Mucosal Lesions/ Ulcerations Neck: Supple, No Nodes, Trachea Midline Lungs: No rhonchi, No wheeze, No rales, Diminished Cardiovascular: Regular rate, Regular Rhythm, Normal S1, Normal S2, Murmur Abdomen: Bowel Sounds Present, Soft, Non Tender Extremities: No cyanosis, Clubbing, Edema Skin: No breakdown Musculoskeletal: No Tenderness to Palpation of Joints or Extremities Lymphatic: No Cervical, Supraclavicular, or Inguinal Adenopathy Neurological: Cranial nerves II-XII grossly intact, Neuro grossly intact Psych/Mental Status: Normal Affect, Appropriate Vital Signs Temp Pulse Resp BP Pulse Ox 36.4 C L 86 18 111/67 94 11/25/18 13:36 11/25/18 13:36 11/25/18 13:36 11/25/18 13:36 11/25/18 13:36 Oxygen Flow Rate (L/min) [ 0 AMBULATING on Room Air] Oxygen Flow Rate (L/min) [At 0 REST on Room Air] Oxygen Flow Rate (L/min) 2 Oxygen Delivery Method Room Air Weight: 153 lb 7.068 oz Body Mass Index (BMI) 22.1 Intake and Output for Last 24 Hours 11/23/18 11/24/18 11/25/18 23:59 23:59 23:59 Intake Total 340 / 340 2809 / 2809 220 / 220 Output Total 375 / 375 9735 / 9735 1250 / 1250 Balance -35 / -35 -6926 / -6926 -1030 / -1030 Microbiology Past 72 Hours 11/23/18 13:40 Streptococcus pneumoniae Antigen (M - Final Urine, Clean Catch 11/23/18 13:40 Legionella Antigen - Final Urine, Clean Catch Laboratory Tests Past 24 Hrs 11/25/18 11/25/18 05:10 08:20 Sodium 136 Potassium 4.0 Chloride 97 L Carbon Dioxide 29.0 Anion Gap 10 BUN 27 H Creatinine 0.74 Estim Creat Clear Calc 104.80 Est GFR (MDRD) Af Amer 140 Est GFR (MDRD) Non-Af 116 BUN/Creatinine Ratio 36.7 H Glucose 117 H Calcium 8.1 L Magnesium 2.5 Vancomycin Trough 2.9 L Clinical Impression(s) from Imaging Studies Chest X-Ray 11/23/18 11:55 IMPRESSION: Stable, nonacute portable x-ray examination of the chest. Electronically Signed: Archie Bermudez MD at 12:27 EST , Service support , Chest CTA 11/23/18 12:23 IMPRESSION: 1. Limited by motion. No demonstrated central or obvious segmental pulmonary embolism. 2. Interval (since 10/14/2018) development of bilateral lower lobe and right upper lobe infiltrate suggesting pneumonia/pneumonitis. No cavitating process demonstrated. 3. Centrilobular emphysema. Electronically Signed: Archie Bermudez MD at 13:31 EST , Service support , Medical Necessity - Tobacco Use Smoking Status: Current every day smoker Assessment/Plan All Active Problems (Last Updated 11/23/18 @ 18:10 by Julián Armenta DO) Acute respiratory failure with hypoxia (Acute) Septic shock (Resolved) Severe sepsis (Acute) Systolic CHF (Acute) Septic shock (Ruled-out) COPD with acute exacerbation (Resolved) Acute respiratory failure with hypoxemia (Resolved) Acute bronchitis (Resolved) COPD exacerbation (Resolved) HCAP (healthcare-associated pneumonia) (Resolved) Hypotension (Resolved) MRSA (methicillin resistant Staphylococcus aureus) infection (Resolved) NSVT (nonsustained ventricular tachycardia) (Resolved) Near syncope (Resolved) RECOMMENDATIONS: 1. Continue diuretic therapy as tolerated. 2. Encourage incentive spirometer use and mobilize patient as tolerated. Physical therapy to evaluate patient. 3. Outpatient pulmonary follow-up. Will sign off at this time. Please call with any questions. IMPRESSIONS: 1. Acute hypoxic respiratory failure secondary to acute on chronic systolic congestive heart failure The patient's tachypnea on presentation is consistent with Max-Fofana respiration. Low clinical index of suspicion for underlying pulmonary infectious process. Continue with diuresis as tolerated. 2. Hypertension/possible acute on chronic systolic congestive heart failure/coronary artery disease/history of ICD Continue current medical management. 3. Tobacco abuse/chronic anemia/history of noncompliance/delirium-metabolic encephalopathy/reported COPD Complicates care, management, recovery and prognosis. Patient has had multiple presentations with leaving AMA over the last 3 months. This is likely complicating his long-term prognosis. Patient likely has an element of COPD given radiologic findings, but this will need to be verified with outpatient workup. This note was generated with [employer] dictation software. It may contain incorrect words, spelling, and punctuation that were not noted in checking the note before signing. Code Visit Inpatient E&M: 62118 Subs Hosp L2
--- NOTE | 2018-11-25 22:03 | EKG12_ITS ---
Test Reason : CP Blood Pressure : / mmHG Vent. Rate : 090 BPM Atrial Rate : 090 BPM P-R Int : 192 ms QRS Dur : 104 ms QT Int : 388 ms P-R-T Axes : 083 -60 094 degrees QTc Int : 474 ms Normal sinus rhythm Possible Left atrial enlargement Left axis deviation Septal infarct , age undetermined T wave abnormality, consider lateral ischemia Abnormal ECG Confirmed by PRETTY BARLOW, HIRA ([id number]), city editor TEZ PETERSON ([id number]) on 11/28/2018 4:04:57 PM Referred By: ERNESTO Confirmed By:HIRA OLSEN MD
[2018-11-25] MEDS: Heparin Injection (Vial) 5,000 UNIT/ML VIAL 5000 UNIT SC (22:15)
[2018-11-25] MEDS: Atorvastatin Calcium 80 MG Tablet PO (22:16)
[2018-11-25] MEDS: Gabapentin 600 MG Tablet PO (22:17)
[2018-11-25] MEDS: MELATONIN 3 MG TABLET PO (22:17)
[2018-11-26 03:00] VITALS: PULSE 82
[2018-11-26 03:15] VITALS: BP 98/58; PULSE 88; RESP 18; TEMP 36.9; O2SAT 96
[2018-11-26 06:36] VITALS: PULSE 91; RESP 16; O2SAT 94
[2018-11-26] MEDS: Ipratropium/Albuterol Sulfate 3 ML AMPUL.NEB INHALATION (06:37)
[2018-11-26 06:59] VITALS: PULSE 93
[2018-11-26 09:04] VITALS: BP 131/77; PULSE 93; RESP 18; TEMP 36.9; O2SAT 97
[2018-11-26] MEDS: Isosorbide Mononitrate 30 MG Tablet PO (09:09)
[2018-11-26] MEDS: Clopidogrel Bisulfate 75 MG Tablet PO (09:09)
[2018-11-26] MEDS: Ferrous Gluconate 324 MG Tablet PO (09:09)
[2018-11-26] MEDS: Losartan Potassium 25 MG Tablet PO (09:09)
[2018-11-26] MEDS: Carvedilol 6.25 MG Tablet PO (09:09)
[2018-11-26] MEDS: Furosemide 40 MG Tablet PO (09:09)
[2018-11-26] MEDS: Aspirin E.C. 81 MG Tablet PO (09:09)
--- NOTE | 2018-11-26 10:23 | DCINST_ITS ---
- Discharge Diagnoses Current Active Problems: Current Active and Chronic Problems (Last Updated 11/23/18 @ 18:10 by Julián Armenta DO) Acute respiratory failure with hypoxia (Acute) Severe sepsis (Acute) Systolic CHF (Acute) You will use the following diet at home:: Cardiac - <2 grams sodium daily Your food should be the consistency of: Regular Your liquids should be the consistency of: Regular/Thin Discharge Activity: Return to Normal Activity, - - Check weight daily, if greater than 5 pound increase in 24 hours, please call your doctor to discuss adjusting your lasix dose Allergies/Adverse Reactions: Allergies No Known Allergies Allergy (Verified 11/23/18 11:39) Medications to take at Discharge Nitroglycerin [Nitrostat] 0.4 mg SUBLINGUAL Q5M PRN #1 bottle 12/14/17 ferrous gluconate 324 mg (37.5 mg iron) tablet 325 mg PO BIDCM #60 tab 01/15/18 Gabapentin [Neurontin] 600 mg PO QHS 08/27/18 Albuterol Inhaler [Ventolin Hfa] 2 puff INHALATION Q4H PRN PRN #1 inhaler 10/01 01/17 aspirin 81 mg tablet,delayed release 81 mg PO DAILY #90 tab 10/17/18 atorvastatin 80 mg tablet 80 mg PO QHS #90 tab 10/17/18 carvedilol 6.25 mg tablet 6.25 mg PO BID #90 tab 10/17/18 clopidogrel 75 mg tablet 75 mg PO DAILY #90 tab 10/17/18 hydroxyzine pamoate 25 mg capsule 25 mg PO TID PRN PRN #30 cap 10/17/18 isosorbide mononitrate ER 30 mg tablet,extended release 24 hr 30 mg PO DAILY #90 tab 10/17/18 losartan 25 mg tablet 25 mg PO DAILY #90 tab 10/17/18 potassium chloride ER 20 mEq tablet,extended release(part/cryst) 20 meq PO DAILY #90 tab 10/17/18 Furosemide [Lasix] 40 mg PO BID@1000,1800 #60 tablet 11/26/18 The following prescriptions were given: Furosemide [Lasix] 40 mg PO BID@1000,1800 #60 tablet Orders to be completed after discharge: Basic Metabolic Profile (BMP) Time Frame: 5 Days, Location: Laboratory Primary Care Physician: Berna Oquendo NP-C [Primary Care Provider] - Please follow up with your Primary Care Physician in: 1-2 weeks Test Results: Test results from this visit will be discussed in further detail at your follow- up appointment, if applicable. Proposed Discharge Date: 11/26/18
[2018-11-26 10:32] VITALS: PULSE 101
--- NOTE | 2018-11-26 10:44 | CASEMGMT ---
This RN CM to bedside to provide pt with transportation assist info at this time. Pt does have [facility] listed as secondary today and this RN CM once again inquired about Rx coverage and pt states 'I don't know, I just know they wouldn't fill them because they cost too much.' Call to [facility] after ok from pt and per tech, pt never picked up meds. Per tech, pt's total co-pay for all 10 meds is $26.60. Per tech, he tried to run meds through [facility] for pt at this time and system states that pt is not active with [facility] at this time. This RN CM to room to update pt and pt states that he doesn't have the money. This RN CM offered resources for [facility] and pt states 'I don't need any hand outs from people, I ain't going to any of those places, I just won't take the meds.' This RN CM advised pt that he needs the meds and that he will just end up back here if he doesn't take them. Pt states 'I ain't coming back here.' Anabelle AMATO aware of all, voices understanding. Pt declines any other assistance from this RN CM at this time. Pt voices no further concerns/needs. SStaten RN CM
--- NOTE | 2018-11-26 11:15 | NURSING ---
PT LEFT PRIOR TO RECEIVING D/C INFO.
--- NOTE | 2018-11-26 11:25 | PHA.DC.MR ---
Pharmacy Service has performed discharge medication reconciliation for this patient. No new medications/ changes in frequency of current medications were noted. A medication reconciliation was conducted based on home medication list. The patient's discharge medication list was reviewed for discrepancies and discrepancies were resolved. Home Medications Nitroglycerin [Nitrostat] 0.4 mg SUBLINGUAL Q5M PRN #1 bottle 12/14/17 ferrous gluconate 324 mg (37.5 mg iron) tablet 325 mg PO BIDCM #60 tab 01/15/18 Gabapentin [Neurontin] 600 mg PO QHS 08/27/18 Albuterol Inhaler [Ventolin Hfa] 2 puff INHALATION Q4H PRN PRN #1 inhaler 10/14/18 aspirin 81 mg tablet,delayed release 81 mg PO DAILY #90 tab 10/17/18 atorvastatin 80 mg tablet 80 mg PO QHS #90 tab 10/17/18 carvedilol 6.25 mg tablet 6.25 mg PO BID #90 tab 10/17/18 clopidogrel 75 mg tablet 75 mg PO DAILY #90 tab 10/17/18 hydroxyzine pamoate 25 mg capsule 25 mg PO TID PRN PRN #30 cap 10/17/18 isosorbide mononitrate ER 30 mg tablet,extended release 24 hr 30 mg PO DAILY #90 tab 10/17/18 losartan 25 mg tablet 25 mg PO DAILY #90 tab 10/17/18 potassium chloride ER 20 mEq tablet,extended release(part/cryst) 20 meq PO DAILY #90 tab 10/17/18 Furosemide [Lasix] 40 mg PO BID@1000,1800 #60 tablet 11/26/18
--- NOTE | 2018-11-26 13:40 | DS.PCM_ITS ---
<Scott Neumann - Last Filed: 11/26/18 13:32> Discharge Date and Diagnosis Date of Admission: 11/23/18 Date of Discharge: 11/26/18 - Primary Discharge Diagnosis Active and Suspected Problems (Last Updated 11/23/18 @ 18:10 by Juláin Armenta DO) Acute respiratory failure with hypoxia (Acute) secondary to acute systolic CHF exacerbation complicated by ischemic cardiomyopathy and pulmonary hypertension Lactic acidosis secondary to hypoxia CAD Polysubstance abuse Anxiety Iron deficiency anemia COPD without acute exacerbation, emphysema - Secondary Discharge Diagnosis Chronic Problems (Last Updated 11/23/18 @ 18:10 by Julián Armenta DO) Elevated troponin (Chronic) ICD (implantable cardioverter-defibrillator) in place (Chronic) History of coronary artery stent placement (Chronic) PCI-RCA and CX Atherosclerosis of coronary artery of [place] heart without angina pectoris (Chronic) LEFT HEART ASSESSMENT Left Ventricular Ejection Fraction: by LV Gram 10-15 % Global Hypokinesis - Severe Depressed Left Ventricular systolic function Normal Left Ventricular End Diastolic Pressure LEFT MAIN: Non-obstructive LEFT ANTERIOR DECENDING ARTERY: Previously placed stent is patent DIAGONAL 1: Ostial - Mild luminal irregularities less than 30% DIAGONAL 2: Proximal - Non-obstructive CIRCUMFLEX ARTERY: MID CIRC: Previously placed stent is patent RIGHT CORONARY ARTERY: MID RCA: Previously placed stent has instent 20 % restenosis with a new at distal edge of stent Iron deficiency anemia (Chronic) COPD (chronic obstructive pulmonary disease) (Chronic) Tobacco abuse (Chronic) Medical non-compliance (Chronic) Ischemic cardiomyopathy (Chronic) Hospital Course and Treatment Imaging Results: RAD/Chest 1 View (Portable) IMPRESSION: Stable, nonacute portable x-ray examination of the chest. CT/CTA Chest W/WO Contrast IMPRESSION: 1. Limited by motion. No demonstrated central or obvious segmental pulmonary embolism. 2. Interval (since 10/14/2018) development of bilateral lower lobe and right upper lobe infiltrate suggesting pneumonia/pneumonitis. No cavitating process demonstrated. 3. Centrilobular emphysema. Consultations: [facility]-pulmonology Operations: None Procedures: None Summary of Care Provided: Hospital course: The patient is a 58 year old M with past medical history of polysubstance abuse, systolic congestive heart failure, gated by ischemic cardiomyopathy and pulmonary hypertension, hypertension, anxiety, iron deficiency anemia, COPD, who presented to the emergency room with complaints of shortness of breath. He was picked up by the emergency squad and was found to have a pulse ox in the low 80s. He was brought to the emergency room and placed on BiPAP initially. He developed significant tachypnea, and ABG was obtained which demonstrated respiratory alkalosis. He was given steroids, Levaquin Ativan in the ER. He was able to be weaned off of oxygen. He did have an elevated lactic acid which was felt to be secondary to the initial hypoxia. On further evaluation he appeared to be in acute systolic CHF exacerbation. CTA demonstrated infiltrates in the chest. He had significant lower extremity edema, and an elevated BNP at 2200. He is admitted to the PCU with concerns for acute systolic CHF exacerbation, COPD exacerbation, and possible HCAP. He admitted to not taking any of his medications at home including his Lasix. He did test positive for amphetamines. Pulmonology was consulted and did not feel there is an infectious process underlying his lung issues and antibiotics were discontinued. Sepsis/pneumonia was ruled out, COPD excaerbation was ruled out. The patient diuresed about 6 L within the initial 24 hours. He had a recent echocardiogram August 2018 so a repeat was deferred, at that time he had an EF of 15% with RVSP of 65 mmHg and a severely hypokinetic heart. His weight improved from 167pounds to 149 pounds during this admission. He remained off of oxygen with ambulation. He was transitioned to oral Lasix. His renal function was stable throughout his stay. The patient was discharged home in stable condition. He was strongly encouraged to be compliant with his daily Lasix therapy which she had not been taking prior to this day. A new prescription was sent to the pharmacy for him along with an order for an outpatient BMP in 5 days. The patient stated that he was not going to bother filling his prescriptions or taking them prior to leaving. He will need to follow-up with his PCP in 1-2 weeks. This patient was seen by Scott Neumann PA-C under the supervision of Doctor Solorzano. [] - Physical Exam General: Alert, Oriented x3, Cooperative HEENT: Atraumatic, PERRLA, EOMI, Normocephalic Neck: Supple, No JVD, Negative Carotid Bruits Lungs: Clear to auscultation, Diminished Cardiovascular: Regular rate, No murmurs Abdomen: Bowel Sounds Present, Soft, Non Tender Extremities: No edema, Capillary Refill Less than 3 Seconds Skin: No rashes, No breakdown Musculoskeletal: No Tenderness to Palpation of Joints or Extremities Neurological: Cranial nerves II-XII grossly intact Psych/Mental Status: Normal Affect, Appropriate, Alert and oriented to time, place, person, mood and affect Vital Signs Temp Pulse Resp BP Pulse Ox 98.5 F 101 H 18 131/77 H 97 11/26/18 09:04 11/26/18 10:32 11/26/18 09:04 11/26/18 09:04 11/26/18 09:04 Oxygen Flow Rate (L/min) [ 0 AMBULATING on Room Air] Oxygen Flow Rate (L/min) [At 0 REST on Room Air] Oxygen Flow Rate (L/min) 2 Oxygen Delivery Method Room Air Weight: 149 lb 11.102 oz Body Mass Index (BMI) 22.1 Intake and Output for Last 24 Hours 11/24/18 11/25/18 11/26/18 23:59 23:59 23:59 Intake Total 2809 / 2809 890 / 890 220 / 220 Output Total 9735 / 9735 1250 / 1250 Balance -6926 / -6926 -360 / -360 220 / 220 Microbiology Past 72 Hours 11/23/18 11:45 Blood Culture - Preliminary Blood Culture (Wb) #2 - Anticubital Left No growth in 48 hours. 11/23/18 11:45 Blood Culture - Preliminary Blood Culture (Wb) - Anticubital Right No growth in 48 hours. 11/23/18 13:40 Streptococcus pneumoniae Antigen (M - Final Urine, Clean Catch 11/23/18 13:40 Legionella Antigen - Final Urine, Clean Catch Discharge Diet: Low fat/ Low Cholesterol, 2000 mg Sodium Diet Discharge Activity: Return to Normal Activity, - - Check weight daily, if greater than 5 pound increase in 24 hours, please call your doctor to discuss adjusting your lasix dose Home Medications: Medications to take at Discharge Nitroglycerin [Nitrostat] 0.4 mg SUBLINGUAL Q5M PRN #1 bottle 12/14/17 ferrous gluconate 324 mg (37.5 mg iron) tablet 325 mg PO BIDCM #60 tab 01/15/18 Gabapentin [Neurontin] 600 mg PO QHS 08/27/18 Albuterol Inhaler [Ventolin Hfa] 2 puff INHALATION Q4H PRN PRN #1 inhaler 10/14/18 aspirin 81 mg tablet,delayed release 81 mg PO DAILY #90 tab 10/17/18 atorvastatin 80 mg tablet 80 mg PO QHS #90 tab 10/17/18 carvedilol 6.25 mg tablet 6.25 mg PO BID #90 tab 10/17/18 clopidogrel 75 mg tablet 75 mg PO DAILY #90 tab 10/17/18 hydroxyzine pamoate 25 mg capsule 25 mg PO TID PRN PRN #30 cap 10/17/18 isosorbide mononitrate ER 30 mg tablet,extended release 24 hr 30 mg PO DAILY #90 tab 10/17/18 losartan 25 mg tablet 25 mg PO DAILY #90 tab 10/17/18 potassium chloride ER 20 mEq tablet,extended release(part/cryst) 20 meq PO DAILY #90 tab 10/17/18 Furosemide [Lasix] 40 mg PO BID@1000,1800 #60 tablet 11/26/18 Following Prescrptions Were Given to Patient: Furosemide [Lasix] 40 mg PO BID@1000,1800 #60 tablet Other Amb Orders: Basic Metabolic Profile (BMP) Time Frame: 5 Days, Location: Laboratory Primary Care Physician: Berna Oquendo NP-C [Primary Care Provider] - Please follow up with your Primary Care Physician in: 1-2 weeks Please Follow Up With: Berna Oquendo NP-C Disposition: Home Minutes spent on discharge:: 35 Patient Condition:: Stable Medical Necessity - Tobacco Use Smoking Status: Current every day smoker Meaningful Use Info Meaningful Use Diagnoses (Choose all that apply): CHF - CHF YUE/ARB ordered at discharge?: Yes Documented LVEF (%): 15 <Jian Solorzano - Last Filed: 11/26/18 16:31> Discharge Date and Diagnosis - Secondary Discharge Diagnosis Chronic Problems (Last Updated 11/23/18 @ 18:10 by Julián Armenta DO) Elevated troponin (Chronic) ICD (implantable cardioverter-defibrillator) in place (Chronic) History of coronary artery stent placement (Chronic) PCI-RCA and CX Atherosclerosis of coronary artery of [place] heart without angina pectoris (Chronic) LEFT HEART ASSESSMENT Left Ventricular Ejection Fraction: by LV Gram 10-15 % Global Hypokinesis - Severe Depressed Left Ventricular systolic function Normal Left Ventricular End Diastolic Pressure LEFT MAIN: Non-obstructive LEFT ANTERIOR DECENDING ARTERY: Previously placed stent is patent DIAGONAL 1: Ostial - Mild luminal irregularities less than 30% DIAGONAL 2: Proximal - Non-obstructive CIRCUMFLEX ARTERY: MID CIRC: Previously placed stent is patent RIGHT CORONARY ARTERY: MID RCA: Previously placed stent has instent 20 % restenosis with a new at distal edge of stent Iron deficiency anemia (Chronic) COPD (chronic obstructive pulmonary disease) (Chronic) Tobacco abuse (Chronic) Medical non-compliance (Chronic) Ischemic cardiomyopathy (Chronic) Hospital Course and Treatment Summary of Care Provided: This patient was seen in conjunction with Scott Neumann PA-C . I have independently interviewed and examined the patient and reviewed pertinent historical, laboratory, and other data. Please refer to Scott Neumann PA-C note for details of this patient's presentation, findings, and recommendations. I have reviewed Scott Neumann PA-C note and concur with documented findings. In brief, patient is a-year-old male admitted with progressive shortness of breath and assessment of acute hypoxic respiratory failure secondary to CHF exacerbation made admitted to a monitored bed for subsequent management Assessment: 1. Acute hypoxic respiratory failure secondary to CHF 2. Acute on chronic systolic heart failure with EF of 15% 3. CAD 4. Ischemic cardiomyopathy with an ejection fraction of 50% 5. Polysubstance abuse 6. COPD not in exacerbation 7. Anxiety disorder 8. Anemia secondary to anemia of chronic disorder Hospital course: As documented above - Physical Exam Vital Signs Temp Pulse Resp BP Pulse Ox 98.5 F 101 H 18 131/77 H 97 11/26/18 09:04 11/26/18 10:32 11/26/18 09:04 11/26/18 09:04 11/26/18 09:04 Oxygen Flow Rate (L/min) [ 0 AMBULATING on Room Air] Oxygen Flow Rate (L/min) [At 0 REST on Room Air] Oxygen Flow Rate (L/min) 2 Oxygen Delivery Method Room Air Weight: 67.9 kg Body Mass Index (BMI) 22.1 Intake and Output for Last 24 Hours 11/24/18 11/25/18 11/26/18 23:59 23:59 23:59 Intake Total 2809 / 2809 890 / 890 220 / 220 Output Total 9735 / 9735 1250 / 1250 Balance -6926 / -6926 -360 / -360 220 / 220 Microbiology Past 72 Hours 11/23/18 11:45 Blood Culture - Preliminary Blood Culture (Wb) #2 - Anticubital Left No growth in 48 hours. 11/23/18 11:45 Blood Culture - Preliminary Blood Culture (Wb) - Anticubital Right No growth in 48 hours. 11/23/18 13:40 Streptococcus pneumoniae Antigen (M - Final Urine, Clean Catch 11/23/18 13:40 Legionella Antigen - Final Urine, Clean Catch Code Visit Inpatient E&M: 51487 Disch Hosp
--- NOTE | 2018-11-27 14:26 | CASEMGMT ---
RN CM Discharge F/U Phone Call LACE: 15 Strata: 4 Discharge date: 11/26/18 Call date: 11/27/18 Call time: 1627 Attempted to reach pt without success at this time, per message, pt's number has been disconnected or changed. This RN CM unable to reach pt at this time. SStaten RN CM Admission dx: Resp failure, Systolic CHF, Pneumonia
== END 2018-11-26 11:15 | disposition home or self-care (01) | DRG 291 ==
LOC: ED 12:50 → PCU 14:50
PROVIDERS: Hospitalist; Internal Medicine Critical Care Medicine; Physician Assistant; Admitting Provider Internal Medicine; Emergency Provider Emergency Medicine; Family Provider Nurse Practitioner Family; PCP Nurse Practitioner Family; Visit Provider Internal Medicine
DX: I11.0 Hypertensive heart disease with heart failure (principal); J96.01 Acute respiratory failure with hypoxia; E87.2 Acidosis; E87.5 Hyperkalemia; I50.23 Acute on chronic systolic (congestive) heart failure; D50.9 Iron deficiency anemia, unspecified; I25.5 Ischemic cardiomyopathy; I27.20 Pulmonary hypertension, unspecified; Z95.810 Presence of automatic (implantable) cardiac defibrillator; I25.10 Atherosclerotic heart disease of native coronary artery without angina pectoris; Z95.5 Presence of coronary angioplasty implant and graft; J43.9 Emphysema, unspecified; F41.9 Anxiety disorder, unspecified; F19.10 Other psychoactive substance abuse, uncomplicated; F17.200 Nicotine dependence, unspecified, uncomplicated; Z91.14 Patient's other noncompliance with medication regimen
CPT/HCPCS: 36415; 36600; 71045; 71275; 80048; 80202; 80307; 80329; 81001; 82009; 82803; 83605; 83735; 83880; 84484; 85025; 85610; 87040; 87449; 87641; 93005; 94002; 94640; 94770; 96374; 99285; J7030; J7040; P9612; Q9967; A4216; G0480; J1940

== ENCOUNTER 2018-12-04 05:34 | Emergency (ER) | payer MEDICARE, SELFPAY ==
[2018-11-23 15:21] VITALS: BMI 22.1
[2018-12-04 05:35] VITALS: PULSE 112; RESP 28; TEMP 37.3; O2SAT 94; BMI 25.1
[2018-12-04 05:45] VITALS: BP 89/66
--- NOTE | 2018-12-04 05:46 | ED.RN ---
pt thrashing in bed. unable to get appropriate vital signs due to distress. pt screaming, demanding doctor. emotional support given but not received.
--- NOTE | 2018-12-04 05:52 | RAD_ITS ---
STUDY: X-RAY - LEFT HIP REASON FOR EXAM: Male, 58 years old. Fall. Left hip pain TECHNIQUE: 2 views of the hip. COMPARISON: None. FINDINGS: There are osteoarthritic changes of the femoral head with marginal osteophyte formation. Normal acetabulum. There is moderate articular joint space narrowing. Normal visualized superior and inferior pubic rami and ischial tuberosities. RAD/HIP, UNI W/ Pelvis 2-3 Views IMPRESSION: Degenerative changes of the hip. Electronically Signed: Nikos Lopez, at 6:30 EST Tel , Service support ,
--- NOTE | 2018-12-04 05:54 | ED.VISSUMM ---
- ER Visit Summary Date of Service: 12/04/18 Chief Complaint: Left hip pain History of Present Illness: The patient is a 58 M increasing left hip pain while walking around 8 PM home. States had sudden pain causing him to fall. There is no head injuries or loss of consciousness. He is able to ambulate home. States he supposed to use a walker. States he gets his hip pain yearly. He does not have pain medicines at home. Denies any allergies. Patient brought in by EMS on the cot. No medicines were given. Physical Examination: General: Alert and oriented ?3, screaming of pain. HEENT: Normocephalic, atraumatic. Moist mucosa membranes Neck: supple, nontender. Cardiovascular: Regular rate and rhythm, no murmurs Respiratory: Normal breath sounds, symmetric, no distress Abdomen: Soft, nontender, nondistended : No hernia. Extremities: Left lower extremity: No shortening or rotation. There is no deformities. Patient was tender at the hip, however when distracted had no pain. There is no femur tenderness. Skin is intact. Neuro: no focal neurological deficits. Test Results: Left hip x-ray: Degenerative changes of the hip, no fracture. Emergency Department Course and Treatment: Patient was screaming in pain, therefore 4 mg of morphine subcu was given, had immediate calming of his symptoms. X-ray obtained which notes degenerative changes with no fracture. Patient denies history of gastric ulcers or kidney injury. Prescription for naproxen and follow-up with on-call orthopedist for outpatient reevaluation. All questions were answered. Treatment Plan: [] Disposition: Discharge Impression: Left hip osteoarthritis This note was generated with [employer] dictation software. It may contain incorrect words, spelling, and punctuation that were not noted in review of the chart prior to signing ED Disposition - Plan for ED Patient: Disposition: Home or Assisted Living Diagnosis: Osteoarthritis of left hip Instructions: Osteoarthritis: Common Sites Prescriptions: Naproxen [Naprosyn] 500 mg PO BID PRN #20 tablet Referrals: Berna Oquendo NP-C [Primary Care Provider] - Marcus Amato DO [STAFF PHYSICIAN] - 3-5 Days
[2018-12-04] MEDS: Morphine 4 MG/ML Syringe SC (05:57)
[2018-12-04 07:07] VITALS: BP 140/100; PULSE 113; RESP 16; O2SAT 100
--- NOTE | 2018-12-04 07:07 | ED.RN ---
This rn called taxi for pt as he did not have phone numbers for a ride home. ETA 15 min. Wheelchair to [place], assisted into taxi with RN help.
== END 2018-12-04 07:08 | disposition home or self-care (01) ==
PROVIDERS: Emergency Provider Emergency Medicine; Family Provider Nurse Practitioner Family; PCP Nurse Practitioner Family
DX: M16.12 Unilateral primary osteoarthritis, left hip (principal); I11.0 Hypertensive heart disease with heart failure; I50.9 Heart failure, unspecified; J44.9 Chronic obstructive pulmonary disease, unspecified; Z79.02 Long term (current) use of antithrombotics/antiplatelets; Z79.82 Long term (current) use of aspirin; Z79.899 Other long term (current) drug therapy
CPT/HCPCS: 73502; 96372; 99285

== ENCOUNTER 2018-12-19 09:41 | Emergency (ER) | payer MEDICARE, SELFPAY ==
[2018-12-19 09:42] VITALS: BP 139/99; PULSE 86; RESP 15; TEMP 36.8; O2SAT 97; BMI 22.5
[2018-12-19 09:46] VITALS: O2SAT 98
--- NOTE | 2018-12-19 09:52 | EKG12_ITS ---
Test Reason : SOB Blood Pressure : / mmHG Vent. Rate : 087 BPM Atrial Rate : 087 BPM P-R Int : 224 ms QRS Dur : 112 ms QT Int : 438 ms P-R-T Axes : 084 -70 098 degrees QTc Int : 527 ms Sinus rhythm with 1st degree A-V block Possible Left atrial enlargement Left axis deviation Septal infarct (cited on or before 25-NOV-2018), age undetermined T wave abnormality, consider lateral ischemia Prolonged QT Abnormal ECG Confirmed by PRETTY BARLOW, HIRA ([id number]), scientific editor GINA BALDERRAMA ([id number]) on 12/23/2018 11:30:44 AM Referred By: GOLDIE/SITA Confirmed By:HIRA OLSEN MD
--- NOTE | 2018-12-19 09:54 | ED.DCSUM_ITS ---
- ER Visit Summary Date of Service: 12/19/18 Chief Complaint: Shortness of breath History of Present Illness: The patient is a 58 M who presents with shortness of breath. He has had this for a couple of days. His dyspnea is exertional. It is better with rest. He has had a cough with yellow sputum. He denies rhinorrhea, fever or chest pain. He does have a history of CHF. He does not wear home oxygen. He is on diuretics at home. He was admitted to the hospital last month for an exacerbation of his CHF. He states that he has been medication compliant. He continues to smoke. Physical Examination: Vital signs reviewed. Patient is in no distress. Does not appear to be dyspneic. HEENT exam unremarkable. Heart is regular rate and rhythm without murmurs. Lungs are clear to auscultation. Abdomen is soft and nontender. Extremities reveal no edema. Skin exam normal. Neurologic exam normal. Test Results: EKG is normal sinus rhythm with a rate of 87. First-degree AV block and nonspecific ST and T wave changes noted. Chest x-ray reveals chronic changes without infiltrate or edema. White blood cell count 11.9, sodium 135, BUN 21. Troponin is 0.049 and BNP 2484. the patient's troponin and BNP are at baseline and are slightly elevated his history of ischemic cardiomyopathy with his EF of 15% Emergency Department Course and Treatment: Patient's chest x-ray has no edema. He has no infiltrates. His vital signs are unremarkable without tachypnea or tachycardia. He will be given albuterol treatments. I will give him some Mucinex for home. I do not feel that this shortness of breath is related to cardiac or CHF. He will need to continue his home medications and will call his doctors for follow-up Treatment Plan: [] Disposition: Discharge Impression: Dyspnea, cough This note was generated with [facility] dictation software. It may contain incorrect words, spelling, and punctuation that were not noted in review of the chart prior to signing ED Disposition - Plan for ED Patient: Referrals: Berna Oquendo NP-C [Primary Care Provider] -
[2018-12-19 09:58] VITALS: PULSE 93; RESP 21; O2SAT 98
[2018-12-19] MEDS: Albuterol 2.5 MG/3 ML VIAL.NEB. INHALATION ×2 (09:58→11:49)
[2018-12-19 10:19] VITALS: BP 149/92; PULSE 90; RESP 24; O2SAT 98
[2018-12-19 10:25] LABS: Absolute Lymphocyte Count 0.81 X10^3/ul (0.83-4.51); Absolute Neutrophil Count 10.2 X10^3/uL (2.0-7.7); Basophil# 0.07 X10^3/uL; Basophil% 0.6 % (0-1); Eosinophil# 0.11 X10^3/uL; Eosinophils% 0.9 % (0-5); Hematocrit 45.9 % (40-54); Hemoglobin 14.5 g/dl (13.0-16.5); Lymphocyte # 0.81 X10^3/ul (4.0); Lymphocyte % 6.8 % (19-41); Mean Corp Hgb Conc 31.6 g/gl (32-36); Mean Corpuscular Hgb 26.1 pg (27.0-32.0); Mean Corpuscular Volume 82.6 fL (80-94); Mean Platelet Vol. 8.6 fl (6.2-12.0); Monocyte# 0.61 X10^3/uL; Monocyte% 5.1 % (0-10); Neutrophil # 10.22 X10^3/uL (2.7-7.7); Neutrophil % 86.3 % (47-70); Platelet Count 340 K/mm3 (150-450); RBC Distribution Width CV 19.9 % (11.6-14.6); RBC Distribution Width SD 57.7 fl (35.1-43.9); Red Blood Count 5.56 M/mm3 (4.6-6.2); White Blood Count 11.9 K/mm3 (4.4-11.0)
[2018-12-19 10:28] LABS: Differential Indicated SCAN CRITERIA MET; POSITIVE COUNT NO; POSITIVE DIFFERENTIAL NO; POSITIVE MORPHOLOGY YES
--- NOTE | 2018-12-19 10:30 | RAD_ITS ---
STUDY: X-RAY CHEST REASON FOR EXAM: Male, 58 years old. Shortness of breath TECHNIQUE: Single PA view of the chest. COMPARISON: Chest x-ray 11/23/2018. FINDINGS: There is a left-sided single lead AICD. There are stable coarsened interstitial lung markings at the lung bases. No focal pulmonary consolidation. There is no demonstrated pleural abnormality. Normal size heart. There are coronary artery stents. Normal mediastinum and alberto. Normal visualized pulmonary arteries. Normal visualized aortic arch and descending thoracic aorta. Normal visualized thoracic spine. Normal visualized ribs, clavicles, and shoulders. There is no demonstrated abnormality of the visualized soft tissue structures of the upper abdomen. RAD/Chest 1 View (Portable) IMPRESSION: No focal pulmonary consolidation. No pleural effusion or pneumothorax. Electronically Signed: Fredy Ratliff, at 11:03 EDT Tel , Service support ,
[2018-12-19 10:31] LABS: Anion Gap 7 (5-15); BUN 21 mg/dL (7-18); BUN/Creat Ratio 23.1 RATIO (10-20); Calcium,Total 8.6 mg/dL (8.5-10.1); Chloride 103 mmol/L (98-107); Creatinine, Serum 0.91 mg/dL (0.70-1.30); EST Glomerular Filtration Rate 90 mL/min (>60); Est Glom Filt Rate - Afr Amer 109 mL/min (>60); Estimated Creatinine Clearance 81.97 ml/min; Glucose 70 mg/dL (74-106); Potassium 4.5 mmol/L (3.5-5.1); Sodium Level 135 mmol/L (136-145)
--- NOTE | 2018-12-19 11:21 | ED.DEP ---
ED Disposition - Plan for ED Patient: Disposition: Home or Assisted Living Instructions: ED Upper Resp Infec No Abx Tx Prescriptions: Guaifenesin [Mucinex] 600 mg PO BID #14 tab Referrals: Beran Oquendo NP-C [Primary Care Provider] -
[2018-12-19 11:41] VITALS: BP 138/69; PULSE 74; RESP 15; O2SAT 97
[2018-12-19 11:50] VITALS: PULSE 95; RESP 21; O2SAT 96
== END 2018-12-19 12:05 | disposition home or self-care (01) ==
PROVIDERS: Emergency Provider Emergency Medicine; Family Provider Nurse Practitioner Family; PCP Nurse Practitioner Family
DX: R06.00 Dyspnea, unspecified (principal); R05 Cough; F17.200 Nicotine dependence, unspecified, uncomplicated; I11.0 Hypertensive heart disease with heart failure; I50.9 Heart failure, unspecified; I25.10 Atherosclerotic heart disease of native coronary artery without angina pectoris; J44.9 Chronic obstructive pulmonary disease, unspecified; E78.00 Pure hypercholesterolemia, unspecified; Z79.51 Long term (current) use of inhaled steroids; Z79.82 Long term (current) use of aspirin; Z79.899 Other long term (current) drug therapy
CPT/HCPCS: 71045; 80048; 83880; 84484; 85025; 93005; 94640; 99285; A4216

== ENCOUNTER 2019-01-13 13:23 | Emergency (ER) | payer MEDICARE, SELFPAY ==
[2019-01-13 13:24] VITALS: BP 128/93; PULSE 101; RESP 46; TEMP 36.3; O2SAT 100; BMI 20.5
[2019-01-13 13:28] VITALS: BP 128/93; PULSE 100; RESP 22; TEMP 36.3; O2SAT 100
[2019-01-13 13:30] VITALS: O2SAT 100
--- NOTE | 2019-01-13 13:52 | EKG12_ITS ---
Test Reason : Blood Pressure : / mmHG Vent. Rate : 099 BPM Atrial Rate : 099 BPM P-R Int : 212 ms QRS Dur : 104 ms QT Int : 378 ms P-R-T Axes : 085 -63 116 degrees QTc Int : 485 ms Sinus rhythm with 1st degree A-V block Possible Left atrial enlargement Left anterior fascicular block ST & T wave abnormality, consider lateral ischemia Prolonged QT Abnormal ECG Confirmed by ERICA BARLOW, SOFY ([id number]), field map editor AMADOR EDMONDS ([id number] on 01/15/2019 9:28:17 AM Referred By: JEREMY Confirmed By:SOFY MALDONADO MD
--- NOTE | 2019-01-13 13:52 | RAD_ITS ---
STUDY: X-RAY CHEST REASON FOR EXAM: Male, 58 years old. Respiratory distress. TECHNIQUE: PA and lateral views of the chest. COMPARISON: Comparison is made with prior study of December 19, 2018. FINDINGS: EKG electrodes are seen. The lungs are clear and expanded. There is no demonstrated pleural abnormality. There is moderate cardiac enlargement. A left-sided unipolar pacemaker is seen. Normal mediastinum and alberto. Normal visualized pulmonary arteries. There is atherosclerotic calcification of the aortic arch with tortuosity. Normal visualized thoracic spine. Normal visualized ribs, clavicles, and shoulders. There is no demonstrated abnormality of the visualized soft tissue structures of the upper abdomen. RAD/Chest PA and Lateral IMPRESSION: Cardiomegaly. Electronically Signed: Darrick Coreas, at 14:44 EDT , Service support ,
[2019-01-13] MEDS: MethylPREDNISolone 125 MG/2 ML Vial IV (13:57)
[2019-01-13 14:27] LABS: Absolute Lymphocyte Count 1.03 X10^3/ul (0.83-4.51); Absolute Neutrophil Count 7.5 X10^3/uL (2.0-7.7); Anion Gap 6 (5-15); BUN 12 mg/dL (7-18); BUN/Creat Ratio 19.1 RATIO (10-20); Basophil# 0.04 X10^3/uL; Basophil% 0.4 % (0-1); Calcium,Total 8.3 mg/dL (8.5-10.1); Chloride 98 mmol/L (98-107); Creatinine, Serum 0.63 mg/dL (0.70-1.30); EST Glomerular Filtration Rate 138 mL/min (>60); Eosinophil# 0.21 X10^3/uL; Eosinophils% 2.2 % (0-5); Est Glom Filt Rate - Afr Amer 168 mL/min (>60); Estimated Creatinine Clearance 117.64 ml/min; Glucose 83 mg/dL (74-106); Hematocrit 38.5 % (40-54); Hemoglobin 12.4 g/dl (13.0-16.5); Lymphocyte # 1.03 X10^3/ul (4.0); Lymphocyte % 10.8 % (19-41); Mean Corp Hgb Conc 32.2 g/gl (32-36); Mean Corpuscular Hgb 26.3 pg (27.0-32.0); Mean Corpuscular Volume 81.6 fL (80-94); Mean Platelet Vol. 8.3 fl (6.2-12.0); Monocyte# 0.67 X10^3/uL; Neutrophil # 7.54 X10^3/uL (2.7-7.7); Neutrophil % 79.4 % (47-70); POSITIVE COUNT NO; POSITIVE DIFFERENTIAL NO; POSITIVE MORPHOLOGY NO; Platelet Count 250 K/mm3 (150-450); Potassium 4.5 mmol/L (3.5-5.1); RBC Distribution Width CV 18.3 % (11.6-14.6); Red Blood Count 4.72 M/mm3 (4.6-6.2); Sodium Level 132 mmol/L (136-145); White Blood Count 9.5 K/mm3 (4.4-11.0)
[2019-01-13 14:44] VITALS: PULSE 102; RESP 28
[2019-01-13] MEDS: Ipratropium/Albuterol Sulfate 3 ML AMPUL.NEB INHALATION (14:44)
--- NOTE | 2019-01-13 15:06 | ED.VISSUMM ---
- ER Visit Summary Date of Service: 01/13/19 Chief Complaint: Shortness of breath History of Present Illness: The patient is a 58 M who sees Elizabeth Oquendo. He reports that he has had a cough for the past 2 days that is productive of yellow sputum. His shortness of breath began just prior to coming the emergency department. He has had a fever to 102 degrees and chills. He denies any chest pain. Also reports that he has had nausea, vomiting, and diarrhea today. He is vomited 3-4 times. No blood in his emesis. He had 3 episodes of diarrhea. No blood in stools or black tarry stools. Physical Examination: Vitals: Stable. Afebrile. General: Well-nourished and well-developed. Head: Normocephalic atraumatic. Neck: Supple, no lymphadenopathy. No JVD. Nontender. Cardiovascular: Regular rate and rhythm. No murmurs. Respiratory: No respiratory distress. Clear to auscultation bilaterally. Abdominal: Soft, nontender, nondistended, normal bowel sounds. No guarding, rebound, or peritoneal signs. Back: Nontender. Extremities: Nontender, no edema. Skin: Normal color, no rash. Neurologic: Alert and oriented ?3. Cranial nerves II through XII are intact. Normal strength and sensation. Psych: Normal affect. 97.4, 120/93, 101, 46, 100% on room air which is not hypoxic Test Results: Influenza a positive. EKG is sinus with first-degree AV block rate of 99. He has T wave inversions laterally consistent with LVH with repolarization changes. Is essentially unchanged from November of this year. Troponin is 0.033. This is low since August 2018. Chem-7 more for sodium 132, creatinine 0.63 and calcium of 8.3. CBC is more for an H&H 12.4 30.5, 7 neutrophils 79, lymphs lites of 11. Chest x-ray shows cardiomegaly and chronic changes. No infiltrate or failure. Emergency Department Course and Treatment: Patient was treated with albuterol and Atrovent aerosols. He was given Solu-Medrol IV. He is given Tamiflu p.o. His pulse ox is stable. Treatment Plan: The patient will be discharged on Tamiflu and prednisone. Instructed follow-up his primary care physician in 1-2 days if not improving. Return to the emergency department for any worsening symptoms. Disposition: To home in improved and stable condition. Impression: 1. Influenza A. This note was generated with [employer] dictation software. It may contain incorrect words, spelling, and punctuation that were not noted in review of the chart prior to signing ED Disposition - Plan for ED Patient: Disposition: Home or Assisted Living Instructions: ED Flu Prescriptions: Prednisone [Deltasone] 40 mg PO DAILY #10 tablet Oseltamivir Phosphate [Tamiflu] 75 mg PO BID #10 capsule Referrals: Berna Oquendo, PROGRAM MANAGER SLP-C [Primary Care Provider] - 1-2 Days if not improving
--- NOTE | 2019-01-13 15:12 | ED.RN ---
LAB CALLED WITH RESULTS FOR PT, DR. LUNA INFORMED OF PT POSITIVE FOR FLU A.
[2019-01-13 15:16] VITALS: BP 149/98; PULSE 104; PULSE 105; RESP 18; RESP 19; TEMP 36.9; O2SAT 98; O2SAT 99
[2019-01-13] MEDS: Oseltamivir Phosphate 75 MG Capsule PO (15:21)
== END 2019-01-13 15:22 | disposition home or self-care (01) ==
PROVIDERS: Emergency Provider Emergency Medicine; Family Provider Nurse Practitioner Family; PCP Nurse Practitioner Family
DX: J09.X2 Influenza due to identified novel influenza A virus with other respiratory manifestations (principal); I51.7 Cardiomegaly; I44.0 Atrioventricular block, first degree; I25.10 Atherosclerotic heart disease of native coronary artery without angina pectoris; J44.9 Chronic obstructive pulmonary disease, unspecified; I10 Essential (primary) hypertension; F17.210 Nicotine dependence, cigarettes, uncomplicated; I50.9 Heart failure, unspecified; G25.81 Restless legs syndrome
CPT/HCPCS: 71046; 80048; 84484; 85025; 87804; 93005; 94640; 96374; 99285; J7040; A4216

== ENCOUNTER 2019-02-02 09:00 | Inpatient (IN) | payer MEDICARE, SELFPAY ==
[2019-02-02] VITALS (11 sets, daily range): BP systolic 113–143; BP diastolic 78–99; PULSE 71–117; RESP 12–36; TEMP 36.7–37.8; O2SAT 94–100; BMI 23.4; BMI 22.4; BMI 22.5
--- NOTE | 2019-02-02 09:08 | EKG12_ITS ---
Test Reason : SOB Blood Pressure : / mmHG Vent. Rate : 114 BPM Atrial Rate : 114 BPM P-R Int : 202 ms QRS Dur : 096 ms QT Int : 308 ms P-R-T Axes : 081 -79 098 degrees QTc Int : 424 ms Sinus tachycardia Possible Left atrial enlargement Left axis deviation Incomplete right bundle branch block Septal infarct , age undetermined ST & T wave abnormality, consider lateral ischemia Abnormal ECG Confirmed by PRETTY BARLOW, HIRA ([id number]), publications editor GINA BALDERRAMA ([id number]) on 02/04/2019 1:29:36 PM Referred By: Julián Armenta Confirmed By:HIRA OLSEN MD
--- NOTE | 2019-02-02 09:09 | RAD_ITS ---
STUDY: X-RAY CHEST REASON FOR EXAM: Male, 58 years old. Dyspnea. TECHNIQUE: Single portable frontal chest. COMPARISON: 2 views of the chest dated January 13, 2019. FINDINGS: There is stable appearance and position of the single lead left pectoral pacemaker. The lungs appear clear. There is no pleural effusion. There is no pneumothorax. There is stable moderate cardiac enlargement. There is no demonstrated mediastinal lymphadenopathy or mediastinal mass lesion. Normal visualized pulmonary arteries. There is atherosclerotic calcification of the aortic arch with tortuosity. There is no plain film evidence of acute osseous abnormality. There is no demonstrated abnormality of the visualized soft tissue structures of the upper abdomen. RAD/Chest 1 View (Portable) IMPRESSION: Stable examination. No evident acute cardiopulmonary disease. Stable moderate enlargement of the cardiomediastinal silhouette which may represent cardiomegaly versus pericardial fluid. Atherosclerotic peripheral vascular disease. Electronically Signed: Héctor Olmos MD at 10:19 EDT , Service support ,
[2019-02-02] MEDS: Ipratropium/Albuterol Sulfate 3 ML AMPUL.NEB INHALATION ×3 (09:16→19:30)
[2019-02-02] MEDS: Albuterol 2.5 MG/3 ML VIAL.NEB. INHALATION ×3 (09:16→09:33)
[2019-02-02] MEDS: MethylPREDNISolone 125 MG/2 ML Vial IV (09:16)
[2019-02-02 09:30] LABS: Absolute Lymphocyte Count 1.34 X10^3/ul (0.83-4.51); Absolute Neutrophil Count 7.5 X10^3/uL (2.0-7.7); Basophil# 0.04 X10^3/uL; Basophil% 0.4 % (0-1); Eosinophil# 0.21 X10^3/uL; Eosinophils% 2.1 % (0-5); Hematocrit 38.5 % (40-54); Hemoglobin 12.6 g/dl (13.0-16.5); Lymphocyte # 1.34 X10^3/ul (4.0); Lymphocyte % 13.1 % (19-41); Mean Corp Hgb Conc 32.7 g/gl (32-36); Mean Corpuscular Hgb 26.3 pg (27.0-32.0); Mean Corpuscular Volume 80.4 fL (80-94); Mean Platelet Vol. 8.5 fl (6.2-12.0); Monocyte# 1.07 X10^3/uL; Monocyte% 10.5 % (0-10); Neutrophil # 7.52 X10^3/uL (2.7-7.7); Neutrophil % 73.7 % (47-70); POSITIVE COUNT NO; POSITIVE DIFFERENTIAL NO; POSITIVE MORPHOLOGY NO; Platelet Count 266 K/mm3 (150-450); RBC Distribution Width CV 17.2 % (11.6-14.6); RBC Distribution Width SD 50.4 fl (35.1-43.9); Red Blood Count 4.79 M/mm3 (4.6-6.2); White Blood Count 10.2 K/mm3 (4.4-11.0)
[2019-02-02 09:40] LABS: Anion Gap 11 (5-15); BUN 15 mg/dL (7-18); BUN/Creat Ratio 20.9 RATIO (10-20); Calcium,Total 8.9 mg/dL (8.5-10.1); Chloride 85 mmol/L (98-107); Creatinine, Serum 0.72 mg/dL (0.70-1.30); EST Glomerular Filtration Rate 119 mL/min (>60); Est Glom Filt Rate - Afr Amer 144 mL/min (>60); Estimated Creatinine Clearance 105.56 ml/min; Glucose 101 mg/dL (74-106); Potassium 4.3 mmol/L (3.5-5.1); Sodium Level 125 mmol/L (136-145)
[2019-02-02 09:45] LABS: Base Excess 1 mmol/L (-2 to +2); Bicarbonate 24.4 mmol/L (22-26); Blood Gas Specimen Type ART; O2 Delivery Device Nasal Can; PO2 98 mmHG (75-100); SITE R Radial; SO2 98 % (95-99); Time Given 938; Total Carbon Dioxide 25 mmol/L; pCO2 32.7 mmHg (35-45); pH 7.48 (7.35-7.45)
[2019-02-02 09:51] LABS: Lactic Acid 2.4 mmol/L (0.4-2.0)
[2019-02-02] MEDS: LORazepam 2 MG/ML Syringe 1 MG IV (10:25)
--- NOTE | 2019-02-02 11:33 | NURSING ---
DR DEBBIE SAUL
--- NOTE | 2019-02-02 11:45 | ED.DCSUM_ITS ---
- ER Visit Summary Date of Service: 02/02/19 Chief Complaint: Shortness of breath History of Present Illness: The patient is a 58 M history of CAD, CT, CHF and COPD uses as needed oxygen at home. Cardiac stents in the note EF from August 2018 of only 15%. He does have a defibrillator. Reportedly called squad due to increasing shortness of breath. Squad brought patient to the emergency department. States his pulse ox was around 85% on room air in his home he was not using his oxygen. He denies any fever or chest pain. States he has had cough with nausea and vomiting. Denies any diarrhea or melena. Physical Examination: Middle-aged male. Vital signs temperatures 100.1. Heart rate 116. Initial pressure 113/99. Pulse ox 100% on nonrebreather mask. He is in respiratory distress. H EENT exam moist remembers. Neck nontender no lymphadenopathy no JVD. Lungs diminished throughout. No rales, rhonchi no significant wheezing. Heart tachycardic no murmur. Chest are nontender. Abdomen is soft and nontender. Normal bowel sounds no peritoneal signs. Patient is moving all 4 extremities. He does have 1+ pitting edema both lower extremities which he states is chronic. Neurologically is awake alert he is answering questions and following commands. Test Results: Chest x-ray shows cardiomegaly which is chronic and unchanged from a recent chest x-ray from 2 to 3 weeks ago. No obvious pneumonia. There is no signs of failure. EKG shows sinus tachycardia rate of [address] depression V5 and V6 no significant change from prior EKG from 01/13/2019. White count of 10. Hemoglobin 12 which is his baseline anemia. Electrolytes show sodium 125 which is worse than his normal. Normal creatinine and gap of 11. Troponin 0 0.021. BNP is elevated 2502. Previously he was in the 2000 range also. Lactic acid is elevated 2.4 I suspect that secondary to his work of breathing. ABG shows a pH 7.48 PCO2 32 PO2 98 and 90% on oxygen. Emergency Department Course and Treatment: Patient respiratory distress I suspect secondary to COPD. Treated with aerosols both of purulent DuoNeb. IV Solu-Medrol. He was very anxious and was later given a dose of IV Ativan. Treatment Plan: Repeat exam he is improving. I do think he needs admission. I spoken to the hospitalist will put him on the U. Disposition: Admission Impression: Acute dyspnea and hypoxia Acute exacerbation of COPD Acute hyponatremia Rule out acute on chronic CHF with an EF of 15% on his last echo This note was generated with [employer] dictation software. It may contain incorrect words, spelling, and punctuation that were not noted in review of the chart prior to signing ED Disposition - Plan for ED Patient: Referrals: Berna Oquendo, DANA-C [Primary Care Provider] -
--- NOTE | 2019-02-02 11:46 | NURSING ---
PCU COPD FLARE, DYSPNEA, HYPOXIA, HYPONATREMIA R/O CHF OBS TERELETSKY
[2019-02-02 13:16] LABS: Reflex Lactate? Y
--- NOTE | 2019-02-02 13:55 | PCM.HP.STD ---
Problem List (1) Acute and chronic respiratory failure with hypoxia Status: Acute (2) Acute on chronic systolic CHF (congestive heart failure) Status: Acute (3) Systolic CHF Status: Chronic Qualifiers: (4) COPD with acute exacerbation Status: Acute (5) ICD (implantable cardioverter-defibrillator) in place Status: Chronic (6) Iron deficiency anemia Status: Chronic Qualifiers: (7) Tobacco abuse Status: Chronic (8) Medical non-compliance Status: Chronic (9) Ischemic cardiomyopathy Status: Chronic History of Present Illness Date of Admission: 02/02/19 Chief Complaint: SOB The patient is a 58 year old M with pmhx of systolic CHF, ischemic CM, AICD in place, EF 15%, pulmonary HTN, ongoing nicotine abuse, medication noncompliance, CAD, HTN, HLD, iron def anemia, polysubstance abuse, who presented to the ER this AM with increased SOB. He was brought in by squad, whom reported hypoxia at 85% on RA when found. He does use O2 PRN at home, and he was found not using it. At the time of my interview the patient was lethargic and restless, not waking up, moaning and retracting from attempts to wake him. He had received ativan in the ER for agitation. He initially was placed on nonrebreather and has been able to be weaned down to NC @ 3lpm. CXR with no acute disease, temp 100.1, tachycardic, EKG without acute changes, ABG with Co2 7.48, sodium 125 and BNP 2502. He has faint rales on exam, no significant LE edema, and I do not hear any wheezing. He will be admitted to the PCU with suspected COPD and systolic CHF exacerbation. [] Past Medical History Past Medical History (Chronic Problems): Chronic Problems (Last Updated 11/23/18 @ 18:10 by Julián Armenta DO) Systolic CHF (Chronic) Elevated troponin (Chronic) ICD (implantable cardioverter-defibrillator) in place (Chronic) History of coronary artery stent placement (Chronic) PCI-RCA and CX Atherosclerosis of coronary artery of [place] heart without angina pectoris (Chronic) LEFT HEART ASSESSMENT Left Ventricular Ejection Fraction: by LV Gram 10-15 % Global Hypokinesis - Severe Depressed Left Ventricular systolic function Normal Left Ventricular End Diastolic Pressure LEFT MAIN: Non-obstructive LEFT ANTERIOR DECENDING ARTERY: Previously placed stent is patent DIAGONAL 1: Ostial - Mild luminal irregularities less than 30% DIAGONAL 2: Proximal - Non-obstructive CIRCUMFLEX ARTERY: MID CIRC: Previously placed stent is patent RIGHT CORONARY ARTERY: MID RCA: Previously placed stent has instent 20 % restenosis with a new at distal edge of stent Iron deficiency anemia (Chronic) COPD (chronic obstructive pulmonary disease) (Chronic) Tobacco abuse (Chronic) Medical non-compliance (Chronic) Ischemic cardiomyopathy (Chronic) Medical History: Medical History (Last Updated 11/23/18 @ 18:10 by Julián Armenta DO) Atherosclerosis of coronary artery of [place] heart without angina pectoris (Chronic) I25.10 LEFT HEART ASSESSMENT Left Ventricular Ejection Fraction: by LV Gram 10-15 % Global Hypokinesis - Severe Depressed Left Ventricular systolic function Normal Left Ventricular End Diastolic Pressure LEFT MAIN: Non-obstructive LEFT ANTERIOR DECENDING ARTERY: Previously placed stent is patent DIAGONAL 1: Ostial - Mild luminal irregularities less than 30% DIAGONAL 2: Proximal - Non-obstructive CIRCUMFLEX ARTERY: MID CIRC: Previously placed stent is patent RIGHT CORONARY ARTERY: MID RCA: Previously placed stent has instent 20 % restenosis with a new at distal edge of stent Acute respiratory failure with hypoxemia (Resolved) J96.01 Iron deficiency anemia (Chronic) D50.9 COPD (chronic obstructive pulmonary disease) (Chronic) J44.9 Tobacco abuse (Chronic) Z72.0 Medical non-compliance (Chronic) Z91.19 Ischemic cardiomyopathy (Chronic) I25.5 Acute on chronic systolic (congestive) heart failure I50.23 Restless leg syndrome G25.81 Acute bronchitis (Resolved) J20.9 COPD exacerbation (Resolved) J44.1 Recent discharge 12/14/17 following treatment for acute on chronic systolic CHF exacerbation, acute COPD exacerbation with acute hypoxic respiratory failure and MRSA HCAP PNA. HCAP (healthcare-associated pneumonia) (Resolved) J18.9 Recent discharge 12/14/17 following treatment for acute on chronic systolic CHF exacerbation, acute COPD exacerbation with acute hypoxic respiratory failure and MRSA HCAP PNA. Hypotension (Resolved) I95.9 MRSA (methicillin resistant Staphylococcus aureus) infection (Resolved) A49.02 Recent discharge 12/14/17 following treatment for acute on chronic systolic CHF exacerbation, acute COPD exacerbation with acute hypoxic respiratory failure and MRSA HCAP PNA. NSVT (nonsustained ventricular tachycardia) (Resolved) I47.2 Near syncope (Resolved) R55 Elevated troponin (Inactive) R74.8 Allergies No Known Allergies Allergy (Verified 02/02/19 09:07) Home Medications: Ambulatory Orders Medication Instructions Recorded Nitroglycerin [Nitrostat] 0.4 mg SUBLINGUAL Q5M PRN #1 bottle 12/14/17 ferrous gluconate 324 mg (37.5 mg 325 mg PO BIDCM #60 tab 01/15/18 iron) tablet Gabapentin [Neurontin] 600 mg PO QHS 08/27/18 Albuterol Inhaler [Ventolin Hfa] 2 puff INHALATION Q4H PRN PRN #1 10/14/18 inhaler aspirin 81 mg tablet,delayed 81 mg PO DAILY #90 tab 10/17/18 release atorvastatin 80 mg tablet 80 mg PO QHS #90 tab 10/17/18 carvedilol 6.25 mg tablet 6.25 mg PO BID #90 tab 10/17/18 clopidogrel 75 mg tablet 75 mg PO DAILY #90 tab 10/17/18 hydroxyzine pamoate 25 mg capsule 25 mg PO TID PRN PRN #30 cap 10/17/18 isosorbide mononitrate ER 30 mg 30 mg PO DAILY #90 tab 10/17/18 tablet,extended release 24 hr losartan 25 mg tablet 25 mg PO DAILY #90 tab 10/17/18 potassium chloride ER 20 mEq 20 meq PO DAILY #90 tab 10/17/18 tablet,extended release(part/cryst) Furosemide [Lasix] 40 mg PO BID@1000,1800 #60 tablet 11/26/18 Naproxen [Naprosyn] 500 mg PO BID PRN #20 tablet 12/04/18 Guaifenesin [Mucinex] 600 mg PO BID #14 tab 12/19/18 Oseltamivir Phosphate [Tamiflu] 75 mg PO BID #10 capsule 01/13/19 Prednisone [Deltasone] 40 mg PO DAILY #10 tablet 01/13/19 Surgical History: Surgical History (Last Reviewed 09/27/18 @ 02:25 by Marcus Mi MD) ICD (implantable cardioverter-defibrillator) in place (Chronic) Z95.810 History of coronary artery stent placement (Chronic) Z95.5 PCI-RCA and CX History of coronary artery stent placement Z95.5 [id number] and Cx History of left heart catheterization Onset Date: 12/14/17 Z98.890 CORONARY ANGIOGRAPHY DOMINANCE: Right Dominant LEFT HEART ASSESSMENT Left Ventricular Ejection Fraction: by LV Gram 10-15 % Global Hypokinesis - Severe Depressed Left Ventricular systolic function Normal Left Ventricular End Diastolic Pressure LEFT MAIN: Non-obstructive LEFT ANTERIOR DECENDING ARTERY: Previously placed stent is patent DIAGONAL 1: Ostial - Mild luminal irregularities less than 30% DIAGONAL 2: Proximal - Non-obstructive CIRCUMFLEX ARTERY: MID CIRC: Previously placed stent is patent RIGHT CORONARY ARTERY: MID RCA: Previously placed stent has instent 20 % restenosis with a new at distal edge of stent Surgical History: - - PCI x 10-11. Psychiatric History: No pertinent psych hx Smoking Status: Current every day smoker Tobacco Use: Cigarettes Alcohol: None Drugs: None - *Family History Maternal Family History: Family History (Last Reviewed 09/27/18 @ 02:26 by Marcus Mi MD) Father CAD (coronary artery disease) Heart disease Mother CAD (coronary artery disease) Heart disease Aunt Cancer Brother Heart disease Hypertension History Items: Heart Disease Paternal Family History: Family History (Last Reviewed 09/27/18 @ 02:26 by Marcus Mi MD) Father CAD (coronary artery disease) Heart disease Mother CAD (coronary artery disease) Heart disease Aunt Cancer Brother Heart disease Hypertension History Items: Heart Disease Review of Systems Unable to obtain accurate/complete ROS d/t: pt unresponsive VTE Information - Inpt Only VTE Present on Admission: No VTE Mechan Device Prophylaxis: None VTE Pharm Prophylaxis ordered?: Yes Patient Problems: Active and Suspected Problems (Last Updated 11/23/18 @ 18:10 by Julián Armenta DO) Acute and chronic respiratory failure with hypoxia (Acute) Acute on chronic systolic CHF (congestive heart failure) (Acute) - Physical Exam General: Alert, Lethargic HEENT: Atraumatic, PERRLA, EOMI, Normocephalic Neck: Supple, No JVD, Negative Carotid Bruits Lungs: Diminished, Rales - faint BL bases Cardiovascular: No murmurs, Tachycardic Abdomen: Bowel Sounds Present, Soft, Non Tender Extremities: No edema, Capillary Refill Less than 3 Seconds Skin: No rashes, No breakdown Musculoskeletal: No Tenderness to Palpation of Joints or Extremities Psych/Mental Status: Restless Vital Signs Temp Pulse Resp BP Pulse Ox 99.9 F H 110 H 20 H 143/93 H 99 05/05/19 11:12 02/02/19 13:32 02/02/19 11:12 02/02/19 11:12 02/02/19 11:12 Oxygen Flow Rate (L/min) 3 Oxygen Delivery Method Nasal Cannula Weight: 148 lb 5.938 oz Body Mass Index (BMI) 22.4 Laboratory Tests Past 24 Hrs 02/02/19 02/02/19 02/02/19 09:05 09:05 09:05 WBC 10.2 RBC 4.79 Hgb 12.6 L Hct 38.5 L MCV 80.4 MCH 26.3 L MCHC 32.7 RDW 17.2 H RDW Differential 50.4 H Plt Count 266 MPV 8.5 Immature Gran % (Auto) 0.200 Neut % (Auto) 73.7 H Lymph % (Auto) 13.1 L Moody % (Auto) 10.5 H Eos % (Auto) 2.1 Baso % (Auto) 0.4 Absolute Neuts (auto) 7.5 Absolute Lymphs (auto) 1.34 Total Counted Not Reportable Specimen Type Sample Site pH Bicarbonate Actual POC Total CO2 Base Excess O2 Saturation ABG pCO2 ABG pO2 Alexis Test O2 Delivery Device Liter Flow Blood Gas Notified Whom Blood Gas Notified Time Sodium 125 L Potassium 4.3 Chloride 85 L Carbon Dioxide 29.0 Anion Gap 11 BUN 15 Creatinine 0.72 Estim Creat Clear Calc 105.56 Est GFR (MDRD) Af Amer 144 Est GFR (MDRD) Non-Af 119 BUN/Creatinine Ratio 20.9 H Glucose 101 Lactic Acid 2.4 H Calcium 8.9 Troponin I 0.021 B-Natriuretic Peptide 02/02/19 02/02/19 02/02/19 09:05 09:40 13:30 WBC RBC Hgb Hct MCV MCH MCHC RDW RDW Differential Plt Count MPV Immature Gran % (Auto) Neut % (Auto) Lymph % (Auto) Moody % (Auto) Eos % (Auto) Baso % (Auto) Absolute Neuts (auto) Absolute Lymphs (auto) Total Counted Specimen Type ART Sample Site R Radial pH 7.48 H Bicarbonate Actual 24.4 POC Total CO2 25 Base Excess 1 O2 Saturation 98 ABG pCO2 32.7 L ABG pO2 98 Alexis Test NA O2 Delivery Device Nasal Can Liter Flow 3.0 Blood Gas Notified Whom ED Blood Gas Notified Time 938 Sodium Potassium Chloride Carbon Dioxide Anion Gap BUN Creatinine Estim Creat Clear Calc Est GFR (MDRD) Af Amer Est GFR (MDRD) Non-Af BUN/Creatinine Ratio Glucose Lactic Acid Pending Calcium Troponin I B-Natriuretic Peptide 2502.0 H Assessment/Plan All Active Problems (Last Updated 11/23/18 @ 18:10 by Julián Armenta, DO) Acute and chronic respiratory failure with hypoxia (Acute) Acute on chronic systolic CHF (congestive heart failure) (Acute) Acute respiratory failure with hypoxia (Acute) Septic shock (Resolved) Severe sepsis (Acute) Septic shock (Ruled-out) COPD with acute exacerbation (Acute) Acute respiratory failure with hypoxemia (Resolved) Acute bronchitis (Resolved) COPD exacerbation (Resolved) HCAP (healthcare-associated pneumonia) (Resolved) Hypotension (Resolved) MRSA (methicillin resistant Staphylococcus aureus) infection (Resolved) NSVT (nonsustained ventricular tachycardia) (Resolved) Near syncope (Resolved) 1. Acute on chronic hypoxic respiratory failure 2/2 COPD and systolic CHF exacerbations complicated by pulmonary HTN and ischemic cardiomyopathy - IV steroids and lasix, monitor I/O, sodium/fluid restrict, aerosols. lactic acid elevated 2/2 respiratory failure, not acute infectious process --> now resolved. Defer further ativan given his current lethargy --> will also obtain tox screen, 11/19 + for amphetamines. 2. hyponatremia - likely 2/2 volume overload, diurese and monitor. 3. iron deficiency anemia - at or near baseline. resume po iron when ok for PO. 4. AICD in place 5. Hx polysubstance abuse 6. Anxiety disorder 7. CAD - resume home meds when mental status improved. DVT ppx: lovenox DC planning: PTOT This patient was seen by Scott Neumann PA-C under the supervision of Dr. Armenta.
[2019-02-02 14:05] LABS: Lactic Acid 1.4 mmol/L (0.4-2.0)
[2019-02-02] MEDS: Furosemide 40 MG/4 ML Vial IV ×2 (14:19→22:11)
[2019-02-02 21:17] LABS: Amphetamine Urine VISTA POSITIVE (<1000 ng/mL); Barbiturate Urine VISTA NEGATIVE (< 200 ng/mL); Benzodiazepine Urine VISTA NEGATIVE (< 200 ng/mL); Cocaine Urine VISTA NEGATIVE (< 300 ng/mL); Ecstacy Urine VISTA NEGATIVE (< 500 ng/mL); Methadone Urine VISTA NEGATIVE (< 300 ng/mL); PCP Urine VISTA NEGATIVE (< 25 ng/mL); THC Urine VISTA NEGATIVE (< 50 ng/mL); Vista UDS pH Range 7
[2019-02-02] MEDS: 0.9% NaCl Peripheral Flush Adult/Peds IV (22:11)
[2019-02-02] MEDS: Carvedilol 6.25 MG Tablet PO (22:12)
[2019-02-02] MEDS: Atorvastatin Calcium 80 MG Tablet PO (22:12)
[2019-02-03] VITALS (8 sets, daily range): BP systolic 93–116; BP diastolic 55–75; PULSE 76–89; RESP 16–20; TEMP 36.4–36.6; O2SAT 97
--- NOTE | 2019-02-03 01:03 | EKG12_ITS ---
Test Reason : INVERTED T WAVES Blood Pressure : / mmHG Vent. Rate : 079 BPM Atrial Rate : 079 BPM P-R Int : 232 ms QRS Dur : 110 ms QT Int : 490 ms P-R-T Axes : 083 -59 194 degrees QTc Int : 561 ms Sinus rhythm with 1st degree A-V block Possible Left atrial enlargement Left axis deviation Incomplete left bundle branch block Confirmed by PRETTY BARLOW, HIRA ([id number]), desk editor GINA BALDERRAMA ([id number]) on 02/04/2019 2:01:12 PM Referred By: Julián Armenta Confirmed By:HIRA OLSEN MD
[2019-02-03 04:16] LABS: Bedside Glucose 156 mg/dL (70-110)
--- NOTE | 2019-02-03 04:37 | CPS ---
pt refuses bipap
[2019-02-03 05:29] LABS: Anion Gap 8 (5-15); BUN 15 mg/dL (7-18); BUN/Creat Ratio 28.1 RATIO (10-20); Calcium,Total 8.5 mg/dL (8.5-10.1); Chloride 95 mmol/L (98-107); Creatinine, Serum 0.53 mg/dL (0.70-1.30); EST Glomerular Filtration Rate 167 mL/min (>60); Est Glom Filt Rate - Afr Amer 202 mL/min (>60); Estimated Creatinine Clearance 141.09 ml/min; Glucose 145 mg/dL (74-106); Potassium 3.2 mmol/L (3.5-5.1); Sodium Level 134 mmol/L (136-145)
[2019-02-03] MEDS: 0.9% NaCl Peripheral Flush Adult/Peds IV ×2 (06:02→14:02)
[2019-02-03] MEDS: Furosemide 40 MG/4 ML Vial IV (06:02)
[2019-02-03] MEDS: Losartan Potassium 25 MG Tablet PO (08:57)
[2019-02-03] MEDS: Clopidogrel Bisulfate 75 MG Tablet PO (08:57)
[2019-02-03] MEDS: Aspirin E.C. 81 MG Tablet PO (08:57)
[2019-02-03] MEDS: Carvedilol 6.25 MG Tablet PO (08:57)
[2019-02-03] MEDS: Enoxaparin 40 MG/0.4 ML Syringe SC (08:58)
--- NOTE | 2019-02-03 09:51 | CASEMGMT ---
RN SHELIA Assessment Presentation: COPD exacerbation and acute CHF Intro role of CM and purpose of RN CM assessment to patient in room. Demographics, PCP and Pharmacy verified. Pt states he is still living on [address] in mobile home with friend and plans to stay at this address for now. PCP: Dr. Rincon Pt states he has not followed up with previous PCP appt or Dr. Ahmadi appt. due to transportation. Pt states he is aware the hospital provides transportation to Dr. Ahmadi's office but did not call them for assist. PCP is not affiliated with [facility]. RN SHELIA spoke with pt re: changing PCP to [place] affiliated dr. Ordoñez is agreeable and appt made with Dr. Davis for February 21 @ 1 pm. Appt entered into worklist. No earlier appt is available. Pt can f/u with Dr. Ahmadi on dc. Per [facility] office- pt has not been no show to last few appointments. Specialists: Dr. Ahmadi, Pulmonology. Preferred Pharmacy: [facility] Insurance: [employer] Prescription Benefit: yes. LNOK: Brother, Angel Peralta Living Arrangements: Pt states he lives in mobile home with friend. Is ambulatory and independent in ADL. Generally does not use assistive devices. Transportation: Does not drive. GILL BASS spoke with pt re: [facility] transportation assistance. Brochure given to pt and explained. DME: Walker, nebulizer. Insurance lookup for [employer] providers: [employer] HHC: none Patient DC goals: Home DC PLAN: Home, f/u with Dr. Davis- appt made for 02/21/19, and Dr. Ahmadi. Damon ESPINOZAN RN ACM
--- NOTE | 2019-02-03 10:38 | PCM.PROGNOTE ---
<Scott Neumann - Last Filed: 02/03/19 10:38> Patient Problems: Active and Suspected Problems (Last Updated 11/23/18 @ 18:10 by Julián Armenta DO) Acute and chronic respiratory failure with hypoxia (Acute) Acute on chronic systolic CHF (congestive heart failure) (Acute) - Physical Exam General: Alert, Oriented x3, Cooperative HEENT: Atraumatic, PERRLA, EOMI, Normocephalic Neck: Supple, No JVD, Negative Carotid Bruits Lungs: Diminished, Rales Cardiovascular: Regular rate, No murmurs Abdomen: Bowel Sounds Present, Soft, Non Tender Extremities: No edema, Capillary Refill Less than 3 Seconds Skin: No rashes, No breakdown Musculoskeletal: No Tenderness to Palpation of Joints or Extremities Neurological: Cranial nerves II-XII grossly intact Psych/Mental Status: Normal Affect, Appropriate, Alert and oriented to time, place, person, mood and affect Vital Signs Temp Pulse Resp BP Pulse Ox 97.5 F L 89 18 116/65 97 02/03/19 08:50 02/03/19 08:50 02/03/19 08:50 02/03/19 08:50 02/03/19 08:50 Oxygen Flow Rate (L/min) 1 Oxygen Delivery Method Nasal Cannula Weight: 132 lb 11.492 oz Body Mass Index (BMI) 22.4 Intake and Output for Last 24 Hours 02/01/19 02/02/19 02/03/19 23:59 23:59 23:59 Intake Total 50 / 50 520 / 520 Output Total 3350 / 3350 825 / 825 Balance -3300 / -3300 -305 / -305 Laboratory Tests Past 24 Hrs 02/02/19 02/02/19 02/03/19 13:30 20:33 02:15 Sodium Potassium Chloride Carbon Dioxide Anion Gap BUN Creatinine Estim Creat Clear Calc Est GFR (MDRD) Af Amer Est GFR (MDRD) Non-Af BUN/Creatinine Ratio Glucose Lactic Acid 1.4 Calcium Troponin I 0.019 Urine Opiates Screen NEGATIVE Urine Methadone Screen NEGATIVE Ur Barbiturates Screen NEGATIVE Ur Phencyclidine Scrn NEGATIVE Ur Amphetamines Screen POSITIVE H U Methamphetamin-MDMA NEGATIVE U Benzodiazepines Scrn NEGATIVE Urine Cocaine Screen NEGATIVE U Cannabinoids Screen NEGATIVE Ur Drug Screen Comment 02/03/19 02/03/19 02/03/19 04:52 04:52 07:56 Sodium 134 L Potassium 3.2 L Chloride 95 L Carbon Dioxide 31.0 Anion Gap 8 BUN 15 Creatinine 0.53 L Estim Creat Clear Calc 141.09 Est GFR (MDRD) Af Amer 202 Est GFR (MDRD) Non-Af 167 BUN/Creatinine Ratio 28.1 H Glucose 145 H Lactic Acid Calcium 8.5 Troponin I < 0.015 < 0.015 Urine Opiates Screen Urine Methadone Screen Ur Barbiturates Screen Ur Phencyclidine Scrn Ur Amphetamines Screen U Methamphetamin-MDMA U Benzodiazepines Scrn Urine Cocaine Screen U Cannabinoids Screen Ur Drug Screen Comment POC Glucose 02/03/19 04:09 POC Glucose 156 H Medical Necessity - Tobacco Use Smoking Status: Current every day smoker Tobacco Use: Cigarettes Assessment/Plan All Active Problems (Last Updated 11/23/18 @ 18:10 by Julián Armenta DO) Acute and chronic respiratory failure with hypoxia (Acute) Acute on chronic systolic CHF (congestive heart failure) (Acute) Acute respiratory failure with hypoxia (Acute) Septic shock (Resolved) Severe sepsis (Resolved) Septic shock (Ruled-out) COPD with acute exacerbation (Acute) Acute respiratory failure with hypoxemia (Resolved) Acute bronchitis (Resolved) COPD exacerbation (Resolved) HCAP (healthcare-associated pneumonia) (Resolved) Hypotension (Resolved) MRSA (methicillin resistant Staphylococcus aureus) infection (Resolved) NSVT (nonsustained ventricular tachycardia) (Resolved) Near syncope (Resolved) 1. Acute on chronic hypoxic respiratory failure 2/2 COPD and systolic CHF exacerbations complicated by pulmonary HTN and ischemic cardiomyopathy - improving. Significant diuresis. Continue IV lasix, steroids, aerosols. 2. hyponatremia - likely 2/2 volume overload, improving with diuresis. 3. iron deficiency anemia - at or near baseline. resume po iron 4. AICD in place 5. Hx polysubstance abuse - + for amphetamines 6. Anxiety disorder 7. CAD - resume home meds. DVT ppx: lovenox DC planning: Ambulating in the [place] with no assistance and no o2. Likely home tomorrow with no further needs. Walking pulse ox tmrw prior to DC . This patient was seen by Scott Neumann PA-C under the supervision of Dr. Solorzano <Jian Solorzano - Last Filed: 02/03/19 11:07> - Physical Exam Vital Signs Temp Pulse Resp BP Pulse Ox 97.5 F L 89 18 116/65 97 02/03/19 08:50 02/03/19 08:50 02/03/19 08:50 02/03/19 08:50 02/03/19 08:50 Oxygen Flow Rate (L/min) 1 Oxygen Delivery Method Nasal Cannula Weight: 60.2 kg Body Mass Index (BMI) 22.4 Intake and Output for Last 24 Hours 02/01/19 02/02/19 02/03/19 23:59 23:59 23:59 Intake Total 50 / 50 520 / 520 Output Total 3350 / 3350 825 / 825 Balance -3300 / -3300 -305 / -305 Laboratory Tests Past 24 Hrs 02/02/19 02/02/19 02/03/19 13:30 20:33 02:15 Sodium Potassium Chloride Carbon Dioxide Anion Gap BUN Creatinine Estim Creat Clear Calc Est GFR (MDRD) Af Amer Est GFR (MDRD) Non-Af BUN/Creatinine Ratio Glucose Lactic Acid 1.4 Calcium Magnesium Troponin I 0.019 Urine Opiates Screen NEGATIVE Urine Methadone Screen NEGATIVE Ur Barbiturates Screen NEGATIVE Ur Phencyclidine Scrn NEGATIVE Ur Amphetamines Screen POSITIVE H U Methamphetamin-MDMA NEGATIVE U Benzodiazepines Scrn NEGATIVE Urine Cocaine Screen NEGATIVE U Cannabinoids Screen NEGATIVE Ur Drug Screen Comment 02/03/19 02/03/19 02/03/19 04:52 04:52 07:56 Sodium 134 L Potassium 3.2 L Chloride 95 L Carbon Dioxide 31.0 Anion Gap 8 BUN 15 Creatinine 0.53 L Estim Creat Clear Calc 141.09 Est GFR (MDRD) Af Amer 202 Est GFR (MDRD) Non-Af 167 BUN/Creatinine Ratio 28.1 H Glucose 145 H Lactic Acid Calcium 8.5 Magnesium Troponin I < 0.015 < 0.015 Urine Opiates Screen Urine Methadone Screen Ur Barbiturates Screen Ur Phencyclidine Scrn Ur Amphetamines Screen U Methamphetamin-MDMA U Benzodiazepines Scrn Urine Cocaine Screen U Cannabinoids Screen Ur Drug Screen Comment 02/03/19 07:56 Sodium Potassium Chloride Carbon Dioxide Anion Gap BUN Creatinine Estim Creat Clear Calc Est GFR (MDRD) Af Amer Est GFR (MDRD) Non-Af BUN/Creatinine Ratio Glucose Lactic Acid Calcium Magnesium Pending Troponin I Urine Opiates Screen Urine Methadone Screen Ur Barbiturates Screen Ur Phencyclidine Scrn Ur Amphetamines Screen U Methamphetamin-MDMA U Benzodiazepines Scrn Urine Cocaine Screen U Cannabinoids Screen Ur Drug Screen Comment POC Glucose 02/03/19 04:09 POC Glucose 156 H Assessment/Plan This patient was seen in conjunction with Scott Neumann PA-C . I have independently interviewed and examined the patient and reviewed pertinent historical, laboratory, and other data. Please refer to Scott Neumann PA-C note for details of this patient's presentation, findings, and recommendations. I have reviewed Scott Neumann PA-C note and concur with documented findings. In brief, patient is a 58-year-old male with history of chronic systolic heart failure and COPD apparently noncompliant with therapy presented with progressive shortness of breath Physical Examination: GENERAL: Dyspneic at rest HEENT: Atraumatic; EYES; Anicteric, Normal Conjunctiva RESPIRATORY: Diminished to auscultation bilaterally, CARDIOVASCULAR: Regular S1 S2, GI: soft, non-tender, normoactive bowel sounds, NEURO: Awake; no lateralizing signs. PSYCH; Normal affect Assessment: Acute on chronic hypoxic respiratory failure secondary to 2. COPD with acute exacerbation 3. Acute on chronic systolic heart failure 4. Pulmonary hypertension 5. Coronary artery disease with ischemic cardiomyopathy with an ejection fraction of 15% statupost AICD placement 6. Hyponatremia secondary to fluid overload 7. Polysubstance abuse with positive amphetamines in urine on admission 8. Anxiety disorder 9. DVT prophylaxis SC Lovenox 10. History of medical noncompliance Recommendations: 1. I have discussed the results of my overview and impressions with the patient 2. Options for management were reviewed Code Visit Inpatient E&M: 30572 Subs Hosp L3
--- NOTE | 2019-02-03 11:00 | CASEMGMT ---
Patient has had Medicaid in the past. YASMEEN spoke with patient and asked if he still had Medicaid he said that he does and it is [employer]. YASMEEN suggested he call [facility] or [facility] to make sure it is still active. Nicolasa GUILLAUME MSW
[2019-02-03 11:03] LABS: Magnesium 1.8 mg/dL (1.6-2.6)
--- NOTE | 2019-02-03 15:17 | NURSING ---
Pt wants to leave AMA and is requesting AMA paperwork. Dr Solorzano notified via text. Kristin GARLAND
--- NOTE | 2019-02-03 15:44 | DCINST_ITS ---
- Discharge Diagnoses Current Active Problems: Current Active and Chronic Problems (Last Updated 11/23/18 @ 18:10 by Julián Armenta DO) Acute and chronic respiratory failure with hypoxia (Acute) Acute on chronic systolic CHF (congestive heart failure) (Acute) You will use the following diet at home:: Cardiac, Fluid restricted (specify 2000 mls, 1500 mls) - 1500 Discharge Activity: Return to Normal Activity, May not drive while taking narcotic pain medications. Allergies/Adverse Reactions: Allergies No Known Allergies Allergy (Verified 02/02/19 09:07) Medications to take at Discharge Nitroglycerin (INPATIENT USE) [Nitrostat] 0.4 mg SUBLINGUAL Q5M PRN #1 bottle 12/14/17 ferrous gluconate 324 mg (37.5 mg iron) tablet 325 mg PO BIDCM #60 tab 01/15/18 Gabapentin [Neurontin] 600 mg PO QHS 08/27/18 Albuterol Inhaler [Ventolin Hfa] 2 puff INHALATION Q4H PRN PRN #1 inhaler 10/14/18 aspirin 81 mg tablet,delayed release 81 mg PO DAILY #90 tab 10/17/18 atorvastatin 80 mg tablet 80 mg PO QHS #90 tab 10/17/18 carvedilol 6.25 mg tablet 6.25 mg PO BID #90 tab 10/17/18 clopidogrel 75 mg tablet 75 mg PO DAILY #90 tab 10/17/18 hydroxyzine pamoate 25 mg capsule 25 mg PO TID PRN PRN #30 cap 10/17/18 isosorbide mononitrate ER 30 mg tablet,extended release 24 hr 30 mg PO DAILY #90 tab 10/17/18 losartan 25 mg tablet 25 mg PO DAILY #90 tab 10/17/18 potassium chloride ER 20 mEq tablet,extended release(part/cryst) 20 meq PO DAILY #90 tab 10/17/18 Furosemide [Lasix] 40 mg PO BID@1000,1800 #60 tablet 11/26/18 Naproxen [Naprosyn] 500 mg PO BID PRN #20 tablet 12/04/18 Guaifenesin [Mucinex] 600 mg PO BID #14 tab 12/19/18 Oseltamivir Phosphate [Tamiflu] 75 mg PO BID #10 capsule 01/13/19 Prednisone [Deltasone] 40 mg PO DAILY #10 tablet 01/13/19 Primary Care Physician: Berna Oquendo NP-C [Primary Care Provider] - Test Results: Test results from this visit will be discussed in further detail at your follow- up appointment, if applicable. Please Follow Up With: Ramy Davis MD When: Sunday Proposed Discharge Date: 02/03/19
--- NOTE | 2019-02-03 15:52 | DS.PCM_ITS ---
Discharge Date and Diagnosis - Problem List Patient Problems: Active and Suspected Problems (Last Updated 11/23/18 @ 18:10 by Julián Armenta DO) Acute and chronic respiratory failure with hypoxia (Acute) Acute on chronic systolic CHF (congestive heart failure) (Acute) Date of Admission: 02/02/19 Date of Discharge: 02/03/19 - Primary Discharge Diagnosis Active and Suspected Problems (Last Updated 11/23/18 @ 18:10 by Julián Armenta DO) Acute and chronic respiratory failure with hypoxia (Acute) Acute on chronic systolic CHF (congestive heart failure) (Acute) - Secondary Discharge Diagnosis Chronic Problems (Last Updated 11/23/18 @ 18:10 by Julián Armenta DO) Systolic CHF (Chronic) Elevated troponin (Chronic) ICD (implantable cardioverter-defibrillator) in place (Chronic) History of coronary artery stent placement (Chronic) PCI-RCA and CX Atherosclerosis of coronary artery of habematolel heart without angina pectoris (Chronic) LEFT HEART ASSESSMENT Left Ventricular Ejection Fraction: by LV Gram 10-15 % Global Hypokinesis - Severe Depressed Left Ventricular systolic function Normal Left Ventricular End Diastolic Pressure LEFT MAIN: Non-obstructive LEFT ANTERIOR DECENDING ARTERY: Previously placed stent is patent DIAGONAL 1: Ostial - Mild luminal irregularities less than 30% DIAGONAL 2: Proximal - Non-obstructive CIRCUMFLEX ARTERY: MID CIRC: Previously placed stent is patent RIGHT CORONARY ARTERY: MID RCA: Previously placed stent has instent 20 % restenosis with a new at distal edge of stent Iron deficiency anemia (Chronic) COPD (chronic obstructive pulmonary disease) (Chronic) Tobacco abuse (Chronic) Medical non-compliance (Chronic) Ischemic cardiomyopathy (Chronic) Hospital Course and Treatment Operations: None Summary of Care Provided: Patient is a 58-year-old male with history of chronic systolic heart failure and COPD apparently noncompliant with therapy presented with progressive shortness of breath patient was admitted to monitored bed managed the underlying etiology. Patient came to sign out AGAINST MEDICAL ADVICE yesterday after his admission if he was not relieved. Decision was therefore made to discharge patient home. He was instructed to be compliant with his therapy. He was also instructed to call his primary care physician to schedule a follow-up in 3 to 5 days. 1. Acute on chronic hypoxic respiratory failure secondary to COPD and CHF 2. COPD with acute exacerbation 3. Acute on chronic systolic heart failure 4. Pulmonary hypertension 5. Coronary artery disease with ischemic cardiomyopathy with an ejection fraction of 15% status post AICD placement 6. Hyponatremia secondary to fluid overload 7. Polysubstance abuse with positive amphetamines in urine on admission 8. Anxiety disorder 9. DVT prophylaxis SC Lovenox 10. History of medical noncompliance Patient Problems: Active and Suspected Problems (Last Updated 11/23/18 @ 18:10 by Julián Armenta DO) Acute and chronic respiratory failure with hypoxia (Acute) Acute on chronic systolic CHF (congestive heart failure) (Acute) - Physical Exam General: Alert HEENT: Atraumatic Lungs: Diminished Cardiovascular: Regular rate, Regular Rhythm Extremities: Edema Vital Signs Temp Pulse Resp BP Pulse Ox 97.9 F 87 20 H 99/62 97 02/03/19 14:58 02/03/19 14:59 02/03/19 14:58 02/03/19 14:58 02/03/19 14:58 Oxygen Flow Rate (L/min) 1 Oxygen Delivery Method Nasal Cannula Weight: 60.2 kg Body Mass Index (BMI) 22.4 Intake and Output for Last 24 Hours 02/01/19 02/02/19 02/03/19 23:59 23:59 23:59 Intake Total 50 / 50 1020 / 1020 Output Total 3350 / 3350 1525 / 1525 Balance -3300 / -3300 -505 / -505 Laboratory Tests Past 24 Hrs 02/02/19 02/03/19 02/03/19 20:33 02:15 04:52 Sodium 134 L Potassium 3.2 L Chloride 95 L Carbon Dioxide 31.0 Anion Gap 8 BUN 15 Creatinine 0.53 L Estim Creat Clear Calc 141.09 Est GFR (MDRD) Af Amer 202 Est GFR (MDRD) Non-Af 167 BUN/Creatinine Ratio 28.1 H Glucose 145 H Calcium 8.5 Magnesium Troponin I 0.019 Urine Opiates Screen NEGATIVE Urine Methadone Screen NEGATIVE Ur Barbiturates Screen NEGATIVE Ur Phencyclidine Scrn NEGATIVE Ur Amphetamines Screen POSITIVE H U Methamphetamin-MDMA NEGATIVE U Benzodiazepines Scrn NEGATIVE Urine Cocaine Screen NEGATIVE U Cannabinoids Screen NEGATIVE Ur Drug Screen Comment 02/03/19 02/03/19 02/03/19 04:52 07:56 07:56 Sodium Potassium Chloride Carbon Dioxide Anion Gap BUN Creatinine Estim Creat Clear Calc Est GFR (MDRD) Af Amer Est GFR (MDRD) Non-Af BUN/Creatinine Ratio Glucose Calcium Magnesium 1.8 Troponin I < 0.015 < 0.015 Urine Opiates Screen Urine Methadone Screen Ur Barbiturates Screen Ur Phencyclidine Scrn Ur Amphetamines Screen U Methamphetamin-MDMA U Benzodiazepines Scrn Urine Cocaine Screen U Cannabinoids Screen Ur Drug Screen Comment POC Glucose 02/03/19 04:09 POC Glucose 156 H Discharge Diet: Low fat/ Low Cholesterol, 8 Cup Fluid Restriciton Discharge Activity: Return to Normal Activity, May not drive while taking narcotic pain medications. Home Medications: Medications to take at Discharge Nitroglycerin (INPATIENT USE) [Nitrostat] 0.4 mg SUBLINGUAL Q5M PRN #1 bottle 12/14/17 ferrous gluconate 324 mg (37.5 mg iron) tablet 325 mg PO BIDCM #60 tab 01/15/18 Gabapentin [Neurontin] 600 mg PO QHS 08/27/18 Albuterol Inhaler [Ventolin Hfa] 2 puff INHALATION Q4H PRN PRN #1 inhaler 10/14/18 aspirin 81 mg tablet,delayed release 81 mg PO DAILY #90 tab 10/17/18 atorvastatin 80 mg tablet 80 mg PO QHS #90 tab 10/17/18 carvedilol 6.25 mg tablet 6.25 mg PO BID #90 tab 10/17/18 clopidogrel 75 mg tablet 75 mg PO DAILY #90 tab 10/17/18 hydroxyzine pamoate 25 mg capsule 25 mg PO TID PRN PRN #30 cap 10/17/18 isosorbide mononitrate ER 30 mg tablet,extended release 24 hr 30 mg PO DAILY #90 tab 10/17/18 losartan 25 mg tablet 25 mg PO DAILY #90 tab 10/17/18 potassium chloride ER 20 mEq tablet,extended release(part/cryst) 20 meq PO DAILY #90 tab 10/17/18 Furosemide [Lasix] 40 mg PO BID@1000,1800 #60 tablet 11/26/18 Naproxen [Naprosyn] 500 mg PO BID PRN #20 tablet 12/04/18 Guaifenesin [Mucinex] 600 mg PO BID #14 tab 12/19/18 Oseltamivir Phosphate [Tamiflu] 75 mg PO BID #10 capsule 01/13/19 Prednisone [Deltasone] 40 mg PO DAILY #10 tablet 01/13/19 Primary Care Physician: Berna Oquendo NP-C [Primary Care Provider] - Please Follow Up With: Ramy Davis MD When: Sunday Medical Necessity - Tobacco Use Smoking Status: Current every day smoker Tobacco Use: Cigarettes Meaningful Use Info Meaningful Use Diagnoses (Choose all that apply): CHF - CHF YUE/ARB ordered at discharge?: Yes Documented LVEF (%): 15 Code Visit Inpatient E&M: 80784 Disch Hosp
--- NOTE | 2019-02-04 12:30 | CASEMGMT ---
[facility] CM DC PHONE CALL DC DATE: 02/03/19 DC Disposition: Home LACE/STRATA: 11/01 Attempted call to pt's listed phone. Number has been disconnected. Damon ESPINOZAN RN ACM
== END 2019-02-03 16:14 | disposition home or self-care (01) | DRG 291 ==
LOC: ED 10:04 → PCU 12:06
PROVIDERS: Hospitalist; Physician Assistant; Admitting Provider Internal Medicine; Emergency Provider Emergency Medicine; Family Provider Nurse Practitioner Family; PCP Nurse Practitioner Family; Referring Provider Internal Medicine; Visit Provider Internal Medicine
DX: I50.23 Acute on chronic systolic (congestive) heart failure (principal); J96.21 Acute and chronic respiratory failure with hypoxia; E87.1 Hypo-osmolality and hyponatremia; J44.1 Chronic obstructive pulmonary disease with (acute) exacerbation; D50.9 Iron deficiency anemia, unspecified; Z95.810 Presence of automatic (implantable) cardiac defibrillator; F41.9 Anxiety disorder, unspecified; I25.10 Atherosclerotic heart disease of native coronary artery without angina pectoris; F17.210 Nicotine dependence, cigarettes, uncomplicated; Z99.81 Dependence on supplemental oxygen; I27.20 Pulmonary hypertension, unspecified; Z95.5 Presence of coronary angioplasty implant and graft; I25.5 Ischemic cardiomyopathy; F19.10 Other psychoactive substance abuse, uncomplicated; Z79.899 Other long term (current) drug therapy
CPT/HCPCS: 36415; 36600; 71045; 80048; 80307; 82803; 82962; 83605; 83735; 83880; 84484; 85025; 87040; 93005; 94002; 94640; 97162; 97166; 99251; 99285; 99406; A4216; G0463; J1940

== ENCOUNTER 2019-03-05 11:24 | Observation (INO) | payer MEDICARE, MEDICAID, SELFPAY ==
[2019-02-02 13:12] VITALS: BMI 22.4
[2019-03-05] VITALS (9 sets, daily range): BP systolic 124–159; BP diastolic 77–108; PULSE 98–110; RESP 16–24; TEMP 36.4–37.4; O2SAT 93–100; BMI 22.1; BMI 22.2; BMI 20.8
--- NOTE | 2019-03-05 11:34 | EKG12_ITS ---
Test Reason : SOB Blood Pressure : / mmHG Vent. Rate : 109 BPM Atrial Rate : 109 BPM P-R Int : 170 ms QRS Dur : 122 ms QT Int : 366 ms P-R-T Axes : 056 -72 104 degrees QTc Int : 492 ms Sinus tachycardia Possible Left atrial enlargement Left axis deviation Non-specific intra-ventricular conduction delay T wave abnormality, consider lateral ischemia Abnormal ECG Confirmed by ERICA BARLOW, SOFY ([id number]), editor index AMADOR EDMONDS ([id number]) on 03/07/2019 6:38:46 AM Referred By: Dell Willson Confirmed By:SOFY MALDONADO MD
--- NOTE | 2019-03-05 11:35 | RAD_ITS ---
STUDY: X-RAY CHEST REASON FOR EXAM: Male, 58 years old. Dyspnea. Left shoulder pain. TECHNIQUE: AP and lateral views of the chest. COMPARISON: Comparison is made with prior study dated February 02, 2019. FINDINGS: EKG electrodes are seen. Hyperinflation. Stable mild increased markings at the left lung base years of scarring. There is mild cardiac enlargement. A left-sided unipolar pacemaker is seen. Normal mediastinum and alberto. Normal visualized pulmonary arteries. There is atherosclerotic calcification of the aortic arch with tortuosity. There are diffuse degenerative changes of the visualized thoracic spine. Normal visualized ribs, clavicles, and shoulders. There is no demonstrated abnormality of the visualized soft tissue structures of the upper abdomen. RAD/Chest PA and Lateral IMPRESSION: No acute abnormality is seen. Electronically Signed: Darrick Coreas, at 12:54 EDT , Service support ,
--- NOTE | 2019-03-05 11:45 | ED.DCSUM_ITS ---
History of Present Illness Chief Complaint: Other, Pain/Inj Informant: Patient Onset: Days - Onset of shortness of breath and bone pain 2 days Context: Sudden Onset Timing: Continuous Quality: Pain Location: Neck, left shoulder and shortness of breath Current Severity: Moderate Maximum Severity: Severe Worsened by: Movement Relieved by: Better with ice Associated Symptoms: Productive cough of yellow sputum Narrative: Patient is a 58-year-old male who looks much older than documented age. He complains of temperature to 102.0 ?F yesterday. He states he took Tylenol this morning. He denies headache, photophobia or neck stiffness. He does report neck pain anterior left side. He does report shortness of breath with productive cough. He denies chest pain. He denies nausea, vomiting or diarrhea. He does report constipation. He reports weight loss. He is a smoker of 1/2 pack/day. He states 5 years ago he smoked 2 to 3 packs/day. He also was a heavy drinker many years ago. Patient reports change in color his urine. He acknowledges that it is darker. He denies blood, dysuria or frequency. He complains of generalized weakness. Prior similar symptoms: Yes Recent Illness/Hospitalization: No - Past Medical History (1) Acute on chronic systolic CHF (congestive heart failure) Status: Acute (2) COPD (chronic obstructive pulmonary disease) Status: Chronic (3) History of coronary artery stent placement Status: Chronic Comment: PCI-RCA and CX (4) ICD (implantable cardioverter-defibrillator) in place Status: Chronic (5) Iron deficiency anemia Status: Chronic (6) Ischemic cardiomyopathy Status: Chronic (7) Tobacco abuse Status: Chronic Past Medical History - Allergies and Home Meds Allergies/Adverse Reactions: Allergies No Known Allergies Allergy (Verified 03/05/19 11:25) Primary Care Physician: Berna Oquendo NP-C [Primary Care Provider] - Prior records reviewed: Yes Surgical History: - - PCI x 10-11. Lives: Alone Smoking Status: Current every day smoker Alcohol: None Drugs: None - Family History Maternal Family History: Family History (Last Reviewed 09/27/18 @ 02:26 by Marcus Mi MD) Father CAD (coronary artery disease) Heart disease Mother CAD (coronary artery disease) Heart disease Aunt Cancer Brother Heart disease Hypertension Family History: Reports: Heart Disease Paternal Family History: Family History (Last Reviewed 09/27/18 @ 02:26 by Marcus Mi MD) Father CAD (coronary artery disease) Heart disease Mother CAD (coronary artery disease) Heart disease Aunt Cancer Brother Heart disease Hypertension Family History: Reports: Heart Disease Review of Systems General: Reports: Chills, Fever, Malaise, Weight loss. Denies: Subjective, Sweats Eyes: Denies: Visual changes - bilaterally, Blurred Vision - bilaterally ENT: Denies: Bilateral ear pain, Rhinorrhea, Sore throat Cardiovascular: Denies: Chest pain, Palpitations, Heart racing Respiratory: Reports: Dyspnea, Cough, Sputum, Dyspnea on exertion. Denies: Orthopnea, Paroxysmal nocturnal dyspnea Gastrointestinal: Reports: Nausea. Denies: Abdominal pain, Vomiting, Diarrhea, Constipation, Melena, Hematochezia Genitourinary: Reports: - - He reports dark urine.. Denies: Dysuria, Hematuria, Frequency Musculoskeletal: Reports: Myalgias, Arthralgias, Neck pain, Extremity Pain - Left shoulder. Denies: Back pain, Swelling Skin: Denies: Rash, Wounds Neurological: Reports: Weakness. Denies: Headache, Parasthesia, Numbness Hematologic: Denies: Easy bruising, Easy bleeding Allergy: Denies: Uticaria, Swelling of the mouth, Swelling of the tongue Physical Exam Vital Signs/Narrative: Vital Signs Temp Pulse Resp BP Pulse Ox 03/05/19 11:26 97.6 F L 110 H 24 H 132/93 H 95 Inital Vital Signs reviewed: Yes General: Well developed, Cachectic, Unkempt, Acute Distress Head: Normocephalic, Atraumatic Eyes: Perrl, EOMI, Scleral icterus. Negative for: Pale conjunctiva ENT: Moist mucous membranes, No rhinorrhea, TM's clear. Negative for: Nasal congestion, Sinus tenderness Neck: Supple, Nontender, No lymphadenopathy, No JVD, - Cardiovascular: Regular rhythm, No murmurs, Normal S1, Normal S2, Tachycardia Respiratory: CTA bilaterally, Chest nontender. Negative for: Diminished, Decreased Air Movement Abdomen: Soft, Nontender, Nondistended, Normal bowel sounds, No masses. Negative for: Hepatomegaly, Splenomegaly, Mass, Pulsatile mass Rectal: Deferred Back: Normal Inspection, - - He reports bilateral dorsal and lumbar discomfort to palpation. Negative for: CVA tenderness, Spinal tenderness Extremities: Nontender, No edema Skin: No rash, Cyanosis - Acral cyanosis of toes, Jaundice, No Trauma. Negative for: Diaphoresis Neurological: Alert, Oriented x3, Cranial nerves II-XII grossly intact, Normal Strength, Normal Sensation, Normal DTR. Negative for: Normal Gait - Gait was not tested Psychological: Depressed Diagnostic/Tx/Re-eval Impressions Chest X-Ray 03/05/19 11:35 IMPRESSION: No acute abnormality is seen. Electronically Signed: Darrick Coreas, at 12:54 EDT , Service support , Abdomen/Pelvis CT 03/05/19 12:42 IMPRESSION: 1. Emphysematous/fibrotic changes at the lung bases. 2. Cardiomegaly. An intracardiac wire is seen. Coronary stents are noted. 3. The liver demonstrates a diffuse mottled texture. There is no dilatation of the intra or extrahepatic biliary ductal system. There is a subcentimeter right hepatic lobe cyst. 4. There is mild diffuse gallbladder wall thickening. 5. Nonobstructing 2 mm right renal calculus. 6. Diffusely increased stranding of the subcutaneous fat suggestive of anasarca. 7. Small fat-containing umbilical hernia. Electronically Signed: Aj Ortiz MD at 16:39 EDT , Service support , 03/05/19 11:35 Chest PA and Lateral [RAD] Stat 03/05/19 12:42 Abdomen/Pelvis WITH Contrast [CT] Stat Laboratory Results 03/05/19 03/05/19 03/05/19 11:45 11:45 11:45 WBC 10.3 RBC 4.54 L Hgb 11.7 L Hct 35.5 L MCV 78.2 L MCH 25.8 L MCHC 33.0 RDW 17.5 H RDW Differential 49.8 H Plt Count 243 MPV 8.9 Immature Gran % (Auto) 0.200 Neut % (Auto) 79.5 H Lymph % (Auto) 11.5 L [place] % (Auto) 8.0 Eos % (Auto) 0.3 Baso % (Auto) 0.5 Absolute Neuts (auto) 8.2 H Absolute Lymphs (auto) 1.19 Total Counted Not Reportable PT 19.2 H INR 1.6 APTT 33.7 Sodium 129 L Potassium 4.6 Chloride 98 Carbon Dioxide 24.0 Anion Gap 7 BUN 18 Creatinine 0.93 Estim Creat Clear Calc 78.97 Est GFR (MDRD) Af Amer 107 Est GFR (MDRD) Non-Af 88 BUN/Creatinine Ratio 19.4 Glucose 130 H Lactic Acid Calcium 8.6 Total Bilirubin 2.40 H AST 37 ALT 22 Alkaline Phosphatase 132 H Total Protein 7.2 Albumin 3.1 L Globulin 4.1 Albumin/Globulin Ratio 0.8 L Lipase 65 L Urine Color Urine Clarity Urine pH Ur Specific [place] Urine Protein Urine Glucose (UA) Urine Ketones Urine Occult Blood Urine Nitrite Urine Bilirubin Urine Urobilinogen Ur Leukocyte Esterase Urine RBC Urine WBC Ur Squamous Epith Cells Urine Bacteria Urine Mucus 03/05/19 03/05/19 11:45 12:10 WBC RBC Hgb Hct MCV MCH MCHC RDW RDW Differential Plt Count MPV Immature Gran % (Auto) Neut % (Auto) Lymph % (Auto) [place] % (Auto) Eos % (Auto) Baso % (Auto) Absolute Neuts (auto) Absolute Lymphs (auto) Total Counted PT INR APTT Sodium Potassium Chloride Carbon Dioxide Anion Gap BUN Creatinine Estim Creat Clear Calc Est GFR (MDRD) Af Amer Est GFR (MDRD) Non-Af BUN/Creatinine Ratio Glucose Lactic Acid 2.5 H Calcium Total Bilirubin AST ALT Alkaline Phosphatase Total Protein Albumin Globulin Albumin/Globulin Ratio Lipase Urine Color Yellow Urine Clarity Sl. Cloudy Urine pH 5.0 Ur Specific [place] 1.020 Urine Protein 100 H Urine Glucose (UA) Normal Urine Ketones 5 H Urine Occult Blood 25 H Urine Nitrite Negative Urine Bilirubin Negative Urine Urobilinogen Normal Ur Leukocyte Esterase 25 H Urine RBC 0-5 SEEN Urine WBC 0-5 SEEN Ur Squamous Epith Cells 0-5 SEEN Urine Bacteria 0 SEEN Urine Mucus 0 SEEN - EKG Initial EKG Interpretation: Sinus Tachycardia - Ventricular rate is 109. VT interval is 170 ms. QRS duration is prolonged at 122 ms and reveals a nonspecific intraventricular conduction delay. There are T wave abnormalities noted suspect this is from the intraventricular conduction delay which is suggestive of a left bundle branch block. The EKG is essentially unchanged since February 03, 2019. QRS duration is more prolonged than previous. Prior: Unchanged - Medical Decision Making With reported temperature of 102.0 ?F with shortness of breath and productive cough chest x-ray was obtained to assess for pneumonia. Conference of metabolic panel, CBC, lipase UA and coags were obtained to assess liver function as well as liver disease since clinically he appears jaundiced. If bilirubin is elevated in light of history of weight loss and painless jaundice will obtain CT of the abdomen and pelvis to evaluate for pancreatic cancer. If there is evidence of pneumonia with an elevated lactate will obtain blood cultures. Nurse described breathing pattern consistent with Max-Fofana pattern. CT report was read. There are multiple non-specific as well as specific findings. This does not explain his leukocytosis, lactic acidosis. Nor this is explain his fever. Since there is no obvious source and he is not hypotensive antibiotics were not administered. Hospitalist has been paged for further work- up of possibly the biliary system. ED Disposition - Plan for ED Patient: Disposition: Acute Care Hospital [facility] Diagnosis: Unspecified jaundice, Lactic acidosis, Sinus tachycardia by electrocardiogram, Dyspnea, Leukocytosis, Hyponatremia, History of ischemic cardiomyopathy, Anemia, unspecified, Unintentional weight loss, Nonobstructing renal stone Referrals: Berna Oquendo NP-C [Primary Care Provider] -
[2019-03-05 12:07] LABS: International Normalized Ratio 1.6; Prothrombin Time (Protime)PT. 19.2 SECONDS (11.7-14.9)
[2019-03-05 12:08] LABS: Partial Thromboplast Time 33.7 Seconds (24.1-36.2)
[2019-03-05 12:10] LABS: Absolute Lymphocyte Count 1.19 X10^3/ul (0.83-4.51); Absolute Neutrophil Count 8.2 X10^3/uL (2.0-7.7); Basophil# 0.05 X10^3/uL; Basophil% 0.5 % (0-1); Eosinophil# 0.03 X10^3/uL; Eosinophils% 0.3 % (0-5); Hematocrit 35.5 % (40-54); Hemoglobin 11.7 g/dl (13.0-16.5); Lymphocyte # 1.19 X10^3/ul (4.0); Lymphocyte % 11.5 % (19-41); Mean Corpuscular Hgb 25.8 pg (27.0-32.0); Mean Corpuscular Volume 78.2 fL (80-94); Mean Platelet Vol. 8.9 fl (6.2-12.0); Monocyte# 0.83 X10^3/uL; Neutrophil % 79.5 % (47-70); POSITIVE COUNT NO; POSITIVE DIFFERENTIAL NO; POSITIVE MORPHOLOGY NO; Platelet Count 243 K/mm3 (150-450); RBC Distribution Width CV 17.5 % (11.6-14.6); RBC Distribution Width SD 49.8 fl (35.1-43.9); Red Blood Count 4.54 M/mm3 (4.6-6.2); White Blood Count 10.3 K/mm3 (4.4-11.0)
[2019-03-05 12:12] LABS: ALB/GLOB Ratio 0.8 RATIO (0.9-2.4); AST(SGOT) 37 U/L (15-37); Alanine Aminotransfer ALT/SGPT 22 U/L (16-61); Albumin, Serum 3.1 g/dL (3.2-5.0); Alkaline Phosphatase 132 U/L (45-117); Anion Gap 7 (5-15); BUN 18 mg/dL (7-18); BUN/Creat Ratio 19.4 RATIO (10-20); Calcium,Total 8.6 mg/dL (8.5-10.1); Chloride 98 mmol/L (98-107); Creatinine, Serum 0.93 mg/dL (0.70-1.30); EST Glomerular Filtration Rate 88 mL/min (>60); Est Glom Filt Rate - Afr Amer 107 mL/min (>60); Estimated Creatinine Clearance 78.97 ml/min; Globulin 4.1 g/dL (2.2-4.2); Glucose 130 mg/dL (74-106); Lipase 65 U/L (73-393); Potassium 4.6 mmol/L (3.5-5.1); Protein, Total 7.2 g/dL (6.4-8.2); Sodium Level 129 mmol/L (136-145)
[2019-03-05 12:18] LABS: Bacteria 0 SEEN /hpf (None Seen); Mucous, Urine 0 SEEN /hpf (<or=2+)
[2019-03-05 12:24] LABS: Color, Urine Yellow (Yellow); Glucose, Dipstick Normal (Normal); Ketone-Dipstick 5 mg/dl (Negative); Leukocyte Esterase-Dipstick 25 /ul (Negative); Nitrite-Dipstick Negative (Negative); Occult Blood-Urine 25 /ul (Negative); Protein-Dipstick 100 mg/dl (Negative); Urine Bilirubin Dipstick Negative (Negative); Urine Clarity Sl. Cloudy (Clear); Urine Urobilinogen Normal (Normal)
--- NOTE | 2019-03-05 12:42 | CT_ITS ---
STUDY: CT ABDOMEN AND PELVIS WITH CONTRAST REASON FOR EXAM: Male, 58 years old. Painless jaundice RADIATION DOSAGE (If Supplied By Facility): CTDIvol = ( 22.35 ) mGy, DLP = ( 727.82 ) mGycm TECHNIQUE: Transaxial images were obtained from the dome of the diaphragm to the symphysis pubis with oral contrast. 100CC IV/Oral Isovue 300 was administered. Sagittal and coronal images were reconstructed. Individualized dose optimization techniques were used for this CT. COMPARISON: None. FINDINGS: There are emphysematous/fibrotic changes of the lung bases. Cardiomegaly is present. An intracardiac wire is noted. Coronary stents are seen. There is no pericardial effusion. The liver demonstrates a diffuse mottled texture. There is a subcentimeter right hepatic lobe cyst. There is mild diffuse gallbladder wall thickening. Normal spleen. Normal pancreas. Normal bilateral adrenal glands. There is a nonobstructing 2 mm right renal calculus. Normal left kidney. Normal visualized stomach. Normal small intestine. Normal colon. The appendix is visualized and appears normal. There are densely calcified plaques of the abdominal aorta and common iliac arteries. Normal inferior vena cava. Normal retroperitoneum. Normal urinary bladder. There is diffusely increased stranding of the subcutaneous fat suggestive of anasarca. There is a small umbilical hernia containing fat. There are diffuse degenerative changes of the visualized lumbar spine. CT/Abdomen/Pelvis WITH Contrast IMPRESSION: 1. Emphysematous/fibrotic changes at the lung bases. 2. Cardiomegaly. An intracardiac wire is seen. Coronary stents are noted. 3. The liver demonstrates a diffuse mottled texture. There is no dilatation of the intra or extrahepatic biliary ductal system. There is a subcentimeter right hepatic lobe cyst. 4. There is mild diffuse gallbladder wall thickening. 5. Nonobstructing 2 mm right renal calculus. 6. Diffusely increased stranding of the subcutaneous fat suggestive of anasarca. 7. Small fat-containing umbilical hernia. Electronically Signed: Aj Ortiz MD at 16:39 EDT , Service support ,
[2019-03-05 12:45] LABS: Lactic Acid 2.5 mmol/L (0.4-2.0)
[2019-03-05 12:54] LABS: Red Blood Cells-Urine 0-5 SEEN /hpf (0-5); Squamous Epithelial Cells - UA 0-5 SEEN /hpf (0-5); White Blood Cells 0-5 SEEN /hpf (0-5)
[2019-03-05] MEDS: Morphine 4 MG/ML Syringe IV (13:02)
[2019-03-05] MEDS: Metoclopramide 10 MG/2 ML Vial 5 MG IV (13:02)
[2019-03-05] MEDS: 0.9% Normal Saline 1,000 ML 1000 ML IV (13:04)
[2019-03-05 15:52] LABS: Reflex Lactate? Y
--- NOTE | 2019-03-05 17:02 | NURSING ---
DR STEARNS FOR DR BELLO
--- NOTE | 2019-03-05 17:16 | NURSING ---
PCU KOTSONIS JAUNDICE, TACHYCARDIA, LACTIC ACIDOSIS, LEUKOCYTOSIS
--- NOTE | 2019-03-05 17:25 | PCM.HP.STD ---
<Scott Neumann - Last Filed: 03/05/19 17:25> Problem List (1) Unspecified jaundice Status: Acute (2) Amphetamine abuse Status: Chronic (3) Chronic respiratory failure with hypoxia Status: Chronic (4) Anemia, unspecified Status: Chronic (5) Acute and chronic respiratory failure with hypoxia Status: Chronic (6) Systolic CHF Status: Chronic (7) ICD (implantable cardioverter-defibrillator) in place Status: Chronic (8) Atherosclerosis of coronary artery of [place] heart without angina pectoris Status: Chronic Qualifiers: Coronary Disease-Associated Artery/Lesion type: [place] artery Qualified Code(s): I25.10 - Atherosclerotic heart disease of [place] coronary artery without angina pectoris Comment: LEFT HEART ASSESSMENT Left Ventricular Ejection Fraction: by LV Gram 10-15 % Global Hypokinesis - Severe Depressed Left Ventricular systolic function Normal Left Ventricular End Diastolic Pressure LEFT MAIN: Non-obstructive LEFT ANTERIOR DECENDING ARTERY: Previously placed stent is patent DIAGONAL 1: Ostial - Mild luminal irregularities less than 30% DIAGONAL 2: Proximal - Non-obstructive CIRCUMFLEX ARTERY: MID CIRC: Previously placed stent is patent RIGHT CORONARY ARTERY: MID RCA: Previously placed stent has instent 20 % restenosis with a new at distal edge of stent (9) COPD (chronic obstructive pulmonary disease) Status: Chronic (10) Medical non-compliance Status: Chronic (11) Ischemic cardiomyopathy Status: Chronic History of Present Illness Date of Admission: 03/05/19 Chief Complaint: fever The patient is a 58 year old M with a pmhx of CAD prior stents, ischemic cardiomyopathy, systolic heart failure with EF 15%, ICD in place, ongoing amphetamine abuse, HTN, HLD, chronic hypoxic respiratory failure, COPD, and repeated bouts of medical noncompliance, who presents to the ER with c/o fever of 102 yesterday, and also with left shoulder and left arm pain. He states he has felt unwell for several days. He has been nauseous and vomiting, however currently he wants to eat. He has no abdominal pain and no diarrhea. He appears somewhat jaundiced in bed. He denies alcohol use. [] Past Medical History Past Medical History (Chronic Problems): Chronic Problems (Last Updated 11/23/18 @ 18:10 by Julián Armenta DO) Anemia, unspecified (Chronic) Amphetamine abuse (Chronic) Chronic respiratory failure with hypoxia (Chronic) Acute and chronic respiratory failure with hypoxia (Chronic) Acute on chronic systolic CHF (congestive heart failure) (Chronic) Systolic CHF (Chronic) Elevated troponin (Chronic) ICD (implantable cardioverter-defibrillator) in place (Chronic) History of coronary artery stent placement (Chronic) PCI-RCA and CX Atherosclerosis of coronary artery of [place] heart without angina pectoris (Chronic) LEFT HEART ASSESSMENT Left Ventricular Ejection Fraction: by LV Gram 10-15 % Global Hypokinesis - Severe Depressed Left Ventricular systolic function Normal Left Ventricular End Diastolic Pressure LEFT MAIN: Non-obstructive LEFT ANTERIOR DECENDING ARTERY: Previously placed stent is patent DIAGONAL 1: Ostial - Mild luminal irregularities less than 30% DIAGONAL 2: Proximal - Non-obstructive CIRCUMFLEX ARTERY: MID CIRC: Previously placed stent is patent RIGHT CORONARY ARTERY: MID RCA: Previously placed stent has instent 20 % restenosis with a new at distal edge of stent Iron deficiency anemia (Chronic) COPD (chronic obstructive pulmonary disease) (Chronic) Tobacco abuse (Chronic) Medical non-compliance (Chronic) Ischemic cardiomyopathy (Chronic) Medical History: Medical History (Last Updated 11/23/18 @ 18:10 by Julián Armenta DO) Atherosclerosis of coronary artery of [place] heart without angina pectoris (Chronic) I25.10 LEFT HEART ASSESSMENT Left Ventricular Ejection Fraction: by LV Gram 10-15 % Global Hypokinesis - Severe Depressed Left Ventricular systolic function Normal Left Ventricular End Diastolic Pressure LEFT MAIN: Non-obstructive LEFT ANTERIOR DECENDING ARTERY: Previously placed stent is patent DIAGONAL 1: Ostial - Mild luminal irregularities less than 30% DIAGONAL 2: Proximal - Non-obstructive CIRCUMFLEX ARTERY: MID CIRC: Previously placed stent is patent RIGHT CORONARY ARTERY: MID RCA: Previously placed stent has instent 20 % restenosis with a new at distal edge of stent Acute respiratory failure with hypoxemia (Resolved) J96.01 Iron deficiency anemia (Chronic) D50.9 COPD (chronic obstructive pulmonary disease) (Chronic) J44.9 Tobacco abuse (Chronic) Z72.0 Medical non-compliance (Chronic) Z91.19 Ischemic cardiomyopathy (Chronic) I25.5 Acute on chronic systolic (congestive) heart failure I50.23 Restless leg syndrome G25.81 Acute bronchitis (Resolved) J20.9 COPD exacerbation (Resolved) J44.1 Recent discharge 12/14/17 following treatment for acute on chronic systolic CHF exacerbation, acute COPD exacerbation with acute hypoxic respiratory failure and MRSA HCAP PNA. HCAP (healthcare-associated pneumonia) (Resolved) J18.9 Recent discharge 12/14/17 following treatment for acute on chronic systolic CHF exacerbation, acute COPD exacerbation with acute hypoxic respiratory failure and MRSA HCAP PNA. Hypotension (Resolved) I95.9 MRSA (methicillin resistant Staphylococcus aureus) infection (Resolved) A49.02 Recent discharge 12/14/17 following treatment for acute on chronic systolic CHF exacerbation, acute COPD exacerbation with acute hypoxic respiratory failure and MRSA HCAP PNA. NSVT (nonsustained ventricular tachycardia) (Resolved) I47.2 Near syncope (Resolved) R55 Elevated troponin (Inactive) R74.8 Allergies No Known Allergies Allergy (Verified 03/05/19 11:25) Home Medications: Ambulatory Orders Medication Instructions Recorded Nitroglycerin (INPATIENT USE) 0.4 mg SUBLINGUAL Q5M PRN #1 bottle 12/14/17 [Nitrostat] ferrous gluconate 324 mg (37.5 mg 325 mg PO BIDCM #60 tab 01/15/18 iron) tablet Albuterol Inhaler [Ventolin Hfa] 2 puff INHALATION Q4H PRN PRN #1 10/14/18 inhaler aspirin 81 mg tablet,delayed 81 mg PO DAILY #90 tab 10/17/18 release hydroxyzine pamoate 25 mg capsule 25 mg PO TID PRN PRN #30 cap 10/17/18 Naproxen [Naprosyn] 500 mg PO BID PRN #20 tablet 12/04/18 Guaifenesin [Mucinex] 600 mg PO BID #14 tab 12/19/18 Atorvastatin Calcium [Lipitor] 80 mg PO QHS 03/05/19 Carvedilol [Coreg (Beta Fletcher)] 6.25 mg PO BID 03/05/19 Clopidogrel Bisulfate [Plavix] 75 mg PO DAILY 03/05/19 Furosemide [Lasix] 40 mg PO BID@1000,1800 03/05/19 Isosorbide Mononitrate [Imdur] 30 mg PO DAILY 03/05/19 Losartan Potassium [Cozaar] 25 mg PO DAILY 03/05/19 Potassium Chloride [K-Dur] 20 meq PO DAILY 03/05/19 Surgical History: Surgical History (Last Reviewed 09/27/18 @ 02:25 by Mracus Mi MD) ICD (implantable cardioverter-defibrillator) in place (Chronic) Z95.810 History of coronary artery stent placement (Chronic) Z95.5 PCI-RCA and CX History of coronary artery stent placement Z95.5 [id number] and Cx History of left heart catheterization Onset Date: 12/14/17 Z98.890 CORONARY ANGIOGRAPHY DOMINANCE: Right Dominant LEFT HEART ASSESSMENT Left Ventricular Ejection Fraction: by LV Gram 10-15 % Global Hypokinesis - Severe Depressed Left Ventricular systolic function Normal Left Ventricular End Diastolic Pressure LEFT MAIN: Non-obstructive LEFT ANTERIOR DECENDING ARTERY: Previously placed stent is patent DIAGONAL 1: Ostial - Mild luminal irregularities less than 30% DIAGONAL 2: Proximal - Non-obstructive CIRCUMFLEX ARTERY: MID CIRC: Previously placed stent is patent RIGHT CORONARY ARTERY: MID RCA: Previously placed stent has instent 20 % restenosis with a new at distal edge of stent Surgical History: - - PCI x 10-11. ICD placement Psychiatric History: No pertinent psych hx Lives: Friends Smoking Status: Current every day smoker Tobacco Use: Cigarettes Alcohol: None Drugs: None - *Family History Maternal Family History: Family History (Last Reviewed 09/27/18 @ 02:26 by Marcus Mi MD) Father CAD (coronary artery disease) Heart disease Mother CAD (coronary artery disease) Heart disease Aunt Cancer Brother Heart disease Hypertension History Items: Heart Disease Paternal Family History: Family History (Last Reviewed 09/27/18 @ 02:26 by Marcus Mi MD) Father CAD (coronary artery disease) Heart disease Mother CAD (coronary artery disease) Heart disease Aunt Cancer Brother Heart disease Hypertension History Items: Heart Disease Review of Systems Constitutional: Reports: Malaise, Weakness. Denies: Chills, Fever, Weight Change Eyes: Denies: Blurred vision, Double vision, Drainage, Vision Change HEENT: Denies: Head Aches, Sinus Congestion, Sinus Drainage Cardiovascular: Denies: Chest Pain, Palpitations Respiratory: Denies: Cough, Shortness of breath at rest, Sputum production Gastrointestinal: Reports: Nausea, Vomiting. Denies: Abdominal Pain, Diarrhea Genitourinary: Denies: Dysuria Musculoskeletal: Reports: - - left shoulder and arm pain. Denies: Joint Pain, Joint Tenderness Skin: Reports: Jaundice. Denies: Rash, Wounds Neurological: Denies: Numbness, Tingling, Focal weakness Psychiatric: Denies: Anxiety, Depression, Homicidal Ideations, Suicidal Ideations Hematologic/ Lymphatic: Denies: Easy Bruising, Easy Bleeding VTE Information - Inpt Only VTE Present on Admission: No VTE Mechan Device Prophylaxis: None VTE Pharm Prophylaxis ordered?: Yes Patient Problems: Active and Suspected Problems (Last Updated 11/23/18 @ 18:10 by Julián Armenta DO) Unspecified jaundice (Acute) Lactic acidosis (Acute) Sinus tachycardia by electrocardiogram (Acute) Dyspnea (Acute) Leukocytosis (Acute) Hyponatremia (Acute) History of ischemic cardiomyopathy (Acute) Unintentional weight loss (Acute) - Physical Exam General: Alert, Oriented x3, Cooperative HEENT: Atraumatic, PERRLA, EOMI, Normocephalic, - - jaundice Neck: Supple, No JVD, Negative Carotid Bruits Lungs: Clear to auscultation, Normal air movement Cardiovascular: Regular rate, No murmurs Abdomen: Bowel Sounds Present, Soft, Non Tender Extremities: No edema, Capillary Refill Less than 3 Seconds Skin: No rashes, No breakdown Musculoskeletal: No Tenderness to Palpation of Joints or Extremities Neurological: Cranial nerves II-XII grossly intact Psych/Mental Status: Normal Affect, Appropriate Vital Signs Temp Pulse Resp BP Pulse Ox 98.8 F 109 H 20 H 144/103 H 98 03/05/19 16:58 03/05/19 16:58 03/05/19 16:58 03/05/19 16:58 03/05/19 16:58 Oxygen Flow Rate (L/min) 2 Oxygen Delivery Method Room Air Weight: 145 lb 11.609 oz Body Mass Index (BMI) 22.1 Finger Stick Blood Glucose 130 Laboratory Tests Past 24 Hrs 03/05/19 03/05/19 03/05/19 11:45 11:45 11:45 WBC 10.3 RBC 4.54 L Hgb 11.7 L Hct 35.5 L MCV 78.2 L MCH 25.8 L MCHC 33.0 RDW 17.5 H RDW Differential 49.8 H Plt Count 243 MPV 8.9 Immature Gran % (Auto) 0.200 Neut % (Auto) 79.5 H Lymph % (Auto) 11.5 L [place] % (Auto) 8.0 Eos % (Auto) 0.3 Baso % (Auto) 0.5 Absolute Neuts (auto) 8.2 H Absolute Lymphs (auto) 1.19 Total Counted Not Reportable PT 19.2 H INR 1.6 APTT 33.7 Sodium 129 L Potassium 4.6 Chloride 98 Carbon Dioxide 24.0 Anion Gap 7 BUN 18 Creatinine 0.93 Estim Creat Clear Calc 78.97 Est GFR (MDRD) Af Amer 107 Est GFR (MDRD) Non-Af 88 BUN/Creatinine Ratio 19.4 Glucose 130 H Lactic Acid Calcium 8.6 Total Bilirubin 2.40 H AST 37 ALT 22 Alkaline Phosphatase 132 H Total Protein 7.2 Albumin 3.1 L Globulin 4.1 Albumin/Globulin Ratio 0.8 L Lipase 65 L Urine Color Urine Clarity Urine pH Ur Specific [place] Urine Protein Urine Glucose (UA) Urine Ketones Urine Occult Blood Urine Nitrite Urine Bilirubin Urine Urobilinogen Ur Leukocyte Esterase Urine RBC Urine WBC Ur Squamous Epith Cells Urine Bacteria Urine Mucus 03/05/19 03/05/19 03/05/19 11:45 12:10 17:00 WBC RBC Hgb Hct MCV MCH MCHC RDW RDW Differential Plt Count MPV Immature Gran % (Auto) Neut % (Auto) Lymph % (Auto) [place] % (Auto) Eos % (Auto) Baso % (Auto) Absolute Neuts (auto) Absolute Lymphs (auto) Total Counted PT INR APTT Sodium Potassium Chloride Carbon Dioxide Anion Gap BUN Creatinine Estim Creat Clear Calc Est GFR (MDRD) Af Amer Est GFR (MDRD) Non-Af BUN/Creatinine Ratio Glucose Lactic Acid 2.5 H Pending Calcium Total Bilirubin AST ALT Alkaline Phosphatase Total Protein Albumin Globulin Albumin/Globulin Ratio Lipase Urine Color Yellow Urine Clarity Sl. Cloudy Urine pH 5.0 Ur Specific [place] 1.020 Urine Protein 100 H Urine Glucose (UA) Normal Urine Ketones 5 H Urine Occult Blood 25 H Urine Nitrite Negative Urine Bilirubin Negative Urine Urobilinogen Normal Ur Leukocyte Esterase 25 H Urine RBC 0-5 SEEN Urine WBC 0-5 SEEN Ur Squamous Epith Cells 0-5 SEEN Urine Bacteria 0 SEEN Urine Mucus 0 SEEN Assessment/Plan All Active Problems (Last Updated 11/23/18 @ 18:10 by Julián Armenta DO) Unspecified jaundice (Acute) Lactic acidosis (Acute) Sinus tachycardia by electrocardiogram (Acute) Dyspnea (Acute) Leukocytosis (Acute) Hyponatremia (Acute) History of ischemic cardiomyopathy (Acute) Unintentional weight loss (Acute) Acute respiratory failure with hypoxia (Acute) Septic shock (Resolved) Severe sepsis (Resolved) Septic shock (Ruled-out) COPD with acute exacerbation (Acute) Acute respiratory failure with hypoxemia (Resolved) Acute bronchitis (Resolved) COPD exacerbation (Resolved) HCAP (healthcare-associated pneumonia) (Resolved) Hypotension (Resolved) MRSA (methicillin resistant Staphylococcus aureus) infection (Resolved) NSVT (nonsustained ventricular tachycardia) (Resolved) Near syncope (Resolved) 1. Jaundice, unspecified etiology-patient's eyes do appear jaundice and it is a bilirubin of 4, alk phos also mildly elevated, AST ALT normal. CT of the abdomen does demonstrate mottling of the liver, right hepatic lobe cyst, nonobstructing 2 mm right renal calculus, diffuse gallbladder wall thickening, anasarca, small umbilical hernia, emphysema in the lungs and cardiomegaly. Lactic acid is elevated, unclear etiology. Reportedly fever of 102 at home, currently without a fever while here so far. Currently without leukocytosis. He has no abdominal pain and when I push on his abdomen there is no tenderness. At this time lipase is also normal. Will provide supportive care, blood cultures are pending, patient would benefit from an MRCP however we will have to check the compatibility of his ICD prior to being able to obtain this. Will obtain direct vs indirect bili. Dr. Echols did say that he would see the patient if consultation was necessary. 2.Systolic CHF, EF 15%, ischemic CM - no acute exacerbation. ICD in place. Does not appear volume overloaded. 3. CAD with prior stent 4. Amphetamine abuse - check drug tox screen, multiple positive tests recently 5. Iron def anemia - not significantly below baseline, trend 6. COPD/Emphysemia with nicotine abuse and chronic hypoxic respiratory failure - stable. prn aerosols, IS. DVT ppx: lovenox This patient was seen by Scott Neumann PA-C under the supervision of Dr. Willson. <Dell Willson - Last Filed: 03/05/19 18:01> History of Present Illness The patient is a 58 year old M [] Past Medical History Medical History: Medical History (Last Updated 11/23/18 @ 18:10 by Julián Armenta DO) Atherosclerosis of coronary artery of [place] heart without angina pectoris (Chronic) I25.10 LEFT HEART ASSESSMENT Left Ventricular Ejection Fraction: by LV Gram 10-15 % Global Hypokinesis - Severe Depressed Left Ventricular systolic function Normal Left Ventricular End Diastolic Pressure LEFT MAIN: Non-obstructive LEFT ANTERIOR DECENDING ARTERY: Previously placed stent is patent DIAGONAL 1: Ostial - Mild luminal irregularities less than 30% DIAGONAL 2: Proximal - Non-obstructive CIRCUMFLEX ARTERY: MID CIRC: Previously placed stent is patent RIGHT CORONARY ARTERY: MID RCA: Previously placed stent has instent 20 % restenosis with a new at distal edge of stent Acute respiratory failure with hypoxemia (Resolved) J96.01 Iron deficiency anemia (Chronic) D50.9 COPD (chronic obstructive pulmonary disease) (Chronic) J44.9 Tobacco abuse (Chronic) Z72.0 Medical non-compliance (Chronic) Z91.19 Ischemic cardiomyopathy (Chronic) I25.5 Acute on chronic systolic (congestive) heart failure I50.23 Restless leg syndrome G25.81 Acute bronchitis (Resolved) J20.9 COPD exacerbation (Resolved) J44.1 Recent discharge 12/14/17 following treatment for acute on chronic systolic CHF exacerbation, acute COPD exacerbation with acute hypoxic respiratory failure and MRSA HCAP PNA. HCAP (healthcare-associated pneumonia) (Resolved) J18.9 Recent discharge 12/14/17 following treatment for acute on chronic systolic CHF exacerbation, acute COPD exacerbation with acute hypoxic respiratory failure and MRSA HCAP PNA. Hypotension (Resolved) I95.9 MRSA (methicillin resistant Staphylococcus aureus) infection (Resolved) A49.02 Recent discharge 12/14/17 following treatment for acute on chronic systolic CHF exacerbation, acute COPD exacerbation with acute hypoxic respiratory failure and MRSA HCAP PNA. NSVT (nonsustained ventricular tachycardia) (Resolved) I47.2 Near syncope (Resolved) R55 Elevated troponin (Inactive) R74.8 Allergies No Known Allergies Allergy (Verified 03/05/19 11:25) Surgical History: Surgical History (Last Reviewed 09/27/18 @ 02:25 by Marcus Mi MD) ICD (implantable cardioverter-defibrillator) in place (Chronic) Z95.810 History of coronary artery stent placement (Chronic) Z95.5 PCI-RCA and CX History of coronary artery stent placement Z95.5 [id number] and Cx History of left heart catheterization Onset Date: 12/14/17 Z98.890 CORONARY ANGIOGRAPHY DOMINANCE: Right Dominant LEFT HEART ASSESSMENT Left Ventricular Ejection Fraction: by LV Gram 10-15 % Global Hypokinesis - Severe Depressed Left Ventricular systolic function Normal Left Ventricular End Diastolic Pressure LEFT MAIN: Non-obstructive LEFT ANTERIOR DECENDING ARTERY: Previously placed stent is patent DIAGONAL 1: Ostial - Mild luminal irregularities less than 30% DIAGONAL 2: Proximal - Non-obstructive CIRCUMFLEX ARTERY: MID CIRC: Previously placed stent is patent RIGHT CORONARY ARTERY: MID RCA: Previously placed stent has instent 20 % restenosis with a new at distal edge of stent - *Family History Maternal Family History: Family History (Last Reviewed 09/27/18 @ 02:26 by Marcus Mi MD) Father CAD (coronary artery disease) Heart disease Mother CAD (coronary artery disease) Heart disease Aunt Cancer Brother Heart disease Hypertension Paternal Family History: Family History (Last Reviewed 09/27/18 @ 02:26 by Marcus Mi MD) Father CAD (coronary artery disease) Heart disease Mother CAD (coronary artery disease) Heart disease Aunt Cancer Brother Heart disease Hypertension - Physical Exam Vital Signs Temp Pulse Resp BP Pulse Ox 98.8 F 99 23 H 145/91 H 93 03/05/19 17:39 03/05/19 17:39 03/05/19 17:39 03/05/19 17:39 03/05/19 17:39 Oxygen Flow Rate (L/min) 2 Oxygen Delivery Method Room Air Weight: 145 lb 11.609 oz Body Mass Index (BMI) 22.1 Finger Stick Blood Glucose 130 Laboratory Tests Past 24 Hrs 03/05/19 03/05/19 03/05/19 11:45 11:45 11:45 WBC 10.3 RBC 4.54 L Hgb 11.7 L Hct 35.5 L MCV 78.2 L MCH 25.8 L MCHC 33.0 RDW 17.5 H RDW Differential 49.8 H Plt Count 243 MPV 8.9 Immature Gran % (Auto) 0.200 Neut % (Auto) 79.5 H Lymph % (Auto) 11.5 L [place] % (Auto) 8.0 Eos % (Auto) 0.3 Baso % (Auto) 0.5 Absolute Neuts (auto) 8.2 H Absolute Lymphs (auto) 1.19 Total Counted Not Reportable PT 19.2 H INR 1.6 APTT 33.7 Sodium 129 L Potassium 4.6 Chloride 98 Carbon Dioxide 24.0 Anion Gap 7 BUN 18 Creatinine 0.93 Estim Creat Clear Calc 78.97 Est GFR (MDRD) Af Amer 107 Est GFR (MDRD) Non-Af 88 BUN/Creatinine Ratio 19.4 Glucose 130 H Lactic Acid Calcium 8.6 Total Bilirubin 2.40 H Direct Bilirubin AST 37 ALT 22 Alkaline Phosphatase 132 H Total Protein 7.2 Albumin 3.1 L Globulin 4.1 Albumin/Globulin Ratio 0.8 L Lipase 65 L Urine Color Urine Clarity Urine pH Ur Specific [place] Urine Protein Urine Glucose (UA) Urine Ketones Urine Occult Blood Urine Nitrite Urine Bilirubin Urine Urobilinogen Ur Leukocyte Esterase Urine RBC Urine WBC Ur Squamous Epith Cells Urine Bacteria Urine Mucus 03/05/19 03/05/19 03/05/19 11:45 11:45 12:10 WBC RBC Hgb Hct MCV MCH MCHC RDW RDW Differential Plt Count MPV Immature Gran % (Auto) Neut % (Auto) Lymph % (Auto) [place] % (Auto) Eos % (Auto) Baso % (Auto) Absolute Neuts (auto) Absolute Lymphs (auto) Total Counted PT INR APTT Sodium Potassium Chloride Carbon Dioxide Anion Gap BUN Creatinine Estim Creat Clear Calc Est GFR (MDRD) Af Amer Est GFR (MDRD) Non-Af BUN/Creatinine Ratio Glucose Lactic Acid 2.5 H Calcium Total Bilirubin Direct Bilirubin Pending AST ALT Alkaline Phosphatase Total Protein Albumin Globulin Albumin/Globulin Ratio Lipase Urine Color Yellow Urine Clarity Sl. Cloudy Urine pH 5.0 Ur Specific [place] 1.020 Urine Protein 100 H Urine Glucose (UA) Normal Urine Ketones 5 H Urine Occult Blood 25 H Urine Nitrite Negative Urine Bilirubin Negative Urine Urobilinogen Normal Ur Leukocyte Esterase 25 H Urine RBC 0-5 SEEN Urine WBC 0-5 SEEN Ur Squamous Epith Cells 0-5 SEEN Urine Bacteria 0 SEEN Urine Mucus 0 SEEN 03/05/19 17:00 WBC RBC Hgb Hct MCV MCH MCHC RDW RDW Differential Plt Count MPV Immature Gran % (Auto) Neut % (Auto) Lymph % (Auto) [place] % (Auto) Eos % (Auto) Baso % (Auto) Absolute Neuts (auto) Absolute Lymphs (auto) Total Counted PT INR APTT Sodium Potassium Chloride Carbon Dioxide Anion Gap BUN Creatinine Estim Creat Clear Calc Est GFR (MDRD) Af Amer Est GFR (MDRD) Non-Af BUN/Creatinine Ratio Glucose Lactic Acid 1.8 Calcium Total Bilirubin Direct Bilirubin AST ALT Alkaline Phosphatase Total Protein Albumin Globulin Albumin/Globulin Ratio Lipase Urine Color Urine Clarity Urine pH Ur Specific [place] Urine Protein Urine Glucose (UA) Urine Ketones Urine Occult Blood Urine Nitrite Urine Bilirubin Urine Urobilinogen Ur Leukocyte Esterase Urine RBC Urine WBC Ur Squamous Epith Cells Urine Bacteria Urine Mucus Code Visit Addendum: Dr. Willson I personally examined the patient and reviewed the chart. I agree with the above. 58-year-old male with significant past medical history for ischemic cardiomyopathy and an EF of 15%, and COPD who presents to the hospital with shoulder pain on the left. He denies any trauma or any injury that he remembers to that shoulder. And he describes it is more of an aching pain. He is found to be jaundiced on exam with a bilirubin of 2.4, normal AST/ALT and a slightly elevated alk phos. Will obtain an MRCP if compatible with his pacemaker to further evaluate the mottling of the liver and the elevation in his total bilirubin. Also direct bilirubin is pending for further evaluation. Given the findings with the liver it is possible that his shoulder pain could be referred pain from the liver, chest x-ray did note normal shoulders. He currently has no leukocytosis and is afebrile, will cautiously hydrate but will not start any antibiotics at the moment, blood cultures are pending. Inpatient E&M: 86404 Init Hosp L3
[2019-03-05 17:50] LABS: Lactic Acid 1.8 mmol/L (0.4-2.0)
[2019-03-05 18:00] LABS: Bilirubin, Direct 1.06 mg/dL (0.00-0.30)
[2019-03-05] MEDS: 0.9% Normal Saline 1,000 ML 125 ML IV (18:17)
[2019-03-05] MEDS: oxyCODONE 5 MG Tablet PO (18:44)
[2019-03-05 18:54] LABS: Amphetamine Urine VISTA POSITIVE (<1000 ng/mL); Barbiturate Urine VISTA NEGATIVE (< 200 ng/mL); Benzodiazepine Urine VISTA NEGATIVE (< 200 ng/mL); Cocaine Urine VISTA NEGATIVE (< 300 ng/mL); Ecstacy Urine VISTA NEGATIVE (< 500 ng/mL); Methadone Urine VISTA NEGATIVE (< 300 ng/mL); PCP Urine VISTA NEGATIVE (< 25 ng/mL); THC Urine VISTA NEGATIVE (< 50 ng/mL); Vista UDS pH Range 7
[2019-03-06] VITALS (7 sets, daily range): BP systolic 112–185; BP diastolic 78–95; PULSE 78–118; RESP 18–24; TEMP 36.4–37.2; O2SAT 94–100
[2019-03-06] MEDS: oxyCODONE 5 MG Tablet PO (01:30)
[2019-03-06] MEDS: 0.9% Normal Saline 1,000 ML 125 ML IV (01:31)
--- NOTE | 2019-03-06 05:55 | MRI_ITS ---
STUDY: MR CHOLANGIOPANCREATOGRAPHY (MRCP) REASON FOR EXAM: Male, 58 years old. Nausea and vomiting. TECHNIQUE: Standard MRCP technique was utilized. COMPARISON: CT dated 03/05/2019 FINDINGS: This study is significantly limited by patient motion. There are no gallstones or ductal stones identified. There is pericholecystic fluid noted. There is no intrahepatic or extrahepatic biliary duct dilatation. There are simple cysts noted in the liver. The liver is otherwise unremarkable. The spleen, pancreas, adrenal glands and kidneys are normal in contour and signal intensity. The visualized bowel demonstrates no evidence of obstruction. The aorta is normal in caliber. MRI/MRCP Abdomen without Contrast IMPRESSION: Significantly limited study. No gallstones or ductal stones identified. No intrahepatic or extrahepatic biliary duct dilatation. Pericholecystic fluid. If indicated, further evaluation with ultrasound or nuclear medicine hepatobiliary study can be performed. Electronically Signed: Edgar Jackman, at 18:33 EDT Tel , Service support ,
[2019-03-06 06:04] LABS: Absolute Lymphocyte Count 1.14 X10^3/ul (0.83-4.51); Absolute Neutrophil Count 6.1 X10^3/uL (2.0-7.7); Basophil# 0.04 X10^3/uL; Basophil% 0.5 % (0-1); Eosinophil# 0.06 X10^3/uL; Eosinophils% 0.8 % (0-5); Hematocrit 36.3 % (40-54); Hemoglobin 11.8 g/dl (13.0-16.5); Lymphocyte # 1.14 X10^3/ul (4.0); Lymphocyte % 14.3 % (19-41); Mean Corp Hgb Conc 32.5 g/gl (32-36); Mean Corpuscular Hgb 25.9 pg (27.0-32.0); Mean Corpuscular Volume 79.6 fL (80-94); Mean Platelet Vol. 8.6 fl (6.2-12.0); Monocyte# 0.64 X10^3/uL; Neutrophil # 6.09 X10^3/uL (2.7-7.7); Platelet Count 227 K/mm3 (150-450); RBC Distribution Width CV 17.9 % (11.6-14.6); RBC Distribution Width SD 51.1 fl (35.1-43.9); Red Blood Count 4.56 M/mm3 (4.6-6.2)
[2019-03-06 06:11] LABS: POSITIVE COUNT NO; POSITIVE DIFFERENTIAL NO; POSITIVE MORPHOLOGY NO
[2019-03-06 06:28] LABS: ALB/GLOB Ratio 0.6 RATIO (0.9-2.4); AST(SGOT) 45 U/L (15-37); Alanine Aminotransfer ALT/SGPT 26 U/L (16-61); Albumin, Serum 2.7 g/dL (3.2-5.0); Alkaline Phosphatase 124 U/L (45-117); Anion Gap 11 (5-15); BUN 17 mg/dL (7-18); BUN/Creat Ratio 18.8 RATIO (10-20); Calcium,Total 7.9 mg/dL (8.5-10.1); Chloride 101 mmol/L (98-107); EST Glomerular Filtration Rate 91 mL/min (>60); Est Glom Filt Rate - Afr Amer 110 mL/min (>60); Estimated Creatinine Clearance 76.72 ml/min; Globulin 4.2 g/dL (2.2-4.2); Glucose 133 mg/dL (74-106); Potassium 4.4 mmol/L (3.5-5.1); Protein, Total 6.9 g/dL (6.4-8.2); Sodium Level 133 mmol/L (136-145)
[2019-03-06 08:38] LABS: Erythrocyte Sedimentation Rate 48 mm/hr (0-20)
[2019-03-06 09:11] LABS: Ferritin 171 ng/mL (26-388)
[2019-03-06] MEDS: Enoxaparin 40 MG/0.4 ML Syringe SC (09:18)
--- NOTE | 2019-03-06 10:02 | PCM.PN.HOSP ---
Patient Problems: Active and Suspected Problems (Last Updated 11/23/18 @ 18:10 by Julián Armenta DO) Unspecified jaundice (Acute) Lactic acidosis (Acute) Sinus tachycardia by electrocardiogram (Acute) Dyspnea (Acute) Leukocytosis (Acute) Hyponatremia (Acute) History of ischemic cardiomyopathy (Acute) Unintentional weight loss (Acute) Subjective: Patient seen and examined. He was admitted with a complaint of fever of 102 as well as left shoulder and left arm pain. He was arrested nausea and vomiting but no diarrhea. He was noted to have elevated liver enzymes on admission. He has been managed for elevated liver enzymes of unclear etiology. Patient seen this morning. He said pain was no in his right shoulder inside of his left shoulder when he was admitted. 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 He states he was told he had a particular type of arthritis but he does not remember the name of it but just knows that his hands go very stiff and affects his shoulders sometimes in his knee sometimes. He has a history of remote use of IV drugs and states he was tested for hepatitis C in [place] prior to him moving here and was negative. He denies any fever chills now and denies any chest pain, palpitations, dizziness, cough, diarrhea or vomiting. He was admitted about a month ago for acute exacerbation of heart failure with reduced ejection fraction. He has an ICD in place and has a known EF of about 15%. Labs and vitals reviewed. Vitals/I&O's: Vital Signs Temp Pulse Resp BP Pulse Ox 98.2 F 78 18 121/85 H 100 03/06/19 09:00 03/06/19 09:00 03/06/19 09:00 03/06/19 09:00 03/06/19 09:00 Oxygen Flow Rate (L/min) 2 Oxygen Delivery Method Room Air Weight: 137 lb Body Mass Index (BMI) 20.8 Finger Stick Blood Glucose 130 Intake and Output for Last 24 Hours 03/04/19 03/05/19 03/06/19 23:59 23:59 23:59 Intake Total 1240 / 1240 4 / 1953 Output Total 225 / 225 Balance 1240 / 1240 1729 / 1729 General: Alert, Oriented x3, Cooperative, No apparent distress, - - tinge of jaundice in sclera HEENT: Atraumatic, PERRLA, EOMI, Normocephalic Oral: Moist Mucosa Neck: Supple, No JVD, Negative Carotid Bruits Lungs: Clear to auscultation, Normal air movement, No rhonchi, No wheeze, No rales Cardiovascular: Regular rate, Regular Rhythm, Normal S1, Normal S2, No murmurs Abdomen: Bowel Sounds Present, Soft, Non Tender, Non-Distended, No Hepato-splenomegaly Extremities: No clubbing, No cyanosis, No edema, Capillary Refill Less than 3 Seconds Musculoskeletal: - - has significant tenderness on palpation of right shoulder; unable to elevate his right shoulder over his head; cannot adduct or abduct right shoulder due to pain Neurological: Cranial nerves II-XII grossly intact Psych/Mental Status: Normal Affect, Appropriate, Alert and oriented to time, place, person, mood and affect Laboratory Results 03/05/19 11:45: WBC 10.3, RBC 4.54 L, Hgb 11.7 L, Hct 35.5 L, MCV 78.2 L, MCH 25.8 L, MCHC 33.0, RDW 17.5 H, RDW Differential 49.8 H, Plt Count 243, MPV 8.9, Immature Gran % (Auto) 0.200, Neut % (Auto) 79.5 H, Lymph % (Auto) 11.5 L, [place] % (Auto) 8.0, Eos % (Auto) 0.3, Baso % (Auto) 0.5, Absolute Neuts (auto) 8.2 H, Absolute Lymphs (auto) 1.19, Total Counted Not Reportable 03/05/19 11:45: PT 19.2 H, INR 1.6, APTT 33.7 03/05/19 11:45: Sodium 129 L, Potassium 4.6, Chloride 98, Carbon Dioxide 24.0, Anion Gap 7, BUN 18, Creatinine 0.93, Estim Creat Clear Calc 78.97, Est GFR (MDRD) Af Amer 107, Est GFR (MDRD) Non-Af 88, BUN/Creatinine Ratio 19.4, Glucose 130 H, Calcium 8.6, Total Bilirubin 2.40 H, AST 37, ALT 22, Alkaline Phosphatase 132 H, Total Protein 7.2, Albumin 3.1 L, Globulin 4.1, Albumin/Globulin Ratio 0.8 L, Lipase 65 L 03/05/19 11:45: Lactic Acid 2.5 H 03/05/19 11:45: Direct Bilirubin 1.06 H 03/05/19 12:10: Urine Color Yellow, Urine Clarity Sl. Cloudy, Urine pH 5.0, Ur Specific [place] 1.020, Urine Protein 100 H, Urine Glucose (UA) Normal, Urine Ketones 5 H, Urine Occult Blood 25 H, Urine Nitrite Negative, Urine Bilirubin Negative, Urine Urobilinogen Normal, Ur Leukocyte Esterase 25 H, Urine RBC 0-5 SEEN, Urine WBC 0-5 SEEN, Ur Squamous Epith Cells 0-5 SEEN, Urine Bacteria 0 SEEN, Urine Mucus 0 SEEN 03/05/19 12:10: Urine Opiates Screen NEGATIVE, Urine Methadone Screen NEGATIVE, Ur Barbiturates Screen NEGATIVE, Ur Phencyclidine Scrn NEGATIVE, Ur Amphetamines Screen POSITIVE H, U Methamphetamin-MDMA NEGATIVE, U Benzodiazepines Scrn NEGATIVE, Urine Cocaine Screen NEGATIVE, U Cannabinoids Screen NEGATIVE, Ur Drug Screen Comment 03/05/19 17:00: Lactic Acid 1.8 03/06/19 05:45: WBC 8.0, RBC 4.56 L, Hgb 11.8 L, Hct 36.3 L, MCV 79.6 L, MCH 25.9 L, MCHC 32.5, RDW 17.9 H, RDW Differential 51.1 H, Plt Count 227, MPV 8.6, Immature Gran % (Auto) 0.400, Neut % (Auto) 76.0 H, Lymph % (Auto) 14.3 L, [place] % (Auto) 8.0, Eos % (Auto) 0.8, Baso % (Auto) 0.5, Absolute Neuts (auto) 6.1, Absolute Lymphs (auto) 1.14, Total Counted Not Reportable 03/06/19 05:45: Sodium 133 L, Potassium 4.4, Chloride 101, Carbon Dioxide 21.0, Anion Gap 11, BUN 17, Creatinine 0.90, Estim Creat Clear Calc 76.72, Est GFR (MDRD) Af Amer 110, Est GFR (MDRD) Non-Af 91, BUN/Creatinine Ratio 18.8, Glucose 133 H, Calcium 7.9 L, Total Bilirubin 1.70 H, AST 45 H, ALT 26, Alkaline Phosphatase 124 H, Total Protein 6.9, Albumin 2.7 L, Globulin 4.2, Albumin/Globulin Ratio 0.6 L 03/06/19 05:45: ESR 48 H 03/06/19 05:45: C-React Prot Ext Range 98.10 H 03/06/19 05:45: Ferritin 171 03/06/19 05:45: Rheumatoid Factor 38.0 H 03/06/19 09:15: Transferrin Pending 03/06/19 09:15: Hepatitis A IgM Ab Pending, Hep Bs Antigen Pending, Hep B Core IgM Ab Pending, Hepatitis C Ab (EIA) Pending 03/06/19 09:15: MELY Screen Pending, ADIA-1 Antibody Pending, SS-A/Ro IgG Antibody Pending, SS-B/La IgG Antibody Pending, Sm (Jarrett) Antibody Pending, GINNER HELPER Antibody Pending, Scl-70 Scleroderma Ab Pending, Double Strand DNA Ab Pending, Centromere B Antibody Pending Current Medications Acetaminophen (Tylenol) 650 mg PO Q6H PRN PRN PRN Reason: PAIN Enoxaparin Sodium (Lovenox) 40 mg SC DAILY@1000 SHELL Last Admin: 03/06/19 09:18 Dose: 40 mg Sodium Chloride () 250 mls @ 15 mls/hr IV .[id number] PRN PRN Reason: SALINE FLUSH Morphine Sulfate () 1 mg IV Q3H PRN PRN PRN Reason: SEVERE PAIN (6-10/10) Oxycodone HCl (Oxyir) 5 mg PO Q6H PRN PRN PRN Reason: SEVERE PAIN (6-10/10) Last Admin: 03/06/19 01:30 Dose: 5 mg Sodium Chloride () 5 - 15 ml IV UD PRN PRN Reason: SALINE FLUSH Medical Necessity - Tobacco Use Smoking Status: Current every day smoker Tobacco Use: Cigarettes Assessment/Plan All Active Problems (Last Updated 11/23/18 @ 18:10 by Julián Armenta DO) Unspecified jaundice (Acute) Lactic acidosis (Acute) Sinus tachycardia by electrocardiogram (Acute) Dyspnea (Acute) Leukocytosis (Acute) Hyponatremia (Acute) History of ischemic cardiomyopathy (Acute) Unintentional weight loss (Acute) Acute respiratory failure with hypoxia (Acute) Septic shock (Resolved) Severe sepsis (Resolved) Septic shock (Ruled-out) COPD with acute exacerbation (Acute) Acute respiratory failure with hypoxemia (Resolved) Acute bronchitis (Resolved) COPD exacerbation (Resolved) HCAP (healthcare-associated pneumonia) (Resolved) Hypotension (Resolved) MRSA (methicillin resistant Staphylococcus aureus) infection (Resolved) NSVT (nonsustained ventricular tachycardia) (Resolved) Near syncope (Resolved) 1. Migratory polyarthritis of unclear etiology patient complains of severe right shoulder pain. Pain was in his left shoulder on admission yesterday patient sys he has had frequent severe pain and stiffness in his joints; it variously affects shoulders, knees and MCP joints; he was adamant the PIP and DIP joints are not affected he presented yesterday because of the left shoulder pain. ESR and CRP checked this morning- CRP elevated at 98.1; ESR only marginally elevated at 48 he denies any rash, any insect bite, and moved here from [place] will get xray of right shoulder will check rheumatoid factor- it was elevated at 38, Rheumatologic panel pending check Hepatitis panel due to history of IV drug use; check rheumatologic panel ferritin not elevated; transferrin is pending. 2. elevated liver enzymes of unclear etiology total bilirubin was 2.4 on admisison, and is down to 1.7 today; was mainly a direct bilirubinemia. AST was only slightly elevated today at 45; ALP is 124, from 132 yesterday he denied any use of tylenol or over the counter pain meds; says he only takes aspirin as that is what his doctor told him to take. also denies any herbal supplementation use. 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 Hyponatremia: Na was 129, is up to 13 today. Will dc IVF o/a of EF of 15%. 4. HFrEF: EF of 15%, with ICD in place. stable, not SOB. will monitor. On p.o. Lasix 40 mg twice daily and Imdur as well as losartan 5. CAD s/p stents: stable. On aspirin, statin, Plavix and carvedilol. 6. History of amphetamine abuse: stable. Urine tox was positive for amphetamines 7. Iron deficiency anemia: Hb is ~ 11. stable; this is around his baseline 8. COPD and emphysema: Stable. On breathing treatments. Insulin sliding scale. DVT prophylaxis: Lovenox Code Visit Inpatient E&M: 31873 Subs Hosp L3
--- NOTE | 2019-03-06 10:12 | PN_ITS ---
Patient Problems: Active and Suspected Problems (Last Updated 11/23/18 @ 18:10 by Julián Armenta DO) Unspecified jaundice (Acute) Lactic acidosis (Acute) Sinus tachycardia by electrocardiogram (Acute) Dyspnea (Acute) Leukocytosis (Acute) Hyponatremia (Acute) History of ischemic cardiomyopathy (Acute) Unintentional weight loss (Acute) Subjective: Patient seen and examined. He was admitted with a complaint of fever of 102 as well as left shoulder and left arm pain. He was arrested nausea and vomiting but no diarrhea. He was noted to have elevated liver enzymes on admission. He has been managed for elevated liver enzymes of unclear etiology. Patient seen this morning. He said pain was no in his right shoulder inside of his left shoulder when he was admitted. 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 He states he was told he had a particular type of arthritis but he does not remember the name of it but just knows that his hands go very stiff and affects his shoulders sometimes in his knee sometimes. He has a history of remote use of IV drugs and states he was tested for hepatitis C in [place] prior to him moving here and was negative. He denies any fever chills now and denies any chest pain, palpitations, dizziness, cough, diarrhea or vomiting. He was admitted about a month ago for acute exacerbation of heart failure with reduced ejection fraction. He has an ICD in place and has a known EF of about 15%. Labs and vitals reviewed. Vitals/I&O's: Vital Signs Temp Pulse Resp BP Pulse Ox 98.2 F 78 18 121/85 H 100 03/06/19 09:00 03/06/19 09:00 03/06/19 09:00 03/06/19 09:00 03/06/19 09:00 Oxygen Flow Rate (L/min) 2 Oxygen Delivery Method Room Air Weight: 137 lb Body Mass Index (BMI) 20.8 Finger Stick Blood Glucose 130 Intake and Output for Last 24 Hours 03/04/19 03/05/19 03/06/19 23:59 23:59 23:59 Intake Total 1240 / 1240 4 / 1953 Output Total 225 / 225 Balance 1240 / 1240 1729 / 1729 General: Alert, Oriented x3, Cooperative, No apparent distress, - - tinge of jaundice in sclera HEENT: Atraumatic, PERRLA, EOMI, Normocephalic Oral: Moist Mucosa Neck: Supple, No JVD, Negative Carotid Bruits Lungs: Clear to auscultation, Normal air movement, No rhonchi, No wheeze, No rales Cardiovascular: Regular rate, Regular Rhythm, Normal S1, Normal S2, No murmurs Abdomen: Bowel Sounds Present, Soft, Non Tender, Non-Distended, No Hepato- splenomegaly Extremities: No clubbing, No cyanosis, No edema, Capillary Refill Less than 3 Seconds Musculoskeletal: - - has significant tenderness on palpation of right shoulder; unable to elevate his right shoulder over his head; cannot adduct or abduct right shoulder due to pain Neurological: Cranial nerves II-XII grossly intact Psych/Mental Status: Normal Affect, Appropriate, Alert and oriented to time, place, person, mood and affect Laboratory Results 03/05/19 11:45: WBC 10.3, RBC 4.54 L, Hgb 11.7 L, Hct 35.5 L, MCV 78.2 L, MCH 25.8 L, MCHC 33.0, RDW 17.5 H, RDW Differential 49.8 H, Plt Count 243, MPV 8.9, Immature Gran % (Auto) 0.200, Neut % (Auto) 79.5 H, Lymph % (Auto) 11.5 L, [place] % (Auto) 8.0, Eos % (Auto) 0.3, Baso % (Auto) 0.5, Absolute Neuts (auto) 8.2 H, Absolute Lymphs (auto) 1.19, Total Counted Not Reportable 03/05/19 11:45: PT 19.2 H, INR 1.6, APTT 33.7 03/05/19 11:45: Sodium 129 L, Potassium 4.6, Chloride 98, Carbon Dioxide 24.0, Anion Gap 7, BUN 18, Creatinine 0.93, Estim Creat Clear Calc 78.97, Est GFR (MDRD) Af Amer 107, Est GFR (MDRD) Non-Af 88, BUN/Creatinine Ratio 19.4, Glucose 130 H, Calcium 8.6, Total Bilirubin 2.40 H, AST 37, ALT 22, Alkaline Phosphatase 132 H, Total Protein 7.2, Albumin 3.1 L, Globulin 4.1, Albumin/Globulin Ratio 0.8 L, Lipase 65 L 03/05/19 11:45: Lactic Acid 2.5 H 03/05/19 11:45: Direct Bilirubin 1.06 H 03/05/19 12:10: Urine Color Yellow, Urine Clarity Sl. Cloudy, Urine pH 5.0, Ur Specific [place] 1.020, Urine Protein 100 H, Urine Glucose (UA) Normal, Urine Ketones 5 H, Urine Occult Blood 25 H, Urine Nitrite Negative, Urine Bilirubin Negative, Urine Urobilinogen Normal, Ur Leukocyte Esterase 25 H, Urine RBC 0-5 SEEN, Urine WBC 0-5 SEEN, Ur Squamous Epith Cells 0-5 SEEN, Urine Bacteria 0 SEEN, Urine Mucus 0 SEEN 03/05/19 12:10: Urine Opiates Screen NEGATIVE, Urine Methadone Screen NEGATIVE, Ur Barbiturates Screen NEGATIVE, Ur Phencyclidine Scrn NEGATIVE, Ur Amphetamines Screen POSITIVE H, U Methamphetamin-MDMA NEGATIVE, U Benzodiazepines Scrn NEGATIVE, Urine Cocaine Screen NEGATIVE, U Cannabinoids Screen NEGATIVE, Ur Drug Screen Comment 03/05/19 17:00: Lactic Acid 1.8 03/06/19 05:45: WBC 8.0, RBC 4.56 L, Hgb 11.8 L, Hct 36.3 L, MCV 79.6 L, MCH 25.9 L, MCHC 32.5, RDW 17.9 H, RDW Differential 51.1 H, Plt Count 227, MPV 8.6, Immature Gran % (Auto) 0.400, Neut % (Auto) 76.0 H, Lymph % (Auto) 14.3 L, [place] % (Auto) 8.0, Eos % (Auto) 0.8, Baso % (Auto) 0.5, Absolute Neuts (auto) 6.1, Absolute Lymphs (auto) 1.14, Total Counted Not Reportable 03/06/19 05:45: Sodium 133 L, Potassium 4.4, Chloride 101, Carbon Dioxide 21.0, Anion Gap 11, BUN 17, Creatinine 0.90, Estim Creat Clear Calc 76.72, Est GFR (MDRD) Af Amer 110, Est GFR (MDRD) Non-Af 91, BUN/Creatinine Ratio 18.8, Glucose 133 H, Calcium 7.9 L, Total Bilirubin 1.70 H, AST 45 H, ALT 26, Alkaline Phosphatase 124 H, Total Protein 6.9, Albumin 2.7 L, Globulin 4.2, Albumin/Globulin Ratio 0.6 L 03/06/19 05:45: ESR 48 H 03/06/19 05:45: C-React Prot Ext Range 98.10 H 03/06/19 05:45: Ferritin 171 03/06/19 05:45: Rheumatoid Factor 38.0 H 03/06/19 09:15: Transferrin Pending 03/06/19 09:15: Hepatitis A IgM Ab Pending, Hep Bs Antigen Pending, Hep B Core IgM Ab Pending, Hepatitis C Ab (EIA) Pending 03/06/19 09:15: MELY Screen Pending, ADIA-1 Antibody Pending, SS-A/Ro IgG Antibody Pending, SS-B/La IgG Antibody Pending, Sm (Jarrett) Antibody Pending, THIRD OFFICER Antibody Pending, Scl-70 Scleroderma Ab Pending, Double Strand DNA Ab Pending, Centromere B Antibody Pending Current Medications Acetaminophen (Tylenol) 650 mg PO Q6H PRN PRN PRN Reason: PAIN Enoxaparin Sodium (Lovenox) 40 mg SC DAILY@1000 SHELL Last Admin: 03/06/19 09:18 Dose: 40 mg Sodium Chloride () 250 mls @ 15 mls/hr IV .[id number] PRN PRN Reason: SALINE FLUSH Morphine Sulfate () 1 mg IV Q3H PRN PRN PRN Reason: SEVERE PAIN (6-10/10) Oxycodone HCl (Oxyir) 5 mg PO Q6H PRN PRN PRN Reason: SEVERE PAIN (6-10/10) Last Admin: 03/06/19 01:30 Dose: 5 mg Sodium Chloride () 5 - 15 ml IV UD PRN PRN Reason: SALINE FLUSH Medical Necessity - Tobacco Use Smoking Status: Current every day smoker Tobacco Use: Cigarettes Assessment/Plan All Active Problems (Last Updated 11/23/18 @ 18:10 by Julián Armenta DO) Unspecified jaundice (Acute) Lactic acidosis (Acute) Sinus tachycardia by electrocardiogram (Acute) Dyspnea (Acute) Leukocytosis (Acute) Hyponatremia (Acute) History of ischemic cardiomyopathy (Acute) Unintentional weight loss (Acute) Acute respiratory failure with hypoxia (Acute) Septic shock (Resolved) Severe sepsis (Resolved) Septic shock (Ruled-out) COPD with acute exacerbation (Acute) Acute respiratory failure with hypoxemia (Resolved) Acute bronchitis (Resolved) COPD exacerbation (Resolved) HCAP (healthcare-associated pneumonia) (Resolved) Hypotension (Resolved) MRSA (methicillin resistant Staphylococcus aureus) infection (Resolved) NSVT (nonsustained ventricular tachycardia) (Resolved) Near syncope (Resolved) 1. Migratory polyarthritis of unclear etiology * patient complains of severe right shoulder pain. Pain was in his left shoulder on admission yesterday * patient sys he has had frequent severe pain and stiffness in his joints; it variously affects shoulders, knees and MCP joints; he was adamant the PIP and DIP joints are not affected * he presented yesterday because of the left shoulder pain. * ESR and CRP checked this morning- CRP elevated at 98.1; ESR only marginally elevated at 48 * he denies any rash, any insect bite, and moved here from [place] * will get xray of right shoulder * will check rheumatoid factor- it was elevated at 38, Rheumatologic panel pending * check Hepatitis panel due to history of IV drug use; check rheumatologic panel * ferritin not elevated; transferrin is pending. * 2. elevated liver enzymes of unclear etiology * total bilirubin was 2.4 on admisison, and is down to 1.7 today; was mainly a direct bilirubinemia. AST was only slightly elevated today at 45; ALP is 124, from 132 yesterday * he denied any use of tylenol or over the counter pain meds; says he only takes aspirin as that is what his doctor told him to take. also denies any herbal supplementation use. 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 Hyponatremia: Na was 129, is up to 13 today. Will dc IVF o/a of EF of 15%. 4. HFrEF: EF of 15%, with ICD in place. stable, not SOB. will monitor. On p.o. Lasix 40 mg twice daily and Imdur as well as losartan 5. CAD s/p stents: stable. On aspirin, statin, Plavix and carvedilol. 6. History of amphetamine abuse: stable. Urine tox was positive for amphetamines 7. Iron deficiency anemia: Hb is ~ 11. stable; this is around his baseline 8. COPD and emphysema: Stable. On breathing treatments. Insulin sliding scale. DVT prophylaxis: Lovenox Code Visit Inpatient E&M: [id number] Subs Hosp L3
--- NOTE | 2019-03-06 10:30 | RAD_ITS ---
STUDY: X-RAY - RIGHT SHOULDER REASON FOR EXAM: Male, 58 years old. Pain. TECHNIQUE: 4 view(s) of the shoulder. COMPARISON: None. FINDINGS: There is mild degenerative arthrosis of the glenohumeral articulation. There is degenerative arthrosis of the acromioclavicular joint without inferior osseous spur formation. Normal acromion. Normal humeral head and visualized proximal humerus. The soft tissue structures are unremarkable. Normal visualized pulmonary apex. RAD/Shoulder min 2 Views IMPRESSION: Degenerative changes. Electronically Signed: Darrick Coreas, at 14:14 EDT , Service support ,
--- NOTE | 2019-03-06 13:17 | CASEMGMT ---
Readmission chart review: Pt was initially admitted 02/02/19 for Respiratory failure/COPD. See assessment completed by Damon GARLAND CM on 02/03/19. Appt was made for pt with Dr. Davis for new pt visit on 02/21/19 and pt was a no show. Pt has been a no show at all appt's set up with [facility] physicians for the last year which totals 7 appts including PCP, cardiology, and pulmonary medicine. Pt has an ICD in placed and known EF 15% from hospitalist note. Pt was admitted 03/05/19 for N/V/abd pain and reported fever. CM to follow for discharge planning/needs. Moe GARLAND CM
--- NOTE | 2019-03-06 13:33 | CASEMGMT ---
SW completed a Palliative care assessment for patient. He scored a 4 which indicates he would be a candidate for Palliative Care. However, patient is not established with a PCP as he consistently no shows for appointments. He has to be established with a primary care doctor before Palliative Care would get involved. Patient states transportation is an issue. However, he has been given transportation resources numerous times and has not used them. Nicolasa GUILLAUME MSW
[2019-03-06] MEDS: LORazepam 2 MG/ML Syringe IV (14:01)
[2019-03-06] MEDS: hydrOXYzine PAM 25 MG Capsule PO (22:40)
[2019-03-06] MEDS: Carvedilol 6.25 MG Tablet PO (22:40)
[2019-03-06] MEDS: Albuterol 2.5 MG/3 ML VIAL.NEB. INHALATION (23:14)
[2019-03-07] VITALS (7 sets, daily range): BP systolic 108–130; BP diastolic 66–94; PULSE 80–95; RESP 16–18; TEMP 36.4–37.1; O2SAT 98–100
[2019-03-07 05:06] LABS: HEPATITIS B SURFACE AG Negative (Negative); Hepatitis A IgM Antibody Negative (Negative); Hepatitis B Core AB IgM Negative (Negative)
[2019-03-07] MEDS: oxyCODONE 5 MG Tablet PO (05:57)
[2019-03-07 06:23] LABS: Absolute Lymphocyte Count 1.69 X10^3/ul (0.83-4.51); Absolute Neutrophil Count 8.1 X10^3/uL (2.0-7.7); Basophil# 0.05 X10^3/uL; Basophil% 0.5 % (0-1); Eosinophil# 0.08 X10^3/uL; Eosinophils% 0.8 % (0-5); Hematocrit 36.3 % (40-54); Hemoglobin 11.4 g/dl (13.0-16.5); Lymphocyte # 1.69 X10^3/ul (4.0); Lymphocyte % 16.1 % (19-41); Mean Corp Hgb Conc 31.4 g/gl (32-36); Mean Corpuscular Hgb 25.4 pg (27.0-32.0); Mean Corpuscular Volume 80.8 fL (80-94); Mean Platelet Vol. 9.3 fl (6.2-12.0); Monocyte# 0.53 X10^3/uL; Neutrophil # 8.12 X10^3/uL (2.7-7.7); Neutrophil % 77.2 % (47-70); Platelet Count 232 K/mm3 (150-450); RBC Distribution Width CV 18.1 % (11.6-14.6); RBC Distribution Width SD 52.9 fl (35.1-43.9); Red Blood Count 4.49 M/mm3 (4.6-6.2); White Blood Count 10.5 K/mm3 (4.4-11.0)
[2019-03-07 06:24] LABS: POSITIVE COUNT NO; POSITIVE DIFFERENTIAL NO; POSITIVE MORPHOLOGY NO
[2019-03-07 06:36] LABS: ALB/GLOB Ratio 0.7 RATIO (0.9-2.4); AST(SGOT) 85 U/L (15-37); Alanine Aminotransfer ALT/SGPT 42 U/L (16-61); Albumin, Serum 2.7 g/dL (3.2-5.0); Alkaline Phosphatase 131 U/L (45-117); Anion Gap 14 (5-15); BUN 21 mg/dL (7-18); BUN/Creat Ratio 24.9 RATIO (10-20); Calcium,Total 8.2 mg/dL (8.5-10.1); Chloride 103 mmol/L (98-107); Creatinine, Serum 0.84 mg/dL (0.70-1.30); EST Glomerular Filtration Rate 98 mL/min (>60); Est Glom Filt Rate - Afr Amer 119 mL/min (>60); Globulin 3.8 g/dL (2.2-4.2); Glucose 79 mg/dL (74-106); Potassium 5.1 mmol/L (3.5-5.1); Protein, Total 6.5 g/dL (6.4-8.2); Sodium Level 135 mmol/L (136-145)
[2019-03-07] MEDS: Albuterol 2.5 MG/3 ML VIAL.NEB. INHALATION (08:11)
[2019-03-07] MEDS: Clopidogrel Bisulfate 75 MG Tablet PO (09:03)
[2019-03-07] MEDS: Carvedilol 6.25 MG Tablet PO ×2 (09:03→22:13)
[2019-03-07] MEDS: Ferrous Gluconate 324 MG Tablet PO ×2 (09:03→16:43)
[2019-03-07] MEDS: Isosorbide Mononitrate 30 MG Tablet PO (09:03)
[2019-03-07] MEDS: Aspirin E.C. 81 MG Tablet PO (09:03)
[2019-03-07] MEDS: Losartan Potassium 25 MG Tablet PO (09:03)
[2019-03-07] MEDS: Enoxaparin 40 MG/0.4 ML Syringe SC (09:05)
[2019-03-07 09:27] LABS: Bilirubin, Direct 0.55 mg/dL (0.00-0.30)
--- NOTE | 2019-03-07 09:41 | PCM.CONS.GEN ---
Reason for Consult Date of Consultation: 03/07/19 Reason for Consultation: Elevated liver functions, pericholecystic fluid History of Present Illness: The patient is a 58 year old M presented to the ER due to left shoulder pain initially. The patient states the pain was in the right shoulder. He denies any abdominal pain he also denied nausea and vomiting however when he asked again he did say he vomited last night however patient was quite somnolent during the entire meeting and keeps falling asleep in between questions and is not the best historian. Patient denies any history of previous abdominal pain. He did just finished eating his breakfast where he looks like he ate almost all of his eggs drink some chocolate milk currently who is denying any nausea or vomiting. Patient came in due to the elevated liver functions he did have a CT abdomen pelvis which question whether there is some gallbladder wall thickening, and some mottling of the liver however this may be due to the timing of contrast. Patient had an MRCP which did not show any gallstones only some pericholecystic fluid. Patient currently denies any symptoms of gallbladder disease right upper quadrant pain, nausea vomiting. Patient's white blood counts within normal range has a slight left shift this morning, patient's LFTs have increased. Till bili went from 1.9-2.7, AST is also around 84, ALT is normal and alk phos is also elevated. Patient states that he currently is not drinking any alcohol states he did a few years ago but unable to really tell me the date. States that he drank a lot on further questioning he said he drank beer 6 pack daily since the 80s. Patient denies any drugs and states he smokes about half a pack a day. Patient's brother is his POA. Patient also states that he does have brown urine. Past Medical History Past Medical History (Chronic Problems): Chronic Problems (Last Updated 11/23/18 @ 18:10 by Julián Armenta DO) Anemia, unspecified (Chronic) Amphetamine abuse (Chronic) Chronic respiratory failure with hypoxia (Chronic) Acute and chronic respiratory failure with hypoxia (Chronic) Acute on chronic systolic CHF (congestive heart failure) (Chronic) Systolic CHF (Chronic) Elevated troponin (Chronic) ICD (implantable cardioverter-defibrillator) in place (Chronic) History of coronary artery stent placement (Chronic) PCI-RCA and CX Atherosclerosis of coronary artery of ute heart without angina pectoris (Chronic) LEFT HEART ASSESSMENT Left Ventricular Ejection Fraction: by LV Gram 10-15 % Global Hypokinesis - Severe Depressed Left Ventricular systolic function Normal Left Ventricular End Diastolic Pressure LEFT MAIN: Non-obstructive LEFT ANTERIOR DECENDING ARTERY: Previously placed stent is patent DIAGONAL 1: Ostial - Mild luminal irregularities less than 30% DIAGONAL 2: Proximal - Non-obstructive CIRCUMFLEX ARTERY: MID CIRC: Previously placed stent is patent RIGHT CORONARY ARTERY: MID RCA: Previously placed stent has instent 20 % restenosis with a new at distal edge of stent Iron deficiency anemia (Chronic) COPD (chronic obstructive pulmonary disease) (Chronic) Tobacco abuse (Chronic) Medical non-compliance (Chronic) Ischemic cardiomyopathy (Chronic) Medical History: Medical History (Last Updated 11/23/18 @ 18:10 by Julián Armenta DO) Atherosclerosis of coronary artery of ute heart without angina pectoris (Chronic) I25.10 LEFT HEART ASSESSMENT Left Ventricular Ejection Fraction: by LV Gram 10-15 % Global Hypokinesis - Severe Depressed Left Ventricular systolic function Normal Left Ventricular End Diastolic Pressure LEFT MAIN: Non-obstructive LEFT ANTERIOR DECENDING ARTERY: Previously placed stent is patent DIAGONAL 1: Ostial - Mild luminal irregularities less than 30% DIAGONAL 2: Proximal - Non-obstructive CIRCUMFLEX ARTERY: MID CIRC: Previously placed stent is patent RIGHT CORONARY ARTERY: MID RCA: Previously placed stent has instent 20 % restenosis with a new at distal edge of stent Acute respiratory failure with hypoxemia (Resolved) J96.01 Iron deficiency anemia (Chronic) D50.9 COPD (chronic obstructive pulmonary disease) (Chronic) J44.9 Tobacco abuse (Chronic) Z72.0 Medical non-compliance (Chronic) Z91.19 Ischemic cardiomyopathy (Chronic) I25.5 Acute on chronic systolic (congestive) heart failure I50.23 Restless leg syndrome G25.81 Acute bronchitis (Resolved) J20.9 COPD exacerbation (Resolved) J44.1 Recent discharge 12/14/17 following treatment for acute on chronic systolic CHF exacerbation, acute COPD exacerbation with acute hypoxic respiratory failure and MRSA HCAP PNA. HCAP (healthcare-associated pneumonia) (Resolved) J18.9 Recent discharge 12/14/17 following treatment for acute on chronic systolic CHF exacerbation, acute COPD exacerbation with acute hypoxic respiratory failure and MRSA HCAP PNA. Hypotension (Resolved) I95.9 MRSA (methicillin resistant Staphylococcus aureus) infection (Resolved) A49.02 Recent discharge 12/14/17 following treatment for acute on chronic systolic CHF exacerbation, acute COPD exacerbation with acute hypoxic respiratory failure and MRSA HCAP PNA. NSVT (nonsustained ventricular tachycardia) (Resolved) I47.2 Near syncope (Resolved) R55 Elevated troponin (Inactive) R74.8 Allergies No Known Allergies Allergy (Verified 03/05/19 11:25) Home Medications: Ambulatory Orders Medication Instructions Recorded Nitroglycerin (INPATIENT USE) 0.4 mg SUBLINGUAL Q5M PRN #1 bottle 12/14/17 [Nitrostat] ferrous gluconate 324 mg (37.5 mg 325 mg PO BIDCM #60 tab 01/15/18 iron) tablet Albuterol Inhaler [Ventolin Hfa] 2 puff INHALATION Q4H PRN PRN #1 10/14/18 inhaler hydroxyzine pamoate 25 mg capsule 25 mg PO TID PRN PRN #30 cap 10/17/18 Naproxen [Naprosyn] 500 mg PO BID PRN #20 tablet 12/04/18 Aspirin [Low Dose Aspirin EC] 81 mg PO DAILY 03/05/19 Atorvastatin Calcium [Lipitor] 80 mg PO QHS 03/05/19 Carvedilol [Coreg (Beta Fletcher)] 6.25 mg PO BID 03/05/19 Clopidogrel Bisulfate [Plavix] 75 mg PO DAILY 03/05/19 Isosorbide Mononitrate [Imdur] 30 mg PO DAILY 03/05/19 Losartan Potassium [Cozaar] 25 mg PO DAILY 03/05/19 Potassium Chloride [K-Dur] 20 meq PO DAILY 03/05/19 furosemide 40 mg tablet 40 mg PO BID@1000,1800 #180 tab 03/06/19 Surgical History: Surgical History (Last Reviewed 09/27/18 @ 02:25 by Marcus Mi MD) ICD (implantable cardioverter-defibrillator) in place (Chronic) Z95.810 History of coronary artery stent placement (Chronic) Z95.5 PCI-RCA and CX History of coronary artery stent placement Z95.5 [id number] and Cx History of left heart catheterization Onset Date: 12/14/17 Z98.890 CORONARY ANGIOGRAPHY DOMINANCE: Right Dominant LEFT HEART ASSESSMENT Left Ventricular Ejection Fraction: by LV Gram 10-15 % Global Hypokinesis - Severe Depressed Left Ventricular systolic function Normal Left Ventricular End Diastolic Pressure LEFT MAIN: Non-obstructive LEFT ANTERIOR DECENDING ARTERY: Previously placed stent is patent DIAGONAL 1: Ostial - Mild luminal irregularities less than 30% DIAGONAL 2: Proximal - Non-obstructive CIRCUMFLEX ARTERY: MID CIRC: Previously placed stent is patent RIGHT CORONARY ARTERY: MID RCA: Previously placed stent has instent 20 % restenosis with a new at distal edge of stent Surgical History: - - PCI x 10-11. ICD placement Psychiatric History: No pertinent psych hx Lives: Friends Smoking Status: Current every day smoker Tobacco Use: Cigarettes Alcohol: None - Patient states history of a lot of alcohol in past since the 80s Drugs: None - *Family History Maternal Family History: Family History (Last Reviewed 09/27/18 @ 02:26 by Marcus Mi MD) Father CAD (coronary artery disease) Heart disease Mother CAD (coronary artery disease) Heart disease Aunt Cancer Brother Heart disease Hypertension History Items: Heart Disease Paternal Family History: Family History (Last Reviewed 09/27/18 @ 02:26 by Marcus Mi MD) Father CAD (coronary artery disease) Heart disease Mother CAD (coronary artery disease) Heart disease Aunt Cancer Brother Heart disease Hypertension History Items: Heart Disease Review of Systems Constitutional: Denies: Anorexia, Fever HEENT: Denies: Difficulty Swallowing Gastrointestinal: Denies: Abdominal Pain Patient Problems: Active and Suspected Problems (Last Updated 11/23/18 @ 18:10 by Julián Armenta DO) Unspecified jaundice (Acute) Lactic acidosis (Acute) Sinus tachycardia by electrocardiogram (Acute) Dyspnea (Acute) Leukocytosis (Acute) Hyponatremia (Acute) History of ischemic cardiomyopathy (Acute) Unintentional weight loss (Acute) - Physical Exam General: - - Somnolent, patient keeps falling at asleep between questions Lungs: Normal air movement Cardiovascular: Regular rate Abdomen: Soft, Passing Flatus, Distended - Mild, Tender - Left flank greater than right flank, no right upper quadrant or epigastric tenderness palpation, Hernia - Umbilical hernia, partially reducible Extremities: No clubbing, No cyanosis Neurological: Cranial nerves II-XII grossly intact Psych/Mental Status: - - Somnolent/lethargic?keeps falling asleep between questions and takes several times for the questions to be answered Vital Signs Temp Pulse Resp BP Pulse Ox 98.1 F 95 18 130/94 H 98 03/07/19 09:26 03/07/19 09:26 03/07/19 09:26 03/07/19 09:26 03/07/19 09:26 Oxygen Flow Rate (L/min) 2 Oxygen Delivery Method Room Air Weight: 136 lb 15.994 oz Body Mass Index (BMI) 20.8 Finger Stick Blood Glucose 130 Intake and Output for Last 24 Hours 03/05/19 03/06/19 03/07/19 23:59 23:59 23:59 Intake Total 1240 / 1240 2914 / 2914 120 / 120 Output Total 225 / 225 Balance 1240 / 1240 2689 / 2689 120 / 120 Laboratory Tests Past 24 Hrs 03/06/19 03/07/19 03/07/19 05:45 05:30 05:30 WBC 10.5 RBC 4.49 L Hgb 11.4 L Hct 36.3 L MCV 80.8 MCH 25.4 L MCHC 31.4 L RDW 18.1 H RDW Differential 52.9 H Plt Count 232 MPV 9.3 Immature Gran % (Auto) 0.400 Neut % (Auto) 77.2 H Lymph % (Auto) 16.1 L [place] % (Auto) 5.0 Eos % (Auto) 0.8 Baso % (Auto) 0.5 Absolute Neuts (auto) 8.1 H Absolute Lymphs (auto) 1.69 Total Counted Not Reportable Sodium 135 L Potassium 5.1 Chloride 103 Carbon Dioxide 18.0 L Anion Gap 14 BUN 21 H Creatinine 0.84 Estim Creat Clear Calc 82.20 Est GFR (MDRD) Af Amer 119 Est GFR (MDRD) Non-Af 98 BUN/Creatinine Ratio 24.9 H Glucose 79 Calcium 8.2 L Total Bilirubin 2.40 H Direct Bilirubin AST 85 H ALT 42 Alkaline Phosphatase 131 H Total Protein 6.5 Albumin 2.7 L Globulin 3.8 Albumin/Globulin Ratio 0.7 L Rheumatoid Factor 38.0 H 03/07/19 05:30 WBC RBC Hgb Hct MCV MCH MCHC RDW RDW Differential Plt Count MPV Immature Gran % (Auto) Neut % (Auto) Lymph % (Auto) [place] % (Auto) Eos % (Auto) Baso % (Auto) Absolute Neuts (auto) Absolute Lymphs (auto) Total Counted Sodium Potassium Chloride Carbon Dioxide Anion Gap BUN Creatinine Estim Creat Clear Calc Est GFR (MDRD) Af Amer Est GFR (MDRD) Non-Af BUN/Creatinine Ratio Glucose Calcium Total Bilirubin Direct Bilirubin 0.55 H AST ALT Alkaline Phosphatase Total Protein Albumin Globulin Albumin/Globulin Ratio Rheumatoid Factor Assessment/Plan All Active Problems (Last Updated 11/23/18 @ 18:10 by Julián Armenta DO) Unspecified jaundice (Acute) Lactic acidosis (Acute) Sinus tachycardia by electrocardiogram (Acute) Dyspnea (Acute) Leukocytosis (Acute) Hyponatremia (Acute) History of ischemic cardiomyopathy (Acute) Unintentional weight loss (Acute) Acute respiratory failure with hypoxia (Acute) Septic shock (Resolved) Severe sepsis (Resolved) Septic shock (Ruled-out) COPD with acute exacerbation (Acute) Acute respiratory failure with hypoxemia (Resolved) Acute bronchitis (Resolved) COPD exacerbation (Resolved) HCAP (healthcare-associated pneumonia) (Resolved) Hypotension (Resolved) MRSA (methicillin resistant Staphylococcus aureus) infection (Resolved) NSVT (nonsustained ventricular tachycardia) (Resolved) Near syncope (Resolved) 58-year-old male with elevated liver functions, history of alcohol abuse, congestive heart failure 1. Patient is currently tolerating regular diet denies any nausea vomiting or abdominal pain, on exam he does have a little bit of left flank pain greater than the right flank pain but no right upper quadrant pain- unsure source. It is also difficult to get history from the patient and he is quite somnolent and sure if this is just due to lack of sleep or again could be a sign of liver disease. Likely patient's pericholecystic fluid is due to liver disease which I do not believe has been diagnosed currently so would recommend patient be transferred somewhere with GI so he can proceed with appropriate work-up and treatment. Examination of liver disease or patient/heart failure could cause some pericholecystic fluid as patient has no symptoms of primary gallbladder disease. An MRCP did not show any obvious stones in the gallbladder or bile duct. Discussed with Dr. Barrios. Mayra Carbone M.D. Pager: [phone] [facility] [address] [place] [address], [facility], [address] [place] [id number] Office: [phone] Code Visit Inpatient E&M: 29739 Init Hosp L2
--- NOTE | 2019-03-07 09:49 | CON.PCM_ITS ---
Reason for Consult Date of Consultation: 03/07/19 Reason for Consultation: Elevated liver functions, pericholecystic fluid History of Present Illness: The patient is a 58 year old M presented to the ER due to left shoulder pain initially. The patient states the pain was in the right shoulder. He denies any abdominal pain he also denied nausea and vomiting however when he asked again he did say he vomited last night however patient was quite somnolent during the entire meeting and keeps falling asleep in between questions and is not the best historian. Patient denies any history of previous abdominal pain. He did just finished eating his breakfast where he looks like he ate almost all of his eggs drink some chocolate milk currently who is denying any nausea or vomiting. Patient came in due to the elevated liver functions he did have a CT abdomen pelvis which question whether there is some gallbladder wall thickening, and some mottling of the liver however this may be due to the timing of contrast. Patient had an MRCP which did not show any gallstones only some per icholecystic fluid. Patient currently denies any symptoms of gallbladder disease right upper quadrant pain, nausea vomiting. Patient's white blood counts within normal range has a slight left shift this morning, patient's LFTs have increased. Till bili went from 1.9-2.7, AST is also around 84, ALT is normal and alk phos is also elevated. Patient states that he currently is not drinking any alcohol states he did a few years ago but unable to really tell me the date. States that he drank a lot on further questioning he said he drank beer 6 pack daily since the 80s. Patient denies any drugs and states he smokes about half a pack a day. Patient's brother is his POA. Patient also states that he does have brown urine. Past Medical History Past Medical History (Chronic Problems): Chronic Problems (Last Updated 11/23/18 @ 18:10 by Julián Armenta DO) Anemia, unspecified (Chronic) Amphetamine abuse (Chronic) Chronic respiratory failure with hypoxia (Chronic) Acute and chronic respiratory failure with hypoxia (Chronic) Acute on chronic systolic CHF (congestive heart failure) (Chronic) Systolic CHF (Chronic) Elevated troponin (Chronic) ICD (implantable cardioverter-defibrillator) in place (Chronic) History of coronary artery stent placement (Chronic) PCI-RCA and CX Atherosclerosis of coronary artery of [place] heart without angina pectoris (Chronic) LEFT HEART ASSESSMENT Left Ventricular Ejection Fraction: by LV Gram 10-15 % Global Hypokinesis - Severe Depressed Left Ventricular systolic function Normal Left Ventricular End Diastolic Pressure LEFT MAIN: Non-obstructive LEFT ANTERIOR DECENDING ARTERY: Previously placed stent is patent DIAGONAL 1: Ostial - Mild luminal irregularities less than 30% DIAGONAL 2: Proximal - Non-obstructive CIRCUMFLEX ARTERY: MID CIRC: Previously placed stent is patent RIGHT CORONARY ARTERY: MID RCA: Previously placed stent has instent 20 % restenosis with a new at distal edge of stent Iron deficiency anemia (Chronic) COPD (chronic obstructive pulmonary disease) (Chronic) Tobacco abuse (Chronic) Medical non-compliance (Chronic) Ischemic cardiomyopathy (Chronic) Medical History: Medical History (Last Updated 11/23/18 @ 18:10 by Julián Armenta DO) Atherosclerosis of coronary artery of [place] heart without angina pectoris ([employer]) I25.10 LEFT HEART ASSESSMENT Left Ventricular Ejection Fraction: by LV Gram 10-15 % Global Hypokinesis - Severe Depressed Left Ventricular systolic function Normal Left Ventricular End Diastolic Pressure LEFT MAIN: Non-obstructive LEFT ANTERIOR DECENDING ARTERY: Previously placed stent is patent DIAGONAL 1: Ostial - Mild luminal irregularities less than 30% DIAGONAL 2: Proximal - Non-obstructive CIRCUMFLEX ARTERY: MID CIRC: Previously placed stent is patent RIGHT CORONARY ARTERY: MID RCA: Previously placed stent has instent 20 % restenosis with a new at distal edge of stent Acute respiratory failure with hypoxemia (Resolved) J96.01 Iron deficiency anemia (Chronic) D50.9 COPD (chronic obstructive pulmonary disease) (Chronic) J44.9 Tobacco abuse (Chronic) Z72.0 Medical non-compliance (Chronic) Z91.19 Ischemic cardiomyopathy (Chronic) I25.5 Acute on chronic systolic (congestive) heart failure I50.23 Restless leg syndrome G25.81 Acute bronchitis (Resolved) J20.9 COPD exacerbation (Resolved) J44.1 Recent discharge 12/14/17 following treatment for acute on chronic systolic CHF exacerbation, acute COPD exacerbation with acute hypoxic respiratory failure and MRSA HCAP PNA. HCAP (healthcare-associated pneumonia) (Resolved) J18.9 Recent discharge 12/14/17 following treatment for acute on chronic systolic CHF exacerbation, acute COPD exacerbation with acute hypoxic respiratory failure and MRSA HCAP PNA. Hypotension (Resolved) I95.9 MRSA (methicillin resistant Staphylococcus aureus) infection (Resolved) A49.02 Recent discharge 12/14/17 following treatment for acute on chronic systolic CHF exacerbation, acute COPD exacerbation with acute hypoxic respiratory failure and MRSA HCAP PNA. NSVT (nonsustained ventricular tachycardia) (Resolved) I47.2 Near syncope (Resolved) R55 Elevated troponin (Inactive) R74.8 Allergies No Known Allergies Allergy (Verified 03/05/19 11:25) Home Medications: Ambulatory Orders Medication Instructions Recorded Nitroglycerin (INPATIENT USE) 0.4 mg SUBLINGUAL Q5M PRN #1 bottle 12/14/17 [Nitrostat] ferrous gluconate 324 mg (37.5 mg 325 mg PO BIDCM #60 tab 01/15/18 iron) tablet Albuterol Inhaler [Ventolin Hfa] 2 puff INHALATION Q4H PRN PRN #1 10/14/18 inhaler hydroxyzine pamoate 25 mg capsule 25 mg PO TID PRN PRN #30 cap 10/17/18 Naproxen [Naprosyn] 500 mg PO BID PRN #20 tablet 12/04/18 Aspirin [Low Dose Aspirin EC] 81 mg PO DAILY 03/05/19 Atorvastatin Calcium [Lipitor] 80 mg PO QHS 03/05/19 Carvedilol [Coreg (Beta Fletcher)] 6.25 mg PO BID 03/05/19 Clopidogrel Bisulfate [Plavix] 75 mg PO DAILY 03/05/19 Isosorbide Mononitrate [Imdur] 30 mg PO DAILY 03/05/19 Losartan Potassium [Cozaar] 25 mg PO DAILY 03/05/19 Potassium Chloride [K-Dur] 20 meq PO DAILY 03/05/19 furosemide 40 mg tablet 40 mg PO BID@1000,1800 #180 tab 03/06/19 Surgical History: Surgical History (Last Reviewed 09/27/18 @ 02:25 by Marcus Mi MD) ICD (implantable cardioverter-defibrillator) in place (Chronic) Z95.810 History of coronary artery stent placement (Chronic) Z95.5 PCI-RCA and CX History of coronary artery stent placement Z95.5 [id number] and Cx History of left heart catheterization Onset Date: 12/14/17 Z98.890 CORONARY ANGIOGRAPHY DOMINANCE: Right Dominant LEFT HEART ASSESSMENT Left Ventricular Ejection Fraction: by LV Gram 10-15 % Global Hypokinesis - Severe Depressed Left Ventricular systolic function Normal Left Ventricular End Diastolic Pressure LEFT MAIN: Non-obstructive LEFT ANTERIOR DECENDING ARTERY: Previously placed stent is patent DIAGONAL 1: Ostial - Mild luminal irregularities less than 30% DIAGONAL 2: Proximal - Non-obstructive CIRCUMFLEX ARTERY: MID CIRC: Previously placed stent is patent RIGHT CORONARY ARTERY: MID RCA: Previously placed stent has instent 20 % restenosis with a new at distal edge of stent Surgical History: - - PCI x 10-11. ICD placement Psychiatric History: No pertinent psych hx Lives: Friends Smoking Status: Current every day smoker Tobacco Use: Cigarettes Alcohol: None - Patient states history of a lot of alcohol in past since the 80s Drugs: None - *Family History Maternal Family History: Family History (Last Reviewed 09/27/18 @ 02:26 by Marcus Mi MD) Father CAD (coronary artery disease) Heart disease Mother CAD (coronary artery disease) Heart disease Aunt Cancer Brother Heart disease Hypertension History Items: Heart Disease Paternal Family History: Family History (Last Reviewed 09/27/18 @ 02:26 by Marcus Mi MD) Father CAD (coronary artery disease) Heart disease Mother CAD (coronary artery disease) Heart disease Aunt Cancer Brother Heart disease Hypertension History Items: Heart Disease Review of Systems Constitutional: Denies: Anorexia, Fever HEENT: Denies: Difficulty Swallowing Gastrointestinal: Denies: Abdominal Pain Patient Problems: Active and Suspected Problems (Last Updated 11/23/18 @ 18:10 by Julián Armenta DO) Unspecified jaundice (Acute) Lactic acidosis (Acute) Sinus tachycardia by electrocardiogram (Acute) Dyspnea (Acute) Leukocytosis (Acute) Hyponatremia (Acute) History of ischemic cardiomyopathy (Acute) Unintentional weight loss (Acute) - Physical Exam General: - - Somnolent, patient keeps falling at asleep between questions Lungs: Normal air movement Cardiovascular: Regular rate Abdomen: Soft, Passing Flatus, Distended - Mild, Tender - Left flank greater than right flank, no right upper quadrant or epigastric tenderness palpation, Hernia - Umbilical hernia, partially reducible Extremities: No clubbing, No cyanosis Neurological: Cranial nerves II-XII grossly intact Psych/Mental Status: - - Somnolent/lethargic?keeps falling asleep between questions and takes several times for the questions to be answered Vital Signs Temp Pulse Resp BP Pulse Ox 98.1 F 95 18 130/94 H 98 03/07/19 09:26 03/07/19 09:26 03/07/19 09:26 03/07/19 09:26 03/07/19 09:26 Oxygen Flow Rate (L/min) 2 Oxygen Delivery Method Room Air Weight: 136 lb 15.994 oz Body Mass Index (BMI) 20.8 Finger Stick Blood Glucose 130 Intake and Output for Last 24 Hours 03/05/19 03/06/19 03/07/19 23:59 23:59 23:59 Intake Total 1240 / 1240 2914 / 2914 120 / 120 Output Total 225 / 225 Balance 1240 / 1240 2689 / 2689 120 / 120 Laboratory Tests Past 24 Hrs 03/06/19 03/07/19 03/07/19 05:45 05:30 05:30 WBC 10.5 RBC 4.49 L Hgb 11.4 L Hct 36.3 L MCV 80.8 MCH 25.4 L MCHC 31.4 L RDW 18.1 H RDW Differential 52.9 H Plt Count 232 MPV 9.3 Immature Gran % (Auto) 0.400 Neut % (Auto) 77.2 H Lymph % (Auto) 16.1 L [place] % (Auto) 5.0 Eos % (Auto) 0.8 Baso % (Auto) 0.5 Absolute Neuts (auto) 8.1 H Absolute Lymphs (auto) 1.69 Total Counted Not Reportable Sodium 135 L Potassium 5.1 Chloride 103 Carbon Dioxide 18.0 L Anion Gap 14 BUN 21 H Creatinine 0.84 Estim Creat Clear Calc 82.20 Est GFR (MDRD) Af Amer 119 Est GFR (MDRD) Non-Af 98 BUN/Creatinine Ratio 24.9 H Glucose 79 Calcium 8.2 L Total Bilirubin 2.40 H Direct Bilirubin AST 85 H ALT 42 Alkaline Phosphatase 131 H Total Protein 6.5 Albumin 2.7 L Globulin 3.8 Albumin/Globulin Ratio 0.7 L Rheumatoid Factor 38.0 H 03/07/19 05:30 WBC RBC Hgb Hct MCV MCH MCHC RDW RDW Differential Plt Count MPV Immature Gran % (Auto) Neut % (Auto) Lymph % (Auto) [place] % (Auto) Eos % (Auto) Baso % (Auto) Absolute Neuts (auto) Absolute Lymphs (auto) Total Counted Sodium Potassium Chloride Carbon Dioxide Anion Gap BUN Creatinine Estim Creat Clear Calc Est GFR (MDRD) Af Amer Est GFR (MDRD) Non-Af BUN/Creatinine Ratio Glucose Calcium Total Bilirubin Direct Bilirubin 0.55 H AST ALT Alkaline Phosphatase Total Protein Albumin Globulin Albumin/Globulin Ratio Rheumatoid Factor Assessment/Plan All Active Problems (Last Updated 11/23/18 @ 18:10 by Julián Armenta, DO) Unspecified jaundice (Acute) Lactic acidosis (Acute) Sinus tachycardia by electrocardiogram (Acute) Dyspnea (Acute) Leukocytosis (Acute) Hyponatremia (Acute) History of ischemic cardiomyopathy (Acute) Unintentional weight loss (Acute) Acute respiratory failure with hypoxia (Acute) Septic shock (Resolved) Severe sepsis (Resolved) Septic shock (Ruled-out) COPD with acute exacerbation (Acute) Acute respiratory failure with hypoxemia (Resolved) Acute bronchitis (Resolved) COPD exacerbation (Resolved) HCAP (healthcare-associated pneumonia) (Resolved) Hypotension (Resolved) MRSA (methicillin resistant Staphylococcus aureus) infection (Resolved) NSVT (nonsustained ventricular tachycardia) (Resolved) Near syncope (Resolved) 58-year-old male with elevated liver functions, history of alcohol abuse, congestive heart failure 1. Patient is currently tolerating regular diet denies any nausea vomiting or abdominal pain, on exam he does have a little bit of left flank pain greater than the right flank pain but no right upper quadrant pain- unsure source. It is also difficult to get history from the patient and he is quite somnolent and sure if this is just due to lack of sleep or again could be a sign of liver disease. Likely patient's pericholecystic fluid is due to liver disease which I do not believe has been diagnosed currently so would recommend patient be transferred somewhere with GI so he can proceed with appropriate work-up and treatment. Examination of liver disease or patient/heart failure could cause some pericholecystic fluid as patient has no symptoms of primary gallbladder disease. An MRCP did not show any obvious stones in the gallbladder or bile duct. Discussed with Dr. Barrios. Mayra Carbone M.D. Pager: [phone] [facility] [address] [place] [address], [facility], [address] [place] [address] Office: [phone] Code Visit Inpatient E&M: 38766 Init Hosp L2
[2019-03-07 10:50] LABS: Hep C Antibodies 0.1 s/co ratio (0.0-0.9)
--- NOTE | 2019-03-07 11:55 | PCM.PN.HOSP ---
Patient Problems: Active and Suspected Problems (Last Updated 11/23/18 @ 18:10 by Julián Armenta DO) Unspecified jaundice (Acute) Lactic acidosis (Acute) Sinus tachycardia by electrocardiogram (Acute) Dyspnea (Acute) Leukocytosis (Acute) Hyponatremia (Acute) History of ischemic cardiomyopathy (Acute) Unintentional weight loss (Acute) Subjective: Patient seen and examined. He complained of right neck pain. He denied any fever, chills, cough, chest pain, palpitations, dizziness, diarrhea or vomiting. Review of systems otherwise negative. Bilirubin noted to have trended up. General surgery consulted Vitals/I&O's: Vital Signs Temp Pulse Resp BP Pulse Ox 98.1 F 95 18 130/94 H 98 03/07/19 09:26 03/07/19 09:26 03/07/19 09:26 03/07/19 09:26 03/07/19 09:26 Oxygen Flow Rate (L/min) 2 Oxygen Delivery Method Room Air Weight: 136 lb 15.994 oz Body Mass Index (BMI) 20.8 Finger Stick Blood Glucose 130 Intake and Output for Last 24 Hours 03/05/19 03/06/19 03/07/19 23:59 23:59 23:59 Intake Total 1240 / 1240 2914 / 2914 480 / 480 Output Total 225 / 225 Balance 1240 / 1240 2689 / 2689 480 / 480 General: Alert, Oriented x3, Cooperative, No apparent distress, - - tinge of jaundice in sclera HEENT: Atraumatic, PERRLA, EOMI, Normocephalic Oral: Moist Mucosa Neck: Supple, No JVD, Negative Carotid Bruits Lungs: Clear to auscultation, Normal air movement, No rhonchi, No wheeze, No rales Cardiovascular: Regular rate, Regular Rhythm, Normal S1, Normal S2, No murmurs Abdomen: Bowel Sounds Present, Soft, Non Tender, Non-Distended, No Hepato-splenomegaly Extremities: No clubbing, No cyanosis, No edema, Capillary Refill Less than 3 Seconds Musculoskeletal: - -has mild tenderness over right neck muscles. Neurological: Cranial nerves II-XII grossly intact Psych/Mental Status: Normal Affect, Appropriate, Alert and oriented to time, place, person, mood and affect Laboratory Results 03/06/19 09:15: Hepatitis A IgM Ab Negative, Hep Bs Antigen Negative, Hep B Core IgM Ab Negative, Hepatitis C Ab (EIA) 0.1 03/07/19 05:30: WBC 10.5, RBC 4.49 L, Hgb 11.4 L, Hct 36.3 L, MCV 80.8, MCH 25.4 L, MCHC 31.4 L, RDW 18.1 H, RDW Differential 52.9 H, Plt Count 232, MPV 9.3, Immature Gran % (Auto) 0.400, Neut % (Auto) 77.2 H, Lymph % (Auto) 16.1 L, [place] % (Auto) 5.0, Eos % (Auto) 0.8, Baso % (Auto) 0.5, Absolute Neuts (auto) 8.1 H, Absolute Lymphs (auto) 1.69, Total Counted Not Reportable 03/07/19 05:30: Sodium 135 L, Potassium 5.1, Chloride 103, Carbon Dioxide 18.0 L, Anion Gap 14, BUN 21 H, Creatinine 0.84, Estim Creat Clear Calc 82.20, Est GFR (MDRD) Af Amer 119, Est GFR (MDRD) Non-Af 98, BUN/Creatinine Ratio 24.9 H, Glucose 79, Calcium 8.2 L, Total Bilirubin 2.40 H, AST 85 H, ALT 42, Alkaline Phosphatase 131 H, Total Protein 6.5, Albumin 2.7 L, Globulin 3.8, Albumin/Globulin Ratio 0.7 L 03/07/19 05:30: Direct Bilirubin 0.55 H 03/07/19 05:30: B-Natriuretic Peptide 3886.7 H Current Medications Acetaminophen (Tylenol) 650 mg PO Q6H PRN PRN PRN Reason: PAIN Albuterol Sulfate (Ventolin Aerosols) 2.5 mg INHALATION Q2H PRN PRN PRN Reason: dyspnea, wheezing Last Admin: 03/07/19 08:11 Dose: 2.5 mg Aspirin (Ecotrin) 81 mg PO DAILY [facility] Last Admin: 03/07/19 09:03 Dose: 81 mg Carvedilol (Coreg) 6.25 mg PO BID [facility] Last Admin: 03/07/19 09:03 Dose: 6.25 mg Clopidogrel Bisulfate (Plavix) 75 mg PO DAILY [facility] Last Admin: 03/07/19 09:03 Dose: 75 mg Enoxaparin Sodium (Lovenox) 40 mg SC DAILY@1000 [facility] Last Admin: 03/07/19 09:05 Dose: 40 mg Ferrous Gluconate (Ferrous Gluconate) 324 mg PO BIDCM [facility] Last Admin: 03/07/19 09:03 Dose: 324 mg Hydroxyzine Pamoate (Vistaril Pamoate Capsule) 25 mg PO TID PRN PRN PRN Reason: ANXIETY Last Admin: 03/06/19 22:40 Dose: 25 mg Sodium Chloride () 250 mls @ 15 mls/hr IV .[id number] PRN PRN Reason: SALINE FLUSH Isosorbide Mononitrate (Imdur) 30 mg PO DAILY [facility] Last Admin: 03/07/19 09:03 Dose: 30 mg Lorazepam (Ativan) 2 mg IV X1 PRN PRN Reason: ANXIETY Last Admin: 03/06/19 14:01 Dose: 2 mg Losartan Potassium (Cozaar) 25 mg PO DAILY [facility] Last Admin: 03/07/19 09:03 Dose: 25 mg Morphine Sulfate () 1 mg IV Q3H PRN PRN PRN Reason: SEVERE PAIN (6-10/10) Nitroglycerin (Nitrostat) 0.4 mg SUBLINGUAL Q5M PRN PRN Reason: CARDIAC/CHEST PAIN Oxycodone HCl (Oxyir) 5 mg PO Q6H PRN PRN PRN Reason: SEVERE PAIN (6-10/10) Last Admin: 03/07/19 05:57 Dose: 5 mg Potassium Chloride (K-Dur) 20 meq PO DAILY [facility] Last Admin: 03/07/19 09:03 Dose: 20 meq Sodium Chloride () 5 - 15 ml IV UD PRN PRN Reason: SALINE FLUSH Medical Necessity - Tobacco Use Smoking Status: Current every day smoker Tobacco Use: Cigarettes Assessment/Plan All Active Problems (Last Updated 11/23/18 @ 18:10 by Julián Armenta DO) Unspecified jaundice (Acute) Lactic acidosis (Acute) Sinus tachycardia by electrocardiogram (Acute) Dyspnea (Acute) Leukocytosis (Acute) Hyponatremia (Acute) History of ischemic cardiomyopathy (Acute) Unintentional weight loss (Acute) Acute respiratory failure with hypoxia (Acute) Septic shock (Resolved) Severe sepsis (Resolved) Septic shock (Ruled-out) COPD with acute exacerbation (Acute) Acute respiratory failure with hypoxemia (Resolved) Acute bronchitis (Resolved) COPD exacerbation (Resolved) HCAP (healthcare-associated pneumonia) (Resolved) Hypotension (Resolved) MRSA (methicillin resistant Staphylococcus aureus) infection (Resolved) NSVT (nonsustained ventricular tachycardia) (Resolved) Near syncope (Resolved) 1. Migratory polyarthritis of unclear etiology patient now complains of right sided neck pain this morning. CRP elevated at 91, ESR Only 48. Rheumatoid factor elevated at 38; rheumatologic panel pending. hepatitis panel also pending; transferring pending to follow up with PCP on outpatient basis for further workup 2. elevated liver enzymes possibly due to hepatic congestion from Acute heart failure with reduced EF total bilirubin was 2.4 on admission, and is 2.4 again today after trending down slightly. was mainly a direct bilirubinemia was complaining of SOB during review today BNP checked is 3886.7; he was recently admitted for acute exacerbation of heart failure with reduced EF, but has been noncompliant with his diuretics,. MRCP showed only pericholecystic fluid and no liver abnormality apart from a few cysts. will start patient on IV lasix 40mg bid. monitor input output fluid restriction to 1500cc daily has known EF of 15% 3. Acute exacerbation of heart failure with reduced EF: as under 2. 4. Hyponatremia: Na was 129, is up to 13 today. Will dc IVF o/a of EF of 15%. 5. HFrEF: EF of 15%, with ICD in place. stable, not SOB. will monitor. will switch to IV lasix 40mg bid. on Imdur and Losartan 6. CAD s/p stents: stable. On aspirin, statin, Plavix and carvedilol. 7. History of amphetamine abuse: stable. Urine tox was positive for amphetamines 8. Iron deficiency anemia: Hb is ~ 11. stable; this is around his baseline 9. COPD and emphysema: Stable. On breathing treatments. Insulin sliding scale. DVT prophylaxis: Lovenox For likely DC tomorrow Code Visit OBSV E&M: 78993 Subsequent observation care L3
--- NOTE | 2019-03-07 12:01 | PN_ITS ---
Patient Problems: Active and Suspected Problems (Last Updated 11/23/18 @ 18:10 by Julián Armenta DO) Unspecified jaundice (Acute) Lactic acidosis (Acute) Sinus tachycardia by electrocardiogram (Acute) Dyspnea (Acute) Leukocytosis (Acute) Hyponatremia (Acute) History of ischemic cardiomyopathy (Acute) Unintentional weight loss (Acute) Subjective: Patient seen and examined. He complained of right neck pain. He denied any fever, chills, cough, chest pain, palpitations, dizziness, diarrhea or vomiting. Review of systems otherwise negative. Bilirubin noted to have trended up. General surgery consulted Vitals/I&O's: Vital Signs Temp Pulse Resp BP Pulse Ox 98.1 F 95 18 130/94 H 98 03/07/19 09:26 03/07/19 09:26 03/07/19 09:26 03/07/19 09:26 03/07/19 09:26 Oxygen Flow Rate (L/min) 2 Oxygen Delivery Method Room Air Weight: 136 lb 15.994 oz Body Mass Index (BMI) 20.8 Finger Stick Blood Glucose 130 Intake and Output for Last 24 Hours 03/05/19 03/06/19 03/07/19 23:59 23:59 23:59 Intake Total 1240 / 1240 2914 / 2914 480 / 480 Output Total 225 / 225 Balance 1240 / 1240 2689 / 2689 480 / 480 General: Alert, Oriented x3, Cooperative, No apparent distress, - - tinge of jaundice in sclera HEENT: Atraumatic, PERRLA, EOMI, Normocephalic Oral: Moist Mucosa Neck: Supple, No JVD, Negative Carotid Bruits Lungs: Clear to auscultation, Normal air movement, No rhonchi, No wheeze, No rales Cardiovascular: Regular rate, Regular Rhythm, Normal S1, Normal S2, No murmurs Abdomen: Bowel Sounds Present, Soft, Non Tender, Non-Distended, No Hepato- splenomegaly Extremities: No clubbing, No cyanosis, No edema, Capillary Refill Less than 3 Seconds Musculoskeletal: - -has mild tenderness over right neck muscles. Neurological: Cranial nerves II-XII grossly intact Psych/Mental Status: Normal Affect, Appropriate, Alert and oriented to time, place, person, mood and affect Laboratory Results 03/06/19 09:15: Hepatitis A IgM Ab Negative, Hep Bs Antigen Negative, Hep B Core IgM Ab Negative, Hepatitis C Ab (EIA) 0.1 03/07/19 05:30: WBC 10.5, RBC 4.49 L, Hgb 11.4 L, Hct 36.3 L, MCV 80.8, MCH 25.4 L, MCHC 31.4 L, RDW 18.1 H, RDW Differential 52.9 H, Plt Count 232, MPV 9.3, Immature Gran % (Auto) 0.400, Neut % (Auto) 77.2 H, Lymph % (Auto) 16.1 L, [place] % (Auto) 5.0, Eos % (Auto) 0.8, Baso % (Auto) 0.5, Absolute Neuts (auto) 8.1 H, Absolute Lymphs (auto) 1.69, Total Counted Not Reportable 03/07/19 05:30: Sodium 135 L, Potassium 5.1, Chloride 103, Carbon Dioxide 18.0 L , Anion Gap 14, BUN 21 H, Creatinine 0.84, Estim Creat Clear Calc 82.20, Est GFR (MDRD) Af Amer 119, Est GFR (MDRD) Non-Af 98, BUN/Creatinine Ratio 24.9 H, Glucose 79, Calcium 8.2 L, Total Bilirubin 2.40 H, AST 85 H, ALT 42, Alkaline Phosphatase 131 H, Total Protein 6.5, Albumin 2.7 L, Globulin 3.8, Albumin/Globulin Ratio 0.7 L 03/07/19 05:30: Direct Bilirubin 0.55 H 03/07/19 05:30: B-Natriuretic Peptide 3886.7 H Current Medications Acetaminophen (Tylenol) 650 mg PO Q6H PRN PRN PRN Reason: PAIN Albuterol Sulfate (Ventolin Aerosols) 2.5 mg INHALATION Q2H PRN PRN PRN Reason: dyspnea, wheezing Last Admin: 03/07/19 08:11 Dose: 2.5 mg Aspirin (Ecotrin) 81 mg PO DAILY [facility] Last Admin: 03/07/19 09:03 Dose: 81 mg Carvedilol (Coreg) 6.25 mg PO BID [facility] Last Admin: 03/07/19 09:03 Dose: 6.25 mg Clopidogrel Bisulfate (Plavix) 75 mg PO DAILY [facility] Last Admin: 03/07/19 09:03 Dose: 75 mg Enoxaparin Sodium (Lovenox) 40 mg SC DAILY@1000 [facility] Last Admin: 03/07/19 09:05 Dose: 40 mg Ferrous Gluconate (Ferrous Gluconate) 324 mg PO BIDCM [facility] Last Admin: 03/07/19 09:03 Dose: 324 mg Hydroxyzine Pamoate (Vistaril Pamoate Capsule) 25 mg PO TID PRN PRN PRN Reason: ANXIETY Last Admin: 03/06/19 22:40 Dose: 25 mg Sodium Chloride () 250 mls @ 15 mls/hr IV .[id number] PRN PRN Reason: SALINE FLUSH Isosorbide Mononitrate (Imdur) 30 mg PO DAILY [facility] Last Admin: 03/07/19 09:03 Dose: 30 mg Lorazepam (Ativan) 2 mg IV X1 PRN PRN Reason: ANXIETY Last Admin: 03/06/19 14:01 Dose: 2 mg Losartan Potassium (Cozaar) 25 mg PO DAILY [facility] Last Admin: 03/07/19 09:03 Dose: 25 mg Morphine Sulfate () 1 mg IV Q3H PRN PRN PRN Reason: SEVERE PAIN (6-10/10) Nitroglycerin (Nitrostat) 0.4 mg SUBLINGUAL Q5M PRN PRN Reason: CARDIAC/CHEST PAIN Oxycodone HCl (Oxyir) 5 mg PO Q6H PRN PRN PRN Reason: SEVERE PAIN (6-10/10) Last Admin: 03/07/19 05:57 Dose: 5 mg Potassium Chloride (K-Dur) 20 meq PO DAILY [facility] Last Admin: 03/07/19 09:03 Dose: 20 meq Sodium Chloride () 5 - 15 ml IV UD PRN PRN Reason: SALINE FLUSH Medical Necessity - Tobacco Use Smoking Status: Current every day smoker Tobacco Use: Cigarettes Assessment/Plan All Active Problems (Last Updated 11/23/18 @ 18:10 by Julián Armenta DO) Unspecified jaundice (Acute) Lactic acidosis (Acute) Sinus tachycardia by electrocardiogram (Acute) Dyspnea (Acute) Leukocytosis (Acute) Hyponatremia (Acute) History of ischemic cardiomyopathy (Acute) Unintentional weight loss (Acute) Acute respiratory failure with hypoxia (Acute) Septic shock (Resolved) Severe sepsis (Resolved) Septic shock (Ruled-out) COPD with acute exacerbation (Acute) Acute respiratory failure with hypoxemia (Resolved) Acute bronchitis (Resolved) COPD exacerbation (Resolved) HCAP (healthcare-associated pneumonia) (Resolved) Hypotension (Resolved) MRSA (methicillin resistant Staphylococcus aureus) infection (Resolved) NSVT (nonsustained ventricular tachycardia) (Resolved) Near syncope (Resolved) 1. Migratory polyarthritis of unclear etiology * patient now complains of right sided neck pain this morning. * CRP elevated at 91, ESR Only 48. * Rheumatoid factor elevated at 38; rheumatologic panel pending. * hepatitis panel also pending; transferring pending * to follow up with PCP on outpatient basis for further workup * 2. elevated liver enzymes possibly due to hepatic congestion from Acute heart failure with reduced EF * total bilirubin was 2.4 on admission, and is 2.4 again today after trending down slightly. was mainly a direct bilirubinemia * was complaining of SOB during review today * BNP checked is 3886.7; he was recently admitted for acute exacerbation of heart failure with reduced EF, but has been noncompliant with his diuretics,. * MRCP showed only pericholecystic fluid and no liver abnormality apart from a few cysts. * will start patient on IV lasix 40mg bid. * monitor input output * fluid restriction to 1500cc daily * has known EF of 15% * 3. Acute exacerbation of heart failure with reduced EF: as under 2. 4. Hyponatremia: Na was 129, is up to 13 today. Will dc IVF o/a of EF of 15%. 5. HFrEF: EF of 15%, with ICD in place. stable, not SOB. will monitor. will switch to IV lasix 40mg bid. on Imdur and Losartan 6. CAD s/p stents: stable. On aspirin, statin, Plavix and carvedilol. 7. History of amphetamine abuse: stable. Urine tox was positive for amphetamines 8. Iron deficiency anemia: Hb is ~ 11. stable; this is around his baseline 9. COPD and emphysema: Stable. On breathing treatments. Insulin sliding scale. DVT prophylaxis: Lovenox For likely DC tomorrow Code Visit OBSV E&M: 82057 Subsequent observation care L3
[2019-03-07 12:13] LABS: ANTINUCLEAR ANTIBODIES DIRECT Negative (Negative)
[2019-03-07] MEDS: Furosemide 40 MG/4 ML Vial IV ×2 (12:37→16:43)
[2019-03-07] MEDS: 0.9% NaCl Peripheral Flush Adult/Peds IV ×2 (12:37→16:43)
[2019-03-08 03:45] VITALS: BP 110/72; PULSE 81; RESP 18; TEMP 36.4; O2SAT 96
[2019-03-08 07:33] LABS: Absolute Neutrophil Count 5.7 X10^3/uL (2.0-7.7); Basophil# 0.02 X10^3/uL; Basophil% 0.3 % (0-1); Eosinophil# 0.26 X10^3/uL; Eosinophils% 3.6 % (0-5); Hematocrit 35.8 % (40-54); Lymphocyte % 9.7 % (19-41); Mean Corp Hgb Conc 30.7 g/gl (32-36); Mean Corpuscular Hgb 24.2 pg (27.0-32.0); Mean Corpuscular Volume 78.7 fL (80-94); Monocyte# 0.53 X10^3/uL; Monocyte% 7.4 % (0-10); Neutrophil # 5.66 X10^3/uL (2.7-7.7); Neutrophil % 78.7 % (47-70); Platelet Count 252 K/mm3 (150-450); RBC Distribution Width CV 18.4 % (11.6-14.6); RBC Distribution Width SD 50.2 fl (35.1-43.9); Red Blood Count 4.55 M/mm3 (4.6-6.2); White Blood Count 7.2 K/mm3 (4.4-11.0)
[2019-03-08 07:42] LABS: POSITIVE COUNT NO; POSITIVE DIFFERENTIAL NO; POSITIVE MORPHOLOGY NO
[2019-03-08 07:56] LABS: ALB/GLOB Ratio 0.6 RATIO (0.9-2.4); AST(SGOT) 98 U/L (15-37); Alanine Aminotransfer ALT/SGPT 51 U/L (16-61); Albumin, Serum 2.4 g/dL (3.2-5.0); Alkaline Phosphatase 141 U/L (45-117); Anion Gap 10 (5-15); BUN 21 mg/dL (7-18); BUN/Creat Ratio 30.7 RATIO (10-20); Calcium,Total 7.9 mg/dL (8.5-10.1); Chloride 101 mmol/L (98-107); Creatinine, Serum 0.68 mg/dL (0.70-1.30); EST Glomerular Filtration Rate 125 mL/min (>60); Est Glom Filt Rate - Afr Amer 151 mL/min (>60); Estimated Creatinine Clearance 101.54 ml/min; Globulin 3.9 g/dL (2.2-4.2); Glucose 99 mg/dL (74-106); Potassium 3.4 mmol/L (3.5-5.1); Protein, Total 6.3 g/dL (6.4-8.2); Sodium Level 137 mmol/L (136-145)
[2019-03-08 07:57] VITALS: O2SAT 97
[2019-03-08] MEDS: Ferrous Gluconate 324 MG Tablet PO (08:23)
[2019-03-08 10:00] VITALS: BP 111/78; PULSE 79; RESP 18; TEMP 36.3; O2SAT 99
--- NOTE | 2019-03-08 10:25 | PCM.DC ---
- Discharge Diagnoses Current Active Problems: Current Active and Chronic Problems (Last Updated 11/23/18 @ 18:10 by Julián Armenta DO) Unspecified jaundice (Acute) Lactic acidosis (Acute) Sinus tachycardia by electrocardiogram (Acute) Dyspnea (Acute) Leukocytosis (Acute) Hyponatremia (Acute) History of ischemic cardiomyopathy (Acute) Anemia, unspecified (Chronic) Unintentional weight loss (Acute) Amphetamine abuse (Chronic) Chronic respiratory failure with hypoxia (Chronic) You will use the following diet at home:: Cardiac Your food should be the consistency of: Regular Your liquids should be the consistency of: Regular/Thin Discharge Activity: Return to Normal Activity Weight Bearing Status: Weight bearing as tolerated Call your doctor if you observe: Fever of 101 or Higher, Shortness of breath, Dizziness, Swelling in the ankles, Chest pain Instructions: Taking Medication to Control Heart Failure, What Is Heart Failure? Allergies/Adverse Reactions: Allergies No Known Allergies Allergy (Verified 03/05/19 11:25) Medications to take at Discharge Nitroglycerin (INPATIENT USE) [Nitrostat] 0.4 mg SUBLINGUAL Q5M PRN #1 bottle 12/14/17 ferrous gluconate 324 mg (37.5 mg iron) tablet 325 mg PO BIDCM #60 tab 01/15/18 Albuterol Inhaler [Ventolin Hfa] 2 puff INHALATION Q4H PRN PRN #1 inhaler 10/14/18 hydroxyzine pamoate 25 mg capsule 25 mg PO TID PRN PRN #30 cap 10/17/18 Naproxen [Naprosyn] 500 mg PO BID PRN #20 tablet 12/04/18 Aspirin [Low Dose Aspirin EC] 81 mg PO DAILY 03/05/19 Atorvastatin Calcium [Lipitor] 80 mg PO QHS 03/05/19 Carvedilol [Coreg (Beta Fletcher)] 6.25 mg PO BID 03/05/19 Clopidogrel Bisulfate [Plavix] 75 mg PO DAILY 03/05/19 Isosorbide Mononitrate [Imdur] 30 mg PO DAILY 03/05/19 Losartan Potassium [Cozaar] 25 mg PO DAILY 03/05/19 Potassium Chloride [K-Dur] 20 meq PO DAILY 03/05/19 furosemide 40 mg tablet 40 mg PO BID@1000,1800 #180 tab 03/06/19 Primary Care Physician: Jere,Berna, INTAKE CLERK-C [Primary Care Provider] - Please follow up with your Primary Care Physician in: one week Test Results: Test results from this visit will be discussed in further detail at your follow-up appointment, if applicable. Please Follow Up With: Margot Santillan MD When: 1-2 weeks; call office for appointment o/a of rheumatologic workup Proposed Discharge Date: 03/08/19
--- NOTE | 2019-03-08 10:26 | DS.PCM_ITS ---
Discharge Date and Diagnosis - Problem List Patient Problems: Active and Suspected Problems (Last Updated 11/23/18 @ 18:10 by Julián Armenta DO) Unspecified jaundice (Acute) Lactic acidosis (Acute) Sinus tachycardia by electrocardiogram (Acute) Dyspnea (Acute) Leukocytosis (Acute) Hyponatremia (Acute) History of ischemic cardiomyopathy (Acute) Unintentional weight loss (Acute) Date of Admission: 03/05/19 - Primary Discharge Diagnosis Active and Suspected Problems (Last Updated 11/23/18 @ 18:10 by Julián Armenta DO) Unspecified jaundice (Acute) Lactic acidosis (Acute) Sinus tachycardia by electrocardiogram (Acute) Dyspnea (Acute) Leukocytosis (Acute) Hyponatremia (Acute) History of ischemic cardiomyopathy (Acute) Unintentional weight loss (Acute) - Secondary Discharge Diagnosis Chronic Problems (Last Updated 11/23/18 @ 18:10 by Julián Armenta DO) Anemia, unspecified (Chronic) Amphetamine abuse (Chronic) Chronic respiratory failure with hypoxia (Chronic) Acute and chronic respiratory failure with hypoxia (Chronic) Acute on chronic systolic CHF (congestive heart failure) (Chronic) Systolic CHF (Chronic) Elevated troponin (Chronic) ICD (implantable cardioverter-defibrillator) in place (Chronic) History of coronary artery stent placement (Chronic) PCI-RCA and CX Atherosclerosis of coronary artery of [place] heart without angina pectoris (Chronic) LEFT HEART ASSESSMENT Left Ventricular Ejection Fraction: by LV Gram 10-15 % Global Hypokinesis - Severe Depressed Left Ventricular systolic function Normal Left Ventricular End Diastolic Pressure LEFT MAIN: Non-obstructive LEFT ANTERIOR DECENDING ARTERY: Previously placed stent is patent DIAGONAL 1: Ostial - Mild luminal irregularities less than 30% DIAGONAL 2: Proximal - Non-obstructive CIRCUMFLEX ARTERY: MID CIRC: Previously placed stent is patent RIGHT CORONARY ARTERY: MID RCA: Previously placed stent has instent 20 % restenosis with a new at distal edge of stent Iron deficiency anemia (Chronic) COPD (chronic obstructive pulmonary disease) (Chronic) Tobacco abuse (Chronic) Medical non-compliance (Chronic) Ischemic cardiomyopathy (Chronic) Hospital Course and Treatment Operations: None Summary of Care Provided: The patient is a 58 year old M [] Patient Problems: Active and Suspected Problems (Last Updated 11/23/18 @ 18:10 by Julián Armenta DO) Unspecified jaundice (Acute) Lactic acidosis (Acute) Sinus tachycardia by electrocardiogram (Acute) Dyspnea (Acute) Leukocytosis (Acute) Hyponatremia (Acute) History of ischemic cardiomyopathy (Acute) Unintentional weight loss (Acute) - Physical Exam Vital Signs Temp Pulse Resp BP Pulse Ox 97.6 F L 81 18 110/72 97 03/08/19 03:45 03/08/19 03:45 03/08/19 03:45 03/08/19 03:45 03/08/19 07:57 Oxygen Flow Rate (L/min) 2 Oxygen Delivery Method Room Air Weight: 136 lb 15.994 oz Body Mass Index (BMI) 20.8 Finger Stick Blood Glucose 130 Intake and Output for Last 24 Hours 03/06/19 03/07/19 03/08/19 23:59 23:59 23:59 Intake Total 2914 / 2914 1200 / 1200 300 / 300 Output Total 225 / 225 2550 / 2550 Balance 2689 / 2689 -1350 / -1350 300 / 300 Microbiology Past 72 Hours 03/05/19 12:00 Blood Culture - Preliminary Blood Culture (Wb) - Anticubital Right No growth in 48 hours. 03/05/19 11:45 Blood Culture - Preliminary Blood Culture (Wb) - Left Forearm No growth in 48 hours. Laboratory Tests Past 24 Hrs 03/06/19 03/06/19 03/07/19 09:15 09:15 05:30 WBC RBC Hgb Hct MCV MCH MCHC RDW RDW Differential Plt Count MPV Immature Gran % (Auto) Neut % (Auto) Lymph % (Auto) [place] % (Auto) Eos % (Auto) Baso % (Auto) Absolute Neuts (auto) Absolute Lymphs (auto) Total Counted Sodium Potassium Chloride Carbon Dioxide Anion Gap BUN Creatinine Estim Creat Clear Calc Est GFR (MDRD) Af Amer Est GFR (MDRD) Non-Af BUN/Creatinine Ratio Glucose Calcium Total Bilirubin AST ALT Alkaline Phosphatase B-Natriuretic Peptide 3886.7 H Total Protein Albumin Globulin Albumin/Globulin Ratio MELY Screen Negative Hepatitis A IgM Ab Negative Hep Bs Antigen Negative Hep B Core IgM Ab Negative Hepatitis C Ab (EIA) 0.1 03/08/19 03/08/19 07:08 07:08 WBC 7.2 RBC 4.55 L Hgb 11.0 L Hct 35.8 L MCV 78.7 L MCH 24.2 L MCHC 30.7 L RDW 18.4 H RDW Differential 50.2 H Plt Count 252 MPV 9.0 Immature Gran % (Auto) 0.300 Neut % (Auto) 78.7 H Lymph % (Auto) 9.7 L [place] % (Auto) 7.4 Eos % (Auto) 3.6 Baso % (Auto) 0.3 Absolute Neuts (auto) 5.7 Absolute Lymphs (auto) 0.70 L Total Counted Not Reportable Sodium 137 Potassium 3.4 L Chloride 101 Carbon Dioxide 26.0 Anion Gap 10 BUN 21 H Creatinine 0.68 L Estim Creat Clear Calc 101.54 Est GFR (MDRD) Af Amer 151 Est GFR (MDRD) Non-Af 125 BUN/Creatinine Ratio 30.7 H Glucose 99 Calcium 7.9 L Total Bilirubin 1.70 H AST 98 H ALT 51 Alkaline Phosphatase 141 H B-Natriuretic Peptide Total Protein 6.3 L Albumin 2.4 L Globulin 3.9 Albumin/Globulin Ratio 0.6 L MELY Screen Hepatitis A IgM Ab Hep Bs Antigen Hep B Core IgM Ab Hepatitis C Ab (EIA) Home Medications: Medications to take at Discharge Nitroglycerin (INPATIENT USE) [Nitrostat] 0.4 mg SUBLINGUAL Q5M PRN #1 bottle 12/14/17 ferrous gluconate 324 mg (37.5 mg iron) tablet 325 mg PO BIDCM #60 tab 01/15/18 Albuterol Inhaler [Ventolin Hfa] 2 puff INHALATION Q4H PRN PRN #1 inhaler 10/14/18 hydroxyzine pamoate 25 mg capsule 25 mg PO TID PRN PRN #30 cap 10/17/18 Naproxen [Naprosyn] 500 mg PO BID PRN #20 tablet 12/04/18 Aspirin [Low Dose Aspirin EC] 81 mg PO DAILY 03/05/19 Atorvastatin Calcium [Lipitor] 80 mg PO QHS 03/05/19 Carvedilol [Coreg (Beta Fletcher)] 6.25 mg PO BID 03/05/19 Clopidogrel Bisulfate [Plavix] 75 mg PO DAILY 03/05/19 Isosorbide Mononitrate [Imdur] 30 mg PO DAILY 03/05/19 Losartan Potassium [Cozaar] 25 mg PO DAILY 03/05/19 Potassium Chloride [K-Dur] 20 meq PO DAILY 03/05/19 furosemide 40 mg tablet 40 mg PO BID@1000,1800 #180 tab 03/06/19 Primary Care Physician: Berna Oquendo, INSTRUMENT MAN-C [Primary Care Provider] - Medical Necessity - Tobacco Use Smoking Status: Current every day smoker Tobacco Use: Cigarettes
--- NOTE | 2019-03-08 10:29 | DCINST_ITS ---
- Discharge Diagnoses Current Active Problems: Current Active and Chronic Problems (Last Updated 11/23/18 @ 18:10 by Julián Armenta DO) Unspecified jaundice (Acute) Lactic acidosis (Acute) Sinus tachycardia by electrocardiogram (Acute) Dyspnea (Acute) Leukocytosis (Acute) Hyponatremia (Acute) History of ischemic cardiomyopathy (Acute) Anemia, unspecified (Chronic) Unintentional weight loss (Acute) Amphetamine abuse (Chronic) Chronic respiratory failure with hypoxia (Chronic) You will use the following diet at home:: Cardiac Your food should be the consistency of: Regular Your liquids should be the consistency of: Regular/Thin Discharge Activity: Return to Normal Activity Weight Bearing Status: Weight bearing as tolerated Call your doctor if you observe: Fever of 101 or Higher, Shortness of breath, Dizziness, Swelling in the ankles, Chest pain Instructions: Taking Medication to Control Heart Failure, What Is Heart Failure? Allergies/Adverse Reactions: Allergies No Known Allergies Allergy (Verified 03/05/19 11:25) Medications to take at Discharge Nitroglycerin (INPATIENT USE) [Nitrostat] 0.4 mg SUBLINGUAL Q5M PRN #1 bottle 12/14/17 ferrous gluconate 324 mg (37.5 mg iron) tablet 325 mg PO BIDCM #60 tab 01/15/18 Albuterol Inhaler [Ventolin Hfa] 2 puff INHALATION Q4H PRN PRN #1 inhaler 10/14 hydroxyzine pamoate 25 mg capsule 25 mg PO TID PRN PRN #30 cap 10/17/18 Naproxen [Naprosyn] 500 mg PO BID PRN #20 tablet 12/04/18 Aspirin [Low Dose Aspirin EC] 81 mg PO DAILY 03/05/19 Atorvastatin Calcium [Lipitor] 80 mg PO QHS 03/05/19 Carvedilol [Coreg (Beta Fletcher)] 6.25 mg PO BID 03/05/19 Clopidogrel Bisulfate [Plavix] 75 mg PO DAILY 03/05/19 Isosorbide Mononitrate [Imdur] 30 mg PO DAILY 03/05/19 Losartan Potassium [Cozaar] 25 mg PO DAILY 03/05/19 Potassium Chloride [K-Dur] 20 meq PO DAILY 03/05/19 furosemide 40 mg tablet 40 mg PO BID@1000,1800 #180 tab 03/06/19 Primary Care Physician: Jere,Berna, CUSTODIAL OPERATIONS MANAGER-C [Primary Care Provider] - Please follow up with your Primary Care Physician in: one week Test Results: Test results from this visit will be discussed in further detail at your follow- up appointment, if applicable. Please Follow Up With: Margot Santillan MD When: 1-2 weeks; call office for appointment o/a of rheumatologic workup Proposed Discharge Date: 03/08/19
--- NOTE | 2019-03-08 10:29 | DS.PCM_ITS ---
Discharge Date and Diagnosis Date of Admission: 03/05/19 Date of Discharge: 03/08/19 - Primary Discharge Diagnosis Active and Suspected Problems (Last Updated 11/23/18 @ 18:10 by Julián Armenta DO) Unspecified jaundice (Acute) Lactic acidosis (Acute) Sinus tachycardia by electrocardiogram (Acute) Dyspnea (Acute) Leukocytosis (Acute) Hyponatremia (Acute) History of ischemic cardiomyopathy (Acute) Unintentional weight loss (Acute) - Secondary Discharge Diagnosis Chronic Problems (Last Updated 11/23/18 @ 18:10 by Julián Armenta DO) Anemia, unspecified (Chronic) Amphetamine abuse (Chronic) Chronic respiratory failure with hypoxia (Chronic) Acute and chronic respiratory failure with hypoxia (Chronic) Acute on chronic systolic CHF (congestive heart failure) (Chronic) Systolic CHF (Chronic) Elevated troponin (Chronic) ICD (implantable cardioverter-defibrillator) in place (Chronic) History of coronary artery stent placement (Chronic) PCI-RCA and CX Atherosclerosis of coronary artery of [place] heart without angina pectoris ([place]) LEFT HEART ASSESSMENT Left Ventricular Ejection Fraction: by LV Gram 10-15 % Global Hypokinesis - Severe Depressed Left Ventricular systolic function Normal Left Ventricular End Diastolic Pressure LEFT MAIN: Non-obstructive LEFT ANTERIOR DECENDING ARTERY: Previously placed stent is patent DIAGONAL 1: Ostial - Mild luminal irregularities less than 30% DIAGONAL 2: Proximal - Non-obstructive CIRCUMFLEX ARTERY: MID CIRC: Previously placed stent is patent RIGHT CORONARY ARTERY: MID RCA: Previously placed stent has instent 20 % restenosis with a new at distal edge of stent Iron deficiency anemia (Chronic) COPD (chronic obstructive pulmonary disease) (Chronic) Tobacco abuse (Chronic) Medical non-compliance (Chronic) Ischemic cardiomyopathy (Chronic) Hospital Course and Treatment Imaging Results: Diagnostic Data Chest X-Ray 03/05/19 11:35 IMPRESSION: No acute abnormality is seen. Electronically Signed: Darrick Coreas, at 12:54 EDT , Service support , Abdomen/Pelvis CT 03/05/19 12:42 IMPRESSION: 1. Emphysematous/fibrotic changes at the lung bases. 2. Cardiomegaly. An intracardiac wire is seen. Coronary stents are noted. 3. The liver demonstrates a diffuse mottled texture. There is no dilatation of the intra or extrahepatic biliary ductal system. There is a subcentimeter right hepatic lobe cyst. 4. There is mild diffuse gallbladder wall thickening. 5. Nonobstructing 2 mm right renal calculus. 6. Diffusely increased stranding of the subcutaneous fat suggestive of anasarca. 7. Small fat-containing umbilical hernia. Electronically Signed: Aj Ortiz MD at 16:39 EDT , Service support , MRCP 03/06/19 05:55 IMPRESSION: Significantly limited study. No gallstones or ductal stones identified. No intrahepatic or extrahepatic biliary duct dilatation. Pericholecystic fluid. If indicated, further evaluation with ultrasound or nuclear medicine hepatobiliary study can be performed. Electronically Signed: Edgar Jackman, at 18:33 EDT Tel , Service support , Shoulder X-Ray 03/06/19 10:30 IMPRESSION: Degenerative changes. Electronically Signed: Darrick Coreas, at 14:14 EDT , Service support , Operations: None Procedures: None Summary of Care Provided: The patient is a 58 year old M with a past medical history as listed. He was admitted through the ED on 03/05/2019 with a complaint of fever as well as left shoulder and left arm pain. His temperature was 102 the day prior to admission. Stated he had been feeling unwell for several days and and had nausea and vomiting. He denied any abdominal pain or diarrhea. Was noted to be jaundiced on admission. Bilirubin was 2.4 on admission with an initially normal AST and ALT and slightly elevated ALP. Bilirubin was more of a direct bilirubinemia. CT of the abdomen showed mottling of the liver. He was initially admitted and managed for jaundice of unspecified etiology. Lipase was also within normal limits. Patient subsequently obtained an MRCP which showed normal liver but did show pericholecystic fluid but no gallstones or evidence of cholecystitis. 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 He said this had been going on for a while he had been worked up but did not know what tests had been done. Ferritin was within normal limits. Transferrin was also ordered but was pending at time of discharge. Rheumatology panel showed elevated rheumatoid factor at 38 but MELY was negative. Rest of rheumatologic panel was pending at time of discharge. Hepatitis B screen was also negative apart from minimal hepatitis C antibodies. General surgery was consulted on account of pericholecystic fluid but advocated conservative management and initially proposed transfer. Patient then subsequently complained of shortness of breath and stated he had not been compliant with his heart failure medications. BNP checked was 3886.7. Of note, BNP appeared to be chronically elevated and when last checked in January 2019 when he was admitted for acute exacerbation of heart failure, it was 2502. Patient however stated he had not been taking his medications. He was therefore managed for acute exacerbation of systolic heart failure and was diuresed with IV Lasix. Patient subsequently felt much better after diuresis and was noted that liver enzymes also trended down with total bilirubin going down to 1.7.2.4. Was therefore thought that the elevated liver enzymes was likely due to hepatic congestion from heart failure. Patient remained stable and was counseled strongly on the need for compliance. He was discharged home on 03/08/2019 with a prescription for p.o. Lasix 40 mg twice daily. He was also referred to rheumatology on account of the migratory polyarthritis of unclear etiology. 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 Patient seen and examined prior to discharge. He had no complaints and felt well. Review of systems is otherwise negative. Shortness of breath that improved and he did not have any joint pain. Labs and vitals reviewed. Home medication reviewed and reconciled. o/e: Vital Signs Height 5 ft 8 in Weight: 136 lb 15.994 oz Weight in Pounds 137.0 lbs Pulse Ox 99 Temperature 97.3 F Pulse Rate 87 Respiratory Rate 22 Blood Pressure 111/78 Blood Pressure Position Sitting [] General: Alert, Oriented x3, Cooperative, No apparent distress, - -slight tinge of jaundice HEENT: Atraumatic, PERRLA, EOMI, Normocephalic Oral: Moist Mucosa Neck: Supple, No JVD, Negative Carotid Bruits Lungs: Clear to auscultation, Normal air movement, No rhonchi, No wheeze, No rales Cardiovascular: Regular rate, Regular Rhythm, Normal S1, Normal S2, No murmurs Abdomen: Bowel Sounds Present, Soft, Non Tender, Non-Distended, No Hepato- splenomegaly Extremities: No clubbing, No cyanosis, No edema, Capillary Refill Less than 3 Seconds Musculoskeletal: - -has mild tenderness over right neck muscles. Neurological: Cranial nerves II-XII grossly intact Psych/Mental Status: Normal Affect, Appropriate, Alert and oriented to time, place, person, mood and affect Plan as above. - Physical Exam Vital Signs Temp Pulse Resp BP Pulse Ox 97.6 F L 81 18 110/72 97 03/08/19 03:45 03/08/19 03:45 03/08/19 03:45 03/08/19 03:45 03/08/19 07:57 Oxygen Flow Rate (L/min) 2 Oxygen Delivery Method Room Air Weight: 136 lb 15.994 oz Body Mass Index (BMI) 20.8 Finger Stick Blood Glucose 130 Intake and Output for Last 24 Hours 03/06/19 03/07/19 03/08/19 23:59 23:59 23:59 Intake Total 2914 / 2914 1200 / 1200 300 / 300 Output Total 225 / 225 2550 / 2550 Balance 2689 / 2689 -1350 / -1350 300 / 300 Microbiology Past 72 Hours 03/05/19 12:00 Blood Culture - Preliminary Blood Culture (Wb) - Anticubital Right No growth in 48 hours. 03/05/19 11:45 Blood Culture - Preliminary Blood Culture (Wb) - Left Forearm No growth in 48 hours. Laboratory Tests Past 24 Hrs 03/06/19 03/06/19 03/07/19 09:15 09:15 05:30 WBC RBC Hgb Hct MCV MCH MCHC RDW RDW Differential Plt Count MPV Immature Gran % (Auto) Neut % (Auto) Lymph % (Auto) [place] % (Auto) Eos % (Auto) Baso % (Auto) Absolute Neuts (auto) Absolute Lymphs (auto) Total Counted Sodium Potassium Chloride Carbon Dioxide Anion Gap BUN Creatinine Estim Creat Clear Calc Est GFR (MDRD) Af Amer Est GFR (MDRD) Non-Af BUN/Creatinine Ratio Glucose Calcium Total Bilirubin AST ALT Alkaline Phosphatase B-Natriuretic Peptide 3886.7 H Total Protein Albumin Globulin Albumin/Globulin Ratio MELY Screen Negative Hepatitis A IgM Ab Negative Hep Bs Antigen Negative Hep B Core IgM Ab Negative Hepatitis C Ab (EIA) 0.1 03/08/19 03/08/19 07:08 07:08 WBC 7.2 RBC 4.55 L Hgb 11.0 L Hct 35.8 L MCV 78.7 L MCH 24.2 L MCHC 30.7 L RDW 18.4 H RDW Differential 50.2 H Plt Count 252 MPV 9.0 Immature Gran % (Auto) 0.300 Neut % (Auto) 78.7 H Lymph % (Auto) 9.7 L [place] % (Auto) 7.4 Eos % (Auto) 3.6 Baso % (Auto) 0.3 Absolute Neuts (auto) 5.7 Absolute Lymphs (auto) 0.70 L Total Counted Not Reportable Sodium 137 Potassium 3.4 L Chloride 101 Carbon Dioxide 26.0 Anion Gap 10 BUN 21 H Creatinine 0.68 L Estim Creat Clear Calc 101.54 Est GFR (MDRD) Af Amer 151 Est GFR (MDRD) Non-Af 125 BUN/Creatinine Ratio 30.7 H Glucose 99 Calcium 7.9 L Total Bilirubin 1.70 H AST 98 H ALT 51 Alkaline Phosphatase 141 H B-Natriuretic Peptide Total Protein 6.3 L Albumin 2.4 L Globulin 3.9 Albumin/Globulin Ratio 0.6 L MELY Screen Hepatitis A IgM Ab Hep Bs Antigen Hep B Core IgM Ab Hepatitis C Ab (EIA) Discharge Diet: Low fat/ Low Cholesterol Discharge Activity: Return to Normal Activity Weight Bearing Status: Weight bearing as tolerated Call your doctor if you observe: Fever of 101 or Higher, Shortness of breath, Dizziness, Swelling in the ankles, Chest pain Home Medications: Medications to take at Discharge Nitroglycerin (INPATIENT USE) [Nitrostat] 0.4 mg SUBLINGUAL Q5M PRN #1 bottle 12/14/17 ferrous gluconate 324 mg (37.5 mg iron) tablet 325 mg PO BIDCM #60 tab 01/15/18 Albuterol Inhaler [Ventolin Hfa] 2 puff INHALATION Q4H PRN PRN #1 inhaler 10/14/18 hydroxyzine pamoate 25 mg capsule 25 mg PO TID PRN PRN #30 cap 10/17/18 Naproxen [Naprosyn] 500 mg PO BID PRN #20 tablet 12/04/18 Aspirin [Low Dose Aspirin EC] 81 mg PO DAILY 03/05/19 Atorvastatin Calcium [Lipitor] 80 mg PO QHS 03/05/19 Carvedilol [Coreg (Beta Fletcher)] 6.25 mg PO BID 03/05/19 Clopidogrel Bisulfate [Plavix] 75 mg PO DAILY 03/05/19 Isosorbide Mononitrate [Imdur] 30 mg PO DAILY 03/05/19 Losartan Potassium [Cozaar] 25 mg PO DAILY 03/05/19 Potassium Chloride [K-Dur] 20 meq PO DAILY 03/05/19 furosemide 40 mg tablet 40 mg PO BID@1000,1800 #180 tab 03/06/19 Primary Care Physician: Berna Oquendo NP-C [Primary Care Provider] - Please follow up with your Primary Care Physician in: one week Please Follow Up With: Margot Santillan MD When: 1-2 weeks; call office for appointment o/a of rheumatologic workup Patient Instructions: Taking Medication to Control Heart Failure, What Is Heart Failure? Pending Tests Upon Discharge: Transferrin, rheumatologic panel Disposition: Home Minutes spent on discharge:: 45 Patient Condition:: Stable Medical Necessity - Tobacco Use Smoking Status: Current every day smoker Tobacco Use: Cigarettes Meaningful Use Info Meaningful Use Diagnoses (Choose all that apply): CHF - CHF YUE/ARB ordered at discharge?: Yes Documented LVEF (%): 15 Code Visit Inpatient E&M: 69269 Disch Hosp
[2019-03-08] MEDS: Losartan Potassium 25 MG Tablet PO (10:56)
[2019-03-08] MEDS: Clopidogrel Bisulfate 75 MG Tablet PO (10:56)
[2019-03-08] MEDS: Carvedilol 6.25 MG Tablet PO (10:56)
[2019-03-08] MEDS: Aspirin E.C. 81 MG Tablet PO (10:56)
[2019-03-08] MEDS: Furosemide 40 MG/4 ML Vial IV (10:57)
[2019-03-08] MEDS: Isosorbide Mononitrate 30 MG Tablet PO (10:57)
[2019-03-08 11:21] VITALS: PULSE 87; RESP 22
[2019-03-08] MEDS: Albuterol 2.5 MG/3 ML VIAL.NEB. INHALATION (11:21)
--- NOTE | 2019-03-08 11:55 | NURSING ---
pt reported that government [employer] card is missing stated, that has my money on it to live on. room checked again by this rn and locked cabinet in med room but not found. security called and is checking lost and found. pt dressed and ready for dc but stated, cant pay for cab now
[2019-03-09 13:56] LABS: Transferrin 238 mg/dL (200-370)
== END 2019-03-08 12:26 | disposition home or self-care (01) ==
LOC: ED 16:51 → PCU 03-06 07:10
PROVIDERS: Physician Assistant; Admitting Provider Family Medicine; Emergency Provider Emergency Medicine; Family Provider Nurse Practitioner Family; PCP Nurse Practitioner Family; Referring Provider Family Medicine; Visit Provider Student in an Organized Health Care Education/Training Program
DX: I11.0 Hypertensive heart disease with heart failure (principal); I50.23 Acute on chronic systolic (congestive) heart failure; R17 Unspecified jaundice; M89.8X9 Other specified disorders of bone, unspecified site; F17.210 Nicotine dependence, cigarettes, uncomplicated; M54.2 Cervicalgia; J96.21 Acute and chronic respiratory failure with hypoxia; I25.10 Atherosclerotic heart disease of native coronary artery without angina pectoris; J44.9 Chronic obstructive pulmonary disease, unspecified; I25.5 Ischemic cardiomyopathy; D50.9 Iron deficiency anemia, unspecified; Z95.810 Presence of automatic (implantable) cardiac defibrillator; Z79.899 Other long term (current) drug therapy; Z79.82 Long term (current) use of aspirin; Z79.02 Long term (current) use of antithrombotics/antiplatelets; G25.81 Restless legs syndrome; F15.10 Other stimulant abuse, uncomplicated; M25.512 Pain in left shoulder; E87.2 Acidosis; R63.4 Abnormal weight loss; Z68.20 Body mass index [BMI] 20.0-20.9, adult; E87.1 Hypo-osmolality and hyponatremia; Z91.14 Patient's other noncompliance with medication regimen
CPT/HCPCS: 36415; 71046; 73030; 74177; 74181; 80053; 80074; 80307; 81001; 82248; 82728; 83605; 83690; 83880; 84466; 85025; 85610; 85652; 85730; 86038; 86140; 86225; 86235; 86431; 87040; 93005; 94640; 96361; 96372; 96374; 96375; 96376; 97802; 99218; 99285; J7030; Q9967; A4216; G0378; J1940

== ENCOUNTER 2019-03-17 00:33 | Observation (INO) | payer MEDICARE, MEDICAID, SELFPAY ==
[2019-03-05 18:10] VITALS: BMI 20.8
[2019-03-17] VITALS (16 sets, daily range): BP systolic 127–149; BP diastolic 87–104; PULSE 96–120; RESP 12–40; TEMP 36.3–37.8; O2SAT 93–100; BMI 23.6; BMI 21.2; BMI 21.3
--- NOTE | 2019-03-17 00:45 | EKG12_ITS ---
Test Reason : Blood Pressure : / mmHG Vent. Rate : 116 BPM Atrial Rate : 117 BPM P-R Int : 238 ms QRS Dur : 118 ms QT Int : 324 ms P-R-T Axes : -26 -74 103 degrees QTc Int : 450 ms Sinus tachycardia with 1st degree A-V block with occasional Premature ventricular complexes Left axis deviation Septal infarct , age undetermined ST & T wave abnormality, consider lateral ischemia Abnormal ECG Confirmed by PRETTY BARLOW, HIRA ([id number]), acquisition editor AMADOR EDMONDS ([id number] on 03/17/2019 1:21:54 PM Referred By: Marcus Mi Confirmed By:HIRA OLSEN MD
--- NOTE | 2019-03-17 00:46 | RAD_ITS ---
STUDY: X-RAY CHEST REASON FOR EXAM: Male, 58 years old. Cough TECHNIQUE: Single AP portable view of the chest. COMPARISON: 03/05/2019 FINDINGS: An AICD is seen on the left side. There is hyperinflation of the lungs consistent with chronic obstructive lung disease (COPD). There is no demonstrated pleural abnormality. Normal size heart. Normal mediastinum and alberto. Normal visualized pulmonary arteries. Normal visualized aortic arch and descending thoracic aorta. Normal visualized thoracic spine. There is degenerative osteoarthritis of the bilateral shoulders. There is no demonstrated abnormality of the visualized soft tissue structures of the upper abdomen. RAD/Chest 1 View (Portable) IMPRESSION: Degenerative changes, as described above. No demonstrated acute cardiopulmonary process. Electronically Signed: Nikos Lopez, at 1:14 EDT Tel , Service support ,
--- NOTE | 2019-03-17 00:57 | ED.DCSUM_ITS ---
History of Present Illness Chief Complaint: Shortness of Breath Informant: Patient Narrative: Stated he started having some shortness of breath this afternoon. He tried his albuterol inhaler but it did not seem to work. It progressed this evening and he called the paramedics. When EMS arrived he was hypoxic and placed on BiPAP. This helped tremendously. Patient feels much better on BiPAP. He stated he has had a mild cough. He does have a history of CHF little for CHF exacerbation. Maribel chino was diuresed with Lasix. He denies any new weight gain. He does smoke cigarettes and has a history of COPD as well. Patient denies any pain. He was worked up recently for painless jaundice. He stated that has not gotten any worse. He did have an ERCP at that time. Conservative management of this. - Past Medical History (1) Acute respiratory failure with hypoxia Status: Acute (2) COPD with acute exacerbation Status: Acute (3) Dyspnea Status: Acute (4) History of ischemic cardiomyopathy Status: Acute (5) Hyponatremia Status: Acute (6) Lactic acidosis Status: Acute (7) Leukocytosis Status: Acute (8) Sinus tachycardia by electrocardiogram Status: Acute (9) Unintentional weight loss Status: Acute (10) Unspecified jaundice Status: Acute (11) Acute and chronic respiratory failure with hypoxia Status: Chronic (12) Acute on chronic systolic CHF (congestive heart failure) Status: Chronic (13) Amphetamine abuse Status: Chronic (14) Anemia, unspecified Status: Chronic (15) Atherosclerosis of coronary artery of [place] heart without angina pectoris Status: Chronic Comment: LEFT HEART ASSESSMENT Left Ventricular Ejection Fraction: by LV Gram 10-15 % Global Hypokinesis - Severe Depressed Left Ventricular systolic function Normal Left Ventricular End Diastolic Pressure LEFT MAIN: Non-obstructive LEFT ANTERIOR DECENDING ARTERY: Previously placed stent is patent DIAGONAL 1: Ostial - Mild luminal irregularities less than 30% DIAGONAL 2: Proximal - Non-obstructive CIRCUMFLEX ARTERY: MID CIRC: Previously placed stent is patent RIGHT CORONARY ARTERY: MID RCA: Previously placed stent has instent 20 % restenosis with a new at distal edge of stent (16) COPD (chronic obstructive pulmonary disease) Status: Chronic (17) Chronic respiratory failure with hypoxia Status: Chronic (18) Elevated troponin Status: Chronic (19) History of coronary artery stent placement Status: Chronic Comment: PCI-RCA and CX (20) ICD (implantable cardioverter-defibrillator) in place Status: Chronic (21) Iron deficiency anemia Status: Chronic (22) Ischemic cardiomyopathy Status: Chronic (23) Medical non-compliance Status: Chronic (24) Systolic CHF Status: Chronic (25) Tobacco abuse Status: Chronic (26) Acute respiratory failure with hypoxemia Status: Resolved (27) Septic shock Status: Resolved (28) Severe sepsis Status: Resolved (29) Septic shock Status: Ruled-out Past Medical History - Allergies and Home Meds Allergies/Adverse Reactions: Allergies No Known Allergies Allergy (Verified 03/05/19 11:25) Primary Care Physician: Berna Oquendo NP-C [Primary Care Provider] - Prior records reviewed: Yes Surgical History: - - PCI x 10-11. ICD placement Smoking Status: Current every day smoker Drugs: None - Family History Maternal Family History: Family History (Last Reviewed 09/27/18 @ 02:26 by Marcus Mi MD) Father CAD (coronary artery disease) Heart disease Mother CAD (coronary artery disease) Heart disease Aunt Cancer Brother Heart disease Hypertension Family History: Reports: Heart Disease Paternal Family History: Family History (Last Reviewed 09/27/18 @ 02:26 by Marcus Mi MD) Father CAD (coronary artery disease) Heart disease Mother CAD (coronary artery disease) Heart disease Aunt Cancer Brother Heart disease Hypertension Family History: Reports: Heart Disease Review of Systems General: Denies: Chills, Fever, Sweats Eyes: Denies: Visual changes - bilaterally, Diplopia ENT: Denies: Rhinorrhea, Sore throat Cardiovascular: Denies: Chest pain, Palpitations Respiratory: Reports: Dyspnea, Cough, Dyspnea on exertion Gastrointestinal: Denies: Abdominal pain, Nausea, Vomiting, Diarrhea, Melena, Hematochezia Genitourinary: Denies: Dysuria, Hematuria, Frequency Musculoskeletal: Denies: Back pain, Extremity Pain Skin: Denies: Rash, Wounds Neurological: Denies: Headache, Weakness, Numbness Physical Exam Vital Signs/Narrative: Vital Signs Temp Pulse Resp BP Pulse Ox 03/17/19 00:44 100.1 F H 120 H 32 H 138/99 H 95 03/17/19 00:34 100.1 F H 120 H 32 H 138/99 H 95 General: Well nourished, Well developed, No Acute Distress Head: Normocephalic, Atraumatic Eyes: Perrl, EOMI ENT: Moist mucous membranes, No rhinorrhea Neck: Supple, Nontender Cardiovascular: Regular rate, Regular rhythm, No murmurs Respiratory: CTA bilaterally, Chest nontender, - - Patient tachypneic on exam but resting now on BiPAP. Negative for: No distress, Rales, Rhonchi, Wheezing, Retractions Abdomen: Soft, Nontender, Nondistended, Normal bowel sounds Back: Nontender, Normal Inspection Extremities: Nontender, No edema Skin: Normal color, No rash Neurological: Alert, Oriented x3, Cranial nerves II-XII grossly intact, Normal Strength, Normal Sensation Psychological: Normal affect, Normal Mood Diagnostic/Tx/Re-eval - Medical Decision Making Patient continued on BiPAP. Lab work chest x-ray and EKG obtained. Breathing treatment given. Patient felt better after these treatments. Chest x-ray shows nothing acute. EKG shows sinus rhythm at a rate of 116. Occasional PVCs noted. Nonspecific ST changes unchanged from prior. Troponin negative. B natruretic peptide chronically elevated over 3000. CBC shows no leukocytosis. Patient after approximate half hour wanted the BiPAP off. We instructed him that he needs to stay on. He insisted that we take it off. We did take it off and placed him on nasal cannula. The patient stated that he wants to go home. I discussed inpatient treatment due to his severe COPD. I was able to change his mind. He will be given Solu-Medrol and a dose of levofloxacin. I do not think this is CHF related. His chest x-ray is clear. Be admitted - Critical Care Time Critical care time (excluding procedures): 30-74 minutes ED Disposition - Plan for ED Patient: Diagnosis: COPD with exacerbation, Hypoxia Referrals: Berna Oquendo, DANA-C [Primary Care Provider] -
[2019-03-17 01:02] LABS: Absolute Lymphocyte Count 1.25 X10^3/ul (0.83-4.51); Absolute Neutrophil Count 5.9 X10^3/uL (2.0-7.7); Basophil# 0.07 X10^3/uL; Basophil% 0.9 % (0-1); Eosinophil# 0.09 X10^3/uL; Eosinophils% 1.2 % (0-5); Hematocrit 36.7 % (40-54); Hemoglobin 11.7 g/dl (13.0-16.5); Lymphocyte # 1.25 X10^3/ul (4.0); Lymphocyte % 16.3 % (19-41); Mean Corp Hgb Conc 31.9 g/gl (32-36); Mean Corpuscular Hgb 25.7 pg (27.0-32.0); Mean Corpuscular Volume 80.5 fL (80-94); Monocyte# 0.37 X10^3/uL; Monocyte% 4.8 % (0-10); Neutrophil # 5.88 X10^3/uL (2.7-7.7); Neutrophil % 76.5 % (47-70); POSITIVE COUNT NO; POSITIVE DIFFERENTIAL NO; POSITIVE MORPHOLOGY NO; Platelet Count 235 K/mm3 (150-450); RBC Distribution Width CV 18.3 % (11.6-14.6); RBC Distribution Width SD 53.1 fl (35.1-43.9); Red Blood Count 4.56 M/mm3 (4.6-6.2); White Blood Count 7.7 K/mm3 (4.4-11.0)
[2019-03-17 01:15] LABS: Anion Gap 11 (5-15); BUN 19 mg/dL (7-18); BUN/Creat Ratio 19.9 RATIO (10-20); Calcium,Total 8.7 mg/dL (8.5-10.1); Chloride 97 mmol/L (98-107); Creatinine, Serum 0.96 mg/dL (0.70-1.30); EST Glomerular Filtration Rate 85 mL/min (>60); Est Glom Filt Rate - Afr Amer 103 mL/min (>60); Glucose 98 mg/dL (74-106); Potassium 4.5 mmol/L (3.5-5.1); Sodium Level 132 mmol/L (136-145)
--- NOTE | 2019-03-17 01:39 | ED.RN ---
PT DEMANDING TO HAVE BIPAP REMOVED. PER DR WILLINGHAM WE CAN NOT FORCE THE PT TO KEEP THE BIPAP MASK ON. RESPIRATORY THERAPY AND THIS NURSE IN THE ROOM. PT TAKEN OFF BIPAP. PLACED ON NASAL CANNULA AT 5L/MIN. THIS NURSE DISCUSSED WITH THE PT THE IMPORTANCE OF BEING PATIENT AND ALLOWING THE BIPAP MASK TO HELP HIM BREATHE. PT VERBALIZED UNDERSTANDING. PT REQUESTING TO REMAIN ON NC
[2019-03-17] MEDS: Ipratropium/Albuterol Sulfate 3 ML AMPUL.NEB INHALATION ×4 (01:56→15:02)
[2019-03-17] MEDS: MethylPREDNISolone 125 MG/2 ML Vial IV (02:23)
--- NOTE | 2019-03-17 02:29 | ED.RN ---
PER PT REQUEST, BROTHER CONTACTED AND NOTIFIED PT IN THE ER AND WILL BE ADMITTED
[2019-03-17] MEDS: levoFLOXacin IV 750 MG/150 ML BAG 100 MG IV (02:41)
--- NOTE | 2019-03-17 02:52 | HP.PCM_ITS ---
Problem List (1) COPD exacerbation Status: Chronic History of Present Illness Date of Admission: 03/17/19 Chief Complaint: sob The patient is a 58 year old M with a significant history of COPD; tobacco abuse; ischemic cardiomyopathy with ejection fraction of 15% status post stents and ICD; who presented to the emergency department with progressively worsening shortness of breath that started on the day of presentation. Shortness of breath did not resolve with his home inhaler. Associated with his symptoms is wheezing; productive cough of dark yellow sputum. Patient called the squad who brought him to the emergency department. Reportedly upon arrival of the squad his oxygen saturation was 78% for which reason he was placed on the BiPAP. Emergency department doctor reported expiratory wheezes. At emergency department his temperature was 100.1. Patient was given Solu- Medrol breathing treatments. Initially patient requested that his BiPAP be taken off and ready to leave AMA. His BiPAP was subsequently taken off and he was transitioned to nasal cannula. At emergency department his BNP was over 3000 but he denies any recent weight gain or edema. Past Medical History Past Medical History (Chronic Problems): Chronic Problems (Last Reviewed 03/17/19 @ 06:40 by Marcus Mi MD) Anemia, unspecified (Chronic) Amphetamine abuse (Chronic) Chronic respiratory failure with hypoxia (Chronic) COPD exacerbation (Chronic) Acute and chronic respiratory failure with hypoxia (Chronic) Acute on chronic systolic CHF (congestive heart failure) (Chronic) Systolic CHF (Chronic) Elevated troponin (Chronic) ICD (implantable cardioverter-defibrillator) in place (Chronic) History of coronary artery stent placement (Chronic) PCI-RCA and CX Atherosclerosis of coronary artery of [place] heart without angina pectoris (Chronic) LEFT HEART ASSESSMENT Left Ventricular Ejection Fraction: by LV Gram 10-15 % Global Hypokinesis - Severe Depressed Left Ventricular systolic function Normal Left Ventricular End Diastolic Pressure LEFT MAIN: Non-obstructive LEFT ANTERIOR DECENDING ARTERY: Previously placed stent is patent DIAGONAL 1: Ostial - Mild luminal irregularities less than 30% DIAGONAL 2: Proximal - Non-obstructive CIRCUMFLEX ARTERY: MID CIRC: Previously placed stent is patent RIGHT CORONARY ARTERY: MID RCA: Previously placed stent has instent 20 % restenosis with a new at distal edge of stent Iron deficiency anemia (Chronic) COPD (chronic obstructive pulmonary disease) (Chronic) Tobacco abuse (Chronic) Medical non-compliance (Chronic) Ischemic cardiomyopathy (Chronic) Medical History: Medical History (Last Reviewed 03/17/19 @ 06:40 by Marcus Mi MD) Atherosclerosis of coronary artery of [place] heart without angina pectoris (Chronic) I25.10 LEFT HEART ASSESSMENT Left Ventricular Ejection Fraction: by LV Gram 10-15 % Global Hypokinesis - Severe Depressed Left Ventricular systolic function Normal Left Ventricular End Diastolic Pressure LEFT MAIN: Non-obstructive LEFT ANTERIOR DECENDING ARTERY: Previously placed stent is patent DIAGONAL 1: Ostial - Mild luminal irregularities less than 30% DIAGONAL 2: Proximal - Non-obstructive CIRCUMFLEX ARTERY: MID CIRC: Previously placed stent is patent RIGHT CORONARY ARTERY: MID RCA: Previously placed stent has instent 20 % restenosis with a new at distal edge of stent Acute respiratory failure with hypoxemia (Resolved) J96.01 Iron deficiency anemia (Chronic) D50.9 COPD (chronic obstructive pulmonary disease) (Chronic) J44.9 Tobacco abuse (Chronic) Z72.0 Medical non-compliance (Chronic) Z91.19 Ischemic cardiomyopathy (Chronic) I25.5 Acute on chronic systolic (congestive) heart failure I50.23 Restless leg syndrome G25.81 Acute bronchitis (Resolved) J20.9 COPD exacerbation (Resolved) J44.1 Recent discharge 12/14/17 following treatment for acute on chronic systolic CHF exacerbation, acute COPD exacerbation with acute hypoxic respiratory failure and MRSA HCAP PNA. HCAP (healthcare-associated pneumonia) (Resolved) J18.9 Recent discharge 12/14/17 following treatment for acute on chronic systolic CHF exacerbation, acute COPD exacerbation with acute hypoxic respiratory failure and MRSA HCAP PNA. Hypotension (Resolved) I95.9 MRSA (methicillin resistant Staphylococcus aureus) infection (Resolved) A49.02 Recent discharge 12/14/17 following treatment for acute on chronic systolic CHF exacerbation, acute COPD exacerbation with acute hypoxic respiratory failure and MRSA HCAP PNA. NSVT (nonsustained ventricular tachycardia) (Resolved) I47.2 Near syncope (Resolved) R55 Elevated troponin (Inactive) R74.8 Allergies No Known Allergies Allergy (Verified 03/05/19 11:25) Home Medications: Ambulatory Orders Medication Instructions Recorded Nitroglycerin (INPATIENT USE) 0.4 mg SUBLINGUAL Q5M PRN #1 bottle 12/14/17 [Nitrostat] ferrous gluconate 324 mg (37.5 mg 325 mg PO BIDCM #60 tab 01/15/18 iron) tablet Albuterol Inhaler [Ventolin Hfa] 2 puff INHALATION Q4H PRN PRN #1 10/14/18 inhaler hydroxyzine pamoate 25 mg capsule 25 mg PO TID PRN PRN #30 cap 10/17/18 Naproxen [Naprosyn] 500 mg PO BID PRN #20 tablet 12/04/18 Aspirin [Low Dose Aspirin EC] 81 mg PO DAILY 03/05/19 Atorvastatin Calcium [Lipitor] 80 mg PO QHS 03/05/19 Carvedilol [Coreg (Beta Fletcher)] 6.25 mg PO BID 03/05/19 Clopidogrel Bisulfate [Plavix] 75 mg PO DAILY 03/05/19 Isosorbide Mononitrate [Imdur] 30 mg PO DAILY 03/05/19 Losartan Potassium [Cozaar] 25 mg PO DAILY 03/05/19 Potassium Chloride [K-Dur] 20 meq PO DAILY 03/05/19 furosemide 40 mg tablet 40 mg PO BID@1000,1800 #180 tab 03/06/19 Surgical History: Surgical History (Last Reviewed 03/17/19 @ 06:40 by Marcus Mi MD) ICD (implantable cardioverter-defibrillator) in place (Chronic) Z95.810 History of coronary artery stent placement (Chronic) Z95.5 PCI-RCA and CX History of coronary artery stent placement Z95.5 [id number] and Cx History of left heart catheterization Onset Date: 12/14/17 Z98.890 CORONARY ANGIOGRAPHY DOMINANCE: Right Dominant LEFT HEART ASSESSMENT Left Ventricular Ejection Fraction: by LV Gram 10-15 % Global Hypokinesis - Severe Depressed Left Ventricular systolic function Normal Left Ventricular End Diastolic Pressure LEFT MAIN: Non-obstructive LEFT ANTERIOR DECENDING ARTERY: Previously placed stent is patent DIAGONAL 1: Ostial - Mild luminal irregularities less than 30% DIAGONAL 2: Proximal - Non-obstructive CIRCUMFLEX ARTERY: MID CIRC: Previously placed stent is patent RIGHT CORONARY ARTERY: MID RCA: Previously placed stent has instent 20 % restenosis with a new at distal edge of stent Surgical History: - - PCI x 10-11. ICD placement Smoking Status: Current every day smoker Drugs: None - *Family History Maternal Family History: Family History (Last Reviewed 03/17/19 @ 06:40 by Marcus Mi MD) Father CAD (coronary artery disease) Heart disease Mother CAD (coronary artery disease) Heart disease Aunt Cancer Brother Heart disease Hypertension History Items: Heart Disease Paternal Family History: Family History (Last Reviewed 03/17/19 @ 06:40 by Marcus Mi MD) Father CAD (coronary artery disease) Heart disease Mother CAD (coronary artery disease) Heart disease Aunt Cancer Brother Heart disease Hypertension History Items: Heart Disease Review of Systems Constitutional: Denies: Chills, Fever, Weight Change HEENT: Denies: Head Aches, Sinus Congestion, Sinus Drainage Cardiovascular: Denies: Chest Pain, Palpitations Respiratory: Reports: Cough, Shortness of breath at rest, Sputum production Gastrointestinal: Reports: Vomiting. Denies: Abdominal Pain, Nausea Genitourinary: Denies: Dysuria Musculoskeletal: Denies: Joint Pain, Joint Tenderness Skin: Denies: Rash, Wounds Neurological: Denies: Numbness, Tingling, Focal weakness Psychiatric: Reports: Anxiety. Denies: Depression, Homicidal Ideations, Suicidal Ideations Hematologic/ Lymphatic: Denies: Easy Bruising, Easy Bleeding VTE Information - Inpt Only VTE Present on Admission: No VTE Mechan Device Prophylaxis: None VTE Pharm Prophylaxis ordered?: Yes Patient Problems: Active and Suspected Problems (Last Reviewed 03/17/19 @ 06:40 by Marcus Mi MD) Hypoxia (Acute) COPD with acute exacerbation (Acute) - Physical Exam General: Alert, Oriented x3, Cooperative HEENT: Atraumatic, PERRLA, EOMI, Normocephalic Neck: Supple, No JVD, Negative Carotid Bruits Lungs: Clear to auscultation, Normal air movement, Tachypneic, Using Accessory Muscles, - - Boxlike substance resembling pacemaker/ICD on left chest. Cardiovascular: Regular rate, No murmurs, Tachycardic Abdomen: Bowel Sounds Present, Soft, Non Tender Extremities: No edema, Capillary Refill Less than 3 Seconds Skin: No rashes, No breakdown Musculoskeletal: No Tenderness to Palpation of Joints or Extremities Neurological: Neuro grossly intact Psych/Mental Status: Anxious Vital Signs Temp Pulse Resp BP Pulse Ox 97.8 F 112 H 22 H 138/96 H 93 03/17/19 02:24 03/17/19 02:42 03/17/19 02:42 03/17/19 02:42 03/17/19 02:42 Oxygen Flow Rate (L/min) 4 Oxygen Delivery Method Nasal Cannula Weight: 68.6 kg Body Mass Index (BMI) 23.6 Finger Stick Blood Glucose 130 Laboratory Tests Past 24 Hrs 03/17/19 03/17/19 03/17/19 00:35 00:35 00:35 WBC 7.7 RBC 4.56 L Hgb 11.7 L Hct 36.7 L MCV 80.5 MCH 25.7 L MCHC 31.9 L RDW 18.3 H RDW Differential 53.1 H Plt Count 235 MPV 9.0 Immature Gran % (Auto) 0.300 Neut % (Auto) 76.5 H Lymph % (Auto) 16.3 L Gilliam % (Auto) 4.8 Eos % (Auto) 1.2 Baso % (Auto) 0.9 Absolute Neuts (auto) 5.9 Absolute Lymphs (auto) 1.25 Total Counted Not Reportable Sodium 132 L Potassium 4.5 Chloride 97 L Carbon Dioxide 24.0 Anion Gap 11 BUN 19 H Creatinine 0.96 Estim Creat Clear Calc 76.50 Est GFR (MDRD) Af Amer 103 Est GFR (MDRD) Non-Af 85 BUN/Creatinine Ratio 19.9 Glucose 98 Calcium 8.7 Troponin I 0.045 B-Natriuretic Peptide 3330.8 H Assessment/Plan All Active Problems (Last Reviewed 03/17/19 @ 06:40 by Marcus Mi MD) Unspecified jaundice (Acute) Lactic acidosis (Acute) Sinus tachycardia by electrocardiogram (Acute) Dyspnea (Acute) Leukocytosis (Acute) Hyponatremia (Acute) History of ischemic cardiomyopathy (Acute) Unintentional weight loss (Acute) Hypoxia (Acute) Acute respiratory failure with hypoxia (Acute) Septic shock (Resolved) Severe sepsis (Resolved) Septic shock (Ruled-out) COPD with acute exacerbation (Acute) Acute respiratory failure with hypoxemia (Resolved) Acute bronchitis (Resolved) COPD exacerbation (Resolved) HCAP (healthcare-associated pneumonia) (Resolved) Hypotension (Resolved) MRSA (methicillin resistant Staphylococcus aureus) infection (Resolved) NSVT (nonsustained ventricular tachycardia) (Resolved) Near syncope (Resolved) The patient is a 58 year old M with a significant history of COPD; tobacco ab use; ischemic cardiomyopathy with ejection fraction of 15% status post stents and ICD; who presented to the emergency department with progressively worsening shortness of breath; hypoxia; tachycardia; tachypnea and low-grade fever consistent with acute elevation of COPD. Acute exacerbation of COPD ED doc reported wheezing on exams. At time of my evaluation he was not wheezing CXR independently reviewed confirms no acute cardiopulmonary process. Chest x- ray was independently reviewed. I agree with radiologist interpretation. EKG independently reviewed confirms sinus tachycardia with first-degree AV block. Scheduled DuoNeb Albuterol as needed Solu-Medrol ordered. Received Levaquin at the emergency department. Will change Levaquin IV to p.o. Oxygen as needed Monitor BMP CHF Echocardiogram on 09/27/2018 among others showed estimated EF of 15%. Diastolic function was indeterminate. On presentation his BNP was 3,330.8. Chest x-ray was unremarkable and patient does not have any overt edema. We will continue home Lasix and potassium. Daily weights. Clinical monitoring. Ischemic cardiomyopathy/history of coronary stents/permanent pacemaker and ICD Aspirin Plavix continued. Imdur and losartan continued Hypertension On presentation his blood pressure was not within goal Imdur; Lasix and losartan continued Trend blood pressure and adjust blood pressure medication Hyponatremia On presentation his sodium was 132. Of note patient have had low sodium level in the past. Mild Trend Tobacco abuse: Reported that he is cutting back on smoking. Reported that nicotine patch gives him headache. Counseled. DVT prophylaxis Subcutaneous Lovenox. Code Visit OBSV E&M: [id number] Initial observation care L3
[2019-03-17] MEDS: hydrOXYzine PAM 25 MG Capsule PO (07:11)
--- NOTE | 2019-03-17 07:18 | CPS ---
Pt eliseo, Adam. talked him through Diaphragmatic breathing & called RN for something for his anxiety. Pt refuses I.S., PEP and BIPAP. RN in room now and aware he is refusing BIPAP.
[2019-03-17] MEDS: Aspirin E.C. 81 MG Tablet PO (08:26)
[2019-03-17] MEDS: Ferrous Gluconate 324 MG Tablet PO (08:26)
--- NOTE | 2019-03-17 08:35 | CPS ---
R.T. was called by RN for prn aerosol because pt was saying he can't breath. R.T. came in to room and pt's food tray was on his table. R.T. said she had the aerosol for his breathing that he said was bad, he declined aerosol because he would rather eat. RN aware.
[2019-03-17] MEDS: Enoxaparin 40 MG/0.4 ML Syringe SC (10:33)
[2019-03-17] MEDS: guaiFENesin 1,200 MG Tablet 1200 MG PO (10:34)
[2019-03-17] MEDS: Furosemide 40 MG Tablet PO (10:34)
[2019-03-17] MEDS: Losartan Potassium 25 MG Tablet PO (10:34)
[2019-03-17] MEDS: Carvedilol 6.25 MG Tablet PO (10:34)
[2019-03-17] MEDS: Clopidogrel Bisulfate 75 MG Tablet PO (10:34)
[2019-03-17] MEDS: Isosorbide Mononitrate 30 MG Tablet PO (10:34)
--- NOTE | 2019-03-17 12:57 | CASEMGMT ---
RN CM Assessment Presentation: COPD exacerbation Intro role of CM and purpose of RN CM assessment to patient who is sleepy and only participating minimally in assessment. Friend Burke, who pt lives with is also in room. Friend states he tries to help take care of patient but pt does not do what he's suppose to. Demographics, and Pharmacy verified. PCP: none. Pt has not followed up with Dr. Davis (appointment was made on dc last admission as pt wanted to switch from Dr. Oquendo because he could not get to [facility] and will not be able to f/u as he has missed numerous appointments with this practice.) Call to Dr Davis's office and they cannot schedule appt for pt until end March. Recommedation is pt will need to f/u with [facility]. -information for [facility] given to patient. [facility]erred [facility] Benef[facility]: yes LNOK: Brother, Angel Peralta Living Arrangements: Lives in apartment with friendBurke. Pt takes care of own care needs. Transportation: does not drive, [facility] transportation brochure given to pt. DME: [facility] HHC: none, but is agreeable to Home Health, no preference for agency. Patient DC goals: Home, may benefit from home health DC PLAN: anticipate home on discharge. Would benefit from HHC and may need oxygen, but does not have PCP. Damon ESPINOZAN RN ACM
[2019-03-17] MEDS: 0.9% NaCl Peripheral Flush Adult/Peds IV (12:59)
--- NOTE | 2019-03-17 14:42 | DCINST_ITS ---
- Discharge Diagnoses Current Active Problems: Current Active and Chronic Problems (Last Reviewed 03/17/19 @ 06:40 by Marcus Mi MD) Hypoxia (Acute) COPD exacerbation (Chronic) COPD with acute exacerbation (Acute) You will use the following diet at home:: Cardiac Your food should be the consistency of: Regular Your liquids should be the consistency of: Regular/Thin Discharge Activity: Return to Normal Activity Allergies/Adverse Reactions: Allergies No Known Allergies Allergy (Verified 03/05/19 11:25) Medications to take at Discharge ferrous gluconate 324 mg (37.5 mg iron) tablet 325 mg PO BIDCM #60 tab 01/15/18 Albuterol Inhaler [Ventolin Hfa] 2 puff INHALATION Q4H PRN PRN #1 inhaler 10/14/18 hydroxyzine pamoate 25 mg capsule 25 mg PO TID PRN PRN #30 cap 10/17/18 Aspirin [Low Dose Aspirin EC] 81 mg PO DAILY 03/05/19 Atorvastatin Calcium [Lipitor] 80 mg PO QHS 03/05/19 Carvedilol [Coreg (Beta Fletcher)] 6.25 mg PO BID 03/05/19 Clopidogrel Bisulfate [Plavix] 75 mg PO DAILY 03/05/19 Isosorbide Mononitrate [Imdur] 30 mg PO DAILY 03/05/19 Losartan Potassium [Cozaar] 25 mg PO DAILY 03/05/19 Potassium Chloride [K-Dur] 20 meq PO DAILY 03/05/19 furosemide 40 mg tablet 40 mg PO BID@1000,1800 #180 tab 03/06/19 Prednisone 10 mg PO UD #30 tab 03/17/19 levoFLOXacin tablet [Levaquin tablet] 750 mg PO DAILY #4 tab 03/17/19 The following prescriptions were given: levoFLOXacin tablet [Levaquin tablet] 750 mg PO DAILY #4 tab Prednisone 10 mg PO UD #30 tab Primary Care Physician: Berna Oquendo NP-C [Primary Care Provider] - Please follow up with your Primary Care Physician in: 1-2 weeks Test Results: Test results from this visit will be discussed in further detail at your follow- up appointment, if applicable. Please Follow Up With: Gali Joe PA When: as directed Proposed Discharge Date: 03/17/19
--- NOTE | 2019-03-17 15:19 | CASEMGMT ---
GILL BASS NOTE: Pt has refused to have Walking Oxygen testing repeated and refusing aerosal tx's per MD. Pt being discharged. To room to talk with pt and discuss HHC and PCP. Pt reminded to follow-up with [facility] to get established with PCP and so they can set him up with HHC. Pt stated, [facility] Pt shown the flyer/contact information @ his bedside that was given to him by GILL Morgan. Pt nodded his head. Pt made aware that he needs to be established with PCP in order to get HHC services. Encouraged pt to follow up and go to appts as scheduled. Pt stated, Those doctors arent' going to help me with anything. There's nothing they can do for me. Reinforced importance of seeing PCP for follow-up and so his chronic illnesses can be managed. Lyle SCHMITT RN, CM
--- NOTE | 2019-03-17 16:12 | PCM.DC.SUM ---
Discharge Date and Diagnosis Date of Admission: 03/17/19 Date of Discharge: 03/17/19 - Primary Discharge Diagnosis Acute COPD exacerbation Acute bronchitis Hx ischemic CM, chronic systolic CHF Hx medication noncompliance Hx amphetamine abuse and ongoing nicotine abuse ICD in place CAD prior stents - Secondary Discharge Diagnosis Chronic Problems (Last Reviewed 03/17/19 @ 06:40 by Marcus Mi MD) Anemia, unspecified (Chronic) Amphetamine abuse (Chronic) Chronic respiratory failure with hypoxia (Chronic) COPD exacerbation (Chronic) Acute and chronic respiratory failure with hypoxia (Chronic) Acute on chronic systolic CHF (congestive heart failure) (Chronic) Systolic CHF (Chronic) Elevated troponin (Chronic) ICD (implantable cardioverter-defibrillator) in place (Chronic) History of coronary artery stent placement (Chronic) PCI-RCA and CX Atherosclerosis of coronary artery of [place] heart without angina pectoris (Chronic) LEFT HEART ASSESSMENT Left Ventricular Ejection Fraction: by LV Gram 10-15 % Global Hypokinesis - Severe Depressed Left Ventricular systolic function Normal Left Ventricular End Diastolic Pressure LEFT MAIN: Non-obstructive LEFT ANTERIOR DECENDING ARTERY: Previously placed stent is patent DIAGONAL 1: Ostial - Mild luminal irregularities less than 30% DIAGONAL 2: Proximal - Non-obstructive CIRCUMFLEX ARTERY: MID CIRC: Previously placed stent is patent RIGHT CORONARY ARTERY: MID RCA: Previously placed stent has instent 20 % restenosis with a new at distal edge of stent Iron deficiency anemia (Chronic) COPD (chronic obstructive pulmonary disease) (Chronic) Tobacco abuse (Chronic) Medical non-compliance (Chronic) Ischemic cardiomyopathy (Chronic) Hospital Course and Treatment Imaging Results: RAD/Chest 1 View (Portable) IMPRESSION: Degenerative changes, as described above. No demonstrated acute cardiopulmonary process. Operations: None Procedures: None Summary of Care Provided: Hospital Course: The patient is a 58 year old M with pmhx of above with many admissions and multiple documented instanced of medication noncompliance, ongoing amphetamine and nicotine abuse, who presented to the ER with c/o SOB and wheezing. He was found to be hypoxic in the ER to 70%. CXR was unremarkable and he had no WBC elevation. He had a low grade fever of 100.1. He was placed on bipap however took this off and was considering leaving AMA. He has had no weight gain or increased edema despite an 3000 BNP. He was given aerosols, solumedrol, and levaquin. He was transitioned that night off bipap to NC and was satting 98% on 3lpm. He does not have home o2. He was admitted for observation for acute COPD exacerbation with continued aerosols, steroids, and levaquin. Later that morning he was feeling much improved and desired to go home. He insisted that his problem was that he does not have O2 at home. He was weaned off O2. At rest he was 98%. Nursing walked him in the schmidt and he remained at 98% off O2. We explained that he did not qualify for O2, which he was angry about. He desired to go home and had no further wheezing or O2 need. He was given a prednisone taper, and 4 more days of levaquin. He has albuterol aerosols at home. He was discharged home in stable condition, and needs to follow up with his PCP in 1-2 weeks. This patient was seen by Scott Neumann PA-C under the supervision of Dr. Armenta. [] - Physical Exam General: Alert, Oriented x3, Cooperative HEENT: Atraumatic, PERRLA, EOMI, Normocephalic Neck: Supple, No JVD, Negative Carotid Bruits Lungs: Clear to auscultation, Normal air movement Cardiovascular: Regular rate, No murmurs Abdomen: Bowel Sounds Present, Soft, Non Tender Extremities: No edema, Capillary Refill Less than 3 Seconds Skin: No rashes, No breakdown Musculoskeletal: No Tenderness to Palpation of Joints or Extremities Neurological: Cranial nerves II-XII grossly intact Psych/Mental Status: Normal Affect, Appropriate, Alert and oriented to time, place, person, mood and affect Vital Signs Temp Pulse Resp BP Pulse Ox 97.4 F L 99 22 H 149/104 H 98 03/17/19 10:33 03/17/19 10:33 03/17/19 15:03 03/17/19 10:33 03/17/19 11:27 Oxygen Flow Rate (L/min) 2 Oxygen Delivery Method Nasal Cannula Weight: 139 lb 15.896 oz Body Mass Index (BMI) 21.2 Finger Stick Blood Glucose 130 Intake and Output for Last 24 Hours 03/15/19 03/16/19 03/17/19 23:59 23:59 23:59 Intake Total 480 / 480 Balance 480 / 480 Laboratory Tests Past 24 Hrs 06/03/17/19 03/17/19 00:35 00:35 00:35 WBC 7.7 RBC 4.56 L Hgb 11.7 L Hct 36.7 L MCV 80.5 MCH 25.7 L MCHC 31.9 L RDW 18.3 H RDW Differential 53.1 H Plt Count 235 MPV 9.0 Immature Gran % (Auto) 0.300 Neut % (Auto) 76.5 H Lymph % (Auto) 16.3 L Ramsey % (Auto) 4.8 Eos % (Auto) 1.2 Baso % (Auto) 0.9 Absolute Neuts (auto) 5.9 Absolute Lymphs (auto) 1.25 Total Counted Not Reportable Sodium 132 L Potassium 4.5 Chloride 97 L Carbon Dioxide 24.0 Anion Gap 11 BUN 19 H Creatinine 0.96 Estim Creat Clear Calc 76.50 Est GFR (MDRD) Af Amer 103 Est GFR (MDRD) Non-Af 85 BUN/Creatinine Ratio 19.9 Glucose 98 Calcium 8.7 Troponin I 0.045 B-Natriuretic Peptide 3330.8 H Discharge Diet: Low fat/ Low Cholesterol, 2000 mg Sodium Diet Discharge Activity: Return to Normal Activity Home Medications: Medications to take at Discharge ferrous gluconate 324 mg (37.5 mg iron) tablet 325 mg PO BIDCM #60 tab 01/15/18 Albuterol Inhaler [Ventolin Hfa] 2 puff INHALATION Q4H PRN PRN #1 inhaler 10/14/18 hydroxyzine pamoate 25 mg capsule 25 mg PO TID PRN PRN #30 cap 10/17/18 Aspirin [Low Dose Aspirin EC] 81 mg PO DAILY 03/05/19 Atorvastatin Calcium [Lipitor] 80 mg PO QHS 03/05/19 Carvedilol [Coreg (Beta Fletcher)] 6.25 mg PO BID 03/05/19 Clopidogrel Bisulfate [Plavix] 75 mg PO DAILY 03/05/19 Isosorbide Mononitrate [Imdur] 30 mg PO DAILY 03/05/19 Losartan Potassium [Cozaar] 25 mg PO DAILY 03/05/19 Potassium Chloride [K-Dur] 20 meq PO DAILY 03/05/19 furosemide 40 mg tablet 40 mg PO BID@1000,1800 #180 tab 03/06/19 Prednisone 10 mg PO UD #30 tab 03/17/19 levoFLOXacin tablet [Levaquin tablet] 750 mg PO DAILY #4 tab 03/17/19 Following Prescrptions Were Given to Patient: levoFLOXacin tablet [Levaquin tablet] 750 mg PO DAILY #4 tab Prednisone 10 mg PO UD #30 tab Primary Care Physician: Berna Oquendo NP-C [Primary Care Provider] - Please follow up with your Primary Care Physician in: 1-2 weeks Please Follow Up With: Gali Joe PA When: as directed Please Follow Up With: Berna Oquendo NP-C Disposition: Home Minutes spent on discharge:: 35 Patient Condition:: Stable Medical Necessity - Tobacco Use Smoking Status: Current every day smoker Meaningful Use Info Meaningful Use Diagnoses (Choose all that apply): None applicable
== END 2019-03-17 15:28 | disposition home or self-care (01) ==
LOC: ED 03:29 → MS3 03:59 → PCU 05:07
PROVIDERS: Admitting Provider Hospitalist; Emergency Provider Emergency Medicine; Family Provider Nurse Practitioner Family; PCP Nurse Practitioner Family; Referring Provider Hospitalist; Visit Provider Internal Medicine
DX: J44.1 Chronic obstructive pulmonary disease with (acute) exacerbation (principal); J20.9 Acute bronchitis, unspecified; J44.0 Chronic obstructive pulmonary disease with (acute) lower respiratory infection; I50.23 Acute on chronic systolic (congestive) heart failure; F15.10 Other stimulant abuse, uncomplicated; J96.21 Acute and chronic respiratory failure with hypoxia; D50.9 Iron deficiency anemia, unspecified; I25.5 Ischemic cardiomyopathy; F17.200 Nicotine dependence, unspecified, uncomplicated; I44.0 Atrioventricular block, first degree; I25.10 Atherosclerotic heart disease of native coronary artery without angina pectoris; Z91.14 Patient's other noncompliance with medication regimen; Z79.899 Other long term (current) drug therapy; Z79.02 Long term (current) use of antithrombotics/antiplatelets; Z79.82 Long term (current) use of aspirin; Z95.810 Presence of automatic (implantable) cardiac defibrillator; Z95.5 Presence of coronary angioplasty implant and graft; E87.1 Hypo-osmolality and hyponatremia; F17.210 Nicotine dependence, cigarettes, uncomplicated
CPT/HCPCS: 71045; 80048; 83880; 84484; 85025; 87040; 93005; 94002; 94640; 96365; 96372; 96375; 96376; 97162; 97166; 99218; 99285; 99406; J7050; A4216; G0378

== ENCOUNTER 2019-03-23 23:02 | Inpatient (IN) | payer MEDICARE, MEDICAID, SELFPAY ==
[2019-03-17 04:32] VITALS: BMI 21.2
[2019-03-23 23:04] VITALS: BP 129/84; PULSE 114; RESP 22; TEMP 36.7; O2SAT 77; BMI 23.5
[2019-03-23 23:11] VITALS: O2SAT 87
[2019-03-23 23:14] VITALS: BP 129/84; PULSE 111; RESP 19; TEMP 36.6; O2SAT 87
[2019-03-23 23:15] VITALS: PULSE 112; RESP 14; RESP 36; O2SAT 95
[2019-03-23 23:19] VITALS: BP 124/98; PULSE 112; RESP 23; O2SAT 100
--- NOTE | 2019-03-23 23:24 | CPS ---
PT ARRIVED VIA EMS ON CPAP 12. PT TRANSITIONED TO HOSPITAL PAP AND PLACED ON BILEVEL 18/8 FOR INCREASED SOB. PT TOLERATED WELL.
--- NOTE | 2019-03-23 23:26 | EKG12_ITS ---
Test Reason : SOB Blood Pressure : / mmHG Vent. Rate : 111 BPM Atrial Rate : 111 BPM P-R Int : 164 ms QRS Dur : 114 ms QT Int : 360 ms P-R-T Axes : 069 -65 112 degrees QTc Int : 489 ms Sinus tachycardia Left axis deviation Septal infarct (cited on or before 17-MAR-2019) ST & T wave abnormality, consider lateral ischemia Abnormal ECG Confirmed by PRETTY BARLOW, HIRA ([id number]), telegraph editor JOANNE BROWN ([id number]) on 03/25/2019 7:30:28 AM Referred By: BURTON Confirmed By:HIRA OLSEN MD
[2019-03-23 23:30] VITALS: PULSE 114; RESP 14; RESP 30; O2SAT 97
[2019-03-23] MEDS: Ipratropium/Albuterol Sulfate 3 ML AMPUL.NEB INHALATION (23:30)
--- NOTE | 2019-03-23 23:30 | RAD_ITS ---
HISTORY: INCREASED SOB ADDITIONAL HISTORY: None provided. COMPARISON: 03/17/2019 TECHNIQUE: Frontal chest radiograph. Number of images including paperwork: 1 FINDINGS: LUNGS AND PLEURA: No consolidation, mass or pleural effusion. CARDIAC SILHOUETTE: Stable. MEDIASTINUM AND GLENN: Unchanged aortic calcification and tortuosity. UPPER ABDOMEN: Unremarkable. SKELETON AND SOFT TISSUES: No acute findings. OTHER DEVICES AND HARDWARE: Pacemaker with left-sided generator. RAD/Chest 1 View (Portable) IMPRESSION: No acute cardiopulmonary abnormality. at 0004 Reported and signed by: Chey Jovel MD Electronically Signed: Chey Jovel MD at 0:04 EDT Tel , Service support ,
[2019-03-24] VITALS (23 sets, daily range): BP systolic 121–148; BP diastolic 79–101; PULSE 89–116; RESP 14–28; TEMP 36.6–37.9; O2SAT 79–99; BMI 21.4; BMI 21.5
--- NOTE | 2019-03-24 00:13 | ED.RN ---
Patient refusing to wear his bipap anymore because he wants a drink of water. Explained to the patient the risks and concerns of removing his bipap in his medical state. Patient does not care he wants a drink of water. Dr. Jarquin made aware. Patient requesting to leave AMA at this time. Attempting to convince patient to stay at this time.
--- NOTE | 2019-03-24 00:20 | CPS ---
Pt on room air and refusing BiPAP at this time. Pt refusing blood gas at this time. Dr Jarquin aware.
--- NOTE | 2019-03-24 00:24 | ED.VISSUMM ---
- ER Visit Summary Date of Service: 03/24/19 Chief Complaint: Shortness of breath History of Present Illness: The patient is a 58 M who presents with shortness of breath that became worse tonight. Patient was recently diagnosed with pneumonia but has not taken any of his antibiotics. Patient breathing became worse tonight. Patient states he is coughing up some yellow sputum. Patient admits to subjective fevers and chills. Patient admits to some nausea and vomiting. Patient denies any chest pain. Physical Examination: Vital signs are stable except for tachycardia of 114 and a tachypnea of 22 and a pulse oximeter of 77% on room air. Oral mucosa is pink and moist. Neck is supple. Trachea is midline. Heart was regular and tachycardic. Lung sounds were diminished bilaterally. There is adequate respiratory effort. Abdomen is soft. Bowel sounds are normal. There is no tenderness. Cranial nerves II through XII are intact. There are no focal motor or sensory deficits noted. Test Results: EKG showed sinus tachycardia with a rate of 111. There is T wave inversion in leads I, aVL, V5, and V6. These are unchanged compared to previous EKG dated 03/17/2019. CBC showed a leukocytosis of 12.6. Basic metabolic profile was essentially within normal limits. Troponin was slightly elevated at 0.067. Chest x-ray does not show any acute cardiopulmonary process. Emergency Department Course and Treatment: Patient was placed on BiPAP initially. Patient's pulse oximeter improved to 100% while on BiPAP. Patient became upset and agitated. Patient refused the BiPAP. Patient was able to tolerate nasal cannula oxygen. Patient was given a DuoNeb aerosol initially. Patient was given a repeat albuterol aerosol. Patient was started on Levaquin. Patient was given aspirin. Case was discussed with the hospitalist. Patient will be admitted. Disposition: Admit to hospital Impression: 1. COPD exacerbation 2. Hypoxia 3. Elevated troponin 4. Sepsis This note was generated with [employer] dictation software. It may contain incorrect words, spelling, and punctuation that were not noted in review of the chart prior to signing ED Disposition - Plan for ED Patient: Disposition: Acute Care Hospital [facility] Diagnosis: COPD with acute exacerbation, Elevated troponin, Hypoxia Referrals: Berna Oquendo NP-C [Primary Care Provider] -
[2019-03-24 00:26] LABS: Absolute Lymphocyte Count 0.87 X10^3/ul (0.83-4.51); Absolute Neutrophil Count 10.7 X10^3/uL (2.0-7.7); Basophil# 0.04 X10^3/uL; Basophil% 0.3 % (0-1); Eosinophil# 0.12 X10^3/uL; Hematocrit 38.1 % (40-54); Hemoglobin 12.2 g/dl (13.0-16.5); Lymphocyte # 0.87 X10^3/ul (4.0); Lymphocyte % 6.9 % (19-41); Mean Corpuscular Hgb 25.5 pg (27.0-32.0); Mean Corpuscular Volume 79.7 fL (80-94); Mean Platelet Vol. 9.3 fl (6.2-12.0); Monocyte# 0.74 X10^3/uL; Monocyte% 5.9 % (0-10); Neutrophil # 10.72 X10^3/uL (2.7-7.7); Neutrophil % 85.4 % (47-70); Platelet Count 337 K/mm3 (150-450); RBC Distribution Width CV 18.7 % (11.6-14.6); RBC Distribution Width SD 53.8 fl (35.1-43.9); Red Blood Count 4.78 M/mm3 (4.6-6.2); White Blood Count 12.6 K/mm3 (4.4-11.0)
[2019-03-24 00:27] LABS: Lactic Acid 3.7 mmol/L (0.4-2.0)
--- NOTE | 2019-03-24 00:27 | ED.RN ---
LACTIC ACID OF 3.7 REPORTED TO . VERBALIZES UNDERSTANDING
[2019-03-24 00:28] LABS: POSITIVE COUNT NO; POSITIVE DIFFERENTIAL NO; POSITIVE MORPHOLOGY NO
[2019-03-24 00:43] LABS: Anion Gap 14 (5-15); BUN 23 mg/dL (7-18); Calcium,Total 8.5 mg/dL (8.5-10.1); Chloride 94 mmol/L (98-107); EST Glomerular Filtration Rate 81 mL/min (>60); Est Glom Filt Rate - Afr Amer 98 mL/min (>60); Glucose 86 mg/dL (74-106); Potassium 4.6 mmol/L (3.5-5.1); Sodium Level 133 mmol/L (136-145)
[2019-03-24] MEDS: 0.9% Normal Saline 1,000 ML 150 ML IV (00:44)
[2019-03-24] MEDS: levoFLOXacin IV 750 MG/150 ML BAG 100 MG IV (00:47)
[2019-03-24] MEDS: Albuterol 2.5 MG/3 ML VIAL.NEB. INHALATION (02:20)
--- NOTE | 2019-03-24 02:31 | HP.PCM_ITS ---
Problem List (1) COPD exacerbation Status: Acute (2) Acute respiratory failure with hypoxemia Status: Acute History of Present Illness Date of Admission: 03/24/19 Chief Complaint: sob The patient is a 58 year old M with a significant history of COPD; tobacco abuse; ischemic cardiomyopathy with ejection fraction of 15% status post stents and ICD; who presented to the emergency department with progressively worsening shortness of breath that started on the day of presentation. His shortness of breath did not resolve with his home inhaler and nebulizer treatment. His shortness of breath occurred at rest. Associated with his symptoms is lightheadedness; chills; diaphoresis; near syncope; wheezing; productive cough of thick yellow sputum. Patient called the squad who brought him to the emergency department. The squad put him on bipap. Reportedly upon arrival at the ED his oxygen saturation was 77% on room air. He was placed back on BiPAP. However he took his BiPAP off. His oxygenation improved to 95% on 2 L while at the emergency department. At emergency department his temperature was 100.2 patient was found to have lactic acidosis and elevated troponin. Chest x-ray showed no acute pulmonary process. Of note patient was admitted on 03/17/2019 and discharged on the same day with COPD exacerbation. He notes upon discharge on 03/17/2019 he did not buy his prescribed Levaquin because he did not have money. Past Medical History Past Medical History (Chronic Problems): Chronic Problems (Last Reviewed 03/24/19 @ 04:24 by Marcus Mi MD) Anemia, unspecified (Chronic) Amphetamine abuse (Chronic) Chronic respiratory failure with hypoxia (Chronic) Acute and chronic respiratory failure with hypoxia (Chronic) Acute on chronic systolic CHF (congestive heart failure) (Chronic) Systolic CHF (Chronic) Elevated troponin (Chronic) ICD (implantable cardioverter-defibrillator) in place (Chronic) History of coronary artery stent placement (Chronic) PCI-RCA and CX Atherosclerosis of coronary artery of [place] heart without angina pectoris (Chronic) LEFT HEART ASSESSMENT Left Ventricular Ejection Fraction: by LV Gram 10-15 % Global Hypokinesis - Severe Depressed Left Ventricular systolic function Normal Left Ventricular End Diastolic Pressure LEFT MAIN: Non-obstructive LEFT ANTERIOR DECENDING ARTERY: Previously placed stent is patent DIAGONAL 1: Ostial - Mild luminal irregularities less than 30% DIAGONAL 2: Proximal - Non-obstructive CIRCUMFLEX ARTERY: MID CIRC: Previously placed stent is patent RIGHT CORONARY ARTERY: MID RCA: Previously placed stent has instent 20 % restenosis with a new at distal edge of stent Iron deficiency anemia (Chronic) COPD (chronic obstructive pulmonary disease) (Chronic) Tobacco abuse (Chronic) Medical non-compliance (Chronic) Ischemic cardiomyopathy (Chronic) Medical History: Medical History (Last Reviewed 03/24/19 @ 04:24 by aMrcus Mi MD) Atherosclerosis of coronary artery of [place] heart without angina pectoris (Chronic) I25.10 LEFT HEART ASSESSMENT Left Ventricular Ejection Fraction: by LV Gram 10-15 % Global Hypokinesis - Severe Depressed Left Ventricular systolic function Normal Left Ventricular End Diastolic Pressure LEFT MAIN: Non-obstructive LEFT ANTERIOR DECENDING ARTERY: Previously placed stent is patent DIAGONAL 1: Ostial - Mild luminal irregularities less than 30% DIAGONAL 2: Proximal - Non-obstructive CIRCUMFLEX ARTERY: MID CIRC: Previously placed stent is patent RIGHT CORONARY ARTERY: MID RCA: Previously placed stent has instent 20 % restenosis with a new at distal edge of stent Acute respiratory failure with hypoxemia (Acute) J96.01 Iron deficiency anemia (Chronic) D50.9 COPD (chronic obstructive pulmonary disease) (Chronic) J44.9 Tobacco abuse (Chronic) Z72.0 Medical non-compliance (Chronic) Z91.19 Ischemic cardiomyopathy (Chronic) I25.5 Acute on chronic systolic (congestive) heart failure I50.23 Restless leg syndrome G25.81 Acute bronchitis (Resolved) J20.9 COPD exacerbation (Resolved) J44.1 Recent discharge 12/14/17 following treatment for acute on chronic systolic CHF exacerbation, acute COPD exacerbation with acute hypoxic respiratory failure and MRSA HCAP PNA. HCAP (healthcare-associated pneumonia) (Resolved) J18.9 Recent discharge 12/14/17 following treatment for acute on chronic systolic CHF exacerbation, acute COPD exacerbation with acute hypoxic respiratory failure and MRSA HCAP PNA. Hypotension (Resolved) I95.9 MRSA (methicillin resistant Staphylococcus aureus) infection (Resolved) A49.02 Recent discharge 12/14/17 following treatment for acute on chronic systolic CHF exacerbation, acute COPD exacerbation with acute hypoxic respiratory failure and MRSA HCAP PNA. NSVT (nonsustained ventricular tachycardia) (Resolved) I47.2 Near syncope (Resolved) R55 Elevated troponin (Inactive) R74.8 Allergies No Known Allergies Allergy (Verified 03/23/19 23:04) Home Medications: Ambulatory Orders Medication Instructions Recorded Albuterol Inhaler [Ventolin Hfa] 2 puff INHALATION Q4H PRN PRN #1 10/14/18 inhaler hydroxyzine pamoate 25 mg capsule 25 mg PO TID PRN PRN #30 cap 10/17/18 Aspirin [Low Dose Aspirin EC] 81 mg PO DAILY 03/05/19 Atorvastatin Calcium [Lipitor] 80 mg PO QHS 03/05/19 Carvedilol [Coreg (Beta Fletcher)] 6.25 mg PO BID 03/05/19 Clopidogrel Bisulfate [Plavix] 75 mg PO DAILY 03/05/19 Isosorbide Mononitrate [Imdur] 30 mg PO DAILY 03/05/19 Losartan Potassium [Cozaar] 25 mg PO DAILY 03/05/19 Potassium Chloride [K-Dur] 20 meq PO DAILY 03/05/19 furosemide 40 mg tablet 40 mg PO BID@1000,1800 #180 tab 03/06/19 Ferrous Gluconate 325 mg PO BIDCM 03/24/19 Prednisone 10 mg PO UD 03/24/19 levoFLOXacin tablet [Levaquin 750 mg PO DAILY 03/24/19 tablet] Surgical History: Surgical History (Last Reviewed 03/24/19 @ 04:24 by Marcus Mi MD) ICD (implantable cardioverter-defibrillator) in place (Chronic) Z95.810 History of coronary artery stent placement (Chronic) Z95.5 PCI-RCA and CX History of coronary artery stent placement Z95.5 [id number] and Cx History of left heart catheterization Onset Date: 12/14/17 Z98.890 CORONARY ANGIOGRAPHY DOMINANCE: Right Dominant LEFT HEART ASSESSMENT Left Ventricular Ejection Fraction: by LV Gram 10-15 % Global Hypokinesis - Severe Depressed Left Ventricular systolic function Normal Left Ventricular End Diastolic Pressure LEFT MAIN: Non-obstructive LEFT ANTERIOR DECENDING ARTERY: Previously placed stent is patent DIAGONAL 1: Ostial - Mild luminal irregularities less than 30% DIAGONAL 2: Proximal - Non-obstructive CIRCUMFLEX ARTERY: MID CIRC: Previously placed stent is patent RIGHT CORONARY ARTERY: MID RCA: Previously placed stent has instent 20 % restenosis with a new at distal edge of stent Surgical History: - - PCI x 10-11. ICD placement Psychiatric History: No pertinent psych hx Lives: Roommate Smoking Status: Current every day smoker Tobacco Use: Cigarettes - *Family History Maternal Family History: Family History (Last Reviewed 03/24/19 @ 04:24 by Marcus Mi MD) Father CAD (coronary artery disease) Heart disease Mother CAD (coronary artery disease) Heart disease Aunt Cancer Brother Heart disease Hypertension History Items: Heart Disease Paternal Family History: Family History (Last Reviewed 03/24/19 @ 04:24 by Marcus Mi MD) Father CAD (coronary artery disease) Heart disease Mother CAD (coronary artery disease) Heart disease Aunt Cancer Brother Heart disease Hypertension History Items: Heart Disease Review of Systems Constitutional: Reports: Chills. Denies: Anorexia HEENT: Denies: Head Aches, Sinus Congestion, Sinus Drainage Cardiovascular: Reports: Edema, Light Headedness. Denies: Chest Pain, Palpitations Respiratory: Reports: Cough, Shortness of breath at rest, Sputum production, Wheezing Gastrointestinal: Denies: Abdominal Pain, Nausea, Vomiting Genitourinary: Denies: Dysuria Musculoskeletal: Denies: Joint Pain, Joint Tenderness Skin: Denies: Rash, Wounds Neurological: Denies: Numbness, Tingling, Focal weakness Psychiatric: Denies: Homicidal Ideations, Suicidal Ideations Hematologic/ Lymphatic: Denies: Easy Bruising, Easy Bleeding VTE Information - Inpt Only VTE Present on Admission: No VTE Pharm Prophylaxis ordered?: Yes Patient Problems: Active and Suspected Problems (Last Reviewed 03/24/19 @ 04:24 by Marcus Mi MD) Hypoxia (Acute) COPD with acute exacerbation (Acute) - Physical Exam General: Alert, Oriented x3, Cooperative HEENT: Atraumatic, PERRLA, EOMI, Normocephalic Neck: Supple, No JVD, Negative Carotid Bruits Lungs: Wheezes, - - Conversational dyspnea Cardiovascular: No murmurs, Tachycardic Abdomen: Bowel Sounds Present, Soft, Non Tender Extremities: Capillary Refill Less than 3 Seconds, Edema - Bilateral lower extremity Skin: No rashes, No breakdown Musculoskeletal: No Tenderness to Palpation of Joints or Extremities Neurological: Cranial nerves II-XII grossly intact Psych/Mental Status: Normal Affect, Appropriate Vital Signs Temp Pulse Resp BP Pulse Ox 98.8 F 103 H 22 H 141/91 H 98 03/24/19 01:39 03/24/19 02:20 03/24/19 02:20 03/24/19 01:39 03/24/19 02:20 Oxygen Flow Rate (L/min) 2 Oxygen Delivery Method Nasal Cannula Weight: 70.1 kg Body Mass Index (BMI) 23.5 Finger Stick Blood Glucose 130 Laboratory Tests Past 24 Hrs 03/23/19 03/23/19 03/23/19 23:11 23:11 23:40 WBC 12.6 H RBC 4.78 Hgb 12.2 L Hct 38.1 L MCV 79.7 L MCH 25.5 L MCHC 32.0 RDW 18.7 H RDW Differential 53.8 H Plt Count 337 MPV 9.3 Immature Gran % (Auto) 0.500 Neut % (Auto) 85.4 H Lymph % (Auto) 6.9 L [place] % (Auto) 5.9 Eos % (Auto) 1.0 Baso % (Auto) 0.3 Absolute Neuts (auto) 10.7 H Absolute Lymphs (auto) 0.87 Total Counted Not Reportable Sodium 133 L Potassium 4.6 Chloride 94 L Carbon Dioxide 25.0 Anion Gap 14 BUN 23 H Creatinine 1.00 Estim Creat Clear Calc 76.00 Est GFR (MDRD) Af Amer 98 Est GFR (MDRD) Non-Af 81 BUN/Creatinine Ratio 23.0 H Glucose 86 Lactic Acid 3.7 H Calcium 8.5 Troponin I 0.067 H Assessment/Plan All Active Problems (Last Reviewed 03/24/19 @ 04:24 by Marcus Mi MD) Unspecified jaundice (Acute) Lactic acidosis (Acute) Sinus tachycardia by electrocardiogram (Acute) Dyspnea (Acute) Leukocytosis (Acute) Hyponatremia (Acute) History of ischemic cardiomyopathy (Acute) Unintentional weight loss (Acute) Hypoxia (Acute) COPD exacerbation (Acute) Acute respiratory failure with hypoxia (Acute) Septic shock (Resolved) Severe sepsis (Resolved) Septic shock (Ruled-out) COPD with acute exacerbation (Acute) Acute respiratory failure with hypoxemia (Acute) Acute bronchitis (Resolved) COPD exacerbation (Resolved) HCAP (healthcare-associated pneumonia) (Resolved) Hypotension (Resolved) MRSA (methicillin resistant Staphylococcus aureus) infection (Resolved) NSVT (nonsustained ventricular tachycardia) (Resolved) Near syncope (Resolved) The patient is a 58 year old M with a significant history of COPD; tobacco abuse; ischemic cardiomyopathy with ejection fraction of 15% status post stents and ICD; who presented to the emergency department with progressively worsening shortness of breath that started on the day of presentation; lightheadedness; chills; diaphoresis; near syncope; wheezing; productive cough of thick yellow sputum; oxygen saturation was 77% on room air and previously placed on BiPAP by the paramedics consistent with acute hypoxemic respiratory failure secondary to COPD exacerbation. Acute hypoxemic respiratory failure secondary COPD exacerbation. Noted to meet sepsis criteria with leukocytosis; tachycardia; tachypnea and even with elevated lactic acid. However this may be because of his acute exacerbation of COPD. Chest x-ray did not show infiltrates. On presentation patient with conversational dyspnea; required BiPAP by paramedics; oxygen saturation of 77% on room. Patient improved at the ED and at the time of examination his oxygen saturation was 96% on 2 L. Chest x-ray did not show any acute cardiopulmonary process. Chest x-ray was independently reviewed I agree with radiologist interpretation. We will give Solu-Medrol 125 mg IV x1 and scheduled Solu-Medrol 40 mg every 8 hours. Incentive spirometer and chest physiotherapy ordered. Scheduled DuoNeb and as needed albuterol. Received Levaquin in the emergency department. Levaquin IV continued. Lactic acidosis Likely secondary to acute hypoxemic respiratory failure secondary to COPD. Trend lactic acid. Elevated troponin Likely due to demand ischemia Trend troponin. CHF Echocardiogram on 09/27/2018 among others showed estimated EF of 15%. Diastolic function was indeterminate. On home Lasix and potassium. Daily weights. I Clinical monitoring. Ischemic cardiomyopathy/history of coronary stents/permanent pacemaker and ICD On Aspirin; Plavix; Imdur and losartan Hypertension On presentation his blood pressure was not within goal On Imdur; Lasix; losartan. Trend blood pressure . Hyponatremia On presentation his sodium was 133. Of note patient have had low sodium level in the past. Mild Trend Tobacco abuse: Reported that he is cutting back on smoking. Smokes about 2 sticks of cigarette per day now. Counseled. DVT prophylaxis Subcutaneous Lovenox. \ Code Visit Inpatient E&M: [id number] Init Hosp L3
[2019-03-24] MEDS: Aspirin 81 MG TAB.CHEW 324 MG PO (02:53)
[2019-03-24] MEDS: MethylPREDNISolone 125 MG/2 ML Vial IV (03:33)
[2019-03-24 03:46] LABS: Reflex Lactate? Y
--- NOTE | 2019-03-24 03:58 | NURSING ---
Patient unwilling to be on bipap at this time. Made multiple attempts at explaining this would be the best option for his SOB at this time and it is what the doctor ordered. Patient continually states when ordered to be on previously, RNs do not remove when patient asks and he feels like he is suffocating. I explained to him that I can ask the doctor for something to treat his anxiety and he states he is willing to at least try.
--- NOTE | 2019-03-24 04:12 | NURSING ---
Patient states if doctor is unwilling to order something for his anxiety, he is refusing to wear bipap
[2019-03-24 04:19] LABS: Lactic Acid 1.9 mmol/L (0.4-2.0)
--- NOTE | 2019-03-24 04:24 | NURSING ---
Patient med rec complete using discharge summary medications from 03/17/2019 hospital discharge per doctor's orders
[2019-03-24] MEDS: Ipratropium/Albuterol Sulfate 3 ML AMPUL.NEB INHALATION ×2 (06:37→11:25)
[2019-03-24] MEDS: Enoxaparin 40 MG/0.4 ML Syringe SC (08:23)
[2019-03-24] MEDS: Isosorbide Mononitrate 30 MG Tablet PO (08:23)
[2019-03-24] MEDS: Losartan Potassium 25 MG Tablet PO (08:23)
[2019-03-24] MEDS: Carvedilol 6.25 MG Tablet PO ×2 (08:23→22:36)
[2019-03-24] MEDS: Clopidogrel Bisulfate 75 MG Tablet PO (08:23)
[2019-03-24] MEDS: Aspirin E.C. 81 MG Tablet PO (08:23)
[2019-03-24] MEDS: guaiFENesin 1,200 MG Tablet 1200 MG PO ×2 (08:23→22:36)
[2019-03-24] MEDS: Furosemide 40 MG Tablet PO ×2 (08:23→17:45)
[2019-03-24] MEDS: 0.9% NaCl Peripheral Flush Adult/Peds IV ×3 (08:24→22:36)
[2019-03-24] MEDS: Ferrous Gluconate 324 MG Tablet PO ×2 (08:24→17:44)
[2019-03-24 10:51] LABS: Allen Test POS; Base Excess -2 mmol/L (-2 to +2); Bicarbonate 22.1 mmol/L (22-26); Blood Gas Specimen Type ART; O2 Delivery Device Room Air; PO2 35 mmHG (75-100); SITE L Radial; SO2 71 % (95-99); Time Given 1035; Total Carbon Dioxide 23 mmol/L; pCO2 32.8 mmHg (35-45); pH 7.44 (7.35-7.45)
--- NOTE | 2019-03-24 11:29 | CPS ---
Critical values reported to DR. Burdick
--- NOTE | 2019-03-24 11:41 | CASEMGMT ---
RN CM Assessment Presentation: COPD exacerbation, Acute respiratory failure with hypoxemia Intro role of CM and purpose of RN CM assessment to patient in room. Pt is known to CM and is able to participate in assessment. Pt states he did not grain picker prescriptions because he did not have any money or way to get there. PCP: None. Pt had been set up to see Dr. Davis in past, but did not go to appointment. States he did not have ride, but [facility] transportation information was given to pt each admission. Ling [facility] information had been given to patient also. -Attempted to set pt up with [facility] (visiting physicians) however they are not taking new patients in this area now. Preferred Pharmacy: [facility]. Pt is agreeable to switch from [facility] for discharge scripts as he cannot get to pharmacy. YASMEEN Vazquez updated that pt states he has not been picking up his prescriptions due to cost. Recommend evaluate pt for assist for this dc so he has medications when he leaves hospital. Insurance: Jak MILLER O Prescription Benefit: yes, however pt has difficulty picking prescriptions up. LNOK: Angel Fabian, Brother Transportation: [facility] transportation information given to pt in past. Pt has difficulty remembering and difficulty coordinating. DME: walker, nebulizer. Insurance look up for [facility] providers: [facility] C: cannot provide as pt does not have PCP CCN: referral placed for CCN. Call to Jonny to notify of pt and let her know pt does not have telephone. Patient DC goals: home DC PLAN: Home with CCN follow up. Damon SCHMITT RN ACM
--- NOTE | 2019-03-24 14:37 | CASEMGMT ---
Patient has a Healthcare POA and Healthcare LW on file at [facility]. Nicolasa GUILLAUME FUR TANNER
--- NOTE | 2019-03-24 18:34 | PCM.HOSP.N ---
Hospitalist Note Patient was seen and examined today, I had a blood gas performed on room air which revealed a PO2 of 35, patient's PCO2 was 32.8. Patient will be walked on 2 L to see if this is sufficient to keep his pulse ox above 88%. Currently on 2 L, patient's pulse ox is 99. On examination today, patient's lungs were clear, breath sounds were distant bilaterally. He will continue on his present medications and be reevaluated tomorrow
[2019-03-24] MEDS: levoFLOXacin 750 MG Tablet PO (22:37)
[2019-03-24] MEDS: Atorvastatin Calcium 80 MG Tablet PO (22:37)
[2019-03-25] VITALS (9 sets, daily range): BP systolic 126–130; BP diastolic 60–87; PULSE 74–95; RESP 16–20; TEMP 36.4–36.8; O2SAT 88–98
[2019-03-25] MEDS: 0.9% NaCl Peripheral Flush Adult/Peds IV (06:56)
[2019-03-25 07:30] LABS: Absolute Lymphocyte Count 0.39 X10^3/ul (0.83-4.51); Absolute Neutrophil Count 12.7 X10^3/uL (2.0-7.7); Hematocrit 35.2 % (40-54); Hemoglobin 10.9 g/dl (13.0-16.5); Lymphocyte # 0.39 X10^3/ul (4.0); Lymphocyte % 2.9 % (19-41); Mean Corpuscular Hgb 24.9 pg (27.0-32.0); Mean Corpuscular Volume 80.5 fL (80-94); Monocyte# 0.46 X10^3/uL; Monocyte% 3.4 % (0-10); Neutrophil # 12.69 X10^3/uL (2.7-7.7); Neutrophil % 93.4 % (47-70); Platelet Count 256 K/mm3 (150-450); RBC Distribution Width CV 18.8 % (11.6-14.6); RBC Distribution Width SD 54.8 fl (35.1-43.9); Red Blood Count 4.37 M/mm3 (4.6-6.2); White Blood Count 13.6 K/mm3 (4.4-11.0)
[2019-03-25 07:31] LABS: Differential Indicated SCAN CRITERIA MET; POSITIVE COUNT NO; POSITIVE DIFFERENTIAL YES; POSITIVE MORPHOLOGY NO
[2019-03-25] MEDS: Ipratropium/Albuterol Sulfate 3 ML AMPUL.NEB INHALATION ×2 (07:34→15:18)
[2019-03-25 07:40] LABS: Anion Gap 11 (5-15); BUN 23 mg/dL (7-18); BUN/Creat Ratio 26.1 RATIO (10-20); Calcium,Total 8.1 mg/dL (8.5-10.1); Chloride 99 mmol/L (98-107); Creatinine, Serum 0.88 mg/dL (0.70-1.30); EST Glomerular Filtration Rate 94 mL/min (>60); Est Glom Filt Rate - Afr Amer 113 mL/min (>60); Estimated Creatinine Clearance 83.33 ml/min; Glucose 161 mg/dL (74-106); Potassium 3.7 mmol/L (3.5-5.1); Sodium Level 135 mmol/L (136-145)
[2019-03-25] MEDS: Ferrous Gluconate 324 MG Tablet PO (09:57)
[2019-03-25] MEDS: Carvedilol 6.25 MG Tablet PO (09:57)
[2019-03-25] MEDS: Aspirin E.C. 81 MG Tablet PO (09:57)
[2019-03-25] MEDS: Losartan Potassium 25 MG Tablet PO (09:57)
[2019-03-25] MEDS: Isosorbide Mononitrate 30 MG Tablet PO (09:58)
[2019-03-25] MEDS: Clopidogrel Bisulfate 75 MG Tablet PO (09:58)
[2019-03-25] MEDS: Enoxaparin 40 MG/0.4 ML Syringe SC (09:58)
[2019-03-25] MEDS: Furosemide 40 MG Tablet PO (09:58)
[2019-03-25] MEDS: guaiFENesin 1,200 MG Tablet 1200 MG PO (09:58)
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
[2019-03-25 12:00] LABS: Base Excess -1 mmol/L (-2 to +2); Bicarbonate 23.5 mmol/L (22-26); Blood Gas Specimen Type ART; O2 Delivery Device Room Air; PO2 83 mmHG (75-100); SITE R Brachial; SO2 96 % (95-99); Time Given 1158; Total Carbon Dioxide 25 mmol/L; pCO2 36.1 mmHg (35-45); pH 7.42 (7.35-7.45)
--- NOTE | 2019-03-25 12:03 | CASEMGMT ---
Per Jazz GARLAND, pt does qualify for home oxygen at this time and [place] sent to [facility] [place] this [place] with facesheet and qualifying documentation. Pt is agreeable to all at this time. [facility] is aware that phone number is not accurate for pt on facesheet, voice understanding. Pt states that Sunday or would be a good day for CCN to come out next week and message left with Jonny at [facility] regarding same. Moe GARLAND CM
--- NOTE | 2019-03-25 12:44 | PCM.DC ---
- Discharge Diagnoses Current Active Problems: Current Active and Chronic Problems (Last Reviewed 03/24/19 @ 04:24 by Marcus Mi MD) Hypoxia (Acute) COPD with acute exacerbation (Acute) Elevated troponin (Chronic) You will use the following diet at home:: No restrictions Your food should be the consistency of: Regular Your liquids should be the consistency of: Regular/Thin Discharge Activity: Return to Normal Activity Weight Bearing Status: Full weight bearing Additional Instructions: WEAR OXYGEN AT 2 LITERS PER MIN, DO NOT SMOKE Allergies/Adverse Reactions: Allergies No Known Allergies Allergy (Verified 03/23/19 23:04) Medications to take at Discharge Albuterol Inhaler [Ventolin Hfa] 2 puff INHALATION 4X/DAY #1 inhaler 03/25/19 Aspirin E.C. [Ecotrin] 81 mg PO DAILY #30 tab 03/25/19 Atorvastatin Calcium [Lipitor] 80 mg PO QHS #30 tab 03/25/19 Carvedilol [Coreg (Beta Fletcher)] 6.25 mg PO BID #60 tab 03/25/19 Clopidogrel Bisulfate [Plavix] 75 mg PO DAILY #30 tab 03/25/19 Ferrous Gluconate 324 mg PO BIDCM #30 tab 03/25/19 Furosemide [Lasix] 40 mg PO BID #60 tab 03/25/19 Isosorbide Mononitrate [Imdur] 30 mg PO DAILY #30 tab 03/25/19 Losartan Potassium [Cozaar] 25 mg PO DAILY #30 tab 03/25/19 MethylPREDNISolone DosePak [Medrol DosePak] 4 mg PO UD #1 box 03/25/19 Potassium Chloride [K-Dur] 20 meq PO DAILY #30 tab 03/25/19 The following prescriptions were given: Carvedilol [Coreg (Beta Fletcher)] 6.25 mg PO BID #60 tab Transmission Status: Pending to [facility] Losartan Potassium [Cozaar] 25 mg PO DAILY #30 tab Transmission Status: Pending to [facility] Aspirin E.C. [Ecotrin] 81 mg PO DAILY #30 tab Transmission Status: Pending to [facility] Ferrous Gluconate 324 mg PO BIDCM #30 tab Transmission Status: Pending to [facility] Isosorbide Mononitrate [Imdur] 30 mg PO DAILY #30 tab Transmission Status: Pending to [facility] Potassium Chloride [K-Dur] 20 meq PO DAILY #30 tab Transmission Status: Pending to [facility] Furosemide [Lasix] 40 mg PO BID #60 tab Transmission Status: Pending to [facility] Atorvastatin Calcium [Lipitor] 80 mg PO QHS #30 tab Transmission Status: Pending to [facility] MethylPREDNISolone DosePak [Medrol DosePak] 4 mg PO UD #1 box Transmission Status: Pending to [facility] Clopidogrel Bisulfate [Plavix] 75 mg PO DAILY #30 tab Transmission Status: Pending to [facility] Albuterol Inhaler [Ventolin Hfa] 2 puff INHALATION 4X/DAY #1 inhaler Transmission Status: Pending to [facility] Primary Care Physician: Berna Oquendo NP-C [Primary Care Provider] - Please follow up with your Primary Care Physician in: IN ONE WEEK Test Results: Test results from this visit will be discussed in further detail at your follow-up appointment, if applicable.
--- NOTE | 2019-03-25 12:58 | CASEMGMT ---
In and effort to try and prevent re-admissions SW utilized the prescription assistance program for patient. He has not been filling his prescriptions at discharge and he has numerous hospital admissions. YASMEEN did clear this with SW [employer]. YASMEEN called pharmacy and let them know. YASMEEN also notified patient and RN. YASMEEN also emphasized the importance of working with [facility] as a [employer] Representative can come out and assist him with possibly getting a free phone through government and signing up for [employer]. His roommates phone number is [phone] Nicolasa GUILLAUME MSW
--- NOTE | 2019-03-26 09:43 | PCM.DC.SUM ---
Discharge Date and Diagnosis Date of Admission: 03/24/19 Date of Discharge: 03/25/19 - Primary Discharge Diagnosis #1 acute on chronic hypoxic respiratory failure secondary to chronic obstructive pulmonary disease exacerbation on a backdrop of chronic systolic congestive heart failure and noncompliance with prescribed medications #2 exacerbation of COPD #3 chronic systolic congestive heart failure #4 ischemic cardiomyopathy #5 noncompliance with medical regimen #6 coronary artery disease #7 elevated lactic acid secondary to #1 No evidence for sepsis - Secondary Discharge Diagnosis Chronic Problems (Last Reviewed 03/24/19 @ 04:24 by Marcus Mi MD) Anemia, unspecified (Chronic) Amphetamine abuse (Chronic) Chronic respiratory failure with hypoxia (Chronic) Acute and chronic respiratory failure with hypoxia (Chronic) Acute on chronic systolic CHF (congestive heart failure) (Chronic) Systolic CHF (Chronic) Elevated troponin (Chronic) ICD (implantable cardioverter-defibrillator) in place (Chronic) History of coronary artery stent placement (Chronic) PCI-RCA and CX Atherosclerosis of coronary artery of [place] heart without angina pectoris (Chronic) LEFT HEART ASSESSMENT Left Ventricular Ejection Fraction: by LV Gram 10-15 % Global Hypokinesis - Severe Depressed Left Ventricular systolic function Normal Left Ventricular End Diastolic Pressure LEFT MAIN: Non-obstructive LEFT ANTERIOR DECENDING ARTERY: Previously placed stent is patent DIAGONAL 1: Ostial - Mild luminal irregularities less than 30% DIAGONAL 2: Proximal - Non-obstructive CIRCUMFLEX ARTERY: MID CIRC: Previously placed stent is patent RIGHT CORONARY ARTERY: MID RCA: Previously placed stent has instent 20 % restenosis with a new at distal edge of stent Iron deficiency anemia (Chronic) COPD (chronic obstructive pulmonary disease) (Chronic) Tobacco abuse (Chronic) Medical non-compliance (Chronic) Ischemic cardiomyopathy (Chronic) Hospital Course and Treatment Operations: None Procedures: None Summary of Care Provided: The patient is a 58 year old M who was seen in the emergency room at [facility] with a chief complaint of shortness of breath. Patient is frequently admitted to this hospital due to ischemic cardiomyopathy and chronic systolic congestive heart failure as well as chronic obstructive pulmonary disease. He is noncompliant with medications and when prescribed medications will not pick them up and take them. Work-up in the emergency room showed his pulse ox to be 77% on room air, he was placed on BiPAP and he appeared to stabilize on BiPAP. Work-up in the emergency room included labs which showed an elevated troponin which the patient had had before. His lactic acid was also elevated, chest x-ray showed no evidence of infiltrate-the emergency room physician felt that the patient has sepsis but this examiner felt that the patient did not have sepsis. Patient was admitted to PCU for exacerbation of COPD and acute on chronic hypoxic respiratory failure, he was placed on what was believed to be his home medications and his oxygen saturation was monitored. Patient initially had a blood gas drawn which revealed a PO2 of 35 on room air-however, a subsequent blood gas done the following day showed a PO2 of 83 on room air and so the first blood gas was felt to be a venous blood gas. Patient improved after his admission and treatment on PCU, on 03/25/2019, patient was ambulated on room air and his pulse ox was found to be 88%, this improved to 98% with ambulation on 2 L of oxygen. At rest the patient's oxygen saturation was 96. Patient was set up for home oxygen and was expected to use it in his home and outside of his home when ambulating. On 03/25/2019, patient was seen and examined: On examination he appeared in good health and spirits. Vital signs as documented. Skin warm and dry and without overt rashes. Neck without JVD. Lungs clear but breath sounds are distant. Heart exam notable for regular rhythm, normal sounds and absence of murmurs, rubs or gallops. Abdomen unremarkable and without evidence of organomegaly, masses, or abdominal aortic enlargement. Extremities nonedematous. Neuro: Cranial nerves II through XII are grossly intact, no focal motor deficits were noted, sensation to light touch and pinprick intact. Psych: Patient is alert and oriented x3, he does not appear anxious or depressed He was felt stable for discharge on 03/26/2019-this examiner feels that the likelihood of the patient returning to the hospital is almost certainly due to the patient's noncompliance with his medications. Patient's medications were filled at [facility] pharmacy and were delivered to him personally in his room before he was discharged. - Physical Exam Vital Signs Temp Pulse Resp BP Pulse Ox 98.2 F 89 16 130/76 H 97 03/25/19 14:58 03/25/19 15:18 03/25/19 15:18 03/25/19 14:58 03/25/19 14:58 Oxygen Flow Rate (L/min) [ 2 AMBULATION with Oxygen] Oxygen Flow Rate (L/min) [ 0 AMBULATING on Room Air] Oxygen Flow Rate (L/min) [At 0 REST on Room Air] Oxygen Flow Rate (L/min) 2 Oxygen Delivery Method Nasal Cannula Weight: 66 kg Body Mass Index (BMI) 21.4 Finger Stick Blood Glucose 130 Intake and Output for Last 24 Hours 03/24/19 03/25/19 03/26/19 23:59 23:59 23:59 Intake Total 1360 / 1360 1080 / 1080 Output Total 350 / 350 Balance 1010 / 1010 1080 / 1080 Microbiology Past 72 Hours 03/23/19 23:40 Blood Culture - Preliminary Blood Culture (Wb) #2 - Right Forearm No growth in 48 hours. 03/23/19 23:40 Blood Culture - Preliminary Blood Culture (Wb) - Anticubital Left No growth in 48 hours. Laboratory Tests Past 24 Hrs 03/25/19 11:55 Specimen Type ART Sample Site R Brachial pH 7.42 Bicarbonate Actual 23.5 POC Total CO2 25 Base Excess -1 O2 Saturation 96 ABG pCO2 36.1 ABG pO2 83 Alexis Test NA O2 Delivery Device Room Air Blood Gas Notified Whom [facility] Blood Gas Notified Time 1158 Discharge Activity: Return to Normal Activity Weight Bearing Status: Full weight bearing Home Medications: Medications to take at Discharge Albuterol Inhaler [Ventolin Hfa] 2 puff INHALATION 4X/DAY #1 inhaler 03/25/19 Aspirin E.C. [Ecotrin] 81 mg PO DAILY #30 tab 03/25/19 Atorvastatin Calcium [Lipitor] 80 mg PO QHS #30 tab 03/25/19 Carvedilol [Coreg (Beta Fletcher)] 6.25 mg PO BID #60 tab 03/25/19 Clopidogrel Bisulfate [Plavix] 75 mg PO DAILY #30 tab 03/25/19 Ferrous Gluconate 324 mg PO BIDCM #30 tab 03/25/19 Furosemide [Lasix] 40 mg PO BID #60 tab 03/25/19 Isosorbide Mononitrate [Imdur] 30 mg PO DAILY #30 tab 03/25/19 Losartan Potassium [Cozaar] 25 mg PO DAILY #30 tab 03/25/19 MethylPREDNISolone DosePak [Medrol DosePak] 4 mg PO UD #1 box 03/25/19 Potassium Chloride [K-Dur] 20 meq PO DAILY #30 tab 03/25/19 Following Prescrptions Were Given to Patient: Carvedilol [Coreg (Beta Fletcher)] 6.25 mg PO BID #60 tab Transmission Status: Received by [facility] Losartan Potassium [Cozaar] 25 mg PO DAILY #30 tab Transmission Status: Received by [facility] Aspirin E.C. [Ecotrin] 81 mg PO DAILY #30 tab Transmission Status: Received by [facility] Ferrous Gluconate 324 mg PO BIDCM #30 tab Transmission Status: Received by [facility] Isosorbide Mononitrate [Imdur] 30 mg PO DAILY #30 tab Transmission Status: Received by [facility] Potassium Chloride [K-Dur] 20 meq PO DAILY #30 tab Transmission Status: Received by [facility] Furosemide [Lasix] 40 mg PO BID #60 tab Transmission Status: Received by [facility] Atorvastatin Calcium [Lipitor] 80 mg PO QHS #30 tab Transmission Status: Received by [facility] MethylPREDNISolone DosePak [Medrol DosePak] 4 mg PO UD #1 box Transmission Status: Received by [facility] Clopidogrel Bisulfate [Plavix] 75 mg PO DAILY #30 tab Transmission Status: Received by [facility] Albuterol Inhaler [Ventolin Hfa] 2 puff INHALATION 4X/DAY #1 inhaler Transmission Status: Received by [facility] Primary Care Physician: Berna Oquendo NP-C [Primary Care Provider] - Please follow up with your Primary Care Physician in: IN ONE WEEK Please Follow Up With: Berna Oquendo NP-C Disposition: Home Minutes spent on discharge:: 34 Patient Condition:: Stable Medical Necessity - Tobacco Use Smoking Status: Current every day smoker Tobacco Use: Cigarettes Meaningful Use Info Meaningful Use Diagnoses (Choose all that apply): None applicable Code Visit Inpatient E&M: 72441 Disch Hosp
--- NOTE | 2019-03-26 15:54 | CASEMGMT ---
Case Management DC Follow Up Call: DC Date: 03/25/19 DC Diagnosis: Hypoxia, COPD with Acute Exacerbation DC Disposition: Home with Home Oxygen LACE/STRATA: 11/01 Attempt to call patient per listed Cell number in Demographics, gentleman answered and stated I think you have the wrong number. CM verified dialed number on phone matched what is listed in demographics correctly. Madai Matute RNCM
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
--- NOTE | 2019-04-08 09:30 | CASEMGMT ---
Addendum entered by So Montenegro 04/10/19 09:43: 04/08/19 1030 This RN SHELIA received call from Jonny and she states that Bryan was at pt's home to start [facility] services and per roommates, they state that pt 'just went to the hospital.' Moe GARLAND CM Original Note: This RN SHELIA spoke with Jonny GARLAND from [facility] and she states that they were finally able to connect with pt to set up [facility]. She states that Bryan is to go out with SW today and that they are going to set up goals with pt to f/u w/ PCP, be compliant with meds, and get home oxygen set up within the next 30days. Per call from Yany at [facility], pt still did not have oxygen as they were unable to get ahold of him and had even driven by the home. [facility] states that they will contact [facility] as they are going out today and see if they could come out at the same time. [facility] contact info emailed to Jonny and Bryan at this time. Moe GARLAND CM
== END 2019-03-25 15:51 | disposition home or self-care (01) | DRG 189 ==
LOC: ED 03-24 02:39 → PCU 03-24 02:59
PROVIDERS: Admitting Provider Hospitalist; Emergency Provider Emergency Medicine; Family Provider Nurse Practitioner Family; PCP Nurse Practitioner Family; Visit Provider Internal Medicine
DX: J96.21 Acute and chronic respiratory failure with hypoxia (principal); J44.1 Chronic obstructive pulmonary disease with (acute) exacerbation; E87.2 Acidosis; I50.22 Chronic systolic (congestive) heart failure; I25.10 Atherosclerotic heart disease of native coronary artery without angina pectoris; I25.5 Ischemic cardiomyopathy; Z91.19 Patient's noncompliance with other medical treatment and regimen; Z95.810 Presence of automatic (implantable) cardiac defibrillator; Z95.5 Presence of coronary angioplasty implant and graft; F17.210 Nicotine dependence, cigarettes, uncomplicated
CPT/HCPCS: 36415; 36600; 71045; 80048; 82803; 83605; 84484; 85025; 87040; 93005; 94002; 94003; 94640; 97162; 97166; 97802; 99285; 99406; J7030; A4216

== ENCOUNTER 2019-04-08 09:45 | Inpatient (IN) | payer MEDICARE, MEDICAID, SELFPAY ==
[2019-04-07 12:49] VITALS: BMI 21.4
[2019-04-08] VITALS (38 sets, daily range): BP systolic 96–150; BP diastolic 60–112; PULSE 69–130; RESP 12–94; TEMP 36.2–37.7; O2SAT 35–100; BMI 21.7; BMI 21.1
--- NOTE | 2019-04-08 09:50 | ED.RN ---
Addendum entered by Essence Sim 04/08/19 11:18: PT DUSKY COLOR AND MOTTLING FROM FEET THROUGH THIGHS. Original Note: arrived to ed on cpap. pt hyperventilating.. cpap removed. placed on nc o2 bipap being setup. pt tachepnic and labored breathing. refused bipap/cpap and ventilator. on 6l o2 breathing remains labored. 98% on 6liters. o2. dr hughes, [facility], and nursng explained importance of each to pt continues to refuse respiratory assistance beyond nasal canula o2
--- NOTE | 2019-04-08 10:10 | RAD_ITS ---
STUDY: X-RAY CHEST REASON FOR EXAM: Male, 58 years old. Dyspnea TECHNIQUE: Single AP portable view of the chest. COMPARISON: 03/23/2019 FINDINGS: There is hyperinflation of the lungs consistent with chronic obstructive lung disease (COPD). Development of questionable patchy airspace disease in the right upper lobe and right lower lobe suggesting infection. Left lung is clear. There is no demonstrated pleural abnormality. There is mild cardiac enlargement. Stable left chest wall pacing device Normal mediastinum and alberto. Normal visualized pulmonary arteries. Normal visualized aortic arch and descending thoracic aorta. Normal visualized thoracic spine. Normal visualized ribs, clavicles, and shoulders. There is no demonstrated abnormality of the visualized soft tissue structures of the upper abdomen. RAD/Chest 1 View (Portable) IMPRESSION: Questionable development of patchy airspace disease in the right upper lobe and right lower lobe suggesting infection Electronically Signed: Clark Pacheco DO at 10:46 EDT Tel , Service support ,
--- NOTE | 2019-04-08 10:10 | EKG12_ITS ---
Test Reason : SOB Blood Pressure : / mmHG Vent. Rate : 126 BPM Atrial Rate : 126 BPM P-R Int : 168 ms QRS Dur : 102 ms QT Int : 318 ms P-R-T Axes : 053 -70 100 degrees QTc Int : 460 ms Sinus tachycardia Left axis deviation Septal infarct (cited on or before 17-MAR-2019) ST & T wave abnormality, consider lateral ischemia Abnormal ECG Confirmed by ERON TIRADO ([id number]), food expeditor JOANNE BROWN ([id number]) on 04/10/2019 1:46:24 PM Referred By: Justin Zamarripa Confirmed By:ERON TIRADO
[2019-04-08 10:26] LABS: International Normalized Ratio 1.7; Partial Thromboplast Time 30.3 Seconds (24.1-36.2); Prothrombin Time (Protime)PT. 19.4 SECONDS (11.7-14.9)
[2019-04-08 10:28] LABS: Absolute Lymphocyte Count 1.91 X10^3/ul (0.83-4.51); Absolute Neutrophil Count 9.7 X10^3/uL (2.0-7.7); Basophil# 0.02 X10^3/uL; Basophil% 0.2 % (0-1); Eosinophil# 0.09 X10^3/uL; Eosinophils% 0.7 % (0-5); Hematocrit 39.4 % (40-54); Hemoglobin 12.6 g/dl (13.0-16.5); Lymphocyte # 1.91 X10^3/ul (4.0); Lymphocyte % 15.5 % (19-41); Mean Corpuscular Hgb 25.4 pg (27.0-32.0); Mean Corpuscular Volume 79.4 fL (80-94); Mean Platelet Vol. 9.3 fl (6.2-12.0); Monocyte# 0.59 X10^3/uL; Monocyte% 4.8 % (0-10); Neutrophil % 78.6 % (47-70); POSITIVE COUNT NO; POSITIVE DIFFERENTIAL NO; POSITIVE MORPHOLOGY NO; Platelet Count 215 K/mm3 (150-450); RBC Distribution Width CV 18.6 % (11.6-14.6); RBC Distribution Width SD 53.6 fl (35.1-43.9); Red Blood Count 4.96 M/mm3 (4.6-6.2); White Blood Count 12.3 K/mm3 (4.4-11.0)
[2019-04-08] MEDS: Ipratropium/Albuterol Sulfate 3 ML AMPUL.NEB INHALATION ×4 (10:30→22:34)
[2019-04-08 10:32] LABS: AST(SGOT) 33 U/L (15-37); Alanine Aminotransfer ALT/SGPT 23 U/L (16-61); Alkaline Phosphatase 139 U/L (45-117); Anion Gap 12 (5-15); BUN 19 mg/dL (7-18); BUN/Creat Ratio 20.3 RATIO (10-20); Bilirubin, Direct 0.83 mg/dL (0.00-0.30); Calcium,Total 8.7 mg/dL (8.5-10.1); Chloride 95 mmol/L (98-107); Creatinine, Serum 0.94 mg/dL (0.70-1.30); EST Glomerular Filtration Rate 87 mL/min (>60); Est Glom Filt Rate - Afr Amer 106 mL/min (>60); Estimated Creatinine Clearance 80.97 ml/min; Globulin 4.7 g/dL (2.2-4.2); Glucose 92 mg/dL (74-106); Protein, Total 7.7 g/dL (6.4-8.2); Sodium Level 130 mmol/L (136-145)
[2019-04-08] MEDS: Etomidate 20 MG/10 ML Vial IV (10:35)
[2019-04-08] MEDS: Succinylcholine Chloride 200 MG/10 ML Vial 70 MG IV (10:35)
--- NOTE | 2019-04-08 10:36 | ED.RN ---
pt sedated @1035 with 20 etomidate and @1036 succ. 70 piv left ac. intubate size 8 per marva moser and dr hughes. bilateral lung sounds positive color change with cap. manual bagging per [facility] at lip.
--- NOTE | 2019-04-08 10:45 | RAD_ITS ---
STUDY: X-RAY CHEST REASON FOR EXAM: Male, 58 years old. Endotracheal tube and orogastric tube placement. TECHNIQUE: Single AP portable view of the chest. COMPARISON: Comparison is made with prior chest radiograph done earlier in the day. FINDINGS: An endotracheal tube has been placed. The tip is at 2.7 cm proximal to the zoraida. The tip of the orogastric tube is in the fundal portion of the stomach. Stable patchy infiltrates in the right upper lobe as well as in the left lower lobe and left upper lobe. There is no demonstrated pleural abnormality. There is borderline cardiomegaly. A left-sided unipolar pacemaker is seen. Normal mediastinum and alberto. Normal visualized pulmonary arteries. Normal visualized aortic arch and descending thoracic aorta. Normal visualized thoracic spine. Normal visualized ribs, clavicles, and shoulders. There is no demonstrated abnormality of the visualized soft tissue structures of the upper abdomen. RAD/Chest 1 View (Portable) IMPRESSION: The tip of the endotracheal tube is at 2.7 sinus proximal to the zoraida. The tip of the orogastric tube is in the fundal portion of the stomach. Patchy infiltrate in the right upper lobe as well as in the left upper and left lower lobes. Electronically Signed: Darrick Coreas, at 11:25 EDT , Service support ,
[2019-04-08 10:56] LABS: Base Excess -9 mmol/L (-2 to +2); Bicarbonate 17.6 mmol/L (22-26); Blood Gas Specimen Type ART; FI02 100; PO2 177 mmHG (75-100); SITE R Brachial; SO2 99 % (95-99); Time Given 1045; Total Carbon Dioxide 19 mmol/L; pCO2 35.1 mmHg (35-45); pH 7.31 (7.35-7.45)
[2019-04-08] MEDS: 0.9% Normal Saline 1,000 ML 999 ML IV ×2 (11:04→11:10)
[2019-04-08] MEDS: Propofol 10MG/Ml 1,000 MG/100 ML Bottle 4.11 MG CONT INF (11:04)
--- NOTE | 2019-04-08 11:06 | ED.RN ---
1045- pt restless and tharshing on bed, reexplained to pt while reping diprovan. breathing sounds moist, suctioned. soft restraints applied to upper extremitites 1100-diprovan titrated. pt remains restless and thrashing 1105- pt remains restless. diprovan titrated. 1110. pt appears sedated. no furtner restlessness pf thrashing. [facility] adjusted vent settings [id number] tv 450 peep 5 and fio2 50%
--- NOTE | 2019-04-08 12:32 | NURSING ---
ICU 4 THAO RESP FAILURE, HCAP
[2019-04-08] MEDS: Vancomycin IV 1,000 MG/200 ML BAG 200 MG IV (12:52)
--- NOTE | 2019-04-08 13:01 | HP.PCM_ITS ---
Problem List (1) Acute and chronic respiratory failure with hypoxia Status: Chronic (2) Gram-negative pneumonia Status: Acute (3) COPD exacerbation Status: Chronic History of Present Illness Date of Admission: 04/08/19 Chief Complaint: shortness of breath. The patient is a 58 year old M presents with shortness of breath and tachypnea. History is obtained to emergency room physician as patient is currently intubated and sedated. Patient was tachypneic with respirators in the 30s and 40s and initially stated that he did not want intubation but then rescinded and the patient was intubated. Patient was appearing mottled and was struggling to breathe. Patient had an elevated BNP of 3550. Chest x-ray showed some hazy infiltrates. Patient received vancomycin, Zosyn, IV Lasix and aerosols. This is in addition to succinylcholine, etomidate that he received for his intubation. [] Past Medical History Past Medical History (Chronic Problems): Chronic Problems (Last Reviewed 03/24/19 @ 04:24 by Marcus Mi MD) Acute and chronic respiratory failure with hypoxia (Chronic) COPD exacerbation (Chronic) Anemia, unspecified (Chronic) Amphetamine abuse (Chronic) Chronic respiratory failure with hypoxia (Chronic) Acute and chronic respiratory failure with hypoxia (Chronic) Acute on chronic systolic CHF (congestive heart failure) (Chronic) Systolic CHF (Chronic) Elevated troponin (Chronic) ICD (implantable cardioverter-defibrillator) in place (Chronic) History of coronary artery stent placement (Chronic) PCI-RCA and CX Atherosclerosis of coronary artery of [place] heart without angina pectoris (Chronic) LEFT HEART ASSESSMENT Left Ventricular Ejection Fraction: by LV Gram 10-15 % Global Hypokinesis - Severe Depressed Left Ventricular systolic function Normal Left Ventricular End Diastolic Pressure LEFT MAIN: Non-obstructive LEFT ANTERIOR DECENDING ARTERY: Previously placed stent is patent DIAGONAL 1: Ostial - Mild luminal irregularities less than 30% DIAGONAL 2: Proximal - Non-obstructive CIRCUMFLEX ARTERY: MID CIRC: Previously placed stent is patent RIGHT CORONARY ARTERY: MID RCA: Previously placed stent has instent 20 % restenosis with a new at distal edge of stent Iron deficiency anemia (Chronic) COPD (chronic obstructive pulmonary disease) (Chronic) Tobacco abuse (Chronic) Medical non-compliance (Chronic) Ischemic cardiomyopathy (Chronic) Medical History: Medical History (Last Reviewed 04/08/19 @ 13:04 by Justin Zamarripa DO) Atherosclerosis of coronary artery of [place] heart without angina pectoris (Chronic) I25.10 LEFT HEART ASSESSMENT Left Ventricular Ejection Fraction: by LV Gram 10-15 % Global Hypokinesis - Severe Depressed Left Ventricular systolic function Normal Left Ventricular End Diastolic Pressure LEFT MAIN: Non-obstructive LEFT ANTERIOR DECENDING ARTERY: Previously placed stent is patent DIAGONAL 1: Ostial - Mild luminal irregularities less than 30% DIAGONAL 2: Proximal - Non-obstructive CIRCUMFLEX ARTERY: MID CIRC: Previously placed stent is patent RIGHT CORONARY ARTERY: MID RCA: Previously placed stent has instent 20 % restenosis with a new at distal edge of stent Acute respiratory failure with hypoxemia (Acute) J96.01 Iron deficiency anemia (Chronic) D50.9 COPD (chronic obstructive pulmonary disease) (Chronic) J44.9 Tobacco abuse (Chronic) Z72.0 Medical non-compliance (Chronic) Z91.19 Ischemic cardiomyopathy (Chronic) I25.5 Acute on chronic systolic (congestive) heart failure I50.23 Restless leg syndrome G25.81 Acute bronchitis (Resolved) J20.9 COPD exacerbation (Resolved) J44.1 Recent discharge 12/14/17 following treatment for acute on chronic systolic CHF exacerbation, acute COPD exacerbation with acute hypoxic respiratory failure and MRSA HCAP PNA. HCAP (healthcare-associated pneumonia) (Resolved) J18.9 Recent discharge 12/14/17 following treatment for acute on chronic systolic CHF exacerbation, acute COPD exacerbation with acute hypoxic respiratory failure and MRSA HCAP PNA. Hypotension (Resolved) I95.9 MRSA (methicillin resistant Staphylococcus aureus) infection (Resolved) A49.02 Recent discharge 12/14/17 following treatment for acute on chronic systolic CHF exacerbation, acute COPD exacerbation with acute hypoxic respiratory failure and MRSA HCAP PNA. NSVT (nonsustained ventricular tachycardia) (Resolved) I47.2 Near syncope (Resolved) R55 Elevated troponin (Inactive) R74.8 Allergies No Known Allergies Allergy (Verified 04/08/19 09:46) Home Medications: Ambulatory Orders Medication Instructions Recorded Albuterol Inhaler [Ventolin Hfa] 2 puff INHALATION 4X/DAY #1 inhaler 03/25/19 Aspirin E.C. [Ecotrin] 81 mg PO DAILY #30 tab 03/25/19 Atorvastatin Calcium [Lipitor] 80 mg PO QHS #30 tab 03/25/19 Carvedilol [Coreg (Beta Fletcher)] 6.25 mg PO BID #60 tab 03/25/19 Clopidogrel Bisulfate [Plavix] 75 mg PO DAILY #30 tab 03/25/19 Ferrous Gluconate 324 mg PO BIDCM #30 tab 03/25/19 Furosemide [Lasix] 40 mg PO BID #60 tab 03/25/19 Isosorbide Mononitrate [Imdur] 30 mg PO DAILY #30 tab 03/25/19 Losartan Potassium [Cozaar] 25 mg PO DAILY #30 tab 03/25/19 MethylPREDNISolone DosePak [Medrol 4 mg PO UD #1 box 03/25/19 DosePak] Potassium Chloride [K-Dur] 20 meq PO DAILY #30 tab 03/25/19 Surgical History: Surgical History (Last Reviewed 04/08/19 @ 13:04 by Justin Zamarripa DO) ICD (implantable cardioverter-defibrillator) in place (Chronic) Z95.810 History of coronary artery stent placement (Chronic) Z95.5 PCI-RCA and CX History of coronary artery stent placement Z95.5 ELF-Pbnea-XUR and Cx History of left heart catheterization Onset Date: 12/14/17 Z98.890 CORONARY ANGIOGRAPHY DOMINANCE: Right Dominant LEFT HEART ASSESSMENT Left Ventricular Ejection Fraction: by LV Gram 10-15 % Global Hypokinesis - Severe Depressed Left Ventricular systolic function Normal Left Ventricular End Diastolic Pressure LEFT MAIN: Non-obstructive LEFT ANTERIOR DECENDING ARTERY: Previously placed stent is patent DIAGONAL 1: Ostial - Mild luminal irregularities less than 30% DIAGONAL 2: Proximal - Non-obstructive CIRCUMFLEX ARTERY: MID CIRC: Previously placed stent is patent RIGHT CORONARY ARTERY: MID RCA: Previously placed stent has instent 20 % restenosis with a new at distal edge of stent Surgical History: - Psychiatric History: No pertinent psych hx Smoking Status: Current every day smoker - *Family History Maternal Family History: Family History (Last Reviewed 04/08/19 @ 13:04 by Justin Zamarripa DO) Father CAD (coronary artery disease) Heart disease Mother CAD (coronary artery disease) Heart disease Aunt Cancer Brother Heart disease Hypertension History Items: Heart Disease Paternal Family History: Family History (Last Reviewed 04/08/19 @ 13:04 by Justin Zamarripa DO) Father CAD (coronary artery disease) Heart disease Mother CAD (coronary artery disease) Heart disease Aunt Cancer Brother Heart disease Hypertension History Items: Heart Disease Review of Systems Comment: Please review the HPI for further details. Unable to obtain review systems as patient is intubated and sedated. VTE Information - Inpt Only VTE Present on Admission: No VTE Mechan Device Prophylaxis: None VTE Pharm Prophylaxis ordered?: Yes Patient Problems: Active and Suspected Problems (Last Reviewed 03/24/19 @ 04:24 by Marcus Mi MD) Gram-negative pneumonia (Acute) - Physical Exam General: - - Intubated and sedated. Afebrile. HEENT: Atraumatic, Normocephalic, - - ET tube in place Oral: Moist Mucosa, No Gingival or Mucosal Lesions/ Ulcerations Neck: No Nodes, Thyroid Normal Size and Texture Lungs: - - Coarse breath sounds bilaterally Cardiovascular: Regular rate, Regular Rhythm, Normal S1, Normal S2 Abdomen: Bowel Sounds Present, Soft, Non Tender, Non-Distended, No Hepato- splenomegaly Extremities: No edema, No Calf Tenderness Skin: No rashes, No breakdown Musculoskeletal: No Tenderness to Palpation of Joints or Extremities, No Muscle Wasting Neurological: Deep Tendon Reflexes 2+/4 and Symmetrical, - - No clonus Vital Signs Temp Pulse Resp BP Pulse Ox 37.3 C H 101 H 22 H 125/72 H 99 04/08/19 12:56 04/08/19 12:56 04/08/19 12:56 04/08/19 12:56 04/08/19 12:56 Oxygen Flow Rate (L/min) 6 Oxygen Delivery Method Mechanical Ventilator Weight: 68.5 kg Body Mass Index (BMI) 21.7 Finger Stick Blood Glucose 130 Laboratory Tests Past 24 Hrs 04/08/19 04/08/19 04/08/19 09:55 09:55 09:55 WBC 12.3 H RBC 4.96 Hgb 12.6 L Hct 39.4 L MCV 79.4 L MCH 25.4 L MCHC 32.0 RDW 18.6 H RDW Differential 53.6 H Plt Count 215 MPV 9.3 Immature Gran % (Auto) 0.200 Neut % (Auto) 78.6 H Lymph % (Auto) 15.5 L Frio % (Auto) 4.8 Eos % (Auto) 0.7 Baso % (Auto) 0.2 Absolute Neuts (auto) 9.7 H Absolute Lymphs (auto) 1.91 Total Counted Not Reportable PT 19.4 H INR 1.7 APTT 30.3 Specimen Type Sample Site pH Bicarbonate Actual POC Total CO2 Base Excess O2 Saturation O2 % ABG pCO2 ABG pO2 Alexis Test O2 Delivery Device Blood Gas Notified Whom Blood Gas Notified Time Sodium 130 L Potassium 5.0 Chloride 95 L Carbon Dioxide 23.0 Anion Gap 12 BUN 19 H Creatinine 0.94 Estim Creat Clear Calc 80.97 Est GFR (MDRD) Af Amer 106 Est GFR (MDRD) Non-Af 87 BUN/Creatinine Ratio 20.3 H Glucose 92 Lactic Acid Calcium 8.7 Total Bilirubin 1.60 H Direct Bilirubin 0.83 H AST 33 ALT 23 Alkaline Phosphatase 139 H Troponin I 0.042 B-Natriuretic Peptide Total Protein 7.7 Albumin 3.0 L Globulin 4.7 H 04/08/19 04/08/19 04/08/19 09:55 09:55 10:49 WBC RBC Hgb Hct MCV MCH MCHC RDW RDW Differential Plt Count MPV Immature Gran % (Auto) Neut % (Auto) Lymph % (Auto) Frio % (Auto) Eos % (Auto) Baso % (Auto) Absolute Neuts (auto) Absolute Lymphs (auto) Total Counted PT INR APTT Specimen Type ART Sample Site R Brachial pH 7.31 L Bicarbonate Actual 17.6 L POC Total CO2 19 Base Excess -9 L O2 Saturation 99 O2 % 100 ABG pCO2 35.1 ABG pO2 177 H Alexis Test NA O2 Delivery Device Ambu Blood Gas Notified Whom ED MD Blood Gas Notified Time 1045 Sodium Potassium Chloride Carbon Dioxide Anion Gap BUN Creatinine Estim Creat Clear Calc Est GFR (MDRD) Af Amer Est GFR (MDRD) Non-Af BUN/Creatinine Ratio Glucose Lactic Acid 7.0 H* Calcium Total Bilirubin Direct Bilirubin AST ALT Alkaline Phosphatase Troponin I B-Natriuretic Peptide 3550.0 H Total Protein Albumin Globulin Chest x-ray reviewed and shows some slight patchy infiltrates. Assessment/Plan All Active Problems (Last Reviewed 03/24/19 @ 04:24 by Marcus Mi MD) Gram-negative pneumonia (Acute) Unspecified jaundice (Acute) Lactic acidosis (Acute) Sinus tachycardia by electrocardiogram (Acute) Dyspnea (Acute) Leukocytosis (Acute) Hyponatremia (Acute) History of ischemic cardiomyopathy (Acute) Unintentional weight loss (Acute) Hypoxia (Acute) COPD exacerbation (Acute) Acute respiratory failure with hypoxia (Acute) Septic shock (Resolved) Severe sepsis (Resolved) Septic shock (Ruled-out) COPD with acute exacerbation (Acute) Acute respiratory failure with hypoxemia (Acute) Acute bronchitis (Resolved) COPD exacerbation (Resolved) HCAP (healthcare-associated pneumonia) (Resolved) Hypotension (Resolved) MRSA (methicillin resistant Staphylococcus aureus) infection (Resolved) NSVT (nonsustained ventricular tachycardia) (Resolved) Near syncope (Resolved) 1. Acute hypoxic respiratory failure * Patient had a pulse ox reading of 35, not sure if that was accurate but patient was certainly tachypneic and mottled and had impending respiratory failure clinically before intubation * Due to pneumonia and COPD exacerbation. Clinically, I am not really convinced patient is having acute heart failure exacerbation though the patient does have a very poor ejection fraction of 15%. * Patient be admitted to the ICU and critical care medicine will be consulted for ventilator management 2. Suspected gram-negative pneumonia * Patient will be on vancomycin and Zosyn * Check sputum culture, urine antigens for Streptococcus and Legionella, blood cultures * Pulmonary toilet 3. Acute exacerbation of COPD * Steroids and bronchodilators 4. Heart failure with reduced ejection fraction * EF of 15% from September 27, 2018 * Chest x-ray and clinically patient not convincing for an acute exacerbation of CHF * Patient did receive 80 mg of IV Lasix in the emergency room 5. Sepsis * Present on admission * Difficult to extrapolate changes vital signs related with sepsis versus a respiratory failure * Lactic acid was elevated and that is difficult to extrapolate that from severe sepsis versus acute hypoxic respiratory failure * We will hold off on giving IV fluids at this time given the patient's history of heart failure and additional fluids may initiate his respiratory status 6. Medical noncompliance * Complicates care overall * Patient recently admitted and discharged and upon discharge again will likely be high risk factor for early readmission 7. VTE prophylaxis: High medical risk. Patient will be on Lovenox Code Visit Inpatient E&M: [id number] Init Hosp L3
[2019-04-08] MEDS: fentaNYL drip 100 ML 2.5 MCG CONT INF (13:45)
[2019-04-08 14:14] LABS: Reflex Lactate? Y
--- NOTE | 2019-04-08 14:18 | PCM.RX.CS ---
Consult Pharmacy has been consulted to manage selected antiobiotic: Vancomycin Type of Consult: New start Suspected Infection: Pneumonia Prior Doses of Antibiotics Received/Current Regimen: 1 Labs: Sodium 130 mmol/L (136-145) L 04/08/19 09:55 Potassium 5.0 mmol/L (3.5-5.1) 04/08/19 09:55 Chloride 95 mmol/L (98-107) L 04/08/19 09:55 Carbon Dioxide 23.0 mmol/L (21.0-32.0) 04/08/19 09:55 12 (5-15) 04/08/19 09:55 BUN 19 mg/dL (7-18) H 04/08/19 09:55 0.94 mg/dL (0.70-1.30) 04/08/19 09:55 Est GFR (MDRD) Af Amer 106 mL/min (>60) 04/08/19 09:55 Est GFR (MDRD) Non-Af 87 mL/min (>60) 04/08/19 09:55 20.3 RATIO (10-20) H 04/08/19 09:55 Glucose 92 mg/dL (74-106) 04/08/19 09:55 Weight used for dosin.5 kg Estimated Creatinine Clearance: 81 Goal Trough: 15-20 mcg/mL - VANCOMYCIN IVPB 1250MG Q12H. DRAW TROUGH PRIOR TO 4TH TOTAL DOSE Pharmacy Plan for Drug Dosing: Pharmacy Service will continue to monitor and adjust dosing as required.
[2019-04-08 14:33] LABS: Color, Urine Yellow (Yellow); Glucose, Dipstick Normal (Normal); Ketone-Dipstick 5 mg/dl (Negative); Leukocyte Esterase-Dipstick Negative /ul (Negative); Nitrite-Dipstick Negative (Negative); Occult Blood-Urine 50 /ul (Negative); Protein-Dipstick 30 mg/dl (Negative); Urine Bilirubin Dipstick Negative (Negative); Urine Clarity Clear (Clear); Urine Urobilinogen 1 mg/dl (Normal)
--- NOTE | 2019-04-08 14:40 | PCM.CON.CC ---
Problem List (1) Acute and chronic respiratory failure with hypoxia Status: Chronic (2) Lactic acidosis Status: Acute (3) Sinus tachycardia by electrocardiogram Status: Acute (4) History of ischemic cardiomyopathy Status: Acute (5) Anemia, unspecified Status: Chronic (6) Amphetamine abuse Status: Chronic (7) Chronic respiratory failure with hypoxia Status: Chronic (8) Acute on chronic systolic CHF (congestive heart failure) Status: Chronic (9) ICD (implantable cardioverter-defibrillator) in place Status: Chronic (10) History of coronary artery stent placement Status: Chronic Comment: PCI-RCA and CX (11) Atherosclerosis of coronary artery of [place] heart without angina pectoris Status: Chronic Qualifiers: Coronary Disease-Associated Artery/Lesion type: [place] artery Qualified Code(s): I25.10 - Atherosclerotic heart disease of [place] coronary artery without angina pectoris Comment: LEFT HEART ASSESSMENT Left Ventricular Ejection Fraction: by LV Gram 10-15 % Global Hypokinesis - Severe Depressed Left Ventricular systolic function Normal Left Ventricular End Diastolic Pressure LEFT MAIN: Non-obstructive LEFT ANTERIOR DECENDING ARTERY: Previously placed stent is patent DIAGONAL 1: Ostial - Mild luminal irregularities less than 30% DIAGONAL 2: Proximal - Non-obstructive CIRCUMFLEX ARTERY: MID CIRC: Previously placed stent is patent RIGHT CORONARY ARTERY: MID RCA: Previously placed stent has instent 20 % restenosis with a new at distal edge of stent (12) Tobacco abuse Status: Chronic (13) Medical non-compliance Status: Chronic Reason for Consult Date of Consultation: 04/08/19 Reason for Consultation: Respiratory failure History of Present Illness: The patient is a 58 year old M, with past medical history listed below, who presented to [facility] on 04/08/2019 secondary to shortness of breath and hypoxia. Patient is currently intubated and sedated, so history had to be obtained from the computer. Patient reportedly had presented to the ER with respiratory rate in the 30s to 40s and cyanosis of his legs. Patient reportedly was mottled to his chest and struggling to breathe. Patient had originally stated that he would not want to be intubated and refused BiPAP therapy. However, with further decompensation, had agreed to intubation per ER report. Patient was initiated on vancomycin, Zosyn, IV Lasix and aerosols. Patient did receive rapid sequence intubation and no complications were reported. Patient reportedly has not had any hypotensive episodes and stabilized quickly after being intubated. Patient has had similar presentations in the past. Patient does have a history of systolic congestive heart failure with an EF of 15% in the past. Patient carries a diagnosis of COPD, but has not been seen as an outpatient in [place]. Patient does not have any pulmonary function test for review. Since being in the intensive care unit, patient has stabilized. Patient's oxygenation is doing well on 30% FiO2. Patient cyanosis has regressed to his ankles. Patient is currently sedated with propofol and fentanyl and is unable to provide a review of systems. Past Medical History Past Medical History (Chronic Problems): Chronic Problems (Last Reviewed 04/08/19 @ 13:04 by Justin Zamarripa DO) Acute and chronic respiratory failure with hypoxia (Chronic) COPD exacerbation (Chronic) Anemia, unspecified (Chronic) Amphetamine abuse (Chronic) Chronic respiratory failure with hypoxia (Chronic) Acute and chronic respiratory failure with hypoxia (Chronic) Acute on chronic systolic CHF (congestive heart failure) (Chronic) Systolic CHF (Chronic) Elevated troponin (Chronic) ICD (implantable cardioverter-defibrillator) in place (Chronic) History of coronary artery stent placement (Chronic) PCI-RCA and CX Atherosclerosis of coronary artery of [place] heart without angina pectoris (Chronic) LEFT HEART ASSESSMENT Left Ventricular Ejection Fraction: by LV Gram 10-15 % Global Hypokinesis - Severe Depressed Left Ventricular systolic function Normal Left Ventricular End Diastolic Pressure LEFT MAIN: Non-obstructive LEFT ANTERIOR DECENDING ARTERY: Previously placed stent is patent DIAGONAL 1: Ostial - Mild luminal irregularities less than 30% DIAGONAL 2: Proximal - Non-obstructive CIRCUMFLEX ARTERY: MID CIRC: Previously placed stent is patent RIGHT CORONARY ARTERY: MID RCA: Previously placed stent has instent 20 % restenosis with a new at distal edge of stent Iron deficiency anemia (Chronic) COPD (chronic obstructive pulmonary disease) (Chronic) Tobacco abuse (Chronic) Medical non-compliance (Chronic) Ischemic cardiomyopathy (Chronic) Medical History: Medical History (Last Reviewed 04/08/19 @ 13:04 by Justin Zamarripa DO) Atherosclerosis of coronary artery of [place] heart without angina pectoris (Chronic) I25.10 LEFT HEART ASSESSMENT Left Ventricular Ejection Fraction: by LV Gram 10-15 % Global Hypokinesis - Severe Depressed Left Ventricular systolic function Normal Left Ventricular End Diastolic Pressure LEFT MAIN: Non-obstructive LEFT ANTERIOR DECENDING ARTERY: Previously placed stent is patent DIAGONAL 1: Ostial - Mild luminal irregularities less than 30% DIAGONAL 2: Proximal - Non-obstructive CIRCUMFLEX ARTERY: MID CIRC: Previously placed stent is patent RIGHT CORONARY ARTERY: MID RCA: Previously placed stent has instent 20 % restenosis with a new at distal edge of stent Acute respiratory failure with hypoxemia (Acute) J96.01 Iron deficiency anemia (Chronic) D50.9 COPD (chronic obstructive pulmonary disease) (Chronic) J44.9 Tobacco abuse (Chronic) Z72.0 Medical non-compliance (Chronic) Z91.19 Ischemic cardiomyopathy (Chronic) I25.5 Acute on chronic systolic (congestive) heart failure I50.23 Restless leg syndrome G25.81 Acute bronchitis (Resolved) J20.9 COPD exacerbation (Resolved) J44.1 Recent discharge 12/14/17 following treatment for acute on chronic systolic CHF exacerbation, acute COPD exacerbation with acute hypoxic respiratory failure and MRSA HCAP PNA. HCAP (healthcare-associated pneumonia) (Resolved) J18.9 Recent discharge 12/14/17 following treatment for acute on chronic systolic CHF exacerbation, acute COPD exacerbation with acute hypoxic respiratory failure and MRSA HCAP PNA. Hypotension (Resolved) I95.9 MRSA (methicillin resistant Staphylococcus aureus) infection (Resolved) A49.02 Recent discharge 12/14/17 following treatment for acute on chronic systolic CHF exacerbation, acute COPD exacerbation with acute hypoxic respiratory failure and MRSA HCAP PNA. NSVT (nonsustained ventricular tachycardia) (Resolved) I47.2 Near syncope (Resolved) R55 Elevated troponin (Inactive) R74.8 Allergies No Known Allergies Allergy (Verified 04/08/19 09:46) Home Medications: Ambulatory Orders Medication Instructions Recorded Albuterol Inhaler [Ventolin Hfa] 2 puff INHALATION 4X/DAY #1 inhaler 03/25/19 Aspirin E.C. [Ecotrin] 81 mg PO DAILY #30 tab 03/25/19 Atorvastatin Calcium [Lipitor] 80 mg PO QHS #30 tab 03/25/19 Carvedilol [Coreg (Beta Fletcher)] 6.25 mg PO BID #60 tab 03/25/19 Clopidogrel Bisulfate [Plavix] 75 mg PO DAILY #30 tab 03/25/19 Ferrous Gluconate 324 mg PO BIDCM #30 tab 03/25/19 Furosemide [Lasix] 40 mg PO BID #60 tab 03/25/19 Isosorbide Mononitrate [Imdur] 30 mg PO DAILY #30 tab 03/25/19 Losartan Potassium [Cozaar] 25 mg PO DAILY #30 tab 03/25/19 MethylPREDNISolone DosePak [Medrol 4 mg PO UD #1 box 03/25/19 DosePak] Potassium Chloride [K-Dur] 20 meq PO DAILY #30 tab 03/25/19 Surgical History: Surgical History (Last Reviewed 04/08/19 @ 13:04 by Justin Zamarripa DO) ICD (implantable cardioverter-defibrillator) in place (Chronic) Z95.810 History of coronary artery stent placement (Chronic) Z95.5 PCI-RCA and CX History of coronary artery stent placement Z95.5 [id number]-LDG and Cx History of left heart catheterization Onset Date: 12/14/17 Z98.890 CORONARY ANGIOGRAPHY DOMINANCE: Right Dominant LEFT HEART ASSESSMENT Left Ventricular Ejection Fraction: by LV Gram 10-15 % Global Hypokinesis - Severe Depressed Left Ventricular systolic function Normal Left Ventricular End Diastolic Pressure LEFT MAIN: Non-obstructive LEFT ANTERIOR DECENDING ARTERY: Previously placed stent is patent DIAGONAL 1: Ostial - Mild luminal irregularities less than 30% DIAGONAL 2: Proximal - Non-obstructive CIRCUMFLEX ARTERY: MID CIRC: Previously placed stent is patent RIGHT CORONARY ARTERY: MID RCA: Previously placed stent has instent 20 % restenosis with a new at distal edge of stent Surgical History: - Psychiatric History: No pertinent psych hx Smoking Status: Current every day smoker - *Family History Maternal Family History: Family History (Last Reviewed 04/08/19 @ 13:04 by Justin Zamarripa DO) Father CAD (coronary artery disease) Heart disease Mother CAD (coronary artery disease) Heart disease Aunt Cancer Brother Heart disease Hypertension History Items: Heart Disease Paternal Family History: Family History (Last Reviewed 04/08/19 @ 13:04 by Justin Zamarripa DO) Father CAD (coronary artery disease) Heart disease Mother CAD (coronary artery disease) Heart disease Aunt Cancer Brother Heart disease Hypertension History Items: Heart Disease Review of Systems Unable to obtain accurate/complete ROS d/t: Intubated and sedated Patient Problems: Active and Suspected Problems (Last Reviewed 04/08/19 @ 13:04 by Justin Zamarripa DO) Gram-negative pneumonia (Acute) Objective: Patient has no pulmonary function test currently in the computer for review. Patient has missed [address] Ahmadi to establish care. Patient did have an echocardiogram on 09/27/2018 showing an EF of 15% with mild global right ventricular systolic dysfunction, 2+ MVR, 2+ TVR and right ventricular systolic pressure of 65 mmHg. Patient did have a possible small ASD noted. - Physical Exam General: - - RASS -2. Appears older than stated age. Good vent synchrony noted. HEENT: Atraumatic, PERRLA, EOMI, Normocephalic, - - No scleral icterus or injection noted. Oral: Moist Mucosa, No Gingival or Mucosal Lesions/ Ulcerations Neck: Supple, No Nodes, Trachea Midline, JVD, Right Lungs: No rhonchi, No rales, Diminished, Wheezes - Wheezing at end exhalation only Cardiovascular: Regular rate, Regular Rhythm, Normal S1, Normal S2, Murmur - Grade 2 out of 6 systolic ejection murmur at the left sternal border, No rub noted, No Gallop Abdomen: Bowel Sounds Present, Soft, Non Tender, Non-Distended Extremities: Clubbing, Cyanosis - To the ankle bilateral, Diminished Peripheral Pulses, Edema - Trace bilateral lower extremities Skin: No rashes, No breakdown Musculoskeletal: No Tenderness to Palpation of Joints or Extremities Lymphatic: No Cervical, Supraclavicular, or Inguinal Adenopathy Neurological: Cranial nerves II-XII grossly intact, Neuro grossly intact, Motor Exam 5/5 strength throughout Psych/Mental Status: Flat Affect Vital Signs Temp Pulse Resp BP Pulse Ox 37.3 C H 93 22 H 125/72 H 100 04/08/19 12:56 04/08/19 13:45 04/08/19 13:45 04/08/19 12:56 04/08/19 13:45 Oxygen Flow Rate (L/min) 6 Oxygen Delivery Method Mechanical Ventilator Weight: 68.5 kg Body Mass Index (BMI) 21.7 Finger Stick Blood Glucose 130 Laboratory Tests Past 24 Hrs 04/08/19 04/08/19 04/08/19 09:55 09:55 09:55 WBC 12.3 H RBC 4.96 Hgb 12.6 L Hct 39.4 L MCV 79.4 L MCH 25.4 L MCHC 32.0 RDW 18.6 H RDW Differential 53.6 H Plt Count 215 MPV 9.3 Immature Gran % (Auto) 0.200 Neut % (Auto) 78.6 H Lymph % (Auto) 15.5 L [place] % (Auto) 4.8 Eos % (Auto) 0.7 Baso % (Auto) 0.2 Absolute Neuts (auto) 9.7 H Absolute Lymphs (auto) 1.91 Total Counted Not Reportable PT 19.4 H INR 1.7 APTT 30.3 Specimen Type Sample Site pH Bicarbonate Actual POC Total CO2 Base Excess O2 Saturation O2 % ABG pCO2 ABG pO2 Alexis Test O2 Delivery Device Blood Gas Notified Whom Blood Gas Notified Time Sodium 130 L Potassium 5.0 Chloride 95 L Carbon Dioxide 23.0 Anion Gap 12 BUN 19 H Creatinine 0.94 Estim Creat Clear Calc 80.97 Est GFR (MDRD) Af Amer 106 Est GFR (MDRD) Non-Af 87 BUN/Creatinine Ratio 20.3 H Glucose 92 Lactic Acid Calcium 8.7 Total Bilirubin 1.60 H Direct Bilirubin 0.83 H AST 33 ALT 23 Alkaline Phosphatase 139 H Troponin I 0.042 B-Natriuretic Peptide Total Protein 7.7 Albumin 3.0 L Globulin 4.7 H Urine Color Urine Clarity Urine pH Ur Specific [place] Urine Protein Urine Glucose (UA) Urine Ketones Urine Occult Blood Urine Nitrite Urine Bilirubin Urine Urobilinogen Ur Leukocyte Esterase 04/08/19 04/08/19 04/08/19 09:55 09:55 10:49 WBC RBC Hgb Hct MCV MCH MCHC RDW RDW Differential Plt Count MPV Immature Gran % (Auto) Neut % (Auto) Lymph % (Auto) [place] % (Auto) Eos % (Auto) Baso % (Auto) Absolute Neuts (auto) Absolute Lymphs (auto) Total Counted PT INR APTT Specimen Type ART Sample Site R Brachial pH 7.31 L Bicarbonate Actual 17.6 L POC Total CO2 19 Base Excess -9 L O2 Saturation 99 O2 % 100 ABG pCO2 35.1 ABG pO2 177 H Alexis Test NA O2 Delivery Device Ambu Blood Gas Notified Whom ED Blood Gas Notified Time 1045 Sodium Potassium Chloride Carbon Dioxide Anion Gap BUN Creatinine Estim Creat Clear Calc Est GFR (MDRD) Af Amer Est GFR (MDRD) Non-Af BUN/Creatinine Ratio Glucose Lactic Acid 7.0 H* Calcium Total Bilirubin Direct Bilirubin AST ALT Alkaline Phosphatase Troponin I B-Natriuretic Peptide 3550.0 H Total Protein Albumin Globulin Urine Color Urine Clarity Urine pH Ur Specific [place] Urine Protein Urine Glucose (UA) Urine Ketones Urine Occult Blood Urine Nitrite Urine Bilirubin Urine Urobilinogen Ur Leukocyte Esterase 04/08/19 14:15 WBC RBC Hgb Hct MCV MCH MCHC RDW RDW Differential Plt Count MPV Immature Gran % (Auto) Neut % (Auto) Lymph % (Auto) [place] % (Auto) Eos % (Auto) Baso % (Auto) Absolute Neuts (auto) Absolute Lymphs (auto) Total Counted PT INR APTT Specimen Type Sample Site pH Bicarbonate Actual POC Total CO2 Base Excess O2 Saturation O2 % ABG pCO2 ABG pO2 Alexis Test O2 Delivery Device Blood Gas Notified Whom Blood Gas Notified Time Sodium Potassium Chloride Carbon Dioxide Anion Gap BUN Creatinine Estim Creat Clear Calc Est GFR (MDRD) Af Amer Est GFR (MDRD) Non-Af BUN/Creatinine Ratio Glucose Lactic Acid Calcium Total Bilirubin Direct Bilirubin AST ALT Alkaline Phosphatase Troponin I B-Natriuretic Peptide Total Protein Albumin Globulin Urine Color Yellow Urine Clarity Clear Urine pH 5.0 Ur Specific [place] 1.020 Urine Protein 30 H Urine Glucose (UA) Normal Urine Ketones 5 H Urine Occult Blood 50 H Urine Nitrite Negative Urine Bilirubin Negative Urine Urobilinogen 1 H Ur Leukocyte Esterase Negative Clinical Impression(s) from Imaging Studies Chest X-Ray 04/08/19 10:10 IMPRESSION: Questionable development of patchy airspace disease in the right upper lobe and right lower lobe suggesting infection Electronically Signed: Clark Pacheco DO at 10:46 EDT Tel , Service support , Chest X-Ray 04/08/19 10:45 IMPRESSION: The tip of the endotracheal tube is at 2.7 sinus proximal to the zoraida. The tip of the orogastric tube is in the fundal portion of the stomach. Patchy infiltrate in the right upper lobe as well as in the left upper and left lower lobes. Electronically Signed: Darrick Coreas, at 11:25 EDT , Service support , Assessment/Plan Active and Suspected Problems (Last Reviewed 04/08/19 @ 13:04 by Justin Zamarripa DO) Gram-negative pneumonia (Acute) RECOMMENDATIONS: 1. Continue diuresis 2. Agree with empiric antibiotics and steroids until cultures can be obtained 3. Wean oxygen as tolerated 4. Spontaneous breathing and awakening trials per protocol 5. Attempt to obtain better information from family members when available IMPRESSIONS: 1. Acute hypoxic respiratory failure Unclear etiology at this time. Patient reportedly does have a history of COPD, but it is unclear if patient had prodromal symptoms such as fever or productive cough. Patient does have a significantly elevated BNP and lung sounds have improved significantly from what was reported in the ER with positive pressure. This would be consistent with flash pulmonary edema. Will obtain information from family members if available. Patient will have spontaneous awakening and breathing trials per protocol. Agree with empiric antibiotics until further information is available. Continue with pulmonary toileting. Patient does not have significant wheezing on exam at this time, so may be able to transition to prednisone therapy relatively quickly. BMP is not suggestive of CO2 retention at baseline. 2. Suspected acute on chronic systolic congestive heart failure Patient does have an EF of 15% with elevated BNP on presentation. Bilateral infiltrates may be secondary to pulmonary congestion. Patient does have a response to Lasix therapy given in the emergency room. If patient starts to have difficulty with spontaneous breathing trial, additional Lasix may be indicated. Doubt repeat echocardiogram would be helpful acutely as heart function is so depressed at baseline. 3. Sepsis Unclear etiology. Patient does have cloudy urine noted. This may have increased metabolic demand leading to decompensation. Agree with holding IV fluids as patient is currently normotensive. Monitor urine output. Patient's renal function is currently at baseline. Lactic acid of 7 may be secondary to presenting hypoxemia. 4. Hyponatremia Unclear etiology. Clinical suspicion for hypervolemic hyponatremia. Patient was reportedly not having any complications such as seizure activity. We will continue to monitor, but would not recommend 3% saline at this time. 5. History of noncompliance/tobacco abuse/reported history of amphetamine use Complicates care, management, recovery and prognosis. Tox screen was not obtained in the ER and patient is already received propofol and fentanyl. Can apply nicotine patch if patient so signs of withdrawal. TIME: 40 minutes critical care time spent addressing patient's acute hypoxic respiratory failure, congestive heart failure, sepsis, hyponatremia, reviewed all data and collaboration with care team (2 PM to 3:10 PM) Code Visit 9xxxx: [id number] Critical care first hour
[2019-04-08 14:46] LABS: Bedside Glucose 74 mg/dL (70-110)
--- NOTE | 2019-04-08 15:18 | ED.DCSUM_ITS ---
- ER Visit Summary Date of Service: 04/08/19 Chief Complaint: Respiratory failure History of Present Illness: The patient is a 58 M arriving by EMS. Patient has a history of COPD congestive heart failure ejection fraction 15 to 20%. History of medical noncompliance. Patient was recently admitted on 624 for COPD exacerbation. Patient tells me he is adamant he does not wish to wear BiPAP or CPAP, he does not wish intubation, he does not wish CPR. Patient also states he wants us to help him. He denies any recent fevers. Symptoms became severe this morning. Physical Examination: 150/105 temperature 98.2 heart rate 127 respirations are 39 pulse ox is 94% on handheld BiPAP. Gen: Well-nourished well-developed disheveled he appears to be fatiguing Head: Normocephalic atraumatic Eyes: Perrl EOMI ENT: TMs clear no rhinorrhea moist mucous membranes Neck: Supple no lymphadenopathy no JVD nontender CVS: Regular rate tachycardic rhythm no murmurs normal S1-S2 Respiratory: Patient is in respiratory extremis. He has rhonchi/rales throughout all lung crews. Chest nontender Abdomen: Soft nontender nondistended normal bowel sounds no masses Back: Nontender Extremity: Nontender no edema Skin: Patient has mottling of the arms and legs as well as the abdomen and chest Neuro: Patient is alert and orientated x3. Psych: Patient appears scared Test Results: Chest x-ray shows probable infiltrates on multi lobes. Repeat chest x-ray shows the endotracheal tube to be in adequate position. White count elevated 12.3 hemoglobin 12.6. pH 7.3 bicarb 17.6 PaO2 177 PCO2 35 troponin 0 0.04 BNP is 3550 which is not too far from baseline Emergency Department Course and Treatment: I sat at the patient's bedside and informed patient that if he does not wish to do BiPAP or intubation he will most likely succumb and . At this point he asked me to call his brother. I called his brother left the message never heard back. I went and talked with patient some more offered him hospice and he states that he is not ready to and that he would like to be intubated. Rapid sequence intubation using etomidate and succinylcholine was undertaken and the endotracheal tube was placed on the first attempt without any difficulty. Patient's lung sounds significantly improved and after fluids and continued oxygenation his skin changes did improve his also. Because of his recent admission and the findings on chest x-ray went ahead and administered Zosyn and vancomycin. I have held off on Lasix as his symptomatology appears to be rapidly improving. I spoke with Dr. Uriarte from intensive care and our hospitalist will be admitting. Impression: 1. Acute on chronic respiratory failure 2. Elevated lactic acid 3. Intubation by physician 4. Critical care time 35 minutes This note was generated with [employer] dictation software. It may contain incorrect words, spelling, and punctuation that were not noted in review of the chart prior to signing ED Disposition - Plan for ED Patient: Disposition: Acute Care [facility]
[2019-04-08 15:28] LABS: Lactic Acid 1.7 mmol/L (0.4-2.0)
[2019-04-08] MEDS: Carvedilol 6.25 MG Tablet NG (15:43)
[2019-04-08] MEDS: Ferrous Gluconate 324 MG Tablet PO (15:43)
[2019-04-08 18:07] LABS: Triglycerides 59 mg/dL
[2019-04-08 18:09] LABS: CPK Total, Creatine Kinase 177 U/L (39-308)
[2019-04-08] MEDS: Propofol 10MG/Ml 1,000 MG/100 ML Bottle 5.841 MG CONT INF (20:25)
[2019-04-08] MEDS: Atorvastatin Calcium 80 MG Tablet NG (22:56)
[2019-04-08] MEDS: Chlorhexidine 15 ML PO (22:56)
[2019-04-08] MEDS: 0.9% NaCl Peripheral Flush Adult/Peds IV (23:10)
[2019-04-09] VITALS (27 sets, daily range): BP systolic 84–118; BP diastolic 52–70; PULSE 63–93; RESP 10–20; TEMP 36.1–37.1; O2SAT 93–100
[2019-04-09] MEDS: Ipratropium/Albuterol Sulfate 3 ML AMPUL.NEB INHALATION ×6 (02:04→23:07)
[2019-04-09 05:11] LABS: Anion Gap 10 (5-15); BUN 18 mg/dL (7-18); BUN/Creat Ratio 28.2 RATIO (10-20); Calcium,Total 7.7 mg/dL (8.5-10.1); Chloride 105 mmol/L (98-107); Creatinine, Serum 0.64 mg/dL (0.70-1.30); EST Glomerular Filtration Rate 136 mL/min (>60); Est Glom Filt Rate - Afr Amer 164 mL/min (>60); Estimated Creatinine Clearance 110.76 ml/min; Glucose 102 mg/dL (74-106); Potassium 3.6 mmol/L (3.5-5.1); Sodium Level 140 mmol/L (136-145)
[2019-04-09 05:16] LABS: Absolute Lymphocyte Count 0.28 X10^3/ul (0.83-4.51); Absolute Neutrophil Count 9.1 X10^3/uL (2.0-7.7); Hematocrit 35.4 % (40-54); Hemoglobin 11.4 g/dl (13.0-16.5); Lymphocyte # 0.28 X10^3/ul (4.0); Lymphocyte % 2.9 % (19-41); Mean Corp Hgb Conc 32.2 g/gl (32-36); Mean Corpuscular Hgb 24.9 pg (27.0-32.0); Mean Corpuscular Volume 77.5 fL (80-94); Mean Platelet Vol. 9.6 fl (6.2-12.0); Monocyte# 0.15 X10^3/uL; Monocyte% 1.6 % (0-10); Neutrophil # 9.12 X10^3/uL (2.7-7.7); Neutrophil % 95.3 % (47-70); Platelet Count 185 K/mm3 (150-450); RBC Distribution Width CV 18.7 % (11.6-14.6); RBC Distribution Width SD 50.6 fl (35.1-43.9); Red Blood Count 4.57 M/mm3 (4.6-6.2); White Blood Count 9.6 K/mm3 (4.4-11.0)
[2019-04-09] MEDS: 0.9% NaCl IVPB Med Flush (250 mL) 15 ML IV (05:27)
[2019-04-09] MEDS: CHLORHEXIDINE GLUC 2% CLOTH 1 EACH TOWELETTE TOPICAL (05:28)
[2019-04-09] MEDS: 0.9% NaCl Peripheral Flush Adult/Peds IV (05:28)
[2019-04-09 05:29] LABS: Differential Indicated SCAN CRITERIA MET; POSITIVE COUNT NO; POSITIVE DIFFERENTIAL YES; POSITIVE MORPHOLOGY NO
[2019-04-09 05:55] LABS: Crenated RBC 1+; Differential Comment SCANNED; Hypochromasia 1+; Macrocytosis 1+; Ovalocyte 2+
[2019-04-09 06:15] LABS: Allen Test POS; Base Excess 0 mmol/L (-2 to +2); Bicarbonate 24.4 mmol/L (22-26); Blood Gas Specimen Type ART; FI02 25; Mode CPAP PS; O2 Delivery Device Vent; PEEP 5; PO2 79 mmHG (75-100); PS 5; SITE L Radial; SO2 96 % (95-99); Time Given 603; Total Carbon Dioxide 25 mmol/L; pCO2 37.1 mmHg (35-45); pH 7.43 (7.35-7.45)
--- NOTE | 2019-04-09 06:39 | NURSING ---
Pt extubated by RT with this RN at bedside. Placed on 2L NC, minimal amount of secretions, cough strong and intact, vocal cords and gag intact. Tolerating well. OG discontinued. Lungs CTA b/l.
--- NOTE | 2019-04-09 07:53 | PCM.PN.INT ---
Subjective: Patient did well overnight. Patient was on minimal oxygen requirements overnight. No hypotension or fever was reported. Patient has had scant respiratory secretions reported. This morning, patient was able to pass a spontaneous breathing trial and was successfully extubated under my direct supervision. No complications noted. General: Alert, Cooperative, No apparent distress, - - Appears older than stated age. HEENT: Atraumatic, PERRLA, EOMI, Normocephalic, - - Scleral icterus noted. Oral: Moist Mucosa, No Gingival or Mucosal Lesions/ Ulcerations, - - Poor dentition Neck: Supple, No JVD, No Nodes, Trachea Midline Lungs: Clear to auscultation, Normal air movement, No rhonchi, No wheeze, No rales Cardiovascular: Normal S1, Normal S2, Irregular Rate, Murmur, No rub noted, No Gallop Abdomen: Bowel Sounds Present, Soft, Non Tender, Non-Distended Extremities: No cyanosis, Capillary Refill Less than 3 Seconds, Clubbing Skin: - - No significant change compared to yesterday Musculoskeletal: No Tenderness to Palpation of Joints or Extremities Lymphatic: No Cervical, Supraclavicular, or Inguinal Adenopathy Neurological: Cranial nerves II-XII grossly intact, Neuro grossly intact, Motor Exam 5/5 strength throughout Psych/Mental Status: Anxious Vital Signs Temp Pulse Resp BP Pulse Ox 36.3 C L 79 11 L 117/65 98 04/09/19 07:00 04/09/19 07:00 04/09/19 07:00 04/09/19 07:00 04/09/19 07:00 Oxygen Flow Rate (L/min) 2 Oxygen Delivery Method Nasal Cannula Weight: 63.8 kg Body Mass Index (BMI) 21.1 Finger Stick Blood Glucose 130 Intake and Output for Last 24 Hours 04/07/19 04/08/19 04/09/19 23:59 23:59 23:59 Intake Total 514.4 / 764.0 767.5 / 767.5 Output Total 425 / 1150 1050 / 1050 Balance 89.4 / -386.0 -282.5 / -282.5 Labs (Last 48 Hours) 04/08/19 04/08/19 04/08/19 09:55 09:55 09:55 WBC 12.3 H RBC 4.96 Hgb 12.6 L Hct 39.4 L MCV 79.4 L MCH 25.4 L MCHC 32.0 RDW 18.6 H RDW Differential 53.6 H Plt Count 215 MPV 9.3 Immature Gran % (Auto) 0.200 Neut % (Auto) 78.6 H Lymph % (Auto) 15.5 L [place] % (Auto) 4.8 Eos % (Auto) 0.7 Baso % (Auto) 0.2 Absolute Neuts (auto) 9.7 H Absolute Lymphs (auto) 1.91 Total Counted Not Reportable Differential Comment Hypochromasia Macrocytosis Ovalocytes Crenated Cell PT 19.4 H INR 1.7 APTT 30.3 Specimen Type Sample Site pH Bicarbonate Actual POC Total CO2 Base Excess O2 Saturation O2 % ABG pCO2 ABG pO2 Alexis Test O2 Delivery Device Vent Mode POC PEEP POC Pressure Suppt Blood Gas Notified Whom Blood Gas Notified Time Sodium 130 L Potassium 5.0 Chloride 95 L Carbon Dioxide 23.0 Anion Gap 12 BUN 19 H Creatinine 0.94 Estim Creat Clear Calc 80.97 Est GFR (MDRD) Af Amer 106 Est GFR (MDRD) Non-Af 87 BUN/Creatinine Ratio 20.3 H Glucose 92 Lactic Acid Calcium 8.7 Total Bilirubin 1.60 H Direct Bilirubin 0.83 H AST 33 ALT 23 Alkaline Phosphatase 139 H Total Creatine Kinase Troponin I 0.042 B-Natriuretic Peptide Total Protein 7.7 Albumin 3.0 L Globulin 4.7 H Triglycerides Urine Color Urine Clarity Urine pH Ur Specific [place] Urine Protein Urine Glucose (UA) Urine Ketones Urine Occult Blood Urine Nitrite Urine Bilirubin Urine Urobilinogen Ur Leukocyte Esterase POC Glucose 04/08/19 04/08/19 04/08/19 09:55 09:55 09:55 WBC RBC Hgb Hct MCV MCH MCHC RDW RDW Differential Plt Count MPV Immature Gran % (Auto) Neut % (Auto) Lymph % (Auto) [place] % (Auto) Eos % (Auto) Baso % (Auto) Absolute Neuts (auto) Absolute Lymphs (auto) Total Counted Differential Comment Hypochromasia Macrocytosis Ovalocytes Crenated Cell PT INR APTT Specimen Type Sample Site pH Bicarbonate Actual POC Total CO2 Base Excess O2 Saturation O2 % ABG pCO2 ABG pO2 Alexis Test O2 Delivery Device Vent Mode POC PEEP POC Pressure Suppt Blood Gas Notified Whom Blood Gas Notified Time Sodium Potassium Chloride Carbon Dioxide Anion Gap BUN Creatinine Estim Creat Clear Calc Est GFR (MDRD) Af Amer Est GFR (MDRD) Non-Af BUN/Creatinine Ratio Glucose Lactic Acid 7.0 H* Calcium Total Bilirubin Direct Bilirubin AST ALT Alkaline Phosphatase Total Creatine Kinase 177 Troponin I B-Natriuretic Peptide 3550.0 H Total Protein Albumin Globulin Triglycerides Urine Color Urine Clarity Urine pH Ur Specific [place] Urine Protein Urine Glucose (UA) Urine Ketones Urine Occult Blood Urine Nitrite Urine Bilirubin Urine Urobilinogen Ur Leukocyte Esterase POC Glucose 04/08/19 04/08/19 04/08/19 09:55 10:49 14:15 WBC RBC Hgb Hct MCV MCH MCHC RDW RDW Differential Plt Count MPV Immature Gran % (Auto) Neut % (Auto) Lymph % (Auto) [place] % (Auto) Eos % (Auto) Baso % (Auto) Absolute Neuts (auto) Absolute Lymphs (auto) Total Counted Differential Comment Hypochromasia Macrocytosis Ovalocytes Crenated Cell PT INR APTT Specimen Type ART Sample Site R Brachial pH 7.31 L Bicarbonate Actual 17.6 L POC Total CO2 19 Base Excess -9 L O2 Saturation 99 O2 % 100 ABG pCO2 35.1 ABG pO2 177 H Alexis Test NA O2 Delivery Device Ambu Vent Mode POC PEEP POC Pressure Suppt Blood Gas Notified Whom ED Blood Gas Notified Time 1045 Sodium Potassium Chloride Carbon Dioxide Anion Gap BUN Creatinine Estim Creat Clear Calc Est GFR (MDRD) Af Amer Est GFR (MDRD) Non-Af BUN/Creatinine Ratio Glucose Lactic Acid Calcium Total Bilirubin Direct Bilirubin AST ALT Alkaline Phosphatase Total Creatine Kinase Troponin I B-Natriuretic Peptide Total Protein Albumin Globulin Triglycerides 59 Urine Color Yellow Urine Clarity Clear Urine pH 5.0 Ur Specific [place] 1.020 Urine Protein 30 H Urine Glucose (UA) Normal Urine Ketones 5 H Urine Occult Blood 50 H Urine Nitrite Negative Urine Bilirubin Negative Urine Urobilinogen 1 H Ur Leukocyte Esterase Negative POC Glucose 04/08/19 04/08/19 04/09/19 14:39 14:40 04:45 WBC 9.6 RBC 4.57 L Hgb 11.4 L Hct 35.4 L MCV 77.5 L MCH 24.9 L MCHC 32.2 RDW 18.7 H RDW Differential 50.6 H Plt Count 185 MPV 9.6 Immature Gran % (Auto) 0.200 Neut % (Auto) 95.3 H Lymph % (Auto) 2.9 L [place] % (Auto) 1.6 Eos % (Auto) 0.0 Baso % (Auto) 0.0 Absolute Neuts (auto) 9.1 H Absolute Lymphs (auto) 0.28 L Total Counted Not Reportable Differential Comment SCANNED Hypochromasia 1+ Macrocytosis 1+ Ovalocytes 2+ Crenated Cell 1+ PT INR APTT Specimen Type Sample Site pH Bicarbonate Actual POC Total CO2 Base Excess O2 Saturation O2 % ABG pCO2 ABG pO2 Alexis Test O2 Delivery Device Vent Mode POC PEEP POC Pressure Suppt Blood Gas Notified Whom Blood Gas Notified Time Sodium Potassium Chloride Carbon Dioxide Anion Gap BUN Creatinine Estim Creat Clear Calc Est GFR (MDRD) Af Amer Est GFR (MDRD) Non-Af BUN/Creatinine Ratio Glucose Lactic Acid 1.7 Calcium Total Bilirubin Direct Bilirubin AST ALT Alkaline Phosphatase Total Creatine Kinase Troponin I B-Natriuretic Peptide Total Protein Albumin Globulin Triglycerides Urine Color Urine Clarity Urine pH Ur Specific [place] Urine Protein Urine Glucose (UA) Urine Ketones Urine Occult Blood Urine Nitrite Urine Bilirubin Urine Urobilinogen Ur Leukocyte Esterase POC Glucose 74 04/09/19 04/09/19 04:45 06:08 WBC RBC Hgb Hct MCV MCH MCHC RDW RDW Differential Plt Count MPV Immature Gran % (Auto) Neut % (Auto) Lymph % (Auto) [place] % (Auto) Eos % (Auto) Baso % (Auto) Absolute Neuts (auto) Absolute Lymphs (auto) Total Counted Differential Comment Hypochromasia Macrocytosis Ovalocytes Crenated Cell PT INR APTT Specimen Type ART Sample Site L Radial pH 7.43 Bicarbonate Actual 24.4 POC Total CO2 25 Base Excess 0 O2 Saturation 96 O2 % 25 ABG pCO2 37.1 ABG pO2 79 Alexis Test POS O2 Delivery Device Vent Vent Mode CPAP PS POC PEEP 5 POC Pressure Suppt 5 Blood Gas Notified Whom ICU MD Blood Gas Notified Time 603 Sodium 140 Potassium 3.6 Chloride 105 Carbon Dioxide 25.0 Anion Gap 10 BUN 18 Creatinine 0.64 L Estim Creat Clear Calc 110.76 Est GFR (MDRD) Af Amer 164 Est GFR (MDRD) Non-Af 136 BUN/Creatinine Ratio 28.2 H Glucose 102 Lactic Acid Calcium 7.7 L Total Bilirubin Direct Bilirubin AST ALT Alkaline Phosphatase Total Creatine Kinase Troponin I B-Natriuretic Peptide Total Protein Albumin Globulin Triglycerides Urine Color Urine Clarity Urine pH Ur Specific [place] Urine Protein Urine Glucose (UA) Urine Ketones Urine Occult Blood Urine Nitrite Urine Bilirubin Urine Urobilinogen Ur Leukocyte Esterase POC Glucose Microbiology 04/08/19 14:15 Urine Catheter - [place] Streptococcus pneumoniae Antigen (M - Final 04/08/19 14:15 Urine Catheter - [place] Legionella Antigen - Final Clinical Impression(s) from Imaging Studies Chest X-Ray 04/08/19 10:10 IMPRESSION: Questionable development of patchy airspace disease in the right upper lobe and right lower lobe suggesting infection Electronically Signed: Clark Pacheco DO at 10:46 EDT Tel , Service support , Chest X-Ray 04/08/19 10:45 IMPRESSION: The tip of the endotracheal tube is at 2.7 sinus proximal to the zoraida. The tip of the orogastric tube is in the fundal portion of the stomach. Patchy infiltrate in the right upper lobe as well as in the left upper and left lower lobes. Electronically Signed: Darrick Coreas, at 11:25 EDT , Service support , Medical Necessity - Tobacco Use Smoking Status: Current every day smoker Assessment/Plan All Active Problems (Last Reviewed 04/08/19 @ 13:04 by Justin Zamarripa DO) Gram-negative pneumonia (Acute) Unspecified jaundice (Acute) Lactic acidosis (Acute) Sinus tachycardia by electrocardiogram (Acute) Dyspnea (Acute) Leukocytosis (Acute) Hyponatremia (Acute) History of ischemic cardiomyopathy (Acute) Unintentional weight loss (Acute) Hypoxia (Acute) COPD exacerbation (Acute) Acute respiratory failure with hypoxia (Acute) Septic shock (Resolved) Severe sepsis (Resolved) Septic shock (Ruled-out) COPD with acute exacerbation (Acute) Acute respiratory failure with hypoxemia (Acute) Acute bronchitis (Resolved) COPD exacerbation (Resolved) HCAP (healthcare-associated pneumonia) (Resolved) Hypotension (Resolved) MRSA (methicillin resistant Staphylococcus aureus) infection (Resolved) NSVT (nonsustained ventricular tachycardia) (Resolved) Near syncope (Resolved) RECOMMENDATIONS: 1. Continue diuresis 2. Agree with empiric antibiotics and steroids until cultures can be resulted 3. Wean oxygen as tolerated 4. Bedside swallow evaluation 5. Wean oxygen as tolerated IMPRESSIONS: 1. Acute hypoxic respiratory failure Unclear etiology at this time. Patient has had rapid recovery from severe hypoxia with mottling noted in the ER. This would be suggestive of a flash pulmonary edema as an etiology for his acute hypoxic respiratory failure. Patient is on antibiotics for now, but these can likely be discontinued at 48 hours if cultures are negative. Continue with bronchodilators and steroids for now, but anticipate discontinuation of systemic steroids at 48 hours also. 2. Suspected acute on chronic systolic congestive heart failure Patient does have an EF of 15% with elevated BNP on presentation. Bilateral infiltrates may be secondary to pulmonary congestion. Patient does have a response to Lasix therapy given in the emergency room. Patient can likely be reinitiated on baseline diuretic therapy at a minimum. 3. Sepsis Unclear etiology. Patient does have cloudy urine noted, but UA was relatively unimpressive. This may have increased metabolic demand leading to decompensation. Agree with holding IV fluids as patient is currently normotensive. Monitor urine output. Patient's renal function is currently at baseline. Lactic acid of 7 may be secondary to presenting hypoxemia. 4. Hyponatremia Resolved. Unclear etiology. Clinical suspicion for hypervolemic hyponatremia. Patient was reportedly not having any complications such as seizure activity. 5. History of noncompliance/tobacco abuse/reported history of amphetamine use Complicates care, management, recovery and prognosis. Tox screen was not obtained in the ER and patient is already received propofol and fentanyl. Can apply nicotine patch if patient so signs of withdrawal. TIME: 35 minutes critical care time spent addressing patient's acute hypoxic respiratory failure, congestive heart failure, sepsis, hyponatremia, reviewed all data and collaboration with care team (6:15 AM to 7:15 AM) Code Visit 9xxxx: [id number] Critical care first hour
[2019-04-09] MEDS: Ferrous Gluconate 324 MG Tablet PO ×2 (08:46→17:45)
[2019-04-09] MEDS: Losartan Potassium 25 MG Tablet NG (08:46)
[2019-04-09] MEDS: Enoxaparin 40 MG/0.4 ML Syringe SC (08:46)
[2019-04-09] MEDS: Carvedilol 6.25 MG Tablet NG (08:46)
--- NOTE | 2019-04-09 09:28 | PCM.PN.HOSP ---
Patient Problems: Active and Suspected Problems (Last Reviewed 04/08/19 @ 13:04 by Justin Zamarripa DO) Gram-negative pneumonia (Suspected) Subjective: Extubated today. States he is feeling better. He is feeling fine at about an hour prior to his presentation. Vitals/I&O's: Vital Signs Temp Pulse Resp BP Pulse Ox 36.3 C L 91 17 109/65 97 04/09/19 08:00 04/09/19 09:00 04/09/19 09:00 04/09/19 09:00 04/09/19 09:00 Oxygen Flow Rate (L/min) 2 Oxygen Delivery Method Nasal Cannula Weight: 63.8 kg Body Mass Index (BMI) 21.1 Finger Stick Blood Glucose 130 Intake and Output for Last 24 Hours 04/07/19 04/08/19 04/09/19 23:59 23:59 23:59 Intake Total 514.4 / 764.0 767.5 / 767.5 Output Total 425 / 1150 1050 / 1050 Balance 89.4 / -386.0 -282.5 / -282.5 General: Alert HEENT: Atraumatic, Normocephalic Oral: Moist Mucosa, No Gingival or Mucosal Lesions/ Ulcerations Neck: No Nodes, Thyroid Normal Size and Texture Lungs: Clear to auscultation, Diminished Cardiovascular: Regular rate, Regular Rhythm, Normal S1, Normal S2, No murmurs Abdomen: Bowel Sounds Present, Soft, Non Tender, Non-Distended, No Hepato-splenomegaly Extremities: No edema, No Calf Tenderness Skin: No rashes, No breakdown Musculoskeletal: No Tenderness to Palpation of Joints or Extremities, No Muscle Wasting Psych/Mental Status: Normal Affect, Appropriate Microbiology Past 72 Hours 04/08/19 14:15 Urine Catheter - [place] Streptococcus pneumoniae Antigen (M - Final 04/08/19 14:15 Urine Catheter - [place] Legionella Antigen - Final Laboratory Results 04/08/19 09:55: WBC 12.3 H, RBC 4.96, Hgb 12.6 L, Hct 39.4 L, MCV 79.4 L, MCH 25.4 L, MCHC 32.0, RDW 18.6 H, RDW Differential 53.6 H, Plt Count 215, MPV 9.3, Immature Gran % (Auto) 0.200, Neut % (Auto) 78.6 H, Lymph % (Auto) 15.5 L, [place] % (Auto) 4.8, Eos % (Auto) 0.7, Baso % (Auto) 0.2, Absolute Neuts (auto) 9.7 H, Absolute Lymphs (auto) 1.91, Total Counted Not Reportable 04/08/19 09:55: PT 19.4 H, INR 1.7, APTT 30.3 04/08/19 09:55: Sodium 130 L, Potassium 5.0, Chloride 95 L, Carbon Dioxide 23.0, Anion Gap 12, BUN 19 H, Creatinine 0.94, Estim Creat Clear Calc 80.97, Est GFR (MDRD) Af Amer 106, Est GFR (MDRD) Non-Af 87, BUN/Creatinine Ratio 20.3 H, Glucose 92, Calcium 8.7, Total Bilirubin 1.60 H, Direct Bilirubin 0.83 H, AST 33, ALT 23, Alkaline Phosphatase 139 H, Troponin I 0.042, Total Protein 7.7, Albumin 3.0 L, Globulin 4.7 H 04/08/19 09:55: Lactic Acid 7.0 H* 04/08/19 09:55: B-Natriuretic Peptide 3550.0 H 04/08/19 09:55: Total Creatine Kinase 177 04/08/19 09:55: Triglycerides 59 04/08/19 10:49: Specimen Type ART, Sample Site R Brachial, pH 7.31 L, Bicarbonate Actual 17.6 L, POC Total CO2 19, Base Excess -9 L, O2 Saturation 99, O2 % 100, ABG pCO2 35.1, ABG pO2 177 H, Alexis Test NA, O2 Delivery Device Ambu, Blood Gas Notified Whom ED , Blood Gas Notified Time 1045 04/08/19 14:15: Urine Color Yellow, Urine Clarity Clear, Urine pH 5.0, Ur Specific [place] 1.020, Urine Protein 30 H, Urine Glucose (UA) Normal, Urine Ketones 5 H, Urine Occult Blood 50 H, Urine Nitrite Negative, Urine Bilirubin Negative, Urine Urobilinogen 1 H, Ur Leukocyte Esterase Negative 04/08/19 14:39: POC Glucose 74 04/08/19 14:40: Lactic Acid 1.7 04/09/19 04:45: WBC 9.6, RBC 4.57 L, Hgb 11.4 L, Hct 35.4 L, MCV 77.5 L, MCH 24.9 L, MCHC 32.2, RDW 18.7 H, RDW Differential 50.6 H, Plt Count 185, MPV 9.6, Immature Gran % (Auto) 0.200, Neut % (Auto) 95.3 H, Lymph % (Auto) 2.9 L, [place] % (Auto) 1.6, Eos % (Auto) 0.0, Baso % (Auto) 0.0, Absolute Neuts (auto) 9.1 H, Absolute Lymphs (auto) 0.28 L, Total Counted Not Reportable, Differential Comment SCANNED, Hypochromasia 1+, Macrocytosis 1+, Ovalocytes 2+, Crenated Cell 1+ 04/09/19 04:45: Sodium 140, Potassium 3.6, Chloride 105, Carbon Dioxide 25.0, Anion Gap 10, BUN 18, Creatinine 0.64 L, Estim Creat Clear Calc 110.76, Est GFR (MDRD) Af Amer 164, Est GFR (MDRD) Non-Af 136, BUN/Creatinine Ratio 28.2 H, Glucose 102, Calcium 7.7 L 04/09/19 06:08: Specimen Type ART, Sample Site L Radial, pH 7.43, Bicarbonate Actual 24.4, POC Total CO2 25, Base Excess 0, O2 Saturation 96, O2 % 25, ABG pCO2 37.1, ABG pO2 79, Alexis Test POS, O2 Delivery Device Vent, Vent Mode CPAP PS, POC PEEP 5, POC Pressure Suppt 5, Blood Gas Notified Whom ICU MD, Blood Gas Notified Time 603 Current Medications Albuterol Sulfate (Ventolin Aerosols) 2.5 mg INHALATION Q2H PRN PRN PRN Reason: SHORTNESS OF BREATH Albuterol/Ipratropium (Duoneb) 3 ml INHALATION Q4H.RT [facility] Last Admin: 04/09/19 06:26 Dose: 3 ml Documented by: Atorvastatin Calcium (Lipitor) 80 mg NG QHS [facility] Last Admin: 04/08/19 22:56 Dose: 80 mg Documented by: Carvedilol (Coreg) 6.25 mg NG BIDCM [facility] Last Admin: 04/09/19 08:46 Dose: 6.25 mg Documented by: Chlorhexidine Gluconate () 1 each TOPICAL DAILY [facility] Last Admin: 04/09/19 05:28 Dose: 1 each Documented by: Dextrose (D50w Syringe) 0 gm IV X1 PRN; Protocol PRN Reason: Hypoglycemia Enoxaparin Sodium (Lovenox) 40 mg SC DAILY@1000 [facility] Last Admin: 04/09/19 08:46 Dose: 40 mg Documented by: Ferrous Gluconate (Ferrous Gluconate) 324 mg PO BIDCM [facility] Last Admin: 04/09/19 08:46 Dose: 324 mg Documented by: Glucagon () 1 mg IM .X1 PRN PRN Reason: Hypoglycemia Piperacillin Sod/Tazobactam (Sod 3.375 gm/ Sodium Chloride) 50 mls @ 12.5 mls/hr IV Q8 [facility] Last Admin: 04/09/19 05:27 Dose: 12.5 mls/hr Documented by: Vancomycin IV Pharmacy to Dose (1 ea/ Sodium Chloride) 500 mls @ 250 mls/hr IV X1 PRN; Protocol PRN Reason: Rx to Dose Vancomycin HCl 1,250 mg/ (Sodium Chloride) 275 mls @ 167 mls/hr IV Q12H [facility] Last Admin: 04/09/19 01:11 Dose: 167 mls/hr Documented by: Sodium Chloride () 250 mls @ 15 mls/hr IV .[id number] PRN PRN Reason: SALINE FLUSH Last Admin: 04/09/19 05:27 Dose: 15 mls/hr Documented by: Sodium Chloride () 500 mls @ 15 mls/hr IV .[id number] PRN PRN Reason: SALINE FLUSH Losartan Potassium (Cozaar) 25 mg NG DAILY [facility] Last Admin: 04/09/19 08:46 Dose: 25 mg Documented by: Methylprednisolone (Solu-Medrol) 40 mg IV Q8 [facility] Last Admin: 04/09/19 05:27 Dose: 40 mg Documented by: Sodium Chloride () 10 - 40 ml IV UD PRN PRN Reason: SALINE FLUSH Last Admin: 04/09/19 05:28 Dose: 10 ml Documented by: Medical Necessity - Tobacco Use Smoking Status: Current every day smoker Assessment/Plan All Active Problems (Last Reviewed 04/08/19 @ 13:04 by Justin Zamarripa DO) Unspecified jaundice (Acute) Lactic acidosis (Resolved) Sinus tachycardia by electrocardiogram (Resolved) Leukocytosis (Resolved) Hyponatremia (Resolved) Hypoxia (Acute) COPD exacerbation (Acute) Acute respiratory failure with hypoxia (Acute) Septic shock (Resolved) Severe sepsis (Resolved) Septic shock (Ruled-out) COPD with acute exacerbation (Acute) Acute respiratory failure with hypoxemia (Acute) Acute bronchitis (Resolved) COPD exacerbation (Resolved) HCAP (healthcare-associated pneumonia) (Resolved) Hypotension (Resolved) MRSA (methicillin resistant Staphylococcus aureus) infection (Resolved) NSVT (nonsustained ventricular tachycardia) (Resolved) Near syncope (Resolved) 1. Acute hypoxic respiratory failure Improved Extubated 04/09 Patient had a pulse ox reading of 35, not sure if that was accurate but patient was certainly tachypneic and mottled and had impending respiratory failure clinically before intubation Due to pneumonia and COPD exacerbation. Clinically, I am not really convinced patient is having acute heart failure exacerbation though the patient does have a very poor ejection fraction of 15%. Patient be admitted to the ICU and critical care medicine will be consulted for ventilator management 2. Suspected gram-negative pneumonia vancomycin and Zosyn Check sputum culture, blood cultures Strep and legionella antigens negative Pulmonary toilet consider DC abx if cultures negative 3. Acute exacerbation of COPD Steroids and bronchodilators 4. Heart failure with reduced ejection fraction possible acute exacerbation EF of 15% from September 27, 2018 Chest x-ray and clinically patient not convincing for an acute exacerbation of CHF Patient did receive 80 mg of IV Lasix in the emergency room weight down to 63.8 from 68.5, dry weight around 63.5 to 64kg resumed lasix, losartan 5. Sepsis, presumed Present on admission Difficult to extrapolate changes vital signs related with sepsis versus a respiratory failure Lactic acid was elevated and that is difficult to extrapolate that from severe sepsis versus acute hypoxic respiratory failure We will hold off on giving IV fluids at this time given the patient's history of heart failure and additional fluids may initiate his respiratory status 6. Medical noncompliance Complicates care overall Patient recently admitted and discharged and upon discharge again will likely be high risk factor for early readmission 7. VTE prophylaxis: High medical risk. Patient will be on Lovenox 8. Disposition: pending. to PCU on 04/10 if stable Code Visit Inpatient E&M: 39426 Subs Hosp L2
--- NOTE | 2019-04-09 10:44 | CASEMGMT ---
GILL BASS Readmission Note Previous Admission: 03/24/19-03/25/19 Diagnosis: Respiratory Failure DC Disposition: Home with CCN and Home Oxygen ordered through [facility], but not intiated. - Extensive dc planning involved with pt including pharmacy assist for medications so pt would have 30 day supply on discharge. Referral for SW to speak with pt re: any services available to assist him on dc. Pt did not have a phone. His roommate had phone, however was not consistent with being liason for hospital or DME. -Home Oxygen was not initated on dc. Call to Yany @ [employer]. States they did drive by, however address pt had given was no longer accurate. GILL BASS asked pt to give current address. Pt states [facility] address is old. Pt has moved and address on demographics for this admission of [address], [place] is current per pt. updated Demographic sheet faxed to [employer], called back to [place] who verified they received updated address. Per Liam, new script is not needed for Home O2 unless the 2L NC continuous prescribed changes. Per [place], when verified pt is going home, they will work with CM to be sure O2 is delivered when pt is home. -Call to [facility]. Updated that pt is extubated, anticipate possible dc home tomorrow. Updated that [facility] has correct address and will deliver O2 on dc. Per [facility] program has set goals for pt for next 30 days of : 1. having oxygen delivery to home 2.going to PCP 3. applying for Waiver Program. Per ann, pt may not be able to stay at this address and [facility] SW will work with pt for alternatives. Current Admission 04/08/19 Presentation: Respiratory failure/Ventilatory Support on admission. Extubated 04/08/19. Introduced role of CM to patient in room after ICU interdisciplinary rounds. In previous admissions, pt had difficulty understanding and remembering CM interventions, conversations and dc planning. Per material reclaimer, pt stated he did not remember having conversation re: his diet. Beekeeper Farmer was able to speak with him again. Pt did remember GILL BASS speaking with him last admission. Presently pt is awake, alert. States he is feeling better and is able to participate in dc planning. Pt states he wants the home Oxygen. GILL BASS spoke with him at length re: being home when CCN personnel and DME provider arrive. Pt is agreeable, did admit he loses track of time. Pt was able to list some of the medications he is on and states he has been taking them regularly. GILL BASS inquired if he still had medications provided prior to last discharge and pt stated he did. -Reviewed dc expectations with pt including set up of home oxygen and pt responsibility to be home. Continuing with [facility] and follow through with their suggestions. Continuing to take medications as prescribed. -pt shook GILL BASS's hand and stated thanks for everything you did last time I was here and now. I remember talking with you, but I didn't say thank you. I think we'll get this figured out this time. Pt also stated he appreciated the person who came out to help me ([facility] personnel). GILL BASS acknowledged pt's response and encouraged his efforts. -Spoke with YASMEEN Vazquez and YASMEEN Trejo Process Eng re: evaluation for mental health needs. Recommendation was for Speech Therapy to complete cognitive assessment. GILL BASS spoke with Dr. Zamarripa. Physician feels this would not be beneficial at this time due to pt being recently extubated. SW will consider other assessment to eval pt for psychosocial needs. DC PLAN: Home with set up of [facility] Home oxygen and continuing with [facility] visits.
[2019-04-09] MEDS: Clopidogrel Bisulfate 75 MG Tablet PO (12:13)
[2019-04-09] MEDS: Isosorbide Mononitrate 30 MG Tablet PO (12:13)
[2019-04-09] MEDS: Aspirin E.C. 81 MG Tablet PO (12:13)
[2019-04-09] MEDS: Furosemide 40 MG Tablet PO ×2 (12:13→17:45)
--- NOTE | 2019-04-09 14:41 | CASEMGMT ---
SW was asked by GILL Morgan about assessing patient's cognition to assess need for guardian. SW was told staff is indicating he is forgetful and not seeming to understand his health care. SW explained physician has to deem patient incompetent. SW could possibly do a mini mental status. However, SW then checked with SW district manager and Speech Therapy does cognition assessments which may be more information than a mini mental status exam. SW then passed this along to GILL Morgan who spoke with physician who did not feel this was necessary. It was suggested SW see patient to assess for depression as this may be contributing to his lack of participation in his own healthcare. SW will see patient to assess for depression or other mental health needs. Nicolasa GUILLAUME SEAL EXTRUSION OPERATOR
[2019-04-09] MEDS: Acetaminophen 325 MG Tablet 650 MG PO (17:43)
[2019-04-09] MEDS: Carvedilol 6.25 MG Tablet PO (17:45)
[2019-04-09] MEDS: Pramipexole Di-HCl 0.25 MG Tablet PO (21:20)
[2019-04-09] MEDS: Atorvastatin Calcium 80 MG Tablet PO (21:20)
[2019-04-10] VITALS (7 sets, daily range): BP systolic 122–139; BP diastolic 69–89; PULSE 94–99; RESP 18; TEMP 36.4–36.9; O2SAT 95–97
[2019-04-10 02:11] LABS: Vancomycin, Trough Level 12.2 ug/mL (5.0-15.0)
--- NOTE | 2019-04-10 02:32 | PCM.RX.CS ---
Consult Pharmacy has been consulted to manage selected antiobiotic: Vancomycin Type of Consult: Follow-up Suspected Infection: Sepsis, Pneumonia Prior Doses of Antibiotics Received/Current Regimen: Medications Vancomycin HCl 750 mg/ Sodium (Chloride) 265 mls @ 250 mls/hr IV Q8H SHELL Discontinued Medications Vancomycin HCl 1,250 mg/ (Sodium Chloride) 275 mls @ 167 mls/hr IV Q12H SHELL Last Admin: 04/10/19 00:12 Dose: 167 mls/hr Labs: Sodium 140 mmol/L (136-145) 04/09/19 04:45 Potassium 3.6 mmol/L (3.5-5.1) 04/09/19 04:45 Chloride 105 mmol/L (98-107) 04/09/19 04:45 Carbon Dioxide 25.0 mmol/L (21.0-32.0) 04/09/19 04:45 10 (5-15) 04/09/19 04:45 BUN 18 mg/dL (7-18) 04/09/19 04:45 0.64 mg/dL (0.70-1.30) L 04/09/19 04:45 Est GFR (MDRD) Af Amer 164 mL/min (>60) 04/09/19 04:45 Est GFR (MDRD) Non-Af 136 mL/min (>60) 04/09/19 04:45 28.2 RATIO (10-20) H 04/09/19 04:45 Glucose 102 mg/dL (74-106) 04/09/19 04:45 Vancomycin Trough 12.2 ug/mL (5.0-15.0) 04/10/19 01:40 Microbiology: Microbiology 04/08/19 17:25 Sputum, Induced/Lukens Gram Stain - Final 04/08/19 17:25 Sputum, Induced/Lukens Respiratory Culture - Preliminary Appears to be normal respiratory kerwin. Further studies to follow. 04/08/19 14:15 Urine Catheter - Linn Streptococcus pneumoniae Antigen (M - Final 04/08/19 14:15 Urine Catheter - Linn Legionella Antigen - Final Weight used for dosin.8 kg Estimated Creatinine Clearance: 111 Goal Trough: 15-20 mcg/mL Pharmacy Plan for Drug Dosing: Trough drawn 04/10/19 returned at 12.2, which is low even despite being drawn after vanco dose had started to infuse. CrCl had increased from 81 to 111, so dosing was adjusted to 750mg q8h. Another trough level will be drawn prior to 4th dose of new order. Pharmacy Service will continue to monitor and adjust dosing as required. Follow-Up Labs: Trough Vancomycin Labs to be done on [date and time ordered]: 04/11/19 @7471
--- NOTE | 2019-04-10 07:00 | PN_ITS ---
Patient Problems: Active and Suspected Problems (Last Reviewed 04/08/19 @ 13:04 by Justin Zamarripa DO) Gram-negative pneumonia (Suspected) Subjective: Patient continues to do well on baseline nasal cannula oxygen. Patient did complain of leg cramps overnight, but states he is doing okay this morning. Patient has had a cough that is nonproductive and is denying any chest pain at this time. - Physical Exam General: Alert, Oriented x3, Cooperative - Variably, No apparent distress, - - Appears older than stated age. HEENT: Atraumatic, PERRLA, EOMI, Normocephalic, - - Scleral icterus without injection Oral: Moist Mucosa, No Gingival or Mucosal Lesions/ Ulcerations Neck: Supple, No Nodes, Trachea Midline, JVD, Right Lungs: No rhonchi, No wheeze, No rales, Diminished, - - Symmetric expansion. Cardiovascular: Regular rate, Regular Rhythm, Normal S1, Normal S2, No murmurs, No rub noted, No Gallop Abdomen: Bowel Sounds Present, Soft, Non Tender, Non-Distended Extremities: No cyanosis, Capillary Refill Less than 3 Seconds, Clubbing, Edema Skin: - - No significant change compared to previous Musculoskeletal: No Tenderness to Palpation of Joints or Extremities, Cachexia, Muscle Wasting Lymphatic: No Cervical, Supraclavicular, or Inguinal Adenopathy Neurological: Cranial nerves II-XII grossly intact, Neuro grossly intact, Motor Exam 5/5 strength throughout Psych/Mental Status: Alert and oriented to time, place, person, mood and affect Vital Signs Temp Pulse Resp BP Pulse Ox 36.9 C 99 18 122/69 H 97 04/10/19 02:00 04/10/19 04:00 04/10/19 02:00 04/10/19 02:00 04/10/19 02:00 Oxygen Flow Rate (L/min) 2 Oxygen Delivery Method Room Air Weight: 64.7 kg Body Mass Index (BMI) 21.1 Finger Stick Blood Glucose 130 Intake and Output for Last 24 Hours 04/08/19 04/09/19 04/10/19 23:59 23:59 23:59 Intake Total 514.4 / 764.0 3110.5 / 4048.5 1791 / 1791 Output Total 425 / 1150 1635 / 2410 1525 / 1525 Balance 89.4 / -386.0 1475.5 / 1638.5 266 / 266 Microbiology Past 72 Hours 04/08/19 17:25 Gram Stain - Final Sputum, Induced/Lukens Respiratory Culture - Preliminary Appears to be normal respiratory kerwin. Further studies to follow. 04/08/19 14:15 Streptococcus pneumoniae Antigen (M - Final Urine Catheter - [facility]inn 04/08/19 14:15 Legionella Antigen - Final Urine Catheter - [facility] Laboratory Tests Past 24 Hrs 04/10/19 01:40 Vancomycin Trough 12.2 Medical Necessity - Tobacco Use Smoking Status: Current every day smoker Assessment/Plan All Active Problems (Last Reviewed 04/08/19 @ 13:04 by Justin Zamarripa DO) Unspecified jaundice (Acute) Lactic acidosis (Resolved) Sinus tachycardia by electrocardiogram (Resolved) Leukocytosis (Resolved) Hyponatremia (Resolved) Hypoxia (Acute) COPD exacerbation (Acute) Acute respiratory failure with hypoxia (Acute) Septic shock (Resolved) Severe sepsis (Resolved) Septic shock (Ruled-out) COPD with acute exacerbation (Acute) Acute respiratory failure with hypoxemia (Acute) Acute bronchitis (Resolved) COPD exacerbation (Resolved) HCAP (healthcare-associated pneumonia) (Resolved) Hypotension (Resolved) MRSA (methicillin resistant Staphylococcus aureus) infection (Resolved) NSVT (nonsustained ventricular tachycardia) (Resolved) Near syncope (Resolved) RECOMMENDATIONS: 1. Continue diuresis 2. Discontinue antibiotics. 3. Transition to prednisone therapy to complete a 5-day burst 4. Walking oximetry prior to discharge 5. Okay to discharge from a pulmonary perspective IMPRESSIONS: 1. Acute hypoxic respiratory failure Unclear etiology at this time. Patient has had rapid recovery from severe hypoxia with mottling noted in the ER. This would be suggestive of a flash pulmonary edema as an etiology for his acute hypoxic respiratory failure. Cultures are currently negative at 48 hours. Okay to discontinue antibiotics from my perspective. Patient will be transition to prednisone therapy. Will complete a 5-day burst, but extended taper is likely not indicated. 2. Suspected acute on chronic systolic congestive heart failure Patient does have an EF of 15% with elevated BNP on presentation. Bilateral infiltrates may be secondary to pulmonary congestion. Patient does have a response to Lasix therapy given in the emergency room. Patient can likely be reinitiated on baseline diuretic therapy at a minimum. 3. Sepsis Unclear etiology. Patient does have cloudy urine noted, but UA was relatively unimpressive. This may have increased metabolic demand leading to decompensation. Monitor urine output. Patient's renal function is currently at baseline. Lactic acid of 7 may be secondary to presenting hypoxemia, not septic shock. 4. Hyponatremia Resolved. Unclear etiology. Clinical suspicion for hypervolemic hyponatremia. Patient was reportedly not having any complications such as seizure activity or decreased mental status. 5. History of noncompliance/tobacco abuse/reported history of amphetamine u se Complicates care, management, recovery and prognosis. Tox screen was not obtained in the ER and patient is already received propofol and fentanyl. Can apply nicotine patch if patient so signs of withdrawal. Code Visit Inpatient E&M: 77517 Subs Hosp L2
[2019-04-10] MEDS: Aspirin E.C. 81 MG Tablet PO (07:57)
[2019-04-10] MEDS: Carvedilol 6.25 MG Tablet PO (07:57)
[2019-04-10] MEDS: Isosorbide Mononitrate 30 MG Tablet PO (07:57)
[2019-04-10] MEDS: Ferrous Gluconate 324 MG Tablet PO (07:57)
[2019-04-10] MEDS: Losartan Potassium 25 MG Tablet PO (07:57)
[2019-04-10] MEDS: Clopidogrel Bisulfate 75 MG Tablet PO (07:58)
[2019-04-10] MEDS: Furosemide 40 MG Tablet PO (07:58)
--- NOTE | 2019-04-10 08:32 | PCM.DC ---
- Discharge Diagnoses Current Active Problems: Current Active and Chronic Problems (Last Reviewed 04/08/19 @ 13:04 by Justin Zamarripa DO) Acute and chronic respiratory failure with hypoxia (Chronic) COPD exacerbation (Chronic) You will use the following diet at home:: Cardiac, Fiber restricted - 1500 mililiters (1.5 liters, which is around 1.5 quarts) per day Your food should be the consistency of: Regular Your liquids should be the consistency of: Regular/Thin Discharge Activity: Return to Normal Activity, No Restrictions Allergies/Adverse Reactions: Allergies No Known Allergies Allergy (Verified 04/08/19 09:46) Medications to take at Discharge Albuterol Inhaler [Ventolin Hfa] 2 puff INHALATION 4X/DAY #1 inhaler 03/25/19 Aspirin E.C. [Ecotrin] 81 mg PO DAILY #30 tab 03/25/19 Atorvastatin Calcium [Lipitor] 80 mg PO QHS #30 tab 03/25/19 Carvedilol [Coreg (Beta Fletcher)] 6.25 mg PO BID #60 tab 03/25/19 Clopidogrel Bisulfate [Plavix] 75 mg PO DAILY #30 tab 03/25/19 Ferrous Gluconate 324 mg PO BIDCM #30 tab 03/25/19 Furosemide [Lasix] 40 mg PO BID #60 tab 03/25/19 Isosorbide Mononitrate [Imdur] 30 mg PO DAILY #30 tab 03/25/19 Losartan Potassium [Cozaar] 25 mg PO DAILY #30 tab 03/25/19 Potassium Chloride [K-Dur] 20 meq PO DAILY #30 tab 03/25/19 predniSONE tablet 2 tab PO DAILY@0800 #8 tab 04/10/19 The following prescriptions were given: predniSONE tablet 2 tab PO DAILY@0800 #8 tab Transmission Status: Pending to [facility] Primary Care Physician: Ramy Davis MD [Primary Care Provider] - Test Results: Test results from this visit will be discussed in further detail at your follow-up appointment, if applicable. Proposed Discharge Date: 04/10/19
--- NOTE | 2019-04-10 08:37 | DS.PCM_ITS ---
Discharge Date and Diagnosis Date of Admission: 04/08/19 Date of Discharge: 04/10/19 - Primary Discharge Diagnosis Active and Suspected Problems (Last Reviewed 04/08/19 @ 13:04 by Justin Zamarripa DO) Gram-negative pneumonia (Suspected) 1. Acute hypoxic respiratory failure * Improved * Extubated 04/09 * Patient had a pulse ox reading of 35, not sure if that was accurate but patient was certainly tachypneic and mottled and had impending respiratory failure clinically before intubation * Patient was ambulated in the hallway and was 97% on room air, therefore, he will not require oxygen upon discharge. 2. Suspected gram-negative pneumonia * ruled out * stop abx * Cultures negative * Strep and legionella antigens negative 3. Acute exacerbation of COPD * Steroids and bronchodilators * 4 more days of prednisone 4. acute Heart failure with reduced ejection fraction * possible acute exacerbation * EF of 15% from September 27, 2018 * Chest x-ray and clinically patient not convincing for an acute exacerbation of CHF * Patient did receive 80 mg of IV Lasix in the emergency room * weight down to 64.7 from 68.5, dry weight around 63.5 to 64kg * resumed lasix, losartan * Patient states that he is compliant with his medications and seems surprised when I brought up the fact that is been documented that he has been noncompliant with his medications. Though he did endorse that he drinks as much fluid as he wants. Did inform him to restrict his fluid intake to 1.5 L/day. Also advised that he check his weight daily. Patient states that he has a scale. Patient contact physician =2 pounds one day or 3 pounds in 1 week. 5. Sepsis, ruled out * Abnormal vital signs likely due to his respiratory failure, lactic acidosis likely related with hypoxia. * Present on admission * Difficult to extrapolate changes vital signs related with sepsis versus a respiratory failure 6. Medical noncompliance * Complicates care overall * Patient recently admitted and discharged and upon discharge again will likely be high risk factor for early readmission * As mentioned above, patient states that he is compliant with his medications though not so much with his diet. I am not sure how accurate that is but certainly give him the benefit of doubt and I did clarify with patient if he does require any refills on any of his home medications to let us know. Patient states that he does not. Patient already received a prescription for the prednisone upon discharge. - Secondary Discharge Diagnosis Chronic Problems (Last Reviewed 04/08/19 @ 13:04 by Justin Zamarripa DO) Acute and chronic respiratory failure with hypoxia (Chronic) COPD exacerbation (Chronic) Dyspnea (Chronic) History of ischemic cardiomyopathy (Chronic) Anemia, unspecified (Chronic) Unintentional weight loss (Chronic) Amphetamine abuse (Chronic) Chronic respiratory failure with hypoxia (Chronic) Acute and chronic respiratory failure with hypoxia (Chronic) Acute on chronic systolic CHF (congestive heart failure) (Chronic) Systolic CHF (Chronic) Elevated troponin (Chronic) ICD (implantable cardioverter-defibrillator) in place (Chronic) History of coronary artery stent placement (Chronic) PCI-RCA and CX Atherosclerosis of coronary artery of [place] heart without angina pectoris (Chronic) LEFT HEART ASSESSMENT Left Ventricular Ejection Fraction: by LV Gram 10-15 % Global Hypokinesis - Severe Depressed Left Ventricular systolic function Normal Left Ventricular End Diastolic Pressure LEFT MAIN: Non-obstructive LEFT ANTERIOR DECENDING ARTERY: Previously placed stent is patent DIAGONAL 1: Ostial - Mild luminal irregularities less than 30% DIAGONAL 2: Proximal - Non-obstructive CIRCUMFLEX ARTERY: MID CIRC: Previously placed stent is patent RIGHT CORONARY ARTERY: MID RCA: Previously placed stent has instent 20 % restenosis with a new at distal edge of stent Iron deficiency anemia (Chronic) COPD (chronic obstructive pulmonary disease) (Chronic) Tobacco abuse (Chronic) Medical non-compliance (Chronic) Ischemic cardiomyopathy (Chronic) Hospital Course and Treatment Imaging Results: Clinical Impression(s) from Imaging Studies Chest X-Ray 04/08/19 10:10 IMPRESSION: Questionable development of patchy airspace disease in the right upper lobe and right lower lobe suggesting infection Electronically Signed: Clark Pacheco DO at 10:46 EDT Tel , Service support , Chest X-Ray 04/08/19 10:45 IMPRESSION: The tip of the endotracheal tube is at 2.7 sinus proximal to the zoraida. The tip of the orogastric tube is in the fundal portion of the stomach. Patchy infiltrate in the right upper lobe as well as in the left upper and left lower lobes. Electronically Signed: Darrick Coreas, at 11:25 EDT , Service support , [place]: BRENDA Operations: None Procedures: Intubation Summary of Care Provided: The patient is a 58 year old M presents with shortness of breath. Patient was intubated in the emergency room, received mag mycin Zosyn for possible pneumonia, 8 mg of IV Lasix and admitted. The following day, the patient did much better and was extubated. Patient was monitored and resumed back on his typical Lasix. Cultures, including sputum and blood cultures were negative as well as urinary antigens Streptococcus and Legionella. Saw the patient is a respiratory failure is due to CHF in a patient with known ejection fraction of 15%. Compliance has been issue for this patient. Patient states that he takes his medications as prescribed but does not follow a fluid restricted diet. Reinforced patient he needs to follow fluid restrict his diet into himself da holger. Patient states that he will comply. Given patient's history, it the likelihood of him following through and this is unfortunately low. [] - Physical Exam General: Alert, No apparent distress HEENT: Atraumatic, Normocephalic Oral: Moist Mucosa, No Gingival or Mucosal Lesions/ Ulcerations Neck: No Nodes, Thyroid Normal Size and Texture Lungs: Clear to auscultation, Normal air movement, No rhonchi, No wheeze Cardiovascular: Regular rate, Regular Rhythm, Normal S1, Normal S2, No murmurs Abdomen: Bowel Sounds Present, Soft, Non Tender, Non-Distended, No Hepato- splenomegaly Extremities: No edema, No Calf Tenderness Vital Signs Temp Pulse Resp BP Pulse Ox 36.4 C L 97 18 139/89 H 95 04/10/19 07:45 04/10/19 07:45 04/10/19 07:45 04/10/19 07:45 04/10/19 07:45 Oxygen Flow Rate (L/min) 2 Oxygen Delivery Method Room Air Weight: 64.7 kg Body Mass Index (BMI) 21.1 Finger Stick Blood Glucose 130 Intake and Output for Last 24 Hours 04/08/19 04/09/19 04/10/19 23:59 23:59 23:59 Intake Total 514.4 / 764.0 3110.5 / 4048.5 1791 / 1791 Output Total 425 / 1150 1635 / 2410 1525 / 1525 Balance 89.4 / -386.0 1475.5 / 1638.5 266 / 266 Microbiology Past 72 Hours 04/08/19 17:25 Gram Stain - Final Sputum, Induced/Lukens Respiratory Culture - Preliminary Appears to be normal respiratory kerwin. Further studies to follow. 04/08/19 14:15 Streptococcus pneumoniae Antigen (M - Final Urine Catheter - [facility] 04/08/19 14:15 Legionella Antigen - Final Urine Catheter - [facility] Laboratory Tests Past 24 Hrs 04/10/19 01:40 Vancomycin Trough 12.2 Discharge Diet: Low fat/ Low Cholesterol, 6 Cup Fluid Restriction, 2000 mg Sodium Diet Discharge Activity: Return to Normal Activity, No Restrictions Call your doctor if you observe: Fever of 101 or Higher, Shortness of breath, Swelling in the ankles Home Medications: Medications to take at Discharge Albuterol Inhaler [Ventolin Hfa] 2 puff INHALATION 4X/DAY #1 inhaler 03/25/19 Aspirin E.C. [Ecotrin] 81 mg PO DAILY #30 tab 03/25/19 Atorvastatin Calcium [Lipitor] 80 mg PO QHS #30 tab 03/25/19 Carvedilol [Coreg (Beta Fletcher)] 6.25 mg PO BID #60 tab 03/25/19 Clopidogrel Bisulfate [Plavix] 75 mg PO DAILY #30 tab 03/25/19 Ferrous Gluconate 324 mg PO BIDCM #30 tab 03/25/19 Furosemide [Lasix] 40 mg PO BID #60 tab 03/25/19 Isosorbide Mononitrate [Imdur] 30 mg PO DAILY #30 tab 03/25/19 Losartan Potassium [Cozaar] 25 mg PO DAILY #30 tab 03/25/19 Potassium Chloride [K-Dur] 20 meq PO DAILY #30 tab 03/25/19 predniSONE tablet 2 tab PO DAILY@0800 #8 tab 04/10/19 Following Prescrptions Were Given to Patient: predniSONE tablet 2 tab PO DAILY@0800 #8 tab Transmission Status: Pending to [facility] Primary Care Physician: Ramy Davis MD [Primary Care Provider] - Within 1 Week Please Follow Up With: Ramon Acosta, POLICE SERGEANT-C When: 04/30/19 Patient Instructions: Taking Medication to Control Heart Failure, What Is Heart Failure?, Heart Failure: Tracking Your Weight, Heart Failure: Procedures That May Help, Heart Failure: Making Changes to Your Diet, Heart Failure: Medications to Help Your Heart, Heart Failure Disposition: Home Minutes spent on discharge:: 35 Patient Condition:: Fair Medical Necessity - Tobacco Use Smoking Status: Current every day smoker Meaningful Use Info Meaningful Use Diagnoses (Choose all that apply): CHF - CHF YUE/ARB ordered at discharge?: Yes Documented LVEF (%): 15 Code Visit Inpatient E&M: 26859 Disch Hosp
--- NOTE | 2019-04-10 09:05 | CASEMGMT ---
GILL BASS Note: Pt was discharged home with [facility] van prior to RN SHELIA arrival. Per nursing, pt gave grievance and appeals specialist an address on [address]. Pt lives on [address]. GILL BASS called to [facility] to notify pt has left. Per [place], they will attempt to deliver oxygen to his home. GILL BASS requested call back from [facility] when delivered. -Attempted call to [facility]. Jonny said she had already gotten call from Joyce GARLAND CM that pt was dc'd. GILL BASS was unable to give further details re: dc, but did reinforce that pt was dc'd and will need resumed by [facility]. Damon GOMEZ -Pt has prescription for prednisone from [facility]. Damon PULIDOM
--- NOTE | 2019-04-10 11:00 | CASEMGMT ---
YASMEEN was going to talk with patient and assess him for mental health needs, however he was already discharged. YASMEEN called Hector with [facility] and left her a voice mail letting her know SW was not able to see patient before he left. YASMEEN explained YASMEEN was going to assess for mental health needs. Nicolasa GUILLAUME MSW
--- NOTE | 2019-04-11 13:43 | CCN.REFER ---
Visit to home by CHRISTINA BREWER and YASMEEN yesterday 04/10/19. Helped patient fill out paperwork for phone and metro housing. Patient having problems providing financial data. Refuses to get another food stamp card since current one is lost. States he wants to continue looking for it. [facility] was called, and they are scheduled to come to home today. PCP and Cardiology follow up appts scheduled with transportation. Follow up phone call to patient today per Bryan Angel LPN. S/W with room mate Burke who states patient is unavailable, and Burke also states that [employer] never showed up or called yesterday. 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 Patient was not home or not available. Roommates told [employer] bus van driver that they did not want any extra 02 supplies, portable tanks, etc. and they also refused 02 safety and education. They advised [employer] bus van driver to leave concentrator only on the front porch which [facility] did. CHRISTINA to continue to monitor patient as long as he complies with above.
== END 2019-04-10 09:00 | disposition home or self-care (01) | DRG 208 ==
LOC: ED 10:32 → ICU 13:15
PROVIDERS: Internal Medicine Critical Care Medicine; Emergency Provider Emergency Medicine; Family Provider Internal Medicine; PCP Internal Medicine
DX: J96.01 Acute respiratory failure with hypoxia (principal); I50.23 Acute on chronic systolic (congestive) heart failure; J44.1 Chronic obstructive pulmonary disease with (acute) exacerbation; E87.1 Hypo-osmolality and hyponatremia; Z91.19 Patient's noncompliance with other medical treatment and regimen; I25.10 Atherosclerotic heart disease of native coronary artery without angina pectoris; Z95.5 Presence of coronary angioplasty implant and graft; F17.200 Nicotine dependence, unspecified, uncomplicated
CPT/HCPCS: 31500; 31720; 36600; 51702; 71045; 80048; 80076; 80202; 81002; 82550; 82803; 82962; 83605; 83880; 84478; 84484; 85025; 85610; 85730; 87040; 87070; 87205; 87449; 93005; 94002; 94003; 94640; 94660; 95831; 97162; 97166; 97802; 99251; 99285; 99406; J7030; J7050; A4216; G0463; J0330

== ENCOUNTER 2019-05-06 06:59 | Emergency (ER) | payer MEDICARE, MEDICAID, SELFPAY ==
[2019-05-01 13:18] VITALS: BMI 21.7
[2019-05-06 07:00] VITALS: BP 145/96; PULSE 105; RESP 18; TEMP 36.9; O2SAT 100; BMI 23.1
[2019-05-06 07:11] VITALS: O2SAT 100
--- NOTE | 2019-05-06 07:12 | ED.RN ---
pt with rapid breathing encouraged slow deep breahins breathing improved. on 2l o2, baseline. pt states i've been doing a lot beter than last time. it makes a difference when i do what you guys tell me to at home.
--- NOTE | 2019-05-06 07:15 | RAD_ITS ---
STUDY: X-RAY CHEST REASON FOR EXAM: Male, 58 years old. Shortness of breath TECHNIQUE: Single AP portable view of the chest. COMPARISON: 04/08/2019 FINDINGS: ET tube and enteric tube are removed. COPD. Lungs are essentially clear. Stable left chest wall pacing device. There is no demonstrated pleural abnormality. There is mild cardiac enlargement. Normal mediastinum and alberto. Normal visualized pulmonary arteries. Normal visualized aortic arch and descending thoracic aorta. Normal visualized thoracic spine. Normal visualized ribs, clavicles, and shoulders. There is no demonstrated abnormality of the visualized soft tissue structures of the upper abdomen. RAD/Chest 1 View (Portable) IMPRESSION: COPD. No acute findings Electronically Signed: Clark Pacheco DO at 8:00 EDT Tel , Service support ,
--- NOTE | 2019-05-06 07:15 | EKG12_ITS ---
Test Reason : SOB Blood Pressure : / mmHG Vent. Rate : 106 BPM Atrial Rate : 106 BPM P-R Int : 194 ms QRS Dur : 112 ms QT Int : 362 ms P-R-T Axes : 088 -71 095 degrees QTc Int : 480 ms Sinus tachycardia Possible Left atrial enlargement Left axis deviation Septal infarct (cited on or before 17-MAR-2019), age undetermined T wave abnormality, consider lateral ischemia Abnormal ECG Confirmed by ERON TIRADO ([id number]), editor managing newspaper GINA BALDERRAMA ([id number]) on 05/07/2019 2:37:54 PM Referred By: ELSI Confirmed By:ERON TIRADO
[2019-05-06 07:32] VITALS: PULSE 105; RESP 22
[2019-05-06] MEDS: Ipratropium/Albuterol Sulfate 3 ML AMPUL.NEB INHALATION (07:32)
[2019-05-06] MEDS: LORazepam 2 MG/ML Syringe 0.5 MG IV (07:37)
[2019-05-06] MEDS: MethylPREDNISolone 125 MG/2 ML Vial IV (07:37)
[2019-05-06 07:38] LABS: Absolute Lymphocyte Count 1.22 X10^3/uL (0.83-4.51); Absolute Neutrophil Count 8.4 X10^3/uL (2.0-7.7); Basophil# 0.06 X10^3/uL; Basophil% 0.6 % (0-1); Eosinophil# 0.06 X10^3/uL; Eosinophils% 0.6 % (0-5); Hematocrit 35.7 % (40-54); Hemoglobin 11.5 g/dL (13.0-16.5); Lymphocyte # 1.22 X10^3/ul (4.0); Lymphocyte % 11.5 % (19-41); Mean Corp Hgb Conc 32.2 g/dL (32-36); Mean Corpuscular Hgb 25.4 pg (27.0-32.0); Mean Corpuscular Volume 78.8 fL (80-94); Mean Platelet Vol. 8.8 fl (6.2-12.0); Monocyte# 0.83 X10^3/uL; Monocyte% 7.8 % (0-10); NRBC Flagged by Analyzer 0 % (0-5); Neutrophil # 8.39 X10^3/uL (2.7-7.7); Neutrophil % 78.8 % (47-70); Platelet Count 230 K/mm3 (150-450); RBC Distribution Width CV 19.6 % (11.6-14.6); RBC Distribution Width SD 54.8 fl (35.1-43.9); Red Blood Count 4.53 M/mm3 (4.6-6.2); White Blood Count 10.6 K/mm3 (4.4-11.0)
[2019-05-06 07:58] LABS: Anion Gap 8 (5-15); BUN 19 mg/dL (7-18); BUN/Creat Ratio 28.2 RATIO (10-20); Calcium,Total 8.7 mg/dL (8.5-10.1); Chloride 101 mmol/L (98-107); Creatinine, Serum 0.67 mg/dL (0.70-1.30); EST Glomerular Filtration Rate 128 mL/min (>60); Est Glom Filt Rate - Afr Amer 155 mL/min (>60); Estimated Creatinine Clearance 113.43 ml/min; Glucose 81 mg/dL (74-106); Potassium 4.6 mmol/L (3.5-5.1); Sodium Level 132 mmol/L (136-145)
--- NOTE | 2019-05-06 08:38 | ED.DCSUM_ITS ---
- ER Visit Summary Date of Service: 05/06/19 Chief Complaint: Shortness of breath History of Present Illness: The patient is a 58 M with shortness of breath since yesterday p.m. He has a history of COPD. He said his nebulizer machine is not working. He also reports anxiety and a cough. Denies sputum or fever. Denies chest pain. Physical Examination: Afebrile and vital signs unremarkable except for heart rate of 105. His oxygen is 100% on nasal cannula. He is in no acute distress, resting when I enter the room, and then anxious appearing when he awakens. His lungs are clear in all crews. Heart is regular. Abdomen is soft and nontender. Extremities show symmetric lower extremity edema. Nontender. Neurovascularly intact. Skin unremarkable. Test Results: EKG shows sinus rhythm at a rate of 106. Nonspecific ST and T wave changes noted. Troponin normal. Hemoglobin 11.5, sodium 132, BUN 19 and creatinine 0.67. Chest x-ray showed chronic changes, COPD. Emergency Department Course and Treatment: EKG was done and the patient was placed on the monitor. He was treated with a DuoNeb and also some Ativan. He also received Solu-Medrol. On reevaluation, he is resting comfortably. 100% on his nasal cannula. Lungs are clear. No anxiety. No objective signs of difficulty breathing. No chest pain. Patient is appropriate for outpatient follow-up. He was prescribed an albuterol inhaler as well as prednisone. He will follow-up with his PCP. Treatment Plan: As above Disposition: Discharge Impression: 1. Bronchospasm 2. COPD This note was generated with [employer] software. It may contain incorrect words, spelling, and punctuation that were not noted in review of the chart prior to signing ED Disposition - Plan for ED Patient: Referrals: Ramy Davis MD [Primary Care Provider] -
--- NOTE | 2019-05-06 08:40 | ED.DEP ---
ED Disposition - Plan for ED Patient: Instructions: Copd Flare Prescriptions: Prednisone 10 mg PO UD #33 tab Prescription Printed Albuterol Inhaler [Ventolin Hfa] 1 - 2 puff INHALATION Q4H PRN PRN #1 inhaler PRN Reason: Wheezing Prescription Printed Referrals: Ramy Davis MD [Primary Care Provider] -
[2019-05-06 09:21] VITALS: BP 131/100; PULSE 113; RESP 28; O2SAT 97
--- NOTE | 2019-05-06 09:38 | ED.RN ---
pt drowsy from ativan. attempted to [place]anto brother for ride home unable to get ahold of him a this time.
[2019-05-06 10:07] VITALS: BP 159/100; PULSE 104; RESP 30; TEMP 36.7; O2SAT 96
--- NOTE | 2019-05-06 10:39 | ED.RN ---
called [facility] per pt request. pt assisted with getting ready and out to waiting room by jose
== END 2019-05-06 10:39 | disposition home or self-care (01) ==
PROVIDERS: Emergency Provider Emergency Medicine; Family Provider Internal Medicine; PCP Internal Medicine
DX: J98.01 Acute bronchospasm (principal); J44.9 Chronic obstructive pulmonary disease, unspecified; F41.9 Anxiety disorder, unspecified; I50.9 Heart failure, unspecified; I25.10 Atherosclerotic heart disease of native coronary artery without angina pectoris; D64.9 Anemia, unspecified; Z87.01 Personal history of pneumonia (recurrent); Z86.19 Personal history of other infectious and parasitic diseases; Z87.09 Personal history of other diseases of the respiratory system; Z95.810 Presence of automatic (implantable) cardiac defibrillator; Z99.81 Dependence on supplemental oxygen; Z79.82 Long term (current) use of aspirin; Z79.02 Long term (current) use of antithrombotics/antiplatelets; Z79.899 Other long term (current) drug therapy; Z72.0 Tobacco use
CPT/HCPCS: 71045; 80048; 84484; 85025; 93005; 94640; 96374; 96375; 99285; A4216

== ENCOUNTER 2019-05-08 18:34 | Inpatient (IN) | payer MEDICARE, MEDICAID, SELFPAY ==
[2019-05-08] VITALS (17 sets, daily range): BP systolic 109–157; BP diastolic 75–117; PULSE 100–120; RESP 12–36; TEMP 36.6; O2SAT 91–100; BMI 23.6; BMI 29.0
--- NOTE | 2019-05-08 18:37 | EKG12_ITS ---
Test Reason : TACHYCARDIA Blood Pressure : / mmHG Vent. Rate : 109 BPM Atrial Rate : 109 BPM P-R Int : 194 ms QRS Dur : 116 ms QT Int : 350 ms P-R-T Axes : 087 -69 096 degrees QTc Int : 471 ms Sinus tachycardia Left axis deviation Incomplete left bundle branch block ST & T wave abnormality, consider lateral ischemia Abnormal ECG Confirmed by ERON TIRADO ([id number]), mapping editor GINA BALDERRAMA ([id number]) on 05/12/2019 1:17:18 PM Referred By: ACE Confirmed By:ERON TIRADO
--- NOTE | 2019-05-08 18:45 | RAD_ITS ---
STUDY: X-RAY CHEST REASON FOR EXAM: Male, 58 years old. Short of breath TECHNIQUE: AP portable COMPARISON: May 06, 2019 FINDINGS: Lungs are mildly hyperinflated but clear.. There is no demonstrated pleural abnormality. Heart is enlarged. Normal mediastinum and alberto. Normal visualized pulmonary arteries. Mildly calcified aortic arch and descending thoracic aorta. Pacer noted on the left with electrodes in satisfactory position Normal visualized thoracic spine. Normal visualized ribs, clavicles, and shoulders. There is no demonstrated abnormality of the visualized soft tissue structures of the upper abdomen. RAD/Chest 1 View (Portable) IMPRESSION: Mild COPD and superimposed ASHD. No acute disease. Electronically Signed: Lewis Gallardo MD at 19:00 EDT , Service support ,
[2019-05-08 18:55] LABS: Allen Test POS; Base Excess -13 mmol/L (-2 to +2); Bicarbonate 13.4 mmol/L (22-26); Blood Gas Specimen Type ART; FI02 24; PO2 84 mmHG (75-100); SITE L Radial; SO2 96 % (95-99); Time Given 1845; Total Carbon Dioxide 14 mmol/L; pH 7.32 (7.35-7.45)
--- NOTE | 2019-05-08 18:56 | ED.DCSUM_ITS ---
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 Unable to obtain history other than he acknowledges he is short of breath. He is pale, tachypneic, tachycardic and hypoxic. He has paradoxical breathing. Squad states his CO2 was 15. Prior similar symptoms: Yes Recent Illness/Hospitalization: Yes - Past Medical History (1) Acute respiratory failure with hypoxemia Status: Acute (2) COPD exacerbation Status: Acute (3) Systolic CHF Status: Acute (4) Unspecified jaundice Status: Acute (5) Amphetamine abuse Status: Chronic (6) Anemia, unspecified Status: Chronic (7) Atherosclerosis of coronary artery of [place] heart without angina pectoris Status: Chronic Comment: LEFT HEART ASSESSMENT Left Ventricular Ejection Fraction: by LV Gram 10-15 % Global Hypokinesis - Severe Depressed Left Ventricular systolic function Normal Left Ventricular End Diastolic Pressure LEFT MAIN: Non-obstructive LEFT ANTERIOR DECENDING ARTERY: Previously placed stent is patent DIAGONAL 1: Ostial - Mild luminal irregularities less than 30% DIAGONAL 2: Proximal - Non-obstructive CIRCUMFLEX ARTERY: MID CIRC: Previously placed stent is patent RIGHT CORONARY ARTERY: MID RCA: Previously placed stent has instent 20 % restenosis with a new at distal edge of stent (8) COPD (chronic obstructive pulmonary disease) Status: Chronic (9) History of ischemic cardiomyopathy Status: Chronic (10) ICD (implantable cardioverter-defibrillator) in place Status: Chronic (11) Tobacco abuse Status: Chronic Past Medical History - Allergies and Home Meds Allergies/Adverse Reactions: Allergies No Known Allergies Allergy (Verified 04/08/19 09:46) Primary Care Physician: Ramy Davis MD [Primary Care Provider] - Prior records reviewed: Yes Surgical History: - Lives: Alone Smoking Status: Current every day smoker Alcohol: Occasional Drugs: - - Records history of amphetamine use - Family History Maternal Family History: Family History (Last Reviewed 04/08/19 @ 13:04 by Justin Zamarripa DO) Father CAD (coronary artery disease) Heart disease Mother CAD (coronary artery disease) Heart disease Aunt Cancer Brother Heart disease Hypertension Family History: Reports: Heart Disease Paternal Family History: Family History (Last Reviewed 04/08/19 @ 13:04 by Justin Zamarripa DO) Father CAD (coronary artery disease) Heart disease Mother CAD (coronary artery disease) Heart disease Aunt Cancer Brother Heart disease Hypertension Family History: Reports: Heart Disease Review of Systems ROS: Unable to Obtain - Secondary to severity of illness and respiratory distress Physical Exam Vital Signs/Narrative: Vital Signs Temp Pulse Resp BP Pulse Ox 05/08/19 18:43 97.9 F 117 H 36 H 109/95 H 93 05/08/19 18:36 97.9 F 118 H 22 H 109/95 H 98 Inital Vital Signs reviewed: Yes General: Well developed, Unkempt, Acute Distress Head: Normocephalic, Atraumatic Eyes: Perrl, EOMI, Scleral icterus. Negative for: Pale conjunctiva ENT: No rhinorrhea, TM's clear, Dry mucous membranes Neck: Negative for: Supple, Nontender, No lymphadenopathy, No JVD, - Cardiovascular: Regular rhythm, No murmurs, Normal S1, Tachycardia Respiratory: Chest nontender, Rales, Wheezing, Decreased Air Movement, Retractions. Negative for: No distress, CTA bilaterally Abdomen: Soft, Nontender, Nondistended Rectal: Deferred Back: Nontender, Normal Inspection Extremities: Nontender, No edema Skin: Cyanosis, - - Poor capillary refill Neurological: Cranial nerves II-XII grossly intact, Normal Strength, Normal Sensation. Negative for: Alert, Oriented x3, Normal Gait Psychological: - - Unable to determine Diagnostic/Tx/Re-eval Chest X-Ray - ED: 1 View, Read by ED Physician, Unchanged, Normal, Heart, Bony Structures, No Acute Disease, Chronic Changes - Rhythm Strip Rhythm Strip: Sinus Rhythm Rate: 111 Ectopy: PVC(s) - EKG Initial EKG Interpretation: Sinus Tachycardia - Regular rate 109. NM interval 194 ms. QRS duration 116 ms. There is evidence of a left anterior fascicular block. [place] to left. QT interval is 3 and [address]-T wave abnormalities in the lateral leads that are suggestive of ischemia. - Medical Decision Making Current patient is septic. Also need to evaluate for pneumothorax. With history coronary disease will obtain EKG and appropriate blood work as well. ABG reveals a metabolic acidosis with increased AA gradient. There is no evidence of CO2 retention. Patient has a metabolic acidosis. Because he has poor perfusion he received a liter of normal saline. Because there is a history of COPD with steroid dependency concern this may represent adrenal insufficiency. Cortisol level was obtained and he received 100 mg of Solu-Cortef, stress dose of steroids. Patient will be admitted to ICU. He was placed on BiPAP for his respiratory failure as well secondary to exacerbation of COPD. He does not have evidence of pneumonia or urinary tract infection. - Critical Care Time Critical care time (excluding procedures): 30-74 minutes, Discussing w/Patient &/or Family/Foxing Cutting Machine Operator, Discussing w/Consultants, Arranging Admission or Transfer, Performing Direct Patient Care at Bedside - Critical care time 42 minutes ED Disposition - Plan for ED Patient: Disposition: Acute Care Hospital [facility] Diagnosis: Shock, unspecified, Lactic acidosis, Respiratory failure with hypoxia, Acute exacerbation of chronic obstructive pulmonary disease (COPD), Bronchospasm Referrals: Ramy Davis MD [Primary Care Provider] -
--- NOTE | 2019-05-08 19:02 | ED.RN ---
THIS RN AT BEDSIDE WITH PATIENT. PT REFUSING TO WEAR BIPAP MASK FROM RESPIRATORY. PT REPORTS HE WANTS HIS BROTHER GREGORIO CONTACTED. NARESH RN CONTACTED BROTHER. DR. BELLO INFORMED OF PT REFUSING BIPAP. RESPIRATORY DISTRESS CONTINUES PT WITH TACHYPNEA, SOB, ACCESSORY MUSCLE USE. PT REQUESTING WATER, MOUTH SWAB GIVEN. WILL CONTINUE TO MONITOR.
[2019-05-08] MEDS: 0.9% Normal Saline 1,000 ML 150 ML IV (19:05)
[2019-05-08 19:10] LABS: ALB/GLOB Ratio 0.8 RATIO (0.9-2.4); AST(SGOT) 34 U/L (15-37); Alanine Aminotransfer ALT/SGPT 26 U/L (16-61); Albumin, Serum 3.5 g/dL (3.2-5.0); Alkaline Phosphatase 126 U/L (45-117); Anion Gap 17 (5-15); BUN 26 mg/dL (7-18); BUN/Creat Ratio 25.5 RATIO (10-20); Calcium,Total 8.9 mg/dL (8.5-10.1); Chloride 99 mmol/L (98-107); Creatinine, Serum 1.02 mg/dL (0.70-1.30); EST Glomerular Filtration Rate 79 mL/min (>60); Est Glom Filt Rate - Afr Amer 96 mL/min (>60); Estimated Creatinine Clearance 74.51 ml/min; Globulin 4.3 g/dL (2.2-4.2); Glucose 45 mg/dL (74-106); Potassium 5.4 mmol/L (3.5-5.1); Protein, Total 7.8 g/dL (6.4-8.2); Sodium Level 132 mmol/L (136-145)
[2019-05-08] MEDS: Albuterol 2.5 MG/3 ML VIAL.NEB. INHALATION (19:15)
[2019-05-08] MEDS: Ipratropium/Albuterol Sulfate 3 ML AMPUL.NEB INHALATION (19:15)
[2019-05-08 19:20] LABS: Absolute Lymphocyte Count 1.67 X10^3/uL (0.83-4.51); Absolute Neutrophil Count 11.3 X10^3/uL (2.0-7.7); Basophil# 0.03 X10^3/uL; Basophil% 0.2 % (0-1); Eosinophil# 0.01 X10^3/uL; Eosinophils% 0.1 % (0-5); Hemoglobin 13.6 g/dL (13.0-16.5); Lymphocyte # 1.67 X10^3/ul (4.0); Lymphocyte % 11.7 % (19-41); Mean Corp Hgb Conc 30.2 g/dL (32-36); Mean Corpuscular Hgb 25.3 pg (27.0-32.0); Mean Corpuscular Volume 83.8 fL (80-94); Monocyte# 1.18 X10^3/uL; Monocyte% 8.3 % (0-10); NRBC Flagged by Analyzer 0.1 % (0-5); Neutrophil # 11.27 X10^3/uL (2.7-7.7); Neutrophil % 78.8 % (47-70); POSITIVE MORPHOLOGY YES; Platelet Count 260 K/mm3 (150-450); RBC Distribution Width CV 20.7 % (11.6-14.6); RBC Distribution Width SD 61.2 fl (35.1-43.9); Red Blood Count 5.37 M/mm3 (4.6-6.2); White Blood Count 14.3 K/mm3 (4.4-11.0)
[2019-05-08] MEDS: MethylPREDNISolone 125 MG/2 ML Vial IV (19:29)
[2019-05-08 19:30] LABS: International Normalized Ratio 1.8; Partial Thromboplast Time 27.2 Seconds (24.1-36.2); Prothrombin Time (Protime)PT. 20.7 SECONDS (11.7-14.9)
[2019-05-08] MEDS: Ceftriaxone 1 GM/50 ML BAG IV (19:30)
[2019-05-08 19:36] LABS: Differential Indicated SCAN CRITERIA MET
[2019-05-08 19:41] LABS: Anisocytosis RARE; Platelet Estimate ADEQUATE (ADEQ); Red Cell Morphology N CHROM NORMAL (NORM C&C)
[2019-05-08 19:42] LABS: Ovalocyte RARE
[2019-05-08] MEDS: Dextrose 50%-Water 25 GM/50 ML DISP.SYRIN IV (20:01)
[2019-05-08 20:04] LABS: Lactic Acid 10.4 mmol/L (0.4-2.0)
--- NOTE | 2019-05-08 20:12 | PCM.HP.STD ---
Problem List (1) Acute respiratory failure Status: Acute (2) Lactic acidosis Status: Acute History of Present Illness Date of Admission: 05/08/19 Chief Complaint: shortness of breath The patient is a 58 year old M with a significant history of COPD; tobacco abuse; ischemic cardiomyopathy with ejection fraction of 15% status post stents and ICD; who presented to the emergency department with severe shortness of breath. Associated with his symptoms is productive cough. Most of the history was taken from emergency department doctor because at the time of examination patient was on a BiPAP and was difficult for him to talk. At the emergency department patient was found to have potassium of 5.4; sodium of 132 and lactic acid of 10.4. Also, his white count was 14.3. Emergency department doctor was concerned about adrenal failure since patient is on home prednisone. So cortisol level was obtained and patient was given Solu-Cortef and Solu-Medrol. Patient received ceftriaxone at the emergency department. Emergency department doctor reported wheezing on examination. Past Medical History Past Medical History (Chronic Problems): Chronic Problems (Last Reviewed 05/08/19 @ 21:50 by Marcus Mi MD) Acute exacerbation of chronic obstructive pulmonary disease (COPD) (Chronic) Acute and chronic respiratory failure with hypoxia (Chronic) COPD exacerbation (Chronic) Dyspnea (Chronic) History of ischemic cardiomyopathy (Chronic) Anemia, unspecified (Chronic) Unintentional weight loss (Chronic) Amphetamine abuse (Chronic) Chronic respiratory failure with hypoxia (Chronic) Acute and chronic respiratory failure with hypoxia (Chronic) Acute on chronic systolic CHF (congestive heart failure) (Chronic) Elevated troponin (Chronic) ICD (implantable cardioverter-defibrillator) in place (Chronic) History of coronary artery stent placement (Chronic) PCI-RCA and CX Atherosclerosis of coronary artery of [place] heart without angina pectoris (Chronic) LEFT HEART ASSESSMENT Left Ventricular Ejection Fraction: by LV Gram 10-15 % Global Hypokinesis - Severe Depressed Left Ventricular systolic function Normal Left Ventricular End Diastolic Pressure LEFT MAIN: Non-obstructive LEFT ANTERIOR DECENDING ARTERY: Previously placed stent is patent DIAGONAL 1: Ostial - Mild luminal irregularities less than 30% DIAGONAL 2: Proximal - Non-obstructive CIRCUMFLEX ARTERY: MID CIRC: Previously placed stent is patent RIGHT CORONARY ARTERY: MID RCA: Previously placed stent has instent 20 % restenosis with a new at distal edge of stent Iron deficiency anemia (Chronic) COPD (chronic obstructive pulmonary disease) (Chronic) Tobacco abuse (Chronic) Medical non-compliance (Chronic) Ischemic cardiomyopathy (Chronic) Medical History: Medical History (Last Reviewed 05/09/19 @ 00:04 by Marcus Mi MD) Atherosclerosis of coronary artery of [place] heart without angina pectoris (Chronic) I25.10 LEFT HEART ASSESSMENT Left Ventricular Ejection Fraction: by LV Gram 10-15 % Global Hypokinesis - Severe Depressed Left Ventricular systolic function Normal Left Ventricular End Diastolic Pressure LEFT MAIN: Non-obstructive LEFT ANTERIOR DECENDING ARTERY: Previously placed stent is patent DIAGONAL 1: Ostial - Mild luminal irregularities less than 30% DIAGONAL 2: Proximal - Non-obstructive CIRCUMFLEX ARTERY: MID CIRC: Previously placed stent is patent RIGHT CORONARY ARTERY: MID RCA: Previously placed stent has instent 20 % restenosis with a new at distal edge of stent Acute respiratory failure with hypoxemia (Acute) J96.01 Iron deficiency anemia (Chronic) D50.9 COPD (chronic obstructive pulmonary disease) (Chronic) J44.9 Tobacco abuse (Chronic) Z72.0 Medical non-compliance (Chronic) Z91.19 Ischemic cardiomyopathy (Chronic) I25.5 Acute on chronic systolic (congestive) heart failure I50.23 Restless leg syndrome G25.81 Acute bronchitis (Resolved) J20.9 COPD exacerbation (Resolved) J44.1 Recent discharge 12/14/17 following treatment for acute on chronic systolic CHF exacerbation, acute COPD exacerbation with acute hypoxic respiratory failure and MRSA HCAP PNA. HCAP (healthcare-associated pneumonia) (Resolved) J18.9 Recent discharge 12/14/17 following treatment for acute on chronic systolic CHF exacerbation, acute COPD exacerbation with acute hypoxic respiratory failure and MRSA HCAP PNA. Hypotension (Resolved) I95.9 MRSA (methicillin resistant Staphylococcus aureus) infection (Resolved) A49.02 Recent discharge 12/14/17 following treatment for acute on chronic systolic CHF exacerbation, acute COPD exacerbation with acute hypoxic respiratory failure and MRSA HCAP PNA. NSVT (nonsustained ventricular tachycardia) (Resolved) I47.2 Near syncope (Resolved) R55 Elevated troponin (Inactive) R74.8 Allergies No Known Allergies Allergy (Verified 04/08/19 09:46) Home Medications: Ambulatory Orders Medication Instructions Recorded Albuterol Inhaler [Ventolin Hfa] 2 puff INHALATION 4X/DAY #1 inhaler 03/25/19 Aspirin E.C. [Ecotrin] 81 mg PO DAILY #30 tab 06/25/19 Atorvastatin Calcium [Lipitor] 80 mg PO QHS #30 tab 03/25/19 Carvedilol [Coreg (Beta Fletcher)] 6.25 mg PO BID #60 tab 03/25/19 Clopidogrel Bisulfate [Plavix] 75 mg PO DAILY #30 tab 03/25/19 Ferrous Gluconate 324 mg PO BIDCM #30 tab 03/25/19 Furosemide [Lasix] 40 mg PO BID #60 tab 03/25/19 Isosorbide Mononitrate [Imdur] 30 mg PO DAILY #30 tab 03/25/19 Losartan Potassium [Cozaar] 25 mg PO DAILY #30 tab 03/25/19 Potassium Chloride [K-Dur] 20 meq PO DAILY #30 tab 03/25/19 predniSONE tablet 2 tab PO DAILY@0800 #8 tab 04/10/19 Albuterol Inhaler [Ventolin Hfa] 1 - 2 puff INHALATION Q4H PRN PRN 05/06/19 #1 inhaler Prednisone 10 mg PO UD #33 tab 05/06/19 Surgical History: Surgical History (Last Reviewed 05/09/19 @ 00:04 by Marcus Mi MD) ICD (implantable cardioverter-defibrillator) in place (Chronic) Z95.810 History of coronary artery stent placement (Chronic) Z95.5 PCI-RCA and CX History of coronary artery stent placement Z95.5 [id number] and Cx History of left heart catheterization Onset Date: 12/14/17 Z98.890 CORONARY ANGIOGRAPHY DOMINANCE: Right Dominant LEFT HEART ASSESSMENT Left Ventricular Ejection Fraction: by LV Gram 10-15 % Global Hypokinesis - Severe Depressed Left Ventricular systolic function Normal Left Ventricular End Diastolic Pressure LEFT MAIN: Non-obstructive LEFT ANTERIOR DECENDING ARTERY: Previously placed stent is patent DIAGONAL 1: Ostial - Mild luminal irregularities less than 30% DIAGONAL 2: Proximal - Non-obstructive CIRCUMFLEX ARTERY: MID CIRC: Previously placed stent is patent RIGHT CORONARY ARTERY: MID RCA: Previously placed stent has instent 20 % restenosis with a new at distal edge of stent Surgical History: - Psychiatric History: No pertinent psych hx Lives: Alone Smoking Status: Current every day smoker Alcohol: Occasional Drugs: - - Records history of amphetamine use - *Family History Maternal Family History: Family History (Last Reviewed 05/08/19 @ 21:50 by Marcus Mi MD) Father CAD (coronary artery disease) Heart disease Mother CAD (coronary artery disease) Heart disease Aunt Cancer Brother Heart disease Hypertension History Items: Heart Disease Paternal Family History: Family History (Last Reviewed 05/08/19 @ 21:50 by Marcus Mi MD) Father CAD (coronary artery disease) Heart disease Mother CAD (coronary artery disease) Heart disease Aunt Cancer Brother Heart disease Hypertension History Items: Heart Disease Review of Systems Unable to obtain accurate/complete ROS d/t: Patient on bipap VTE Information - Inpt Only VTE Present on Admission: No VTE Mechan Device Prophylaxis: None VTE Pharm Prophylaxis ordered?: Yes Patient Problems: Active and Suspected Problems (Last Reviewed 05/08/19 @ 21:50 by Marcus Mi MD) Acute respiratory failure (Acute) Lactic acidosis (Acute) Shock, unspecified (Acute) Lactic acidosis (Acute) Respiratory failure with hypoxia (Acute) Bronchospasm (Acute) - Physical Exam General: Alert, Oriented x3, Cooperative, - - Patient on bipap HEENT: Atraumatic, Normocephalic Neck: Supple, Trachea Midline Lungs: Diminished, Tachypneic, Using Accessory Muscles, - - Conversational dyspnea Cardiovascular: No murmurs, Tachycardic Abdomen: Bowel Sounds Present, Soft, Non Tender Extremities: No edema, Capillary Refill Less than 3 Seconds Skin: - - Cold bilateral extremities; varicose veins of bilateral lower extremities. DP pulses not palpable. Musculoskeletal: No Tenderness to Palpation of Joints or Extremities Neurological: Cranial nerves II-XII grossly intact Psych/Mental Status: Normal Affect, Appropriate Vital Signs Temp Pulse Resp BP Pulse Ox 97.9 F 103 H 26 H 127/75 H 98 05/08/19 18:43 05/08/19 20:00 05/08/19 20:00 05/08/19 20:00 05/08/19 20:00 Oxygen Flow Rate (L/min) 28 Oxygen Delivery Method Bi-pap Weight: 70.3 kg Body Mass Index (BMI) 23.6 Finger Stick Blood Glucose 130 Laboratory Tests Past 24 Hrs 05/08/19 05/08/19 05/08/19 18:45 18:45 18:51 WBC RBC Hgb Hct MCV MCH MCHC RDW Std Deviation RDW Coeff of Linda Plt Count MPV Immature Gran % (Auto) Neut % (Auto) Lymph % (Auto) [place] % (Auto) Eos % (Auto) Baso % (Auto) Absolute Neuts (auto) Absolute Lymphs (auto) Nucleated RBC % Platelet Estimate RBC Morphology Anisocytosis Ovalocytes PT INR APTT Specimen Type ART Sample Site L Radial pH 7.32 L Bicarbonate Actual 13.4 L POC Total CO2 14 Base Excess -13 L O2 Saturation 96 O2 % 24 ABG pCO2 26.0 L ABG pO2 84 Alexis Test POS O2 Delivery Device Vent Mask Blood Gas Notified Whom ED MD Blood Gas Notified Time 1845 Sodium 132 L Potassium 5.4 H Chloride 99 Carbon Dioxide 16.0 L Anion Gap 17 H BUN 26 H Creatinine 1.02 Estim Creat Clear Calc 74.51 Est GFR (MDRD) Af Amer 96 Est GFR (MDRD) Non-Af 79 BUN/Creatinine Ratio 25.5 H Glucose 45 L Lactic Acid Calcium 8.9 Total Bilirubin 3.00 H AST 34 ALT 26 Alkaline Phosphatase 126 H Total Protein 7.8 Albumin 3.5 Globulin 4.3 H Albumin/Globulin Ratio 0.8 L Cortisol Pending 05/08/19 05/08/19 05/08/19 19:00 19:00 19:00 WBC 14.3 H RBC 5.37 Hgb 13.6 Hct 45.0 MCV 83.8 MCH 25.3 L MCHC 30.2 L RDW Std Deviation 61.2 H RDW Coeff of Linda 20.7 H Plt Count 260 MPV 9.0 Immature Gran % (Auto) 0.900 Neut % (Auto) 78.8 H Lymph % (Auto) 11.7 L [place] % (Auto) 8.3 Eos % (Auto) 0.1 Baso % (Auto) 0.2 Absolute Neuts (auto) 11.3 H Absolute Lymphs (auto) 1.67 Nucleated RBC % 0.1 Platelet Estimate ADEQUATE RBC Morphology N CHROM Anisocytosis RARE Ovalocytes RARE PT 20.7 H INR 1.8 APTT 27.2 Specimen Type Sample Site pH Bicarbonate Actual POC Total CO2 Base Excess O2 Saturation O2 % ABG pCO2 ABG pO2 Alexis Test O2 Delivery Device Blood Gas Notified Whom Blood Gas Notified Time Sodium Potassium Chloride Carbon Dioxide Anion Gap BUN Creatinine Estim Creat Clear Calc Est GFR (MDRD) Af Amer Est GFR (MDRD) Non-Af BUN/Creatinine Ratio Glucose Lactic Acid 10.4 H* Calcium Total Bilirubin AST ALT Alkaline Phosphatase Total Protein Albumin Globulin Albumin/Globulin Ratio Cortisol Assessment/Plan All Active Problems (Last Reviewed 05/08/19 @ 21:50 by Marcus Mi MD) Acute respiratory failure (Acute) Lactic acidosis (Acute) Shock, unspecified (Acute) Lactic acidosis (Acute) Respiratory failure with hypoxia (Acute) Bronchospasm (Acute) Gram-negative pneumonia (Ruled-out) Unspecified jaundice (Acute) Lactic acidosis (Resolved) Sinus tachycardia by electrocardiogram (Resolved) Leukocytosis (Resolved) Hyponatremia (Resolved) Hypoxia (Acute) COPD exacerbation (Acute) Acute respiratory failure with hypoxia (Acute) Septic shock (Resolved) Severe sepsis (Resolved) Systolic CHF (Acute) Septic shock (Ruled-out) COPD with acute exacerbation (Acute) Acute respiratory failure with hypoxemia (Acute) Acute bronchitis (Resolved) COPD exacerbation (Resolved) HCAP (healthcare-associated pneumonia) (Resolved) Hypotension (Resolved) MRSA (methicillin resistant Staphylococcus aureus) infection (Resolved) NSVT (nonsustained ventricular tachycardia) (Resolved) Near syncope (Resolved) The patient is a 58 year old M with a significant history of COPD; tobacco abuse; ischemic cardiomyopathy with ejection fraction of 15% status post stents and ICD; who presented to the emergency department with severe shortness of breath consistent with acute respiratory distress. Acute respiratory distress Etiology is unclear at this time. Different diagnoses include acute COPD exacerbation; PE or other Importantly pH was 7.32. PCO2 was rather low. Bicarbonate was 13.4 showed the patient is in metabolic acidosis. His lactic acid was severely elevated at 10.4. We will continue patient on BiPAP that was done at the emergency department. Patient received Solu-Medrol the emergency department continue Solu-Medrol. Also patient received was DuoNeb and as albuterol emergency department. Continue scheduled DuoNeb and as needed albuterol. We will get CTPA of her chest to rule out pulmonary embolism. Received NSS bolus in the emergency department and NSS at maintenance rate was continued. Because of history of ischemic cardiomyopathy we will be cautious of IV fluids. However because of hypoglycemia at the emergency department we will start patient on D5 half-normal saline 75 mL's per hour. Trend lactic acid Received ceftriaxone at the emergency department. Will start patient on azithromycin for probable COPD exacerbation. We will admit patient to intensive care unit and consult scientific informatics leader. Hypoglycemia His glucose on BMP on presentation was 45. Patient received half an amp of D50. Will place patient on D5 half-normal saline at 75 mL's per hour repeat blood glucose checks. CHF Echocardiogram on 09/27/2018 among others showed estimated EF of 15%. Diastolic function was indeterminate. On home Lasix and potassium. Received IV fluids at this time because of lactic acidosis.Clinical monitoring. Daily weights. Ischemic cardiomyopathy/history of coronary stents/permanent pacemaker and ICD On Aspirin; Plavix; Coreg; Imdur and losartan. Hold secondary to npo while on bipap Hypertension On presentation his blood pressure was not within goal On home coreg; Imdur; Lasix; losartan. PRN labetalol added since patient is n.p.o. Trend blood pressure . Probable Peripheral artery Disease Get Duplex of Bilateral Lower Extremities. Patient Has Bilateral Cold Feet and Pulses Were Not Palpable. Hyponatremia On presentation his sodium was 132. Of note patient have had low sodium level in the past. Mild Trend Tobacco abuse: counselled. Decline nicotine patch. DVT prophylaxis Subcutaneous Lovenox. Code Visit Inpatient E&M: 88791 Init Hosp L3
[2019-05-08] MEDS: Hydrocortisone Sod Succinate 100 MG/2 ML Vial IV (21:17)
[2019-05-08] MEDS: 0.9% Normal Saline 1,000 ML 999 ML IV (21:17)
[2019-05-08 21:26] LABS: Bedside Glucose 123 mg/dL (70-110)
[2019-05-08] MEDS: 0.9% Normal Saline 1,000 ML 500 ML IV (21:45)
--- NOTE | 2019-05-08 22:03 | CT_ITS ---
STUDY: CTA CHEST REASON FOR EXAM: Male, 58 years old. Short of breath RADIATION DOSAGE (If Supplied By Facility): CTDIvol = ( 12.45 ) mGy, DLP = ( 853.86 ) mGycm TECHNIQUE: The examination was performed with the intravenous administration of 75 IV Isovue 370. Post-processing of the angiographic images was performed, with multiplanar reformation and 3D reconstruction. Individualized dose optimization techniques were used for this CT. COMPARISON: Chest radiograph on May 08, 2019 CTA of the chest November 23, 2018 FINDINGS: Examination of the pulmonary arteries is limited due to significant respiratory motion artifact.. There is no definitive evidence for intraluminal clot within the main pulmonary arteries to the level of the segmental vessels. Atherosclerotic changes of the aorta without evidence for aneurysm There is no demonstrated aortic dissection. Heart is enlarged. Small subcentimeter bilateral hilar and mediastinal nodes Normal visualized trachea and bronchi. The lungs are well expanded. Mild diffuse interstitial thickening and emphysematous changes. There is thickening of the bronchial robles in the lower lobes. There is mild interstitial infiltrate in the left upper and lower lobe. There is a tiny nodule at the right lung base anteriorly measuring approximately 4 mm in size Normal pleura. Normal chest wall structures. Dorsal spine demonstrates spondylosis Normal visualized upper abdomen. CT/CTA Chest W/WO Contrast IMPRESSION: Minor interstitial changes with mild focal interstitial infiltrate or atelectasis in the left upper and lower lobes. No definitive evidence for pulmonary embolus given less than optimal study due to motion artifact. If strong clinical suspicion for pulmonary embolus Doppler study of the deep venous system of lower extremities may be helpful for further evaluation Electronically Signed: Lewis Gallardo MD at 22:43 EDT , Service support ,
--- NOTE | 2019-05-08 22:48 | ADU_ITS ---
Reason For Study: Coldness of bilateral feet Right Velocities Left Velocities Ext. Iliac Artery, dist = 61.4 cm./sec. Ext Iliac Artery, dist = 102.1 cm./sec. Common Femoral Artery, mid = 68.3 cm./sec. Common Femoral Artery, mid = 140.2 cm./sec. Supf Femoral Artery, prox = 76.5 cm./sec. Supf. Femoral Artery, prox = 80.2 cm./sec. Supf Femoral Artery, mid = 80.2 cm./sec. Supf. Femoral Artery, mid = 72.9 cm./sec. Supf Femoral Artery, dist. = 48.3 cm./sec. Supf. Femoral Artery, dist = 45 cm./sec. Profunda Femoral Artery = 97.8 cm./sec. Profunda Femoral Artery = 87.5 cm./sec. Popliteal Artery, prox. = 45 cm./sec. Popliteal Artery, proximal, = 48.3 cm./sec. Popliteal Artery, mid = 48.2 cm./sec. Popliteal Artery, mid = 42.8 cm./sec. Popliteal Artery, dist = 57 cm./sec. Popliteal Artery, distal = 43.9 cm./sec. Post. Tibial Artery, prox = 22.1 cm./sec. Post. Tibial Artery, prox = 69.1 cm./sec. Post. Tibial Artery, mid = 11.5 cm./sec. Post Tibial Artery, mid = 32.9 cm./sec. Post. Tibial Artery, dist = 24.6 cm./sec. Post Tibial Artery, dist. = 39.6 cm./sec. Peroneal Artery, prox = 50.5 cm./sec. Peroneal Artery, prox = 40.5 cm./sec. Peroneal Artery, mid = 60.1 cm./sec. Peroneal Artery, mid = 37 cm./sec. Peroneal Artery,dist = 48.8 cm./sec. Peroneal Artery,dist. = 36.7 cm./sec. Ant. Tibial Artery, prox = 20.1 cm./sec. Ant.Tibial Artery, prox = 47.1 cm./sec. Ant. Tibial Artery, mid = 19.1 cm./sec. Ant Tibial Artery, mid = 49 cm./sec. Ant. Tibial Artery, dist = 13.6 cm./sec. Ant. Tibial Artery, distal = 33.9 cm./sec. Procedure Exam performed portable in ICU/CCU. Interpretation Summary Calcific plague right external iliac, common femoral, superficial femoral, profunda femoral arteries 50-99% stenosis right posterior tibial artery 20-49% stenosis right anterior tibial artery Irregular plague left external iliac, common femoral, profunda femoral,and superficial femoral arteries 20-49% stenosis left posterior tibial artery mid. 20-49% stenosis left peroneal artery Ordering Physician: Marcus Mi Referring Physician: Ramy Davis Performed By: So Nayak RVT
[2019-05-08 23:15] LABS: Reflex Lactate? Y
[2019-05-08] MEDS: Dext 5%-0.45% NS 1,000 ML 75 ML IV (23:19)
--- NOTE | 2019-05-08 23:22 | NURSING ---
2300: 2100ml sepsis fluids infused at this time. IVF started in ER. Will draw repeat lactic acid
[2019-05-08 23:57] LABS: Lactic Acid 4.8 mmol/L (0.4-2.0)
[2019-05-09] VITALS (28 sets, daily range): BP systolic 73–153; BP diastolic 49–114; PULSE 91–117; RESP 12–34; TEMP 36.4–37.2; O2SAT 80–100
--- NOTE | 2019-05-09 00:06 | VDLE_ITS ---
Reason For Study: Shortness of breath RIGHT LEFT GSV is normal. GSV is normal. CFV is compressible, spontaneous, phasic, CFV is compressible, spontaneous, phasic, competent and demonstrates normal competent, and demonstrates normal augmentation. augmentation. FV is compressible, spontaneous, phasic, FV is compressible, spontaneous, phasic, competent and demonstrates normal competent and demonstrates normal augmentation. augmentation. POP V is compressible, spontaneous, phasic, POP V is compressible, spontaneous, phasic, competent and demonstrates normal competent and demonstrates normal augmentation. augmentation. T/P Trunk is compressible. T/P Trunk is compressible. PTV is compressible. PTV is compressible. RT PerV is compressible. LT PerV is compressible. Procedure Exam performed portable in ICU/CCU. A preliminary report was called and/or faxed to ICU. Interpretation Summary No evidence for acute deep venous thrombosis bilateral lower extremities with patent and compressible bilateral great saphenous veins. Ordering Physician: Marcus Mi Referring Physician: Ramy Davis Performed By: So Nayak RVT
[2019-05-09 00:16] LABS: Bedside Glucose 127 mg/dL (70-110)
[2019-05-09 00:16] LABS: Bedside Glucose 158 mg/dL (70-110)
[2019-05-09] MEDS: LORazepam 2 MG/ML Syringe 1 MG IV (00:50)
[2019-05-09] MEDS: 0.9% NaCl Peripheral Flush Adult/Peds IV ×2 (00:53→16:05)
[2019-05-09 04:13] LABS: Absolute Lymphocyte Count 0.38 X10^3/uL (0.83-4.51); Absolute Neutrophil Count 10.8 X10^3/uL (2.0-7.7); Basophil# 0.03 X10^3/uL; Basophil% 0.3 % (0-1); Eosinophil# 0.01 X10^3/uL; Eosinophils% 0.1 % (0-5); Hemoglobin 12.8 g/dL (13.0-16.5); Lymphocyte # 0.38 X10^3/ul (4.0); Lymphocyte % 3.2 % (19-41); Mean Corp Hgb Conc 29.1 g/dL (32-36); Mean Corpuscular Hgb 24.7 pg (27.0-32.0); Mean Corpuscular Volume 84.8 fL (80-94); Mean Platelet Vol. 9.4 fl (6.2-12.0); Monocyte# 0.43 X10^3/uL; Monocyte% 3.7 % (0-10); NRBC Flagged by Analyzer 0 % (0-5); Neutrophil # 10.77 X10^3/uL (2.7-7.7); Neutrophil % 91.5 % (47-70); POSITIVE DIFFERENTIAL YES; POSITIVE MORPHOLOGY YES; Platelet Count 212 K/mm3 (150-450); RBC Distribution Width CV 20.6 % (11.6-14.6); RBC Distribution Width SD 61.3 fl (35.1-43.9); Red Blood Count 5.19 M/mm3 (4.6-6.2); White Blood Count 11.8 K/mm3 (4.4-11.0)
[2019-05-09 04:15] LABS: Differential Indicated SCAN CRITERIA MET
[2019-05-09 04:26] LABS: Bedside Glucose 93 mg/dL (70-110)
[2019-05-09 04:27] LABS: Anion Gap 18 (5-15); BUN 29 mg/dL (7-18); BUN/Creat Ratio 28.7 RATIO (10-20); Calcium,Total 8.4 mg/dL (8.5-10.1); Chloride 103 mmol/L (98-107); Creatinine, Serum 1.01 mg/dL (0.70-1.30); EST Glomerular Filtration Rate 80 mL/min (>60); Est Glom Filt Rate - Afr Amer 97 mL/min (>60); Estimated Creatinine Clearance 75.25 ml/min; Glucose 100 mg/dL (74-106); Potassium 5.8 mmol/L (3.5-5.1); Sodium Level 135 mmol/L (136-145)
[2019-05-09 04:49] LABS: Squamous Epithelial Cells - UA 0 SEEN /hpf (0-5)
[2019-05-09 04:53] LABS: Color, Urine Yellow (Yellow); Glucose, Dipstick Normal (Normal); Ketone-Dipstick 5 mg/dl (Negative); Leukocyte Esterase-Dipstick 25 /ul (Negative); Nitrite-Dipstick Negative (Negative); Occult Blood-Urine 25 /ul (Negative); Protein-Dipstick 100 mg/dl (Negative); Urine Bilirubin Dipstick Negative (Negative); Urine Clarity Clear (Clear); Urine Urobilinogen 1 mg/dl (Normal)
[2019-05-09 04:59] LABS: Bacteria RARE /hpf (None Seen); Hyaline Cast 0-5 SEEN /lpf (0-5); Mucous, Urine 1+ /hpf (<or=2+); Red Blood Cells-Urine 0-5 SEEN /hpf (0-5); White Blood Cells 0-5 SEEN /hpf (0-5)
[2019-05-09 05:09] LABS: Crenated RBC 1+; Differential Comment SCANNED; Hypochromasia 2+; Polychromasia 1+
[2019-05-09] MEDS: Ipratropium/Albuterol Sulfate 3 ML AMPUL.NEB INHALATION ×3 (06:51→14:29)
[2019-05-09 08:15] LABS: Bedside Glucose 182 mg/dL (70-110)
--- NOTE | 2019-05-09 08:25 | PN_ITS ---
Patient Problems: Active and Suspected Problems (Last Reviewed 05/09/19 @ 00:04 by Marcus Mi MD) Acute respiratory failure (Acute) Lactic acidosis (Acute) Shock, unspecified (Acute) Lactic acidosis (Acute) Respiratory failure with hypoxia (Acute) Bronchospasm (Acute) Subjective: Patient looks confused and disoriented. He is disoriented to time and person. Patient is mild tachycardic, heart rate in 100s. No fever. Patient was put on BiPAP 21% but could not tolerate even after dose of Ativan therefore placed on oxygen through nasal cannula. She was found drowsy yesterday. Urine output 630 mL with a straight cath. Positive fluid balance 2500 Vitals/I&O's: Vital Signs Temp Pulse Resp BP Pulse Ox 97.6 F L 108 H 18 135/95 H 100 05/09/19 04:00 05/09/19 07:55 05/09/19 06:52 05/09/19 06:00 05/09/19 06:52 Oxygen Flow Rate (L/min) 2 Oxygen Delivery Method Nasal Cannula Weight: 187 lb 2.759 oz Body Mass Index (BMI) 29.0 Finger Stick Blood Glucose 123 Intake and Output for Last 24 Hours 05/07/19 05/08/19 05/09/19 23:59 23:59 23:59 Intake Total 2400 / 2702 736 / 736 Output Total 600 / 600 Balance 2400 / 2702 136 / 136 General: Confused, Disoriented, Lethargic HEENT: Atraumatic, PERRLA, EOMI, Normocephalic Oral: Dry Mucosa Neck: Supple, No JVD, Negative Carotid Bruits Lungs: Diminished - Air entry is diminished., Rhonchi Cardiovascular: Normal S1, Normal S2, No murmurs, - - ICD present Abdomen: Bowel Sounds Present, Soft, Non Tender, Non-Distended Extremities: Edema Skin: No rashes, No breakdown Musculoskeletal: Arthritic Changes Laboratory Results 05/08/19 18:45: Sodium 132 L, Potassium 5.4 H, Chloride 99, Carbon Dioxide 16.0 L, Anion Gap 17 H, BUN 26 H, Creatinine 1.02, Estim Creat Clear Calc 74.51, Est GFR (MDRD) Af Amer 96, Est GFR (MDRD) Non-Af 79, BUN/Creatinine Ratio 25.5 H, Glucose 45 L, Calcium 8.9, Total Bilirubin 3.00 H, AST 34, ALT 26, Alkaline Phosphatase 126 H, Total Protein 7.8, Albumin 3.5, Globulin 4.3 H, Albumin/Globulin Ratio 0.8 L 05/08/19 18:51: Specimen Type ART, Sample Site L Radial, pH 7.32 L, Bicarbonate Actual 13.4 L, POC Total CO2 14, Base Excess -13 L, O2 Saturation 96, O2 % 24, ABG pCO2 26.0 L, ABG pO2 84, Alexis Test POS, O2 Delivery Device Vent Mask, Blood Gas Notified Whom ED , Blood Gas Notified Time 1845 05/08/19 19:00: WBC 14.3 H, RBC 5.37, Hgb 13.6, Hct 45.0, MCV 83.8, MCH 25.3 L, MCHC 30.2 L, RDW Std Deviation 61.2 H, RDW Coeff of Linda 20.7 H, Plt Count 260, MPV 9.0, Immature Gran % (Auto) 0.900, Neut % (Auto) 78.8 H, Lymph % (Auto) 11.7 L, [place] % (Auto) 8.3, Eos % (Auto) 0.1, Baso % (Auto) 0.2, Absolute Neuts (auto) 11.3 H, Absolute Lymphs (auto) 1.67, Nucleated RBC % 0.1, Platelet Estimate ADEQUATE, RBC Morphology N CHROM, Anisocytosis RARE, Ovalocytes RARE 05/08/19 19:00: PT 20.7 H, INR 1.8, APTT 27.2 05/08/19 19:00: Lactic Acid 10.4 H* 05/08/19 19:00: Cortisol 38.00 H 05/08/19 21:20: POC Glucose 123 H 05/08/19 23:00: Lactic Acid 4.8 H* 05/08/19 23:27: POC Glucose 127 H 05/09/19 00:09: POC Glucose 158 H 05/09/19 04:00: WBC 11.8 H, RBC 5.19, Hgb 12.8 L, Hct 44.0, MCV 84.8, MCH 24.7 L , MCHC 29.1 L, RDW Std Deviation 61.3 H, RDW Coeff of Linda 20.6 H, Plt Count 212, MPV 9.4, Immature Gran % (Auto) 1.200 H, Neut % (Auto) 91.5 H, Lymph % (Auto) 3.2 L, [facility] % (Auto) 3.7, Eos % (Auto) 0.1, Baso % (Auto) 0.3, Absolute Neuts (auto) 10.8 H, Absolute Lymphs (auto) 0.38 L, Nucleated RBC % 0, Differential Comment SCANNED, Polychromasia 1+, Hypochromasia 2+, Crenated Cell 1+ 05/09/19 04:00: Sodium 135 L, Potassium 5.8 H, Chloride 103, Carbon Dioxide 14.0 L, Anion Gap 18 H, BUN 29 H, Creatinine 1.01, Estim Creat Clear Calc 75.25, Est GFR (MDRD) Af Amer 97, Est GFR (MDRD) Non-Af 80, BUN/Creatinine Ratio 28.7 H, Glucose 100, Calcium 8.4 L 05/09/19 04:06: POC Glucose 93 05/09/19 04:40: Urine Color Yellow, Urine Clarity Clear, Urine pH 5.0, Ur Specific [place] 1.020, Urine Protein 100 H, Urine Glucose (UA) Normal, Urine Ketones 5 H, Urine Occult Blood 25 H, Urine Nitrite Negative, Urine Bilirubin Negative, Urine Urobilinogen 1 H, Ur Leukocyte Esterase 25 H, Urine RBC 0-5 SEEN, Urine WBC 0-5 SEEN, Ur Squamous Epith Cells 0 SEEN, Urine Bacteria RARE, Hyaline Casts 0-5 SEEN, Urine Mucus 1+ 05/09/19 08:12: POC Glucose 182 H Current Medications Albuterol Sulfate (Ventolin Aerosols) 2.5 mg INHALATION Q2H PRN PRN PRN Reason: SOB/Wheezing Albuterol/Ipratropium (Duoneb) 3 ml INHALATION Q4HWA.RT [facility] Last Admin: 05/09/19 06:51 Dose: 3 ml Documented by: Dextrose (D50w Syringe) 0 gm IV X1 PRN; Protocol PRN Reason: Hypoglycemia Glucagon () 1 mg IM .X1 PRN PRN Reason: Hypoglycemia Azithromycin 500 mg/ Dextrose 255 mls @ 250 mls/hr IV Q24@2200 [facility] Last Admin: 05/08/19 23:21 Dose: 250 mls/hr Documented by: Dextrose/Sodium Chloride () 1,000 mls @ 75 mls/hr IV .[id number] [facility] Last Admin: 05/08/19 23:19 Dose: 75 mls/hr Documented by: Sodium Chloride () 250 mls @ 15 mls/hr IV .[id number] PRN PRN Reason: SALINE FLUSH Labetalol HCl (Trandate) 10 mg IV Q4H PRN PRN PRN Reason: SBP > 160 Methylprednisolone (Solu-Medrol) 40 mg IV Q8 [facility] Last Admin: 05/09/19 05:40 Dose: 40 mg Documented by: Ondansetron HCl (Zofran) 4 mg IV Q8H PRN PRN PRN Reason: NAUSEA/VOMITING Sodium Chloride () 10 - 40 ml IV UD PRN PRN Reason: SALINE FLUSH Last Admin: 05/09/19 00:53 Dose: 40 ml Documented by: Medical Necessity - Tobacco Use Smoking Status: Current every day smoker Assessment/Plan All Active Problems (Last Reviewed 05/09/19 @ 00:04 by Marcus Mi MD) Acute respiratory failure (Acute) Lactic acidosis (Acute) Shock, unspecified (Acute) Lactic acidosis (Acute) Respiratory failure with hypoxia (Acute) Bronchospasm (Acute) Gram-negative pneumonia (Ruled-out) Unspecified jaundice (Acute) Lactic acidosis (Resolved) Sinus tachycardia by electrocardiogram (Resolved) Leukocytosis (Resolved) Hyponatremia (Resolved) Hypoxia (Acute) COPD exacerbation (Acute) Acute respiratory failure with hypoxia (Acute) Septic shock (Resolved) Severe sepsis (Resolved) Systolic CHF (Acute) Septic shock (Ruled-out) COPD with acute exacerbation (Acute) Acute respiratory failure with hypoxemia (Acute) Acute bronchitis (Resolved) COPD exacerbation (Resolved) HCAP (healthcare-associated pneumonia) (Resolved) Hypotension (Resolved) MRSA (methicillin resistant Staphylococcus aureus) infection (Resolved) NSVT (nonsustained ventricular tachycardia) (Resolved) Near syncope (Resolved) The patient is a 58 year old M with multiple comorbidities including coronary artery disease with PCI to RCA and circumflex, ischemic cardiomyopathy, EF 15% history of chronic heart failure status post AICD was admitted with severe shortness of breath. ABG done in the ER 7. on 24% Ventimask. His baseline CO2 is about 37-40', never more than 40. The patient was last discharged on 04/10/2019 with similar history and diagnosis of acute hypoxic respiratory failure secondary to acute exacerbation of COPD and exacerbation of heart failure. At that time pneumonia was ruled out. 1. Acute hypoxic respiratory failure secondary to possible COPD exacerbation: Chest x-ray and then chest CT was done which shows mild restrictive tissue changes with mild focal interstitial infiltrate/atelectasis in left upper and lower lobes. PE was inconclusive secondary to motion artifact. Recommended venous Doppler for lower extremities. ABG is more suggestive of mild metabolic acidosis with high anion gap, anion gap 17, bicarb 16, K 5.4. Lactic acid 10.4. Seems metabolic acidosis from low/compromised perfusion. The patient was also on prednisone therefore suspicion of adrenal failure and was given Solu-Cortef. Patient was given bolus of normal saline ER. Patient is on DuoNeb, and TV spirometry and chest physiotherapy. Patient also started on antibiotics ceftriaxone and Zithromax in the ED but continued on Zithromax. Hypoglycemia His glucose on BMP on presentation was 45. Patient received half an amp of D50. Chronic heart failure with low EF: EF 15%. Chest x-ray and CTPA is not sugg estive of pulmonary edema. No acute exacerbation. Currently on D5 half NS at 75 mill per hour Electrolyte abnormality: Hyponatremia, hyperkalemia, high anion gap metabolic acidosis: Kayexalate 15 g ordered. Repeat BMP shows K5.8, CO2 14, anion gap 18. 129. We will change the fluid to Ringer lactate Other chronic comorbidities include coronary artery disease status post stent, hypertension, possible peripheral arterial disease The patient has history of nicotine use/cigarette smoking: Clinical Impression(s) from Imaging Studies Chest X-Ray 05/08/19 18:45 IMPRESSION: Mild COPD and superimposed ASHD. No acute disease. Chest CTA 05/08/19 22:03 IMPRESSION: Minor interstitial changes with mild focal interstitial infiltrate or atelectasis in the left upper and lower lobes. No definitive evidence for pulmonary embolus given less than optimal study due to motion artifact. If strong clinical suspicion for pulmonary embolus Doppler study of the deep venous system of lower extremities may be helpful for further evaluation Code Visit Inpatient E&M: 61540 [facility] L[facility]
--- NOTE | 2019-05-09 08:45 | PCM.CON.CC ---
Problem List (1) Acute respiratory failure Status: Acute Qualifiers: Respiratory failure complication: hypoxia Qualified Code(s): J96.01 - Acute respiratory failure with hypoxia (2) Lactic acidosis Status: Acute (3) Respiratory failure with hypoxia Status: Acute Qualifiers: Chronicity: acute on chronic Qualified Code(s): J96.21 - Acute and chronic respiratory failure with hypoxia (4) Acute and chronic respiratory failure with hypoxia Status: Chronic (5) Sinus tachycardia by electrocardiogram Status: Resolved (6) Dyspnea Status: Chronic Qualifiers: Dyspnea type: dyspnea on exertion Qualified Code(s): R06.09 - Other forms of dyspnea (7) History of ischemic cardiomyopathy Status: Chronic (8) Unintentional weight loss Status: Chronic (9) Amphetamine abuse Status: Chronic (10) Acute on chronic systolic CHF (congestive heart failure) Status: Chronic (11) Atherosclerosis of coronary artery of [place] heart without angina pectoris Status: Chronic Qualifiers: Coronary Disease-Associated Artery/Lesion type: [place] artery Qualified Code(s): I25.10 - Atherosclerotic heart disease of [place] coronary artery without angina pectoris Comment: LEFT HEART ASSESSMENT Left Ventricular Ejection Fraction: by LV Gram 10-15 % Global Hypokinesis - Severe Depressed Left Ventricular systolic function Normal Left Ventricular End Diastolic Pressure LEFT MAIN: Non-obstructive LEFT ANTERIOR DECENDING ARTERY: Previously placed stent is patent DIAGONAL 1: Ostial - Mild luminal irregularities less than 30% DIAGONAL 2: Proximal - Non-obstructive CIRCUMFLEX ARTERY: MID CIRC: Previously placed stent is patent RIGHT CORONARY ARTERY: MID RCA: Previously placed stent has instent 20 % restenosis with a new at distal edge of stent (12) Iron deficiency anemia Status: Chronic Qualifiers: (13) COPD (chronic obstructive pulmonary disease) Status: Chronic Qualifiers: (14) Medical non-compliance Status: Chronic (15) Ischemic cardiomyopathy Status: Chronic Reason for Consult Date of Consultation: 05/09/19 Reason for Consultation: Respiratory failure History of Present Illness: The patient is a 58 year old M, with past medical history listed below and well-known to me from repeated admissions, who presented to [facility] on 05/08/2019 secondary to worsening respiratory distress. Patient reportedly had developed shortness of breath on the day of admission. Patient is out of his normal breathing status on the day prior to presentation. Patient had reportedly called EMS to evaluate. They treated him initially and patient refused transport to the hospital. EMS was then called back to his apartment and he was found to be hypoxic. On presentation to the ER, patient was noted to be pale, tachypnea, tachycardic and hypoxic with paradoxical breathing. End-tidal CO2 was noted at 15. Patient reportedly had some low blood sugars and there was some concern for possible adrenal insufficiency leading to metabolic acidosis. Patient was given stress dose steroids. Patient was also placed on BiPAP therapy secondary to reported exacerbation of COPD. Overnight in the intensive care unit, patient did continue with BiPAP therapy. This morning, patient was able to be taken off of BiPAP therapy and currently reports his breathing is at baseline. Patient has had lower extremity Dopplers and preliminary report is negative. Patient does not report any prodromal symptoms such as fever, chills, change in sputum or chest pain. Patient reports he has been compliant with steroid therapy. Patient denies any noxious exposures. Patient does continue to smoke on a daily basis. Review of systems otherwise negative x10 systems. Past Medical History Past Medical History (Chronic Problems): Chronic Problems (Last Reviewed 05/09/19 @ 00:04 by Marcus Mi MD) Acute exacerbation of chronic obstructive pulmonary disease (COPD) (Chronic) Acute and chronic respiratory failure with hypoxia (Chronic) COPD exacerbation (Chronic) Dyspnea (Chronic) History of ischemic cardiomyopathy (Chronic) Anemia, unspecified (Chronic) Unintentional weight loss (Chronic) Amphetamine abuse (Chronic) Chronic respiratory failure with hypoxia (Chronic) Acute and chronic respiratory failure with hypoxia (Chronic) Acute on chronic systolic CHF (congestive heart failure) (Chronic) Elevated troponin (Chronic) ICD (implantable cardioverter-defibrillator) in place (Chronic) History of coronary artery stent placement (Chronic) PCI-RCA and CX Atherosclerosis of coronary artery of [place] heart without angina pectoris (Chronic) LEFT HEART ASSESSMENT Left Ventricular Ejection Fraction: by LV Gram 10-15 % Global Hypokinesis - Severe Depressed Left Ventricular systolic function Normal Left Ventricular End Diastolic Pressure LEFT MAIN: Non-obstructive LEFT ANTERIOR DECENDING ARTERY: Previously placed stent is patent DIAGONAL 1: Ostial - Mild luminal irregularities less than 30% DIAGONAL 2: Proximal - Non-obstructive CIRCUMFLEX ARTERY: MID CIRC: Previously placed stent is patent RIGHT CORONARY ARTERY: MID RCA: Previously placed stent has instent 20 % restenosis with a new at distal edge of stent Iron deficiency anemia (Chronic) COPD (chronic obstructive pulmonary disease) (Chronic) Tobacco abuse (Chronic) Medical non-compliance (Chronic) Ischemic cardiomyopathy (Chronic) Medical History: Medical History (Last Reviewed 05/09/19 @ 00:04 by Marcus Mi MD) Atherosclerosis of coronary artery of [place] heart without angina pectoris (Chronic) I25.10 LEFT HEART ASSESSMENT Left Ventricular Ejection Fraction: by LV Gram 10-15 % Global Hypokinesis - Severe Depressed Left Ventricular systolic function Normal Left Ventricular End Diastolic Pressure LEFT MAIN: Non-obstructive LEFT ANTERIOR DECENDING ARTERY: Previously placed stent is patent DIAGONAL 1: Ostial - Mild luminal irregularities less than 30% DIAGONAL 2: Proximal - Non-obstructive CIRCUMFLEX ARTERY: MID CIRC: Previously placed stent is patent RIGHT CORONARY ARTERY: MID RCA: Previously placed stent has instent 20 % restenosis with a new at distal edge of stent Acute respiratory failure with hypoxemia (Acute) J96.01 Iron deficiency anemia (Chronic) D50.9 COPD (chronic obstructive pulmonary disease) (Chronic) J44.9 Tobacco abuse (Chronic) Z72.0 Medical non-compliance (Chronic) Z91.19 Ischemic cardiomyopathy (Chronic) I25.5 Acute on chronic systolic (congestive) heart failure I50.23 Restless leg syndrome G25.81 Acute bronchitis (Resolved) J20.9 COPD exacerbation (Resolved) J44.1 Recent discharge 12/14/17 following treatment for acute on chronic systolic CHF exacerbation, acute COPD exacerbation with acute hypoxic respiratory failure and MRSA HCAP PNA. HCAP (healthcare-associated pneumonia) (Resolved) J18.9 Recent discharge 12/14/17 following treatment for acute on chronic systolic CHF exacerbation, acute COPD exacerbation with acute hypoxic respiratory failure and MRSA HCAP PNA. Hypotension (Resolved) I95.9 MRSA (methicillin resistant Staphylococcus aureus) infection (Resolved) A49.02 Recent discharge 12/14/17 following treatment for acute on chronic systolic CHF exacerbation, acute COPD exacerbation with acute hypoxic respiratory failure and MRSA HCAP PNA. NSVT (nonsustained ventricular tachycardia) (Resolved) I47.2 Near syncope (Resolved) R55 Elevated troponin (Inactive) R74.8 Allergies No Known Allergies Allergy (Verified 04/08/19 09:46) Home Medications: Ambulatory Orders Medication Instructions Recorded Albuterol Inhaler [Ventolin Hfa] 1 - 2 puff INHALATION Q4H PRN PRN 05/06/19 #1 inhaler Albuterol Inhaler [Ventolin Hfa] 2 puff INHALATION 4X/DAY 05/09/19 Aspirin E.C. [Ecotrin] 81 mg PO DAILY 05/09/19 Atorvastatin Calcium [Lipitor] 80 mg PO QHS 05/09/19 Carvedilol [Coreg (Beta Fletcher)] 6.25 mg PO BID 05/09/19 Clopidogrel Bisulfate [Plavix] 75 mg PO DAILY 05/09/19 Ferrous Gluconate 324 mg PO BIDCM 05/09/19 Furosemide [Lasix] 40 mg PO BID 05/09/19 Isosorbide Mononitrate [Imdur] 30 mg PO DAILY 05/09/19 Losartan Potassium [Cozaar] 25 mg PO DAILY 05/09/19 Potassium Chloride [K-Dur] 20 meq PO DAILY 05/09/19 Prednisone 10 mg PO UD 05/09/19 predniSONE tablet 2 tab PO DAILY@0800 05/09/19 Surgical History: Surgical History (Last Reviewed 05/09/19 @ 00:04 by Marcus Mi MD) ICD (implantable cardioverter-defibrillator) in place (Chronic) Z95.810 History of coronary artery stent placement (Chronic) Z95.5 PCI-RCA and CX History of coronary artery stent placement Z95.5 [id number]-[id number]-[id number] and Cx History of left heart catheterization Onset Date: 12/14/17 Z98.890 CORONARY ANGIOGRAPHY DOMINANCE: Right Dominant LEFT HEART ASSESSMENT Left Ventricular Ejection Fraction: by LV Gram 10-15 % Global Hypokinesis - Severe Depressed Left Ventricular systolic function Normal Left Ventricular End Diastolic Pressure LEFT MAIN: Non-obstructive LEFT ANTERIOR DECENDING ARTERY: Previously placed stent is patent DIAGONAL 1: Ostial - Mild luminal irregularities less than 30% DIAGONAL 2: Proximal - Non-obstructive CIRCUMFLEX ARTERY: MID CIRC: Previously placed stent is patent RIGHT CORONARY ARTERY: MID RCA: Previously placed stent has instent 20 % restenosis with a new at distal edge of stent Surgical History: - Psychiatric History: No pertinent psych hx Lives: Alone Smoking Status: Current every day smoker Alcohol: Occasional Drugs: - - Records history of amphetamine use - *Family History Maternal Family History: Family History (Last Reviewed 05/08/19 @ 21:50 by Marcus Mi MD) Father CAD (coronary artery disease) Heart disease Mother CAD (coronary artery disease) Heart disease Aunt Cancer Brother Heart disease Hypertension History Items: Heart Disease Paternal Family History: Family History (Last Reviewed 05/08/19 @ 21:50 by Marcus Mi MD) Father CAD (coronary artery disease) Heart disease Mother CAD (coronary artery disease) Heart disease Aunt Cancer Brother Heart disease Hypertension History Items: Heart Disease Review of Systems Comment: See HPI Patient Problems: Active and Suspected Problems (Last Reviewed 05/09/19 @ 00:04 by Marcus Mi MD) Acute respiratory failure (Acute) Lactic acidosis (Acute) Shock, unspecified (Acute) Lactic acidosis (Acute) Respiratory failure with hypoxia (Acute) Bronchospasm (Acute) Objective: Chest x-ray was personally reviewed and is unremarkable compared to previous images. Patient did have a CTA of the chest showing some emphysematous changes, but no obvious PE. No significant pleural effusions were appreciated. Patient does have significant movement artifact noted. As stated in HPI, preliminary review of lower extremity Doppler is negative for acute DVT. - Physical Exam General: Alert, Oriented x3, Cooperative, No apparent distress, - - Appears older than stated age. No conversational dyspnea noted. HEENT: Atraumatic, PERRLA, EOMI, Normocephalic, - - Slight scleral injection without icterus Oral: Moist Mucosa, No Gingival or Mucosal Lesions/ Ulcerations, - - Poor dentition. Neck: Supple, No JVD, No Nodes, Trachea Midline Lungs: No rhonchi, No wheeze, No rales, Diminished Cardiovascular: Normal S1, Normal S2, No murmurs, No rub noted, No Gallop, Tachycardic Abdomen: Bowel Sounds Present, Soft, Non Tender, Non-Distended Extremities: No cyanosis, Clubbing, Edema - 1+ lower extremity Skin: No rashes, No breakdown Musculoskeletal: No Tenderness to Palpation of Joints or Extremities Lymphatic: No Cervical, Supraclavicular, or Inguinal Adenopathy Neurological: Cranial nerves II-XII grossly intact, Neuro grossly intact, Motor Exam 5/5 strength throughout Psych/Mental Status: Appropriate, Flat Affect Vital Signs Temp Pulse Resp BP Pulse Ox 36.4 C L 108 H 18 135/95 H 100 05/09/19 04:00 05/09/19 07:55 05/09/19 06:52 05/09/19 06:00 05/09/19 06:52 Oxygen Flow Rate (L/min) 2 Oxygen Delivery Method Nasal Cannula Weight: 84.9 kg Body Mass Index (BMI) 29.0 Finger Stick Blood Glucose 123 Intake and Output for Last 24 Hours 05/07/19 05/08/19 05/09/19 23:59 23:59 23:59 Intake Total 2400 / 2702 736 / 736 Output Total 600 / 600 Balance 2400 / 2702 136 / 136 Laboratory Tests Past 24 Hrs 05/08/19 05/08/19 05/08/19 18:45 18:51 19:00 WBC 14.3 H RBC 5.37 Hgb 13.6 Hct 45.0 MCV 83.8 MCH 25.3 L MCHC 30.2 L RDW Std Deviation 61.2 H RDW Coeff of Linda 20.7 H Plt Count 260 MPV 9.0 Immature Gran % (Auto) 0.900 Neut % (Auto) 78.8 H Lymph % (Auto) 11.7 L [place] % (Auto) 8.3 Eos % (Auto) 0.1 Baso % (Auto) 0.2 Absolute Neuts (auto) 11.3 H Absolute Lymphs (auto) 1.67 Nucleated RBC % 0.1 Differential Comment Platelet Estimate ADEQUATE RBC Morphology N CHROM Polychromasia Hypochromasia Anisocytosis RARE Ovalocytes RARE Crenated Cell PT INR APTT Specimen Type ART Sample Site L Radial pH 7.32 L Bicarbonate Actual 13.4 L POC Total CO2 14 Base Excess -13 L O2 Saturation 96 O2 % 24 ABG pCO2 26.0 L ABG pO2 84 Alexis Test POS O2 Delivery Device Vent Mask Blood Gas Notified Whom ED Blood Gas Notified Time 1845 Sodium 132 L Potassium 5.4 H Chloride 99 Carbon Dioxide 16.0 L Anion Gap 17 H BUN 26 H Creatinine 1.02 Estim Creat Clear Calc 74.51 Est GFR (MDRD) Af Amer 96 Est GFR (MDRD) Non-Af 79 BUN/Creatinine Ratio 25.5 H Glucose 45 L Lactic Acid Calcium 8.9 Total Bilirubin 3.00 H AST 34 ALT 26 Alkaline Phosphatase 126 H Total Protein 7.8 Albumin 3.5 Globulin 4.3 H Albumin/Globulin Ratio 0.8 L Cortisol Urine Color Urine Clarity Urine pH Ur Specific [place] Urine Protein Urine Glucose (UA) Urine Ketones Urine Occult Blood Urine Nitrite Urine Bilirubin Urine Urobilinogen Ur Leukocyte Esterase Urine RBC Urine WBC Ur Squamous Epith Cells Urine Bacteria Hyaline Casts Urine Mucus 08/08/19 08/08/19 08/08/19 19:00 19:00 19:00 WBC RBC Hgb Hct MCV MCH MCHC RDW Std Deviation RDW Coeff of Linda Plt Count MPV Immature Gran % (Auto) Neut % (Auto) Lymph % (Auto) [place] % (Auto) Eos % (Auto) Baso % (Auto) Absolute Neuts (auto) Absolute Lymphs (auto) Nucleated RBC % Differential Comment Platelet Estimate RBC Morphology Polychromasia Hypochromasia Anisocytosis Ovalocytes Crenated Cell PT 20.7 H INR 1.8 APTT 27.2 Specimen Type Sample Site pH Bicarbonate Actual POC Total CO2 Base Excess O2 Saturation O2 % ABG pCO2 ABG pO2 Alexis Test O2 Delivery Device Blood Gas Notified Whom Blood Gas Notified Time Sodium Potassium Chloride Carbon Dioxide Anion Gap BUN Creatinine Estim Creat Clear Calc Est GFR (MDRD) Af Amer Est GFR (MDRD) Non-Af BUN/Creatinine Ratio Glucose Lactic Acid 10.4 H* Calcium Total Bilirubin AST ALT Alkaline Phosphatase Total Protein Albumin Globulin Albumin/Globulin Ratio Cortisol 38.00 H Urine Color Urine Clarity Urine pH Ur Specific [place] Urine Protein Urine Glucose (UA) Urine Ketones Urine Occult Blood Urine Nitrite Urine Bilirubin Urine Urobilinogen Ur Leukocyte Esterase Urine RBC Urine WBC Ur Squamous Epith Cells Urine Bacteria Hyaline Casts Urine Mucus 05/08/19 05/09/19 05/09/19 23:00 04:00 04:00 WBC 11.8 H RBC 5.19 Hgb 12.8 L Hct 44.0 MCV 84.8 MCH 24.7 L MCHC 29.1 L RDW Std Deviation 61.3 H RDW Coeff of Linda 20.6 H Plt Count 212 MPV 9.4 Immature Gran % (Auto) 1.200 H Neut % (Auto) 91.5 H Lymph % (Auto) 3.2 L [place] % (Auto) 3.7 Eos % (Auto) 0.1 Baso % (Auto) 0.3 Absolute Neuts (auto) 10.8 H Absolute Lymphs (auto) 0.38 L Nucleated RBC % 0 Differential Comment SCANNED Platelet Estimate RBC Morphology Polychromasia 1+ Hypochromasia 2+ Anisocytosis Ovalocytes Crenated Cell 1+ PT INR APTT Specimen Type Sample Site pH Bicarbonate Actual POC Total CO2 Base Excess O2 Saturation O2 % ABG pCO2 ABG pO2 Alexis Test O2 Delivery Device Blood Gas Notified Whom Blood Gas Notified Time Sodium 135 L Potassium 5.8 H Chloride 103 Carbon Dioxide 14.0 L Anion Gap 18 H BUN 29 H Creatinine 1.01 Estim Creat Clear Calc 75.25 Est GFR (MDRD) Af Amer 97 Est GFR (MDRD) Non-Af 80 BUN/Creatinine Ratio 28.7 H Glucose 100 Lactic Acid 4.8 H* Calcium 8.4 L Total Bilirubin AST ALT Alkaline Phosphatase Total Protein Albumin Globulin Albumin/Globulin Ratio Cortisol Urine Color Urine Clarity Urine pH Ur Specific [place] Urine Protein Urine Glucose (UA) Urine Ketones Urine Occult Blood Urine Nitrite Urine Bilirubin Urine Urobilinogen Ur Leukocyte Esterase Urine RBC Urine WBC Ur Squamous Epith Cells Urine Bacteria Hyaline Casts Urine Mucus 05/09/19 04:40 WBC RBC Hgb Hct MCV MCH MCHC RDW Std Deviation RDW Coeff of [place] Plt Count MPV Immature Gran % (Auto) Neut % (Auto) Lymph % (Auto) [place] % (Auto) Eos % (Auto) Baso % (Auto) Absolute Neuts (auto) Absolute Lymphs (auto) Nucleated RBC % Differential Comment Platelet Estimate RBC Morphology Polychromasia Hypochromasia Anisocytosis Ovalocytes Crenated Cell PT INR APTT Specimen Type Sample Site pH Bicarbonate Actual POC Total CO2 Base Excess O2 Saturation O2 % ABG pCO2 ABG pO2 Alexis Test O2 Delivery Device Blood Gas Notified Whom Blood Gas Notified Time Sodium Potassium Chloride Carbon Dioxide Anion Gap BUN Creatinine Estim Creat Clear Calc Est GFR (MDRD) Af Amer Est GFR (MDRD) Non-Af BUN/Creatinine Ratio Glucose Lactic Acid Calcium Total Bilirubin AST ALT Alkaline Phosphatase Total Protein Albumin Globulin Albumin/Globulin Ratio Cortisol Urine Color Yellow Urine Clarity Clear Urine pH 5.0 Ur Specific [place] 1.020 Urine Protein 100 H Urine Glucose (UA) Normal Urine Ketones 5 H Urine Occult Blood 25 H Urine Nitrite Negative Urine Bilirubin Negative Urine Urobilinogen 1 H Ur Leukocyte Esterase 25 H Urine RBC 0-5 SEEN Urine WBC 0-5 SEEN Ur Squamous Epith Cells 0 SEEN Urine Bacteria RARE Hyaline Casts 0-5 SEEN Urine Mucus 1+ POC Glucose 05/09/19 05/09/19 05/09/19 08:12 04:06 00:09 POC Glucose 182 H 93 158 H 05/08/19 05/08/19 23:27 21:20 POC Glucose 127 H 123 H Clinical Impression(s) from Imaging Studies Chest X-Ray 05/08/19 18:45 IMPRESSION: Mild COPD and superimposed ASHD. No acute disease. Electronically Signed: Lewis Gallardo MD at 19:00 EDT , Service support , Chest CTA 05/08/19 22:03 IMPRESSION: Minor interstitial changes with mild focal interstitial infiltrate or atelectasis in the left upper and lower lobes. No definitive evidence for pulmonary embolus given less than optimal study due to motion artifact. If strong clinical suspicion for pulmonary embolus Doppler study of the deep venous system of lower extremities may be helpful for further evaluation Electronically Signed: Lewis Gallardo MD at 22:43 EDT , Service support , Assessment/Plan Active and Suspected Problems (Last Reviewed 05/09/19 @ 00:04 by Marcus Mi MD) Acute respiratory failure (Acute) Lactic acidosis (Acute) Shock, unspecified (Acute) Lactic acidosis (Acute) Respiratory failure with hypoxia (Acute) Bronchospasm (Acute) RECOMMENDATIONS: 1. Increase activity as tolerated 2. Aggressive rate control 3. Discontinue stress dose steroids 4. Okay to initiate p.o. diet 5. Walking oximetry prior to discharge 6. Likely discontinue antibiotics after 48 hours IMPRESSIONS: 1. Acute hypoxic respiratory failure Unclear etiology at this time. Patient reportedly does have a history of COPD, but it is unclear if patient had prodromal symptoms such as fever or productive cough. Patient does have a significantly elevated BNP, but tends to be at baseline. This would be consistent with flash pulmonary edema. Agree with empiric antibiotics until further information is available. Continue with pulmonary toileting. Unclear if patient is developing flash pulmonary edema secondary to noncompliance with supplemental oxygen at home. 2. Suspected acute on chronic systolic congestive heart failure Patient does have an EF of 15% with elevated BNP on presentation. Bilateral infiltrates may be secondary to pulmonary congestion. Patient does have a response to Lasix therapy given in the emergency room. If patient starts to have difficulty with spontaneous breathing trial, additional Lasix may be indicated. Doubt repeat echocardiogram would be helpful acutely as heart function is so depressed at baseline. 3. Hyponatremia/hyperkalemia Unclear etiology. Clinical suspicion for hypervolemic hyponatremia. Patient was reportedly not having any complications such as seizure activity. We will continue to monitor, but would not recommend 3% saline at this time. We will repeat potassium this afternoon. If remains elevated, Kayexalate would be indicated. No EKG changes at this time. 4. History of noncompliance/tobacco abuse/reported history of amphetamine use Complicates care, management, recovery and prognosis. Can apply nicotine patch if patient so signs of withdrawal. Code Visit Inpatient E&M: 70819 Init Hosp L3
--- NOTE | 2019-05-09 09:51 | CASEMGMT ---
SW called [facility], left a message inquiring if they have been able to work w/pt, will await call back. FRANCIA Vasquez
[2019-05-09] MEDS: predniSONE 10 MG Tablet PO (09:59)
[2019-05-09] MEDS: Aspirin E.C. 81 MG Tablet PO (09:59)
[2019-05-09] MEDS: Isosorbide Mononitrate 30 MG Tablet PO (09:59)
[2019-05-09] MEDS: Carvedilol 6.25 MG Tablet PO ×2 (09:59→22:57)
[2019-05-09] MEDS: Clopidogrel Bisulfate 75 MG Tablet PO (09:59)
[2019-05-09] MEDS: Losartan Potassium 25 MG Tablet PO (09:59)
--- NOTE | 2019-05-09 11:30 | CASEMGMT ---
Social Work Assessment Referral Date: 05/09/19 Informant: CASE MANAGEMENT Reason for Consult: RESOURCES/D/C PLANNING Information obtained from: CHART REVIEW AND PATIENT Living Arrangements: PATIENT REPORTS LIVES HOME IN AN APARTMENT WITH ROOMMATE. APARTMENT IS 1 FLOOR WITH 4 STPES TO ENTER. DME: CANE, OXYGEN- DASCO Employment/Financial: DISABLED/LIMITED INCOME. PATIENT DOES HAVE MEDICAID SECONDARY INSURANCE. Supports: [facility] Social/Family Stressors: PATIENT WITH HX OF NON COMPLIANCE. DO NOT BELIEVE PATIENT TO HAVE PRIMARY CARE PHYSICIAN FROM PREVIOUS ADMISSION NOTES. PATIENT REPORTS FOLLOWS WITH ANALILIA TELLO IN [place]. WHEN ASKED ABOUT PCP ON [place],DR. STERN PATIENT STATES WHO? THAT IS NOT MY DOCTOR. THIS WORKER TO FOLLOW UP. PATIENT REPORTS TRANSPORTATION ISSUES AND ISSUES WITH GETTING MEDICATIONS D/T LIMITED INCOME. Mental Health History: PATIENT REPORTS HX OF ANXIETY AND DEPRESSION. PATIENT STATES ANXIETY BECOMES WORSE WHEN UNABLE TO BREATH. PATIENT STATES IS NOT TREATED WITH MEDICATION AND BELIEVES WOULD BENEFIT FROM MEDICATION FOR ANXIETY. Substance Abuse History: PATIENT ADMITS TO HX OF SUBSTANCE ABUSE. Substance(s) of choice: METH AND CIGARETTES Last use: PATIENT STATES HAS NOT USED METH IN A LONG TIME. PATIENT DAILY SMOKER. Interventions: SOCIAL SERVICE ASSESSMENT PALLIATIVE MEDICINE REFERRAL RECOMMEND MEDICATION BE FILLED IN [facility] PRIOR TO D/C INFORMATION PROVIDED ON TRANSPORTATION Assessment: PATIENT IS A 58 Y/O MALE WHO LIVES HOME WITH ROOMMATE IN A SINGLE STORY APARTMENT WITH 4 STEPS TO ENTER. PATIENT REPORTS DME IN THE HOME TO CONSIST OF CANE AND OXYGEN. INTRODUCED THIS WORKER'S ROLE AND REASON FOR REFERRAL. DISCUSSED NEEDS FOR HOME GOING AND PATIENT'S HX OF NON COMPLIANCE. PATIENT REPORTS DOES NOT WANT PEOPLE IN HIS HOME. PATIENT ADAMANTLY REFUSING ASSISTED PLACEMENT. DISCUSS PRIMARY CARE PHYSICIAN, PATIENT STATES I DO NOT GO TO [facility]ORS APPOINTMENTS. PATIENT STATES TRANSPORTATION TO BE AN ISSUE. WHEN ASKED IF DR. STERN IS PRIMARY CARE PHYSICIAN, PATIENT STATED WHO? THAT IS NOT MY DOCTOR. PATIENT STATES FOLLOWS WITH ANALILIA TELLO [facility] [place]. EDUCATION PROVIDED ON PALLIATIVE MEDICINE AND DISCUSSED HOW PATIENT COULD BENEFIT FROM SERVICES. PATIENT IN AGREEMENT WITH REFERRAL. WILL NEED TO FOLLOW UP ON PRIMARY CARE PHYSICIAN. BREAKFAST SERVER TO CONTINUE TO FOLLOW FOR NEEDS. PLAN: HOME WITH REFERRAL TO PALLIATIVE MEDICINE.
--- NOTE | 2019-05-09 12:05 | CASEMGMT ---
SOCIAL WORK PALLIATIVE MEDICINE REFERRAL MADE TO [facility] WITH [facility]. REQUESTED PATIENT BE SEEN WHILE IN THE HOSPITAL. [facility] UNSURE IF WILL BE ABLE TO ASSESS PATIENT WHILE IN THE HOSPITAL. WILL FOLLOW UP WITH THIS WORKER. AWAIT CALL BACK. REFERRAL FAXED. BALDO ROBERTSON, HOME ENERGY CONSULTANT, [employer].
--- NOTE | 2019-05-09 12:28 | CASEMGMT ---
Addendum entered by Eddie Rodriguez 05/09/19 13:15: For DC: See green sheet for CCN # to notify of dc date. Pt will need medications filled @ [facility] retail pharmacy on dc. Original Note: RN CM Readmission Note Last admission: 04/08/19-04/10/19 Diagnosis: Respiratory Failure, etiology unknown DC Disposition: Home on discharge, O2 set up by [facility] too numerous attempts. Per Lima @ [facility] [place], friend at home signed for equipment, [facility] rep was not permitted into home. CCN referral. Current Admission: Presentation: Resp Failure, etiology unclear. Lactic acid 10.4. Bipap overnight PCP: Dr. Ryan Parekh set up for Preferred Pharmacy: [facility] Retail Pharmacy Insurance: Anthem Medicare Senior advantage Prescription Benefit: yes LNOK: Brother, Angel Peralta Living Arrangements: Lives in home with other group of people, not family. Difficult to get a hold of pt. [place] [employer] Police Officer consult. Transportation: does not drive. Transportation brochure for [facility] given to pt with each admission. DME: Oxygen through [facility] HHC: none CCN: active with pt. Social Service Consult: yes Patient DC goals: Home DC PLAN: Home with resumption of CCN. Damon SCHMITT RN ACM
--- NOTE | 2019-05-09 13:05 | CASEMGMT ---
SOCIAL WORK REPORT MADE TO [place] WITH [employer] [employer] D/T HOME SAFETY CONCERNS AND NON COMPLIANCE. BALDO ROBERTSON, JOURNEYMAN PIPE WELDER, RECREATION THERAPY AIDES TEACHER.
--- NOTE | 2019-05-09 13:25 | CASEMGMT ---
RN CM Note: pt is high readmission risk pt. YASMEEN Tadeo updated re: pt needing medications from [facility] Retail pharmacy prior to dc and does not have ability to pay copays. Requested case be evaluated for approval w/[facility] Retail pharmacy assist program for any copay amts with medications. Damon ESPINOZAN RN ACM
[2019-05-09 13:57] LABS: Anion Gap 7 (5-15); BUN 30 mg/dL (7-18); BUN/Creat Ratio 33.7 RATIO (10-20); Chloride 106 mmol/L (98-107); Creatinine, Serum 0.89 mg/dL (0.70-1.30); EST Glomerular Filtration Rate 93 mL/min (>60); Est Glom Filt Rate - Afr Amer 112 mL/min (>60); Estimated Creatinine Clearance 85.39 ml/min; Glucose 259 mg/dL (74-106); Potassium 5.2 mmol/L (3.5-5.1); Sodium Level 134 mmol/L (136-145)
--- NOTE | 2019-05-09 14:10 | CASEMGMT ---
SW spoke w/CM, she asked about pt utilizing the prescription assist program a second time this year(as pt is stating cannot afford copays). SW spoke w/SW insulation manager, she and CM insulation manager stated that pt can use the program again this year so he can get his scripts filled and have his copays covered. Megan ARANA insulation manager let the pharmacy know. SW completed the RX assist form, and tubed it to retail pharmacy for when pt is discharged. SW also placed a copy in the chart. SW let pt know that he can use hospital assist for copays if he gets his scripts through the [facility] Retail Pharmacy when he leaves here, as long as he is discharged when the retail pharmacy is open or if the physician can write the scripts ahead of time(as the retail pharmacy closes early on Sunday and is closed Sunday). SW explained to pt that we were able to get permission to use hospital assist a second time this year, but there is not guarantee that we could use hospital assist again if her were to come in again. Pt nodded in understanding. Information regarding pt utilizing prescription assistance program written on green sheet. FRANCIA Vasquez
--- NOTE | 2019-05-09 14:47 | CASEMGMT ---
SOCIAL WORK CALL TO DR. STERN'S OFFICE TO SEE IF PATIENT WAS EVER SEEN IN OFFICE AND IF ABLE TO GIVE ORDER FOR PALLIATIVE MEDICINE. PER NURSE, PATIENT NO SHOWED TO APPOINTMENT ON 02/21/19. DR. STERN IS NOT PATIENT'S PRIMARY CARE PHYSICIAN PATIENT HAS NEVER BEEN SEEN BY DR. STERN. CALL TO ANALILIA TELLO CNP'S OFFICE TO SEE WHEN PATIENT WAS LAST SEEN AND IF THEY WOULD GIVE ORDER FOR PALLIATIVE MEDICINE. OFFICE CLOSED. LEFT MESSAGE WITH THIS WORKER'S CALL BACK INFORMATION. BALDO ROBERTSON, MACHINE UMBRELLA TIPPER, TITLE INSPECTOR.
--- NOTE | 2019-05-09 15:07 | CASEMGMT ---
SOCIAL WORK CALL TO [facility] TO DISCUSS PALLIATIVE MEDICINE CONSULT AND UPDATE ON PRIMARY CARE, SPOKE WITH ASIM. ASIM TO CHECK IN ON REFERRAL AND WILL GET BACK TO THIS WORKER. INFORMED ASIM PATIENT HAS NOT YET ESTABLISHED WITH DR. STERN AND LAST PRIMARY CARE FOLLOW UP WAS WITH ANALILIA TELLO CNP. BALDO ROBERTSON, SPOT SPRAYER, METAL CANS SUPERVISOR.
[2019-05-09] MEDS: Ferrous Gluconate 324 MG Tablet PO (16:05)
[2019-05-09 16:10] LABS: Bedside Glucose 187 mg/dL (70-110)
--- NOTE | 2019-05-09 22:19 | CPS ---
Explained to patient the benefits of BiPaP; patient was adamant on not wearing BiPaP mask
[2019-05-09] MEDS: Atorvastatin Calcium 80 MG Tablet PO (22:57)
[2019-05-09 23:20] LABS: Bedside Glucose 122 mg/dL (70-110)
[2019-05-09] MEDS: LORazepam 1 MG Tablet PO (23:44)
[2019-05-10] VITALS (21 sets, daily range): BP systolic 97–138; BP diastolic 72–93; PULSE 81–101; RESP 12–36; TEMP 36.4–37.3; O2SAT 95–100
--- NOTE | 2019-05-10 00:47 | NURSING ---
Pt placed on AVAPS with tidal volume of 500; FiO2 21% per Dr. Mi. Dr. Mi was called to room d/t pt being tachypnic, and diaphoretic. RT present in room as well. Pt responding well to AVAPS. Respers returned to normal rate, non labored. Will continue to monitor. Glenn, RN
--- NOTE | 2019-05-10 01:04 | NURSING ---
0104 spoke with RT, who reports pt improving, switched back to Bipap settings. Will continue to monitor. GlennRN
[2019-05-10 06:45] LABS: Bedside Glucose 125 mg/dL (70-110)
[2019-05-10] MEDS: Ipratropium/Albuterol Sulfate 3 ML AMPUL.NEB INHALATION ×4 (07:22→19:57)
[2019-05-10 07:32] LABS: Anion Gap 9 (5-15); BUN 32 mg/dL (7-18); BUN/Creat Ratio 53.5 RATIO (10-20); Calcium,Total 8.1 mg/dL (8.5-10.1); Chloride 104 mmol/L (98-107); EST Glomerular Filtration Rate 146 mL/min (>60); Est Glom Filt Rate - Afr Amer 177 mL/min (>60); Estimated Creatinine Clearance 126.67 ml/min; Glucose 111 mg/dL (74-106); Potassium 4.6 mmol/L (3.5-5.1); Sodium Level 136 mmol/L (136-145)
--- NOTE | 2019-05-10 07:34 | PCM.PN.INT ---
Subjective: Patient did okay overnight. Patient reportedly had significant difficulty with anxiety. Patient was attempted on AVAPS secondary to low tidal volumes, but was able to tolerate standard BiPAP after 1 mg of Ativan p.o. Patient opens eyes to voice this morning, but is not cooperative with exam. General: No apparent distress, Confused, Disoriented, - - Good BiPAP synchrony. Appears older than stated age. HEENT: Atraumatic, PERRLA, EOMI, Normocephalic, - - Slight scleral injection without icterus Oral: No Gingival or Mucosal Lesions/ Ulcerations, Dry Mucosa Neck: Supple, No JVD, No Nodes, Trachea Midline Lungs: No rhonchi, No wheeze, No rales, Diminished Cardiovascular: Regular rate, Regular Rhythm, Normal S1, Normal S2, No murmurs, No rub noted, No Gallop Abdomen: Bowel Sounds Present, Soft, Non Tender, Non-Distended Extremities: No cyanosis, Capillary Refill Less than 3 Seconds, Clubbing, Edema - Trace to 1+ lower extremity Skin: - - No change compared to previous Musculoskeletal: No Tenderness to Palpation of Joints or Extremities Lymphatic: No Cervical, Supraclavicular, or Inguinal Adenopathy Neurological: Cranial nerves II-XII grossly intact, Neuro grossly intact, Motor Exam 5/5 strength throughout Psych/Mental Status: Flat Affect Vital Signs Temp Pulse Resp BP Pulse Ox 37.2 C 101 H 18 138/93 H 98 05/10/19 05:40 05/10/19 05:40 05/10/19 05:40 05/10/19 05:40 05/10/19 05:40 Oxygen Flow Rate (L/min) 1 Oxygen Delivery Method Bi-pap Weight: 73.6 kg Body Mass Index (BMI) 29.0 Finger Stick Blood Glucose 123 Intake and Output for Last 24 Hours 05/08/19 05/09/19 05/10/19 23:59 23:59 23:59 Intake Total 2400 / 2702 3028 / 3028 50 / 50 Output Total 1200 / 1200 Balance 2400 / 2702 1828 / 1828 50 / 50 Labs (Last 48 Hours) 05/08/19 05/08/19 05/08/19 18:45 18:51 19:00 WBC 14.3 H RBC 5.37 Hgb 13.6 Hct 45.0 MCV 83.8 MCH 25.3 L MCHC 30.2 L RDW Std Deviation 61.2 H RDW Coeff of Linda 20.7 H Plt Count 260 MPV 9.0 Immature Gran % (Auto) 0.900 Neut % (Auto) 78.8 H Lymph % (Auto) 11.7 L Forrest % (Auto) 8.3 Eos % (Auto) 0.1 Baso % (Auto) 0.2 Absolute Neuts (auto) 11.3 H Absolute Lymphs (auto) 1.67 Nucleated RBC % 0.1 Differential Comment Platelet Estimate ADEQUATE RBC Morphology N CHROM Polychromasia Hypochromasia Anisocytosis RARE Ovalocytes RARE Crenated Cell PT INR APTT Specimen Type ART Sample Site L Radial pH 7.32 L Bicarbonate Actual 13.4 L POC Total CO2 14 Base Excess -13 L O2 Saturation 96 O2 % 24 ABG pCO2 26.0 L ABG pO2 84 Alexis Test POS O2 Delivery Device Vent Mask Blood Gas Notified Whom ED Blood Gas Notified Time 1845 Sodium 132 L Potassium 5.4 H Chloride 99 Carbon Dioxide 16.0 L Anion Gap 17 H BUN 26 H Creatinine 1.02 Estim Creat Clear Calc 74.51 Est GFR (MDRD) Af Amer 96 Est GFR (MDRD) Non-Af 79 BUN/Creatinine Ratio 25.5 H Glucose 45 L Lactic Acid Calcium 8.9 Total Bilirubin 3.00 H AST 34 ALT 26 Alkaline Phosphatase 126 H B-Natriuretic Peptide Total Protein 7.8 Albumin 3.5 Globulin 4.3 H Albumin/Globulin Ratio 0.8 L Cortisol Urine Color Urine Clarity Urine pH Ur Specific [place] Urine Protein Urine Glucose (UA) Urine Ketones Urine Occult Blood Urine Nitrite Urine Bilirubin Urine Urobilinogen Ur Leukocyte Esterase Urine RBC Urine WBC Ur Squamous Epith Cells Urine Bacteria Hyaline Casts Urine Mucus POC Glucose 05/08/19 05/08/19 05/08/19 19:00 19:00 19:00 WBC RBC Hgb Hct MCV MCH MCHC RDW Std Deviation RDW Coeff of Linda Plt Count MPV Immature Gran % (Auto) Neut % (Auto) Lymph % (Auto) Forrest % (Auto) Eos % (Auto) Baso % (Auto) Absolute Neuts (auto) Absolute Lymphs (auto) Nucleated RBC % Differential Comment Platelet Estimate RBC Morphology Polychromasia Hypochromasia Anisocytosis Ovalocytes Crenated Cell PT 20.7 H INR 1.8 APTT 27.2 Specimen Type Sample Site pH Bicarbonate Actual POC Total CO2 Base Excess O2 Saturation O2 % ABG pCO2 ABG pO2 Alexis Test O2 Delivery Device Blood Gas Notified Whom Blood Gas Notified Time Sodium Potassium Chloride Carbon Dioxide Anion Gap BUN Creatinine Estim Creat Clear Calc Est GFR (MDRD) Af Amer Est GFR (MDRD) Non-Af BUN/Creatinine Ratio Glucose Lactic Acid 10.4 H* Calcium Total Bilirubin AST ALT Alkaline Phosphatase B-Natriuretic Peptide Total Protein Albumin Globulin Albumin/Globulin Ratio Cortisol 38.00 H Urine Color Urine Clarity Urine pH Ur Specific [place] Urine Protein Urine Glucose (UA) Urine Ketones Urine Occult Blood Urine Nitrite Urine Bilirubin Urine Urobilinogen Ur Leukocyte Esterase Urine RBC Urine WBC Ur Squamous Epith Cells Urine Bacteria Hyaline Casts Urine Mucus POC Glucose 05/08/19 05/08/19 05/08/19 21:20 23:00 23:27 WBC RBC Hgb Hct MCV MCH MCHC RDW Std Deviation RDW Coeff of Linda Plt Count MPV Immature Gran % (Auto) Neut % (Auto) Lymph % (Auto) Forrest % (Auto) Eos % (Auto) Baso % (Auto) Absolute Neuts (auto) Absolute Lymphs (auto) Nucleated RBC % Differential Comment Platelet Estimate RBC Morphology Polychromasia Hypochromasia Anisocytosis Ovalocytes Crenated Cell PT INR APTT Specimen Type Sample Site pH Bicarbonate Actual POC Total CO2 Base Excess O2 Saturation O2 % ABG pCO2 ABG pO2 Alexis Test O2 Delivery Device Blood Gas Notified Whom Blood Gas Notified Time Sodium Potassium Chloride Carbon Dioxide Anion Gap BUN Creatinine Estim Creat Clear Calc Est GFR (MDRD) Af Amer Est GFR (MDRD) Non-Af BUN/Creatinine Ratio Glucose Lactic Acid 4.8 H* Calcium Total Bilirubin AST ALT Alkaline Phosphatase B-Natriuretic Peptide Total Protein Albumin Globulin Albumin/Globulin Ratio Cortisol Urine Color Urine Clarity Urine pH Ur Specific [place] Urine Protein Urine Glucose (UA) Urine Ketones Urine Occult Blood Urine Nitrite Urine Bilirubin Urine Urobilinogen Ur Leukocyte Esterase Urine RBC Urine WBC Ur Squamous Epith Cells Urine Bacteria Hyaline Casts Urine Mucus POC Glucose 123 H 127 H 05/09/19 05/09/19 05/09/19 00:09 04:00 04:00 WBC 11.8 H RBC 5.19 Hgb 12.8 L Hct 44.0 MCV 84.8 MCH 24.7 L MCHC 29.1 L RDW Std Deviation 61.3 H RDW Coeff of Linda 20.6 H Plt Count 212 MPV 9.4 Immature Gran % (Auto) 1.200 H Neut % (Auto) 91.5 H Lymph % (Auto) 3.2 L Forrest % (Auto) 3.7 Eos % (Auto) 0.1 Baso % (Auto) 0.3 Absolute Neuts (auto) 10.8 H Absolute Lymphs (auto) 0.38 L Nucleated RBC % 0 Differential Comment SCANNED Platelet Estimate RBC Morphology Polychromasia 1+ Hypochromasia 2+ Anisocytosis Ovalocytes Crenated Cell 1+ PT INR APTT Specimen Type Sample Site pH Bicarbonate Actual POC Total CO2 Base Excess O2 Saturation O2 % ABG pCO2 ABG pO2 Alexis Test O2 Delivery Device Blood Gas Notified Whom Blood Gas Notified Time Sodium 135 L Potassium 5.8 H Chloride 103 Carbon Dioxide 14.0 L Anion Gap 18 H BUN 29 H Creatinine 1.01 Estim Creat Clear Calc 75.25 Est GFR (MDRD) Af Amer 97 Est GFR (MDRD) Non-Af 80 BUN/Creatinine Ratio 28.7 H Glucose 100 Lactic Acid Calcium 8.4 L Total Bilirubin AST ALT Alkaline Phosphatase B-Natriuretic Peptide Total Protein Albumin Globulin Albumin/Globulin Ratio Cortisol Urine Color Urine Clarity Urine pH Ur Specific [place] Urine Protein Urine Glucose (UA) Urine Ketones Urine Occult Blood Urine Nitrite Urine Bilirubin Urine Urobilinogen Ur Leukocyte Esterase Urine RBC Urine WBC Ur Squamous Epith Cells Urine Bacteria Hyaline Casts Urine Mucus POC Glucose 158 H 05/09/19 05/09/19 05/09/19 04:00 04:06 04:40 WBC RBC Hgb Hct MCV MCH MCHC RDW Std Deviation RDW Coeff of Linda Plt Count MPV Immature Gran % (Auto) Neut % (Auto) Lymph % (Auto) Forrest % (Auto) Eos % (Auto) Baso % (Auto) Absolute Neuts (auto) Absolute Lymphs (auto) Nucleated RBC % Differential Comment Platelet Estimate RBC Morphology Polychromasia Hypochromasia Anisocytosis Ovalocytes Crenated Cell PT INR APTT Specimen Type Sample Site pH Bicarbonate Actual POC Total CO2 Base Excess O2 Saturation O2 % ABG pCO2 ABG pO2 Alexis Test O2 Delivery Device Blood Gas Notified Whom Blood Gas Notified Time Sodium Potassium Chloride Carbon Dioxide Anion Gap BUN Creatinine Estim Creat Clear Calc Est GFR (MDRD) Af Amer Est GFR (MDRD) Non-Af BUN/Creatinine Ratio Glucose Lactic Acid Calcium Total Bilirubin AST ALT Alkaline Phosphatase B-Natriuretic Peptide 3194.1 H Total Protein Albumin Globulin Albumin/Globulin Ratio Cortisol Urine Color Yellow Urine Clarity Clear Urine pH 5.0 Ur Specific [place] 1.020 Urine Protein 100 H Urine Glucose (UA) Normal Urine Ketones 5 H Urine Occult Blood 25 H Urine Nitrite Negative Urine Bilirubin Negative Urine Urobilinogen 1 H Ur Leukocyte Esterase 25 H Urine RBC 0-5 SEEN Urine WBC 0-5 SEEN Ur Squamous Epith Cells 0 SEEN Urine Bacteria RARE Hyaline Casts 0-5 SEEN Urine Mucus 1+ POC Glucose 93 05/09/19 05/09/19 05/09/19 08:12 13:20 16:07 WBC RBC Hgb Hct MCV MCH MCHC RDW Std Deviation RDW Coeff of Linda Plt Count MPV Immature Gran % (Auto) Neut % (Auto) Lymph % (Auto) Forrest % (Auto) Eos % (Auto) Baso % (Auto) Absolute Neuts (auto) Absolute Lymphs (auto) Nucleated RBC % Differential Comment Platelet Estimate RBC Morphology Polychromasia Hypochromasia Anisocytosis Ovalocytes Crenated Cell PT INR APTT Specimen Type Sample Site pH Bicarbonate Actual POC Total CO2 Base Excess O2 Saturation O2 % ABG pCO2 ABG pO2 Alexis Test O2 Delivery Device Blood Gas Notified Whom Blood Gas Notified Time Sodium 134 L Potassium 5.2 H Chloride 106 Carbon Dioxide 21.0 Anion Gap 7 BUN 30 H Creatinine 0.89 Estim Creat Clear Calc 85.39 Est GFR (MDRD) Af Amer 112 Est GFR (MDRD) Non-Af 93 BUN/Creatinine Ratio 33.7 H Glucose 259 H Lactic Acid Calcium 8.0 L Total Bilirubin AST ALT Alkaline Phosphatase B-Natriuretic Peptide Total Protein Albumin Globulin Albumin/Globulin Ratio Cortisol Urine Color Urine Clarity Urine pH Ur Specific [place] Urine Protein Urine Glucose (UA) Urine Ketones Urine Occult Blood Urine Nitrite Urine Bilirubin Urine Urobilinogen Ur Leukocyte Esterase Urine RBC Urine WBC Ur Squamous Epith Cells Urine Bacteria Hyaline Casts Urine Mucus POC Glucose 182 H 187 H 05/09/19 05/10/19 05/10/19 23:02 06:21 06:40 WBC RBC Hgb Hct MCV MCH MCHC RDW Std Deviation RDW Coeff of Linda Plt Count MPV Immature Gran % (Auto) Neut % (Auto) Lymph % (Auto) Forrest % (Auto) Eos % (Auto) Baso % (Auto) Absolute Neuts (auto) Absolute Lymphs (auto) Nucleated RBC % Differential Comment Platelet Estimate RBC Morphology Polychromasia Hypochromasia Anisocytosis Ovalocytes Crenated Cell PT INR APTT Specimen Type Sample Site pH Bicarbonate Actual POC Total CO2 Base Excess O2 Saturation O2 % ABG pCO2 ABG pO2 Alexis Test O2 Delivery Device Blood Gas Notified Whom Blood Gas Notified Time Sodium 136 Potassium 4.6 Chloride 104 Carbon Dioxide 23.0 Anion Gap 9 BUN 32 H Creatinine 0.60 L Estim Creat Clear Calc 126.67 Est GFR (MDRD) Af Amer 177 Est GFR (MDRD) Non-Af 146 BUN/Creatinine Ratio 53.5 H Glucose 111 H Lactic Acid Calcium 8.1 L Total Bilirubin AST ALT Alkaline Phosphatase B-Natriuretic Peptide Total Protein Albumin Globulin Albumin/Globulin Ratio Cortisol Urine Color Urine Clarity Urine pH Ur Specific [place] Urine Protein Urine Glucose (UA) Urine Ketones Urine Occult Blood Urine Nitrite Urine Bilirubin Urine Urobilinogen Ur Leukocyte Esterase Urine RBC Urine WBC Ur Squamous Epith Cells Urine Bacteria Hyaline Casts Urine Mucus POC Glucose 122 H 125 H Medical Necessity - Tobacco Use Smoking Status: Current every day smoker Assessment/Plan All Active Problems (Last Reviewed 05/09/19 @ 00:04 by Marcus Mi MD) Acute respiratory failure (Acute) Lactic acidosis (Acute) Shock, unspecified (Acute) Lactic acidosis (Acute) Respiratory failure with hypoxia (Acute) Bronchospasm (Acute) Gram-negative pneumonia (Ruled-out) Unspecified jaundice (Acute) Lactic acidosis (Resolved) Sinus tachycardia by electrocardiogram (Resolved) Leukocytosis (Resolved) Hyponatremia (Resolved) Hypoxia (Acute) COPD exacerbation (Acute) Acute respiratory failure with hypoxia (Acute) Septic shock (Resolved) Severe sepsis (Resolved) Systolic CHF (Acute) Septic shock (Ruled-out) COPD with acute exacerbation (Acute) Acute respiratory failure with hypoxemia (Acute) Acute bronchitis (Resolved) COPD exacerbation (Resolved) HCAP (healthcare-associated pneumonia) (Resolved) Hypotension (Resolved) MRSA (methicillin resistant Staphylococcus aureus) infection (Resolved) NSVT (nonsustained ventricular tachycardia) (Resolved) Near syncope (Resolved) RECOMMENDATIONS: 1. Increase activity as tolerated 2. Aggressive rate control 3. BiPAP breaks as tolerated 4. Okay to initiate p.o. diet 5. Walking oximetry prior to discharge 6. Likely discontinue antibiotics after 48 hours IMPRESSIONS: 1. Acute hypoxic respiratory failure Unclear etiology at this time. Patient reportedly does have a history of COPD, but it is unclear if patient had prodromal symptoms such as fever or productive cough. Patient does have a significantly elevated BNP, but tends to be at higher baseline. This would be consistent with flash pulmonary edema. Agree with empiric antibiotics until further information is available. Cultures are currently pending. Continue with pulmonary toileting. Unclear if patient is developing flash pulmonary edema secondary to noncompliance with supplemental oxygen at home. 2. Suspected acute on chronic systolic congestive heart failure Patient does have an EF of 15% with elevated BNP on presentation. Will need to watch patient closely for flash pulmonary edema if he develops tachycardia. Doubt repeat echocardiogram would be helpful acutely as heart function is so depressed at baseline. 3. Hyponatremia/hyperkalemia Resolved. No indication for renal replacement therapy. Potassium is at acceptable levels at this time. 4. History of noncompliance/tobacco abuse/reported history of amphetamine use Complicates care, management, recovery and prognosis. Can apply nicotine patch if patient so signs of withdrawal. Code Visit Inpatient E&M: [id number] [facility] L3
--- NOTE | 2019-05-10 08:22 | CPS ---
Pt placed on 3 lpm per request to have Bipap removed. Pt's nurse notified of change.
[2019-05-10] MEDS: Isosorbide Mononitrate 30 MG Tablet PO (09:47)
[2019-05-10] MEDS: Losartan Potassium 25 MG Tablet PO (09:48)
[2019-05-10] MEDS: Carvedilol 6.25 MG Tablet PO ×2 (09:48→21:42)
[2019-05-10] MEDS: Ferrous Gluconate 324 MG Tablet PO ×2 (09:48→18:00)
[2019-05-10] MEDS: Clopidogrel Bisulfate 75 MG Tablet PO (09:48)
[2019-05-10] MEDS: Aspirin E.C. 81 MG Tablet PO (09:48)
[2019-05-10] MEDS: predniSONE 10 MG Tablet PO (09:48)
--- NOTE | 2019-05-10 11:23 | CPS ---
pt was offered to be placed back on Bipap while sleeping but he refused.
--- NOTE | 2019-05-10 15:31 | PN_ITS ---
Patient Problems: Active and Suspected Problems (Last Reviewed 05/09/19 @ 00:04 by Marcus Mi MD) Acute respiratory failure (Acute) Lactic acidosis (Acute) Shock, unspecified (Acute) Lactic acidosis (Acute) Respiratory failure with hypoxia (Acute) Bronchospasm (Acute) Subjective: Patient is confused and disoriented. Heart rate in 80s. Blood pressure is controlled. No fever or chills. Patient tolerated BiPAP last night. Urine culture is negative. Vitals/I&O's: Vital Signs Temp Pulse Resp BP Pulse Ox 98.4 F 97 16 130/89 H 97 05/10/19 09:40 05/10/19 15:05 05/10/19 15:05 05/10/19 09:40 05/10/19 13:50 Oxygen Flow Rate (L/min) 3 Oxygen Delivery Method Nasal Cannula Weight: 162 lb 4.163 oz Body Mass Index (BMI) 29.0 Finger Stick Blood Glucose 123 Intake and Output for Last 24 Hours 05/08/19 05/09/19 05/10/19 23:59 23:59 23:59 Intake Total 2400 / 2702 3028 / 3028 350 / 350 Output Total 1200 / 1200 400 / 400 Balance 2400 / 2702 1828 / 1828 -50 / -50 General: Confused, Disoriented, Lethargic HEENT: Atraumatic, PERRLA, EOMI, Normocephalic Oral: Dry Mucosa Neck: Supple, No JVD, Negative Carotid Bruits Lungs: Diminished - Air entry severely diminished., Rhonchi - NO rhonchi present Cardiovascular: Regular rate, Normal S1, Normal S2, No murmurs Abdomen: Bowel Sounds Present, Soft, Non Tender, Non-Distended Extremities: Capillary Refill Less than 3 Seconds, Edema - Slight 1+ Skin: No rashes, No breakdown Musculoskeletal: No Tenderness to Palpation of Joints or Extremities, Arthritic Changes, Muscle Wasting Neurological: Cranial nerves II-XII grossly intact, Neuro grossly intact Microbiology Past 72 Hours 05/09/19 04:40 Urine, Clean Catch Urine Culture - Preliminary Culture exhibits no growth. Laboratory Results 05/09/19 16:07: POC Glucose 187 H 05/09/19 23:02: POC Glucose 122 H 05/10/19 06:21: Sodium 136, Potassium 4.6, Chloride 104, Carbon Dioxide 23.0, Anion Gap 9, BUN 32 H, Creatinine 0.60 L, Estim Creat Clear Calc 126.67, Est GFR (MDRD) Af Amer 177, Est GFR (MDRD) Non-Af 146, BUN/Creatinine Ratio 53.5 H, Glucose 111 H, Calcium 8.1 L 05/10/19 06:40: POC Glucose 125 H Current Medications Albuterol Sulfate (Ventolin Aerosols) 2.5 mg INHALATION Q2H PRN PRN PRN Reason: SOB/Wheezing Albuterol/Ipratropium (Duoneb) 3 ml INHALATION Q4HWA.RT [facility] Last Admin: 05/10/19 15:05 Dose: 3 ml Documented by: Aspirin (Ecotrin) 81 mg PO DAILY@0800 [facility] Last Admin: 05/10/19 09:48 Dose: 81 mg Documented by: Atorvastatin Calcium (Lipitor) 80 mg PO QHS [facility] Last Admin: 05/09/19 22:57 Dose: 80 mg Documented by: Carvedilol (Coreg) 6.25 mg PO BID [facility] Last Admin: 05/10/19 09:48 Dose: 6.25 mg Documented by: Clopidogrel Bisulfate (Plavix) 75 mg PO DAILY [facility] Last Admin: 05/10/19 09:48 Dose: 75 mg Documented by: Dextrose (D50w Syringe) 0 gm IV X1 PRN; Protocol PRN Reason: Hypoglycemia Ferrous Gluconate (Ferrous Gluconate) 324 mg PO BIDCM [facility] Last Admin: 05/10/19 09:48 Dose: 324 mg Documented by: Glucagon () 1 mg IM .X1 PRN PRN Reason: Hypoglycemia Azithromycin 500 mg/ Dextrose 255 mls @ 250 mls/hr IV Q24@2200 [facility] Last Admin: 05/09/19 22:58 Dose: 250 mls/hr Documented by: Isosorbide Mononitrate (Imdur) 30 mg PO DAILY [facility] Last Admin: 05/10/19 09:47 Dose: 30 mg Documented by: Labetalol HCl (Trandate) 10 mg IV Q4H PRN PRN PRN Reason: SBP > 160 Losartan Potassium (Cozaar) 25 mg PO DAILY [facility] Last Admin: 05/10/19 09:48 Dose: 25 mg Documented by: Ondansetron HCl (Zofran) 4 mg IV Q8H PRN PRN PRN Reason: NAUSEA/VOMITING Prednisone () 10 mg PO DAILY@0800 [facility] Last Admin: 05/10/19 09:48 Dose: 10 mg Documented by: Sodium Chloride () 10 - 40 ml IV UD PRN PRN Reason: SALINE FLUSH Last Admin: 05/09/19 16:05 Dose: 20 ml Documented by: Medical Necessity - Tobacco Use Smoking Status: Current every day smoker Assessment/Plan All Active Problems (Last Reviewed 05/09/19 @ 00:04 by Marcus Mi MD) Acute respiratory failure (Acute) Lactic acidosis (Acute) Shock, unspecified (Acute) Lactic acidosis (Acute) Respiratory failure with hypoxia (Acute) Bronchospasm (Acute) Gram-negative pneumonia (Ruled-out) Unspecified jaundice (Acute) Lactic acidosis (Resolved) Sinus tachycardia by electrocardiogram (Resolved) Leukocytosis (Resolved) Hyponatremia (Resolved) Hypoxia (Acute) COPD exacerbation (Acute) Acute respiratory failure with hypoxia (Acute) Septic shock (Resolved) Severe sepsis (Resolved) Systolic CHF (Acute) Septic shock (Ruled-out) COPD with acute exacerbation (Acute) Acute respiratory failure with hypoxemia (Acute) Acute bronchitis (Resolved) COPD exacerbation (Resolved) HCAP (healthcare-associated pneumonia) (Resolved) Hypotension (Resolved) MRSA (methicillin resistant Staphylococcus aureus) infection (Resolved) NSVT (nonsustained ventricular tachycardia) (Resolved) Near syncope (Resolved) The patient is a 58 year old M with multiple comorbidities including coronary artery disease with PCI to RCA and circumflex, ischemic cardiomyopathy, EF 15% history of chronic heart failure status post AICD was admitted with severe shortness of breath. ABG done in the ER . on 24% Ventimask. His baseline CO2 is about 37-40', never more than 40. The patient was last discharged on 04/10/2019 with similar history and diagnosis of acute hypoxic respiratory failure secondary to acute exacerbation of COPD and exacerbation of heart failure. At that time pneumonia was ruled out. 1. Acute hypoxic respiratory failure secondary to possible COPD exacerbation: Chest x-ray and then chest CT was done which shows mild focal interstitial infiltrate/atelectasis in left upper and lower lobes. PE was inconclusive secondary to motion artifact. Recommended venous Doppler for lower extremities. ABG is more suggestive of mild metabolic acidosis with high anion gap, anion gap 17, bicarb 16, K 5.4. Lactic acid 10.4. Seems metabolic acidosis from low/compromised perfusion. The patient was also on prednisone therefore suspicion of adrenal failure and was given Solu-Cortef. Blood culture is negative for more than 48 hours. Urine culture is negative. Will discontinue antibiotic. Continue DuoNeb, and TV spirometry and chest physiotherapy. 2. Hypoglycemia His glucose on BMP on presentation was 45. Patient received half an amp of D50. 3. Chronic heart failure with low EF: EF 15%. Chest x-ray and CTPA is not suggestive of pulmonary edema. No acute exacerbation. IV fluid discontinued. BNP 3194 Electrolyte abnormality: Hyponatremia, hyperkalemia, high anion gap metabolic acidosis: Kayexalate was given on 05/09. Electrolyte corrected. Sodium 136, K4.6. Other chronic comorbidities include coronary artery disease status post stent, hypertension, possible peripheral arterial disease The patient has history of nicotine use/cigarette smoking: Clinical Impression(s) from Imaging Studies Chest X-Ray 05/08/19 18:45 IMPRESSION: Mild COPD and superimposed ASHD. No acute disease. Chest CTA 05/08/19 22:03 IMPRESSION: Minor interstitial changes with mild focal interstitial infiltrate or atelectasis in the left upper and lower lobes. No definitive evidence for pulmonary embolus given less than optimal study due to motion artifact. If strong clinical suspicion for pulmonary embolus Doppler study of the deep venous system of lower extremities may be helpful for further evaluation Code Visit Inpatient E&M: 83272 [facility] Hosp L3
[2019-05-10 16:55] LABS: Bedside Glucose 130 mg/dL (70-110)
[2019-05-10] MEDS: Atorvastatin Calcium 80 MG Tablet PO (21:42)
[2019-05-10 21:55] LABS: Bedside Glucose 156 mg/dL (70-110)
[2019-05-10] MEDS: 0.9% NaCl Peripheral Flush Adult/Peds IV (22:03)
[2019-05-10] MEDS: LORazepam 2 MG/ML Syringe 0.5 MG IV (23:09)
[2019-05-11] VITALS (17 sets, daily range): BP systolic 115–145; BP diastolic 80–89; PULSE 78–101; RESP 12–24; TEMP 36.3–36.7; O2SAT 94–100
[2019-05-11 07:00] LABS: Bedside Glucose 157 mg/dL (70-110)
[2019-05-11] MEDS: Ipratropium/Albuterol Sulfate 3 ML AMPUL.NEB INHALATION ×4 (07:35→19:30)
--- NOTE | 2019-05-11 08:20 | PCM.PN.PUL ---
Patient Problems: Active and Suspected Problems (Last Reviewed 05/09/19 @ 00:04 by Marcus Mi MD) Acute respiratory failure (Acute) Lactic acidosis (Acute) Shock, unspecified (Acute) Lactic acidosis (Acute) Respiratory failure with hypoxia (Acute) Bronchospasm (Acute) Subjective: Patient did okay overnight. Patient did refuse to wear BiPAP until 4:00 in the morning and used it for only 2 hours. Patient is reporting some nausea this morning. No emesis has been reported. Patient is on baseline nasal cannula oxygen. - Physical Exam General: Alert, Oriented x3, Cooperative - Intermittently, - - Mild distress secondary to nausea. No conversational dyspnea. HEENT: Atraumatic, PERRLA, EOMI, Normocephalic, - - Right scleral injection without icterus Oral: Moist Mucosa, No Gingival or Mucosal Lesions/ Ulcerations Neck: Supple, No JVD, No Nodes, Trachea Midline Lungs: No rhonchi, No wheeze, No rales, Diminished, - - Symmetric expansion. No dullness to percussion. Cardiovascular: Regular rate, Regular Rhythm, Normal S1, Normal S2, No rub noted, No Gallop Abdomen: Bowel Sounds Present, Soft, Non Tender, Non-Distended Extremities: No cyanosis, No edema, Capillary Refill Less than 3 Seconds, Clubbing Skin: No rashes, No breakdown Musculoskeletal: No Tenderness to Palpation of Joints or Extremities Lymphatic: No Cervical, Supraclavicular, or Inguinal Adenopathy Neurological: Cranial nerves II-XII grossly intact, Neuro grossly intact, Motor Exam 5/5 strength throughout Psych/Mental Status: Anxious, Restless Vital Signs Temp Pulse Resp BP Pulse Ox 36.6 C 88 16 133/88 H 94 05/11/19 03:30 05/11/19 07:35 05/11/19 07:35 05/11/19 03:30 05/11/19 07:35 Oxygen Flow Rate (L/min) 2 Oxygen Delivery Method Nasal Cannula Weight: 72.3 kg Body Mass Index (BMI) 29.0 Finger Stick Blood Glucose 123 Intake and Output for Last 24 Hours 05/09/19 05/10/19 05/11/19 23:59 23:59 23:59 Intake Total 3028 / 3028 2312 / 2312 Output Total 1200 / 1200 1625 / 1625 Balance 1828 / 1828 687 / 687 Microbiology Past 72 Hours 05/09/19 04:40 Urine Culture - Preliminary Urine, Clean Catch Culture exhibits no growth. POC Glucose 05/11/19 05/10/19 05/10/19 06:50 21:49 16:53 POC Glucose 157 H 156 H 130 H Medical Necessity - Tobacco Use Smoking Status: Current every day smoker Assessment/Plan All Active Problems (Last Reviewed 05/09/19 @ 00:04 by Marcus Mi MD) Acute respiratory failure (Acute) Lactic acidosis (Acute) Shock, unspecified (Acute) Lactic acidosis (Acute) Respiratory failure with hypoxia (Acute) Bronchospasm (Acute) Gram-negative pneumonia (Ruled-out) Unspecified jaundice (Acute) Lactic acidosis (Resolved) Sinus tachycardia by electrocardiogram (Resolved) Leukocytosis (Resolved) Hyponatremia (Resolved) Hypoxia (Acute) COPD exacerbation (Acute) Acute respiratory failure with hypoxia (Acute) Septic shock (Resolved) Severe sepsis (Resolved) Systolic CHF (Acute) Septic shock (Ruled-out) COPD with acute exacerbation (Acute) Acute respiratory failure with hypoxemia (Acute) Acute bronchitis (Resolved) COPD exacerbation (Resolved) HCAP (healthcare-associated pneumonia) (Resolved) Hypotension (Resolved) MRSA (methicillin resistant Staphylococcus aureus) infection (Resolved) NSVT (nonsustained ventricular tachycardia) (Resolved) Near syncope (Resolved) RECOMMENDATIONS: 1. Increase activity as tolerated 2. Aggressive rate control 3. BiPAP nightly if patient agreeable 4. Okay to discharge from a pulmonary perspective 5. Walking oximetry prior to discharge 6. Discontinue antibiotics IMPRESSIONS: 1. Acute hypoxic respiratory failure Unclear etiology at this time. Patient reportedly does have a history of COPD, but it is unclear if patient had prodromal symptoms such as fever or productive cough. Patient does have a significantly elevated BNP, but tends to be at higher baseline. This would be consistent with flash pulmonary edema. Okay to discontinue antibiotics. Continue with pulmonary toileting. Unclear if patient is developing flash pulmonary edema secondary to noncompliance with supplemental oxygen at home. 2. Suspected acute on chronic systolic congestive heart failure Patient does have an EF of 15% with elevated BNP on presentation. Will need to watch patient closely for flash pulmonary edema if he develops tachycardia. Doubt repeat echocardiogram would be helpful acutely as heart function is so depressed at baseline. 3. Hyponatremia/hyperkalemia Resolved. No indication for renal replacement therapy. Potassium is at acceptable levels at this time. 4. History of noncompliance/tobacco abuse/reported history of amphetamine use Complicates care, management, recovery and prognosis. Can apply nicotine patch if patient so signs of withdrawal. Code Visit Inpatient E&M: 98108 Subs Hosp L2
[2019-05-11] MEDS: Ferrous Gluconate 324 MG Tablet PO ×2 (09:18→15:30)
[2019-05-11] MEDS: Aspirin E.C. 81 MG Tablet PO (09:18)
[2019-05-11] MEDS: Isosorbide Mononitrate 30 MG Tablet PO (09:19)
[2019-05-11] MEDS: predniSONE 10 MG Tablet PO (09:19)
[2019-05-11] MEDS: Carvedilol 6.25 MG Tablet PO ×2 (09:19→21:15)
[2019-05-11] MEDS: Losartan Potassium 25 MG Tablet PO (09:19)
[2019-05-11] MEDS: Clopidogrel Bisulfate 75 MG Tablet PO (09:19)
[2019-05-11] MEDS: Ondansetron 4 MG/2 ML Vial IV (10:24)
[2019-05-11] MEDS: 0.9% NaCl Peripheral Flush Adult/Peds IV ×2 (10:24→21:23)
[2019-05-11 11:25] LABS: Bedside Glucose 118 mg/dL (70-110)
--- NOTE | 2019-05-11 13:28 | PN_ITS ---
Patient Problems: Active and Suspected Problems (Last Reviewed 05/09/19 @ 00:04 by Marcus Mi MD) Acute respiratory failure (Acute) Lactic acidosis (Acute) Shock, unspecified (Acute) Lactic acidosis (Acute) Respiratory failure with hypoxia (Acute) Bronchospasm (Acute) Subjective: Patient did not have any fever or chills. Blood pressure is stable. Patient refused for BiPAP last night. Currently on 2 L of oxygen Vitals/I&O's: Vital Signs Temp Pulse Resp BP Pulse Ox 97.4 F L 92 16 139/80 H 97 05/11/19 09:16 05/11/19 11:20 05/11/19 11:20 05/11/19 09:16 05/11/19 11:20 Oxygen Flow Rate (L/min) 2 Oxygen Delivery Method Room Air Weight: 159 lb 6.307 oz Body Mass Index (BMI) 29.0 Finger Stick Blood Glucose 123 Intake and Output for Last 24 Hours 05/09/19 05/10/19 05/11/19 23:59 23:59 23:59 Intake Total 3028 / 3028 2312 / 2312 400 / 400 Output Total 1200 / 1200 1625 / 1625 500 / 500 Balance 1828 / 1828 687 / 687 -100 / -100 General: Confused, Disoriented, Lethargic HEENT: Atraumatic, PERRLA, EOMI, Normocephalic Neck: Supple, No JVD, Negative Carotid Bruits Lungs: Diminished - Air entry is diminished., Rhonchi - Occasional rhonchi Cardiovascular: Regular rate, Normal S1, Normal S2, No murmurs Abdomen: Bowel Sounds Present, Soft, Non Tender, Non-Distended Extremities: Capillary Refill Less than 3 Seconds, Diminished Peripheral Pulses, Edema - Very slight edema Skin: - - Varicose vein, dilated tortuous vein and dry skin in both lower extremities Musculoskeletal: Arthritic Changes, Muscle Wasting Neurological: Cranial nerves II-XII grossly intact, Deep Tendon Reflexes 2+/4 and Symmetrical, Neuro grossly intact Microbiology Past 72 Hours 05/08/19 18:45 Blood Culture (Wb) - Anticubital Right Blood Culture - Preliminary No growth in 48 hours. 05/08/19 18:40 Blood Culture (Wb) - Arm Left Blood Culture - Preliminary No growth in 48 hours. 05/09/19 04:40 Urine, Clean Catch Urine Culture - Final Culture exhibits no growth. Laboratory Results 05/10/19 16:53: POC Glucose 130 H 05/10/19 21:49: POC Glucose 156 H 05/11/19 06:50: POC Glucose 157 H 05/11/19 11:18: POC Glucose 118 H Current Medications Albuterol Sulfate (Ventolin Aerosols) 2.5 mg INHALATION Q2H PRN PRN PRN Reason: SOB/Wheezing Albuterol/Ipratropium (Duoneb) 3 ml INHALATION Q4HWA.RT [facility] Last Admin: 05/11/19 11:20 Dose: 3 ml Documented by: Aspirin (Ecotrin) 81 mg PO DAILY@0800 [facility] Last Admin: 05/11/19 09:18 Dose: 81 mg Documented by: Atorvastatin Calcium (Lipitor) 80 mg PO QHS [facility] Last Admin: 05/10/19 21:42 Dose: 80 mg Documented by: Carvedilol (Coreg) 6.25 mg PO BID [facility] Last Admin: 05/11/19 09:19 Dose: 6.25 mg Documented by: Clopidogrel Bisulfate (Plavix) 75 mg PO DAILY [facility] Last Admin: 05/11/19 09:19 Dose: 75 mg Documented by: Dextrose (D50w Syringe) 0 gm IV X1 PRN; Protocol PRN Reason: Hypoglycemia Ferrous Gluconate (Ferrous Gluconate) 324 mg PO BIDCM [facility] Last Admin: 05/11/19 09:18 Dose: 324 mg Documented by: Glucagon () 1 mg IM .X1 PRN PRN Reason: Hypoglycemia Isosorbide Mononitrate (Imdur) 30 mg PO DAILY [facility] Last Admin: 05/11/19 09:19 Dose: 30 mg Documented by: Labetalol HCl (Trandate) 10 mg IV Q4H PRN PRN PRN Reason: SBP > 160 Lorazepam (Ativan) 0.5 mg PO QHS PRN PRN PRN Reason: ANXIETY/AGITATION Losartan Potassium (Cozaar) 25 mg PO DAILY [facility] Last Admin: 05/11/19 09:19 Dose: 25 mg Documented by: Ondansetron HCl (Zofran) 4 mg IV Q8H PRN PRN PRN Reason: NAUSEA/VOMITING Last Admin: 05/11/19 10:24 Dose: 4 mg Documented by: Prednisone () 10 mg PO DAILY@0800 [facility] Last Admin: 05/11/19 09:19 Dose: 10 mg Documented by: Sodium Chloride () 10 - 40 ml IV UD PRN PRN Reason: SALINE FLUSH Last Admin: 05/11/19 10:24 Dose: 10 ml Documented by: Medical Necessity - Tobacco Use Smoking Status: Current every day smoker Assessment/Plan All Active Problems (Last Reviewed 05/09/19 @ 00:04 by Marcus Mi MD) Acute respiratory failure (Acute) Lactic acidosis (Acute) Shock, unspecified (Acute) Lactic acidosis (Acute) Respiratory failure with hypoxia (Acute) Bronchospasm (Acute) Gram-negative pneumonia (Ruled-out) Unspecified jaundice (Acute) Lactic acidosis (Resolved) Sinus tachycardia by electrocardiogram (Resolved) Leukocytosis (Resolved) Hyponatremia (Resolved) Hypoxia (Acute) COPD exacerbation (Acute) Acute respiratory failure with hypoxia (Acute) Septic shock (Resolved) Severe sepsis (Resolved) Systolic CHF (Acute) Septic shock (Ruled-out) COPD with acute exacerbation (Acute) Acute respiratory failure with hypoxemia (Acute) Acute bronchitis (Resolved) COPD exacerbation (Resolved) HCAP (healthcare-associated pneumonia) (Resolved) Hypotension (Resolved) MRSA (methicillin resistant Staphylococcus aureus) infection (Resolved) NSVT (nonsustained ventricular tachycardia) (Resolved) Near syncope (Resolved) The patient is a 58 year old M with multiple comorbidities including coronary artery disease with PCI to RCA and circumflex, ischemic cardiomyopathy, EF 15% history of chronic heart failure status post AICD was admitted with severe shortness of breath. ABG done in the ER 7. on 24% Ventimask. His baseline CO2 is about 37-40', never more than 40. The patient was last discharged on 04/10/2019 with similar history and diagnosis of acute hypoxic respiratory failure secondary to acute exacerbation of COPD and exacerbation of heart failure. At that time pneumonia was ruled out. 1. Acute hypoxic respiratory failure secondary to possible COPD exacerbation: Chest x-ray and then chest CT was done which shows mild focal interstitial infiltrate/atelectasis in left upper and lower lobes. PE was inconclusive secondary to motion artifact. Venous Doppler of bilateral lower extremities is negative for acute DVT. ABG is more suggestive of mild metabolic acidosis with high anion gap, anion gap 17, bicarb 16, K 5.4. Lactic acid 10.4. Seems metabolic acidosis from low/compromised perfusion. Blood culture is negative for more than 48 hours. Urine culture is negative. Prednisone continued. Antibiotic discontinued. Continue DuoNeb, and TV spirometry and chest physiotherapy. 2. Hypoglycemia His glucose on BMP on presentation was 45. Patient received half an amp of D50. Blood sugar is controlled. 3. Chronic heart failure with low EF: EF 15%. Chest x-ray and CTPA is not suggestive of pulmonary edema. No acute exacerbation. IV fluid discontinued. BNP 3194 Electrolyte abnormality: Hyponatremia, hyperkalemia, high anion gap metabolic acidosis: Kayexalate was given on 05/09. Electrolyte corrected. Sodium 136, K4.6. Other chronic comorbidities include coronary artery disease status post stent, hypertension, possible peripheral arterial disease The patient has history of nicotine use/cigarette smoking: Discharge tomorrow with help of correctional casework specialist regarding oxygen, BiPAP and ambulation treatment equipments. Microbiology Past 72 Hours 05/08/19 18:45 Blood Culture (Wb) - Anticubital Right Blood Culture - Preliminary No growth in 48 hours. 05/08/19 18:40 Blood Culture (Wb) - Arm Left Blood Culture - Preliminary No growth in 48 hours. 05/09/19 04:40 Urine, Clean Catch Urine Culture - Final Culture exhibits no growth. Laboratory Results 05/10/19 16:53: POC Glucose 130 H 05/10/19 21:49: POC Glucose 156 H 05/11/19 06:50: POC Glucose 157 H 05/11/19 11:18: POC Glucose 118 H Clinical Impression(s) from Imaging Studies Chest X-Ray 05/08/19 18:45 IMPRESSION: Mild COPD and superimposed ASHD. No acute disease. Chest CTA 05/08/19 22:03 IMPRESSION: Minor interstitial changes with mild focal interstitial infiltrate or atelectasis in the left upper and lower lobes. No definitive evidence for pulmonary embolus given less than optimal study due to motion artifact. If strong clinical suspicion for pulmonary embolus Doppler study of the deep venous system of lower extremities may be helpful for further evaluation Active Medications Albuterol Sulfate (Ventolin Aerosols) 2.5 mg INHALATION Q2H PRN PRN PRN Reason: SOB/Wheezing Albuterol/Ipratropium (Duoneb) 3 ml INHALATION Q4HWA.RT [facility] Last Admin: 05/11/19 11:20 Dose: 3 ml Documented by: Aspirin (Ecotrin) 81 mg PO DAILY@0800 [facility] Last Admin: 05/11/19 09:18 Dose: 81 mg Documented by: Atorvastatin Calcium (Lipitor) 80 mg PO QHS [facility] Last Admin: 05/10/19 21:42 Dose: 80 mg Documented by: Carvedilol (Coreg) 6.25 mg PO BID [facility] Last Admin: 05/11/19 09:19 Dose: 6.25 mg Documented by: Clopidogrel Bisulfate (Plavix) 75 mg PO DAILY [facility] Last Admin: 05/11/19 09:19 Dose: 75 mg Documented by: Dextrose (D50w Syringe) 0 gm IV X1 PRN; Protocol PRN Reason: Hypoglycemia Ferrous [facility]con[facility]) [facility] Last Admin: 05/11/19 09:18 Dose: 324 mg Documented by: Glucagon () 1 mg IM .X1 PRN PRN Reason: Hypoglycemia Isosorbide Mononitrate (Imdur) 30 mg PO DAILY [facility] Last Admin: 05/11/19 09:19 Dose: 30 mg Documented by: Labetalol HCl (Trandate) 10 mg IV Q4H PRN PRN PRN Reason: SBP > 160 Lorazepam (Ativan) 0.5 mg PO QHS PRN PRN PRN Reason: ANXIETY/AGITATION Losartan Potassium (Cozaar) 25 mg PO DAILY [facility] Last Admin: 05/11/19 09:19 Dose: 25 mg Documented by: Ondansetron HCl (Zofran) 4 mg IV Q8H PRN PRN PRN Reason: NAUSEA/VOMITING Last Admin: 05/11/19 10:24 Dose: 4 mg Documented by: Prednisone () 10 mg PO DAILY@0800 [facility] Last Admin: 05/11/19 09:19 Dose: 10 mg Documented by: Sodium Chloride () 10 - 40 ml IV UD PRN PRN Reason: SALINE FLUSH Last Admin: 05/11/19 10:24 Dose: 10 ml Documented by: Code Visit Inpatient E&M: [id number] Subs Hosp L2
--- NOTE | 2019-05-11 14:32 | NURSING ---
Patient wanting to leave AMA. Spoke with Dr. Cornell and updated him of same. Provided patient with information regarding his medical care and that he should try to stay, but if he wants to leave he can. Informed that insurance will not cover expenses if he leaves against medical advice. Patient voices understanding of same. RN called patient's brother Angel and updated him of same. [place] talking to Angel on the phone. Rn spoke with Angel. He is unable to come get patient at this time, but would try to call the other brother, Javier to see if he can pick patient up. RN asked if Angel could please call this RN back and inform her if Javier is able to pick patient up from hospital. Angel voices understanding of same.
--- NOTE | 2019-05-11 14:47 | NURSING ---
Angel returns call and states that he was unable to get in touch with Javier, but left a message on his phone for him. Patient is resting in bed with eyes closed.
--- NOTE | 2019-05-11 15:28 | NURSING ---
Informed patient that his brother Javier hasn't called RN back about picking patient up. Patient is calmer states It's okay. it is what it is. Patient apologetic for his outburst earlier.
[2019-05-11 17:31] LABS: Bedside Glucose 93 mg/dL (70-110)
[2019-05-11] MEDS: Atorvastatin Calcium 80 MG Tablet PO (21:15)
[2019-05-11] MEDS: MELATONIN 3 MG TABLET PO (21:15)
[2019-05-11] MEDS: LORazepam 0.5 MG Tablet PO (21:17)
[2019-05-11 21:45] LABS: Bedside Glucose 113 mg/dL (70-110)
[2019-05-11] MEDS: Albuterol 2.5 MG/3 ML VIAL.NEB. INHALATION (22:00)
[2019-05-12] VITALS (13 sets, daily range): BP systolic 105–149; BP diastolic 72–97; PULSE 82–104; RESP 16–24; TEMP 36.1–36.7; O2SAT 91–100
[2019-05-12] MEDS: hydrOXYzine PAM 25 MG Capsule 50 MG PO (03:22)
[2019-05-12] MEDS: Albuterol 2.5 MG/3 ML VIAL.NEB. INHALATION (03:30)
--- NOTE | 2019-05-12 03:54 | CPS ---
PT STATES HE CANT TOLERATE BIPAP ,AND REFUSES TO WEAR IT.
--- NOTE | 2019-05-12 04:14 | NURSING ---
Patient has been yelling out multiple times this shift, have offered to put BiPap on multiple times and patient refuses to wear BiPap. Oxygen saturations have remained above 95% with nasal canula but patient still complains that he cannot breath. Have educated patient on BiPap and he continues to refuse.
[2019-05-12] MEDS: Ipratropium/Albuterol Sulfate 3 ML AMPUL.NEB INHALATION ×3 (06:37→15:02)
--- NOTE | 2019-05-12 06:37 | PCM.PN.PUL ---
Patient Problems: Active and Suspected Problems (Last Reviewed 05/09/19 @ 00:04 by Marcus Mi MD) Acute respiratory failure (Acute) Lactic acidosis (Acute) Lactic acidosis (Acute) Respiratory failure with hypoxia (Acute) Bronchospasm (Acute) Subjective: The patient was seen and examined at the bedside this morning. Events from the last 24 hours have been reviewed. The patient is currently afebrile, hemodynamically stable and maintaining appropriate oxygen saturations on 2 L/min via nasal cannula. The patient has refused to wear BiPAP overnight, despite subjective complaints of dyspnea. This morning, the patient continues to endorse ongoing dyspnea, which she feels is getting worse, despite being on rather minimal supplemental oxygen via nasal cannula. He does report the continued presence of a cough which has been productive of sputum. He states that he cannot tolerate any form of nocturnal BiPAP therapy as he feels that it is suffocating him. Objective: The patient's most recent lab work, culture data and imaging studies have all been personally reviewed. Infectious work-up has been unrevealing to date. - Physical Exam General: Alert, Cooperative HEENT: Atraumatic, PERRLA, Normocephalic Oral: No Gingival or Mucosal Lesions/ Ulcerations Neck: Supple, No Nodes, Trachea Midline Lungs: No rhonchi, No wheeze, No rales, Diminished Cardiovascular: Regular rate, Regular Rhythm, Normal S1, Normal S2, No murmurs Abdomen: Bowel Sounds Present, Soft, Non Tender Extremities: No cyanosis, No edema, Clubbing Skin: No breakdown Musculoskeletal: No Tenderness to Palpation of Joints or Extremities Lymphatic: No Cervical, Supraclavicular, or Inguinal Adenopathy Neurological: Neuro grossly intact Psych/Mental Status: Anxious Vital Signs Temp Pulse Resp BP Pulse Ox 98.0 F 82 18 141/97 H 99 05/12/19 03:00 05/12/19 03:30 05/12/19 03:30 05/12/19 03:00 05/12/19 03:00 Oxygen Flow Rate (L/min) 2 Oxygen Delivery Method Nasal Cannula Weight: 160 lb 7.944 oz Body Mass Index (BMI) 29.0 Finger Stick Blood Glucose 123 Intake and Output for Last 24 Hours 05/10/19 05/11/19 05/12/19 23:59 23:59 23:59 Intake Total 2312 / 2312 760 / 760 120 / 120 Output Total 1625 / 1625 700 / 700 Balance 687 / 687 60 / 60 120 / 120 Microbiology Past 72 Hours 05/08/19 18:45 Blood Culture - Preliminary Blood Culture (Wb) - Anticubital Right No growth in 48 hours. 05/08/19 18:40 Blood Culture - Preliminary Blood Culture (Wb) - Arm Left No growth in 48 hours. 05/09/19 04:40 Urine Culture - Final Urine, Clean Catch Culture exhibits no growth. POC Glucose 05/11/19 05/11/19 05/11/19 21:39 17:21 11:18 POC Glucose 113 H 93 118 H 05/11/19 06:50 POC Glucose 157 H Clinical Impression(s) from Imaging Studies Chest X-Ray 05/08/19 18:45 IMPRESSION: Mild COPD and superimposed ASHD. No acute disease. Electronically Signed: Lewis Gallardo MD at 19:00 EDT , Service support , Chest CTA 05/08/19 22:03 IMPRESSION: Minor interstitial changes with mild focal interstitial infiltrate or atelectasis in the left upper and lower lobes. No definitive evidence for pulmonary embolus given less than optimal study due to motion artifact. If strong clinical suspicion for pulmonary embolus Doppler study of the deep venous system of lower extremities may be helpful for further evaluation Electronically Signed: Lewis Gallardo MD at 22:43 EDT , Service support , Medical Necessity - Tobacco Use Smoking Status: Current every day smoker Assessment/Plan All Active Problems (Last Reviewed 05/09/19 @ 00:04 by Marcus Mi MD) Acute respiratory failure (Acute) Lactic acidosis (Acute) Lactic acidosis (Acute) Respiratory failure with hypoxia (Acute) Bronchospasm (Acute) Gram-negative pneumonia (Ruled-out) Lactic acidosis (Resolved) Sinus tachycardia by electrocardiogram (Resolved) Leukocytosis (Resolved) Hyponatremia (Resolved) Hypoxia (Acute) COPD exacerbation (Acute) Acute respiratory failure with hypoxia (Acute) Septic shock (Resolved) Severe sepsis (Resolved) Systolic CHF (Acute) Septic shock (Ruled-out) COPD with acute exacerbation (Acute) Acute respiratory failure with hypoxemia (Acute) Shock, unspecified (Resolved) Acute bronchitis (Resolved) COPD exacerbation (Resolved) HCAP (healthcare-associated pneumonia) (Resolved) Hypotension (Resolved) MRSA (methicillin resistant Staphylococcus aureus) infection (Resolved) NSVT (nonsustained ventricular tachycardia) (Resolved) Near syncope (Resolved) RECOMMENDATIONS: 1. Continue scheduled bronchodilators. 2. Continue to wean supplemental oxygen as tolerated. 3. Encourage incentive spirometer use and mobilize patient as tolerated. 4. BiPAP utilization is strongly recommended. 5. Perform walking oximetry study prior to consideration for discharge from the hospital. Outpatient pulmonary follow-up was recommended. IMPRESSIONS: 1. Acute hypoxic respiratory failure Unclear etiology at this time. The patient does have presumptive COPD of unknown severity along with chronic systolic heart failure. Presenting symptomatology may be secondary to a combination of both COPD and heart failure in exacerbated states. Sputum culture was unrevealing. Antibiotics were therefore discontinued. Agree with continuing scheduled bronchodilators. At this time, the patient's subjective complaints of dyspnea seem out of proportion to his physical examination and supplemental oxygen requirement. The patient has been refusing to utilize nocturnal BiPAP therapy as recommended. 2. Suspected acute on chronic systolic congestive heart failure Patient does have an EF of 15% with elevated BNP on presentation. Will need to watch patient closely for flash pulmonary edema if he develops tachycardia. Doubt repeat echocardiogram would be helpful acutely as heart function is so depressed at baseline. 3. History of medical noncompliance/tobacco abuse/reported history of amphetamine use Complicates care, management, recovery and prognosis. Continue nicotine replacement therapy while admitted to the hospital. This note was generated with myeasydocs dictation software. It may contain incorrect words, spelling, and punctuation that were not noted in checking the note before signing. Code Visit Inpatient E&M: 60283 Subs Hosp L2
[2019-05-12 07:00] LABS: Bedside Glucose 81 mg/dL (70-110)
[2019-05-12] MEDS: Aspirin E.C. 81 MG Tablet PO (08:23)
[2019-05-12] MEDS: predniSONE 10 MG Tablet PO (08:23)
[2019-05-12] MEDS: Clopidogrel Bisulfate 75 MG Tablet PO (08:23)
[2019-05-12] MEDS: Losartan Potassium 25 MG Tablet PO (08:23)
[2019-05-12] MEDS: Isosorbide Mononitrate 30 MG Tablet PO (08:23)
[2019-05-12] MEDS: Carvedilol 6.25 MG Tablet PO (08:23)
[2019-05-12] MEDS: Ferrous Gluconate 324 MG Tablet PO (08:24)
--- NOTE | 2019-05-12 09:51 | CASEMGMT ---
Social Work Call to Ayleen at [facility]. Ayleen placed call to Tameka Oquendo CNP this morning. Tameka Oquendo not available but per staff, Pt saw [facility] one time over a year ago and did not show up for followup appointments. Pt has not shown for scheduled appointments with Dr. Davis to this point. Palliative care will need a PCP to follow prior to admission to the program. Ayleen at Palliative care will touch base with Tameka Oquendo later today for decision if she will follow for palliative referral. SARAHI Santana
--- NOTE | 2019-05-12 11:35 | DCINST_ITS ---
- Discharge Diagnoses Current Active Problems: Current Active and Chronic Problems (Last Reviewed 05/09/19 @ 00:04 by Marcus Mi MD) Acute respiratory failure (Acute) Lactic acidosis (Acute) Shock, unspecified (Acute) Lactic acidosis (Acute) Respiratory failure with hypoxia (Acute) Acute exacerbation of chronic obstructive pulmonary disease (COPD) (Chronic) Bronchospasm (Acute) You will use the following diet at home:: Cardiac, Fluid restricted (specify 2000 mls, 1500 mls) - 1500 Your food should be the consistency of: Regular Your liquids should be the consistency of: Regular/Thin Discharge Activity: Return to Normal Activity Call your doctor if you observe: Fever of 101 or Higher, Shortness of breath Allergies/Adverse Reactions: Allergies No Known Allergies Allergy (Verified 04/08/19 09:46) Medications to take at Discharge Albuterol Inhaler [Ventolin Hfa] 1 - 2 puff INHALATION Q4H PRN PRN #1 inhaler 05/06/19 Albuterol Inhaler [Ventolin Hfa] 2 puff INHALATION 4X/DAY 05/09/19 Aspirin E.C. [Ecotrin] 81 mg PO DAILY 05/09/19 Atorvastatin Calcium [Lipitor] 80 mg PO QHS 05/09/19 Carvedilol [Coreg (Beta Fletcher)] 6.25 mg PO BID 05/09/19 Clopidogrel Bisulfate [Plavix] 75 mg PO DAILY 05/09/19 Ferrous Gluconate 324 mg PO BIDCM 05/09/19 Furosemide [Lasix] 40 mg PO BID 05/09/19 Isosorbide Mononitrate [Imdur] 30 mg PO DAILY 05/09/19 Losartan Potassium [Cozaar] 25 mg PO DAILY 05/09/19 Potassium Chloride [K-Dur] 20 meq PO DAILY 05/09/19 Primary Care Physician: Ramy Davis MD [Primary Care Provider] - 05/15/19 Test Results: Test results from this visit will be discussed in further detail at your follow- up appointment, if applicable. Please Follow Up With: Ramy Davis MD When: Please Follow Up With: Gali Joe PA When: 05/20/19 Please Follow Up With: Ashish Uriarte MD When: 4-6 weeks Proposed Discharge Date: 05/12/19
--- NOTE | 2019-05-12 11:38 | DS.PCM_ITS ---
Discharge Date and Diagnosis - Problem List Patient Problems: Active and Suspected Problems (Last Reviewed 05/09/19 @ 00:04 by Marcus Mi MD) Acute respiratory failure (Acute) Lactic acidosis (Acute) Lactic acidosis (Acute) Respiratory failure with hypoxia (Acute) Bronchospasm (Acute) Date of Admission: 05/08/19 Date of Discharge: 05/12/19 - Primary Discharge Diagnosis Active and Suspected Problems (Last Reviewed 05/09/19 @ 00:04 by Marcus Mi MD) Acute respiratory failure (Acute) Lactic acidosis (Acute) Shock, unspecified (Acute) Lactic acidosis (Acute) Respiratory failure with hypoxia (Acute) Bronchospasm (Acute) - Secondary Discharge Diagnosis Chronic Problems (Last Reviewed 05/09/19 @ 00:04 by Marcus Mi MD) Acute exacerbation of chronic obstructive pulmonary disease (COPD) (Chronic) Acute and chronic respiratory failure with hypoxia (Chronic) COPD exacerbation (Chronic) Dyspnea (Chronic) History of ischemic cardiomyopathy (Chronic) Anemia, unspecified (Chronic) Unintentional weight loss (Chronic) Amphetamine abuse (Chronic) Chronic respiratory failure with hypoxia (Chronic) Acute and chronic respiratory failure with hypoxia (Chronic) Acute on chronic systolic CHF (congestive heart failure) (Chronic) Elevated troponin (Chronic) ICD (implantable cardioverter-defibrillator) in place (Chronic) History of coronary artery stent placement (Chronic) PCI-RCA and CX Atherosclerosis of coronary artery of grindstone heart without angina pectoris (Chronic) LEFT HEART ASSESSMENT Left Ventricular Ejection Fraction: by LV Gram 10-15 % Global Hypokinesis - Severe Depressed Left Ventricular systolic function Normal Left Ventricular End Diastolic Pressure LEFT MAIN: Non-obstructive LEFT ANTERIOR DECENDING ARTERY: Previously placed stent is patent DIAGONAL 1: Ostial - Mild luminal irregularities less than 30% DIAGONAL 2: Proximal - Non-obstructive CIRCUMFLEX ARTERY: MID CIRC: Previously placed stent is patent RIGHT CORONARY ARTERY: MID RCA: Previously placed stent has instent 20 % restenosis with a new at distal edge of stent Iron deficiency anemia (Chronic) COPD (chronic obstructive pulmonary disease) (Chronic) Tobacco abuse (Chronic) Medical non-compliance (Chronic) Ischemic cardiomyopathy (Chronic) Hospital Course and Treatment Imaging Results: Clinical Impression(s) from Imaging Studies Chest X-Ray 05/08/19 18:45 IMPRESSION: Mild COPD and superimposed ASHD. No acute disease. Electronically Signed: Lewis Gallardo MD at 19:00 EDT , Service support , Chest CTA 05/08/19 22:03 IMPRESSION: Minor interstitial changes with mild focal interstitial infiltrate or atelectasis in the left upper and lower lobes. No definitive evidence for pulmonary embolus given less than optimal study due to motion artifact. If strong clinical suspicion for pulmonary embolus Doppler study of the deep venous system of lower extremities may be helpful for further evaluation Electronically Signed: Lewis Gallardo MD at 22:43 EDT , Service support , Fco Real: pulmonology. Operations: None Procedures: None Summary of Care Provided: The patient is a 58 year old M presents with shortness of breath. Patient was hypoxic, tachypneic and I had a pulse ox of 86%. Was placed on a BiPAP. Patient did improve afterwards. Patient was started on methylprednisolone and BiPAP and admitted to the ICU. Patient did very well quickly. Patient was seen in consultation by pulmonology. Patient has done well and has maintained normal pulse ox on room air, at rest. Plan is for the patient to be discharged today, he will have an amatory pulse ox to see if he may require oxygen with activity or not. Patient does have a complex history in regards to his COPD as well as heart failure with reduced ejection fraction, where he has an EF of 15%. Patient also does have a noncompliance and though has stated in the past that he has been compliant with his medications though other documentation refutes that. [] Patient Problems: Active and Suspected Problems (Last Reviewed 05/09/19 @ 00:04 by Marcus juan MD) Acute respiratory failure (Acute) Lactic acidosis (Acute) Lactic acidosis (Acute) Respiratory failure with hypoxia (Acute) Bronchospasm (Acute) - Physical Exam General: Alert, No apparent distress HEENT: Atraumatic, Normocephalic Oral: Moist Mucosa, No Gingival or Mucosal Lesions/ Ulcerations Neck: No Nodes, Thyroid Normal Size and Texture Lungs: Clear to auscultation, Normal air movement, No rhonchi, No wheeze, No rales, Diminished Cardiovascular: Regular rate, Regular Rhythm, Normal S1, Normal S2, No murmurs Abdomen: Bowel Sounds Present, Soft, Non Tender, Non-Distended Extremities: No edema, No Calf Tenderness Skin: No rashes, No breakdown Vital Signs Temp Pulse Resp BP Pulse Ox 36.4 C L 84 20 H 105/72 94 05/12/19 10:30 05/12/19 10:57 05/12/19 10:57 05/12/19 10:30 05/12/19 10:30 Oxygen Flow Rate (L/min) 2 Oxygen Delivery Method Room Air Weight: 72.8 kg Body Mass Index (BMI) 29.0 Finger Stick Blood Glucose 123 Intake and Output for Last 24 Hours 05/10/19 05/11/19 05/12/19 23:59 23:59 23:59 Intake Total 2312 / 2312 760 / 760 120 / 120 Output Total 1625 / 1625 700 / 700 Balance 687 / 687 60 / 60 120 / 120 Microbiology Past 72 Hours 05/08/19 18:45 Blood Culture - Preliminary Blood Culture (Wb) - Anticubital Right No growth in 48 hours. 05/08/19 18:40 Blood Culture - Preliminary Blood Culture (Wb) - Arm Left No growth in 48 hours. 05/09/19 04:40 Urine Culture - Final Urine, Clean Catch Culture exhibits no growth. POC Glucose 05/12/19 05/11/19 05/11/19 06:53 21:39 17:21 POC Glucose 81 113 H 93 Discharge Diet: Low fat/ Low Cholesterol, 6 Cup Fluid Restriction, 2000 mg Sodium Diet Discharge Activity: Return to Normal Activity Call your doctor if you observe: Fever of 101 or Higher, Shortness of breath Home Medications: Medications to take at Discharge Albuterol Inhaler [Ventolin Hfa] 1 - 2 puff INHALATION Q4H PRN PRN #1 inhaler 05/06/19 Albuterol Inhaler [Ventolin Hfa] 2 puff INHALATION 4X/DAY 05/09/19 Aspirin E.C. [Ecotrin] 81 mg PO DAILY 05/09/19 Atorvastatin Calcium [Lipitor] 80 mg PO QHS 05/09/19 Carvedilol [Coreg (Beta Fletcher)] 6.25 mg PO BID 05/09/19 Clopidogrel Bisulfate [Plavix] 75 mg PO DAILY 05/09/19 Ferrous Gluconate 324 mg PO BIDCM 05/09/19 Furosemide [Lasix] 40 mg PO BID 05/09/19 Isosorbide Mononitrate [Imdur] 30 mg PO DAILY 05/09/19 Losartan Potassium [Cozaar] 25 mg PO DAILY 05/09/19 Potassium Chloride [K-Dur] 20 meq PO DAILY 05/09/19 Primary Care Physician: Ramy Davis MD [Primary Care Provider] - 05/15/19 Please Follow Up With: Ramy Davis MD When: Please Follow Up With: Gali Joe PA When: 05/20/19 Please Follow Up With: Ashish Uriarte MD When: 4-6 weeks Disposition: Home Minutes spent on discharge:: 32 Patient Condition:: Fair Medical Necessity - Tobacco Use Smoking Status: Current every day smoker Meaningful Use Info Meaningful Use Diagnoses (Choose all that apply): CHF - CHF YUE/ARB ordered at discharge?: Yes Documented LVEF (%): 15 Code Visit Inpatient E&M: 78643 Disch Hosp
--- NOTE | 2019-05-12 11:58 | CASEMGMT ---
SOCIAL WORK THIS WORKER MET WITH PATIENT IN ROOM. RE-INTRODUCED ROLE AND REASON FOR REFERRAL. DISCUSSED SAFE D/C PLANNING AND INQUIRED ABOUT PLAN FOR HOME GOING. PATIENT STATES IS NOT FEELING WELL AND DOES NOT FEEL SAFE WHERE HE IS LIVING AND DOES NOT WISH TO RETURN. EDUCATION PROVIDED ON OPTIONS FOR INTERMEDIATE PLACEMENT. PATIENT IN AGREEMENT. UPDATED PATIENT ON PALLIATIVE REFERRAL FROM SUNDAY AND INFORMED WORKER TO BE IN TODAY. PATIENT RECALLED PREVIOUS CONVERSATION ABOUT PALLIATIVE MEDICINE AND REMAINS IN AGREEMENT WITH REFERRAL. PATIENT APPEARED ANXIOUS AND RESTLESS DURING CONVERSATION. MUCH EMOTIONAL SUPPORT PROVIDED. JOEY, FROM [facility] HERE TO DISCUSS PALLIATIVE MEDICINE. THIS WORKER PRESENT FOR CONSULT. AFTER DISCUSSION, PATIENT OPEN TO HOSPICE SERVICES AND REQUESTS BROTHER/HPOA, GREGORIO VASQUEZ BE CALLED FOR UPDATE. JOEY REPORTS WILL BE IN CONTACT WITH BROTHER AND BELIEVES PATIENT WOULD BENEFIT FROM HOSPICE IPU. REGISTERED RESPIRATORY TECHNICIAN TO CONTINUE TO FOLLOW. BALDO ROBERTSON, MIX TECHNICIAN, BUNDLE TIER.
[2019-05-12 13:36] LABS: Bedside Glucose 104 mg/dL (70-110)
--- NOTE | 2019-05-12 15:45 | NURSING ---
pt irritated and walking in halls saying that he is leaving. multiple attempts to educate patient. pt to elevator saying he is leaving and he will find his way home. pt back to room, IV removed, snacks provided and informed that transport will be here at [phone] pm
--- NOTE | 2019-05-12 15:59 | CASEMGMT ---
Social Work YASMEEN spoke with Chrissy from Palliative Medicine. Chrissy met with pt and pt is agreeable to hospice services and to go to inpatient unit. Per Chrissy, pt would like his brother Angel's consent prior to final decision. Return call from Ayleen at hospice who states Chrissy spoke with Angel and he is agreeable to inpt hospice placement. Per Ayleen's request, YASME[place] [facility] [place]:30 potato picker. D/C information faxed to hospice inpatient unit. Pt is anxious and ready to leave hosptial. Nursing aware. SARAHI Santana
--- NOTE | 2019-05-12 16:08 | NURSING ---
called report to bolt threader.
== END 2019-05-12 16:55 | disposition hospice, inpatient (51) | DRG 189 ==
LOC: ED 20:15 → ICU 21:24 → PCU 05-12 01:26 → ICU 05-12 10:34 → PCU 05-12 10:34
PROVIDERS: Internal Medicine; Internal Medicine Critical Care Medicine; Admitting Provider Hospitalist; Emergency Provider Emergency Medicine; Family Provider Internal Medicine; PCP Internal Medicine
DX: J96.01 Acute respiratory failure with hypoxia (principal); I50.23 Acute on chronic systolic (congestive) heart failure; J44.1 Chronic obstructive pulmonary disease with (acute) exacerbation; E87.1 Hypo-osmolality and hyponatremia; E87.2 Acidosis; R57.9 Shock, unspecified; I25.5 Ischemic cardiomyopathy; F17.210 Nicotine dependence, cigarettes, uncomplicated; Z95.810 Presence of automatic (implantable) cardiac defibrillator; Z95.5 Presence of coronary angioplasty implant and graft; E87.5 Hyperkalemia; E16.2 Hypoglycemia, unspecified; I11.0 Hypertensive heart disease with heart failure; I25.10 Atherosclerotic heart disease of native coronary artery without angina pectoris; F41.9 Anxiety disorder, unspecified; D64.9 Anemia, unspecified; Z87.01 Personal history of pneumonia (recurrent); Z86.19 Personal history of other infectious and parasitic diseases; Z87.09 Personal history of other diseases of the respiratory system; Z99.81 Dependence on supplemental oxygen; Z79.82 Long term (current) use of aspirin; Z79.02 Long term (current) use of antithrombotics/antiplatelets; Z79.899 Other long term (current) drug therapy
CPT/HCPCS: 36415; 36600; 71045; 71275; 80048; 80053; 81001; 82533; 82803; 82962; 83605; 83880; 84484; 85025; 85610; 85730; 87040; 87086; 92523; 93005; 93925; 93970; 94002; 94003; 94640; 94667; 94668; 96374; 96375; 97162; 97166; 97530; 97802; 99285; J7030; Q9967; A4216; J2405; J7799